=== PATIENT | female | born 1955 | race African-American/Black ===

== ENCOUNTER 2016-05-17 10:55 | Emergency (ER) | payer MEDICARE, MEDICAID ==
[2016-05-17] MEDS ORDERED: METOPROLOL TARTRATE 50 MG TABLET PO ONE (11:43)
[2016-05-17] MEDS ORDERED: OXYCODONE HCL IR 5 MG TABLET PO ONE (11:43)
--- NOTE | 2016-05-17 11:43 | ER Document Report ---
ED Blood Pressure Problem - General Chief Complaint: High Blood Pressure Stated Complaint: BLOOD PRESSURE PROBLEMS Notes: This is a 60-year-old female history of hypertension, congestive heart failure, history of coronary artery bypass graft, history of CVA who presents from home with concerns of elevated blood pressure. She states she had a dull nagging gradual onset headache this morning. Her blood pressure was 210/127. She states this is very unusual for her as her blood pressure is usually pre-well- controlled on her medications. She did take her normal pain medications morning. She states her foot has been bothering her and she was having some pain prior to checking her blood pressure. She did take her pain medicine and states that the foot is feeling improved although she still has a slight dull pain in the foot. She has been wearing a postop shoe and having wound care clinic visits due to wounds of the left foot as well as a healing burn on the right foot. No recent fever. No swelling. She denies any current headache, visual changes a difficulty with speech or swallowing. No new numbness, weakness or tingling. No chest pain, palpitations or shortness of breath. TRAVEL OUTSIDE OF THE [place] IN LAST 30 DAYS: No - Related Data Allergies/Adverse Reactions: pregabalin [From Lyrica] Allergy (Verified 12/18/15 15:13) Past Medical History - General Information source: Patient - Social History Smoking Status: Unknown if Ever Smoked Frequency of alcohol use: None Drug Abuse: None Lives with: Family, Other - Lives at home with her son Family History: CAD, Hyperlipidemia, Hypertension - Past Medical History Cardiac Medical History: Reports: Hx Congestive Heart Failure, Hx Coronary Artery Disease, Hx Heart Attack, Hx Hypercholesterolemia, Hx Hypertension, Hx Peripheral Vascular Disease Denies: Hx Atrial Fibrillation, Hx Pulmonary Embolism, Hx Heart Murmur Pulmonary Medical History: Reports: Hx Bronchitis Denies: Hx Asthma, Hx COPD, Hx Pneumonia, Hx Respiratory Failure, Hx Sleep Apnea, Hx Tuberculosis Neurological Medical History: Reports: Hx Cerebrovascular Accident - 2007. Denies: Hx Seizures Endocrine Medical History: Reports: Hx Diabetes Mellitus Type 1, Hx Diabetes Mellitus Type 2. Denies: Hx Graves' Disease, Hx Hyperthyroidism, Hx Hypothyroidism Renal/ Medical History: Denies: Hx End Stage Renal Disease, Hx Kidney Stones, Hx Ovarian Cysts, Hx Peritoneal Dialysis, Hx Pelvic Inflammatory Disease Malignancy Medical History: Denies: Hx Breast Cancer, Hx Cervical Cancer, Hx Leukemia, Hx Lung Cancer, Hx Ovarian Cancer GI Medical History: Reports: Hx Diverticulitis - diverticulosis. Denies: Hx Crohn's Disease, Hx Gastroesophageal Reflux Disease, Hx Hiatal Hernia, Hx Irritable Bowel, Hx Liver Failure, Hx Ulcer Musculoskeltal Medical History: Denies Hx Arthritis, Denies Hx Fibromyalgia, Denies Hx Multiple Sclerosis, Denies Hx Muscular Dystrophy Skin Medical History: Denies Hx MRSA Psychiatric Medical History: Denies: Hx Bipolar Disorder, Hx Dementia, Hx Depression, Hx Post Traumatic Stress Disorder, Hx Schizophrenia Traumatic Medical History: Denies: Hx Fractures Infectious Medical History: Denies: Hx HIV Past Surgical History: Reports: Hx Cardiac Surgery - bypass, Hx Coronary Artery Bypass Graft - July 31 2011, Hx Tonsillectomy, Hx Vascular Surgery. Denies: Hx Abdominal Surgery, Hx Appendectomy, Hx Bowel Surgery, Hx Cardiac Catheterization, Hx Section, Hx Cholecystectomy, Hx Colostomy, Hx Gastric Bypass Surgery, Hx Herniorrhaphy, Hx Hysterectomy, Hx Mastectomy, Hx Neurologic Surgery, Hx Nose Surgery, Hx Open Heart Surgery, Hx Oral Surgery, Hx Pacemaker, Hx Thyroid Surgery, Hx Tubal Ligation - Immunizations Immunizations up to date: No Hx Diphtheria, Pertussis, Tetanus Vaccination: Yes Hx Pneumococcal Vaccination: 02/04/11 Review of Systems - Review of Systems Constitutional: denies: Fever, Malaise Cardiovascular: denies: Chest pain, Palpitations, Syncope Respiratory: denies: Short of breath Gastrointestinal: denies: Vomiting Genitourinary: denies: Burning Musculoskeletal: See HPI Skin: denies: Rash Neurological/Psychological: denies: Numbness, Tingling Physical Exam - Vital signs Vitals: Temp Pulse Resp BP Pulse Ox 97.9 F 94 21 H 176/87 H 96 05/17/16 11:00 05/17/16 11:00 05/17/16 11:00 05/17/16 11:00 05/17/16 11:00 - General General appearance: Appears well, Alert In distress: None - Well-appearing, normally conversant, no acute distress - HEENT Head: Normocephalic Pupils: PERRL Nasal: Normal Mouth/Lips: Normal Mucous membranes: Normal Pharynx: Normal Neck: Normal - Respiratory Respiratory status: No respiratory distress Breath sounds: Normal - Cardiovascular Rhythm: Regular - Abdominal Inspection: Normal Tenderness: Nontender - Back Back: Normal - Extremities General upper extremity: Normal inspection Foot: Other - There is a small burn on the dorsum of the right foot which is dressed, no surrounding erythema, induration or tenderness; there is a wound on the right foot which is stressed, no surrounding warmth, erythema or tenderness ; lower extremity has 1+ nonpitting edema - Neurological Neuro grossly intact: Yes Orientation: AAOx4 - Psychological Associated symptoms: Normal affect - Skin Skin Temperature: Warm Skin Moisture: Dry Skin Color: Normal Course - Re-evaluation Re-evalutation: 05/17/16 14:15 152/91. Pt aymptomatic. Stable for discharge. - Vital Signs Vital signs: Temp Pulse Resp BP Pulse Ox 97.9 F 94 15 176/87 H 97 05/17/16 11:00 05/17/16 11:00 05/17/16 11:04 05/17/16 11:04 05/17/16 11:04 - Laboratory Result Diagrams: 05/17/16 11:15 Laboratory results interpreted by me: 05/17/16 12:05 Urine Protein 100 H Urine Blood SMALL H Discharge - Discharge Clinical Impression: Hypertension Qualifiers: Hypertension type: essential hypertension Qualified Code(s): I10 - Essential ( primary) hypertension Condition: Good Disposition: HOME, SELF-CARE Additional Instructions: follow up with your doctor for further reccomendations if your blood pressure is persistently elevated. Return to ER if you have high blood pressure with symptoms such as headache, chest pain, visual disturbance or any new concerns. Referrals: STEPHAN TAFOYA MD [Primary Care Provider] - Follow up as needed
[2016-05-17 12:04] LABS: ANION GAP 11 (5-19); BLOOD UREA NITROGEN 13 mg/dL (7-20); CALCIUM 9.5 mg/dL (8.4-10.2); CARBON DIOXIDE 28 mmol/L (22-30); CHLORIDE 106 mmol/L (98-107); CREATININE RESULT 0.65 mg/dL (0.52-1.25); GLUCOSE 110 mg/dL (75-110); POTASSIUM 3.7 mmol/L (3.6-5.0)
[2016-05-17 12:53] LABS: APPEARANCE,URINE CLEAR; BILIRUBIN,URINE NEGATIVE (NEGATIVE); GLUCOSE, URINE NEGATIVE (NEGATIVE); KETONES,URINE NEGATIVE (NEGATIVE); LEUKOCYTE ESTERASE,URINE NEGATIVE (NEGATIVE); NITRITE,URINE NEGATIVE (NEGATIVE); PROTEIN,URINE 100 mg/dL (NEGATIVE); URINE SPECIFIC GRAVITY 1.011; UROBILINOGEN,URINE NEGATIVE mg/dL (<2.0)
--- NOTE | 2016-05-17 13:39 | EKG REPORT ---
SEVERITY:- ABNORMAL ECG - SINUS RHYTHM PROBABLE LEFT ATRIAL ABNORMALITY LEFT VENTRICULAR HYPERTROPHY BORDERLINE PROLONGED QT INTERVAL : Confirmed by: Charlette Harding MD 17-May-2016 13:38:20
[2016-05-17 14:46] VITALS: BP 172/98
== END 2016-05-17 14:30 | disposition home or self-care (01) ==
LOC: ER 10:55
DX: I10 Essential (primary) hypertension (principal); R60.0 Localized edema; Z79.899 Other long term (current) drug therapy; Z95.1 Presence of aortocoronary bypass graft; Z86.73 Personal history of transient ischemic attack (TIA), and cerebral infarction without residual deficits; Z88.6 Allergy status to analgesic agent
CPT/HCPCS: 93005; 99284; 36415; 80048; 81001; 84484; 71020; 93010; A9270 ×2

== ENCOUNTER 2016-06-12 12:05 | Emergency (ER) | payer MEDICARE, MEDICAID ==
[2016-06-12] MEDS ORDERED: ONDANSETRON 4 MG TAB.RAPDIS PO ONE (12:16)
--- NOTE | 2016-06-12 12:17 | ER Document Report ---
ED Medical Screen (RME) - General Stated Complaint: NAUSEA,LEG PAIN,LIGHT HEADED Mode of Arrival: Wheelchair Information source: Patient Notes: Patient states that her feet got tangled up while she was at her doctor's office causing her to fall. Patient states that she fell landing on her face. No loss of consciousness. Patient does report nausea and vomiting 2. Patient states she was at her doctor's office for her routine checkup. hx: Hypertension, diabetes I have greeted and performed a rapid initial assessment of this patient. A comprehensive ED assessment and evaluation of the patient, analysis of test results and completion of the medical decision making process will be conducted by additional ED providers. TRAVEL OUTSIDE OF THE [place] IN LAST 30 DAYS: No - Related Data Allergies/Adverse Reactions: pregabalin [From Lyrica] Allergy (Verified 06/12/16 12:16) Past Medical History - Past Medical History Cardiac Medical History: Reports: Hx Congestive Heart Failure, Hx Coronary Artery Disease, Hx Heart Attack, Hx Hypercholesterolemia, Hx Hypertension, Hx Peripheral Vascular Disease Denies: Hx Atrial Fibrillation, Hx Pulmonary Embolism, Hx Heart Murmur Pulmonary Medical History: Reports: Hx Bronchitis Denies: Hx Asthma, Hx COPD, Hx Pneumonia, Hx Respiratory Failure, Hx Sleep Apnea, Hx Tuberculosis Neurological Medical History: Reports: Hx Cerebrovascular Accident - 2007. Denies: Hx Seizures Endocrine Medical History: Reports: Hx Diabetes Mellitus Type 1, Hx Diabetes Mellitus Type 2. Denies: Hx Graves' Disease, Hx Hyperthyroidism, Hx Hypothyroidism Renal/ Medical History: Denies: Hx End Stage Renal Disease, Hx Kidney Stones, Hx Ovarian Cysts, Hx Peritoneal Dialysis, Hx Pelvic Inflammatory Disease Malignancy Medical History: Denies: Hx Breast Cancer, Hx Cervical Cancer, Hx Leukemia, Hx Lung Cancer, Hx Ovarian Cancer GI Medical History: Reports: Hx Diverticulitis - diverticulosis. Denies: Hx Crohn's Disease, Hx Gastroesophageal Reflux Disease, Hx Hiatal Hernia, Hx Irritable Bowel, Hx Liver Failure, Hx Ulcer Musculoskeltal Medical History: Denies Hx Arthritis, Denies Hx Fibromyalgia, Denies Hx Multiple Sclerosis, Denies Hx Muscular Dystrophy Skin Medical History: Denies Hx MRSA Psychiatric Medical History: Denies: Hx Bipolar Disorder, Hx Dementia, Hx Depression, Hx Post Traumatic Stress Disorder, Hx Schizophrenia Traumatic Medical History: Denies: Hx Fractures Infectious Medical History: Denies: Hx HIV Past Surgical History: Reports: Hx Cardiac Surgery - bypass, Hx Coronary Artery Bypass Graft - July 31 2011, Hx Tonsillectomy, Hx Vascular Surgery. Denies: Hx Abdominal Surgery, Hx Appendectomy, Hx Bowel Surgery, Hx Cardiac Catheterization, Hx Section, Hx Cholecystectomy, Hx Colostomy, Hx Gastric Bypass Surgery, Hx Herniorrhaphy, Hx Hysterectomy, Hx Mastectomy, Hx Neurologic Surgery, Hx Nose Surgery, Hx Open Heart Surgery, Hx Oral Surgery, Hx Pacemaker, Hx Thyroid Surgery, Hx Tubal Ligation - Immunizations Immunizations up to date: No Hx Diphtheria, Pertussis, Tetanus Vaccination: Yes Physical Exam - Neurological Amber Coma Scale Eye Opening: Spontaneous Amber Coma Scale Verbal: Oriented [place] Coma Scale Motor: Obeys Commands [place] Coma Scale Total: 15
--- NOTE | 2016-06-12 15:00 | ER Document Report ---
HPI - HPI Patient complains to provider of: fall Pain Level: 4 Context: Patient is a 60 year old female referred over by Dr. Tafoya for CT head. Patient was in his office for routine follow up and suffered a mechanical fall. She has a boot on her left foot when she tripped and landed on her left side with trauma to the left side of her face. She admits to headache, vomiting x2. Denies AMS, confusion, LOC, vision changes PMH: HTN< HLD< DM, CAD with ID x2 requiring CABG x4, PVD PSH: CABG x4, vascular SH: former occ smoker, denies etoh or drug use PCP: Zuhair - REPRODUCTIVE Reproductive: DENIES: : - DERM Skin Color: Normal Past Medical History - General Information source: Patient - Social History Smoking Status: Current Some Day Smoker Chew tobacco use (# tins/day): No Frequency of alcohol use: None Drug Abuse: None Family History: CAD, Hyperlipidemia, Hypertension Patient has suicidal ideation: No Patient has homicidal ideation: No - Past Medical History Cardiac Medical History: Reports: Hx Congestive Heart Failure, Hx Coronary Artery Disease, Hx Heart Attack, Hx Hypercholesterolemia, Hx Hypertension, Hx Peripheral Vascular Disease Denies: Hx Atrial Fibrillation, Hx Pulmonary Embolism, Hx Heart Murmur Pulmonary Medical History: Reports: Hx Bronchitis Denies: Hx Asthma, Hx COPD, Hx Pneumonia, Hx Respiratory Failure, Hx Sleep Apnea, Hx Tuberculosis Neurological Medical History: Reports: Hx Cerebrovascular Accident - 2007. Denies: Hx Seizures Endocrine Medical History: Reports: Hx Diabetes Mellitus Type 1, Hx Diabetes Mellitus Type 2. Denies: Hx Graves' Disease, Hx Hyperthyroidism, Hx Hypothyroidism Renal/ Medical History: Denies: Hx End Stage Renal Disease, Hx Kidney Stones, Hx Ovarian Cysts, Hx Peritoneal Dialysis, Hx Pelvic Inflammatory Disease Malignancy Medical History: Denies: Hx Breast Cancer, Hx Cervical Cancer, Hx Leukemia, Hx Lung Cancer, Hx Ovarian Cancer GI Medical History: Reports: Hx Diverticulitis - diverticulosis. Denies: Hx Crohn's Disease, Hx Gastroesophageal Reflux Disease, Hx Hiatal Hernia, Hx Irritable Bowel, Hx Liver Failure, Hx Ulcer Musculoskeltal Medical History: Denies Hx Arthritis, Denies Hx Fibromyalgia, Denies Hx Multiple Sclerosis, Denies Hx Muscular Dystrophy Skin Medical History: Denies Hx MRSA Psychiatric Medical History: Denies: Hx Bipolar Disorder, Hx Dementia, Hx Depression, Hx Post Traumatic Stress Disorder, Hx Schizophrenia Traumatic Medical History: Denies: Hx Fractures Infectious Medical History: Denies: Hx HIV Past Surgical History: Reports: Hx Cardiac Surgery - bypass, Hx Coronary Artery Bypass Graft - July 31 2011, Hx Tonsillectomy, Hx Vascular Surgery. Denies: Hx Abdominal Surgery, Hx Appendectomy, Hx Bowel Surgery, Hx Cardiac Catheterization, Hx Section, Hx Cholecystectomy, Hx Colostomy, Hx Gastric Bypass Surgery, Hx Herniorrhaphy, Hx Hysterectomy, Hx Mastectomy, Hx Neurologic Surgery, Hx Nose Surgery, Hx Open Heart Surgery, Hx Oral Surgery, Hx Pacemaker, Hx Thyroid Surgery, Hx Tubal Ligation - Immunizations Immunizations up to date: No Hx Diphtheria, Pertussis, Tetanus Vaccination: Yes Hx Pneumococcal Vaccination: 02/04/11 Vertical Provider Document - CONSTITUTIONAL Agree With Documented VS: Yes Exam Limitations: No Limitations General Appearance: WD/WN, No Apparent Distress, Obese - INFECTION CONTROL TRAVEL OUTSIDE OF THE [place] IN LAST 30 DAYS: No - HEENT HEENT: Atraumatic, Normal ENT Exam, Normocephalic - NECK Neck: Normal Inspection, Other - full ROM , no pain to palpation - RESPIRATORY Respiratory: Breath Sounds Normal, No Respiratory Distress, Chest Non-Tender. negative: Rales, Rhonchi, Wheezing O2 Sat by Pulse Oximetry: 90 - CARDIOVASCULAR Cardiovascular: Regular Rate, Regular Rhythm, No Murmur Pulses: Normal: Radial - MUSCULOSKELETAL/EXTREMETIES Notes: boot left foot for chronic ulcer - NEURO Level of Consciousness: Awake - GCS x15, Alert, Appropriate Motor/Sensory: No Motor Deficit, No Sensory Deficit Course - Re-evaluation Re-evalutation: 06/12/16 15:13 Patient is a 60-year-old female who is hemodynamically stable, no acute distress and afebrile. CT the head did not reveal intracranial hemorrhage, fracture. Patient is alert and oriented 4 and not at all 3. Low index or suspicion for head bleed. Discharge patient home and can follow-up with Dr. Tafoya as scheduled - Vital Signs Vital signs: Temp Pulse Resp BP Pulse Ox 97.6 F 63 20 152/80 H 90 L 06/12/16 12:15 06/12/16 12:15 06/12/16 12:15 06/12/16 12:15 06/12/16 12:15 - Diagnostic Test Radiology reviewed: Reports reviewed Discharge - Discharge Clinical Impression: Headache Qualifiers: Headache type: unspecified Headache chronicity pattern: acute headache Intractability: not intractable Qualified Code(s): R51 - Headache Condition: Good Disposition: HOME, SELF-CARE Additional Instructions: Concussion You have suffered a concussion -- a temporary loss of certain brain functions due to a mild brain injury. The recovery is usually rapid and complete. The temporary problems occurring with a concussion can include loss of consciousness, dizziness, nausea, vomiting, and confusion. Repeat concussions can cause brain damage. In the future, avoid activities that will cause a blow to your head. Wear a helmet for sports such as snowboarding, biking, or skating. It's important that someone be with you for the first 24 hours. During this time, do not exercise or drive a vehicle. Do not take any pain medication stronger than acetaminophen unless prescribed by the physician. Any significant changes should be reported immediately to the physician. Signs of a problem may include: (1) Mental confusion (2) Incoordination or staggering (3) Repeated or forceful vomiting (4) Clear or bloody drainage from ear, mouth, or nose (5) Severe headache, not relieved by acetaminophen or prescribed pain medication (6) Failure to improve in 24 hours Acetaminophen Acetaminophen may be taken for pain relief or fever control. It's much safer than aspirin, offering a wider range of "safe" dosages. It is safe during . Some brand names are Tylenol, Panadol, Datril, Anacin 3, Tempra, and Liquiprin. Acetaminophen can be repeated every four hours. The following are maximum recommended dosages: WEIGHT Dose Drops Elixir Chewable( 80mg) (LBS.) drprs=droppers tsp=teaspoon 6 40 mg .4 ml (1/2) 6-11 80 mg .8 ml (full) 1/2 tsp 1 tab 12-16 120 mg 1 1/2 drprs 3/4 tsp 1 1/2 tabs 17-23 160 mg 2 drprs 1 tsp 2 tabs 24-30 240 mg 3 drprs 1 1/2 tsp 3 tabs 30-35 320 mg 2 tsp 4 tabs 36-41 360 mg 2 1/4 tsp 4 1 /2 tabs 42-47 400 mg 2 1/2 tsp 5 tabs 48-53 480 mg 3 tsp 6 tabs 54-59 520 mg 3 1/4 tsp 6 1 /2 tabs 60-64 560 mg 3 1/2 tsp 7 tabs 65-70 600 mg 3 3/4 tsp 7 1 /2 tabs 71-76 640 mg 4 tsp 8 tabs 77-82 720 mg 4 1/2 tsp 9 tabs 83-88 800 mg 5 tsp 10 tabs >89 pounds or adults 650 mg to 900 mg Acetaminophen can be repeated every four hours. Maximum daily dose not to exceed 4000 mg. These maximum recommended dosages are slightly higher than the dosages written on the product container, but these dosages are very safe and well below the toxic dosage for acetaminophen. Forms: Elevated Blood Pressure Referrals: STEPHAN TAFOYA MD [Primary Care Provider] - Follow up as needed
[2016-06-12 15:30] VITALS: BP 144/77
== END 2016-06-12 15:31 | disposition home or self-care (01) ==
LOC: ER 12:05
DX: R51 Headache (principal); R11.10 Vomiting, unspecified; W19.XXXA Unspecified fall, initial encounter; I10 Essential (primary) hypertension; E11.9 Type 2 diabetes mellitus without complications; I25.10 Atherosclerotic heart disease of native coronary artery without angina pectoris; I25.2 Old myocardial infarction; F17.210 Nicotine dependence, cigarettes, uncomplicated
CPT/HCPCS: 99284; 70450; A9270; S0119

== ENCOUNTER 2016-06-14 10:51 | Emergency (ER) | payer MEDICARE, MEDICAID ==
[2016-06-14 13:12] LABS: ABSOLUTE EOSINOPHILS # (AUTO) 0.1 10^3/uL (0.0-0.6); ABSOLUTE LYMPHOCYTES (AUTO) 1.9 10^3/uL (0.5-4.7); ABSOLUTE MONOCYTES (AUTO) 0.7 10^3/uL (0.1-1.4); ABSOLUTE NEUT (AUTO) 4.9 10^3/uL (1.7-8.2); BASOPHILS % (AUTO) 0.5 % (0-2); EOSINOPHILS % (AUTO) 1.4 % (0-6); HEMATOCRIT 32.1 % (36.0-47.0); HEMOGLOBIN 10.3 g/dL (12.0-15.5); HGB HCT DIFFERENCE -1.2; LYMPHOCYTES % (AUTO) 24.6 % (13-45); MEAN CORPUSCULAR VOLUME 87 fl (80-97); MONOCYTES % (AUTO) 9.3 % (3-13); RED BLOOD COUNT 3.67 10^6/uL (3.72-5.28); RED CELL DISTRIBUTION WIDTH 17.4 % (11.5-14.0); SEGMENTED NEUTROPHILS % (AUTO) 64.2 % (42-78); WHITE BLOOD COUNT 7.7 10^3/uL (4.0-10.5)
[2016-06-14 13:16] LABS: ALANINE AMINOTRANSFERASE 28 U/L (9-52); ALBUMIN 3.8 g/dL (3.5-5.0); ALKALINE PHOSPHATASE 214 U/L (38-126); ANION GAP 10 (5-19); ASPARTATE AMINO TRANSFERASE 26 U/L (14-36); BILIRUBIN,TOTAL 0.9 mg/dL (0.2-1.3); BLOOD UREA NITROGEN 23 mg/dL (7-20); CALCIUM 9.5 mg/dL (8.4-10.2); CARBON DIOXIDE 26 mmol/L (22-30); CHLORIDE 108 mmol/L (98-107); CREATININE RESULT 1.08 mg/dL (0.52-1.25); GLUCOSE 207 mg/dL (75-110); POTASSIUM 4.8 mmol/L (3.6-5.0); SODIUM 143.5 mmol/L (137-145); TOTAL PROTEIN 8.1 g/dL (6.3-8.2)
[2016-06-14 13:28] LABS: TROPONIN I < 0.012 ng/mL
--- NOTE | 2016-06-14 13:44 | EKG REPORT ---
SEVERITY:- BORDERLINE ECG - SINUS RHYTHM LEFT AXIS DEVIATION BORDERLINE R WAVE PROGRESSION, ANTERIOR LEADS : Confirmed by: Yobany Marino MD 14-Jun-2016 13:43:59
[2016-06-14] MEDS ORDERED: FUROSEMIDE 40 MG TABLET PO ONE (15:01)
--- NOTE | 2016-06-14 15:05 | ER Document Report ---
ED General - General Chief Complaint: Shortness Of Breath Stated Complaint: DIFFICULTY BREATHING TRAVEL OUTSIDE OF THE [place] IN LAST 30 DAYS: No - HPI Patient complains to provider of: shortness of breath Notes: Patient presents today from wound care clinic as a becoming short of breath while in the clinic. Patient had normal vital signs upon transport however was given 2 L of oxygen nasal cannula. Patient was given a breathing treatment prior to arrival. Upon evaluate the patient patient is in no obvious distress patient states has a history of CHF states that the doctor ever no longer clinic says her lungs were full of fluid. Patient states she has been compliant with her medications. Denies fevers chills nausea vomiting diarrhea. - Related Data Allergies/Adverse Reactions: pregabalin [From Lyrica] Allergy (Verified 06/12/16 12:16) Past Medical History - Social History Smoking Status: Unknown if Ever Smoked Family History: CAD, Hyperlipidemia, Hypertension - Past Medical History Cardiac Medical History: Reports: Hx Congestive Heart Failure, Hx Coronary Artery Disease, Hx Heart Attack, Hx Hypercholesterolemia, Hx Hypertension, Hx Peripheral Vascular Disease Denies: Hx Atrial Fibrillation, Hx Pulmonary Embolism, Hx Heart Murmur Pulmonary Medical History: Reports: Hx Bronchitis Denies: Hx Asthma, Hx COPD, Hx Pneumonia, Hx Respiratory Failure, Hx Sleep Apnea, Hx Tuberculosis Neurological Medical History: Reports: Hx Cerebrovascular Accident - 2007. Denies: Hx Seizures Endocrine Medical History: Reports: Hx Diabetes Mellitus Type 1, Hx Diabetes Mellitus Type 2. Denies: Hx Graves' Disease, Hx Hyperthyroidism, Hx Hypothyroidism Renal/ Medical History: Denies: Hx End Stage Renal Disease, Hx Kidney Stones, Hx Ovarian Cysts, Hx Peritoneal Dialysis, Hx Pelvic Inflammatory Disease Malignancy Medical History: Denies: Hx Breast Cancer, Hx Cervical Cancer, Hx Leukemia, Hx Lung Cancer, Hx Ovarian Cancer GI Medical History: Reports: Hx Diverticulitis - diverticulosis. Denies: Hx Crohn's Disease, Hx Gastroesophageal Reflux Disease, Hx Hiatal Hernia, Hx Irritable Bowel, Hx Liver Failure, Hx Ulcer Musculoskeltal Medical History: Denies Hx Arthritis, Denies Hx Fibromyalgia, Denies Hx Multiple Sclerosis, Denies Hx Muscular Dystrophy Skin Medical History: Denies Hx MRSA Psychiatric Medical History: Denies: Hx Bipolar Disorder, Hx Dementia, Hx Depression, Hx Post Traumatic Stress Disorder, Hx Schizophrenia Traumatic Medical History: Denies: Hx Fractures Infectious Medical History: Denies: Hx HIV Past Surgical History: Reports: Hx Cardiac Surgery - bypass, Hx Coronary Artery Bypass Graft - July 31 2011, Hx Tonsillectomy, Hx Vascular Surgery. Denies: Hx Abdominal Surgery, Hx Appendectomy, Hx Bowel Surgery, Hx Cardiac Catheterization, Hx Section, Hx Cholecystectomy, Hx Colostomy, Hx Gastric Bypass Surgery, Hx Herniorrhaphy, Hx Hysterectomy, Hx Mastectomy, Hx Neurologic Surgery, Hx Nose Surgery, Hx Open Heart Surgery, Hx Oral Surgery, Hx Pacemaker, Hx Thyroid Surgery, Hx Tubal Ligation - Immunizations Immunizations up to date: No Hx Diphtheria, Pertussis, Tetanus Vaccination: Yes Hx Pneumococcal Vaccination: 02/04/11 Review of Systems - Review of Systems Constitutional: No symptoms reported EENT: No symptoms reported Cardiovascular: No symptoms reported Respiratory: Short of breath Gastrointestinal: No symptoms reported Genitourinary: No symptoms reported Female Genitourinary: No symptoms reported Musculoskeletal: No symptoms reported Skin: No symptoms reported Hematologic/Lymphatic: No symptoms reported Neurological/Psychological: No symptoms reported -: Yes All other systems reviewed and negative Physical Exam - Vital signs Vitals: Temp Pulse Resp BP Pulse Ox 97.6 F 66 18 157/86 H 95 06/14/16 11:44 06/14/16 11:44 06/14/16 11:44 06/14/16 11:44 06/14/16 11:44 Interpretation: Normal - General General appearance: Appears well, Alert - HEENT Head: Normocephalic, Atraumatic Eyes: Normal Pupils: PERRL - Respiratory Respiratory status: No respiratory distress Chest status: Nontender Breath sounds: Normal Chest palpation: Normal - Cardiovascular Rhythm: Regular Heart sounds: Normal auscultation Murmur: No - Abdominal Inspection: Normal Distension: No distension Bowel sounds: Normal Tenderness: Nontender Organomegaly: No organomegaly - Back Back: Normal, Nontender - Extremities General upper extremity: Normal inspection, Nontender, Normal color, Normal ROM , Normal temperature General lower extremity: Nontender, Normal color, Normal ROM, Normal temperature , Normal weight bearing. No: Normal inspection - Wounds to bilateral feet dressed no blushing the dressings, Mark's sign - Neurological Neuro grossly intact: Yes Cognition: Normal Orientation: AAOx4 Amber Coma Scale Eye Opening: Spontaneous [place] Coma Scale Verbal: Oriented Amber Coma Scale Motor: Obeys Commands Amber Coma Scale Total: 15 Speech: Normal Motor strength normal: LUE, RUE, LLE, RLE Sensory: Normal - Psychological Associated symptoms: Normal affect, Normal mood - Skin Skin Temperature: Warm Skin Moisture: Dry Skin Color: Normal Course - Re-evaluation Re-evalutation: 06/14/16 19:01 Patient's BNP lab work chest x-ray shows signs of no acute failure. Discussed with PCP will given information dose of Lasix tonight he she is to follow-up in his office later on the week. Patient's vital signs remained stable will discharge home - Vital Signs Vital signs: Temp Pulse Resp BP Pulse Ox 97.8 F 62 15 143/72 H 95 06/14/16 15:18 06/14/16 15:18 06/14/16 15:18 06/14/16 15:18 06/14/16 15:18 - Laboratory Result Diagrams: 06/14/16 12:40 06/14/16 12:40 Laboratory results interpreted by me: 06/14/16 06/14/16 06/14/16 12:40 12:40 12:40 RBC 3.67 L Hgb 10.3 L Hct 32.1 L RDW 17.4 H Chloride 108 H BUN 23 H Est GFR (Non-Af Amer) 52 L Glucose 207 H Alkaline Phosphatase 214 H NT-Pro-B Natriuret Pep 1340 H Discharge - Discharge Clinical Impression: Dyspnea Qualifiers: Dyspnea type: unspecified Qualified Code(s): R06.00 - Dyspnea, unspecified Condition: Good Disposition: HOME, SELF-CARE Instructions: Dyspnea, Nonspecific ([facility]) Additional Instructions: Follow-up with your primary care physician in the next 3-5 days. Please continue your medications. Your chest x-ray laboratory today shows no signs of acute CHF. Referrals: STEPHAN TAFOYA MD [Primary Care Provider] - Follow up in 3-5 days
[2016-06-14 15:32] VITALS: BP 143/72
== END 2016-06-14 15:18 | disposition home or self-care (01) ==
LOC: ER 10:51
DX: R06.02 Shortness of breath (principal); I25.10 Atherosclerotic heart disease of native coronary artery without angina pectoris; I25.2 Old myocardial infarction; I10 Essential (primary) hypertension; E11.9 Type 2 diabetes mellitus without complications; Z95.1 Presence of aortocoronary bypass graft; Z86.73 Personal history of transient ischemic attack (TIA), and cerebral infarction without residual deficits; Z79.899 Other long term (current) drug therapy; Z88.6 Allergy status to analgesic agent
CPT/HCPCS: 93005; 99285; 36415; 83735; 85025; 80053; 84484; 83880; 71020; 93010; A9270

== ENCOUNTER → 2016-07-19 | Outpatient (CLI) | payer MEDICARE, MEDICAID | LOC: OD 11:54 | PROVIDERS: ATTEND Nurse Practitioner Family | DX: E11.621 Type 2 diabetes mellitus with foot ulcer (principal); L97.422 Non-pressure chronic ulcer of left heel and midfoot with fat layer exposed | CPT/HCPCS: 36415; 83036 ==

== ENCOUNTER 2016-07-23 05:52 | Inpatient (IN) | payer MEDICARE, MEDICAID ==
[2016-07-23] MEDS ORDERED: METHYLPREDNISOLONE INJ 125 MG/2 ML SDV IV ONE ×2 (05:57→12:30)
[2016-07-23] MEDS ORDERED: IPRATROPIUM/ALBUTEROL 0.5-2.5 MG/3 ML AMPUL NEB ONE (05:57)
[2016-07-23] MEDS ORDERED: MAGNESIUM SULFATE/D5W 100 ML IV ONE (06:13)
[2016-07-23] MEDS: ALBUTEROL SULFATE 0.083% NEB 2.5 MG/3 ML AMPUL NEB SCH ×2 (06:18→06:25)
[2016-07-23 06:36] LABS: ABSOLUTE BASOPHILS # (AUTO) 0.1 10^3/uL (0.0-0.2); ABSOLUTE LYMPHOCYTES (AUTO) 1.3 10^3/uL (0.5-4.7); ABSOLUTE MONOCYTES (AUTO) 1.4 10^3/uL (0.1-1.4); ABSOLUTE NEUT (AUTO) 12.9 10^3/uL (1.7-8.2); BASOPHILS % (AUTO) 0.4 % (0-2); EOSINOPHILS % (AUTO) 0.2 % (0-6); HEMATOCRIT 30.8 % (36.0-47.0); HEMOGLOBIN 10.1 g/dL (12.0-15.5); HGB HCT DIFFERENCE -0.5; LYMPHOCYTES % (AUTO) 8.1 % (13-45); MEAN CORPUSCULAR HEMOGLOBIN 27.5 pg (27.0-33.4); MEAN CORPUSCULAR HGB CONC 32.6 g/dL (32.0-36.0); MEAN CORPUSCULAR VOLUME 84 fl (80-97); RED BLOOD COUNT 3.66 10^6/uL (3.72-5.28); RED CELL DISTRIBUTION WIDTH 17.7 % (11.5-14.0); SEGMENTED NEUTROPHILS % (AUTO) 82.3 % (42-78); WHITE BLOOD COUNT 15.6 10^3/uL (4.0-10.5)
--- NOTE | 2016-07-23 06:42 | ER Document Report ---
ED General - General Chief Complaint: Shortness Of Breath Stated Complaint: SHORTNESS OF BREATH Mode of Arrival: Medic Information source: Patient, [facility] Records Notes: This is a 60-year-old -[place] female who presents via EMS with worsening shortness of breath for the past 2 or 3 days. She states that she has had increased cough and wheeze. She does not use home oxygen and does not have home nebulizers. She did just quit smoking 3 months ago. Per EMS her room air sats were 83 upon their arrival. She denies any fevers or chills or sputum production. She states she has had pneumonia before but that was many many years ago. TRAVEL OUTSIDE OF THE [place] IN LAST 30 DAYS: No - Related Data Allergies/Adverse Reactions: pregabalin [From Lyrica] Allergy (Verified 06/12/16 12:16) Home Medications: Current Home Medications Diltiazem HCl [Cartia Xt] 120 mg PO DAILY 07/23/16 [History] Past Medical History - General Information source: Patient, [facility] Records - Social History Smoking Status: Former Smoker - quit 3 months ago Family History: CAD, Hyperlipidemia, Hypertension - Past Medical History Cardiac Medical History: Reports: Hx Congestive Heart Failure, Hx Coronary Artery Disease, Hx Heart Attack, Hx Hypercholesterolemia, Hx Hypertension, Hx Peripheral Vascular Disease Denies: Hx Atrial Fibrillation, Hx Pulmonary Embolism, Hx Heart Murmur Pulmonary Medical History: Reports: Hx Bronchitis Denies: Hx Asthma, Hx COPD, Hx Pneumonia, Hx Respiratory Failure, Hx Sleep Apnea, Hx Tuberculosis Neurological Medical History: Reports: Hx Cerebrovascular Accident - 2007. Denies: Hx Seizures Endocrine Medical History: Reports: Hx Diabetes Mellitus Type 1, Hx Diabetes Mellitus Type 2. Denies: Hx Graves' Disease, Hx Hyperthyroidism, Hx Hypothyroidism Renal/ Medical History: Denies: Hx End Stage Renal Disease, Hx Kidney Stones, Hx Ovarian Cysts, Hx Peritoneal Dialysis, Hx Pelvic Inflammatory Disease Malignancy Medical History: Denies: Hx Breast Cancer, Hx Cervical Cancer, Hx Leukemia, Hx Lung Cancer, Hx Ovarian Cancer GI Medical History: Reports: Hx Diverticulitis - diverticulosis. Denies: Hx Crohn's Disease, Hx Gastroesophageal Reflux Disease, Hx Hiatal Hernia, Hx Irritable Bowel, Hx Liver Failure, Hx Ulcer Musculoskeltal Medical History: Denies Hx Arthritis, Denies Hx Fibromyalgia, Denies Hx Multiple Sclerosis, Denies Hx Muscular Dystrophy Skin Medical History: Denies Hx MRSA Psychiatric Medical History: Denies: Hx Bipolar Disorder, Hx Dementia, Hx Depression, Hx Post Traumatic Stress Disorder, Hx Schizophrenia Traumatic Medical History: Denies: Hx Fractures Infectious Medical History: Denies: Hx HIV Past Surgical History: Reports: Hx Cardiac Surgery - bypass, Hx Coronary Artery Bypass Graft - July 31 2011, Hx Tonsillectomy, Hx Vascular Surgery. Denies: Hx Abdominal Surgery, Hx Appendectomy, Hx Bowel Surgery, Hx Cardiac Catheterization, Hx Section, Hx Cholecystectomy, Hx Colostomy, Hx Gastric Bypass Surgery, Hx Herniorrhaphy, Hx Hysterectomy, Hx Mastectomy, Hx Neurologic Surgery, Hx Nose Surgery, Hx Open Heart Surgery, Hx Oral Surgery, Hx Pacemaker, Hx Thyroid Surgery, Hx Tubal Ligation - Immunizations Immunizations up to date: No Hx Diphtheria, Pertussis, Tetanus Vaccination: Yes Hx Pneumococcal Vaccination: 02/04/11 Review of Systems - Review of Systems Notes: REVIEW OF SYSTEMS: CONSTITUTIONAL : Denies fever, chills, or sweats. EENT: Denies eye, ear, throat, or mouth pain or symptoms. Denies nasal or sinus congestion. CARDIOVASCULAR: Patient has had occasional chest pain most recently yesterday which was pressure. She denies chest pain today and denies chest pain at this time. RESPIRATORY: As per history of present illness GASTROINTESTINAL: Denies abdominal pain. Denies nausea, vomiting, or diarrhea. GENITOURINARY: Denies difficulty urinating, painful urination, burning, frequency, or blood in urine. MUSCULOSKELETAL: Lower back pain SKIN: Denies rash or skin lesions. HEMATOLOGIC : Denies easy bruising or bleeding. LYMPHATIC: Denies swollen, enlarged glands. NEUROLOGICAL: Denies altered mental status or loss of consciousness. Denies headache. PSYCHIATRIC: Denies anxiety or stress or depression. ALL OTHER SYSTEMS REVIEWED AND NEGATIVE. Physical Exam - Vital signs Vitals: Pulse Ox 89 L 07/23/16 05:56 - Notes Notes: PHYSICAL EXAMINATION: GENERAL: Obese adult female, pleasant and conversant. Currently completing nebulizer treatment and in no acute distress. HEAD: Atraumatic, normocephalic. EYES: Pupils equal round and reactive to light, extraocular movements intact, sclera anicteric, conjunctiva are normal. ENT: nares patent, oropharynx clear without exudates. Moist mucous membranes. NECK: Normal range of motion, supple without lymphadenopathy. +JVD LUNGS: Diffuse bilateral expiratory wheezes. Diminished bibasilar breath sounds. No rhonchi appreciated. HEART: Tachycardic rate, Regular rhythm without murmurs ABDOMEN: Soft, obese, nontender, normoactive bowel sounds. No guarding, no rebound. No masses appreciated. EXTREMITIES: NEUROLOGICAL: Cranial nerves grossly intact. Normal speech. No gross focal motor or sensory deficits appreciated. PSYCH: Normal mood, normal affect. SKIN: Course - Re-evaluation Re-evalutation: 07/23/16 07:01 Patient reevaluated after third neb. She has improved air movement bilaterally with decreased wheezing. However she is still in mild to moderate respiratory distress and is complaining of increasing abdominal and back pain. She has pain medication ordered and will obtain a CT angiogram to rule out PE versus dissection. 07/23/16 07:20 At this point still awaiting portable chest x-ray. Apparently the machine had a malfunction in the room. 07/23/16 09:37 CT angiogram reveals no evidence of aortic dissection, aneurysm, or PE. There is evidence of bilateral airspace disease. We'll treat for pneumonia and CHF exacerbation. Discussed with who is covering for and will admit to the IMCU - Vital Signs Vital signs: Temp Pulse Resp BP Pulse Ox 98.2 F 103 H 18 153/77 H 94 07/23/16 13:01 07/23/16 14:24 07/23/16 14:24 07/23/16 13:01 07/23/16 14:24 - Laboratory Result Diagrams: 07/23/16 06:04 07/23/16 07:11 Laboratory results interpreted by me: 07/23/16 07/23/16 07/23/16 06:04 06:16 07:11 WBC 15.6 H RBC 3.66 L Hgb 10.1 L Hct 30.8 L RDW 17.7 H Seg Neutrophils % 82.3 H Lymphocytes % 8.1 L Absolute Neutrophils 12.9 H Glucose 343 H Total Bilirubin 1.6 H Alkaline Phosphatase 272 H NT-Pro-B Natriuret Pep Albumin 3.4 L Urine Protein 100 H Urine Glucose (UA) >=500 H Urine Ketones 20 H Urine Blood SMALL H Urine Urobilinogen 2.0 H 07/23/16 07:11 WBC RBC Hgb Hct RDW Seg Neutrophils % Lymphocytes % Absolute Neutrophils Glucose Total Bilirubin Alkaline Phosphatase NT-Pro-B Natriuret Pep 5000 H Albumin Urine Protein Urine Glucose (UA) Urine Ketones Urine Blood Urine Urobilinogen - EKG Interpretation by Me Additional EKG results interpreted by me: 07/23/16 06:41 EKG at 629 demonstrates sinus tachycardia. She does have some flattened T waves in V5 and V6. There is no ST elevation or depression. Otherwise no significant change from prior. Critical Care Note - Critical Care Note Total time excluding time spent on procedures (mins): 40 - minutes of critical care time spent in direct contact evaluating and reevaluating the patient, treating symptoms, reviewing labs and studies and speaking with family and consultants excluding any procedures Discharge - Discharge Clinical Impression: Congestive heart failure Qualifiers: Congestive heart failure type: unspecified congestive heart failure type Congestive heart failure chronicity: acute on chronic Qualified Code(s): I50.9 - Heart failure, unspecified Pneumonia Qualifiers: Pneumonia type: due to unspecified organism Laterality: bilateral Lung location : lower lobe of lung Qualified Code(s): J18.9 - Pneumonia, unspecified organism Hyperglycemia due to type 2 diabetes mellitus Qualifiers: Diabetes mellitus snf insulin use: unspecified snf insulin use status Qualified Code(s): E11.65 - Type 2 diabetes mellitus with hyperglycemia Condition: Stable Disposition: ADMITTED INPATIENT Admitting Provider: [facility] Admitted: [facility]
[2016-07-23] MEDS ORDERED: ONDANSETRON HCL INJ/PF 4 MG/2 ML SDV IV ONE (06:45)
[2016-07-23] MEDS ORDERED: MORPHINE SULFATE 10 MG/ML INJ IV ONE ×2 (06:45→06:54)
[2016-07-23] MEDS ORDERED: LEVALBUTEROL HCL NEB 1.25 MG/3 ML AMPUL NEB ONE (07:00)
[2016-07-23 07:10] LABS: APPEARANCE,URINE SLIGHTLY-CLOUDY; BILIRUBIN,URINE NEGATIVE (NEGATIVE); GLUCOSE, URINE >=500 mg/dL (NEGATIVE); KETONES,URINE 20 mg/dL (NEGATIVE); LEUKOCYTE ESTERASE,URINE NEGATIVE (NEGATIVE); NITRITE,URINE NEGATIVE (NEGATIVE); PROTEIN,URINE 100 mg/dL (NEGATIVE); URINE SPECIFIC GRAVITY 1.009
[2016-07-23 07:52] LABS: ALANINE AMINOTRANSFERASE 22 U/L (9-52); ALBUMIN 3.4 g/dL (3.5-5.0); ALKALINE PHOSPHATASE 272 U/L (38-126); ANION GAP 14 (5-19); ASPARTATE AMINO TRANSFERASE 17 U/L (14-36); BILIRUBIN,TOTAL 1.6 mg/dL (0.2-1.3); BLOOD UREA NITROGEN 7 mg/dL (7-20); CARBON DIOXIDE 26 mmol/L (22-30); CHLORIDE 99 mmol/L (98-107); CREATINE KINASE 46 U/L (30-135); CREATININE RESULT 0.64 mg/dL (0.52-1.25); GLUCOSE 343 mg/dL (75-110); MAGNESIUM 1.9 mg/dL (1.6-2.3); POTASSIUM 4.2 mmol/L (3.6-5.0); SODIUM 139.4 mmol/L (137-145); TOTAL PROTEIN 7.8 g/dL (6.3-8.2)
[2016-07-23] MEDS ORDERED: CEFTRIAXONE 1 GM/D5W RTU 50 ML IV ONE (08:07)
[2016-07-23] MEDS ORDERED: AZITHROMYCIN INJ 500 MG VIAL IV ONE (08:07)
[2016-07-23 08:09] LABS: CREATINE KINASE MB 0.39 ng/mL (<4.55); TROPONIN I 0.021 ng/mL
[2016-07-23] MEDS ORDERED: INSULIN REG, HUMAN 100 UNIT/ML 3 ML VIAL (PYX) SUBCUT ONE (08:12)
[2016-07-23] MEDS ORDERED: FUROSEMIDE INJ/PF 20 MG/2 ML SDV IV ONE (09:35)
[2016-07-23] MEDS ORDERED: INSULIN REG, HUMAN 100 UNIT/ML 3 ML VIAL (PYX) IV ONE (11:02)
--- NOTE | 2016-07-23 12:10 | EKG REPORT ---
SEVERITY:- ABNORMAL ECG - SINUS TACHYCARDIA PROBABLE LEFT ATRIAL ABNORMALITY LVH WITH SECONDARY REPOLARIZATION ABNORMALITY : Confirmed by: Charlette Harding MD 23-Jul-2016 12:09:45
[2016-07-23] MEDS ORDERED: ENOXAPARIN SODIUM INJ 40 MG/0.4 ML DISP.SYRIN SUBCUT ONE (12:30)
[2016-07-23 12:45] LABS: PARTIAL THROMBOPLASTIN TIME 31.5 SEC (23.5-35.8)
[2016-07-23 12:48] LABS: MAGNESIUM 1.8 mg/dL (1.6-2.3); PHOSPHORUS 3.8 mg/dL (2.5-4.5)
[2016-07-23 12:52] LABS: AMYLASE < 30 U/L (30-110); LIPASE < 10.0 U/L (23-300)
[2016-07-23 13:01] LABS: CREATINE KINASE MB 0.57 ng/mL (<4.55); TROPONIN I 0.026 ng/mL
[2016-07-23 13:19] LABS: THYROID STIMULATING HORMONE 0.41 uIU/mL (0.47-4.68)
[2016-07-23] MEDS: IPRATROPIUM/ALBUTEROL 0.5-2.5 MG/3 ML AMPUL NEB SCH ×4 (14:24→23:39)
[2016-07-23 14:37] LABS: URINE BARBITURATES SCREEN NEGATIVE; URINE METHADONE SCREEN NEGATIVE; URINE OPIATES LOW NEGATIVE; URINE PHENCYCLIDINE SCREEN NEGATIVE
[2016-07-23] MEDS ORDERED: (PENDING PHARMACY ID) (Oxycodone Hcl/Acetaminophen [Percocet 7.5-325 Mg Tablet] 1 EACH) PO PRN (14:46)
[2016-07-23] MEDS ORDERED: FUROSEMIDE 40 MG TABLET PO ONE (15:00)
[2016-07-23] MEDS: LEVOFLOXACIN 750 MG/D5W RTU 750 MG/150 ML RTUPB IV SCH (15:10)
[2016-07-23] MEDS ORDERED: FUROSEMIDE 80 MG TABLET PO ONE (15:30)
[2016-07-23] MEDS ORDERED: DILTIAZEM HCL 120 MG CAP.SR.24H PO ONE (15:30)
[2016-07-23] MEDS: OXYCODONE HCL IR 5 MG TABLET PO PRN ×2 (15:43→22:59)
[2016-07-23] MEDS: OXYCODONE-ACETAMINOPHEN 5-325 MG TABLET PO PRN ×2 (15:43→22:58)
[2016-07-23] MEDS ORDERED: INSULIN LISPRO 10 UNIT SUBCUT SCH (16:00)
--- NOTE | 2016-07-23 16:44 | PDOC H&P ---
History of Present Illness Admission Date/PCP: 07/23/16 11:36 STEPHAN TAFOYA History of Present Illness: JAVIER BURGER is a 60 year old female, patient of Dr. Tafoya she came emergency room because of shortness of breath, chest pain abdominal pain in the emergency room she was evaluated CTA chest was done and showed tiny bilateral pleural effusions with associated air space consolidation in the lung bases which could represent atelectasis or infiltrate that was also associated leukocytosis. No pulmonary emboli was found. She also has CT of the abdomen done because she complained of abdominal pain in the emergency room, it s sheowed ectasia of the abdominal aorta with extensive vascular calcifications.. , She was a smoker until couple of months ago she also have ulcer in the right leg that is managed in wound clinic, the ulcer is wrapped in bandage. Past Medical History Cardiac Medical History: Reports: Congestive Heart Failure, Coronary Artery Disease, Myocardial Infarction, Hyperlipidema, Hypertension, Peripheral Vascular Disease Pulmonary Medical History: Reports: Bronchitis Endocrine Medical History: Reports: Diabetes Mellitus Type 2 GI Medical History: Reports: Diverticulitis - diverticulosis Past Surgical History Past Surgical History: Reports: Coronary Artery Bypass Graft - July 31 2011, Tonsillectomy, Vascular Surgery Social History Smoking Status: Former Smoker - quit 3 months ago Frequency of Alcohol Use: None Hx Recreational Drug Use: No Drugs: None Hx Prescription Drug Abuse: No Family History Family History: CAD, Hyperlipidemia, Hypertension Parental Family History Reviewed: Yes Children Family History Reviewed: Yes Sibling(s) Family History Reviewed.: Yes Medication/Allergy Home Medications: Cilostazol 50 mg PO BID 03/06/14 Ezetimibe [Zetia 10 mg Tablet] 10 mg PO QHS 03/06/14 Furosemide [Lasix] 80 mg PO QAM 03/06/14 Metformin HCl [Glucophage] 850 mg PO BID 03/06/14 Metoprolol Tartrate [Lopressor 50 mg Tablet] 75 mg PO BID 03/06/14 Pravastatin Sodium [Pravachol] 20 mg PO QHS 03/06/14 Linagliptin [Tradjenta] 5 mg PO DAILY 01/21/15 Amlodipine Besylate 10 mg PO DAILY #30 12/15/15 Aspirin [Aspirin 81 mg Chewable Tablet] 81 mg PO DAILY #30 12/15/15 Oxycodone HCl/Acetaminophen [Percocet 7.5-325 mg Tablet] 1 each PO Q4H PRN 12/17 Insulin Glargine,Hum.rec.anlog [Lantus Solostar] 40 units SUBCUT BIDBS 12/23/15 Insulin Lispro [Humalog Kwikpen U-100] 10 units SUBCUT AC 12/23/15 Lisinopril [Prinivil 30 mg Tablet] 30 mg PO BID 02/08/16 Bumetanide [Bumex 1 mg Tablet] 1 mg PO DAILY #30 tablet 04/03/16 Collagenase Clostridium Hist. [Santyl Ointment 30 gm] 1 applic TP QHS #1 tube Gabapentin [Neurontin 300 mg Capsule] 600 mg PO Q12 #60 capsule 04/03/16 Diltiazem HCl [Cartia Xt] 120 mg PO DAILY 07/23/16 Allergies/Adverse Reactions: pregabalin [From Lyrica] Allergy (Verified 06/12/16 12:16) Review of Systems Constitutional: ABSENT: chills, fever(s), headache(s), weight gain, weight loss Eyes: ABSENT: visual disturbances Ears: ABSENT: hearing changes Cardiovascular: PRESENT: dyspnea on exertion Respiratory: PRESENT: cough, dyspnea Gastrointestinal: ABSENT: abdominal pain, constipation, diarrhea, hematemesis, hematochezia, nausea, vomiting Genitourinary: ABSENT: dysuria, hematuria Musculoskeletal: ABSENT: joint swelling Integumentary: ABSENT: rash, wounds Neurological: ABSENT: abnormal gait, abnormal speech, confusion, dizziness, focal weakness, syncope Psychiatric: ABSENT: anxiety, depression, homidical ideation, suicidal ideation Endocrine: ABSENT: cold intolerance, heat intolerance, menstrual abnormalities, polydipsia, polyuria Hematologic/Lymphatic: ABSENT: easy bleeding, easy bruising, lymphadenopathy Physical Exam Vital Signs: Temp Pulse Resp BP Pulse Ox 98.2 F 103 H 18 153/77 H 94 07/23/16 13:01 07/23/16 14:24 07/23/16 14:24 07/23/16 13:01 07/23/16 14:24 Intake & Output 07/22/16 07/23/16 07/24/16 06:59 06:59 06:59 Output Total 400 Balance -400 Weight 127.6 kg General appearance: PRESENT: no acute distress, well-developed, well-nourished Head exam: PRESENT: atraumatic, normocephalic Eye exam: PRESENT: conjunctiva pink, EOMI, PERRLA. ABSENT: scleral icterus Ear exam: PRESENT: normal external ear exam Mouth exam: PRESENT: moist, tongue midline Neck exam: PRESENT: full ROM Respiratory exam: PRESENT: rhonchi Cardiovascular exam: PRESENT: RRR, +S1, +S2 Vascular exam: PRESENT: normal capillary refill GI/Abdominal exam: PRESENT: normal bowel sounds, soft Rectal exam: PRESENT: deferred Extremities exam: PRESENT: pedal edema, other - There is lower extremity edema Neurological exam: PRESENT: alert, awake, oriented to person, oriented to place , oriented to time, oriented to situation, CN II-XII grossly intact Psychiatric exam: PRESENT: appropriate affect, normal mood Skin exam: PRESENT: dry, intact, warm Results Laboratory Results: 07/23/16 07/23/16 07/23/16 12:10 12:10 12:10 Phosphorus 3.8 Magnesium 1.8 Ammonia < 8.7 L Amylase < 30 L Lipase < 10.0 L TSH 0.41 L Free T4 1.97 07/23/16 07/23/16 12:10 12:10 Creatine Kinase 42 CK-MB (CK-2) 0.57 Troponin I 0.026 Impressions: Chest X-Ray 07/23/16 05:55 IMPRESSION: Cardiomegaly and vascular congestion slightly increased from prior study. Chest/Abdomen CTA 07/23/16 06:55 IMPRESSION: NO ABDOMINAL AORTIC ANEURYSM, DISSECTION OR SIGNIFICANT STENOSIS. Ectasia of the abdominal aorta and iliac vessels with extensive vascular calcifications. Other findings as noted above Pelvis CTA 07/23/16 06:59 IMPRESSION: NO ACUTE OR SIGNIFICANT FINDINGS. Assessment & Plan - Diagnosis (1) Pneumonia Qualifiers: Pneumonia type: due to unspecified organism Laterality: bilateral Lung location: lower lobe of lung Qualified Code(s): J18.9 - Pneumonia, unspecified organism Is this a current diagnosis for this admission?: YesPlan: She is admitted for management of community-acquired pneumonia, she is sarted on IV antibiotic, when she arrived in the emergency room she was treated initially with IV Solu-Medrol because there was diffuse wheezing but when I saw on the floor there is no diffuse wheeze on auscultation of her chest. (2) CAD (coronary artery disease) Qualifiers: Coronary Disease-Associated Artery/Lesion type: [place] artery [place] vs. transplanted heart: [place] heart Associated angina: without angina Qualified Code(s): I25.10 - Atherosclerotic heart disease of [place] coronary artery without angina pectoris Is this a current diagnosis for this admission?: Yes (3) Hx of stroke without residual deficits Is this a current diagnosis for this admission?: Yes (5) S/P CABG (coronary artery bypass graft) Is this a current diagnosis for this admission?: Yes (6) Congestive heart failure (CHF) Qualifiers: Congestive heart failure type: unspecified congestive heart failure type Congestive heart failure chronicity: acute on chronic Qualified Code(s): I50.9 - Heart failure, unspecified Is this a current diagnosis for this admission?: Yes (7) 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 Qualifiers: 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
[2016-07-23] MEDS: METOPROLOL TARTRATE 50 MG TABLET PO SCH (17:36)
[2016-07-23] MEDS: LISINOPRIL 10 MG TABLET PO SCH (17:37)
[2016-07-23] MEDS: CILOSTAZOL 100 MG TABLET PO SCH (17:38)
[2016-07-23] MEDS: METFORMIN HCL 850 MG TABLET PO SCH (17:39)
[2016-07-23] MEDS ORDERED: SITAGLIPTIN PHOSPHATE 50 MG TABLET PO ONE (18:00)
[2016-07-23] MEDS ORDERED: INSULIN LISPRO 100 UNIT/ML 3 ML VIAL SUBCUT ONE ×2 (18:00→22:30)
[2016-07-23] MEDS ORDERED: (PENDING PHARMACY ID) (Lisinopril [Prinivil 30 Mg Tablet] 30 MG) PO SCH (18:00)
[2016-07-23] MEDS ORDERED: BUMETANIDE 1 MG TABLET PO ONE (18:00)
[2016-07-23] MEDS ORDERED: INSULIN GLARGINE,HUM.REC.ANLOG 300 UNIT/3 ML INSULN.PEN SUBCUT ONE (18:00)
[2016-07-23] MEDS ORDERED: ASPIRIN 81 MG TABLET, CHEWABLE PO ONE (18:00)
[2016-07-23] MEDS ORDERED: AMLODIPINE BESYLATE 10 MG TABLET PO ONE (18:00)
[2016-07-23 18:57] LABS: CREATINE KINASE MB 0.53 ng/mL (<4.55); TROPONIN I 0.019 ng/mL
--- NOTE | 2016-07-23 20:38 | EKG REPORT ---
SEVERITY:- ABNORMAL ECG - SINUS TACHYCARDIA PROBABLE LEFT ATRIAL ABNORMALITY LEFT AXIS DEVIATION NONSPECIFIC T ABNORMALITIES, LATERAL LEADS : Confirmed by: Charlette Harding MD 23-Jul-2016 20:38:01
[2016-07-23] MEDS: COLLAGENASE CLOSTRIDIUM HIST. OINT 30 GM TP SCH (21:45)
[2016-07-23] MEDS: EZETIMIBE 10 MG TABLET PO SCH (21:45)
[2016-07-23] MEDS: GABAPENTIN 300 MG CAPSULE PO SCH (21:46)
[2016-07-23] MEDS: ATORVASTATIN CALCIUM 10 MG TABLET PO SCH (21:49)
[2016-07-23] MEDS ORDERED: METHYLPREDNISOLONE INJ 125 MG/2 ML SDV IV SCH (22:00)
[2016-07-24 00:16] LABS: CREATINE KINASE MB 0.42 ng/mL (<4.55); TROPONIN I 0.017 ng/mL
[2016-07-24] MEDS: IPRATROPIUM/ALBUTEROL 0.5-2.5 MG/3 ML AMPUL NEB SCH ×8 (02:27→23:33)
[2016-07-24 06:09] LABS: ALANINE AMINOTRANSFERASE 15 U/L (9-52); ALBUMIN 3.1 g/dL (3.5-5.0); ALKALINE PHOSPHATASE 211 U/L (38-126); ANION GAP 10 (5-19); ASPARTATE AMINO TRANSFERASE 12 U/L (14-36); BILIRUBIN,TOTAL 0.9 mg/dL (0.2-1.3); BLOOD UREA NITROGEN 17 mg/dL (7-20); CALCIUM 9.8 mg/dL (8.4-10.2); CARBON DIOXIDE 31 mmol/L (22-30); CHLORIDE 97 mmol/L (98-107); CHOLESTEROL 187.32 mg/dL (0-200); CREATININE RESULT 0.89 mg/dL (0.52-1.25); Direct HDL 35 mg/dL (>40); POTASSIUM 4.7 mmol/L (3.6-5.0); SODIUM 137.9 mmol/L (137-145); TOTAL PROTEIN 7.3 g/dL (6.3-8.2); TRIGLYCERIDES 91 mg/dL (<150)
[2016-07-24 06:13] LABS: HEMATOCRIT 27.8 % (36.0-47.0); HEMOGLOBIN 8.7 g/dL (12.0-15.5); HGB HCT DIFFERENCE -1.7; MEAN CORPUSCULAR HEMOGLOBIN 26.6 pg (27.0-33.4); MEAN CORPUSCULAR HGB CONC 31.5 g/dL (32.0-36.0); MEAN CORPUSCULAR VOLUME 85 fl (80-97); RED BLOOD COUNT 3.28 10^6/uL (3.72-5.28); RED CELL DISTRIBUTION WIDTH 16.1 % (11.5-14.0); WHITE BLOOD COUNT 16.7 10^3/uL (4.0-10.5)
[2016-07-24 06:20] LABS: DIRECT LDL 110 mg/dL (<100)
[2016-07-24 06:37] LABS: GLUCOSE 436 mg/dL (75-110)
[2016-07-24 06:57] LABS: BAND NEUTROPHILS % (MANUAL) 2 % (3-5); BASOPHILS % (MANUAL) 0 % (0-2); EOSINOPHILS % (MANUAL) 0 % (0-6); LYMPHOCYTES % (MANUAL) 6 % (13-45); TOTAL CELLS COUNTED 100
[2016-07-24 07:01] LABS: POLYCHROMASIA SLIGHT; TARGET CELLS SLIGHT
[2016-07-24] MEDS ORDERED: FUROSEMIDE 40 MG TABLET PO SCH (08:00)
[2016-07-24] MEDS: ENOXAPARIN SODIUM INJ 40 MG/0.4 ML DISP.SYRIN SUBCUT SCH (08:28)
[2016-07-24] MEDS: INSULIN GLARGINE,HUM.REC.ANLOG 300 UNIT/3 ML INSULN.PEN SUBCUT SCH ×2 (08:29→17:43)
[2016-07-24] MEDS: INSULIN LISPRO 100 UNIT/ML 3 ML VIAL SUBCUT SCH ×3 (08:29→17:39)
[2016-07-24] MEDS ORDERED: (PENDING PHARMACY ID) (Linagliptin [Tradjenta] 5 MG) PO SCH (10:00)
[2016-07-24] MEDS ORDERED: AMLODIPINE BESYLATE 10 MG TABLET PO SCH (10:00)
[2016-07-24] MEDS ORDERED: DILTIAZEM HCL 120 MG CAP.SR.24H PO SCH (10:00)
[2016-07-24] MEDS: BUMETANIDE 1 MG TABLET PO SCH (10:00)
[2016-07-24] MEDS: LISINOPRIL 10 MG TABLET PO SCH ×2 (10:01→17:41)
[2016-07-24] MEDS: CILOSTAZOL 100 MG TABLET PO SCH ×2 (10:01→17:41)
[2016-07-24] MEDS: GABAPENTIN 300 MG CAPSULE PO SCH ×2 (10:01→21:23)
[2016-07-24] MEDS: ASPIRIN 81 MG TABLET, CHEWABLE PO SCH (10:02)
[2016-07-24] MEDS: METFORMIN HCL 850 MG TABLET PO SCH ×2 (10:02→17:42)
[2016-07-24] MEDS: DILTIAZEM HCL 120 MG CAP.SR.24H PO SCH ×2 (10:02→21:23)
[2016-07-24] MEDS: FUROSEMIDE 80 MG TABLET PO SCH (10:02)
[2016-07-24] MEDS: METOPROLOL TARTRATE 50 MG TABLET PO SCH ×2 (10:02→17:42)
[2016-07-24] MEDS: OXYCODONE-ACETAMINOPHEN 5-325 MG TABLET PO PRN (10:06)
[2016-07-24] MEDS: OXYCODONE HCL IR 5 MG TABLET PO PRN (10:08)
[2016-07-24] MEDS: SITAGLIPTIN PHOSPHATE 50 MG TABLET PO SCH (10:08)
[2016-07-24] MEDS: LEVOFLOXACIN 750 MG/D5W RTU 750 MG/150 ML RTUPB IV SCH (11:47)
[2016-07-24] MEDS ORDERED: GLUCAGON,HUMAN RECOMB 1 MG INJ IM PRN (14:50)
[2016-07-24] MEDS ORDERED: DEXTROSE 40% GEL 15 GM TUBE X 2 PO PRN (14:50)
[2016-07-24] MEDS ORDERED: DEXTROSE 50%-WATER SYRINGE 12.5 GM/25 ML DOSE IV PRN (14:50)
[2016-07-24] MEDS ORDERED: DEXTROSE 50%-WATER SYRINGE 25 GM/50 ML DOSE IV PRN (14:50)
[2016-07-24] MEDS ORDERED: DEXTROSE 40% GEL 15 GM TUBE PO PRN (14:50)
[2016-07-24] MEDS: INSULIN LISPRO 100 UNIT/ML 3 ML VIAL SUBCUT PRN (14:57)
--- NOTE | 2016-07-24 16:31 | XCELERA REPORT ---
[address] [address] Transthoracic Echocardiogram Report Name: JAVIER BURGER Age: 60 yrs Gender: Female : 1955 Patient Status: Inpatient Patient Location: [id number]\S\331\S\A Study Date: 07/24/2016 10:43 AM Height: 64 in Weight: 237 lb BSA: 2.1 m2 Procedure: A complete two-dimensional transthoracic echocardiogram was performed (2D, M-mode, spectral and color flow Doppler). The study was technically adequate with some images being suboptimal in quality. Reason For Study: elevated BNP Ordering Physician: ANA MARIA MENJIVAR Performed By: Matilda Cordero Interpretation Summary The Ejection Fraction estimate is 50-55% Left ventricular systolic function is borderline reduced. There is mild concentric left ventricular hypertrophy. The left ventricle is grossly normal size. Doppler measurements suggest pseudonormalized left ventricular relaxation, which is associated with grade II/IV or mild to moderate diastolic dysfunction Wall motion cannot be accurately commented on, but no definite regional wall motion abnormalities noted. The right ventricle is mildly dilated. There is normal right ventricular wall thickness. The right ventricular systolic function is normal. The left atrium is moderately dilated. The right atrium is mildly dilated. There is a mild to moderate amount of mitral regurgitation There is no mitral valve stenosis. No aortic regurgitation is present. There is mild aortic stenosis There is a moderate amount of tricuspid regurgitation There is mild pulmonary hypertension by echo Right ventricular systolic pressure is estimated to be elevated at 40- 50mmHg. Minimal pericardial effusion. MMode/2D Measurements \T\ Calculations RVDd: 2.9 cm LVIDd: 4.8 cm FS: 24.7 % Ao root diam: 3.2 cm IVSd: 0.93 cm LVIDs: 3.6 cm EDV(Teich): 109.1 ml LVPWd: 0.99 cmESV(Teich): 55.7 ml Ao root area: 8.1 cm2 EF(Teich): 48.9 % LA dimension: 4.6 cm LVOT diam: 2.3 cm LVOT area: 4.1 cm2 Doppler Measurements \T\ Calculations MV E max mia: MV P1/2t max mia: Ao V2 max: LV V1 max P.0 cm/sec 157.4 cm/sec 211.4 cm/sec 4.2 mmHg MV A max mia: MV P1/2t: 54.9 msec Ao max PG: LV V1 max: 121.2 cm/sec MVA(P1/2t): 4.0 cm2 17.9 mmHg 102.0 cm/sec MV E/A: 1.3 MV dec slope: RAE(V,D): 2.0 cm2 839.3 cm/sec2 PA V2 max: TR max mia: 82.4 cm/sec 289.9 cm/sec PA max PG: TR max P.6 mmHg 2.7 mmHg Left Ventricle The left ventricle is grossly normal size. There is mild concentric left ventricular hypertrophy. Left ventricular systolic function is borderline reduced. The Ejection Fraction estimate is 50-55%. Doppler measurements suggest pseudonormalized left ventricular relaxation, which is associated with grade II/IV or mild to moderate diastolic dysfunction. Wall motion cannot be accurately commented on, but no definite regional wall motion abnormalities noted. Right Ventricle The right ventricle is mildly dilated. There is normal right ventricular wall thickness. The right ventricular systolic function is normal. Atria The right atrium is mildly dilated. The left atrium is moderately dilated. Interarterial septum not well visualized and not well dopplered. Cannot comment on ASD/PFO presence. Mitral Valve There is moderate mitral annular calcification. There is no mitral valve stenosis. There is a mild to moderate amount of mitral regurgitation. Aortic Valve The aortic valve is moderately calcified. There is mild aortic stenosis. No aortic regurgitation is present. Tricuspid Valve The tricuspid valve is not well visualized secondary to technical limitations. There is no tricuspid stenosis. There is a moderate amount of tricuspid regurgitation. There is mild pulmonary hypertension by echo. Right ventricular systolic pressure is estimated to be elevated at 40- 50mmHg. Pulmonic Valve The pulmonic valve is not well visualized. Great Vessels The aortic root is not well visualized. The inferior vena cava appeared normal and decreased > 50% with respiration (RAP 5-10 mmHg). Effusions Minimal pericardial effusion. : ANA MARIA MENJIVAR > Irma Hitchcock
[2016-07-24] MEDS: EZETIMIBE 10 MG TABLET PO SCH (21:22)
[2016-07-24] MEDS: ATORVASTATIN CALCIUM 10 MG TABLET PO SCH (21:22)
[2016-07-24] MEDS: COLLAGENASE CLOSTRIDIUM HIST. OINT 30 GM TP SCH (21:28)
--- NOTE | 2016-07-24 23:52 | PDOC PROGRESS REPORT ---
Subjective Progress Note for:: 07/24/16 Subjective:: Patient denied any chest pain or difficulty with breathing. No nausea or vomiting. Patent reported lower abdominal region pain. No definite fever or chills. Her accuchek have remain elevated so far today. Patient did admit to noncompliance with premeal and bedtime humalog sliding scale insulin usage at home. Physical Exam Vital Signs: Temp Pulse Resp BP Pulse Ox 98.1 F 70 16 105/55 L 97 07/24/16 23:09 07/24/16 23:09 07/24/16 23:09 07/24/16 23:09 07/24/16 23:09 Intake & Output 07/23/16 07/24/16 07/25/16 06:59 06:59 06:59 Intake Total 1120 492 Output Total 3100 250 Balance -1980 242 Weight 127.3 kg General appearance: PRESENT: no acute distress, cooperative, morbidly obese Head exam: PRESENT: atraumatic, normocephalic Eye exam: PRESENT: conjunctiva pink, EOMI, PERRLA. ABSENT: scleral icterus Mouth exam: PRESENT: moist Teeth exam: PRESENT: poor dentation Throat exam: ABSENT: post pharyngeal erythema, tonsillar erythema, tonsillar exudate, tonsillogmegaly, other Respiratory exam: PRESENT: clear to auscultation jerrica, decreased breath sounds - at lung bases Cardiovascular exam: PRESENT: RRR. ABSENT: diastolic murmur, rubs, systolic murmur GI/Abdominal exam: PRESENT: tenderness - lower quadrant and suprapubic region to deep palpation. ABSENT: ascites, diminished bowel sounds, distended, firm, guarding, hernia, hyperactive bowel sounds, hypoactive bowel sounds, mass, Zimmer's sign, normal bowel sounds, organolmegaly, rebound, rigid, soft, other Extremities exam: PRESENT: pedal edema - bilateral Musculoskeletal exam: PRESENT: deformity - related to joint involvmeent with arthritis Neurological exam: PRESENT: alert, awake, oriented to person, oriented to place , oriented to time, oriented to situation, CN II-XII grossly intact. ABSENT: motor sensory deficit Psychiatric exam: PRESENT: appropriate affect, normal mood. ABSENT: homicidal ideation, suicidal ideation Skin exam: PRESENT: dry, warm, other - chronic right heel diabetic pressure ulcer Results Laboratory Results: 07/24/16 05:31 07/24/16 05:31 07/24/16 07/24/16 05:31 05:31 WBC 16.7 H RBC 3.28 L Hgb 8.7 L Hct 27.8 L MCV 85 MCH 26.6 L MCHC 31.5 L RDW 16.1 H Plt Count 317 Seg Neutrophils % Not Reportable Lymphocytes % Not Reportable Monocytes % Not Reportable Eosinophils % Not Reportable Basophils % Not Reportable Absolute Neutrophils Not Reportable Absolute Lymphocytes Not Reportable Absolute Monocytes Not Reportable Absolute Eosinophils Not Reportable Absolute Basophils Not Reportable Sodium 137.9 Potassium 4.7 Chloride 97 L Carbon Dioxide 31 H Anion Gap 10 BUN 17 Creatinine 0.89 Est GFR ( Amer) > 60 Est GFR (Non-Af Amer) > 60 Glucose 436 H* Calcium 9.8 Total Bilirubin 0.9 AST 12 L ALT 15 Alkaline Phosphatase 211 H Total Protein 7.3 Albumin 3.1 L Triglycerides 91 Cholesterol 187.32 LDL Cholesterol Direct 110 H VLDL Cholesterol 18.0 HDL Cholesterol 35 L 07/23/16 07/23/16 07/23/16 12:10 12:10 18:06 Creatine Kinase 42 42 CK-MB (CK-2) 0.57 Troponin I 0.026 07/23/16 07/23/16 07/23/16 18:06 23:42 23:42 Creatine Kinase 35 CK-MB (CK-2) 0.53 0.42 Troponin I 0.019 0.017 Impressions: Chest X-Ray 07/23/16 05:55 IMPRESSION: Cardiomegaly and vascular congestion slightly increased from prior study. Chest/Abdomen CTA 07/23/16 06:55 IMPRESSION: NO ABDOMINAL AORTIC ANEURYSM, DISSECTION OR SIGNIFICANT STENOSIS. Ectasia of the abdominal aorta and iliac vessels with extensive vascular calcifications. Other findings as noted above Pelvis CTA 07/23/16 06:59 IMPRESSION: NO ACUTE OR SIGNIFICANT FINDINGS. 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 (2) Pneumonia Qualifiers: Pneumonia type: due to unspecified organism Laterality: bilateral Lung location: lower lobe of lung Qualified Code(s): J18.9 - Pneumonia, unspecified organism Is this a current diagnosis for this admission?: YesPlan: See attending physician orders. (3) Chronic pain syndrome Is this a current diagnosis for this admission?: YesPlan: See attending physician orders. (4) Chronic use of opiate for therapeutic purpose Is this a current diagnosis for this admission?: YesPlan: See attending physician orders. (5) HLD (hyperlipidemia) Qualifiers: Hyperlipidemia type: pure hypercholesterolemia Qualified Code(s): E78.00 - Pure hypercholesterolemia, unspecified; E78.0 - Pure hypercholesterolemia Is this a current diagnosis for this admission?: YesPlan: See attending physician orders. (6) HTN (hypertension) Qualifiers: Hypertension type: essential hypertension Qualified Code(s): I10 - Essential (primary) hypertension Is this a current diagnosis for this admission?: YesPlan: See attending physician orders. (7) Hx of stroke without residual deficits Is this a current diagnosis for this admission?: YesPlan: See attending physician orders. (8) PAD (peripheral artery disease) Is this a current diagnosis for this admission?: YesPlan: See attending physician orders. (9) S/P CABG (coronary artery bypass graft) Is this a current diagnosis for this admission?: YesPlan: See attending physician orders. (10) Acute on chronic systolic CHF (congestive heart failure) Is this a current diagnosis for this admission?: YesPlan: See attending physician orders. 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 - Time Time Spent with patient: 25-34 minutes Medications reviewed and adjusted accordingly: Yes Anticipated discharge: Home with Homehealth Within: Other - Inpatient Certification Medical Necessity: Need Close Monitoring Due to Risk of Patient Decompensation, Need For Continuous Telemetry Monitoring, Need for IV Antibiotics, Risk of Complication if Not Cared For in Hospital Post Hospital Care: D/C Abalone Fisherman Documentation - Plan Summary Plan Summary: See attending physician orders.
[2016-07-25] MEDS: IPRATROPIUM/ALBUTEROL 0.5-2.5 MG/3 ML AMPUL NEB SCH ×6 (02:16→17:33)
[2016-07-25] MEDS: OXYCODONE-ACETAMINOPHEN 5-325 MG TABLET PO PRN ×3 (03:53→23:48)
[2016-07-25] MEDS: OXYCODONE HCL IR 5 MG TABLET PO PRN ×3 (03:56→23:48)
[2016-07-25 05:47] LABS: ABSOLUTE LYMPHOCYTES (AUTO) 1.3 10^3/uL (0.5-4.7); ABSOLUTE MONOCYTES (AUTO) 1.5 10^3/uL (0.1-1.4); ABSOLUTE NEUT (AUTO) 16.9 10^3/uL (1.7-8.2); BASOPHILS % (AUTO) 0.1 % (0-2); HEMATOCRIT 27.7 % (36.0-47.0); HEMOGLOBIN 8.9 g/dL (12.0-15.5); LYMPHOCYTES % (AUTO) 6.8 % (13-45); MEAN CORPUSCULAR HEMOGLOBIN 27.1 pg (27.0-33.4); MEAN CORPUSCULAR HGB CONC 32.3 g/dL (32.0-36.0); MEAN CORPUSCULAR VOLUME 84 fl (80-97); MONOCYTES % (AUTO) 7.3 % (3-13); RED CELL DISTRIBUTION WIDTH 16.3 % (11.5-14.0); SEGMENTED NEUTROPHILS % (AUTO) 85.8 % (42-78); WHITE BLOOD COUNT 19.7 10^3/uL (4.0-10.5)
[2016-07-25 06:11] LABS: ALANINE AMINOTRANSFERASE 24 U/L (9-52); ALBUMIN 2.9 g/dL (3.5-5.0); ALKALINE PHOSPHATASE 184 U/L (38-126); ANION GAP 10 (5-19); ASPARTATE AMINO TRANSFERASE 24 U/L (14-36); BILIRUBIN,DIRECT 0.4 mg/dL (0.0-0.4); BILIRUBIN,TOTAL 0.6 mg/dL (0.2-1.3); CALCIUM 9.8 mg/dL (8.4-10.2); CARBON DIOXIDE 31 mmol/L (22-30); CHLORIDE 100 mmol/L (98-107); CREATININE RESULT 1.67 mg/dL (0.52-1.25); GLUCOSE 138 mg/dL (75-110); SODIUM 140.7 mmol/L (137-145); TOTAL PROTEIN 6.9 g/dL (6.3-8.2)
[2016-07-25 06:32] LABS: BLOOD UREA NITROGEN 39 mg/dL (7-20)
[2016-07-25] MEDS: INSULIN GLARGINE,HUM.REC.ANLOG 300 UNIT/3 ML INSULN.PEN SUBCUT SCH ×2 (08:48→17:32)
[2016-07-25] MEDS: INSULIN LISPRO 100 UNIT/ML 3 ML VIAL SUBCUT SCH ×3 (08:53→17:29)
[2016-07-25] MEDS: ENOXAPARIN SODIUM INJ 40 MG/0.4 ML DISP.SYRIN SUBCUT SCH (08:54)
[2016-07-25] MEDS: FUROSEMIDE 80 MG TABLET PO SCH (09:01)
[2016-07-25] MEDS: BUMETANIDE 1 MG TABLET PO SCH (09:01)
[2016-07-25] MEDS: ASPIRIN 81 MG TABLET, CHEWABLE PO SCH (09:01)
[2016-07-25] MEDS: GABAPENTIN 300 MG CAPSULE PO SCH ×2 (09:02→22:36)
[2016-07-25] MEDS: CILOSTAZOL 100 MG TABLET PO SCH ×2 (09:02→17:31)
[2016-07-25] MEDS: METFORMIN HCL 850 MG TABLET PO SCH ×2 (09:02→17:33)
[2016-07-25] MEDS: METOPROLOL TARTRATE 50 MG TABLET PO SCH ×2 (09:03→17:31)
[2016-07-25] MEDS: DILTIAZEM HCL 120 MG CAP.SR.24H PO SCH ×2 (09:04→22:40)
[2016-07-25] MEDS: LISINOPRIL 10 MG TABLET PO SCH ×2 (09:04→17:30)
[2016-07-25] MEDS: SITAGLIPTIN PHOSPHATE 50 MG TABLET PO SCH (09:04)
[2016-07-25] MEDS ORDERED: LEVOFLOXACIN 750 MG TABLET PO SCH (10:00)
[2016-07-25] MEDS ORDERED: IPRATROPIUM/ALBUTEROL 0.5-2.5 MG/3 ML AMPUL NEB PRN (20:24)
--- NOTE | 2016-07-25 20:28 | PDOC PROGRESS REPORT ---
Subjective Progress Note for:: 07/25/16 Subjective:: Patient reported feeling of lightheadedness but denied vertigo. No chest pain or difficulty with breathing. No nausea or vomiting. P.O intake improving and accuchek has improved on adjustment of her insulin management. No fever or chills but reported remain cold. There is improvement in her urine output so far today. Physical Exam Vital Signs: Temp Pulse Resp BP Pulse Ox 97.4 F 64 18 106/53 L 95 07/25/16 15:56 07/25/16 15:56 07/25/16 15:56 07/25/16 15:56 07/25/16 17:33 Intake & Output 07/24/16 07/25/16 07/26/16 06:59 06:59 06:59 Intake Total 1120 712 587 Output Total 3100 450 400 Balance -1980 262 187 Weight 127.3 kg 128.1 kg 128.1 kg Physical Exam: General appearance: PRESENT: no acute distress, cooperative, morbidly obese Head exam: PRESENT: atraumatic, normocephalic Eye exam: PRESENT: conjunctiva pink, EOMI, PERRLA. ABSENT: scleral icterus Respiratory exam: PRESENT: clear to auscultation jerrica, decreased breath sounds - at lung bases Cardiovascular exam: PRESENT: RRR. ABSENT: diastolic murmur, rubs, systolic murmur GI/Abdominal exam: PRESENT: tenderness - minimal, lower quadrant region to deep palpation. ABSENT: ascites, diminished bowel sounds, distended, firm, guarding , hernia, hyperactive bowel sounds, hypoactive bowel sounds, mass, Zimmre's sign , normal bowel sounds, organomegaly, rebound, rigid, soft, other Extremities exam: PRESENT: pedal edema - bilateral Musculoskeletal exam: PRESENT: deformity - related to joint involvement with arthritis Neurological exam: PRESENT: alert, awake, oriented to person, oriented to place , oriented to time, oriented to situation, CN II-XII grossly intact. ABSENT: motor sensory deficit Psychiatric exam: PRESENT: appropriate affect, normal mood. ABSENT: homicidal ideation, suicidal ideation Skin exam: PRESENT: dry, warm, other - chronic right heel diabetic pressure ulcer Results Laboratory Results: 07/25/16 05:26 07/25/16 05:26 07/25/16 07/25/16 07/25/16 02:40 05:26 05:26 WBC 19.7 H RBC 3.30 L Hgb 8.9 L Hct 27.7 L MCV 84 MCH 27.1 MCHC 32.3 RDW 16.3 H Plt Count 328 Seg Neutrophils % 85.8 H Lymphocytes % 6.8 L Monocytes % 7.3 Eosinophils % 0.0 Basophils % 0.1 Absolute Neutrophils 16.9 H Absolute Lymphocytes 1.3 Absolute Monocytes 1.5 H Absolute Eosinophils 0.0 Absolute Basophils 0.0 Sodium 140.7 Potassium 5.0 Chloride 100 Carbon Dioxide 31 H Anion Gap 10 BUN 39 H D Creatinine 1.67 H Est GFR ( Amer) 38 L Est GFR (Non-Af Amer) 31 L Glucose 138 H Calcium 9.8 Total Bilirubin 0.6 AST 24 ALT 24 Alkaline Phosphatase 184 H Total Protein 6.9 Albumin 2.9 L Stool Occult Blood NEGATIVE 07/23/16 07/23/16 07/23/16 12:10 12:10 18:06 Creatine Kinase 42 42 CK-MB (CK-2) 0.57 Troponin I 0.026 07/23/16 07/23/16 07/23/16 18:06 23:42 23:42 Creatine Kinase 35 CK-MB (CK-2) 0.53 0.42 Troponin I 0.019 0.017 Impressions: Chest X-Ray 07/23/16 05:55 IMPRESSION: Cardiomegaly and vascular congestion slightly increased from prior study. Chest/Abdomen CTA 07/23/16 06:55 IMPRESSION: NO ABDOMINAL AORTIC ANEURYSM, DISSECTION OR SIGNIFICANT STENOSIS. Ectasia of the abdominal aorta and iliac vessels with extensive vascular calcifications. Other findings as noted above Pelvis CTA 07/23/16 06:59 IMPRESSION: NO ACUTE OR SIGNIFICANT FINDINGS. Assessment & Plan - Diagnosis (1) Hyperglycemia due to type 2 diabetes mellitus Qualifiers: Diabetes mellitus local intermodal truck driver insulin use: with jail use Qualified Code(s): E11.65 - Type 2 diabetes mellitus with hyperglycemia Is this a current diagnosis for this admission?: YesPlan: We will hold her Metformin usage due to recent contrast study. Maintain on sliding scale Humalog insulin coverage. See attending physician orders. (2) Pneumonia Qualifiers: Pneumonia type: due to unspecified organism Laterality: bilateral Lung location: lower lobe of lung Qualified Code(s): J18.9 - Pneumonia, unspecified organism Is this a current diagnosis for this admission?: YesPlan: I will decrease her Levofloxacin to 500mg daily. I will start her on IV Rocephin 1gm daily. Patient was encouraged to use bedside flutter device to aide expectoration. See attending physician orders. (3) Chronic pain syndrome Is this a current diagnosis for this admission?: YesPlan: See attending physician orders. (4) Chronic use of opiate for therapeutic purpose Is this a current diagnosis for this admission?: Yes (5) HLD (hyperlipidemia) Qualifiers: Hyperlipidemia type: pure hypercholesterolemia Qualified Code(s): E78.00 - Pure hypercholesterolemia, unspecified; E78.0 - Pure hypercholesterolemia Is this a current diagnosis for this admission?: Yes (6) HTN (hypertension) Qualifiers: Hypertension type: essential hypertension Qualified Code(s): I10 - Essential (primary) hypertension Is this a current diagnosis for this admission?: YesPlan: Decrease Lisinopril to 30 mg p.o daily. See attending physician orders. (7) Hx of stroke without residual deficits Is this a current diagnosis for this admission?: Yes (8) PAD (peripheral artery disease) Is this a current diagnosis for this admission?: Yes (9) S/P CABG (coronary artery bypass graft) Is this a current diagnosis for this admission?: Yes (10) Acute on chronic systolic CHF (congestive heart failure) Is this a current diagnosis for this admission?: YesPlan: See attending physician orders. (11) 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 Qualifiers: Diabetes mellitus local intermodal truck driver insulin use: unspecified local intermodal truck driver insulin use status Qualified Code(s): E11.621 - Type 2 diabetes mellitus with foot ulcer; L97.509 - Non-pressure chronic ulcer of other part of unspecified foot with unspecified severity Is this a current diagnosis for this admission?: YesPlan: See attending physician orders. - Time Time Spent with patient: 25-34 minutes Medications reviewed and adjusted accordingly: Yes Anticipated discharge: Home with Homehealth Within: Other - Inpatient Certification Medical Necessity: Need Close Monitoring Due to Risk of Patient Decompensation, Need For Continuous Telemetry Monitoring, Need for Nebulizer Therapy and Monitoring of Response, Need for Pain Control, Need for IV Antibiotics, Risk of Complication if Not Cared For in Hospital Post Hospital Care: D/C Rim Fire Charger Operator Documentation - Plan Summary Plan Summary: See attending physician orders.
[2016-07-25] MEDS: CEFTRIAXONE 1 GM/D5W RTU 1 GM/50 ML RTUPB IV SCH (22:24)
[2016-07-25] MEDS: EZETIMIBE 10 MG TABLET PO SCH (22:33)
[2016-07-25] MEDS: ATORVASTATIN CALCIUM 10 MG TABLET PO SCH (22:36)
[2016-07-25] MEDS: COLLAGENASE CLOSTRIDIUM HIST. OINT 30 GM TP SCH (22:59)
[2016-07-26 06:54] LABS: ABSOLUTE EOSINOPHILS # (AUTO) 0.1 10^3/uL (0.0-0.6); ABSOLUTE LYMPHOCYTES (AUTO) 2.9 10^3/uL (0.5-4.7); ABSOLUTE MONOCYTES (AUTO) 1.6 10^3/uL (0.1-1.4); ABSOLUTE NEUT (AUTO) 9.2 10^3/uL (1.7-8.2); BASOPHILS % (AUTO) 0.3 % (0-2); EOSINOPHILS % (AUTO) 0.7 % (0-6); HEMATOCRIT 29.1 % (36.0-47.0); HEMOGLOBIN 9.2 g/dL (12.0-15.5); HGB HCT DIFFERENCE -1.5; LYMPHOCYTES % (AUTO) 20.9 % (13-45); MEAN CORPUSCULAR HEMOGLOBIN 26.7 pg (27.0-33.4); MEAN CORPUSCULAR HGB CONC 31.7 g/dL (32.0-36.0); MEAN CORPUSCULAR VOLUME 84 fl (80-97); MONOCYTES % (AUTO) 11.8 % (3-13); RED BLOOD COUNT 3.44 10^6/uL (3.72-5.28); RED CELL DISTRIBUTION WIDTH 16.8 % (11.5-14.0); SEGMENTED NEUTROPHILS % (AUTO) 66.3 % (42-78); WHITE BLOOD COUNT 13.9 10^3/uL (4.0-10.5)
[2016-07-26 07:08] LABS: ALANINE AMINOTRANSFERASE 21 U/L (9-52); ALBUMIN 2.6 g/dL (3.5-5.0); ALKALINE PHOSPHATASE 160 U/L (38-126); ANION GAP 12 (5-19); ASPARTATE AMINO TRANSFERASE 27 U/L (14-36); BILIRUBIN,DIRECT 0.4 mg/dL (0.0-0.4); BILIRUBIN,TOTAL 0.5 mg/dL (0.2-1.3); BLOOD UREA NITROGEN 51 mg/dL (7-20); CALCIUM 9.2 mg/dL (8.4-10.2); CARBON DIOXIDE 30 mmol/L (22-30); CHLORIDE 101 mmol/L (98-107); CREATININE RESULT 1.58 mg/dL (0.52-1.25); GLUCOSE 63 mg/dL (75-110); POTASSIUM 4.4 mmol/L (3.6-5.0); SODIUM 142.6 mmol/L (137-145); TOTAL PROTEIN 6.3 g/dL (6.3-8.2)
[2016-07-26] MEDS: INSULIN LISPRO 100 UNIT/ML 3 ML VIAL SUBCUT SCH ×3 (08:21→17:13)
[2016-07-26] MEDS: INSULIN GLARGINE,HUM.REC.ANLOG 300 UNIT/3 ML INSULN.PEN SUBCUT SCH ×2 (08:21→17:14)
[2016-07-26] MEDS: ASPIRIN 81 MG TABLET, CHEWABLE PO SCH (09:22)
[2016-07-26] MEDS: ENOXAPARIN SODIUM INJ 40 MG/0.4 ML DISP.SYRIN SUBCUT SCH (09:22)
[2016-07-26] MEDS: GABAPENTIN 300 MG CAPSULE PO SCH ×2 (09:23→21:29)
[2016-07-26] MEDS: BUMETANIDE 1 MG TABLET PO SCH (09:23)
[2016-07-26] MEDS: OXYCODONE HCL IR 5 MG TABLET PO PRN ×2 (09:24→23:45)
[2016-07-26] MEDS: OXYCODONE-ACETAMINOPHEN 5-325 MG TABLET PO PRN ×2 (09:24→20:23)
[2016-07-26] MEDS: LEVOFLOXACIN 500 MG TABLET PO SCH (09:25)
[2016-07-26] MEDS: CILOSTAZOL 100 MG TABLET PO SCH ×2 (09:26→17:18)
[2016-07-26] MEDS: METOPROLOL TARTRATE 50 MG TABLET PO SCH ×2 (09:28→17:17)
[2016-07-26] MEDS: DILTIAZEM HCL 120 MG CAP.SR.24H PO SCH ×2 (09:29→21:30)
[2016-07-26] MEDS: SITAGLIPTIN PHOSPHATE 50 MG TABLET PO SCH (09:29)
[2016-07-26] MEDS: LISINOPRIL 10 MG TABLET PO SCH (09:29)
[2016-07-26] MEDS: FUROSEMIDE 80 MG TABLET PO SCH (12:09)
--- NOTE | 2016-07-26 19:05 | PDOC PROGRESS REPORT ---
Subjective Progress Note for:: 07/26/16 Subjective:: Patient reported continue episodes of lightheadedness despite decrease in her anti HTN medication. She denied chest pain or difficulty with breathing. No nausea or vomiting. P.O intake improving. Her glycemic control is improving. No fever or chills but reported remain cold. Physical Exam Vital Signs: Temp Pulse Resp BP Pulse Ox 97.7 F 68 20 98/58 L 97 07/26/16 07:07 07/26/16 07:07 07/26/16 07:07 07/26/16 07:07 07/26/16 07:07 Intake & Output 07/25/16 07/26/16 07/27/16 06:59 06:59 06:59 Intake Total 712 1201 Output Total 450 850 Balance 262 351 Weight 128.1 kg 128.6 kg Physical Exam: General appearance: PRESENT: no acute distress, cooperative, morbidly obese Head exam: PRESENT: atraumatic, normocephalic Eye exam: PRESENT: conjunctiva pink, EOMI, PERRLA. ABSENT: scleral icterus Respiratory exam: PRESENT: clear to auscultation jerrica, decreased breath sounds - at lung bases Cardiovascular exam: PRESENT: RRR. ABSENT: diastolic murmur, rubs, systolic murmur GI/Abdominal exam: PRESENT: tenderness - minimal, lower quadrant region to deep palpation. ABSENT: ascites, diminished bowel sounds, distended, firm, guarding , hernia, hyperactive bowel sounds, hypoactive bowel sounds, mass, Zimmer's sign , normal bowel sounds, organomegaly, rebound, rigid, soft, other Extremities exam: PRESENT: pedal edema - bilateral Musculoskeletal exam: PRESENT: deformity - related to joint involvement with arthritis Neurological exam: PRESENT: alert, awake, oriented to person, oriented to place , oriented to time, oriented to situation, CN II-XII grossly intact. ABSENT: motor sensory deficit Psychiatric exam: PRESENT: appropriate affect, normal mood. ABSENT: homicidal ideation, suicidal ideation Skin exam: PRESENT: dry, warm, other - chronic right heel diabetic pressure ulcer Results Laboratory Results: 07/26/16 05:56 07/26/16 05:56 07/26/16 07/26/16 07/26/16 00:30 05:56 05:56 WBC 13.9 H RBC 3.44 L Hgb 9.2 L Hct 29.1 L MCV 84 MCH 26.7 L MCHC 31.7 L RDW 16.8 H Plt Count 364 Seg Neutrophils % 66.3 Lymphocytes % 20.9 Monocytes % 11.8 Eosinophils % 0.7 Basophils % 0.3 Absolute Neutrophils 9.2 H Absolute Lymphocytes 2.9 Absolute Monocytes 1.6 H Absolute Eosinophils 0.1 Absolute Basophils 0.0 Sodium 142.6 Potassium 4.4 Chloride 101 Carbon Dioxide 30 Anion Gap 12 BUN 51 H Creatinine 1.58 H Est GFR ( Amer) 40 L Est GFR (Non-Af Amer) 33 L Glucose 63 L Calcium 9.2 Total Bilirubin 0.5 AST 27 ALT 21 Alkaline Phosphatase 160 H Total Protein 6.3 Albumin 2.6 L Stool Occult Blood NEGATIVE 07/23/16 07/23/16 07/23/16 12:10 12:10 18:06 Creatine Kinase 42 42 CK-MB (CK-2) 0.57 Troponin I 0.026 07/23/16 07/23/16 07/23/16 18:06 23:42 23:42 Creatine Kinase 35 CK-MB (CK-2) 0.53 0.42 Troponin I 0.019 0.017 Impressions: Chest X-Ray 07/23/16 05:55 IMPRESSION: Cardiomegaly and vascular congestion slightly increased from prior study. Chest/Abdomen CTA 07/23/16 06:55 IMPRESSION: NO ABDOMINAL AORTIC ANEURYSM, DISSECTION OR SIGNIFICANT STENOSIS. Ectasia of the abdominal aorta and iliac vessels with extensive vascular calcifications. Other findings as noted above Pelvis CTA 07/23/16 06:59 IMPRESSION: NO ACUTE OR SIGNIFICANT FINDINGS. Assessment & Plan - Diagnosis (1) Hyperglycemia due to type 2 diabetes mellitus Qualifiers: Diabetes mellitus prison insulin use: with prison use Qualified Code(s): E11.65 - Type 2 diabetes mellitus with hyperglycemia Is this a current diagnosis for this admission?: YesPlan: Continue current medication management. See attending physician orders. (2) Pneumonia Qualifiers: Pneumonia type: due to unspecified organism Laterality: bilateral Lung location: lower lobe of lung Qualified Code(s): J18.9 - Pneumonia, unspecified organism Is this a current diagnosis for this admission?: YesPlan: Continue IV Rocephin and Levofloxacin coverage. Monitor CBC with diff for leukocytes response. Follow up on blood culture findings. See attending physician orders. (3) Chronic pain syndrome Is this a current diagnosis for this admission?: YesPlan: See attending physician orders. (4) Chronic use of opiate for therapeutic purpose Is this a current diagnosis for this admission?: YesPlan: See attending physician orders. (5) HLD (hyperlipidemia) Qualifiers: Hyperlipidemia type: pure hypercholesterolemia Qualified Code(s): E78.00 - Pure hypercholesterolemia, unspecified; E78.0 - Pure hypercholesterolemia Is this a current diagnosis for this admission?: YesPlan: See attending physician orders. (6) HTN (hypertension) Qualifiers: Hypertension type: essential hypertension Qualified Code(s): I10 - Essential (primary) hypertension Is this a current diagnosis for this admission?: YesPlan: Maintain on current medication management. Monitor fluid balance for negative status. See attending physician orders. (7) Hx of stroke without residual deficits Is this a current diagnosis for this admission?: YesPlan: See attending physician orders. (8) PAD (peripheral artery disease) Is this a current diagnosis for this admission?: YesPlan: See attending physician orders. (9) S/P CABG (coronary artery bypass graft) Is this a current diagnosis for this admission?: YesPlan: See attending physician orders. (10) Acute on chronic systolic CHF (congestive heart failure) Is this a current diagnosis for this admission?: YesPlan: See attending physician orders. (11) 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 Qualifiers: Diabetes mellitus prison insulin use: unspecified prison insulin use status Qualified Code(s): E11.621 - Type 2 diabetes mellitus with foot ulcer; L97.509 - Non-pressure chronic ulcer of other part of unspecified foot with unspecified severity Is this a current diagnosis for this admission?: YesPlan: Follow up on wound culture findings. Continue daily wound dressing with Santyl ointment. Maintain on current antibiotic coverage. See attending physician orders. - Time Time Spent with patient: 25-34 minutes Medications reviewed and adjusted accordingly: Yes Anticipated discharge: Home with Homehealth Within: Other - Inpatient Certification Based on my medical assessment, after consideration of the patient's comorbidities, presenting symptoms, or acuity I expect that the services needed warrant INPATIENT care.: Yes I certify that my determination is in accordance with my understanding of Medicare's requirements for reasonable and necessary INPATIENT services [42 CFR 412.3e].: Yes Medical Necessity: Need Close Monitoring Due to Risk of Patient Decompensation, Need For IV Fluids, Need For Continuous Telemetry Monitoring, Need for Nebulizer Therapy and Monitoring of Response, Need for IV Antibiotics, Risk of Complication if Not Cared For in Hospital Post Hospital Care: D/C Terrazzo Finisher Documentation - Plan Summary Plan Summary: Jose De Jesus attending physician orders.
[2016-07-26] MEDS: EZETIMIBE 10 MG TABLET PO SCH (21:29)
[2016-07-26] MEDS: CEFTRIAXONE 1 GM/D5W RTU 1 GM/50 ML RTUPB IV SCH (21:30)
[2016-07-26] MEDS: ATORVASTATIN CALCIUM 10 MG TABLET PO SCH (21:33)
[2016-07-26] MEDS: COLLAGENASE CLOSTRIDIUM HIST. OINT 30 GM TP SCH (21:34)
[2016-07-27] MEDS: OXYCODONE-ACETAMINOPHEN 5-325 MG TABLET PO PRN ×3 (03:25→19:26)
[2016-07-27] MEDS: OXYCODONE HCL IR 5 MG TABLET PO PRN ×3 (03:26→19:27)
[2016-07-27] MEDS: SITAGLIPTIN PHOSPHATE 50 MG TABLET PO SCH (10:26)
[2016-07-27] MEDS: INSULIN GLARGINE,HUM.REC.ANLOG 300 UNIT/3 ML INSULN.PEN SUBCUT SCH ×2 (10:36→16:42)
[2016-07-27] MEDS: GABAPENTIN 300 MG CAPSULE PO SCH ×2 (10:37→21:40)
[2016-07-27] MEDS: METOPROLOL TARTRATE 50 MG TABLET PO SCH ×2 (10:38→16:42)
[2016-07-27] MEDS: ASPIRIN 81 MG TABLET, CHEWABLE PO SCH (10:39)
[2016-07-27] MEDS: CILOSTAZOL 100 MG TABLET PO SCH ×2 (10:39→16:41)
[2016-07-27] MEDS: DILTIAZEM HCL 120 MG CAP.SR.24H PO SCH ×2 (10:40→21:40)
[2016-07-27] MEDS: LEVOFLOXACIN 500 MG TABLET PO SCH (10:41)
[2016-07-27] MEDS: FUROSEMIDE 80 MG TABLET PO SCH (10:41)
[2016-07-27] MEDS: BUMETANIDE 1 MG TABLET PO SCH (10:41)
[2016-07-27] MEDS: ENOXAPARIN SODIUM INJ 40 MG/0.4 ML DISP.SYRIN SUBCUT SCH (10:43)
[2016-07-27] MEDS: LISINOPRIL 10 MG TABLET PO SCH (10:48)
[2016-07-27] MEDS: INSULIN LISPRO 100 UNIT/ML 3 ML VIAL SUBCUT SCH ×3 (10:48→16:46)
--- NOTE | 2016-07-27 19:32 | PDOC PROGRESS REPORT ---
Subjective Subjective:: Patient continue to experience morning hypoglycemia. She admitted to less oral intake while in the hospital. There is minimal abdominal pain limited to upper region of her abdomen. No nausea or vomiting. No fever or chills but reported remain cold. She denied any chest pain or difficulty with breathing. Physical Exam Vital Signs: Temp Pulse Resp BP Pulse Ox 98.2 F 69 16 101/51 L 98 07/27/16 15:19 07/27/16 15:19 07/27/16 15:19 07/27/16 15:19 07/27/16 15:19 Intake & Output 07/26/16 07/27/16 07/28/16 06:59 06:59 06:59 Intake Total 1201 1693 716 Output Total 850 3050 1700 Balance 222 -4723 -350 Weight 128.6 kg 127.3 kg Physical Exam: General appearance: PRESENT: no acute distress, cooperative, morbidly obese Head exam: PRESENT: atraumatic, normocephalic Eye exam: PRESENT: conjunctiva pink, EOMI, PERRLA. ABSENT: scleral icterus Respiratory exam: PRESENT: clear to auscultation jerrica, decreased breath sounds - at lung bases Cardiovascular exam: PRESENT: RRR. ABSENT: diastolic murmur, rubs, systolic murmur GI/Abdominal exam: ABSENT: ascites, diminished bowel sounds, distended, firm, guarding, hernia, hyperactive bowel sounds, hypoactive bowel sounds, tenderness , mass, Zimmer's sign, normal bowel sounds, organomegaly, rebound, rigid, soft, other Extremities exam: PRESENT: pedal edema - bilateral Musculoskeletal exam: PRESENT: deformity - related to joint involvement with arthritis Neurological exam: PRESENT: alert, awake, oriented to person, oriented to place , oriented to time, oriented to situation, CN II-XII grossly intact. ABSENT: motor sensory deficit Psychiatric exam: PRESENT: appropriate affect, normal mood. ABSENT: homicidal ideation, suicidal ideation Skin exam: PRESENT: dry, warm, other - infected chronic left heel diabetic pressure ulcer Results Laboratory Results: 07/26/16 05:56 07/26/16 05:56 07/23/16 07/23/16 07/23/16 12:10 12:10 18:06 Creatine Kinase 42 42 CK-MB (CK-2) 0.57 Troponin I 0.026 07/23/16 07/23/16 07/23/16 18:06 23:42 23:42 Creatine Kinase 35 CK-MB (CK-2) 0.53 0.42 Troponin I 0.019 0.017 Impressions: Chest X-Ray 07/23/16 05:55 IMPRESSION: Cardiomegaly and vascular congestion slightly increased from prior study. Chest/Abdomen CTA 07/23/16 06:55 IMPRESSION: NO ABDOMINAL AORTIC ANEURYSM, DISSECTION OR SIGNIFICANT STENOSIS. Ectasia of the abdominal aorta and iliac vessels with extensive vascular calcifications. Other findings as noted above Pelvis CTA 07/23/16 06:59 IMPRESSION: NO ACUTE OR SIGNIFICANT FINDINGS. 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 Continue all other current medication management. See attending physician orders. (2) Pneumonia Qualifiers: Pneumonia type: due to unspecified organism Laterality: bilateral Lung location: lower lobe of lung Qualified Code(s): J18.9 - Pneumonia, unspecified organism Is this a current diagnosis for this admission?: YesPlan: Continue IV Rocephin and Levofloxacin coverage. Blood culture did grew gram positive cocci in both sets of blood specimen. See attending physician orders. (3) Chronic pain syndrome Is this a current diagnosis for this admission?: YesPlan: See attending physician orders. (4) Chronic use of opiate for therapeutic purpose Is this a current diagnosis for this admission?: YesPlan: See attending physician orders. (5) HLD (hyperlipidemia) Qualifiers: Hyperlipidemia type: pure hypercholesterolemia Qualified Code(s): E78.00 - Pure hypercholesterolemia, unspecified; E78.0 - Pure hypercholesterolemia Is this a current diagnosis for this admission?: YesPlan: See attending physician orders. (6) HTN (hypertension) Qualifiers: Hypertension type: essential hypertension Qualified Code(s): I10 - Essential (primary) hypertension Is this a current diagnosis for this admission?: YesPlan: Maintain on current medication management. See attending physician orders. (7) Hx of stroke without residual deficits Is this a current diagnosis for this admission?: YesPlan: See attending physician orders. (8) PAD (peripheral artery disease) Is this a current diagnosis for this admission?: YesPlan: See attending physician orders. (9) S/P CABG (coronary artery bypass graft) Is this a current diagnosis for this admission?: YesPlan: See attending physician orders. (10) Acute on chronic systolic CHF (congestive heart failure) Is this a current diagnosis for this admission?: YesPlan: She maintain negative fluid balance. See attending physician orders. (11) 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 Qualifiers: Diabetes mellitus assisted insulin use: unspecified experimental machining lab manager insulin use status Qualified Code(s): E11.621 - Type 2 diabetes mellitus with foot ulcer; L97.509 - Non-pressure chronic ulcer of other part of unspecified foot with unspecified severity Is this a current diagnosis for this admission?: YesPlan: Her wound culture grew Proteus Mirabilis, Gram positive cocci in chain and gram negative rods along with normal skin aly. Continue daily wound dressing with Santyl ointment and current antibiotic coverage. I will request surgicalist consultation for wound debridement. See attending physician orders. - Time Time Spent with patient: 25-34 minutes Medications reviewed and adjusted accordingly: Yes Anticipated discharge: Home with Homehealth Within: Other - Inpatient Certification Based on my medical assessment, after consideration of the patient's comorbidities, presenting symptoms, or acuity I expect that the services needed warrant INPATIENT care.: Yes I certify that my determination is in accordance with my understanding of Medicare's requirements for reasonable and necessary INPATIENT services [42 CFR 412.3e].: Yes Medical Necessity: Need For Continuous Telemetry Monitoring, Need for Nebulizer Therapy and Monitoring of Response, Need for Pain Control, Need for IV Antibiotics, Need for Surgery, Risk of Complication if Not Cared For in Hospital Post Hospital Care: D/C Elevator Starter Documentation - Plan Summary Plan Summary: See attending physician orders.
[2016-07-27] MEDS: EZETIMIBE 10 MG TABLET PO SCH (21:39)
[2016-07-27] MEDS: ATORVASTATIN CALCIUM 10 MG TABLET PO SCH (21:40)
[2016-07-27] MEDS: CEFTRIAXONE 1 GM/D5W RTU 1 GM/50 ML RTUPB IV SCH (21:41)
[2016-07-27] MEDS: COLLAGENASE CLOSTRIDIUM HIST. OINT 30 GM TP SCH (21:50)
[2016-07-27] MEDS: INSULIN LISPRO 100 UNIT/ML 3 ML VIAL SUBCUT PRN (21:50)
[2016-07-28] MEDS: OXYCODONE-ACETAMINOPHEN 5-325 MG TABLET PO PRN ×3 (02:04→22:20)
[2016-07-28] MEDS: OXYCODONE HCL IR 5 MG TABLET PO PRN ×3 (02:05→22:21)
[2016-07-28] MEDS ORDERED: DOPAMINE HCL/DEXTROSE 5%-WATER 800 MG/250 ML RTUINJ IV ONE (05:16)
[2016-07-28 05:18] LABS: ALANINE AMINOTRANSFERASE 26 U/L (9-52); ALBUMIN 2.7 g/dL (3.5-5.0); ALKALINE PHOSPHATASE 164 U/L (38-126); ANION GAP 12 (5-19); ASPARTATE AMINO TRANSFERASE 25 U/L (14-36); BILIRUBIN,DIRECT 0.4 mg/dL (0.0-0.4); BILIRUBIN,TOTAL 0.8 mg/dL (0.2-1.3); BLOOD UREA NITROGEN 40 mg/dL (7-20); CARBON DIOXIDE 31 mmol/L (22-30); CHLORIDE 98 mmol/L (98-107); CREATININE RESULT 1.39 mg/dL (0.52-1.25); GLUCOSE 186 mg/dL (75-110); POTASSIUM 5.1 mmol/L (3.6-5.0); SODIUM 140.5 mmol/L (137-145); TOTAL PROTEIN 6.2 g/dL (6.3-8.2)
[2016-07-28 05:24] LABS: HEMATOCRIT 29.1 % (36.0-47.0); HGB HCT DIFFERENCE -2.1; MEAN CORPUSCULAR HEMOGLOBIN 26.3 pg (27.0-33.4); MEAN CORPUSCULAR VOLUME 85 fl (80-97); RED BLOOD COUNT 3.43 10^6/uL (3.72-5.28); RED CELL DISTRIBUTION WIDTH 16.8 % (11.5-14.0); WHITE BLOOD COUNT 18.7 10^3/uL (4.0-10.5)
[2016-07-28] MEDS ORDERED: NITROGLYCERIN 2% OINTMENT 1 GM PACKET ONE (05:47)
[2016-07-28] MEDS ORDERED: ONDANSETRON HCL INJ/PF 4 MG/2 ML SDV ONE (05:47)
[2016-07-28 06:17] LABS: BASOPHILS % (MANUAL) 0 % (0-2); EOSINOPHILS % (MANUAL) 3 % (0-6); LYMPHOCYTES % (MANUAL) 24 % (13-45); TOTAL CELLS COUNTED 100
[2016-07-28] MEDS ORDERED: ONDANSETRON HCL INJ/PF 4 MG/2 ML SDV IV PRN (06:19)
[2016-07-28 06:20] LABS: ANISOCYTOSIS 1+; HYPOCHROMASIA SLIGHT; POLYCHROMASIA SLIGHT; TARGET CELLS SLIGHT; TOXIC GRANULATION SLIGHT; TOXIC VACUOLATION PRESENT
[2016-07-28] MEDS ORDERED: DOPAMINE HCL 800 MG/D5W 250 ML IV PRN (06:20)
[2016-07-28 06:21] LABS: CREATINE KINASE MB 0.57 ng/mL (<4.55)
[2016-07-28 06:29] LABS: TROPONIN I < 0.012 ng/mL
[2016-07-28] MEDS ORDERED: ONDANSETRON HCL INJ/PF 4 MG/2 ML SDV IV ONE (06:30)
[2016-07-28] MEDS ORDERED: NITROGLYCERIN 2% OINTMENT 1 GM PACKET TP ONE (06:30)
--- NOTE | 2016-07-28 07:15 | EKG REPORT ---
SEVERITY:- ABNORMAL ECG - SINUS OR ECTOPIC ATRIAL RHYTHM SUPRAVENTRICULAR BIGEMINY NONSPECIFIC ST-T CHANGES- INFERIOR LATERAL LEADS : Confirmed by: Yobany Marino MD 28-Jul-2016 07:14:55
--- NOTE | 2016-07-28 08:48 | PDOC PROGRESS REPORT ---
Subjective Progress Note for:: 07/28/16 Subjective:: Patient was transferred to ICU since last clinical evaluation due to reported episode of bradycardia on custom ski maker, difficulty with arousal and associated low blood pressure. She has been on IV fluid support and dopamine infusion with some improvement in her clinical status. There was episode of nausea with vomiting since arrival in ICU with complaint of pressure like pain in her chest. Patient has been started on Nitroglycerin paste. Awaiting cardiac consultation with Dr. Cooney. Blood and wound culture did grew bacteria with worsening leukocytosis despite IV Levofloxacin and Rocephin coverage. There is slight worsening of her renal indices. Physical Exam Vital Signs: Temp Pulse Resp BP Pulse Ox 98.1 F 66 12 117/64 95 07/28/16 08:00 07/28/16 08:00 07/28/16 08:00 07/28/16 08:00 07/28/16 08:00 Intake & Output 07/27/16 07/28/16 07/29/16 06:59 06:59 06:59 Intake Total 1693 1016 Output Total 3050 3650 185 Balance -6817 -7634 -185 Weight 127.3 kg Physical Exam: General appearance: PRESENT: no acute distress, cooperative, morbidly obese Head exam: PRESENT: atraumatic, normocephalic Eye exam: PRESENT: conjunctiva pink, EOMI, PERRLA. ABSENT: scleral icterus Respiratory exam: PRESENT: clear to auscultation jerrica, decreased breath sounds - at lung bases Cardiovascular exam: PRESENT: RRR. ABSENT: diastolic murmur, rubs, systolic murmur GI/Abdominal exam: ABSENT: ascites, diminished bowel sounds, distended, firm, guarding, hernia, hyperactive bowel sounds, hypoactive bowel sounds, tenderness , mass, Zimmer's sign, normal bowel sounds, organomegaly, rebound, rigid, soft, other Extremities exam: PRESENT: pedal edema - bilateral, comparatively better. Musculoskeletal exam: PRESENT: deformity - related to joint involvement with arthritis Neurological exam: PRESENT: alert, awake, oriented to person, oriented to place , oriented to time, oriented to situation, CN II-XII grossly intact. ABSENT: motor sensory deficit Psychiatric exam: PRESENT: appropriate affect, normal mood. ABSENT: homicidal ideation, suicidal ideation Skin exam: Temporary pacemaker pad on chest wall possible need of use. PRESENT: dry, warm, other - infected chronic left heel diabetic pressure ulcer Results Laboratory Results: 07/28/16 04:45 07/28/16 04:45 07/28/16 07/28/16 04:45 04:45 WBC 18.7 H RBC 3.43 L Hgb 9.0 L Hct 29.1 L MCV 85 MCH 26.3 L MCHC 31.0 L RDW 16.8 H Plt Count 360 Seg Neutrophils % Not Reportable Lymphocytes % Not Reportable Monocytes % Not Reportable Eosinophils % Not Reportable Basophils % Not Reportable Absolute Neutrophils Not Reportable Absolute Lymphocytes Not Reportable Absolute Monocytes Not Reportable Absolute Eosinophils Not Reportable Absolute Basophils Not Reportable Sodium 140.5 Potassium 5.1 H Chloride 98 Carbon Dioxide 31 H Anion Gap 12 BUN 40 H Creatinine 1.39 H Est GFR ( Amer) 47 L Est GFR (Non-Af Amer) 39 L Glucose 186 H Calcium 9.0 Total Bilirubin 0.8 AST 25 ALT 26 Alkaline Phosphatase 164 H Total Protein 6.2 L Albumin 2.7 L 07/23/16 07/23/16 07/23/16 12:10 12:10 18:06 Creatine Kinase 42 42 CK-MB (CK-2) 0.57 Troponin I 0.026 07/23/16 07/23/16 07/23/16 18:06 23:42 23:42 Creatine Kinase 35 CK-MB (CK-2) 0.53 0.42 Troponin I 0.019 0.017 07/28/16 07/28/16 04:39 04:39 Creatine Kinase 105 CK-MB (CK-2) 0.57 Troponin I < 0.012 Impressions: Chest X-Ray 07/23/16 05:55 IMPRESSION: Cardiomegaly and vascular congestion slightly increased from prior study. Chest/Abdomen CTA 07/23/16 06:55 IMPRESSION: NO ABDOMINAL AORTIC ANEURYSM, DISSECTION OR SIGNIFICANT STENOSIS. Ectasia of the abdominal aorta and iliac vessels with extensive vascular calcifications. Other findings as noted above Pelvis CTA 07/23/16 06:59 IMPRESSION: NO ACUTE OR SIGNIFICANT FINDINGS. Assessment & Plan - Diagnosis (1) Hyperglycemia due to type 2 diabetes mellitus Qualifiers: Diabetes mellitus correction insulin use: with correction use Qualified Code(s): E11.65 - Type 2 diabetes mellitus with hyperglycemia Is this a current diagnosis for this admission?: YesPlan: See attending physician orders. (2) Pneumonia Qualifiers: Pneumonia type: due to unspecified organism Laterality: bilateral Lung location: lower lobe of lung Qualified Code(s): J18.9 - Pneumonia, unspecified organism Is this a current diagnosis for this admission?: YesPlan: See attending physician orders. (3) Chronic pain syndrome Is this a current diagnosis for this admission?: YesPlan: See attending physician orders. (4) Chronic use of opiate for therapeutic purpose Is this a current diagnosis for this admission?: YesPlan: See attending physician orders. (5) HLD (hyperlipidemia) Qualifiers: Hyperlipidemia type: pure hypercholesterolemia Qualified Code(s): E78.00 - Pure hypercholesterolemia, unspecified; E78.0 - Pure hypercholesterolemia Is this a current diagnosis for this admission?: YesPlan: See attending physician orders. (6) HTN (hypertension) Qualifiers: Hypertension type: essential hypertension Qualified Code(s): I10 - Essential (primary) hypertension Is this a current diagnosis for this admission?: YesPlan: See attending physician orders. (7) Hx of stroke without residual deficits Is this a current diagnosis for this admission?: YesPlan: See attending physician orders. (8) PAD (peripheral artery disease) Is this a current diagnosis for this admission?: YesPlan: See attending physician orders. (9) S/P CABG (coronary artery bypass graft) Is this a current diagnosis for this admission?: YesPlan: See attending physician orders. (10) Acute on chronic systolic CHF (congestive heart failure) Is this a current diagnosis for this admission?: YesPlan: See attending physician orders. (11) 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 Qualifiers: Diabetes mellitus correction insulin use: unspecified correction insulin use status Qualified Code(s): E11.621 - Type 2 diabetes mellitus with foot ulcer; L97.509 - Non-pressure chronic ulcer of other part of unspecified foot with unspecified severity Is this a current diagnosis for this admission?: YesPlan: Follow up on surgicalist consultation request. Add IV Vancomycin coverage pending organism identification and sensitivity findings on her blood and wound culture. See attending physician orders. (12) Supraventricular arrhythmia Is this a current diagnosis for this admission?: NoPlan: Necessitating transfer to ICU with temporary pacemaker on standby. Patient will remain on IV Dopamine therapy. Follow up on cardiology consultation with Dr. Cooney. Her cardiac enzyme presently in normal range. Maintain on low dose Nitropaste therapy, D/C Metoprolol and Diltiazem usage. - Time Time Spent with patient: 35 or more minutes Critical Time spent with patient: 15-24 minutes Medications reviewed and adjusted accordingly: Yes Anticipated discharge: Home with Homehealth Within: Other - Inpatient Certification Medical Necessity: Need Close Monitoring Due to Risk of Patient Decompensation, Need For IV Fluids, Need For Continuous Telemetry Monitoring, Need for IV Antibiotics, Need for Surgery, Risk of Complication if Not Cared For in Hospital Post Hospital Care: D/C Senior Care Provider Documentation - Plan Summary Plan Summary: See attending physician orders.
[2016-07-28] MEDS ORDERED: VANCOMYCIN HCL 0 MG in DEXTROSE 5%-WATER 250 ML IV NR (09:00)
[2016-07-28] MEDS: LEVOFLOXACIN 500 MG TABLET PO SCH (10:40)
[2016-07-28] MEDS: ASPIRIN 81 MG TABLET, CHEWABLE PO SCH (10:41)
[2016-07-28] MEDS: GABAPENTIN 300 MG CAPSULE PO SCH ×2 (10:41→22:20)
[2016-07-28] MEDS: FUROSEMIDE 80 MG TABLET PO SCH (10:42)
[2016-07-28] MEDS: VANCOMYCIN HCL 1,000 MG in DEXTROSE 5%-WATER 250 ML IV SCH ×2 (10:42→22:19)
[2016-07-28] MEDS: BUMETANIDE 1 MG TABLET PO SCH (10:43)
[2016-07-28] MEDS: ENOXAPARIN SODIUM INJ 40 MG/0.4 ML DISP.SYRIN SUBCUT SCH (10:44)
[2016-07-28] MEDS: INSULIN GLARGINE,HUM.REC.ANLOG 300 UNIT/3 ML INSULN.PEN SUBCUT SCH ×2 (10:45→17:38)
[2016-07-28] MEDS: LISINOPRIL 10 MG TABLET PO SCH (10:47)
[2016-07-28] MEDS: CILOSTAZOL 100 MG TABLET PO SCH ×2 (10:47→17:41)
[2016-07-28] MEDS: SITAGLIPTIN PHOSPHATE 50 MG TABLET PO SCH (10:47)
[2016-07-28] MEDS: INSULIN LISPRO 100 UNIT/ML 3 ML VIAL SUBCUT SCH ×2 (10:47→17:39)
[2016-07-28 11:13] LABS: CREATINE KINASE MB 1.16 ng/mL (<4.55); TROPONIN I 0.013 ng/mL
--- NOTE | 2016-07-28 12:24 | PDOC CONSULTATION ---
Consultation Consult Date: 07/28/16 Attending physician:: STEPHAN TAFOYA Consult reason:: Bradycardia, hypotension, chest pain History of Present Illness Admission Date/PCP: 07/23/16 11:36 STEPHAN TAFOYA Patient complains of: Currently patient is lethargic from medication and therefore not able to verbalize much complaints. History of Present Illness: JAVIER BURGER is a 60 year old female, patient of Dr. Tafoya admitted through emergency room because of shortness of breath, chest pain abdominal pain. She was evaluated CTA chest was done and showed tiny bilateral pleural effusions with associated air space consolidation in the lung bases which could represent atelectasis or infiltrate that was also associated leukocytosis. No pulmonary emboli was found. She also has CT of the abdomen done because she complained of abdominal pain in the emergency room, it s sheowed ectasia of the abdominal aorta with extensive vascular calcifications.. , She was a smoker until couple of months ago she also have ulcer in the right leg that is managed in wound clinic, the ulcer is wrapped in bandage. While being monitored on the floor, she was noted to be bradycardic, hypotensive. Patient was shifted to the unit where she complained of chest pain and had some nausea and vomiting. This history was reviewed, supplemented from nurses and confirmed. Patient currently lethargic having received some medication for nausea and vomiting. Past Medical History Cardiac Medical History: Reports: Congestive Heart Failure, Coronary Artery Disease, Myocardial Infarction, Hyperlipidema, Hypertension, Peripheral Vascular Disease Denies: Atrial Fibrillation, Pulmonary Embolism, Heart Murmur Pulmonary Medical History: Reports: Bronchitis Denies: Asthma, Chronic Obstructive Pulmonary Disease (COPD), Pneumonia, Respiratory Failure, Sleep Apnea, Tuberculosis Neurological Medical History: Denies: Seizures Endocrine Medical History: Reports: Diabetes Mellitus Type 1, Diabetes Mellitus Type 2 Denies: Hyperthyroidism, Hypothyroidism Renal/ Medical History: Denies: End Stage Renal Disease Malignancy Medical History: Denies: Breast Cancer, Cervical Cancer, Leukemia, Lung Cancer, Ovarian Cancer GI Medical History: Reports: Diverticulitis - diverticulosis Denies: Crohn's Disease, Gastroesophageal Reflux Disease, Hiatal Hernia Musculoskeltal Medical History: Denies: Arthritis, Fibromyalgia Psychiatric Medical History: Denies: Bipolar Disorder, Dementia, Depression, Post Traumatic Stress Disorder Hematology: Denies: Anemia, Hemophilia, Sickle Cell Disease Infectious Medical History: Denies: HIV Past Surgical History Past Surgical History: Reports: Coronary Artery Bypass Graft - July 31 2011, Tonsillectomy, Vascular Surgery Denies: Amputation, Appendectomy, Cardiac Catheterization, Section, Cholecystectomy, Colostomy, Gastric Bypass Surgery, Herniorrhaphy, Hysterectomy , Mastectomy, Pacemaker, Tubal Ligation Social History Information Source: Relative Smoking Status: Former Smoker - quit 3 months ago Frequency of Alcohol Use: None Hx Recreational Drug Use: No Drugs: None Hx Prescription Drug Abuse: No - Advance Directive Resuscitation Status: Full Code Surrogate healthcare decision maker:: Patient's daughter is the surrogate decision maker Family History Family History: CAD, Hyperlipidemia, Hypertension Parental Family History Reviewed: Yes Children Family History Reviewed: Yes Sibling(s) Family History Reviewed.: Yes Medication/Allergy Home Medications: Cilostazol 50 mg PO BID 03/06/14 Ezetimibe [Zetia 10 mg Tablet] 10 mg PO QHS 03/06/14 Furosemide [Lasix] 80 mg PO QAM 03/06/14 Metformin HCl [Glucophage] 850 mg PO BID 03/06/14 Metoprolol Tartrate [Lopressor 50 mg Tablet] 75 mg PO BID 03/06/14 Pravastatin Sodium [Pravachol] 20 mg PO QHS 03/06/14 Linagliptin [Tradjenta] 5 mg PO DAILY 01/21/15 Amlodipine Besylate 10 mg PO DAILY #30 12/15/15 Aspirin [Aspirin 81 mg Chewable Tablet] 81 mg PO DAILY #30 12/15/15 Oxycodone HCl/Acetaminophen [Percocet 7.5-325 mg Tablet] 1 each PO Q4H PRN 12/17 Insulin Glargine,Hum.rec.anlog [Lantus Solostar] 40 units SUBCUT BIDBS 12/23/15 Insulin Lispro [Humalog Kwikpen U-100] 10 units SUBCUT AC 12/23/15 Lisinopril [Prinivil 30 mg Tablet] 30 mg PO BID 02/08/16 Bumetanide [Bumex 1 mg Tablet] 1 mg PO DAILY #30 tablet 04/03/16 Collagenase Clostridium Hist. [Santyl Ointment 30 gm] 1 applic TP QHS #1 tube Gabapentin [Neurontin 300 mg Capsule] 600 mg PO Q12 #60 capsule 04/03/16 Diltiazem HCl [Cartia Xt] 120 mg PO DAILY 07/23/16 Allergies/Adverse Reactions: pregabalin [From Lyrica] Allergy (Verified 06/12/16 12:16) Review of Systems ROS unobtainable: Due to mental status Review of Systems: Currently patient is unable to participate because of being very lethargic from medication. Physical Exam Vital Signs: Temp Pulse Resp BP Pulse Ox 98.1 F 65 12 117/65 99 07/28/16 10:00 07/28/16 10:00 07/28/16 10:00 07/28/16 10:00 07/28/16 10:00 Intake & Output 07/27/16 07/28/16 07/29/16 06:59 06:59 06:59 Intake Total 1693 1016 100 Output Total 3050 3830 385 Balance -0747 -6544 -391 Weight 127.3 kg Exam: GENERAL: well-nourished and in no acute distress. Patient is lethargic but not goes back to sleep immediately. She can be awakened to answer a few questions. HEAD: Atraumatic, normocephalic. EYES: Pupils equal round and reactive to light, extraocular movements intact, sclera anicteric, conjunctiva are normal. ENT: TMs normal, nares patent, oropharynx clear without exudates. Moist mucous membranes. No oral ulcerations or bleeding gums noted NECK: supple without lymphadenopathy or JVD. Trachea is central. No cervical or axillary lymphadenopathy noted. Carotids are 2+ LUNGS: Breath sounds bibasilar fine crackles at bases. No significant dullness noted. CHEST: Palpation of chest wall shows no significant chest wall tenderness. HEART: [place] [facility] [employer] TECH, No PSH, 2/6 KASSY aortic area, 1/6 zacarias systolic murmur mitral area, rubs or gallops. ABDOMEN: Soft, no significant tenderness appreciated, normoactive bowel sounds. No guarding, no rebound. No rigidity noted . No masses appreciated. EXTREMITIES: Pedal pulses are 1-2+, no calf tenderness noted, Trace + pedal edema noted. No clubbing or cyanosis. Left foot in wraps because of a ulcer. NEUROLOGICAL: Patient is lethargic and is not able to participate in neurological exam because of patient's current mental status PSYCH: Patient cannot participate in a neurologic and psych exam because of the patient's current mental status SKIN: No significant ecchymosis, rash, or signs of pruritus noted. MUSCULOSKELETAL EXAM: No significant joint swelling noted. Results Laboratory Results: 07/28/16 04:45 07/28/16 04:45 07/28/16 07/28/16 04:45 04:45 WBC 18.7 H RBC 3.43 L Hgb 9.0 L Hct 29.1 L MCV 85 MCH 26.3 L MCHC 31.0 L RDW 16.8 H Plt Count 360 Seg Neutrophils % Not Reportable Lymphocytes % Not Reportable Monocytes % Not Reportable Eosinophils % Not Reportable Basophils % Not Reportable Absolute Neutrophils Not Reportable Absolute Lymphocytes Not Reportable Absolute Monocytes Not Reportable Absolute Eosinophils Not Reportable Absolute Basophils Not Reportable Sodium 140.5 Potassium 5.1 H Chloride 98 Carbon Dioxide 31 H Anion Gap 12 BUN 40 H Creatinine 1.39 H Est GFR ( Amer) 47 L Est GFR (Non-Af Amer) 39 L Glucose 186 H Calcium 9.0 Total Bilirubin 0.8 AST 25 ALT 26 Alkaline Phosphatase 164 H Total Protein 6.2 L Albumin 2.7 L 07/23/16 07/23/16 07/23/16 12:10 12:10 18:06 Creatine Kinase 42 42 CK-MB (CK-2) 0.57 Troponin I 0.026 07/23/16 07/23/16 07/23/16 18:06 23:42 23:42 Creatine Kinase 35 CK-MB (CK-2) 0.53 0.42 Troponin I 0.019 0.017 07/28/16 07/28/16 07/28/16 04:39 04:39 10:25 Creatine Kinase 105 203 H CK-MB (CK-2) 0.57 Troponin I < 0.012 07/28/16 10:25 Creatine Kinase CK-MB (CK-2) 1.16 Troponin I 0.013 EKG Comments: Atrial ectopic rhythm, APCs, no acute ST segment changes Impressions: Chest X-Ray 07/23/16 05:55 IMPRESSION: Cardiomegaly and vascular congestion slightly increased from prior study. Chest/Abdomen CTA 07/23/16 06:55 IMPRESSION: NO ABDOMINAL AORTIC ANEURYSM, DISSECTION OR SIGNIFICANT STENOSIS. Ectasia of the abdominal aorta and iliac vessels with extensive vascular calcifications. Other findings as noted above Pelvis CTA 07/23/16 06:59 IMPRESSION: NO ACUTE OR SIGNIFICANT FINDINGS. Assessment & Plan - Diagnosis (1) Hypotension Qualifiers: Hypotension type: unspecified hypotension type Qualified Code(s): I95.9 - Hypotension, unspecified Is this a current diagnosis for this admission?: YesPlan: Currently hypotensive on dopamine drip. May consider short fluid boluses. Blood pressure been stable on dopamine drip. (2) Bradycardia Is this a current diagnosis for this admission?: YesPlan: Exact etiology not clear but could well be vagal stimulation from nausea and vomiting but could well be related to medication. At this point agree with dopamine drip and observe patient. (3) HTN (hypertension) Qualifiers: Hypertension type: essential hypertension Qualified Code(s): I10 - Essential (primary) hypertension Is this a current diagnosis for this admission?: YesPlan: Currently patient hypotensive. Blood pressure meds on hold. (4) Chest pain Qualifiers: Chest pain type: unspecified Qualified Code(s): R07.9 - Chest pain, unspecified Is this a current diagnosis for this admission?: YesPlan: Cycle cardiac enzymes and serial EKG. (5) Congestive heart failure (CHF) Qualifiers: Congestive heart failure type: unspecified congestive heart failure type Congestive heart failure chronicity: acute on chronic Qualified Code(s ): I50.9 - Heart failure, unspecified Is this a current diagnosis for this admission?: YesPlan: Currently seems compensated based on clinical evaluation. 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 Qualified Code(s): E11.621 - Type 2 diabetes mellitus with foot ulcer; L97.509 - Non-pressure chronic ulcer of other part of unspecified foot with unspecified severity Is this a current diagnosis for this admission?: YesPlan: Patient being managed by valving machine operator and in the wound care clinic (7) HLD (hyperlipidemia) Qualifiers: Hyperlipidemia type: pure hypercholesterolemia Qualified Code(s): E78.00 - Pure hypercholesterolemia, unspecified; E78.0 - Pure hypercholesterolemia Is this a current diagnosis for this admission?: Yes (8) CAD (coronary artery disease) Qualifiers: Coronary Disease-Associated Artery/Lesion type: unspecified vessel or lesion type [place] vs. transplanted heart: [place] heart Associated angina: without angina Qualified Code(s): I25.10 - Atherosclerotic heart disease of [place] coronary artery without angina pectoris Is this a current diagnosis for this admission?: YesPlan: Patient had some chest pain. Exact etiology not clear. So far cardiac enzymes are negative. Patient has history of CABG, four-vessel within the last several years. - Notes Notes: CODE STATUS was discussed, patient remains full code. Surrogate decision-maker unchanged. Multiple medical problems were addressed. - Time Time Spent: 30 to 50 Minutes Medications reviewed and adjusted accordingly: Yes
[2016-07-28] MEDS: CEFTRIAXONE 1 GM/D5W RTU 1 GM/50 ML RTUPB IV SCH (17:40)
[2016-07-28] MEDS: NITROGLYCERIN 2% OINTMENT 1 GM PACKET TP SCH (17:41)
[2016-07-28 18:08] LABS: CREATINE KINASE MB 0.65 ng/mL (<4.55)
[2016-07-28] MEDS ORDERED: LIDOCAINE 1% INJ-PF (10 MG/ML) 30 ML SDV ONE (18:19)
[2016-07-28 18:20] LABS: TROPONIN I < 0.012 ng/mL
--- NOTE | 2016-07-28 19:33 | OPERATIVE REPORT E ---
Operative Report NAME: JAVIER BURGER : 1955 AGE: 60Y DATE OF SURGERY: 07/28/2016 ROOM: 606 PREOPERATIVE DIAGNOSIS: Necrotic left heel decubitus ulcer. POSTOPERATIVE DIAGNOSIS: Necrotic left heel decubitus ulcer. OPERATION: Debridement of left heel decubitus ulcer. SURGEON: BRAIN ANDRE M.D. ANESTHESIA: Local 1% Xylocaine. COMPLICATIONS: None. CONDITION: Stable. FINDINGS: The patient had a 7 x 7 cm decubitus ulcer on the left heel involving the medial and posterior aspect of the left heel with liquefaction necrosis. The patient is in need of debridement. PROCEDURE: After consent was obtained, the patient's left heel was prepped and draped in the usual sterile manner. Using sharp excisional debridement using a scalpel, the skin underlying subcutaneous tissue and fascia were debrided as there was evidence of liquefaction necrosis. We debrided the heel to the central portion, which was approximately 2 cm deep, which involved the periosteum of the calcaneus. We debrided all necrotic tissue and all liquefaction necrosis until there was bleeding noted. There was deep extension of this infection into the subcutaneous tissue and this was also debrided. The bleeding was controlled using pressure and after adequate debridement, the patient had additional necrosis and after all necrotic tissue was removed, the wound was packed with Xeroform gauze with Bacitracin ointment on it, and multiple 4 x 4s for pressure dressing. The 4 x 4s were applied along with the Xeroform gauze, and Kerlix was wrapped to maintain a pressure dressing. DICTATING PHYSICIAN: BRAIN ANDRE M.D. [id number] PHY#: [id number] ID: [id number] JOB#: [id number] ACCT: [id number] cc:BRAIN ANDRE M.D. >
--- NOTE | 2016-07-28 20:08 | CONSULTATION REPORT E ---
Consultation Report NAME: JAVIER BURGER : 1955 AGE: 60Y DATE: 606 A TO: BRAIN ANDRE M.D. FROM: STEPHAN TAFOYA M.D. Requesting Physician REASON FOR CONSULTATION: Left heel decubitus ulcer. This 60-year-old female is a patient of Dr. Tafoya. She presented to the emergency room with shortness of breath, chest pain, and abdominal pain. The patient underwent a CTA of the chest that showed tiny bilateral pleural effusions, which represented tiny pleural effusions with associated airspace consolidation in lung bases, which was either atelectasis or an infiltrate. The patient also complained of abdominal pain in the ER, and she was found to have ectasia of the abdominal aorta. When the patient was fully examined, she was noted to have a decubitus ulcer of the left heel with overlying eschar which needed debridement. For this reason, surgical consultation was requested. PAST MEDICAL HISTORY: History of congestive heart failure, coronary artery disease, [place], hyperlipidemia, hypertension, peripheral vascular disease. The patient also has a history of bronchitis, diabetes mellitus, diverticulitis, and diverticulosis. PAST SURGICAL HISTORY: Coronary artery bypass grafting on July 31, 2011. Tonsillectomy. MEDICATIONS: 1. Cilostazol. 2. Zetia. 3. Lasix. 4. Glucophage. 5. Lopressor. 6. Pravachol. 7. Tradjenta. 8. Amlodipine. 9. Besylate. 10. Aspirin. 11. Percocet. 12. Lantus SoloStar. 13. Humalog. 14. Prinivil. 15. Bumex. 16. Santyl ointment. 17. Neurontin. 18. Cartia. ALLERGIES: LYRICA REVIEW OF SYSTEMS: As per her primary care physician. PHYSICAL EXAMINATION: Pertinent findings to this exam are limited to the left heel, where the patient has a 7 x 7 cm pressure ulcer on the medial aspect of the left heel extending to the posterior aspect. There is foul-smelling discharge noted and liquefaction necrosis is observed. IMPRESSION: Decubitus ulcer of left heel. PLAN: The patient is to undergo debridement at the bedside. DICTATING PHYSICIAN: BRAIN ANDRE M.D. [id number] PHY#: [id number] ID: [id number] JOB#: [id number] ACCT: [id number] cc:BRAIN ANDRE M.D. >
[2016-07-28] MEDS: ATORVASTATIN CALCIUM 10 MG TABLET PO SCH (22:19)
[2016-07-28] MEDS: EZETIMIBE 10 MG TABLET PO SCH (22:19)
[2016-07-28] MEDS: COLLAGENASE CLOSTRIDIUM HIST. OINT 30 GM TP SCH (22:21)
[2016-07-29] MEDS: NITROGLYCERIN 2% OINTMENT 1 GM PACKET TP SCH ×4 (00:58→17:29)
[2016-07-29 01:41] LABS: CREATINE KINASE MB 0.49 ng/mL (<4.55)
[2016-07-29 01:43] LABS: TROPONIN I < 0.012 ng/mL
[2016-07-29] MEDS: INSULIN GLARGINE,HUM.REC.ANLOG 300 UNIT/3 ML INSULN.PEN SUBCUT SCH ×2 (08:37→17:28)
[2016-07-29] MEDS: ENOXAPARIN SODIUM INJ 40 MG/0.4 ML DISP.SYRIN SUBCUT SCH (08:38)
[2016-07-29] MEDS: INSULIN LISPRO 100 UNIT/ML 3 ML VIAL SUBCUT SCH ×3 (08:39→17:28)
--- NOTE | 2016-07-29 09:11 | PDOC PROGRESS REPORT ---
Subjective Progress Note for:: 07/29/16 Subjective:: This is 60-year-old female with multiple medical problems initially admitted for the sepsis to the wound and the pneumonia and currently on IV vancomycin and Levaquin admitted in the ICU because of the hypotension and bradycardia and her Dr. Nolan the patient on her dopamine drips and patient's currently off the dopamine drips and doing very well. Patient's denied any chest pain denied any shortness of the breath denied any abdominal pain. Patient also seen by the surgery for the wound is all stable Physical Exam Vital Signs: Temp Pulse Resp BP Pulse Ox 98.1 F 84 11 L 130/67 H 96 07/29/16 08:00 07/29/16 08:00 07/29/16 08:00 07/29/16 08:00 07/29/16 08:00 Intake & Output 07/28/16 07/29/16 07/30/16 06:59 06:59 06:59 Intake Total 1016 1284 Output Total 3650 1980 400 Balance -2634 -696 -400 Weight 107.8 kg General appearance: PRESENT: no acute distress Head exam: PRESENT: normocephalic Eye exam: PRESENT: PERRLA Mouth exam: PRESENT: neck supple Respiratory exam: PRESENT: clear to auscultation jerrica Cardiovascular exam: PRESENT: +S1, +S2 GI/Abdominal exam: PRESENT: normal bowel sounds, soft. ABSENT: tenderness Neurological exam: PRESENT: alert, awake, oriented to person, oriented to place , oriented to time Psychiatric exam: PRESENT: normal mood Skin exam: PRESENT: normal color Results Laboratory Results: 07/28/16 04:45 07/28/16 04:45 07/23/16 12:50 Foot - Left Heel Gram Stain - Final 07/23/16 12:50 Foot - Left Heel Wound Culture - Final Proteus Mirabilis Enterococcus Faecalis(Group D) Skin Gabriella No Anaerobic Organisms 07/23/16 07/23/16 07/23/16 12:10 12:10 18:06 Creatine Kinase 42 42 CK-MB (CK-2) 0.57 Troponin I 0.026 07/23/16 07/23/16 07/23/16 18:06 23:42 23:42 Creatine Kinase 35 CK-MB (CK-2) 0.53 0.42 Troponin I 0.019 0.017 03/07/28/16 07/28/16 04:39 04:39 10:25 Creatine Kinase 105 203 H CK-MB (CK-2) 0.57 Troponin I < 0.012 07/28/16 07/28/16 07/28/16 10:25 17:20 17:20 Creatine Kinase 157 H CK-MB (CK-2) 1.16 0.65 Troponin I 0.013 < 0.012 07/29/16 07/29/16 00:35 00:35 Creatine Kinase 166 H CK-MB (CK-2) 0.49 Troponin I < 0.012 Impressions: Chest X-Ray 07/23/16 05:55 IMPRESSION: Cardiomegaly and vascular congestion slightly increased from prior study. Chest/Abdomen CTA 07/23/16 06:55 IMPRESSION: NO ABDOMINAL AORTIC ANEURYSM, DISSECTION OR SIGNIFICANT STENOSIS. Ectasia of the abdominal aorta and iliac vessels with extensive vascular calcifications. Other findings as noted above Pelvis CTA 07/23/16 06:59 IMPRESSION: NO ACUTE OR SIGNIFICANT FINDINGS. Assessment & Plan - Diagnosis (1) Bradycardia Is this a current diagnosis for this admission?: YesPlan: Currently all resolving and stable follow with the cardiology (2) CHF (congestive heart failure) Qualifiers: Congestive heart failure type: unspecified congestive heart failure type Congestive heart failure chronicity: acute on chronic Qualified Code(s): I50.9 - Heart failure, unspecified Is this a current diagnosis for this admission?: YesPlan: Continues the current medications (3) Hypotension Qualifiers: Hypotension type: unspecified hypotension type Qualified Code(s): I95.9 - Hypotension, unspecified Is this a current diagnosis for this admission?: YesPlan: All resolving and stable (4) Pneumonia Qualifiers: Pneumonia type: due to unspecified organism Laterality: bilateral Lung location: lower lobe of lung Qualified Code(s): J18.9 - Pneumonia, unspecified organism Is this a current diagnosis for this admission?: YesPlan: Continues IV antibiotic we will repeat the chest x-ray (5) CAD (coronary artery disease) Qualifiers: Coronary Disease-Associated Artery/Lesion type: [place] vs. transplanted heart: [place] heart Associated angina: without angina Qualified Code(s): I25.10 - Atherosclerotic heart disease of [place] coronary artery without angina pectoris Is this a current diagnosis for this admission?: YesPlan: Follow-up the cardiology no acute coronary syndromes (6) Chronic pain syndrome Is this a current diagnosis for this admission?: YesPlan: Masood a current pain medications per Dr. 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 status Qualified Code(s): E11.621 - Type 2 diabetes mellitus with foot ulcer; L97.509 - Non-pressure chronic ulcer of other part of unspecified foot with unspecified severity Is this a current diagnosis for this admission?: YesPlan: Occlusive current medications and follow with the surgery - Time Time Spent with patient: 15-24 minutes Critical Time spent with patient: 15-24 minutes Medications reviewed and adjusted accordingly: Yes Anticipated discharge: Other - Inpatient Certification Medical Necessity: Need Close Monitoring Due to Risk of Patient Decompensation, Need for IV Antibiotics 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
[2016-07-29 09:50] LABS: ANION GAP 10 (5-19); BLOOD UREA NITROGEN 32 mg/dL (7-20); CALCIUM 8.9 mg/dL (8.4-10.2); CARBON DIOXIDE 30 mmol/L (22-30); CHLORIDE 101 mmol/L (98-107); CREATININE RESULT 0.86 mg/dL (0.52-1.25); GLUCOSE 143 mg/dL (75-110); POTASSIUM 4.8 mmol/L (3.6-5.0); SODIUM 140.7 mmol/L (137-145)
[2016-07-29] MEDS: GABAPENTIN 300 MG CAPSULE PO SCH ×2 (10:09→22:41)
[2016-07-29] MEDS: FUROSEMIDE 80 MG TABLET PO SCH (10:09)
[2016-07-29] MEDS: VANCOMYCIN HCL 1,000 MG in DEXTROSE 5%-WATER 250 ML IV SCH ×2 (10:09→23:04)
[2016-07-29] MEDS: BUMETANIDE 1 MG TABLET PO SCH (10:10)
[2016-07-29] MEDS: ASPIRIN 81 MG TABLET, CHEWABLE PO SCH (10:10)
[2016-07-29] MEDS: LEVOFLOXACIN 500 MG TABLET PO SCH (10:10)
[2016-07-29] MEDS: SITAGLIPTIN PHOSPHATE 50 MG TABLET PO SCH (10:11)
[2016-07-29] MEDS: LISINOPRIL 10 MG TABLET PO SCH (10:12)
[2016-07-29] MEDS: CILOSTAZOL 100 MG TABLET PO SCH ×2 (10:12→17:30)
--- NOTE | 2016-07-29 12:39 | PDOC PROGRESS REPORT ---
Subjective Progress Note for:: 07/29/16 Subjective:: Patient seems to be doing better with gradual improvement. Pt is denying any chest arm or neck discomfort. Patient denying any PND, orthopnea. Patient denied any sustained palpitations, dizziness, syncope, near syncope. Patient denying any fever chills. Patient denying any other significant discomfort. Patient is maintaining sinus rhythm. Heart rate is improved. Elevation to has been off dopamine and blood pressure and heart rate has been stable. Review of systems: Rest review of systems negative. Medications: Medications have been reviewed. Physical Exam Vital Signs: Temp Pulse Resp BP Pulse Ox 98.7 F 93 12 131/89 H 96 07/29/16 12:00 07/29/16 12:00 07/29/16 12:00 07/29/16 12:00 07/29/16 12:00 Intake & Output 07/28/16 07/29/16 07/30/16 06:59 06:59 06:59 Intake Total 1016 1284 651 Output Total 3650 1980 400 Balance -2634 -696 251 Weight 107.8 kg Exam: GENERAL: well-nourished and in no acute distress. Patient is alert and responds appropriately to questions. Oriented 2 HEAD: Atraumatic, normocephalic. EYES: Pupils equal round and reactive to light, extraocular movements intact, sclera anicteric, conjunctiva are normal. ENT: TMs normal, nares patent, oropharynx clear without exudates. Moist mucous membranes. No oral ulcerations or bleeding gums noted NECK: supple without lymphadenopathy. Trachea is central. No cervical or axillary lymphadenopathy noted. Carotids are 2+, JVD WNL LUNGS: Respiration seems nonlabored, no significant accessory muscle action noted. Breath sounds clear to auscultation bilaterally and equal noted. No wheezes rales or rhonchi noted. No significant dullness noted on percussion. CHEST: Palpation of the chest wall shows no significant chest wall tenderness. No other significant abnormalities noted. 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 ABDOMEN: Soft, no significant tenderness appreciated, normoactive bowel sounds. No guarding, no rebound. No rigidity noted . No masses appreciated. EXTREMITIES: Pedal pulses are 1-2+, no calf tenderness noted. No clubbing or cyanosis.trace to 1+ pedal edema noted NEUROLOGICAL: Focused neurological exam showed no significant neurologic deficit. Normal speech, no focal weakness appreciated. PSYCH: Normal mood, normal affect. Judgment and insight within normal limits. SKIN: No significant ecchymosis, no rash, ulcerations, in the heel noted left foot, this is in wraps. MUSCULOSKELETAL EXAM: No significant joint swelling noted. Results Laboratory Results: 07/28/16 04:45 07/29/16 09:16 07/29/16 09:16 Sodium 140.7 Potassium 4.8 Chloride 101 Carbon Dioxide 30 Anion Gap 10 BUN 32 H Creatinine 0.86 Est GFR ( Amer) > 60 Est GFR (Non-Af Amer) > 60 Glucose 143 H Calcium 8.9 07/23/16 12:50 Foot - Left Heel Gram Stain - Final 07/23/16 12:50 Foot - Left Heel Wound Culture - Final Proteus Mirabilis Enterococcus Faecalis(Group D) Skin Gabriella No Anaerobic Organisms 07/23/16 07/23/16 07/23/16 12:10 12:10 18:06 Creatine Kinase 42 42 CK-MB (CK-2) 0.57 Troponin I 0.026 07/23/16 07/23/16 07/23/16 18:06 23:42 23:42 Creatine Kinase 35 CK-MB (CK-2) 0.53 0.42 Troponin I 0.019 0.017 07/28/16 07/28/16 07/28/16 04:39 04:39 10:25 Creatine Kinase 105 203 H CK-MB (CK-2) 0.57 Troponin I < 0.012 07/28/16 07/28/16 07/28/16 10:25 17:20 17:20 Creatine Kinase 157 H CK-MB (CK-2) 1.16 0.65 Troponin I 0.013 < 0.012 07/29/16 07/29/16 00:35 00:35 Creatine Kinase 166 H CK-MB (CK-2) 0.49 Troponin I < 0.012 Impressions: Chest/Abdomen CTA 07/23/16 06:55 IMPRESSION: NO ABDOMINAL AORTIC ANEURYSM, DISSECTION OR SIGNIFICANT STENOSIS. Ectasia of the abdominal aorta and iliac vessels with extensive vascular calcifications. Other findings as noted above Pelvis CTA 07/23/16 06:59 IMPRESSION: NO ACUTE OR SIGNIFICANT FINDINGS. Chest X-Ray 07/29/16 00:00 IMPRESSION: Resolution of the congestive failure pattern. No acute pulmonary disease. Assessment & Plan - Diagnosis (1) Hypotension Qualifiers: Hypotension type: unspecified hypotension type Qualified Code(s): I95.9 - Hypotension, unspecified Is this a current diagnosis for this admission?: Yes (2) Bradycardia Is this a current diagnosis for this admission?: Yes (3) HTN (hypertension) Qualifiers: Hypertension type: essential hypertension Qualified Code(s): I10 - Essential (primary) hypertension Is this a current diagnosis for this admission?: Yes (4) Chest pain Qualifiers: Chest pain type: unspecified Qualified Code(s): R07.9 - Chest pain, unspecified Is this a current diagnosis for this admission?: Yes (5) Congestive heart failure (CHF) Qualifiers: Congestive heart failure type: unspecified congestive heart failure type Congestive heart failure chronicity: acute on chronic Qualified Code(s ): I50.9 - Heart failure, unspecified Is this a current diagnosis for this admission?: Yes 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 Qualifiers: 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 transplanted heart: [place] heart Associated angina: without angina Qualified Code(s): I25.10 - Atherosclerotic heart disease of [place] coronary artery without angina pectoris Is this a current diagnosis for this admission?: Yes - Notes Notes: Hypotension: Resolved. Exact etiology not clear but could have been relative hypovolemia with vagal stimulation. Bradycardia: Resolved. Most likely related to vagal stimulation but patient was also on ASA and AV ubaldo modifying agent. Continue to observe closely. This may need to be reinstituted. Hypertension: Blood pressure stable. Antihypertensive may need to be reinstituted gradually. CHF: Seems compensated clinically. Chest x-ray negative for CHF findings. Diabetes with foot ulcer: Continue with wound care and vascular surgery evaluations. Coronary artery disease: Currently stable. Patient is denying any chest pain. Cardiac enzymes has been negative. Hyperlipidemia: LDL goal is less than 70. Recommend statin therapy at least intermediate or high dose, of high potency status. Periodic lipid panel and liver panel is indicated. Patient to report any significant muscle discomfort or other side effects. Patient being transferred back to floor.
[2016-07-29] MEDS: CEFTRIAXONE 1 GM/D5W RTU 1 GM/50 ML RTUPB IV SCH (17:28)
[2016-07-29] MEDS: OXYCODONE HCL IR 5 MG TABLET PO PRN ×2 (18:24→22:41)
[2016-07-29] MEDS: OXYCODONE-ACETAMINOPHEN 5-325 MG TABLET PO PRN ×2 (18:24→22:40)
[2016-07-29] MEDS ORDERED: VANCOMYCIN HCL INJ 1000 MG VIAL ONE (22:32)
[2016-07-29] MEDS: EZETIMIBE 10 MG TABLET PO SCH (22:39)
[2016-07-29] MEDS: ATORVASTATIN CALCIUM 10 MG TABLET PO SCH (22:40)
[2016-07-29] MEDS: COLLAGENASE CLOSTRIDIUM HIST. OINT 30 GM TP SCH (22:41)
[2016-07-29] MEDS: INSULIN LISPRO 100 UNIT/ML 3 ML VIAL SUBCUT PRN (22:41)
[2016-07-30] MEDS: NITROGLYCERIN 2% OINTMENT 1 GM PACKET TP SCH ×4 (00:58→18:39)
[2016-07-30] MEDS: OXYCODONE-ACETAMINOPHEN 5-325 MG TABLET PO PRN ×3 (05:26→22:53)
[2016-07-30] MEDS: OXYCODONE HCL IR 5 MG TABLET PO PRN ×3 (05:27→22:52)
[2016-07-30 07:06] LABS: HEMATOCRIT 26.5 % (36.0-47.0); HEMOGLOBIN 8.4 g/dL (12.0-15.5); HGB HCT DIFFERENCE -1.3; MEAN CORPUSCULAR HEMOGLOBIN 26.5 pg (27.0-33.4); MEAN CORPUSCULAR HGB CONC 31.7 g/dL (32.0-36.0); MEAN CORPUSCULAR VOLUME 84 fl (80-97); RED BLOOD COUNT 3.16 10^6/uL (3.72-5.28); WHITE BLOOD COUNT 17.6 10^3/uL (4.0-10.5)
[2016-07-30 07:20] LABS: ANION GAP 9 (5-19); BLOOD UREA NITROGEN 25 mg/dL (7-20); CALCIUM 9.5 mg/dL (8.4-10.2); CARBON DIOXIDE 33 mmol/L (22-30); CHLORIDE 100 mmol/L (98-107); CREATININE RESULT 0.89 mg/dL (0.52-1.25); GLUCOSE 70 mg/dL (75-110); POTASSIUM 4.2 mmol/L (3.6-5.0); SODIUM 141.7 mmol/L (137-145)
[2016-07-30 07:32] LABS: BASOPHILS % (MANUAL) 0 % (0-2); EOSINOPHILS % (MANUAL) 4 % (0-6); LYMPHOCYTES % (MANUAL) 14 % (13-45); TOTAL CELLS COUNTED 100
[2016-07-30 07:33] LABS: ANISOCYTOSIS 1+; HYPOCHROMASIA SLIGHT; POIKILOCYTOSIS SLIGHT; POLYCHROMASIA SLIGHT; TARGET CELLS SLIGHT
--- NOTE | 2016-07-30 10:14 | PDOC PROGRESS REPORT ---
Subjective Progress Note for:: 07/30/16 Subjective:: Patient is doing fair shows transfer from ICU to the [facility]. Patient's off the dopamine. Patient's denied any chest pain denied any shortness of the breath. No other events happen overnight Physical Exam Vital Signs: Temp Pulse Resp BP Pulse Ox 97.7 F 89 18 134/72 H 93 07/30/16 07:11 07/30/16 07:11 07/30/16 07:11 07/30/16 07:11 07/30/16 07:11 Intake & Output 07/29/16 07/30/16 07/31/16 06:59 06:59 06:59 Intake Total 1284 1219 Output Total 1979 3199 Balance - Weight 107.8 kg 112 kg General appearance: PRESENT: no acute distress, well-developed, well-nourished Head exam: PRESENT: atraumatic, normocephalic Eye exam: PRESENT: conjunctiva pink, EOMI, PERRLA. ABSENT: scleral icterus Ear exam: PRESENT: normal external ear exam Mouth exam: PRESENT: moist, tongue midline Neck exam: PRESENT: full ROM. ABSENT: carotid bruit, JVD, lymphadenopathy, thyromegaly Cardiovascular exam: PRESENT: RRR. ABSENT: diastolic murmur, rubs, systolic murmur Pulses: PRESENT: normal dorsalis pedis pul, +2 pedal pulses bilateral Vascular exam: PRESENT: normal capillary refill GI/Abdominal exam: PRESENT: normal bowel sounds, soft. ABSENT: distended, guarding, mass, organolmegaly, rebound, tenderness Rectal exam: PRESENT: deferred Extremities exam: PRESENT: other Additional comments: Left leg the dressing is intact Neurological exam: PRESENT: alert, awake, oriented to person, oriented to place , oriented to time, oriented to situation, CN II-XII grossly intact. ABSENT: motor sensory deficit Psychiatric exam: PRESENT: appropriate affect, normal mood. ABSENT: homicidal ideation, suicidal ideation Skin exam: PRESENT: dry, intact, warm. ABSENT: cyanosis, rash Results Laboratory Results: 07/30/16 06:52 07/30/16 06:52 07/30/16 07/30/16 06:52 06:52 WBC 17.6 H RBC 3.16 L Hgb 8.4 L Hct 26.5 L MCV 84 MCH 26.5 L MCHC 31.7 L RDW 17.0 H Plt Count 369 Seg Neutrophils % Not Reportable Lymphocytes % Not Reportable Monocytes % Not Reportable Eosinophils % Not Reportable Basophils % Not Reportable Absolute Neutrophils Not Reportable Absolute Lymphocytes Not Reportable Absolute Monocytes Not Reportable Absolute Eosinophils Not Reportable Absolute Basophils Not Reportable Sodium 141.7 Potassium 4.2 Chloride 100 Carbon Dioxide 33 H Anion Gap 9 BUN 25 H Creatinine 0.89 Est GFR ( Amer) > 60 Est GFR (Non-Af Amer) > 60 Glucose 70 L Calcium 9.5 07/23/16 07/23/16 07/23/16 12:10 12:10 18:06 Creatine Kinase 42 42 CK-MB (CK-2) 0.57 Troponin I 0.026 07/23/16 07/23/16 07/23/16 18:06 23:42 23:42 Creatine Kinase 35 CK-MB (CK-2) 0.53 0.42 Troponin I 0.019 0.017 07/28/16 07/28/16 07/28/16 04:39 04:39 10:25 Creatine Kinase 105 203 H CK-MB (CK-2) 0.57 Troponin I < 0.012 07/28/16 07/28/16 07/28/16 10:25 17:20 17:20 Creatine Kinase 157 H CK-MB (CK-2) 1.16 0.65 Troponin I 0.013 < 0.012 07/29/16 07/29/16 00:35 00:35 Creatine Kinase 166 H CK-MB (CK-2) 0.49 Troponin I < 0.012 Impressions: Chest/Abdomen CTA 07/23/16 06:55 IMPRESSION: NO ABDOMINAL AORTIC ANEURYSM, DISSECTION OR SIGNIFICANT STENOSIS. Ectasia of the abdominal aorta and iliac vessels with extensive vascular calcifications. Other findings as noted above Pelvis CTA 07/23/16 06:59 IMPRESSION: NO ACUTE OR SIGNIFICANT FINDINGS. Chest X-Ray 07/29/16 00:00 IMPRESSION: Resolution of the congestive failure pattern. No acute pulmonary disease. Assessment & Plan - Diagnosis (1) Bradycardia Is this a current diagnosis for this admission?: YesPlan: Currently all resolving and stable follow with the cardiology (2) CHF (congestive heart failure) Qualifiers: Congestive heart failure type: unspecified congestive heart failure type Congestive heart failure chronicity: acute on chronic Qualified Code(s): I50.9 - Heart failure, unspecified Is this a current diagnosis for this admission?: YesPlan: Continues the current medications (3) Hypotension Qualifiers: Hypotension type: unspecified hypotension type Qualified Code(s): I95.9 - Hypotension, unspecified Is this a current diagnosis for this admission?: YesPlan: All resolving and stable (4) Pneumonia Qualifiers: Pneumonia type: due to unspecified organism Laterality: bilateral Lung location: lower lobe of lung Qualified Code(s): J18.9 - Pneumonia, unspecified organism Is this a current diagnosis for this admission?: YesPlan: Continues IV antibiotic we will repeat the chest x-ray (5) CAD (coronary artery disease) Qualifiers: Coronary Disease-Associated Artery/Lesion type: unspecified vessel or lesion type [place] vs. transplanted heart: [place] heart Associated angina: without angina Qualified Code(s): I25.10 - Atherosclerotic heart disease of [place] coronary artery without angina pectoris Is this a current diagnosis for this admission?: YesPlan: Follow-up the cardiology no acute coronary syndromes (6) Chronic pain syndrome Is this a current diagnosis for this admission?: YesPlan: Masood a current pain medications per Dr. 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 Qualifiers: Diabetes mellitus [facility] insulin use: unspecified [facility] insulin use status Qualified Code(s): E11.621 - Type 2 diabetes mellitus with foot ulcer; L97.509 - Non-pressure chronic ulcer of other part of unspecified foot with unspecified severity Is this a current diagnosis for this admission?: YesPlan: Occlusive current medications and follow with the surgery - Time Time Spent with patient: 15-24 minutes Medications reviewed and adjusted accordingly: Yes Anticipated discharge: Other Within: Other - Inpatient Certification Medical Necessity: Need Close Monitoring Due to Risk of Patient Decompensation, Need for IV Antibiotics 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
[2016-07-30] MEDS: INSULIN LISPRO 100 UNIT/ML 3 ML VIAL SUBCUT SCH ×3 (10:31→17:26)
[2016-07-30] MEDS: INSULIN GLARGINE,HUM.REC.ANLOG 300 UNIT/3 ML INSULN.PEN SUBCUT SCH ×2 (10:37→17:05)
[2016-07-30] MEDS: LEVOFLOXACIN 500 MG TABLET PO SCH (10:38)
[2016-07-30] MEDS: ENOXAPARIN SODIUM INJ 40 MG/0.4 ML DISP.SYRIN SUBCUT SCH (10:38)
[2016-07-30] MEDS: VANCOMYCIN HCL 1,000 MG in DEXTROSE 5%-WATER 250 ML IV SCH ×2 (10:38→22:54)
[2016-07-30] MEDS: FUROSEMIDE 80 MG TABLET PO SCH (10:39)
[2016-07-30] MEDS: GABAPENTIN 300 MG CAPSULE PO SCH ×2 (10:40→22:52)
[2016-07-30] MEDS: ASPIRIN 81 MG TABLET, CHEWABLE PO SCH (10:40)
[2016-07-30] MEDS: CILOSTAZOL 100 MG TABLET PO SCH ×2 (10:40→18:39)
[2016-07-30] MEDS: SITAGLIPTIN PHOSPHATE 50 MG TABLET PO SCH (10:41)
[2016-07-30] MEDS: LISINOPRIL 10 MG TABLET PO SCH (10:42)
[2016-07-30] MEDS: BUMETANIDE 1 MG TABLET PO SCH (10:50)
--- NOTE | 2016-07-30 16:35 | PDOC PROGRESS REPORT ---
Subjective Progress Note for:: 07/30/16 Subjective:: Patient seems to be doing better with gradual improvement. Pt is denying any chest arm or neck discomfort. Patient denying any PND, orthopnea. Patient denied any sustained palpitations, dizziness, syncope, near syncope. Patient denying any fever chills. Patient denying any other significant discomfort. Patient is maintaining sinus rhythm. Heart rate is improved. Patient was moved to the floor yesterday. She has remained stable. Her mental status is significantly improved. Mental status changes were related to medications for nausea.. Review of systems: Rest review of systems negative. Medications: Medications have been reviewed. Physical Exam Vital Signs: Temp Pulse Resp BP Pulse Ox 98.0 F 95 20 149/74 H 97 07/30/16 11:16 07/30/16 11:16 07/30/16 11:16 07/30/16 11:16 07/30/16 11:16 Intake & Output 07/29/16 07/30/16 07/31/16 06:59 06:59 06:59 Intake Total 1284 1219 120 Output Total 1980 3200 300 Balance -696 -1980 -180 Weight 107.8 kg 112 kg Exam: GENERAL: well-nourished and in no acute distress. Alert and oriented x3 HEAD: Atraumatic, normocephalic. EYES: Pupils equal round and reactive to light, extraocular movements intact, sclera anicteric, conjunctiva are normal. ENT: TMs normal, nares patent, oropharynx clear without exudates. Moist mucous membranes. No oral ulcerations or bleeding gums noted NECK: supple without lymphadenopathy. Trachea is central. No cervical or axillary lymphadenopathy noted. Carotids are 2+, JVD WNL LUNGS: Respiration seems nonlabored, no significant accessory muscle action noted. Breath sounds clear to auscultation bilaterally and equal noted. No wheezes rales or rhonchi noted. No significant dullness noted on percussion. CHEST: Palpation of the chest wall shows no significant chest wall tenderness. No other significant abnormalities noted. 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 ABDOMEN: Soft, no significant tenderness appreciated, normoactive bowel sounds. No guarding, no rebound. No rigidity noted . No masses appreciated. EXTREMITIES: Pedal pulses are 1-2+, no calf tenderness noted. No clubbing or cyanosis.trace to 1+ pedal edema noted NEUROLOGICAL: Focused neurological exam showed no significant neurologic deficit. Normal speech, no focal weakness appreciated. PSYCH: Normal mood, normal affect. Judgment and insight within normal limits. SKIN: No significant ecchymosis, no rash or signs of pruritus. Ulceration noted at the heel of left foot which is in wraps. MUSCULOSKELETAL EXAM: No significant joint swelling noted. Results Laboratory Results: 07/30/16 06:52 07/30/16 06:52 07/30/16 07/30/16 06:52 06:52 WBC 17.6 H RBC 3.16 L Hgb 8.4 L Hct 26.5 L MCV 84 MCH 26.5 L MCHC 31.7 L RDW 17.0 H Plt Count 369 Seg Neutrophils % Not Reportable Lymphocytes % Not Reportable Monocytes % Not Reportable Eosinophils % Not Reportable Basophils % Not Reportable Absolute Neutrophils Not Reportable Absolute Lymphocytes Not Reportable Absolute Monocytes Not Reportable Absolute Eosinophils Not Reportable Absolute Basophils Not Reportable Sodium 141.7 Potassium 4.2 Chloride 100 Carbon Dioxide 33 H Anion Gap 9 BUN 25 H Creatinine 0.89 Est GFR ( Amer) > 60 Est GFR (Non-Af Amer) > 60 Glucose 70 L Calcium 9.5 07/23/16 07/23/16 07/23/16 12:10 12:10 18:06 Creatine Kinase 42 42 CK-MB (CK-2) 0.57 Troponin I 0.026 07/23/16 07/23/16 07/23/16 18:06 23:42 23:42 Creatine Kinase 35 CK-MB (CK-2) 0.53 0.42 Troponin I 0.019 0.017 07/28/16 07/28/16 07/28/16 04:39 04:39 10:25 Creatine Kinase 105 203 H CK-MB (CK-2) 0.57 Troponin I < 0.012 07/28/16 07/28/16 07/28/16 10:25 17:20 17:20 Creatine Kinase 157 H CK-MB (CK-2) 1.16 0.65 Troponin I 0.013 < 0.012 07/29/16 07/29/16 00:35 00:35 Creatine Kinase 166 H CK-MB (CK-2) 0.49 Troponin I < 0.012 Impressions: Chest/Abdomen CTA 07/23/16 06:55 IMPRESSION: NO ABDOMINAL AORTIC ANEURYSM, DISSECTION OR SIGNIFICANT STENOSIS. Ectasia of the abdominal aorta and iliac vessels with extensive vascular calcifications. Other findings as noted above Pelvis CTA 07/23/16 06:59 IMPRESSION: NO ACUTE OR SIGNIFICANT FINDINGS. Chest X-Ray 07/29/16 00:00 IMPRESSION: Resolution of the congestive failure pattern. No acute pulmonary disease. Assessment & Plan - Diagnosis (1) Hypotension Qualifiers: Hypotension type: unspecified hypotension type Qualified Code(s): I95.9 - Hypotension, unspecified Is this a current diagnosis for this admission?: Yes (2) Bradycardia Is this a current diagnosis for this admission?: Yes (3) HTN (hypertension) Qualifiers: Hypertension type: essential hypertension Qualified Code(s): I10 - Essential (primary) hypertension Is this a current diagnosis for this admission?: Yes (4) Chest pain Qualifiers: Chest pain type: unspecified Qualified Code(s): R07.9 - Chest pain, unspecified Is this a current diagnosis for this admission?: Yes (5) Congestive heart failure (CHF) Qualifiers: Congestive heart failure type: unspecified congestive heart failure type Congestive heart failure chronicity: acute on chronic Qualified Code(s ): I50.9 - Heart failure, unspecified Is this a current diagnosis for this admission?: Yes 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 insulin 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 status Qualified Code(s): E11.621 - Type 2 diabetes mellitus with foot ulcer; L97.509 - Non-pressure chronic ulcer of other part of unspecified foot with unspecified severity Is this a current diagnosis for this admission?: Yes (7) HLD (hyperlipidemia) Qualifiers: Hyperlipidemia type: pure hypercholesterolemia Qualified Code(s): E78.00 - Pure hypercholesterolemia, unspecified; E78.0 - Pure hypercholesterolemia Is this a current diagnosis for this admission?: Yes (8) CAD (coronary artery disease) Qualifiers: Coronary Disease-Associated Artery/Lesion type: unspecified vessel or lesion type [place] vs. transplanted heart: [place] heart Associated angina: without angina Qualified Code(s): I25.10 - Atherosclerotic heart disease of [place] coronary artery without angina pectoris Is this a current diagnosis for this admission?: Yes - Notes Notes: Hypotension: Resolved. Exact etiology not clear but could have been relative hypovolemia with vagal stimulation. Bradycardia: Resolved. Most likely related to vagal stimulation but patient was also on ASA and AV ubaldo modifying agent. Continue to observe closely. This may need to be reinstituted. Heart rate has improved considerably. Hypertension: Blood pressure stable. Antihypertensive may need to be reinstituted gradually. Started patient on losartan 25 mg by mouth daily. CHF: Seems compensated clinically. Chest x-ray negative for CHF findings. Diabetes with foot ulcer: Continue with wound care and vascular surgery evaluations. Coronary artery disease: Currently stable. Patient is denying any chest pain. Cardiac enzymes has been negative. Patient describes quadruple bypass about 3 years ago at [facility]. Hyperlipidemia: LDL goal is less than 70. Recommend statin therapy at least intermediate or high dose, of high potency status. Periodic lipid panel and liver panel is indicated. Patient to report any significant muscle discomfort or other side effects. - Time Time with patient: Greater than 35 minutes - CODE STATUS was discussed, patient remains full code. Surrogate decision-maker unchanged. Multiple medical problems were addressed.More than 50% of the time spent coordinating care, discussing management plans with involved caregivers. Management plans discussed with involved personnels. Medical decision making was of moderate complexity.
[2016-07-30] MEDS: CEFTRIAXONE 1 GM/D5W RTU 1 GM/50 ML RTUPB IV SCH (17:22)
[2016-07-30] MEDS: ATORVASTATIN CALCIUM 10 MG TABLET PO SCH (22:52)
[2016-07-30] MEDS: EZETIMIBE 10 MG TABLET PO SCH (22:52)
[2016-07-30] MEDS: COLLAGENASE CLOSTRIDIUM HIST. OINT 30 GM TP SCH (22:53)
[2016-07-30] MEDS: INSULIN LISPRO 100 UNIT/ML 3 ML VIAL SUBCUT PRN (22:58)
[2016-07-31] MEDS: NITROGLYCERIN 2% OINTMENT 1 GM PACKET TP SCH ×4 (00:46→17:38)
[2016-07-31] MEDS: OXYCODONE-ACETAMINOPHEN 5-325 MG TABLET PO PRN ×3 (05:27→23:51)
[2016-07-31] MEDS: OXYCODONE HCL IR 5 MG TABLET PO PRN ×3 (05:28→23:52)
[2016-07-31 07:22] LABS: ABSOLUTE BASOPHILS # (AUTO) 0.1 10^3/uL (0.0-0.2); ABSOLUTE EOSINOPHILS # (AUTO) 0.2 10^3/uL (0.0-0.6); ABSOLUTE LYMPHOCYTES (AUTO) 2.7 10^3/uL (0.5-4.7); ABSOLUTE MONOCYTES (AUTO) 2.7 10^3/uL (0.1-1.4); ABSOLUTE NEUT (AUTO) 9.4 10^3/uL (1.7-8.2); BASOPHILS % (AUTO) 0.5 % (0-2); EOSINOPHILS % (AUTO) 1.6 % (0-6); HEMATOCRIT 24.9 % (36.0-47.0); HGB HCT DIFFERENCE -0.9; LYMPHOCYTES % (AUTO) 17.9 % (13-45); MEAN CORPUSCULAR HEMOGLOBIN 26.8 pg (27.0-33.4); MEAN CORPUSCULAR HGB CONC 32.1 g/dL (32.0-36.0); MEAN CORPUSCULAR VOLUME 84 fl (80-97); MONOCYTES % (AUTO) 17.7 % (3-13); RED BLOOD COUNT 2.98 10^6/uL (3.72-5.28); RED CELL DISTRIBUTION WIDTH 17.3 % (11.5-14.0); SEGMENTED NEUTROPHILS % (AUTO) 62.3 % (42-78); WHITE BLOOD COUNT 15.1 10^3/uL (4.0-10.5)
[2016-07-31 07:42] LABS: ANION GAP 12 (5-19); BLOOD UREA NITROGEN 26 mg/dL (7-20); CARBON DIOXIDE 30 mmol/L (22-30); CHLORIDE 98 mmol/L (98-107); CREATININE RESULT 0.91 mg/dL (0.52-1.25); GLUCOSE 173 mg/dL (75-110); POTASSIUM 4.3 mmol/L (3.6-5.0); SODIUM 139.6 mmol/L (137-145)
[2016-07-31] MEDS: ENOXAPARIN SODIUM INJ 40 MG/0.4 ML DISP.SYRIN SUBCUT SCH ×2 (08:21→11:50)
[2016-07-31] MEDS ORDERED: LOSARTAN POTASSIUM 25 MG TABLET PO SCH (10:00)
[2016-07-31] MEDS: INSULIN LISPRO 100 UNIT/ML 3 ML VIAL SUBCUT SCH ×3 (11:01→17:40)
[2016-07-31] MEDS: INSULIN GLARGINE,HUM.REC.ANLOG 300 UNIT/3 ML INSULN.PEN SUBCUT SCH ×2 (11:46→20:11)
[2016-07-31] MEDS: CILOSTAZOL 100 MG TABLET PO SCH ×2 (11:47→17:39)
[2016-07-31] MEDS: LISINOPRIL 10 MG TABLET PO SCH (11:48)
[2016-07-31] MEDS: ASPIRIN 81 MG TABLET, CHEWABLE PO SCH (11:48)
[2016-07-31] MEDS: GABAPENTIN 300 MG CAPSULE PO SCH ×2 (11:51→22:59)
[2016-07-31] MEDS: SITAGLIPTIN PHOSPHATE 50 MG TABLET PO SCH (11:51)
[2016-07-31] MEDS: BUMETANIDE 1 MG TABLET PO SCH (11:52)
[2016-07-31] MEDS: LEVOFLOXACIN 500 MG TABLET PO SCH (11:52)
[2016-07-31] MEDS: FUROSEMIDE 80 MG TABLET PO SCH (11:52)
[2016-07-31] MEDS: VANCOMYCIN HCL 1,000 MG in DEXTROSE 5%-WATER 250 ML IV SCH ×2 (11:54→23:00)
--- NOTE | 2016-07-31 16:01 | EKG REPORT ---
SEVERITY:- BORDERLINE ECG - SINUS RHYTHM LVH BY VOLTAGE : Confirmed by: Irma Hitchcock 31-Jul-2016 16:00:48
[2016-07-31] MEDS: CEFTRIAXONE 1 GM/D5W RTU 1 GM/50 ML RTUPB IV SCH (17:41)
--- NOTE | 2016-07-31 17:50 | PDOC PROGRESS REPORT ---
Subjective Progress Note for:: 07/31/16 Subjective:: Patient continue to complain about some pressure like feeling in her chest generally. She denied definite chest pain. Breathing is better. No fever or chills. Some degree of nausea do persist but tolerating oral feeding. Remain on IV Rocephin, Levofloxacin and Vancomycin coverage. Physical Exam Vital Signs: Temp Pulse Resp BP Pulse Ox 98.4 F 99 18 113/47 L 92 07/31/16 07:00 07/31/16 07:00 07/31/16 07:00 07/31/16 07:00 07/31/16 07:00 Intake & Output 07/30/16 07/31/16 08/01/16 06:59 06:59 06:59 Intake Total 1219 1059 Output Total 3200 4300 Balance -1980 -3240 Weight 112 kg 109.7 kg Physical Exam: General appearance: PRESENT: no acute distress, cooperative, morbidly obese Head exam: PRESENT: atraumatic, normocephalic Eye exam: PRESENT: conjunctiva pink, EOMI, PERRLA. ABSENT: scleral icterus Respiratory exam: PRESENT: clear to auscultation jerrica, decreased breath sounds - at lung bases Cardiovascular exam: PRESENT: RRR. ABSENT: diastolic murmur, rubs, systolic murmur GI/Abdominal exam: ABSENT: ascites, diminished bowel sounds, distended, firm, guarding, hernia, hyperactive bowel sounds, hypoactive bowel sounds, tenderness , mass, Zimmer's sign, normal bowel sounds, organomegaly, rebound, rigid, soft, other Extremities exam: PRESENT: pedal edema - bilateral, comparatively better. Musculoskeletal exam: PRESENT: deformity - related to joint involvement with arthritis Neurological exam: PRESENT: alert, awake, oriented to person, oriented to place , oriented to time, oriented to situation, CN II-XII grossly intact. ABSENT: motor sensory deficit Psychiatric exam: PRESENT: appropriate affect, normal mood. ABSENT: homicidal ideation, suicidal ideation Skin exam: PRESENT: dry, warm, other - infected chronic left heel diabetic pressure ulcer. s/p surgical debridement by surgicalist since last clinical evaluation. Results Laboratory Results: 07/31/16 06:48 07/31/16 06:48 07/31/16 07/31/16 06:48 06:48 WBC 15.1 H RBC 2.98 L Hgb 8.0 L Hct 24.9 L MCV 84 MCH 26.8 L MCHC 32.1 RDW 17.3 H Plt Count 347 Seg Neutrophils % 62.3 Lymphocytes % 17.9 Monocytes % 17.7 H Eosinophils % 1.6 Basophils % 0.5 Absolute Neutrophils 9.4 H Absolute Lymphocytes 2.7 Absolute Monocytes 2.7 H Absolute Eosinophils 0.2 Absolute Basophils 0.1 Sodium 139.6 Potassium 4.3 Chloride 98 Carbon Dioxide 30 Anion Gap 12 BUN 26 H Creatinine 0.91 Est GFR ( Amer) > 60 Est GFR (Non-Af Amer) > 60 Glucose 173 H Calcium 9.0 07/23/16 07/23/16 07/23/16 12:10 12:10 18:06 Creatine Kinase 42 42 CK-MB (CK-2) 0.57 Troponin I 0.026 07/23/16 07/23/16 07/23/16 18:06 23:42 23:42 Creatine Kinase 35 CK-MB (CK-2) 0.53 0.42 Troponin I 0.019 0.017 07/28/16 07/28/16 07/28/16 04:39 04:39 10:25 Creatine Kinase 105 203 H CK-MB (CK-2) 0.57 Troponin I < 0.012 07/28/16 07/28/16 07/28/16 10:25 17:20 17:20 Creatine Kinase 157 H CK-MB (CK-2) 1.16 0.65 Troponin I 0.013 < 0.012 07/29/16 07/29/16 00:35 00:35 Creatine Kinase 166 H CK-MB (CK-2) 0.49 Troponin I < 0.012 Impressions: Chest/Abdomen CTA 07/23/16 06:55 IMPRESSION: NO ABDOMINAL AORTIC ANEURYSM, DISSECTION OR SIGNIFICANT STENOSIS. Ectasia of the abdominal aorta and iliac vessels with extensive vascular calcifications. Other findings as noted above Pelvis CTA 07/23/16 06:59 IMPRESSION: NO ACUTE OR SIGNIFICANT FINDINGS. Chest X-Ray 07/29/16 00:00 IMPRESSION: Resolution of the congestive failure pattern. No acute pulmonary disease. Assessment & Plan - Diagnosis (1) Hyperglycemia due to type 2 diabetes mellitus Qualifiers: Diabetes mellitus long term care social worker insulin use: with long term care social worker use Qualified Code(s): E11.65 - Type 2 diabetes mellitus with hyperglycemia Is this a current diagnosis for this admission?: YesPlan: See attending physician orders. (2) Pneumonia Qualifiers: Pneumonia type: due to unspecified organism Laterality: bilateral Lung location: lower lobe of lung Qualified Code(s): J18.9 - Pneumonia, unspecified organism Is this a current diagnosis for this admission?: YesPlan: See attending physician orders. (3) Chronic pain syndrome Is this a current diagnosis for this admission?: Yes (4) Chronic use of opiate for therapeutic purpose Is this a current diagnosis for this admission?: Yes (5) HLD (hyperlipidemia) Qualifiers: Hyperlipidemia type: pure hypercholesterolemia Qualified Code(s): E78.00 - Pure hypercholesterolemia, unspecified; E78.0 - Pure hypercholesterolemia Is this a current diagnosis for this admission?: Yes (6) HTN (hypertension) Qualifiers: Hypertension type: essential hypertension Qualified Code(s): I10 - Essential (primary) hypertension Is this a current diagnosis for this admission?: YesPlan: See attending physician orders. (7) Hx of stroke without residual deficits Is this a current diagnosis for this admission?: Yes (8) PAD (peripheral artery disease) Is this a current diagnosis for this admission?: Yes (9) S/P CABG (coronary artery bypass graft) Is this a current diagnosis for this admission?: YesPlan: See attending physician orders. (10) Acute on chronic systolic CHF (congestive heart failure) Is this a current diagnosis for this admission?: YesPlan: See attending physician orders. (11) 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 Qualifiers: Diabetes mellitus long term care social worker insulin use: unspecified alf insulin use status Qualified Code(s): E11.621 - Type 2 diabetes mellitus with foot ulcer; L97.509 - Non-pressure chronic ulcer of other part of unspecified foot with unspecified severity Is this a current diagnosis for this admission?: YesPlan: See attending physician orders. (12) Supraventricular arrhythmia Is this a current diagnosis for this admission?: NoPlan: Improving. See attending physician orders. Tso input appreciated. - Time Time Spent with patient: 25-34 minutes Medications reviewed and adjusted accordingly: Yes Anticipated discharge: Home with Homehealth Within: Other - Inpatient Certification Medical Necessity: Need Close Monitoring Due to Risk of Patient Decompensation, Need For Continuous Telemetry Monitoring, Need for IV Antibiotics, Risk of Complication if Not Cared For in Hospital Post Hospital Care: D/C [employer] Documentation - Plan Summary Plan Summary: See attending physician orders.
--- NOTE | 2016-07-31 17:58 | CONSULTATION REPORT E ---
Consultation Report NAME: JAVIER BURGER : 1955 AGE: 60Y DATE: 335 A TO: JONO CAMP M.D. FROM: STEPHAN TAFOYA M.D. Requesting Physician Thank you for asking me to see this 60-year-old female -[place] with end-stage renal disease on hemodialysis. Currently intubated and sedated, in need of central venous access for administration of medications. PHYSICAL EXAMINATION: Chest is symmetric bilaterally. No evidence of injury. ASSESSMENT/PLAN: 1. Patient on current hemodialysis for end-stage renal disease via the right upper extremity. 2. Patient currently intubated and sedated. 3. Need intravenous access. PLAN: Intravenous access for administration of medication. Plan placement of intravenous line. DICTATING PHYSICIAN: JONO CAMP M.D. [id number] PHY#: [id number] ID: [id number] JOB#: [id number] ACCT: [id number] cc:JONO CAMP M.D. > MTDD
[2016-07-31] MEDS ORDERED: NITROGLYCERIN 10 MG (0.4 MG/HR) PATCH.TD24 TD ONE (19:00)
--- NOTE | 2016-07-31 19:33 | OPERATIVE REPORT E ---
Operative Report NAME: JAVIER BURGER : 1955 AGE: 60Y DATE OF SURGERY: 07/31/2016 ROOM: 335 PREOPERATIVE DIAGNOSIS: Need of intravenous access for the administration of medication and drugs. POSTOPERATIVE DIAGNOSIS: Need of intravenous access for the administration of medication and drugs. OPERATION: Left subclavian vein central venous line. SURGEON: JONO CAMP M.D. STATEMENT DISTRIBUTION CLERK: None. BLOOD LOSS: Minimal. COMPLICATIONS: None. ANESTHESIA: Local with 5 mL of 1% lidocaine without epinephrine. INDICATION AND FINDINGS: This is a 60-year-old female currently intubated and sedated on hemodialysis via right upper extremity line in need of central venous access for the administration of medication and drugs. DESCRIPTION OF PROCEDURE: The procedure was done at bedside. The patient was placed in supine Trendelenburg position. A towel was placed in between her shoulder blades. The left side of the neck and chest were prepped and draped in the usual fashion. The area just below the mid portion of the clavicle was then approached with a 16-gauge needle which was advanced. At the third attempt, a good return of venous blood was obtained. The guidewire was inserted over the needle into the subclavian vein and superior vena cava. The needle was removed. The guidewire insertion point was enlarged with a tissue dilator, which was removed as well. A triple-lumen catheter was inserted over the guidewire into the subclavian vein and superior vena cava. The guidewire was removed. Each port of the catheter was then aspirated and flushed with heparin solution without any difficulty. The catheter was secured in place with sutures, and sterile dressing was applied. The patient tolerated the procedure well. A chest x-ray was obtained that confirmed position of the line. DICTATING PHYSICIAN: JONO CAMP M.D. [id number] PHY#: [id number] ID: [id number] JOB#: [id number] ACCT: [id number] cc:JONO CAMP M.D. >
[2016-07-31] MEDS ORDERED: INSULIN GLARGINE,HUM.REC.ANLOG 1,000 UNIT/10 ML UNIT SUBCUT ONE (19:50)
--- NOTE | 2016-07-31 21:59 | OPERATIVE REPORT E ---
Operative Report NAME: JAVIER BURGER : 1955 AGE: 60Y DATE OF SURGERY: 07/31/2016 ROOM: 335 PREOPERATIVE DIAGNOSIS: Sepsis, need central venous triple-lumen catheter access for administration of medication and antibiotics. POSTOPERATIVE DIAGNOSIS: Sepsis, need central venous triple-lumen catheter access for administration of medication and antibiotics. PROCEDURE PERFORMED: Placement of a left subclavian triple-lumen central venous line. SURGEON: JONO CAMP M.D. BUNDLE SHAKER: None. ESIMATED BLOOD LOSS: Minimal. COMPLICATIONS: None. ANESTHESIA: Local with 5 mL of 1% lidocaine without epinephrine. INDICATION AND FINDINGS: This is a 60-year-old female with a history of sepsis, in need of placement of a central venous triple-lumen catheter for administration of medications and drugs. DESCRIPTION OF PROCEDURE: The procedure was done in the patient's room. The patient was placed in supine position and then Trendelenburg position. The left side of the chest and neck were prepped and draped in usual fashion. A 25-gauge needle was used to infiltrate the area with lidocaine located just below the midportion of the clavicle. A 16-gauge needle was then used to cannulate the left subclavian vein in the area just below the middle third of the left clavicle. This was done without difficulty. A guidewire was inserted through the needle into the subclavian vein and superior vena cava. The needle was removed. The incision point for the guidewire was dilated with a #11 blade and a tissue dilator which was then removed, and a triple-lumen catheter was inserted over the guidewire into the left subclavian vein, and superior vena cava, and up to 17 cm. The guidewire was then removed. Each port of the triple lumen catheter was then aspirated and flushed with heparin solution without difficulty. After this, the line was secured in place with 3-0 silk sutures. Sterile dressing was then applied. The patient tolerated the procedure well. A chest x-ray was then obtained to confirm position of the line. DICTATING PHYSICIAN: JONO CAMP M.D. [id number] PHY#: [id number] ID: [id number] JOB#: [id number] ACCT: [id number] cc:JONO CAMP M.D. > MTDD
[2016-07-31] MEDS: EZETIMIBE 10 MG TABLET PO SCH (22:59)
[2016-07-31] MEDS: ATORVASTATIN CALCIUM 10 MG TABLET PO SCH (23:00)
[2016-07-31] MEDS: COLLAGENASE CLOSTRIDIUM HIST. OINT 30 GM TP SCH (23:02)
[2016-08-01] MEDS: OXYCODONE-ACETAMINOPHEN 5-325 MG TABLET PO PRN ×4 (04:11→23:52)
[2016-08-01] MEDS: OXYCODONE HCL IR 5 MG TABLET PO PRN ×4 (04:11→23:55)
[2016-08-01 06:38] LABS: ABSOLUTE EOSINOPHILS # (AUTO) 0.2 10^3/uL (0.0-0.6); ABSOLUTE LYMPHOCYTES (AUTO) 2.4 10^3/uL (0.5-4.7); ABSOLUTE MONOCYTES (AUTO) 2.4 10^3/uL (0.1-1.4); BASOPHILS % (AUTO) 0.4 % (0-2); EOSINOPHILS % (AUTO) 1.9 % (0-6); HEMATOCRIT 24.9 % (36.0-47.0); HGB HCT DIFFERENCE -1.5; LYMPHOCYTES % (AUTO) 18.6 % (13-45); MEAN CORPUSCULAR HEMOGLOBIN 26.4 pg (27.0-33.4); MEAN CORPUSCULAR HGB CONC 31.5 g/dL (32.0-36.0); MEAN CORPUSCULAR VOLUME 84 fl (80-97); MONOCYTES % (AUTO) 18.3 % (3-13); RED BLOOD COUNT 2.96 10^6/uL (3.72-5.28); RED CELL DISTRIBUTION WIDTH 17.1 % (11.5-14.0); SEGMENTED NEUTROPHILS % (AUTO) 60.8 % (42-78); WHITE BLOOD COUNT 13.1 10^3/uL (4.0-10.5)
[2016-08-01 06:48] LABS: HEMOGLOBIN 7.8 g/dL (12.0-15.5)
[2016-08-01 06:56] LABS: ANION GAP 14 (5-19); BLOOD UREA NITROGEN 21 mg/dL (7-20); CALCIUM 8.7 mg/dL (8.4-10.2); CARBON DIOXIDE 31 mmol/L (22-30); CHLORIDE 96 mmol/L (98-107); CREATININE RESULT 0.91 mg/dL (0.52-1.25); GLUCOSE 225 mg/dL (75-110)
[2016-08-01] MEDS: INSULIN LISPRO 100 UNIT/ML 3 ML VIAL SUBCUT SCH ×3 (08:22→17:41)
[2016-08-01] MEDS ORDERED: NORMAL SALINE 250 ML IV PRN ×2 (08:27)
[2016-08-01] MEDS: NITROGLYCERIN 10 MG (0.4 MG/HR) PATCH.TD24 TD SCH (10:17)
[2016-08-01] MEDS: INSULIN GLARGINE,HUM.REC.ANLOG 300 UNIT/3 ML INSULN.PEN SUBCUT SCH ×2 (10:18→17:41)
[2016-08-01] MEDS: BUMETANIDE 1 MG TABLET PO SCH (10:20)
[2016-08-01] MEDS: ASPIRIN 81 MG TABLET, CHEWABLE PO SCH (10:22)
[2016-08-01] MEDS: LEVOFLOXACIN 500 MG TABLET PO SCH (10:22)
[2016-08-01] MEDS: GABAPENTIN 300 MG CAPSULE PO SCH ×2 (10:22→22:04)
[2016-08-01] MEDS: LISINOPRIL 10 MG TABLET PO SCH (10:23)
[2016-08-01] MEDS: CILOSTAZOL 100 MG TABLET PO SCH ×2 (10:24→17:40)
[2016-08-01] MEDS: FUROSEMIDE 80 MG TABLET PO SCH (10:24)
[2016-08-01] MEDS: SITAGLIPTIN PHOSPHATE 50 MG TABLET PO SCH (10:27)
[2016-08-01] MEDS: VANCOMYCIN HCL 1,000 MG in DEXTROSE 5%-WATER 250 ML IV SCH ×2 (10:28→22:04)
[2016-08-01] MEDS: CEFTRIAXONE 1 GM/D5W RTU 1 GM/50 ML RTUPB IV SCH (17:39)
--- NOTE | 2016-08-01 18:24 | PDOC PROGRESS REPORT ---
Subjective Progress Note for:: 08/01/16 Subjective:: Patient denied any chest pain or difficulty with breathing. No fever or chills. Remain on IV Rocephin, Levofloxacin and Vancomycin coverage. No nausea, vomiting , or abdominal pain. Her hemoglobin was reported less than 8gm/dl and she is agreeable to PRBC transfusion. Physical Exam Vital Signs: Temp Pulse Resp BP Pulse Ox 99.0 F 92 20 135/58 H 93 08/01/16 07:14 08/01/16 07:14 08/01/16 07:14 08/01/16 07:14 08/01/16 07:14 Intake & Output 07/31/16 08/01/16 08/02/16 06:59 06:59 06:59 Intake Total 1059 1099 Output Total 4300 1650 Balance -3241 -551 Weight 109.7 kg 108.5 kg Physical Exam: General appearance: PRESENT: no acute distress, cooperative, morbidly obese Head exam: PRESENT: atraumatic, normocephalic Eye exam: PRESENT: conjunctiva pink, EOMI, PERRLA. ABSENT: scleral icterus Respiratory exam: PRESENT: clear to auscultation jerrica, decreased breath sounds - at lung bases Cardiovascular exam: PRESENT: RRR. ABSENT: diastolic murmur, rubs, systolic murmur GI/Abdominal exam: ABSENT: ascites, diminished bowel sounds, distended, firm, guarding, hernia, hyperactive bowel sounds, hypoactive bowel sounds, tenderness , mass, Zimmer's sign, normal bowel sounds, organomegaly, rebound, rigid, soft, other Extremities exam: PRESENT: pedal edema - bilateral, comparatively better. Musculoskeletal exam: PRESENT: deformity - related to joint involvement with arthritis Neurological exam: PRESENT: alert, awake, oriented to person, oriented to place , oriented to time, oriented to situation, CN II-XII grossly intact. ABSENT: motor sensory deficit Psychiatric exam: PRESENT: appropriate affect, normal mood. ABSENT: homicidal ideation, suicidal ideation Skin exam: PRESENT: dry, warm, other - infected chronic left heel diabetic pressure ulcer. s/p surgical debridement. Results Laboratory Results: 08/01/16 05:30 08/01/16 05:30 08/01/16 08/01/16 05:30 05:30 WBC 13.1 H RBC 2.96 L Hgb 7.8 L Hct 24.9 L MCV 84 MCH 26.4 L MCHC 31.5 L RDW 17.1 H Plt Count 357 Seg Neutrophils % 60.8 Lymphocytes % 18.6 Monocytes % 18.3 H Eosinophils % 1.9 Basophils % 0.4 Absolute Neutrophils 8.0 Absolute Lymphocytes 2.4 Absolute Monocytes 2.4 H Absolute Eosinophils 0.2 Absolute Basophils 0.0 Sodium 141.0 Potassium 4.0 Chloride 96 L Carbon Dioxide 31 H Anion Gap 14 BUN 21 H Creatinine 0.91 Est GFR ( Amer) > 60 Est GFR (Non-Af Amer) > 60 Glucose 225 H Calcium 8.7 07/23/16 07/23/16 07/23/16 12:10 12:10 18:06 Creatine Kinase 42 42 CK-MB (CK-2) 0.57 Troponin I 0.026 07/23/16 07/23/16 07/23/16 18:06 23:42 23:42 Creatine Kinase 35 CK-MB (CK-2) 0.53 0.42 Troponin I 0.019 0.017 07/28/16 07/28/16 07/28/16 04:39 04:39 10:25 Creatine Kinase 105 203 H CK-MB (CK-2) 0.57 Troponin I < 0.012 07/28/16 07/28/16 07/28/16 10:25 17:20 17:20 Creatine Kinase 157 H CK-MB (CK-2) 1.16 0.65 Troponin I 0.013 < 0.012 07/29/16 07/29/16 00:35 00:35 Creatine Kinase 166 H CK-MB (CK-2) 0.49 Troponin I < 0.012 Impressions: Chest/Abdomen CTA 07/23/16 06:55 IMPRESSION: NO ABDOMINAL AORTIC ANEURYSM, DISSECTION OR SIGNIFICANT STENOSIS. Ectasia of the abdominal aorta and iliac vessels with extensive vascular calcifications. Other findings as noted above Pelvis CTA 07/23/16 06:59 IMPRESSION: NO ACUTE OR SIGNIFICANT FINDINGS. Chest X-Ray 07/31/16 00:00 IMPRESSION: CENTRAL LINE DESCRIBED IN SATISFACTORY POSITION. NO PNEUMOTHORAX. NO OTHER SIGNIFICANT FINDING. Assessment & Plan - Diagnosis (1) Hyperglycemia due to type 2 diabetes mellitus Qualifiers: Diabetes mellitus residential insulin use: with ferry terminal agent use Qualified Code(s): E11.65 - Type 2 diabetes mellitus with hyperglycemia Is this a current diagnosis for this admission?: YesPlan: See attending physician orders. (2) Pneumonia Qualifiers: Pneumonia type: due to unspecified organism Laterality: bilateral Lung location: lower lobe of lung Qualified Code(s): J18.9 - Pneumonia, unspecified organism Is this a current diagnosis for this admission?: YesPlan: See attending physician orders. Continue IV Vancomycin and Rocephin with Oral Levofloxacin coverage. (3) Chronic pain syndrome Is this a current diagnosis for this admission?: YesPlan: See attending physician orders. (4) Chronic use of opiate for therapeutic purpose Is this a current diagnosis for this admission?: YesPlan: See attending physician orders. (5) HLD (hyperlipidemia) Qualifiers: Hyperlipidemia type: pure hypercholesterolemia Qualified Code(s): E78.00 - Pure hypercholesterolemia, unspecified; E78.0 - Pure hypercholesterolemia Is this a current diagnosis for this admission?: YesPlan: See attending physician orders. (6) HTN (hypertension) Qualifiers: Hypertension type: essential hypertension Qualified Code(s): I10 - Essential (primary) hypertension Is this a current diagnosis for this admission?: YesPlan: See attending physician orders. (7) Hx of stroke without residual deficits Is this a current diagnosis for this admission?: YesPlan: See attending physician orders. (8) PAD (peripheral artery disease) Is this a current diagnosis for this admission?: YesPlan: See attending physician orders. (9) S/P CABG (coronary artery bypass graft) Is this a current diagnosis for this admission?: YesPlan: See attending physician orders. (10) Acute on chronic systolic CHF (congestive heart failure) Is this a current diagnosis for this admission?: YesPlan: See attending physician orders. (11) 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 Qualifiers: Diabetes mellitus ferry terminal agent insulin use: unspecified residential insulin use status Qualified Code(s): E11.621 - Type 2 diabetes mellitus with foot ulcer; L97.509 - Non-pressure chronic ulcer of other part of unspecified foot with unspecified severity Is this a current diagnosis for this admission?: YesPlan: See attending physician orders. (12) Supraventricular arrhythmia Is this a current diagnosis for this admission?: NoPlan: See attending physician orders. (13) Anemia of chronic disease Is this a current diagnosis for this admission?: YesPlan: Follow up on anemia workup findings. Patient demonstrated 2 negative stool guaiac test results so far. I did discuss need for PRBC transfusion with the patient and she is agreeable to the procedure. - Time Time Spent with patient: 25-34 minutes Medications reviewed and adjusted accordingly: Yes Anticipated discharge: Home with Homehealth Within: Other - Inpatient Certification Based on my medical assessment, after consideration of the patient's comorbidities, presenting symptoms, or acuity I expect that the services needed warrant INPATIENT care.: Yes I certify that my determination is in accordance with my understanding of Medicare's requirements for reasonable and necessary INPATIENT services [42 CFR 412.3e].: Yes Medical Necessity: Need Close Monitoring Due to Risk of Patient Decompensation, Need For Continuous Telemetry Monitoring, Need for IV Antibiotics, Risk of Complication if Not Cared For in Hospital Post Hospital Care: D/C [employer] Documentation - Plan Summary Plan Summary: See attending physician orders.
[2016-08-01] MEDS ORDERED: FUROSEMIDE INJ/PF 20 MG/2 ML SDV IV ONE (18:51)
[2016-08-01] MEDS: ATORVASTATIN CALCIUM 10 MG TABLET PO SCH (22:03)
[2016-08-01] MEDS: EZETIMIBE 10 MG TABLET PO SCH (22:03)
[2016-08-01] MEDS: COLLAGENASE CLOSTRIDIUM HIST. OINT 30 GM TP SCH (22:21)
[2016-08-02] MEDS: INSULIN LISPRO 100 UNIT/ML 3 ML VIAL SUBCUT PRN ×2 (01:00→12:39)
[2016-08-02] MEDS: INSULIN LISPRO 100 UNIT/ML 3 ML VIAL SUBCUT SCH ×3 (08:05→18:11)
[2016-08-02] MEDS: INSULIN GLARGINE,HUM.REC.ANLOG 300 UNIT/3 ML INSULN.PEN SUBCUT SCH ×2 (08:06→18:11)
[2016-08-02] MEDS: ENOXAPARIN SODIUM INJ 40 MG/0.4 ML DISP.SYRIN SUBCUT SCH (08:06)
[2016-08-02 08:51] LABS: HEMATOCRIT 30.7 % (36.0-47.0); HGB HCT DIFFERENCE -0.7; MEAN CORPUSCULAR HEMOGLOBIN 27.2 pg (27.0-33.4); MEAN CORPUSCULAR HGB CONC 32.4 g/dL (32.0-36.0); MEAN CORPUSCULAR VOLUME 84 fl (80-97); RED BLOOD COUNT 3.67 10^6/uL (3.72-5.28); RED CELL DISTRIBUTION WIDTH 16.3 % (11.5-14.0); WHITE BLOOD COUNT 16.4 10^3/uL (4.0-10.5)
[2016-08-02] MEDS: SITAGLIPTIN PHOSPHATE 50 MG TABLET PO SCH (10:37)
[2016-08-02] MEDS: BUMETANIDE 1 MG TABLET PO SCH (10:37)
[2016-08-02] MEDS: NITROGLYCERIN 10 MG (0.4 MG/HR) PATCH.TD24 TD SCH (10:37)
[2016-08-02] MEDS: LISINOPRIL 10 MG TABLET PO SCH (10:38)
[2016-08-02] MEDS: CILOSTAZOL 100 MG TABLET PO SCH ×2 (10:38→18:11)
[2016-08-02] MEDS: VANCOMYCIN HCL 1,000 MG in DEXTROSE 5%-WATER 250 ML IV SCH ×2 (10:38→22:57)
[2016-08-02] MEDS: ASPIRIN 81 MG TABLET, CHEWABLE PO SCH (10:38)
[2016-08-02] MEDS: GABAPENTIN 300 MG CAPSULE PO SCH ×2 (10:38→22:27)
[2016-08-02] MEDS: FUROSEMIDE 80 MG TABLET PO SCH (10:38)
[2016-08-02] MEDS: OXYCODONE-ACETAMINOPHEN 5-325 MG TABLET PO PRN ×3 (10:39→22:27)
[2016-08-02] MEDS: OXYCODONE HCL IR 5 MG TABLET PO PRN ×3 (10:39→22:28)
[2016-08-02] MEDS ORDERED: TRIMETHOBENZAMIDE HCL 300 MG CAPSULE PO PRN (17:54)
--- NOTE | 2016-08-02 18:02 | PDOC PROGRESS REPORT ---
Subjective Progress Note for:: 08/02/16 Subjective:: Patient reported chills and low grade fever. No chest pain or difficulty with breathing. She is off IV Rocephin. Remain on IV Vancomycin coverage. No nausea, vomiting, or abdominal pain. Lantigua catheter remain in situ. Physical Exam Vital Signs: Temp Pulse Resp BP Pulse Ox 99.2 F 96 18 157/77 H 91 L 08/02/16 11:31 08/02/16 14:00 08/02/16 11:31 08/02/16 11:31 08/02/16 11:31 Intake & Output 08/01/16 08/02/16 08/03/16 06:59 06:59 06:59 Intake Total 1099 1725 474 Output Total 1650 4400 400 Balance -551 -7236 74 Weight 108.5 kg 107.1 kg Physical Exam: General appearance: PRESENT: no acute distress, cooperative, morbidly obese Head exam: PRESENT: atraumatic, normocephalic Eye exam: PRESENT: conjunctiva pink, EOMI, PERRLA. ABSENT: scleral icterus Respiratory exam: PRESENT: clear to auscultation jerrica, decreased breath sounds - at lung bases Cardiovascular exam: PRESENT: RRR. ABSENT: diastolic murmur, rubs, systolic murmur GI/Abdominal exam: ABSENT: ascites, diminished bowel sounds, distended, firm, guarding, hernia, hyperactive bowel sounds, hypoactive bowel sounds, tenderness , mass, Zimmer's sign, normal bowel sounds, organomegaly, rebound, rigid, soft, other Extremities exam: PRESENT: pedal edema - bilateral, comparatively better. Musculoskeletal exam: PRESENT: deformity - related to joint involvement with arthritis Neurological exam: PRESENT: alert, awake, oriented to person, oriented to place , oriented to time, oriented to situation, CN II-XII grossly intact. ABSENT: motor sensory deficit Psychiatric exam: PRESENT: appropriate affect, normal mood. ABSENT: homicidal ideation, suicidal ideation Skin exam: PRESENT: dry, warm, other - infected chronic left heel diabetic pressure ulcer. s/p surgical debridement. Results Laboratory Results: 08/02/16 08:10 08/01/16 05:30 08/01/16 08/01/16 08/02/16 09:19 20:47 08:10 WBC 16.4 H RBC 3.67 L Hgb 10.0 L D Hct 30.7 L MCV 84 MCH 27.2 MCHC 32.4 RDW 16.3 H Plt Count 378 Stool Occult Blood NEGATIVE Blood Type AB POSITIVE Antibody Screen NEGATIVE 07/23/16 07/23/16 07/23/16 12:10 12:10 18:06 Creatine Kinase 42 42 CK-MB (CK-2) 0.57 Troponin I 0.026 07/23/16 07/23/16 07/23/16 18:06 23:42 23:42 Creatine Kinase 35 CK-MB (CK-2) 0.53 0.42 Troponin I 0.019 0.017 07/28/16 07/28/16 07/28/16 04:39 04:39 10:25 Creatine Kinase 105 203 H CK-MB (CK-2) 0.57 Troponin I < 0.012 07/28/16 07/28/16 07/28/16 10:25 17:20 17:20 Creatine Kinase 157 H CK-MB (CK-2) 1.16 0.65 Troponin I 0.013 < 0.012 07/29/16 07/29/16 00:35 00:35 Creatine Kinase 166 H CK-MB (CK-2) 0.49 Troponin I < 0.012 Impressions: Chest/Abdomen CTA 07/23/16 06:55 IMPRESSION: NO ABDOMINAL AORTIC ANEURYSM, DISSECTION OR SIGNIFICANT STENOSIS. Ectasia of the abdominal aorta and iliac vessels with extensive vascular calcifications. Other findings as noted above Pelvis CTA 07/23/16 06:59 IMPRESSION: NO ACUTE OR SIGNIFICANT FINDINGS. Chest X-Ray 07/31/16 00:00 IMPRESSION: CENTRAL LINE DESCRIBED IN SATISFACTORY POSITION. NO PNEUMOTHORAX. NO OTHER SIGNIFICANT FINDING. Assessment & Plan - Diagnosis (1) Hyperglycemia due to type 2 diabetes mellitus Qualifiers: Diabetes mellitus intermediate frame tender insulin use: with intermediate frame tender use Qualified Code(s): E11.65 - Type 2 diabetes mellitus with hyperglycemia Is this a current diagnosis for this admission?: YesPlan: Restart her Metformin 850 mg p.o bid. See attending physician orders. (2) Pneumonia Qualifiers: Pneumonia type: due to unspecified organism Laterality: bilateral Lung location: lower lobe of lung Qualified Code(s): J18.9 - Pneumonia, unspecified organism Is this a current diagnosis for this admission?: YesPlan: See attending physician orders. Continue IV Vancomycin and Oral Levofloxacin coverage. (3) Chronic pain syndrome Is this a current diagnosis for this admission?: YesPlan: See attending physician orders. (4) Chronic use of opiate for therapeutic purpose Is this a current diagnosis for this admission?: YesPlan: See attending physician orders. (5) HLD (hyperlipidemia) Qualifiers: Hyperlipidemia type: pure hypercholesterolemia Qualified Code(s): E78.00 - Pure hypercholesterolemia, unspecified; E78.0 - Pure hypercholesterolemia Is this a current diagnosis for this admission?: Yes (6) HTN (hypertension) Qualifiers: Hypertension type: essential hypertension Qualified Code(s): I10 - Essential (primary) hypertension Is this a current diagnosis for this admission?: YesPlan: See attending physician orders. (7) Hx of stroke without residual deficits Is this a current diagnosis for this admission?: Yes (8) PAD (peripheral artery disease) Is this a current diagnosis for this admission?: Yes (9) S/P CABG (coronary artery bypass graft) Is this a current diagnosis for this admission?: Yes (10) Acute on chronic systolic CHF (congestive heart failure) Is this a current diagnosis for this admission?: Yes (11) 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 Qualifiers: Diabetes mellitus retirement insulin use: unspecified intermediate frame tender insulin use status Qualified Code(s): E11.621 - Type 2 diabetes mellitus with foot ulcer; L97.509 - Non-pressure chronic ulcer of other part of unspecified foot with unspecified severity Is this a current diagnosis for this admission?: YesPlan: See attending physician orders. (12) Supraventricular arrhythmia Is this a current diagnosis for this admission?: No (13) Anemia of chronic disease Is this a current diagnosis for this admission?: YesPlan: See attending physician order. There is improvement in her hemoglobin post PRBC transfusion. - Time Time Spent with patient: 25-34 minutes Medications reviewed and adjusted accordingly: Yes Anticipated discharge: Home with Homehealth Within: Other - Inpatient Certification Medical Necessity: Need Close Monitoring Due to Risk of Patient Decompensation, Need For Continuous Telemetry Monitoring, Need for IV Antibiotics, Risk of Complication if Not Cared For in Hospital Post Hospital Care: D/C Industrial Engineering Manager Documentation - Plan Summary Plan Summary: See attending physician orders.
[2016-08-02] MEDS: LEVOFLOXACIN 500 MG TABLET PO SCH (18:10)
[2016-08-02] MEDS: EZETIMIBE 10 MG TABLET PO SCH (22:27)
[2016-08-02] MEDS: ATORVASTATIN CALCIUM 10 MG TABLET PO SCH (22:28)
[2016-08-02] MEDS: COLLAGENASE CLOSTRIDIUM HIST. OINT 30 GM TP SCH (22:56)
--- NOTE | 2016-08-03 08:41 | PDOC PROGRESS REPORT ---
Subjective Subjective:: Patient reported chills and low grade fever. Patient reported left lower ribs chest pain. No difficulty with breathing. Remain on oral Levofloxacin and IV Vancomycin coverage. No nausea, vomiting, or abdominal pain. Lantigua catheter remain in situ. Physical Exam Vital Signs: Temp Pulse Resp BP Pulse Ox 98.4 F 93 16 135/72 H 91 L 08/03/16 03:17 08/03/16 03:17 08/03/16 03:17 08/03/16 03:17 08/03/16 03:17 Intake & Output 08/02/16 08/03/16 08/04/16 06:59 06:59 06:59 Intake Total 1725 1656 Output Total 4400 1568 Balance -2675 88 Weight 107.1 kg 107.3 kg Physical Exam: General appearance: PRESENT: no acute distress, cooperative, morbidly obese Head exam: PRESENT: atraumatic, normocephalic Eye exam: PRESENT: conjunctiva pink, EOMI, PERRLA. ABSENT: scleral icterus Respiratory exam: PRESENT: clear to auscultation jerrica, decreased breath sounds - at lung bases Cardiovascular exam: PRESENT: RRR. ABSENT: diastolic murmur, rubs, systolic murmur GI/Abdominal exam: ABSENT: ascites, diminished bowel sounds, distended, firm, guarding, hernia, hyperactive bowel sounds, hypoactive bowel sounds, tenderness , mass, Zimmer's sign, normal bowel sounds, organomegaly, rebound, rigid, soft, other Extremities exam: PRESENT: pedal edema - bilateral, comparatively better. Musculoskeletal exam: PRESENT: deformity - related to joint involvement with arthritis Neurological exam: PRESENT: alert, awake, oriented to person, oriented to place , oriented to time, oriented to situation, CN II-XII grossly intact. ABSENT: motor sensory deficit Psychiatric exam: PRESENT: appropriate affect, normal mood. ABSENT: homicidal ideation, suicidal ideation Skin exam: PRESENT: dry, warm, other - infected chronic left heel diabetic pressure ulcer. s/p surgical debridement. Results Laboratory Results: 08/02/16 08:10 08/01/16 05:30 08/02/16 08:10 WBC 16.4 H RBC 3.67 L Hgb 10.0 L D Hct 30.7 L MCV 84 MCH 27.2 MCHC 32.4 RDW 16.3 H Plt Count 378 0307/23/16 07/23/16 12:10 12:10 18:06 Creatine Kinase 42 42 CK-MB (CK-2) 0.57 Troponin I 0.026 07/23/16 07/23/16 07/23/16 18:06 23:42 23:42 Creatine Kinase 35 CK-MB (CK-2) 0.53 0.42 Troponin I 0.019 0.017 07/28/16 07/28/16 07/28/16 04:39 04:39 10:25 Creatine Kinase 105 203 H CK-MB (CK-2) 0.57 Troponin I < 0.012 07/28/16 07/28/16 07/28/16 10:25 17:20 17:20 Creatine Kinase 157 H CK-MB (CK-2) 1.16 0.65 Troponin I 0.013 < 0.012 07/29/16 07/29/16 00:35 00:35 Creatine Kinase 166 H CK-MB (CK-2) 0.49 Troponin I < 0.012 Impressions: Chest/Abdomen CTA 07/23/16 06:55 IMPRESSION: NO ABDOMINAL AORTIC ANEURYSM, DISSECTION OR SIGNIFICANT STENOSIS. Ectasia of the abdominal aorta and iliac vessels with extensive vascular calcifications. Other findings as noted above Pelvis CTA 07/23/16 06:59 IMPRESSION: NO ACUTE OR SIGNIFICANT FINDINGS. Chest X-Ray 07/31/16 00:00 IMPRESSION: CENTRAL LINE DESCRIBED IN SATISFACTORY POSITION. NO PNEUMOTHORAX. NO OTHER SIGNIFICANT FINDING. Assessment & Plan - Diagnosis (1) Hyperglycemia due to type 2 diabetes mellitus Qualifiers: Diabetes mellitus snf insulin use: with snf use Qualified Code(s): E11.65 - Type 2 diabetes mellitus with hyperglycemia Is this a current diagnosis for this admission?: YesPlan: I will increase her Lantus Insulin to 45 uints subcut bidBS. She will continue on all other current medication management. See attending physician orders. (2) Pneumonia Qualifiers: Pneumonia type: due to unspecified organism Laterality: bilateral Lung location: lower lobe of lung Qualified Code(s): J18.9 - Pneumonia, unspecified organism Is this a current diagnosis for this admission?: YesPlan: See attending physician orders. Continue IV Vancomycin and Oral Levofloxacin coverage. (3) Chronic pain syndrome Is this a current diagnosis for this admission?: YesPlan: See attending physician orders. (4) Chronic use of opiate for therapeutic purpose Is this a current diagnosis for this admission?: YesPlan: See attending physician orders. (5) HLD (hyperlipidemia) Qualifiers: Hyperlipidemia type: pure hypercholesterolemia Qualified Code(s): E78.00 - Pure hypercholesterolemia, unspecified; E78.0 - Pure hypercholesterolemia Is this a current diagnosis for this admission?: Yes (6) HTN (hypertension) Qualifiers: Hypertension type: essential hypertension Qualified Code(s): I10 - Essential (primary) hypertension Is this a current diagnosis for this admission?: Yes (7) Hx of stroke without residual deficits Is this a current diagnosis for this admission?: Yes (8) PAD (peripheral artery disease) Is this a current diagnosis for this admission?: Yes (9) S/P CABG (coronary artery bypass graft) Is this a current diagnosis for this admission?: Yes (10) Acute on chronic systolic CHF (congestive heart failure) Is this a current diagnosis for this admission?: Yes (11) 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 Qualifiers: Diabetes mellitus bed bug exterminator insulin use: unspecified bed bug exterminator insulin use status Qualified Code(s): E11.621 - Type 2 diabetes mellitus with foot ulcer; L97.509 - Non-pressure chronic ulcer of other part of unspecified foot with unspecified severity Is this a current diagnosis for this admission?: YesPlan: See attending physician orders. (12) Supraventricular arrhythmia Is this a current diagnosis for this admission?: No (13) Anemia of chronic disease Is this a current diagnosis for this admission?: Yes (14) Rib pain on left side Plan: Obtain rib series X ray for further evaluation. Maintain on current pain management medication. - Time Time Spent with patient: 25-34 minutes Medications reviewed and adjusted accordingly: Yes Anticipated discharge: Home with Homehealth - Inpatient Certification Medical Necessity: Need Close Monitoring Due to Risk of Patient Decompensation, Need For Continuous Telemetry Monitoring, Need for Pain Control, Need for IV Antibiotics, Risk of Complication if Not Cared For in Hospital Post Hospital Care: D/C Screedman/Laborer Documentation - Plan Summary Plan Summary: See attending physician orders.
[2016-08-03] MEDS: INSULIN LISPRO 100 UNIT/ML 3 ML VIAL SUBCUT PRN ×2 (09:01→13:15)
[2016-08-03] MEDS: INSULIN LISPRO 100 UNIT/ML 3 ML VIAL SUBCUT SCH ×3 (09:01→17:48)
[2016-08-03 09:23] LABS: ABSOLUTE BASOPHILS # (AUTO) 0.1 10^3/uL (0.0-0.2); ABSOLUTE EOSINOPHILS # (AUTO) 0.2 10^3/uL (0.0-0.6); ABSOLUTE MONOCYTES (AUTO) 1.9 10^3/uL (0.1-1.4); ABSOLUTE NEUT (AUTO) 9.4 10^3/uL (1.7-8.2); BASOPHILS % (AUTO) 0.7 % (0-2); EOSINOPHILS % (AUTO) 1.8 % (0-6); HEMATOCRIT 29.4 % (36.0-47.0); HEMOGLOBIN 9.5 g/dL (12.0-15.5); HGB HCT DIFFERENCE -0.9; LYMPHOCYTES % (AUTO) 14.6 % (13-45); MEAN CORPUSCULAR HEMOGLOBIN 27.1 pg (27.0-33.4); MEAN CORPUSCULAR HGB CONC 32.2 g/dL (32.0-36.0); MEAN CORPUSCULAR VOLUME 84 fl (80-97); MONOCYTES % (AUTO) 13.9 % (3-13); RED CELL DISTRIBUTION WIDTH 16.7 % (11.5-14.0); WHITE BLOOD COUNT 13.6 10^3/uL (4.0-10.5)
[2016-08-03 09:47] LABS: ANION GAP 12 (5-19); BLOOD UREA NITROGEN 20 mg/dL (7-20); CALCIUM 9.2 mg/dL (8.4-10.2); CARBON DIOXIDE 30 mmol/L (22-30); CHLORIDE 99 mmol/L (98-107); CREATININE RESULT 0.93 mg/dL (0.52-1.25); GLUCOSE 189 mg/dL (75-110); POTASSIUM 4.2 mmol/L (3.6-5.0); SODIUM 140.7 mmol/L (137-145)
[2016-08-03] MEDS: ENOXAPARIN SODIUM INJ 40 MG/0.4 ML DISP.SYRIN SUBCUT SCH (09:54)
[2016-08-03] MEDS: SITAGLIPTIN PHOSPHATE 50 MG TABLET PO SCH (09:56)
[2016-08-03] MEDS: FUROSEMIDE 80 MG TABLET PO SCH (09:57)
[2016-08-03] MEDS: BUMETANIDE 1 MG TABLET PO SCH (09:57)
[2016-08-03] MEDS: ASPIRIN 81 MG TABLET, CHEWABLE PO SCH (09:57)
[2016-08-03] MEDS: GABAPENTIN 300 MG CAPSULE PO SCH ×2 (09:58→21:48)
[2016-08-03] MEDS: LISINOPRIL 10 MG TABLET PO SCH (09:58)
[2016-08-03] MEDS: CILOSTAZOL 100 MG TABLET PO SCH ×2 (09:59→17:48)
[2016-08-03] MEDS: NITROGLYCERIN 10 MG (0.4 MG/HR) PATCH.TD24 TD SCH (09:59)
[2016-08-03] MEDS: OXYCODONE-ACETAMINOPHEN 5-325 MG TABLET PO PRN ×3 (10:00→23:57)
[2016-08-03] MEDS: OXYCODONE HCL IR 5 MG TABLET PO PRN ×3 (10:02→23:56)
[2016-08-03] MEDS: VANCOMYCIN HCL 1,000 MG in DEXTROSE 5%-WATER 250 ML IV SCH ×2 (10:23→21:49)
[2016-08-03] MEDS: LEVOFLOXACIN 500 MG TABLET PO SCH (17:48)
[2016-08-03] MEDS: INSULIN GLARGINE,HUM.REC.ANLOG 300 UNIT/3 ML INSULN.PEN SUBCUT SCH (17:48)
[2016-08-03] MEDS: ATORVASTATIN CALCIUM 10 MG TABLET PO SCH (21:47)
[2016-08-03] MEDS: EZETIMIBE 10 MG TABLET PO SCH (21:48)
[2016-08-03] MEDS: COLLAGENASE CLOSTRIDIUM HIST. OINT 30 GM TP SCH (21:58)
[2016-08-04] MEDS: ENOXAPARIN SODIUM INJ 40 MG/0.4 ML DISP.SYRIN SUBCUT SCH (08:52)
[2016-08-04] MEDS: INSULIN GLARGINE,HUM.REC.ANLOG 300 UNIT/3 ML INSULN.PEN SUBCUT SCH ×2 (09:03→17:42)
[2016-08-04] MEDS: INSULIN LISPRO 100 UNIT/ML 3 ML VIAL SUBCUT SCH ×3 (09:03→17:42)
[2016-08-04] MEDS: OXYCODONE-ACETAMINOPHEN 5-325 MG TABLET PO PRN ×2 (09:13→16:16)
[2016-08-04] MEDS: OXYCODONE HCL IR 5 MG TABLET PO PRN ×2 (09:14→16:17)
[2016-08-04] MEDS: GABAPENTIN 300 MG CAPSULE PO SCH (10:32)
[2016-08-04] MEDS: LISINOPRIL 10 MG TABLET PO SCH (10:32)
[2016-08-04] MEDS: CILOSTAZOL 100 MG TABLET PO SCH ×2 (10:32→17:42)
[2016-08-04] MEDS: ASPIRIN 81 MG TABLET, CHEWABLE PO SCH (10:33)
[2016-08-04] MEDS: FUROSEMIDE 80 MG TABLET PO SCH (10:33)
[2016-08-04] MEDS: SITAGLIPTIN PHOSPHATE 50 MG TABLET PO SCH (10:33)
[2016-08-04] MEDS: BUMETANIDE 1 MG TABLET PO SCH (10:34)
[2016-08-04] MEDS: NITROGLYCERIN 10 MG (0.4 MG/HR) PATCH.TD24 TD SCH (10:35)
[2016-08-04 11:20] LABS: CREATININE RESULT 0.83 mg/dL (0.52-1.25)
[2016-08-04 11:35] LABS: ABSOLUTE BASOPHILS # (AUTO) 0.1 10^3/uL (0.0-0.2); ABSOLUTE EOSINOPHILS # (AUTO) 0.3 10^3/uL (0.0-0.6); ABSOLUTE LYMPHOCYTES (AUTO) 2.6 10^3/uL (0.5-4.7); ABSOLUTE MONOCYTES (AUTO) 1.8 10^3/uL (0.1-1.4); ABSOLUTE NEUT (AUTO) 8.4 10^3/uL (1.7-8.2); BASOPHILS % (AUTO) 0.5 % (0-2); EOSINOPHILS % (AUTO) 2.5 % (0-6); HEMATOCRIT 29.9 % (36.0-47.0); HEMOGLOBIN 9.7 g/dL (12.0-15.5); HGB HCT DIFFERENCE -0.8; LYMPHOCYTES % (AUTO) 19.6 % (13-45); MEAN CORPUSCULAR HEMOGLOBIN 27.2 pg (27.0-33.4); MEAN CORPUSCULAR HGB CONC 32.3 g/dL (32.0-36.0); MEAN CORPUSCULAR VOLUME 84 fl (80-97); MONOCYTES % (AUTO) 13.4 % (3-13); RED BLOOD COUNT 3.56 10^6/uL (3.72-5.28); RED CELL DISTRIBUTION WIDTH 16.7 % (11.5-14.0); WHITE BLOOD COUNT 13.2 10^3/uL (4.0-10.5)
--- NOTE | 2016-08-04 16:59 | PDOC DISCHARGE SUMMARY ---
General - Admit/Disc Date/PCP Admission Date/Primary Care Provider: 07/23/16 11:36 STEPHAN MICHELET Discharge Date: 08/04/16 - Discharge Diagnosis (1) Hyperglycemia due to type 2 diabetes mellitus Is this a current diagnosis for this admission?: Yes (2) Pneumonia Is this a current diagnosis for this admission?: Yes (3) Chronic pain syndrome Is this a current diagnosis for this admission?: Yes (4) Chronic use of opiate for therapeutic purpose Is this a current diagnosis for this admission?: Yes (5) HLD (hyperlipidemia) Is this a current diagnosis for this admission?: Yes (6) HTN (hypertension) Is this a current diagnosis for this admission?: Yes (7) Hx of stroke without residual deficits Is this a current diagnosis for this admission?: Yes (8) PAD (peripheral artery disease) Is this a current diagnosis for this admission?: Yes (9) S/P CABG (coronary artery bypass graft) Is this a current diagnosis for this admission?: Yes (10) Acute on chronic systolic CHF (congestive heart failure) Is this a current diagnosis for this admission?: Yes (11) 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 Is this a current diagnosis for this admission?: Yes (12) Supraventricular arrhythmia Is this a current diagnosis for this admission?: No (13) Anemia of chronic disease Is this a current diagnosis for this admission?: Yes - Additional Information Resuscitation Status: Full Code Discharge Diet: Cardiac, Diabetic Discharge Activity: Activity As Tolerated, Balance Activity w/Rest, Weigh Daily Home Medications: Cilostazol 50 mg PO BID 03/06/14 Ezetimibe [Zetia 10 mg Tablet] 10 mg PO QHS 03/06/14 Furosemide [Lasix] 80 mg PO QAM 03/06/14 Metformin HCl [Glucophage] 850 mg PO BID 03/06/14 Pravastatin Sodium [Pravachol] 20 mg PO QHS 03/06/14 Linagliptin [Tradjenta] 5 mg PO DAILY 01/21/15 Amlodipine Besylate 10 mg PO DAILY #30 12/15/15 Aspirin [Aspirin 81 mg Chewable Tablet] 81 mg PO DAILY #30 12/15/15 Oxycodone HCl/Acetaminophen [Percocet 7.5-325 mg Tablet] 1 each PO Q4H PRN 12/17 Insulin Lispro [Humalog Kwikpen U-100] 10 units SUBCUT AC 12/23/15 Lisinopril [Prinivil 30 mg Tablet] 30 mg PO BID 02/08/16 Bumetanide [Bumex 1 mg Tablet] 1 mg PO DAILY #30 tablet 04/03/16 Collagenase Clostridium Hist. [Santyl Ointment 30 gm] 1 applic TP QHS #1 tube Gabapentin [Neurontin 300 mg Capsule] 600 mg PO Q12 #60 capsule 04/03/16 Ampicillin Trihydrate 500 mg PO TID #30 capsule 08/04/16 Insulin Glargine,Hum.rec.anlog [Lantus Solostar] 45 units SUBCUT BIDBS #0 08/04 Insulin Lispro [Humalog Insulin (Lispro) 100 unit/mL] 0 - 12 unit SUBCUT ACHSP PRN #0 unit 08/04/16 Nitroglycerin [Nitro-Dur 10 mg (0.4MG/Hr) Transdermal Patch] 1 each TD DAILY # 30 patch.[email or web address] 08/04/16 History of Present Illness History of Present Illness: JAVIER BURGER is a 60 year old female, patient of Dr. Moffett she came emergency room because of shortness of breath, chest pain and abdominal pain in the emergency room she was evaluated CTA chest was done and showed tiny bilateral pleural effusions with associated air space consolidation in the lung bases which could represent atelectasis or infiltrate that was also associated leukocytosis. No pulmonary emboli was found. She also has CT of the abdomen done because she complained of abdominal pain in the emergency room , it s showed ectasia of the abdominal aorta with extensive vascular calcifications.., She was a smoker until couple of months ago she also have ulcer in the right leg that is managed in wound clinic, the ulcer is wrapped in bandage. Hospital Course Hospital Course: She was treated for possible pneumonia and infected left foot diabetic ulcer. Her hospitalization for remarkable for episode of bradycardia necessitating transfer to ICU and cardiology consultation with Dr. Hitchcock. She was taken of Metoprolol and Cardizem usage. Her associated leukocytosis did revealed downward trend with addition of IV Vancomycin to her antibiotic regimen. Her wound culture grew Proteus Mirabilis and Enterococcus Faecalis with sensitivity to Levofloxacin and Vancomycin respectively. Her blood culture grew Staphylococcus Schleiferi sensitive to Levofloxacin. She remain afebrile over the last 48 hours with downward trend of her leukocytosis. She is agreeable with discharge home today with home health agency services including visiting nurse and personal aide. She will follow up at [facility] as earlier schedule weekly on Wednesdays. She will be discharge on Ampicillin 500mg p.o tid x 10 days regarding her wound culture finding, persistent drainage and leukocytosis. She will follow up with me in the office as instructed upon discharge. Physical Exam Vital Signs: Temp Pulse Resp BP Pulse Ox 98.5 F 95 16 116/67 94 08/04/16 11:27 08/04/16 14:00 08/04/16 11:27 08/04/16 11:27 08/04/16 11:27 Intake & Output 08/03/16 08/04/16 08/05/16 06:59 06:59 06:59 Intake Total 1656 1102 100 Output Total 1568 350 Balance 88 1102 -250 Weight 107.3 kg 106.5 kg Physical Exam: General appearance: PRESENT: no acute distress, cooperative, morbidly obese Head exam: PRESENT: atraumatic, normocephalic Eye exam: PRESENT: conjunctiva pink, EOMI, PERRLA. ABSENT: scleral icterus Respiratory exam: PRESENT: clear to auscultation jerrica, decreased breath sounds - at lung bases Cardiovascular exam: PRESENT: RRR. ABSENT: diastolic murmur, rubs, systolic murmur GI/Abdominal exam: ABSENT: ascites, diminished bowel sounds, distended, firm, guarding, hernia, hyperactive bowel sounds, hypoactive bowel sounds, tenderness , mass, Zimmer's sign, normal bowel sounds, organomegaly, rebound, rigid, soft, other Extremities exam: PRESENT: pedal edema - bilateral, comparatively better. Musculoskeletal exam: PRESENT: deformity - related to joint involvement with arthritis Neurological exam: PRESENT: alert, awake, oriented to person, oriented to place , oriented to time, oriented to situation, CN II-XII grossly intact. ABSENT: motor sensory deficit Psychiatric exam: PRESENT: appropriate affect, normal mood. ABSENT: homicidal ideation, suicidal ideation Skin exam: PRESENT: dry, warm, other - infected chronic left heel diabetic pressure ulcer. s/p surgical debridement. Results Laboratory Results: 08/04/16 11:10 08/04/16 10:35 08/04/16 08/04/16 10:35 11:10 WBC 13.2 H RBC 3.56 L Hgb 9.7 L Hct 29.9 L MCV 84 MCH 27.2 MCHC 32.3 RDW 16.7 H Plt Count 431 Seg Neutrophils % 64.0 Lymphocytes % 19.6 Monocytes % 13.4 H Eosinophils % 2.5 Basophils % 0.5 Absolute Neutrophils 8.4 H Absolute Lymphocytes 2.6 Absolute Monocytes 1.8 H Absolute Eosinophils 0.3 Absolute Basophils 0.1 Creatinine 0.83 Est GFR ( Amer) > 60 Est GFR (Non-Af Amer) > 60 07/23/16 07/23/16 07/23/16 12:10 12:10 18:06 Creatine Kinase 42 42 CK-MB (CK-2) 0.57 Troponin I 0.026 07/23/16 07/23/16 07/23/16 18:06 23:42 23:42 Creatine Kinase 35 CK-MB (CK-2) 0.53 0.42 Troponin I 0.019 0.017 07/28/16 07/28/16 07/28/16 04:39 04:39 10:25 Creatine Kinase 105 203 H CK-MB (CK-2) 0.57 Troponin I < 0.012 07/28/16 07/28/16 07/28/16 10:25 17:20 17:20 Creatine Kinase 157 H CK-MB (CK-2) 1.16 0.65 Troponin I 0.013 < 0.012 07/29/16 07/29/16 00:35 00:35 Creatine Kinase 166 H CK-MB (CK-2) 0.49 Troponin I < 0.012 Impressions: Chest/Abdomen CTA 07/23/16 06:55 IMPRESSION: NO ABDOMINAL AORTIC ANEURYSM, DISSECTION OR SIGNIFICANT STENOSIS. Ectasia of the abdominal aorta and iliac vessels with extensive vascular calcifications. Other findings as noted above Pelvis CTA 07/23/16 06:59 IMPRESSION: NO ACUTE OR SIGNIFICANT FINDINGS. Chest X-Ray 07/31/16 00:00 IMPRESSION: CENTRAL LINE DESCRIBED IN SATISFACTORY POSITION. NO PNEUMOTHORAX. NO OTHER SIGNIFICANT FINDING. Qualifiers PATEINT BEING DISCHARGED WITH ANY OF THE FOLLOWING DIAGNOSIS?: No Plan Discharge Plan: See attending physician orders. Follow up in office as instructed at discharge. Time Spent: Less than 30 Minutes
[2016-08-04] MEDS: LEVOFLOXACIN 500 MG TABLET PO SCH (17:42)
[2016-08-04 18:12] VITALS: BP 133/65
== END 2016-08-04 18:40 | disposition home health service (06) | DRG 987 ==
LOC: ER 05:52 → UNDOADMIN 09:54 → EH 09:54 → 3S 12:22 → ICU 07-28 05:03 → 3S 07-29 13:05
PROVIDERS: ADMIT Internal Medicine Geriatric Medicine; ATTEND Internal Medicine Geriatric Medicine
PROC: 0QBM0ZZ Excision of Left Tarsal, Open Approach (ICD-10-PCS; principal; 2016-07-28)
PROC: 30233N1 Transfusion of Nonautologous Red Blood Cells into Peripheral Vein, Percutaneous Approach (ICD-10-PCS; 2016-08-01)
DX: J18.9 Pneumonia, unspecified organism (principal); I50.23 Acute on chronic systolic (congestive) heart failure; Z68.41 Body mass index [BMI] 40.0-44.9, adult; E11.65 Type 2 diabetes mellitus with hyperglycemia; E11.621 Type 2 diabetes mellitus with foot ulcer; I11.0 Hypertensive heart disease with heart failure; I25.10 Atherosclerotic heart disease of native coronary artery without angina pectoris; E78.5 Hyperlipidemia, unspecified; I73.9 Peripheral vascular disease, unspecified; I77.811 Abdominal aortic ectasia; L97.519 Non-pressure chronic ulcer of other part of right foot with unspecified severity; I95.9 Hypotension, unspecified; R00.1 Bradycardia, unspecified; L89.629 Pressure ulcer of left heel, unspecified stage; K57.90 Diverticulosis of intestine, part unspecified, without perforation or abscess without bleeding; B96.4 Proteus (mirabilis) (morganii) as the cause of diseases classified elsewhere; B95.2 Enterococcus as the cause of diseases classified elsewhere; E66.01 Morbid (severe) obesity due to excess calories; I25.2 Old myocardial infarction; Z79.891 Long term (current) use of opiate analgesic; Z87.891 Personal history of nicotine dependence; Z95.1 Presence of aortocoronary bypass graft; Z79.82 Long term (current) use of aspirin; Z79.4 Long term (current) use of insulin; Z79.899 Other long term (current) drug therapy; Z86.73 Personal history of transient ischemic attack (TIA), and cerebral infarction without residual deficits
CPT/HCPCS: 36415; 36430; 71010; 71275; 72191; 74175; 80048; 80053; 80061; 80076; 80202; 80307; 81001; 82140; 82150; 82272; 82550; 82553; 82565; 82962; 83036; 83605; 83690; 83735; 83880; 84100; 84439; 84443; 84484; 85025; 85027; 85610; 85730; 86850; 86900; 86901; 86920; 87040; 87070; 87075; 87077; 87086; 87186; 87205; 92950; 93005; 93010; 93306; 94640; 94668; 96365; 96375; 99291; C1751; J0456; J0696; J1265; J1650; J1815; J1940; J1956; J2270; J2405; J2930; J3370; J3490; J7060; J7620; P9016

== ENCOUNTER 2016-08-11 10:05 | Emergency (ER) | payer MEDICARE ==
[2016-08-11] MEDS ORDERED: ASPIRIN 81 MG TABLET, CHEWABLE PO ONE (10:26)
[2016-08-11] MEDS ORDERED: IPRATROPIUM/ALBUTEROL 0.5-2.5 MG/3 ML AMPUL NEB ONE (10:27)
[2016-08-11] MEDS ORDERED: NORMAL SALINE 500 ML IV ONE (10:28)
[2016-08-11 11:05] LABS: ABSOLUTE EOSINOPHILS # (AUTO) 0.2 10^3/uL (0.0-0.6); ABSOLUTE LYMPHOCYTES (AUTO) 1.7 10^3/uL (0.5-4.7); ABSOLUTE MONOCYTES (AUTO) 0.9 10^3/uL (0.1-1.4); ABSOLUTE NEUT (AUTO) 7.7 10^3/uL (1.7-8.2); BASOPHILS % (AUTO) 0.4 % (0-2); EOSINOPHILS % (AUTO) 2.1 % (0-6); HEMATOCRIT 31.8 % (36.0-47.0); HEMOGLOBIN 10.3 g/dL (12.0-15.5); HGB HCT DIFFERENCE -0.9; LYMPHOCYTES % (AUTO) 16.1 % (13-45); MEAN CORPUSCULAR HEMOGLOBIN 27.3 pg (27.0-33.4); MEAN CORPUSCULAR HGB CONC 32.3 g/dL (32.0-36.0); MEAN CORPUSCULAR VOLUME 84 fl (80-97); MONOCYTES % (AUTO) 8.6 % (3-13); RED BLOOD COUNT 3.77 10^6/uL (3.72-5.28); SEGMENTED NEUTROPHILS % (AUTO) 72.8 % (42-78); WHITE BLOOD COUNT 10.6 10^3/uL (4.0-10.5)
[2016-08-11 11:09] LABS: PROTHROMBIN TIME 14.6 SEC (11.4-15.4)
[2016-08-11 11:27] LABS: APPEARANCE,URINE CLEAR; BILIRUBIN,URINE NEGATIVE (NEGATIVE); GLUCOSE, URINE NEGATIVE (NEGATIVE); KETONES,URINE NEGATIVE (NEGATIVE); LEUKOCYTE ESTERASE,URINE NEGATIVE (NEGATIVE); NITRITE,URINE NEGATIVE (NEGATIVE); PROTEIN,URINE 100 mg/dL (NEGATIVE); URINE SPECIFIC GRAVITY 1.009; UROBILINOGEN,URINE NEGATIVE mg/dL (<2.0)
[2016-08-11] MEDS ORDERED: LIDOCAINE 5% (700 MG) TRANSDERMAL ADH..PATCH TP ONE (12:28)
[2016-08-11 13:09] LABS: ALANINE AMINOTRANSFERASE 30 U/L (9-52); ALBUMIN 3.3 g/dL (3.5-5.0); ALKALINE PHOSPHATASE 208 U/L (38-126); ANION GAP 13 (5-19); ASPARTATE AMINO TRANSFERASE 25 U/L (14-36); BILIRUBIN,DIRECT 0.4 mg/dL (0.0-0.4); BILIRUBIN,TOTAL 0.9 mg/dL (0.2-1.3); BLOOD UREA NITROGEN 14 mg/dL (7-20); CALCIUM 9.6 mg/dL (8.4-10.2); CARBON DIOXIDE 26 mmol/L (22-30); CHLORIDE 106 mmol/L (98-107); CREATINE KINASE 42 U/L (30-135); CREATININE RESULT 0.62 mg/dL (0.52-1.25); GLUCOSE 117 mg/dL (75-110); POTASSIUM 4.3 mmol/L (3.6-5.0); TOTAL PROTEIN 7.4 g/dL (6.3-8.2)
[2016-08-11 13:24] LABS: CREATINE KINASE MB 0.73 ng/mL (<4.55); TROPONIN I 0.016 ng/mL
--- NOTE | 2016-08-11 14:09 | ER Document Report ---
ED General - General Chief Complaint: Chest Wall Pain Stated Complaint: CHEST WALL PAIN TRAVEL OUTSIDE OF THE [place] IN LAST 30 DAYS: No - HPI Patient complains to provider of: left chest wall pain Notes: Patient coming in for evaluation left chest wall pain. Patient states recently Ms. the hospital stated for 11 days for pneumonia. Patient has been compliant with her antibiotics chest wall pain for last 2 days that increases with deep breaths and movement. Patient denies any other symptoms denies fevers chills nausea vomiting - Related Data Allergies/Adverse Reactions: pregabalin [From Lyrica] Allergy (Verified 08/11/16 10:39) Past Medical History - Social History Smoking Status: Former Smoker Chew tobacco use (# tins/day): No Frequency of alcohol use: None Drug Abuse: None Family History: CAD, Hyperlipidemia, Hypertension - Past Medical History Cardiac Medical History: Reports: Hx Congestive Heart Failure, Hx Coronary Artery Disease, Hx Heart Attack, Hx Hypercholesterolemia, Hx Hypertension, Hx Peripheral Vascular Disease Denies: Hx Atrial Fibrillation, Hx Pulmonary Embolism, Hx Heart Murmur Pulmonary Medical History: Reports: Hx Bronchitis Denies: Hx Asthma, Hx COPD, Hx Pneumonia, Hx Respiratory Failure, Hx Sleep Apnea, Hx Tuberculosis Neurological Medical History: Reports: Hx Cerebrovascular Accident - 2007. Denies: Hx Seizures Endocrine Medical History: Reports: Hx Diabetes Mellitus Type 1, Hx Diabetes Mellitus Type 2. Denies: Hx Graves' Disease, Hx Hyperthyroidism, Hx Hypothyroidism Renal/ Medical History: Denies: Hx End Stage Renal Disease, Hx Kidney Stones, Hx Ovarian Cysts, Hx Peritoneal Dialysis, Hx Pelvic Inflammatory Disease Malignancy Medical History: Denies: Hx Breast Cancer, Hx Cervical Cancer, Hx Leukemia, Hx Lung Cancer, Hx Ovarian Cancer GI Medical History: Reports: Hx Diverticulitis - diverticulosis. Denies: Hx Crohn's Disease, Hx Gastroesophageal Reflux Disease, Hx Hiatal Hernia, Hx Irritable Bowel, Hx Liver Failure, Hx Ulcer Musculoskeltal Medical History: Denies Hx Arthritis, Denies Hx Fibromyalgia, Denies Hx Multiple Sclerosis, Denies Hx Muscular Dystrophy Skin Medical History: Denies Hx MRSA Psychiatric Medical History: Denies: Hx Bipolar Disorder, Hx Dementia, Hx Depression, Hx Post Traumatic Stress Disorder, Hx Schizophrenia Traumatic Medical History: Denies: Hx Fractures Infectious Medical History: Denies: Hx HIV Past Surgical History: Reports: Hx Cardiac Surgery - Quadruple Bypass, Hx Coronary Artery Bypass Graft - July 31 2011, Hx Tonsillectomy, Hx Vascular Surgery. Denies: Hx Abdominal Surgery, Hx Appendectomy, Hx Bowel Surgery, Hx Cardiac Catheterization, Hx Section, Hx Cholecystectomy, Hx Colostomy, Hx Gastric Bypass Surgery, Hx Herniorrhaphy, Hx Hysterectomy, Hx Mastectomy, Hx Neurologic Surgery, Hx Nose Surgery, Hx Open Heart Surgery, Hx Oral Surgery, Hx Pacemaker, Hx Thyroid Surgery, Hx Tubal Ligation - Immunizations Immunizations up to date: No Hx Diphtheria, Pertussis, Tetanus Vaccination: Yes Hx Pneumococcal Vaccination: 02/04/11 Review of Systems - Review of Systems Constitutional: No symptoms reported EENT: No symptoms reported Cardiovascular: Chest pain - Chest wall pain Respiratory: No symptoms reported Gastrointestinal: No symptoms reported Genitourinary: No symptoms reported Female Genitourinary: No symptoms reported Musculoskeletal: No symptoms reported Skin: No symptoms reported Hematologic/Lymphatic: No symptoms reported Neurological/Psychological: No symptoms reported -: Yes All other systems reviewed and negative Physical Exam - Vital signs Vitals: Pulse Ox 98 08/11/16 10:20 Interpretation: Normal - General General appearance: Appears well, Alert - HEENT Head: Normocephalic, Atraumatic Eyes: Normal Pupils: PERRL - Respiratory Respiratory status: No respiratory distress Chest status: Tender - There is tenderness to palpation of the chest wall reproduces patient's symptoms Breath sounds: Normal Chest palpation: Normal - Cardiovascular Rhythm: Regular Heart sounds: Normal auscultation Murmur: No - Abdominal Inspection: Normal Distension: No distension Bowel sounds: Normal Tenderness: Nontender Organomegaly: No organomegaly - Back Back: Normal, Nontender - Extremities General upper extremity: Normal inspection, Nontender, Normal color, Normal ROM , Normal temperature General lower extremity: Normal inspection, Nontender, Normal color, Normal ROM , Normal temperature, Normal weight bearing. No: Mark's sign - Neurological Neuro grossly intact: Yes Cognition: Normal Orientation: AAOx4 [place] Coma Scale Eye Opening: Spontaneous Amber Coma Scale Verbal: Oriented [place] Coma Scale Motor: Obeys Commands Amber Coma Scale Total: 15 Speech: Normal Motor strength normal: LUE, RUE, LLE, RLE Sensory: Normal - Psychological Associated symptoms: Normal affect, Normal mood - Skin Skin Temperature: Warm Skin Moisture: Dry Skin Color: Normal Course - Re-evaluation Re-evalutation: 08/11/16 15:18 Patient underwent an EKG troponin and CTA that was negative for any acute pathology. Patient resting more likely this is reducing chest wall pain or costochondritis. Patient was encouraged to drink plenty of water to stay hydrated patient will be discharged home follow-up primary care physician. - Vital Signs Vital signs: Temp Pulse Resp BP Pulse Ox 98.4 F 17 154/83 H 96 08/11/16 14:19 08/11/16 14:17 08/11/16 14:01 08/11/16 14:17 - Laboratory Result Diagrams: 08/11/16 10:43 08/11/16 12:30 Laboratory results interpreted by me: 08/11/16 08/11/16 08/11/16 10:43 10:56 12:30 WBC 10.6 H Hgb 10.3 L Hct 31.8 L RDW 17.0 H Plt Count 500 H Glucose 117 H Alkaline Phosphatase 208 H Albumin 3.3 L Urine Protein 100 H Discharge - Discharge Clinical Impression: Chest wall pain Condition: Good Disposition: HOME, SELF-CARE Instructions: Anti-Inflammatory Medication ([facility]), Chest Wall Pain ([facility]) Additional Instructions: Please continue your prescribed medications. Your labwork CT scan today shows no critical etiology. Follow-up with your PCP in the next 2-3 days. Referrals: ANA MARIA MENJIVAR MD [Primary Care Provider] - Follow up in 1 week
[2016-08-11 14:27] VITALS: BP 154/83
--- NOTE | 2016-08-11 22:26 | EKG REPORT ---
SEVERITY:- ABNORMAL ECG - SINUS TACHYCARDIA LEFT AXIS DEVIATION LVH WITH SECONDARY REPOLARIZATION ABNORMALITY : Confirmed by: Charlette Harding MD 11-Aug-2016 22:25:37
== END 2016-08-11 14:35 | disposition home or self-care (01) ==
LOC: ER 10:05
DX: R07.89 Other chest pain (principal); I50.9 Heart failure, unspecified; I11.0 Hypertensive heart disease with heart failure; I25.10 Atherosclerotic heart disease of native coronary artery without angina pectoris; E78.00 Pure hypercholesterolemia, unspecified; Z86.73 Personal history of transient ischemic attack (TIA), and cerebral infarction without residual deficits; E11.9 Type 2 diabetes mellitus without complications; Z95.1 Presence of aortocoronary bypass graft
CPT/HCPCS: 93005; 94640; 99285; 96360; 36415; 82553; 82550; 85025; 85610; 80053; 81001; 84484; 71275; 93010; J7040; A9270; J7620

== ENCOUNTER → 2016-08-22 | Outpatient (CLI) | payer MEDICARE, MEDICAID | LOC: RAD 10:19 | PROVIDERS: ATTEND Preventive Medicine Undersea and Hyperbaric Medicine | DX: L97.423 Non-pressure chronic ulcer of left heel and midfoot with necrosis of muscle (principal); M86.8X7 Other osteomyelitis, ankle and foot ==

== ENCOUNTER → 2016-10-17 | Outpatient (CLI) | payer MEDICARE, MEDICAID ==
[2016-10-17 12:06] LABS: ABSOLUTE BASOPHILS # (AUTO) 0.1 10^3/uL (0.0-0.2); ABSOLUTE EOSINOPHILS # (AUTO) 0.2 10^3/uL (0.0-0.6); ABSOLUTE LYMPHOCYTES (AUTO) 2.9 10^3/uL (0.5-4.7); ABSOLUTE MONOCYTES (AUTO) 0.8 10^3/uL (0.1-1.4); ABSOLUTE NEUT (AUTO) 6.6 10^3/uL (1.7-8.2); BASOPHILS % (AUTO) 0.7 % (0-2); EOSINOPHILS % (AUTO) 1.8 % (0-6); HEMATOCRIT 37.1 % (36.0-47.0); HEMOGLOBIN 11.8 g/dL (12.0-15.5); HGB HCT DIFFERENCE -1.7; LYMPHOCYTES % (AUTO) 27.8 % (13-45); MEAN CORPUSCULAR HEMOGLOBIN 27.2 pg (27.0-33.4); MEAN CORPUSCULAR HGB CONC 31.8 g/dL (32.0-36.0); MEAN CORPUSCULAR VOLUME 86 fl (80-97); MONOCYTES % (AUTO) 7.6 % (3-13); RED BLOOD COUNT 4.33 10^6/uL (3.72-5.28); RED CELL DISTRIBUTION WIDTH 17.6 % (11.5-14.0); SEGMENTED NEUTROPHILS % (AUTO) 62.1 % (42-78); WHITE BLOOD COUNT 10.5 10^3/uL (4.0-10.5)
[2016-10-17 12:31] LABS: ALANINE AMINOTRANSFERASE 19 U/L (9-52); ALBUMIN 3.8 g/dL (3.5-5.0); ALKALINE PHOSPHATASE 162 U/L (38-126); ANION GAP 11 (5-19); ASPARTATE AMINO TRANSFERASE 17 U/L (14-36); BILIRUBIN,DIRECT 0.3 mg/dL (0.0-0.4); BILIRUBIN,TOTAL 0.6 mg/dL (0.2-1.3); BLOOD UREA NITROGEN 27 mg/dL (7-20); C-REACTIVE PROTEIN 47.3 mg/L (<10.0); CARBON DIOXIDE 28 mmol/L (22-30); CHLORIDE 104 mmol/L (98-107); CREATININE RESULT 0.88 mg/dL (0.52-1.25); GLUCOSE 153 mg/dL (75-110); POTASSIUM 4.7 mmol/L (3.6-5.0); SODIUM 142.5 mmol/L (137-145)
[2016-10-17 12:45] LABS: ERYTHROCYTE SEDIMENTATION RATE 97 mm/hr (0-30)
[2016-10-17 13:55] LABS: CHOLESTEROL 217.38 mg/dL (0-200); Direct HDL 58 mg/dL (>40); TRIGLYCERIDES 75 mg/dL (<150)
[2016-10-17 14:06] LABS: DIRECT LDL 128 mg/dL (<100)
== END ==
LOC: LAB 11:36
PROVIDERS: ATTEND Internal Medicine Geriatric Medicine
DX: E11.621 Type 2 diabetes mellitus with foot ulcer (principal); L97.509 Non-pressure chronic ulcer of other part of unspecified foot with unspecified severity; E11.65 Type 2 diabetes mellitus with hyperglycemia
CPT/HCPCS: 36415; 80053; 80061; 83036; 85025; 85652; 86140

== ENCOUNTER 2016-11-07 10:35 | Emergency (ER) | payer MEDICARE, MEDICAID ==
[2016-11-07] MEDS ORDERED: ASPIRIN 81 MG TABLET, CHEWABLE PO ONE (11:33)
--- NOTE | 2016-11-07 11:43 | ER Document Report ---
ED Cardiac - General Chief Complaint: Chest Pain Stated Complaint: FOOT PAIN Time Seen by Provider: 11/07/16 10:49 Mode of Arrival: Ambulatory Information source: Patient TRAVEL OUTSIDE OF THE [place] IN LAST 30 DAYS: No - HPI Patient complains to provider of: Chest pain Was the onset of pain: Sudden Is the pain a: New problem Chest pain location: Substernal Quality of pain: Achy Severity now: Moderate Severity at worst: Moderate Pain level currently: 3 Chest pain precipitating factors: At Rest Cardiac risk factors: Diabetes, Hx GA Exacerbated by: Denies Relieved by: Nothing Similar symptoms previously: Yes Recently seen / treated by doctor: No Notes: Patient is a 61-year-old female who presents to the emergency room complaining of chest pain that started approximately 3 hours prior to arrival while patient was at rest, she denies any shortness of breath, she does report a small amount of sweatiness when it started, pain is dull and aching in nature, she does report a wet but nonproductive cough, denies a fever, reports a history of similar symptoms in the past, she does have a history of diabetes, as well as myocardial infarction 2, and 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 - Related Data Allergies/Adverse Reactions: pregabalin [From Lyrica] Allergy (Verified 08/11/16 10:39) Past Medical History - General Information source: Patient - Social History Smoking Status: Never Smoker Family History: CAD, Hyperlipidemia, Hypertension - Past Medical History Cardiac Medical History: Reports: Hx Congestive Heart Failure, Hx Coronary Artery Disease, Hx Heart Attack, Hx Hypercholesterolemia, Hx Hypertension, Hx Peripheral Vascular Disease Denies: Hx Atrial Fibrillation, Hx Pulmonary Embolism, Hx Heart Murmur Pulmonary Medical History: Reports: Hx Bronchitis Denies: Hx Asthma, Hx COPD, Hx Pneumonia, Hx Respiratory Failure, Hx Sleep Apnea, Hx Tuberculosis Neurological Medical History: Reports: Hx Cerebrovascular Accident - 2007. Denies: Hx Seizures Endocrine Medical History: Reports: Hx Diabetes Mellitus Type 1, Hx Diabetes Mellitus Type 2. Denies: Hx Graves' Disease, Hx Hyperthyroidism, Hx Hypothyroidism Renal/ Medical History: Denies: Hx End Stage Renal Disease, Hx Kidney Stones, Hx Ovarian Cysts, Hx Peritoneal Dialysis, Hx Pelvic Inflammatory Disease Malignancy Medical History: Denies: Hx Breast Cancer, Hx Cervical Cancer, Hx Leukemia, Hx Lung Cancer, Hx Ovarian Cancer GI Medical History: Reports: Hx Diverticulitis - diverticulosis. Denies: Hx Crohn's Disease, Hx Gastroesophageal Reflux Disease, Hx Hiatal Hernia, Hx Irritable Bowel, Hx Liver Failure, Hx Ulcer Musculoskeltal Medical History: Denies Hx Arthritis, Denies Hx Fibromyalgia, Denies Hx Multiple Sclerosis, Denies Hx Muscular Dystrophy Skin Medical History: Denies Hx MRSA Psychiatric Medical History: Denies: Hx Bipolar Disorder, Hx Dementia, Hx Depression, Hx Post Traumatic Stress Disorder, Hx Schizophrenia Traumatic Medical History: Denies: Hx Fractures Infectious Medical History: Denies: Hx HIV Past Surgical History: Reports: Hx Cardiac Surgery - Quadruple Bypass, Hx Coronary Artery Bypass Graft - July 31 2011, Hx Tonsillectomy, Hx Vascular Surgery. Denies: Hx Abdominal Surgery, Hx Appendectomy, Hx Bowel Surgery, Hx Cardiac Catheterization, Hx Section, Hx Cholecystectomy, Hx Colostomy, Hx Gastric Bypass Surgery, Hx Herniorrhaphy, Hx Hysterectomy, Hx Mastectomy, Hx Neurologic Surgery, Hx Nose Surgery, Hx Open Heart Surgery, Hx Oral Surgery, Hx Pacemaker, Hx Thyroid Surgery, Hx Tubal Ligation - Immunizations Immunizations up to date: No Hx Diphtheria, Pertussis, Tetanus Vaccination: Yes Hx Pneumococcal Vaccination: 02/04/11 Review of Systems - Review of Systems Constitutional: No symptoms reported EENT: No symptoms reported Cardiovascular: See HPI Respiratory: No symptoms reported Gastrointestinal: No symptoms reported Genitourinary: No symptoms reported Female Genitourinary: No symptoms reported Musculoskeletal: No symptoms reported Skin: See HPI Hematologic/Lymphatic: No symptoms reported Neurological/Psychological: No symptoms reported -: Yes All other systems reviewed and negative Physical Exam - Vital signs Vitals: Pulse Ox 94 11/07/16 11:02 Interpretation: Normal - General General appearance: Appears well, Alert - HEENT Head: Normocephalic, Atraumatic Eyes: Normal Pupils: PERRL - Respiratory Respiratory status: No respiratory distress Chest status: Nontender Breath sounds: Normal Chest palpation: Normal - Cardiovascular Rhythm: Regular Heart sounds: Normal auscultation Murmur: No - Abdominal Inspection: Normal Distension: No distension Bowel sounds: Normal Tenderness: Nontender Organomegaly: No organomegaly - Back Back: Normal, Nontender - Extremities General upper extremity: Normal inspection, Nontender, Normal color, Normal ROM , Normal temperature General lower extremity: Normal inspection, Nontender, Normal color, Normal ROM , Normal temperature, Normal weight bearing. No: Mark's sign - Neurological Neuro grossly intact: Yes Cognition: Normal Orientation: AAOx4 [place] Coma Scale Eye Opening: Spontaneous Amber Coma Scale Verbal: Oriented [place] Coma Scale Motor: Obeys Commands [place] Coma Scale Total: 15 Speech: Normal Motor strength normal: LUE, RUE, LLE, RLE Sensory: Normal - Psychological Associated symptoms: Normal affect, Normal mood - Skin Skin Temperature: Warm Skin Moisture: Dry Skin Color: Normal Course - Re-evaluation Re-evalutation: 11/07/16 16:37 Sitting comfortably, reports feeling much better, chest pain is resolved, lab and imaging findings were discussed with patient at bedside which are unremarkable including 2 sets of cardiac enzymes which are negative, symptoms are not consistent with coronary syndrome, patient will be discharged with instructions for follow-up and advised to return if any additional concerns, patient acknowledges understanding and agreement with this plan - Vital Signs Vital signs: Temp Pulse Resp BP Pulse Ox 97.8 F 63 12 151/58 H 94 11/07/16 11:13 11/07/16 11:13 11/07/16 16:01 11/07/16 16:01 11/07/16 16:01 - Laboratory Result Diagrams: 11/07/16 11:00 11/07/16 11:00 Laboratory results interpreted by me: 11/07/16 11/07/16 11/07/16 11:00 11:00 12:45 Hgb 10.9 L Hct 35.1 L MCHC 31.1 L RDW 18.3 H Potassium 5.4 H BUN 29 H Creatinine 1.38 H Est GFR ( Amer) 47 L Est GFR (Non-Af Amer) 39 L Glucose 71 L Alkaline Phosphatase 133 H Total Protein 8.6 H Urine Protein 100 H - Diagnostic Test Radiology reviewed: Image reviewed, Reports reviewed - EKG Interpretation by Me EKG shows normal: Sinus rhythm Rate: Normal Rhythm: NSR Discharge - Discharge Clinical Impression: Chest pain Qualifiers: Chest pain type: unspecified Qualified Code(s): R07.9 - Chest pain, unspecified Condition: Stable Disposition: HOME, SELF-CARE Instructions: Chest Pain of Unclear Cause ([facility]) Additional Instructions: Follow up with your primary care provider in one to 2 days. Return to the emergency room immediately if symptoms worsen or any additional concerns.
[2016-11-07 11:50] LABS: ALANINE AMINOTRANSFERASE 21 U/L (9-52); ALBUMIN 3.9 g/dL (3.5-5.0); ALKALINE PHOSPHATASE 133 U/L (38-126); ANION GAP 10 (5-19); ASPARTATE AMINO TRANSFERASE 17 U/L (14-36); BILIRUBIN,DIRECT 0.4 mg/dL (0.0-0.4); BILIRUBIN,TOTAL 0.5 mg/dL (0.2-1.3); BLOOD UREA NITROGEN 29 mg/dL (7-20); CALCIUM 9.5 mg/dL (8.4-10.2); CARBON DIOXIDE 26 mmol/L (22-30); CHLORIDE 107 mmol/L (98-107); CREATINE KINASE 48 U/L (30-135); CREATININE RESULT 1.38 mg/dL (0.52-1.25); GLUCOSE 71 mg/dL (75-110); LIPASE 38.5 U/L (23-300); POTASSIUM 5.4 mmol/L (3.6-5.0); SODIUM 143.4 mmol/L (137-145); TOTAL PROTEIN 8.6 g/dL (6.3-8.2)
[2016-11-07 11:59] LABS: ABSOLUTE EOSINOPHILS # (AUTO) 0.2 10^3/uL (0.0-0.6); ABSOLUTE LYMPHOCYTES (AUTO) 2.2 10^3/uL (0.5-4.7); ABSOLUTE MONOCYTES (AUTO) 1.1 10^3/uL (0.1-1.4); ABSOLUTE NEUT (AUTO) 5.5 10^3/uL (1.7-8.2); BASOPHILS % (AUTO) 0.4 % (0-2); EOSINOPHILS % (AUTO) 2.1 % (0-6); HEMATOCRIT 35.1 % (36.0-47.0); HEMOGLOBIN 10.9 g/dL (12.0-15.5); HGB HCT DIFFERENCE -2.4; LYMPHOCYTES % (AUTO) 24.3 % (13-45); MEAN CORPUSCULAR HEMOGLOBIN 27.5 pg (27.0-33.4); MEAN CORPUSCULAR HGB CONC 31.1 g/dL (32.0-36.0); MEAN CORPUSCULAR VOLUME 89 fl (80-97); MONOCYTES % (AUTO) 12.3 % (3-13); RED BLOOD COUNT 3.97 10^6/uL (3.72-5.28); RED CELL DISTRIBUTION WIDTH 18.3 % (11.5-14.0); SEGMENTED NEUTROPHILS % (AUTO) 60.9 % (42-78)
[2016-11-07 12:02] LABS: CREATINE KINASE MB 0.95 ng/mL (<4.55)
[2016-11-07 12:03] LABS: TROPONIN I < 0.012 ng/mL
--- NOTE | 2016-11-07 12:04 | RADIOLOGY REPORT (SQ) ---
EXAM DESCRIPTION: CHEST PA/LAT COMPLETED DATE/TIME: 11/07/2016 11:57 am REASON FOR STUDY: cp COMPARISON: 07/23/2016. NUMBER OF VIEWS: Two view. TECHNIQUE: Frontal and lateral radiographic views of the chest acquired. LIMITATIONS: None. FINDINGS: LUNGS AND PLEURA: No opacities, masses or pneumothorax. No pleural effusion. MEDIASTINUM AND HILAR STRUCTURES: Stable postoperative contours. HEART AND VASCULAR STRUCTURES: Heart enlarged without failure. Aorta normal for age. BONES: No acute findings. HARDWARE: None in the chest. OTHER: No other significant finding. IMPRESSION: CARDIAC ENLARGEMENT WITHOUT FAILURE. TECHNICAL DOCUMENTATION: JOB ID: [id number] 1998 [employer]- All Rights Reserved
[2016-11-07 13:14] LABS: APPEARANCE,URINE SLIGHTLY-CLOUDY; BILIRUBIN,URINE NEGATIVE (NEGATIVE); GLUCOSE, URINE NEGATIVE (NEGATIVE); KETONES,URINE NEGATIVE (NEGATIVE); LEUKOCYTE ESTERASE,URINE NEGATIVE (NEGATIVE); NITRITE,URINE NEGATIVE (NEGATIVE); PROTEIN,URINE 100 mg/dL (NEGATIVE); URINE SPECIFIC GRAVITY 1.011; UROBILINOGEN,URINE NEGATIVE mg/dL (<2.0)
[2016-11-07] MEDS ORDERED: ASPIRIN 81 MG TABLET, CHEWABLE ONE (15:09)
[2016-11-07 16:30] VITALS: BP 151/58
[2016-11-07] MEDS ORDERED: OXYCODONE-ACETAMINOPHEN 5-325 MG TABLET PO ONE (16:37)
--- NOTE | 2016-11-07 20:26 | EKG REPORT ---
SEVERITY:- ABNORMAL ECG - SINUS RHYTHM LEFT AXIS DEVIATION LEFT VENTRICULAR HYPERTROPHY : Confirmed by: Yobany Marino MD 07-Nov-2016 20:26:26
== END 2016-11-07 17:13 | disposition home or self-care (01) ==
LOC: ER 10:35
DX: R07.89 Other chest pain (principal); R61 Generalized hyperhidrosis; R05 Cough; I25.2 Old myocardial infarction; I25.10 Atherosclerotic heart disease of native coronary artery without angina pectoris; I10 Essential (primary) hypertension; E11.51 Type 2 diabetes mellitus with diabetic peripheral angiopathy without gangrene; Z88.6 Allergy status to analgesic agent; Z82.49 Family history of ischemic heart disease and other diseases of the circulatory system; Z86.73 Personal history of transient ischemic attack (TIA), and cerebral infarction without residual deficits; Z95.1 Presence of aortocoronary bypass graft
CPT/HCPCS: 93005; 99285; 36415; 82553; 82550; 83690; 85025; 80053; 81001; 84484; 83880; 71020; 93010; A9270 ×2

== ENCOUNTER → 2016-11-27 | Outpatient (CLI) | payer MEDICARE, MEDICAID ==
--- NOTE | 2016-11-27 17:53 | WOMENS IMAGING REPORT ---
EXAM DESCRIPTION: BILAT SCREENING MAMMO W/CAD COMPLETED DATE/TIME: 11/27/2016 9:52 am REASON FOR STUDY: ROUTINE SCREENING; Z12.31 Z12.31 ENCNTR SCREEN MAMMOGRAM FOR MALIGNANT NEOPLASM O F DAV COMPARISON: 09/27/2015 and 07/09/2014. TECHNIQUE: Standard craniocaudal and mediolateral oblique views of each breast recorded using digita l acquisition. LIMITATIONS: None. FINDINGS: No masses, calcifications or architectural distortion. No areas of suspicion. Read with the assistance of CAD. .[facility] - R2 Cenova Version 1.3 .[facility] - R2 Cenova Version 1.3 .[facility] - R2 Cenova Version 2.4 .[facility] [place] - R2 Cenova Version 2.4 .[facility] - R2 Water Manager Version 9.2 IMPRESSION: NORMAL MAMMOGRAM. BIRADS 1. BREAST DENSITY: c. The breasts are heterogeneously dense, which may obscure small masses. BIRAD: 1 NEGATIVE RECOMMENDATION: ROUTINE SCREENING COMMENT: The patient has been notified of the results by letter per MQSA requirements. Additional no tification policies are in place for contacting patient with suspicious or incomplete findings. Quality ID #[id number]: The [employer] recommends an annual screening mammogram for women aged 40 years or over. This facility utilizes a reminder system to ensure that all patients receive reminder letters, and/or direct phone calls for appointments. This includes reminders for routine scr eening mammograms, diagnostic mammograms, or other Breast Imaging Interventions when appropriate. Th is patient will be placed in the appropriate reminder system. The [employer] (ACR) has developed recommendations for screening MRI of the breast s in certain patient populations, to be used in conjunction with mammography. Breast MRI surveillanc e may be appropriate for women with more than 20% lifetime risk of developing breast cancer as deter mined by genetic testing, significant family history of the disease, or history of mantle radiation f or Hodgkins Disease. ACR Practice Guidelines 2008. TECHNICAL DOCUMENTATION: FINDING NUMBER: (1) ASSESSMENT: (1) JOB ID: [id number] [employer]- All Rights Reserved
== END ==
LOC: WI 09:26
PROVIDERS: ATTEND Internal Medicine Geriatric Medicine
DX: Z12.31 Encounter for screening mammogram for malignant neoplasm of breast (principal)
CPT/HCPCS: 77067; G0202

== ENCOUNTER → 2017-01-11 | Outpatient (CLI) | payer MEDICARE, MEDICAID ==
--- NOTE | 2017-01-11 10:56 | RADIOLOGY REPORT (SQ) ---
EXAM DESCRIPTION: FOOT LEFT COMPLETE COMPLETED DATE/TIME: 01/11/2017 9:54 am REASON FOR STUDY: NON-PRS CHRONIC ULCER OF LEFT HEEL AND MIDFOOT W NECROS BONE L97.424 NON-PRS CNS ANGLE ULCER OF LEFT HEEL AND MIDFOOT W NEC COMPARISON: Left foot films 02/23/2016, 07/19/2016 NUMBER OF VIEWS: Three views. TECHNIQUE: AP, lateral and oblique radiographic images acquired of the left foot. LIMITATIONS: None. FINDINGS: MINERALIZATION: There is demineralization of the plantar surface of the calcaneus, deep to a large soft tissue ulcer. Demineralization of the plantar calcaneal spur at the plantar fascia att achment has occurred. Bones are diffusely otherwise osteopenic. BONES: Demineralization of the plantar surface of the calcaneus worrisome for osteomyelitis JOINTS: No effusions. SOFT TISSUES: Two views forefoot soft tissue swelling. Large dorsal and plantar calcaneal soft tissu e ulcer OTHER: No other significant finding. IMPRESSION: Large dorsal and plantar calcaneal soft tissue ulcer with adjacent bony demineralization the calcaneus, worrisome for osteomyelitis TECHNICAL DOCUMENTATION: JOB ID: [id number]- All Rights Reserved
== END ==
LOC: RAD 09:16
PROVIDERS: ATTEND Nurse Practitioner Family
DX: L97.424 Non-pressure chronic ulcer of left heel and midfoot with necrosis of bone (principal)

== ENCOUNTER 2017-03-06 15:25 | Emergency (ER) | payer MEDICARE, MEDICAID ==
--- NOTE | 2017-03-06 16:07 | ER Document Report ---
ED Blood Sugar Problem - General Chief Complaint: High Blood Sugar Stated Complaint: POSSIBLE BLOOD SUGAR ISSUES Time Seen by Provider: 03/06/17 15:53 Notes: Patient is here because her blood sugar was high at home this morning. She is an insulin-dependent diabetic on Lantus 45 mg twice a day plus a sliding scale of Humalog. She says that she had 2 cups of coffee this morning fixed by her son. She thinks he put too much sugar in the coffee at about 9:30 AM, home health nurse was visiting in took her blood sugar and it read high so they recommended she come here. At that time, the patient was having some headache and feeling woozy, but she has not had any nausea or vomiting, fever, fall, loss of consciousness, etc. She says that she feels much better at this time and no longer has any symptoms, in particular no longer has a headache. Patient has also had bypass surgery as well as a stroke. She has her left foot and a bandage due to poor circulation. She was seen in [place] yesterday by the vascular surgeon and they are hoping to do surgery to get better circulation into her left foot so she does not lose her left foot. She has an appointment to see that vascular surgeon again next week. She also has an appointment to be seen with pain management tomorrow. TRAVEL OUTSIDE OF THE [place] IN LAST 30 DAYS: No - Related Data Allergies/Adverse Reactions: pregabalin [From Lyrica] Allergy (Verified 08/11/16 10:39) Past Medical History - Social History Smoking Status: Unknown if Ever Smoked Cigarette use (# per day): No Family History: Reviewed & Not Pertinent, CAD, Hyperlipidemia, Hypertension Patient has suicidal ideation: No Patient has homicidal ideation: No - Past Medical History Cardiac Medical History: Reports: Hx Congestive Heart Failure, Hx Coronary Artery Disease, Hx Heart Attack, Hx Hypercholesterolemia, Hx Hypertension, Hx Peripheral Vascular Disease Pulmonary Medical History: Reports: Hx Bronchitis Neurological Medical History: Reports: Hx Cerebrovascular Accident - 2007 Endocrine Medical History: Reports: Hx Diabetes Mellitus Type 1, Hx Diabetes Mellitus Type 2 GI Medical History: Reports: Hx Diverticulitis - diverticulosis Past Surgical History: Reports: Hx Cardiac Surgery - Quadruple Bypass, Hx Coronary Artery Bypass Graft - July 31 2011, Hx Tonsillectomy, Hx Vascular Surgery - Immunizations Immunizations up to date: No Hx Diphtheria, Pertussis, Tetanus Vaccination: Yes Hx Pneumococcal Vaccination: 02/04/11 Review of Systems - Review of Systems Notes: REVIEW OF SYSTEMS: CONSTITUTIONAL : Denies fever. EENT: Denies eye, ear, nose or mouth or throat pain or other symptoms. CARDIOVASCULAR: Denies chest pain. RESPIRATORY: Has a cough, but no significant chest congestion, or shortness of breath. GASTROINTESTINAL: Denies abdominal pain or nausea, vomiting, or diarrhea. GENITOURINARY: Denies difficulty or painful urinating, urinary frequency, blood in urine. MUSCULOSKELETAL: Denies back or neck pain. Denies joint pain or swelling. Patient has her left leg bandaged. SKIN: Denies rash or skin lesions. NEUROLOGICAL: Denies LOC or altered mental status. Had a headache but it is gone now. Denies sensory loss or motor deficits. ALL OTHER SYSTEMS REVIEWED AND NEGATIVE. Physical Exam - Notes Notes: PHYSICAL EXAMINATION: GENERAL: Well-appearing, in no acute distress. HEAD: Atraumatic, normocephalic. EYES: Pupils equal round and reactive to light, extraocular movements intact. ENT: oropharynx clear without exudates. Moist mucous membranes. NECK: Normal range of motion, supple. LUNGS: Breath sounds clear and equal bilaterally. HEART: Regular rate and rhythm without murmurs. ABDOMEN: Soft, nontender. No guarding or rebound. BACK: No tenderness throughout entire back. EXTREMITIES: Normal range of motion without pain. Left leg is in a heavy bandage including the entire foot and toes. NEUROLOGICAL: Normal speech. Normal sensory, motor, and reflex exams. Awake, alert, and oriented x3. Cranial nerves normal. PSYCH: Normal mood, normal affect. SKIN: Warm, dry, no rashes. Course - Re-evaluation Re-evalutation: 03/07/17 00:13 Labs reviewed. White count slightly elevated, but not clinically significant, I do not think. Her blood sugar was 207. - Laboratory Result Diagrams: 03/06/17 17:04 03/06/17 18:33 Laboratory results interpreted by me: 03/06/17 03/06/17 03/06/17 17:04 18:10 18:33 WBC 12.1 H RDW 14.3 H Absolute Neutrophils 8.3 H BUN 23 H Est GFR (Non-Af Amer) 51 L Glucose 207 H Direct Bilirubin 0.5 H Alkaline Phosphatase 166 H Total Protein 8.4 H Urine Protein >=500 H Urine Glucose (UA) 50 H Urine Blood SMALL H Urine Urobilinogen 2.0 H Discharge - Discharge Clinical Impression: Hyperglycemia Condition: Stable Disposition: HOME-SNF (ED ONLY) Additional Instructions: HYPERGLYCEMIA (HIGH BLOOD SUGAR): You have an abnormally high blood sugar. Not all high blood sugar requires long-term treatment. High blood sugar can be due to medications, , or the stress of illness. (These cases are "borderline diabetes.") If the doctor feels your high blood sugar might resolve with time, you may not require treatment now. It's very important that you follow through, to see if the blood sugar returns to normal levels. Uncontrolled high blood sugar leads to early heart disease, strokes, nerve damage, eye damage, and kidney damage. Call the physician if there is faintness, excess sleepiness, or very rapid breathing. Your blood sugar is about 207. DIABETES: You have an abnormally high blood sugar, suspicious for diabetes. Not all high blood sugar requires long-term treatment. High blood sugar can be due to medications, , or the stress of illness. (These cases are "borderline diabetes.") If the doctor feels your high blood sugar might get better with time, you may not require treatment now. It's very important that you follow through. Uncontrolled high blood sugar leads to early heart disease, strokes, nerve damage, eye damage, and kidney damage. All diabetics should follow a diet designed to control the blood sugar. Overweight diabetics should exercise regularly and lose weight. If this is not sufficient to control the blood sugar, pills or insulin shots are necessary. Younger people who develop diabetes almost always require insulin daily. Home testing of blood sugars or urine sugar is required. Diabetic teaching is available to help you figure insulin doses and monitor the blood sugar. Call the physician if there is faintness, excess sleepiness, or very rapid breathing. If hypoglycemia (LOW blood sugar) develops, symptoms are shakiness, weakness, sweating, and confusion. In this case, you should eat or drink something with sugar at once. INSULIN: Insulin is a natural hormone that lowers blood sugar. Normal blood sugar prevents complications of diabetes. For most diabetics, insulin is the best way to treat the illness. Be sure you know how to measure the insulin correctly. Insulin is measured in "units." There are three types of insulin: N (NPH or long acting), R (regular or short acting), and L (Lente or very long acting). Be sure you are using the right amount of each type. Insulin must be injected into the fat. You can use the abdomen, upper arms , and thighs. Select a different injection site every time. Wipe the site with alcohol before injecting. When first starting insulin, some adjusting of the insulin dose is necessary. Keep a record of each insulin dose and time of injection, and of the blood sugar and the time you test it. Sometimes insulin can make the blood sugar too low. If you become dizzy, sweaty, shaky, or confused, you may be having a hypoglycemic episode. Immediately use juice or some other sweet food. Call the doctor if the symptoms don't go away. ORAL HYPOGLYCEMIC MEDICATION: Oral hypoglycemics are medicines that lower blood sugar in diabetics. They are not effective for younger diabetics who require insulin. Some brands are tolbutamide, Orinase, glipizide, Glucotrol, glyburide, DiaBeta, Glynase, and Micronase. Some medications can increase or decrease the effect of Diabinese. Examples are Clofibrate (Atromid-S), phenylbutazone (Butazolidin), aspirin, sulfonamides, Coumadin, allopurinol (Zyloprim), probenecid (Benemid), acetazolamide (Diamox), beta blockers, steroids, estrogens, Indocin, INH, Levothyroxine, nicotinic acid, Diflucan, Dilantin, and thiazide diuretics. Be sure your doctor knows all the medicines you take, and talk to your doctor before making any changes in your medicines. If you develop symptoms of shakiness, sweats, and lightheadedness, your blood sugar may have gone too low. Eat or drink a small amount of sweet food. If symptoms don't go away, call your doctor. FOLLOW-UP CARE: If you have been referred to a physician for follow-up care, call the physician s office for an appointment as you were instructed or within the next two days. If you experience worsening or a significant change in your symptoms, notify the physician immediately or return to the Emergency Department at any time for re-evaluation. Your blood sugar is 207. Continue to take your insulin just as you have been doing previously. Follow-up with Dr. Tafoya if needed. Referrals: STEPHAN TAFOYA MD [Primary Care Provider] - Follow up as needed
[2017-03-06 17:48] LABS: ABSOLUTE BASOPHILS # (AUTO) 0.1 10^3/uL (0.0-0.2); ABSOLUTE EOSINOPHILS # (AUTO) 0.2 10^3/uL (0.0-0.6); ABSOLUTE LYMPHOCYTES (AUTO) 2.2 10^3/uL (0.5-4.7); ABSOLUTE MONOCYTES (AUTO) 1.3 10^3/uL (0.1-1.4); ABSOLUTE NEUT (AUTO) 8.3 10^3/uL (1.7-8.2); BASOPHILS % (AUTO) 0.8 % (0-2); EOSINOPHILS % (AUTO) 1.7 % (0-6); HEMATOCRIT 40.6 % (36.0-47.0); HEMOGLOBIN 13.5 g/dL (12.0-15.5); HGB HCT DIFFERENCE -0.1; LYMPHOCYTES % (AUTO) 18.1 % (13-45); MEAN CORPUSCULAR HEMOGLOBIN 29.6 pg (27.0-33.4); MEAN CORPUSCULAR HGB CONC 33.2 g/dL (32.0-36.0); MEAN CORPUSCULAR VOLUME 89 fl (80-97); MONOCYTES % (AUTO) 10.6 % (3-13); RED BLOOD COUNT 4.55 10^6/uL (3.72-5.28); RED CELL DISTRIBUTION WIDTH 14.3 % (11.5-14.0); SEGMENTED NEUTROPHILS % (AUTO) 68.8 % (42-78); WHITE BLOOD COUNT 12.1 10^3/uL (4.0-10.5)
[2017-03-06 18:26] LABS: APPEARANCE,URINE CLOUDY; BILIRUBIN,URINE NEGATIVE (NEGATIVE); GLUCOSE, URINE 50 mg/dL (NEGATIVE); KETONES,URINE NEGATIVE (NEGATIVE); LEUKOCYTE ESTERASE,URINE NEGATIVE (NEGATIVE); NITRITE,URINE NEGATIVE (NEGATIVE); PROTEIN,URINE >=500 mg/dL (NEGATIVE); URINE SPECIFIC GRAVITY 1.019
[2017-03-06 18:53] LABS: ALBUMIN 3.8 g/dL (3.5-5.0); ANION GAP 13 (5-19); BILIRUBIN,DIRECT 0.5 mg/dL (0.0-0.4); BILIRUBIN,TOTAL 0.7 mg/dL (0.2-1.3); CARBON DIOXIDE 29 mmol/L (22-30); CHLORIDE 99 mmol/L (98-107); CREATININE RESULT 1.08 mg/dL (0.52-1.25); GLUCOSE 207 mg/dL (75-110); TOTAL PROTEIN 8.4 g/dL (6.3-8.2)
[2017-03-06 19:15] LABS: POTASSIUM 4.1 mmol/L (3.6-5.0)
[2017-03-06 19:16] LABS: ALANINE AMINOTRANSFERASE 14 U/L (9-52); ALKALINE PHOSPHATASE 166 U/L (38-126); ASPARTATE AMINO TRANSFERASE 16 U/L (14-36); BLOOD UREA NITROGEN 23 mg/dL (7-20)
== END 2017-03-06 19:43 ==
LOC: ER 15:25
DX: E11.65 Type 2 diabetes mellitus with hyperglycemia (principal); Z79.4 Long term (current) use of insulin; Z86.73 Personal history of transient ischemic attack (TIA), and cerebral infarction without residual deficits
CPT/HCPCS: 36415; 80053; 81001; 82962; 85025; 99285

== ENCOUNTER 2017-04-18 05:11 | Inpatient (IN) | payer MEDICARE, MEDICAID ==
--- NOTE | 2017-04-18 05:24 | ER Document Report ---
ED General - General Chief Complaint: Shortness Of Breath Stated Complaint: DIFFICULTY BREATHING Time Seen by Provider: 04/18/17 05:21 TRAVEL OUTSIDE OF THE [place] IN LAST 30 DAYS: No - Related Data Allergies/Adverse Reactions: pregabalin [From Lyrica] Allergy (Verified 08/11/16 10:39) Past Medical History - Social History Family History: Reviewed & Not Pertinent, CAD, Hyperlipidemia, Hypertension - Past Medical History Cardiac Medical History: Reports: Hx Congestive Heart Failure, Hx Coronary Artery Disease, Hx Heart Attack, Hx Hypercholesterolemia, Hx Hypertension, Hx Peripheral Vascular Disease Denies: Hx Atrial Fibrillation, Hx Pulmonary Embolism, Hx Heart Murmur Pulmonary Medical History: Reports: Hx Bronchitis Denies: Hx Asthma, Hx COPD, Hx Pneumonia, Hx Respiratory Failure, Hx Sleep Apnea, Hx Tuberculosis Neurological Medical History: Reports: Hx Cerebrovascular Accident - 2007. Denies: Hx Seizures Endocrine Medical History: Reports: Hx Diabetes Mellitus Type 1, Hx Diabetes Mellitus Type 2. Denies: Hx Graves' Disease, Hx Hyperthyroidism, Hx Hypothyroidism Renal/ Medical History: Denies: Hx End Stage Renal Disease, Hx Kidney Stones, Hx Ovarian Cysts, Hx Peritoneal Dialysis, Hx Pelvic Inflammatory Disease Malignancy Medical History: Denies: Hx Breast Cancer, Hx Cervical Cancer, Hx Leukemia, Hx Lung Cancer, Hx Ovarian Cancer GI Medical History: Reports: Hx Diverticulitis - diverticulosis. Denies: Hx Crohn's Disease, Hx Gastroesophageal Reflux Disease, Hx Hiatal Hernia, Hx Irritable Bowel, Hx Liver Failure, Hx Pancreatitis, Hx Ulcer Musculoskeltal Medical History: Denies Hx Arthritis, Denies Hx Fibromyalgia, Denies Hx Multiple Sclerosis, Denies Hx Muscular Dystrophy Skin Medical History: Denies Hx MRSA Psychiatric Medical History: Denies: Hx Bipolar Disorder, Hx Dementia, Hx Depression, Hx Post Traumatic Stress Disorder, Hx Schizophrenia Traumatic Medical History: Denies: Hx Fractures Infectious Medical History: Denies: Hx HIV Past Surgical History: Reports: Hx Cardiac Surgery - Quadruple Bypass, Hx Coronary Artery Bypass Graft - July 31 2011, Hx Tonsillectomy, Hx Vascular Surgery. Denies: Hx Abdominal Surgery, Hx Appendectomy, Hx Bowel Surgery, Hx Cardiac Catheterization, Hx Section, Hx Cholecystectomy, Hx Colostomy, Hx Gastric Bypass Surgery, Hx Herniorrhaphy, Hx Hysterectomy, Hx Mastectomy, Hx Neurologic Surgery, Hx Nose Surgery, Hx Open Heart Surgery, Hx Oral Surgery, Hx Pacemaker, Hx Thyroid Surgery, Hx Tubal Ligation - Immunizations Immunizations up to date: No Hx Diphtheria, Pertussis, Tetanus Vaccination: Yes Hx Pneumococcal Vaccination: 02/04/11 Course - EKG Interpretation by Me Additional EKG results interpreted by me: 04/18/17 05:23 04/18/17 05:25
--- NOTE | 2017-04-18 05:27 | ER Document Report ---
Doctor's Note Notes: 04/18/17 05:25 I performed a quick triage evaluation the patient. Patient is a pleasant 61- year-old female with a history of congestive heart failure who presents with difficulty breathing. She denies any chest pain. She said that she has had similar symptoms in the past with congestive heart failure. She is a former smoker. She says she quit smoking 8 months ago. She was recently released from rehab. She is at rehab after having a wound infection treated on her left lower leg. She still has a wound VAC in place on that leg. She says most her treatment was done at [facility]. On exam patient does have some tachypnea with some increased work of breathing. She does have rales with some scattered wheezing. Lung rangel sound consistent with that of pulmonary edema. She is 95% on 2 L nasal cannula. She initially did have a breathing treatment performed by the paramedics. I will place patient on BiPAP. I will order blood work. Patient will be placed on monitor technician and monitor for improvement. X-ray has also been ordered. EKG G shows sinus tachycardia without evidence of acute CO. 04/18/17 05:27
[2017-04-18 05:44] LABS: ABSOLUTE EOSINOPHILS # (AUTO) 0.3 10^3/uL (0.0-0.6); ABSOLUTE LYMPHOCYTES (AUTO) 4.1 10^3/uL (0.5-4.7); ABSOLUTE MONOCYTES (AUTO) 0.9 10^3/uL (0.1-1.4); ABSOLUTE NEUT (AUTO) 6.1 10^3/uL (1.7-8.2); BASOPHILS % (AUTO) 0.4 % (0-2); EOSINOPHILS % (AUTO) 2.6 % (0-6); HEMOGLOBIN 10.5 g/dL (12.0-15.5); HGB HCT DIFFERENCE -1.5; LYMPHOCYTES % (AUTO) 35.6 % (13-45); MEAN CORPUSCULAR HEMOGLOBIN 29.4 pg (27.0-33.4); MEAN CORPUSCULAR HGB CONC 31.9 g/dL (32.0-36.0); MEAN CORPUSCULAR VOLUME 92 fl (80-97); MONOCYTES % (AUTO) 8.1 % (3-13); RED BLOOD COUNT 3.58 10^6/uL (3.72-5.28); RED CELL DISTRIBUTION WIDTH 15.9 % (11.5-14.0); SEGMENTED NEUTROPHILS % (AUTO) 53.3 % (42-78); WHITE BLOOD COUNT 11.5 10^3/uL (4.0-10.5)
[2017-04-18] MEDS: NITROGLYCERIN/D5W 50 MG/250 ML RTUINJ IV PRN ×2 (05:44→13:34)
[2017-04-18 05:45] LABS: VENOUS BLOOD BASE EXCESS 1.4 mmol/L; VENOUS BLOOD HCO3 28.7 mmol/L (20-32); VENOUS BLOOD PCO2 58.3 mmHg (35-63); VENOUS BLOOD PH 7.31 (7.30-7.42)
[2017-04-18 06:03] LABS: ALANINE AMINOTRANSFERASE 25 U/L (9-52); ALBUMIN 3.7 g/dL (3.5-5.0); ALKALINE PHOSPHATASE 142 U/L (38-126); ANION GAP 11 (5-19); ASPARTATE AMINO TRANSFERASE 14 U/L (14-36); BILIRUBIN,DIRECT 0.2 mg/dL (0.0-0.4); BILIRUBIN,TOTAL 0.7 mg/dL (0.2-1.3); BLOOD UREA NITROGEN 12 mg/dL (7-20); CALCIUM 9.4 mg/dL (8.4-10.2); CARBON DIOXIDE 27 mmol/L (22-30); CHLORIDE 106 mmol/L (98-107); CREATINE KINASE 34 U/L (30-135); CREATININE RESULT 0.73 mg/dL (0.52-1.25); GLUCOSE 282 mg/dL (75-110); POTASSIUM 3.5 mmol/L (3.6-5.0); SODIUM 143.8 mmol/L (137-145); TOTAL PROTEIN 7.7 g/dL (6.3-8.2)
[2017-04-18] MEDS ORDERED: FUROSEMIDE INJ/PF 40 MG/4 ML SDV IV ONE (06:13)
[2017-04-18 06:15] LABS: CREATINE KINASE MB 0.66 ng/mL (<4.55); TROPONIN I 0.019 ng/mL
--- NOTE | 2017-04-18 06:17 | RADIOLOGY REPORT (SQ) ---
EXAM DESCRIPTION: CHEST SINGLE VIEW CLINICAL HISTORY: dyspnea COMPARISON: 11/07/2016 FINDINGS: Single frontal view of the chest. Cardiomegaly. Pulmonary vascular congestion with possible interstitial edema. Prior median sternotomy. Tortuosity of thoracic aorta. No pneumothorax or definite pleural effusion. Leads overlie the chest. No acute osseous abnormalities. Upper abdominal soft tissues are unremarkable. IMPRESSION: 1. Cardiomegaly with pulmonary vascular congestion and likely interstitial pulmonary edema.
--- NOTE | 2017-04-18 06:44 | ER Document Report ---
ED Respiratory Problem - General Mode of Arrival: Ambulatory Information source: Patient TRAVEL OUTSIDE OF THE [place] IN LAST 30 DAYS: No <LUCRECIA SINCLAIR - Last Filed: 04/18/17 08:17> <CHRIS NGUYEN - Last Filed: 04/18/17 14:33> - General Chief Complaint: Shortness Of Breath Stated Complaint: DIFFICULTY BREATHING Time Seen by Provider: 04/18/17 05:21 Notes: Patient is a 61 year old female that presents to the emergency department today with complaints of shortness of breath for the last two or three days. Patient states that she has not had any chest pain with her shortness of breath. Patient states she feels much better now after being placed on bi-pap. Patient denies any medicine changes or diet changes recently. (LUCRECIA SINCLAIR) - Related Data Allergies/Adverse Reactions: pregabalin [From Lyrica] Allergy (Verified 08/11/16 10:39) Home Medications: Current Home Medications Atorvastatin Calcium [Lipitor 40 mg Tablet] 40 mg PO QHS 04/18/17 [History] Clopidogrel Bisulfate [Plavix 75 mg Tablet] 75 mg PO DAILY 04/18/17 [History] Collagenase Clostridium Hist. [Santyl Ointment 30 gm] 1 applic TP [id number] [History] Gabapentin [Neurontin 300 mg Capsule] 300 mg PO Q6 04/18/17 [History] Hydromorphone HCl [Dilaudid 2 mg Tablet] 2 mg PO Q4HP PRN 04/18/17 [History] Insulin Glargine,Hum.rec.anlog [Lantus Solostar] 30 unit SQ QHS 04/18/17 [ History] Insulin Lispro [Humalog Insulin 100 Unit/1 ml 3 ml Vial] 5 unit SUBCUT MEALS [History] Lisinopril [Prinivil 40 mg Tablet] 40 mg PO DAILY 04/18/17 [History] Metformin HCl [Glucophage] 850 mg PO BIDBS 04/18/17 [History] Nitroglycerin [Nitro-Dur 10 mg (0.4MG/Hr) Transdermal Patch] 1 patch TD QAM [History] Past Medical History - General Information source: Patient - Social History Smoking Status: Former Smoker Cigarette use (# per day): No Chew tobacco use (# tins/day): No Drug Abuse: None Lives with: Family Family History: Reviewed & Not Pertinent, CAD, Hyperlipidemia, Hypertension Patient has suicidal ideation: No Patient has homicidal ideation: No - Past Medical History Cardiac Medical History: Reports: Hx Congestive Heart Failure, Hx Coronary Artery Disease, Hx Heart Attack, Hx Hypercholesterolemia, Hx Hypertension, Hx Peripheral Vascular Disease Pulmonary Medical History: Reports: Hx Bronchitis Neurological Medical History: Reports: Hx Cerebrovascular Accident - 2007 Endocrine Medical History: Reports: Hx Diabetes Mellitus Type 2 GI Medical History: Reports: Hx Diverticulitis - diverticulosis Past Surgical History: Reports: Hx Cardiac Surgery - Quadruple Bypass, Hx Coronary Artery Bypass Graft - July 31 2011, Hx Tonsillectomy, Hx Vascular Surgery - Immunizations Immunizations up to date: No Hx Diphtheria, Pertussis, Tetanus Vaccination: Yes Hx Pneumococcal Vaccination: 02/04/11 <LUCRECIA SINCLAIR - Last Filed: 04/18/17 08:17> Review of Systems - Review of Systems Constitutional: No symptoms reported EENT: No symptoms reported Cardiovascular: denies: Chest pain Respiratory: See HPI, Short of breath Gastrointestinal: No symptoms reported Genitourinary: No symptoms reported Female Genitourinary: No symptoms reported Musculoskeletal: No symptoms reported Skin: No symptoms reported Hematologic/Lymphatic: No symptoms reported Neurological/Psychological: No symptoms reported -: Yes All other systems reviewed and negative <LUCRECIA SINCLAIR - Last Filed: 04/18/17 08:17> Physical Exam - Vital signs Interpretation: Hypertensive, Tachypneic - General General appearance: Alert In distress: Moderate - Respiratory Respiratory status: Respiratory distress Breath sounds: Decreased air movement, Rhonchi - Cardiovascular Rhythm: Regular - Abdominal Inspection: Normal Tenderness: Nontender - Extremities General upper extremity: Normal inspection, Normal ROM General lower extremity: Edema - Neurological Neuro grossly intact: Yes Cognition: Normal Orientation: AAOx4 [place] Coma Scale Eye Opening: Spontaneous [place] Coma Scale Verbal: Oriented [place] Coma Scale Motor: Obeys Commands [place] Coma Scale Total: 15 <CHRIS NGUYEN - Last Filed: 04/18/17 14:33> - Vital signs Vitals: Pulse Ox 100 04/18/17 05:20 Course - Laboratory Result Diagrams: 04/18/17 05:25 04/18/17 05:25 <LUCRECIA SINCLAIR - Last Filed: 04/18/17 08:17> - Laboratory Result Diagrams: 04/18/17 05:25 04/18/17 05:25 - Diagnostic Test Radiology reviewed: Image reviewed, Reports reviewed <CHRIS NGUYEN - Last Filed: 04/18/17 14:33> - Re-evaluation Re-evalutation: 04/18/17 08:17 Dr. Burnett agrees to admit patient to [facility] (LUCRECIA SINCLAIR) 04/18/17 06:20 Patient is a 61-year-old female who presents with respiratory distress and fluid overload. Patient was initially hypertensive and a nitroglycerin drip was initiated as well as Lasix. The patient was placed on BiPAP. Patient responded well to nitroglycerin and BiPAP. Chest x-ray is consistent with fluid overload. Patient's blood pressure and respiratory status is improving. Patient has not had chest pain. No elevation of troponin. Patient was discussed with her primary doctor, Dr. Moffett, who agrees with admission to the [facility]. Patient is agreeable to this plan. No evidence for pneumonia. Stable at time of admission. 04/18/17 07:45 Chest x-ray is consistent with fluid overload. Patient's blood pressure and respiratory status is improving. Patient has not had chest pain. No elevation of troponin. Patient was discussed with her primary doctor, Dr. Moffett, who agrees with admission to the [facility]. Patient is agreeable to this plan. No evidence for pneumonia. Stable at time of admission. (CHRIS NGUYEN) - Vital Signs Vital signs: Temp Pulse Resp BP Pulse Ox 98.2 F 17 162/88 H 92 04/18/17 11:01 04/18/17 14:01 04/18/17 14:01 04/18/17 14:01 - Laboratory Laboratory results interpreted by me: 04/18/17 04/18/17 04/18/17 05:25 05:25 05:25 WBC 11.5 H RBC 3.58 L Hgb 10.5 L Hct 33.0 L MCHC 31.9 L RDW 15.9 H Potassium 3.5 L Glucose 282 H Alkaline Phosphatase 142 H NT-Pro-B Natriuret Pep 2870 H - EKG Interpretation by Me Additional EKG results interpreted by me: no acute changes (CHRIS NGUYEN) Critical Care Note - Critical Care Note Total time excluding time spent on procedures (mins): 60 - Evaluation and management of respiratory distress, acute heart failure exacerbation, multiple re-evaluations, coordination of admission, counseling patient <CHRIS NGUYEN - Last Filed: 04/18/17 14:33> Discharge <LUCRECIA SINCLAIR - Last Filed: 04/18/17 08:17> - Discharge Admitting Provider: [facility] Unit Admitted: [facility] <CHRIS NGUYEN - Last Filed: 04/18/17 14:33> - Discharge Clinical Impression: Acute on chronic systolic CHF (congestive heart failure), Respiratory distress Condition: Stable Disposition: ADMITTED INPATIENT Scribe Attestation: 04/18/17 14:33 I personally performed the services described in the documentation, reviewed and edited the documentation which was dictated to the scribe in my presence, and it accurately records my words and actions. (CHRIS NGUYEN) Scribe Documentation - Scribe Written by Trent:: Trent Barajas, 04/18/2017 0739 acting as scribe for :: Jame <LUCRECIA SINCLAIR - Last Filed: 04/18/17 08:17>
[2017-04-18] MEDS ORDERED: INSULIN REG, HUMAN 100 UNIT/ML 3 ML VIAL (PYX) IV ONE (12:19)
[2017-04-18] MEDS: HYDROMORPHONE HCL 2 MG TABLET PO PRN ×2 (12:45→16:37)
[2017-04-18] MEDS: GABAPENTIN 300 MG CAPSULE PO SCH ×2 (12:47→19:50)
[2017-04-18] MEDS ORDERED: CLOPIDOGREL BISULFATE 75 MG TABLET PO ONE (13:00)
[2017-04-18] MEDS ORDERED: LISINOPRIL 10 MG TABLET PO ONE (13:00)
--- NOTE | 2017-04-18 13:30 | PDOC H&P ---
History of Present Illness Admission Date/PCP: 04/18/17 08:34 STEPHAN MICHELET Patient complains of: Difficulty with breathing History of Present Illness: JAVIER BURGER is a 61 year old female known to my practice who presented to the ED with complaint of difficulty with breathing that has been ongoing for about 2 -3 days. Patient was recently discharged from rehabilitation center following her admission to [facility] for left leg infected ulcer. Patient reported that she has been without her medication for about 3 days. She denied any associated chest pain. No associated irregular heart beat, excessive salt or water intake. She did admit to coughing with minimal sputum production. No fever or chills. She quit cigarette smoking about 8-10 months ago. She claimed compliance with dietary restrictions regarding her diabetes mellitus management. Her initial evaluation in the ED was remarkable for tachycardia, tachypenia, and vascular congestion on physical examination. 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 Past Medical History Cardiac Medical History: Reports: Congestive Heart Failure, Coronary Artery Disease, Myocardial Infarction, Hyperlipidema, Hypertension, Peripheral Vascular Disease Denies: Atrial Fibrillation, Pulmonary Embolism, Heart Murmur Pulmonary Medical History: Reports: Bronchitis Denies: Asthma, Chronic Obstructive Pulmonary Disease (COPD), Pneumonia, Respiratory Failure, Sleep Apnea, Tuberculosis Neurological Medical History: Denies: Seizures Endocrine Medical History: Reports: Diabetes Mellitus Type 1, Diabetes Mellitus Type 2 Denies: Hyperthyroidism, Hypothyroidism Renal/ Medical History: Denies: End Stage Renal Disease Malignancy Medical History: Denies: Breast Cancer, Cervical Cancer, Leukemia, Lung Cancer, Ovarian Cancer GI Medical History: Reports: Diverticulitis - diverticulosis Denies: Crohn's Disease, Gastroesophageal Reflux Disease, Hiatal Hernia Musculoskeltal Medical History: Denies: Arthritis, Fibromyalgia Psychiatric Medical History: Denies: Bipolar Disorder, Dementia, Depression, Post Traumatic Stress Disorder Hematology: Denies: Anemia, Hemophilia, Sickle Cell Disease Infectious Medical History: Denies: HIV Past Surgical History Past Surgical History: Reports: Coronary Artery Bypass Graft - July 31 2011, Tonsillectomy, Vascular Surgery Denies: Amputation, Appendectomy, Cardiac Catheterization, Section, Cholecystectomy, Colostomy, Gastric Bypass Surgery, Herniorrhaphy, Hysterectomy , Mastectomy, Pacemaker, Tubal Ligation Social History Lives with: Family Smoking Status: Former Smoker Frequency of Alcohol Use: None Hx Recreational Drug Use: No Drugs: None Hx Prescription Drug Abuse: No Family History Family History: Reviewed & Not Pertinent, CAD, Hyperlipidemia, Hypertension Parental Family History Reviewed: Yes Children Family History Reviewed: Yes Sibling(s) Family History Reviewed.: Yes Medication/Allergy Home Medications: Atorvastatin Calcium [Lipitor 40 mg Tablet] 40 mg PO QHS 04/18/17 Clopidogrel Bisulfate [Plavix 75 mg Tablet] 75 mg PO DAILY 04/18/17 Collagenase Clostridium Hist. [Santyl Ointment 30 gm] 1 applic TP [id number]@2200 Gabapentin [Neurontin 300 mg Capsule] 300 mg PO Q6 04/18/17 Hydromorphone HCl [Dilaudid 2 mg Tablet] 2 mg PO Q4HP PRN 04/18/17 Insulin Glargine,Hum.rec.anlog [Lantus Solostar] 30 unit SQ QHS 04/18/17 Insulin Lispro [Humalog Insulin 100 Unit/1 ml 3 ml Vial] 5 unit SUBCUT MEALS Lisinopril [Prinivil 40 mg Tablet] 40 mg PO DAILY 04/18/17 Metformin HCl [Glucophage] 850 mg PO BIDBS 04/18/17 Nitroglycerin [Nitro-Dur 10 mg (0.4MG/Hr) Transdermal Patch] 1 patch TD QAM Allergies/Adverse Reactions: pregabalin [From Lyrica] Allergy (Verified 08/11/16 10:39) Review of Systems Constitutional: PRESENT: weakness - generalized Nose, Mouth, and Throat: PRESENT: headache(s) - on NTG infusion Cardiovascular: PRESENT: dyspnea on exertion Respiratory: PRESENT: cough, dyspnea, sputum - minimally Gastrointestinal: ABSENT: abdominal pain, constipation, diarrhea, hematemesis, hematochezia, nausea, vomiting Genitourinary: ABSENT: dysuria, hematuria Musculoskeletal: ABSENT: joint swelling Integumentary: PRESENT: wounds - with wound vac device in use Neurological: PRESENT: weakness - generalized Psychiatric: ABSENT: anxiety, depression, homidical ideation, suicidal ideation Endocrine: ABSENT: cold intolerance, heat intolerance, polydipsia, polyuria Hematologic/Lymphatic: ABSENT: easy bleeding, easy bruising, lymphadenopathy Physical Exam Vital Signs: Temp Pulse Resp BP Pulse Ox 98.2 F 15 192/98 H 100 04/18/17 11:01 04/18/17 12:46 04/18/17 12:46 04/18/17 12:46 Intake & Output 04/17/17 04/18/17 04/19/17 06:59 06:59 06:59 Weight 106.594 kg General appearance: PRESENT: mild distress - remain on BiPAP support, obese Head exam: PRESENT: atraumatic, normocephalic Eye exam: PRESENT: conjunctiva pink, EOMI, PERRLA. ABSENT: scleral icterus Ear exam: PRESENT: normal external ear exam Mouth exam: PRESENT: moist, tongue midline Teeth exam: PRESENT: poor dentation Throat exam: ABSENT: post pharyngeal erythema, tonsillar erythema, tonsillar exudate, tonsillogmegaly, other Neck exam: PRESENT: full ROM. ABSENT: carotid bruit, JVD, lymphadenopathy, thyromegaly Respiratory exam: PRESENT: decreased breath sounds, rales, rhonchi, tachypnea, wheezes Cardiovascular exam: PRESENT: RRR, +S1, +S2, systolic murmur, tachycardia. ABSENT: gallop, rubs Pulses: PRESENT: +1 pedal pulses bilateral Vascular exam: PRESENT: normal capillary refill. ABSENT: pallor GI/Abdominal exam: PRESENT: normal bowel sounds, soft. ABSENT: distended, guarding, mass, organolmegaly, rebound, tenderness Rectal exam: PRESENT: deferred Extremities exam: PRESENT: other - wound vac application to left leg wound and functioning Musculoskeletal exam: PRESENT: deformity - related to joint involvement with arthritis Neurological exam: PRESENT: alert, awake, oriented to person, oriented to place , oriented to time, oriented to situation, CN II-XII grossly intact. ABSENT: motor sensory deficit Psychiatric exam: PRESENT: appropriate affect, normal mood. ABSENT: homicidal ideation, suicidal ideation Skin exam: PRESENT: dry, warm, other - wound with wound vac application on left leg Results Laboratory Results: I reviewed her lab results on [employer] and form a significant part of my medical decision making Impressions: Chest X-Ray 04/18/17 05:21 IMPRESSION: 1. Cardiomegaly with pulmonary vascular congestion and likely interstitial pulmonary edema. Assessment & Plan - Diagnosis (1) Acute on chronic systolic CHF (congestive heart failure) Is this a current diagnosis for this admission?: Yes Plan: See admitting attending physician orders. (2) URTI (acute upper respiratory infection) Is this a current diagnosis for this admission?: Yes Plan: See admitting attending physician orders. (3) Respiratory distress Is this a current diagnosis for this admission?: Yes Plan: See admitting attending physician orders. 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 (5) CAD (coronary artery disease) Qualifiers: Coronary Disease-Associated Artery/Lesion type: unspecified vessel or lesion type [place] vs. transplanted heart: [place] heart Associated angina: without angina Qualified Code(s): I25.10 - Atherosclerotic heart disease of [place] coronary artery without angina pectoris Is this a current diagnosis for this admission?: Yes Plan: See admitting attending physician orders. (6) S/P CABG (coronary artery bypass graft) Is this a current diagnosis for this admission?: Yes Plan: See admitting attending physician orders. (7) HLD (hyperlipidemia) Qualifiers: Hyperlipidemia type: pure hypercholesterolemia Qualified Code(s): E78.00 - Pure hypercholesterolemia, unspecified Is this a current diagnosis for this admission?: Yes Plan: See admitting attending physician orders. (8) HTN (hypertension) Qualifiers: Hypertension type: essential hypertension Qualified Code(s): I10 - Essential (primary) hypertension Is this a current diagnosis for this admission?: Yes Plan: See admitting attending physician orders. (9) Hx of stroke without residual deficits Is this a current diagnosis for this admission?: Yes Plan: See admitting attending physician orders. (10) PAD (peripheral artery disease) Is this a current diagnosis for this admission?: Yes Plan: See admitting attending physician orders. - Time Time Spent: 50 to 70 Minutes Medications reviewed and adjusted accordingly: Yes Anticipated discharge: Home with Homehealth Within: Other - Inpatient Certification Based on my medical assessment, after consideration of the patient's comorbidities, presenting symptoms, or acuity I expect that the services needed warrant INPATIENT care.: Yes I certify that my determination is in accordance with my understanding of Medicare's requirements for reasonable and necessary INPATIENT services [42 CFR 412.3e].: Yes Medical Necessity: Need Close Monitoring Due to Risk of Patient Decompensation, Need For IV Fluids, Need For Continuous Telemetry Monitoring, Need for Nebulizer Therapy and Monitoring of Response, Need for IV Antibiotics, Risk of Complication if Not Cared For in Hospital - Plan Summary Plan Summary: See admitting attending physician orders.
[2017-04-18] MEDS: INSULIN LISPRO 100 UNIT/ML 3 ML VIAL SUBCUT SCH ×2 (13:33→16:36)
[2017-04-18] MEDS ORDERED: CARVEDILOL 6.25 MG TABLET PO ONE (14:00)
[2017-04-18] MEDS: METFORMIN HCL 850 MG TABLET PO SCH (19:57)
[2017-04-18] MEDS ORDERED: DEXTROSE 50%-WATER SYRINGE 12.5 GM/25 ML DOSE IV PRN (20:27)
[2017-04-18] MEDS ORDERED: DEXTROSE 50%-WATER SYRINGE 25 GM/50 ML DOSE IV PRN (20:27)
[2017-04-18] MEDS ORDERED: GLUCAGON,HUMAN RECOMB 1 MG INJ IM PRN (20:27)
[2017-04-18] MEDS ORDERED: DEXTROSE 40% GEL 15 GM TUBE X 2 PO PRN (20:27)
[2017-04-18] MEDS ORDERED: DEXTROSE 40% GEL 15 GM TUBE PO PRN (20:27)
[2017-04-18] MEDS: INSULIN GLARGINE,HUM.REC.ANLOG 300 UNIT/3 ML INSULN.PEN SUBCUT SCH (21:30)
[2017-04-18] MEDS: INSULIN LISPRO 100 UNIT/ML 3 ML VIAL SUBCUT PRN (21:32)
[2017-04-18] MEDS: ATORVASTATIN CALCIUM 40 MG TABLET PO SCH (21:33)
[2017-04-18] MEDS: CARVEDILOL 6.25 MG TABLET PO SCH (21:33)
[2017-04-18] MEDS: COLLAGENASE CLOSTRIDIUM HIST. OINT 30 GM TP SCH (21:34)
[2017-04-19] MEDS: GABAPENTIN 300 MG CAPSULE PO SCH ×4 (00:29→17:44)
--- NOTE | 2017-04-19 07:31 | EKG REPORT ---
SEVERITY:- ABNORMAL ECG - SINUS TACHYCARDIA PROBABLE LEFT ATRIAL ABNORMALITY LVH WITH SECONDARY REPOLARIZATION ABNORMALITY : Confirmed by: Irma Hitchcock 19-Apr-2017 07:30:37
[2017-04-19] MEDS: INSULIN LISPRO 100 UNIT/ML 3 ML VIAL SUBCUT PRN ×2 (08:01→17:44)
[2017-04-19] MEDS: METFORMIN HCL 850 MG TABLET PO SCH ×2 (08:01→17:44)
[2017-04-19] MEDS: INSULIN LISPRO 100 UNIT/ML 3 ML VIAL SUBCUT SCH ×3 (08:01→17:44)
[2017-04-19] MEDS: CARVEDILOL 6.25 MG TABLET PO SCH ×2 (10:29→21:40)
[2017-04-19] MEDS: FUROSEMIDE INJ/PF 40 MG/4 ML SDV IV SCH (10:29)
[2017-04-19] MEDS: ASPIRIN 81 MG TABLET, ENT COATED PO SCH (10:29)
[2017-04-19] MEDS: CLOPIDOGREL BISULFATE 75 MG TABLET PO SCH (10:30)
[2017-04-19] MEDS: LISINOPRIL 10 MG TABLET PO SCH (10:30)
[2017-04-19] MEDS: HYDROMORPHONE HCL 2 MG TABLET PO PRN (16:16)
[2017-04-19] MEDS ORDERED: NITROGLYCERIN 10 MG (0.4 MG/HR) PATCH.TD24 TD ONE (19:09)
--- NOTE | 2017-04-19 19:19 | PDOC PROGRESS REPORT ---
Subjective Progress Note for:: 04/19/17 Subjective:: Patient reported improvement in her breathing. No chest pain. Off Nitroglycerin infusion. Her blood pressure remain fairly stable subsequently. No fever or chills. No abdominal pain, nausea, or vomiting. Wound vac on left leg remain functional. Reason For Visit: ACUTE ON CHRONIC SYSTOLIC CONGESTIVE HEART FAILURE Physical Exam Vital Signs: Temp Pulse Resp BP Pulse Ox 97.9 F 79 20 100/62 99 04/19/17 17:07 04/19/17 17:07 04/19/17 17:07 04/19/17 17:47 04/19/17 18:41 Intake & Output 04/18/17 04/19/17 04/20/17 06:59 06:59 06:59 Intake Total 340 1322 Balance 340 1322 Weight 103.2 kg 106.9 kg General appearance: PRESENT: no acute distress, morbidly obese Head exam: PRESENT: atraumatic, normocephalic Eye exam: PRESENT: conjunctiva pink, EOMI, PERRLA. ABSENT: scleral icterus Mouth exam: PRESENT: moist Teeth exam: PRESENT: poor dentation Respiratory exam: PRESENT: clear to auscultation jerrica, decreased breath sounds - at lung bases Cardiovascular exam: PRESENT: RRR. ABSENT: diastolic murmur, rubs, systolic murmur Vascular exam: PRESENT: normal capillary refill. ABSENT: pallor GI/Abdominal exam: PRESENT: normal bowel sounds, soft. ABSENT: distended, guarding, mass, organolmegaly, rebound, tenderness Extremities exam: PRESENT: tenderness - to palpation of muscles. ABSENT: pedal edema Musculoskeletal exam: PRESENT: deformity - related to multiple joints involvement with arthritis Neurological exam: PRESENT: alert, awake, oriented to person, oriented to place , oriented to time, oriented to situation, CN II-XII grossly intact. ABSENT: motor sensory deficit Psychiatric exam: PRESENT: appropriate affect, normal mood. ABSENT: homicidal ideation, suicidal ideation Skin exam: PRESENT: dry, warm, other - wound on ;ateral aspect of left leg with wound vac application insitu. Results Laboratory Results: Reviewed on [employer]. Impressions: Chest X-Ray 04/18/17 05:21 IMPRESSION: 1. Cardiomegaly with pulmonary vascular congestion and likely interstitial pulmonary edema. Assessment & Plan - Diagnosis (1) Acute on chronic systolic CHF (congestive heart failure) Is this a current diagnosis for this admission?: Yes (2) URTI (acute upper respiratory infection) Is this a current diagnosis for this admission?: Yes (3) Respiratory distress Is this a current diagnosis for this admission?: Yes (4) Type 2 diabetes mellitus Qualifiers: Diabetes mellitus complication status: with unspecified complications Diabetes mellitus correction insulin use: with correction use Qualified Code(s) : E11.8 - Type 2 diabetes mellitus with unspecified complications; Z79.4 - alf (current) use of insulin; 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 transplanted heart: [place] heart Associated angina: without angina Qualified Code(s): I25.10 - Atherosclerotic heart disease of [place] coronary artery without angina pectoris Is this a current diagnosis for this admission?: Yes (6) S/P CABG (coronary artery bypass graft) Is this a current diagnosis for this admission?: Yes (7) HLD (hyperlipidemia) Qualifiers: Hyperlipidemia type: pure hypercholesterolemia Qualified Code(s): E78.00 - Pure hypercholesterolemia, unspecified Is this a current diagnosis for this admission?: Yes (8) HTN (hypertension) Qualifiers: Hypertension type: essential hypertension Qualified Code(s): I10 - Essential (primary) hypertension Is this a current diagnosis for this admission?: Yes (9) Hx of stroke without residual deficits Is this a current diagnosis for this admission?: Yes (10) PAD (peripheral artery disease) Is this a current diagnosis for this admission?: Yes (11) Chronic combined systolic and diastolic CHF (congestive heart failure) Is this a current diagnosis for this admission?: Yes Plan: See attending physician orders. - Time Time Spent with patient: 35 or more minutes Medications reviewed and adjusted accordingly: Yes Anticipated discharge: Home with Homehealth Within: Other - Inpatient Certification Based on my medical assessment, after consideration of the patient's comorbidities, presenting symptoms, or acuity I expect that the services needed warrant INPATIENT care.: Yes I certify that my determination is in accordance with my understanding of Medicare's requirements for reasonable and necessary INPATIENT services [42 CFR 412.3e].: Yes Medical Necessity: Need Close Monitoring Due to Risk of Patient Decompensation, Need For Continuous Telemetry Monitoring, Risk of Complication if Not Cared For in Hospital Post Hospital Care: D/C Project Hire Documentation - Plan Summary Plan Summary: Continue current anti CHF management. Obtain echocardiogarm in AM. Obtain CBC + Diff, CMP in AM.
[2017-04-19] MEDS ORDERED: CARVEDILOL 6.25 MG TABLET PO SCH (19:22)
[2017-04-19 20:53] LABS: APPEARANCE,URINE SLIGHTLY-CLOUDY; BILIRUBIN,URINE NEGATIVE (NEGATIVE); GLUCOSE, URINE NEGATIVE (NEGATIVE); KETONES,URINE NEGATIVE (NEGATIVE); LEUKOCYTE ESTERASE,URINE NEGATIVE (NEGATIVE); NITRITE,URINE NEGATIVE (NEGATIVE); PROTEIN,URINE 100 mg/dL (NEGATIVE); URINE SPECIFIC GRAVITY 1.014; UROBILINOGEN,URINE NEGATIVE mg/dL (<2.0)
[2017-04-19] MEDS: ATORVASTATIN CALCIUM 40 MG TABLET PO SCH (21:38)
[2017-04-19] MEDS: INSULIN GLARGINE,HUM.REC.ANLOG 300 UNIT/3 ML INSULN.PEN SUBCUT SCH (21:42)
[2017-04-20] MEDS: GABAPENTIN 300 MG CAPSULE PO SCH ×5 (00:09→23:34)
[2017-04-20 05:58] LABS: ABSOLUTE BASOPHILS # (AUTO) 0.1 10^3/uL (0.0-0.2); ABSOLUTE EOSINOPHILS # (AUTO) 0.3 10^3/uL (0.0-0.6); ABSOLUTE LYMPHOCYTES (AUTO) 3.3 10^3/uL (0.5-4.7); ABSOLUTE MONOCYTES (AUTO) 0.8 10^3/uL (0.1-1.4); ABSOLUTE NEUT (AUTO) 5.2 10^3/uL (1.7-8.2); BASOPHILS % (AUTO) 0.9 % (0-2); EOSINOPHILS % (AUTO) 3.4 % (0-6); HEMATOCRIT 29.2 % (36.0-47.0); HEMOGLOBIN 9.5 g/dL (12.0-15.5); HGB HCT DIFFERENCE -0.7; LYMPHOCYTES % (AUTO) 34.4 % (13-45); MEAN CORPUSCULAR HEMOGLOBIN 29.6 pg (27.0-33.4); MEAN CORPUSCULAR HGB CONC 32.5 g/dL (32.0-36.0); MEAN CORPUSCULAR VOLUME 91 fl (80-97); MONOCYTES % (AUTO) 8.1 % (3-13); RED BLOOD COUNT 3.21 10^6/uL (3.72-5.28); RED CELL DISTRIBUTION WIDTH 15.8 % (11.5-14.0); SEGMENTED NEUTROPHILS % (AUTO) 53.2 % (42-78); WHITE BLOOD COUNT 9.7 10^3/uL (4.0-10.5)
[2017-04-20 06:17] LABS: ALANINE AMINOTRANSFERASE 31 U/L (9-52); ALBUMIN 3.1 g/dL (3.5-5.0); ALKALINE PHOSPHATASE 104 U/L (38-126); ANION GAP 9 (5-19); ASPARTATE AMINO TRANSFERASE 29 U/L (14-36); BILIRUBIN,DIRECT 0.3 mg/dL (0.0-0.4); BILIRUBIN,TOTAL 0.4 mg/dL (0.2-1.3); BLOOD UREA NITROGEN 30 mg/dL (7-20); CARBON DIOXIDE 28 mmol/L (22-30); CHLORIDE 105 mmol/L (98-107); CREATININE RESULT 0.94 mg/dL (0.52-1.25); GLUCOSE 169 mg/dL (75-110); POTASSIUM 4.1 mmol/L (3.6-5.0); SODIUM 141.8 mmol/L (137-145); TOTAL PROTEIN 6.7 g/dL (6.3-8.2)
[2017-04-20] MEDS: METFORMIN HCL 850 MG TABLET PO SCH ×2 (08:00→17:43)
[2017-04-20] MEDS: INSULIN LISPRO 100 UNIT/ML 3 ML VIAL SUBCUT SCH ×3 (08:00→17:42)
[2017-04-20] MEDS: NITROGLYCERIN 10 MG (0.4 MG/HR) PATCH.TD24 TD SCH (08:00)
[2017-04-20] MEDS: FUROSEMIDE INJ/PF 40 MG/4 ML SDV IV SCH (09:37)
[2017-04-20] MEDS: CARVEDILOL 6.25 MG TABLET PO SCH ×2 (09:37→21:31)
[2017-04-20] MEDS: ASPIRIN 81 MG TABLET, ENT COATED PO SCH (09:37)
[2017-04-20] MEDS: LISINOPRIL 10 MG TABLET PO SCH (09:38)
[2017-04-20] MEDS: CLOPIDOGREL BISULFATE 75 MG TABLET PO SCH (09:38)
[2017-04-20] MEDS: INSULIN LISPRO 100 UNIT/ML 3 ML VIAL SUBCUT PRN ×2 (13:16→21:31)
--- NOTE | 2017-04-20 13:28 | XCELERA REPORT ---
[address] [address] Transthoracic Echocardiogram Report Name: JAVIER BURGER Age: 61 yrs Gender: Female : 1955 Patient Status: Inpatient Patient Location: [address] [place] [address] Study Date: 04/20/2017 09:49 AM Height: 64 in Weight: 235 lb BSA: 2.1 m2 Procedure: A two-dimensional transthoracic echocardiogram with color flow and Doppler was performed. Study Quality: Fair. Reason For Study: Acute on chronic CHF History: Acute on chronic CHF. Ordering Physician: STEPHAN TAFOYA Performed By: Matilda Cordero Interpretation Summary The left ventricle is normal in size. There is normal left ventricular wall thickness. LV EF is 35% Doppler measurements suggest normal left ventricular diastolic function The right atrium is normal. There is no thrombus. The right ventricle is grossly normal size. The left atrial size is normal. There is no mitral valve stenosis. There is a mild amount of mitral regurgitation There is mild aortic stenosis There is a peak gradient of 16 mm of Hg. There is no LVOT obstruction. No aortic regurgitation is present. There is a mild amount of tricuspid regurgitation There is mild pulmonary hypertension by echo rvsp IS 39 MM OF hG , WITH ra MEAN OF 10. There is no pericardial effusion. MMode/2D Measurements & Calculations RVDd: 2.9 cm LVIDd: 4.7 cmFS: 17.2 % Ao root diam: 3.0 cm IVSd: 1.1 cm LVIDs: 3.9 cmEDV(Teich): 104.5 ml LVPWd: 1.1 cmESV(Teich): 66.9 ml Ao root area: 7.1 cm2 EF(Teich): 36.0 % LA dimension: 3.3 cm LVOT diam: 2.1 cm LVOT area: 3.4 cm2 Doppler Measurements & Calculations MV E max mia: MV P1/2t max mia: Ao V2 max: LV V1 max P.5 cm/sec 116.8 cm/sec 201.7 cm/sec 2.2 mmHg MV A max mia: MV P1/2t: 68.7 msec Ao max PG: LV V1 mean P.6 cm/sec MVA(P1/2t): 3.2 cm2 16.3 mmHg 1.2 mmHg MV E/A: 1.1 MV dec slope: Ao V2 mean: LV V1 max: 497.8 cm/sec2 135.9 cm/sec 74.9 cm/sec Ao mean PG: LV V1 mean: 8.5 mmHg 49.8 cm/sec Ao V2 VTI: LV V1 VTI: 40.7 cm 17.7 cm RAE(I,D): 1.5 cm2 RAE(V,D): 1.3 cm2 SV(LVOT): 60.9 ml PA V2 max: TR max mia: 61.4 cm/sec 268.2 cm/sec PA max P.5 mmHg TR max P.8 mmHg Left Ventricle The left ventricle is normal in size. There is normal left ventricular wall thickness. LV EF is 35%. Left ventricular systolic function is moderate to severely reduced. Doppler measurements suggest normal left ventricular diastolic function. There is moderate to severe global hypokinesis of the left ventricle. There is no thrombus. Right Ventricle The right ventricle is grossly normal size. Atria The right atrium is normal. The left atrial size is normal. Mitral Valve There is no evidence of mitral valve prolapse. There is no vegetation seen on the mitral valve. There is no mitral valve stenosis. There is a mild amount of mitral regurgitation. Aortic Valve There is no aortic valvular vegetation. There is mild aortic stenosis. There is a peak gradient of 16 mm of Hg. There is no LVOT obstruction. No aortic regurgitation is present. Tricuspid Valve There is no tricuspid stenosis. There is a mild amount of tricuspid regurgitation. There is mild pulmonary hypertension by echo. rvsp IS 39 MM OF hG , WITH ra MEAN OF 10. Pulmonic Valve There is no pulmonic valvular stenosis. There is no pulmonic valvular regurgitation. Great Vessels The aortic root is not well visualized but is probably normal size. Effusions There is no pericardial effusion. : STEPHAN TAFOYA > Charlette Harding
--- NOTE | 2017-04-20 16:13 | PDOC PROGRESS REPORT ---
Subjective Progress Note for:: 04/20/17 Subjective:: Patient denied chest pain or difficulty with breathing. No fever or chills. No abdominal pain, nausea, or vomiting. Wound vac on left leg remain functional. Patient was seen by surgicalist for overview of her left leg wound. Reason For Visit: ACUTE ON CHRONIC SYSTOLIC CONGESTIVE HEART FAILURE Physical Exam Vital Signs: Temp Pulse Resp BP Pulse Ox 98.5 F 78 18 155/68 H 99 04/20/17 13:24 04/20/17 13:24 04/20/17 13:24 04/20/17 13:24 04/20/17 13:24 Intake & Output 04/19/17 04/20/17 04/21/17 06:59 06:59 06:59 Intake Total 340 1542 237 Output Total 250 Balance 340 1292 237 Weight 103.2 kg 106.7 kg Physical Exam: General appearance: PRESENT: no acute distress, morbidly obese Head exam: PRESENT: atraumatic, normocephalic Eye exam: PRESENT: conjunctiva pink, EOMI, PERRLA. ABSENT: scleral icterus Mouth exam: PRESENT: moist Teeth exam: PRESENT: poor dentation Respiratory exam: PRESENT: clear to auscultation jerrica, decreased breath sounds - at lung bases Cardiovascular exam: PRESENT: RRR. ABSENT: diastolic murmur, rubs, systolic murmur Vascular exam: PRESENT: normal capillary refill. ABSENT: pallor GI/Abdominal exam: PRESENT: normal bowel sounds, soft. ABSENT: distended, guarding, mass, organomegaly, rebound, tenderness Extremities exam: PRESENT: tenderness - to palpation of muscles. ABSENT: pedal edema Musculoskeletal exam: PRESENT: deformity - related to multiple joints involvement with arthritis Neurological exam: PRESENT: alert, awake, oriented to person, oriented to place , oriented to time, oriented to situation, CN II-XII grossly intact. ABSENT: motor sensory deficit Psychiatric exam: PRESENT: appropriate affect, normal mood. ABSENT: homicidal ideation, suicidal ideation Skin exam: PRESENT: dry, warm, other - wound on lateral aspect of left leg with wound vac application in-situ. Results Laboratory Results: 04/20/17 05:12 04/20/17 05:12 04/19/17 04/20/17 04/20/17 20:15 05:12 05:12 WBC 9.7 RBC 3.21 L Hgb 9.5 L Hct 29.2 L MCV 91 MCH 29.6 MCHC 32.5 RDW 15.8 H Plt Count 213 Seg Neutrophils % 53.2 Lymphocytes % 34.4 Monocytes % 8.1 Eosinophils % 3.4 Basophils % 0.9 Absolute Neutrophils 5.2 Absolute Lymphocytes 3.3 Absolute Monocytes 0.8 Absolute Eosinophils 0.3 Absolute Basophils 0.1 Sodium 141.8 Potassium 4.1 Chloride 105 Carbon Dioxide 28 Anion Gap 9 BUN 30 H Creatinine 0.94 Est GFR ( Amer) > 60 Est GFR (Non-Af Amer) > 60 Glucose 169 H Calcium 9.0 Total Bilirubin 0.4 AST 29 ALT 31 Alkaline Phosphatase 104 Total Protein 6.7 Albumin 3.1 L Urine Color YELLOW Urine Appearance SLIGHTLY-CLOUDY Urine pH 5.0 Ur Specific [place] 1.014 Urine Protein 100 H Urine Glucose (UA) NEGATIVE Urine Ketones NEGATIVE Urine Blood SMALL H Urine Nitrite NEGATIVE Ur Leukocyte Esterase NEGATIVE Urine WBC (Auto) 3 Urine RBC (Auto) 6 Impressions: Chest X-Ray 04/18/17 05:21 IMPRESSION: 1. Cardiomegaly with pulmonary vascular congestion and likely interstitial pulmonary edema. Assessment & Plan - Diagnosis (1) Acute on chronic systolic CHF (congestive heart failure) Is this a current diagnosis for this admission?: Yes (2) Respiratory distress Is this a current diagnosis for this admission?: Yes (3) Type 2 diabetes mellitus Qualifiers: Diabetes mellitus complication status: with unspecified complications Diabetes mellitus detention insulin use: with detention use Qualified Code(s) : E11.8 - Type 2 diabetes mellitus with unspecified complications; Z79.4 - manager terminal (current) use of insulin; Z79.4 - residential (current) use of insulin; Z79.4 - manager terminal (current) use of insulin; Z79.4 - manager terminal (current) use of insulin Is this a current diagnosis for this admission?: Yes (4) CAD (coronary artery disease) Qualifiers: Coronary Disease-Associated Artery/Lesion type: unspecified vessel or lesion type [place] vs. transplanted heart: [place] heart Associated angina: without angina Qualified Code(s): I25.10 - Atherosclerotic heart disease of [place] coronary artery without angina pectoris Is this a current diagnosis for this admission?: Yes (5) S/P CABG (coronary artery bypass graft) Is this a current diagnosis for this admission?: Yes (6) HLD (hyperlipidemia) Qualifiers: Hyperlipidemia type: pure hypercholesterolemia Qualified Code(s): E78.00 - Pure hypercholesterolemia, unspecified Is this a current diagnosis for this admission?: Yes (7) HTN (hypertension) Qualifiers: Hypertension type: essential hypertension Qualified Code(s): I10 - Essential (primary) hypertension Is this a current diagnosis for this admission?: Yes (8) Hx of stroke without residual deficits Is this a current diagnosis for this admission?: Yes (9) PAD (peripheral artery disease) Is this a current diagnosis for this admission?: Yes (10) Chronic combined systolic and diastolic CHF (congestive heart failure) Is this a current diagnosis for this admission?: Yes - Time Time Spent with patient: 25-34 minutes Medications reviewed and adjusted accordingly: Yes Anticipated discharge: Home with Homehealth Within: Other - Inpatient Certification Based on my medical assessment, after consideration of the patient's comorbidities, presenting symptoms, or acuity I expect that the services needed warrant INPATIENT care.: Yes I certify that my determination is in accordance with my understanding of Medicare's requirements for reasonable and necessary INPATIENT services [42 CFR 412.3e].: Yes Medical Necessity: Need Close Monitoring Due to Risk of Patient Decompensation, Need For Continuous Telemetry Monitoring, Need for Pain Control, Risk of Complication if Not Cared For in Hospital 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 There is decline in her LVEF since her last assessment about 07/2016. I will request cardiology consultation for declining LVEF and possible need for further intervention.
--- NOTE | 2017-04-20 17:31 | PDOC CONSULTATION ---
Consultation Consult Date: 04/20/17 Consult reason:: wounds to left leg and left heel undergoing VAC therapy History of Present Illness Admission Date/PCP: 04/18/17 08:34 STEPHAN TAFOYA Patient complains of: pains left leg History of Present Illness: Pt claims she had a vascular procedure done at [facility] for ulcer of left heel in March. She is getting wound Vac to incisional wounds left medial knee and left heel. Past Medical History Cardiac Medical History: Reports: Congestive Heart Failure, Coronary Artery Disease, Myocardial Infarction, Hyperlipidema, Hypertension, Peripheral Vascular Disease Denies: Atrial Fibrillation, Pulmonary Embolism, Heart Murmur Pulmonary Medical History: Reports: Bronchitis Denies: Asthma, Chronic Obstructive Pulmonary Disease (COPD), Pneumonia, Respiratory Failure, Sleep Apnea, Tuberculosis Neurological Medical History: Denies: Seizures Endocrine Medical History: Reports: Diabetes Mellitus Type 1, Diabetes Mellitus Type 2 Denies: Hyperthyroidism, Hypothyroidism Renal/ Medical History: Denies: End Stage Renal Disease Malignancy Medical History: Denies: Breast Cancer, Cervical Cancer, Leukemia, Lung Cancer, Ovarian Cancer GI Medical History: Reports: Diverticulitis - diverticulosis Denies: Crohn's Disease, Gastroesophageal Reflux Disease, Hiatal Hernia Musculoskeltal Medical History: Denies: Arthritis, Fibromyalgia Psychiatric Medical History: Denies: Bipolar Disorder, Dementia, Depression, Post Traumatic Stress Disorder Hematology: Denies: Anemia, Hemophilia, Sickle Cell Disease Infectious Medical History: Denies: HIV Past Surgical History Past Surgical History: Reports: Coronary Artery Bypass Graft - July 31 2011, Tonsillectomy, Vascular Surgery Denies: Amputation, Appendectomy, Cardiac Catheterization, Section, Cholecystectomy, Colostomy, Gastric Bypass Surgery, Herniorrhaphy, Hysterectomy , Mastectomy, Pacemaker, Tubal Ligation Social History Lives with: Family Smoking Status: Former Smoker Number of Years Smokin Last Time Smoked: October 2016 Frequency of Alcohol Use: None Hx Recreational Drug Use: No Drugs: None Hx Prescription Drug Abuse: No - Advance Directive Resuscitation Status: Full Code Family History Family History: Reviewed & Not Pertinent, CAD, Hyperlipidemia, Hypertension Parental Family History Reviewed: Yes Children Family History Reviewed: No Sibling(s) Family History Reviewed.: No Medication/Allergy Home Medications: Aspirin [Aspirin EC] 81 mg PO DAILY 04/18/17 Atorvastatin Calcium [Lipitor 40 mg Tablet] 40 mg PO QHS 04/18/17 Clopidogrel Bisulfate [Plavix 75 mg Tablet] 75 mg PO DAILY 04/18/17 Collagenase Clostridium Hist. [Santyl Ointment 30 gm] 1 applic TP MOWEFR@2200 Gabapentin [Neurontin 300 mg Capsule] 300 mg PO Q6 04/18/17 Insulin Glargine,Hum.rec.anlog [Lantus Solostar] 30 unit SQ QHS 04/18/17 Insulin Lispro [Humalog Insulin 100 Unit/1 ml 3 ml Vial] 5 unit SUBCUT MEALS Lisinopril [Prinivil 40 mg Tablet] 40 mg PO DAILY 04/18/17 Metformin HCl [Glucophage] 850 mg PO BIDBS 04/18/17 Nitroglycerin [Nitro-Dur 10 mg (0.4MG/Hr) Transdermal Patch] 1 patch TD QAM Oxycodone HCl 15 mg PO Q6HP PRN 04/23/17 Carvedilol [Coreg 25 mg Tablet] 1 tab PO Q12 #60 tab 04/27/17 Furosemide [Lasix 40 mg Tablet] 40 mg PO QAM #30 tablet 05/01/17 Allergies/Adverse Reactions: pregabalin [From Lyrica] Allergy (Verified 08/11/16 10:39) Review of Systems Constitutional: PRESENT: weakness Eyes: PRESENT: other - no visual/hearing problems Cardiovascular: PRESENT: orthropnea Respiratory: PRESENT: dyspnea Gastrointestinal: PRESENT: other - no abdominal pains Genitourinary: PRESENT: other - no dysuria Musculoskeletal: PRESENT: muscle weakness Integumentary: PRESENT: other - 5x5 cm full thickness ulcer to left heel 15 cm linear wound left knee Physical Exam Vital Signs: Temp Pulse Resp BP Pulse Ox 98.5 F 71 20 144/69 H 98 04/20/17 15:41 04/20/17 15:41 04/20/17 15:41 04/20/17 15:41 04/20/17 15:41 Intake & Output 04/19/17 04/20/17 04/21/17 06:59 06:59 06:59 Intake Total 340 1542 237 Output Total 250 Balance 340 1292 237 Weight 103.2 kg 106.7 kg General appearance: PRESENT: no acute distress Head exam: PRESENT: atraumatic Eye exam: PRESENT: conjunctiva pink Ear exam: PRESENT: normal external ear exam Mouth exam: PRESENT: moist, tongue midline Neck exam: PRESENT: full ROM Respiratory exam: PRESENT: decreased breath sounds Cardiovascular exam: PRESENT: RRR Pulses: PRESENT: normal radial pulses Vascular exam: PRESENT: normal capillary refill GI/Abdominal exam: PRESENT: soft Rectal exam: PRESENT: deferred Extremities exam: PRESENT: tenderness - left knee wnd left heel wounds Musculoskeletal exam: PRESENT: full ROM Neurological exam: PRESENT: alert, oriented to person, oriented to place, oriented to time, oriented to situation Psychiatric exam: PRESENT: appropriate affect Skin exam: PRESENT: normal color, warm Results Laboratory Results: 04/20/17 05:12 04/20/17 05:12 04/19/17 04/20/17 04/20/17 20:15 05:12 05:12 WBC 9.7 RBC 3.21 L Hgb 9.5 L Hct 29.2 L MCV 91 MCH 29.6 MCHC 32.5 RDW 15.8 H Plt Count 213 Seg Neutrophils % 53.2 Lymphocytes % 34.4 Monocytes % 8.1 Eosinophils % 3.4 Basophils % 0.9 Absolute Neutrophils 5.2 Absolute Lymphocytes 3.3 Absolute Monocytes 0.8 Absolute Eosinophils 0.3 Absolute Basophils 0.1 Sodium 141.8 Potassium 4.1 Chloride 105 Carbon Dioxide 28 Anion Gap 9 BUN 30 H Creatinine 0.94 Est GFR ( Amer) > 60 Est GFR (Non-Af Amer) > 60 Glucose 169 H Calcium 9.0 Total Bilirubin 0.4 AST 29 ALT 31 Alkaline Phosphatase 104 Total Protein 6.7 Albumin 3.1 L Urine Color YELLOW Urine Appearance SLIGHTLY-CLOUDY Urine pH 5.0 Ur Specific [place] 1.014 Urine Protein 100 H Urine Glucose (UA) NEGATIVE Urine Ketones NEGATIVE Urine Blood SMALL H Urine Nitrite NEGATIVE Ur Leukocyte Esterase NEGATIVE Urine WBC (Auto) 3 Urine RBC (Auto) 6 Impressions: Chest X-Ray 04/18/17 05:21 IMPRESSION: 1. Cardiomegaly with pulmonary vascular congestion and likely interstitial pulmonary edema. Assessment & Plan - Diagnosis (1) Open wound of left knee without complication Qualifiers: Encounter type: subsequent encounter Qualified Code(s): S81.002D - Unspecified open wound, left knee, subsequent encounter (2) Ulcer of left heel Qualifiers: Non-pressure ulcer stage: unspecified non-pressure ulcer stage Qualified Code(s): L97.429 - Non-pressure chronic ulcer of left heel and midfoot with unspecified severity - Time Time Spent: 30 to 50 Minutes - Plan Summary Plan Summary: Continue wound vac to left knee and left heel Follow up as needed.
[2017-04-20] MEDS: HYDROMORPHONE HCL 2 MG TABLET PO PRN ×2 (18:40→23:34)
[2017-04-20] MEDS: ATORVASTATIN CALCIUM 40 MG TABLET PO SCH (21:31)
[2017-04-20] MEDS: INSULIN GLARGINE,HUM.REC.ANLOG 300 UNIT/3 ML INSULN.PEN SUBCUT SCH (21:31)
[2017-04-20] MEDS: COLLAGENASE CLOSTRIDIUM HIST. OINT 30 GM TP SCH (21:38)
[2017-04-21] MEDS: HYDROMORPHONE HCL 2 MG TABLET PO PRN ×2 (05:02→21:41)
[2017-04-21] MEDS: GABAPENTIN 300 MG CAPSULE PO SCH ×4 (05:02→23:29)
--- NOTE | 2017-04-21 09:20 | PDOC PROGRESS REPORT ---
Subjective Progress Note for:: 04/21/17 Subjective:: pt is currently doing fair Denied any chest pain denied any shortness of the breath Echocardiogram showed reduce LVEF and Dr. Mofeftt consult Dr. Mayer Also for chronic wound and the wound VAC seen by the general surgery Reason For Visit: ACUTE ON CHRONIC SYSTOLIC CONGESTIVE HEART FAILURE Physical Exam Vital Signs: Temp Pulse Resp BP Pulse Ox 97.4 F 72 18 145/72 H 100 04/21/17 07:17 04/21/17 07:17 04/21/17 07:17 04/21/17 07:17 04/21/17 07:17 Intake & Output 04/20/17 04/21/17 04/22/17 06:59 06:59 06:59 Intake Total 1542 1091 Output Total 250 Balance 1292 1091 Weight 106.7 kg 106 kg General appearance: PRESENT: no acute distress Eye exam: PRESENT: PERRLA Mouth exam: PRESENT: neck supple Neck exam: ABSENT: carotid bruit, full ROM, JVD, lymphadenopathy, meningismus, tenderness, thyromegaly, tracheal deviation, tracheostomy, other Respiratory exam: PRESENT: clear to auscultation jerrica Cardiovascular exam: PRESENT: +S1, +S2 GI/Abdominal exam: PRESENT: normal bowel sounds, soft. ABSENT: tenderness Extremities exam: PRESENT: pedal edema Additional comments: In the left lower extremity the wound VAC is present Neurological exam: PRESENT: alert, awake, oriented to person Psychiatric exam: PRESENT: anxious Skin exam: PRESENT: dry Results Laboratory Results: 04/20/17 05:12 04/20/17 05:12 Impressions: Chest X-Ray 04/18/17 05:21 IMPRESSION: 1. Cardiomegaly with pulmonary vascular congestion and likely interstitial pulmonary edema. Assessment & Plan - Diagnosis (1) Acute on chronic systolic CHF (congestive heart failure) Is this a current diagnosis for this admission?: Yes Plan: Continues IV Lasix (2) Open wound of left knee without complication Qualifiers: Encounter type: subsequent encounter Qualified Code(s): S81.002D - Unspecified open wound, left knee, subsequent encounter Is this a current diagnosis for this admission?: Yes Plan: Continues to follow with the general surgery (3) Acute renal failure Qualifiers: Acute renal failure type: unspecified Qualified Code(s): N17.9 - Acute kidney failure, unspecified Is this a current diagnosis for this admission?: Yes Plan: Check a Chem-7 (4) Anemia of chronic disease Is this a current diagnosis for this admission?: Yes Plan: Really all stable (5) 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 Qualifiers: Diabetes mellitus terminal carman insulin use: unspecified terminal carman insulin use status Qualified Code(s): E11.621 - Type 2 diabetes mellitus with foot ulcer Is this a current diagnosis for this admission?: Yes (6) CAD (coronary artery disease) Qualifiers: Coronary Disease-Associated Artery/Lesion type: unspecified vessel or lesion type [place] vs. transplanted heart: [place] heart Associated angina: without angina Qualified Code(s): I25.10 - Atherosclerotic heart disease of [place] coronary artery without angina pectoris Is this a current diagnosis for this admission?: Yes (7) HTN (hypertension) Qualifiers: Hypertension type: essential hypertension Qualified Code(s): I10 - Essential (primary) hypertension Is this a current diagnosis for this admission?: Yes (8) PAD (peripheral artery disease) Is this a current diagnosis for this admission?: Yes - Time Time Spent with patient: 15-24 minutes Medications reviewed and adjusted accordingly: Yes Anticipated discharge: Other Within: Other - Inpatient Certification Medical Necessity: Need Close Monitoring Due to Risk of Patient Decompensation, Need for IV Antibiotics Post Hospital Care: 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
[2017-04-21] MEDS: FUROSEMIDE INJ/PF 40 MG/4 ML SDV IV SCH (09:25)
[2017-04-21] MEDS: METFORMIN HCL 850 MG TABLET PO SCH ×2 (09:26→17:35)
[2017-04-21] MEDS: NITROGLYCERIN 10 MG (0.4 MG/HR) PATCH.TD24 TD SCH (09:26)
[2017-04-21] MEDS: INSULIN LISPRO 100 UNIT/ML 3 ML VIAL SUBCUT SCH ×3 (09:26→17:35)
[2017-04-21] MEDS: ASPIRIN 81 MG TABLET, ENT COATED PO SCH (09:28)
[2017-04-21] MEDS: CLOPIDOGREL BISULFATE 75 MG TABLET PO SCH (09:29)
[2017-04-21] MEDS: LISINOPRIL 10 MG TABLET PO SCH (09:29)
[2017-04-21] MEDS: CARVEDILOL 6.25 MG TABLET PO SCH ×2 (09:29→21:40)
[2017-04-21] MEDS: INSULIN GLARGINE,HUM.REC.ANLOG 300 UNIT/3 ML INSULN.PEN SUBCUT SCH (21:40)
[2017-04-21] MEDS: INSULIN LISPRO 100 UNIT/ML 3 ML VIAL SUBCUT PRN (21:40)
[2017-04-21] MEDS: ATORVASTATIN CALCIUM 40 MG TABLET PO SCH (21:40)
[2017-04-22] MEDS ORDERED: CARVEDILOL 6.25 MG TABLET PO ONE (00:15)
--- NOTE | 2017-04-22 02:38 | CONSULTATION REPORT E ---
Consultation Report NAME: JAVIER BURGER : 1955 AGE: 61Y DATE: 04/21/2017 ROOM: 330 A TO: RICHIE LARIOS M.D. FROM: STEPHAN TAFOYA M.D. Requesting Physician REASON FOR CONSULTATION: Patient with congestive heart failure symptoms and cardiomyopathy. HISTORY OF PRESENT ILLNESS: The patient is a 61-year-old female well known to me with a history of coronary artery disease, history of peripheral artery disease, hypertension, and diabetes mellitus, who since 3-4 days prior to admission has been having dyspnea on exertion. Denies shortness of breath. Surprisingly, she denies any leg edema or orthopnea but does have PND. She says there is no increased intake in salt or water. She denies any chest pain or discomfort. There are no palpitations. She has recently had a left lower extremity revascularization done to help heal her ulcer in the left heel, which was infected and was treated with antibiotics. At present the patient is on a wound VAC. The patient has a past history of CVA with no recurrence. PAST MEDICAL HISTORY: Positive for: 1. Hypertension. 2. History of diabetes mellitus type 2. 3. She has a history of coronary artery disease. History of status post coronary artery bypass graft surgery in 2011. No anginal symptoms. 4. Past history of heart failure in the past, most likely secondary to volume overload due to renal failure in admission of 10/19/2015, but the renal function has reverted to normal. She also has probably a diastolic heart failure component. The patient in 2016 had an echocardiogram which showed an ejection fraction of 50-59%. At present left ventricular ejection fraction is 35%. 5. She has a history of peripheral arterial disease. She recently underwent a revascularization procedure on the left lower extremity artery to help heal a left heel ulcer. 6. She has a history of chronic diverticulosis. 7. She has a history of osteoarthritis. 8. History of diabetic neuropathy. 9. She has a history of CVA in the past, from which she has fully recovered with no recurrence. PAST SURGICAL HISTORY: Positive for: 1. Tonsillectomy. 2. Coronary artery bypass graft surgery. 3. Revascularization surgery of the lower extremity, the details of which are not available. FAMILY HISTORY: Positive for hypertension. Negative for coronary artery disease. SOCIAL HISTORY: The patient stopped smoking about 8-10 months ago. ADVANCED DIRECTIVE: THE PATIENT IS A FULL CODE. Her son is her surrogate healthcare decision maker. ALLERGIES: SHE IS ALLERGIC TO LYRICA. MEDICATIONS: Include: 1. Aspirin 81 mg p.o. daily. 2. Atorvastatin 40 mg p.o. daily. 3. Coreg 12.5 mg p.o. q. 12 hours. 4. Plavix 75 mg p.o. daily. 5. Collagenous clostridium, 1 application topically Sunday, Sunday, Sunday. 6. Hypoglycemic precautions with glucose 40% gel, 15 grams and 30 grams p.o. p.r.n. and dextrose 50%, 12.5 grams and 25 grams IV p.r.n. hypoglycemia. 7. Glucagon 1 mg intramuscularly p.r.n. hypoglycemia. 8. Lasix 40 mg p.o. daily intravenous. 9. Gabapentin (Neurontin) 300 mg p.o. q. 6 hours. 10. Lantus insulin 30 units subcutaneously at bedtime. 11. She is on Accu-Chek's a.c. t.i.d. and at bedtime with sliding-scale insulin coverage. 12. Lisinopril 40 mg p.o. daily. 13. Metformin hydrochloride 850 mg p.o. b.i.d. *------* 14. Nitroglycerin and Nitro-Dur, 1 each transdermally q.a.m. REVIEW OF SYSTEMS: CONSTITUTIONAL: Denies any fevers, chills, or rigors. Complains of generalized fatigue and weakness. HEAD: Denies headaches or head injury. No history of migraines. EYES: No history of amblyopia or diplopia. No history of amaurosis fugax. EARS: No history of hearing loss. No tinnitus. No history of recurrent ear infections. NOSE: No history of nosebleeds. No history of nasal polyps. No history of hayfever. MOUTH: No history of altered taste sensation. No ulcers in the mouth. No bleeding from gums. THROAT: No history of odynophagia or dysphagia. No history of recurrent sore throats. SKIN: There are no skin rashes or petechiae. There are no skin lesions. She has a skin incision which is clean and is dressed on the median side of the left lower extremity from the thigh to the ankle, and there is wound VAC present. There is no pruritus. No yellowish discoloration of the skin. There is no skin cancer. There is no psoriasis. NECK: No painful or painless swelling in the neck. No lymphadenopathy. No goiter. LUNGS: No history of asthma or COPD. No history of wheezing. No symptoms of sleep apnea, and no history of sleep apnea. No history of pulmonary embolism. No history of pleuritic chest pain. The patient has been having some cough which is productive of scanty white sputum. There is no pleuritic chest pain. CARDIAC: History of hypertension present. Now the patient's LV ejection fraction is worsened to 35%. She has a past history of coronary artery disease. History of coronary artery bypass graft surgery. No recent anginal symptoms. No history of arrhythmias. The patient has dyspnea on exertion with shortness of breath with PND but no orthopnea. There is no history of syncope. There is no pedal edema. The patient denies any palpitations. ENDOCRINE: History of diabetes mellitus type 2, insulin dependent. No history of thyroid disease. No history of polydipsia or polyuria. No history of heart or cold intolerance. RENAL: Past history of renal failure, but her renal function has fully recovered. No symptoms of UTI. No history of hematuria, pyuria, or dysuria. MUSCULOSKELETAL: History of osteoarthritis present. GASTROINTESTINAL: History of GERD present. History of chronic diverticulosis present. No history of GI bleed. No history of fatty food intolerance. No history of altered bowel movements. No history of jaundice. No history of cirrhosis. No history of GI bleed. ENDOCRINE: No history of diabetes mellitus. No history of thyroid disease. No history of polydipsia or polyuria. No history of heat or cold intolerance. CENTRAL NERVOUS SYSTEM: Past history of CVA, from which she has fully recovered. There is no history of headaches, migraines, or seizures. PSYCHIATRIC: No history of anxiety or depression. No history of suicidal ideation. No history of homicidal ideation. VASCULAR: History of left lower extremity claudication present, but the patient does not walk much. She has an infected ulcer of the left heel, for which the infection has been cured, and the patient has had revascularization. HEMATOLOGIC: No history of bleeding diathesis. No history of clotting disorders. PHYSICAL EXAMINATION: GENERAL: On examination, the patient is morbidly obese, at present in no acute distress. VITAL SIGNS: She is afebrile with temperature 97.4 degrees Fahrenheit. Pulse is 72 beats per minute. Blood pressure 145/72. Respirations are 18 per minute. O2 sat is 100% on room air. HEAD: Atraumatic, normocephalic. EYES: Pupils are equal, round, and regular, reactive to light and accommodation. Extraocular movements are normal. There is no conjunctival pallor. There is no scleral icterus. EARS: Tympanic membranes are intact. External auditory canals are clear. NOSE: There is no deviated nasal septum. There is no inflammation of the nasal mucous membrane. MOUTH: Mucous membranes of the mouth are moist. Tongue is moist. There are no ulcers. There is no bleeding from the gums. THROAT: There is no redness of the oropharynx. There are no exudates. SKIN: There are no skin rashes. There are no petechiae or ecchymoses. There are no skin lesions. There is an incision of vascular surgery from the thigh to the level of the ankle on the left side which has been dressed, and there is a wound VAC present. She has an ulcer in the left heel. NECK: Supple. There is no JVD. Carotids are equal. There is no bruit. There is no goiter. Trachea is central. LUNGS: There are a few bibasilar rales of CHF present. There is no rhonchi or wheezing. HEART: S1 and S2 are heard normally. There is no S3 gallop. There is no S4 gallop. There is a systolic murmur in the left sternal border and the apex. There is no rub. ABDOMEN: Soft, obese, nontender. There is no hepatosplenomegaly. Bowel sounds are well heard. There are no tender areas or masses. EXTREMITIES: Femorals are very much diminished. There are no femoral bruits. Leg pulses are diminished. There is no pedal edema. There is no DVT or cellulitis. Incision covered with tape on the left lower extremity from the thigh to the ankle, as mentioned earlier due to recent vascular surgery. There is no cyanosis or clubbing. Capillary refill appears to be normal at present. CENTRAL NERVOUS SYSTEM: The patient is conscious, awake, alert, oriented x3, with no focal deficits. PSYCHIATRIC: The patient's judgement and insight are intact. Her affect is normal. DIAGNOSTIC STUDIES: The patient's intake and output is not accurate. The patient's chest x-ray shows cardiomegaly and congestive heart failure. The patient's EKG shows sinus rhythm, probable left atrial abnormality, LVH with secondary repolarization changes. The patient's echocardiogram done on 04/20/2017 shows left ventricle is normal in size. There is moderate to severe global hypokinesis with an ejection fraction of 35%, which is moderately to severely reduced. Doppler measurements suggest normal left ventricular diastolic function. There is a mild amount of mitral regurgitation. There is mild aortic stenosis, peak gradient of 16 mmHg. There is no aortic regurgitation. There is a mild amount of tricuspid regurgitation. Right ventricular systolic pressure is 39 mmHg with an RA mean of 10. There is no pericardial effusion. The patient's sodium is 143.8, potassium is 3.5 on admission, chloride 106, CO2 is 27. The patient's BUN is 12, creatinine 0.73, GFR is greater than 60. Glucose is 282. Liver function tests are normal, except for a slightly increased alk phos of 142. The patient's total protein is 7.7, albumin is 3.7. The patient's blood sugar is 141. Yesterday the patient's sodium was 141.8, potassium was normal at 4.1, chloride was 105, CO2 was 28. The patient's BUN was 30, creatinine 0.94, GFR was greater than 60, glucose was 169, calcium was 9.0, total bilirubin was 0.4, and liver function tests were normal. The patient's albumin was 3.1, total protein 6.7. The patient's NT-ProBNP is 2817. A troponin-I on the was 0.019 with a negative CPK-MB. The patient's hemoglobin is 9.5, hematocrit is 29.2, and the platelet count is 213,000. IMPRESSION: 1. Congestive heart failure, most likely acute on chronic systolic left ventricular heart failure. Would recommend seeing if we can increase the patient's Coreg to 25 mg p.o. q. 12 hours, and also increase the patient's lisinopril. Continue the patient on Lasix, but would increase the patient's Lasix to 40 mg IV q. 12 hours. 2. Cardiomyopathy with moderately to severely reduced LV ejection fraction. 3. Coronary artery disease. History of coronary artery bypass graft surgery in 2011. No history of [place]. No anginal symptoms. Will get records. 4. Peripheral artery disease. 5. Left heel ulcer, being treated with antibiotics. 6. Hypertension. 7. Diabetes mellitus. 8. Status post left lower extremity revascularization surgery recently. 9. Hyperlipidemia. 10. History of diverticulosis. 11. Osteoarthritis. 12. Moderate obesity. RECOMMENDATION: As mentioned earlier, would increase the patient's Lasix to 40 mg IV q. 12 hours, increase the patient's Coreg and the patient's BARRIE inhibitor. Later, once the acute heart failure is stabilized, would recommend the patient had an IV Lexiscan Cardiolite stress test. The echo findings were discussed with the patient. Note that the patient was seen at 8:00 a.m., and a total of 45 minutes were spent on this patient, with more than 50% of the time spent on direct patient care. Her medications have been reviewed and adjusted. Discussed with other caregiving providers and formulated a management plan for this patient. Note, medical decision making is of high complexity. Will follow with you. DICTATING PHYSICIAN: RICHIE LARIOS M.D. [id number] PHY#: [id number] ID: [id number] JOB#: [id number] ACCT: [id number] cc:RICHIE LARIOS M.D. >
[2017-04-22] MEDS: GABAPENTIN 300 MG CAPSULE PO SCH ×4 (06:15→23:04)
[2017-04-22 06:32] LABS: ABSOLUTE EOSINOPHILS # (AUTO) 0.4 10^3/uL (0.0-0.6); ABSOLUTE LYMPHOCYTES (AUTO) 3.2 10^3/uL (0.5-4.7); ABSOLUTE MONOCYTES (AUTO) 0.7 10^3/uL (0.1-1.4); ABSOLUTE NEUT (AUTO) 4.6 10^3/uL (1.7-8.2); BASOPHILS % (AUTO) 0.3 % (0-2); EOSINOPHILS % (AUTO) 4.1 % (0-6); HEMATOCRIT 28.6 % (36.0-47.0); HEMOGLOBIN 9.4 g/dL (12.0-15.5); HGB HCT DIFFERENCE -0.4; LYMPHOCYTES % (AUTO) 35.6 % (13-45); MEAN CORPUSCULAR HGB CONC 32.8 g/dL (32.0-36.0); MEAN CORPUSCULAR VOLUME 92 fl (80-97); MONOCYTES % (AUTO) 8.1 % (3-13); RED BLOOD COUNT 3.12 10^6/uL (3.72-5.28); RED CELL DISTRIBUTION WIDTH 16.3 % (11.5-14.0); SEGMENTED NEUTROPHILS % (AUTO) 51.9 % (42-78); WHITE BLOOD COUNT 8.9 10^3/uL (4.0-10.5)
[2017-04-22 06:57] LABS: ANION GAP 8 (5-19); BLOOD UREA NITROGEN 22 mg/dL (7-20); CALCIUM 8.8 mg/dL (8.4-10.2); CARBON DIOXIDE 31 mmol/L (22-30); CHLORIDE 104 mmol/L (98-107); GLUCOSE 127 mg/dL (75-110); SODIUM 143.3 mmol/L (137-145)
[2017-04-22] MEDS: METFORMIN HCL 850 MG TABLET PO SCH ×2 (08:42→18:06)
[2017-04-22] MEDS: INSULIN LISPRO 100 UNIT/ML 3 ML VIAL SUBCUT SCH ×3 (08:42→18:07)
[2017-04-22] MEDS: NITROGLYCERIN 10 MG (0.4 MG/HR) PATCH.TD24 TD SCH (08:42)
[2017-04-22] MEDS ORDERED: LISINOPRIL 10 MG TABLET PO SCH (10:00)
[2017-04-22] MEDS ORDERED: CARVEDILOL 6.25 MG TABLET PO SCH (10:00)
--- NOTE | 2017-04-22 10:46 | PDOC PROGRESS REPORT ---
Subjective Progress Note for:: 04/22/17 Subjective:: She is currently doing fair Since seen by the cardiology and increase the IV Lasix pt denied any chest pain denied any shortness of the breath Reason For Visit: ACUTE ON CHRONIC SYSTOLIC CONGESTIVE HEART FAILURE Physical Exam Vital Signs: Temp Pulse Resp BP Pulse Ox 97.9 F 69 16 130/58 H 94 04/22/17 07:53 04/22/17 07:53 04/22/17 07:53 04/22/17 07:53 04/22/17 07:53 Intake & Output 04/21/17 04/22/17 04/23/17 06:59 06:59 06:59 Intake Total 1091 1312 Output Total 200 Balance 1091 1112 Weight 106 kg General appearance: PRESENT: no acute distress Eye exam: PRESENT: PERRLA Mouth exam: PRESENT: neck supple Neck exam: ABSENT: carotid bruit, full ROM, JVD, lymphadenopathy, meningismus, tenderness, thyromegaly, tracheal deviation, tracheostomy, other Respiratory exam: PRESENT: clear to auscultation jerrica Cardiovascular exam: PRESENT: +S1, +S2 GI/Abdominal exam: PRESENT: normal bowel sounds, soft Additional comments: On the left lower extremity the wound VAC is present but the wound smell more I believe the surgery need to reevaluate Neurological exam: PRESENT: alert, awake, oriented to person, oriented to place Skin exam: PRESENT: dry Results Laboratory Results: 04/22/17 05:47 04/22/17 05:47 04/22/17 04/22/17 05:47 05:47 WBC 8.9 RBC 3.12 L Hgb 9.4 L Hct 28.6 L MCV 92 MCH 30.0 MCHC 32.8 RDW 16.3 H Plt Count 215 Seg Neutrophils % 51.9 Lymphocytes % 35.6 Monocytes % 8.1 Eosinophils % 4.1 Basophils % 0.3 Absolute Neutrophils 4.6 Absolute Lymphocytes 3.2 Absolute Monocytes 0.7 Absolute Eosinophils 0.4 Absolute Basophils 0.0 Sodium 143.3 Potassium 4.0 Chloride 104 Carbon Dioxide 31 H Anion Gap 8 BUN 22 H Creatinine 0.80 Est GFR ( Amer) > 60 Est GFR (Non-Af Amer) > 60 Glucose 127 H Calcium 8.8 Impressions: Chest X-Ray 04/18/17 05:21 IMPRESSION: 1. Cardiomegaly with pulmonary vascular congestion and likely interstitial pulmonary edema. Assessment & Plan - Diagnosis (1) Acute on chronic systolic CHF (congestive heart failure) Is this a current diagnosis for this admission?: Yes Plan: Continue IV Lasix (2) Open wound of left knee without complication Qualifiers: Encounter type: subsequent encounter Qualified Code(s): S81.002D - Unspecified open wound, left knee, subsequent encounter Is this a current diagnosis for this admission?: Yes Plan: The nursing stumps to consult with the surgery about the wound (3) Acute renal failure Qualifiers: Acute renal failure type: unspecified Qualified Code(s): N17.9 - Acute kidney failure, unspecified Is this a current diagnosis for this admission?: Yes Plan: Check a Chem-7 (4) Anemia of chronic disease Is this a current diagnosis for this admission?: Yes Plan: Really all stable (5) 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 Qualifiers: 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 transplanted heart: [place] heart Associated angina: without angina Qualified Code(s): I25.10 - Atherosclerotic heart disease of [place] coronary artery without angina pectoris Is this a current diagnosis for this admission?: Yes (7) HTN (hypertension) Qualifiers: Hypertension type: essential hypertension Qualified Code(s): I10 - Essential (primary) hypertension Is this a current diagnosis for this admission?: Yes (8) PAD (peripheral artery disease) Is this a current diagnosis for this admission?: Yes - Time Time Spent with patient: 15-24 minutes Medications reviewed and adjusted accordingly: Yes Anticipated discharge: Other Within: Other - Inpatient Certification Medical Necessity: Need Close Monitoring Due to Risk of Patient Decompensation Post Hospital Care: D/C Heel Splitter Documentation - Plan Summary Plan Summary: Continues to current medication
[2017-04-22] MEDS: ASPIRIN 81 MG TABLET, ENT COATED PO SCH (11:44)
[2017-04-22] MEDS: FUROSEMIDE INJ/PF 40 MG/4 ML SDV IV SCH ×2 (11:45→22:46)
[2017-04-22] MEDS: CLOPIDOGREL BISULFATE 75 MG TABLET PO SCH (11:45)
--- NOTE | 2017-04-22 16:03 | PROGRESS NOTE E ---
Progress Note NAME: JAVIER BURGER : 1955 AGE: 61Y DATE: 04/22/2017 ROOM: 330 SUBJECTIVE: The patient denies any chest pain or discomfort. There is no PND, orthopnea. Her shortness of breath has much improved. She has no arrhythmia seen on the monitor. The wound VAC is draining from the left leg heel ulcer. There are no TIA or CVA symptoms. There is no pedal edema. There is no dizziness, syncope, or near syncope. The patient denies any palpitation. OBJECTIVE: GENERAL: On examination the patient is morbidly obese, in no acute distress. VITAL SIGNS: She is afebrile with a temperature of 97.9 degrees Fahrenheit, pulse is 69 beats per minute, blood pressure is 130/58, respirations are 16 per minute, O2 saturations are 94% on room air. HEENT: Head is atraumatic, normocephalic. Eyes: Pupils are equal, round and regular, reactive to light and accommodation. Extraocular movements are normal. There is no conjunctival pallor. There is no scleral icterus. ENT is negative. NECK: Supple. There is no JVD. There is no lymphadenopathy. There is no goiter. Carotids are equal. There is no bruit. Trachea is central. LUNGS: Clear to auscultation and percussion without any rhonchi, rales, or wheezing. HEART: S1 and S2 is heard normally. There is no S3 gallop. There is no S4 gallop. There is a systolic murmur in the left sternal border and the apex. There is no rub. ABDOMEN: Soft, obese, nontender. There is no hepatosplenomegaly. Bowel sounds are well heard. There are no tender areas or masses. EXTREMITIES: Femorals are very much diminished. There are no femoral bruits. Leg pulses are diminished. There is no pedal edema. There is no DVT or cellulitis. Incision covered with tape on the left lower extremity from the thigh to the ankle, as mentioned earlier due to recent vascular surgery. There is no cyanosis or clubbing. Capillary refill appears to be normal at present. There is a dressing in the left heel for the ulcer. CENTRAL NERVOUS SYSTEM: The patient is conscious, awake, alert and oriented x3 with no focal deficits. PSYCHIATRIC: The patient's judgment and insight are intact. Her affect is normal. INTAKE/OUTPUT: Note that the patient's intake and output is not accurate. LABORATORY DATA: The patient's sodium is 143.3, potassium 4.0, chloride 104, CO2 is 31. The patient's BUN is 22, creatinine 0.8, GFR is greater than 60, glucose is 127, calcium is 8.8. The patient's white count is 8900, hemoglobin is 9.4, hematocrit is 28.6, and a platelet count is 215,000. IMPRESSION: 1. CONGESTIVE HEART FAILURE, MOST LIKELY ACUTE ON CHRONIC SYSTOLIC LEFT VENTRICULAR HEART FAILURE. At present seems to be compensated. Note Coreg has been increased to 25 mg p.o. q.12 hours. I did increase the patient's lisinopril to 40 mg p.o. q.12 hours. Continue Lasix intravenously at 40 mg IV q.12 hours. 2. CARDIOMYOPATHY WITH MODERATELY TO SEVERELY REDUCED LV EJECTION FRACTION. 3. CORONARY ARTERY DISEASE, HISTORY OF CORONARY ARTERY BYPASS GRAFT IN 2011. NO HISTORY OF [place], NO ANGINAL SYMPTOMS. 4. PERIPHERAL ARTERIAL DISEASE. 5. LEFT HEEL ULCER BEING TREATED WITH ANTIBIOTICS AND WE WILL SEE IMPROVEMENT IN THE ULCER AFTER REVASCULARIZATION OF THE LEFT LOWER EXTREMITY. 6. HYPERTENSION. Blood pressure well-controlled. 7. DIABETES MELLITUS. 8. STATUS POST LEFT LOWER EXTREMITY REVASCULARIZATION SURGERY RECENTLY. 9. HYPERLIPIDEMIA. 10. HISTORY OF DIVERTICULOSIS. 11. OSTEOARTHRITIS. 12. MODERATE OBESITY. RECOMMENDATION: Continue the patient on Coreg 25 mg p.o. q.12 hours. Continue antibiotic, Cipro, and continue Plavix. Continue Lasix 40 mg IV q.12 hours. Hypoglycemic precautions for diabetes. Continue metformin. Continue transdermal nitro patch 1 to chest wall q.a.m. Also would stop the patient's lisinopril for now and after 48 hours we will start the patient on Entresto, this has been discussed with the patient. TIME SPENT: Note 30 minutes spent on this patient with more than 50% of the time spent on direct patient care. Her medications have been reviewed and medications adjusted. Her lisinopril has been stopped and the patient after 48 hours will be started on Entresto. This has been discussed with the patient, discussed with the other caregiving providers on the case. We will follow with you. Medical decision making is of high complexity. DICTATING PHYSICIAN: RICHIE LARIOS M.D. [id number] PHY#: [id number] ID: [id number] JOB#: [id number] ACCT: [id number] cc: >
[2017-04-22] MEDS: INSULIN GLARGINE,HUM.REC.ANLOG 300 UNIT/3 ML INSULN.PEN SUBCUT SCH (22:46)
[2017-04-22] MEDS: CARVEDILOL 12.5 MG TABLET PO SCH (22:46)
[2017-04-22] MEDS: ATORVASTATIN CALCIUM 40 MG TABLET PO SCH (22:46)
[2017-04-22] MEDS: CIPROFLOXACIN HCL 500 MG TABLET PO SCH (22:46)
[2017-04-22] MEDS: INSULIN LISPRO 100 UNIT/ML 3 ML VIAL SUBCUT PRN (23:02)
[2017-04-23] MEDS: GABAPENTIN 300 MG CAPSULE PO SCH ×4 (06:05→23:09)
[2017-04-23 08:20] LABS: ABSOLUTE EOSINOPHILS # (AUTO) 0.4 10^3/uL (0.0-0.6); ABSOLUTE LYMPHOCYTES (AUTO) 3.2 10^3/uL (0.5-4.7); ABSOLUTE MONOCYTES (AUTO) 0.8 10^3/uL (0.1-1.4); ABSOLUTE NEUT (AUTO) 4.8 10^3/uL (1.7-8.2); BASOPHILS % (AUTO) 0.4 % (0-2); EOSINOPHILS % (AUTO) 3.8 % (0-6); HEMATOCRIT 29.3 % (36.0-47.0); HEMOGLOBIN 9.6 g/dL (12.0-15.5); HGB HCT DIFFERENCE -0.5; LYMPHOCYTES % (AUTO) 34.6 % (13-45); MEAN CORPUSCULAR HEMOGLOBIN 29.8 pg (27.0-33.4); MEAN CORPUSCULAR HGB CONC 32.7 g/dL (32.0-36.0); MEAN CORPUSCULAR VOLUME 91 fl (80-97); MONOCYTES % (AUTO) 9.2 % (3-13); RED BLOOD COUNT 3.22 10^6/uL (3.72-5.28); WHITE BLOOD COUNT 9.2 10^3/uL (4.0-10.5)
[2017-04-23] MEDS: INSULIN LISPRO 100 UNIT/ML 3 ML VIAL SUBCUT SCH ×3 (08:40→18:06)
[2017-04-23] MEDS: NITROGLYCERIN 10 MG (0.4 MG/HR) PATCH.TD24 TD SCH (08:40)
[2017-04-23] MEDS: METFORMIN HCL 850 MG TABLET PO SCH ×2 (08:40→18:06)
[2017-04-23 08:46] LABS: ANION GAP 10 (5-19); BLOOD UREA NITROGEN 22 mg/dL (7-20); CARBON DIOXIDE 30 mmol/L (22-30); CHLORIDE 105 mmol/L (98-107); CREATININE RESULT 0.93 mg/dL (0.52-1.25); GLUCOSE 103 mg/dL (75-110); POTASSIUM 4.1 mmol/L (3.6-5.0); SODIUM 145.3 mmol/L (137-145)
--- NOTE | 2017-04-23 09:18 | PROGRESS NOTE E ---
Progress Note NAME: JAVIER BURGER : 1955 AGE: 61Y DATE: 04/23/2017 ROOM: 330 SUBJECTIVE: Patient on a chronic wound VAC for nonhealing wounds along the left knee and the left foot. Nurse explains there is a foul-smelling odor. The wound VAC was disconnected and then I removed the dressing. The wounds appeared to be healing fairly well. The upper wound, the incision is with fairly good granulation tissue. The heel itself is dry with no drainage, but there seems to be some foul-smelling odor around it. Because of this, I told the nurse to clean the skin edges with ChloraPrep prior to placement of wound VAC. DICTATING PHYSICIAN: DANNI PINK M.D. [id number] CARLI#: [id number] ID: [id number] JOB#: [id number] ACCT: [id number] cc: >
[2017-04-23] MEDS: HYDROMORPHONE HCL 2 MG TABLET PO PRN (09:55)
[2017-04-23] MEDS: CARVEDILOL 12.5 MG TABLET PO SCH ×2 (12:24→22:33)
[2017-04-23] MEDS: ASPIRIN 81 MG TABLET, ENT COATED PO SCH (12:24)
[2017-04-23] MEDS: CLOPIDOGREL BISULFATE 75 MG TABLET PO SCH (12:25)
[2017-04-23] MEDS: CIPROFLOXACIN HCL 500 MG TABLET PO SCH ×2 (12:25→22:33)
[2017-04-23] MEDS: FUROSEMIDE INJ/PF 40 MG/4 ML SDV IV SCH ×2 (12:25→22:33)
--- NOTE | 2017-04-23 18:56 | PDOC PROGRESS REPORT ---
Subjective Progress Note for:: 04/23/17 Subjective:: Patient is not too happy about dietary restriction on 2% milk. She reported feeling of pressure like someone sitting on my chest all day. She denied difficulty with breathing. No fever or chills. No abdominal pain, nausea, or vomiting. Wound vac on left leg remain functional. There is reported associated malodor around her left leg wound although granulating satisfactorily as per surgicalist evaluation. Reason For Visit: ACUTE ON CHRONIC SYSTOLIC CONGESTIVE HEART FAILURE Physical Exam Vital Signs: Temp Pulse Resp BP Pulse Ox 98.6 F 70 20 137/95 H 96 04/23/17 15:26 04/23/17 15:26 04/23/17 15:26 04/23/17 15:26 04/23/17 15:26 Intake & Output 04/22/17 04/23/17 04/24/17 06:59 06:59 06:59 Intake Total 1312 1073 711 Output Total 200 0 Balance 1112 1073 711 Physical Exam: General appearance: PRESENT: no acute distress, morbidly obese Head exam: PRESENT: atraumatic, normocephalic Eye exam: PRESENT: conjunctiva pink, EOMI, PERRLA. ABSENT: scleral icterus Mouth exam: PRESENT: moist Teeth exam: PRESENT: poor dentation Respiratory exam: PRESENT: clear to auscultation jerrica, decreased breath sounds - at lung bases Cardiovascular exam: PRESENT: RRR. ABSENT: diastolic murmur, rubs, systolic murmur Vascular exam: PRESENT: normal capillary refill. ABSENT: pallor GI/Abdominal exam: PRESENT: normal bowel sounds, soft. ABSENT: distended, guarding, mass, organomegaly, rebound, tenderness Extremities exam: PRESENT: tenderness - to palpation of muscles. ABSENT: pedal edema Musculoskeletal exam: PRESENT: deformity - related to multiple joints involvement with arthritis Neurological exam: PRESENT: alert, awake, oriented to person, oriented to place , oriented to time, oriented to situation, CN II-XII grossly intact. ABSENT: motor sensory deficit Psychiatric exam: PRESENT: appropriate affect, normal mood. ABSENT: homicidal ideation, suicidal ideation Skin exam: PRESENT: dry, warm, other - wound on lateral aspect of left leg with wound vac application in-situ. Results Laboratory Results: 04/23/17 07:37 04/23/17 07:37 04/23/17 04/23/17 07:37 07:37 WBC 9.2 RBC 3.22 L Hgb 9.6 L Hct 29.3 L MCV 91 MCH 29.8 MCHC 32.7 RDW 16.0 H Plt Count 248 Seg Neutrophils % 52.0 Lymphocytes % 34.6 Monocytes % 9.2 Eosinophils % 3.8 Basophils % 0.4 Absolute Neutrophils 4.8 Absolute Lymphocytes 3.2 Absolute Monocytes 0.8 Absolute Eosinophils 0.4 Absolute Basophils 0.0 Sodium 145.3 H Potassium 4.1 Chloride 105 Carbon Dioxide 30 Anion Gap 10 BUN 22 H Creatinine 0.93 Est GFR ( Amer) > 60 Est GFR (Non-Af Amer) > 60 Glucose 103 Calcium 9.0 Impressions: Chest X-Ray 04/18/17 05:21 IMPRESSION: 1. Cardiomegaly with pulmonary vascular congestion and likely interstitial pulmonary edema. 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 transplanted heart: [place] heart Associated angina: without angina Qualified Code(s): I25.10 - Atherosclerotic heart disease of [place] coronary artery without angina pectoris Is this a current diagnosis for this admission?: Yes (5) S/P CABG (coronary artery bypass graft) Is this a current diagnosis for this admission?: Yes (6) HLD (hyperlipidemia) Qualifiers: Hyperlipidemia type: pure hypercholesterolemia Qualified Code(s): E78.00 - Pure hypercholesterolemia, unspecified Is this a current diagnosis for this admission?: Yes (7) HTN (hypertension) Qualifiers: Hypertension type: essential hypertension Qualified Code(s): I10 - Essential (primary) hypertension Is this a current diagnosis for this admission?: Yes (8) Hx of stroke without residual deficits Is this a current diagnosis for this admission?: Yes (9) PAD (peripheral artery disease) Is this a current diagnosis for this admission?: Yes (10) Chronic combined systolic and diastolic CHF (congestive heart failure) Is this a current diagnosis for this admission?: Yes - Time Time Spent with patient: 25-34 minutes Medications reviewed and adjusted accordingly: Yes Anticipated discharge: Home with Homehealth Within: Other - Inpatient Certification Based on my medical assessment, after consideration of the patient's comorbidities, presenting symptoms, or acuity I expect that the services needed warrant INPATIENT care.: Yes I certify that my determination is in accordance with my understanding of Medicare's requirements for reasonable and necessary INPATIENT services [42 CFR 412.3e].: Yes Medical Necessity: Need Close Monitoring Due to Risk of Patient Decompensation, Need For IV Fluids, Need For Continuous Telemetry Monitoring, Need for IV Antibiotics, Risk of Complication if Not Cared For in Hospital Post Hospital Care: D/C Picker Tender Documentation - Plan Summary Plan Summary: See attending physician orders.
--- NOTE | 2017-04-23 20:13 | PROGRESS NOTE E ---
Progress Note NAME: JAVIER BURGER : 1955 AGE: 61Y DATE: 04/23/2017 ROOM: 330 SUBJECTIVE: The patient denies any shortness of breath, PND, orthopnea or leg edema. Wound is healing well, as per the surgeon, with granulation. The patient states that earlier, she had some chest pressure, like someone was sitting on her chest, but it was better when she sat up and it did not increase when she did some activity in the bed. There is no arrhythmia seen on the monitor. There are no TIA or CVA symptoms. She has been started on Entresto. OBJECTIVE: VITAL SIGNS: The patient is morbidly obese, in no acute distress. She is afebrile, with a temperature of 98.1 degrees Fahrenheit. Pulse is 72 beats per minute. Blood pressure 145/81, respirations 16 per minute. O2 sats are 97% on room air. HEAD: Atraumatic, normocephalic. EYES: Pupils equal, round, regular, reactive to light and accommodation. Extraocular movements are normal. There is no conjunctival pallor. There is no scleral icterus. ENT: Negative. NECK: Supple. There is no JVD. There is no lymphadenopathy. There is no goiter. Carotids are equal. There is no bruit. Trachea is central. LUNGS: Clear to auscultation and percussion without any rhonchi, rales or wheezing. HEART: S1, S2 are heard normally. There is no S3 gallop. There is no S4 gallop. There is a systolic murmur at the left sternal border at the apex. There is no rub. ABDOMEN: Soft, obese, nontender. There is no hepatosplenomegaly. Bowel sounds are well-heard. There are no tender areas or masses. EXTREMITIES: Femoral are very much diminished. There are no femoral bruits. Leg pulses diminished. There is no pedal edema. There is no DVT or cellulitis. There is an incision covered with tape on the left lower extremity, from thigh to the ankle, as mentioned earlier, due to recent vascular surgery. There is no cyanosis or clubbing. Capillary refill appears to be normal. There is a dressing on the left heel for the ulcer. CENTRAL NERVOUS SYSTEM: The patient is conscious, awake, alert, oriented x3, with no focal deficits. PSYCHIATRIC: The patient's judgment and insight are intact. Her affect is normal. The patient's sodium is 145.3, potassium 4.1, chloride 105, CO2 is 30. BUN is 22, creatinine is 0.93. GFR is greater than 60. Glucose is 103. Calcium is 9.0. The patient's white count is 9200, hemoglobin is 9.6, hematocrit is 29.3, and the patient's platelet count is 228,000. IMPRESSION: 1. Congestive heart failure, most likely acute on chronic systolic left ventricular heart failure, at present compensated. Note that the patient's Coreg has been increased to 25 mg p.o. q.12 hours, and also the patient's lisinopril has been discontinued, and the patient has been started on Entresto, which he is tolerating. 2. Cardiomyopathy with moderately to severely reduced LV ejection fraction. 3. Coronary artery disease, with history of coronary artery bypass graft surgery. No history of ME. The patient had some chest pressure, which sounds atypical, but patient will need a stress test. 4. Peripheral arterial disease. 5. Left heel ulcer, being treated with antibiotics. See improvement in the ulcer after revascularization of the left lower extremity. 6. Hypertension. Blood pressure well-controlled. 7. Diabetes mellitus. 8. Status post left lower extremity revascularization surgery, as per the surgeon. The left heel ulcer is healing with granulation. 9. Hyperlipidemia. 10. History of diverticulosis. 11. Osteoarthritis. 12. Moderate obesity. 13. Chest pressure in a patient with history of coronary artery bypass graft surgery for CAD; hence, later will probably get an IV Lexiscan Cardiolite stress test on the patient. PLAN: 1. Continue the patient on Coreg. 2. Continue the patient on Entresto. 3. Continue the patient's gabapentin, Lantus insulin, metformin and transderm nitro patch. Will later try to increase the patient's Entresto, after a week or so. 4. Continue the patient on atorvastatin. 5. Will recheck the patient's EKG and cardiac enzymes in the a.m. 6. The patient will be later on scheduled to have an IV Lexiscan Cardiolite stress test. Discussed this with the patient. Note, 30 minutes spent on this patient, with more than 50% of the time spent on direct patient care. Medications have been reviewed and adjusted. Also, EKG and Troponin I ordered for the morning. Medical decision-making is of high complexity. Recommend continuing the patient on current antibiotics. DICTATING PHYSICIAN: RICHIE LARIOS M.D. [id number] PHY#: [id number] ID: [id number] JOB#: [id number] ACCT: [id number] cc:RICHIE LARIOS M.D. >
[2017-04-23] MEDS: INSULIN GLARGINE,HUM.REC.ANLOG 300 UNIT/3 ML INSULN.PEN SUBCUT SCH (22:33)
[2017-04-23] MEDS: ATORVASTATIN CALCIUM 40 MG TABLET PO SCH (22:33)
[2017-04-23] MEDS: COLLAGENASE CLOSTRIDIUM HIST. OINT 30 GM TP SCH (22:40)
[2017-04-24] MEDS ORDERED: SACUBITRIL/VALSARTAN 24 MG/26 MG TABLET PO ONE
[2017-04-24] MEDS: OXYCODONE HCL IR 5 MG TABLET PO PRN ×4 (00:20→20:14)
[2017-04-24] MEDS: GABAPENTIN 300 MG CAPSULE PO SCH ×3 (05:07→18:00)
[2017-04-24 05:48] LABS: ANION GAP 9 (5-19); BLOOD UREA NITROGEN 24 mg/dL (7-20); CARBON DIOXIDE 31 mmol/L (22-30); CHLORIDE 103 mmol/L (98-107); CREATININE RESULT 1.07 mg/dL (0.52-1.25); GLUCOSE 147 mg/dL (75-110); SODIUM 142.9 mmol/L (137-145)
--- NOTE | 2017-04-24 08:04 | EKG REPORT ---
SEVERITY:- ABNORMAL ECG - SINUS RHYTHM LVH WITH SECONDARY REPOLARIZATION ABNORMALITY : Confirmed by: Yobany Marino MD 24-Apr-2017 08:03:51
--- NOTE | 2017-04-24 08:04 | EKG REPORT ---
SEVERITY:- ABNORMAL ECG - SINUS RHYTHM LEFT VENTRICULAR HYPERTROPHY : Confirmed by: Yobany Marino MD 24-Apr-2017 08:03:34
[2017-04-24] MEDS: METFORMIN HCL 850 MG TABLET PO SCH ×2 (08:59→18:02)
[2017-04-24] MEDS: NITROGLYCERIN 10 MG (0.4 MG/HR) PATCH.TD24 TD SCH (08:59)
[2017-04-24] MEDS: SACUBITRIL/VALSARTAN 24 MG/26 MG TABLET PO SCH ×2 (09:02→21:24)
[2017-04-24] MEDS: CARVEDILOL 12.5 MG TABLET PO SCH ×2 (09:03→21:23)
[2017-04-24] MEDS: CIPROFLOXACIN HCL 500 MG TABLET PO SCH ×2 (09:04→21:25)
[2017-04-24] MEDS: ASPIRIN 81 MG TABLET, ENT COATED PO SCH (09:04)
[2017-04-24] MEDS: CLOPIDOGREL BISULFATE 75 MG TABLET PO SCH (09:05)
[2017-04-24] MEDS: FUROSEMIDE INJ/PF 40 MG/4 ML SDV IV SCH ×2 (09:05→21:24)
[2017-04-24] MEDS: INSULIN LISPRO 100 UNIT/ML 3 ML VIAL SUBCUT SCH ×3 (09:06→18:00)
--- NOTE | 2017-04-24 20:21 | PDOC PROGRESS REPORT ---
Subjective Progress Note for:: 04/24/17 Subjective:: Patient denied chest pain or difficulty with breathing. No abdominal pain, nausea, or vomiting. Wound vac on left leg remain functional. Her left AC arm IV access catheter removal revealed pussy discharge as per nursing report since my last clinical evaluation. She denied any fever or chills. Reason For Visit: ACUTE ON CHRONIC SYSTOLIC CONGESTIVE HEART FAILURE Physical Exam Vital Signs: Temp Pulse Resp BP Pulse Ox 98.1 F 67 16 126/61 H 99 04/24/17 15:38 04/24/17 15:38 04/24/17 15:38 04/24/17 15:38 04/24/17 15:38 Intake & Output 04/23/17 04/24/17 04/25/17 06:59 06:59 06:59 Intake Total 1073 1315 620 Output Total 0 250 Balance 1073 1065 620 Weight 108.3 kg Physical Exam: General appearance: PRESENT: no acute distress, morbidly obese Head exam: PRESENT: atraumatic, normocephalic Eye exam: PRESENT: conjunctiva pink, EOMI, PERRLA. ABSENT: scleral icterus Mouth exam: PRESENT: moist Teeth exam: PRESENT: poor dentition Respiratory exam: PRESENT: clear to auscultation jerrica, decreased breath sounds - at lung bases Cardiovascular exam: PRESENT: RRR. ABSENT: diastolic murmur, rubs, systolic murmur Vascular exam: PRESENT: normal capillary refill. ABSENT: pallor GI/Abdominal exam: PRESENT: normal bowel sounds, soft. ABSENT: distended, guarding, mass, organomegaly, rebound, tenderness Extremities exam: PRESENT: tenderness - to palpation of muscles. ABSENT: pedal edema Musculoskeletal exam: PRESENT: deformity - related to multiple joints involvement with arthritis Neurological exam: PRESENT: alert, awake, oriented to person, oriented to place , oriented to time, oriented to situation, CN II-XII grossly intact. ABSENT: motor sensory deficit Psychiatric exam: PRESENT: appropriate affect, normal mood. ABSENT: homicidal ideation, suicidal ideation Skin exam: PRESENT: dry, warm, left AC site of discontinued IV access with minimal erythema and tenderness to palpation, other - wound on lateral aspect of left leg with wound vac application in-situ. Results Laboratory Results: 04/23/17 07:37 04/24/17 05:06 04/24/17 05:06 Sodium 142.9 Potassium 4.0 Chloride 103 Carbon Dioxide 31 H Anion Gap 9 BUN 24 H Creatinine 1.07 Est GFR ( Amer) > 60 Est GFR (Non-Af Amer) 52 L Glucose 147 H Calcium 9.0 04/24/17 05:06 Troponin I 0.018 Impressions: Chest X-Ray 04/18/17 05:21 IMPRESSION: 1. Cardiomegaly with pulmonary vascular congestion and likely interstitial pulmonary edema. 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 transplanted heart: [place] heart Associated angina: without angina Qualified Code(s): I25.10 - Atherosclerotic heart disease of [place] coronary artery without angina pectoris Is this a current diagnosis for this admission?: Yes (5) S/P CABG (coronary artery bypass graft) Is this a current diagnosis for this admission?: Yes (6) HLD (hyperlipidemia) Qualifiers: Hyperlipidemia type: pure hypercholesterolemia Qualified Code(s): E78.00 - Pure hypercholesterolemia, unspecified Is this a current diagnosis for this admission?: Yes (7) HTN (hypertension) Qualifiers: Hypertension type: essential hypertension Qualified Code(s): I10 - Essential (primary) hypertension Is this a current diagnosis for this admission?: Yes (8) Hx of stroke without residual deficits Is this a current diagnosis for this admission?: Yes (9) PAD (peripheral artery disease) Is this a current diagnosis for this admission?: Yes (10) Chronic combined systolic and diastolic CHF (congestive heart failure) Is this a current diagnosis for this admission?: Yes (11) Cellulitis of antecubital fossa Is this a current diagnosis for this admission?: Yes Plan: Start on Bactroban ointment topical to affected area. The IV access was inserted by the ambulance crew that brought patient to the ED. - Time Time Spent with patient: 25-34 minutes Medications reviewed and adjusted accordingly: Yes Anticipated discharge: Home with Homehealth Within: Other - Inpatient Certification Based on my medical assessment, after consideration of the patient's comorbidities, presenting symptoms, or acuity I expect that the services needed warrant INPATIENT care.: Yes I certify that my determination is in accordance with my understanding of Medicare's requirements for reasonable and necessary INPATIENT services [42 CFR 412.3e].: Yes Medical Necessity: Need Close Monitoring Due to Risk of Patient Decompensation, Need For Continuous Telemetry Monitoring, Risk of Complication if Not Cared For in Hospital Post Hospital Care: D/C Electrical Superintendent Documentation - Plan Summary Plan Summary: See attending physician orders.
[2017-04-24] MEDS: INSULIN GLARGINE,HUM.REC.ANLOG 300 UNIT/3 ML INSULN.PEN SUBCUT SCH (21:23)
[2017-04-24] MEDS: INSULIN LISPRO 100 UNIT/ML 3 ML VIAL SUBCUT PRN (21:23)
[2017-04-24] MEDS: MUPIROCIN 2% OINTMENT 22 GM TP SCH (21:24)
[2017-04-24] MEDS: ATORVASTATIN CALCIUM 40 MG TABLET PO SCH (21:25)
--- NOTE | 2017-04-24 22:08 | PROGRESS NOTE E ---
Progress Note NAME: JAVIER BURGER : 1955 AGE: 61Y DATE: 04/24/2017 ROOM: 334 SUBJECTIVE: The patient states that she has no further chest pressure. There is no PND, orthopnea. Her shortness of breath has much improved. There is no arrhythmia seen on the monitor. There is no dizziness or syncope. She has no leg edema. The left heel ulcer is healing well. OBJECTIVE: GENERAL: On examination the patient is morbidly obese, in no acute distress. VITAL SIGNS: She is afebrile with a temperature of 98 degrees Fahrenheit, pulse is 70 beats per minute, blood pressure is 125/63, respirations are 16 per minute, O2 saturations are 96% on room air. HEENT: Head is atraumatic, normocephalic. Eyes: Pupils are equal, round and regular, reactive to light and accommodation. Extraocular movements are normal. There is no conjunctival pallor. There is no scleral icterus. ENT is negative. NECK: Supple. There is no JVD. There is no lymphadenopathy. There is no goiter. Carotids are equal. There is no bruit. Trachea is central. LUNGS: Clear to auscultation and percussion without any rhonchi, rales, or wheezing. HEART: S1 and S2 is heard normally. There is no S3 gallop. There is no S4 gallop. There is a systolic murmur in the left sternal border and the apex. There is no rub. ABDOMEN: Soft, obese, nontender. There is no hepatosplenomegaly. Bowel sounds are well heard. There are no tender areas or masses. EXTREMITIES: Femorals are very much diminished. There are no femoral bruits. Leg pulses are diminished. There is no pedal edema. There is no DVT or cellulitis. There is an incision covered with tape on the left lower extremity from thigh to ankle as mentioned earlier due to recent vascular surgery. There is no cyanosis or clubbing. Capillary refill appears to be normal. There is a dressing on the ulcer in the left heel. As per the surgicalist's note it is healing with granulation tissue. CENTRAL NERVOUS SYSTEM: The patient is conscious, awake, alert and oriented x3 with no focal deficits. PSYCHIATRIC: The patient's judgment and insight are intact. Her affect is normal. INTAKE/OUTPUT: The patient's intake and output is not accurate. DIAGNOSTIC STUDIES: The patient's EKG shows sinus rhythm, LVH by voltage. The patient's sodium is 142.9, potassium 4.0, chloride 103, CO2 is 31. The patient's BUN is 24, creatinine is 1.07, GFR is greater than 60, glucose is 144. Her calcium is 9.0. Her troponin I is negative at 0.018. IMPRESSION: 1. CONGESTIVE HEART FAILURE AT PRESENT COMPENSATED. THIS IS ACUTE ON CHRONIC SYSTOLIC HEART FAILURE, AT PRESENT CHRONIC SYSTOLIC HEART FAILURE. NO ACUTE DECOMPENSATION. Note that the patient has been started on Entresto, we will wait for 2 weeks prior to increasing the dose. Note continue the Coreg at 25 mg p.o. q.12 hours. 2. CARDIOMYOPATHY, MODERATE TO SEVERELY REDUCED LV EJECTION FRACTION. 3. CORONARY ARTERY DISEASE WITH HISTORY OF CORONARY ARTERY BYPASS GRAFT SURGERY. NO HISTORY OF [place]. The patient yesterday had some chest pressure but there is no evidence of EKG changes of ischemia and her troponin I is negative. The patient later will be recommended to have a stress. If the stress test is negative then we will repeat an echo in 3 months and if the EF is 35% or below then the patient will be referred for an AICD. If the patient has a abnormal stress test and the patient does have revascularizable lesion then we will repeat echo in a month after the revascularization to see if the patient fits the criteria for AICD. This has been discussed with the patient. 4. PERIPHERAL ARTERIAL DISEASE. 5. LEFT HEEL ULCER BEING TREATED WITH ANTIBIOTICS. There is some improvement with revascularization of the left lower extremity. 6. HYPERTENSION. Blood pressure well-controlled. 7. DIABETES MELLITUS. 8. STATUS POST LEFT LOWER EXTREMITY REVASCULARIZATION SURGERY. PER SURGEON THE LEFT HEEL ULCER IS HEALING WITH GRANULATION. 9. HYPERLIPIDEMIA. 10. HISTORY OF DIVERTICULOSIS. 11. OSTEOARTHRITIS. 12. MORBID OBESITY. 13. CHEST PRESSURE, SEEMS TO BE NONCARDIAC. We recommend that the patient has a stress test later on. RECOMMENDATIONS: Continue Coreg. Continue Entresto. Continue the patient's gabapentin, insulin, metformin, and transdermal nitro patch. We will increase the patient's Entresto in about 2 weeks to go to the targeted maintenance dose. Continue the patient on atorvastatin. TIME SPENT: Note 30 minutes spent on this patient with more than 50% of the time spent on direct patient care. Her medications have been reviewed and plan of care and management plans have been made after discussion with the attending physician and other care giving providers on the case. Note medical decision making is of high complexity still. DICTATING PHYSICIAN: RICHIE LARIOS M.D. [id number] PHY#: [id number] ID: [id number] JOB#: [id number] ACCT: [id number] cc: >
[2017-04-25] MEDS: OXYCODONE HCL IR 5 MG TABLET PO PRN ×3 (00:34→22:16)
[2017-04-25] MEDS: GABAPENTIN 300 MG CAPSULE PO SCH ×4 (00:34→17:09)
[2017-04-25] MEDS: MUPIROCIN 2% OINTMENT 22 GM TP SCH ×3 (05:45→22:11)
[2017-04-25 05:55] LABS: ABSOLUTE BASOPHILS # (AUTO) 0.1 10^3/uL (0.0-0.2); ABSOLUTE EOSINOPHILS # (AUTO) 0.3 10^3/uL (0.0-0.6); ABSOLUTE LYMPHOCYTES (AUTO) 3.3 10^3/uL (0.5-4.7); ABSOLUTE MONOCYTES (AUTO) 0.9 10^3/uL (0.1-1.4); ABSOLUTE NEUT (AUTO) 3.9 10^3/uL (1.7-8.2); BASOPHILS % (AUTO) 0.7 % (0-2); HEMATOCRIT 31.4 % (36.0-47.0); HEMOGLOBIN 10.2 g/dL (12.0-15.5); HGB HCT DIFFERENCE -0.8; LYMPHOCYTES % (AUTO) 38.9 % (13-45); MEAN CORPUSCULAR HEMOGLOBIN 29.3 pg (27.0-33.4); MEAN CORPUSCULAR HGB CONC 32.4 g/dL (32.0-36.0); MEAN CORPUSCULAR VOLUME 90 fl (80-97); MONOCYTES % (AUTO) 10.7 % (3-13); RED BLOOD COUNT 3.47 10^6/uL (3.72-5.28); RED CELL DISTRIBUTION WIDTH 16.1 % (11.5-14.0); SEGMENTED NEUTROPHILS % (AUTO) 45.7 % (42-78); WHITE BLOOD COUNT 8.5 10^3/uL (4.0-10.5)
[2017-04-25 06:11] LABS: ALANINE AMINOTRANSFERASE 19 U/L (9-52); ALBUMIN 3.3 g/dL (3.5-5.0); ALKALINE PHOSPHATASE 112 U/L (38-126); ANION GAP 12 (5-19); ASPARTATE AMINO TRANSFERASE 14 U/L (14-36); BILIRUBIN,DIRECT 0.3 mg/dL (0.0-0.4); BILIRUBIN,TOTAL 0.4 mg/dL (0.2-1.3); BLOOD UREA NITROGEN 28 mg/dL (7-20); CALCIUM 9.6 mg/dL (8.4-10.2); CARBON DIOXIDE 29 mmol/L (22-30); CHLORIDE 101 mmol/L (98-107); CREATININE RESULT 1.37 mg/dL (0.52-1.25); GLUCOSE 134 mg/dL (75-110); POTASSIUM 4.2 mmol/L (3.6-5.0); SODIUM 142.4 mmol/L (137-145); TOTAL PROTEIN 6.9 g/dL (6.3-8.2)
--- NOTE | 2017-04-25 08:12 | PDOC PROGRESS REPORT ---
Subjective Progress Note for:: 04/25/17 Subjective:: Patient reported some degree of dizziness this morning. She denied chest pain or difficulty with breathing. No abdominal pain, nausea, or vomiting. No fever or chills. Reason For Visit: ACUTE ON CHRONIC SYSTOLIC CONGESTIVE HEART FAILURE Physical Exam Vital Signs: Temp Pulse Resp BP Pulse Ox 98.3 F 67 16 132/64 H 98 04/25/17 05:43 04/25/17 05:43 04/25/17 05:43 04/25/17 05:43 04/25/17 05:43 Intake & Output 04/24/17 04/25/17 04/26/17 06:59 06:59 06:59 Intake Total 1315 1330 Output Total 250 700 Balance 1065 630 Weight 108.3 kg Physical Exam: General appearance: PRESENT: no acute distress, morbidly obese Head exam: PRESENT: atraumatic, normocephalic Eye exam: PRESENT: conjunctiva pink, EOMI, PERRLA. ABSENT: scleral icterus Mouth exam: PRESENT: moist Teeth exam: PRESENT: poor dentition Respiratory exam: PRESENT: clear to auscultation jerrica, decreased breath sounds - at lung bases Cardiovascular exam: PRESENT: RRR. ABSENT: diastolic murmur, rubs, systolic murmur Vascular exam: PRESENT: normal capillary refill. ABSENT: pallor GI/Abdominal exam: PRESENT: normal bowel sounds, soft. ABSENT: distended, guarding, mass, organomegaly, rebound, tenderness Extremities exam: PRESENT: tenderness - to palpation of muscles. ABSENT: pedal edema Musculoskeletal exam: PRESENT: deformity - related to multiple joints involvement with arthritis Neurological exam: PRESENT: alert, awake, oriented to person, oriented to place , oriented to time, oriented to situation, CN II-XII grossly intact. ABSENT: motor sensory deficit Psychiatric exam: PRESENT: appropriate affect, normal mood. ABSENT: homicidal ideation, suicidal ideation Skin exam: PRESENT: dry, warm, left AC site of discontinued IV access erythema less without spreading beyond marked edges, other - wound on lateral aspect of left leg with wound vac application in-situ. Results Laboratory Results: 04/25/17 05:21 04/25/17 05:21 04/25/17 04/25/17 05:21 05:21 WBC 8.5 RBC 3.47 L Hgb 10.2 L Hct 31.4 L MCV 90 MCH 29.3 MCHC 32.4 RDW 16.1 H Plt Count 270 Seg Neutrophils % 45.7 Lymphocytes % 38.9 Monocytes % 10.7 Eosinophils % 4.0 Basophils % 0.7 Absolute Neutrophils 3.9 Absolute Lymphocytes 3.3 Absolute Monocytes 0.9 Absolute Eosinophils 0.3 Absolute Basophils 0.1 Sodium 142.4 Potassium 4.2 Chloride 101 Carbon Dioxide 29 Anion Gap 12 BUN 28 H Creatinine 1.37 H Est GFR ( Amer) 47 L Est GFR (Non-Af Amer) 39 L Glucose 134 H Calcium 9.6 Total Bilirubin 0.4 AST 14 ALT 19 Alkaline Phosphatase 112 Total Protein 6.9 Albumin 3.3 L 04/24/17 04/25/17 05:06 05:21 Troponin I 0.018 NT-Pro-B Natriuret Pep 1320 H Impressions: Chest X-Ray 04/18/17 05:21 IMPRESSION: 1. Cardiomegaly with pulmonary vascular congestion and likely interstitial pulmonary edema. Assessment & Plan - Diagnosis (1) Acute on chronic systolic CHF (congestive heart failure) Is this a current diagnosis for this admission?: Yes (2) Respiratory distress Is this a current diagnosis for this admission?: Yes (3) Type 2 diabetes mellitus Qualifiers: Diabetes mellitus complication status: with unspecified complications Diabetes mellitus custodial insulin use: with terminal superintendent use Qualified Code(s) : E11.8 - Type 2 diabetes mellitus with unspecified complications; Z79.4 - superintendent marine oil terminal (current) use of insulin; Z79.4 - senior care (current) use of insulin; Z79.4 - superintendent marine oil terminal (current) use of insulin; Z79.4 - superintendent marine oil terminal (current) use of insulin Is this a current diagnosis for this admission?: Yes (4) CAD (coronary artery disease) Qualifiers: Coronary Disease-Associated Artery/Lesion type: unspecified vessel or lesion type [place] vs. transplanted heart: [place] heart Associated angina: without angina Qualified Code(s): I25.10 - Atherosclerotic heart disease of [place] coronary artery without angina pectoris Is this a current diagnosis for this admission?: Yes (5) S/P CABG (coronary artery bypass graft) Is this a current diagnosis for this admission?: Yes (6) HLD (hyperlipidemia) Qualifiers: Hyperlipidemia type: pure hypercholesterolemia Qualified Code(s): E78.00 - Pure hypercholesterolemia, unspecified Is this a current diagnosis for this admission?: Yes (7) HTN (hypertension) Qualifiers: Hypertension type: essential hypertension Qualified Code(s): I10 - Essential (primary) hypertension Is this a current diagnosis for this admission?: Yes (8) Hx of stroke without residual deficits Is this a current diagnosis for this admission?: Yes (9) PAD (peripheral artery disease) Is this a current diagnosis for this admission?: Yes (10) Chronic combined systolic and diastolic CHF (congestive heart failure) Is this a current diagnosis for this admission?: Yes (11) Cellulitis of antecubital fossa Is this a current diagnosis for this admission?: Yes - Time Time Spent with patient: 25-34 minutes Medications reviewed and adjusted accordingly: Yes Anticipated discharge: Home with Homehealth - Inpatient Certification Based on my medical assessment, after consideration of the patient's comorbidities, presenting symptoms, or acuity I expect that the services needed warrant INPATIENT care.: Yes I certify that my determination is in accordance with my understanding of Medicare's requirements for reasonable and necessary INPATIENT services [42 CFR 412.3e].: Yes Medical Necessity: Need Close Monitoring Due to Risk of Patient Decompensation, Need For Continuous Telemetry Monitoring, Risk of Complication if Not Cared For in Hospital Post Hospital Care: D/C Statistics Professor Documentation - Plan Summary Plan Summary: D/C IV Lasix in view of increase serum creatinine level. Maintain on oral Lasix at 40 mg po daily. Monitor on fluid restriction and dietary salt intake. Dr Barajas will cover my service till 05/05/17.
[2017-04-25] MEDS: NITROGLYCERIN 10 MG (0.4 MG/HR) PATCH.TD24 TD SCH (09:17)
[2017-04-25] MEDS: INSULIN LISPRO 100 UNIT/ML 3 ML VIAL SUBCUT SCH ×3 (09:18→17:09)
[2017-04-25] MEDS: CIPROFLOXACIN HCL 500 MG TABLET PO SCH ×2 (09:19→22:04)
[2017-04-25] MEDS: ASPIRIN 81 MG TABLET, ENT COATED PO SCH (09:19)
[2017-04-25] MEDS: SACUBITRIL/VALSARTAN 24 MG/26 MG TABLET PO SCH ×2 (09:19→22:02)
[2017-04-25] MEDS: FUROSEMIDE 40 MG TABLET PO SCH (09:19)
[2017-04-25] MEDS: METFORMIN HCL 850 MG TABLET PO SCH ×2 (09:19→17:09)
[2017-04-25] MEDS: CLOPIDOGREL BISULFATE 75 MG TABLET PO SCH (09:19)
[2017-04-25] MEDS: CARVEDILOL 12.5 MG TABLET PO SCH ×2 (09:20→22:02)
--- NOTE | 2017-04-25 21:53 | PROGRESS NOTE E ---
Progress Note NAME: JAVIER BURGER : 1955 AGE: 61Y DATE: 04/25/2017 ROOM: 334 SUBJECTIVE: Note that the patient appears to be comfortable. She denies any PND, orthopnea, chest pain or discomfort. There is no chest pressure. There is no shortness of breath. There is no edema. She states that the leg ulcer is healing. There are no arrhythmias on the monitor. There are no TIA or CVA symptoms. The patient denies any dizziness or near syncope or syncope. The patient remains in sinus rhythm. OBJECTIVE: GENERAL: On examination, the patient is morbidly obese, in no acute distress. VITAL SIGNS: She is afebrile with a temperature of 97.4 degrees Fahrenheit. Pulse is 69 beats per minute. Blood pressure 157/74. Respirations are 13 per minute. O2 sats are 96% on room air. HEAD: Atraumatic, normocephalic. EYES: Pupils are equal, round, regular, reactive to light and accommodation. Extraocular movements are normal. There is no conjunctival pallor. There is no scleral icterus. ENT: Negative. NECK: Supple. There is no JVD. Carotids are equal. There is no bruit. There is no goiter. There is no lymphadenopathy. Tracheal is central. LUNGS: Clear to auscultation and percussion. There is no chest-wall tenderness. HEART: S1 and S2 are heard. There is no S3 gallop. There is no S4 gallop. There is a systolic murmur at the left sternal border and the apex. There is no rub. ABDOMEN: Soft, nontender. There is no hepatosplenomegaly. Bowel sounds are well heard. There are no tender areas or masses. EXTREMITIES: On examination, there are no femoral bruits. Leg pulses are diminished. There is tape on the site of the incision from the vascular surgery on the left lower extremity, as mentioned earlier. There is dressing on the heel ulcer on the left dorsum of the foot. CENTRAL NERVOUS SYSTEM: The patient is conscious, awake, alert, oriented x3, with no focal deficits. PSYCHIATRIC: The patient's judgement and insight are intact. Her affect is normal. LABORATORY DATA: The patient's white count is 8500, hemoglobin is 10.2, hematocrit is 31.4, platelet count is 270,000. The patient's sodium is 142.4, potassium 4.2, chloride 101, CO2 is 29. The patient's BUN is 28, creatinine is 1.37, GFR is reduced to 47, which is chronic kidney disease stage 3. The patient's glucose is 134. The patient's calcium is 9.6. The patient's liver function tests are normal. The patient's NT-ProBNP is 1320. IMPRESSION: 1. CONGESTIVE HEART FAILURE, ACUTE ON CHRONIC, AT PRESENT COMPENSATED. 2. CARDIOMYOPATHY WITH MODERATELY TO SEVERELY REDUCED LV EJECTION FRACTION. 3. PERIPHERAL ARTERIAL DISEASE. 4. CORONARY ARTERY DISEASE. HISTORY OF CORONARY ARTERY BYPASS GRAFT SURGERY WITH NO ANGINAL SYMPTOMS. 5. LEFT HEEL ULCER WHICH IS HEALING BETTER AFTER REVASCULARIZATION. Continue antibiotics. 6. HYPERTENSION. Continue the patient's beta genaro and the patient's Entresto. 7. DIABETES MELLITUS. Continue antidiabetic medication. Blood sugar reasonable. 8. STATUS POST LEFT LOWER EXTREMITY ARTERIAL REVASCULARIZATION, STABLE. 9. HYPERLIPIDEMIA. 10. HISTORY OF DIVERTICULOSIS WITH NO ACUTE DECOMPENSATION OF THIS DISEASE. 11. OSTEOARTHRITIS. 12. MORBID OBESITY. 13. CHEST PRESSURE, NONCARDIAC. Later would recommend that the patient have a Cardiolite stress test. Note, 30 minutes spent on this patient with more than 50% of the time spent on direct patient care. I have reviewed the patient's medications. After 2 weeks we will try to increase the patient's Entresto, watching the patient's renal function. Note, medical decision making is still highly complex. Will follow with you. Discussed with the attending physician on the case. Also note that even if the patient does require an AICD, this is not the time in view of the patient's left heel ulcer. This has been discussed with the patient. DICTATING PHYSICIAN: RICHIE LARIOS M.D. [id number] CARLI#: [id number] ID: [id number] JOB#: [id number] ACCT: [id number] cc: >
[2017-04-25] MEDS: INSULIN GLARGINE,HUM.REC.ANLOG 300 UNIT/3 ML INSULN.PEN SUBCUT SCH (22:00)
[2017-04-25] MEDS: ATORVASTATIN CALCIUM 40 MG TABLET PO SCH (22:03)
[2017-04-26] MEDS: GABAPENTIN 300 MG CAPSULE PO SCH ×5 (01:20→23:22)
[2017-04-26] MEDS: COLLAGENASE CLOSTRIDIUM HIST. OINT 30 GM TP SCH (01:22)
[2017-04-26] MEDS: MUPIROCIN 2% OINTMENT 22 GM TP SCH ×3 (05:57→21:33)
[2017-04-26] MEDS: METFORMIN HCL 850 MG TABLET PO SCH ×2 (08:39→18:09)
[2017-04-26] MEDS: NITROGLYCERIN 10 MG (0.4 MG/HR) PATCH.TD24 TD SCH (08:39)
[2017-04-26] MEDS: INSULIN LISPRO 100 UNIT/ML 3 ML VIAL SUBCUT SCH ×3 (08:40→18:09)
[2017-04-26] MEDS: ASPIRIN 81 MG TABLET, ENT COATED PO SCH (11:36)
[2017-04-26] MEDS: SACUBITRIL/VALSARTAN 24 MG/26 MG TABLET PO SCH ×2 (11:40→21:33)
[2017-04-26] MEDS: CARVEDILOL 12.5 MG TABLET PO SCH ×2 (11:40→21:33)
[2017-04-26] MEDS: FUROSEMIDE 40 MG TABLET PO SCH (11:40)
[2017-04-26] MEDS: CLOPIDOGREL BISULFATE 75 MG TABLET PO SCH (11:41)
[2017-04-26] MEDS: CIPROFLOXACIN HCL 500 MG TABLET PO SCH ×2 (11:42→21:33)
[2017-04-26] MEDS: OXYCODONE HCL IR 5 MG TABLET PO PRN (20:38)
[2017-04-26] MEDS: INSULIN GLARGINE,HUM.REC.ANLOG 300 UNIT/3 ML INSULN.PEN SUBCUT SCH (21:33)
[2017-04-26] MEDS: ATORVASTATIN CALCIUM 40 MG TABLET PO SCH (21:33)
[2017-04-26] MEDS: INSULIN LISPRO 100 UNIT/ML 3 ML VIAL SUBCUT PRN (21:35)
--- NOTE | 2017-04-26 22:03 | PROGRESS NOTE E ---
Progress Note NAME: JAVIER BURGER : 1955 AGE: 61Y DATE: 04/26/2017 ROOM: 334 SUBJECTIVE: Note, the patient appears to be comfortable. She denies any chest pain or discomfort. There is no shortness of breath. There is no PND or orthopnea. There are no arrhythmias on the monitor. There are no TIA or CVA symptoms. the patient states that her left heel ulcer is healing. OBJECTIVE: GENERAL: The patient is morbidly obese, in no acute distress. VITAL SIGNS: She is afebrile with a temperature of 98.9 degrees Fahrenheit orally. Pulse is 72 beats per minute. Blood pressure 113/58. Respirations 17 per minute. O2 sats are 97% on room air. HEAD: Atraumatic, normocephalic. EYES: Pupils are equal, round, regular, reactive to light and accommodation. Extraocular movements are normal. There is no conjunctival pallor. There is no scleral icterus. ENT: Negative. NECK: Supple. There is no JVD. Carotids are equal. There is no bruit. There is no goiter. There is no lymphadenopathy. Trachea is central. LUNGS: Clear to auscultation and percussion. There is no chest-wall tenderness. HEART: S1 and S2 are heard. There is no S3 gallop. There is no S4 gallop. There is a systolic murmur in the left sternal border and apex. ABDOMEN: Soft, nontender. There is no hepatosplenomegaly. Bowel sounds are well heard. There are no tender areas or masses. EXTREMITIES: There are no femoral bruits. Leg pulses are diminished. There is tape on the site of the incision from vascular surgery in the left lower extremity, as mentioned earlier. There is a dressing on the left heel ulcer. CENTRAL NERVOUS SYSTEM: The patient is conscious, awake, alert, oriented x3, with no focal deficit. PSYCHIATRIC: The patient's judgement and insight are intact. Her affect is normal. INTAKE/OUTPUT: The patient's intake and output are not accurate. LABORATORY DATA: The patient's blood sugars are 78 and 166. ASSESSMENT: 1. CONGESTIVE HEART FAILURE, ACUTE ON CHRONIC SYSTOLIC HEART FAILURE, AT PRESENT COMPENSATED. 2. CARDIOMYOPATHY WITH MODERATELY TO SEVERELY REDUCED LV EJECTION FRACTION, STABLE. 3. Note that the patient is on a beta genaro, and also the patient is on Entresto. I will wait for 2 weeks prior to increasing the dose. 4. LEFT HEEL ULCER WHICH IS HEALING NOW AFTER REVASCULARIZATION. 5. HYPERTENSION. CONTINUE THE PATIENT'S BETA GENARO AND THE PATIENT'S ENTRESTO. 6. DIABETES MELLITUS. CONTINUE ANTIDIABETIC MEDICATION. 7. STATUS POST LEFT LOWER EXTREMITY ARTERIAL REVASCULARIZATION, STABLE. 8. HYPERLIPIDEMIA. 9. HISTORY OF DIVERTICULOSIS WITH NO ACUTE DECOMPENSATION OF THIS DISEASE. 10. OSTEOARTHRITIS. 11. MORBID OBESITY. 12. CHEST PRESSURE, NONCARDIAC. NO RECURRENCE. 13. CHRONIC RENAL INSUFFICIENCY, CHRONIC KIDNEY DISEASE STAGE 3. RECOMMENDATIONS: Continue the patient on Plavix, antibiotics, Coreg, and Entresto. Continue the patient on metformin. Continue Accu-Chek's with insulin coverage. Note, 30 minutes were spent on this patient. The patient's medications have been reviewed. Fifty percent of the time was spent on direct care of the patient. I discussed the management plan with the attending physician on the case. Note, since the patient has an infected ulcer, will get the patient's stress test when the ulcer heals and there is no infection. This will be arranged by my office, since she is a patient of mine in the office. Will repeat the patient's echocardiogram in 3 months from the time of the recent echocardiogram, and if it is still 35% or below, and if there are no revascularization options, then would recommend the patient be referred for AICD placement, since she would meet 2 criteria, since she has a history of coronary artery disease and coronary artery bypass graft surgery and a history of PR in the past. At present the patient has no anginal symptoms. Note, 30 minutes spent on this patient, more than 50% of the time spent in direct patient care. Will sign off the case. Please call me if my services are needed. DICTATING PHYSICIAN: RICHIE LARIOS M.D. [id number] PHY#: [id number] ID: [id number] JOB#: [id number] ACCT: [id number] cc: >
--- NOTE | 2017-04-26 22:06 | PDOC PROGRESS REPORT ---
Subjective Progress Note for:: 04/26/17 Subjective:: She was seen by the bedside, she has no new chest symptoms, she has a wound VAC on the left leg Reason For Visit: ACUTE ON CHRONIC SYSTOLIC CONGESTIVE HEART FAILURE Physical Exam Vital Signs: Temp Pulse Resp BP Pulse Ox 98.3 F 79 12 129/61 H 97 04/26/17 19:32 04/26/17 19:37 04/26/17 19:32 04/26/17 19:32 04/26/17 19:32 Intake & Output 04/25/17 04/26/17 04/27/17 06:59 06:59 06:59 Intake Total 1330 1324 585 Output Total 700 0 Balance 630 1324 585 General appearance: PRESENT: no acute distress Eye exam: PRESENT: PERRLA Respiratory exam: PRESENT: clear to auscultation jerrica Cardiovascular exam: PRESENT: +S1, +S2 GI/Abdominal exam: PRESENT: soft Neurological exam: PRESENT: alert, CN II-XII grossly intact Results Laboratory Results: 04/25/17 05:21 04/25/17 05:21 04/23/17 15:30 Leg - Tissue Gram Stain - Final 04/24/17 04/25/17 05:06 05:21 Troponin I 0.018 NT-Pro-B Natriuret Pep 1320 H Impressions: Chest X-Ray 04/18/17 05:21 IMPRESSION: 1. Cardiomegaly with pulmonary vascular congestion and likely interstitial pulmonary edema. Assessment & Plan - Diagnosis (1) Acute on chronic systolic CHF (congestive heart failure) Is this a current diagnosis for this admission?: Yes (2) Open wound of left knee without complication Qualifiers: Encounter type: subsequent encounter Qualified Code(s): S81.002D - Unspecified open wound, left knee, subsequent encounter Is this a current diagnosis for this admission?: Yes (3) Type 2 diabetes mellitus Qualifiers: Diabetes mellitus complication status: with unspecified complications Diabetes mellitus exterminator helper insulin use: with exterminator helper use Qualified Code(s) : E11.8 - Type 2 diabetes mellitus with unspecified complications; Z79.4 - exterminator helper termite (current) use of insulin; Z79.4 - exterminator helper termite (current) use of insulin; Z79.4 - exterminator helper termite (current) use of insulin; Z79.4 - snf (current) use of insulin Is this a current diagnosis for this admission?: Yes (4) Ulcer of left heel Qualifiers: Non-pressure ulcer stage: unspecified non-pressure ulcer stage Qualified Code(s): L97.429 - Non-pressure chronic ulcer of left heel and midfoot with unspecified severity Is this a current diagnosis for this admission?: Yes - Plan Summary Plan Summary: She will continue present treatment
[2017-04-27] MEDS: OXYCODONE HCL IR 5 MG TABLET PO PRN (05:03)
[2017-04-27] MEDS: GABAPENTIN 300 MG CAPSULE PO SCH (05:03)
[2017-04-27] MEDS: MUPIROCIN 2% OINTMENT 22 GM TP SCH (05:04)
[2017-04-27 08:02] VITALS: BP 118/65
[2017-04-27] MEDS: INSULIN LISPRO 100 UNIT/ML 3 ML VIAL SUBCUT SCH (08:15)
[2017-04-27] MEDS: METFORMIN HCL 850 MG TABLET PO SCH (08:16)
[2017-04-27] MEDS: NITROGLYCERIN 10 MG (0.4 MG/HR) PATCH.TD24 TD SCH (08:19)
[2017-04-27] MEDS: SACUBITRIL/VALSARTAN 24 MG/26 MG TABLET PO SCH (09:32)
[2017-04-27] MEDS: FUROSEMIDE 40 MG TABLET PO SCH (09:32)
[2017-04-27] MEDS: ASPIRIN 81 MG TABLET, ENT COATED PO SCH (09:32)
[2017-04-27] MEDS: CARVEDILOL 12.5 MG TABLET PO SCH (09:32)
[2017-04-27] MEDS: CIPROFLOXACIN HCL 500 MG TABLET PO SCH (09:33)
[2017-04-27] MEDS: CLOPIDOGREL BISULFATE 75 MG TABLET PO SCH (09:33)
[2017-04-27 09:59] LABS: ABSOLUTE EOSINOPHILS # (AUTO) 0.2 10^3/uL (0.0-0.6); ABSOLUTE LYMPHOCYTES (AUTO) 2.8 10^3/uL (0.5-4.7); ABSOLUTE MONOCYTES (AUTO) 0.6 10^3/uL (0.1-1.4); ABSOLUTE NEUT (AUTO) 3.6 10^3/uL (1.7-8.2); BASOPHILS % (AUTO) 0.6 % (0-2); EOSINOPHILS % (AUTO) 2.9 % (0-6); HEMATOCRIT 33.8 % (36.0-47.0); HEMOGLOBIN 10.8 g/dL (12.0-15.5); HGB HCT DIFFERENCE -1.4; LYMPHOCYTES % (AUTO) 38.1 % (13-45); MEAN CORPUSCULAR HEMOGLOBIN 29.1 pg (27.0-33.4); MEAN CORPUSCULAR VOLUME 91 fl (80-97); MONOCYTES % (AUTO) 8.7 % (3-13); RED BLOOD COUNT 3.72 10^6/uL (3.72-5.28); RED CELL DISTRIBUTION WIDTH 15.6 % (11.5-14.0); SEGMENTED NEUTROPHILS % (AUTO) 49.7 % (42-78); WHITE BLOOD COUNT 7.3 10^3/uL (4.0-10.5)
[2017-04-27 10:32] LABS: ALANINE AMINOTRANSFERASE 19 U/L (9-52); ALBUMIN 3.8 g/dL (3.5-5.0); ALKALINE PHOSPHATASE 117 U/L (38-126); ANION GAP 12 (5-19); ASPARTATE AMINO TRANSFERASE 15 U/L (14-36); BILIRUBIN,DIRECT 0.2 mg/dL (0.0-0.4); BILIRUBIN,TOTAL 0.4 mg/dL (0.2-1.3); BLOOD UREA NITROGEN 37 mg/dL (7-20); CALCIUM 10.1 mg/dL (8.4-10.2); CARBON DIOXIDE 31 mmol/L (22-30); CHLORIDE 101 mmol/L (98-107); GLUCOSE 212 mg/dL (75-110); POTASSIUM 4.5 mmol/L (3.6-5.0); TOTAL PROTEIN 7.3 g/dL (6.3-8.2)
--- NOTE | 2017-04-27 17:29 | PDOC DISCHARGE SUMMARY ---
General - Admit/Disc Date/PCP Admission Date/Primary Care Provider: 04/18/17 08:34 STEPHAN TAFOYA Discharge Date: 04/27/17 - Discharge Diagnosis (1) Acute on chronic systolic CHF (congestive heart failure) Is this a current diagnosis for this admission?: Yes (2) Open wound of left knee without complication Is this a current diagnosis for this admission?: Yes (3) Type 2 diabetes mellitus Is this a current diagnosis for this admission?: Yes (4) Ulcer of left heel Is this a current diagnosis for this admission?: Yes - Additional Information Resuscitation Status: Full Code Discharge Diet: Cardiac, Diabetic Discharge Activity: Activity As Tolerated, Balance Activity w/Rest, Weigh Daily Prescriptions: Carvedilol [Coreg 25 mg Tablet] 1 tab PO Q12 #60 tab Home Medications: Aspirin [Aspirin EC] 81 mg PO DAILY 04/18/17 Atorvastatin Calcium [Lipitor 40 mg Tablet] 40 mg PO QHS 04/18/17 Clopidogrel Bisulfate [Plavix 75 mg Tablet] 75 mg PO DAILY 04/18/17 Collagenase Clostridium Hist. [Santyl Ointment 30 gm] 1 applic TP MOWEFR@2200 Gabapentin [Neurontin 300 mg Capsule] 300 mg PO Q6 04/18/17 Insulin Glargine,Hum.rec.anlog [Lantus Solostar] 30 unit SQ QHS 04/18/17 Insulin Lispro [Humalog Insulin 100 Unit/1 ml 3 ml Vial] 5 unit SUBCUT MEALS Lisinopril [Prinivil 40 mg Tablet] 40 mg PO DAILY 04/18/17 Metformin HCl [Glucophage] 850 mg PO BIDBS 04/18/17 Nitroglycerin [Nitro-Dur 10 mg (0.4MG/Hr) Transdermal Patch] 1 patch TD QAM Oxycodone HCl 15 mg PO Q6HP PRN 04/23/17 Carvedilol [Coreg 25 mg Tablet] 1 tab PO Q12 #60 tab 04/27/17 History of Present Illness History of Present Illness: JAVIER BURGER is a 61 year old female, she presented on November 16, 2016 to the emergency room with acute on chronic systolic heart failure, infected left leg ulcer, peripheral vascular disease, she was admitted by Dr. Tafoya for the evaluation of shortness of breath Hospital Course Hospital Course: She was admitted for the management of acute systolic heart failure she was seen by cardiology Dr. Harding she also had left leg ulcer that was infected she had a wound VAC in place for management of the infected leg ulcer. 2D echo was done, it showed left ventricle ejection fraction of 35% she was treated with diuretic, antibiotic for the ulcer, she was optimized for the CHF, medication was adjusted. Physical Exam Vital Signs: Temp Pulse Resp BP Pulse Ox 98.1 F 72 18 118/65 95 04/27/17 08:32 04/27/17 08:32 04/27/17 08:32 04/27/17 08:32 04/27/17 08:32 Intake & Output 04/26/17 04/27/17 04/28/17 06:59 06:59 06:59 Intake Total 1324 1010 Output Total 0 0 Balance 1324 1010 General appearance: PRESENT: no acute distress, well-developed, well-nourished Head exam: PRESENT: atraumatic, normocephalic Eye exam: PRESENT: conjunctiva pink, EOMI, PERRLA Ear exam: PRESENT: normal external ear exam Mouth exam: PRESENT: moist, tongue midline Neck exam: PRESENT: full ROM Respiratory exam: PRESENT: clear to auscultation jerrica Cardiovascular exam: PRESENT: RRR, +S1, +S2 Vascular exam: PRESENT: normal capillary refill GI/Abdominal exam: PRESENT: diminished bowel sounds, normal bowel sounds, soft Rectal exam: PRESENT: deferred Neurological exam: PRESENT: alert Psychiatric exam: PRESENT: appropriate affect, normal mood Skin exam: PRESENT: dry, intact, warm Results Laboratory Results: 04/27/17 09:30 04/27/17 09:30 04/27/17 04/27/17 09:30 09:30 WBC 7.3 RBC 3.72 Hgb 10.8 L Hct 33.8 L MCV 91 MCH 29.1 MCHC 32.0 RDW 15.6 H Plt Count 298 Seg Neutrophils % 49.7 Lymphocytes % 38.1 Monocytes % 8.7 Eosinophils % 2.9 Basophils % 0.6 Absolute Neutrophils 3.6 Absolute Lymphocytes 2.8 Absolute Monocytes 0.6 Absolute Eosinophils 0.2 Absolute Basophils 0.0 Sodium 144.0 Potassium 4.5 Chloride 101 Carbon Dioxide 31 H Anion Gap 12 BUN 37 H Creatinine 1.40 H Est GFR ( Amer) 46 L Est GFR (Non-Af Amer) 38 L Glucose 212 H Calcium 10.1 Total Bilirubin 0.4 AST 15 ALT 19 Alkaline Phosphatase 117 Total Protein 7.3 Albumin 3.8 04/23/17 15:30 Leg - Tissue Gram Stain - Final 04/23/17 15:30 Leg - Tissue Wound Culture - Final Pseudomonas Aeruginosa Staphylococcus Haemolyticus Proteus Mirabilis Corynebacterium Species Enterococcus Faecalis(Group D) No Anaerobic Organisms 04/23/17 22:30 Arm - Iv Site Gram Stain - Final 04/23/17 22:30 Arm - Iv Site Wound Culture - Final Skin Gabriella 04/24/17 04/25/17 05:06 05:21 Troponin I 0.018 NT-Pro-B Natriuret Pep 1320 H Impressions: Chest X-Ray 04/18/17 05:21 IMPRESSION: 1. Cardiomegaly with pulmonary vascular congestion and likely interstitial pulmonary edema.
== END 2017-04-27 11:19 | disposition home or self-care (01) | DRG 292 ==
LOC: ER 05:11 → EH 08:34 → 3S 17:10
PROVIDERS: ADMIT Internal Medicine Geriatric Medicine; ATTEND Internal Medicine Geriatric Medicine
DX: I50.23 Acute on chronic systolic (congestive) heart failure (principal); L97.429 Non-pressure chronic ulcer of left heel and midfoot with unspecified severity; I42.9 Cardiomyopathy, unspecified; Z68.41 Body mass index [BMI] 40.0-44.9, adult; L03.114 Cellulitis of left upper limb; S81.002D Unspecified open wound, left knee, subsequent encounter; I11.0 Hypertensive heart disease with heart failure; E11.40 Type 2 diabetes mellitus with diabetic neuropathy, unspecified; E78.5 Hyperlipidemia, unspecified; I73.9 Peripheral vascular disease, unspecified; I25.10 Atherosclerotic heart disease of native coronary artery without angina pectoris; M19.90 Unspecified osteoarthritis, unspecified site; E66.9 Obesity, unspecified; Z79.02 Long term (current) use of antithrombotics/antiplatelets; Z79.84 Long term (current) use of oral hypoglycemic drugs; Z79.4 Long term (current) use of insulin; Z79.82 Long term (current) use of aspirin; Z79.899 Other long term (current) drug therapy; I25.2 Old myocardial infarction; Z95.1 Presence of aortocoronary bypass graft; Z86.73 Personal history of transient ischemic attack (TIA), and cerebral infarction without residual deficits; Z88.8 Allergy status to other drugs, medicaments and biological substances; Z87.891 Personal history of nicotine dependence
CPT/HCPCS: 36415; 71010; 80048; 80053; 81001; 82550; 82553; 82803; 82962; 83880; 84484; 85025; 87040; 87070; 87075; 87077; 87186; 87205; 93005; 93010; 93306; 94660; 96374; 99285; J1815; J1940; J3490

== ENCOUNTER 2017-05-01 09:00 | Emergency (ER) | payer MEDICARE, MEDICAID ==
--- NOTE | 2017-05-01 10:03 | ER Document Report ---
ED Medical Screen (RME) - General Chief Complaint: Shortness Of Breath Stated Complaint: DIFFICULTY BREATHING Time Seen by Provider: 05/01/17 10:01 Mode of Arrival: Wheelchair Information source: Patient Notes: 61-year-old female history CHF presents with complaints of CHF exacerbation. Patient notes she has been short of breath unable to lay flat feels fluid is building up. She notes she was at [facility] and then was recently here just discharge on Sunday, patient states that she was not discharged home with any Lasix I have greeted and performed a rapid initial assessment of this patient. A comprehensive ED assessment and evaluation of the patient, analysis of test results and completion of the medical decision making process will be conducted by additional ED providers. PHYSICAL EXAMINATION: GENERAL: Well-appearing, well-nourished and in no acute distress. HEAD: Atraumatic, normocephalic. EYES: Pupils equal round extraocular movements intact, conjunctiva are normal. ENT: Nares patent NECK: Normal range of motion LUNGS: crackles at the base but no resp distress Musculoskeletal: edemeteous NEUROLOGICAL: Normal speech, normal gait. PSYCH: Normal mood, normal affect. SKIN: Warm, Dry, normal turgor, no rashes or lesions noted. TRAVEL OUTSIDE OF THE [place] IN LAST 30 DAYS: No - Related Data Allergies/Adverse Reactions: pregabalin [From Lyrica] Allergy (Verified 08/11/16 10:39) Past Medical History - Past Medical History Cardiac Medical History: Reports: Hx Congestive Heart Failure, Hx Coronary Artery Disease, Hx Heart Attack, Hx Hypercholesterolemia, Hx Hypertension, Hx Peripheral Vascular Disease Denies: Hx Atrial Fibrillation, Hx Pulmonary Embolism, Hx Heart Murmur Pulmonary Medical History: Reports: Hx Bronchitis Denies: Hx Asthma, Hx COPD, Hx Pneumonia, Hx Respiratory Failure, Hx Sleep Apnea, Hx Tuberculosis Neurological Medical History: Reports: Hx Cerebrovascular Accident - 2007. Denies: Hx Seizures Endocrine Medical History: Reports: Hx Diabetes Mellitus Type 1, Hx Diabetes Mellitus Type 2. Denies: Hx Graves' Disease, Hx Hyperthyroidism, Hx Hypothyroidism Renal/ Medical History: Denies: Hx End Stage Renal Disease, Hx Kidney Stones, Hx Ovarian Cysts, Hx Peritoneal Dialysis, Hx Pelvic Inflammatory Disease Malignancy Medical History: Denies: Hx Breast Cancer, Hx Cervical Cancer, Hx Leukemia, Hx Lung Cancer, Hx Ovarian Cancer GI Medical History: Reports: Hx Diverticulitis - diverticulosis. Denies: Hx Crohn's Disease, Hx Gastroesophageal Reflux Disease, Hx Hiatal Hernia, Hx Irritable Bowel, Hx Liver Failure, Hx Pancreatitis, Hx Ulcer Musculoskeltal Medical History: Denies Hx Arthritis, Denies Hx Fibromyalgia, Denies Hx Multiple Sclerosis, Denies Hx Muscular Dystrophy Skin Medical History: Denies Hx MRSA Psychiatric Medical History: Denies: Hx Bipolar Disorder, Hx Dementia, Hx Depression, Hx Post Traumatic Stress Disorder, Hx Schizophrenia Traumatic Medical History: Denies: Hx Fractures Infectious Medical History: Denies: Hx HIV Past Surgical History: Reports: Hx Cardiac Surgery - Quadruple Bypass, Hx Coronary Artery Bypass Graft - July 31 2011, Hx Tonsillectomy, Hx Vascular Surgery. Denies: Hx Abdominal Surgery, Hx Appendectomy, Hx Bowel Surgery, Hx Cardiac Catheterization, Hx Section, Hx Cholecystectomy, Hx Colostomy, Hx Gastric Bypass Surgery, Hx Herniorrhaphy, Hx Hysterectomy, Hx Mastectomy, Hx Neurologic Surgery, Hx Nose Surgery, Hx Open Heart Surgery, Hx Oral Surgery, Hx Pacemaker, Hx Thyroid Surgery, Hx Tubal Ligation - Immunizations Immunizations up to date: No Hx Diphtheria, Pertussis, Tetanus Vaccination: Yes History of Influenza Vaccine for 02/2017 - 07/2017 Season: Yes Physical Exam - Vital signs Vitals: Temp Pulse Resp BP Pulse Ox 99.0 F 85 16 175/97 H 96 05/01/17 09:22 05/01/17 09:22 05/01/17 09:22 05/01/17 09:22 05/01/17 09:22 Course - Vital Signs Vital signs: Temp Pulse Resp BP Pulse Ox 99.0 F 85 16 175/97 H 96 05/01/17 09:22 05/01/17 09:22 05/01/17 09:22 05/01/17 09:22 05/01/17 09:22
--- NOTE | 2017-05-01 10:54 | EKG REPORT ---
SEVERITY:- ABNORMAL ECG - SINUS RHYTHM PROBABLE LEFT ATRIAL ABNORMALITY LVH WITH SECONDARY REPOLARIZATION ABNORMALITY : Confirmed by: Charlette Harding MD 01-May-2017 10:54:17
--- NOTE | 2017-05-01 11:06 | RADIOLOGY REPORT (SQ) ---
EXAM DESCRIPTION: CHEST SINGLE VIEW COMPLETED DATE/TIME: 05/01/2017 10:56 am REASON FOR STUDY: chf exacerbation COMPARISON: 04/18/2017 EXAM PARAMETERS: NUMBER OF VIEWS: One view. TECHNIQUE: Single frontal radiographic view of the chest acquired. RADIATION DOSE: NA LIMITATIONS: None. FINDINGS: LUNGS AND PLEURA: No opacities, masses or pneumothorax. No pleural effusion. MEDIASTINUM AND HILAR STRUCTURES: No masses. Contour normal. HEART AND VASCULAR STRUCTURES: Cardiac silhouette is enlarged. Vasculature is within normal limits. Previous noted congestive failure has resolved. BONES: No acute findings. HARDWARE: Status post midline sternotomy. OTHER: No other significant finding. IMPRESSION: Cardiomegaly without evidence of acute cardiopulmonary disease. TECHNICAL DOCUMENTATION: JOB ID: [id number] [employer]- All Rights Reserved
[2017-05-01 11:46] LABS: ABSOLUTE BASOPHILS # (AUTO) 0.1 10^3/uL (0.0-0.2); ABSOLUTE EOSINOPHILS # (AUTO) 0.1 10^3/uL (0.0-0.6); ABSOLUTE LYMPHOCYTES (AUTO) 2.6 10^3/uL (0.5-4.7); ABSOLUTE MONOCYTES (AUTO) 0.8 10^3/uL (0.1-1.4); ABSOLUTE NEUT (AUTO) 7.3 10^3/uL (1.7-8.2); BASOPHILS % (AUTO) 0.5 % (0-2); EOSINOPHILS % (AUTO) 1.3 % (0-6); HEMATOCRIT 35.5 % (36.0-47.0); HEMOGLOBIN 11.2 g/dL (12.0-15.5); HGB HCT DIFFERENCE -1.9; LYMPHOCYTES % (AUTO) 23.5 % (13-45); MEAN CORPUSCULAR HEMOGLOBIN 28.6 pg (27.0-33.4); MEAN CORPUSCULAR HGB CONC 31.6 g/dL (32.0-36.0); MEAN CORPUSCULAR VOLUME 91 fl (80-97); MONOCYTES % (AUTO) 7.5 % (3-13); RED BLOOD COUNT 3.93 10^6/uL (3.72-5.28); SEGMENTED NEUTROPHILS % (AUTO) 67.2 % (42-78); WHITE BLOOD COUNT 10.9 10^3/uL (4.0-10.5)
--- NOTE | 2017-05-01 11:58 | ER Document Report ---
ED General - General Chief Complaint: Shortness Of Breath Stated Complaint: DIFFICULTY BREATHING Time Seen by Provider: 05/01/17 10:01 Mode of Arrival: Medic Information source: Patient Notes: 61-year-old diabetic, CHF, stroke, htn, hyperlipedemia, renal insufficiency, peripheral vascular disease, [place], CAD with bypass patient complaining of: 1. not urinating as much urine as she should, 2. alternating right or left chest pressure that waxes and wanes but never goes away since early Sunday morning ( worse when supine), and 3. not being able to take deep breaths. Recently discharged from [facility] on 04-27 for CHF exacerbation. She was supposed to take 40 mg of furosemide daily per Dr. Giraldo for several months and she was not given a prescription for that when she was discharged. She had vascular surgery in her left lower leg to try to save her left foot early March and [facility]. TRAVEL OUTSIDE OF THE [place] IN LAST 30 DAYS: No - Related Data Allergies/Adverse Reactions: pregabalin [From Lyrica] Allergy (Verified 08/11/16 10:39) Past Medical History - General Information source: Patient - Social History Smoking Status: Former Smoker Chew tobacco use (# tins/day): No Frequency of alcohol use: None Drug Abuse: None Lives with: Family Family History: Reviewed & Not Pertinent, CAD, Hyperlipidemia, Hypertension Patient has suicidal ideation: No Patient has homicidal ideation: No - Past Medical History Cardiac Medical History: Reports: Hx Congestive Heart Failure, Hx Coronary Artery Disease, Hx Heart Attack, Hx Hypercholesterolemia, Hx Hypertension, Hx Peripheral Vascular Disease Pulmonary Medical History: Reports: Hx Bronchitis Neurological Medical History: Reports: Hx Cerebrovascular Accident - 2007 Endocrine Medical History: Reports: Hx Diabetes Mellitus Type 1, Hx Diabetes Mellitus Type 2 GI Medical History: Reports: Hx Diverticulitis - diverticulosis Past Surgical History: Reports: Hx Cardiac Surgery - Quadruple Bypass, Hx Coronary Artery Bypass Graft - July 31 2011, Hx Tonsillectomy, Hx Vascular Surgery - Immunizations Immunizations up to date: No Hx Diphtheria, Pertussis, Tetanus Vaccination: Yes Hx Pneumococcal Vaccination: 02/04/11 Review of Systems - Review of Systems Constitutional: No symptoms reported EENT: No symptoms reported Cardiovascular: No symptoms reported Respiratory: See HPI Gastrointestinal: No symptoms reported Genitourinary: See HPI Female Genitourinary: No symptoms reported Musculoskeletal: No symptoms reported Skin: No symptoms reported Hematologic/Lymphatic: No symptoms reported Neurological/Psychological: No symptoms reported Physical Exam - Vital signs Vitals: Temp Pulse Resp BP Pulse Ox 99.0 F 85 16 175/97 H 96 05/01/17 09:22 05/01/17 09:22 05/01/17 09:22 05/01/17 09:22 05/01/17 09:22 Interpretation: Normal - General General appearance: Appears well, Alert In distress: None - HEENT Head: Normocephalic, Atraumatic Eyes: Normal Conjunctiva: Normal Pupils: PERRL Tympanic membrane: Normal Mouth/Lips: Normal Pharynx: Normal Neck: Supple. No: Lymphadenopathy - Respiratory Respiratory status: No respiratory distress Chest status: Nontender Breath sounds: Normal Chest palpation: Normal - Cardiovascular Rhythm: Regular Heart sounds: Normal auscultation Murmur: No - Abdominal Inspection: Normal Distension: No distension Bowel sounds: Normal Tenderness: Nontender. No: Tender Organomegaly: No organomegaly - Back Back: Normal, Nontender. No: CVA tenderness - Extremities General upper extremity: Normal inspection, Nontender, Normal color, Normal ROM , Normal temperature General lower extremity: Normal inspection - right, Nontender, Normal color, Normal ROM, Normal temperature, Normal weight bearing. No: Edema, Mark's sign Notes: left lower leg with post op bandage that she will not allow me to remove - Neurological Neuro grossly intact: Yes Cognition: Normal Orientation: AAOx4 [place] Coma Scale Eye Opening: Spontaneous Amber Coma Scale Verbal: Oriented [place] Coma Scale Motor: Obeys Commands Amber Coma Scale Total: 15 Speech: Normal Motor strength normal: LUE, RUE, LLE, RLE Sensory: Normal - Psychological Associated symptoms: Normal affect, Normal mood - Skin Skin Temperature: Warm Skin Moisture: Dry Skin Color: Normal Skin irregularity: negative: Rash Course - Re-evaluation Re-evalutation: 05/01/17 12:03 Nurses are unable to obtain IV access for the CTA I did discuss this with Dr. Lilliam medrano who ordered the test and we will get a d-dimer first. EKG NSR. 05/01/17 15:40 VQ scan was negative. Chem labs have been redrawn . Chest x-ray with cardiomegaly with no CHF. 05/01/17 17:[address] arce since the vq scan is negative restart her on the lasix 40mg, BNP is 5710 which is higher than when she was discharged on the . torponin negative, no pneumonia, no chf on chest xray. - Vital Signs Vital signs: Temp Pulse Resp BP Pulse Ox 99.0 F 85 20 123/100 H 94 05/01/17 09:22 05/01/17 09:22 05/01/17 17:01 05/01/17 17:00 05/01/17 17:01 - Laboratory Result Diagrams: 05/01/17 11:25 05/01/17 15:21 Laboratory results interpreted by me: 05/01/17 05/01/17 05/01/17 11:25 11:25 15:21 WBC 10.9 H Hgb 11.2 L Hct 35.5 L MCHC 31.6 L RDW 15.0 H D-Dimer 2.99 H Glucose 250 H Alkaline Phosphatase 134 H NT-Pro-B Natriuret Pep Albumin 3.4 L Urine Protein Urine Glucose (UA) 05/01/17 05/01/17 15:21 15:35 WBC Hgb Hct MCHC RDW D-Dimer Glucose Alkaline Phosphatase NT-Pro-B Natriuret Pep 5710 H Albumin Urine Protein >=500 H Urine Glucose (UA) >=500 H - EKG Interpretation by Me EKG shows normal: Sinus rhythm Rate: Normal Rhythm: NSR Discharge - Discharge Clinical Impression: Decreased urine output Chest pain Qualifiers: Chest pain type: unspecified Qualified Code(s): R07.9 - Chest pain, unspecified CHF (congestive heart failure) Qualifiers: Congestive heart failure type: unspecified congestive heart failure type Congestive heart failure chronicity: chronic Qualified Code(s): I50.9 - Heart failure, unspecified Condition: Good Disposition: HOME, SELF-CARE Instructions: Congestive Heart Failure ([facility]), Chest Pain of Unclear Cause ([facility]) Additional Instructions: see dr anderson this week for follow up to er if worsening symptoms lasix 40mg daily, 1 given tonight, then each morning Prescriptions: Furosemide [Lasix 40 mg Tablet] 40 mg PO QAM #30 tablet
--- NOTE | 2017-05-01 14:55 | RADIOLOGY REPORT (SQ) ---
EXAM DESCRIPTION: NM LUNG VENT/PERF SCAN COMPLETED DATE/TIME: 05/01/2017 2:43 pm REASON FOR STUDY: chest pain elevated d dimer COMPARISON: Chest x-ray dated 05/01/2017. RADIONUCLIDE AND DOSE: 5.46 millicuries TC-99m MAA Intravenous 31.9 millicuries TC-99m DTPA Inhaled aerosol TECHNIQUE: Two views of the lungs acquired post ventilation of DTPA aerosol. Eight views of the pete gs acquired following injection of MAA. LIMITATIONS: None. FINDINGS: VENTILATION: Symmetric and homogeneous distribution of DTPA aerosol during ventilatory pha se. No significant areas of photopenia. PERFUSION: Perfusion images with normal homogenous activity and no wedge-shaped or segmental defects. No ventilation-perfusion mismatches. OTHER: No other significant finding. IMPRESSION: NORMAL VENTILATION-PERFUSION LUNG SCAN. NEGATIVE FOR PULMONARY EMBOLI. TECHNICAL DOCUMENTATION: JOB ID: [id number] [employer]- All Rights Reserved
[2017-05-01] MEDS ORDERED: ACETAMINOPHEN 325 MG TABLET PO ONE (15:33)
[2017-05-01 15:52] LABS: ALANINE AMINOTRANSFERASE 24 U/L (9-52); ALBUMIN 3.4 g/dL (3.5-5.0); ALKALINE PHOSPHATASE 134 U/L (38-126); ANION GAP 8 (5-19); ASPARTATE AMINO TRANSFERASE 14 U/L (14-36); BILIRUBIN,DIRECT 0.2 mg/dL (0.0-0.4); BILIRUBIN,TOTAL 0.7 mg/dL (0.2-1.3); BLOOD UREA NITROGEN 11 mg/dL (7-20); CALCIUM 9.9 mg/dL (8.4-10.2); CARBON DIOXIDE 29 mmol/L (22-30); CHLORIDE 106 mmol/L (98-107); CREATINE KINASE 46 U/L (30-135); CREATININE RESULT 0.63 mg/dL (0.52-1.25); GLUCOSE 250 mg/dL (75-110); SODIUM 142.6 mmol/L (137-145); TOTAL PROTEIN 6.9 g/dL (6.3-8.2)
[2017-05-01 16:08] LABS: APPEARANCE,URINE CLEAR; BILIRUBIN,URINE NEGATIVE (NEGATIVE); GLUCOSE, URINE >=500 mg/dL (NEGATIVE); KETONES,URINE NEGATIVE (NEGATIVE); LEUKOCYTE ESTERASE,URINE NEGATIVE (NEGATIVE); NITRITE,URINE NEGATIVE (NEGATIVE); PROTEIN,URINE >=500 mg/dL (NEGATIVE); URINE SPECIFIC GRAVITY 1.012; UROBILINOGEN,URINE NEGATIVE mg/dL (<2.0)
[2017-05-01 16:08] LABS: CREATINE KINASE MB 0.72 ng/mL (<4.55); TROPONIN I 0.019 ng/mL
[2017-05-01] MEDS ORDERED: FUROSEMIDE 40 MG TABLET PO ONE (17:02)
[2017-05-01 17:08] VITALS: BP 123/100
== END 2017-05-01 17:37 | disposition home or self-care (01) ==
LOC: ER 09:00
DX: I11.0 Hypertensive heart disease with heart failure (principal); I50.9 Heart failure, unspecified; R39.89 Other symptoms and signs involving the genitourinary system; R07.89 Other chest pain; I25.2 Old myocardial infarction; I25.10 Atherosclerotic heart disease of native coronary artery without angina pectoris; E11.51 Type 2 diabetes mellitus with diabetic peripheral angiopathy without gangrene; Z95.1 Presence of aortocoronary bypass graft; Z88.6 Allergy status to analgesic agent; Z98.890 Other specified postprocedural states
CPT/HCPCS: 93005; 99285; 36415; 87040; 82553; 82550; 85025; 80053; 81001; 84484; 85379; 83880; 71010; 78582; 93010; A9540; A9567; A9270; Q9969

== ENCOUNTER 2017-05-18 17:23 | Emergency (ER) | payer MEDICARE, MEDICAID ==
--- NOTE | 2017-05-18 17:54 | ER Document Report ---
ED Medical Screen (RME) - General Chief Complaint: High Blood Pressure Stated Complaint: BLOOD PRESSURE ISSUES Time Seen by Provider: 05/18/17 17:49 Notes: 61-year-old female here with complaints of swelling in her left leg that has been ongoing ever since they took off the wound VAC from her left heel diabetic wound. She denies any drainage. She denies any prior history of DVT. She is a poor historian and difficult to get an accurate history/review of systems. EXAM Bilateral lower extremity swelling TRAVEL OUTSIDE OF THE [place] IN LAST 30 DAYS: No - Related Data Allergies/Adverse Reactions: pregabalin [From Lyrica] Allergy (Verified 05/18/17 17:24) Past Medical History - Social History Chew tobacco use (# tins/day): No Frequency of alcohol use: None Drug Abuse: None - Past Medical History Cardiac Medical History: Reports: Hx Congestive Heart Failure, Hx Coronary Artery Disease, Hx Heart Attack, Hx Hypercholesterolemia, Hx Hypertension, Hx Peripheral Vascular Disease Denies: Hx Atrial Fibrillation, Hx Pulmonary Embolism, Hx Heart Murmur Pulmonary Medical History: Reports: Hx Bronchitis Denies: Hx Asthma, Hx COPD, Hx Pneumonia, Hx Respiratory Failure, Hx Sleep Apnea, Hx Tuberculosis Neurological Medical History: Reports: Hx Cerebrovascular Accident - 2007. Denies: Hx Seizures Endocrine Medical History: Reports: Hx Diabetes Mellitus Type 1, Hx Diabetes Mellitus Type 2. Denies: Hx Graves' Disease, Hx Hyperthyroidism, Hx Hypothyroidism Renal/ Medical History: Denies: Hx End Stage Renal Disease, Hx Kidney Stones, Hx Ovarian Cysts, Hx Peritoneal Dialysis, Hx Pelvic Inflammatory Disease Malignancy Medical History: Denies: Hx Breast Cancer, Hx Cervical Cancer, Hx Leukemia, Hx Lung Cancer, Hx Ovarian Cancer GI Medical History: Reports: Hx Diverticulitis - diverticulosis. Denies: Hx Crohn's Disease, Hx Gastroesophageal Reflux Disease, Hx Hiatal Hernia, Hx Irritable Bowel, Hx Liver Failure, Hx Pancreatitis, Hx Ulcer Musculoskeltal Medical History: Denies Hx Arthritis, Denies Hx Fibromyalgia, Denies Hx Multiple Sclerosis, Denies Hx Muscular Dystrophy Skin Medical History: Denies Hx MRSA Psychiatric Medical History: Denies: Hx Bipolar Disorder, Hx Dementia, Hx Depression, Hx Post Traumatic Stress Disorder, Hx Schizophrenia Traumatic Medical History: Denies: Hx Fractures Infectious Medical History: Denies: Hx HIV Past Surgical History: Reports: Hx Cardiac Surgery - Quadruple Bypass, Hx Coronary Artery Bypass Graft - July 31 2011, Hx Tonsillectomy, Hx Vascular Surgery. Denies: Hx Abdominal Surgery, Hx Appendectomy, Hx Bowel Surgery, Hx Cardiac Catheterization, Hx Section, Hx Cholecystectomy, Hx Colostomy, Hx Gastric Bypass Surgery, Hx Herniorrhaphy, Hx Hysterectomy, Hx Mastectomy, Hx Neurologic Surgery, Hx Nose Surgery, Hx Open Heart Surgery, Hx Oral Surgery, Hx Pacemaker, Hx Thyroid Surgery, Hx Tubal Ligation - Immunizations Immunizations up to date: No Hx Diphtheria, Pertussis, Tetanus Vaccination: Yes History of Influenza Vaccine for 02/2017 - 07/2017 Season: Yes Physical Exam - Vital signs Vitals: Temp Pulse Resp BP Pulse Ox 98.4 F 81 12 177/80 H 93 05/18/17 17:29 05/18/17 17:29 05/18/17 17:29 05/18/17 17:29 05/18/17 17:29 Course - Vital Signs Vital signs: Temp Pulse Resp BP Pulse Ox 98.4 F 81 12 177/80 H 93 05/18/17 17:29 05/18/17 17:29 05/18/17 17:29 05/18/17 17:29 05/18/17 17:29
[2017-05-18 18:41] LABS: ANION GAP 12 (5-19); BLOOD UREA NITROGEN 11 mg/dL (7-20); CALCIUM 10.3 mg/dL (8.4-10.2); CARBON DIOXIDE 30 mmol/L (22-30); CHLORIDE 101 mmol/L (98-107); GLUCOSE 159 mg/dL (75-110); POTASSIUM 3.6 mmol/L (3.6-5.0); SODIUM 142.6 mmol/L (137-145)
[2017-05-18 19:50] LABS: ABSOLUTE EOSINOPHILS # (AUTO) 0.2 10^3/uL (0.0-0.6); ABSOLUTE LYMPHOCYTES (AUTO) 3.1 10^3/uL (0.5-4.7); ABSOLUTE MONOCYTES (AUTO) 0.7 10^3/uL (0.1-1.4); ABSOLUTE NEUT (AUTO) 4.9 10^3/uL (1.7-8.2); BASOPHILS % (AUTO) 0.5 % (0-2); EOSINOPHILS % (AUTO) 2.3 % (0-6); HEMATOCRIT 33.6 % (36.0-47.0); LYMPHOCYTES % (AUTO) 35.2 % (13-45); MEAN CORPUSCULAR HEMOGLOBIN 28.3 pg (27.0-33.4); MEAN CORPUSCULAR HGB CONC 32.6 g/dL (32.0-36.0); MONOCYTES % (AUTO) 7.4 % (3-13); PLATELET COUNT 345 10^3/uL (150-450); RED BLOOD COUNT 3.86 10^6/uL (3.72-5.28); RED CELL DISTRIBUTION WIDTH 15.3 % (11.5-14.0); SEGMENTED NEUTROPHILS % (AUTO) 54.6 % (42-78); TOTAL CELLS COUNTED % (AUTO) 100 %; WHITE BLOOD COUNT 8.9 10^3/uL (4.0-10.5)
[2017-05-18 19:51] LABS: MEAN CORPUSCULAR VOLUME 87 fl (80-97)
--- NOTE | 2017-05-18 22:21 | ER Document Report ---
ED General - General Chief Complaint: High Blood Pressure Stated Complaint: BLOOD PRESSURE ISSUES Time Seen by Provider: 05/18/17 17:49 Mode of Arrival: Ambulatory Information source: Patient Notes: 61-year-old female history of diabetic heel ulcer which has been treated by wound care for the past year and half presents with concerns of pain and foul smell from the wound. Patient notes the pain felt small been ongoing for the past 5-6 days. She denies any fevers or chills denies any nausea vomiting or diarrhea wound was recently evaluated and wrapped TRAVEL OUTSIDE OF THE [place] IN LAST 30 DAYS: No - HPI Onset: Other Onset/Duration: Persistent Quality of pain: Achy Severity: Mild Pain Level: 1 Associated symptoms: Other Exacerbated by: Denies Relieved by: Denies Similar symptoms previously: Yes Recently seen / treated by doctor: Yes - Related Data Allergies/Adverse Reactions: pregabalin [From Lyrica] Allergy (Verified 05/18/17 17:24) Past Medical History - Social History Smoking Status: Former Smoker Cigarette use (# per day): No Chew tobacco use (# tins/day): No Smoking Education Provided: No Frequency of alcohol use: None Drug Abuse: None Family History: Reviewed & Not Pertinent, CAD, Hyperlipidemia, Hypertension Patient has suicidal ideation: No Patient has homicidal ideation: No - Past Medical History Cardiac Medical History: Reports: Hx Congestive Heart Failure, Hx Coronary Artery Disease, Hx Heart Attack, Hx Hypercholesterolemia, Hx Hypertension, Hx Peripheral Vascular Disease Denies: Hx Atrial Fibrillation, Hx Pulmonary Embolism, Hx Heart Murmur Pulmonary Medical History: Reports: Hx Bronchitis Denies: Hx Asthma, Hx COPD, Hx Pneumonia, Hx Respiratory Failure, Hx Sleep Apnea, Hx Tuberculosis Neurological Medical History: Reports: Hx Cerebrovascular Accident - 2007. Denies: Hx Seizures Endocrine Medical History: Reports: Hx Diabetes Mellitus Type 1, Hx Diabetes Mellitus Type 2. Denies: Hx Graves' Disease, Hx Hyperthyroidism, Hx Hypothyroidism Renal/ Medical History: Denies: Hx End Stage Renal Disease, Hx Kidney Stones, Hx Ovarian Cysts, Hx Peritoneal Dialysis, Hx Pelvic Inflammatory Disease Malignancy Medical History: Denies: Hx Breast Cancer, Hx Cervical Cancer, Hx Leukemia, Hx Lung Cancer, Hx Ovarian Cancer GI Medical History: Reports: Hx Diverticulitis - diverticulosis. Denies: Hx Crohn's Disease, Hx Gastroesophageal Reflux Disease, Hx Hiatal Hernia, Hx Irritable Bowel, Hx Liver Failure, Hx Pancreatitis, Hx Ulcer Musculoskeltal Medical History: Denies Hx Arthritis, Denies Hx Fibromyalgia, Denies Hx Multiple Sclerosis, Denies Hx Muscular Dystrophy Skin Medical History: Denies Hx MRSA Psychiatric Medical History: Denies: Hx Bipolar Disorder, Hx Dementia, Hx Depression, Hx Post Traumatic Stress Disorder, Hx Schizophrenia Traumatic Medical History: Denies: Hx Fractures Infectious Medical History: Denies: Hx HIV Past Surgical History: Reports: Hx Cardiac Surgery - Quadruple Bypass, Hx Coronary Artery Bypass Graft - July 31 2011, Hx Tonsillectomy, Hx Vascular Surgery. Denies: Hx Abdominal Surgery, Hx Appendectomy, Hx Bowel Surgery, Hx Cardiac Catheterization, Hx Section, Hx Cholecystectomy, Hx Colostomy, Hx Gastric Bypass Surgery, Hx Herniorrhaphy, Hx Hysterectomy, Hx Mastectomy, Hx Neurologic Surgery, Hx Nose Surgery, Hx Open Heart Surgery, Hx Oral Surgery, Hx Pacemaker, Hx Thyroid Surgery, Hx Tubal Ligation - Immunizations Immunizations up to date: No Hx Diphtheria, Pertussis, Tetanus Vaccination: Yes Hx Pneumococcal Vaccination: 02/04/11 Review of Systems - Review of Systems Notes: REVIEW OF SYSTEMS: CONSTITUTIONAL : Denies fever, chills, or sweats. Denies recent illness. EENT: Denies eye, ear, throat, or mouth pain or symptoms. Denies nasal or sinus congestion or discharge. Denies throat, tongue, or mouth swelling or difficulty swallowing. CARDIOVASCULAR: Denies chest pain. Denies palpitations or racing or irregular heart beat. Denies ankle edema. RESPIRATORY: Denies cough, cold, or chest congestion. Denies shortness of breath, difficulty breathing, or wheezing. GASTROINTESTINAL: Denies abdominal pain or distention. Denies nausea, vomiting , or diarrhea. Denies blood in vomitus, stools, or per rectum. Denies black, tarry stools. Denies constipation. GENITOURINARY: Denies difficulty urinating, painful urination, burning, frequency, blood in urine, or discharge. FEMALE GENITOURINARY: Denies vaginal bleeding, heavy or abnormal periods, irregular periods. Denies vaginal discharge or odor. MUSCULOSKELETAL: Denies back or neck pain or stiffness. Denies joint pain or swelling. SKIN: Admits to heel ulceration HEMATOLOGIC : Denies easy bruising or bleeding. LYMPHATIC: Denies swollen, enlarged glands. NEUROLOGICAL: Denies confusion or altered mental status. Denies passing out or loss of consciousness. Denies dizziness or lightheadedness. Denies headache. Denies weakness or paralysis or loss of use of either side. Denies problems with gait or speech. Denies sensory loss, numbness, or tingling. Denies seizures. PSYCHIATRIC: Denies anxiety or stress. Denies depression, suicidal ideation, or homicidal ideation. ALL OTHER SYSTEMS REVIEWED AND NEGATIVE. PHYSICAL EXAMINATION: GENERAL: Well-appearing, well-nourished and in no acute distress. HEAD: Atraumatic, normocephalic. EYES: Pupils equal round and reactive to light, extraocular movements intact, conjunctiva are normal. ENT: Nares patent, oropharynx clear without exudates. Moist mucous membranes. NECK: Normal range of motion, supple without lymphadenopathy LUNGS: Breath sounds clear to auscultation bilaterally and equal. No wheezes rales or rhonchi. HEART: Regular rate and rhythm without murmurs ABDOMEN: Soft, nontender, nondistended abdomen. No guarding, no rebound. No masses appreciated. Female : deferred Musculoskeletal: Normal range of motion, no pitting or edema. No cyanosis. NEUROLOGICAL: Cranial nerves grossly intact. Normal speech, normal gait. Normal sensory, motor exams PSYCH: Normal mood, normal affect. SKIN: Ulceration noted of the left heel with no bony involvement there is a foul smell to it Dictation was performed using [employer] voice recognition software Physical Exam - Vital signs Vitals: Temp Pulse Resp BP Pulse Ox 98.4 F 81 12 177/80 H 93 05/18/17 17:29 05/18/17 17:29 05/18/17 17:29 05/18/17 17:29 05/18/17 17:29 Course - Re-evaluation Re-evalutation: X-ray noted no acute abnormality, DVT ultrasound was negative, lab work otherwise is quite benign, I did contact the surgeon to evaluate the wound 05/18/17 22:[address] Patel, he does not beleive it is infected, will treat with pain control 05/19/17 01:20 Given that it does not appear to be infected I will have the patient follow-up with wound care with close follow-up. Very strict return precautions have been provided if symptoms worsen if there is any bony involvement fevers or any other concerns After performing a Medical Screening Examination, I estimate there is LOW risk for OPEN FRACTURE, COMPARTMENT SYNDROME, TENDON RUPTURE, ACUTE NEUROVASCULAR INJURY, or RETAINED FOREIGN BODY, thus I consider the discharge disposition reasonable. Also, there is no evidence or peritonitis, sepsis, or toxicity. I have reevaluated this patient multiple times and no significant life threatening changes are noted. The patient and I have discussed the diagnosis and risks, and we agree with discharging home with close follow-up with the understanding that symptoms and presentations can change. We also discussed returning to the Emergency Department immediately if new or worsening symptoms occur. We have discussed the symptoms which are most concerning (e.g., changing or worsening pain, fever, numbness, weakness, cool or painful digits) that necessitate immediate return. - Vital Signs Vital signs: Temp Pulse Resp BP Pulse Ox 98.4 F 81 12 177/80 H 93 05/18/17 17:29 05/18/17 17:29 05/18/17 17:29 05/18/17 17:29 05/18/17 17:29 - Laboratory Result Diagrams: 05/18/17 19:10 05/18/17 18:05 Laboratory results interpreted by me: 05/18/17 05/18/17 18:05 19:10 Hgb 11.0 L Hct 33.6 L RDW 15.3 H Glucose 159 H Calcium 10.3 H - Diagnostic Test Radiology reviewed: Image reviewed, Reports reviewed Discharge - Discharge Clinical Impression: Ulcer of left heel Qualifiers: Non-pressure ulcer stage: with fat layer exposed Qualified Code(s): L97.422 - Non-pressure chronic ulcer of left heel and midfoot with fat layer exposed Type 2 diabetes mellitus Qualifiers: Diabetes mellitus complication status: with skin complications Diabetes mellitus complication detail: with foot ulcer Diabetes mellitus custodial insulin use: with protective service specialist use Qualified Code(s): E11.621 - Type 2 diabetes mellitus with foot ulcer; L97.509 - Non-pressure chronic ulcer of other part of unspecified foot with unspecified severity; L97.509 - Non-pressure chronic ulcer of other part of unspecified foot with unspecified severity; L97.509 - Non -pressure chronic ulcer of other part of unspecified foot with unspecified severity; L97.509 - Non-pressure chronic ulcer of other part of unspecified foot with unspecified severity; Z79.4 - wicker molded candles (current) use of insulin; Z79.4 - half-way (current) use of insulin; Z79.4 - wicker molded candles (current) use of insulin; Z79.4 - wicker molded candles (current) use of insulin Condition: Stable Disposition: HOME, SELF-CARE Instructions: Diabetes ([facility]) Prescriptions: Oxycodone HCl/Acetaminophen [Percocet 5-325 mg Tablet] 1 - 2 tab PO Q4H PRN #15 tablet PRN Reason: Referrals: STEPHAN TAFOYA MD [Primary Care Provider] - Follow up as needed
[2017-05-18] MEDS ORDERED: OXYCODONE-ACETAMINOPHEN 5-325 MG TABLET PO ONE (22:38)
--- NOTE | 2017-05-18 22:57 | RADIOLOGY REPORT (SQ) ---
EXAM DESCRIPTION: OS CALCIS/HEEL LEFT COMPLETED DATE/TIME: 05/18/2017 10:49 pm REASON FOR STUDY: diabetic wound COMPARISON: None. NUMBER OF VIEWS: Two views. TECHNIQUE: Plantar and lateral images acquired of the left calcaneous. LIMITATIONS: None. FINDINGS: MINERALIZATION: Osteopenia. BONES: No acute fracture or dislocation. No worrisome bone lesions. JOINTS: No effusions. SOFT TISSUES: Large soft tissue defect along the plantar surface of the calcaneus. No foreign body. OTHER: No other significant finding. IMPRESSION: No plain radiographic evidence for osteomyelitis. Large soft tissue ulcer. TECHNICAL DOCUMENTATION: JOB ID: [id number] [employer]- All Rights Reserved
--- NOTE | 2017-05-18 23:08 | PDOC CONSULTATION ---
Consultation Consult Date: 05/18/17 Consult reason:: to r/o infection History of Present Illness Admission Date/PCP: STEPHAN TAFOYA History of Present Illness: JAVIER BURGER is a 61 year old female who had a left fem below knee bypass at [facility] in 2016 for a large left heel ulcer. Develooed an incisional wound left below knee treated with VAc. I did see her in the hospital for this in . The wound Vac was removed because the wound is getting a lot smaller. Patient was being seen at the wound care center for her left heel ulcer but patient apparently has been non-compliant. Patient brought to ER because of left leg swelling. I am being consulted to r/o infection. Past Medical History Cardiac Medical History: Reports: Congestive Heart Failure, Coronary Artery Disease, Myocardial Infarction, Hyperlipidema, Hypertension, Peripheral Vascular Disease Denies: Atrial Fibrillation, Pulmonary Embolism, Heart Murmur Pulmonary Medical History: Reports: Bronchitis Denies: Asthma, Chronic Obstructive Pulmonary Disease (COPD), Pneumonia, Respiratory Failure, Sleep Apnea, Tuberculosis Neurological Medical History: Denies: Seizures Endocrine Medical History: Reports: Diabetes Mellitus Type 1, Diabetes Mellitus Type 2 Denies: Hyperthyroidism, Hypothyroidism Renal/ Medical History: Denies: End Stage Renal Disease Malignancy Medical History: Denies: Breast Cancer, Cervical Cancer, Leukemia, Lung Cancer, Ovarian Cancer GI Medical History: Reports: Diverticulitis - diverticulosis Denies: Crohn's Disease, Gastroesophageal Reflux Disease, Hiatal Hernia Musculoskeltal Medical History: Denies: Arthritis, Fibromyalgia Psychiatric Medical History: Denies: Bipolar Disorder, Dementia, Depression, Post Traumatic Stress Disorder Hematology: Denies: Anemia, Hemophilia, Sickle Cell Disease Infectious Medical History: Denies: HIV Past Surgical History Past Surgical History: Reports: Coronary Artery Bypass Graft - July 31 2011, Tonsillectomy, Vascular Surgery Denies: Amputation, Appendectomy, Cardiac Catheterization, Section, Cholecystectomy, Colostomy, Gastric Bypass Surgery, Herniorrhaphy, Hysterectomy , Mastectomy, Pacemaker, Tubal Ligation Social History Smoking Status: Former Smoker Frequency of Alcohol Use: None Hx Recreational Drug Use: No Drugs: None Hx Prescription Drug Abuse: No Family History Family History: Reviewed & Not Pertinent, CAD, Hyperlipidemia, Hypertension Parental Family History Reviewed: Yes Children Family History Reviewed: No Sibling(s) Family History Reviewed.: No Medication/Allergy Home Medications: Aspirin [Aspirin EC] 81 mg PO DAILY 04/18/17 Atorvastatin Calcium [Lipitor 40 mg Tablet] 40 mg PO QHS 04/18/17 Clopidogrel Bisulfate [Plavix 75 mg Tablet] 75 mg PO DAILY 04/18/17 Collagenase Clostridium Hist. [Santyl Ointment 30 gm] 1 applic TP MOWEFR@2200 Gabapentin [Neurontin 300 mg Capsule] 300 mg PO Q6 04/18/17 Insulin Glargine,Hum.rec.anlog [Lantus Solostar] 30 unit SQ QHS 04/18/17 Insulin Lispro [Humalog Insulin 100 Unit/1 ml 3 ml Vial] 5 unit SUBCUT MEALS Lisinopril [Prinivil 40 mg Tablet] 40 mg PO DAILY 04/18/17 Metformin HCl [Glucophage] 850 mg PO BIDBS 04/18/17 Nitroglycerin [Nitro-Dur 10 mg (0.4MG/Hr) Transdermal Patch] 1 patch TD QAM Oxycodone HCl 15 mg PO Q6HP PRN 04/23/17 Carvedilol [Coreg 25 mg Tablet] 1 tab PO Q12 #60 tab 04/27/17 Furosemide [Lasix 40 mg Tablet] 40 mg PO QAM #30 tablet 05/01/17 Oxycodone HCl/Acetaminophen [Percocet 5-325 mg Tablet] 1 - 2 tab PO Q4H PRN #15 tablet 05/18/17 Allergies/Adverse Reactions: pregabalin [From Lyrica] Allergy (Verified 05/18/17 17:24) Review of Systems Review of Systems: c/o pains left leg . All her wounds are clean. The left lower leg incision which is just a 5mm wide shallow wound x 8 cm long. Left leg/foot warm.Her WBC is normal and afebrile. No calf tenderness. Has 1+ edema of both legs Physical Exam Vital Signs: Temp Pulse Resp BP Pulse Ox 98.4 F 81 12 177/80 H 93 05/18/17 17:29 05/18/17 17:29 05/18/17 17:29 05/18/17 17:29 05/18/17 17:29 Intake & Output 05/17/17 05/18/17 05/19/17 06:59 06:59 06:59 Weight 102.4 kg Exam: Left below knee incision wound is 5mm wide x 10 cm long very superficial. Left foot is warm.Has a relatively dry left heel ulcer about 5-6 cm. +1 edema of both feet/lower legs. Results Laboratory Results: 05/18/17 19:10 05/18/17 18:05 05/18/17 05/18/17 05/18/17 18:05 18:05 18:05 WBC Cancelled RBC Cancelled Hgb Cancelled Hct Cancelled MCV Cancelled MCH Cancelled MCHC Cancelled RDW Cancelled Plt Count Cancelled Seg Neutrophils % Cancelled Lymphocytes % Cancelled Monocytes % Cancelled Eosinophils % Cancelled Basophils % Cancelled Absolute Neutrophils Cancelled Absolute Lymphocytes Cancelled Absolute Monocytes Cancelled Absolute Eosinophils Cancelled Absolute Basophils Cancelled Sodium 142.6 Potassium 3.6 Chloride 101 Carbon Dioxide 30 Anion Gap 12 BUN 11 Creatinine 0.71 Est GFR ( Amer) > 60 Est GFR (Non-Af Amer) > 60 Glucose 159 H Lactic Acid 1.1 Calcium 10.3 H 05/18/17 19:10 WBC 8.9 RBC 3.86 Hgb 11.0 L Hct 33.6 L MCV 87 D MCH 28.3 MCHC 32.6 RDW 15.3 H Plt Count 345 Seg Neutrophils % 54.6 Lymphocytes % 35.2 Monocytes % 7.4 Eosinophils % 2.3 Basophils % 0.5 Absolute Neutrophils 4.9 Absolute Lymphocytes 3.1 Absolute Monocytes 0.7 Absolute Eosinophils 0.2 Absolute Basophils 0.0 Sodium Potassium Chloride Carbon Dioxide Anion Gap BUN Creatinine Est GFR ( Amer) Est GFR (Non-Af Amer) Glucose Lactic Acid Calcium Assessment & Plan - Time Time Spent: 30 to 50 Minutes - Plan Summary Plan Summary: No obvious infection. Graft appears patent with a warm left foot. OK to send home. Patient told the importance of keeping left leg elevated just above the heart. Follow up at [facility] vascular group( Dr Soto) If deveops fever/ ischemic foot/leg severe pains can come back to the ED. Try follow up again at the wound care center for left heal ulcer.
[2017-05-19 01:44] VITALS: BP 167/83
--- NOTE | 2017-05-19 08:04 | XCELERA REPORT ---
[address] [address] Lower Extremity Venous Evaluation Name: JAVIER BURGER Age: 61 yrs Gender: Female : 1955 Patient Status: Preadmit Patient Location: ER Study Date: 05/18/2017 08:38 PM Procedure: Color flow and duplex imaging of the veins of the left lower extremity as well as the right Common Femoral vein. Reason For Study: LLE swelling; eval DVT Ordering Physician: AGNES ABDI Performed By: Alyssa Crowe Right Sided Venous Evaluation The right common femoral vein is fully compressible. Spontaneous and phasic flow is present in the right common femoral vein. Left Sided Venous Evaluation Normal vessel filling wall to wall, compression and augmentation as well as Colour flow down to the infrageniculate veins. GSV not well visualized due to dressings, PNV,PTV not well visualized due to swelling. Interpretation Summary No duplex evidence of DVT or obstruction in the left lower extremity nor in the right Common Femoral vein. Some small veins not evaluated due to technical factors. : AGNES ABDI [place]
== END 2017-05-18 23:15 | disposition home or self-care (01) ==
LOC: ER 17:23
DX: E11.621 Type 2 diabetes mellitus with foot ulcer (principal); L97.422 Non-pressure chronic ulcer of left heel and midfoot with fat layer exposed; R03.0 Elevated blood-pressure reading, without diagnosis of hypertension
CPT/HCPCS: 99284; 36415; 87040; 83605; 85025; 80048; 93971 ×2; 73650; A9270

== ENCOUNTER 2017-06-04 14:28 | Inpatient (IN) | payer MEDICARE, MEDICAID ==
--- NOTE | 2017-06-04 14:52 | ER Document Report ---
ED General - General Stated Complaint: ALTERED MENTAL STATUS Mode of Arrival: Ambulatory Information source: Patient Notes: Patient is a 61-year-old female with a history of diabetes presents to the emergency department for difficulty walking secondary to an chronic ulcer on her left foot. Patient states that she has been going to a wound clinic for almost 2 years to manage her ucler as well as having home health care. Patient also complains of a cough. TRAVEL OUTSIDE OF THE [place] IN LAST 30 DAYS: No - Related Data Allergies/Adverse Reactions: pregabalin [From Lyrica] Allergy (Verified 05/18/17 17:24) Past Medical History - General Information source: Patient - Social History Smoking Status: Unknown if Ever Smoked Family History: Reviewed & Not Pertinent, CAD, Hyperlipidemia, Hypertension - Past Medical History Cardiac Medical History: Reports: Hx Congestive Heart Failure, Hx Coronary Artery Disease, Hx Heart Attack, Hx Hypercholesterolemia, Hx Hypertension, Hx Peripheral Vascular Disease Pulmonary Medical History: Reports: Hx Bronchitis Neurological Medical History: Reports: Hx Cerebrovascular Accident - 2007 Endocrine Medical History: Reports: Hx Diabetes Mellitus Type 1, Hx Diabetes Mellitus Type 2 GI Medical History: Reports: Hx Diverticulitis - diverticulosis Past Surgical History: Reports: Hx Cardiac Surgery - Quadruple Bypass, Hx Coronary Artery Bypass Graft - July 31 2011, Hx Tonsillectomy, Hx Vascular Surgery - Immunizations Immunizations up to date: No Hx Diphtheria, Pertussis, Tetanus Vaccination: Yes Hx Pneumococcal Vaccination: 02/04/11 Review of Systems - Review of Systems Constitutional: No symptoms reported EENT: No symptoms reported Cardiovascular: No symptoms reported Respiratory: See HPI, Cough Gastrointestinal: No symptoms reported Genitourinary: No symptoms reported Female Genitourinary: No symptoms reported Musculoskeletal: See HPI Skin: No symptoms reported Hematologic/Lymphatic: No symptoms reported Neurological/Psychological: No symptoms reported -: Yes All other systems reviewed and negative Physical Exam - Vital signs Vitals: Temp Pulse Resp BP Pulse Ox 98.7 F 97 16 171/68 H 95 06/04/17 14:35 06/04/17 14:35 06/04/17 14:35 06/04/17 14:35 06/04/17 14:35 - Notes Notes: GENERAL: Alert, interacts well. No acute distress. HEAD: Normocephalic, atraumatic. EYES: Pupils equal, round, and reactive to light. Extraocular movements intact. ENT: Oral mucosa moist, tongue midline. [ NECK: Full range of motion. Supple. Trachea midline. LUNGS: Good air movement, coarse breath sound. No wheezes, rales, or rhonchi. No respiratory distress. HEART: Regular rate and rhythm. No murmurs, gallops, or rubs. ABDOMEN: Soft, non-tender. Non-distended. Bowel sounds present in all 4 quadrants. EXTREMITIES: Moves all 4 extremities spontaneously. 8x8 cm diabetic ulcer on the heel of left foot which is tender to palpation, foul smelling, necrosis on border. Warm to touch. NEUROLOGICAL: Alert and oriented x3. Normal speech. PSYCH: Normal affect, normal mood. SKIN: Warm, dry, normal turgor. No rashes or lesions noted. Course - Vital Signs Vital signs: Temp Pulse Resp BP Pulse Ox 98.7 F 97 10 L 148/68 H 94 06/04/17 14:35 06/04/17 14:35 06/04/17 18:01 06/04/17 18:01 06/04/17 18:01 - Laboratory Result Diagrams: 06/04/17 15:25 06/04/17 15:25 Laboratory results interpreted by me: 06/04/17 06/04/17 15:25 15:25 Hgb 10.5 L Hct 32.7 L RDW 15.5 H ESR 90 H Carbon Dioxide 31 H Glucose 512 H* Alkaline Phosphatase 130 H C-Reactive Protein 75.1 H - Consults Dr. Moffett Time consulted: 15:07 - Accepts patient for admission. Discharge - Discharge Clinical Impression: PVD (peripheral vascular disease) Diabetic ulcer of heel Qualifiers: Diabetes mellitus type: type 2 Laterality: left Non-pressure ulcer stage: with necrosis of muscle Qualified Code(s): E11.621 - Type 2 diabetes mellitus with foot ulcer Condition: Stable Disposition: ADMITTED INPATIENT Admitting Provider: [facility] Unit Admitted: Medical Floor Scribe Documentation - Scribe Written by Trent:: Trent Fraser, 06/04/2017 15:06 acting as scribe for :: Zac
--- NOTE | 2017-06-04 15:31 | RADIOLOGY REPORT (SQ) ---
EXAM DESCRIPTION: FOOT LEFT COMPLETE COMPLETED DATE/TIME: 06/04/2017 3:21 pm REASON FOR STUDY: infection COMPARISON: 01/11/2017 NUMBER OF VIEWS: Three views. TECHNIQUE: AP, lateral and oblique radiographic images acquired of the left foot. LIMITATIONS: None. FINDINGS: MINERALIZATION: Severe osteopenia. BONES: No acute fracture. No obvious cortical disruption. JOINTS: No effusions. SOFT TISSUES: Extensive soft tissue defect along the plantar surface of the calcaneus. . OTHER: No other significant finding. IMPRESSION: Severe osteopenia without obvious osteomyelitis. Extensive soft tissue defect worse than previous. TECHNICAL DOCUMENTATION: JOB ID: [id number] [employer]- All Rights Reserved
[2017-06-04 15:38] LABS: ABSOLUTE EOSINOPHILS # (AUTO) 0.1 10^3/uL (0.0-0.6); ABSOLUTE LYMPHOCYTES (AUTO) 1.5 10^3/uL (0.5-4.7); ABSOLUTE MONOCYTES (AUTO) 0.7 10^3/uL (0.1-1.4); ABSOLUTE NEUT (AUTO) 4.6 10^3/uL (1.7-8.2); BASOPHILS % (AUTO) 0.7 % (0-2); EOSINOPHILS % (AUTO) 1.8 % (0-6); HEMATOCRIT 32.7 % (36.0-47.0); HEMOGLOBIN 10.5 g/dL (12.0-15.5); MEAN CORPUSCULAR VOLUME 87 fl (80-97); MONOCYTES % (AUTO) 10.7 % (3-13); PLATELET COUNT 281 10^3/uL (150-450); RED BLOOD COUNT 3.74 10^6/uL (3.72-5.28); RED CELL DISTRIBUTION WIDTH 15.5 % (11.5-14.0); SEGMENTED NEUTROPHILS % (AUTO) 65.8 % (42-78); TOTAL CELLS COUNTED % (AUTO) 100 %
[2017-06-04 16:15] LABS: ALANINE AMINOTRANSFERASE 14 U/L (9-52); ALBUMIN 3.6 g/dL (3.5-5.0); ALKALINE PHOSPHATASE 130 U/L (38-126); ANION GAP 6 (5-19); ASPARTATE AMINO TRANSFERASE 19 U/L (14-36); BILIRUBIN,DIRECT 0.3 mg/dL (0.0-0.4); BILIRUBIN,TOTAL 0.6 mg/dL (0.2-1.3); BLOOD UREA NITROGEN 18 mg/dL (7-20); C-REACTIVE PROTEIN 75.1 mg/L (<10.0); CALCIUM 9.7 mg/dL (8.4-10.2); CARBON DIOXIDE 31 mmol/L (22-30); CHLORIDE 101 mmol/L (98-107); POTASSIUM 3.6 mmol/L (3.6-5.0); TOTAL PROTEIN 7.7 g/dL (6.3-8.2)
[2017-06-04 16:22] LABS: ERYTHROCYTE SEDIMENTATION RATE 90 mm/hr (0-30)
[2017-06-04 16:41] LABS: GLUCOSE 512 mg/dL (75-110)
[2017-06-04] MEDS ORDERED: VANCOMYCIN HCL INJ 1000 MG VIAL IV ONE (17:05)
[2017-06-04] MEDS ORDERED: MORPHINE SULFATE 10 MG/ML INJ IV ONE (17:51)
[2017-06-04] MEDS ORDERED: GLUCAGON,HUMAN RECOMB 1 MG INJ IM PRN (18:13)
[2017-06-04] MEDS ORDERED: DEXTROSE 50%-WATER 25 GM/50 ML DISP.SYRIN IV PRN ×2 (18:13)
[2017-06-04] MEDS ORDERED: DEXTROSE 40% GEL 15 GM TUBE PO PRN ×2 (18:13)
[2017-06-04] MEDS ORDERED: OXYCODONE-ACETAMINOPHEN 5-325 MG TABLET PO PRN (18:14)
[2017-06-04] MEDS ORDERED: VANCOMYCIN HCL 0 MG in DEXTROSE 5%-WATER 250 ML IV NR (18:15)
[2017-06-04] MEDS ORDERED: INSULIN LISPRO 100 UNIT/ML 3 ML VIAL ONE (19:27)
[2017-06-04] MEDS ORDERED: LISINOPRIL 10 MG TABLET PO ONE (20:30)
[2017-06-04] MEDS: HEPARIN SOD (PORCINE) 5,000 UNIT/ML 1 ML SYRINGE SUBCUT SCH (21:45)
[2017-06-04] MEDS: PIPERACILLIN SODIUM/TAZOBACTAM 3.375 GM in NORMAL SALINE 100 ML IV SCH (21:50)
[2017-06-04] MEDS: VANCOMYCIN HCL 1,000 MG in DEXTROSE 5%-WATER 250 ML IV SCH (21:51)
[2017-06-04] MEDS ORDERED: (PENDING PHARMACY ID) (Carvedilol [Coreg 25 Mg Tablet] 1 TAB) PO SCH (22:00)
[2017-06-04] MEDS ORDERED: INSULIN GLARGINE,HUM.REC.ANLOG 300 UNIT/3 ML INSULN.PEN SUBCUT SCH (22:00)
[2017-06-04] MEDS ORDERED: INSULIN GLARGINE,HUM.REC.ANLOG 1,000 UNIT/10 ML UNIT SUBCUT ONE (23:15)
[2017-06-04] MEDS: CARVEDILOL 12.5 MG TABLET PO SCH (23:18)
[2017-06-04] MEDS: ATORVASTATIN CALCIUM 40 MG TABLET PO SCH (23:18)
[2017-06-04] MEDS: GABAPENTIN 300 MG CAPSULE PO SCH (23:24)
[2017-06-04] MEDS: COLLAGENASE CLOSTRIDIUM HIST. OINT 30 GM TP SCH (23:35)
[2017-06-05] MEDS: OXYCODONE HCL IR 5 MG TABLET PO PRN ×2 (01:17→10:56)
[2017-06-05] MEDS: PIPERACILLIN SODIUM/TAZOBACTAM 3.375 GM in NORMAL SALINE 100 ML IV SCH ×4 (03:57→21:37)
[2017-06-05] MEDS: GABAPENTIN 300 MG CAPSULE PO SCH ×3 (05:20→17:23)
[2017-06-05] MEDS: HEPARIN SOD (PORCINE) 5,000 UNIT/ML 1 ML SYRINGE SUBCUT SCH ×3 (05:21→23:07)
[2017-06-05] MEDS: LANSOPRAZOLE 30 MG TAB.RAP.DR PO SCH (05:21)
[2017-06-05 06:32] LABS: ALANINE AMINOTRANSFERASE 19 U/L (9-52); ALBUMIN 2.9 g/dL (3.5-5.0); ALKALINE PHOSPHATASE 106 U/L (38-126); ANION GAP 6 (5-19); ASPARTATE AMINO TRANSFERASE 12 U/L (14-36); BILIRUBIN,DIRECT 0.2 mg/dL (0.0-0.4); BILIRUBIN,TOTAL 0.7 mg/dL (0.2-1.3); BLOOD UREA NITROGEN 17 mg/dL (7-20); CALCIUM 9.6 mg/dL (8.4-10.2); CARBON DIOXIDE 29 mmol/L (22-30); CHLORIDE 105 mmol/L (98-107); CHOLESTEROL 194.23 mg/dL (0-200); GLUCOSE 249 mg/dL (75-110); POTASSIUM 4.2 mmol/L (3.6-5.0); SODIUM 140.4 mmol/L (137-145); TOTAL PROTEIN 6.3 g/dL (6.3-8.2); TRIGLYCERIDES 93 mg/dL (<150)
[2017-06-05 06:45] LABS: DIRECT LDL 130 mg/dL (<100)
[2017-06-05 06:46] LABS: FREE T4 (FREE THYROXINE) 1.79 ng/dL (0.78-2.19)
[2017-06-05 07:00] LABS: THYROID STIMULATING HORMONE 2.47 uIU/mL (0.47-4.68)
[2017-06-05 07:45] LABS: ABSOLUTE BASOPHILS # (AUTO) 0.1 10^3/uL (0.0-0.2); ABSOLUTE EOSINOPHILS # (AUTO) 0.2 10^3/uL (0.0-0.6); ABSOLUTE LYMPHOCYTES (AUTO) 2.4 10^3/uL (0.5-4.7); ABSOLUTE NEUT (AUTO) 3.6 10^3/uL (1.7-8.2); BASOPHILS % (AUTO) 1.1 % (0-2); EOSINOPHILS % (AUTO) 2.7 % (0-6); HEMATOCRIT 28.8 % (36.0-47.0); HEMOGLOBIN 9.3 g/dL (12.0-15.5); LYMPHOCYTES % (AUTO) 33.1 % (13-45); MEAN CORPUSCULAR HGB CONC 32.3 g/dL (32.0-36.0); MEAN CORPUSCULAR VOLUME 87 fl (80-97); MONOCYTES % (AUTO) 13.2 % (3-13); PLATELET COUNT 277 10^3/uL (150-450); RED BLOOD COUNT 3.32 10^6/uL (3.72-5.28); RED CELL DISTRIBUTION WIDTH 15.4 % (11.5-14.0); SEGMENTED NEUTROPHILS % (AUTO) 49.9 % (42-78); TOTAL CELLS COUNTED % (AUTO) 100 %; WHITE BLOOD COUNT 7.3 10^3/uL (4.0-10.5)
[2017-06-05] MEDS: INSULIN LISPRO 100 UNIT/ML 3 ML VIAL SUBCUT SCH ×3 (08:07→17:22)
[2017-06-05] MEDS: INSULIN LISPRO 100 UNIT/ML 3 ML VIAL SUBCUT PRN ×2 (08:08→23:11)
[2017-06-05] MEDS ORDERED: LISINOPRIL 10 MG TABLET PO SCH ×2 (10:00→18:22)
[2017-06-05] MEDS: INSULIN GLARGINE,HUM.REC.ANLOG 300 UNIT/3 ML INSULN.PEN SUBCUT SCH ×2 (10:17→23:06)
[2017-06-05] MEDS: NITROGLYCERIN 10 MG (0.4 MG/HR) PATCH.TD24 TD SCH (10:18)
[2017-06-05] MEDS: ASPIRIN 81 MG TABLET, ENT COATED PO SCH (10:18)
[2017-06-05] MEDS: VANCOMYCIN HCL 1,000 MG in DEXTROSE 5%-WATER 250 ML IV SCH ×2 (10:19→23:23)
[2017-06-05] MEDS: CARVEDILOL 12.5 MG TABLET PO SCH ×2 (11:12→23:06)
[2017-06-05] MEDS: ONDANSETRON HCL INJ/PF 4 MG/2 ML SDV IV PRN (17:22)
--- NOTE | 2017-06-05 18:18 | PDOC H&P ---
History of Present Illness Admission Date/PCP: 06/04/17 17:25 [facility] Patient complains of: Diffiulty with walking, left foot ulcer History of Present Illness: JAVIER BURGER is a 61 year old female patient known to my practice who presented to the ED with complain of difficulty with walking due to left foot ulcer and pain. She has history of diabetic foot ulcer and has been under comprehensive wound care management at our local wound care center as well as wound vac therapy at home without successful closure of her wound. There was concern for osteomyelitis involvement during her last hospitalization. She reported compliance with her medication and dietary restriction regarding her diabetes mellitus management. She denied any associated fever but reported episodes of chills. She reported unproductive cough. No chest pain or difficulty with breathing. No nausea, vomiting, abdominal pain, constipation or diarrhea. She denied any urinary symptoms to suggest ongoing infection. She denied headache or dizziness. Her morbidities include chronic systolic congestive Heart Failure, HTN, CAD s/p Old DC, CABG with quadruple bypass, HLD, Peripheral Vascular Disease, Osteoarthritis, and obesity. Past Medical History Cardiac Medical History: Reports: Congestive Heart Failure, Coronary Artery Disease, Myocardial Infarction, Hyperlipidema, Hypertension, Peripheral Vascular Disease Denies: Atrial Fibrillation, Pulmonary Embolism, Heart Murmur Pulmonary Medical History: Reports: Bronchitis Denies: Asthma, Chronic Obstructive Pulmonary Disease (COPD), Pneumonia, Respiratory Failure, Sleep Apnea, Tuberculosis Neurological Medical History: Denies: Seizures Endocrine Medical History: Reports: Diabetes Mellitus Type 1, Diabetes Mellitus Type 2 Denies: Hyperthyroidism, Hypothyroidism Renal/ Medical History: Denies: End Stage Renal Disease Malignancy Medical History: Denies: Breast Cancer, Cervical Cancer, Leukemia, Lung Cancer, Ovarian Cancer GI Medical History: Reports: Diverticulitis - diverticulosis Denies: Crohn's Disease, Gastroesophageal Reflux Disease, Hiatal Hernia Musculoskeltal Medical History: Denies: Arthritis, Fibromyalgia Psychiatric Medical History: Denies: Bipolar Disorder, Dementia, Depression, Post Traumatic Stress Disorder Hematology: Denies: Anemia, Hemophilia, Sickle Cell Disease Infectious Medical History: Denies: HIV Past Surgical History Past Surgical History: Reports: Coronary Artery Bypass Graft - July 31 2011, Tonsillectomy, Vascular Surgery Denies: Amputation, Appendectomy, Cardiac Catheterization, Section, Cholecystectomy, Colostomy, Gastric Bypass Surgery, Herniorrhaphy, Hysterectomy , Mastectomy, Pacemaker, Tubal Ligation Social History Smoking Status: Unknown if Ever Smoked Frequency of Alcohol Use: None Hx Recreational Drug Use: No Drugs: None Hx Prescription Drug Abuse: No Family History Family History: Reviewed & Not Pertinent, CAD, Hyperlipidemia, Hypertension Parental Family History Reviewed: Yes Children Family History Reviewed: Yes Sibling(s) Family History Reviewed.: Yes Medication/Allergy Home Medications: Amlodipine Besylate [Norvasc 10 mg Tablet] 10 mg PO DAILY 06/04/17 Atorvastatin Calcium [Lipitor 40 mg Tablet] 40 mg PO QHS 06/04/17 Clopidogrel Bisulfate [Plavix 75 mg Tablet] 75 mg PO DAILY 06/04/17 Furosemide [Lasix 40 mg Tablet] 40 mg PO DAILY 06/04/17 Gabapentin [Neurontin 300 mg Capsule] 300 mg PO Q6 06/04/17 Insulin Glargine,Hum.rec.anlog [Lantus Solostar] 10 units SQ QAM 06/04/17 Insulin Glargine,Hum.rec.anlog [Lantus Solostar] 45 units SQ QHS 06/04/17 Insulin Lispro [Humalog Kwikpen U-100] 0 unit SQ .SLIDING SCALE 06/04/17 Lisinopril [Prinivil 30 mg Tablet] 30 mg PO Q12 06/04/17 Metformin HCl [Glucophage] 850 mg PO BID 06/04/17 Oxycodone HCl 15 mg PO Q6HP PRN 06/04/17 Allergies/Adverse Reactions: pregabalin [From Lyrica] Allergy (Verified 05/18/17 17:24) Review of Systems All systems: reviewed and no additional remarkable complaints except as stated Physical Exam Vital Signs: Temp Pulse Resp BP Pulse Ox 97.5 F 69 16 101/57 L 99 06/05/17 17:22 06/05/17 17:22 06/05/17 17:22 06/05/17 17:22 06/05/17 17:22 Intake & Output 06/04/17 06/05/17 06/06/17 06:59 06:59 06:59 Intake Total 250 Output Total 300 Balance -300 250 Weight 103.419 kg General appearance: PRESENT: no acute distress, obese Head exam: PRESENT: atraumatic, normocephalic Eye exam: PRESENT: conjunctiva pink, EOMI, PERRLA. ABSENT: scleral icterus Ear exam: PRESENT: normal external ear exam Teeth exam: PRESENT: poor dentation Neck exam: PRESENT: full ROM. ABSENT: carotid bruit, JVD, lymphadenopathy, thyromegaly Respiratory exam: PRESENT: clear to auscultation jerrica, decreased breath sounds - at lung bases Cardiovascular exam: PRESENT: RRR. ABSENT: diastolic murmur, rubs, systolic murmur Pulses: PRESENT: +1 pedal pulses bilateral Vascular exam: PRESENT: normal capillary refill, pallor GI/Abdominal exam: PRESENT: normal bowel sounds, soft. ABSENT: distended, guarding, mass, organolmegaly, rebound, tenderness Rectal exam: PRESENT: deferred Extremities exam: PRESENT: pedal edema - 1+, tenderness - generalized to palpation Musculoskeletal exam: PRESENT: deformity - left foot due to hindfoot pressure ulcer with significant soft tissue involvement, drainage and malodor., tenderness Neurological exam: PRESENT: alert, awake, oriented to person, oriented to place , oriented to time, oriented to situation, CN II-XII grossly intact. ABSENT: motor sensory deficit Psychiatric exam: PRESENT: appropriate affect, normal mood. ABSENT: homicidal ideation, suicidal ideation Skin exam: PRESENT: dry, warm, other - exensive stage 4 infected left foot pressure ulcer Results Laboratory Results: 06/05/17 07:29 06/05/17 05:55 06/05/17 06/05/17 06/05/17 05:55 05:55 05:55 WBC Cancelled RBC Cancelled Hgb Cancelled Hct Cancelled MCV Cancelled MCH Cancelled MCHC Cancelled RDW Cancelled Plt Count Cancelled Seg Neutrophils % Cancelled Lymphocytes % Cancelled Monocytes % Cancelled Eosinophils % Cancelled Basophils % Cancelled Absolute Neutrophils Cancelled Absolute Lymphocytes Cancelled Absolute Monocytes Cancelled Absolute Eosinophils Cancelled Absolute Basophils Cancelled Sodium 140.4 Potassium 4.2 Chloride 105 Carbon Dioxide 29 Anion Gap 6 BUN 17 Creatinine 1.28 H Est GFR ( Amer) 51 L Est GFR (Non-Af Amer) 42 L Glucose 249 H Calcium 9.6 Total Bilirubin 0.7 AST 12 L ALT 19 Alkaline Phosphatase 106 Total Protein 6.3 Albumin 2.9 L Triglycerides 93 Cholesterol 194.23 LDL Cholesterol Direct 130 H VLDL Cholesterol 19.0 HDL Cholesterol 48 TSH 2.47 Free T4 1.79 06/05/17 07:29 WBC 7.3 RBC 3.32 L Hgb 9.3 L Hct 28.8 L MCV 87 MCH 28.0 MCHC 32.3 RDW 15.4 H Plt Count 277 Seg Neutrophils % 49.9 Lymphocytes % 33.1 Monocytes % 13.2 H Eosinophils % 2.7 Basophils % 1.1 Absolute Neutrophils 3.6 Absolute Lymphocytes 2.4 Absolute Monocytes 1.0 Absolute Eosinophils 0.2 Absolute Basophils 0.1 Sodium Potassium Chloride Carbon Dioxide Anion Gap BUN Creatinine Est GFR ( Amer) Est GFR (Non-Af Amer) Glucose Calcium Total Bilirubin AST ALT Alkaline Phosphatase Total Protein Albumin Triglycerides Cholesterol LDL Cholesterol Direct VLDL Cholesterol HDL Cholesterol TSH Free T4 Impressions: Foot X-Ray 06/04/17 14:52 IMPRESSION: Severe osteopenia without obvious osteomyelitis. Extensive soft tissue defect worse than previous. Assessment & Plan - Diagnosis (1) 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 2 diabetes mellitus Qualifiers: Diabetic foot ulcer location: heel Is this a current diagnosis for this admission?: Yes Plan: See admitting attending orders. (2) Diabetes mellitus type 2 in obese Is this a current diagnosis for this admission?: Yes Plan: See admitting attending orders. (3) PVD (peripheral vascular disease) Is this a current diagnosis for this admission?: Yes Plan: See admitting attending orders. (4) Chronic combined systolic and diastolic CHF (congestive heart failure) Is this a current diagnosis for this admission?: Yes Plan: See admitting attending orders. (5) HTN (hypertension) Qualifiers: Hypertension type: essential hypertension Qualified Code(s): I10 - Essential (primary) hypertension Is this a current diagnosis for this admission?: Yes Plan: See admitting attending orders. (6) S/P CABG (coronary artery bypass graft) Is this a current diagnosis for this admission?: Yes Plan: See admitting attending orders. (7) Hx of stroke without residual deficits Is this a current diagnosis for this admission?: Yes Plan: See admitting attending orders. - Time Time Spent: 50 to 70 Minutes Medications reviewed and adjusted accordingly: Yes Anticipated discharge: SNF Within: Other - Inpatient Certification Based on my medical assessment, after consideration of the patient's comorbidities, presenting symptoms, or acuity I expect that the services needed warrant INPATIENT care.: Yes I certify that my determination is in accordance with my understanding of Medicare's requirements for reasonable and necessary INPATIENT services [42 CFR 412.3e].: Yes Medical Necessity: Need Close Monitoring Due to Risk of Patient Decompensation, Need For IV Fluids, Need For Continuous Telemetry Monitoring, Need for Nebulizer Therapy and Monitoring of Response, Need for IV Antibiotics, Risk of Complication if Not Cared For in Hospital Post Hospital Care: D/C or Transfer Summary - Plan Summary Plan Summary: See admitting attending orders.
[2017-06-05] MEDS ORDERED: NALOXONE HCL INJ/PF 0.4 MG/1 ML SDV ONE ×2 (18:45→18:48)
--- NOTE | 2017-06-05 19:00 | Progress Note ---
Provider Note Provider Note: 06/05 7 pm Rapid Response Unresponsive Respiratory Arrest Bagged for 10 mn pulse palpable BP110/60 glucose 180 Heart RR responded to Narcan IV 0.4 mg IVP case discussed with Dr Moffett decrease oxycodone
[2017-06-05] MEDS: ATORVASTATIN CALCIUM 40 MG TABLET PO SCH (23:06)
[2017-06-06] MEDS: GABAPENTIN 300 MG CAPSULE PO SCH ×5 (00:05→22:57)
[2017-06-06] MEDS: PIPERACILLIN SODIUM/TAZOBACTAM 3.375 GM in NORMAL SALINE 100 ML IV SCH ×4 (04:04→22:57)
[2017-06-06] MEDS ORDERED: NORMAL SALINE 1000 ML 500 ML IV ONE (04:26)
[2017-06-06] MEDS ORDERED: NALOXONE HCL INJ/PF 0.4 MG/1 ML SDV IV ONE ×3 (04:45→08:30)
[2017-06-06 05:20] LABS: HEMATOCRIT 27.5 % (36.0-47.0); HEMOGLOBIN 8.9 g/dL (12.0-15.5); MEAN CORPUSCULAR HEMOGLOBIN 28.1 pg (27.0-33.4); MEAN CORPUSCULAR HGB CONC 32.4 g/dL (32.0-36.0); MEAN CORPUSCULAR VOLUME 87 fl (80-97); PLATELET COUNT 230 10^3/uL (150-450); RED BLOOD COUNT 3.16 10^6/uL (3.72-5.28); RED CELL DISTRIBUTION WIDTH 15.4 % (11.5-14.0); WHITE BLOOD COUNT 8.9 10^3/uL (4.0-10.5)
[2017-06-06 05:26] LABS: ANION GAP 8 (5-19); BLOOD UREA NITROGEN 25 mg/dL (7-20); CARBON DIOXIDE 28 mmol/L (22-30); CHLORIDE 105 mmol/L (98-107); GLUCOSE 169 mg/dL (75-110); POTASSIUM 4.5 mmol/L (3.6-5.0)
[2017-06-06] MEDS: NORMAL SALINE 1000 ML 1,000 ML IV PRN (05:50)
[2017-06-06 05:59] LABS: ABSOLUTE LYMPHOCYTES# (MANUAL) 2.7 10^3/uL (0.5-4.7); ABSOLUTE MONOCYTES # (MANUAL) 0.9 10^3/uL (0.1-1.4); ABSOLUTE NEUTROPHILS# (MANUAL) 4.9 10^3/uL (1.7-8.2); BAND NEUTROPHILS % (MANUAL) 1 % (3-5); BASOPHILS % (MANUAL) 1 % (0-2); EOSINOPHILS % (MANUAL) 4 % (0-6); LYMPHOCYTES % (MANUAL) 30 % (13-45); MONOCYTES % (MANUAL) 10 % (3-13); SEGMENTED NEUTROPHILS % (MAN) 54 % (42-78); TOTAL CELLS COUNTED 100
[2017-06-06] MEDS ORDERED: NORMAL SALINE 250 ML IV ONE (06:00)
[2017-06-06 06:01] LABS: TOXIC GRANULATION 1+
[2017-06-06 06:02] LABS: ANISOCYTOSIS SLIGHT; BURR CELLS SLIGHT; OVALOCYTES SLIGHT; PLATELET COMMENT ADEQUATE; PLATELET GIANT PRESENT; PLATELET LARGE PRESENT; POIKILOCYTOSIS SLIGHT; SCHISTOCYTES SLIGHT; TEAR DROP CELLS SLIGHT
[2017-06-06] MEDS: HEPARIN SOD (PORCINE) 5,000 UNIT/ML 1 ML SYRINGE SUBCUT SCH ×3 (06:25→23:03)
[2017-06-06] MEDS: LANSOPRAZOLE 30 MG TAB.RAP.DR PO SCH (06:31)
[2017-06-06] MEDS ORDERED: NORMAL SALINE 500 ML IV ONE (08:00)
--- NOTE | 2017-06-06 08:37 | PDOC PROGRESS REPORT ---
Subjective Progress Note for:: 06/06/17 Subjective:: Patient had episodes of opioid induced respiratory impairment since last clinical evaluation.. She did respond to Narcan administration and adjustment in her pain management medication dosage. There was repeat low blood pressure and less responsiveness necessitating repeat Narcan administration this morning. No reported chest pain, palpitation. nausea or vomiting. No fever or chills. Remain on IV Vancomycin and Zosyn coverage. Reason For Visit: LEFT HEEL WOUND INFECTION, HYPERGLYCEMIA, Physical Exam Vital Signs: Temp Pulse Resp BP Pulse Ox 98.9 F 62 18 85/55 L 94 06/06/17 04:00 06/06/17 04:00 06/06/17 04:00 06/06/17 04:35 06/06/17 04:00 Intake & Output 06/05/17 06/06/17 06/07/17 06:59 06:59 06:59 Intake Total 250 Output Total 300 100 Balance -300 150 Weight 103.419 kg 103.5 kg General appearance: PRESENT: no acute distress, well-developed, well-nourished Head exam: PRESENT: atraumatic, normocephalic Eye exam: PRESENT: conjunctiva pink, EOMI, PERRLA Teeth exam: PRESENT: poor dentation Respiratory exam: PRESENT: clear to auscultation jerrica, decreased breath sounds Cardiovascular exam: PRESENT: RRR. ABSENT: diastolic murmur, rubs, systolic murmur GI/Abdominal exam: PRESENT: normal bowel sounds, soft. ABSENT: distended, guarding, mass, organolmegaly, rebound, tenderness Extremities exam: PRESENT: pedal edema - minimal Musculoskeletal exam: PRESENT: tenderness - generalized to palpation of her legs Neurological exam: PRESENT: altered - arousable to painful sternal rub but appropriate in responses Psychiatric exam: PRESENT: appropriate affect, normal mood. ABSENT: homicidal ideation, suicidal ideation Skin exam: PRESENT: dry, warm, other - left foot stage 4 diabetic foot ulcer with extensive soft tisue involvement and infection Results Laboratory Results: 06/06/17 04:52 06/06/17 04:52 06/06/17 06/06/17 04:52 04:52 WBC 8.9 RBC 3.16 L Hgb 8.9 L Hct 27.5 L MCV 87 MCH 28.1 MCHC 32.4 RDW 15.4 H Plt Count 230 Seg Neutrophils % Not Reportable Lymphocytes % Not Reportable Monocytes % Not Reportable Eosinophils % Not Reportable Basophils % Not Reportable Absolute Neutrophils Not Reportable Absolute Lymphocytes Not Reportable Absolute Monocytes Not Reportable Absolute Eosinophils Not Reportable Absolute Basophils Not Reportable Sodium 141.0 Potassium 4.5 Chloride 105 Carbon Dioxide 28 Anion Gap 8 BUN 25 H Creatinine 2.34 H Est GFR ( Amer) 25 L Est GFR (Non-Af Amer) 21 L Glucose 169 H Calcium 9.0 Impressions: Foot X-Ray 06/04/17 14:52 IMPRESSION: Severe osteopenia without obvious osteomyelitis. Extensive soft tissue defect worse than previous. Assessment & Plan - Diagnosis (1) 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 2 diabetes mellitus Qualifiers: Diabetic foot ulcer location: heel Is this a current diagnosis for this admission?: Yes (2) Diabetes mellitus type 2 in obese Is this a current diagnosis for this admission?: Yes (3) PVD (peripheral vascular disease) Is this a current diagnosis for this admission?: Yes (4) Chronic combined systolic and diastolic CHF (congestive heart failure) Is this a current diagnosis for this admission?: Yes (5) HTN (hypertension) Qualifiers: Hypertension type: essential hypertension Qualified Code(s): I10 - Essential (primary) hypertension Is this a current diagnosis for this admission?: Yes (6) S/P CABG (coronary artery bypass graft) Is this a current diagnosis for this admission?: Yes (7) Hx of stroke without residual deficits Is this a current diagnosis for this admission?: Yes - Time Time Spent with patient: 35 or more minutes Medications reviewed and adjusted accordingly: Yes Anticipated discharge: SNF Within: Other - Inpatient Certification Based on my medical assessment, after consideration of the patient's comorbidities, presenting symptoms, or acuity I expect that the services needed warrant INPATIENT care.: Yes I certify that my determination is in accordance with my understanding of Medicare's requirements for reasonable and necessary INPATIENT services [42 CFR 412.3e].: Yes Medical Necessity: Need Close Monitoring Due to Risk of Patient Decompensation, Need For IV Fluids, Need For Continuous Telemetry Monitoring, Need for IV Antibiotics, Risk of Complication if Not Cared For in Hospital Post Hospital Care: D/C or Transfer Summary - Plan Summary Plan Summary: Decrease Oxy IR to 5 mg po q6hrs prn for pain management. Continue IV antibiotic therapy. Maintain on IV fluid support. Continue other current medication management. Follow up on culture reports and surgical consult for possible intervention.
[2017-06-06] MEDS: ASPIRIN 81 MG TABLET, ENT COATED PO SCH (09:28)
[2017-06-06] MEDS: INSULIN LISPRO 100 UNIT/ML 3 ML VIAL SUBCUT SCH ×3 (10:28→17:25)
[2017-06-06] MEDS: CARVEDILOL 12.5 MG TABLET PO SCH ×2 (10:35→23:03)
[2017-06-06] MEDS: NITROGLYCERIN 10 MG (0.4 MG/HR) PATCH.TD24 TD SCH (10:35)
[2017-06-06 10:50] LABS: VANCOMYCIN,TROUGH 22.1 ug/mL (5.0-20.0)
[2017-06-06] MEDS: VANCOMYCIN HCL 1,000 MG in DEXTROSE 5%-WATER 250 ML IV SCH (11:25)
[2017-06-06] MEDS: ACETAMINOPHEN 325 MG TABLET PO PRN (11:26)
[2017-06-06] MEDS: INSULIN GLARGINE,HUM.REC.ANLOG 300 UNIT/3 ML INSULN.PEN SUBCUT SCH ×2 (11:28→23:00)
[2017-06-06] MEDS: ONDANSETRON HCL INJ/PF 4 MG/2 ML SDV IV PRN (11:40)
--- NOTE | 2017-06-06 14:13 | PDOC CONSULTATION ---
Consultation Consult Date: 06/06/17 Attending physician:: STEPHAN TAFOYA Consult reason:: Left foot ulceration History of Present Illness Admission Date/PCP: 06/04/17 17:25 STEPHAN TAFOYA History of Present Illness: This is a 61-year-old diabetic female who was admitted by Dr. Tafoya for evaluation of a left foot ulceration. She reports that she has had a foot ulceration for several months. She has seen a vascular surgeon in the [facility]. She has been seeing the wound care center here in [place] and they have been using a wound VAC over the past several weeks. She has had a foot x-ray which does not show any clear evidence of osteomyelitis. She has not had an MRI or bone scan. She has no prior history of peripheral vascular surgery. She does have a history of tobacco abuse having quit approximately 6-8 weeks ago. Up until the time she was smoking about a half a pack a day. She was admitted secondary to pain and difficulty walking [place] to the ulcer. Past Medical History Cardiac Medical History: Reports: Congestive Heart Failure, Coronary Artery Disease, Myocardial Infarction, Hyperlipidema, Hypertension, Peripheral Vascular Disease Denies: Atrial Fibrillation, Pulmonary Embolism, Heart Murmur Pulmonary Medical History: Reports: Bronchitis Denies: Asthma, Chronic Obstructive Pulmonary Disease (COPD), Pneumonia, Respiratory Failure, Sleep Apnea, Tuberculosis Neurological Medical History: Denies: Seizures Endocrine Medical History: Reports: Diabetes Mellitus Type 1, Diabetes Mellitus Type 2 Denies: Hyperthyroidism, Hypothyroidism Renal/ Medical History: Denies: End Stage Renal Disease Malignancy Medical History: Denies: Breast Cancer, Cervical Cancer, Leukemia, Lung Cancer, Ovarian Cancer GI Medical History: Reports: Diverticulitis - diverticulosis Denies: Crohn's Disease, Gastroesophageal Reflux Disease, Hiatal Hernia Musculoskeltal Medical History: Denies: Arthritis, Fibromyalgia Psychiatric Medical History: Denies: Bipolar Disorder, Dementia, Depression, Post Traumatic Stress Disorder Hematology: Denies: Anemia, Hemophilia, Sickle Cell Disease Infectious Medical History: Denies: HIV Past Surgical History Past Surgical History: Reports: Coronary Artery Bypass Graft - July 31 2011, Tonsillectomy, Vascular Surgery Denies: Amputation, Appendectomy, Cardiac Catheterization, Section, Cholecystectomy, Colostomy, Gastric Bypass Surgery, Herniorrhaphy, Hysterectomy , Mastectomy, Pacemaker, Tubal Ligation Social History Smoking Status: Former Smoker Frequency of Alcohol Use: None Hx Recreational Drug Use: No Drugs: None Hx Prescription Drug Abuse: No Family History Family History: Reviewed & Not Pertinent, CAD, Hyperlipidemia, Hypertension Parental Family History Reviewed: No Children Family History Reviewed: No Sibling(s) Family History Reviewed.: No Medication/Allergy Home Medications: Amlodipine Besylate [Norvasc 10 mg Tablet] 10 mg PO DAILY 06/04/17 Atorvastatin Calcium [Lipitor 40 mg Tablet] 40 mg PO QHS 06/04/17 Clopidogrel Bisulfate [Plavix 75 mg Tablet] 75 mg PO DAILY 06/04/17 Furosemide [Lasix 40 mg Tablet] 40 mg PO DAILY 06/04/17 Gabapentin [Neurontin 300 mg Capsule] 300 mg PO Q6 06/04/17 Insulin Glargine,Hum.rec.anlog [Lantus Solostar] 10 units SQ QAM 06/04/17 Insulin Glargine,Hum.rec.anlog [Lantus Solostar] 45 units SQ QHS 06/04/17 Insulin Lispro [Humalog Kwikpen U-100] 0 unit SQ .SLIDING SCALE 06/04/17 Lisinopril [Prinivil 30 mg Tablet] 30 mg PO Q12 06/04/17 Metformin HCl [Glucophage] 850 mg PO BID 06/04/17 Oxycodone HCl 15 mg PO Q6HP PRN 06/04/17 Allergies/Adverse Reactions: pregabalin [From Lyrica] Allergy (Verified 05/18/17 17:24) Physical Exam Vital Signs: Temp Pulse Resp BP Pulse Ox 98.6 F 63 18 97/62 L 98 06/06/17 12:00 06/06/17 12:00 06/06/17 12:00 06/06/17 12:00 06/06/17 12:00 Intake & Output 06/05/17 06/06/17 06/07/17 06:59 06:59 06:59 Intake Total 250 Output Total 300 100 Balance -300 150 Weight 103.419 kg 103.5 kg General appearance: PRESENT: no acute distress Eye exam: PRESENT: EOMI, PERRLA Teeth exam: PRESENT: poor dentation Respiratory exam: PRESENT: clear to auscultation jerrica Cardiovascular exam: PRESENT: RRR Pulses: PRESENT: other - I could not appreciate a pulse in either the posterior tibial or dorsalis pedis position. I could not palpate a femoral pulse on the left. Results Laboratory Results: 06/06/17 04:52 06/06/17 10:16 06/06/17 06/06/17 06/06/17 04:52 04:52 10:16 WBC 8.9 RBC 3.16 L Hgb 8.9 L Hct 27.5 L MCV 87 MCH 28.1 MCHC 32.4 RDW 15.4 H Plt Count 230 Seg Neutrophils % Not Reportable Lymphocytes % Not Reportable Monocytes % Not Reportable Eosinophils % Not Reportable Basophils % Not Reportable Absolute Neutrophils Not Reportable Absolute Lymphocytes Not Reportable Absolute Monocytes Not Reportable Absolute Eosinophils Not Reportable Absolute Basophils Not Reportable Sodium 141.0 Potassium 4.5 Chloride 105 Carbon Dioxide 28 Anion Gap 8 BUN 25 H Creatinine 2.34 H 2.49 H Est GFR ( Amer) 25 L 24 L Est GFR (Non-Af Amer) 21 L 20 L Glucose 169 H Calcium 9.0 Impressions: Foot X-Ray 06/04/17 14:52 IMPRESSION: Severe osteopenia without obvious osteomyelitis. Extensive soft tissue defect worse than previous. Assessment & Plan - Diagnosis (1) PVD (peripheral vascular disease) Is this a current diagnosis for this admission?: Yes (2) 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 2 diabetes mellitus Qualifiers: Diabetic foot ulcer location: heel Is this a current diagnosis for this admission?: Yes - Plan Summary Plan Summary: He has a 5 cm ulceration heel of the left foot. There is some granulation tissue covering the calcaneus bone. Though no bone is exposed, there is minimal granulation tissue covering the bone. The x-ray of the foot did not reveal osteomyelitis but I suspect she does have some degree of infection present. She does not need operative debridement at this point. I am concerned about her arterial inflow as I cannot appreciate a dorsalis pedis or posterior tibial pulse. I spoke with Dr. Tafoya about this and I recommended that the patient see her vascular surgeon for further workup of peripheral vascular disease. I suspect that the wound will not heal until she has better inflow. I would recommend continued dressing changes. We will see as needed. Please reconsult if needed.
[2017-06-06] MEDS ORDERED: IPRATROPIUM/ALBUTEROL 0.5-2.5 MG/3 ML AMPUL NEB PRN (21:19)
[2017-06-06] MEDS: ATORVASTATIN CALCIUM 40 MG TABLET PO SCH (22:58)
[2017-06-06] MEDS: COLLAGENASE CLOSTRIDIUM HIST. OINT 30 GM TP SCH (23:03)
[2017-06-07] MEDS: NORMAL SALINE 1000 ML 1,000 ML IV PRN (02:21)
[2017-06-07] MEDS: PIPERACILLIN SODIUM/TAZOBACTAM 3.375 GM in NORMAL SALINE 100 ML IV SCH ×4 (02:21→21:38)
[2017-06-07 04:07] LABS: ABSOLUTE EOSINOPHILS # (AUTO) 0.2 10^3/uL (0.0-0.6); ABSOLUTE LYMPHOCYTES (AUTO) 2.6 10^3/uL (0.5-4.7); ABSOLUTE NEUT (AUTO) 3.8 10^3/uL (1.7-8.2); BASOPHILS % (AUTO) 0.4 % (0-2); EOSINOPHILS % (AUTO) 2.4 % (0-6); HEMATOCRIT 29.5 % (36.0-47.0); HEMOGLOBIN 9.4 g/dL (12.0-15.5); LYMPHOCYTES % (AUTO) 34.3 % (13-45); MEAN CORPUSCULAR HEMOGLOBIN 27.8 pg (27.0-33.4); MEAN CORPUSCULAR HGB CONC 31.9 g/dL (32.0-36.0); MEAN CORPUSCULAR VOLUME 87 fl (80-97); MONOCYTES % (AUTO) 12.7 % (3-13); PLATELET COUNT 237 10^3/uL (150-450); RED BLOOD COUNT 3.37 10^6/uL (3.72-5.28); RED CELL DISTRIBUTION WIDTH 15.6 % (11.5-14.0); SEGMENTED NEUTROPHILS % (AUTO) 50.2 % (42-78); TOTAL CELLS COUNTED % (AUTO) 100 %; WHITE BLOOD COUNT 7.5 10^3/uL (4.0-10.5)
[2017-06-07 04:22] LABS: ALANINE AMINOTRANSFERASE 20 U/L (9-52); ALBUMIN 3.2 g/dL (3.5-5.0); ALKALINE PHOSPHATASE 104 U/L (38-126); ANION GAP 7 (5-19); ASPARTATE AMINO TRANSFERASE 53 U/L (14-36); BILIRUBIN,DIRECT 0.2 mg/dL (0.0-0.4); BILIRUBIN,TOTAL 0.4 mg/dL (0.2-1.3); BLOOD UREA NITROGEN 27 mg/dL (7-20); CALCIUM 8.6 mg/dL (8.4-10.2); CARBON DIOXIDE 29 mmol/L (22-30); CHLORIDE 107 mmol/L (98-107); GLUCOSE 217 mg/dL (75-110); POTASSIUM 4.3 mmol/L (3.6-5.0); SODIUM 142.9 mmol/L (137-145)
[2017-06-07] MEDS: GABAPENTIN 300 MG CAPSULE PO SCH ×3 (05:00→19:28)
[2017-06-07] MEDS: LANSOPRAZOLE 30 MG TAB.RAP.DR PO SCH (05:00)
[2017-06-07] MEDS: HEPARIN SOD (PORCINE) 5,000 UNIT/ML 1 ML SYRINGE SUBCUT SCH ×3 (05:00→21:39)
[2017-06-07] MEDS: INSULIN LISPRO 100 UNIT/ML 3 ML VIAL SUBCUT SCH ×3 (08:06→17:14)
[2017-06-07] MEDS: INSULIN LISPRO 100 UNIT/ML 3 ML VIAL SUBCUT PRN (08:07)
[2017-06-07] MEDS ORDERED: LISINOPRIL 10 MG TABLET PO SCH (10:00)
[2017-06-07] MEDS: NITROGLYCERIN 10 MG (0.4 MG/HR) PATCH.TD24 TD SCH (10:05)
[2017-06-07] MEDS: ASPIRIN 81 MG TABLET, ENT COATED PO SCH (10:07)
[2017-06-07] MEDS: CARVEDILOL 12.5 MG TABLET PO SCH ×2 (10:07→21:39)
[2017-06-07] MEDS: INSULIN GLARGINE,HUM.REC.ANLOG 300 UNIT/3 ML INSULN.PEN SUBCUT SCH ×2 (10:08→22:29)
[2017-06-07] MEDS: OXYCODONE HCL IR 5 MG TABLET PO PRN (15:18)
--- NOTE | 2017-06-07 18:46 | PDOC PROGRESS REPORT ---
Subjective Progress Note for:: 06/07/17 Subjective:: Patient was transferred to ICU due to reported persistent hypotension and decrease urine output. No reported chest pain, palpitation, or difficulty with breathing. No abdominal pain, nausea or vomiting. No fever or chills. Continue IV Vancomycin and Zosyn coverage. Reason For Visit: LEFT HEEL WOUND INFECTION, HYPERGLYCEMIA, Physical Exam Vital Signs: Temp Pulse Resp BP Pulse Ox 98.2 F 69 15 128/73 H 98 06/07/17 06:08 06/06/17 23:13 06/07/17 04:07 06/07/17 06:08 06/07/17 06:08 Intake & Output 06/06/17 06/07/17 06/08/17 06:59 06:59 06:59 Intake Total 250 2851 Output Total 100 500 Balance 150 2351 Weight 103.5 kg 107.7 kg General appearance: PRESENT: no acute distress, morbidly obese Head exam: PRESENT: atraumatic, normocephalic Eye exam: PRESENT: conjunctiva pink, EOMI, PERRLA. ABSENT: scleral icterus Mouth exam: PRESENT: moist Respiratory exam: PRESENT: clear to auscultation jerrica, decreased breath sounds - lower lung zones Cardiovascular exam: PRESENT: RRR. ABSENT: diastolic murmur, rubs, systolic murmur Pulses: PRESENT: +1 pedal pulses bilateral Vascular exam: PRESENT: normal capillary refill. ABSENT: pallor GI/Abdominal exam: PRESENT: normal bowel sounds, soft. ABSENT: distended, guarding, mass, organolmegaly, rebound, tenderness Extremities exam: PRESENT: pedal edema - minimal Musculoskeletal exam: PRESENT: deformity - OA features and left hindfoot ulcer Neurological exam: PRESENT: alert, awake, oriented to person, oriented to place , oriented to time, oriented to situation, CN II-XII grossly intact. ABSENT: motor sensory deficit Psychiatric exam: PRESENT: appropriate affect, normal mood. ABSENT: homicidal ideation, suicidal ideation Skin exam: PRESENT: dry, warm, other - infected left foot diabetic ulcer. ABSENT: cyanosis, rash Results Laboratory Results: 06/07/17 03:58 06/07/17 03:58 06/06/17 06/07/17 06/07/17 10:16 03:58 03:58 WBC 7.5 RBC 3.37 L Hgb 9.4 L Hct 29.5 L MCV 87 MCH 27.8 MCHC 31.9 L RDW 15.6 H Plt Count 237 Seg Neutrophils % 50.2 Lymphocytes % 34.3 Monocytes % 12.7 Eosinophils % 2.4 Basophils % 0.4 Absolute Neutrophils 3.8 Absolute Lymphocytes 2.6 Absolute Monocytes 1.0 Absolute Eosinophils 0.2 Absolute Basophils 0.0 Sodium 142.9 Potassium 4.3 Chloride 107 Carbon Dioxide 29 Anion Gap 7 BUN 27 H Creatinine 2.49 H 2.46 H Est GFR ( Amer) 24 L 24 L Est GFR (Non-Af Amer) 20 L 20 L Glucose 217 H Calcium 8.6 Total Bilirubin 0.4 AST 53 H ALT 20 Alkaline Phosphatase 104 Total Protein 7.0 Albumin 3.2 L Impressions: Foot X-Ray 06/04/17 14:52 IMPRESSION: Severe osteopenia without obvious osteomyelitis. Extensive soft tissue defect worse than previous. Assessment & Plan - Diagnosis (1) 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 2 diabetes mellitus Qualifiers: Diabetic foot ulcer location: heel Is this a current diagnosis for this admission?: Yes (2) Diabetes mellitus type 2 in obese Is this a current diagnosis for this admission?: Yes (3) PVD (peripheral vascular disease) Is this a current diagnosis for this admission?: Yes (4) Chronic combined systolic and diastolic CHF (congestive heart failure) Is this a current diagnosis for this admission?: Yes (5) HTN (hypertension) Qualifiers: Hypertension type: essential hypertension Qualified Code(s): I10 - Essential (primary) hypertension Is this a current diagnosis for this admission?: Yes (6) S/P CABG (coronary artery bypass graft) Is this a current diagnosis for this admission?: Yes (7) Hx of stroke without residual deficits Is this a current diagnosis for this admission?: Yes - Time Time Spent with patient: 25-34 minutes Medications reviewed and adjusted accordingly: Yes Anticipated discharge: Home with Homehealth Within: Other - Inpatient Certification Based on my medical assessment, after consideration of the patient's comorbidities, presenting symptoms, or acuity I expect that the services needed warrant INPATIENT care.: Yes I certify that my determination is in accordance with my understanding of Medicare's requirements for reasonable and necessary INPATIENT services [42 CFR 412.3e].: Yes Medical Necessity: Need Close Monitoring Due to Risk of Patient Decompensation, Need For IV Fluids, Need For Continuous Telemetry Monitoring, Need for Nebulizer Therapy and Monitoring of Response, Need for IV Antibiotics, Risk of Complication if Not Cared For in Hospital Post Hospital Care: D/C Classification Counselor Documentation - Plan Summary Plan Summary: Continue antibiotic therapy. Obtain arterial duplex study of lower extremities for further evaluation of her vascular status. Down grade to IMCU status.
[2017-06-07] MEDS: ACETAMINOPHEN 325 MG TABLET PO PRN (20:53)
[2017-06-07] MEDS: ATORVASTATIN CALCIUM 40 MG TABLET PO SCH (21:39)
[2017-06-08] MEDS: OXYCODONE HCL IR 5 MG TABLET PO PRN ×2 (01:06→11:14)
[2017-06-08] MEDS: GABAPENTIN 300 MG CAPSULE PO SCH ×5 (01:06→23:17)
[2017-06-08] MEDS: PIPERACILLIN SODIUM/TAZOBACTAM 3.375 GM in NORMAL SALINE 100 ML IV SCH ×4 (05:13→23:18)
[2017-06-08] MEDS: LANSOPRAZOLE 30 MG TAB.RAP.DR PO SCH (05:14)
[2017-06-08] MEDS: HEPARIN SOD (PORCINE) 5,000 UNIT/ML 1 ML SYRINGE SUBCUT SCH ×3 (05:16→21:40)
[2017-06-08] MEDS: ACETAMINOPHEN 325 MG TABLET PO PRN (08:01)
[2017-06-08] MEDS: INSULIN LISPRO 100 UNIT/ML 3 ML VIAL SUBCUT SCH ×3 (08:01→17:19)
[2017-06-08] MEDS: CARVEDILOL 12.5 MG TABLET PO SCH ×2 (10:38→21:41)
[2017-06-08] MEDS: NITROGLYCERIN 10 MG (0.4 MG/HR) PATCH.TD24 TD SCH (10:38)
[2017-06-08] MEDS: INSULIN GLARGINE,HUM.REC.ANLOG 300 UNIT/3 ML INSULN.PEN SUBCUT SCH ×2 (11:13→22:01)
[2017-06-08] MEDS: ASPIRIN 81 MG TABLET, ENT COATED PO SCH (11:14)
--- NOTE | 2017-06-08 12:42 | RADIOLOGY REPORT (SQ) ---
EXAM DESCRIPTION: VENOUS UNILATERAL LOWER COMPLETED DATE/TIME: 06/08/2017 12:32 pm REASON FOR STUDY: non healing ulcer on left heel COMPARISON: None. TECHNIQUE: Dynamic and static carvalho scale and color images acquired of the left leg venous system. Se lected spectral images acquired with additional compression and augmentation maneuvers. The contralat eral common femoral vein and saphenofemoral junction were also imaged. Images stored on PACS. LIMITATIONS: None. FINDINGS: LEFT COMMON FEMORAL: Normal phasicity, compression and augmentation. No visualized echogenic material on g ray scale. No defects on color images. FEMORAL: Normal compression and augmentation. No visualized echogenic material on carvalho scale. No defe cts on color images. POPLITEAL: Normal compression, augmentation. No visualized echogenic material on carvalho scale. No defec ts on color images. CALF VESSELS: Normal compression, augmentation. No visualized echogenic material on carvalho scale. No de fects on color images. GSV: The proximal greater saphenous vein in the left thigh is not identified. Patient gives a histo ry of harvest of the vein. Normal compression and augmentation in the greater saphenous vein in the calf. Normal color flow in the greater saphenous vein in the calf SSV: Normal compression, augmentation. No visualized echogenic material on carvalho scale. No defects on color images. ANY DEEP VENOUS INSUFFICIENCY: Not evaluated. ANY EVIDENCE OF POPLITEAL CYST: No. OTHER: No other significant finding. RIGHT COMMON FEMORAL VEIN AND SAPHENOFEMORAL JUNCTION: Normal phasicity, compression and augmentation. No visualized echogenic material on carvalho scale. No de fects on color images. IMPRESSION: NO EVIDENCE OF DVT OR SVT IN THE LEFT LEG. TECHNICAL DOCUMENTATION: JOB ID: [id number] [email or web address]- All Rights Reserved
--- NOTE | 2017-06-08 17:15 | PDOC PROGRESS REPORT ---
Subjective Progress Note for:: 06/08/17 Subjective:: Patient denied any chest pain or difficulty with breathing. Not very pleased with reduction in her Oxy IR dosing despite adequate explanation about relationship with respiratory difficulty and need for Narcan administration during this hospitalization. No nausea, vomiting or bdominal pain. Patient had arterial duplex study completed but awaiting official report. Venous Doppler was negative for DVT. Reason For Visit: LEFT HEEL WOUND INFECTION, HYPERGLYCEMIA, Physical Exam Vital Signs: Temp Pulse Resp BP Pulse Ox 99.4 F 64 18 114/57 L 100 06/08/17 12:02 06/08/17 14:00 06/08/17 12:02 06/08/17 12:02 06/08/17 12:02 Intake & Output 06/07/17 06/08/17 06/09/17 06:59 06:59 06:59 Intake Total 2851 2527 650 Output Total 500 1950 200 Balance 2351 577 450 Weight 107.7 kg 112.2 kg Physical Exam: General appearance: PRESENT: no acute distress, morbidly obese Head exam: PRESENT: atraumatic, normocephalic Eye exam: PRESENT: conjunctiva pink, EOMI, PERRLA. ABSENT: scleral icterus Mouth exam: PRESENT: moist Respiratory exam: PRESENT: clear to auscultation jerrica, decreased breath sounds - lower lung zones Cardiovascular exam: PRESENT: RRR. ABSENT: diastolic murmur, rubs, systolic murmur Pulses: PRESENT: +1 pedal pulses bilateral Vascular exam: PRESENT: normal capillary refill. ABSENT: pallor GI/Abdominal exam: PRESENT: normal bowel sounds, soft. ABSENT: distended, guarding, mass, organomegaly, rebound, tenderness Extremities exam: PRESENT: pedal edema - minimal Musculoskeletal exam: PRESENT: deformity - OA features and left hindfoot ulcer Neurological exam: PRESENT: alert, awake, oriented to person, oriented to place , oriented to time, oriented to situation, CN II-XII grossly intact. ABSENT: motor sensory deficit Psychiatric exam: PRESENT: appropriate affect, normal mood. ABSENT: homicidal ideation, suicidal ideation Skin exam: PRESENT: dry, warm, other - infected left foot diabetic ulcer with wound vac device in use. ABSENT: cyanosis, rash Results Laboratory Results: 06/07/17 03:58 06/07/17 03:58 Impressions: Foot X-Ray 06/04/17 14:52 IMPRESSION: Severe osteopenia without obvious osteomyelitis. Extensive soft tissue defect worse than previous. Venous Doppler Study 06/08/17 00:00 IMPRESSION: NO EVIDENCE OF DVT OR SVT IN THE LEFT LEG. Assessment & Plan - Diagnosis (1) 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 2 diabetes mellitus Qualifiers: Diabetic foot ulcer location: heel Is this a current diagnosis for this admission?: Yes (2) Diabetes mellitus type 2 in obese Is this a current diagnosis for this admission?: Yes (3) PVD (peripheral vascular disease) Is this a current diagnosis for this admission?: Yes (4) Chronic combined systolic and diastolic CHF (congestive heart failure) Is this a current diagnosis for this admission?: Yes (5) HTN (hypertension) Qualifiers: Hypertension type: essential hypertension Qualified Code(s): I10 - Essential (primary) hypertension Is this a current diagnosis for this admission?: Yes (6) S/P CABG (coronary artery bypass graft) Is this a current diagnosis for this admission?: Yes (7) Hx of stroke without residual deficits Is this a current diagnosis for this admission?: Yes - Time Time Spent with patient: 25-34 minutes Medications reviewed and adjusted accordingly: Yes Anticipated discharge: Home with Homehealth Within: Other - Inpatient Certification Based on my medical assessment, after consideration of the patient's comorbidities, presenting symptoms, or acuity I expect that the services needed warrant INPATIENT care.: Yes I certify that my determination is in accordance with my understanding of Medicare's requirements for reasonable and necessary INPATIENT services [42 CFR 412.3e].: Yes Medical Necessity: Need Close Monitoring Due to Risk of Patient Decompensation, Need For IV Fluids, Need For Continuous Telemetry Monitoring, Need for Nebulizer Therapy and Monitoring of Response, Need for IV Antibiotics, Risk of Complication if Not Cared For in Hospital Post Hospital Care: D/C Hydraulic Bull Riveter Operator Documentation - Plan Summary Plan Summary: Continue current antibiotic therapy. Follow up on pending blood culture findings. Follow up on arterial duplex study findings. Maintain on all other current medication management.
[2017-06-08] MEDS: NORMAL SALINE 1000 ML 1,000 ML IV PRN (17:19)
[2017-06-08] MEDS: ATORVASTATIN CALCIUM 40 MG TABLET PO SCH (21:40)
[2017-06-08] MEDS: COLLAGENASE CLOSTRIDIUM HIST. OINT 30 GM TP SCH (22:02)
[2017-06-09] MEDS: OXYCODONE HCL IR 5 MG TABLET PO PRN ×2 (02:55→22:31)
[2017-06-09] MEDS: LANSOPRAZOLE 30 MG TAB.RAP.DR PO SCH (06:16)
[2017-06-09] MEDS: PIPERACILLIN SODIUM/TAZOBACTAM 3.375 GM in NORMAL SALINE 100 ML IV SCH ×4 (06:17→23:34)
[2017-06-09] MEDS: GABAPENTIN 300 MG CAPSULE PO SCH ×4 (06:17→23:34)
[2017-06-09] MEDS: HEPARIN SOD (PORCINE) 5,000 UNIT/ML 1 ML SYRINGE SUBCUT SCH ×3 (06:17→22:23)
[2017-06-09] MEDS: INSULIN GLARGINE,HUM.REC.ANLOG 300 UNIT/3 ML INSULN.PEN SUBCUT SCH ×2 (09:15→22:23)
[2017-06-09] MEDS: INSULIN LISPRO 100 UNIT/ML 3 ML VIAL SUBCUT SCH ×3 (09:15→17:13)
[2017-06-09] MEDS: CARVEDILOL 12.5 MG TABLET PO SCH ×2 (09:15→22:24)
[2017-06-09] MEDS: ASPIRIN 81 MG TABLET, ENT COATED PO SCH (09:16)
[2017-06-09] MEDS: NITROGLYCERIN 10 MG (0.4 MG/HR) PATCH.TD24 TD SCH (09:16)
--- NOTE | 2017-06-09 10:22 | PDOC PROGRESS REPORT ---
Subjective Progress Note for:: 06/09/17 Subjective:: Patient is currently doing fair Patient's denied any chest pain Patient's denied any shortness of the breath Patient have a chronic wound on the left foot Reason For Visit: LEFT HEEL WOUND INFECTION, HYPERGLYCEMIA, Physical Exam Vital Signs: Temp Pulse Resp BP Pulse Ox 97.8 F 63 12 120/66 100 06/09/17 07:22 06/09/17 07:22 06/09/17 07:22 06/09/17 07:22 06/09/17 07:22 Intake & Output 06/08/17 06/09/17 06/10/17 06:59 06:59 06:59 Intake Total 2527 3624 Output Total 1950 950 Balance 577 2674 Weight 112.2 kg 117.7 kg General appearance: PRESENT: no acute distress, well-developed, well-nourished Head exam: PRESENT: atraumatic, normocephalic Eye exam: PRESENT: conjunctiva pink, EOMI, PERRLA. ABSENT: scleral icterus Ear exam: PRESENT: normal external ear exam Mouth exam: PRESENT: moist, tongue midline Neck exam: PRESENT: full ROM. ABSENT: carotid bruit, JVD, lymphadenopathy, thyromegaly Respiratory exam: PRESENT: clear to auscultation jerrica Cardiovascular exam: PRESENT: RRR. ABSENT: diastolic murmur, rubs, systolic murmur Pulses: PRESENT: normal dorsalis pedis pul, +2 pedal pulses bilateral Vascular exam: PRESENT: normal capillary refill GI/Abdominal exam: PRESENT: normal bowel sounds, soft. ABSENT: distended, guarding, mass, organolmegaly, rebound, tenderness Rectal exam: PRESENT: deferred Extremities exam: PRESENT: pedal edema Additional comments: Left foot the dressing is intact Neurological exam: PRESENT: alert, awake, oriented to person, oriented to place , oriented to time, oriented to situation, CN II-XII grossly intact. ABSENT: motor sensory deficit Psychiatric exam: PRESENT: appropriate affect, normal mood. ABSENT: homicidal ideation, suicidal ideation Skin exam: PRESENT: dry, intact, warm. ABSENT: cyanosis, rash Results Laboratory Results: 06/07/17 03:58 06/07/17 03:58 Impressions: Foot X-Ray 06/04/17 14:52 IMPRESSION: Severe osteopenia without obvious osteomyelitis. Extensive soft tissue defect worse than previous. Venous Doppler Study 06/08/17 00:00 IMPRESSION: NO EVIDENCE OF DVT OR SVT IN THE LEFT LEG. Assessment & Plan - Diagnosis (1) 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 2 diabetes mellitus Qualifiers: Diabetic foot ulcer location: heel Is this a current diagnosis for this admission?: Yes Plan: Continues to IV antibiotic as the general surgery for further evaluations (2) PVD (peripheral vascular disease) Is this a current diagnosis for this admission?: Yes Plan: Wait for the ultrasound report (3) Acute on chronic systolic CHF (congestive heart failure) Is this a current diagnosis for this admission?: Yes Plan: Continue the current medication the current medication (4) Anemia of chronic disease Is this a current diagnosis for this admission?: Yes (5) Chronic use of opiate for therapeutic purpose Is this a current diagnosis for this admission?: Yes (6) HLD (hyperlipidemia) Qualifiers: Hyperlipidemia type: pure hypercholesterolemia Qualified Code(s): E78.00 - Pure hypercholesterolemia, unspecified Is this a current diagnosis for this admission?: Yes (7) HTN (hypertension) Qualifiers: Hypertension type: essential hypertension Qualified Code(s): I10 - Essential (primary) hypertension Is this a current diagnosis for this admission?: Yes - Time Time Spent with patient: 15-24 minutes Medications reviewed and adjusted accordingly: Yes Anticipated discharge: Other Within: Other - Inpatient Certification Medical Necessity: Need for IV Antibiotics Post Hospital Care: D/C Cardiac Cath Lab Manager Documentation - Plan Summary Plan Summary: Continue IV antibiotic Patient still having some loose stool will check stool for the C. difficile
[2017-06-09] MEDS ORDERED: NYSTATIN CREAM 15 GM TP SCH (18:00)
[2017-06-09] MEDS: ATORVASTATIN CALCIUM 40 MG TABLET PO SCH (22:24)
[2017-06-10 04:59] LABS: ABSOLUTE EOSINOPHILS # (AUTO) 0.3 10^3/uL (0.0-0.6); ABSOLUTE LYMPHOCYTES (AUTO) 2.2 10^3/uL (0.5-4.7); ABSOLUTE MONOCYTES (AUTO) 0.9 10^3/uL (0.1-1.4); BASOPHILS % (AUTO) 0.2 % (0-2); EOSINOPHILS % (AUTO) 4.1 % (0-6); HEMATOCRIT 25.3 % (36.0-47.0); HEMOGLOBIN 8.1 g/dL (12.0-15.5); LYMPHOCYTES % (AUTO) 29.2 % (13-45); MEAN CORPUSCULAR VOLUME 88 fl (80-97); MONOCYTES % (AUTO) 12.4 % (3-13); PLATELET COUNT 228 10^3/uL (150-450); RED BLOOD COUNT 2.88 10^6/uL (3.72-5.28); RED CELL DISTRIBUTION WIDTH 16.1 % (11.5-14.0); SEGMENTED NEUTROPHILS % (AUTO) 54.1 % (42-78); TOTAL CELLS COUNTED % (AUTO) 100 %; WHITE BLOOD COUNT 7.4 10^3/uL (4.0-10.5)
[2017-06-10] MEDS: HEPARIN SOD (PORCINE) 5,000 UNIT/ML 1 ML SYRINGE SUBCUT SCH ×3 (05:22→21:47)
[2017-06-10] MEDS: PIPERACILLIN SODIUM/TAZOBACTAM 3.375 GM in NORMAL SALINE 100 ML IV SCH ×4 (05:23→23:06)
[2017-06-10] MEDS: LANSOPRAZOLE 30 MG TAB.RAP.DR PO SCH (05:23)
[2017-06-10] MEDS: GABAPENTIN 300 MG CAPSULE PO SCH ×4 (05:23→23:06)
[2017-06-10 05:25] LABS: ANION GAP 7 (5-19); BLOOD UREA NITROGEN 21 mg/dL (7-20); CALCIUM 8.6 mg/dL (8.4-10.2); CARBON DIOXIDE 24 mmol/L (22-30); CHLORIDE 112 mmol/L (98-107); GLUCOSE 90 mg/dL (75-110); POTASSIUM 4.3 mmol/L (3.6-5.0)
[2017-06-10] MEDS: CARVEDILOL 12.5 MG TABLET PO SCH ×2 (10:56→21:47)
[2017-06-10] MEDS: NITROGLYCERIN 10 MG (0.4 MG/HR) PATCH.TD24 TD SCH (10:56)
[2017-06-10] MEDS: ASPIRIN 81 MG TABLET, ENT COATED PO SCH (11:04)
[2017-06-10] MEDS: INSULIN GLARGINE,HUM.REC.ANLOG 300 UNIT/3 ML INSULN.PEN SUBCUT SCH ×2 (11:04→21:47)
[2017-06-10] MEDS: INSULIN LISPRO 100 UNIT/ML 3 ML VIAL SUBCUT SCH ×3 (11:05→18:09)
--- NOTE | 2017-06-10 11:35 | PDOC PROGRESS REPORT ---
Subjective Progress Note for:: 06/10/17 Subjective:: Patient is currently doing fair Patient's denied any chest pain Patient's denied any shortness of the breath Patient have a chronic wound on the left foot Reason For Visit: LEFT HEEL WOUND INFECTION, HYPERGLYCEMIA, Physical Exam Vital Signs: Temp Pulse Resp BP Pulse Ox 99.3 F 58 L 13 100/49 L 97 06/10/17 07:58 06/10/17 07:58 06/10/17 07:58 06/10/17 07:58 06/10/17 07:58 Intake & Output 06/09/17 06/10/17 06/11/17 06:59 06:59 06:59 Intake Total 3624 3190 Output Total 950 310 Balance 2674 2880 Weight 117.7 kg 118.7 kg General appearance: PRESENT: no acute distress, well-developed, well-nourished Head exam: PRESENT: atraumatic, normocephalic Eye exam: PRESENT: conjunctiva pink, EOMI, PERRLA. ABSENT: scleral icterus Ear exam: PRESENT: normal external ear exam Mouth exam: PRESENT: moist, tongue midline Neck exam: PRESENT: full ROM. ABSENT: carotid bruit, JVD, lymphadenopathy, thyromegaly Respiratory exam: PRESENT: clear to auscultation jerrica Cardiovascular exam: PRESENT: RRR. ABSENT: diastolic murmur, rubs, systolic murmur Pulses: PRESENT: normal dorsalis pedis pul, +2 pedal pulses bilateral Vascular exam: PRESENT: normal capillary refill GI/Abdominal exam: PRESENT: normal bowel sounds, soft. ABSENT: distended, guarding, mass, organolmegaly, rebound, tenderness Rectal exam: PRESENT: deferred Extremities exam: PRESENT: pedal edema Additional comments: Left lower extremity wound VAC is present Neurological exam: PRESENT: alert, awake, oriented to person, oriented to place. ABSENT: motor sensory deficit Psychiatric exam: PRESENT: appropriate affect, normal mood. ABSENT: homicidal ideation, suicidal ideation Skin exam: PRESENT: dry, intact, warm. ABSENT: cyanosis, rash Results Laboratory Results: 06/10/17 04:36 06/10/17 04:36 06/10/17 06/10/17 04:36 04:36 WBC 7.4 RBC 2.88 L Hgb 8.1 L Hct 25.3 L MCV 88 MCH 28.0 MCHC 32.0 RDW 16.1 H Plt Count 228 Seg Neutrophils % 54.1 Lymphocytes % 29.2 Monocytes % 12.4 Eosinophils % 4.1 Basophils % 0.2 Absolute Neutrophils 4.0 Absolute Lymphocytes 2.2 Absolute Monocytes 0.9 Absolute Eosinophils 0.3 Absolute Basophils 0.0 Sodium 143.0 Potassium 4.3 Chloride 112 H Carbon Dioxide 24 Anion Gap 7 BUN 21 H Creatinine 1.52 H Est GFR ( Amer) 42 L Est GFR (Non-Af Amer) 35 L Glucose 90 Calcium 8.6 06/04/17 18:50 Blood Blood Culture - Final NO GROWTH IN 5 DAYS Impressions: Foot X-Ray 06/04/17 14:52 IMPRESSION: Severe osteopenia without obvious osteomyelitis. Extensive soft tissue defect worse than previous. Venous Doppler Study 06/08/17 00:00 IMPRESSION: NO EVIDENCE OF DVT OR SVT IN THE LEFT LEG. Assessment & Plan - Diagnosis (1) 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 2 diabetes mellitus Qualifiers: Diabetic foot ulcer location: heel Is this a current diagnosis for this admission?: Yes Plan: Continues to IV antibiotic as the general surgery for further evaluations (2) PVD (peripheral vascular disease) Is this a current diagnosis for this admission?: Yes Plan: Wait for the ultrasound report (3) Acute on chronic systolic CHF (congestive heart failure) Is this a current diagnosis for this admission?: Yes Plan: Continue the current medication the current medication (4) Anemia of chronic disease Is this a current diagnosis for this admission?: Yes Plan: Is to monitor (5) Chronic use of opiate for therapeutic purpose Is this a current diagnosis for this admission?: Yes (6) HLD (hyperlipidemia) Qualifiers: Hyperlipidemia type: pure hypercholesterolemia Qualified Code(s): E78.00 - Pure hypercholesterolemia, unspecified Is this a current diagnosis for this admission?: Yes (7) HTN (hypertension) Qualifiers: Hypertension type: essential hypertension Qualified Code(s): I10 - Essential (primary) hypertension Is this a current diagnosis for this admission?: Yes - Time Time Spent with patient: 15-24 minutes Medications reviewed and adjusted accordingly: Yes Anticipated discharge: Other Within: Other - Inpatient Certification Medical Necessity: Need Close Monitoring Due to Risk of Patient Decompensation, Need for IV Antibiotics Post Hospital Care: D/C Testing Shaking Shipping Documentation - Plan Summary Plan Summary: Continues to IV antibiotic repeat the CBC and Chem-7 in the morning may be required a blood transfusion if hemoglobin drops below 8 point
[2017-06-10] MEDS: NORMAL SALINE 1000 ML 1,000 ML IV PRN (14:18)
[2017-06-10] MEDS: INSULIN LISPRO 100 UNIT/ML 3 ML VIAL SUBCUT PRN (18:38)
[2017-06-10] MEDS: ATORVASTATIN CALCIUM 40 MG TABLET PO SCH (21:48)
[2017-06-10] MEDS: OXYCODONE HCL IR 5 MG TABLET PO PRN (22:09)
[2017-06-11] MEDS: LANSOPRAZOLE 30 MG TAB.RAP.DR PO SCH (06:06)
[2017-06-11] MEDS: GABAPENTIN 300 MG CAPSULE PO SCH ×3 (06:06→18:23)
[2017-06-11] MEDS: HEPARIN SOD (PORCINE) 5,000 UNIT/ML 1 ML SYRINGE SUBCUT SCH ×3 (06:06→21:02)
[2017-06-11] MEDS: PIPERACILLIN SODIUM/TAZOBACTAM 3.375 GM in NORMAL SALINE 100 ML IV SCH ×3 (06:07→19:36)
[2017-06-11 07:34] LABS: ABSOLUTE EOSINOPHILS # (AUTO) 0.3 10^3/uL (0.0-0.6); ABSOLUTE LYMPHOCYTES (AUTO) 2.1 10^3/uL (0.5-4.7); ABSOLUTE MONOCYTES (AUTO) 0.9 10^3/uL (0.1-1.4); ABSOLUTE NEUT (AUTO) 4.3 10^3/uL (1.7-8.2); BASOPHILS % (AUTO) 0.2 % (0-2); HEMATOCRIT 27.3 % (36.0-47.0); HEMOGLOBIN 8.7 g/dL (12.0-15.5); LYMPHOCYTES % (AUTO) 27.2 % (13-45); MEAN CORPUSCULAR HGB CONC 31.8 g/dL (32.0-36.0); MEAN CORPUSCULAR VOLUME 88 fl (80-97); MONOCYTES % (AUTO) 11.5 % (3-13); PLATELET COUNT 253 10^3/uL (150-450); RED CELL DISTRIBUTION WIDTH 16.2 % (11.5-14.0); SEGMENTED NEUTROPHILS % (AUTO) 57.1 % (42-78); TOTAL CELLS COUNTED % (AUTO) 100 %; WHITE BLOOD COUNT 7.6 10^3/uL (4.0-10.5)
[2017-06-11 07:55] LABS: ANION GAP 8 (5-19); BLOOD UREA NITROGEN 22 mg/dL (7-20); CALCIUM 9.1 mg/dL (8.4-10.2); CARBON DIOXIDE 24 mmol/L (22-30); CHLORIDE 111 mmol/L (98-107); GLUCOSE 74 mg/dL (75-110); POTASSIUM 4.2 mmol/L (3.6-5.0); SODIUM 142.8 mmol/L (137-145)
[2017-06-11] MEDS: ASPIRIN 81 MG TABLET, ENT COATED PO SCH (09:27)
[2017-06-11] MEDS: CARVEDILOL 12.5 MG TABLET PO SCH ×2 (09:27→21:02)
[2017-06-11] MEDS: NYSTATIN CREAM 15 GM TP SCH ×2 (09:28→19:37)
[2017-06-11] MEDS: FLUCONAZOLE 100 MG TABLET PO SCH (09:28)
[2017-06-11] MEDS: INSULIN LISPRO 100 UNIT/ML 3 ML VIAL SUBCUT SCH ×3 (09:30→18:25)
[2017-06-11] MEDS: INSULIN GLARGINE,HUM.REC.ANLOG 300 UNIT/3 ML INSULN.PEN SUBCUT SCH ×2 (09:38→22:05)
[2017-06-11] MEDS: NITROGLYCERIN 10 MG (0.4 MG/HR) PATCH.TD24 TD SCH (09:40)
[2017-06-11] MEDS: NORMAL SALINE 1000 ML 1,000 ML IV PRN (13:31)
--- NOTE | 2017-06-11 18:03 | PDOC PROGRESS REPORT ---
Subjective Progress Note for:: 06/11/17 Subjective:: Patient denied any chest pain or difficulty with breathing. No nausea, vomiting or abdominal pain. No fever or chills. Remain on IV Zosyn coverage and oral Diflucan. I discussed her arterial duplex study findings with Dr Flavio Del Angel. Reason For Visit: LEFT HEEL WOUND INFECTION, HYPERGLYCEMIA, Physical Exam Vital Signs: Temp Pulse Resp BP Pulse Ox 97.9 F 65 16 132/61 H 100 06/11/17 07:39 06/11/17 07:39 06/11/17 07:39 06/11/17 07:39 06/11/17 07:39 Intake & Output 06/10/17 06/11/17 06/12/17 06:59 06:59 06:59 Intake Total 3190 2946 Output Total 310 300 Balance 2880 2646 Weight 118.7 kg 116.3 kg Physical Exam: General appearance: PRESENT: no acute distress, morbidly obese Head exam: PRESENT: atraumatic, normocephalic Eye exam: PRESENT: conjunctiva pink, EOMI, PERRLA. ABSENT: scleral icterus Mouth exam: PRESENT: moist Respiratory exam: PRESENT: clear to auscultation jerrica, decreased breath sounds - lower lung zones Cardiovascular exam: PRESENT: RRR. ABSENT: diastolic murmur, rubs, systolic murmur Pulses: PRESENT: +1 pedal pulses bilateral Vascular exam: PRESENT: normal capillary refill. ABSENT: pallor GI/Abdominal exam: PRESENT: normal bowel sounds, soft. ABSENT: distended, guarding, mass, organomegaly, rebound, tenderness Extremities exam: PRESENT: pedal edema - minimal Musculoskeletal exam: PRESENT: deformity - OA features and left hindfoot ulcer Neurological exam: PRESENT: alert, awake, oriented to person, oriented to place , oriented to time, oriented to situation, CN II-XII grossly intact. ABSENT: motor sensory deficit Psychiatric exam: PRESENT: appropriate affect, normal mood. ABSENT: homicidal ideation, suicidal ideation Skin exam: PRESENT: dry, warm, other - infected left foot diabetic ulcer with wound vac device in use. ABSENT: cyanosis, rash Results Laboratory Results: 06/11/17 07:26 06/11/17 07:26 06/11/17 06/11/17 07:26 07:26 WBC 7.6 RBC 3.10 L Hgb 8.7 L Hct 27.3 L MCV 88 MCH 28.0 MCHC 31.8 L RDW 16.2 H Plt Count 253 Seg Neutrophils % 57.1 Lymphocytes % 27.2 Monocytes % 11.5 Eosinophils % 4.0 Basophils % 0.2 Absolute Neutrophils 4.3 Absolute Lymphocytes 2.1 Absolute Monocytes 0.9 Absolute Eosinophils 0.3 Absolute Basophils 0.0 Sodium 142.8 Potassium 4.2 Chloride 111 H Carbon Dioxide 24 Anion Gap 8 BUN 22 H Creatinine 1.58 H Est GFR ( Amer) 40 L Est GFR (Non-Af Amer) 33 L Glucose 74 L Calcium 9.1 Impressions: Foot X-Ray 06/04/17 14:52 IMPRESSION: Severe osteopenia without obvious osteomyelitis. Extensive soft tissue defect worse than previous. Venous Doppler Study 06/08/17 00:00 IMPRESSION: NO EVIDENCE OF DVT OR SVT IN THE LEFT LEG. Assessment & Plan - Diagnosis (1) 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 2 diabetes mellitus Qualifiers: Diabetic foot ulcer location: heel Is this a current diagnosis for this admission?: Yes (2) Diabetes mellitus type 2 in obese Is this a current diagnosis for this admission?: Yes (3) PVD (peripheral vascular disease) Is this a current diagnosis for this admission?: Yes (4) Chronic combined systolic and diastolic CHF (congestive heart failure) Is this a current diagnosis for this admission?: Yes (5) HTN (hypertension) Qualifiers: Hypertension type: essential hypertension Qualified Code(s): I10 - Essential (primary) hypertension Is this a current diagnosis for this admission?: Yes (6) S/P CABG (coronary artery bypass graft) Is this a current diagnosis for this admission?: Yes (7) Hx of stroke without residual deficits Is this a current diagnosis for this admission?: Yes - Time Time Spent with patient: 25-34 minutes Medications reviewed and adjusted accordingly: Yes Anticipated discharge: Home with Homehealth Within: Other - Inpatient Certification Based on my medical assessment, after consideration of the patient's comorbidities, presenting symptoms, or acuity I expect that the services needed warrant INPATIENT care.: Yes I certify that my determination is in accordance with my understanding of Medicare's requirements for reasonable and necessary INPATIENT services [42 CFR 412.3e].: Yes Medical Necessity: Need Close Monitoring Due to Risk of Patient Decompensation, Need For IV Fluids, Need For Continuous Telemetry Monitoring, Need for IV Antibiotics, Risk of Complication if Not Cared For in Hospital Post Hospital Care: D/C Control Systems Designer Documentation - Plan Summary Plan Summary: See attending physician orders.
[2017-06-11] MEDS: OXYCODONE HCL IR 5 MG TABLET PO PRN (21:02)
[2017-06-11] MEDS: ATORVASTATIN CALCIUM 40 MG TABLET PO SCH (21:02)
[2017-06-11] MEDS: COLLAGENASE CLOSTRIDIUM HIST. OINT 30 GM TP SCH (21:05)
[2017-06-12] MEDS: GABAPENTIN 300 MG CAPSULE PO SCH ×4 (00:14→18:31)
[2017-06-12] MEDS: PIPERACILLIN SODIUM/TAZOBACTAM 3.375 GM in NORMAL SALINE 100 ML IV SCH ×4 (00:14→18:31)
[2017-06-12] MEDS: OXYCODONE HCL IR 5 MG TABLET PO PRN ×2 (03:03→12:26)
[2017-06-12] MEDS: HEPARIN SOD (PORCINE) 5,000 UNIT/ML 1 ML SYRINGE SUBCUT SCH ×2 (05:22→13:28)
[2017-06-12] MEDS: LANSOPRAZOLE 30 MG TAB.RAP.DR PO SCH (05:22)
[2017-06-12 05:42] LABS: ANION GAP 7 (5-19); BLOOD UREA NITROGEN 19 mg/dL (7-20); CALCIUM 8.9 mg/dL (8.4-10.2); CARBON DIOXIDE 23 mmol/L (22-30); CHLORIDE 113 mmol/L (98-107); GLUCOSE 77 mg/dL (75-110); POTASSIUM 4.3 mmol/L (3.6-5.0); SODIUM 142.5 mmol/L (137-145)
--- NOTE | 2017-06-12 08:03 | PDOC PROGRESS REPORT ---
Subjective Progress Note for:: 06/12/17 Subjective:: No fever or chills. No chest pain. No abdominal pain, nausea, or vomiting. Arterial duplex study suggested multilevel severe disease process. Patient had prior vascular intervention in same leg. Reason For Visit: LEFT HEEL WOUND INFECTION, HYPERGLYCEMIA, Physical Exam Vital Signs: Temp Pulse Resp BP Pulse Ox 98.4 F 61 16 140/61 H 99 06/11/17 23:03 06/12/17 02:00 06/11/17 23:03 06/11/17 23:03 06/11/17 23:03 Intake & Output 06/11/17 06/12/17 06/13/17 06:59 06:59 06:59 Intake Total 2946 2714 Output Total 300 1500 Balance 2646 1214 Weight 116.3 kg 120.4 kg Physical Exam: General appearance: PRESENT: no acute distress, morbidly obese Head exam: PRESENT: atraumatic, normocephalic Eye exam: PRESENT: conjunctiva pink, EOMI, PERRLA. ABSENT: scleral icterus Mouth exam: PRESENT: moist Respiratory exam: PRESENT: clear to auscultation jerrica, decreased breath sounds - lower lung zones Cardiovascular exam: PRESENT: RRR. ABSENT: diastolic murmur, rubs, systolic murmur Pulses: PRESENT: +1 pedal pulses bilateral Vascular exam: PRESENT: normal capillary refill. ABSENT: pallor GI/Abdominal exam: PRESENT: normal bowel sounds, soft. ABSENT: distended, guarding, mass, organomegaly, rebound, tenderness Extremities exam: PRESENT: pedal edema - minimal Musculoskeletal exam: PRESENT: deformity - OA features and left hindfoot ulcer Neurological exam: PRESENT: alert, awake, oriented to person, oriented to place , oriented to time, oriented to situation, CN II-XII grossly intact. ABSENT: motor sensory deficit Psychiatric exam: PRESENT: appropriate affect, normal mood. ABSENT: homicidal ideation, suicidal ideation Skin exam: PRESENT: dry, warm, other - infected left foot diabetic ulcer with wound vac device in use. ABSENT: cyanosis, rash Results Laboratory Results: 06/11/17 07:26 06/12/17 05:02 06/11/17 06/12/17 07:26 05:02 Sodium 142.8 142.5 Potassium 4.2 4.3 Chloride 111 H 113 H Carbon Dioxide 24 23 Anion Gap 8 7 BUN 22 H 19 Creatinine 1.58 H 1.40 H Est GFR ( Amer) 40 L 46 L Est GFR (Non-Af Amer) 33 L 38 L Glucose 74 L 77 Calcium 9.1 8.9 Impressions: Foot X-Ray 06/04/17 14:52 IMPRESSION: Severe osteopenia without obvious osteomyelitis. Extensive soft tissue defect worse than previous. Venous Doppler Study 06/08/17 00:00 IMPRESSION: NO EVIDENCE OF DVT OR SVT IN THE LEFT LEG. Assessment & Plan - Diagnosis (1) 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 2 diabetes mellitus Qualifiers: Diabetic foot ulcer location: heel Is this a current diagnosis for this admission?: Yes (2) Diabetes mellitus type 2 in obese Is this a current diagnosis for this admission?: Yes (3) PVD (peripheral vascular disease) Is this a current diagnosis for this admission?: Yes (4) Chronic combined systolic and diastolic CHF (congestive heart failure) Is this a current diagnosis for this admission?: Yes (5) HTN (hypertension) Qualifiers: Hypertension type: essential hypertension Qualified Code(s): I10 - Essential (primary) hypertension Is this a current diagnosis for this admission?: Yes (6) S/P CABG (coronary artery bypass graft) Is this a current diagnosis for this admission?: Yes (7) Hx of stroke without residual deficits Is this a current diagnosis for this admission?: Yes - Time Time Spent with patient: 25-34 minutes Medications reviewed and adjusted accordingly: Yes Anticipated discharge: Home with Homehealth Within: Other - Inpatient Certification Based on my medical assessment, after consideration of the patient's comorbidities, presenting symptoms, or acuity I expect that the services needed warrant INPATIENT care.: Yes I certify that my determination is in accordance with my understanding of Medicare's requirements for reasonable and necessary INPATIENT services [42 CFR 412.3e].: Yes Medical Necessity: Need Close Monitoring Due to Risk of Patient Decompensation, Need For IV Fluids, Need For Continuous Telemetry Monitoring, Need for IV Antibiotics, Risk of Complication if Not Cared For in Hospital Post Hospital Care: D/C Hunter Skin Diver Documentation - Plan Summary Plan Summary: See attending physician orders.
--- NOTE | 2017-06-12 09:08 | XCELERA REPORT ---
[address] [address] Lower Extremity Arterial Evaluation Name: JAVIER BURGER Age: 61 yrs Gender: Female : 1955 Patient Status: Inpatient Patient Location: [address] [place], [place] [id number] Study Date: 06/08/2017 10:28 AM Procedure: A color flow and duplex scan of the lower extremity arteries was performed on the left with velocity and waveform anaylsis. Reason For Study: nonhealing ulcer on left heel Ordering Physician: STEPHAN TAFOYA Performed By: Christina Knight Measurements and Calculations Right Left FINISHER FINE DIAMOND DIES PSV 129.5 cm/sec Prox PFA PSV -377.1 cm/sec Prox SFA PSV -52.1 cm/sec Prox Pop A PSV 55.9 cm/sec Dist ASHLEY PSV 25.9 cm/sec Dist PARISH VISITOR PSV 50.6 cm/sec Nicholas Pedis PSV 36.0 -15.8 cm/sec Right Side Arterial Evaluation Biphasic waveform at the Dorsalis Pedis in very limited evaluation. Left Side Arterial Evaluation Normal velocity and biphasic waveforms noted in the Common Femoral artery. Biphasic stenotic waveform in the Deep Femoral artery. Occlusion in the Femoral artery, with monophasic reconstitution, moderately preserved amplitude to the infrageniculate vessels. 20-49 % stenosis at Aorta Iliac inflow, occluded Femoral artery. With sequential disease. Ankle Brachial index was not done due to bandaging. Interpretation Summary Very severe, multilevel disease in the left lower extremity. : STEPHAN TAFOYA > Flavio Del Angel
[2017-06-12] MEDS: INSULIN GLARGINE,HUM.REC.ANLOG 300 UNIT/3 ML INSULN.PEN SUBCUT SCH (11:45)
[2017-06-12] MEDS: ASPIRIN 81 MG TABLET, ENT COATED PO SCH (11:46)
[2017-06-12] MEDS: CARVEDILOL 12.5 MG TABLET PO SCH (11:46)
[2017-06-12] MEDS: FLUCONAZOLE 100 MG TABLET PO SCH (11:46)
[2017-06-12] MEDS: NORMAL SALINE 1000 ML 1,000 ML IV PRN (11:47)
[2017-06-12] MEDS: NITROGLYCERIN 10 MG (0.4 MG/HR) PATCH.TD24 TD SCH (11:48)
[2017-06-12] MEDS: NYSTATIN CREAM 15 GM TP SCH ×2 (11:49→18:32)
[2017-06-12] MEDS: INSULIN LISPRO 100 UNIT/ML 3 ML VIAL SUBCUT SCH ×3 (11:49→18:41)
[2017-06-13] MEDS: CARVEDILOL 12.5 MG TABLET PO SCH ×3 (00:13→22:53)
[2017-06-13] MEDS: INSULIN GLARGINE,HUM.REC.ANLOG 300 UNIT/3 ML INSULN.PEN SUBCUT SCH ×3 (00:14→23:01)
[2017-06-13] MEDS: ATORVASTATIN CALCIUM 40 MG TABLET PO SCH ×2 (00:14→22:54)
[2017-06-13] MEDS: GABAPENTIN 300 MG CAPSULE PO SCH ×5 (00:14→23:13)
[2017-06-13] MEDS: HEPARIN SOD (PORCINE) 5,000 UNIT/ML 1 ML SYRINGE SUBCUT SCH ×4 (00:14→22:54)
[2017-06-13] MEDS: OXYCODONE HCL IR 5 MG TABLET PO PRN ×2 (00:15→20:40)
[2017-06-13] MEDS: PIPERACILLIN SODIUM/TAZOBACTAM 3.375 GM in NORMAL SALINE 100 ML IV SCH ×5 (00:18→23:14)
[2017-06-13] MEDS: LANSOPRAZOLE 30 MG TAB.RAP.DR PO SCH (05:20)
[2017-06-13] MEDS: INSULIN LISPRO 100 UNIT/ML 3 ML VIAL SUBCUT SCH ×3 (08:20→17:11)
[2017-06-13] MEDS: NITROGLYCERIN 10 MG (0.4 MG/HR) PATCH.TD24 TD SCH (10:28)
[2017-06-13] MEDS: ASPIRIN 81 MG TABLET, ENT COATED PO SCH (10:31)
[2017-06-13] MEDS: FLUCONAZOLE 100 MG TABLET PO SCH (10:31)
[2017-06-13] MEDS: NORMAL SALINE 1000 ML 1,000 ML IV PRN (10:50)
[2017-06-13] MEDS: NYSTATIN CREAM 15 GM TP SCH ×2 (10:53→17:10)
[2017-06-13] MEDS: INSULIN LISPRO 100 UNIT/ML 3 ML VIAL SUBCUT PRN (17:10)
--- NOTE | 2017-06-13 18:38 | PDOC PROGRESS REPORT ---
Subjective Progress Note for:: 06/13/17 Subjective:: No chest pain or difficulty with breathing. No abdominal pain, nausea, or vomiting. No fever or chills. Remain on IV antibiotic therapy. Reason For Visit: LEFT HEEL WOUND INFECTION, HYPERGLYCEMIA, Physical Exam Vital Signs: Temp Pulse Resp BP Pulse Ox 99.5 F 66 12 173/78 H 98 06/13/17 15:35 06/13/17 15:35 06/13/17 15:35 06/13/17 15:35 06/13/17 15:35 Intake & Output 06/12/17 06/13/17 06/14/17 06:59 06:59 06:59 Intake Total 2714 3100 1035 Output Total 1500 600 700 Balance 1214 2500 335 Weight 120.4 kg 124.5 kg Physical Exam: General appearance: PRESENT: no acute distress, morbidly obese Head exam: PRESENT: atraumatic, normocephalic Eye exam: PRESENT: conjunctiva pink, EOMI, PERRLA. ABSENT: scleral icterus Mouth exam: PRESENT: moist Respiratory exam: PRESENT: clear to auscultation jerrica, decreased breath sounds - lower lung zones Cardiovascular exam: PRESENT: RRR. ABSENT: diastolic murmur, rubs, systolic murmur GI/Abdominal exam: PRESENT: normal bowel sounds, soft. ABSENT: distended, guarding, mass, organomegaly, rebound, tenderness Extremities exam: PRESENT: pedal edema - minimal Musculoskeletal exam: PRESENT: deformity - OA features and left hindfoot ulcer Neurological exam: PRESENT: alert, awake, oriented to person, oriented to place , oriented to time, oriented to situation, CN II-XII grossly intact. ABSENT: motor sensory deficit Psychiatric exam: PRESENT: appropriate affect, normal mood. ABSENT: homicidal ideation, suicidal ideation Skin exam: PRESENT: dry, warm, other - infected left foot diabetic ulcer with wound vac device in use. ABSENT: cyanosis, rash Results Laboratory Results: 06/11/17 07:26 06/12/17 05:02 Impressions: Foot X-Ray 06/04/17 14:52 IMPRESSION: Severe osteopenia without obvious osteomyelitis. Extensive soft tissue defect worse than previous. Venous Doppler Study 06/08/17 00:00 IMPRESSION: NO EVIDENCE OF DVT OR SVT IN THE LEFT LEG. Assessment & Plan - Diagnosis (1) 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 2 diabetes mellitus Qualifiers: Diabetic foot ulcer location: heel Is this a current diagnosis for this admission?: Yes (2) Diabetes mellitus type 2 in obese Is this a current diagnosis for this admission?: Yes (3) PVD (peripheral vascular disease) Is this a current diagnosis for this admission?: Yes (4) Chronic combined systolic and diastolic CHF (congestive heart failure) Is this a current diagnosis for this admission?: Yes (5) HTN (hypertension) Qualifiers: Hypertension type: essential hypertension Qualified Code(s): I10 - Essential (primary) hypertension Is this a current diagnosis for this admission?: Yes (6) S/P CABG (coronary artery bypass graft) Is this a current diagnosis for this admission?: Yes (7) Hx of stroke without residual deficits Is this a current diagnosis for this admission?: Yes - Time Time Spent with patient: 25-34 minutes Medications reviewed and adjusted accordingly: Yes Anticipated discharge: Home with Homehealth Within: within 48 hours - Inpatient Certification Based on my medical assessment, after consideration of the patient's comorbidities, presenting symptoms, or acuity I expect that the services needed warrant INPATIENT care.: Yes I certify that my determination is in accordance with my understanding of Medicare's requirements for reasonable and necessary INPATIENT services [42 CFR 412.3e].: Yes Medical Necessity: Need Close Monitoring Due to Risk of Patient Decompensation, Need For Continuous Telemetry Monitoring, Need for IV Antibiotics, Risk of Complication if Not Cared For in Hospital Post Hospital Care: D/C Fire Safety Manager Documentation - Plan Summary Plan Summary: Continue current antibiotic therapy. We will arrange on outpatient for vascular consultation in view of her prior intervention by Dr. payne
[2017-06-13] MEDS: COLLAGENASE CLOSTRIDIUM HIST. OINT 30 GM TP SCH (22:46)
[2017-06-13] MEDS: INSULIN GLARGINE,HUM.REC.ANLOG 1,000 UNIT/10 ML UNIT SUBCUT ONE (22:50)
[2017-06-14] MEDS: INSULIN GLARGINE,HUM.REC.ANLOG 300 UNIT/3 ML INSULN.PEN SUBCUT SCH ×3 (00:06→22:22)
[2017-06-14 05:00] LABS: ABSOLUTE EOSINOPHILS # (AUTO) 0.3 10^3/uL (0.0-0.6); ABSOLUTE LYMPHOCYTES (AUTO) 2.4 10^3/uL (0.5-4.7); ABSOLUTE NEUT (AUTO) 5.7 10^3/uL (1.7-8.2); BASOPHILS % (AUTO) 0.5 % (0-2); EOSINOPHILS % (AUTO) 2.9 % (0-6); HEMATOCRIT 25.2 % (36.0-47.0); HEMOGLOBIN 8.1 g/dL (12.0-15.5); LYMPHOCYTES % (AUTO) 25.4 % (13-45); MEAN CORPUSCULAR HEMOGLOBIN 28.2 pg (27.0-33.4); MEAN CORPUSCULAR HGB CONC 32.1 g/dL (32.0-36.0); MEAN CORPUSCULAR VOLUME 88 fl (80-97); MONOCYTES % (AUTO) 10.4 % (3-13); PLATELET COUNT 254 10^3/uL (150-450); RED BLOOD COUNT 2.86 10^6/uL (3.72-5.28); RED CELL DISTRIBUTION WIDTH 16.4 % (11.5-14.0); SEGMENTED NEUTROPHILS % (AUTO) 60.8 % (42-78); TOTAL CELLS COUNTED % (AUTO) 100 %; WHITE BLOOD COUNT 9.4 10^3/uL (4.0-10.5)
[2017-06-14 05:22] LABS: ALANINE AMINOTRANSFERASE 26 U/L (9-52); ALBUMIN 2.9 g/dL (3.5-5.0); ALKALINE PHOSPHATASE 221 U/L (38-126); ANION GAP 10 (5-19); ASPARTATE AMINO TRANSFERASE 33 U/L (14-36); BILIRUBIN,DIRECT 0.2 mg/dL (0.0-0.4); BILIRUBIN,TOTAL 0.5 mg/dL (0.2-1.3); BLOOD UREA NITROGEN 14 mg/dL (7-20); CALCIUM 9.2 mg/dL (8.4-10.2); CARBON DIOXIDE 22 mmol/L (22-30); CHLORIDE 114 mmol/L (98-107); GLUCOSE 125 mg/dL (75-110); POTASSIUM 4.7 mmol/L (3.6-5.0); SODIUM 146.3 mmol/L (137-145); TOTAL PROTEIN 6.2 g/dL (6.3-8.2)
[2017-06-14] MEDS: LANSOPRAZOLE 30 MG TAB.RAP.DR PO SCH (06:13)
[2017-06-14] MEDS: GABAPENTIN 300 MG CAPSULE PO SCH ×4 (06:13→23:26)
[2017-06-14] MEDS: HEPARIN SOD (PORCINE) 5,000 UNIT/ML 1 ML SYRINGE SUBCUT SCH ×3 (06:13→22:13)
[2017-06-14] MEDS: PIPERACILLIN SODIUM/TAZOBACTAM 3.375 GM in NORMAL SALINE 100 ML IV SCH ×4 (06:14→23:27)
[2017-06-14] MEDS: NITROGLYCERIN 10 MG (0.4 MG/HR) PATCH.TD24 TD SCH (09:23)
[2017-06-14] MEDS: ASPIRIN 81 MG TABLET, ENT COATED PO SCH (09:23)
[2017-06-14] MEDS: FLUCONAZOLE 100 MG TABLET PO SCH (09:23)
[2017-06-14] MEDS: OXYCODONE HCL IR 5 MG TABLET PO PRN ×2 (09:23→19:39)
[2017-06-14] MEDS: CARVEDILOL 12.5 MG TABLET PO SCH ×2 (09:23→22:12)
[2017-06-14] MEDS: INSULIN LISPRO 100 UNIT/ML 3 ML VIAL SUBCUT SCH ×3 (09:23→18:05)
[2017-06-14] MEDS: NORMAL SALINE 1000 ML 1,000 ML IV PRN (09:24)
[2017-06-14] MEDS: NYSTATIN CREAM 15 GM TP SCH ×2 (09:25→18:06)
[2017-06-14 16:24] LABS: ABSOLUTE EOSINOPHILS # (AUTO) 0.3 10^3/uL (0.0-0.6); ABSOLUTE LYMPHOCYTES (AUTO) 2.6 10^3/uL (0.5-4.7); ABSOLUTE MONOCYTES (AUTO) 0.8 10^3/uL (0.1-1.4); ABSOLUTE NEUT (AUTO) 5.6 10^3/uL (1.7-8.2); BASOPHILS % (AUTO) 0.5 % (0-2); EOSINOPHILS % (AUTO) 2.8 % (0-6); HEMATOCRIT 25.9 % (36.0-47.0); HEMOGLOBIN 8.3 g/dL (12.0-15.5); MEAN CORPUSCULAR HEMOGLOBIN 28.3 pg (27.0-33.4); MEAN CORPUSCULAR VOLUME 88 fl (80-97); MONOCYTES % (AUTO) 8.9 % (3-13); PLATELET COUNT 270 10^3/uL (150-450); RED BLOOD COUNT 2.93 10^6/uL (3.72-5.28); RED CELL DISTRIBUTION WIDTH 16.8 % (11.5-14.0); SEGMENTED NEUTROPHILS % (AUTO) 59.8 % (42-78); TOTAL CELLS COUNTED % (AUTO) 100 %; WHITE BLOOD COUNT 9.4 10^3/uL (4.0-10.5)
--- NOTE | 2017-06-14 19:08 | PDOC PROGRESS REPORT ---
Subjective Progress Note for:: 06/14/17 Subjective:: No chest pain or difficulty with breathing. No fever or chills. No abdominal pain, nausea, or vomiting. Remain on IV antibiotic therapy. Reason For Visit: LEFT HEEL WOUND INFECTION, HYPERGLYCEMIA, Physical Exam Vital Signs: Temp Pulse Resp BP Pulse Ox 98.2 F 67 16 145/75 H 98 06/14/17 11:23 06/14/17 14:00 06/14/17 11:23 06/14/17 11:23 06/14/17 11:23 Intake & Output 06/13/17 06/14/17 06/15/17 06:59 06:59 06:59 Intake Total 3100 3365 1709 Output Total 600 1800 500 Balance 2500 1565 1209 Weight 124.5 kg 125.6 kg Physical Exam: General appearance: PRESENT: no acute distress, morbidly obese Head exam: PRESENT: atraumatic, normocephalic Eye exam: PRESENT: conjunctiva pink, EOMI, PERRLA. ABSENT: scleral icterus Mouth exam: PRESENT: moist Respiratory exam: PRESENT: clear to auscultation jerrica, decreased breath sounds - lower lung zones Cardiovascular exam: PRESENT: RRR. ABSENT: diastolic murmur, rubs, systolic murmur GI/Abdominal exam: PRESENT: normal bowel sounds, soft. ABSENT: distended, guarding, mass, organomegaly, rebound, tenderness Extremities exam: PRESENT: pedal edema - minimal Musculoskeletal exam: PRESENT: deformity - OA features and left hindfoot ulcer Neurological exam: PRESENT: alert, awake, oriented to person, oriented to place , oriented to time, oriented to situation, CN II-XII grossly intact. ABSENT: motor sensory deficit Psychiatric exam: PRESENT: appropriate affect, normal mood. ABSENT: homicidal ideation, suicidal ideation Skin exam: PRESENT: dry, warm, other - infected left foot diabetic ulcer with wound vac device in use. ABSENT: cyanosis, rash Results Laboratory Results: 06/14/17 16:15 06/14/17 04:51 06/14/17 06/14/17 06/14/17 04:51 04:51 16:15 WBC 9.4 9.4 RBC 2.86 L 2.93 L Hgb 8.1 L 8.3 L Hct 25.2 L 25.9 L MCV 88 88 MCH 28.2 28.3 MCHC 32.1 32.0 RDW 16.4 H 16.8 H Plt Count 254 270 Seg Neutrophils % 60.8 59.8 Lymphocytes % 25.4 28.0 Monocytes % 10.4 8.9 Eosinophils % 2.9 2.8 Basophils % 0.5 0.5 Absolute Neutrophils 5.7 5.6 Absolute Lymphocytes 2.4 2.6 Absolute Monocytes 1.0 0.8 Absolute Eosinophils 0.3 0.3 Absolute Basophils 0.0 0.0 Sodium 146.3 H Potassium 4.7 Chloride 114 H Carbon Dioxide 22 Anion Gap 10 BUN 14 Creatinine 1.10 Est GFR ( Amer) > 60 Est GFR (Non-Af Amer) 50 L Glucose 125 H Calcium 9.2 Total Bilirubin 0.5 AST 33 ALT 26 Alkaline Phosphatase 221 H Total Protein 6.2 L Albumin 2.9 L Impressions: Foot X-Ray 06/04/17 14:52 IMPRESSION: Severe osteopenia without obvious osteomyelitis. Extensive soft tissue defect worse than previous. Venous Doppler Study 06/08/17 00:00 IMPRESSION: NO EVIDENCE OF DVT OR SVT IN THE LEFT LEG. Assessment & Plan - Diagnosis (1) 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 2 diabetes mellitus Qualifiers: Diabetic foot ulcer location: heel Is this a current diagnosis for this admission?: Yes (2) Diabetes mellitus type 2 in obese Is this a current diagnosis for this admission?: Yes (3) PVD (peripheral vascular disease) Is this a current diagnosis for this admission?: Yes (4) Chronic combined systolic and diastolic CHF (congestive heart failure) Is this a current diagnosis for this admission?: Yes (5) HTN (hypertension) Qualifiers: Hypertension type: essential hypertension Qualified Code(s): I10 - Essential (primary) hypertension Is this a current diagnosis for this admission?: Yes (6) S/P CABG (coronary artery bypass graft) Is this a current diagnosis for this admission?: Yes (7) Hx of stroke without residual deficits Is this a current diagnosis for this admission?: Yes - Time Time Spent with patient: 25-34 minutes Medications reviewed and adjusted accordingly: Yes Anticipated discharge: Home with Homehealth Within: within 24 hours - Inpatient Certification Based on my medical assessment, after consideration of the patient's comorbidities, presenting symptoms, or acuity I expect that the services needed warrant INPATIENT care.: Yes I certify that my determination is in accordance with my understanding of Medicare's requirements for reasonable and necessary INPATIENT services [42 CFR 412.3e].: Yes Medical Necessity: Need Close Monitoring Due to Risk of Patient Decompensation, Need For IV Fluids, Need For Continuous Telemetry Monitoring, Need for IV Antibiotics, Risk of Complication if Not Cared For in Hospital Post Hospital Care: D/C [employer] Workflow Consultant Documentation - Plan Summary Plan Summary: See attending physician orders. Day # 10 on IV antibiotic coverage. D/C antibiotic upon completion of last dose. D/C IV fluid. Start on preadmission Lasix therapy at 40 mg po daily if SBP > 110mmHg.
[2017-06-14] MEDS: ATORVASTATIN CALCIUM 40 MG TABLET PO SCH (22:12)
[2017-06-15] MEDS: LANSOPRAZOLE 30 MG TAB.RAP.DR PO SCH (06:12)
[2017-06-15] MEDS: GABAPENTIN 300 MG CAPSULE PO SCH ×2 (06:12→13:28)
[2017-06-15] MEDS: HEPARIN SOD (PORCINE) 5,000 UNIT/ML 1 ML SYRINGE SUBCUT SCH ×2 (06:13→13:29)
[2017-06-15] MEDS: INSULIN LISPRO 100 UNIT/ML 3 ML VIAL SUBCUT SCH ×2 (09:52→13:33)
[2017-06-15] MEDS: OXYCODONE HCL IR 5 MG TABLET PO PRN (09:54)
[2017-06-15] MEDS: ASPIRIN 81 MG TABLET, ENT COATED PO SCH (09:57)
[2017-06-15] MEDS: CARVEDILOL 12.5 MG TABLET PO SCH (09:57)
[2017-06-15] MEDS: FLUCONAZOLE 100 MG TABLET PO SCH (09:58)
[2017-06-15] MEDS: NITROGLYCERIN 10 MG (0.4 MG/HR) PATCH.TD24 TD SCH (09:58)
[2017-06-15] MEDS ORDERED: FUROSEMIDE 40 MG TABLET PO SCH (10:00)
[2017-06-15] MEDS: INSULIN GLARGINE,HUM.REC.ANLOG 300 UNIT/3 ML INSULN.PEN SUBCUT SCH (10:00)
[2017-06-15] MEDS: NYSTATIN CREAM 15 GM TP SCH (10:02)
--- NOTE | 2017-06-15 15:22 | PDOC DISCHARGE SUMMARY ---
General - Admit/Disc Date/PCP Admission Date/Primary Care Provider: 06/04/17 17:25 STEPHAN MICHELET Discharge Date: 06/15/17 - Discharge Diagnosis (1) 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 2 diabetes mellitus Is this a current diagnosis for this admission?: Yes (2) Diabetes mellitus type 2 in obese Is this a current diagnosis for this admission?: Yes (3) PVD (peripheral vascular disease) Is this a current diagnosis for this admission?: Yes (4) Chronic combined systolic and diastolic CHF (congestive heart failure) Is this a current diagnosis for this admission?: Yes (5) HTN (hypertension) Is this a current diagnosis for this admission?: Yes (6) S/P CABG (coronary artery bypass graft) Is this a current diagnosis for this admission?: Yes (7) Hx of stroke without residual deficits Is this a current diagnosis for this admission?: Yes - Additional Information Resuscitation Status: Full Code Discharge Diet: Cardiac, Diabetic Discharge Activity: Activity As Tolerated, Supervised Activity Prescriptions: Oxycodone HCl [Oxy-Ir 5 mg Tablet] 5 mg PO Q6HP PRN #60 tablet PRN Reason: Home Medications: Amlodipine Besylate [Norvasc 10 mg Tablet] 10 mg PO DAILY 06/04/17 Atorvastatin Calcium [Lipitor 40 mg Tablet] 40 mg PO QHS 06/04/17 Clopidogrel Bisulfate [Plavix 75 mg Tablet] 75 mg PO DAILY 06/04/17 Furosemide [Lasix 40 mg Tablet] 40 mg PO DAILY 06/04/17 Gabapentin [Neurontin 300 mg Capsule] 300 mg PO Q6 06/04/17 Insulin Glargine,Hum.rec.anlog [Lantus Solostar] 10 units SQ QAM 06/04/17 Insulin Glargine,Hum.rec.anlog [Lantus Solostar] 45 units SQ QHS 06/04/17 Insulin Lispro [Humalog Kwikpen U-100] 0 unit SQ .SLIDING SCALE 06/04/17 Lisinopril [Prinivil 30 mg Tablet] 30 mg PO Q12 06/04/17 Metformin HCl [Glucophage] 850 mg PO BID 06/04/17 Aspirin [Ecotrin 81 mg EC Tablet] 81 mg PO DAILY tabec 06/15/17 Collagenase Clostridium Hist. [Santyl Ointment 30 gm] 1 applic TP MOWEFR@2200 tube 06/15/17 Oxycodone HCl [Oxy-Ir 5 mg Tablet] 5 mg PO Q6HP PRN #60 tablet 06/15/17 History of Present Illness History of Present Illness: JAVIER BURGER is a 61 year old female patient known to my practice who presented to the ED with complain of difficulty with walking due to left foot ulcer and pain. She has history of diabetic foot ulcer and has been under comprehensive wound care management at our local wound care center as well as wound vac therapy at home without successful closure of her wound. There was concern for osteomyelitis involvement during her last hospitalization. She reported compliance with her medication and dietary restriction regarding her diabetes mellitus management. She denied any associated fever but reported episodes of chills. She reported unproductive cough. No chest pain or difficulty with breathing. No nausea, vomiting, abdominal pain, constipation or diarrhea. She denied any urinary symptoms to suggest ongoing infection. She denied headache or dizziness. Her morbidities include chronic systolic congestive Heart Failure, HTN, CAD s/p [place], CABG with quadruple bypass, HLD, Peripheral Vascular Disease, Osteoarthritis, and obesity. Hospital Course Hospital Course: Patient was admitted for left foot infected diabetic ulcer with associated pain and difficulty with walking. She did respond to antibiotic therapy. She was seen in consultation by the surgical team for wound management. Her vascular system evaluation with arterial and venous duplex study did confirm multi-level severe vascular disease involving left leg. She had vascular intervention in the past in the same leg. arrangement will be made on outpatient bases for vascular surgeon follow up appointment. Her wound culture grew E. Coli, Proteus Mirabili and Serratia Marcescen, all sensitive to IV Zosyn. She had 10 days of IV antibiotic treatment. she was seen by the physical therapy group with expressed need for 2 person maximum assistance to transfer ambulate. She vehemently refused recommendation for SNF short term rehabilitation. She want to be discharge home with TOXICOLOGY TEACHER services. Of note, her hemoglobin is clearly on downward tread but still above 8.0 gm/dL. Physical Exam Vital Signs: Temp Pulse Resp BP Pulse Ox 98.2 F 59 L 18 170/85 H 95 06/15/17 11:44 06/15/17 11:44 06/15/17 11:44 06/15/17 11:44 06/15/17 11:44 Intake & Output 06/14/17 06/15/17 06/16/17 06:59 06:59 06:59 Intake Total 3365 1809 Output Total 1800 1100 Balance 1565 709 Weight 125.6 kg 125.8 kg Physical Exam: General appearance: PRESENT: no acute distress, morbidly obese Head exam: PRESENT: atraumatic, normocephalic Eye exam: PRESENT: conjunctiva pink, EOMI, PERRLA. ABSENT: scleral icterus Mouth exam: PRESENT: moist Respiratory exam: PRESENT: clear to auscultation jerrica, decreased breath sounds - lower lung zones Cardiovascular exam: PRESENT: RRR. ABSENT: diastolic murmur, rubs, systolic murmur GI/Abdominal exam: PRESENT: normal bowel sounds, soft. ABSENT: distended, guarding, mass, organomegaly, rebound, tenderness Extremities exam: PRESENT: pedal edema - minimal Musculoskeletal exam: PRESENT: deformity - OA features and left hindfoot ulcer Neurological exam: PRESENT: alert, awake, oriented to person, oriented to place , oriented to time, oriented to situation, CN II-XII grossly intact. ABSENT: motor sensory deficit Psychiatric exam: PRESENT: appropriate affect, normal mood. ABSENT: homicidal ideation, suicidal ideation Skin exam: PRESENT: dry, warm, other - infected left foot diabetic ulcer with wound vac device in use. ABSENT: cyanosis, rash Results Laboratory Results: 06/14/17 16:15 06/14/17 04:51 06/14/17 16:15 WBC 9.4 RBC 2.93 L Hgb 8.3 L Hct 25.9 L MCV 88 MCH 28.3 MCHC 32.0 RDW 16.8 H Plt Count 270 Seg Neutrophils % 59.8 Lymphocytes % 28.0 Monocytes % 8.9 Eosinophils % 2.8 Basophils % 0.5 Absolute Neutrophils 5.6 Absolute Lymphocytes 2.6 Absolute Monocytes 0.8 Absolute Eosinophils 0.3 Absolute Basophils 0.0 Impressions: Foot X-Ray 06/04/17 14:52 IMPRESSION: Severe osteopenia without obvious osteomyelitis. Extensive soft tissue defect worse than previous. Venous Doppler Study 06/08/17 00:00 IMPRESSION: NO EVIDENCE OF DVT OR SVT IN THE LEFT LEG. Qualifiers PATEINT BEING DISCHARGED WITH ANY OF THE FOLLOWING DIAGNOSIS?: No Plan Discharge Plan: D/C home today with TOXICOLOGY TEACHER services. Follow up in the office as instructed upon discharge.
[2017-06-15 16:26] VITALS: BP 96/56
== END 2017-06-15 16:55 | disposition home health service (06) | DRG 637 ==
LOC: ER 14:28 → EH 17:25 → 4N 06-05 16:45 → ICU 06-06 20:29 → 3W 06-07 17:54
PROVIDERS: ADMIT Internal Medicine Geriatric Medicine; ATTEND Internal Medicine Geriatric Medicine
PROC: 5A19054 Respiratory Ventilation, Single, Nonmechanical (ICD-10-PCS; principal; 2017-06-06)
DX: E11.621 Type 2 diabetes mellitus with foot ulcer (principal); R09.2 Respiratory arrest; L97.425 Non-pressure chronic ulcer of left heel and midfoot with muscle involvement without evidence of necrosis; I50.22 Chronic systolic (congestive) heart failure; Z68.42 Body mass index [BMI] 45.0-49.9, adult; T40.605A Adverse effect of unspecified narcotics, initial encounter; Y92.230 Patient room in hospital as the place of occurrence of the external cause; E11.51 Type 2 diabetes mellitus with diabetic peripheral angiopathy without gangrene; B96.20 Unspecified Escherichia coli [E. coli] as the cause of diseases classified elsewhere; B96.4 Proteus (mirabilis) (morganii) as the cause of diseases classified elsewhere; B96.89 Other specified bacterial agents as the cause of diseases classified elsewhere; I25.10 Atherosclerotic heart disease of native coronary artery without angina pectoris; I11.0 Hypertensive heart disease with heart failure; E66.9 Obesity, unspecified; M19.90 Unspecified osteoarthritis, unspecified site; E78.5 Hyperlipidemia, unspecified; D64.9 Anemia, unspecified; Z79.4 Long term (current) use of insulin; Z88.8 Allergy status to other drugs, medicaments and biological substances; I25.2 Old myocardial infarction; Z95.1 Presence of aortocoronary bypass graft; Z86.73 Personal history of transient ischemic attack (TIA), and cerebral infarction without residual deficits; Z79.891 Long term (current) use of opiate analgesic; Z87.891 Personal history of nicotine dependence
CPT/HCPCS: 36415; 80048; 80053; 80061; 80202; 82565; 82962; 83036; 84439; 84443; 85025; 85652; 86140; 87040; 87070; 87077; 87186; 87205; 87493; 93926; 93971; 99285; G8978-GP; G8979-GP; J1644; J1815; J2270; J2310; J2405; J2543; J3370; J3490; J7030; J7040; J7050; J7060

== ENCOUNTER 2017-06-19 01:05 | Inpatient (IN) | payer MEDICARE, MEDICAID ==
--- NOTE | 2017-06-19 02:00 | ER Document Report ---
ED General - General Chief Complaint: Leg Pain Stated Complaint: LEG PAIN Time Seen by Provider: 06/19/17 01:49 Notes: Patient is a 61-year-old female that comes emergency department for chief complaint of fall and weakness. She states that she accidentally slipped off her couch at home, she comes by EMS, she states that she could not get up and she was on the floor for about 3+ hours until she was found. She denies fever or chills, she states that she has felt weak over the past several days, she states she simply cannot walk. She also states that she is "congested" and has some shortness of breath. She denies chest pain, headache, dizziness, focal numbness or weakness. She lives at home with her son, has home health care, states she was supposed to be getting physical therapy this week but "they never came". Past medical history of CHF, CAD, peripheral vascular disease, diabetes. TRAVEL OUTSIDE OF THE [place] IN LAST 30 DAYS: No - Related Data Allergies/Adverse Reactions: pregabalin [From Lyrica] Allergy (Verified 05/18/17 17:24) Past Medical History - General Information source: Patient - Social History Smoking Status: Never Smoker Frequency of alcohol use: None Drug Abuse: None Lives with: Family Family History: Reviewed & Not Pertinent, CAD, Hyperlipidemia, Hypertension - Past Medical History Cardiac Medical History: Reports: Hx Congestive Heart Failure, Hx Coronary Artery Disease, Hx Heart Attack, Hx Hypercholesterolemia, Hx Hypertension, Hx Peripheral Vascular Disease Denies: Hx Atrial Fibrillation, Hx Pulmonary Embolism, Hx Heart Murmur Pulmonary Medical History: Reports: Hx Bronchitis Denies: Hx Asthma, Hx COPD, Hx Pneumonia, Hx Respiratory Failure, Hx Sleep Apnea, Hx Tuberculosis Neurological Medical History: Reports: Hx Cerebrovascular Accident - 2007. Denies: Hx Seizures Endocrine Medical History: Reports: Hx Diabetes Mellitus Type 2. Denies: Hx Graves' Disease, Hx Hyperthyroidism, Hx Hypothyroidism Renal/ Medical History: Denies: Hx End Stage Renal Disease, Hx Kidney Stones, Hx Ovarian Cysts, Hx Peritoneal Dialysis, Hx Pelvic Inflammatory Disease Malignancy Medical History: Denies: Hx Breast Cancer, Hx Cervical Cancer, Hx Leukemia, Hx Lung Cancer, Hx Ovarian Cancer GI Medical History: Reports: Hx Diverticulitis - diverticulosis. Denies: Hx Crohn's Disease, Hx Gastroesophageal Reflux Disease, Hx Hiatal Hernia, Hx Irritable Bowel, Hx Liver Failure, Hx Pancreatitis, Hx Ulcer Musculoskeltal Medical History: Denies Hx Arthritis, Denies Hx Fibromyalgia, Denies Hx Multiple Sclerosis, Denies Hx Muscular Dystrophy Skin Medical History: Denies Hx MRSA Psychiatric Medical History: Denies: Hx Bipolar Disorder, Hx Dementia, Hx Depression, Hx Post Traumatic Stress Disorder, Hx Schizophrenia Traumatic Medical History: Denies: Hx Fractures Infectious Medical History: Denies: Hx HIV Past Surgical History: Reports: Hx Cardiac Surgery - Quadruple Bypass, Hx Coronary Artery Bypass Graft - July 31 2011, Hx Tonsillectomy, Hx Vascular Surgery. Denies: Hx Abdominal Surgery, Hx Appendectomy, Hx Bowel Surgery, Hx Cardiac Catheterization, Hx Section, Hx Cholecystectomy, Hx Colostomy, Hx Gastric Bypass Surgery, Hx Herniorrhaphy, Hx Hysterectomy, Hx Mastectomy, Hx Neurologic Surgery, Hx Nose Surgery, Hx Open Heart Surgery, Hx Oral Surgery, Hx Pacemaker, Hx Thyroid Surgery, Hx Tubal Ligation - Immunizations Immunizations up to date: No Hx Diphtheria, Pertussis, Tetanus Vaccination: Yes Hx Pneumococcal Vaccination: 02/04/11 Review of Systems - Review of Systems Constitutional: See HPI EENT: No symptoms reported Cardiovascular: See HPI Respiratory: See HPI Gastrointestinal: No symptoms reported Genitourinary: No symptoms reported Female Genitourinary: No symptoms reported Musculoskeletal: No symptoms reported Skin: No symptoms reported Hematologic/Lymphatic: No symptoms reported Neurological/Psychological: No symptoms reported Physical Exam - Vital signs Vitals: Resp 12 06/19/17 01:52 Interpretation: Normal - General General appearance: Alert In distress: None - HEENT Head: Normocephalic, Atraumatic Eyes: Normal Pupils: PERRL - Respiratory Respiratory status: No respiratory distress. No: Labored, Tachypnea Chest status: Nontender Breath sounds: Other - Upper respiratory congestion, soft rales in the lower lungs, good air movement otherwise Chest palpation: Normal - Cardiovascular Rhythm: Regular. No: Tachycardia Heart sounds: Normal auscultation, S1 appreciated, S2 appreciated Murmur: No Normal capillary refill: Yes - Abdominal Inspection: Normal Distension: No distension Bowel sounds: Normal Tenderness: Nontender. No: Tender, Guarding - Back Back: Normal, Nontender - Extremities General upper extremity: Normal inspection, Nontender, Normal strength, Normal temperature General lower extremity: Normal inspection, Nontender, Normal temperature. No: Edema - Neurological Neuro grossly intact: Yes Cognition: Normal Orientation: AAOx4 [place] Coma Scale Eye Opening: Spontaneous [place] Coma Scale Verbal: Oriented [place] Coma Scale Motor: Obeys Commands [place] Coma Scale Total: 15 Speech: Normal Motor strength normal: LUE, RUE, LLE, RLE Sensory: Normal - Psychological Associated symptoms: Normal affect, Normal mood - Skin Skin Temperature: Warm Skin Moisture: Dry Skin Color: Normal Course - Re-evaluation Re-evalutation: Patient is alert and conversational, complaining of weakness, states she has intermittent shortness of breath. She has congested sounding upper airway and some soft rales on exam. No overt lower extremity edema. No fever, tachycardia , or hypotension. Leukocytosis of 12 with no bandemia. Anemia stable. Chemistry essentially at baseline. BNP is elevated. Chest x-ray showing pulmonary vascular congestion. Urinalysis suggestive of infection, was cultured. Difficult to obtain IV access. I was able to obtain this using ultrasound- guided IV placement. Giving Lasix and Rocephin. Concern because of patient's weakness, inability to walk, worsening condition at home. Patient states she regrets declining m[facility] placement and states she feels like she needs it. Because of CHF exacerbation, urinary tract infection, and weakness will discussed for admission to the hospital. Discussed with Dr. Moffett, internal medicine, patient will be admitted to the hospital. Patient states agreement with this plan. - Vital Signs Vital signs: Temp Pulse Resp BP Pulse Ox 11 L 138/49 H 99 06/19/17 04:26 06/19/17 04:26 06/19/17 04:26 - Laboratory Result Diagrams: 06/19/17 02:32 06/19/17 02:32 Laboratory results interpreted by me: 06/19/17 06/19/17 06/19/17 02:32 02:32 02:32 WBC 12.2 H RBC 3.08 L Hgb 8.5 L Hct 27.1 L MCHC 31.3 L RDW 17.2 H Absolute Neutrophils 8.5 H Chloride 109 H Est GFR ( Amer) 55 L Est GFR (Non-Af Amer) 46 L Glucose 156 H Alkaline Phosphatase 246 H NT-Pro-B Natriuret Pep 3810 H Albumin 3.4 L Urine Protein Urine Blood Ur Leukocyte Esterase 06/19/17 03:25 WBC RBC Hgb Hct MCHC RDW Absolute Neutrophils Chloride Est GFR ( Amer) Est GFR (Non-Af Amer) Glucose Alkaline Phosphatase NT-Pro-B Natriuret Pep Albumin Urine Protein 100 H Urine Blood SMALL H Ur Leukocyte Esterase SMALL H Discharge - Discharge Clinical Impression: Weakness, Shortness of breath, Pulmonary vascular congestion Acute exacerbation of CHF (congestive heart failure) Qualifiers: Heart failure type: unspecified Qualified Code(s): I50.9 - Heart failure, unspecified Urinary tract infection Qualifiers: Urinary tract infection type: site unspecified Hematuria presence: without hematuria Qualified Code(s): N39.0 - Urinary tract infection, site not specified Condition: Stable Disposition: ADMITTED INPATIENT Admitting Provider: [facility] Admitted: Telemetry
[2017-06-19 02:42] LABS: ABSOLUTE BASOPHILS # (AUTO) 0.1 10^3/uL (0.0-0.2); ABSOLUTE EOSINOPHILS # (AUTO) 0.2 10^3/uL (0.0-0.6); ABSOLUTE LYMPHOCYTES (AUTO) 1.9 10^3/uL (0.5-4.7); ABSOLUTE MONOCYTES (AUTO) 1.4 10^3/uL (0.1-1.4); ABSOLUTE NEUT (AUTO) 8.5 10^3/uL (1.7-8.2); BASOPHILS % (AUTO) 0.6 % (0-2); HEMATOCRIT 27.1 % (36.0-47.0); HEMOGLOBIN 8.5 g/dL (12.0-15.5); LYMPHOCYTES % (AUTO) 15.7 % (13-45); MEAN CORPUSCULAR HEMOGLOBIN 27.5 pg (27.0-33.4); MEAN CORPUSCULAR HGB CONC 31.3 g/dL (32.0-36.0); MEAN CORPUSCULAR VOLUME 88 fl (80-97); MONOCYTES % (AUTO) 11.6 % (3-13); PLATELET COUNT 314 10^3/uL (150-450); RED BLOOD COUNT 3.08 10^6/uL (3.72-5.28); RED CELL DISTRIBUTION WIDTH 17.2 % (11.5-14.0); SEGMENTED NEUTROPHILS % (AUTO) 70.1 % (42-78); TOTAL CELLS COUNTED % (AUTO) 100 %; WHITE BLOOD COUNT 12.2 10^3/uL (4.0-10.5)
[2017-06-19 02:55] LABS: ALANINE AMINOTRANSFERASE 26 U/L (9-52); ALBUMIN 3.4 g/dL (3.5-5.0); ALKALINE PHOSPHATASE 246 U/L (38-126); ANION GAP 10 (5-19); ASPARTATE AMINO TRANSFERASE 22 U/L (14-36); BILIRUBIN,DIRECT 0.3 mg/dL (0.0-0.4); BILIRUBIN,TOTAL 0.9 mg/dL (0.2-1.3); BLOOD UREA NITROGEN 18 mg/dL (7-20); CALCIUM 9.5 mg/dL (8.4-10.2); CARBON DIOXIDE 24 mmol/L (22-30); CHLORIDE 109 mmol/L (98-107); CREATINE KINASE 99 U/L (30-135); GLUCOSE 156 mg/dL (75-110); POTASSIUM 4.8 mmol/L (3.6-5.0); SODIUM 142.7 mmol/L (137-145); TOTAL PROTEIN 7.1 g/dL (6.3-8.2)
[2017-06-19 03:07] LABS: CREATINE KINASE MB 0.57 ng/mL (<4.55); TROPONIN I 0.015 ng/mL
--- NOTE | 2017-06-19 03:28 | RADIOLOGY REPORT (SQ) ---
EXAM DESCRIPTION: CHEST SINGLE VIEW CLINICAL HISTORY: 61 years, Female, cough, shortness of breath COMPARISON: 05/01/2017. NUMBER OF VIEWS: 1 LIMITATIONS: None. FINDINGS: Moderate lung volume, pulmonary vascular congestion, moderate cardiac enlargement, median sternotomy, and no significant interval change. IMPRESSION: Stable cardiac enlargement and pulmonary vascular congestion.
[2017-06-19] MEDS ORDERED: FUROSEMIDE INJ/PF 40 MG/4 ML SDV IV ONE (04:18)
[2017-06-19 04:52] LABS: APPEARANCE,URINE SLIGHTLY-CLOUDY; BILIRUBIN,URINE NEGATIVE (NEGATIVE); COLOR,URINE YELLOW; GLUCOSE, URINE NEGATIVE (NEGATIVE); KETONES,URINE NEGATIVE (NEGATIVE); LEUKOCYTE ESTERASE,URINE SMALL (NEGATIVE); NITRITE,URINE NEGATIVE (NEGATIVE); PROTEIN,URINE 100 mg/dL (NEGATIVE); URINE SPECIFIC GRAVITY 1.014; UROBILINOGEN,URINE NEGATIVE mg/dL (<2.0)
[2017-06-19] MEDS ORDERED: CEFTRIAXONE 1 GM/D5W RTU 1 GM/50 ML RTUPB IV ONE (05:11)
[2017-06-19] MEDS ORDERED: DEXTROSE 50%-WATER 25 GM/50 ML DISP.SYRIN IV PRN ×2 (08:30)
[2017-06-19] MEDS ORDERED: INSULIN LISPRO 100 UNIT/ML 3 ML VIAL SUBCUT PRN (08:30)
[2017-06-19] MEDS ORDERED: GLUCAGON,HUMAN RECOMB 1 MG INJ IM PRN (08:30)
[2017-06-19] MEDS ORDERED: DEXTROSE 40% GEL 15 GM TUBE PO PRN ×2 (08:30)
[2017-06-19] MEDS ORDERED: LANSOPRAZOLE 30 MG TAB.RAP.DR PO ONE (09:30)
[2017-06-19] MEDS: FUROSEMIDE INJ/PF 40 MG/4 ML SDV IV SCH ×2 (11:05→21:08)
[2017-06-19] MEDS: CEFTRIAXONE SODIUM 1,000 MG in DEXTROSE 5%-WATER 100 ML IV SCH (11:07)
[2017-06-19] MEDS: ENOXAPARIN SODIUM INJ 40 MG/0.4 ML DISP.SYRIN SUBCUT SCH (11:07)
[2017-06-19 13:17] LABS: INTERNATIONAL RATION (INR) 1.19; PROTHROMBIN TIME 15.9 SEC (11.4-15.4)
[2017-06-19 13:18] LABS: PARTIAL THROMBOPLASTIN TIME 36.5 SEC (23.5-35.8)
--- NOTE | 2017-06-19 19:14 | PDOC H&P ---
History of Present Illness Admission Date/PCP: 06/19/17 05:52 [facility] Patient complains of: Weakness, Shortness of breath History of Present Illness: JAVIER BURGER is a 61 year old female known to my practice who was recently discharged from this facility after admission for left foot infected diabetic ulcer. She reported continue weakness and incidental fall at home with difficulty getting up from the floor. She reported been on the floor for more than 3 hours before she was eventually found and brought to the ED by EMS personnel. She claimed that she accidentally slide off her couch. She denied loss of consciousness or sustaining any injury. Patient was discharge home with home health agency services including physical therapy but she claimed that no one showed up. She reported worsening shortness of breath and chest congestion. She denied any associated fever but did experience chills. No nausea, vomiting, or abdominal pain. She claimed generalized weakness, episode of bleeding from her left foot diabetic ulcer and have no had wound vac application since she was discharged. She expressed willingness to go to SNF for short term rehabilitation. This option was recommended to her during her last hospitalization but she reclined and choice to go home with home health agency services. Her morbidities include Diabetes Mellitus Type 2, chronic systolic CHF , Hypertension, Coronary Artery Disease s/p CABG, Old Heart Attack, Hypercholesterolemia, Peripheral Vascular Disease, and history of stroke without significant motor deficit. Past Medical History Cardiac Medical History: Reports: Congestive Heart Failure, Coronary Artery Disease, Myocardial Infarction, Hyperlipidema, Hypertension, Peripheral Vascular Disease Denies: Atrial Fibrillation, Pulmonary Embolism, Heart Murmur Pulmonary Medical History: Reports: Bronchitis Denies: Asthma, Chronic Obstructive Pulmonary Disease (COPD), Pneumonia, Respiratory Failure, Sleep Apnea, Tuberculosis Neurological Medical History: Denies: Seizures Endocrine Medical History: Reports: Diabetes Mellitus Type 2 Denies: Hyperthyroidism, Hypothyroidism Renal/ Medical History: Denies: End Stage Renal Disease Malignancy Medical History: Denies: Breast Cancer, Cervical Cancer, Leukemia, Lung Cancer, Ovarian Cancer GI Medical History: Reports: Diverticulitis - diverticulosis Denies: Crohn's Disease, Gastroesophageal Reflux Disease, Hiatal Hernia Musculoskeltal Medical History: Denies: Arthritis, Fibromyalgia Psychiatric Medical History: Denies: Bipolar Disorder, Dementia, Depression, Post Traumatic Stress Disorder Hematology: Denies: Anemia, Hemophilia, Sickle Cell Disease Infectious Medical History: Denies: HIV Past Surgical History Past Surgical History: Reports: Coronary Artery Bypass Graft - July 31 2011, Tonsillectomy, Vascular Surgery Denies: Amputation, Appendectomy, Cardiac Catheterization, Section, Cholecystectomy, Colostomy, Gastric Bypass Surgery, Herniorrhaphy, Hysterectomy , Mastectomy, Pacemaker, Tubal Ligation Social History Lives with: Family Smoking Status: Never Smoker Frequency of Alcohol Use: None Hx Recreational Drug Use: No Drugs: None Hx Prescription Drug Abuse: No Family History Family History: Reviewed & Not Pertinent, CAD, Hyperlipidemia, Hypertension Parental Family History Reviewed: Yes Children Family History Reviewed: Yes Sibling(s) Family History Reviewed.: Yes Medication/Allergy Home Medications: Amlodipine Besylate [Norvasc 10 mg Tablet] 10 mg PO DAILY 06/19/17 Atorvastatin Calcium [Lipitor 40 mg Tablet] 40 mg PO QHS 06/19/17 Clopidogrel Bisulfate [Plavix 75 mg Tablet] 75 mg PO DAILY 06/19/17 Furosemide [Lasix 40 mg Tablet] 40 mg PO DAILY 06/19/17 Gabapentin [Neurontin 300 mg Capsule] 300 mg PO Q6 06/19/17 Insulin Glargine,Hum.rec.anlog [Lantus Solostar] 45 units SQ Q12 06/19/17 Insulin Lispro [Humalog Kwikpen U-100] 0 unit SQ .SLIDING SCALE 06/19/17 Lisinopril [Prinivil 30 mg Tablet] 30 mg PO Q12 06/19/17 Oxycodone HCl 15 mg PO Q6HP PRN 06/19/17 Allergies/Adverse Reactions: pregabalin [From Lyrica] Allergy (Verified 05/18/17 17:24) Review of Systems Constitutional: PRESENT: weakness Eyes: PRESENT: visual disturbances Ears: ABSENT: hearing changes Nose, Mouth, and Throat: ABSENT: as per HPI, headache(s), mouth pain, sore throat, vertigo, other Cardiovascular: PRESENT: dyspnea on exertion, edema - chronic. ABSENT: as per HPI, chest pain, orthropnea, palpitations, other Respiratory: PRESENT: dyspnea. ABSENT: as per HPI, cough, hemoptysis, sputum, other Gastrointestinal: ABSENT: abdominal pain, constipation, diarrhea, hematemesis, hematochezia, nausea, vomiting Genitourinary: ABSENT: dysuria, hematuria Musculoskeletal: PRESENT: muscle weakness - generalized Integumentary: PRESENT: wounds - left foot diabetic ulcer Neurological: PRESENT: weakness - generalized. ABSENT: as per HPI, abnormal gait, abnormal movements, abnormal speech, confusion, convulsions, dizziness, focal weakness, frequent falls, lack of coordination, memory loss, numbness, paresthesias, restless legs, syncope, tingling, tremor(s), vertigo, other Psychiatric: ABSENT: anxiety, depression, homidical ideation, suicidal ideation Endocrine: PRESENT: cold intolerance. ABSENT: polydipsia, polyphagia, polyuria Hematologic/Lymphatic: ABSENT: easy bleeding, easy bruising, lymphadenopathy Allergic/Immunologic: ABSENT: seasonal rhinorrhea Physical Exam Vital Signs: Temp Pulse Resp BP Pulse Ox 11 L 125/54 L 97 06/19/17 11:00 06/19/17 09:34 06/19/17 11:00 Intake & Output 06/18/17 06/19/17 06/20/17 06:59 06:59 06:59 Output Total 1700 Balance -1700 Weight 126 kg General appearance: PRESENT: mild distress - on supplemental oxygen via nasal cannula, morbidly obese Head exam: PRESENT: atraumatic, normocephalic Eye exam: PRESENT: conjunctiva pink, EOMI, PERRLA. ABSENT: scleral icterus Mouth exam: PRESENT: moist Neck exam: PRESENT: full ROM. ABSENT: carotid bruit, JVD, lymphadenopathy, thyromegaly Respiratory exam: PRESENT: clear to auscultation jerrica, decreased breath sounds Cardiovascular exam: PRESENT: RRR. ABSENT: diastolic murmur, rubs, systolic murmur Pulses: PRESENT: +1 pedal pulses bilateral Vascular exam: PRESENT: normal capillary refill. ABSENT: pallor GI/Abdominal exam: PRESENT: normal bowel sounds, soft. ABSENT: distended, guarding, mass, organolmegaly, rebound, tenderness Rectal exam: PRESENT: deferred Gentrourinary exam: PRESENT: indwelling catheter Extremities exam: PRESENT: pedal edema - chronic lower extremities Musculoskeletal exam: PRESENT: deformity - left hindfoot with diabetic ulcer Neurological exam: PRESENT: alert, awake, oriented to person, oriented to place , oriented to time, oriented to situation, CN II-XII grossly intact. ABSENT: motor sensory deficit Psychiatric exam: PRESENT: appropriate affect, normal mood. ABSENT: homicidal ideation, suicidal ideation Skin exam: PRESENT: dry, warm, other - diabetic ulcer involving left foot Results Laboratory Results: I reviewed her lab results on [employer] and form a significant input in my medical decision making. Impressions: Chest X-Ray 06/19/17 01:58 IMPRESSION: Stable cardiac enlargement and pulmonary vascular congestion. Assessment & Plan - Diagnosis (1) Fall in home Qualifiers: Encounter type: initial encounter Qualified Code(s): W19.XXXA - Unspecified fall, initial encounter; Y92.009 - Unspecified place in unspecified non-institutional (private) residence as the place of occurrence of the external cause; Y92.009 - Unspecified place in unspecified non-institutional ( private) residence as the place of occurrence of the external cause Is this a current diagnosis for this admission?: Yes Plan: See admitting attending physician orders. (2) Acute on chronic systolic CHF (congestive heart failure) Is this a current diagnosis for this admission?: Yes Plan: See admitting attending physician orders. (3) UTI (urinary tract infection) Qualifiers: Urinary tract infection type: site unspecified Hematuria presence: without hematuria Qualified Code(s): N39.0 - Urinary tract infection, site not specified Plan: See admitting attending physician orders. (4) Diabetes mellitus type 2 in obese Is this a current diagnosis for this admission?: Yes Plan: See admitting attending physician orders. (5) 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 2 diabetes mellitus Qualifiers: Diabetic foot ulcer location: heel Is this a current diagnosis for this admission?: Yes Plan: See admitting attending physician orders. (6) HTN (hypertension) Qualifiers: Hypertension type: essential hypertension Qualified Code(s): I10 - Essential (primary) hypertension Is this a current diagnosis for this admission?: Yes Plan: See admitting attending physician orders. (7) CAD (coronary artery disease) Qualifiers: Coronary Disease-Associated Artery/Lesion type: unspecified vessel or lesion type [place] vs. transplanted heart: [place] heart Associated angina: without angina Qualified Code(s): I25.10 - Atherosclerotic heart disease of [place] coronary artery without angina pectoris Is this a current diagnosis for this admission?: Yes Plan: See admitting attending physician orders. (8) HLD (hyperlipidemia) Qualifiers: Hyperlipidemia type: pure hypercholesterolemia Qualified Code(s): E78.00 - Pure hypercholesterolemia, unspecified Plan: See admitting attending physician orders. (9) PVD (peripheral vascular disease) Is this a current diagnosis for this admission?: Yes Plan: See admitting attending physician orders. (10) S/P CABG (coronary artery bypass graft) Is this a current diagnosis for this admission?: Yes Plan: See admitting attending physician orders. (11) Hx of stroke without residual deficits Is this a current diagnosis for this admission?: Yes Plan: See admitting attending physician orders. (12) Chronic use of opiate for therapeutic purpose Is this a current diagnosis for this admission?: Yes Plan: See admitting attending physician orders. - Time Time Spent: 50 to 70 Minutes Medications reviewed and adjusted accordingly: Yes Anticipated discharge: SNF Within: Other - Inpatient Certification Based on my medical assessment, after consideration of the patient's comorbidities, presenting symptoms, or acuity I expect that the services needed warrant INPATIENT care.: Yes I certify that my determination is in accordance with my understanding of Medicare's requirements for reasonable and necessary INPATIENT services [42 CFR 412.3e].: Yes Medical Necessity: Need Close Monitoring Due to Risk of Patient Decompensation, Need For Continuous Telemetry Monitoring, Need for IV Antibiotics, Risk of Complication if Not Cared For in Hospital Post Hospital Care: D/C or Transfer Summary - Plan Summary Plan Summary: See admitting attending physician orders.
[2017-06-19] MEDS: ATORVASTATIN CALCIUM 40 MG TABLET PO SCH (21:08)
[2017-06-19] MEDS ORDERED: (PENDING PHARMACY ID) (Lisinopril [Prinivil 30 Mg Tablet] 30 MG) PO SCH (22:00)
[2017-06-19] MEDS: INSULIN GLARGINE,HUM.REC.ANLOG 300 UNIT/3 ML INSULN.PEN SUBCUT SCH (22:26)
[2017-06-19] MEDS ORDERED: OXYCODONE HCL IR 5 MG TABLET PO PRN (23:19)
[2017-06-20] MEDS: GABAPENTIN 300 MG CAPSULE PO SCH ×5 (00:09→23:35)
[2017-06-20 04:41] LABS: ABSOLUTE EOSINOPHILS # (AUTO) 0.3 10^3/uL (0.0-0.6); ABSOLUTE MONOCYTES (AUTO) 1.1 10^3/uL (0.1-1.4); BASOPHILS % (AUTO) 0.7 % (0-2); EOSINOPHILS % (AUTO) 3.4 % (0-6); HEMATOCRIT 23.2 % (36.0-47.0); LYMPHOCYTES % (AUTO) 27.4 % (13-45); MEAN CORPUSCULAR HEMOGLOBIN 28.2 pg (27.0-33.4); MEAN CORPUSCULAR HGB CONC 32.6 g/dL (32.0-36.0); MEAN CORPUSCULAR VOLUME 86 fl (80-97); MONOCYTES % (AUTO) 14.7 % (3-13); PLATELET COUNT 244 10^3/uL (150-450); RED BLOOD COUNT 2.69 10^6/uL (3.72-5.28); RED CELL DISTRIBUTION WIDTH 16.9 % (11.5-14.0); SEGMENTED NEUTROPHILS % (AUTO) 53.8 % (42-78); TOTAL CELLS COUNTED % (AUTO) 100 %; WHITE BLOOD COUNT 7.4 10^3/uL (4.0-10.5)
[2017-06-20 04:43] LABS: HEMOGLOBIN 7.6 g/dL (12.0-15.5)
[2017-06-20 04:59] LABS: ALANINE AMINOTRANSFERASE 20 U/L (9-52); ALBUMIN 2.6 g/dL (3.5-5.0); ALKALINE PHOSPHATASE 189 U/L (38-126); ANION GAP 7 (5-19); ASPARTATE AMINO TRANSFERASE 17 U/L (14-36); BILIRUBIN,DIRECT 0.3 mg/dL (0.0-0.4); BILIRUBIN,TOTAL 0.6 mg/dL (0.2-1.3); BLOOD UREA NITROGEN 15 mg/dL (7-20); CALCIUM 9.2 mg/dL (8.4-10.2); CARBON DIOXIDE 25 mmol/L (22-30); CHLORIDE 109 mmol/L (98-107); GLUCOSE 92 mg/dL (75-110); SODIUM 141.1 mmol/L (137-145); TOTAL PROTEIN 6.2 g/dL (6.3-8.2)
[2017-06-20] MEDS: LANSOPRAZOLE 30 MG TAB.RAP.DR PO SCH (05:31)
--- NOTE | 2017-06-20 08:11 | PDOC PROGRESS REPORT ---
Subjective Progress Note for:: 06/20/17 Subjective:: Patient reported some improvement in her breathing. No chest pain. No nausea or vomiting. Reported pain in left foot from diabetic foot ulcer. No fever or chills. Reason For Visit: ACUTE ON CHRONIC SYSTOLIC CHF,UTI Physical Exam Vital Signs: Temp Pulse Resp BP Pulse Ox 99.1 F 68 16 139/64 H 93 06/20/17 03:24 06/20/17 07:00 06/20/17 03:24 06/20/17 03:24 06/20/17 03:24 Intake & Output 06/19/17 06/20/17 06/21/17 06:59 06:59 06:59 Intake Total 313 Output Total 4000 Balance -3687 Weight 120.1 kg General appearance: PRESENT: no acute distress, well-developed, well-nourished Head exam: PRESENT: atraumatic, normocephalic Eye exam: PRESENT: conjunctiva pink, EOMI, PERRLA. ABSENT: scleral icterus Mouth exam: PRESENT: moist Teeth exam: PRESENT: poor dentation Respiratory exam: PRESENT: clear to auscultation jerrica, decreased breath sounds Cardiovascular exam: PRESENT: RRR. ABSENT: diastolic murmur, rubs, systolic murmur GI/Abdominal exam: PRESENT: normal bowel sounds, soft. ABSENT: distended, guarding, mass, organolmegaly, rebound, tenderness Musculoskeletal exam: PRESENT: deformity - left foot from heel region diabetic ulcer Neurological exam: PRESENT: alert, awake, oriented to person, oriented to place , oriented to time, oriented to situation, CN II-XII grossly intact. ABSENT: motor sensory deficit Psychiatric exam: PRESENT: appropriate affect, normal mood. ABSENT: homicidal ideation, suicidal ideation Skin exam: PRESENT: dry, warm, other - diabetic foot ulcer left foot Results Laboratory Results: 06/20/17 04:30 06/20/17 04:30 06/20/17 06/20/17 04:30 04:30 WBC 7.4 RBC 2.69 L Hgb 7.6 L Hct 23.2 L MCV 86 MCH 28.2 MCHC 32.6 RDW 16.9 H Plt Count 244 Seg Neutrophils % 53.8 Lymphocytes % 27.4 Monocytes % 14.7 H Eosinophils % 3.4 Basophils % 0.7 Absolute Neutrophils 4.0 Absolute Lymphocytes 2.0 Absolute Monocytes 1.1 Absolute Eosinophils 0.3 Absolute Basophils 0.0 Sodium 141.1 Potassium 4.0 Chloride 109 H Carbon Dioxide 25 Anion Gap 7 BUN 15 Creatinine 0.99 Est GFR ( Amer) > 60 Est GFR (Non-Af Amer) 57 L Glucose 92 Calcium 9.2 Magnesium 1.6 Total Bilirubin 0.6 AST 17 ALT 20 Alkaline Phosphatase 189 H Total Protein 6.2 L Albumin 2.6 L Impressions: Chest X-Ray 06/19/17 01:58 IMPRESSION: Stable cardiac enlargement and pulmonary vascular congestion. Assessment & Plan - Diagnosis (1) Fall in home Qualifiers: Encounter type: initial encounter Qualified Code(s): W19.XXXA - Unspecified fall, initial encounter; Y92.009 - Unspecified place in unspecified non-institutional (private) residence as the place of occurrence of the external cause; Y92.009 - Unspecified place in unspecified non-institutional ( private) residence as the place of occurrence of the external cause Is this a current diagnosis for this admission?: Yes (2) Acute on chronic systolic CHF (congestive heart failure) Is this a current diagnosis for this admission?: Yes (3) UTI (urinary tract infection) Qualifiers: Urinary tract infection type: site unspecified Hematuria presence: without hematuria Qualified Code(s): N39.0 - Urinary tract infection, site not specified (4) Diabetes mellitus type 2 in obese Is this a current diagnosis for this admission?: Yes (5) 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 2 diabetes mellitus Qualifiers: Diabetic foot ulcer location: heel Is this a current diagnosis for this admission?: Yes (6) HTN (hypertension) Qualifiers: Hypertension type: essential hypertension Qualified Code(s): I10 - Essential (primary) hypertension Is this a current diagnosis for this admission?: Yes (7) CAD (coronary artery disease) Qualifiers: Coronary Disease-Associated Artery/Lesion type: unspecified vessel or lesion type [place] vs. transplanted heart: [place] heart Associated angina: without angina Qualified Code(s): I25.10 - Atherosclerotic heart disease of [place] coronary artery without angina pectoris Is this a current diagnosis for this admission?: Yes (8) HLD (hyperlipidemia) Qualifiers: Hyperlipidemia type: pure hypercholesterolemia Qualified Code(s): E78.00 - Pure hypercholesterolemia, unspecified (9) PVD (peripheral vascular disease) Is this a current diagnosis for this admission?: Yes (10) S/P CABG (coronary artery bypass graft) Is this a current diagnosis for this admission?: Yes (11) Hx of stroke without residual deficits Is this a current diagnosis for this admission?: Yes (12) Chronic use of opiate for therapeutic purpose Is this a current diagnosis for this admission?: Yes (13) Anemia of chronic disease Is this a current diagnosis for this admission?: Yes Plan: Transfuse 2 units PRBC and monitor post transfusion CBC. - Time Time Spent with patient: 25-34 minutes Medications reviewed and adjusted accordingly: Yes Anticipated discharge: SNF Within: Other - Inpatient Certification Based on my medical assessment, after consideration of the patient's comorbidities, presenting symptoms, or acuity I expect that the services needed warrant INPATIENT care.: Yes I certify that my determination is in accordance with my understanding of Medicare's requirements for reasonable and necessary INPATIENT services [42 CFR 412.3e].: Yes Medical Necessity: Need Close Monitoring Due to Risk of Patient Decompensation, Need For Continuous Telemetry Monitoring, Need for IV Antibiotics, Risk of Complication if Not Cared For in Hospital Post Hospital Care: D/C or Transfer Summary - Plan Summary Plan Summary: Continue IV Rocephin coverage pending culture findings. Transfuse 2 units PRBC. IV Lasix 40 mg daily. Maintain on all other current medication management. Request PT evaluation. Re instate wound vac to left foot diabetic ulcer with Santyl dressing topically to necrotic wound region.
[2017-06-20] MEDS ORDERED: CEFTRIAXONE 1 GM/D5W RTU 1 GM/50 ML RTUPB IV SCH (09:00)
[2017-06-20] MEDS: CLOPIDOGREL BISULFATE 75 MG TABLET PO SCH (09:06)
[2017-06-20] MEDS: CEFTRIAXONE SODIUM 1,000 MG in DEXTROSE 5%-WATER 100 ML IV SCH (09:06)
[2017-06-20] MEDS: FUROSEMIDE INJ/PF 40 MG/4 ML SDV IV SCH (09:06)
[2017-06-20] MEDS: ENOXAPARIN SODIUM INJ 40 MG/0.4 ML DISP.SYRIN SUBCUT SCH (09:06)
[2017-06-20] MEDS: INSULIN GLARGINE,HUM.REC.ANLOG 300 UNIT/3 ML INSULN.PEN SUBCUT SCH ×2 (09:47→21:37)
[2017-06-20] MEDS ORDERED: AMLODIPINE BESYLATE 10 MG TABLET PO SCH (10:00)
[2017-06-20] MEDS: OXYCODONE HCL IR 5 MG TABLET PO PRN ×2 (10:18→19:44)
[2017-06-20] MEDS: COLLAGENASE CLOSTRIDIUM HIST. OINT 30 GM TOP PRN (14:00)
[2017-06-20] MEDS: ATORVASTATIN CALCIUM 40 MG TABLET PO SCH (21:34)
[2017-06-20] MEDS: SACUBITRIL/VALSARTAN 49 MG/51 MG TABLET PO SCH (21:35)
[2017-06-20 22:47] LABS: HEMATOCRIT 31.6 % (36.0-47.0); MEAN CORPUSCULAR HEMOGLOBIN 28.4 pg (27.0-33.4); MEAN CORPUSCULAR HGB CONC 32.8 g/dL (32.0-36.0); MEAN CORPUSCULAR VOLUME 87 fl (80-97); RED BLOOD COUNT 3.65 10^6/uL (3.72-5.28); RED CELL DISTRIBUTION WIDTH 16.5 % (11.5-14.0); WHITE BLOOD COUNT 10.1 10^3/uL (4.0-10.5)
[2017-06-20 22:54] LABS: HEMOGLOBIN 10.4 g/dL (12.0-15.5)
[2017-06-20 23:08] LABS: PLATELET COUNT 283 10^3/uL (150-450)
[2017-06-21] MEDS: LANSOPRAZOLE 30 MG TAB.RAP.DR PO SCH (05:24)
[2017-06-21] MEDS: GABAPENTIN 300 MG CAPSULE PO SCH ×3 (05:25→17:57)
--- NOTE | 2017-06-21 08:19 | RADIOLOGY REPORT (SQ) ---
EXAM DESCRIPTION: U/S ABDOMEN COMPLETE W/DOPPLER COMPLETED DATE/TIME: 06/20/2017 9:48 pm REASON FOR STUDY: Abdominal pain COMPARISON: None. TECHNIQUE: Dynamic and static grayscale images acquired of the abdomen and recorded on PACS. Additio nal selected color Doppler and spectral images recorded. LIMITATIONS: Poor sonic specimen. FINDINGS: PANCREAS: No masses. Visualized pancreatic duct normal caliber. LIVER: No masses. Echotexture normal. LIVER VASCULATURE: Normal directional flow of the main portal vein and hepatic veins. GALLBLADDER: Gallstone(s). No pericholecystic fluid. No wall thickening. ULTRASOUND-DETECTED HOOD'S SIGN: Negative. INTRAHEPATIC DUCTS AND COMMON DUCT: CBD and intrahepatic ducts normal caliber. No filling defects. INFERIOR VENA CAVA: Normal flow. AORTA: No aneurysm. RIGHT KIDNEY: Normal size. Normal echogenicity. No solid or suspicious masses. No hydronephros is. No calcifications. LEFT KIDNEY: Normal size. Normal echogenicity. No solid or suspicious masses. No hydronephrosi s. No calcifications. SPLEEN: Normal size. No solid masses. PERITONEAL AND PLEURAL SPACES: Possible small perihepatic fluid collection. OTHER: No other significant finding. IMPRESSION: Gallstones. Possible minimal free fluid. TECHNICAL DOCUMENTATION: JOB ID: [id number] [employer]- All Rights Reserved
--- NOTE | 2017-06-21 10:20 | Physician Advisory Note ---
Physician Advisor ProgressNote .: [facility] I have reviewed the medical record for this patient. Physician Advisor Statement: Please consider documenting, if you agree: 1. ? "Chronic hypoxemic respiratory failure, needing 2L O2 at baseline, due to " 2. "Ac on Chr systolic CHF, evidenced by SOB, BROWN, cardiomegaly, & " (H&P states edema is chronic) 3. "stage 2 sacral decub, present on admission" 4. "fall, suspect due to " Thanks! CK
[2017-06-21] MEDS: CEFTRIAXONE SODIUM 1,000 MG in DEXTROSE 5%-WATER 100 ML IV SCH (10:26)
[2017-06-21] MEDS: CLOPIDOGREL BISULFATE 75 MG TABLET PO SCH (10:26)
[2017-06-21] MEDS: FUROSEMIDE INJ/PF 40 MG/4 ML SDV IV SCH (10:27)
[2017-06-21] MEDS: ENOXAPARIN SODIUM INJ 40 MG/0.4 ML DISP.SYRIN SUBCUT SCH (10:27)
[2017-06-21] MEDS: SACUBITRIL/VALSARTAN 49 MG/51 MG TABLET PO SCH ×2 (10:27→21:39)
[2017-06-21] MEDS: INSULIN GLARGINE,HUM.REC.ANLOG 300 UNIT/3 ML INSULN.PEN SUBCUT SCH ×2 (10:35→21:38)
[2017-06-21] MEDS: OXYCODONE HCL IR 5 MG TABLET PO PRN ×2 (11:59→18:34)
--- NOTE | 2017-06-21 18:07 | PDOC PROGRESS REPORT ---
Subjective Progress Note for:: 06/21/17 Subjective:: Patient denied chest pain. Breathing improving. Improve abdominal pain. No nausea or vomiting. No fever or chills. Reason For Visit: ACUTE ON CHRONIC SYSTOLIC CHF,UTI Physical Exam Vital Signs: Temp Pulse Resp BP Pulse Ox 98.9 F 73 18 158/68 H 93 06/21/17 08:54 06/21/17 08:54 06/21/17 08:54 06/21/17 08:54 06/21/17 08:54 Intake & Output 06/20/17 06/21/17 06/22/17 06:59 06:59 06:59 Intake Total 313 1851 Output Total 4000 2300 Balance -3687 -449 Weight 120.1 kg Physical Exam: General appearance: PRESENT: no acute distress, well-developed, well-nourished Head exam: PRESENT: atraumatic, normocephalic Eye exam: PRESENT: conjunctiva pink, EOMI, PERRLA. ABSENT: scleral icterus Mouth exam: PRESENT: moist Teeth exam: PRESENT: poor dentition Respiratory exam: PRESENT: clear to auscultation jerrica, decreased breath sounds Cardiovascular exam: PRESENT: RRR. ABSENT: diastolic murmur, rubs, systolic murmur GI/Abdominal exam: PRESENT: equivocal RUQ tenderness, normal bowel sounds, soft. ABSENT: distended, guarding, mass, organomegaly, rebound, Musculoskeletal exam: PRESENT: deformity - left foot from heel region diabetic ulcer Neurological exam: PRESENT: alert, awake, oriented to person, oriented to place , oriented to time, oriented to situation, CN II-XII grossly intact. ABSENT: motor sensory deficit Psychiatric exam: PRESENT: appropriate affect, normal mood. ABSENT: homicidal ideation, suicidal ideation Skin exam: PRESENT: dry, warm, other - diabetic foot ulcer left foot, wound vac in situ. Stage 2 sacral decubitus. Results Laboratory Results: 06/20/17 22:00 06/20/17 04:30 06/20/17 06/20/17 06:21 22:00 WBC 10.1 RBC 3.65 L Hgb 10.4 L D Hct 31.6 L MCV 87 MCH 28.4 MCHC 32.8 RDW 16.5 H Plt Count 283 Blood Type A2subB POSITIVE Antibody Screen NEGATIVE Urine culture Yeast NOT TERRIE > 100,000 col / ml Impressions: Chest X-Ray 06/19/17 01:58 IMPRESSION: Stable cardiac enlargement and pulmonary vascular congestion. Abdomen Ultrasound 06/20/17 00:00 IMPRESSION: Gallstones. Possible minimal free fluid. Assessment & Plan - Diagnosis (1) Fall in home Qualifiers: Encounter type: initial encounter Qualified Code(s): W19.XXXA - Unspecified fall, initial encounter; Y92.009 - Unspecified place in unspecified non-institutional (private) residence as the place of occurrence of the external cause; Y92.009 - Unspecified place in unspecified non-institutional ( private) residence as the place of occurrence of the external cause Is this a current diagnosis for this admission?: Yes Plan: Slide off couch as described mechanism of fall at home. (2) Acute on chronic systolic CHF (congestive heart failure) Is this a current diagnosis for this admission?: Yes (3) UTI (urinary tract infection) Qualifiers: Urinary tract infection type: site unspecified Hematuria presence: without hematuria Qualified Code(s): N39.0 - Urinary tract infection, site not specified (4) Diabetes mellitus type 2 in obese Is this a current diagnosis for this admission?: Yes (5) 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 2 diabetes mellitus Qualifiers: Diabetic foot ulcer location: heel Is this a current diagnosis for this admission?: Yes (6) HTN (hypertension) Qualifiers: Hypertension type: essential hypertension Qualified Code(s): I10 - Essential (primary) hypertension Is this a current diagnosis for this admission?: Yes (7) CAD (coronary artery disease) Qualifiers: Coronary Disease-Associated Artery/Lesion type: unspecified vessel or lesion type [place] vs. transplanted heart: [place] heart Associated angina: without angina Qualified Code(s): I25.10 - Atherosclerotic heart disease of [place] coronary artery without angina pectoris Is this a current diagnosis for this admission?: Yes (8) HLD (hyperlipidemia) Qualifiers: Hyperlipidemia type: pure hypercholesterolemia Qualified Code(s): E78.00 - Pure hypercholesterolemia, unspecified (9) PVD (peripheral vascular disease) Is this a current diagnosis for this admission?: Yes (10) S/P CABG (coronary artery bypass graft) Is this a current diagnosis for this admission?: Yes (11) Hx of stroke without residual deficits Is this a current diagnosis for this admission?: Yes (12) Chronic use of opiate for therapeutic purpose Is this a current diagnosis for this admission?: Yes (13) Anemia of chronic disease Is this a current diagnosis for this admission?: Yes (14) Cholelithiasis without obstruction Qualifiers: Cholelithiasis location: gallbladder Cholecystitis acuity: unspecified acuity Is this a current diagnosis for this admission?: Yes Plan: Continue current management with watchful monitoring. (15) Pressure ulcer of sacral region, stage 2 Is this a current diagnosis for this admission?: Yes Plan: Present since admission as documented in nursing skin assessment report. - Time Time Spent with patient: 25-34 minutes Medications reviewed and adjusted accordingly: Yes Anticipated discharge: SNF Within: Other - Inpatient Certification Based on my medical assessment, after consideration of the patient's comorbidities, presenting symptoms, or acuity I expect that the services needed warrant INPATIENT care.: Yes I certify that my determination is in accordance with my understanding of Medicare's requirements for reasonable and necessary INPATIENT services [42 CFR 412.3e].: Yes Medical Necessity: Need Close Monitoring Due to Risk of Patient Decompensation, Need For Continuous Telemetry Monitoring, Need for Nebulizer Therapy and Monitoring of Response, Need for IV Antibiotics, Risk of Complication if Not Cared For in Hospital Post Hospital Care: D/C or Transfer Summary - Plan Summary Plan Summary: Decrease Lantus insulin to 20 units SC q12 hours. Continue all other current medical management. Obtain CBC with diff, BMP, BNP in AM
[2017-06-21] MEDS ORDERED: FLUCONAZOLE 100 MG TABLET PO ONE (18:30)
[2017-06-21] MEDS: ATORVASTATIN CALCIUM 40 MG TABLET PO SCH (21:39)
[2017-06-22] MEDS: GABAPENTIN 300 MG CAPSULE PO SCH ×5 (00:13→23:39)
[2017-06-22] MEDS: OXYCODONE HCL IR 5 MG TABLET PO PRN ×5 (00:13→21:42)
[2017-06-22] MEDS: LANSOPRAZOLE 30 MG TAB.RAP.DR PO SCH (06:18)
[2017-06-22] MEDS: CLOPIDOGREL BISULFATE 75 MG TABLET PO SCH (10:41)
[2017-06-22] MEDS: FLUCONAZOLE 100 MG TABLET PO SCH (10:42)
[2017-06-22] MEDS: ENOXAPARIN SODIUM INJ 40 MG/0.4 ML DISP.SYRIN SUBCUT SCH (10:44)
[2017-06-22] MEDS: SACUBITRIL/VALSARTAN 49 MG/51 MG TABLET PO SCH ×2 (10:49→21:43)
[2017-06-22] MEDS: CEFTRIAXONE SODIUM 1,000 MG in DEXTROSE 5%-WATER 100 ML IV SCH (11:01)
[2017-06-22] MEDS: FUROSEMIDE INJ/PF 40 MG/4 ML SDV IV SCH (11:07)
[2017-06-22] MEDS: INSULIN GLARGINE,HUM.REC.ANLOG 300 UNIT/3 ML INSULN.PEN SUBCUT SCH ×2 (11:09→21:49)
[2017-06-22] MEDS: ATORVASTATIN CALCIUM 40 MG TABLET PO SCH (21:42)
[2017-06-23 05:24] LABS: ABSOLUTE EOSINOPHILS # (AUTO) 0.4 10^3/uL (0.0-0.6); ABSOLUTE LYMPHOCYTES (AUTO) 2.7 10^3/uL (0.5-4.7); ABSOLUTE NEUT (AUTO) 5.9 10^3/uL (1.7-8.2); BASOPHILS % (AUTO) 0.5 % (0-2); EOSINOPHILS % (AUTO) 4.3 % (0-6); HEMATOCRIT 32.9 % (36.0-47.0); HEMOGLOBIN 10.7 g/dL (12.0-15.5); LYMPHOCYTES % (AUTO) 26.6 % (13-45); MEAN CORPUSCULAR HEMOGLOBIN 28.3 pg (27.0-33.4); MEAN CORPUSCULAR HGB CONC 32.5 g/dL (32.0-36.0); MEAN CORPUSCULAR VOLUME 87 fl (80-97); MONOCYTES % (AUTO) 10.1 % (3-13); PLATELET COUNT 284 10^3/uL (150-450); RED BLOOD COUNT 3.77 10^6/uL (3.72-5.28); RED CELL DISTRIBUTION WIDTH 16.8 % (11.5-14.0); SEGMENTED NEUTROPHILS % (AUTO) 58.5 % (42-78); TOTAL CELLS COUNTED % (AUTO) 100 %; WHITE BLOOD COUNT 10.1 10^3/uL (4.0-10.5)
[2017-06-23] MEDS: GABAPENTIN 300 MG CAPSULE PO SCH ×3 (05:36→17:28)
[2017-06-23] MEDS: LANSOPRAZOLE 30 MG TAB.RAP.DR PO SCH (05:36)
[2017-06-23] MEDS: OXYCODONE HCL IR 5 MG TABLET PO PRN ×5 (05:36→22:23)
[2017-06-23 05:44] LABS: ANION GAP 7 (5-19); BLOOD UREA NITROGEN 8 mg/dL (7-20); CARBON DIOXIDE 34 mmol/L (22-30); CHLORIDE 104 mmol/L (98-107); GLUCOSE 111 mg/dL (75-110); POTASSIUM 4.5 mmol/L (3.6-5.0)
[2017-06-23] MEDS: INSULIN GLARGINE,HUM.REC.ANLOG 300 UNIT/3 ML INSULN.PEN SUBCUT SCH ×2 (09:48→22:10)
[2017-06-23] MEDS: CLOPIDOGREL BISULFATE 75 MG TABLET PO SCH (09:59)
[2017-06-23] MEDS: FLUCONAZOLE 100 MG TABLET PO SCH (09:59)
[2017-06-23] MEDS: CEFTRIAXONE SODIUM 1,000 MG in DEXTROSE 5%-WATER 100 ML IV SCH (09:59)
[2017-06-23] MEDS: ENOXAPARIN SODIUM INJ 40 MG/0.4 ML DISP.SYRIN SUBCUT SCH (09:59)
[2017-06-23] MEDS: FUROSEMIDE INJ/PF 40 MG/4 ML SDV IV SCH (09:59)
[2017-06-23] MEDS: SACUBITRIL/VALSARTAN 49 MG/51 MG TABLET PO SCH ×2 (10:39→22:23)
[2017-06-23] MEDS: COLLAGENASE CLOSTRIDIUM HIST. OINT 30 GM TOP PRN (10:39)
--- NOTE | 2017-06-23 16:10 | PDOC PROGRESS REPORT ---
Subjective Progress Note for:: 06/22/17 Subjective:: Patient denied chest pain. Improved breathing. No significant abdominal pain, nausea or vomiting. Tolerating oral feeding. No fever or chills. Reason For Visit: ACUTE ON CHRONIC SYSTOLIC CHF,UTI Physical Exam Vital Signs: Temp Pulse Resp BP Pulse Ox 99.1 F 77 16 152/70 H 93 06/22/17 08:07 06/22/17 08:07 06/22/17 08:07 06/22/17 08:07 06/22/17 08:07 Intake & Output 06/21/17 06/22/17 06/23/17 06:59 06:59 06:59 Intake Total 1851 1454 Output Total 2300 4900 Balance -449 -3446 Weight 118.6 kg Physical Exam: General appearance: PRESENT: no acute distress, well-developed, well-nourished Head exam: PRESENT: atraumatic, normocephalic Eye exam: PRESENT: conjunctiva pink, EOMI, PERRLA. ABSENT: scleral icterus Mouth exam: PRESENT: moist Teeth exam: PRESENT: poor dentition Respiratory exam: PRESENT: clear to auscultation jerrica, decreased breath sounds Cardiovascular exam: PRESENT: RRR. ABSENT: diastolic murmur, rubs, systolic murmur GI/Abdominal exam: PRESENT: normal bowel sounds, soft. ABSENT: distended, guarding, mass, organomegaly, rebound, Musculoskeletal exam: PRESENT: deformity - left foot from heel region diabetic ulcer, improved edema. Neurological exam: PRESENT: alert, awake, oriented to person, oriented to place , oriented to time, oriented to situation, CN II-XII grossly intact. ABSENT: motor sensory deficit Psychiatric exam: PRESENT: appropriate affect, normal mood. ABSENT: homicidal ideation, suicidal ideation Skin exam: PRESENT: dry, warm, other - diabetic foot ulcer left foot, wound vac in situ. Stage 2 sacral decubitus. Results Laboratory Results: 06/20/17 22:00 06/20/17 04:30 Impressions: Chest X-Ray 06/19/17 01:58 IMPRESSION: Stable cardiac enlargement and pulmonary vascular congestion. Abdomen Ultrasound 06/20/17 00:00 IMPRESSION: Gallstones. Possible minimal free fluid. Assessment & Plan - Diagnosis (1) Fall in home Qualifiers: Encounter type: initial encounter Qualified Code(s): W19.XXXA - Unspecified fall, initial encounter; Y92.009 - Unspecified place in unspecified non-institutional (private) residence as the place of occurrence of the external cause; Y92.009 - Unspecified place in unspecified non-institutional ( private) residence as the place of occurrence of the external cause Is this a current diagnosis for this admission?: Yes (2) Acute on chronic systolic CHF (congestive heart failure) Is this a current diagnosis for this admission?: Yes (3) UTI (urinary tract infection) Qualifiers: Urinary tract infection type: site unspecified Hematuria presence: without hematuria Qualified Code(s): N39.0 - Urinary tract infection, site not specified (4) Diabetes mellitus type 2 in obese Is this a current diagnosis for this admission?: Yes (5) 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 2 diabetes mellitus Qualifiers: Diabetic foot ulcer location: heel Is this a current diagnosis for this admission?: Yes (6) HTN (hypertension) Qualifiers: Hypertension type: essential hypertension Qualified Code(s): I10 - Essential (primary) hypertension Is this a current diagnosis for this admission?: Yes (7) CAD (coronary artery disease) Qualifiers: Coronary Disease-Associated Artery/Lesion type: unspecified vessel or lesion type [place] vs. transplanted heart: [place] heart Associated angina: without angina Qualified Code(s): I25.10 - Atherosclerotic heart disease of [place] coronary artery without angina pectoris Is this a current diagnosis for this admission?: Yes (8) HLD (hyperlipidemia) Qualifiers: Hyperlipidemia type: pure hypercholesterolemia Qualified Code(s): E78.00 - Pure hypercholesterolemia, unspecified (9) PVD (peripheral vascular disease) Is this a current diagnosis for this admission?: Yes (10) S/P CABG (coronary artery bypass graft) Is this a current diagnosis for this admission?: Yes (11) Hx of stroke without residual deficits Is this a current diagnosis for this admission?: Yes (12) Chronic use of opiate for therapeutic purpose Is this a current diagnosis for this admission?: Yes (13) Anemia of chronic disease Is this a current diagnosis for this admission?: Yes (14) Cholelithiasis without obstruction Qualifiers: Cholelithiasis location: gallbladder Cholecystitis acuity: unspecified acuity Is this a current diagnosis for this admission?: Yes (15) Pressure ulcer of sacral region, stage 2 Is this a current diagnosis for this admission?: Yes - Time Time Spent with patient: 25-34 minutes Medications reviewed and adjusted accordingly: Yes Within: Other - Inpatient Certification Based on my medical assessment, after consideration of the patient's comorbidities, presenting symptoms, or acuity I expect that the services needed warrant INPATIENT care.: Yes I certify that my determination is in accordance with my understanding of Medicare's requirements for reasonable and necessary INPATIENT services [42 CFR 412.3e].: Yes Medical Necessity: Need Close Monitoring Due to Risk of Patient Decompensation, Need For Continuous Telemetry Monitoring, Risk of Complication if Not Cared For in Hospital Post Hospital Care: D/C [employer] 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 Obtain BMP and CBC in AM. Encouraged participation in physical therapy session. Patient declined SNF placement because she has to give up her monthly check while on admission at SNF. Her medicare covered days are limited to 4 days for the year.
--- NOTE | 2017-06-23 16:21 | PDOC PROGRESS REPORT ---
Subjective Progress Note for:: 06/23/17 Subjective:: No chest pain or difficulty with breathing. Patient had episode of elevated blood pressure. No abdominal pain, nausea or vomiting. Reason For Visit: ACUTE ON CHRONIC SYSTOLIC CHF,UTI Physical Exam Vital Signs: Temp Pulse Resp BP Pulse Ox 98.7 F 84 16 158/78 H 92 06/23/17 12:36 06/23/17 14:00 06/23/17 12:36 06/23/17 13:56 06/23/17 12:36 Intake & Output 06/22/17 06/23/17 06/24/17 06:59 06:59 06:59 Intake Total 1454 908 700 Output Total 4900 4100 1700 Balance -2219 -0391 -9736 Weight 118.6 kg 115.1 kg 115.1 kg Physical Exam: General appearance: PRESENT: no acute distress, well-developed, well-nourished Head exam: PRESENT: atraumatic, normocephalic Eye exam: PRESENT: conjunctiva pink, EOMI, PERRLA. ABSENT: scleral icterus Mouth exam: PRESENT: moist Teeth exam: PRESENT: poor dentition Respiratory exam: PRESENT: clear to auscultation jerrica, decreased breath sounds Cardiovascular exam: PRESENT: RRR. ABSENT: diastolic murmur, rubs, systolic murmur GI/Abdominal exam: PRESENT: normal bowel sounds, soft. ABSENT: distended, guarding, mass, organomegaly, rebound, Musculoskeletal exam: PRESENT: deformity - left foot from heel region diabetic ulcer, improved edema. Neurological exam: PRESENT: alert, awake, oriented to person, oriented to place , oriented to time, oriented to situation, CN II-XII grossly intact. ABSENT: motor sensory deficit Psychiatric exam: PRESENT: appropriate affect, normal mood. ABSENT: homicidal ideation, suicidal ideation Skin exam: PRESENT: dry, warm, other - diabetic foot ulcer left foot, wound vac in situ. Stage 2 sacral pressure ulcer. Results Laboratory Results: 06/23/17 04:54 06/23/17 04:54 06/23/17 06/23/17 04:54 04:54 WBC 10.1 RBC 3.77 Hgb 10.7 L Hct 32.9 L MCV 87 MCH 28.3 MCHC 32.5 RDW 16.8 H Plt Count 284 Seg Neutrophils % 58.5 Lymphocytes % 26.6 Monocytes % 10.1 Eosinophils % 4.3 Basophils % 0.5 Absolute Neutrophils 5.9 Absolute Lymphocytes 2.7 Absolute Monocytes 1.0 Absolute Eosinophils 0.4 Absolute Basophils 0.0 Sodium 145.0 Potassium 4.5 Chloride 104 Carbon Dioxide 34 H Anion Gap 7 BUN 8 Creatinine 0.90 Est GFR ( Amer) > 60 Est GFR (Non-Af Amer) > 60 Glucose 111 H Calcium 9.0 Impressions: Chest X-Ray 06/19/17 01:58 IMPRESSION: Stable cardiac enlargement and pulmonary vascular congestion. Abdomen Ultrasound 06/20/17 00:00 IMPRESSION: Gallstones. Possible minimal free fluid. Assessment & Plan - Diagnosis (1) Fall in home Qualifiers: Encounter type: initial encounter Qualified Code(s): W19.XXXA - Unspecified fall, initial encounter; Y92.009 - Unspecified place in unspecified non-institutional (private) residence as the place of occurrence of the external cause; Y92.009 - Unspecified place in unspecified non-institutional ( private) residence as the place of occurrence of the external cause Is this a current diagnosis for this admission?: Yes (2) Acute on chronic systolic CHF (congestive heart failure) Is this a current diagnosis for this admission?: Yes (3) UTI (urinary tract infection) Qualifiers: Urinary tract infection type: site unspecified Hematuria presence: without hematuria Qualified Code(s): N39.0 - Urinary tract infection, site not specified (4) Diabetes mellitus type 2 in obese Is this a current diagnosis for this admission?: Yes (5) 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 2 diabetes mellitus Qualifiers: Diabetic foot ulcer location: heel Is this a current diagnosis for this admission?: Yes (6) HTN (hypertension) Qualifiers: Hypertension type: essential hypertension Qualified Code(s): I10 - Essential (primary) hypertension Is this a current diagnosis for this admission?: Yes (7) CAD (coronary artery disease) Qualifiers: Coronary Disease-Associated Artery/Lesion type: unspecified vessel or lesion type [place] vs. transplanted heart: [place] heart Associated angina: without angina Qualified Code(s): I25.10 - Atherosclerotic heart disease of [place] coronary artery without angina pectoris Is this a current diagnosis for this admission?: Yes (8) HLD (hyperlipidemia) Qualifiers: Hyperlipidemia type: pure hypercholesterolemia Qualified Code(s): E78.00 - Pure hypercholesterolemia, unspecified (9) PVD (peripheral vascular disease) Is this a current diagnosis for this admission?: Yes (10) S/P CABG (coronary artery bypass graft) Is this a current diagnosis for this admission?: Yes (11) Hx of stroke without residual deficits Is this a current diagnosis for this admission?: Yes (12) Chronic use of opiate for therapeutic purpose Is this a current diagnosis for this admission?: Yes (13) Anemia of chronic disease Is this a current diagnosis for this admission?: Yes (14) Cholelithiasis without obstruction Qualifiers: Cholelithiasis location: gallbladder Cholecystitis acuity: unspecified acuity Is this a current diagnosis for this admission?: Yes (15) Pressure ulcer of sacral region, stage 2 Is this a current diagnosis for this admission?: Yes - Time Time Spent with patient: 25-34 minutes Medications reviewed and adjusted accordingly: Yes Anticipated discharge: Home with Homehealth - Inpatient Certification Based on my medical assessment, after consideration of the patient's comorbidities, presenting symptoms, or acuity I expect that the services needed warrant INPATIENT care.: Yes I certify that my determination is in accordance with my understanding of Medicare's requirements for reasonable and necessary INPATIENT services [42 CFR 412.3e].: Yes Medical Necessity: Need Close Monitoring Due to Risk of Patient Decompensation, Need For Continuous Telemetry Monitoring, Need for Pain Control, Need for IV Antibiotics, Risk of Complication if Not Cared For in Hospital Post Hospital Care: D/C Night Nurse Documentation - Plan Summary Plan Summary: D/C IV Lasix due to worsening CO2 retention. She is currently in fluid deficit about 11 liters. Maintain on all other current medication management.
[2017-06-23] MEDS: ATORVASTATIN CALCIUM 40 MG TABLET PO SCH (22:24)
[2017-06-24] MEDS: GABAPENTIN 300 MG CAPSULE PO SCH ×4 (00:15→17:25)
[2017-06-24] MEDS: OXYCODONE HCL IR 5 MG TABLET PO PRN ×3 (02:12→11:05)
[2017-06-24] MEDS: LANSOPRAZOLE 30 MG TAB.RAP.DR PO SCH (06:09)
[2017-06-24] MEDS: CEFTRIAXONE SODIUM 1,000 MG in NORMAL SALINE 100 ML IV SCH (09:07)
[2017-06-24] MEDS: ENOXAPARIN SODIUM INJ 40 MG/0.4 ML DISP.SYRIN SUBCUT SCH (09:08)
[2017-06-24] MEDS: FLUCONAZOLE 100 MG TABLET PO SCH (09:10)
[2017-06-24] MEDS: CLOPIDOGREL BISULFATE 75 MG TABLET PO SCH (09:10)
[2017-06-24] MEDS: SACUBITRIL/VALSARTAN 49 MG/51 MG TABLET PO SCH ×2 (09:10→22:24)
[2017-06-24] MEDS: INSULIN GLARGINE,HUM.REC.ANLOG 300 UNIT/3 ML INSULN.PEN SUBCUT SCH ×2 (09:14→22:24)
--- NOTE | 2017-06-24 12:33 | PDOC PROGRESS REPORT ---
Subjective Progress Note for:: 06/24/17 Subjective:: Patient reported breathing better. No chest pain. Transfer with assistance to bedside recliner chair. No abdominal pain, nausea, or vomiting. No reported fever or chills. Reason For Visit: ACUTE ON CHRONIC SYSTOLIC CHF,UTI Physical Exam Vital Signs: Temp Pulse Resp BP Pulse Ox 98.6 F 78 17 163/72 H 100 06/24/17 07:59 06/24/17 07:59 06/24/17 07:59 06/24/17 07:59 06/24/17 07:59 Intake & Output 06/23/17 06/24/17 06/25/17 06:59 06:59 06:59 Intake Total 908 1347 Output Total 4100 3000 Balance -3192 -1653 Weight 115.1 kg 115.1 kg Physical Exam: General appearance: PRESENT: no acute distress, well-developed, well-nourished Head exam: PRESENT: atraumatic, normocephalic Eye exam: PRESENT: conjunctiva pink, EOMI, PERRLA. ABSENT: scleral icterus Mouth exam: PRESENT: moist Teeth exam: PRESENT: poor dentition Respiratory exam: PRESENT: clear to auscultation jerrica, decreased breath sounds Cardiovascular exam: PRESENT: RRR. ABSENT: diastolic murmur, rubs, systolic murmur GI/Abdominal exam: PRESENT: normal bowel sounds, soft. ABSENT: distended, guarding, mass, organomegaly, rebound, Musculoskeletal exam: PRESENT: deformity - left foot from heel region diabetic ulcer, improved edema. Neurological exam: PRESENT: alert, awake, oriented to person, oriented to place , oriented to time, oriented to situation, CN II-XII grossly intact. ABSENT: motor sensory deficit Psychiatric exam: PRESENT: appropriate affect, normal mood. ABSENT: homicidal ideation, suicidal ideation Skin exam: PRESENT: dry, warm, other - diabetic foot ulcer left foot, wound vac in situ. Stage 2 sacral pressure ulcer. Results Laboratory Results: 06/23/17 04:54 06/23/17 04:54 Impressions: Chest X-Ray 06/19/17 01:58 IMPRESSION: Stable cardiac enlargement and pulmonary vascular congestion. Abdomen Ultrasound 06/20/17 00:00 IMPRESSION: Gallstones. Possible minimal free fluid. Assessment & Plan - Diagnosis (1) Fall in home Qualifiers: Encounter type: initial encounter Qualified Code(s): W19.XXXA - Unspecified fall, initial encounter; Y92.009 - Unspecified place in unspecified non-institutional (private) residence as the place of occurrence of the external cause; Y92.009 - Unspecified place in unspecified non-institutional ( private) residence as the place of occurrence of the external cause Is this a current diagnosis for this admission?: Yes (2) Acute on chronic systolic CHF (congestive heart failure) Is this a current diagnosis for this admission?: Yes (3) UTI (urinary tract infection) Qualifiers: Urinary tract infection type: site unspecified Hematuria presence: without hematuria Qualified Code(s): N39.0 - Urinary tract infection, site not specified (4) Diabetes mellitus type 2 in obese Is this a current diagnosis for this admission?: Yes (5) 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 transplanted heart: [place] heart Associated angina: without angina Qualified Code(s): I25.10 - Atherosclerotic heart disease of [place] coronary artery without angina pectoris Is this a current diagnosis for this admission?: Yes (8) HLD (hyperlipidemia) Qualifiers: Hyperlipidemia type: pure hypercholesterolemia Qualified Code(s): E78.00 - Pure hypercholesterolemia, unspecified (9) PVD (peripheral vascular disease) Is this a current diagnosis for this admission?: Yes (10) S/P CABG (coronary artery bypass graft) Is this a current diagnosis for this admission?: Yes (11) Hx of stroke without residual deficits Is this a current diagnosis for this admission?: Yes (12) Chronic use of opiate for therapeutic purpose Is this a current diagnosis for this admission?: Yes (13) Anemia of chronic disease Is this a current diagnosis for this admission?: Yes (14) Cholelithiasis without obstruction Qualifiers: Cholelithiasis location: gallbladder Cholecystitis acuity: unspecified acuity Is this a current diagnosis for this admission?: Yes (15) Pressure ulcer of sacral region, stage 2 Is this a current diagnosis for this admission?: Yes - Time Time Spent with patient: 25-34 minutes Medications reviewed and adjusted accordingly: Yes Anticipated discharge: Home with Homehealth Within: within 48 hours - Inpatient Certification Based on my medical assessment, after consideration of the patient's comorbidities, presenting symptoms, or acuity I expect that the services needed warrant INPATIENT care.: Yes I certify that my determination is in accordance with my understanding of Medicare's requirements for reasonable and necessary INPATIENT services [42 CFR 412.3e].: Yes Medical Necessity: Need Close Monitoring Due to Risk of Patient Decompensation, Need For Continuous Telemetry Monitoring, Risk of Complication if Not Cared For in Hospital Post Hospital Care: D/C Residential Leasing Agent 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 Obtain CBC with diff and BMP in AM.
[2017-06-24] MEDS: ATORVASTATIN CALCIUM 40 MG TABLET PO SCH (22:25)
[2017-06-25] MEDS: GABAPENTIN 300 MG CAPSULE PO SCH ×5 (00:23→23:21)
[2017-06-25] MEDS: OXYCODONE HCL IR 5 MG TABLET PO PRN ×3 (00:23→23:25)
[2017-06-25 05:18] LABS: ABSOLUTE BASOPHILS # (AUTO) 0.1 10^3/uL (0.0-0.2); ABSOLUTE EOSINOPHILS # (AUTO) 0.3 10^3/uL (0.0-0.6); ABSOLUTE LYMPHOCYTES (AUTO) 2.5 10^3/uL (0.5-4.7); ABSOLUTE MONOCYTES (AUTO) 0.7 10^3/uL (0.1-1.4); ABSOLUTE NEUT (AUTO) 4.3 10^3/uL (1.7-8.2); BASOPHILS % (AUTO) 0.7 % (0-2); EOSINOPHILS % (AUTO) 4.4 % (0-6); HEMATOCRIT 32.8 % (36.0-47.0); HEMOGLOBIN 10.5 g/dL (12.0-15.5); LYMPHOCYTES % (AUTO) 31.2 % (13-45); MEAN CORPUSCULAR HEMOGLOBIN 28.1 pg (27.0-33.4); MEAN CORPUSCULAR HGB CONC 32.1 g/dL (32.0-36.0); MEAN CORPUSCULAR VOLUME 88 fl (80-97); MONOCYTES % (AUTO) 9.1 % (3-13); PLATELET COUNT 284 10^3/uL (150-450); RED BLOOD COUNT 3.74 10^6/uL (3.72-5.28); RED CELL DISTRIBUTION WIDTH 17.4 % (11.5-14.0); SEGMENTED NEUTROPHILS % (AUTO) 54.6 % (42-78); TOTAL CELLS COUNTED % (AUTO) 100 %; WHITE BLOOD COUNT 7.9 10^3/uL (4.0-10.5)
[2017-06-25 05:40] LABS: ANION GAP 7 (5-19); BLOOD UREA NITROGEN 5 mg/dL (7-20); CALCIUM 8.9 mg/dL (8.4-10.2); CARBON DIOXIDE 30 mmol/L (22-30); CHLORIDE 105 mmol/L (98-107); GLUCOSE 103 mg/dL (75-110); SODIUM 142.1 mmol/L (137-145)
[2017-06-25] MEDS: LANSOPRAZOLE 30 MG TAB.RAP.DR PO SCH (06:45)
[2017-06-25] MEDS: ENOXAPARIN SODIUM INJ 40 MG/0.4 ML DISP.SYRIN SUBCUT SCH (09:38)
[2017-06-25] MEDS: INSULIN GLARGINE,HUM.REC.ANLOG 300 UNIT/3 ML INSULN.PEN SUBCUT SCH ×2 (09:39→23:02)
[2017-06-25] MEDS: FLUCONAZOLE 100 MG TABLET PO SCH (09:39)
[2017-06-25] MEDS: CLOPIDOGREL BISULFATE 75 MG TABLET PO SCH (09:39)
[2017-06-25] MEDS: SACUBITRIL/VALSARTAN 49 MG/51 MG TABLET PO SCH ×2 (09:39→23:02)
[2017-06-25] MEDS: CEFTRIAXONE SODIUM 1,000 MG in NORMAL SALINE 100 ML IV SCH (09:39)
--- NOTE | 2017-06-25 17:29 | PDOC PROGRESS REPORT ---
Subjective Progress Note for:: 06/25/17 Subjective:: Out of bed in recliner chair. Denied any difficulty with breathing or chest pain. Continue to experience occasional abdominal pain, but no nausea or vomiting. No reported fever or chills. Reason For Visit: ACUTE ON CHRONIC SYSTOLIC CHF,UTI Physical Exam Vital Signs: Temp Pulse Resp BP Pulse Ox 98.4 F 76 16 166/71 H 98 06/25/17 14:59 06/25/17 14:59 06/25/17 14:59 06/25/17 14:59 06/25/17 14:59 Intake & Output 06/24/17 06/25/17 06/26/17 06:59 06:59 06:59 Intake Total 1347 1295 Output Total 3000 1350 Balance -1653 -55 Weight 115.1 kg Physical Exam: General appearance: PRESENT: no acute distress, well-developed, well-nourished Head exam: PRESENT: atraumatic, normocephalic Eye exam: PRESENT: conjunctiva pink, EOMI, PERRLA. ABSENT: scleral icterus Mouth exam: PRESENT: moist Teeth exam: PRESENT: poor dentition Respiratory exam: PRESENT: clear to auscultation jerrica, decreased breath sounds Cardiovascular exam: PRESENT: RRR. ABSENT: diastolic murmur, rubs, systolic murmur GI/Abdominal exam: PRESENT: RUQ and Mid gastric regions expressed tenderness to palpation, normal bowel sounds, soft. ABSENT: distended, guarding, mass, organomegaly, rebound, Musculoskeletal exam: PRESENT: deformity - left foot from heel region diabetic ulcer, recurrent bilateral pitting pedal edema. Neurological exam: PRESENT: alert, awake, oriented to person, oriented to place , oriented to time, oriented to situation, CN II-XII grossly intact. ABSENT: motor sensory deficit Psychiatric exam: PRESENT: appropriate affect, normal mood. ABSENT: homicidal ideation, suicidal ideation Skin exam: PRESENT: dry, warm, other - diabetic foot ulcer left foot, wound vac in situ. Stage 2 sacral pressure ulcer. Results Laboratory Results: 06/25/17 04:47 06/25/17 04:47 06/25/17 06/25/17 04:47 04:47 WBC 7.9 RBC 3.74 Hgb 10.5 L Hct 32.8 L MCV 88 MCH 28.1 MCHC 32.1 RDW 17.4 H Plt Count 284 Seg Neutrophils % 54.6 Lymphocytes % 31.2 Monocytes % 9.1 Eosinophils % 4.4 Basophils % 0.7 Absolute Neutrophils 4.3 Absolute Lymphocytes 2.5 Absolute Monocytes 0.7 Absolute Eosinophils 0.3 Absolute Basophils 0.1 Sodium 142.1 Potassium 4.0 Chloride 105 Carbon Dioxide 30 Anion Gap 7 BUN 5 L Creatinine 0.64 Est GFR ( Amer) > 60 Est GFR (Non-Af Amer) > 60 Glucose 103 Calcium 8.9 06/19/17 22:30 Blood Blood Culture - Final NO GROWTH IN 5 DAYS 06/19/17 22:00 Blood Blood Culture - Final NO GROWTH IN 5 DAYS Impressions: Chest X-Ray 06/19/17 01:58 IMPRESSION: Stable cardiac enlargement and pulmonary vascular congestion. Abdomen Ultrasound 06/20/17 00:00 IMPRESSION: Gallstones. Possible minimal free fluid. Assessment & Plan - Diagnosis (1) Fall in home Qualifiers: Encounter type: initial encounter Qualified Code(s): W19.XXXA - Unspecified fall, initial encounter; Y92.009 - Unspecified place in unspecified non-institutional (private) residence as the place of occurrence of the external cause; Y92.009 - Unspecified place in unspecified non-institutional ( private) residence as the place of occurrence of the external cause Is this a current diagnosis for this admission?: Yes (2) Acute on chronic systolic CHF (congestive heart failure) Is this a current diagnosis for this admission?: Yes Plan: Emphasized compliance with fluid restrictions. Restart on Lasix 40 mg po daily. (3) UTI (urinary tract infection) Qualifiers: Urinary tract infection type: site unspecified Hematuria presence: without hematuria Qualified Code(s): N39.0 - Urinary tract infection, site not specified (4) Diabetes mellitus type 2 in obese Is this a current diagnosis for this admission?: Yes (5) 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 2 diabetes mellitus Qualifiers: Diabetic foot ulcer location: heel Is this a current diagnosis for this admission?: Yes (6) HTN (hypertension) Qualifiers: Hypertension type: essential hypertension Qualified Code(s): I10 - Essential (primary) hypertension Is this a current diagnosis for this admission?: Yes (7) CAD (coronary artery disease) Qualifiers: Coronary Disease-Associated Artery/Lesion type: unspecified vessel or lesion type [place] vs. transplanted heart: [place] heart Associated angina: without angina Qualified Code(s): I25.10 - Atherosclerotic heart disease of [place] coronary artery without angina pectoris Is this a current diagnosis for this admission?: Yes (8) HLD (hyperlipidemia) Qualifiers: Hyperlipidemia type: pure hypercholesterolemia Qualified Code(s): E78.00 - Pure hypercholesterolemia, unspecified (9) PVD (peripheral vascular disease) Is this a current diagnosis for this admission?: Yes (10) S/P CABG (coronary artery bypass graft) Is this a current diagnosis for this admission?: Yes (11) Hx of stroke without residual deficits Is this a current diagnosis for this admission?: Yes (12) Chronic use of opiate for therapeutic purpose Is this a current diagnosis for this admission?: Yes (13) Anemia of chronic disease Is this a current diagnosis for this admission?: Yes (14) Cholelithiasis without obstruction Qualifiers: Cholelithiasis location: gallbladder Cholecystitis acuity: unspecified acuity Is this a current diagnosis for this admission?: Yes Plan: Possible cause of her intermittent abdominal pain. I will request surgical consultation to evaluate for any further intervention. (15) Pressure ulcer of sacral region, stage 2 Is this a current diagnosis for this admission?: Yes - Time Time Spent with patient: 25-34 minutes Medications reviewed and adjusted accordingly: Yes Anticipated discharge: Home with Homehealth Within: Other - Inpatient Certification Based on my medical assessment, after consideration of the patient's comorbidities, presenting symptoms, or acuity I expect that the services needed warrant INPATIENT care.: Yes I certify that my determination is in accordance with my understanding of Medicare's requirements for reasonable and necessary INPATIENT services [42 CFR 412.3e].: Yes Medical Necessity: Need Close Monitoring Due to Risk of Patient Decompensation, Need For Continuous Telemetry Monitoring, Need for IV Antibiotics, Risk of Complication if Not Cared For in Hospital Post Hospital Care: D/C [employer] Documentation - Plan Summary Plan Summary: Continue all current medication management.
--- NOTE | 2017-06-25 22:25 | PDOC CONSULTATION ---
Consultation Consult Date: 06/25/17 Consult reason:: Abdominal pain History of Present Illness Admission Date/PCP: 06/19/17 05:52 STEPHAN TAFOYA History of Present Illness: JAVIER BURGER is a 61 year old female known to my practice who was recently discharged from this facility after admission for left foot infected diabetic ulcer. She reported continue weakness and incidental fall at home with difficulty getting up from the floor. She reported been on the floor for more than 3 hours before she was eventually found and brought to the ED by EMS personnel. She claimed that she accidentally slide off her couch. She denied loss of consciousness or sustaining any injury. Patient was discharge home with home health agency services including physical therapy but she claimed that no one showed up. She reported worsening shortness of breath and chest congestion. She denied any associated fever but did experience chills. No nausea, vomiting, or abdominal pain. She claimed generalized weakness, episode of bleeding from her left foot diabetic ulcer and have no had wound vac application since she was discharged. She expressed willingness to go to SNF for short term rehabilitation. This option was recommended to her during her last hospitalization but she reclined and choice to go home with home health agency services. Her morbidities include Diabetes Mellitus Type 2, chronic systolic CHF , Hypertension, Coronary Artery Disease s/p CABG, Old Heart Attack, Hypercholesterolemia, Peripheral Vascular Disease, and history of stroke without significant motor deficit. Specific last 3-4 days she has had increased abdominal pain epigastric right and left sides wrapping around her abdomen; she has had some nausea but no vomiting. She is aware she had gallstones. She had a gallbladder ultrasound 4 days ago which confirmed gallstones. Bowel movement today, normal. She has had a colonoscopy in the last few months by Dr. Bee, uncertain of the findings. Had some constipation but not chronic. Pain is worse today. Surgery was consulted and a CT scan was advised Past Medical History Cardiac Medical History: Reports: Congestive Heart Failure, Coronary Artery Disease, Myocardial Infarction, Hyperlipidema, Hypertension, Peripheral Vascular Disease Denies: Atrial Fibrillation, Pulmonary Embolism, Heart Murmur Pulmonary Medical History: Reports: Bronchitis Denies: Asthma, Chronic Obstructive Pulmonary Disease (COPD), Pneumonia, Respiratory Failure, Sleep Apnea, Tuberculosis Neurological Medical History: Denies: Seizures Endocrine Medical History: Reports: Diabetes Mellitus Type 1, Diabetes Mellitus Type 2 Denies: Hyperthyroidism, Hypothyroidism Renal/ Medical History: Denies: End Stage Renal Disease Malignancy Medical History: Denies: Breast Cancer, Cervical Cancer, Leukemia, Lung Cancer, Ovarian Cancer GI Medical History: Reports: Diverticulitis - diverticulosis Denies: Crohn's Disease, Gastroesophageal Reflux Disease, Hiatal Hernia Musculoskeltal Medical History: Denies: Arthritis, Fibromyalgia Psychiatric Medical History: Denies: Bipolar Disorder, Dementia, Depression, Post Traumatic Stress Disorder Hematology: Denies: Anemia, Hemophilia, Sickle Cell Disease Infectious Medical History: Denies: HIV Past Surgical History Past Surgical History: Reports: Coronary Artery Bypass Graft - July 31 2011, Tonsillectomy, Vascular Surgery Denies: Amputation, Appendectomy, Cardiac Catheterization, Section, Cholecystectomy, Colostomy, Gastric Bypass Surgery, Herniorrhaphy, Hysterectomy , Mastectomy, Pacemaker, Tubal Ligation Social History Lives with: Family Smoking Status: Former Smoker Number of Years Smokin Last Time Smoked: 02/2017 Frequency of Alcohol Use: None Hx Recreational Drug Use: No Drugs: None Hx Prescription Drug Abuse: No - Advance Directive Resuscitation Status: Full Code Family History Family History: Reviewed & Not Pertinent, CAD, Hyperlipidemia, Hypertension Parental Family History Reviewed: Yes Children Family History Reviewed: Yes Sibling(s) Family History Reviewed.: Yes Medication/Allergy Home Medications: Amlodipine Besylate [Norvasc 10 mg Tablet] 10 mg PO DAILY 06/19/17 Atorvastatin Calcium [Lipitor 40 mg Tablet] 40 mg PO QHS 06/19/17 Clopidogrel Bisulfate [Plavix 75 mg Tablet] 75 mg PO DAILY 06/19/17 Furosemide [Lasix 40 mg Tablet] 40 mg PO DAILY 06/19/17 Gabapentin [Neurontin 300 mg Capsule] 300 mg PO Q6 06/19/17 Insulin Glargine,Hum.rec.anlog [Lantus Solostar] 45 units SQ Q12 06/19/17 Insulin Lispro [Humalog Kwikpen U-100] 0 unit SQ .SLIDING SCALE 06/19/17 Lisinopril [Prinivil 30 mg Tablet] 30 mg PO Q12 06/19/17 Oxycodone HCl 15 mg PO Q6HP PRN 06/19/17 Allergies/Adverse Reactions: pregabalin [From Lyrica] Allergy (Verified 05/18/17 17:24) Review of Systems Ears: ABSENT: hearing changes Cardiovascular: ABSENT: chest pain, dyspnea on exertion, edema, orthropnea, palpitations Gastrointestinal: ABSENT: abdominal pain, constipation, diarrhea, hematemesis, hematochezia, nausea, vomiting Genitourinary: ABSENT: dysuria, hematuria Musculoskeletal: PRESENT: other - Wound VAC left heel for chronic wound Physical Exam Vital Signs: Temp Pulse Resp BP Pulse Ox 98.4 F 76 16 166/71 H 98 06/25/17 14:59 06/25/17 14:59 06/25/17 14:59 06/25/17 14:59 06/25/17 14:59 Intake & Output 06/24/17 06/25/17 06/26/17 06:59 06:59 06:59 Intake Total 1347 1295 1100 Output Total 3000 1350 1100 Balance -1653 -55 0 Weight 115.1 kg General appearance: PRESENT: no acute distress Mouth exam: PRESENT: moist Neck exam: PRESENT: full ROM Respiratory exam: PRESENT: clear to auscultation jerrica Cardiovascular exam: PRESENT: RRR GI/Abdominal exam: PRESENT: guarding - Guarding in the epigastric areas. Nonlocalized. No distention no umbilical hernia no groin hernias Rectal exam: PRESENT: deferred Musculoskeletal exam: PRESENT: other - Moderate edema; wound VAC left heel Results Laboratory Results: 06/25/17 04:47 06/25/17 04:47 06/25/17 06/25/17 04:47 04:47 WBC 7.9 RBC 3.74 Hgb 10.5 L Hct 32.8 L MCV 88 MCH 28.1 MCHC 32.1 RDW 17.4 H Plt Count 284 Seg Neutrophils % 54.6 Lymphocytes % 31.2 Monocytes % 9.1 Eosinophils % 4.4 Basophils % 0.7 Absolute Neutrophils 4.3 Absolute Lymphocytes 2.5 Absolute Monocytes 0.7 Absolute Eosinophils 0.3 Absolute Basophils 0.1 Sodium 142.1 Potassium 4.0 Chloride 105 Carbon Dioxide 30 Anion Gap 7 BUN 5 L Creatinine 0.64 Est GFR ( Amer) > 60 Est GFR (Non-Af Amer) > 60 Glucose 103 Calcium 8.9 06/19/17 22:30 Blood Blood Culture - Final NO GROWTH IN 5 DAYS 06/19/17 22:00 Blood Blood Culture - Final NO GROWTH IN 5 DAYS Impressions: Chest X-Ray 06/19/17 01:58 IMPRESSION: Stable cardiac enlargement and pulmonary vascular congestion. Abdomen Ultrasound 06/20/17 00:00 IMPRESSION: Gallstones. Possible minimal free fluid. Assessment & Plan - Diagnosis (1) Abdominal pain Qualifiers: Abdominal location: generalized Qualified Code(s): R10.84 - Generalized abdominal pain Is this a current diagnosis for this admission?: Yes Plan: Abdominal pain subacute, worsening, nonlocalized, unremarkable laboratory profile. Reportedly unremarkable colonoscopy recently. Known gallstones. Etiology of patient's symptoms unclear; no evidence of intra-abdominal sepsis Recommendation: 1. CT scan with IV and oral contrast this evening. 2. Keep n.p.o. 2. Further recommendations to follow pending results of CT scan - Time Time Spent: 50 to 70 Minutes Smoking Cessation Education: over 10 minutes Anticipated discharge: Home - Inpatient Certification Based on my medical assessment, after consideration of the patient's comorbidities, presenting symptoms, or acuity I expect that the services needed warrant INPATIENT care.: Yes I certify that my determination is in accordance with my understanding of Medicare's requirements for reasonable and necessary INPATIENT services [42 CFR 412.3e].: Yes
[2017-06-25] MEDS: ATORVASTATIN CALCIUM 40 MG TABLET PO SCH (23:02)
[2017-06-26] MEDS: GABAPENTIN 300 MG CAPSULE PO SCH ×3 (05:27→18:04)
[2017-06-26] MEDS: LANSOPRAZOLE 30 MG TAB.RAP.DR PO SCH (05:27)
[2017-06-26] MEDS: ENOXAPARIN SODIUM INJ 40 MG/0.4 ML DISP.SYRIN SUBCUT SCH (12:50)
[2017-06-26] MEDS: CLOPIDOGREL BISULFATE 75 MG TABLET PO SCH (12:50)
[2017-06-26] MEDS: SACUBITRIL/VALSARTAN 49 MG/51 MG TABLET PO SCH ×2 (12:51→22:19)
[2017-06-26] MEDS: FUROSEMIDE 40 MG TABLET PO SCH (12:51)
[2017-06-26] MEDS: FLUCONAZOLE 100 MG TABLET PO SCH (12:51)
[2017-06-26] MEDS: INSULIN GLARGINE,HUM.REC.ANLOG 300 UNIT/3 ML INSULN.PEN SUBCUT SCH ×2 (12:52→22:18)
--- NOTE | 2017-06-26 13:55 | RADIOLOGY REPORT (SQ) ---
EXAM DESCRIPTION: CT ABD/PELVIS ORAL ONLY COMPLETED DATE/TIME: 06/26/2017 11:25 am REASON FOR STUDY: Abdominal pain uncertain etiology COMPARISON: None. TECHNIQUE: CT scan of the abdomen and pelvis performed essentially without intravenous contrast. Du ring power injection, the IV came out of the patient's arm. No focal contrast extravasation in the s oft tissues. Patient did drink oral contrast Images reviewed with lung, soft tissue, and bone windows. Reconstructed coronal and sagittal MPR imag es reviewed. All images stored on PACS. All CT scanners at this facility use dose modulation, iterative reconstruction, and/or weight based d osing when appropriate to reduce radiation dose to as low as reasonably achievable (ALARA). [facility]: Dose Right [facility]: CareDose [facility]: Dose Right [facility]: Teradose 4D [facility]: reKode Education RADIATION DOSE: CT Rad equipment meets quality standard of care and radiation dose reduction techniq ues were employed. CTDIvol: 21.0 mGy. DLP: 1057 mGy-cm.mGy. LIMITATIONS: Insufficient IV contrast bolus. FINDINGS: LOWER CHEST: Trace left pleural fluid. Lung bases are clear. Moderate cardiomegaly NON-CONTRASTED LIVER, SPLEEN, ADRENALS: Evaluation limited by lack of IV contrast. No identified sign ificant masses. PANCREAS: No masses. No peripancreatic inflammatory changes. GALLBLADDER: Faintly radiodense gallstones. No gallbladder wall thickening or pericholecystic fluid. RIGHT KIDNEY AND URETER: No suspicious masses. Assessment limited by lack of IV contrast. No signif icant calcifications. No hydronephrosis or hydroureter. LEFT KIDNEY AND URETER: No suspicious masses. Assessment limited by lack of IV contrast. No signifi cant calcifications. No hydronephrosis or hydroureter. AORTA AND RETROPERITONEUM: No aneurysm. No retroperitoneal masses or adenopathy. BOWEL AND PERITONEAL CAVITY: Patient drank oral contrast. No CT evidence of bowel obstruction. Mode rate stool in the descending colon and sigmoid colon. APPENDIX: Normal. PELVIS, BLADDER, AND ABDOMINAL WALL:No abnormal masses. No free fluid. Bladder decompressed by a Fole y catheter. Normal size female pelvic organs with copper IUD. BONES: Diffuse degenerative changes lumbar spine OTHER: No other significant finding. IMPRESSION: NO SIGNIFICANT OR ACUTE PROCESS IN THE ABDOMEN OR PELVIS. COMMENT: Quality ID # [id number]: Final reports with documentation of one or more dose reduction techniques (e.g., Automated exposure control, adjustment of the mA and/or kV according to patient size, use of iterative reconstruction technique) TECHNICAL DOCUMENTATION: JOB ID: [id number] [employer]- All Rights Reserved
[2017-06-26] MEDS: CEFTRIAXONE SODIUM 1,000 MG in NORMAL SALINE 100 ML IV SCH (15:30)
--- NOTE | 2017-06-26 15:34 | PDOC PROGRESS REPORT ---
Subjective Progress Note for:: 06/26/17 Subjective:: patient comfortable but still c/o of mild diffuse abdominal pain, she reports, flatus, stools and denies nausea or vomiting Reason For Visit: ACUTE ON CHRONIC SYSTOLIC CHF,UTI Physical Exam Vital Signs: Temp Pulse Resp BP Pulse Ox 98.5 F 87 16 188/84 H 100 06/26/17 12:30 06/26/17 12:30 06/26/17 12:30 06/26/17 12:30 06/26/17 12:30 Intake & Output 06/25/17 06/26/17 06/27/17 06:59 06:59 06:59 Intake Total 1295 1600 400 Output Total 1350 2100 1200 Balance -55 -500 -800 Weight 111.5 kg General appearance: PRESENT: no acute distress GI/Abdominal exam: PRESENT: soft - obese, tender on light palpation of all quafrants Results Laboratory Results: 06/25/17 04:47 06/25/17 04:47 Impressions: Chest X-Ray 06/19/17 01:58 IMPRESSION: Stable cardiac enlargement and pulmonary vascular congestion. Abdomen Ultrasound 06/20/17 00:00 IMPRESSION: Gallstones. Possible minimal free fluid. Abdomen/Pelvis CT 06/25/17 00:00 IMPRESSION: NO SIGNIFICANT OR ACUTE PROCESS IN THE ABDOMEN OR PELVIS. Assessment & Plan - Plan Summary Plan Summary: A/ Abdominal pain unknown cause Patient does not have any characteristic GI symptoms of intraabdominal process at this time CT scan A/P with oral contrast is unremarkable P/ No surgical intervention planned as no there no significant findings on CT scan A/P done today I will sign off, please, call me with questions
--- NOTE | 2017-06-26 18:10 | PDOC PROGRESS REPORT ---
Subjective Progress Note for:: 06/26/17 Subjective:: Patient denied any chest pain or difficulty with breathing. No nausea or vomiting. Her reported abdominal remain intermittent. surgical team input and CT scan findings discussed with patient during my bedside visit. Reason For Visit: ACUTE ON CHRONIC SYSTOLIC CHF,UTI Physical Exam Vital Signs: Temp Pulse Resp BP Pulse Ox 98.6 F 85 18 157/81 H 98 06/26/17 15:13 06/26/17 15:13 06/26/17 15:13 06/26/17 15:13 06/26/17 15:13 Intake & Output 06/25/17 06/26/17 06/27/17 06:59 06:59 06:59 Intake Total 1295 1600 400 Output Total 1350 2100 1200 Balance -55 -500 -800 Weight 111.5 kg Physical Exam: General appearance: PRESENT: no acute distress, well-developed, well-nourished Head exam: PRESENT: atraumatic, normocephalic Eye exam: PRESENT: conjunctiva pink, EOMI, PERRLA. ABSENT: scleral icterus Mouth exam: PRESENT: moist Teeth exam: PRESENT: poor dentition Respiratory exam: PRESENT: clear to auscultation jerrica, decreased breath sounds Cardiovascular exam: PRESENT: RRR. ABSENT: diastolic murmur, rubs, systolic murmur GI/Abdominal exam: PRESENT: normal bowel sounds, soft. ABSENT: distended, tenderness, guarding, mass, organomegaly, rebound, Musculoskeletal exam: PRESENT: deformity - left foot from heel region diabetic ulcer, recurrent bilateral pitting pedal edema. Neurological exam: PRESENT: alert, awake, oriented to person, oriented to place , oriented to time, oriented to situation, CN II-XII grossly intact. ABSENT: motor sensory deficit Psychiatric exam: PRESENT: appropriate affect, normal mood. ABSENT: homicidal ideation, suicidal ideation Skin exam: PRESENT: dry, warm, other - diabetic foot ulcer left foot, wound vac in situ. Stage 2 sacral pressure ulcer. Results Laboratory Results: 06/25/17 04:47 06/25/17 04:47 Impressions: Chest X-Ray 06/19/17 01:58 IMPRESSION: Stable cardiac enlargement and pulmonary vascular congestion. Abdomen Ultrasound 06/20/17 00:00 IMPRESSION: Gallstones. Possible minimal free fluid. Abdomen/Pelvis CT 06/25/17 00:00 IMPRESSION: NO SIGNIFICANT OR ACUTE PROCESS IN THE ABDOMEN OR PELVIS. Assessment & Plan - Diagnosis (1) Fall in home Qualifiers: Encounter type: initial encounter Qualified Code(s): W19.XXXA - Unspecified fall, initial encounter; Y92.009 - Unspecified place in unspecified non-institutional (private) residence as the place of occurrence of the external cause; Y92.009 - Unspecified place in unspecified non-institutional ( private) residence as the place of occurrence of the external cause Is this a current diagnosis for this admission?: Yes (2) Acute on chronic systolic CHF (congestive heart failure) Is this a current diagnosis for this admission?: Yes (3) UTI (urinary tract infection) Qualifiers: Urinary tract infection type: site unspecified Hematuria presence: without hematuria Qualified Code(s): N39.0 - Urinary tract infection, site not specified (4) Diabetes mellitus type 2 in obese Is this a current diagnosis for this admission?: Yes (5) 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 2 diabetes mellitus Qualifiers: Diabetic foot ulcer location: heel Is this a current diagnosis for this admission?: Yes (6) HTN (hypertension) Qualifiers: Hypertension type: essential hypertension Qualified Code(s): I10 - Essential (primary) hypertension Is this a current diagnosis for this admission?: Yes (7) CAD (coronary artery disease) Qualifiers: Coronary Disease-Associated Artery/Lesion type: unspecified vessel or lesion type [place] vs. transplanted heart: [place] heart Associated angina: without angina Qualified Code(s): I25.10 - Atherosclerotic heart disease of [place] coronary artery without angina pectoris Is this a current diagnosis for this admission?: Yes (8) HLD (hyperlipidemia) Qualifiers: Hyperlipidemia type: pure hypercholesterolemia Qualified Code(s): E78.00 - Pure hypercholesterolemia, unspecified (9) PVD (peripheral vascular disease) Is this a current diagnosis for this admission?: Yes (10) S/P CABG (coronary artery bypass graft) Is this a current diagnosis for this admission?: Yes (11) Hx of stroke without residual deficits Is this a current diagnosis for this admission?: Yes (12) Chronic use of opiate for therapeutic purpose Is this a current diagnosis for this admission?: Yes (13) Anemia of chronic disease Is this a current diagnosis for this admission?: Yes (14) Cholelithiasis without obstruction Qualifiers: Cholelithiasis location: gallbladder Cholecystitis acuity: unspecified acuity Is this a current diagnosis for this admission?: Yes (15) Pressure ulcer of sacral region, stage 2 Is this a current diagnosis for this admission?: Yes - Time Time Spent with patient: 25-34 minutes Medications reviewed and adjusted accordingly: Yes Anticipated discharge: Home with Homehealth Within: within 24 hours - Inpatient Certification Based on my medical assessment, after consideration of the patient's comorbidities, presenting symptoms, or acuity I expect that the services needed warrant INPATIENT care.: Yes I certify that my determination is in accordance with my understanding of Medicare's requirements for reasonable and necessary INPATIENT services [42 CFR 412.3e].: Yes Medical Necessity: Need Close Monitoring Due to Risk of Patient Decompensation, Need For Continuous Telemetry Monitoring, Need for IV Antibiotics, Risk of Complication if Not Cared For in Hospital Post Hospital Care: D/C [employer] Documentation - Plan Summary Plan Summary: D/C IV Rocephin and oral Diflucan therapy. Continue other current medication management. agreeable to discharge home tomorrow with [facility] services.
[2017-06-26] MEDS: OXYCODONE HCL IR 5 MG TABLET PO PRN (18:31)
[2017-06-26] MEDS: ATORVASTATIN CALCIUM 40 MG TABLET PO SCH (22:19)
[2017-06-27] MEDS: GABAPENTIN 300 MG CAPSULE PO SCH ×3 (00:31→12:39)
[2017-06-27] MEDS: LANSOPRAZOLE 30 MG TAB.RAP.DR PO SCH (05:18)
[2017-06-27] MEDS: SACUBITRIL/VALSARTAN 49 MG/51 MG TABLET PO SCH (09:16)
[2017-06-27] MEDS: ENOXAPARIN SODIUM INJ 40 MG/0.4 ML DISP.SYRIN SUBCUT SCH (09:16)
[2017-06-27] MEDS: CLOPIDOGREL BISULFATE 75 MG TABLET PO SCH (09:16)
[2017-06-27] MEDS: FUROSEMIDE 40 MG TABLET PO SCH (09:16)
[2017-06-27] MEDS: INSULIN GLARGINE,HUM.REC.ANLOG 300 UNIT/3 ML INSULN.PEN SUBCUT SCH (09:16)
--- NOTE | 2017-06-27 13:42 | PDOC DISCHARGE SUMMARY ---
General - Admit/Disc Date/PCP Admission Date/Primary Care Provider: 06/19/17 05:52 STEPHAN TAFOYA Discharge Date: 06/27/17 - Discharge Diagnosis (1) Fall in home Is this a current diagnosis for this admission?: Yes (2) Acute on chronic systolic CHF (congestive heart failure) Is this a current diagnosis for this admission?: Yes (4) Diabetes mellitus type 2 in obese Is this a current diagnosis for this admission?: Yes (5) 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 2 diabetes mellitus Is this a current diagnosis for this admission?: Yes (6) HTN (hypertension) Is this a current diagnosis for this admission?: Yes (7) CAD (coronary artery disease) Is this a current diagnosis for this admission?: Yes (9) PVD (peripheral vascular disease) Is this a current diagnosis for this admission?: Yes (10) S/P CABG (coronary artery bypass graft) Is this a current diagnosis for this admission?: Yes (11) Hx of stroke without residual deficits Is this a current diagnosis for this admission?: Yes (12) Chronic use of opiate for therapeutic purpose Is this a current diagnosis for this admission?: Yes (13) Anemia of chronic disease Is this a current diagnosis for this admission?: Yes (14) Cholelithiasis without obstruction Is this a current diagnosis for this admission?: Yes (15) Pressure ulcer of sacral region, stage 2 Is this a current diagnosis for this admission?: Yes - Additional Information Resuscitation Status: Full Code Prescriptions: Collagenase Clostridium Hist. [Santyl Ointment 30 gm] 1 applic TOP ASDIR PRN #2 tube PRN Reason: Insulin Glargine,Hum.rec.anlog [Lantus Insulin 100 Unit/mL] 40 unit SUBCUT Q12 # 10 insuln.pen Insulin Lispro [Humalog Kwikpen U-100] 0 unit SQ .SLIDING SCALE #5 insuln.pen Oxycodone HCl 5 mg PO Q4HP PRN #20 tablet PRN Reason: Sacubitril/Valsartan [Entresto 49 mg/51 mg Tablet] 1 tab PO Q12 #60 tablet Home Medications: Atorvastatin Calcium [Lipitor 40 mg Tablet] 40 mg PO QHS 06/19/17 Clopidogrel Bisulfate [Plavix 75 mg Tablet] 75 mg PO DAILY 06/19/17 Furosemide [Lasix 40 mg Tablet] 40 mg PO DAILY 06/19/17 Gabapentin [Neurontin 300 mg Capsule] 300 mg PO Q6 06/19/17 Insulin Glargine,Hum.rec.anlog [Lantus Solostar] 45 units SQ Q12 06/19/17 Collagenase Clostridium Hist. [Santyl Ointment 30 gm] 1 applic TOP ASDIR PRN #2 tube 06/27/17 Insulin Glargine,Hum.rec.anlog [Lantus Insulin 100 Unit/mL] 40 unit SUBCUT Q12 # 10 insuln.pen 06/27/17 Insulin Lispro [Humalog Kwikpen U-100] 0 unit SQ .SLIDING SCALE #5 insuln.pen Oxycodone HCl 5 mg PO Q4HP PRN #20 tablet 06/27/17 Sacubitril/Valsartan [Entresto 49 mg/51 mg Tablet] 1 tab PO Q12 #60 tablet 06/27 History of Present Illness History of Present Illness: JAVIER BURGER is a 61 year old female known to my practice who was recently discharged from this facility after admission for left foot infected diabetic ulcer. She reported continue weakness and incidental fall at home with difficulty getting up from the floor. She reported been on the floor for more than 3 hours before she was eventually found and brought to the ED by EMS personnel. She claimed that she accidentally slide off her couch. She denied loss of consciousness or sustaining any injury. Patient was discharge home with home health agency services including physical therapy but she claimed that no one showed up. She reported worsening shortness of breath and chest congestion. She denied any associated fever but did experience chills. No nausea, vomiting, or abdominal pain. She claimed generalized weakness, episode of bleeding from her left foot diabetic ulcer and have no had wound vac application since she was discharged. She expressed willingness to go to SNF for short term rehabilitation. This option was recommended to her during her last hospitalization but she reclined and choice to go home with home health agency services. Her morbidities include Diabetes Mellitus Type 2, chronic systolic CHF , Hypertension, Coronary Artery Disease s/p CABG, Old Heart Attack, Hypercholesterolemia, Peripheral Vascular Disease, and history of stroke without significant motor deficit. Hospital Course Hospital Course: She was admitted for fall, congestion and acute exacerbated chronic systolic CHF. She responded to diuretic with fluid restriction as well as change in her medication to Entresto. She was managed with IV antibiotic for concern of infected diabetic foot ulcer as well as upper respiratory tract infection. Her blood culture was not growth after 5 days. her urine culture did grew Nellie specie and [place] was admitted to her treatment regimen. Due to her reported persistent abdominal pain, she had abdominal ultrasound completed during this hospitalization that revealed non-obstructive cholelithiasis. Due to her persistent abdominal pain, she was seen in consultation by the surgicalist team. Her further evaluation with abdominal CT scan with contrast was negative for any significant intra abdominal or pelvic pathology. At this time there is no need for any surgical intervention. She was transfused 2 units PRBC during this hospitalization due to significant anemia related to chronic disease. She has been able to participate in in hospital physical rehabilitation session. She will be discharged home with [facility] services with wound vac therapy for her left foot diabetic ulcer. She will need vascular surgery follow up as well as follow up at [facility]. Physical Exam Vital Signs: Temp Pulse Resp BP Pulse Ox 98.6 F 79 16 163/76 H 98 06/27/17 12:42 06/27/17 12:42 06/27/17 12:42 06/27/17 12:42 06/27/17 12:42 Intake & Output 06/26/17 06/27/17 06/28/17 06:59 06:59 06:59 Intake Total 1600 1080 600 Output Total 2100 2825 900 Balance -500 -1745 -300 Weight 109.2 kg Physical Exam: General appearance: PRESENT: no acute distress, well-developed, well-nourished Head exam: PRESENT: atraumatic, normocephalic Eye exam: PRESENT: conjunctiva pink, EOMI, PERRLA. ABSENT: scleral icterus Mouth exam: PRESENT: moist Teeth exam: PRESENT: poor dentition Respiratory exam: PRESENT: clear to auscultation jerrica, decreased breath sounds Cardiovascular exam: PRESENT: RRR. ABSENT: diastolic murmur, rubs, systolic murmur GI/Abdominal exam: PRESENT: normal bowel sounds, soft. ABSENT: distended, tenderness, guarding, mass, organomegaly, rebound, Musculoskeletal exam: PRESENT: deformity - left foot from heel region diabetic ulcer, recurrent bilateral pitting pedal edema. Neurological exam: PRESENT: alert, awake, oriented to person, oriented to place , oriented to time, oriented to situation, CN II-XII grossly intact. ABSENT: motor sensory deficit Psychiatric exam: PRESENT: appropriate affect, normal mood. ABSENT: homicidal ideation, suicidal ideation Skin exam: PRESENT: dry, warm, other - diabetic foot ulcer left foot, wound vac in situ. Stage 2 sacral pressure ulcer. Results Laboratory Results: 06/25/17 04:47 06/25/17 04:47 Impressions: Chest X-Ray 06/19/17 01:58 IMPRESSION: Stable cardiac enlargement and pulmonary vascular congestion. Abdomen Ultrasound 06/20/17 00:00 IMPRESSION: Gallstones. Possible minimal free fluid. Abdomen/Pelvis CT 06/25/17 00:00 IMPRESSION: NO SIGNIFICANT OR ACUTE PROCESS IN THE ABDOMEN OR PELVIS. Qualifiers - * PATEINT BEING DISCHARGED WITH ANY OF THE FOLLOWING DIAGNOSIS?: Heart Failure HF Pt being discharged on ACEI for LVEF less than 40%?: No Reason(s) for not prescribing ACEI:: Contraindicated HF Pt being discharged on ARBS for LVEF less than 40%?: Yes HF Pt with Afib discharged with Warfarin?: No Reason(s) for not prescribing Warfarin:: Not indicated - not in AFib HF Pt discharged on evidence-based Beta Bee:: Yes Plan Discharge Plan: D/C home with [facility] services for VN, PCS, PT/OT and wound care. Follow up in the office as instructed upon discharge. Time Spent: Less than 30 Minutes
[2017-06-27 14:37] VITALS: BP 169/65
== END 2017-06-27 16:18 | disposition home health service (06) | DRG 292 ==
LOC: ER 01:05 → EH 05:52 → UNDOADMIN 05:52 → 3W 20:45
PROVIDERS: ADMIT Internal Medicine Geriatric Medicine; ATTEND Internal Medicine Geriatric Medicine
PROC: 30233N1 Transfusion of Nonautologous Red Blood Cells into Peripheral Vein, Percutaneous Approach (ICD-10-PCS; principal; 2017-06-20)
DX: I11.0 Hypertensive heart disease with heart failure (principal); N39.0 Urinary tract infection, site not specified; L97.429 Non-pressure chronic ulcer of left heel and midfoot with unspecified severity; Z68.41 Body mass index [BMI] 40.0-44.9, adult; I50.23 Acute on chronic systolic (congestive) heart failure; E66.9 Obesity, unspecified; J06.9 Acute upper respiratory infection, unspecified; E11.621 Type 2 diabetes mellitus with foot ulcer; K80.20 Calculus of gallbladder without cholecystitis without obstruction; E11.51 Type 2 diabetes mellitus with diabetic peripheral angiopathy without gangrene; D63.8 Anemia in other chronic diseases classified elsewhere; E78.5 Hyperlipidemia, unspecified; I25.10 Atherosclerotic heart disease of native coronary artery without angina pectoris; Z95.1 Presence of aortocoronary bypass graft; L89.152 Pressure ulcer of sacral region, stage 2; Z86.73 Personal history of transient ischemic attack (TIA), and cerebral infarction without residual deficits; Z79.891 Long term (current) use of opiate analgesic; Z91.81 History of falling; I25.2 Old myocardial infarction; Z87.891 Personal history of nicotine dependence; Z82.49 Family history of ischemic heart disease and other diseases of the circulatory system; Z79.4 Long term (current) use of insulin
CPT/HCPCS: 36415; 36430; 51702; 71045; 74176; 76700; 80048; 80053; 81001; 82550; 82553; 82962; 83735; 83880; 84484; 85025; 85027; 85610; 85730; 86850; 86900; 86901; 86902; 86920; 87040; 87086; 93976; 96374; 99285; G8978-GP; G8979-GP; J0696; J1650; J1815; J1940; J3490; P9016

== ENCOUNTER 2017-06-29 04:17 | Emergency (ER) | payer MEDICARE, MEDICAID ==
--- NOTE | 2017-06-29 04:57 | ER Document Report ---
ED General - General Mode of Arrival: Ambulatory Information source: Patient TRAVEL OUTSIDE OF THE [place] IN LAST 30 DAYS: No <LUCRECIA SINCLAIR - Last Filed: 06/29/17 05:35> <MANNY MEDINA - Last Filed: 06/29/17 09:59> - General Stated Complaint: CHEST PAIN Time Seen by Provider: 06/29/17 04:35 Notes: Patient is a 61-year-old female who presents today with complaints of chest pain beginning at 1300 today. Patient describes her chest pain as a throbbing sensation. Patient mentions that she was in the hospital recently and was discharged yesterday. Patient states she was given blood secondary to anemia. Patient complains of leg swelling which she states is chronic. Patient denies any shortness of breath, any usage of blood thinners, or recently dark stools. Patient is uncooperative and a poor historian. (LUCRECIA SINCLAIR) - Related Data Allergies/Adverse Reactions: pregabalin [From Lyrica] Allergy (Verified 05/18/17 17:24) Past Medical History - General Information source: Patient - Social History Smoking Status: Never Smoker Cigarette use (# per day): No Frequency of alcohol use: None Drug Abuse: None Family History: Reviewed & Not Pertinent, CAD, Hyperlipidemia, Hypertension - Past Medical History Cardiac Medical History: Reports: Hx Congestive Heart Failure, Hx Coronary Artery Disease, Hx Heart Attack, Hx Hypercholesterolemia, Hx Hypertension, Hx Peripheral Vascular Disease Pulmonary Medical History: Reports: Hx Bronchitis Neurological Medical History: Reports: Hx Cerebrovascular Accident - 2007 Endocrine Medical History: Reports: Hx Diabetes Mellitus Type 1, Hx Diabetes Mellitus Type 2 GI Medical History: Reports: Hx Diverticulitis - diverticulosis Skin Medical History: Denies Hx MRSA Past Surgical History: Reports: Hx Cardiac Surgery - Quadruple Bypass, Hx Coronary Artery Bypass Graft - July 31 2011, Hx Tonsillectomy, Hx Vascular Surgery - Immunizations Immunizations up to date: No Hx Diphtheria, Pertussis, Tetanus Vaccination: Yes Hx Pneumococcal Vaccination: 02/04/11 <LUCRECIA SINCLAIR - Last Filed: 06/29/17 05:35> Review of Systems - Review of Systems Constitutional: No symptoms reported EENT: No symptoms reported Cardiovascular: See HPI, Chest pain - right Respiratory: denies: Short of breath Gastrointestinal: denies: Blood streaked bowels, Black stools Genitourinary: No symptoms reported Female Genitourinary: No symptoms reported Musculoskeletal: See HPI, Leg swelling - chronic Skin: No symptoms reported Hematologic/Lymphatic: No symptoms reported Neurological/Psychological: No symptoms reported -: Yes All other systems reviewed and negative <LUCRECIA SINCLAIR - Last Filed: 06/29/17 05:35> Physical Exam <YAHIRLUCRECIA - Last Filed: 06/29/17 05:35> <MANNY MEDINA - Last Filed: 06/29/17 09:59> - Vital signs Vitals: Resp 06/29/17 04:23 - Notes Notes: Physical Exam: General: Alert, uncooperative. HEENT: Normocephalic. Atraumatic. PERRL. Extraocular movements intact. Oropharynx clear. Poor dentition. Neck: Supple. Non-tender. Respiratory: Reproducible chest wall tenderness with palpation. No respiratory distress. Clear and equal breath sounds bilaterally. Cardiovascular: Regular rate and rhythm. Abdominal: Normal Inspection. Non-tender. No distension. Normal Bowel Sounds. Back: Non-tender. No deformity or step off. Extremities: Moves all four extremities. Upper extremities: Normal inspection. Normal ROM. Lower extremities: Normal inspection. No edema. Normal ROM. Neurological: Normal cognition. AAOx4. Normal speech. Psychological: Normal affect. Normal Mood. Skin: Warm. Dry. Normal color. (LUCRECIA SINCLAIR) Course - Laboratory Result Diagrams: 06/29/17 05:20 06/29/17 05:20 <LUCRECIA SINCLAIR - Last Filed: 06/29/17 05:35> - Laboratory Result Diagrams: 06/29/17 05:20 06/29/17 05:20 <MANNY MEDINA - Last Filed: 06/29/17 09:59> - Re-evaluation Re-evalutation: 06/29/17 09:57 Patient reevaluated after cardiac labs 2 return unremarkable. Patient does have history of congestive heart failure. Was recently hospitalized and discharged. Complains of chronic right upper quadrant pain with gallstones. Was evaluated by surgery as well while she was an inpatient. No pain at this time. Negative troponin 2. Consult with patient's doctor, Dr. Tafoya who recommends discharge and he will follow as an outpatient. I feel comfortable with this plan at this time. Patient is already on Lasix and her BNP is actually improved than prior. Patient is comfortable going home. Will DC at this time. (MANNY MEDINA) - Vital Signs Vital signs: Temp Pulse Resp BP Pulse Ox 9 L 164/78 H 97 06/29/17 08:01 06/29/17 08:01 06/29/17 08:01 - Laboratory Laboratory results interpreted by me: 06/29/17 06/29/17 06/29/17 05:20 05:20 05:20 Hgb 11.9 L RDW 17.1 H BUN 5 L Glucose 184 H Direct Bilirubin 0.5 H Alkaline Phosphatase 200 H NT-Pro-B Natriuret Pep 2570 H Urine Protein Urine Ketones Urine Blood 06/29/17 05:20 Hgb RDW BUN Glucose Direct Bilirubin Alkaline Phosphatase NT-Pro-B Natriuret Pep Urine Protein >=500 H Urine Ketones TRACE H Urine Blood SMALL H Discharge <LUCRECIA SINCLAIR - Last Filed: 06/29/17 05:35> <MANNY MEDINA - Last Filed: 06/29/17 09:59> - Discharge Clinical Impression: Congestive heart failure Qualifiers: Heart failure type: unspecified Heart failure chronicity: acute on chronic Qualified Code(s): I50.9 - Heart failure, unspecified Disposition: SNF-Other Instructions: Chest Pain of Unclear Cause ([facility]) Additional Instructions: Congestive Heart Failure You have been diagnosed as having congestive heart failure (CHF). CHF occurs when the heart is unable to pump blood efficiently, leading to fluid buildup in the veins and lungs. Typical symptoms are swelling of the legs, shortness of breath on minor exertion, and fatigue. CHF is treated with salt restriction, medicine to eliminate excess water and salt from the body, and medication to help the heart contract more efficiently. Eliminate added salt and salty foods in your diet. Decrease your activity until excess fluid has been eliminated. It will also be helpful to raise the head of your bed so you can sleep more easily. Keep a daily record of your weight. This will help your physician monitor your progress. Once extra water has been eliminated, light aerobic exercise daily -- such as walking -- will be helpful (unless your physician has told you to restrict activity for other reasons). Be sure to follow up with the physician as instructed. Contact the doctor at once if you worsen in any way. Chest pain Were evaluated for chest pain. If your symptoms get worse please return to the emergency department or notify someone for repeat evaluation. Referrals: STEPHAN TAFOYA MD [Primary Care Provider] - Follow up in 3-5 days Scribe Documentation - Scribe Written by Scribe:: Trent Barajas, 06/29/2017 [id number] acting as scribe for :: Woelodia <LUCRECIA SINCLAIR - Last Filed: 06/29/17 05:35>
[2017-06-29 05:37] LABS: ABSOLUTE EOSINOPHILS # (AUTO) 0.3 10^3/uL (0.0-0.6); ABSOLUTE LYMPHOCYTES (AUTO) 1.6 10^3/uL (0.5-4.7); ABSOLUTE MONOCYTES (AUTO) 0.6 10^3/uL (0.1-1.4); ABSOLUTE NEUT (AUTO) 5.3 10^3/uL (1.7-8.2); BASOPHILS % (AUTO) 0.4 % (0-2); EOSINOPHILS % (AUTO) 3.4 % (0-6); HEMATOCRIT 36.7 % (36.0-47.0); HEMOGLOBIN 11.9 g/dL (12.0-15.5); LYMPHOCYTES % (AUTO) 20.7 % (13-45); MEAN CORPUSCULAR HEMOGLOBIN 28.3 pg (27.0-33.4); MEAN CORPUSCULAR HGB CONC 32.3 g/dL (32.0-36.0); MEAN CORPUSCULAR VOLUME 88 fl (80-97); MONOCYTES % (AUTO) 7.9 % (3-13); PLATELET COUNT 318 10^3/uL (150-450); RED BLOOD COUNT 4.19 10^6/uL (3.72-5.28); RED CELL DISTRIBUTION WIDTH 17.1 % (11.5-14.0); SEGMENTED NEUTROPHILS % (AUTO) 67.6 % (42-78); TOTAL CELLS COUNTED % (AUTO) 100 %; WHITE BLOOD COUNT 7.8 10^3/uL (4.0-10.5)
[2017-06-29 05:47] LABS: APPEARANCE,URINE SLIGHTLY-CLOUDY; BILIRUBIN,URINE NEGATIVE (NEGATIVE); COLOR,URINE YELLOW; GLUCOSE, URINE NEGATIVE (NEGATIVE); KETONES,URINE TRACE mg/dL (NEGATIVE); LEUKOCYTE ESTERASE,URINE NEGATIVE (NEGATIVE); NITRITE,URINE NEGATIVE (NEGATIVE); PROTEIN,URINE >=500 mg/dL (NEGATIVE); UROBILINOGEN,URINE NEGATIVE mg/dL (<2.0)
[2017-06-29 05:51] LABS: ALANINE AMINOTRANSFERASE 16 U/L (9-52); ALBUMIN 3.6 g/dL (3.5-5.0); ALKALINE PHOSPHATASE 200 U/L (38-126); ANION GAP 11 (5-19); ASPARTATE AMINO TRANSFERASE 23 U/L (14-36); BILIRUBIN,DIRECT 0.5 mg/dL (0.0-0.4); BILIRUBIN,TOTAL 0.9 mg/dL (0.2-1.3); BLOOD UREA NITROGEN 5 mg/dL (7-20); CALCIUM 9.3 mg/dL (8.4-10.2); CARBON DIOXIDE 26 mmol/L (22-30); CHLORIDE 105 mmol/L (98-107); CREATINE KINASE 58 U/L (30-135); GLUCOSE 184 mg/dL (75-110); POTASSIUM 4.3 mmol/L (3.6-5.0); SODIUM 142.1 mmol/L (137-145)
[2017-06-29 06:02] LABS: CREATINE KINASE MB 0.79 ng/mL (<4.55); TROPONIN I 0.015 ng/mL
--- NOTE | 2017-06-29 06:07 | RADIOLOGY REPORT (SQ) ---
EXAM DESCRIPTION: CHEST SINGLE VIEW CLINICAL HISTORY: chest pain COMPARISON: 06/19/2017 FINDINGS: Single frontal view of the chest. Prior median sternotomy. Cardiomegaly. Atherosclerotic calcification tortuosity of thoracic aorta. Pulmonary vascular congestion. No consolidation, pneumothorax, or pleural effusion. No acute osseous abnormality. Upper abdominal soft tissues are unremarkable. IMPRESSION: 1. Cardiomegaly with pulmonary vascular congestion
--- NOTE | 2017-06-29 08:02 | EKG REPORT ---
SEVERITY:- ABNORMAL ECG - SINUS RHYTHM PROBABLE LEFT ATRIAL ABNORMALITY LEFT VENTRICULAR HYPERTROPHY BORDERLINE PROLONGED QT INTERVAL : Confirmed by: Yobany Marino MD 29-Jun-2017 08:00:53
[2017-06-29 10:56] VITALS: BP 177/98
== END 2017-06-29 11:10 | disposition home or self-care (01) ==
LOC: ER 04:17
DX: I50.9 Heart failure, unspecified (principal); R07.9 Chest pain, unspecified; M79.89 Other specified soft tissue disorders
CPT/HCPCS: 36415; 71045; 80053; 81001; 82550; 82553; 83880; 84484; 85025; 93005; 93010; 99285

== ENCOUNTER 2017-08-09 06:20 | Inpatient (IN) | payer MEDICARE, MEDICAID ==
[2017-08-09] MEDS ORDERED: NITROGLYCERIN 2% OINTMENT 1 GM PACKET TP SCH (06:45)
[2017-08-09 06:52] LABS: ABSOLUTE MONOCYTES (AUTO) 0.9 10^3/uL (0.1-1.4); ABSOLUTE NEUT (AUTO) 6.9 10^3/uL (1.7-8.2); BASOPHILS % (AUTO) 0.3 % (0-2); EOSINOPHILS % (AUTO) 0.3 % (0-6); HEMATOCRIT 32.3 % (36.0-47.0); HEMOGLOBIN 10.3 g/dL (12.0-15.5); LYMPHOCYTES % (AUTO) 11.7 % (13-45); MEAN CORPUSCULAR HEMOGLOBIN 27.6 pg (27.0-33.4); MEAN CORPUSCULAR VOLUME 87 fl (80-97); MONOCYTES % (AUTO) 10.1 % (3-13); PLATELET COUNT 296 10^3/uL (150-450); RED BLOOD COUNT 3.74 10^6/uL (3.72-5.28); RED CELL DISTRIBUTION WIDTH 17.5 % (11.5-14.0); SEGMENTED NEUTROPHILS % (AUTO) 77.6 % (42-78); TOTAL CELLS COUNTED % (AUTO) 100 %; WHITE BLOOD COUNT 8.8 10^3/uL (4.0-10.5)
--- NOTE | 2017-08-09 06:52 | ER Document Report ---
ED Respiratory Problem - General Chief Complaint: Chest Pain Stated Complaint: SHORTNESS OF BREATH Time Seen by Provider: 08/09/17 06:24 Information source: Patient Notes: 61-year-old female history CHF presents to the ER with 3 day history of worsening difficulty breathing and chest discomfort. She describes the chest discomfort as heaviness extends on both sides of the chest sometimes more so the right than the left. Patient stated her legs have been swelling. She has shortness of breath on exertion. Patient at times is inconsistent with her history on reexamination. She denies any fever or chills. Denies nausea vomiting diarrhea complains of lower leg swelling. Eyes any falls or trauma. Gets to a nonproductive cough. Denies gland swelling night sweats or hemoptysis. TRAVEL OUTSIDE OF THE [place] IN LAST 30 DAYS: No - Related Data Allergies/Adverse Reactions: pregabalin [From Lyrica] Allergy (Verified 05/18/17 17:24) Past Medical History - Social History Smoking Status: Former Smoker Family History: Reviewed & Not Pertinent, CAD, Hyperlipidemia, Hypertension - Past Medical History Cardiac Medical History: Reports: Hx Congestive Heart Failure, Hx Coronary Artery Disease, Hx Heart Attack, Hx Hypercholesterolemia, Hx Hypertension, Hx Peripheral Vascular Disease Denies: Hx Atrial Fibrillation Pulmonary Medical History: Reports: Hx Bronchitis Denies: Hx Asthma, Hx COPD, Hx Pneumonia, Hx Tuberculosis Neurological Medical History: Reports: Hx Cerebrovascular Accident - 2007. Denies: Hx Seizures Endocrine Medical History: Reports: Hx Diabetes Mellitus Type 1, Hx Diabetes Mellitus Type 2 Renal/ Medical History: Denies: Hx End Stage Renal Disease, Hx Peritoneal Dialysis GI Medical History: Reports: Hx Diverticulitis - diverticulosis. Denies: Hx Gastroesophageal Reflux Disease, Hx Hiatal Hernia Musculoskeltal Medical History: Denies Hx Arthritis Skin Medical History: Denies Hx MRSA Psychiatric Medical History: Denies: Hx Bipolar Disorder, Hx Depression Past Surgical History: Reports: Hx Cardiac Surgery - Quadruple Bypass, Hx Coronary Artery Bypass Graft - July 31 2011, Hx Tonsillectomy, Hx Vascular Surgery. Denies: Hx Appendectomy, Hx Cardiac Catheterization, Hx Section, Hx Cholecystectomy, Hx Hysterectomy, Hx Mastectomy, Hx Tubal Ligation - Immunizations Immunizations up to date: No Hx Diphtheria, Pertussis, Tetanus Vaccination: Yes Hx Pneumococcal Vaccination: 02/04/11 Review of Systems - Review of Systems Constitutional: Weight gain. denies: Chills, Fever EENT: No symptoms reported Cardiovascular: Chest pain, Dyspnea, Edema. denies: Palpitations, Heart racing Respiratory: Cough, Short of breath. denies: Hurts to breathe Gastrointestinal: No symptoms reported. denies: Nausea, Vomiting Genitourinary: No symptoms reported Female Genitourinary: No symptoms reported Musculoskeletal: No symptoms reported Skin: No symptoms reported Hematologic/Lymphatic: No symptoms reported Neurological/Psychological: No symptoms reported -: Yes All other systems reviewed and negative Physical Exam - Notes Notes: GENERAL_APPEARANCE: well_nourished, alert, cooperative VITALS: reviewed, see vital signs table. HEAD: no_swelling\tenderness on the head. EYES: conjunctiva_clear. NOSE: no_nasal_discharge. MOUTH: (-)decreased moisture. THROAT: no_throat_inflammation, no_airway_obstruction. no_lymphadenopathy NECK: supple, no_neck_tenderness, (-)thyromegaly. BACK: no_back_tenderness. CHEST_WALL: no_chest_tenderness. LUNGS: no_wheezing, bibasilar_rales, no_rhonchi, (-)accessory muscle use, good air exchange bilateral. HEART: normal_rate, normal_rhythm, normal_S1, normal_S2, (-)S3, (-)S4, no_ murmur, no_rub. ABDOMEN: soft, no_abd_tenderness, (-)guarding, (-)rebound, no_organomegaly, no _abd_masses. EXTREMITIES: good pulses in all_extremities, no_swelling\tenderness in the extremities, 3+ symmetric pedal_edema. SKIN: warm, dry, good_color, no_rash. MENTAL_STATUS: speech_clear, oriented_X_3, normal_affect, responds_ appropriately to questions. Course - Re-evaluation Re-evalutation: 08/09/17 06:50 Elderly female with a long history of congestive heart failure presents with shortness of breath and chest discomfort. She appears to be frequent visitor for similar complaints. Will do a thorough workup. The patient does have bibasilar rales. She states she has been compliant with her Lasix. Patient has no oxygen requirements at this time. 08/09/17 07:59 Laboratory 08/09/17 08/09/17 08/09/17 06:42 06:42 06:42 WBC 8.8 RBC 3.74 Hgb 10.3 L Hct 32.3 L MCV 87 MCH 27.6 MCHC 32.0 RDW 17.5 H Plt Count 296 Seg Neutrophils % 77.6 Lymphocytes % 11.7 L Monocytes % 10.1 Eosinophils % 0.3 Basophils % 0.3 Absolute Neutrophils 6.9 Absolute Lymphocytes 1.0 Absolute Monocytes 0.9 Absolute Eosinophils 0.0 Absolute Basophils 0.0 APTT Sodium 142.1 Potassium 3.7 Chloride 105 Carbon Dioxide 30 Anion Gap 7 BUN 9 Creatinine 0.67 Est GFR ( Amer) > 60 Est GFR (Non-Af Amer) > 60 Glucose 183 H Calcium 9.5 Magnesium 2.0 Total Bilirubin 1.6 H Direct Bilirubin 0.5 H Neonat Total Bilirubin Not Reportable Neonat Direct Bilirubin Not Reportable Neonat Indirect Bili Not Reportable AST 23 ALT 23 Alkaline Phosphatase 153 H Creatine Kinase 66 CK-MB (CK-2) 0.58 Troponin I 0.025 NT-Pro-B Natriuret Pep 6320 H Total Protein 8.0 Albumin 3.7 08/09/17 06:42 WBC RBC Hgb Hct MCV MCH MCHC RDW Plt Count Seg Neutrophils % Lymphocytes % Monocytes % Eosinophils % Basophils % Absolute Neutrophils Absolute Lymphocytes Absolute Monocytes Absolute Eosinophils Absolute Basophils APTT 31.7 Sodium Potassium Chloride Carbon Dioxide Anion Gap BUN Creatinine Est GFR ( Amer) Est GFR (Non-Af Amer) Glucose Calcium Magnesium Total Bilirubin Direct Bilirubin Neonat Total Bilirubin Neonat Direct Bilirubin Neonat Indirect Bili AST ALT Alkaline Phosphatase Creatine Kinase CK-MB (CK-2) Troponin I NT-Pro-B Natriuret Pep Total Protein Albumin Chest X-Ray 08/09/17 06:34 IMPRESSION: 1. Cardiomegaly with likely interstitial edema. Underlying pneumonic process not excluded. Continued follow-up recommended. 08/09/17 08:00 The patient was hypertensive. Was given her morning blood pressure medicine. He has not had any morning medication. Clinically she has crackles. Chest x- ray shows cardiomegaly with edema. BNP is elevated greater than 6000. The patient has an inch of Nitropaste. Was given 80 mg of Lasix. We will consult the hospitalist for admission for continued diuresis. 08/09/17 08:[address] Tafoya -- [place] [facility] [place] Result Diagrams: 08/09/17 06:42 08/09/17 06:42 Laboratory results interpreted by me: 08/09/17 08/09/17 08/09/17 06:42 06:42 06:42 Hgb 10.3 L Hct 32.3 L RDW 17.5 H Lymphocytes % 11.7 L Glucose 183 H Total Bilirubin 1.6 H Direct Bilirubin 0.5 H Alkaline Phosphatase 153 H NT-Pro-B Natriuret Pep 6320 H - EKG Interpretation by Me EKG shows normal: Sinus rhythm Rate: Normal Additional EKG results interpreted by me: 08/09/17 07:09 [facility] Discharge - Discharge Clinical Impression: Acute on chronic systolic CHF (congestive heart failure) Condition: Fair Disposition: ADMITTED INPATIENT Admitting Provider: [facility] Admitted: [facility] Referrals: STEPHAN TAFOYA MD [Primary Care Provider] - Follow up as needed
[2017-08-09 07:09] LABS: ALANINE AMINOTRANSFERASE 23 U/L (9-52); ALBUMIN 3.7 g/dL (3.5-5.0); ALKALINE PHOSPHATASE 153 U/L (38-126); ANION GAP 7 (5-19); ASPARTATE AMINO TRANSFERASE 23 U/L (14-36); BILIRUBIN,DIRECT 0.5 mg/dL (0.0-0.4); BILIRUBIN,TOTAL 1.6 mg/dL (0.2-1.3); BLOOD UREA NITROGEN 9 mg/dL (7-20); CALCIUM 9.5 mg/dL (8.4-10.2); CARBON DIOXIDE 30 mmol/L (22-30); CHLORIDE 105 mmol/L (98-107); CREATINE KINASE 66 U/L (30-135); GLUCOSE 183 mg/dL (75-110); POTASSIUM 3.7 mmol/L (3.6-5.0); SODIUM 142.1 mmol/L (137-145)
--- NOTE | 2017-08-09 07:10 | RADIOLOGY REPORT (SQ) ---
EXAM DESCRIPTION: CHEST SINGLE VIEW CLINICAL HISTORY: CP COMPARISON: 06/29/2017 FINDINGS: Single frontal view of the chest. Median sternotomy. Cardiomegaly. Atherosclerotic calcification tortuosity of thoracic aorta. Pulmonary vascular congestion and bilateral interstitial opacities. No large effusion or pneumothorax. Leads overlie the chest. No acute osseous abnormalities. Upper abdominal soft tissues are unremarkable. IMPRESSION: 1. Cardiomegaly with likely interstitial edema. Underlying pneumonic process not excluded. Continued follow-up recommended.
[2017-08-09 07:21] LABS: CREATINE KINASE MB 0.58 ng/mL (<4.55); TROPONIN I 0.025 ng/mL
[2017-08-09] MEDS ORDERED: FUROSEMIDE INJ/PF 100 MG/10 ML SDV IV ONE (07:51)
[2017-08-09] MEDS ORDERED: SACUBITRIL/VALSARTAN 49 MG/51 MG TABLET PO STA (07:56)
[2017-08-09] MEDS ORDERED: GLUCAGON,HUMAN RECOMB 1 MG INJ IM PRN ×2 (08:39→08:42)
[2017-08-09] MEDS ORDERED: DEXTROSE 50%-WATER 25 GM/50 ML DISP.SYRIN IV PRN ×4 (08:39→08:42)
[2017-08-09] MEDS ORDERED: DEXTROSE 40% GEL 15 GM TUBE PO PRN ×4 (08:39→08:42)
--- NOTE | 2017-08-09 09:09 | EKG REPORT ---
SEVERITY:- ABNORMAL ECG - SINUS RHYTHM LEFT ATRIAL ABNORMALITY [facility] WITH SECONDARY REPOLARIZATION ABNORMALITY BORDERLINE PROLONGED QT INTERVAL : Confirmed by: Irma Hitchcock 09-Aug-2017 09:08:24
[2017-08-09] MEDS ORDERED: LANSOPRAZOLE 30 MG TAB.RAP.DR PO ONE (09:30)
[2017-08-09] MEDS: FUROSEMIDE INJ/PF 40 MG/4 ML SDV IV SCH ×2 (09:45→21:52)
[2017-08-09] MEDS: ENOXAPARIN SODIUM INJ 40 MG/0.4 ML DISP.SYRIN SUBCUT SCH (09:46)
[2017-08-09 10:30] LABS: HEMATOCRIT 31.7 % (36.0-47.0); HEMOGLOBIN 10.2 g/dL (12.0-15.5); MEAN CORPUSCULAR HEMOGLOBIN 27.6 pg (27.0-33.4); MEAN CORPUSCULAR HGB CONC 32.2 g/dL (32.0-36.0); MEAN CORPUSCULAR VOLUME 86 fl (80-97); PLATELET COUNT 304 10^3/uL (150-450); RED BLOOD COUNT 3.69 10^6/uL (3.72-5.28); RED CELL DISTRIBUTION WIDTH 17.5 % (11.5-14.0); WHITE BLOOD COUNT 9.3 10^3/uL (4.0-10.5)
[2017-08-09 10:38] LABS: INTERNATIONAL RATION (INR) 1.14; PROTHROMBIN TIME 15.4 SEC (11.4-15.4)
[2017-08-09 10:39] LABS: PARTIAL THROMBOPLASTIN TIME 32.8 SEC (23.5-35.8)
[2017-08-09] MEDS: NITROGLYCERIN 2% OINTMENT 1 GM PACKET TP SCH ×2 (14:49→21:55)
[2017-08-09] MEDS: OXYCODONE-ACETAMINOPHEN 5-325 MG TABLET PO PRN ×2 (14:51→21:48)
[2017-08-09] MEDS ORDERED: (PENDING PHARMACY ID) (Lisinopril [Prinivil 30 Mg Tablet] 30 MG) PO SCH (18:00)
[2017-08-09] MEDS: INSULIN LISPRO 100 UNIT/ML 3 ML VIAL SUBCUT PRN (18:09)
[2017-08-09] MEDS: SACUBITRIL/VALSARTAN 97 MG/103 MG TABLET PO SCH (18:17)
--- NOTE | 2017-08-09 20:24 | PDOC H&P ---
History of Present Illness Admission Date/PCP: 08/09/17 09:28 [facility] Patient complains of: Shortness of breath, chest pain History of Present Illness: JAVIER BURGER is a 61 year old female known to my practice presented to the ED with listed complaints. Poor historian but reported onset of symptoms about 3-4 days prior to presentation. She was unclear regarding chest pain or associated palpitation. She reported both at rest and exertional difficulty with breathing and described chest pain more as discomfort moving across her chest. She reported associated cough which is mostly nonproductive. Patient reported lower abdominal pain but denied nausea or vomiting. No constipation or diarrhea. Specifically requested for IV pain medication during my evaluation. She denied dysuria or flank pain. No hematuria. Her initial evaluation in the ED was remarkable for tachypnea, diffuse rales on examination, elevated blood pressure , elevated NT-Pro BNP level at over 6000, chest X ray suggestive of vascular congestion and cardiomegaly. In view of her presentation and clinical findings suggestive of acute decompensation of chronic CHF she was advised admission for further evaluation and management. Morbidities include chronic combined Congestive Heart Failure, Coronary Artery Disease, Hypertension, Hyperlipidemia , CAD, Old Myocardial infarction, Peripheral Vascular Disease, Diabetes Mellitus Type 2, Diabetic foot ulcer with chronic ulcer on left foot heel region , and chronic pain syndrome with episodes of overdose related respiratory impairment. Past Medical History Cardiac Medical History: Reports: Congestive Heart Failure, Coronary Artery Disease, Myocardial Infarction, Hyperlipidema, Hypertension, Peripheral Vascular Disease Denies: Atrial Fibrillation Pulmonary Medical History: Reports: Bronchitis Denies: Asthma, Chronic Obstructive Pulmonary Disease (COPD), Pneumonia, Tuberculosis Neurological Medical History: Denies: Seizures Endocrine Medical History: Reports: Diabetes Mellitus Type 1, Diabetes Mellitus Type 2 Renal/ Medical History: Denies: End Stage Renal Disease GI Medical History: Reports: Diverticulitis - diverticulosis Denies: Gastroesophageal Reflux Disease, Hiatal Hernia Musculoskeltal Medical History: Denies: Arthritis Psychiatric Medical History: Denies: Bipolar Disorder, Depression Hematology: Denies: Anemia, Hemophilia, Sickle Cell Disease Past Surgical History Past Surgical History: Reports: Coronary Artery Bypass Graft - July 31 2011, Tonsillectomy, Vascular Surgery Denies: Amputation, Appendectomy, Cardiac Catheterization, Section, Cholecystectomy, Hysterectomy, Mastectomy, Tubal Ligation Social History Smoking Status: Former Smoker Frequency of Alcohol Use: None Hx Recreational Drug Use: No Drugs: None Hx Prescription Drug Abuse: No - Advance Directive Resuscitation Status: Full Code Family History Family History: Reviewed & Not Pertinent, CAD, Hyperlipidemia, Hypertension Parental Family History Reviewed: Yes Children Family History Reviewed: Yes Sibling(s) Family History Reviewed.: Yes Medication/Allergy Home Medications: Clopidogrel Bisulfate [Plavix 75 mg Tablet] 75 mg PO DAILY 06/19/17 Furosemide [Lasix 40 mg Tablet] 40 mg PO DAILY 06/19/17 Insulin Lispro [Humalog Kwikpen U-100] 0 unit SQ .SLIDING SCALE #5 insuln.pen Amlodipine Besylate [Norvasc 10 mg Tablet] 10 mg PO DAILY 08/09/17 Aspirin [Aspirin EC] 81 mg PO DAILY 08/09/17 Insulin Detemir [Levemir Flextouch] 50 unit SQ BID 08/09/17 Oxycodone HCl 5 mg PO Q6HP PRN 08/09/17 Pravastatin Sodium [Pravachol] 20 mg PO QHS 08/09/17 Sacubitril/Valsartan [Entresto 97 mg-103 mg Tablet] 1 tab PO BID 08/09/17 Allergies/Adverse Reactions: pregabalin [From Lyrica] Allergy (Verified 05/18/17 17:24) Review of Systems Constitutional: ABSENT: chills, fever(s), headache(s), weight gain, weight loss Eyes: PRESENT: visual disturbances Ears: ABSENT: hearing changes Nose, Mouth, and Throat: ABSENT: as per HPI, headache(s), mouth pain, sore throat, vertigo, other Cardiovascular: PRESENT: chest pain - more of discomfort, edema - bilateral lower extremities Respiratory: PRESENT: cough - unproductive Gastrointestinal: PRESENT: abdominal pain - very nonspecific. ABSENT: as per HPI, bloating, coffee ground emesis, constipation, diarrhea, dysphagia, heartburn, hematemesis, hematochezia, melena, nausea, vomiting, other Genitourinary: PRESENT: other - functioanl incontinence. ABSENT: dysuria, hematuria Musculoskeletal: PRESENT: joint swelling - related to her leg swelling Integumentary: PRESENT: wounds - chronic kleft fot diabetic ulcer. ABSENT: as per HPI, diaphoresis, erythema, lesions, pruritus, rash, other Neurological: ABSENT: abnormal gait, abnormal speech, confusion, dizziness, focal weakness, syncope Psychiatric: ABSENT: anxiety, depression, homidical ideation, suicidal ideation Endocrine: ABSENT: cold intolerance, heat intolerance, polydipsia, polyuria Hematologic/Lymphatic: ABSENT: easy bleeding, easy bruising, lymphadenopathy Physical Exam Vital Signs: Temp Pulse Resp BP Pulse Ox 99.3 F 93 20 174/88 H 92 08/09/17 15:43 08/09/17 15:43 08/09/17 15:43 08/09/17 15:43 08/09/17 15:43 Intake & Output 08/08/17 08/09/17 08/10/17 06:59 06:59 06:59 Intake Total 330 Output Total 1300 Balance -970 General appearance: PRESENT: mild distress - related to reported shortness of breath, obese Head exam: PRESENT: atraumatic, normocephalic Eye exam: PRESENT: conjunctiva pink, EOMI, PERRLA. ABSENT: scleral icterus Mouth exam: PRESENT: moist Teeth exam: PRESENT: poor dentation Neck exam: PRESENT: full ROM. ABSENT: carotid bruit, JVD, lymphadenopathy, thyromegaly Respiratory exam: PRESENT: decreased breath sounds, rales - lower lung rangel Cardiovascular exam: PRESENT: RRR. ABSENT: diastolic murmur, rubs, systolic murmur Pulses: PRESENT: normal carotid pulses, +1 pedal pulses bilateral Vascular exam: PRESENT: normal capillary refill. ABSENT: pallor GI/Abdominal exam: PRESENT: normal bowel sounds, soft. ABSENT: distended, guarding, mass, organolmegaly, rebound, tenderness Rectal exam: PRESENT: deferred Gentrourinary exam: PRESENT: indwelling catheter Extremities exam: PRESENT: pedal edema - 3+ bilateral Musculoskeletal exam: PRESENT: deformity Neurological exam: PRESENT: alert, awake, oriented to person, oriented to place , oriented to time, oriented to situation, CN II-XII grossly intact. ABSENT: motor sensory deficit Psychiatric exam: PRESENT: appropriate affect, normal mood. ABSENT: homicidal ideation, suicidal ideation Skin exam: PRESENT: dry, intact, warm, other - non healing left hindfoot diabetic ulcer. ABSENT: cyanosis, rash Results Laboratory Results: 08/09/17 10:15 08/09/17 10:15 08/09/17 08/09/17 10:15 10:15 WBC 9.3 RBC 3.69 L Hgb 10.2 L Hct 31.7 L MCV 86 MCH 27.6 MCHC 32.2 RDW 17.5 H Plt Count 304 Creatinine 0.65 Est GFR ( Amer) > 60 Est GFR (Non-Af Amer) > 60 Impressions: Chest X-Ray 08/09/17 06:34 IMPRESSION: 1. Cardiomegaly with likely interstitial edema. Underlying pneumonic process not excluded. Continued follow-up recommended. Assessment & Plan - Diagnosis (1) Acute on chronic systolic CHF (congestive heart failure) Is this a current diagnosis for this admission?: Yes Plan: See attending physician admitting orders. (2) Chronic combined systolic and diastolic CHF (congestive heart failure) Is this a current diagnosis for this admission?: Yes Plan: See attending physician admitting orders. (3) Diabetes mellitus type 2 in obese Is this a current diagnosis for this admission?: Yes Plan: See attending physician admitting orders. 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 2 diabetes mellitus Qualifiers: Diabetic foot ulcer location: heel Non-pressure ulcer stage: with muscle involvement without evidence of necrosis Qualified Code(s): E11.621 - Type 2 diabetes mellitus with foot ulcer; L97.425 - Non-pressure chronic ulcer of left heel and midfoot with muscle involvement without evidence of necrosis; L97.425 - Non-pressure chronic ulcer of left heel and midfoot with muscle involvement without evidence of necrosis; L97.425 - Non-pressure chronic ulcer of left heel and midfoot with muscle involvement without evidence of necrosis; L97.425 - Non- pressure chronic ulcer of left heel and midfoot with muscle involvement without evidence of necrosis Is this a current diagnosis for this admission?: Yes Plan: See attending physician admitting orders. (5) CAD (coronary artery disease) Qualifiers: Coronary Disease-Associated Artery/Lesion type: unspecified vessel or lesion type [place] vs. transplanted heart: [place] heart Associated angina: without angina Qualified Code(s): I25.10 - Atherosclerotic heart disease of [place] coronary artery without angina pectoris Plan: See attending physician admitting orders. (6) HLD (hyperlipidemia) Qualifiers: Hyperlipidemia type: pure hypercholesterolemia Qualified Code(s): E78.00 - Pure hypercholesterolemia, unspecified Is this a current diagnosis for this admission?: Yes Plan: See attending physician admitting orders. (7) HTN (hypertension) Qualifiers: Hypertension type: essential hypertension Qualified Code(s): I10 - Essential (primary) hypertension Is this a current diagnosis for this admission?: Yes Plan: See attending physician admitting orders. (8) Hx of stroke without residual deficits Is this a current diagnosis for this admission?: Yes Plan: See attending physician admitting orders. (9) S/P CABG (coronary artery bypass graft) Is this a current diagnosis for this admission?: Yes Plan: See attending physician admitting orders. - Time Time Spent: 50 to 70 Minutes Medications reviewed and adjusted accordingly: Yes Anticipated discharge: Home with Homehealth Within: Other - Inpatient Certification Based on my medical assessment, after consideration of the patient's comorbidities, presenting symptoms, or acuity I expect that the services needed warrant INPATIENT care.: Yes I certify that my determination is in accordance with my understanding of Medicare's requirements for reasonable and necessary INPATIENT services [42 CFR 412.3e].: Yes Medical Necessity: Need Close Monitoring Due to Risk of Patient Decompensation, Need For Continuous Telemetry Monitoring, Need for Pain Control, Risk of Complication if Not Cared For in Hospital Post Hospital Care: D/C Export Administrator Documentation - Plan Summary Plan Summary: See attending physician admitting orders.
[2017-08-09] MEDS: OXYCODONE HCL IR 5 MG TABLET PO PRN (21:51)
[2017-08-10] MEDS: NITROGLYCERIN 2% OINTMENT 1 GM PACKET TP SCH ×3 (00:17→13:05)
[2017-08-10] MEDS ORDERED: ONDANSETRON HCL INJ/PF 4 MG/2 ML SDV IV PRN (01:02)
[2017-08-10] MEDS ORDERED: ONDANSETRON HCL INJ/PF 4 MG/2 ML SDV IV ONE (01:15)
[2017-08-10] MEDS: OXYCODONE-ACETAMINOPHEN 5-325 MG TABLET PO PRN ×5 (02:36→22:10)
[2017-08-10] MEDS: LANSOPRAZOLE 30 MG TAB.RAP.DR PO SCH (06:17)
[2017-08-10 06:18] LABS: ABSOLUTE LYMPHOCYTES (AUTO) 1.4 10^3/uL (0.5-4.7); ABSOLUTE MONOCYTES (AUTO) 0.7 10^3/uL (0.1-1.4); ABSOLUTE NEUT (AUTO) 6.2 10^3/uL (1.7-8.2); BASOPHILS % (AUTO) 0.6 % (0-2); EOSINOPHILS % (AUTO) 0.3 % (0-6); HEMATOCRIT 30.7 % (36.0-47.0); LYMPHOCYTES % (AUTO) 16.6 % (13-45); MEAN CORPUSCULAR HEMOGLOBIN 27.7 pg (27.0-33.4); MEAN CORPUSCULAR HGB CONC 32.7 g/dL (32.0-36.0); MEAN CORPUSCULAR VOLUME 85 fl (80-97); MONOCYTES % (AUTO) 8.5 % (3-13); PLATELET COUNT 272 10^3/uL (150-450); RED BLOOD COUNT 3.63 10^6/uL (3.72-5.28); RED CELL DISTRIBUTION WIDTH 17.7 % (11.5-14.0); TOTAL CELLS COUNTED % (AUTO) 100 %; WHITE BLOOD COUNT 8.3 10^3/uL (4.0-10.5)
[2017-08-10 06:41] LABS: ALANINE AMINOTRANSFERASE 20 U/L (9-52); ALBUMIN 3.4 g/dL (3.5-5.0); ALKALINE PHOSPHATASE 157 U/L (38-126); ANION GAP 10 (5-19); ASPARTATE AMINO TRANSFERASE 14 U/L (14-36); BILIRUBIN,DIRECT 0.7 mg/dL (0.0-0.4); BILIRUBIN,TOTAL 1.8 mg/dL (0.2-1.3); BLOOD UREA NITROGEN 10 mg/dL (7-20); CALCIUM 9.5 mg/dL (8.4-10.2); CARBON DIOXIDE 27 mmol/L (22-30); CHLORIDE 104 mmol/L (98-107); GLUCOSE 163 mg/dL (75-110); POTASSIUM 3.9 mmol/L (3.6-5.0); SODIUM 141.3 mmol/L (137-145); TOTAL PROTEIN 7.4 g/dL (6.3-8.2)
[2017-08-10] MEDS ORDERED: COLLAGENASE CLOSTRIDIUM HIST. OINT 30 GM TP SCH (10:00)
[2017-08-10] MEDS ORDERED: FUROSEMIDE 40 MG TABLET PO SCH (10:00)
[2017-08-10] MEDS: GENTAMICIN SULFATE 0.1% CREAM 15 GM TP SCH (10:28)
[2017-08-10] MEDS: SACUBITRIL/VALSARTAN 97 MG/103 MG TABLET PO SCH ×2 (10:29→17:21)
[2017-08-10] MEDS: AMLODIPINE BESYLATE 10 MG TABLET PO SCH (10:29)
[2017-08-10] MEDS: CLOPIDOGREL BISULFATE 75 MG TABLET PO SCH (10:29)
[2017-08-10] MEDS: FUROSEMIDE INJ/PF 40 MG/4 ML SDV IV SCH ×2 (10:30→22:10)
[2017-08-10] MEDS: ASPIRIN 81 MG TABLET, ENT COATED PO SCH (10:30)
[2017-08-10] MEDS: ENOXAPARIN SODIUM INJ 40 MG/0.4 ML DISP.SYRIN SUBCUT SCH (10:31)
--- NOTE | 2017-08-10 15:33 | PDOC PROGRESS REPORT ---
Subjective Progress Note for:: 08/10/17 Subjective:: No chest pain. Breathing is better. Blood pressure remain elevated. No abdominal pain, nausea or vomiting. No fever or chills. Reason For Visit: ACUTE ON CHRONIC CHF Physical Exam Vital Signs: Temp Pulse Resp BP Pulse Ox 98.2 F 84 18 182/87 H 94 08/10/17 12:00 08/10/17 12:00 08/10/17 12:00 08/10/17 12:00 08/10/17 12:00 Intake & Output 08/09/17 08/10/17 08/11/17 06:59 06:59 06:59 Intake Total 795 Output Total 2300 Balance -1505 General appearance: PRESENT: no acute distress, obese Head exam: PRESENT: atraumatic, normocephalic Eye exam: PRESENT: conjunctiva pink, EOMI, PERRLA. ABSENT: scleral icterus Mouth exam: PRESENT: moist Teeth exam: PRESENT: poor dentation Respiratory exam: PRESENT: clear to auscultation jerrica, decreased breath sounds - lung bases Cardiovascular exam: PRESENT: RRR. ABSENT: diastolic murmur, rubs, systolic murmur Vascular exam: PRESENT: normal capillary refill. ABSENT: pallor GI/Abdominal exam: PRESENT: normal bowel sounds, soft. ABSENT: distended, guarding, mass, organolmegaly, rebound, tenderness Extremities exam: PRESENT: pedal edema - comparatively improving Musculoskeletal exam: PRESENT: deformity - related to multiple joints arthritis Neurological exam: PRESENT: alert, awake, oriented to person, oriented to place , oriented to time, oriented to situation, CN II-XII grossly intact. ABSENT: motor sensory deficit Psychiatric exam: PRESENT: appropriate affect, normal mood. ABSENT: homicidal ideation, suicidal ideation Skin exam: PRESENT: dry, warm, other - left footheel region chronic non healing diabetic ulcer. Results Laboratory Results: 08/10/17 05:34 08/10/17 05:34 08/10/17 08/10/17 05:34 05:34 WBC 8.3 RBC 3.63 L Hgb 10.0 L Hct 30.7 L MCV 85 MCH 27.7 MCHC 32.7 RDW 17.7 H Plt Count 272 Seg Neutrophils % 74.0 Lymphocytes % 16.6 Monocytes % 8.5 Eosinophils % 0.3 Basophils % 0.6 Absolute Neutrophils 6.2 Absolute Lymphocytes 1.4 Absolute Monocytes 0.7 Absolute Eosinophils 0.0 Absolute Basophils 0.0 Sodium 141.3 Potassium 3.9 Chloride 104 Carbon Dioxide 27 Anion Gap 10 BUN 10 Creatinine 0.61 Est GFR ( Amer) > 60 Est GFR (Non-Af Amer) > 60 Glucose 163 H Calcium 9.5 Total Bilirubin 1.8 H AST 14 ALT 20 Alkaline Phosphatase 157 H Total Protein 7.4 Albumin 3.4 L Impressions: Chest X-Ray 08/09/17 06:34 IMPRESSION: 1. Cardiomegaly with likely interstitial edema. Underlying pneumonic process not excluded. Continued follow-up recommended. Assessment & Plan - Diagnosis (1) Acute on chronic systolic CHF (congestive heart failure) Is this a current diagnosis for this admission?: Yes Plan: Start on Hydralazine 25 mg po tid and Isorsorbide dinitrate 20 mg po tid. (2) Chronic combined systolic and diastolic CHF (congestive heart failure) Is this a current diagnosis for this admission?: Yes (3) Diabetes mellitus type 2 in obese Is this a current diagnosis for this admission?: Yes 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 2 diabetes mellitus Qualifiers: Diabetic foot ulcer location: heel Non-pressure ulcer stage: with muscle involvement without evidence of necrosis Qualified Code(s): E11.621 - Type 2 diabetes mellitus with foot ulcer; L97.425 - Non-pressure chronic ulcer of left heel and midfoot with muscle involvement without evidence of necrosis; L97.425 - Non-pressure chronic ulcer of left heel and midfoot with muscle involvement without evidence of necrosis; L97.425 - Non-pressure chronic ulcer of left heel and midfoot with muscle involvement without evidence of necrosis; L97.425 - Non- pressure chronic ulcer of left heel and midfoot with muscle involvement without evidence of necrosis Is this a current diagnosis for this admission?: Yes (5) CAD (coronary artery disease) Qualifiers: Coronary Disease-Associated Artery/Lesion type: unspecified vessel or lesion type [place] vs. transplanted heart: [place] heart Associated angina: without angina Qualified Code(s): I25.10 - Atherosclerotic heart disease of [place] coronary artery without angina pectoris Is this a current diagnosis for this admission?: Yes (6) HLD (hyperlipidemia) Qualifiers: Hyperlipidemia type: pure hypercholesterolemia Qualified Code(s): E78.00 - Pure hypercholesterolemia, unspecified Is this a current diagnosis for this admission?: Yes (7) HTN (hypertension) Qualifiers: Hypertension type: essential hypertension Qualified Code(s): I10 - Essential (primary) hypertension Is this a current diagnosis for this admission?: Yes (8) Hx of stroke without residual deficits Is this a current diagnosis for this admission?: Yes (9) S/P CABG (coronary artery bypass graft) Is this a current diagnosis for this admission?: Yes - Time Time Spent with patient: 25-34 minutes Medications reviewed and adjusted accordingly: Yes Anticipated discharge: Home with Homehealth Within: Other - Inpatient Certification Based on my medical assessment, after consideration of the patient's comorbidities, presenting symptoms, or acuity I expect that the services needed warrant INPATIENT care.: Yes I certify that my determination is in accordance with my understanding of Medicare's requirements for reasonable and necessary INPATIENT services [42 CFR 412.3e].: Yes Medical Necessity: Need Close Monitoring Due to Risk of Patient Decompensation, Need For Continuous Telemetry Monitoring, Risk of Complication if Not Cared For in Hospital Post Hospital Care: D/C Physical Therapy Attendant Documentation - Plan Summary Plan Summary: See attending physician orders. Start on Hydralazine 25 mg po tid and Isorsorbide dinitrate 20 mg po tid.
[2017-08-10] MEDS ORDERED: HYDRALAZINE HCL 25 MG TABLET PO ONE (16:15)
[2017-08-10] MEDS ORDERED: ISOSORBIDE DINITRATE 20 MG TABLET PO ONE (17:00)
[2017-08-10] MEDS: HYDRALAZINE HCL 25 MG TABLET PO SCH (22:10)
[2017-08-10] MEDS: ATORVASTATIN CALCIUM 10 MG TABLET PO SCH (22:10)
[2017-08-11] MEDS: OXYCODONE-ACETAMINOPHEN 5-325 MG TABLET PO PRN ×3 (05:53→16:55)
[2017-08-11] MEDS: HYDRALAZINE HCL 25 MG TABLET PO SCH ×3 (05:54→22:34)
[2017-08-11] MEDS: LANSOPRAZOLE 30 MG TAB.RAP.DR PO SCH (05:54)
[2017-08-11] MEDS: ISOSORBIDE DINITRATE 20 MG TABLET PO SCH ×3 (05:54→22:34)
[2017-08-11] MEDS: AMLODIPINE BESYLATE 10 MG TABLET PO SCH (09:36)
[2017-08-11] MEDS: ENOXAPARIN SODIUM INJ 40 MG/0.4 ML DISP.SYRIN SUBCUT SCH (09:36)
[2017-08-11] MEDS: ASPIRIN 81 MG TABLET, ENT COATED PO SCH (09:36)
[2017-08-11] MEDS: CLOPIDOGREL BISULFATE 75 MG TABLET PO SCH (09:36)
[2017-08-11] MEDS: SACUBITRIL/VALSARTAN 97 MG/103 MG TABLET PO SCH ×2 (09:37→17:35)
[2017-08-11] MEDS: GENTAMICIN SULFATE 0.1% CREAM 15 GM TP SCH (09:37)
[2017-08-11] MEDS: FUROSEMIDE INJ/PF 40 MG/4 ML SDV IV SCH ×2 (09:37→22:33)
[2017-08-11] MEDS: INSULIN LISPRO 100 UNIT/ML 3 ML VIAL SUBCUT PRN (12:12)
--- NOTE | 2017-08-11 12:57 | PDOC PROGRESS REPORT ---
Subjective Progress Note for:: 08/11/17 Subjective:: No chest pain or difficulty with breathing. No abdominal pain, nausea or vomiting. No fever or chills. Leg swelling improving but continue to report associated pain and increase or change of her pain medication. Reason For Visit: ACUTE ON CHRONIC CHF Physical Exam Vital Signs: Temp Pulse Resp BP Pulse Ox 99.2 F 71 18 123/63 95 08/11/17 12:16 08/11/17 12:16 08/11/17 12:16 08/11/17 12:16 08/11/17 12:16 Intake & Output 08/10/17 08/11/17 08/12/17 06:59 06:59 06:59 Intake Total 795 380 Output Total 2300 725 Balance -1505 -345 Weight 106.4 kg 106.4 kg Physical Exam: General appearance: PRESENT: no acute distress, obese Head exam: PRESENT: atraumatic, normocephalic Eye exam: PRESENT: conjunctiva pink, EOMI, PERRLA. ABSENT: scleral icterus Mouth exam: PRESENT: moist Teeth exam: PRESENT: poor dentition Respiratory exam: PRESENT: clear to auscultation jerrica, decreased breath sounds - lung bases Cardiovascular exam: PRESENT: RRR. ABSENT: diastolic murmur, rubs, systolic murmur GI/Abdominal exam: PRESENT: normal bowel sounds, soft. 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 ABSENT: motor sensory deficit Psychiatric exam: PRESENT: appropriate affect, normal mood. ABSENT: homicidal ideation, suicidal ideation Skin exam: PRESENT: dry, warm, other - left footheel region chronic non healing diabetic ulcer. Results Laboratory Results: 08/10/17 05:34 08/10/17 05:34 Impressions: Chest X-Ray 08/09/17 06:34 IMPRESSION: 1. Cardiomegaly with likely interstitial edema. Underlying pneumonic process not excluded. Continued follow-up recommended. Assessment & Plan - Diagnosis (1) Acute on chronic systolic CHF (congestive heart failure) Is this a current diagnosis for this admission?: Yes (2) Chronic combined systolic and diastolic CHF (congestive heart failure) Is this a current diagnosis for this admission?: Yes (3) Diabetes mellitus type 2 in obese Is this a current diagnosis for this admission?: Yes 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 2 diabetes mellitus Qualifiers: Diabetic foot ulcer location: heel Non-pressure ulcer stage: with muscle involvement without evidence of necrosis Qualified Code(s): E11.621 - Type 2 diabetes mellitus with foot ulcer; L97.425 - Non-pressure chronic ulcer of left heel and midfoot with muscle involvement without evidence of necrosis; L97.425 - Non-pressure chronic ulcer of left heel and midfoot with muscle involvement without evidence of necrosis; L97.425 - Non-pressure chronic ulcer of left heel and midfoot with muscle involvement without evidence of necrosis; L97.425 - Non- pressure chronic ulcer of left heel and midfoot with muscle involvement without evidence of necrosis Is this a current diagnosis for this admission?: Yes (5) CAD (coronary artery disease) Qualifiers: Coronary Disease-Associated Artery/Lesion type: unspecified vessel or lesion type [place] vs. transplanted heart: [place] heart Associated angina: without angina Qualified Code(s): I25.10 - Atherosclerotic heart disease of [place] coronary artery without angina pectoris Is this a current diagnosis for this admission?: Yes (6) HLD (hyperlipidemia) Qualifiers: Hyperlipidemia type: pure hypercholesterolemia Qualified Code(s): E78.00 - Pure hypercholesterolemia, unspecified Is this a current diagnosis for this admission?: Yes (7) HTN (hypertension) Qualifiers: Hypertension type: essential hypertension Qualified Code(s): I10 - Essential (primary) hypertension Is this a current diagnosis for this admission?: Yes (8) Hx of stroke without residual deficits Is this a current diagnosis for this admission?: Yes (9) S/P CABG (coronary artery bypass graft) Is this a current diagnosis for this admission?: Yes - Time Time Spent with patient: 25-34 minutes Medications reviewed and adjusted accordingly: Yes Anticipated discharge: Home with Homehealth Within: Other - Inpatient Certification Based on my medical assessment, after consideration of the patient's comorbidities, presenting symptoms, or acuity I expect that the services needed warrant INPATIENT care.: Yes I certify that my determination is in accordance with my understanding of Medicare's requirements for reasonable and necessary INPATIENT services [42 CFR 412.3e].: Yes Medical Necessity: Need Close Monitoring Due to Risk of Patient Decompensation, Need For Continuous Telemetry Monitoring, Risk of Complication if Not Cared For in Hospital Post Hospital Care: D/C Acid Wash Operator 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 See attending physician orders. Obtain CBC with diff and CMP in AM
[2017-08-11] MEDS ORDERED: NITROGLYCERIN 5 MG (0.2 MG/HR) PATCH.TD24 TD ONE (16:30)
[2017-08-11 16:51] LABS: TROPONIN I < 0.012 ng/mL
--- NOTE | 2017-08-11 19:01 | EKG REPORT ---
SEVERITY:- ABNORMAL ECG - SINUS RHYTHM PROBABLE LEFT ATRIAL ABNORMALITY LVH WITH SECONDARY REPOLARIZATION ABNORMALITY : Confirmed by: Irma Hitchcock 11-Aug-2017 19:00:39
[2017-08-11] MEDS: CALCIUM CARBONATE 500 MG TAB.CHEW PO PRN (20:02)
[2017-08-11] MEDS: OXYCODONE HCL IR 5 MG TABLET PO PRN (22:33)
[2017-08-11] MEDS: ATORVASTATIN CALCIUM 10 MG TABLET PO SCH (22:34)
[2017-08-12] MEDS: OXYCODONE-ACETAMINOPHEN 5-325 MG TABLET PO PRN ×4 (02:21→17:52)
[2017-08-12] MEDS: OXYCODONE HCL IR 5 MG TABLET PO PRN ×2 (05:43→22:38)
[2017-08-12] MEDS: ISOSORBIDE DINITRATE 20 MG TABLET PO SCH ×3 (05:44→22:38)
[2017-08-12] MEDS: HYDRALAZINE HCL 25 MG TABLET PO SCH ×3 (05:44→22:38)
[2017-08-12] MEDS: LANSOPRAZOLE 30 MG TAB.RAP.DR PO SCH (05:44)
[2017-08-12 06:41] LABS: ABSOLUTE BASOPHILS # (AUTO) 0.1 10^3/uL (0.0-0.2); ABSOLUTE EOSINOPHILS # (AUTO) 0.2 10^3/uL (0.0-0.6); ABSOLUTE LYMPHOCYTES (AUTO) 2.3 10^3/uL (0.5-4.7); ABSOLUTE MONOCYTES (AUTO) 0.7 10^3/uL (0.1-1.4); ABSOLUTE NEUT (AUTO) 4.1 10^3/uL (1.7-8.2); BASOPHILS % (AUTO) 1.1 % (0-2); EOSINOPHILS % (AUTO) 3.3 % (0-6); HEMATOCRIT 29.1 % (36.0-47.0); HEMOGLOBIN 9.4 g/dL (12.0-15.5); LYMPHOCYTES % (AUTO) 30.3 % (13-45); MEAN CORPUSCULAR HEMOGLOBIN 27.7 pg (27.0-33.4); MEAN CORPUSCULAR HGB CONC 32.2 g/dL (32.0-36.0); MEAN CORPUSCULAR VOLUME 86 fl (80-97); MONOCYTES % (AUTO) 9.8 % (3-13); PLATELET COUNT 272 10^3/uL (150-450); RED BLOOD COUNT 3.38 10^6/uL (3.72-5.28); RED CELL DISTRIBUTION WIDTH 17.5 % (11.5-14.0); SEGMENTED NEUTROPHILS % (AUTO) 55.5 % (42-78); TOTAL CELLS COUNTED % (AUTO) 100 %; WHITE BLOOD COUNT 7.5 10^3/uL (4.0-10.5)
[2017-08-12 06:54] LABS: ALANINE AMINOTRANSFERASE 19 U/L (9-52); ALBUMIN 2.8 g/dL (3.5-5.0); ALKALINE PHOSPHATASE 118 U/L (38-126); ASPARTATE AMINO TRANSFERASE 10 U/L (14-36); BILIRUBIN,DIRECT 0.5 mg/dL (0.0-0.4); BILIRUBIN,TOTAL 0.7 mg/dL (0.2-1.3); BLOOD UREA NITROGEN 15 mg/dL (7-20); CALCIUM 8.8 mg/dL (8.4-10.2); GLUCOSE 133 mg/dL (75-110); TOTAL PROTEIN 6.5 g/dL (6.3-8.2)
[2017-08-12 07:22] LABS: ANION GAP 7 (5-19); CARBON DIOXIDE 31 mmol/L (22-30); CHLORIDE 107 mmol/L (98-107); POTASSIUM 3.8 mmol/L (3.6-5.0); SODIUM 145.3 mmol/L (137-145)
[2017-08-12] MEDS: CLOPIDOGREL BISULFATE 75 MG TABLET PO SCH (10:09)
[2017-08-12] MEDS: ENOXAPARIN SODIUM INJ 40 MG/0.4 ML DISP.SYRIN SUBCUT SCH (10:09)
[2017-08-12] MEDS: SACUBITRIL/VALSARTAN 97 MG/103 MG TABLET PO SCH ×2 (10:09→17:49)
[2017-08-12] MEDS: ASPIRIN 81 MG TABLET, ENT COATED PO SCH (10:09)
[2017-08-12] MEDS: FUROSEMIDE INJ/PF 40 MG/4 ML SDV IV SCH ×2 (10:09→22:38)
[2017-08-12] MEDS: AMLODIPINE BESYLATE 10 MG TABLET PO SCH (10:09)
[2017-08-12] MEDS: GENTAMICIN SULFATE 0.1% CREAM 15 GM TP SCH (10:10)
--- NOTE | 2017-08-12 10:20 | PDOC PROGRESS REPORT ---
Subjective Progress Note for:: 08/12/17 Subjective:: Patient reported abdominal pain with attempted bowel movement. No chest pain or difficulty with breathing. No nausea or vomiting. No fever or chills. Reason For Visit: ACUTE ON CHRONIC CHF Physical Exam Vital Signs: Temp Pulse Resp BP Pulse Ox 97.9 F 76 18 139/66 H 91 L 08/12/17 07:31 08/12/17 07:31 08/12/17 07:31 08/12/17 07:31 08/12/17 07:31 Intake & Output 08/11/17 08/12/17 08/13/17 06:59 06:59 06:59 Intake Total 380 1296 Output Total 725 1300 Balance -345 -4 Weight 106.4 kg 104.8 kg Physical Exam: General appearance: PRESENT: no acute distress, obese Head exam: PRESENT: atraumatic, normocephalic Eye exam: PRESENT: conjunctiva pink, EOMI, PERRLA. ABSENT: scleral icterus Mouth exam: PRESENT: moist Teeth exam: PRESENT: poor dentition Respiratory exam: PRESENT: clear to auscultation jerrica, decreased breath sounds - lung bases Cardiovascular exam: PRESENT: RRR. ABSENT: diastolic murmur, rubs, systolic murmur GI/Abdominal exam: PRESENT: normal bowel sounds, soft. 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 ABSENT: motor sensory deficit Psychiatric exam: PRESENT: appropriate affect, normal mood. ABSENT: homicidal ideation, suicidal ideation Skin exam: PRESENT: dry, warm, other - left foot heel region chronic non healing diabetic ulcer. Results Laboratory Results: 08/12/17 06:29 08/12/17 06:29 08/12/17 08/12/17 06:29 06:29 WBC 7.5 RBC 3.38 L Hgb 9.4 L Hct 29.1 L MCV 86 MCH 27.7 MCHC 32.2 RDW 17.5 H Plt Count 272 Seg Neutrophils % 55.5 Lymphocytes % 30.3 Monocytes % 9.8 Eosinophils % 3.3 Basophils % 1.1 Absolute Neutrophils 4.1 Absolute Lymphocytes 2.3 Absolute Monocytes 0.7 Absolute Eosinophils 0.2 Absolute Basophils 0.1 Sodium 145.3 H Potassium 3.8 Chloride 107 Carbon Dioxide 31 H Anion Gap 7 BUN 15 Creatinine 0.83 Est GFR ( Amer) > 60 Est GFR (Non-Af Amer) > 60 Glucose 133 H Calcium 8.8 Total Bilirubin 0.7 AST 10 L ALT 19 Alkaline Phosphatase 118 Total Protein 6.5 Albumin 2.8 L 08/11/17 08/11/17 16:10 16:10 Creatine Kinase 29 L CK-MB (CK-2) 0.30 Troponin I < 0.012 Impressions: Chest X-Ray 08/09/17 06:34 IMPRESSION: 1. Cardiomegaly with likely interstitial edema. Underlying pneumonic process not excluded. Continued follow-up recommended. Assessment & Plan - Diagnosis (1) Acute on chronic systolic CHF (congestive heart failure) Is this a current diagnosis for this admission?: Yes (2) Chronic combined systolic and diastolic CHF (congestive heart failure) Is this a current diagnosis for this admission?: Yes (3) Diabetes mellitus type 2 in obese Is this a current diagnosis for this admission?: Yes 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 2 diabetes mellitus Qualifiers: Diabetic foot ulcer location: heel Non-pressure ulcer stage: with muscle involvement without evidence of necrosis Qualified Code(s): E11.621 - Type 2 diabetes mellitus with foot ulcer; L97.425 - Non-pressure chronic ulcer of left heel and midfoot with muscle involvement without evidence of necrosis; L97.425 - Non-pressure chronic ulcer of left heel and midfoot with muscle involvement without evidence of necrosis; L97.425 - Non-pressure chronic ulcer of left heel and midfoot with muscle involvement without evidence of necrosis; L97.425 - Non- pressure chronic ulcer of left heel and midfoot with muscle involvement without evidence of necrosis Is this a current diagnosis for this admission?: Yes (5) CAD (coronary artery disease) Qualifiers: Coronary Disease-Associated Artery/Lesion type: unspecified vessel or lesion type [place] vs. transplanted heart: [place] heart Associated angina: without angina Qualified Code(s): I25.10 - Atherosclerotic heart disease of [place] coronary artery without angina pectoris Is this a current diagnosis for this admission?: Yes (6) HLD (hyperlipidemia) Qualifiers: Hyperlipidemia type: pure hypercholesterolemia Qualified Code(s): E78.00 - Pure hypercholesterolemia, unspecified Is this a current diagnosis for this admission?: Yes (7) HTN (hypertension) Qualifiers: Hypertension type: essential hypertension Qualified Code(s): I10 - Essential (primary) hypertension Is this a current diagnosis for this admission?: Yes (8) Hx of stroke without residual deficits Is this a current diagnosis for this admission?: Yes (9) S/P CABG (coronary artery bypass graft) Is this a current diagnosis for this admission?: Yes - Time Time Spent with patient: 25-34 minutes Medications reviewed and adjusted accordingly: Yes Anticipated discharge: Home Within: Other - Inpatient Certification Based on my medical assessment, after consideration of the patient's comorbidities, presenting symptoms, or acuity I expect that the services needed warrant INPATIENT care.: Yes I certify that my determination is in accordance with my understanding of Medicare's requirements for reasonable and necessary INPATIENT services [42 CFR 412.3e].: Yes Medical Necessity: Need Close Monitoring Due to Risk of Patient Decompensation, Need For IV Fluids, Need For Continuous Telemetry Monitoring, Risk of Complication if Not Cared For in Hospital Post Hospital Care: D/C Income Tax Advisor Documentation - Plan Summary Plan Summary: Continue on current medication management. Obtain KUB X ray for evaluation of possible constipation.
--- NOTE | 2017-08-12 12:01 | RADIOLOGY REPORT (SQ) ---
EXAM DESCRIPTION: KUB/ABDOMEN (SINGLE VIEW) COMPLETED DATE/TIME: 08/12/2017 11:47 am REASON FOR STUDY: abdominal pain with bowel movement COMPARISON: 01/21/2015 NUMBER OF VIEWS: One view. TECHNIQUE: Supine radiographic image of the abdomen acquired. LIMITATIONS: None. FINDINGS: BOWEL GAS PATTERN: Normal bowel gas pattern. No dilated loops. CALCIFICATIONS: No suspicious calcifications. SOFT TISSUES: No gross mass or suggestion of organomegaly. HARDWARE: None. BONES: No bone lesions or fracture. OTHER: No other significant finding. IMPRESSION: NO RADIOGRAPHIC EVIDENCE FOR ACUTE ABDOMINAL DISEASE. Reading location - IP/workstation name: [email or web address]
[2017-08-12] MEDS: DOCUSATE SODIUM 100 MG CAPSULE PO SCH (22:37)
[2017-08-12] MEDS: ATORVASTATIN CALCIUM 10 MG TABLET PO SCH (22:38)
[2017-08-13] MEDS: OXYCODONE-ACETAMINOPHEN 5-325 MG TABLET PO PRN ×5 (02:14→19:42)
[2017-08-13] MEDS: HYDRALAZINE HCL 25 MG TABLET PO SCH ×3 (06:43→21:53)
[2017-08-13] MEDS: ISOSORBIDE DINITRATE 20 MG TABLET PO SCH ×3 (06:43→21:52)
[2017-08-13] MEDS: LANSOPRAZOLE 30 MG TAB.RAP.DR PO SCH (06:43)
[2017-08-13] MEDS: OXYCODONE HCL IR 5 MG TABLET PO PRN ×3 (08:04→21:54)
[2017-08-13] MEDS: ASPIRIN 81 MG TABLET, ENT COATED PO SCH (11:19)
[2017-08-13] MEDS: CLOPIDOGREL BISULFATE 75 MG TABLET PO SCH (11:19)
[2017-08-13] MEDS: AMLODIPINE BESYLATE 10 MG TABLET PO SCH (11:20)
[2017-08-13] MEDS: FUROSEMIDE INJ/PF 40 MG/4 ML SDV IV SCH ×2 (11:20→21:54)
[2017-08-13] MEDS: ENOXAPARIN SODIUM INJ 40 MG/0.4 ML DISP.SYRIN SUBCUT SCH (11:21)
[2017-08-13] MEDS: SACUBITRIL/VALSARTAN 97 MG/103 MG TABLET PO SCH ×2 (11:23→19:40)
[2017-08-13] MEDS: GENTAMICIN SULFATE 0.1% CREAM 15 GM TP SCH (11:29)
[2017-08-13] MEDS ORDERED: BISACODYL 10 MG SUPP.RECT PR ONE (14:00)
--- NOTE | 2017-08-13 14:16 | PDOC PROGRESS REPORT ---
Subjective Progress Note for:: 08/13/17 Subjective:: Patient reported constipation. No nausea or vomiting. Abdominal pain remain intermittent. No chest pain or difficulty with breathing. No fever or chills. Reason For Visit: ACUTE ON CHRONIC CHF Physical Exam Vital Signs: Temp Pulse Resp BP Pulse Ox 98.4 F 83 16 152/74 H 94 08/13/17 12:42 08/13/17 12:42 08/13/17 12:42 08/13/17 12:42 08/13/17 12:42 Intake & Output 08/12/17 08/13/17 08/14/17 06:59 06:59 06:59 Intake Total 1296 1414 Output Total 1300 3300 Balance -4 -1886 Weight 104.8 kg Physical Exam: General appearance: PRESENT: no acute distress, obese Head exam: PRESENT: atraumatic, normocephalic Eye exam: PRESENT: conjunctiva pink, EOMI, PERRLA. ABSENT: scleral icterus Mouth exam: PRESENT: moist Teeth exam: PRESENT: poor dentition Respiratory exam: PRESENT: clear to auscultation jerrica, decreased breath sounds - lung bases Cardiovascular exam: PRESENT: RRR. ABSENT: diastolic murmur, rubs, systolic murmur GI/Abdominal exam: PRESENT: normal bowel sounds, soft. 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 ABSENT: motor sensory deficit Psychiatric exam: PRESENT: appropriate affect, normal mood. ABSENT: homicidal ideation, suicidal ideation Skin exam: PRESENT: dry, warm, other - left foot heel region chronic non healing diabetic ulcer. Results Laboratory Results: 08/12/17 06:29 08/12/17 06:29 08/11/17 08/11/17 16:10 16:10 Creatine Kinase 29 L CK-MB (CK-2) 0.30 Troponin I < 0.012 Impressions: Chest X-Ray 08/09/17 06:34 IMPRESSION: 1. Cardiomegaly with likely interstitial edema. Underlying pneumonic process not excluded. Continued follow-up recommended. KUB X-Ray 08/12/17 00:00 IMPRESSION: NO RADIOGRAPHIC EVIDENCE FOR ACUTE ABDOMINAL DISEASE. Assessment & Plan - Diagnosis (1) Acute on chronic systolic CHF (congestive heart failure) Is this a current diagnosis for this admission?: Yes (2) Chronic combined systolic and diastolic CHF (congestive heart failure) Is this a current diagnosis for this admission?: Yes (3) Diabetes mellitus type 2 in obese Is this a current diagnosis for this admission?: Yes 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 2 diabetes mellitus Qualifiers: Diabetic foot ulcer location: heel Non-pressure ulcer stage: with muscle involvement without evidence of necrosis Qualified Code(s): E11.621 - Type 2 diabetes mellitus with foot ulcer; L97.425 - Non-pressure chronic ulcer of left heel and midfoot with muscle involvement without evidence of necrosis; L97.425 - Non-pressure chronic ulcer of left heel and midfoot with muscle involvement without evidence of necrosis; L97.425 - Non-pressure chronic ulcer of left heel and midfoot with muscle involvement without evidence of necrosis; L97.425 - Non- pressure chronic ulcer of left heel and midfoot with muscle involvement without evidence of necrosis Is this a current diagnosis for this admission?: Yes (5) CAD (coronary artery disease) Qualifiers: Coronary Disease-Associated Artery/Lesion type: unspecified vessel or lesion type [place] vs. transplanted heart: [place] heart Associated angina: without angina Qualified Code(s): I25.10 - Atherosclerotic heart disease of [place] coronary artery without angina pectoris Is this a current diagnosis for this admission?: Yes (6) HLD (hyperlipidemia) Qualifiers: Hyperlipidemia type: pure hypercholesterolemia Qualified Code(s): E78.00 - Pure hypercholesterolemia, unspecified Is this a current diagnosis for this admission?: Yes (7) HTN (hypertension) Qualifiers: Hypertension type: essential hypertension Qualified Code(s): I10 - Essential (primary) hypertension Is this a current diagnosis for this admission?: Yes (8) Hx of stroke without residual deficits Is this a current diagnosis for this admission?: Yes (9) S/P CABG (coronary artery bypass graft) Is this a current diagnosis for this admission?: Yes - Time Time Spent with patient: 25-34 minutes Medications reviewed and adjusted accordingly: Yes Anticipated discharge: Home with Homehealth Within: Other - Inpatient Certification Based on my medical assessment, after consideration of the patient's comorbidities, presenting symptoms, or acuity I expect that the services needed warrant INPATIENT care.: Yes I certify that my determination is in accordance with my understanding of Medicare's requirements for reasonable and necessary INPATIENT services [42 CFR 412.3e].: Yes Medical Necessity: Need Close Monitoring Due to Risk of Patient Decompensation, Need For Continuous Telemetry Monitoring, Risk of Complication if Not Cared For in Hospital Post Hospital Care: D/C Jboss Developer 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 Administer Dulcolax 10 mg MT x 1 dose. Continue Colace 200mg p.o qhs.
[2017-08-13] MEDS: DOCUSATE SODIUM 100 MG CAPSULE PO SCH (21:53)
[2017-08-13] MEDS: ATORVASTATIN CALCIUM 10 MG TABLET PO SCH (21:53)
[2017-08-14] MEDS: OXYCODONE-ACETAMINOPHEN 5-325 MG TABLET PO PRN ×6 (01:05→22:32)
[2017-08-14] MEDS: LANSOPRAZOLE 30 MG TAB.RAP.DR PO SCH (04:59)
[2017-08-14] MEDS: HYDRALAZINE HCL 25 MG TABLET PO SCH ×3 (05:00→22:30)
[2017-08-14] MEDS: ISOSORBIDE DINITRATE 20 MG TABLET PO SCH ×3 (05:00→22:30)
[2017-08-14] MEDS: OXYCODONE HCL IR 5 MG TABLET PO PRN ×3 (05:01→19:57)
[2017-08-14 06:49] LABS: ABSOLUTE BASOPHILS # (AUTO) 0.1 10^3/uL (0.0-0.2); ABSOLUTE EOSINOPHILS # (AUTO) 0.2 10^3/uL (0.0-0.6); ABSOLUTE MONOCYTES (AUTO) 0.7 10^3/uL (0.1-1.4); ABSOLUTE NEUT (AUTO) 7.6 10^3/uL (1.7-8.2); BASOPHILS % (AUTO) 0.7 % (0-2); EOSINOPHILS % (AUTO) 1.6 % (0-6); HEMATOCRIT 29.8 % (36.0-47.0); HEMOGLOBIN 9.7 g/dL (12.0-15.5); LYMPHOCYTES % (AUTO) 18.6 % (13-45); MEAN CORPUSCULAR HEMOGLOBIN 27.9 pg (27.0-33.4); MEAN CORPUSCULAR HGB CONC 32.6 g/dL (32.0-36.0); MEAN CORPUSCULAR VOLUME 86 fl (80-97); MONOCYTES % (AUTO) 6.3 % (3-13); PLATELET COUNT 316 10^3/uL (150-450); RED BLOOD COUNT 3.48 10^6/uL (3.72-5.28); RED CELL DISTRIBUTION WIDTH 17.7 % (11.5-14.0); SEGMENTED NEUTROPHILS % (AUTO) 72.8 % (42-78); TOTAL CELLS COUNTED % (AUTO) 100 %; WHITE BLOOD COUNT 10.5 10^3/uL (4.0-10.5)
[2017-08-14 07:16] LABS: ALANINE AMINOTRANSFERASE 16 U/L (9-52); ALBUMIN 2.9 g/dL (3.5-5.0); ALKALINE PHOSPHATASE 128 U/L (38-126); ANION GAP 8 (5-19); ASPARTATE AMINO TRANSFERASE 10 U/L (14-36); BILIRUBIN,DIRECT 0.3 mg/dL (0.0-0.4); BILIRUBIN,TOTAL 0.9 mg/dL (0.2-1.3); BLOOD UREA NITROGEN 11 mg/dL (7-20); CALCIUM 9.1 mg/dL (8.4-10.2); CARBON DIOXIDE 29 mmol/L (22-30); CHLORIDE 103 mmol/L (98-107); GLUCOSE 141 mg/dL (75-110); SODIUM 139.6 mmol/L (137-145); TOTAL PROTEIN 6.3 g/dL (6.3-8.2)
[2017-08-14] MEDS: AMLODIPINE BESYLATE 10 MG TABLET PO SCH (09:08)
[2017-08-14] MEDS: FUROSEMIDE INJ/PF 40 MG/4 ML SDV IV SCH ×2 (09:09→22:29)
[2017-08-14] MEDS: ASPIRIN 81 MG TABLET, ENT COATED PO SCH (09:09)
[2017-08-14] MEDS: CLOPIDOGREL BISULFATE 75 MG TABLET PO SCH (09:09)
[2017-08-14] MEDS: ENOXAPARIN SODIUM INJ 40 MG/0.4 ML DISP.SYRIN SUBCUT SCH (09:10)
[2017-08-14] MEDS: SACUBITRIL/VALSARTAN 97 MG/103 MG TABLET PO SCH ×2 (09:11→18:35)
[2017-08-14] MEDS: GENTAMICIN SULFATE 0.1% CREAM 15 GM TP SCH (13:46)
--- NOTE | 2017-08-14 19:21 | PDOC PROGRESS REPORT ---
Subjective Progress Note for:: 08/14/17 Subjective:: Patient reported continued constipation despite Dulcolax suppository administration. No nausea or vomiting. Abdominal pain remain intermittent. No chest pain or difficulty with breathing. No fever or chills. Reason For Visit: ACUTE ON CHRONIC CHF Physical Exam Vital Signs: Temp Pulse Resp BP Pulse Ox 97.8 F 80 20 145/69 H 95 08/14/17 07:43 08/14/17 14:00 08/14/17 07:43 08/14/17 07:43 08/14/17 07:43 Intake & Output 08/13/17 08/14/17 08/15/17 06:59 06:59 06:59 Intake Total 1414 484 474 Output Total 3300 4150 600 Balance -1886 -8506 -126 Weight 102.8 kg Physical Exam: General appearance: PRESENT: no acute distress, obese Head exam: PRESENT: atraumatic, normocephalic Eye exam: PRESENT: conjunctiva pink, EOMI, PERRLA. ABSENT: scleral icterus Mouth exam: PRESENT: moist Teeth exam: PRESENT: poor dentition Respiratory exam: PRESENT: clear to auscultation jerrica, decreased breath sounds - lung bases Cardiovascular exam: PRESENT: RRR. ABSENT: diastolic murmur, rubs, systolic murmur GI/Abdominal exam: PRESENT: normal bowel sounds, soft. 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 ABSENT: motor sensory deficit Psychiatric exam: PRESENT: appropriate affect, normal mood. ABSENT: homicidal ideation, suicidal ideation Skin exam: PRESENT: dry, warm, other - left foot heel region chronic non healing diabetic ulcer. Results Laboratory Results: 08/14/17 06:20 08/14/17 06:20 08/14/17 08/14/17 06:20 06:20 WBC 10.5 RBC 3.48 L Hgb 9.7 L Hct 29.8 L MCV 86 MCH 27.9 MCHC 32.6 RDW 17.7 H Plt Count 316 Seg Neutrophils % 72.8 Lymphocytes % 18.6 Monocytes % 6.3 Eosinophils % 1.6 Basophils % 0.7 Absolute Neutrophils 7.6 Absolute Lymphocytes 2.0 Absolute Monocytes 0.7 Absolute Eosinophils 0.2 Absolute Basophils 0.1 Sodium 139.6 Potassium 4.0 Chloride 103 Carbon Dioxide 29 Anion Gap 8 BUN 11 Creatinine 0.61 Est GFR ( Amer) > 60 Est GFR (Non-Af Amer) > 60 Glucose 141 H Calcium 9.1 Total Bilirubin 0.9 AST 10 L ALT 16 Alkaline Phosphatase 128 H Total Protein 6.3 Albumin 2.9 L 08/11/17 08/11/17 08/14/17 16:10 16:10 06:20 Creatine Kinase 29 L CK-MB (CK-2) 0.30 Troponin I < 0.012 NT-Pro-B Natriuret Pep 3190 H Impressions: Chest X-Ray 08/09/17 06:34 IMPRESSION: 1. Cardiomegaly with likely interstitial edema. Underlying pneumonic process not excluded. Continued follow-up recommended. KUB X-Ray 08/12/17 00:00 IMPRESSION: NO RADIOGRAPHIC EVIDENCE FOR ACUTE ABDOMINAL DISEASE. Assessment & Plan - Diagnosis (1) Acute on chronic systolic CHF (congestive heart failure) Is this a current diagnosis for this admission?: Yes (2) Chronic combined systolic and diastolic CHF (congestive heart failure) Is this a current diagnosis for this admission?: Yes (3) Diabetes mellitus type 2 in obese Is this a current diagnosis for this admission?: Yes 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 2 diabetes mellitus Qualifiers: Diabetic foot ulcer location: heel Non-pressure ulcer stage: with muscle involvement without evidence of necrosis Qualified Code(s): E11.621 - Type 2 diabetes mellitus with foot ulcer; L97.425 - Non-pressure chronic ulcer of left heel and midfoot with muscle involvement without evidence of necrosis; L97.425 - Non-pressure chronic ulcer of left heel and midfoot with muscle involvement without evidence of necrosis; L97.425 - Non-pressure chronic ulcer of left heel and midfoot with muscle involvement without evidence of necrosis; L97.425 - Non- pressure chronic ulcer of left heel and midfoot with muscle involvement without evidence of necrosis Is this a current diagnosis for this admission?: Yes (5) CAD (coronary artery disease) Qualifiers: Coronary Disease-Associated Artery/Lesion type: unspecified vessel or lesion type [place] vs. transplanted heart: [place] heart Associated angina: without angina Qualified Code(s): I25.10 - Atherosclerotic heart disease of [place] coronary artery without angina pectoris Is this a current diagnosis for this admission?: Yes (6) HLD (hyperlipidemia) Qualifiers: Hyperlipidemia type: pure hypercholesterolemia Qualified Code(s): E78.00 - Pure hypercholesterolemia, unspecified Is this a current diagnosis for this admission?: Yes (7) HTN (hypertension) Qualifiers: Hypertension type: essential hypertension Qualified Code(s): I10 - Essential (primary) hypertension Is this a current diagnosis for this admission?: Yes (8) Hx of stroke without residual deficits Is this a current diagnosis for this admission?: Yes (9) S/P CABG (coronary artery bypass graft) Is this a current diagnosis for this admission?: Yes - Time Time Spent with patient: 25-34 minutes Medications reviewed and adjusted accordingly: Yes Anticipated discharge: Home with Homehealth Within: Other - Inpatient Certification Based on my medical assessment, after consideration of the patient's comorbidities, presenting symptoms, or acuity I expect that the services needed warrant INPATIENT care.: Yes I certify that my determination is in accordance with my understanding of Medicare's requirements for reasonable and necessary INPATIENT services [42 CFR 412.3e].: Yes Medical Necessity: Need Close Monitoring Due to Risk of Patient Decompensation, Need For Continuous Telemetry Monitoring, Risk of Complication if Not Cared For in Hospital Post Hospital Care: D/C Balance Engineer Documentation - Plan Summary Plan Summary: D/C IV Lasix. Start on oral Lasix 40 mg po daily. Administer Soap sob enema and Lactulose 30 mL x 1 dose. Continue all other current medication management.
[2017-08-14] MEDS ORDERED: LACTULOSE SYRUP 20 GM/30 ML UDCUP PO ONE (19:22)
[2017-08-14] MEDS: ATORVASTATIN CALCIUM 10 MG TABLET PO SCH (22:30)
[2017-08-14] MEDS: DOCUSATE SODIUM 100 MG CAPSULE PO SCH (22:30)
[2017-08-15] MEDS: HYDRALAZINE HCL 25 MG TABLET PO SCH ×3 (05:22→22:06)
[2017-08-15] MEDS: LANSOPRAZOLE 30 MG TAB.RAP.DR PO SCH (05:23)
[2017-08-15] MEDS: OXYCODONE HCL IR 5 MG TABLET PO PRN ×2 (05:29→19:44)
[2017-08-15] MEDS: OXYCODONE-ACETAMINOPHEN 5-325 MG TABLET PO PRN ×2 (05:30→19:43)
[2017-08-15] MEDS: ISOSORBIDE DINITRATE 20 MG TABLET PO SCH ×3 (05:31→22:07)
[2017-08-15] MEDS: ENOXAPARIN SODIUM INJ 40 MG/0.4 ML DISP.SYRIN SUBCUT SCH (10:04)
[2017-08-15] MEDS: ASPIRIN 81 MG TABLET, ENT COATED PO SCH (10:05)
[2017-08-15] MEDS: CLOPIDOGREL BISULFATE 75 MG TABLET PO SCH (10:05)
[2017-08-15] MEDS: FUROSEMIDE 40 MG TABLET PO SCH (10:05)
[2017-08-15] MEDS: AMLODIPINE BESYLATE 10 MG TABLET PO SCH (10:05)
[2017-08-15] MEDS: SACUBITRIL/VALSARTAN 97 MG/103 MG TABLET PO SCH ×2 (10:06→17:48)
[2017-08-15] MEDS: GENTAMICIN SULFATE 0.1% CREAM 15 GM TP SCH (10:17)
--- NOTE | 2017-08-15 19:29 | PDOC PROGRESS REPORT ---
Subjective Progress Note for:: 08/15/17 Subjective:: Patient reported continued constipation. No nausea or vomiting. Abdominal pain remain intermittent. No chest pain or difficulty with breathing. No fever or chills. Reason For Visit: ACUTE ON CHRONIC CHF Physical Exam Vital Signs: Temp Pulse Resp BP Pulse Ox 99.1 F 80 16 139/60 H 95 08/15/17 16:07 08/15/17 16:07 08/15/17 11:42 08/15/17 16:07 08/15/17 16:07 Intake & Output 08/14/17 08/15/17 08/16/17 06:59 06:59 06:59 Intake Total 484 724 914 Output Total 4150 1100 700 Balance -3666 -376 214 Weight 102.8 kg 94.7 kg Physical Exam: General appearance: PRESENT: no acute distress, obese Head exam: PRESENT: atraumatic, normocephalic Eye exam: PRESENT: conjunctiva pink, EOMI, PERRLA. ABSENT: scleral icterus Mouth exam: PRESENT: moist Teeth exam: PRESENT: poor dentition Respiratory exam: PRESENT: clear to auscultation jerrica, decreased breath sounds - lung bases Cardiovascular exam: PRESENT: RRR. ABSENT: diastolic murmur, rubs, systolic murmur GI/Abdominal exam: PRESENT: normal bowel sounds, soft. 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 ABSENT: motor sensory deficit Psychiatric exam: PRESENT: appropriate affect, normal mood. ABSENT: homicidal ideation, suicidal ideation Skin exam: PRESENT: dry, warm, other - left foot heel region chronic non healing diabetic ulcer. Results Laboratory Results: 08/14/17 06:20 08/14/17 06:20 08/11/17 08/11/17 08/14/17 16:10 16:10 06:20 Creatine Kinase 29 L CK-MB (CK-2) 0.30 Troponin I < 0.012 NT-Pro-B Natriuret Pep 3190 H Impressions: Chest X-Ray 08/09/17 06:34 IMPRESSION: 1. Cardiomegaly with likely interstitial edema. Underlying pneumonic process not excluded. Continued follow-up recommended. KUB X-Ray 08/12/17 00:00 IMPRESSION: NO RADIOGRAPHIC EVIDENCE FOR ACUTE ABDOMINAL DISEASE. Assessment & Plan - Diagnosis (1) Acute on chronic systolic CHF (congestive heart failure) Is this a current diagnosis for this admission?: Yes (2) Chronic combined systolic and diastolic CHF (congestive heart failure) Is this a current diagnosis for this admission?: Yes (3) Diabetes mellitus type 2 in obese Is this a current diagnosis for this admission?: Yes 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 2 diabetes mellitus Qualifiers: Diabetic foot ulcer location: heel Non-pressure ulcer stage: with muscle involvement without evidence of necrosis Qualified Code(s): E11.621 - Type 2 diabetes mellitus with foot ulcer; L97.425 - Non-pressure chronic ulcer of left heel and midfoot with muscle involvement without evidence of necrosis; L97.425 - Non-pressure chronic ulcer of left heel and midfoot with muscle involvement without evidence of necrosis; L97.425 - Non-pressure chronic ulcer of left heel and midfoot with muscle involvement without evidence of necrosis; L97.425 - Non- pressure chronic ulcer of left heel and midfoot with muscle involvement without evidence of necrosis Is this a current diagnosis for this admission?: Yes (5) CAD (coronary artery disease) Qualifiers: Coronary Disease-Associated Artery/Lesion type: unspecified vessel or lesion type [place] vs. transplanted heart: [place] heart Associated angina: without angina Qualified Code(s): I25.10 - Atherosclerotic heart disease of [place] coronary artery without angina pectoris Is this a current diagnosis for this admission?: Yes (6) HLD (hyperlipidemia) Qualifiers: Hyperlipidemia type: pure hypercholesterolemia Qualified Code(s): E78.00 - Pure hypercholesterolemia, unspecified Is this a current diagnosis for this admission?: Yes (7) HTN (hypertension) Qualifiers: Hypertension type: essential hypertension Qualified Code(s): I10 - Essential (primary) hypertension Is this a current diagnosis for this admission?: Yes (8) Hx of stroke without residual deficits Is this a current diagnosis for this admission?: Yes (9) S/P CABG (coronary artery bypass graft) Is this a current diagnosis for this admission?: Yes - Time Time Spent with patient: 25-34 minutes Medications reviewed and adjusted accordingly: Yes Anticipated discharge: Home with Homehealth Within: Other - Inpatient Certification Based on my medical assessment, after consideration of the patient's comorbidities, presenting symptoms, or acuity I expect that the services needed warrant INPATIENT care.: Yes I certify that my determination is in accordance with my understanding of Medicare's requirements for reasonable and necessary INPATIENT services [42 CFR 412.3e].: Yes Medical Necessity: Need Close Monitoring Due to Risk of Patient Decompensation, Need For Continuous Telemetry Monitoring, Risk of Complication if Not Cared For in Hospital Post Hospital Care: D/C Supervisor Liquefaction 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 Repeat Lactulose 20gm po x 1 dose. Enema Milk of Molasses.
[2017-08-15] MEDS ORDERED: LACTULOSE SYRUP 20 GM/30 ML UDCUP PO ONE (20:00)
[2017-08-15] MEDS: ATORVASTATIN CALCIUM 10 MG TABLET PO SCH (22:07)
[2017-08-15] MEDS: DOCUSATE SODIUM 100 MG CAPSULE PO SCH (22:07)
[2017-08-16] MEDS: OXYCODONE-ACETAMINOPHEN 5-325 MG TABLET PO PRN ×3 (00:54→23:35)
[2017-08-16] MEDS: OXYCODONE HCL IR 5 MG TABLET PO PRN ×3 (00:54→23:36)
[2017-08-16] MEDS: HYDRALAZINE HCL 25 MG TABLET PO SCH ×3 (06:23→23:33)
[2017-08-16] MEDS: ISOSORBIDE DINITRATE 20 MG TABLET PO SCH ×3 (06:25→23:35)
[2017-08-16] MEDS: LANSOPRAZOLE 30 MG TAB.RAP.DR PO SCH (06:25)
[2017-08-16] MEDS: ENOXAPARIN SODIUM INJ 40 MG/0.4 ML DISP.SYRIN SUBCUT SCH (10:10)
[2017-08-16] MEDS: SACUBITRIL/VALSARTAN 97 MG/103 MG TABLET PO SCH ×2 (10:11→17:35)
[2017-08-16] MEDS: FUROSEMIDE 40 MG TABLET PO SCH (10:11)
[2017-08-16] MEDS: CLOPIDOGREL BISULFATE 75 MG TABLET PO SCH (10:11)
[2017-08-16] MEDS: GENTAMICIN SULFATE 0.1% CREAM 15 GM TP SCH (10:12)
[2017-08-16] MEDS: AMLODIPINE BESYLATE 10 MG TABLET PO SCH (10:12)
[2017-08-16] MEDS: ASPIRIN 81 MG TABLET, ENT COATED PO SCH (10:12)
--- NOTE | 2017-08-16 18:24 | PDOC PROGRESS REPORT ---
Subjective Progress Note for:: 08/16/17 Subjective:: Patient denied any significant chest pain or difficulty with breathing. No nausea or vomiting, or abdominal pain. She reported improvement in her constipation issue. No fever or chills. Reason For Visit: ACUTE ON CHRONIC CHF Physical Exam Vital Signs: Temp Pulse Resp BP Pulse Ox 98.3 F 77 16 136/62 H 95 08/16/17 11:57 08/16/17 14:00 08/16/17 11:57 08/16/17 11:57 08/16/17 11:57 Intake & Output 08/15/17 08/16/17 08/17/17 06:59 06:59 06:59 Intake Total 724 1164 Output Total 1100 1100 Balance -376 64 Weight 94.7 kg 97.6 kg Physical Exam: General appearance: PRESENT: no acute distress, obese Head exam: PRESENT: atraumatic, normocephalic Eye exam: PRESENT: conjunctiva pink, EOMI, PERRLA. ABSENT: scleral icterus Mouth exam: PRESENT: moist Respiratory exam: PRESENT: clear to auscultation jerrica, decreased breath sounds - lung bases Cardiovascular exam: PRESENT: RRR. ABSENT: diastolic murmur, rubs, systolic murmur GI/Abdominal exam: PRESENT: normal bowel sounds, soft. 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 ABSENT: motor sensory deficit Psychiatric exam: PRESENT: appropriate affect, normal mood. ABSENT: homicidal ideation, suicidal ideation Skin exam: PRESENT: dry, warm, other - left foot heel region chronic non healing diabetic ulcer. Results Laboratory Results: 08/14/17 06:20 08/14/17 06:20 08/11/17 08/11/17 08/14/17 16:10 16:10 06:20 Creatine Kinase 29 L CK-MB (CK-2) 0.30 Troponin I < 0.012 NT-Pro-B Natriuret Pep 3190 H Impressions: Chest X-Ray 08/09/17 06:34 IMPRESSION: 1. Cardiomegaly with likely interstitial edema. Underlying pneumonic process not excluded. Continued follow-up recommended. KUB X-Ray 08/12/17 00:00 IMPRESSION: NO RADIOGRAPHIC EVIDENCE FOR ACUTE ABDOMINAL DISEASE. Assessment & Plan - Diagnosis (1) Acute on chronic systolic CHF (congestive heart failure) Is this a current diagnosis for this admission?: Yes (2) Chronic combined systolic and diastolic CHF (congestive heart failure) Is this a current diagnosis for this admission?: Yes (3) Diabetes mellitus type 2 in obese Is this a current diagnosis for this admission?: Yes 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 2 diabetes mellitus Qualifiers: Diabetic foot ulcer location: heel Non-pressure ulcer stage: with muscle involvement without evidence of necrosis Qualified Code(s): E11.621 - Type 2 diabetes mellitus with foot ulcer; L97.425 - Non-pressure chronic ulcer of left heel and midfoot with muscle involvement without evidence of necrosis; L97.425 - Non-pressure chronic ulcer of left heel and midfoot with muscle involvement without evidence of necrosis; L97.425 - Non-pressure chronic ulcer of left heel and midfoot with muscle involvement without evidence of necrosis; L97.425 - Non- pressure chronic ulcer of left heel and midfoot with muscle involvement without evidence of necrosis Is this a current diagnosis for this admission?: Yes (5) CAD (coronary artery disease) Qualifiers: Coronary Disease-Associated Artery/Lesion type: unspecified vessel or lesion type [place] vs. transplanted heart: [place] heart Associated angina: without angina Qualified Code(s): I25.10 - Atherosclerotic heart disease of [place] coronary artery without angina pectoris Is this a current diagnosis for this admission?: Yes (6) HLD (hyperlipidemia) Qualifiers: Hyperlipidemia type: pure hypercholesterolemia Qualified Code(s): E78.00 - Pure hypercholesterolemia, unspecified Is this a current diagnosis for this admission?: Yes (7) HTN (hypertension) Qualifiers: Hypertension type: essential hypertension Qualified Code(s): I10 - Essential (primary) hypertension Is this a current diagnosis for this admission?: Yes (8) Hx of stroke without residual deficits Is this a current diagnosis for this admission?: Yes (9) S/P CABG (coronary artery bypass graft) Is this a current diagnosis for this admission?: Yes - Time Time Spent with patient: 25-34 minutes Medications reviewed and adjusted accordingly: Yes Anticipated discharge: Home with Homehealth Within: within 24 hours - Inpatient Certification Based on my medical assessment, after consideration of the patient's comorbidities, presenting symptoms, or acuity I expect that the services needed warrant INPATIENT care.: Yes I certify that my determination is in accordance with my understanding of Medicare's requirements for reasonable and necessary INPATIENT services [42 CFR 412.3e].: Yes Medical Necessity: Need Close Monitoring Due to Risk of Patient Decompensation, Need For Continuous Telemetry Monitoring, Risk of Complication if Not Cared For in Hospital Post Hospital Care: D/C Finish Carpenter 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 I had extensive discussion with patient today regarding her discharge home tomorrow and she is in agreement.
[2017-08-16] MEDS: DOCUSATE SODIUM 100 MG CAPSULE PO SCH (23:30)
[2017-08-16] MEDS: ATORVASTATIN CALCIUM 10 MG TABLET PO SCH (23:31)
[2017-08-17] MEDS: HYDRALAZINE HCL 25 MG TABLET PO SCH ×2 (06:09→16:32)
[2017-08-17] MEDS: LANSOPRAZOLE 30 MG TAB.RAP.DR PO SCH (06:11)
[2017-08-17] MEDS: ISOSORBIDE DINITRATE 20 MG TABLET PO SCH ×2 (06:11→16:32)
[2017-08-17] MEDS: OXYCODONE-ACETAMINOPHEN 5-325 MG TABLET PO PRN (06:12)
[2017-08-17] MEDS: OXYCODONE HCL IR 5 MG TABLET PO PRN (06:13)
[2017-08-17] MEDS: FUROSEMIDE 40 MG TABLET PO SCH (11:20)
[2017-08-17] MEDS: CLOPIDOGREL BISULFATE 75 MG TABLET PO SCH (11:21)
[2017-08-17] MEDS: ASPIRIN 81 MG TABLET, ENT COATED PO SCH (11:21)
[2017-08-17] MEDS: AMLODIPINE BESYLATE 10 MG TABLET PO SCH (11:21)
[2017-08-17] MEDS: ENOXAPARIN SODIUM INJ 40 MG/0.4 ML DISP.SYRIN SUBCUT SCH (11:22)
[2017-08-17] MEDS: SACUBITRIL/VALSARTAN 97 MG/103 MG TABLET PO SCH (11:23)
[2017-08-17] MEDS: INSULIN LISPRO 100 UNIT/ML 3 ML VIAL SUBCUT PRN (11:26)
[2017-08-17] MEDS: GENTAMICIN SULFATE 0.1% CREAM 15 GM TP SCH (11:29)
--- NOTE | 2017-08-17 15:32 | PDOC DISCHARGE SUMMARY ---
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 2 diabetes mellitus Is this a current diagnosis for this admission?: Yes (5) CAD (coronary artery disease) Is this a current diagnosis for this admission?: Yes (6) HLD (hyperlipidemia) Is this a current diagnosis for this admission?: Yes (7) HTN (hypertension) Is this a current diagnosis for this admission?: Yes (8) Hx of stroke without residual deficits Is this a current diagnosis for this admission?: Yes (9) S/P CABG (coronary artery bypass graft) Is this a current diagnosis for this admission?: Yes - Additional Information Resuscitation Status: Full Code Discharge Diet: Cardiac, Diabetic Discharge Activity: Activity As Tolerated, Balance Activity w/Rest, Weigh Daily Prescriptions: Calcium Carbonate [Tums Chewable 500 mg Tab.chew] 500 mg PO MEALSHS #120 tab.chew Isosorb Dinit/Hydralazine HCl [Bidil 20-37.5 mg Tablet] 1 tab PO Q8 #90 tablet Home Medications: Clopidogrel Bisulfate [Plavix 75 mg Tablet] 75 mg PO DAILY 06/19/17 Furosemide [Lasix 40 mg Tablet] 40 mg PO DAILY 06/19/17 Insulin Lispro [Humalog Kwikpen U-100] 0 unit SQ .SLIDING SCALE #5 insuln.pen Amlodipine Besylate [Norvasc 10 mg Tablet] 10 mg PO DAILY 08/09/17 Aspirin [Aspirin EC] 81 mg PO DAILY 08/09/17 Insulin Detemir [Levemir Flextouch] 50 unit SQ BID 08/09/17 Oxycodone HCl 5 mg PO Q6HP PRN 08/09/17 Pravastatin Sodium [Pravachol] 20 mg PO QHS 08/09/17 Sacubitril/Valsartan [Entresto 97 mg-103 mg Tablet] 1 tab PO BID 08/09/17 Calcium Carbonate [Tums Chewable 500 mg Tab.chew] 500 mg PO MEALSHS #120 tab.chew 08/17/17 Isosorb Dinit/Hydralazine HCl [Bidil 20-37.5 mg Tablet] 1 tab PO Q8 #90 tablet 08/17/17 History of Present Illness Patient complains of: Difficulty with breathing History of Present Illness: JAVIER BURGER is a 61 year old female known to my practice presented to the ED with listed complaints. Poor historian but reported onset of symptoms about 3-4 days prior to presentation. She was unclear regarding chest pain or associated palpitation. She reported both at rest and exertional difficulty with breathing and described chest pain more as discomfort moving across her chest. She reported associated cough which is mostly nonproductive. Patient reported lower abdominal pain but denied nausea or vomiting. No constipation or diarrhea. Specifically requested for IV pain medication during my evaluation. She denied dysuria or flank pain. No hematuria. Her initial evaluation in the ED was remarkable for tachypnea, diffuse rales on examination, elevated blood pressure , elevated NT-Pro BNP level at over 6000, chest X ray suggestive of vascular congestion and cardiomegaly. In view of her presentation and clinical findings suggestive of acute decompensation of chronic CHF she was advised admission for further evaluation and management. Morbidities include chronic combined Congestive Heart Failure, Coronary Artery Disease, Hypertension, Hyperlipidemia , CAD, Old Myocardial infarction, Peripheral Vascular Disease, Diabetes Mellitus Type 2, Diabetic foot ulcer with chronic ulcer on left foot heel region , and chronic pain syndrome with episodes of overdose related respiratory impairment. Hospital Course Hospital Course: She was admitted for decompensated CHF with IV Lasix therapy. Her symptoms did improved. Her elevated blood pressure responded to Entresto administration. Due to persistence of elevated blood pressure she had addition of Hydralazine to her medication regimen and eventual addition of Isosorbide Dinitrate. Her blood pressure and symptoms have improved and she is agreeable to discharge home today. She will follow up in the office as instructed upon discharge. Physical Exam Vital Signs: Temp Pulse Resp BP Pulse Ox 98.9 F 82 20 147/77 H 96 08/17/17 03:51 08/17/17 07:00 08/17/17 03:51 08/17/17 03:51 08/17/17 03:51 Intake & Output 04/04/2308/17/17 08/18/17 06:59 06:59 06:59 Intake Total 1164 1289 400 Output Total 1100 700 600 Balance 64 589 -200 Weight 97.6 kg 97 kg Physical Exam: General appearance: PRESENT: no acute distress, obese Head exam: PRESENT: atraumatic, normocephalic Eye exam: PRESENT: conjunctiva pink, EOMI, PERRLA. ABSENT: scleral icterus Mouth exam: PRESENT: moist Respiratory exam: PRESENT: clear to auscultation jerrica, decreased breath sounds - lung bases Cardiovascular exam: PRESENT: RRR. ABSENT: diastolic murmur, rubs, systolic murmur GI/Abdominal exam: PRESENT: normal bowel sounds, soft. 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 ABSENT: motor sensory deficit Psychiatric exam: PRESENT: appropriate affect, normal mood. ABSENT: homicidal ideation, suicidal ideation Skin exam: PRESENT: dry, warm, other - left foot heel region chronic non healing diabetic ulcer. Results Laboratory Results: 08/14/17 06:20 08/14/17 06:20 08/11/17 08/11/17 08/14/17 16:10 16:10 06:20 Creatine Kinase 29 L CK-MB (CK-2) 0.30 Troponin I < 0.012 NT-Pro-B Natriuret Pep 3190 H Impressions: Chest X-Ray 08/09/17 06:34 IMPRESSION: 1. Cardiomegaly with likely interstitial edema. Underlying pneumonic process not excluded. Continued follow-up recommended. KUB X-Ray 08/12/17 00:00 IMPRESSION: NO RADIOGRAPHIC EVIDENCE FOR ACUTE ABDOMINAL DISEASE. Qualifiers - * PATEINT BEING DISCHARGED WITH ANY OF THE FOLLOWING DIAGNOSIS?: Heart Failure HF Pt being discharged on ACEI for LVEF less than 40%?: No Reason(s) for not prescribing ACEI:: Medical Contraindication HF Pt being discharged on ARBS for LVEF less than 40%?: Yes HF Pt with Afib discharged with Warfarin?: No Reason(s) for not prescribing Warfarin:: Not indicated HF Pt discharged on evidence-based Beta Bee:: No Reason(s) for not prescribing evidence-based Beta Bee:: Not indicated Plan Discharge Plan: D/C home today. Follow up in the office on 08/22/2017 at 10:00am.
[2017-08-17 15:56] VITALS: BP 123/63
[2017-08-17] MEDS: CALCIUM CARBONATE 500 MG TAB.CHEW PO PRN (16:31)
== END 2017-08-17 17:43 | disposition home or self-care (01) | DRG 292 ==
LOC: ER 06:20 → EH 09:28 → 3S 11:49
PROVIDERS: ADMIT Internal Medicine Geriatric Medicine; ATTEND Internal Medicine Geriatric Medicine
DX: I11.0 Hypertensive heart disease with heart failure (principal); L97.425 Non-pressure chronic ulcer of left heel and midfoot with muscle involvement without evidence of necrosis; I50.23 Acute on chronic systolic (congestive) heart failure; I25.10 Atherosclerotic heart disease of native coronary artery without angina pectoris; I73.9 Peripheral vascular disease, unspecified; E11.621 Type 2 diabetes mellitus with foot ulcer; M19.90 Unspecified osteoarthritis, unspecified site; G89.4 Chronic pain syndrome; I51.7 Cardiomegaly; E11.9 Type 2 diabetes mellitus without complications; E66.9 Obesity, unspecified; E78.00 Pure hypercholesterolemia, unspecified; K59.00 Constipation, unspecified; Z87.891 Personal history of nicotine dependence; Z95.1 Presence of aortocoronary bypass graft; Z82.49 Family history of ischemic heart disease and other diseases of the circulatory system; Z88.8 Allergy status to other drugs, medicaments and biological substances; Z86.73 Personal history of transient ischemic attack (TIA), and cerebral infarction without residual deficits; I25.2 Old myocardial infarction; Z79.4 Long term (current) use of insulin; Z79.82 Long term (current) use of aspirin; Z79.899 Other long term (current) drug therapy; Z68.36 Body mass index [BMI] 36.0-36.9, adult
CPT/HCPCS: 36415; 71045; 74018; 80053; 82550; 82553; 82565; 82962; 83735; 83880; 84484; 85025; 85027; 85610; 85730; 93005; 93010; 96374; 99285; J1650; J1815; J1940; J2405; J3490

== ENCOUNTER → 2017-09-05 | Outpatient (CLI) | payer MEDICARE, MEDICAID ==
[2017-09-05 10:03] LABS: ABSOLUTE EOSINOPHILS # (AUTO) 0.1 10^3/uL (0.0-0.6); ABSOLUTE LYMPHOCYTES (AUTO) 1.9 10^3/uL (0.5-4.7); ABSOLUTE MONOCYTES (AUTO) 0.8 10^3/uL (0.1-1.4); ABSOLUTE NEUT (AUTO) 5.4 10^3/uL (1.7-8.2); BASOPHILS % (AUTO) 0.4 % (0-2); EOSINOPHILS % (AUTO) 1.5 % (0-6); HEMATOCRIT 32.8 % (36.0-47.0); HEMOGLOBIN 10.5 g/dL (12.0-15.5); LYMPHOCYTES % (AUTO) 22.6 % (13-45); MEAN CORPUSCULAR HEMOGLOBIN 27.6 pg (27.0-33.4); MEAN CORPUSCULAR VOLUME 86 fl (80-97); MONOCYTES % (AUTO) 9.9 % (3-13); PLATELET COUNT 280 10^3/uL (150-450); RED BLOOD COUNT 3.81 10^6/uL (3.72-5.28); RED CELL DISTRIBUTION WIDTH 17.9 % (11.5-14.0); SEGMENTED NEUTROPHILS % (AUTO) 65.6 % (42-78); TOTAL CELLS COUNTED % (AUTO) 100 %; WHITE BLOOD COUNT 8.2 10^3/uL (4.0-10.5)
[2017-09-05 10:30] LABS: ALANINE AMINOTRANSFERASE 28 U/L (9-52); ALBUMIN 3.7 g/dL (3.5-5.0); ALKALINE PHOSPHATASE 244 U/L (38-126); ANION GAP 14 (5-19); ASPARTATE AMINO TRANSFERASE 23 U/L (14-36); BILIRUBIN,DIRECT 0.5 mg/dL (0.0-0.4); BLOOD UREA NITROGEN 12 mg/dL (7-20); C-REACTIVE PROTEIN 41.3 mg/L (<10.0); CALCIUM 9.7 mg/dL (8.4-10.2); CARBON DIOXIDE 30 mmol/L (22-30); CHLORIDE 104 mmol/L (98-107); GLUCOSE 93 mg/dL (75-110); POTASSIUM 4.4 mmol/L (3.6-5.0); SODIUM 147.8 mmol/L (137-145); TOTAL PROTEIN 8.1 g/dL (6.3-8.2)
[2017-09-05 10:40] LABS: ERYTHROCYTE SEDIMENTATION RATE 60 mm/hr (0-30)
--- NOTE | 2017-09-05 12:10 | RADIOLOGY REPORT (SQ) ---
EXAM DESCRIPTION: FOOT LEFT COMPLETE COMPLETED DATE/TIME: 09/05/2017 9:39 am REASON FOR STUDY: NON-PRS CHRONIC ULCER OTH PRT LEFT FOOT W FAT LAYER EXPOSED (L97.522) COMPARISON: 06/04/2017. NUMBER OF VIEWS: Three views left foot. LIMITATIONS: No technical limitations. FINDINGS: Generalized osteopenia. No displaced fracture, subluxation or dislocation. No joint effu noe. Pronounced dorsal forefoot subcutaneous swelling. No radiopaque foreign body. Marked general ized loss of tissue of the heel pad, thinning an apparent large ulcer here. No aggressive bone resor ption, although suspect some mild periostitis. Chronic calcaneal bone spur and Achilles spurring. OTHER: No other significant finding. IMPRESSION: Large plantar calcaneal ulceration with minimal underlying reactive bone changes but no aggressive erosion. TECHNICAL DOCUMENTATION: JOB ID: [id number] Reading location - IP/workstation name: [email or web address]
== END ==
LOC: RAD 09:04
PROVIDERS: ATTEND Preventive Medicine Undersea and Hyperbaric Medicine
DX: E11.621 Type 2 diabetes mellitus with foot ulcer (principal); L97.522 Non-pressure chronic ulcer of other part of left foot with fat layer exposed
CPT/HCPCS: 36415; 80053; 83036; 85025; 85652; 86140

== ENCOUNTER 2017-09-19 10:51 | Emergency (ER) | payer MEDICARE, MEDICAID ==
--- NOTE | 2017-09-19 11:50 | ER Document Report ---
ED Medical Screen (RME) - General Chief Complaint: Leg Swelling Stated Complaint: DIFFICULTY BREATHING Time Seen by Provider: 09/19/17 11:46 Mode of Arrival: Ambulatory Information source: Patient, [facility] Records Notes: I have greeted and performed a rapid an initial assessment of the patient. A comprehensive evaluation and assessment will be performed by another ED provider. Medical decision making, lab review if performed will bereviewed by the ED provider taking over that patient. HPI ;62-year-old female with history of congestive heart failure, previous ND, hypertension, hyperlipidemia presents with complaint of bilateral leg swelling, shortness of breath and chest pain that started 3 days prior to arrival. Patient reports that she has been taking her medication as prescribed. She has been taking Lasix as prescribed. Patient did have a recent hospitalization in August 2017 for congestive heart failure. PHYSICAL EXAMINATION: GENERAL: Well-appearing, well-nourished and in no acute distress. HEAD: Atraumatic, normocephalic. EYES: Pupils equal round extraocular movements intact, conjunctiva are normal. ENT: Nares patent NECK: Normal range of motion LUNGS: No respiratory distress Musculoskeletal: 2+ pitting edema bilaterally NEUROLOGICAL: Normal speech, normal gait. PSYCH: Normal mood, normal affect. SKIN: Warm, Dry, normal turgor, no rashes or lesions noted. TRAVEL OUTSIDE OF THE [place] IN LAST 30 DAYS: No - HPI Onset: Other Onset/Duration: Gradual Quality of pain: Throbbing Severity: Moderate Associated Symptoms: Chest pain, Shortness of breath Exacerbated by: Supine, Movement Relieved by: Denies Similar symptoms previously: Yes Recently seen / treated by doctor: Yes - Related Data Allergies/Adverse Reactions: pregabalin [From Lyrica] Allergy (Verified 09/19/17 10:53) Past Medical History - Social History Chew tobacco use (# tins/day): No Frequency of alcohol use: None Drug Abuse: None - Past Medical History Cardiac Medical History: Reports: Hx Congestive Heart Failure, Hx Coronary Artery Disease, Hx Heart Attack, Hx Hypercholesterolemia, Hx Hypertension, Hx Peripheral Vascular Disease Denies: Hx Atrial Fibrillation Pulmonary Medical History: Reports: Hx Bronchitis Denies: Hx Asthma, Hx COPD, Hx Pneumonia, Hx Tuberculosis Neurological Medical History: Reports: Hx Cerebrovascular Accident - 2007. Denies: Hx Seizures Endocrine Medical History: Reports: Hx Diabetes Mellitus Type 1, Hx Diabetes Mellitus Type 2 Renal/ Medical History: Denies: Hx End Stage Renal Disease, Hx Peritoneal Dialysis GI Medical History: Reports: Hx Diverticulitis - diverticulosis. Denies: Hx Gastroesophageal Reflux Disease, Hx Hiatal Hernia Musculoskeltal Medical History: Denies Hx Arthritis Skin Medical History: Denies Hx MRSA Psychiatric Medical History: Denies: Hx Bipolar Disorder, Hx Depression Past Surgical History: Reports: Hx Cardiac Surgery - Quadruple Bypass, Hx Coronary Artery Bypass Graft - July 31 2011, Hx Tonsillectomy, Hx Vascular Surgery. Denies: Hx Appendectomy, Hx Cardiac Catheterization, Hx Section, Hx Cholecystectomy, Hx Hysterectomy, Hx Mastectomy, Hx Tubal Ligation - Immunizations Immunizations up to date: No Hx Diphtheria, Pertussis, Tetanus Vaccination: Yes History of Influenza Vaccine for 02/2017 - 07/2017 Season: Yes Influenza Administration Date for 02/2017 - 07/2017 Season: 01/05/17 Physical Exam - Vital signs Vitals: Temp Pulse Resp BP Pulse Ox 98.6 F 81 16 178/78 H 94 09/19/17 11:09 09/19/17 11:09 09/19/17 11:09 09/19/17 11:09 09/19/17 11:09 Course - Vital Signs Vital signs: Temp Pulse Resp BP Pulse Ox 98.6 F 81 16 178/78 H 94 09/19/17 11:09 09/19/17 11:09 09/19/17 11:09 09/19/17 11:09 09/19/17 11:09
--- NOTE | 2017-09-19 13:01 | RADIOLOGY REPORT (SQ) ---
EXAM DESCRIPTION: CHEST 2 VIEWS COMPLETED DATE/TIME: 09/19/2017 12:26 pm REASON FOR STUDY: sob COMPARISON: 11/07/2016 EXAM PARAMETERS: NUMBER OF VIEWS: two views TECHNIQUE: Digital Frontal and Lateral radiographic views of the chest acquired. RADIATION DOSE: NA LIMITATIONS: Patient body habitus. FINDINGS: LUNGS AND PLEURA: No consolidation or large pleural effusion MEDIASTINUM AND HILAR STRUCTURES: Stable postoperative change. HEART AND VASCULAR STRUCTURES: Cardiomegaly. Some vascular congestion. BONES: Stable HARDWARE: Operative change mediastinum OTHER: No other significant finding. IMPRESSION: Cardiomegaly. Some vascular congestion. TECHNICAL DOCUMENTATION: JOB ID: [id number] [email or web address]- All Rights Reserved Reading location - IP/workstation name: [email or web address]
[2017-09-19 13:17] LABS: ABSOLUTE MONOCYTES (AUTO) 0.6 10^3/uL (0.1-1.4); ABSOLUTE NEUT (AUTO) 7.7 10^3/uL (1.7-8.2); BASOPHILS % (AUTO) 0.5 % (0-2); EOSINOPHILS % (AUTO) 0.5 % (0-6); HEMATOCRIT 32.2 % (36.0-47.0); HEMOGLOBIN 10.1 g/dL (12.0-15.5); LYMPHOCYTES % (AUTO) 10.8 % (13-45); MEAN CORPUSCULAR HEMOGLOBIN 27.4 pg (27.0-33.4); MEAN CORPUSCULAR HGB CONC 31.5 g/dL (32.0-36.0); MEAN CORPUSCULAR VOLUME 87 fl (80-97); MONOCYTES % (AUTO) 5.9 % (3-13); PLATELET COUNT 264 10^3/uL (150-450); RED BLOOD COUNT 3.71 10^6/uL (3.72-5.28); SEGMENTED NEUTROPHILS % (AUTO) 82.3 % (42-78); TOTAL CELLS COUNTED % (AUTO) 100 %; WHITE BLOOD COUNT 9.4 10^3/uL (4.0-10.5)
[2017-09-19 13:33] LABS: ALANINE AMINOTRANSFERASE 28 U/L (9-52); ALBUMIN 3.4 g/dL (3.5-5.0); ALKALINE PHOSPHATASE 335 U/L (38-126); ANION GAP 16 (5-19); ASPARTATE AMINO TRANSFERASE 17 U/L (14-36); BILIRUBIN,DIRECT 0.9 mg/dL (0.0-0.4); BILIRUBIN,TOTAL 1.3 mg/dL (0.2-1.3); BLOOD UREA NITROGEN 27 mg/dL (7-20); CALCIUM 9.5 mg/dL (8.4-10.2); CARBON DIOXIDE 23 mmol/L (22-30); CHLORIDE 106 mmol/L (98-107); CREATINE KINASE 49 U/L (30-135); GLUCOSE 389 mg/dL (75-110); POTASSIUM 4.8 mmol/L (3.6-5.0); SODIUM 144.8 mmol/L (137-145); TOTAL PROTEIN 7.9 g/dL (6.3-8.2)
[2017-09-19 13:39] LABS: CREATINE KINASE MB 0.67 ng/mL (<4.55)
[2017-09-19] MEDS ORDERED: FUROSEMIDE INJ/PF 40 MG/4 ML SDV IV ONE ×2 (14:17→18:00)
--- NOTE | 2017-09-19 15:27 | ER Document Report ---
ED Extremity Problem, Lower - General Chief Complaint: Leg Swelling Stated Complaint: DIFFICULTY BREATHING Time Seen by Provider: 09/19/17 11:46 Mode of Arrival: Ambulatory Information source: Patient Notes: Patient is a 62 year old female with CHF who presents to the ER today for 3 days of worsening bilateral lower extremity swelling as well as some shortness of breath on exertion. Patient was admitted for CHF exacerbation last month here. Patient does take 40 mg of Lasix twice a day and states that she has been compliant with that. She denies any chest pain, fever, chills or productive cough. She is not on oxygen at home. TRAVEL OUTSIDE OF THE [place] IN LAST 30 DAYS: No - Related Data Allergies/Adverse Reactions: pregabalin [From Lyrica] Allergy (Verified 09/19/17 10:53) Past Medical History - General Information source: Patient, [facility] Records - Social History Smoking Status: Former Smoker Chew tobacco use (# tins/day): No Frequency of alcohol use: None Drug Abuse: None Family History: Reviewed & Not Pertinent, CAD, Hyperlipidemia, Hypertension Patient has suicidal ideation: No Patient has homicidal ideation: No - Past Medical History Cardiac Medical History: Reports: Hx Congestive Heart Failure, Hx Coronary Artery Disease, Hx Heart Attack, Hx Hypercholesterolemia, Hx Hypertension, Hx Peripheral Vascular Disease Denies: Hx Atrial Fibrillation Pulmonary Medical History: Reports: Hx Bronchitis Denies: Hx Asthma, Hx COPD, Hx Pneumonia, Hx Tuberculosis Neurological Medical History: Reports: Hx Cerebrovascular Accident - 2007. Denies: Hx Seizures Endocrine Medical History: Reports: Hx Diabetes Mellitus Type 1, Hx Diabetes Mellitus Type 2 Renal/ Medical History: Denies: Hx End Stage Renal Disease, Hx Peritoneal Dialysis GI Medical History: Reports: Hx Diverticulitis - diverticulosis. Denies: Hx Gastroesophageal Reflux Disease, Hx Hiatal Hernia Musculoskeltal Medical History: Denies Hx Arthritis Skin Medical History: Denies Hx MRSA Psychiatric Medical History: Denies: Hx Bipolar Disorder, Hx Depression Past Surgical History: Reports: Hx Cardiac Surgery - Quadruple Bypass, Hx Coronary Artery Bypass Graft - July 31 2011, Hx Tonsillectomy, Hx Vascular Surgery. Denies: Hx Appendectomy, Hx Cardiac Catheterization, Hx Section, Hx Cholecystectomy, Hx Hysterectomy, Hx Mastectomy, Hx Tubal Ligation - Immunizations Immunizations up to date: No Hx Diphtheria, Pertussis, Tetanus Vaccination: Yes Hx Pneumococcal Vaccination: 02/04/11 Review of Systems - Review of Systems Constitutional: No symptoms reported EENT: No symptoms reported Cardiovascular: See HPI Respiratory: See HPI Gastrointestinal: No symptoms reported Genitourinary: No symptoms reported Female Genitourinary: No symptoms reported Musculoskeletal: No symptoms reported Skin: See HPI Hematologic/Lymphatic: No symptoms reported Neurological/Psychological: No symptoms reported Physical Exam - Vital signs Vitals: Temp Pulse Resp BP Pulse Ox 98.6 F 81 16 178/78 H 94 09/19/17 11:09 09/19/17 11:09 09/19/17 11:09 09/19/17 11:09 09/19/17 11:09 - Notes Notes: PHYSICAL EXAMINATION: GENERAL: Well-appearing and in no acute distress. HEAD: Atraumatic, normocephalic. EYES: Pupils equal round and reactive to light, extraocular movements intact, sclera anicteric, conjunctiva are normal. ENT: ear canals without erythema or foreign body, TMs pearly maloney with good bony landmarks, nares patent, oropharynx clear without exudates. Moist mucous membranes. poor dentition NECK: Normal range of motion, supple without lymphadenopathy LUNGS: CTAB and equal. No wheezes rales or rhonchi. HEART: Regular rate and rhythm without murmurs ABDOMEN: Soft, no tenderness. No guarding, no rebound BACK: no vertebral tenderness, normal ROM GI/: no CVA tenderness EXTREMITIES: Normal range of motion, 3+ pitting edema, decubitus ulcer noted to the left foot, no cyanosis. NEUROLOGICAL: Cranial nerves grossly intact. Normal sensory/motor exams. PSYCH: Normal mood, normal affect. SKIN: Warm, Dry, normal turgor, no rashes or lesions noted Course - Re-evaluation Re-evalutation: 09/19/17 15:39 Patient has a normal white blood cell count, chest x-ray reveals some mild vascular congestion and some cardiomegaly, no pneumonia, vitals are completely within normal limits here, patient is not hypoxic or tachypneic or tachycardic, requiring no oxygen at this time. Patient looks to be in no distress sitting very comfortably in the bed. BNP is elevated at over 4000, but when she was admitted here last month it was over 6000. Did speak with patient's primary care provider, Dr. Tafoya who states that she does not need to be admitted at this time but that he would like to see her in his office tomorrow and he wants me to give her 80 of IV Lasix here in the emergency department and tell her to go home and take her 40 mg of Lasix twice daily as instructed until following up with him. Patient is not happy about this news, she would like to be admitted, but understands. - Vital Signs Vital signs: Temp Pulse Resp BP Pulse Ox 98.6 F 81 16 178/78 H 94 09/19/17 11:09 09/19/17 11:09 09/19/17 11:09 09/19/17 11:09 09/19/17 11:09 - Laboratory Result Diagrams: 09/19/17 12:45 09/19/17 12:45 Laboratory results interpreted by me: 09/19/17 09/19/17 09/19/17 12:45 12:45 12:45 RBC 3.71 L Hgb 10.1 L Hct 32.2 L MCHC 31.5 L RDW 17.0 H Seg Neutrophils % 82.3 H Lymphocytes % 10.8 L BUN 27 H Glucose 389 H Direct Bilirubin 0.9 H Alkaline Phosphatase 335 H NT-Pro-B Natriuret Pep 4790 H Albumin 3.4 L Discharge - Discharge Clinical Impression: Peripheral edema Congestive heart failure (CHF) Qualifiers: Heart failure type: unspecified Heart failure chronicity: chronic Qualified Code(s): I50.9 - Heart failure, unspecified Condition: Stable Disposition: HOME, SELF-CARE Additional Instructions: Please take your Lasix as prescribed, 40 mg twice a day and call Dr. Tafoya's office for an appointment tomorrow. Return immediately for any new or worsening symptoms. Follow up with primary care provider, call tomorrow to make followup appointment. Referrals: STEPHAN TAFOYA MD [Primary Care Provider] - Follow up as needed
[2017-09-19 19:02] VITALS: BP 171/73
--- NOTE | 2017-09-19 22:47 | EKG REPORT ---
SEVERITY:- ABNORMAL ECG - SINUS RHYTHM VENTRICULAR BIGEMINY PROBABLE LEFT ATRIAL ABNORMALITY BORDERLINE LEFT AXIS DEVIATION NONSPECIFIC T ABNORMALITIES, LATERAL LEADS : Confirmed by: Irma Hitchcock 19-Sep-2017 19:46:38
== END 2017-09-19 19:35 | disposition home or self-care (01) ==
LOC: ER 10:51
DX: I50.9 Heart failure, unspecified (principal); R60.0 Localized edema; R06.02 Shortness of breath; I51.7 Cardiomegaly; R09.89 Other specified symptoms and signs involving the circulatory and respiratory systems; Z79.899 Other long term (current) drug therapy; Z87.891 Personal history of nicotine dependence; I25.10 Atherosclerotic heart disease of native coronary artery without angina pectoris; I25.2 Old myocardial infarction; I10 Essential (primary) hypertension; E11.9 Type 2 diabetes mellitus without complications; Z95.1 Presence of aortocoronary bypass graft
CPT/HCPCS: 93005; 99285; 96374; 36415; 82553; 82550; 85025; 80053; 84484; 83880; 71046; 93010; J1940

== ENCOUNTER 2017-09-28 08:14 | Emergency (ER) | payer MEDICARE, MEDICAID ==
--- NOTE | 2017-09-28 08:44 | ER Document Report ---
ED General - General Chief Complaint: Shortness Of Breath Stated Complaint: SHORTNESS OF BREATH Time Seen by Provider: 09/28/17 08:33 TRAVEL OUTSIDE OF THE [place] IN LAST 30 DAYS: No - HPI Notes: Patient is a 62-year-old female with a history of diabetes, hypertension, previous [place] with quadruple bypass, CHF who presents to the ED complaining of increased swelling and shortness of breath over the last 2 days. Patient states that she was here about a week and a half ago for similar symptoms and was given IV Lasix and sent home. Patient states she is otherwise eating and drinking without difficulties. She is continuing to urinate normally and have normal bowel movements. She is currently on Lasix 40 mg twice daily. She has no other concerns or complaints at this time. Denies any headache, fever, URI, sore throat, chest pain, palpitations, syncope, cough, wheeze, abdominal pain, nausea/vomiting/diarrhea, urinary retention, dysuria, hematuria, or rash. - Related Data Allergies/Adverse Reactions: pregabalin [From Lyrica] Allergy (Verified 09/19/17 10:53) Past Medical History - Social History Smoking Status: Never Smoker Family History: Reviewed & Not Pertinent, CAD, Hyperlipidemia, Hypertension - Past Medical History Cardiac Medical History: Reports: Hx Congestive Heart Failure, Hx Coronary Artery Disease, Hx Heart Attack, Hx Hypercholesterolemia, Hx Hypertension, Hx Peripheral Vascular Disease Denies: Hx Atrial Fibrillation Pulmonary Medical History: Reports: Hx Bronchitis Denies: Hx Asthma, Hx COPD, Hx Pneumonia, Hx Tuberculosis Neurological Medical History: Reports: Hx Cerebrovascular Accident - 2007. Denies: Hx Seizures Endocrine Medical History: Reports: Hx Diabetes Mellitus Type 1, Hx Diabetes Mellitus Type 2 Renal/ Medical History: Denies: Hx End Stage Renal Disease, Hx Peritoneal Dialysis GI Medical History: Reports: Hx Diverticulitis - diverticulosis. Denies: Hx Gastroesophageal Reflux Disease, Hx Hiatal Hernia Musculoskeltal Medical History: Denies Hx Arthritis Skin Medical History: Denies Hx MRSA Psychiatric Medical History: Denies: Hx Bipolar Disorder, Hx Depression Past Surgical History: Reports: Hx Cardiac Surgery - Quadruple Bypass, Hx Coronary Artery Bypass Graft - July 31 2011, Hx Tonsillectomy, Hx Vascular Surgery. Denies: Hx Appendectomy, Hx Cardiac Catheterization, Hx Section, Hx Cholecystectomy, Hx Hysterectomy, Hx Mastectomy, Hx Tubal Ligation - Immunizations Immunizations up to date: No Hx Diphtheria, Pertussis, Tetanus Vaccination: Yes Hx Pneumococcal Vaccination: 02/04/11 Review of Systems - Review of Systems -: Yes All other systems reviewed and negative Physical Exam - Vital signs Vitals: Temp Pulse Resp BP Pulse Ox 98.0 F 83 20 153/93 H 97 09/28/17 08:19 09/28/17 08:19 09/28/17 08:19 09/28/17 08:19 09/28/17 08:19 - Notes Notes: PHYSICAL EXAMINATION: GENERAL: Well-appearing, well-nourished and in no acute distress. A&Ox4. Answers questions appropriately. Vitals: HR 81, O2 98% on RA, RR 15, BP 137/89. EYES: Pupils equal round and reactive to light, extraocular movements intact, sclera anicteric, conjunctiva are normal. ENT: Nares patent and without discharge. oropharynx clear without exudates. No tonsilar hypertrophy or erythema. Moist mucous membranes. NECK: Normal range of motion, supple without lymphadenopathy LUNGS: Breath sounds clear to auscultation bilaterally and equal. No wheezes rales or rhonchi. HEART: Regular rate and rhythm without murmurs, rubs, gallops. ABDOMEN: Soft, nontender, nondistended abdomen. No guarding, no rebound. No masses appreciated. Normal bowel sounds present. No CVA tenderness bilaterally. Musculoskeletal: FROM to passive/active. Strength 5+/5. Extremities: 3+ pitting edema b/l from feet to prox tibia b/l. Peripheral pulses 1+ b/l LE. Capillary refill less than 3 seconds. Decubitus ulcer Left heal. NEUROLOGICAL: Cranial nerves grossly intact. Normal sensory, motor exams PSYCH: Normal mood, normal affect. SKIN: Warm, Dry, normal turgor, no rashes or lesions noted. Course - Re-evaluation Re-evalutation: 09/28/17 10:[address] jayna martines and discharge to home with f/u in his office next week. Patient is an afebrile, well-hydrated, 62-year-old female who presents to the ED with elevated BNP and pulmonary vascular congestion on x-ray. Vitals are acceptable. PE is otherwise unremarkable. Patient has no significant tachycardia, tachypnea, or hypoxia. She is nontoxic-appearing. She is tolerating p.o. without any difficulties. CBC, CMP, cardiac enzymes/EKG were generally unremarkable for any acute pathology. See chest x-ray result. I did review with Dr. anderson about admission, but he advised IV lasix and discharge to home with f/u. Low suspicion for any ACS, PE, pneumothorax, pericarditis, dissection, respiratory compromise, severe dehydration, sepsis, meningitis, or other systemic emergent condition at this time. Patient is aware that her condition can change from initial presentation and she needs to monitor symptoms closely and seek medical attention for any acute changes. Recommend conservative measures for symptoms. Recheck with your PCM in 2-3 days. Return to the ED with any worsening/concerning symptoms otherwise as reviewed in discharge. Patient is in agreement. - Vital Signs Vital signs: Temp Pulse Resp BP Pulse Ox 98.0 F 83 20 153/93 H 97 09/28/17 08:19 09/28/17 08:19 09/28/17 08:19 09/28/17 08:19 09/28/17 08:19 - Laboratory Result Diagrams: 09/28/17 09:44 09/28/17 09:44 Laboratory results interpreted by me: 09/28/17 09/28/17 09/28/17 09:44 09:44 09:44 RBC 3.61 L Hgb 10.0 L Hct 31.7 L MCHC 31.5 L RDW 17.2 H Sodium 146.4 H Chloride 110 H BUN 31 H Est GFR (Non-Af Amer) 54 L Glucose 250 H Direct Bilirubin 0.6 H Alkaline Phosphatase 328 H NT-Pro-B Natriuret Pep 3460 H Discharge - Discharge Clinical Impression: Shortness of breath, Peripheral edema Acute exacerbation of CHF (congestive heart failure) Qualifiers: Heart failure type: unspecified Qualified Code(s): I50.9 - Heart failure, unspecified Condition: Stable Disposition: HOME, SELF-CARE Additional Instructions: Maintain adequate fluid and food intake Take home medications as directed especially your Lasix Low sodium/fat diet Exercise regularly Weight control Monitor blood pressure daily and keep a log Monitor symptoms for any acute changes Recheck with your PCM in 2-3 days Consider a follow-up with cardiology Return to the ED with any worsening symptoms and/or development of fever, headache, chest pain, palpitations, syncope, shortness of breath, trouble breathing, abdominal pain, n/v/d, blood in stool/urine, loss of control of bowel /bladder, urinary retention, muscle weakness/paralysis, numbness/tingling, or other worsening symptoms that are concerning to you. Forms: Elevated Blood Pressure Referrals: STEPHAN ANDERSON MD [Primary Care Provider] - 10/01/17
[2017-09-28 10:12] LABS: ABSOLUTE EOSINOPHILS # (AUTO) 0.1 10^3/uL (0.0-0.6); ABSOLUTE MONOCYTES (AUTO) 0.5 10^3/uL (0.1-1.4); BASOPHILS % (AUTO) 0.4 % (0-2); EOSINOPHILS % (AUTO) 1.6 % (0-6); HEMATOCRIT 31.7 % (36.0-47.0); LYMPHOCYTES % (AUTO) 15.2 % (13-45); MEAN CORPUSCULAR HEMOGLOBIN 27.7 pg (27.0-33.4); MEAN CORPUSCULAR HGB CONC 31.5 g/dL (32.0-36.0); MEAN CORPUSCULAR VOLUME 88 fl (80-97); PLATELET COUNT 243 10^3/uL (150-450); RED BLOOD COUNT 3.61 10^6/uL (3.72-5.28); RED CELL DISTRIBUTION WIDTH 17.2 % (11.5-14.0); SEGMENTED NEUTROPHILS % (AUTO) 74.8 % (42-78); TOTAL CELLS COUNTED % (AUTO) 100 %; WHITE BLOOD COUNT 6.7 10^3/uL (4.0-10.5)
--- NOTE | 2017-09-28 10:33 | RADIOLOGY REPORT (SQ) ---
EXAM DESCRIPTION: CHEST SINGLE VIEW COMPLETED DATE/TIME: 09/28/2017 10:24 am REASON FOR STUDY: sob COMPARISON: 09/19/2017 EXAM PARAMETERS: NUMBER OF VIEWS: One view. TECHNIQUE: Single frontal radiographic view of the chest acquired. RADIATION DOSE: NA LIMITATIONS: None. FINDINGS: LUNGS AND PLEURA: No opacities, masses or pneumothorax. No pleural effusion. MEDIASTINUM AND HILAR STRUCTURES: No masses. Contour normal. HEART AND VASCULAR STRUCTURES: Cardiac silhouette is enlarged. There is mild pulmonary vascular prom inence. BONES: No acute findings. HARDWARE: Sternotomy wires. OTHER: No other significant finding. IMPRESSION: Cardiomegaly with pulmonary vascular prominence but no vitaliy CHF. TECHNICAL DOCUMENTATION: JOB ID: [id number] [employer]- All Rights Reserved Reading location - IP/workstation name: [email or web address]
[2017-09-28 10:34] LABS: ALANINE AMINOTRANSFERASE 18 U/L (9-52); ALBUMIN 3.5 g/dL (3.5-5.0); ALKALINE PHOSPHATASE 328 U/L (38-126); ANION GAP 12 (5-19); ASPARTATE AMINO TRANSFERASE 25 U/L (14-36); BILIRUBIN,DIRECT 0.6 mg/dL (0.0-0.4); BILIRUBIN,TOTAL 1.1 mg/dL (0.2-1.3); BLOOD UREA NITROGEN 31 mg/dL (7-20); CALCIUM 9.4 mg/dL (8.4-10.2); CARBON DIOXIDE 24 mmol/L (22-30); CHLORIDE 110 mmol/L (98-107); GLUCOSE 250 mg/dL (75-110); POTASSIUM 4.3 mmol/L (3.6-5.0); SODIUM 146.4 mmol/L (137-145); TOTAL PROTEIN 7.8 g/dL (6.3-8.2)
[2017-09-28 10:45] LABS: NT PRO BNP 3460 pg/mL (5-900)
[2017-09-28 10:46] LABS: TROPONIN I < 0.012 ng/mL
[2017-09-28] MEDS ORDERED: FUROSEMIDE INJ/PF 40 MG/4 ML SDV IV ONE (10:52)
[2017-09-28 11:30] VITALS: BP 122/78
--- NOTE | 2017-09-28 13:10 | EKG REPORT ---
SEVERITY:- ABNORMAL ECG - SINUS RHYTHM MULTIFORM VENTRICULAR PREMATURE COMPLEXES BORDERLINE LEFT AXIS DEVIATION NONSPECIFIC T ABNORMALITIES, LATERAL LEADS : Confirmed by: Yobany Marino MD 28-Sep-2017 13:09:46
== END 2017-09-28 13:49 | disposition home or self-care (01) ==
LOC: ER 08:14
DX: R06.02 Shortness of breath (principal); R60.9 Edema, unspecified; I50.9 Heart failure, unspecified; E11.9 Type 2 diabetes mellitus without complications; E78.00 Pure hypercholesterolemia, unspecified; I10 Essential (primary) hypertension; I25.2 Old myocardial infarction; Z95.1 Presence of aortocoronary bypass graft
CPT/HCPCS: 93005; 99285; 51702; 96374; 36415; 85025; 80053; 84484; 83880; 71045; 93010; J1940

== ENCOUNTER 2017-10-06 16:46 | Inpatient (IN) | payer MEDICARE, MEDICAID ==
--- NOTE | 2017-10-06 17:22 | ER Document Report ---
ED General - General Chief Complaint: Shortness Of Breath Stated Complaint: DIFFICULTY BREATHING Time Seen by Provider: 10/06/17 17:06 Mode of Arrival: Medic Information source: Patient, Office, [facility] Records Notes: 62-year-old female with congestive heart failure, coronary artery disease, peripheral vascular disease, hyperlipidemia, hypertension, diabetes presents via EMS from home with complaint of shortness of breath. Patient states shortness of breath started 1 week prior to arrival. Patient reports difficulty with laying flat, difficulty with minimal exertion. Patient reports a 15 pound weight gain last week. She denies fever, chills, chest pain. She does admit to epigastric abdominal pain. TRAVEL OUTSIDE OF THE [place] IN LAST 30 DAYS: No - HPI Onset: Last week Onset/Duration: Gradual, Worse Quality of pain: No pain Severity: None Associated symptoms: Shortness of breath. denies: Chest pain, Nonproductive cough, Productive cough Exacerbated by: Movement, Walking Relieved by: Sitting Similar symptoms previously: Yes Recently seen / treated by doctor: Yes - Dr. Moffett yesterday - Related Data Allergies/Adverse Reactions: pregabalin [From Lyrica] Allergy (Verified 10/06/17 17:00) Past Medical History - General Information source: Patient, [facility] Records - Social History Smoking Status: Never Smoker Frequency of alcohol use: None Drug Abuse: None Lives with: Family Family History: Reviewed & Not Pertinent, CAD, Hyperlipidemia, Hypertension - Past Medical History Cardiac Medical History: Reports: Hx Congestive Heart Failure, Hx Coronary Artery Disease, Hx Heart Attack, Hx Hypercholesterolemia, Hx Hypertension, Hx Peripheral Vascular Disease Denies: Hx Atrial Fibrillation Pulmonary Medical History: Reports: Hx Bronchitis Denies: Hx Asthma, Hx COPD, Hx Pneumonia, Hx Tuberculosis Neurological Medical History: Reports: Hx Cerebrovascular Accident - 2007. Denies: Hx Seizures Endocrine Medical History: Reports: Hx Diabetes Mellitus Type 1, Hx Diabetes Mellitus Type 2 Renal/ Medical History: Denies: Hx End Stage Renal Disease, Hx Peritoneal Dialysis GI Medical History: Reports: Hx Diverticulitis - diverticulosis. Denies: Hx Gastroesophageal Reflux Disease, Hx Hiatal Hernia Musculoskeltal Medical History: Denies Hx Arthritis Skin Medical History: Denies Hx MRSA Psychiatric Medical History: Denies: Hx Bipolar Disorder, Hx Depression Past Surgical History: Reports: Hx Cardiac Surgery - Quadruple Bypass, Hx Coronary Artery Bypass Graft - July 31 2011, Hx Tonsillectomy, Hx Vascular Surgery. Denies: Hx Appendectomy, Hx Cardiac Catheterization, Hx Section, Hx Cholecystectomy, Hx Hysterectomy, Hx Mastectomy, Hx Tubal Ligation - Immunizations Immunizations up to date: No Hx Diphtheria, Pertussis, Tetanus Vaccination: Yes Hx Pneumococcal Vaccination: 02/04/11 Review of Systems - Review of Systems Notes: REVIEW OF SYSTEMS: CONSTITUTIONAL : Denies fever, chills, or sweats. Denies recent illness. Denies weight loss, recent hospitalizations. EENT: Denies visula changes, eye pain. Denies nasal or sinus congestion or discharge. Denies sore throat, oral lesions, difficulty swallowing. CARDIOVASCULAR: Denies chest pain. Denies palpitations or racing or irregular heart beat. Denies lower extremity edema. RESPIRATORY: Denies cough, cold, or chest congestion. GASTROINTESTINAL: Denies nausea, vomiting, or diarrhea. Denies blood in vomitus, stools, or per rectum. Denies black, tarry stools. Denies constipation. GENITOURINARY: Denies difficulty urinating, painful urination, burning, frequency, blood in urine, or vaginal discharge. MUSCULOSKELETAL: Denies back or neck pain or stiffness. Denies joint pain or swelling. SKIN: Denies rash, lesions or sores. HEMATOLOGIC : Denies easy bruising or bleeding. LYMPHATIC: Denies swollen, enlarged glands. NEUROLOGICAL: Denies confusion or altered mental status. Denies passing out or loss of consciousness. Denies dizziness or lightheadedness. Denies headache. Denies weakness or paralysis or loss of use of either side. Denies problems with gait or speech. Denies sensory loss, numbness, or tingling. Denies seizures. PSYCHIATRIC: Denies anxiety or stress. Denies depression, suicidal ideation, or homicidal ideation. Physical Exam - Vital signs Vitals: Resp BP Pulse Ox 26 H 184/92 H 94 10/06/17 16:52 10/06/17 16:52 10/06/17 16:52 - Notes Notes: PHYSICAL EXAMINATION: GENERAL: Obese, well-appearing, well-nourished and in no acute distress. HEAD: Atraumatic, normocephalic. EYES: Pupils equal round and reactive to light, extraocular movements intact, conjunctiva are normal. ENT: Nares patent, oropharynx clear without exudates. Moist mucous membranes. NECK: Normal range of motion, supple without lymphadenopathy LUNGS: Diminished breath sounds in the right and left lower lung field. No wheezes rales or rhonchi. No accessory muscle use. HEART: Regular rate and rhythm without murmurs ABDOMEN: Soft, nontender, nondistended abdomen. No guarding, no rebound. No masses appreciated. Female : deferred Musculoskeletal: Normal range of motion, 2+ pitting edema. No cyanosis. NEUROLOGICAL: Cranial nerves grossly intact. Normal speech, normal gait. Normal sensory, motor exams PSYCH: Normal mood, normal affect. SKIN: Warm, Dry, normal turgor, no rashes or lesions noted. Course - Re-evaluation Re-evalutation: Laboratory 10/06/17 10/06/17 10/06/17 16:57 16:57 16:57 WBC 7.0 RBC 3.91 Hgb 11.2 L Hct 34.5 L MCV 88 MCH 28.7 MCHC 32.5 RDW 17.9 H Plt Count 253 Seg Neutrophils % 70.7 Lymphocytes % 17.8 Monocytes % 10.2 Eosinophils % 0.5 Basophils % 0.8 Absolute Neutrophils 4.9 Absolute Lymphocytes 1.2 Absolute Monocytes 0.7 Absolute Eosinophils 0.0 Absolute Basophils 0.1 Sodium 143.7 Potassium 3.9 Chloride 104 Carbon Dioxide 29 Anion Gap 11 BUN 7 Creatinine 0.60 Est GFR ( Amer) > 60 Est GFR (Non-Af Amer) > 60 Glucose 275 H Calcium 9.6 Total Bilirubin 2.4 H Direct Bilirubin 1.3 H Neonat Total Bilirubin Not Reportable Neonat Direct Bilirubin Not Reportable Neonat Indirect Bili Not Reportable AST 37 H ALT 10 Alkaline Phosphatase 308 H Creatine Kinase 45 CK-MB (CK-2) 0.41 Troponin I < 0.012 NT-Pro-B Natriuret Pep 9830 H Total Protein 8.9 H Albumin 3.9 Lipase 10/06/17 16:57 WBC RBC Hgb Hct MCV MCH MCHC RDW Plt Count Seg Neutrophils % Lymphocytes % Monocytes % Eosinophils % Basophils % Absolute Neutrophils Absolute Lymphocytes Absolute Monocytes Absolute Eosinophils Absolute Basophils Sodium Potassium Chloride Carbon Dioxide Anion Gap BUN Creatinine Est GFR ( Amer) Est GFR (Non-Af Amer) Glucose Calcium Total Bilirubin Direct Bilirubin Neonat Total Bilirubin Neonat Direct Bilirubin Neonat Indirect Bili AST ALT Alkaline Phosphatase Creatine Kinase CK-MB (CK-2) Troponin I NT-Pro-B Natriuret Pep Total Protein Albumin Lipase 15.6 L Chest X-Ray 10/06/17 17:14 IMPRESSION: CARDIAC ENLARGEMENT. VASCULAR CONGESTION. Abdomen Ultrasound 10/06/17 18:23 IMPRESSION: 1. Hepatomegaly. Trace ascites. 2. Cholelithiasis. No evidence of acute cholecystitis. 10/06/17 19:47 62-year-old female with congestive heart failure, coronary artery disease, peripheral vascular disease, hyperlipidemia, hypertension, diabetes presents via EMS from home with complaint of shortness of breath. Patient states shortness of breath started 1 week prior to arrival. Patient reports difficulty with laying flat, difficulty with minimal exertion. Patient reports a 15 pound weight gain last week. She did see her primary care physician Dr. Moffett yesterday who added a new medication. Upon arrival patient was placed on cardiac monitor technician and EKG was obtained which showed the patient to be in normal sinus rhythm at a rate of 86. Patient is markedly hypertensive with blood pressures of 196/111. Patient is afebrile, not tachypneic and 95% on room air. Bedside ultrasound was performed to assess pericardial effusion which was absent. Patient does have poor global function. Bedside ultrasound of the lungs showed multiple B-lines indicative of interstitial edema. Chest x- ray does show cardiomegaly and vascular congestion. Ultrasound of the right upper quadrant was obtained due to the patient's report of abdominal pain this was significant for cholelithiasis but not cholecystitis. Patient was placed on CPAP and nitro paste was placed. She does report some improvement of shortness of breath but blood pressure remains elevated. Nitro drip will be initiated. She is admitted to the hospitalist for CHF exacerbation, hypertensive urgency. 10/06/17 21:08 - Vital Signs Vital signs: Temp Pulse Resp BP Pulse Ox 98.7 F 20 184/92 H 100 10/06/17 17:00 10/06/17 18:25 10/06/17 16:52 10/06/17 18:25 - Laboratory Result Diagrams: 10/06/17 16:57 10/06/17 16:57 Laboratory results interpreted by me: 10/06/17 10/06/17 10/06/17 16:57 16:57 16:57 Hgb 11.2 L Hct 34.5 L RDW 17.9 H ABG pO2 ABG HCO3 ABG Total CO2 ABG O2 Saturation Glucose 275 H Total Bilirubin 2.4 H Direct Bilirubin 1.3 H AST 37 H Alkaline Phosphatase 308 H NT-Pro-B Natriuret Pep 9830 H Total Protein 8.9 H Lipase 10/06/17 10/06/17 16:57 19:36 Hgb Hct RDW ABG pO2 53.5 L ABG HCO3 28.2 H ABG Total CO2 29.5 H ABG O2 Saturation 89.2 L Glucose Total Bilirubin Direct Bilirubin AST Alkaline Phosphatase NT-Pro-B Natriuret Pep Total Protein Lipase 15.6 L - Diagnostic Test Radiology reviewed: Image reviewed, Reports reviewed - EKG Interpretation by [place] EKG shows normal: Sinus rhythm Rate: Normal Rhythm: NSR Procedures - Ultrasound/Bedside Ultrasound/Bedside Time completed: 18:24 - Cardiac ultrasound was performed to evaluate for pericardial effusion. No pericardial effusion was seen. Patient does have poor contractility. Lungs do have multiple B-lines which could be indicative of interstitial fluid. Ultrasound: Gallbladder stones Critical Care Note - Critical Care Note Total time excluding time spent on procedures (mins): 35 - minutes of critical care time spent in direct contact evaluating and reevaluating the patient, treating symptoms, reviewing labs and studies and speaking with family and consultants excluding any procedures Discharge - Discharge Clinical Impression: Respiratory distress, Hypertensive urgency, Peripheral edema, Acute on chronic systolic CHF (congestive heart failure) CHF (congestive heart failure) Qualifiers: Heart failure type: unspecified Heart failure chronicity: acute on chronic Qualified Code(s): I50.9 - Heart failure, unspecified Condition: Good Disposition: ADMITTED INPATIENT Admitting Provider: Hospitalist Unit Admitted: [facility]
[2017-10-06] MEDS ORDERED: FUROSEMIDE INJ/PF 40 MG/4 ML SDV IV ONE (17:23)
[2017-10-06] MEDS ORDERED: NITROGLYCERIN 2% OINTMENT 1 GM PACKET TP ONE (17:23)
[2017-10-06 17:52] LABS: ABSOLUTE BASOPHILS # (AUTO) 0.1 10^3/uL (0.0-0.2); ABSOLUTE LYMPHOCYTES (AUTO) 1.2 10^3/uL (0.5-4.7); ABSOLUTE MONOCYTES (AUTO) 0.7 10^3/uL (0.1-1.4); ABSOLUTE NEUT (AUTO) 4.9 10^3/uL (1.7-8.2); BASOPHILS % (AUTO) 0.8 % (0-2); EOSINOPHILS % (AUTO) 0.5 % (0-6); HEMATOCRIT 34.5 % (36.0-47.0); HEMOGLOBIN 11.2 g/dL (12.0-15.5); LYMPHOCYTES % (AUTO) 17.8 % (13-45); MEAN CORPUSCULAR HEMOGLOBIN 28.7 pg (27.0-33.4); MEAN CORPUSCULAR HGB CONC 32.5 g/dL (32.0-36.0); MEAN CORPUSCULAR VOLUME 88 fl (80-97); MONOCYTES % (AUTO) 10.2 % (3-13); PLATELET COUNT 253 10^3/uL (150-450); RED BLOOD COUNT 3.91 10^6/uL (3.72-5.28); RED CELL DISTRIBUTION WIDTH 17.9 % (11.5-14.0); SEGMENTED NEUTROPHILS % (AUTO) 70.7 % (42-78); TOTAL CELLS COUNTED % (AUTO) 100 %
[2017-10-06 18:02] LABS: ALANINE AMINOTRANSFERASE 10 U/L (9-52); ALBUMIN 3.9 g/dL (3.5-5.0); ALKALINE PHOSPHATASE 308 U/L (38-126); ANION GAP 11 (5-19); ASPARTATE AMINO TRANSFERASE 37 U/L (14-36); BILIRUBIN,DIRECT 1.3 mg/dL (0.0-0.4); BILIRUBIN,TOTAL 2.4 mg/dL (0.2-1.3); BLOOD UREA NITROGEN 7 mg/dL (7-20); CALCIUM 9.6 mg/dL (8.4-10.2); CARBON DIOXIDE 29 mmol/L (22-30); CHLORIDE 104 mmol/L (98-107); CREATINE KINASE 45 U/L (30-135); GLUCOSE 275 mg/dL (75-110); POTASSIUM 3.9 mmol/L (3.6-5.0); SODIUM 143.7 mmol/L (137-145); TOTAL PROTEIN 8.9 g/dL (6.3-8.2)
[2017-10-06 18:12] LABS: CREATINE KINASE MB 0.41 ng/mL (<4.55); NT PRO BNP 9830 pg/mL (5-900)
[2017-10-06 18:15] LABS: TROPONIN I < 0.012 ng/mL
[2017-10-06] MEDS ORDERED: MORPHINE SULFATE 10 MG/ML INJ IV ONE (18:22)
[2017-10-06] MEDS ORDERED: ONDANSETRON HCL INJ/PF 4 MG/2 ML SDV IV ONE (18:22)
--- NOTE | 2017-10-06 18:26 | RADIOLOGY REPORT (SQ) ---
EXAM DESCRIPTION: CHEST SINGLE VIEW COMPLETED DATE/TIME: 10/06/2017 6:10 pm REASON FOR STUDY: sob COMPARISON: 09/28/2017 NUMBER OF VIEWS: One view. TECHNIQUE: Single frontal radiographic view of the chest acquired. LIMITATIONS: None. FINDINGS: LUNGS AND PLEURA: No opacities, masses or pneumothorax. No pleural effusion. MEDIASTINUM AND HILAR STRUCTURES: No masses or contour abnormality. HEART AND VASCULATURE: Cardiac enlargement. Vascular congestion. BONES: No acute findings. HARDWARE: CABG. OTHER: No other significant finding. IMPRESSION: CARDIAC ENLARGEMENT. VASCULAR CONGESTION. TECHNICAL DOCUMENTATION: JOB ID: [id number] [employer]- All Rights Reserved Reading location - IP/workstation name: [email or web address]
[2017-10-06 18:39] LABS: LIPASE 15.6 U/L (23-300)
--- NOTE | 2017-10-06 19:07 | RADIOLOGY REPORT (SQ) ---
EXAM DESCRIPTION: U/S ABDOMEN LIMITED W/O DOP COMPLETED DATE/TIME: 10/06/2017 6:54 pm REASON FOR STUDY: ruq tenderness COMPARISON: None. TECHNIQUE: Dynamic and static grayscale images acquired of the right upper quadrant and recorded on PACS. Additional selected color Doppler and spectral images recorded. LIMITATIONS: Study limited due to acoustical interference from body habitus and from air in the anjali l. FINDINGS: PANCREAS: Obscured. LIVER: Hepatomegaly. Echotexture is coarse with increased echogenicity consistent with fatty infiltr ation. No masses. LIVER VASCULATURE: Normal directional flow of the main portal vein and hepatic veins. GALLBLADDER: Gallstone(s). No pericholecystic fluid. No wall thickening. ULTRASOUND-DETECTED HOOD'S SIGN: Negative. INTRAHEPATIC DUCTS AND COMMON DUCT: CBD and intrahepatic ducts normal caliber. No filling defects. INFERIOR VENA CAVA: Not visualized. AORTA: Mostly obscured. RIGHT KIDNEY: Normal size. Normal echogenicity. No solid or suspicious masses. No hydronephros is. No calcifications. PERITONEAL CAVITY AND RIGHT PLEURAL SPACE: Trace ascites. OTHER: No other significant finding. IMPRESSION: 1. Hepatomegaly. Trace ascites. 2. Cholelithiasis. No evidence of acute cholecystitis. TECHNICAL DOCUMENTATION: JOB ID: [id number] [employer]- All Rights Reserved Reading location - IP/workstation name: [email or web address]
[2017-10-06] MEDS ORDERED: NITROGLYCERIN/D5W 50 MG/250 ML RTUINJ IV PRN (19:45)
[2017-10-06 19:53] LABS: ARTERIAL BLOOD BASE EXCESS 3.9 mmol/L; ARTERIAL BLOOD H2CO3 1.25 mmol/L (1.05-1.35); ARTERIAL BLOOD HCO3 28.2 mmol/L (20-26); ARTERIAL BLOOD O2 SATURATION 89.2 % (94-98); ARTERIAL BLOOD PCO2 41.4 mmHg (35-45); ARTERIAL BLOOD PH 7.45 (7.35-7.45); ARTERIAL BLOOD PO2 53.5 mmHg (80-100); ARTERIAL BLOOD TOTAL CO2 29.5 mmol/L (21-25)
[2017-10-06 20:01] LABS: ARTERIAL BLOOD FIO2 30%
[2017-10-06] MEDS ORDERED: PROMETHAZINE HCL 25 MG TABLET PO PRN (21:14)
--- NOTE | 2017-10-06 21:14 | PDOC H&P ---
History of Present Illness Admission Date/PCP: 10/06/17 20:49 STEPHAN MICHELET History of Present Illness: JAVIER BURGER is a 62 year old black female patient with past medical history of CHF, CAD, history of [place], PAD, HTN, HLD and diabetes mellitus, who presents with several weeks history of progressive shortness of breath and difficulty of ambulation at her baseline patient ambulates with the help of walker.. Initially her shortness of breath was precipitated with exertion now she has shortness of breath at rest also. Patient claims that she has been taking her heart medications regularly and appropriately. She denies taking over-the- counter NSAID. She denies eating salty diet. Her initial workup shows BNP of 10,000 and chest x-ray shows pulmonary vascular congestion. At ER her blood pressure found 196/116 and she has been started on nitroglycerin drip. Patient denies chills, fever, cough, chest pain, palpitation, diaphoresis, nausea, vomiting, diarrhea, dysuria or urgency. No headache dizziness or blurring of vision. She has bilateral leg swelling, orthopnea, PND. Past Medical History Cardiac Medical History: Reports: Congestive Heart Failure, Coronary Artery Disease, Myocardial Infarction, Hyperlipidema, Hypertension, Peripheral Vascular Disease Denies: Atrial Fibrillation Pulmonary Medical History: Reports: Bronchitis Denies: Asthma, Chronic Obstructive Pulmonary Disease (COPD), Pneumonia, Tuberculosis Neurological Medical History: Denies: Seizures Endocrine Medical History: Reports: Diabetes Mellitus Type 1, Diabetes Mellitus Type 2 Renal/ Medical History: Denies: End Stage Renal Disease GI Medical History: Reports: Diverticulitis - diverticulosis Denies: Gastroesophageal Reflux Disease, Hiatal Hernia Musculoskeltal Medical History: Denies: Arthritis Psychiatric Medical History: Denies: Bipolar Disorder, Depression Hematology: Denies: Anemia, Hemophilia, Sickle Cell Disease Past Surgical History Past Surgical History: Reports: Coronary Artery Bypass Graft - July 31 2011, Tonsillectomy, Vascular Surgery Denies: Amputation, Appendectomy, Cardiac Catheterization, Section, Cholecystectomy, Hysterectomy, Mastectomy, Tubal Ligation Social History Lives with: Family Smoking Status: Never Smoker Frequency of Alcohol Use: None Hx Recreational Drug Use: No Drugs: None Hx Prescription Drug Abuse: No - Advance Directive Resuscitation Status: Full Code Family History Family History: Reviewed & Not Pertinent, CAD, Hyperlipidemia, Hypertension Parental Family History Reviewed: Yes Children Family History Reviewed: Yes Sibling(s) Family History Reviewed.: Yes Medication/Allergy Home Medications: Clopidogrel Bisulfate [Plavix 75 mg Tablet] 75 mg PO DAILY 06/19/17 Furosemide [Lasix 40 mg Tablet] 40 mg PO BID 06/19/17 Amlodipine Besylate [Norvasc 10 mg Tablet] 10 mg PO DAILY 08/09/17 Oxycodone HCl 5 mg PO Q6HP PRN 08/09/17 Pravastatin Sodium [Pravachol] 20 mg PO QHS 08/09/17 Sacubitril/Valsartan [Entresto 97 mg-103 mg Tablet] 1 tab PO BID 08/09/17 Carvedilol [Carvedilol] 6.25 mg PO BID 10/06/17 Gabapentin [Gabapentin] 300 mg PO QID 10/06/17 Hydralazine HCl 50 mg PO TID 10/06/17 Isosorbide Mononitrate [Ismo 20 mg Tablet] 20 mg PO Q8H 10/06/17 Allergies/Adverse Reactions: pregabalin [From Lyrica] Allergy (Verified 10/06/17 17:00) Review of Systems Constitutional: PRESENT: as per HPI Eyes: PRESENT: as per HPI Ears: PRESENT: as per HPI Cardiovascular: PRESENT: as per HPI, dyspnea on exertion, edema Neurological: PRESENT: as per HPI Psychiatric: PRESENT: as per HPI Physical Exam Vital Signs: Temp Pulse Resp BP Pulse Ox 98.7 F 20 184/92 H 100 10/06/17 17:00 10/06/17 18:25 10/06/17 16:52 10/06/17 18:25 General appearance: PRESENT: other - Moderate respiratory distress Head exam: PRESENT: atraumatic, normocephalic Eye exam: PRESENT: conjunctiva pink, EOMI, PERRLA. ABSENT: scleral icterus Neck exam: PRESENT: JVD Respiratory exam: PRESENT: decreased breath sounds Cardiovascular exam: PRESENT: RRR. ABSENT: diastolic murmur, rubs, systolic murmur GI/Abdominal exam: PRESENT: normal bowel sounds, soft. ABSENT: distended, guarding, mass, organolmegaly, rebound, tenderness Extremities exam: PRESENT: +2 edema Neurological exam: PRESENT: alert, awake, oriented to time, oriented to situation Psychiatric exam: PRESENT: normal mood Results Impressions: Chest X-Ray 10/06/17 17:14 IMPRESSION: CARDIAC ENLARGEMENT. VASCULAR CONGESTION. Abdomen Ultrasound 10/06/17 18:23 IMPRESSION: 1. Hepatomegaly. Trace ascites. 2. Cholelithiasis. No evidence of acute cholecystitis. Assessment & Plan - Diagnosis (1) Acute on chronic systolic congestive heart failure, NYHA class 3 Is this a current diagnosis for this admission?: Yes Plan: Patient has been started on Lasix 80 mg IV every 12 hours. Has been on BiPAP Lisinopril 20 mg p.o. daily, Coreg 25 mg twice a day, digoxin 0.125 mg p.o. 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 (2) Hypertensive emergency Is this a current diagnosis for this admission?: Yes Plan: Patient has been started on nitroglycerin drip. (3) Diabetes mellitus type 2 in obese Is this a current diagnosis for this admission?: Yes Plan: Patient has been on sliding scale (4) Hyperlipidemia Qualifiers: Hyperlipidemia type: unspecified Qualified Code(s): E78.5 - Hyperlipidemia , unspecified Is this a current diagnosis for this admission?: Yes Plan: Continue statin (5) Coronary artery disease Qualifiers: Coronary Disease-Associated Artery/Lesion type: [place] artery Is this a current diagnosis for this admission?: Yes Plan: No angina. Continue her home medications. - Time Time Spent: 30 to 50 Minutes - Inpatient Certification Medical Necessity: Need Close Monitoring Due to Risk of Patient Decompensation, Need For Continuous Telemetry Monitoring
[2017-10-06] MEDS ORDERED: DIGOXIN 0.125 MG TABLET PO ONE (21:30)
[2017-10-06] MEDS ORDERED: LISINOPRIL 10 MG TABLET PO ONE (21:30)
[2017-10-06] MEDS ORDERED: CARVEDILOL 12.5 MG TABLET PO SCH (22:00)
[2017-10-06] MEDS: HEPARIN SOD (PORCINE) 5,000 UNIT/ML 1 ML SYRINGE SUBCUT SCH (22:11)
[2017-10-06] MEDS: FUROSEMIDE INJ/PF 100 MG/10 ML SDV IV SCH (22:31)
[2017-10-07] MEDS: HEPARIN SOD (PORCINE) 5,000 UNIT/ML 1 ML SYRINGE SUBCUT SCH ×3 (06:23→22:13)
[2017-10-07] MEDS: LANSOPRAZOLE 30 MG TAB.RAP.DR PO SCH ×2 (06:24→06:28)
--- NOTE | 2017-10-07 08:23 | EKG REPORT ---
SEVERITY:- ABNORMAL ECG - SINUS RHYTHM PROBABLE LVH WITH SECONDARY REPOL ABNRM : Confirmed by: Irma Hitchcock 07-Oct-2017 08:22:08
[2017-10-07] MEDS ORDERED: DEXTROSE 40% GEL 15 GM TUBE X 2 PO PRN (08:37)
[2017-10-07] MEDS ORDERED: DEXTROSE 50%-WATER SYRINGE 25 GM/50 ML DOSE IV PRN (08:37)
[2017-10-07] MEDS ORDERED: DEXTROSE 50%-WATER SYRINGE 12.5 GM/25 ML DOSE IV PRN (08:37)
[2017-10-07] MEDS ORDERED: GLUCAGON,HUMAN RECOMB 1 MG INJ IM PRN (08:37)
[2017-10-07] MEDS ORDERED: DEXTROSE 40% GEL 15 GM TUBE PO PRN (08:37)
[2017-10-07 09:52] LABS: ANION GAP 8 (5-19); BLOOD UREA NITROGEN 8 mg/dL (7-20); CARBON DIOXIDE 30 mmol/L (22-30); CHLORIDE 102 mmol/L (98-107); GLUCOSE 225 mg/dL (75-110); POTASSIUM 3.8 mmol/L (3.6-5.0)
[2017-10-07] MEDS ORDERED: LISINOPRIL 10 MG TABLET PO SCH (10:00)
--- NOTE | 2017-10-07 11:05 | PDOC PROGRESS REPORT ---
Subjective Progress Note for:: 10/07/17 Subjective:: This is a 62-year-old female patient of Dr. Moffett admitted by the hospitalist service last night because of the hypertension emergency and acute congestive heart failure pt was started on nitro drip and start the patient on IV Lasix Since when I saw it this morning and transferred to Dr. Moffett service Patient's denied any chest pain denied any shortness of breath And is more sleepy and according to the nursing staff patient did not sleep last night Patient otherwise denied any headache denied any weakness Patient is currently on a nitro drip 15 Did not get her regular medications for blood pressures Reason For Visit: HEART FAILURE Physical Exam Vital Signs: Temp Pulse Resp BP Pulse Ox 98.5 F 68 16 146/59 H 98 10/07/17 08:32 10/07/17 08:32 10/07/17 08:32 10/07/17 08:32 10/07/17 08:32 Intake & Output 10/06/17 10/07/17 10/08/17 06:59 06:59 06:59 Output Total 4400 Balance -4400 General appearance: PRESENT: no acute distress, well-developed, well-nourished Head exam: PRESENT: atraumatic, normocephalic Eye exam: PRESENT: conjunctiva pink, EOMI, PERRLA. ABSENT: scleral icterus Ear exam: PRESENT: normal external ear exam Mouth exam: PRESENT: moist, tongue midline Neck exam: PRESENT: full ROM. ABSENT: carotid bruit, JVD, lymphadenopathy, thyromegaly Respiratory exam: PRESENT: decreased breath sounds Cardiovascular exam: PRESENT: RRR. ABSENT: diastolic murmur, rubs, systolic murmur Pulses: PRESENT: normal dorsalis pedis pul, +2 pedal pulses bilateral Vascular exam: PRESENT: normal capillary refill GI/Abdominal exam: PRESENT: normal bowel sounds, soft. ABSENT: distended, guarding, mass, organolmegaly, rebound, tenderness Rectal exam: PRESENT: deferred Extremities exam: PRESENT: pedal edema Neurological exam: PRESENT: alert, awake, oriented to person, oriented to place , oriented to time, oriented to situation, CN II-XII grossly intact. ABSENT: motor sensory deficit Psychiatric exam: PRESENT: appropriate affect, normal mood. ABSENT: homicidal ideation, suicidal ideation Skin exam: PRESENT: dry, intact, warm. ABSENT: cyanosis, rash Results Laboratory Results: 10/07/17 08:40 10/07/17 08:40 Sodium 140.0 Potassium 3.8 Chloride 102 Carbon Dioxide 30 Anion Gap 8 BUN 8 Creatinine 0.61 Est GFR ( Amer) > 60 Est GFR (Non-Af Amer) > 60 Glucose 225 H Calcium 9.0 Impressions: Chest X-Ray 10/06/17 17:14 IMPRESSION: CARDIAC ENLARGEMENT. VASCULAR CONGESTION. Abdomen Ultrasound 10/06/17 18:23 IMPRESSION: 1. Hepatomegaly. Trace ascites. 2. Cholelithiasis. No evidence of acute cholecystitis. Assessment & Plan - Diagnosis (1) Acute on chronic systolic CHF (congestive heart failure) Is this a current diagnosis for this admission?: Yes (2) Coronary artery disease Qualifiers: Coronary Disease-Associated Artery/Lesion type: [place] artery Is this a current diagnosis for this admission?: Yes (3) Diabetes mellitus type 2 in obese Is this a current diagnosis for this admission?: Yes (4) Hyperlipidemia Qualifiers: Hyperlipidemia type: unspecified Qualified Code(s): E78.5 - Hyperlipidemia , unspecified Is this a current diagnosis for this admission?: Yes (5) Hypertensive urgency Is this a current diagnosis for this admission?: Yes (6) Abdominal pain Qualifiers: Abdominal location: generalized Qualified Code(s): R10.84 - Generalized abdominal pain Is this a current diagnosis for this admission?: Yes Plan: Ultrasound all stable (7) Anemia of chronic disease Is this a current diagnosis for this admission?: Yes (8) PVD (peripheral vascular disease) Is this a current diagnosis for this admission?: Yes (9) Renal insufficiency Is this a current diagnosis for this admission?: Yes - Time Time Spent with patient: 15-24 minutes Medications reviewed and adjusted accordingly: Yes Anticipated discharge: Other Within: Other - Inpatient Certification Medical Necessity: Need Close Monitoring Due to Risk of Patient Decompensation Post Hospital Care: D/C Manager Domestic Documentation - Plan Summary Plan Summary: Continues IV Lasix Try to wean her from the nitro drip and restart the patient's p.o. blood pressure medications Consult the cardiology with this ongoing significant congestive heart failure with EF is only 35% Ultrasound of the abdomen suggests a gallstone but no other acute finding Continues to monitor the patient The CT of the head with some hypertension urgency in patients currently more sleepy He also get the ABG
[2017-10-07] MEDS ORDERED: AMLODIPINE BESYLATE 10 MG TABLET PO ONE (11:30)
[2017-10-07] MEDS ORDERED: CARVEDILOL 12.5 MG TABLET PO ONE (11:30)
[2017-10-07] MEDS ORDERED: CLOPIDOGREL BISULFATE 75 MG TABLET PO ONE (11:30)
[2017-10-07] MEDS: GABAPENTIN 300 MG CAPSULE PO SCH ×3 (12:29→23:42)
[2017-10-07] MEDS: DIGOXIN 0.125 MG TABLET PO SCH (12:30)
[2017-10-07] MEDS: OXYCODONE HCL IR 5 MG TABLET PO PRN ×2 (12:30→22:17)
[2017-10-07] MEDS: INSULIN LISPRO 100 UNIT/ML 3 ML VIAL SUBCUT PRN ×3 (12:35→22:13)
[2017-10-07] MEDS ORDERED: IPRATROPIUM/ALBUTEROL 0.5-2.5 MG/3 ML AMPUL NEB ONE (14:19)
[2017-10-07] MEDS: FUROSEMIDE INJ/PF 100 MG/10 ML SDV IV SCH ×2 (14:20→22:13)
[2017-10-07] MEDS: HYDRALAZINE HCL 50 MG TABLET PO SCH ×2 (14:20→22:15)
[2017-10-07] MEDS: ISOSORBIDE MONONITRATE 20 MG TABLET PO SCH ×2 (14:21→22:15)
--- NOTE | 2017-10-07 15:00 | RADIOLOGY REPORT (SQ) ---
EXAM DESCRIPTION: CT HEAD WITHOUT COMPLETED DATE/TIME: 10/07/2017 2:52 pm REASON FOR STUDY: htn urgency/ams COMPARISON: None. TECHNIQUE: Axial images acquired through the brain without intravenous contrast. Images reviewed wi th bone, brain and subdural windows. Additional sagittal and coronal reconstructions were generated. Images stored on PACS. All CT scanners at this facility use dose modulation, iterative reconstruction, and/or weight based d osing when appropriate to reduce radiation dose to as low as reasonably achievable (ALARA). [facility]: Dose Right [facility]: CareDose [facility]: Dose Right [facility]: Teradose 4D [facility]: Smart MergeLocal RADIATION DOSE: CT Rad equipment meets quality standard of care and radiation dose reduction techniq ues were employed. CTDIvol: 53.2 mGy. DLP: 964 mGy-cm. mGy. LIMITATIONS: None. FINDINGS: VENTRICLES: Prominent. CEREBRUM: No masses. No hemorrhage. No midline shift. Areas of low density in the white matter mos t likely due to chronic micro-vascular ischemic change. No evidence for acute infarction. CEREBELLUM: No masses. No hemorrhage. No alteration of density. No evidence for acute infarction. EXTRAAXIAL SPACES: Mild age-related involutional change. No fluid collections. No masses. ORBITS AND GLOBE: No intra- or extraconal masses. Normal contour of globe without masses. CALVARIUM: No fracture. PARANASAL SINUSES: Chronic ethmoid sinus disease. SOFT TISSUES: No mass or hematoma. OTHER: No other significant finding. IMPRESSION: MILD CHRONIC CHANGES OF ATROPHY AND MICROVASCULAR ISCHEMIA. NO ACUTE PROCESS. EVIDENCE OF ACUTE STROKE: NO. TECHNICAL DOCUMENTATION: JOB ID: [id number] Quality ID # [id number]: Final reports with documentation of one or more dose reduction techniques (e.g., Au tomated exposure control, adjustment of the mA and/or kV according to patient size, use of iterative reconstruction technique) 2010 [employer] [place]- All Rights Reserved Reading location - IP/workstation name: [email or web address]
[2017-10-07] MEDS: CARVEDILOL 12.5 MG TABLET PO SCH (22:15)
[2017-10-08] MEDS: OXYCODONE HCL IR 5 MG TABLET PO PRN ×2 (04:29→22:26)
[2017-10-08] MEDS: HEPARIN SOD (PORCINE) 5,000 UNIT/ML 1 ML SYRINGE SUBCUT SCH ×3 (06:01→22:24)
[2017-10-08] MEDS: GABAPENTIN 300 MG CAPSULE PO SCH ×4 (06:01→23:16)
[2017-10-08] MEDS: ISOSORBIDE MONONITRATE 20 MG TABLET PO SCH ×3 (06:01→21:56)
[2017-10-08] MEDS: HYDRALAZINE HCL 50 MG TABLET PO SCH ×2 (06:02→14:39)
[2017-10-08 07:22] LABS: ABSOLUTE BASOPHILS # (AUTO) 0.1 10^3/uL (0.0-0.2); ABSOLUTE EOSINOPHILS # (AUTO) 0.2 10^3/uL (0.0-0.6); ABSOLUTE LYMPHOCYTES (AUTO) 1.9 10^3/uL (0.5-4.7); ABSOLUTE MONOCYTES (AUTO) 0.7 10^3/uL (0.1-1.4); ABSOLUTE NEUT (AUTO) 4.5 10^3/uL (1.7-8.2); BASOPHILS % (AUTO) 0.8 % (0-2); EOSINOPHILS % (AUTO) 2.2 % (0-6); HEMATOCRIT 26.7 % (36.0-47.0); MEAN CORPUSCULAR HEMOGLOBIN 28.7 pg (27.0-33.4); MEAN CORPUSCULAR HGB CONC 32.8 g/dL (32.0-36.0); MEAN CORPUSCULAR VOLUME 87 fl (80-97); MONOCYTES % (AUTO) 9.5 % (3-13); PLATELET COUNT 177 10^3/uL (150-450); RED BLOOD COUNT 3.06 10^6/uL (3.72-5.28); SEGMENTED NEUTROPHILS % (AUTO) 61.5 % (42-78); TOTAL CELLS COUNTED % (AUTO) 100 %; WHITE BLOOD COUNT 7.3 10^3/uL (4.0-10.5)
[2017-10-08 07:26] LABS: HEMOGLOBIN 8.8 g/dL (12.0-15.5)
[2017-10-08] MEDS: INSULIN LISPRO 100 UNIT/ML 3 ML VIAL SUBCUT PRN ×4 (07:55→22:27)
--- NOTE | 2017-10-08 08:45 | PDOC PROGRESS REPORT ---
Subjective Progress Note for:: 10/08/17 Subjective:: Patient denied chest pain but continue to experience orthopnea. Leg swelling improving. No abdominal pain, nausea or vomiting. Reason For Visit: HEART FAILURE Physical Exam Vital Signs: Temp Pulse Resp BP Pulse Ox 98.3 F 65 16 123/53 L 97 10/08/17 07:57 10/08/17 07:57 10/08/17 07:57 10/08/17 07:57 10/08/17 07:57 Intake & Output 10/07/17 10/08/17 10/09/17 06:59 06:59 06:59 Intake Total 1675 Output Total 4400 1700 Balance -4400 -25 Weight 109.8 kg General appearance: PRESENT: mild distress - remain on supplemental oxygen via nasal cannula., morbidly obese Mouth exam: PRESENT: moist Respiratory exam: PRESENT: decreased breath sounds - at lung bases Cardiovascular exam: PRESENT: RRR. ABSENT: diastolic murmur, rubs, systolic murmur Vascular exam: PRESENT: normal capillary refill. ABSENT: pallor GI/Abdominal exam: PRESENT: normal bowel sounds, soft. ABSENT: distended, guarding, mass, organolmegaly, rebound, tenderness Extremities exam: PRESENT: pedal edema Musculoskeletal exam: PRESENT: deformity - related to chroni diabetic foot ulcers Neurological exam: PRESENT: alert, awake, oriented to person, oriented to place , oriented to time, oriented to situation, CN II-XII grossly intact. ABSENT: motor sensory deficit Psychiatric exam: PRESENT: appropriate affect, normal mood. ABSENT: homicidal ideation, suicidal ideation Skin exam: PRESENT: dry, warm Results Laboratory Results: 10/08/17 07:01 10/07/17 08:40 10/07/17 10/08/17 08:40 07:01 WBC 7.3 RBC 3.06 L Hgb 8.8 L D Hct 26.7 L MCV 87 MCH 28.7 MCHC 32.8 RDW 17.0 H Plt Count 177 Seg Neutrophils % 61.5 Lymphocytes % 26.0 Monocytes % 9.5 Eosinophils % 2.2 Basophils % 0.8 Absolute Neutrophils 4.5 Absolute Lymphocytes 1.9 Absolute Monocytes 0.7 Absolute Eosinophils 0.2 Absolute Basophils 0.1 Sodium 140.0 Potassium 3.8 Chloride 102 Carbon Dioxide 30 Anion Gap 8 BUN 8 Creatinine 0.61 Est GFR ( Amer) > 60 Est GFR (Non-Af Amer) > 60 Glucose 225 H Calcium 9.0 Impressions: Chest X-Ray 10/06/17 17:14 IMPRESSION: CARDIAC ENLARGEMENT. VASCULAR CONGESTION. Abdomen Ultrasound 10/06/17 18:23 IMPRESSION: 1. Hepatomegaly. Trace ascites. 2. Cholelithiasis. No evidence of acute cholecystitis. Head CT 10/07/17 00:00 IMPRESSION: MILD CHRONIC CHANGES OF ATROPHY AND MICROVASCULAR ISCHEMIA. NO ACUTE PROCESS. EVIDENCE OF ACUTE STROKE: NO. Assessment & Plan - Diagnosis (1) Hypertensive emergency Is this a current diagnosis for this admission?: Yes Plan: See attending physician orders. (2) Acute on chronic systolic congestive heart failure, NYHA class 3 Is this a current diagnosis for this admission?: Yes Plan: See attending physician orders. (3) Chronic combined systolic and diastolic CHF (congestive heart failure) Is this a current diagnosis for this admission?: Yes Plan: See attending physician orders. (4) Coronary artery disease Qualifiers: Coronary Disease-Associated Artery/Lesion type: [place] artery [place] vs. transplanted heart: [place] heart Associated angina: without angina Qualified Code(s): I25.10 - Atherosclerotic heart disease of [place] coronary artery without angina pectoris Is this a current diagnosis for this admission?: Yes Plan: See attending physician orders. (5) S/P CABG (coronary artery bypass graft) Is this a current diagnosis for this admission?: Yes Plan: See attending physician orders. (6) Diabetes mellitus type 2 in obese Is this a current diagnosis for this admission?: Yes Plan: See attending physician orders. (7) 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 2 diabetes mellitus Qualifiers: Diabetic foot ulcer location: heel Non-pressure ulcer stage: with muscle involvement without evidence of necrosis Qualified Code(s): E11.621 - Type 2 diabetes mellitus with foot ulcer; L97.425 - Non-pressure chronic ulcer of left heel and midfoot with muscle involvement without evidence of necrosis; L97.425 - Non-pressure chronic ulcer of left heel and midfoot with muscle involvement without evidence of necrosis; L97.425 - Non-pressure chronic ulcer of left heel and midfoot with muscle involvement without evidence of necrosis; L97.425 - Non- pressure chronic ulcer of left heel and midfoot with muscle involvement without evidence of necrosis Is this a current diagnosis for this admission?: Yes Plan: See attending physician orders. (8) Hyperlipidemia Qualifiers: Hyperlipidemia type: unspecified Qualified Code(s): E78.5 - Hyperlipidemia , unspecified Is this a current diagnosis for this admission?: Yes Plan: See attending physician orders. - Time Time Spent with patient: 25-34 minutes Medications reviewed and adjusted accordingly: Yes Anticipated discharge: Home with Homehealth Within: Other - Inpatient Certification Based on my medical assessment, after consideration of the patient's comorbidities, presenting symptoms, or acuity I expect that the services needed warrant INPATIENT care.: Yes I certify that my determination is in accordance with my understanding of Medicare's requirements for reasonable and necessary INPATIENT services [42 CFR 412.3e].: Yes Medical Necessity: Need Close Monitoring Due to Risk of Patient Decompensation, Need For Continuous Telemetry Monitoring, Risk of Complication if Not Cared For in Hospital Post Hospital Care: D/C Lace Winder Documentation - Plan Summary Plan Summary: See attending physician orders.
[2017-10-08] MEDS: CLOPIDOGREL BISULFATE 75 MG TABLET PO SCH (09:27)
[2017-10-08] MEDS: AMLODIPINE BESYLATE 10 MG TABLET PO SCH (09:27)
[2017-10-08] MEDS: DIGOXIN 0.125 MG TABLET PO SCH (09:27)
[2017-10-08] MEDS: CARVEDILOL 12.5 MG TABLET PO SCH ×2 (09:27→22:22)
[2017-10-08] MEDS: SACUBITRIL/VALSARTAN 97 MG/103 MG TABLET PO SCH ×2 (09:28→21:56)
[2017-10-08] MEDS: FUROSEMIDE INJ/PF 100 MG/10 ML SDV IV SCH ×2 (09:28→22:24)
[2017-10-08] MEDS ORDERED: HYDRALAZINE HCL 50 MG TABLET PO SCH (12:00)
[2017-10-08 17:09] LABS: ARTERIAL BLOOD BASE EXCESS 7.8 mmol/L; ARTERIAL BLOOD H2CO3 1.58 mmol/L (1.05-1.35); ARTERIAL BLOOD HCO3 33.6 mmol/L (20-26); ARTERIAL BLOOD O2 SATURATION 96.4 % (94-98); ARTERIAL BLOOD PCO2 52.4 mmHg (35-45); ARTERIAL BLOOD PH 7.43 (7.35-7.45); ARTERIAL BLOOD PO2 84.3 mmHg (80-100); ARTERIAL BLOOD TOTAL CO2 35.2 mmol/L (21-25)
[2017-10-08 17:11] LABS: ARTERIAL BLOOD FIO2 30%
--- NOTE | 2017-10-08 17:19 | PROGRESS NOTE E ---
Progress Note NAME: JAVIER BURGER : 1955 AGE: 62Y DATE: 10/08/2017 ROOM: 334 SUBJECTIVE: The patient states she feels better. Her blood pressure is well controlled. She still has some orthopnea but no PND. Leg edema is much improved. There is no chest pain or discomfort. There is no arrhythmia seen on the monitor. Discussed *------*. There seems to be noncompliance with medication and diet at home by the patient. There are no TIA or CVA symptoms. OBJECTIVE: GENERAL: On examination the patient is moderately obese, well-groomed, in no acute distress. VITAL SIGNS: She is afebrile with a temperature of 97.8 degrees Fahrenheit, pulse is 67 beats per minute, blood pressure is 106/46, respirations are 16 per minute, O2 saturations are 92% on 2 L nasal cannula. HEENT: Head is atraumatic, normocephalic. Eyes: Pupils are equal, round and regular, reactive to light and accommodation. There seems to be some conjunctival pallor. There is no scleral icterus. ENT is negative. NECK: Supple. There is no JVD. Carotids are equal. There is no bruit. There is no lymphadenopathy. There is no goiter. Trachea is central. LUNGS: Show diminished air entry in the bases, is much less than yesterday. There is no rhonchi or wheezing. HEART: S1, S2 is heard. There is no S3 gallop. There is no S4 gallop. There is a systolic murmur in the left sternal border and the apex. There is no rub. ABDOMEN: Obese, nontender. There is no hepatosplenomegaly. Bowel sounds are well heard. EXTREMITIES: Femorals are diminished. There are no femoral bruits. Leg pulses are diminished. There is a dressing of the left heel ulcer. There is trace pedal edema bilaterally. There is no DVT or cellulitis. There is no calf tenderness. CENTRAL NERVOUS SYSTEM: The patient is conscious, awake, alert and oriented x3 with no focal deficits. PSYCHIATRIC: The patient's judgment and insight are intact. Her affect is normal. DIAGNOSTICS: The patient's 24-hour intake is 1,600 mL, output is 1,750 mL. The patient's white count is 1,300; hemoglobin *------*.8; hematocrit 26.7; platelet count 177,000. The patient's blood sugar is 184 and 192. ASSESSMENT: 1. ACUTE ON CHRONIC SYSTOLIC HEART FAILURE, SEEMS TO BE IMPROVING. Continue the patient's current Entresto, hydralazine, isosorbide mononitrate in the form of Ismo. Continue Lasix. 2. INITIALLY HYPERTENSION. Hypertensive urgency on admission. At present blood pressure well controlled. Initially as written for increase in hydralazine to 50 q.6 hours but since the patient's blood pressure 106 will revert it back to 50 mg p.o. q.8 hours. 3. CORONARY ARTERY DISEASE. History of coronary artery bypass graft surgery, old myocardial infarction, no anginal symptoms. 4. DIABETES MELLITUS. 5. NONCOMPLIANCE. 6. PERIPHERAL ARTERIAL DISEASE. 7. NONHEALING ULCER OF THE LEFT HEEL. RECOMMENDATIONS: As mentioned earlier, patient has been consulted to be more attentive to her dietary and medical regimen. Await getting echo on this patient. Note, 30 minutes spent on this patient with more than 50% of the time spent on direct patient care. Continues to be of high complexity in view of the patient's multiple risk factors including cardiomyopathy. DICTATING PHYSICIAN: RICHIE LARIOS M.D. [id number] CARLI#: [id number] ID: [id number] JOB#: [id number] ACCT: [id number] cc: >
[2017-10-09] MEDS: HYDRALAZINE HCL 50 MG TABLET PO SCH ×4 (01:07→22:31)
[2017-10-09] MEDS: HEPARIN SOD (PORCINE) 5,000 UNIT/ML 1 ML SYRINGE SUBCUT SCH ×3 (06:08→22:33)
[2017-10-09] MEDS: GABAPENTIN 300 MG CAPSULE PO SCH ×3 (06:09→17:47)
[2017-10-09] MEDS: LANSOPRAZOLE 30 MG TAB.RAP.DR PO SCH (06:09)
[2017-10-09] MEDS: ISOSORBIDE MONONITRATE 20 MG TABLET PO SCH ×3 (06:09→22:31)
[2017-10-09 07:18] LABS: ALANINE AMINOTRANSFERASE 15 U/L (9-52); ALBUMIN 2.9 g/dL (3.5-5.0); ALKALINE PHOSPHATASE 209 U/L (38-126); ANION GAP 7 (5-19); ASPARTATE AMINO TRANSFERASE 22 U/L (14-36); BILIRUBIN,DIRECT 0.7 mg/dL (0.0-0.4); BILIRUBIN,TOTAL 0.9 mg/dL (0.2-1.3); BLOOD UREA NITROGEN 23 mg/dL (7-20); CALCIUM 8.7 mg/dL (8.4-10.2); CARBON DIOXIDE 32 mmol/L (22-30); CHLORIDE 102 mmol/L (98-107); GLUCOSE 200 mg/dL (75-110); SODIUM 140.8 mmol/L (137-145); TOTAL PROTEIN 6.9 g/dL (6.3-8.2)
[2017-10-09 08:30] LABS: ABSOLUTE EOSINOPHILS # (AUTO) 0.1 10^3/uL (0.0-0.6); ABSOLUTE LYMPHOCYTES (AUTO) 1.4 10^3/uL (0.5-4.7); ABSOLUTE MONOCYTES (AUTO) 0.7 10^3/uL (0.1-1.4); ABSOLUTE NEUT (AUTO) 3.6 10^3/uL (1.7-8.2); BASOPHILS % (AUTO) 0.8 % (0-2); EOSINOPHILS % (AUTO) 2.4 % (0-6); HEMATOCRIT 26.9 % (36.0-47.0); HEMOGLOBIN 8.7 g/dL (12.0-15.5); LYMPHOCYTES % (AUTO) 23.3 % (13-45); MEAN CORPUSCULAR HEMOGLOBIN 28.5 pg (27.0-33.4); MEAN CORPUSCULAR HGB CONC 32.3 g/dL (32.0-36.0); MEAN CORPUSCULAR VOLUME 88 fl (80-97); MONOCYTES % (AUTO) 11.7 % (3-13); PLATELET COUNT 182 10^3/uL (150-450); RED BLOOD COUNT 3.05 10^6/uL (3.72-5.28); SEGMENTED NEUTROPHILS % (AUTO) 61.8 % (42-78); TOTAL CELLS COUNTED % (AUTO) 100 %; WHITE BLOOD COUNT 5.8 10^3/uL (4.0-10.5)
[2017-10-09] MEDS: INSULIN LISPRO 100 UNIT/ML 3 ML VIAL SUBCUT PRN ×4 (08:30→22:39)
[2017-10-09] MEDS: SACUBITRIL/VALSARTAN 97 MG/103 MG TABLET PO SCH ×2 (11:05→22:31)
[2017-10-09] MEDS: CARVEDILOL 12.5 MG TABLET PO SCH ×2 (11:05→22:33)
[2017-10-09] MEDS: OXYCODONE HCL IR 5 MG TABLET PO PRN ×2 (11:05→22:33)
[2017-10-09] MEDS: DIGOXIN 0.125 MG TABLET PO SCH (11:06)
[2017-10-09] MEDS: CLOPIDOGREL BISULFATE 75 MG TABLET PO SCH (11:06)
[2017-10-09] MEDS: FUROSEMIDE INJ/PF 100 MG/10 ML SDV IV SCH (11:07)
[2017-10-09] MEDS: AMLODIPINE BESYLATE 10 MG TABLET PO SCH (11:07)
--- NOTE | 2017-10-09 20:52 | PDOC PROGRESS REPORT ---
Subjective Progress Note for:: 10/09/17 Subjective:: Patient denied any chest pain. remain on BiPAP support while sleeping due to hypercapnia. Remain on supplemental oxygen via nasal cannula. No palpitation, abdominal pain, nausea, or vomiting. Awaiting echocardiogram official report. Reason For Visit: HEART FAILURE Physical Exam Vital Signs: Temp Pulse Resp BP Pulse Ox 99.2 F 68 18 81/64 L 98 10/09/17 15:57 10/09/17 15:57 10/09/17 15:57 10/09/17 15:57 10/09/17 15:57 Intake & Output 10/08/17 10/09/17 10/10/17 06:59 06:59 06:59 Intake Total 1675 714 829 Output Total 1700 1375 850 Balance -25 -661 -21 Weight 109.8 kg 113.5 kg Physical Exam: General appearance: PRESENT: mild distress - remain on supplemental oxygen via nasal cannula., morbidly obese Mouth exam: PRESENT: moist Respiratory exam: PRESENT: decreased breath sounds - at lung bases Cardiovascular exam: PRESENT: RRR. ABSENT: diastolic murmur, rubs, systolic murmur Vascular exam: PRESENT: normal capillary refill. ABSENT: pallor GI/Abdominal exam: PRESENT: normal bowel sounds, soft. ABSENT: distended, guarding, mass, organomegaly, rebound, tenderness Extremities exam: PRESENT: improving pedal edema Musculoskeletal exam: PRESENT: deformity - related to granulating chronic diabetic foot ulcers Neurological exam: PRESENT: alert, awake, oriented to person, oriented to place , oriented to time, oriented to situation, CN II-XII grossly intact. ABSENT: motor sensory deficit Psychiatric exam: PRESENT: appropriate affect, normal mood. ABSENT: homicidal ideation, suicidal ideation Skin exam: PRESENT: dry, warm Results Laboratory Results: 10/09/17 08:07 10/09/17 06:33 10/09/17 10/09/17 10/09/17 06:33 06:33 08:07 WBC Cancelled 5.8 RBC Cancelled 3.05 L Hgb Cancelled 8.7 L Hct Cancelled 26.9 L MCV Cancelled 88 MCH Cancelled 28.5 MCHC Cancelled 32.3 RDW Cancelled 17.0 H Plt Count Cancelled 182 Seg Neutrophils % Cancelled 61.8 Lymphocytes % Cancelled 23.3 Monocytes % Cancelled 11.7 Eosinophils % Cancelled 2.4 Basophils % Cancelled 0.8 Absolute Neutrophils Cancelled 3.6 Absolute Lymphocytes Cancelled 1.4 Absolute Monocytes Cancelled 0.7 Absolute Eosinophils Cancelled 0.1 Absolute Basophils Cancelled 0.0 Sodium 140.8 Potassium 4.0 Chloride 102 Carbon Dioxide 32 H Anion Gap 7 BUN 23 H Creatinine 1.18 Est GFR ( Amer) 56 L Est GFR (Non-Af Amer) 46 L Glucose 200 H Calcium 8.7 Total Bilirubin 0.9 AST 22 ALT 15 Alkaline Phosphatase 209 H Total Protein 6.9 Albumin 2.9 L Impressions: Chest X-Ray 10/06/17 17:14 IMPRESSION: CARDIAC ENLARGEMENT. VASCULAR CONGESTION. Abdomen Ultrasound 10/06/17 18:23 IMPRESSION: 1. Hepatomegaly. Trace ascites. 2. Cholelithiasis. No evidence of acute cholecystitis. Head CT 10/07/17 00:00 IMPRESSION: MILD CHRONIC CHANGES OF ATROPHY AND MICROVASCULAR ISCHEMIA. NO ACUTE PROCESS. EVIDENCE OF ACUTE STROKE: NO. Assessment & Plan - Diagnosis (1) Hypertensive emergency Is this a current diagnosis for this admission?: Yes (2) Acute on chronic systolic congestive heart failure, NYHA class 3 Is this a current diagnosis for this admission?: Yes (3) Chronic combined systolic and diastolic CHF (congestive heart failure) Is this a current diagnosis for this admission?: Yes (4) Coronary artery disease Qualifiers: Coronary Disease-Associated Artery/Lesion type: [place] artery [place] vs. transplanted heart: [place] heart Associated angina: without angina Qualified Code(s): I25.10 - Atherosclerotic heart disease of [place] coronary artery without angina pectoris Is this a current diagnosis for this admission?: Yes (5) S/P CABG (coronary artery bypass graft) Is this a current diagnosis for this admission?: Yes (6) Diabetes mellitus type 2 in obese Is this a current diagnosis for this admission?: Yes (7) 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 2 diabetes mellitus Qualifiers: Diabetic foot ulcer location: heel Non-pressure ulcer stage: with muscle involvement without evidence of necrosis Qualified Code(s): E11.621 - Type 2 diabetes mellitus with foot ulcer; L97.425 - Non-pressure chronic ulcer of left heel and midfoot with muscle involvement without evidence of necrosis; L97.425 - Non-pressure chronic ulcer of left heel and midfoot with muscle involvement without evidence of necrosis; L97.425 - Non-pressure chronic ulcer of left heel and midfoot with muscle involvement without evidence of necrosis; L97.425 - Non- pressure chronic ulcer of left heel and midfoot with muscle involvement without evidence of necrosis Is this a current diagnosis for this admission?: Yes (8) Hyperlipidemia Qualifiers: Hyperlipidemia type: unspecified Qualified Code(s): E78.5 - Hyperlipidemia , unspecified Is this a current diagnosis for this admission?: Yes - Time Time Spent with patient: 25-34 minutes Medications reviewed and adjusted accordingly: Yes Anticipated discharge: Home with Homehealth Within: Other - Inpatient Certification Based on my medical assessment, after consideration of the patient's comorbidities, presenting symptoms, or acuity I expect that the services needed warrant INPATIENT care.: Yes I certify that my determination is in accordance with my understanding of Medicare's requirements for reasonable and necessary INPATIENT services [42 CFR 412.3e].: Yes Medical Necessity: Need Close Monitoring Due to Risk of Patient Decompensation, Need For Continuous Telemetry Monitoring, Risk of Complication if Not Cared For in Hospital Post Hospital Care: D/C Media Sales Consultant Documentation - Plan Summary Plan Summary: Decrease IV Lasix to 80 mg daily from 10/10/17. Continue all other current medication management. communications planner will look into enrollment in community care CHF program upon discharge. Physical therapy evaluation to mobilize patient. Follow up on official echo report.
[2017-10-10] MEDS: GABAPENTIN 300 MG CAPSULE PO SCH ×5 (00:45→23:05)
[2017-10-10] MEDS: OXYCODONE HCL IR 5 MG TABLET PO PRN ×2 (05:28→19:50)
[2017-10-10] MEDS: HYDRALAZINE HCL 50 MG TABLET PO SCH ×3 (05:28→22:14)
[2017-10-10] MEDS: LANSOPRAZOLE 30 MG TAB.RAP.DR PO SCH (05:28)
[2017-10-10] MEDS: ISOSORBIDE MONONITRATE 20 MG TABLET PO SCH ×3 (05:29→22:13)
[2017-10-10] MEDS: HEPARIN SOD (PORCINE) 5,000 UNIT/ML 1 ML SYRINGE SUBCUT SCH ×3 (05:32→22:14)
[2017-10-10] MEDS: INSULIN LISPRO 100 UNIT/ML 3 ML VIAL SUBCUT PRN ×4 (07:57→22:14)
--- NOTE | 2017-10-10 08:17 | PDOC PROGRESS REPORT ---
Subjective Progress Note for:: 10/10/17 Subjective:: Patient denied any chest pain or difficulty with breathing. Remain on BiPAP support due to hypercapnia. No abdominal pain, nausea, or vomiting. Reason For Visit: HEART FAILURE Physical Exam Vital Signs: Temp Pulse Resp BP Pulse Ox 98.7 F 74 18 128/56 H 97 10/10/17 04:22 10/10/17 07:00 10/10/17 04:22 10/10/17 04:22 10/10/17 04:22 Intake & Output 10/09/17 10/10/17 10/11/17 06:59 06:59 06:59 Intake Total 714 829 Output Total 1375 1350 Balance -661 -521 Weight 113.5 kg 113.5 kg Physical Exam: General appearance: PRESENT: remain on supplemental oxygen via nasal cannula., morbidly obese Mouth exam: PRESENT: moist Respiratory exam: PRESENT: decreased breath sounds - at lung bases Cardiovascular exam: PRESENT: RRR. ABSENT: diastolic murmur, rubs, systolic murmur Vascular exam: ABSENT: pallor GI/Abdominal exam: PRESENT: normal bowel sounds, soft. ABSENT: distended, guarding, mass, organomegaly, rebound, tenderness Extremities exam: PRESENT: improving pedal edema Musculoskeletal exam: PRESENT: deformity - related to granulating chronic diabetic foot ulcers Neurological exam: PRESENT: alert, awake, oriented to person, oriented to place , oriented to time, oriented to situation, CN II-XII grossly intact. ABSENT: motor sensory deficit Psychiatric exam: PRESENT: appropriate affect, normal mood. ABSENT: homicidal ideation, suicidal ideation Skin exam: PRESENT: dry, warm Results Laboratory Results: 10/09/17 08:07 10/09/17 06:33 10/09/17 08:07 WBC 5.8 RBC 3.05 L Hgb 8.7 L Hct 26.9 L MCV 88 MCH 28.5 MCHC 32.3 RDW 17.0 H Plt Count 182 Seg Neutrophils % 61.8 Lymphocytes % 23.3 Monocytes % 11.7 Eosinophils % 2.4 Basophils % 0.8 Absolute Neutrophils 3.6 Absolute Lymphocytes 1.4 Absolute Monocytes 0.7 Absolute Eosinophils 0.1 Absolute Basophils 0.0 Impressions: Chest X-Ray 10/06/17 17:14 IMPRESSION: CARDIAC ENLARGEMENT. VASCULAR CONGESTION. Abdomen Ultrasound 06/02/18 18:23 IMPRESSION: 1. Hepatomegaly. Trace ascites. 2. Cholelithiasis. No evidence of acute cholecystitis. Head CT 10/07/17 00:00 IMPRESSION: MILD CHRONIC CHANGES OF ATROPHY AND MICROVASCULAR ISCHEMIA. NO ACUTE PROCESS. EVIDENCE OF ACUTE STROKE: NO. Assessment & Plan - Diagnosis (1) Hypertensive emergency Is this a current diagnosis for this admission?: Yes (2) Acute on chronic systolic congestive heart failure, NYHA class 3 Is this a current diagnosis for this admission?: Yes (3) Chronic combined systolic and diastolic CHF (congestive heart failure) Is this a current diagnosis for this admission?: Yes (4) Coronary artery disease Qualifiers: Coronary Disease-Associated Artery/Lesion type: [place] artery [place] vs. transplanted heart: [place] heart Associated angina: without angina Qualified Code(s): I25.10 - Atherosclerotic heart disease of [place] coronary artery without angina pectoris Is this a current diagnosis for this admission?: Yes (5) S/P CABG (coronary artery bypass graft) Is this a current diagnosis for this admission?: Yes (6) Diabetes mellitus type 2 in obese Is this a current diagnosis for this admission?: Yes (7) 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 2 diabetes mellitus Qualifiers: Diabetic foot ulcer location: heel Non-pressure ulcer stage: with muscle involvement without evidence of necrosis Qualified Code(s): E11.621 - Type 2 diabetes mellitus with foot ulcer; L97.425 - Non-pressure chronic ulcer of left heel and midfoot with muscle involvement without evidence of necrosis; L97.425 - Non-pressure chronic ulcer of left heel and midfoot with muscle involvement without evidence of necrosis; L97.425 - Non-pressure chronic ulcer of left heel and midfoot with muscle involvement without evidence of necrosis; L97.425 - Non- pressure chronic ulcer of left heel and midfoot with muscle involvement without evidence of necrosis Is this a current diagnosis for this admission?: Yes (8) Hyperlipidemia Qualifiers: Hyperlipidemia type: unspecified Qualified Code(s): E78.5 - Hyperlipidemia , unspecified Is this a current diagnosis for this admission?: Yes - Time Time Spent with patient: 25-34 minutes Medications reviewed and adjusted accordingly: Yes Anticipated discharge: Home with Homehealth Within: Other - Inpatient Certification Based on my medical assessment, after consideration of the patient's comorbidities, presenting symptoms, or acuity I expect that the services needed warrant INPATIENT care.: Yes I certify that my determination is in accordance with my understanding of Medicare's requirements for reasonable and necessary INPATIENT services [42 CFR 412.3e].: Yes Medical Necessity: Need Close Monitoring Due to Risk of Patient Decompensation, Need For Continuous Telemetry Monitoring, Risk of Complication if Not Cared For in Hospital Post Hospital Care: D/C Rolling Mill Operator 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 Follow up on physical theapy intervention. Obtain BMP, CBC with diff, TSH, and NT-Pro BNP in am.
--- NOTE | 2017-10-10 09:45 | XCELERA REPORT ---
[address] [address] Transthoracic Echocardiogram Report Name: JAVIER BURGER Age: 62 yrs Gender: Female : 1955 Patient Status: Inpatient Patient Location: [address] [place] [address] Study Date: 10/09/2017 09:37 AM Procedure: A complete two-dimensional transthoracic echocardiogram was performed (2D, M-mode, spectral and color flow Doppler). The study was technically adequate with some images being suboptimal in quality. Reason For Study: CM / CHF Ordering Physician: RICHIE LARIOS Performed By: Shila Boone Interpretation Summary The left ventricular ejection fraction is normal. There is mild concentric left ventricular hypertrophy. The left ventricle is grossly normal size. Doppler measurements suggest pseudonormalized left ventricular relaxation, which is associated with grade II/IV or mild to moderate diastolic dysfunction Wall motion cannot be accurately commented on, but no definite regional wall motion abnormalities noted. The right ventricular systolic function is normal. The right ventricle is mildly dilated. The right atrium is normal in size The left atrial size is normal. There is no mitral valve stenosis. There is a trace to mild amount of mitral regurgitation There is no aortic valve stenosis No aortic regurgitation is present. There is a mild amount of tricuspid regurgitation Right ventricular systolic pressure is estimated to be elevated at 40- 50mmHg. There is mild to moderate pulmonary hypertension by echo The aortic root is not well visualized but is probably normal size. The inferior vena cava was not well visualized There is no pericardial effusion. MMode/2D Measurements & Calculations RVDd: 3.8 cm LVIDd: 4.8 cm FS: 32.4 % Ao root diam: IVSd: 0.98 cm LVIDs: 3.2 cm EDV(Teich): 2.7 cm LVPWd: 1.1 cm 107.3 ml Ao root area: ESV(Teich): 5.8 cm2 42.3 ml EF(Teich): 60.6 % LVOT diam: EDV(MOD-sp4): SV(MOD-sp4): 2.1 cm 65.5 ml 31.9 ml LVOT area: ESV(MOD-sp4): 3.3 cm2 33.6 ml EF(MOD-sp4): 48.8 % Doppler Measurements & Calculations MV E max mia: MV dec slope: Ao V2 max: LV V1 max P.9 cm/sec 550.5 cm/sec2 271.1 cm/sec 4.9 mmHg MV A max mia: MV dec time: Ao max PG: LV V1 max: 106.2 cm/sec 0.25 sec 29.5 mmHg 110.2 cm/sec MV E/A: 1.3 Ao V2 mean: 191.0 cm/sec Ao mean P.9 mmHg Ao V2 VTI: 52.1 cm RAE(V,D): 1.4 cm2 PA V2 max: PI end-d mia: TR max mia: 98.9 cm/sec 97.9 cm/sec 285.9 cm/sec PA max P.9 mmHg TR max P.8 mmHg Left Ventricle The left ventricle is grossly normal size. There is mild concentric left ventricular hypertrophy. The left ventricular ejection fraction is normal. Doppler measurements suggest pseudonormalized left ventricular relaxation, which is associated with grade II/IV or mild to moderate diastolic dysfunction. Wall motion cannot be accurately commented on, but no definite regional wall motion abnormalities noted. Right Ventricle The right ventricle is mildly dilated. There is normal right ventricular wall thickness. The right ventricular systolic function is normal. Atria The right atrium is normal in size. The left atrial size is normal. Interarterial septum not well visualized and not well dopplered. Cannot comment on ASD/PFO presence. Mitral Valve The mitral valve is grossly normal. There is no mitral valve stenosis. There is a trace to mild amount of mitral regurgitation. Aortic Valve The aortic valve opens well. The aortic valve is not well visualized secondary to technical limitations. There is no aortic valve stenosis. No aortic regurgitation is present. Tricuspid Valve The tricuspid valve is not well visualized, but is grossly normal. There is no tricuspid stenosis. There is a mild amount of tricuspid regurgitation. There is mild to moderate pulmonary hypertension by echo. Right ventricular systolic pressure is estimated to be elevated at 40-50mmHg. Pulmonic Valve The pulmonic valve is not well visualized. Great Vessels The aortic root is not well visualized but is probably normal size. The inferior vena cava was not well visualized. Effusions There is no pericardial effusion. : RICHIE LARIOS > Irma Hitchcock
[2017-10-10] MEDS ORDERED: FUROSEMIDE INJ/PF 100 MG/10 ML SDV IV SCH (10:00)
[2017-10-10] MEDS: AMLODIPINE BESYLATE 10 MG TABLET PO SCH (12:15)
[2017-10-10] MEDS: CLOPIDOGREL BISULFATE 75 MG TABLET PO SCH (12:16)
[2017-10-10] MEDS: CARVEDILOL 12.5 MG TABLET PO SCH ×2 (12:16→22:13)
[2017-10-10] MEDS: DIGOXIN 0.125 MG TABLET PO SCH (12:17)
[2017-10-10] MEDS: SACUBITRIL/VALSARTAN 97 MG/103 MG TABLET PO SCH ×2 (12:17→22:12)
[2017-10-11] MEDS: HEPARIN SOD (PORCINE) 5,000 UNIT/ML 1 ML SYRINGE SUBCUT SCH ×3 (05:18→21:26)
[2017-10-11] MEDS: LANSOPRAZOLE 30 MG TAB.RAP.DR PO SCH (05:18)
[2017-10-11] MEDS: HYDRALAZINE HCL 50 MG TABLET PO SCH ×3 (05:18→21:26)
[2017-10-11] MEDS: GABAPENTIN 300 MG CAPSULE PO SCH ×4 (05:18→23:24)
[2017-10-11] MEDS: ISOSORBIDE MONONITRATE 20 MG TABLET PO SCH ×3 (05:20→21:23)
[2017-10-11] MEDS: OXYCODONE HCL IR 5 MG TABLET PO PRN ×3 (05:26→20:21)
[2017-10-11 06:33] LABS: ANION GAP 9 (5-19); BLOOD UREA NITROGEN 33 mg/dL (7-20); CARBON DIOXIDE 30 mmol/L (22-30); CHLORIDE 103 mmol/L (98-107); GLUCOSE 185 mg/dL (75-110); POTASSIUM 4.2 mmol/L (3.6-5.0); SODIUM 141.7 mmol/L (137-145)
[2017-10-11 06:50] LABS: ABSOLUTE EOSINOPHILS # (AUTO) 0.2 10^3/uL (0.0-0.6); ABSOLUTE LYMPHOCYTES (AUTO) 1.6 10^3/uL (0.5-4.7); ABSOLUTE MONOCYTES (AUTO) 0.7 10^3/uL (0.1-1.4); ABSOLUTE NEUT (AUTO) 3.1 10^3/uL (1.7-8.2); BASOPHILS % (AUTO) 0.5 % (0-2); HEMATOCRIT 28.1 % (36.0-47.0); HEMOGLOBIN 9.1 g/dL (12.0-15.5); LYMPHOCYTES % (AUTO) 28.9 % (13-45); MEAN CORPUSCULAR HEMOGLOBIN 28.2 pg (27.0-33.4); MEAN CORPUSCULAR HGB CONC 32.5 g/dL (32.0-36.0); MEAN CORPUSCULAR VOLUME 87 fl (80-97); MONOCYTES % (AUTO) 12.5 % (3-13); PLATELET COUNT 194 10^3/uL (150-450); RED BLOOD COUNT 3.23 10^6/uL (3.72-5.28); RED CELL DISTRIBUTION WIDTH 16.5 % (11.5-14.0); SEGMENTED NEUTROPHILS % (AUTO) 55.1 % (42-78); TOTAL CELLS COUNTED % (AUTO) 100 %; WHITE BLOOD COUNT 5.7 10^3/uL (4.0-10.5)
--- NOTE | 2017-10-11 08:19 | PDOC PROGRESS REPORT ---
Subjective Progress Note for:: 10/11/17 Subjective:: Patient denied any chest pain or difficulty with breathing. Tolerating oral feeding. No abdominal pain, nausea, or vomiting. Reason For Visit: HEART FAILURE Physical Exam Vital Signs: Temp Pulse Resp BP Pulse Ox 98.9 F 69 18 123/54 L 99 10/11/17 07:47 10/11/17 07:47 10/11/17 07:47 10/11/17 07:47 10/11/17 07:47 Intake & Output 10/10/17 10/11/17 10/12/17 06:59 06:59 06:59 Intake Total 829 690 Output Total 1350 1425 Balance -521 -735 Weight 113.5 kg 111 kg Physical Exam: General appearance: PRESENT: remain on supplemental oxygen via nasal cannula., morbidly obese Mouth exam: PRESENT: moist Respiratory exam: PRESENT: decreased breath sounds - at lung bases Cardiovascular exam: PRESENT: RRR. ABSENT: diastolic murmur, rubs, systolic murmur Vascular exam: ABSENT: pallor GI/Abdominal exam: PRESENT: normal bowel sounds, soft. ABSENT: distended, guarding, mass, organomegaly, rebound, tenderness Extremities exam: PRESENT: improving pedal edema Musculoskeletal exam: PRESENT: deformity - related to granulating chronic diabetic foot ulcers Neurological exam: PRESENT: alert, awake, oriented to person, oriented to place , oriented to time, oriented to situation, CN II-XII grossly intact. ABSENT: motor sensory deficit Psychiatric exam: PRESENT: appropriate affect, normal mood. ABSENT: homicidal ideation, suicidal ideation Skin exam: PRESENT: dry, warm Results Laboratory Results: 10/11/17 05:55 10/11/17 05:55 10/11/17 10/11/17 10/11/17 05:55 05:55 05:55 WBC 5.7 RBC 3.23 L Hgb 9.1 L Hct 28.1 L MCV 87 MCH 28.2 MCHC 32.5 RDW 16.5 H Plt Count 194 Seg Neutrophils % 55.1 Lymphocytes % 28.9 Monocytes % 12.5 Eosinophils % 3.0 Basophils % 0.5 Absolute Neutrophils 3.1 Absolute Lymphocytes 1.6 Absolute Monocytes 0.7 Absolute Eosinophils 0.2 Absolute Basophils 0.0 Sodium 141.7 Potassium 4.2 Chloride 103 Carbon Dioxide 30 Anion Gap 9 BUN 33 H Creatinine 0.95 Est GFR ( Amer) > 60 Est GFR (Non-Af Amer) 59 L Glucose 185 H Calcium 9.0 TSH 2.60 10/11/17 05:55 NT-Pro-B Natriuret Pep 3780 H Impressions: Chest X-Ray 10/06/17 17:14 IMPRESSION: CARDIAC ENLARGEMENT. VASCULAR CONGESTION. Abdomen Ultrasound 10/06/17 18:23 IMPRESSION: 1. Hepatomegaly. Trace ascites. 2. Cholelithiasis. No evidence of acute cholecystitis. Head CT 10/07/17 00:00 IMPRESSION: MILD CHRONIC CHANGES OF ATROPHY AND MICROVASCULAR ISCHEMIA. NO ACUTE PROCESS. EVIDENCE OF ACUTE STROKE: NO. Assessment & Plan - Diagnosis (1) Hypertensive emergency Is this a current diagnosis for this admission?: Yes (2) Acute on chronic systolic congestive heart failure, NYHA class 3 Is this a current diagnosis for this admission?: Yes (3) Chronic combined systolic and diastolic CHF (congestive heart failure) Is this a current diagnosis for this admission?: Yes (4) Coronary artery disease Qualifiers: Coronary Disease-Associated Artery/Lesion type: [place] artery [place] vs. transplanted heart: [place] heart Associated angina: without angina Qualified Code(s): I25.10 - Atherosclerotic heart disease of [place] coronary artery without angina pectoris Is this a current diagnosis for this admission?: Yes (5) S/P CABG (coronary artery bypass graft) Is this a current diagnosis for this admission?: Yes (6) Diabetes mellitus type 2 in obese Is this a current diagnosis for this admission?: Yes (7) 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 2 diabetes mellitus Qualifiers: Diabetic foot ulcer location: heel Non-pressure ulcer stage: with muscle involvement without evidence of necrosis Qualified Code(s): E11.621 - Type 2 diabetes mellitus with foot ulcer; L97.425 - Non-pressure chronic ulcer of left heel and midfoot with muscle involvement without evidence of necrosis; L97.425 - Non-pressure chronic ulcer of left heel and midfoot with muscle involvement without evidence of necrosis; L97.425 - Non-pressure chronic ulcer of left heel and midfoot with muscle involvement without evidence of necrosis; L97.425 - Non- pressure chronic ulcer of left heel and midfoot with muscle involvement without evidence of necrosis Is this a current diagnosis for this admission?: Yes (8) Hyperlipidemia Qualifiers: Hyperlipidemia type: unspecified Qualified Code(s): E78.5 - Hyperlipidemia , unspecified Is this a current diagnosis for this admission?: Yes - Time Time Spent with patient: 25-34 minutes Medications reviewed and adjusted accordingly: Yes Anticipated discharge: Home with Homehealth Within: Other - Inpatient Certification Based on my medical assessment, after consideration of the patient's comorbidities, presenting symptoms, or acuity I expect that the services needed warrant INPATIENT care.: Yes I certify that my determination is in accordance with my understanding of Medicare's requirements for reasonable and necessary INPATIENT services [42 CFR 412.3e].: Yes Medical Necessity: Need Close Monitoring Due to Risk of Patient Decompensation, Need For Continuous Telemetry Monitoring, Risk of Complication if Not Cared For in Hospital Post Hospital Care: D/C Critical Care Technician Documentation - Plan Summary Plan Summary: D/C IV Lasix. Restart on Lasix 40 mg po bid. Maintain on all other current medication management. Possible discharge home tomorrow with [facility] CHF program.
[2017-10-11] MEDS: CARVEDILOL 12.5 MG TABLET PO SCH ×2 (09:45→21:25)
[2017-10-11] MEDS: CLOPIDOGREL BISULFATE 75 MG TABLET PO SCH (09:45)
[2017-10-11] MEDS: SACUBITRIL/VALSARTAN 97 MG/103 MG TABLET PO SCH ×2 (09:45→21:23)
[2017-10-11] MEDS: AMLODIPINE BESYLATE 10 MG TABLET PO SCH (09:46)
[2017-10-11] MEDS: FUROSEMIDE 40 MG TABLET PO SCH ×2 (09:46→17:40)
[2017-10-11] MEDS: DIGOXIN 0.125 MG TABLET PO SCH (09:46)
[2017-10-11] MEDS: INSULIN LISPRO 100 UNIT/ML 3 ML VIAL SUBCUT PRN ×3 (09:46→21:32)
[2017-10-12] MEDS: ISOSORBIDE MONONITRATE 20 MG TABLET PO SCH (05:16)
[2017-10-12] MEDS: GABAPENTIN 300 MG CAPSULE PO SCH ×2 (05:16→12:12)
[2017-10-12] MEDS: HYDRALAZINE HCL 50 MG TABLET PO SCH ×2 (05:16→15:52)
[2017-10-12] MEDS: LANSOPRAZOLE 30 MG TAB.RAP.DR PO SCH (05:17)
[2017-10-12] MEDS: HEPARIN SOD (PORCINE) 5,000 UNIT/ML 1 ML SYRINGE SUBCUT SCH ×2 (05:17→15:52)
[2017-10-12] MEDS: OXYCODONE HCL IR 5 MG TABLET PO PRN (07:59)
[2017-10-12] MEDS: INSULIN LISPRO 100 UNIT/ML 3 ML VIAL SUBCUT PRN ×2 (07:59→12:15)
[2017-10-12] MEDS: AMLODIPINE BESYLATE 10 MG TABLET PO SCH (12:10)
[2017-10-12] MEDS: SACUBITRIL/VALSARTAN 97 MG/103 MG TABLET PO SCH (12:11)
[2017-10-12] MEDS: CARVEDILOL 12.5 MG TABLET PO SCH (12:11)
[2017-10-12] MEDS: CLOPIDOGREL BISULFATE 75 MG TABLET PO SCH (12:11)
[2017-10-12] MEDS: DIGOXIN 0.125 MG TABLET PO SCH (12:11)
[2017-10-12] MEDS: FUROSEMIDE 40 MG TABLET PO SCH (12:12)
[2017-10-12 12:52] VITALS: BP 140/55
--- NOTE | 2017-10-12 15:55 | PDOC DISCHARGE SUMMARY ---
General - Admit/Disc Date/PCP Admission Date/Primary Care Provider: 10/06/17 20:49 STEPHAN MICHELET Discharge Date: 10/12/17 - Discharge Diagnosis (1) Hypertensive emergency Is this a current diagnosis for this admission?: Yes (2) Acute on chronic systolic congestive heart failure, NYHA class 3 Is this a current diagnosis for this admission?: Yes (3) Chronic combined systolic and diastolic CHF (congestive heart failure) Is this a current diagnosis for this admission?: Yes (4) Coronary artery disease Is this a current diagnosis for this admission?: Yes (5) S/P CABG (coronary artery bypass graft) Is this a current diagnosis for this admission?: Yes (6) Diabetes mellitus type 2 in obese Is this a current diagnosis for this admission?: Yes (7) 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 2 diabetes mellitus Is this a current diagnosis for this admission?: Yes (8) Hyperlipidemia Is this a current diagnosis for this admission?: Yes - Additional Information Resuscitation Status: Full Code Discharge Diet: Cardiac, Diabetic Discharge Activity: Activity As Tolerated, Balance Activity w/Rest, Slowly Increase Activity, Weigh Daily Prescriptions: Digoxin [Lanoxin 0.125 mg Tablet] 0.125 mg PO DAILY #30 tablet Home Medications: Clopidogrel Bisulfate [Plavix 75 mg Tablet] 75 mg PO DAILY 06/19/17 Furosemide [Lasix 40 mg Tablet] 40 mg PO BID 06/19/17 Amlodipine Besylate [Norvasc 10 mg Tablet] 10 mg PO DAILY 08/09/17 Oxycodone HCl 5 mg PO Q6HP PRN 08/09/17 Pravastatin Sodium [Pravachol] 20 mg PO QHS 08/09/17 Sacubitril/Valsartan [Entresto 97 mg-103 mg Tablet] 1 tab PO BID 08/09/17 Carvedilol 6.25 mg PO BID 10/06/17 Gabapentin 300 mg PO QID 10/06/17 Hydralazine HCl 50 mg PO TID 10/06/17 Isosorbide Mononitrate [Ismo 20 mg Tablet] 20 mg PO Q8H 10/06/17 Digoxin [Lanoxin 0.125 mg Tablet] 0.125 mg PO DAILY #30 tablet 10/12/17 History of Present Illness History of Present Illness: JAVIER BURGER is a 62 year old black female patient with past medical history of CHF, CAD, history of [place], PAD, HTN, HLD and diabetes mellitus, who presents with several weeks history of progressive shortness of breath and difficulty of ambulation at her baseline patient ambulates with the help of walker.. Initially her shortness of breath was precipitated with exertion now she has shortness of breath at rest also. Patient claims that she has been taking her heart medications regularly and appropriately. She denies taking over-the- counter NSAID. She denies eating salty diet. Her initial workup shows BNP of 10,000 and chest x-ray shows pulmonary vascular congestion. At ER her blood pressure found 196/116 and she has been started on nitroglycerin drip. Patient denies chills, fever, cough, chest pain, palpitation, diaphoresis, nausea, vomiting, diarrhea, dysuria or urgency. No headache dizziness or blurring of vision. She has bilateral leg swelling, orthopnea, PND. Hospital Course Hospital Course: Patient responded to IV Lasix therapy and adjustment of her medication for acute systolic CHF. She was seen in consultation by Dr. Mayer, computer technician, who agreed with medication management. Her symptoms did improve. She denied any chest pain or difficulty with breathing. Her leg edema significantly improved since admission. Her P.O intake is satisfactory without nausea or vomiting. She is agreeable to discharge home today with enrollment in CHF monitoring program with [facility]. She will follow up in the office as instructed upon discharge. Physical Exam Vital Signs: Temp Pulse Resp BP Pulse Ox 98.6 F 65 16 140/55 H 100 10/12/17 12:13 10/12/17 14:00 10/12/17 12:13 10/12/17 12:13 10/12/17 12:13 Intake & Output 10/11/17 10/12/17 10/13/17 06:59 06:59 06:59 Intake Total 690 1089 Output Total 1425 1292 Balance -735 -203 Weight 111 kg 115.1 kg Physical Exam: General appearance: PRESENT: remain on supplemental oxygen via nasal cannula., morbidly obese Mouth exam: PRESENT: moist Respiratory exam: PRESENT: decreased breath sounds - at lung bases Cardiovascular exam: PRESENT: RRR. ABSENT: diastolic murmur, rubs, systolic murmur Vascular exam: ABSENT: pallor GI/Abdominal exam: PRESENT: normal bowel sounds, soft. ABSENT: distended, guarding, mass, organomegaly, rebound, tenderness Extremities exam: PRESENT: improving pedal edema Musculoskeletal exam: PRESENT: deformity - related to granulating chronic diabetic foot ulcers Neurological exam: PRESENT: alert, awake, oriented to person, oriented to place , oriented to time, oriented to situation, CN II-XII grossly intact. ABSENT: motor sensory deficit Psychiatric exam: PRESENT: appropriate affect, normal mood. ABSENT: homicidal ideation, suicidal ideation Skin exam: PRESENT: dry, warm Results Laboratory Results: 10/11/17 05:55 10/11/17 05:55 10/11/17 05:55 NT-Pro-B Natriuret Pep 3780 H Impressions: Chest X-Ray 10/06/17 17:14 IMPRESSION: CARDIAC ENLARGEMENT. VASCULAR CONGESTION. Abdomen Ultrasound 10/06/17 18:23 IMPRESSION: 1. Hepatomegaly. Trace ascites. 2. Cholelithiasis. No evidence of acute cholecystitis. Head CT 10/07/17 00:00 IMPRESSION: MILD CHRONIC CHANGES OF ATROPHY AND MICROVASCULAR ISCHEMIA. NO ACUTE PROCESS. EVIDENCE OF ACUTE STROKE: NO. Qualifiers - * PATIENT BEING DISCHARGED WITH ANY OF THE FOLLOWING DIAGNOSIS: Heart Failure AK Pt discharged ACEI/ARBS?: No HF Pt being discharged on ACEI for LVEF less than 40%?: No Reason(s) for not prescribing ACEI:: Medical Contraindication HF Pt being discharged on ARBS for LVEF less than 40%?: Yes HF Pt with Afib discharged with Warfarin?: No Reason(s) for not prescribing Warfarin:: Not indicated HF Pt discharged on evidence-based Beta Bee:: Yes Plan Discharge Plan: Discharge home today with [facility] for CHF program. Follow up in office as instructed upon discharge. Time Spent: Greater than 30 Minutes - I had extensive discussion with patient regarding dietary restiction compliance for CHF and Diabetes Mellitus management. I discussed the benefoits of her enrollment in CHF program.
== END 2017-10-12 17:32 | disposition home health service (06) | DRG 304 ==
LOC: ER 16:46 → EH 20:49 → 3S 10-07 06:45
PROVIDERS: ADMIT Internal Medicine Geriatric Medicine; ATTEND Internal Medicine Geriatric Medicine
PROC: 5A09557 Assistance with Respiratory Ventilation, Greater than 96 Consecutive Hours, Continuous Positive Airway Pressure (ICD-10-PCS; principal; 2017-10-06)
DX: I16.1 Hypertensive emergency (principal); I50.43 Acute on chronic combined systolic (congestive) and diastolic (congestive) heart failure; I50.22 Chronic systolic (congestive) heart failure; L97.425 Non-pressure chronic ulcer of left heel and midfoot with muscle involvement without evidence of necrosis; Z68.41 Body mass index [BMI] 40.0-44.9, adult; I11.0 Hypertensive heart disease with heart failure; I25.10 Atherosclerotic heart disease of native coronary artery without angina pectoris; E11.51 Type 2 diabetes mellitus with diabetic peripheral angiopathy without gangrene; E11.621 Type 2 diabetes mellitus with foot ulcer; E78.00 Pure hypercholesterolemia, unspecified; D63.8 Anemia in other chronic diseases classified elsewhere; E66.9 Obesity, unspecified; K80.20 Calculus of gallbladder without cholecystitis without obstruction; I25.2 Old myocardial infarction; Z95.1 Presence of aortocoronary bypass graft; Z88.6 Allergy status to analgesic agent; Z91.14 Patient's other noncompliance with medication regimen; Z86.73 Personal history of transient ischemic attack (TIA), and cerebral infarction without residual deficits; Z82.49 Family history of ischemic heart disease and other diseases of the circulatory system
CPT/HCPCS: 36415; 51702; 70450; 71045; 76705; 80048; 80053; 82550; 82553; 82803; 82962; 83036; 83690; 83880; 84443; 84484; 85025; 93005; 93010; 93306; 94660; 96365; 96375; 99291; G8978-GP; G8979-GP; J1644; J1815; J1940; J2270; J2405; J3490

== ENCOUNTER 2017-10-15 19:18 | Observation (INO) | payer MEDICARE, MEDICAID ==
[2017-10-15] MEDS ORDERED: ASPIRIN 81 MG TABLET, CHEWABLE PO ONE (20:31)
[2017-10-15] MEDS ORDERED: FUROSEMIDE INJ/PF 40 MG/4 ML SDV IV ONE (20:35)
--- NOTE | 2017-10-15 20:38 | ER Document Report ---
ED General - General Chief Complaint: Shortness Of Breath Stated Complaint: DIFFICULTY BREATHING Time Seen by Provider: 10/15/17 20:23 Mode of Arrival: Medic Information source: Patient Notes: 62-year-old female with history of congestive heart failure, coronary artery disease, [place], hypertension, hyperlipidemia, diabetes presents emergency department with complaints of shortness of breath. Patient states that she just got out of the hospital 3 days ago after being admitted for congestive heart failure exacerbation. Patient states that she was supposed to be prescribed new medications on discharge. She did not have any prescriptions in her paperwork. Patient states that she did not take any medications for the last 3 days. She contacted her primary care physician's office, . The medications were called into a pharmacy but the patient states that she has been unable to get them. Patient states that she is having worsening shortness of breath. She thinks that her congestive heart failure is flaring up again. She denies any chest pain. TRAVEL OUTSIDE OF THE [place] IN LAST 30 DAYS: No - HPI Patient complains to provider of: Shortness of breath Onset: This morning Onset/Duration: Gradual Severity: None Pain Level: Denies Associated symptoms: None Exacerbated by: Denies Relieved by: Denies Similar symptoms previously: Yes Recently seen / treated by doctor: Yes - Related Data Allergies/Adverse Reactions: pregabalin [From Lyrica] Allergy (Verified 10/15/17 19:21) Past Medical History - Social History Smoking Status: Never Smoker Family History: Reviewed & Not Pertinent, CAD, Hyperlipidemia, Hypertension - Past Medical History Cardiac Medical History: Reports: Hx Congestive Heart Failure, Hx Coronary Artery Disease, Hx Heart Attack, Hx Hypercholesterolemia, Hx Hypertension, Hx Peripheral Vascular Disease Denies: Hx Atrial Fibrillation Pulmonary Medical History: Reports: Hx Bronchitis Denies: Hx Asthma, Hx COPD, Hx Pneumonia, Hx Tuberculosis Neurological Medical History: Reports: Hx Cerebrovascular Accident - 2007. Denies: Hx Seizures Endocrine Medical History: Reports: Hx Diabetes Mellitus Type 1, Hx Diabetes Mellitus Type 2 Renal/ Medical History: Denies: Hx End Stage Renal Disease, Hx Peritoneal Dialysis GI Medical History: Reports: Hx Diverticulitis - diverticulosis. Denies: Hx Gastroesophageal Reflux Disease, Hx Hiatal Hernia Musculoskeltal Medical History: Denies Hx Arthritis Skin Medical History: Denies Hx MRSA Psychiatric Medical History: Denies: Hx Bipolar Disorder, Hx Depression Past Surgical History: Reports: Hx Cardiac Surgery - Quadruple Bypass, Hx Coronary Artery Bypass Graft - July 31 2011, Hx Tonsillectomy, Hx Vascular Surgery. Denies: Hx Appendectomy, Hx Cardiac Catheterization, Hx Section, Hx Cholecystectomy, Hx Hysterectomy, Hx Mastectomy, Hx Tubal Ligation - Immunizations Immunizations up to date: No Hx Diphtheria, Pertussis, Tetanus Vaccination: Yes Hx Pneumococcal Vaccination: 02/04/11 Review of Systems - Review of Systems Constitutional: No symptoms reported EENT: No symptoms reported Cardiovascular: No symptoms reported Respiratory: Short of breath Gastrointestinal: No symptoms reported Genitourinary: No symptoms reported Female Genitourinary: No symptoms reported Musculoskeletal: No symptoms reported Skin: No symptoms reported Hematologic/Lymphatic: No symptoms reported Neurological/Psychological: No symptoms reported -: Yes All other systems reviewed and negative Physical Exam - Vital signs Vitals: Temp Pulse Resp BP Pulse Ox 99.4 F 84 18 172/83 H 96 10/15/17 19:39 10/15/17 19:39 10/15/17 19:39 10/15/17 19:39 10/15/17 19:39 Interpretation: Hypertensive - Notes Notes: PHYSICAL EXAMINATION: GENERAL: Well-appearing, well-nourished and in no acute distress. HEAD: Atraumatic, normocephalic. EYES: Pupils equal round and reactive to light, extraocular movements intact, conjunctiva are normal. ENT: Nares patent, oropharynx clear without exudates. Moist mucous membranes. NECK: Normal range of motion, supple without lymphadenopathy LUNGS: Breath sounds clear to auscultation bilaterally and equal. No wheezes rales or rhonchi. HEART: Regular rate and rhythm without murmurs ABDOMEN: Soft, nontender, nondistended abdomen. No guarding, no rebound. No masses appreciated. Female : deferred Musculoskeletal: Normal range of motion, no pitting or edema. No cyanosis. NEUROLOGICAL: Cranial nerves grossly intact. Normal speech, normal gait. Normal sensory, motor exams PSYCH: Normal mood, normal affect. SKIN: Warm, Dry, normal turgor, no rashes or lesions noted. Course - Re-evaluation Re-evalutation: 10/15/17 22:58 Patient states that she's not feeling any better after lasix. Still complains of shortness of breath. CXR does not show an acute process. BNP is elevated from 3 days ago. I contacted the patient's PCP, Dr. Tafoya. He accepts admission. Patient stable. - Vital Signs Vital signs: Temp Pulse Resp BP Pulse Ox 99.4 F 84 5 L 166/82 H 92 10/15/17 19:39 10/15/17 19:39 10/15/17 22:01 10/15/17 22:01 10/15/17 22:01 - Laboratory Result Diagrams: 10/15/17 21:27 10/15/17 21:27 Laboratory results interpreted by me: 10/15/17 10/15/17 10/15/17 21:27 21:27 21:27 RBC 3.46 L Hgb 10.0 L Hct 30.7 L RDW 17.0 H Monocytes % 13.9 H Glucose 196 H Direct Bilirubin 0.8 H Alkaline Phosphatase 252 H NT-Pro-B Natriuret Pep 4730 H Total Protein 8.6 H - Diagnostic Test Radiology reviewed: Image reviewed, Reports reviewed - EKG Interpretation by Me Rate: Normal Rhythm: NSR Additional EKG results interpreted by me: 10/15/17 22:59 EKG: Ventricular rate 81, [place] interval 160, castration 94, QTc 455, sinus rhythm. Premature ventricular complexes. No acute process. Discharge - Discharge Clinical Impression: Acute on chronic systolic CHF (congestive heart failure) Condition: Stable Disposition: ADMITTED OBSERVATION Admitting Provider: [facility] Admitted: Telemetry Referrals: STEPHAN TAFOYA MD [Primary Care Provider] - Follow up as needed
--- NOTE | 2017-10-15 21:13 | RADIOLOGY REPORT (SQ) ---
EXAM DESCRIPTION: CHEST SINGLE VIEW COMPLETED DATE/TIME: 10/15/2017 8:43 pm REASON FOR STUDY: shortness of breath COMPARISON: 10/06/2017 EXAM PARAMETERS: NUMBER OF VIEWS: One view. TECHNIQUE: Single frontal radiographic view of the chest acquired. RADIATION DOSE: NA LIMITATIONS: None. FINDINGS: LUNGS AND PLEURA: No acute opacities, masses or pneumothorax. No pleural effusion. MEDIASTINUM AND HILAR STRUCTURES: Stable. HEART AND VASCULAR STRUCTURES: Stable. BONES: No acute findings. HARDWARE: Stable. OTHER: No other significant finding. IMPRESSION: NO ACUTE RADIOGRAPHIC FINDING IN THE CHEST. TECHNICAL DOCUMENTATION: JOB ID: [id number] [place]-72 2010 [employer]- All Rights Reserved Reading location - IP/workstation name: [email or web address]
[2017-10-15 21:53] LABS: ABSOLUTE EOSINOPHILS # (AUTO) 0.1 10^3/uL (0.0-0.6); ABSOLUTE LYMPHOCYTES (AUTO) 1.4 10^3/uL (0.5-4.7); ABSOLUTE MONOCYTES (AUTO) 0.8 10^3/uL (0.1-1.4); ABSOLUTE NEUT (AUTO) 3.4 10^3/uL (1.7-8.2); BASOPHILS % (AUTO) 0.5 % (0-2); EOSINOPHILS % (AUTO) 1.8 % (0-6); HEMATOCRIT 30.7 % (36.0-47.0); LYMPHOCYTES % (AUTO) 23.9 % (13-45); MEAN CORPUSCULAR HEMOGLOBIN 28.9 pg (27.0-33.4); MEAN CORPUSCULAR HGB CONC 32.6 g/dL (32.0-36.0); MEAN CORPUSCULAR VOLUME 89 fl (80-97); MONOCYTES % (AUTO) 13.9 % (3-13); PLATELET COUNT 264 10^3/uL (150-450); RED BLOOD COUNT 3.46 10^6/uL (3.72-5.28); SEGMENTED NEUTROPHILS % (AUTO) 59.9 % (42-78); TOTAL CELLS COUNTED % (AUTO) 100 %; WHITE BLOOD COUNT 5.6 10^3/uL (4.0-10.5)
[2017-10-15 22:04] LABS: NT PRO BNP 4730 pg/mL (5-900)
[2017-10-15 22:07] LABS: ALANINE AMINOTRANSFERASE 14 U/L (9-52); ALBUMIN 3.8 g/dL (3.5-5.0); ALKALINE PHOSPHATASE 252 U/L (38-126); ANION GAP 11 (5-19); ASPARTATE AMINO TRANSFERASE 30 U/L (14-36); BILIRUBIN,DIRECT 0.8 mg/dL (0.0-0.4); BILIRUBIN,TOTAL 1.2 mg/dL (0.2-1.3); BLOOD UREA NITROGEN 20 mg/dL (7-20); CALCIUM 9.8 mg/dL (8.4-10.2); CARBON DIOXIDE 30 mmol/L (22-30); CHLORIDE 102 mmol/L (98-107); GLUCOSE 196 mg/dL (75-110); SODIUM 142.7 mmol/L (137-145); TOTAL PROTEIN 8.6 g/dL (6.3-8.2)
[2017-10-15 22:08] LABS: TROPONIN I < 0.012 ng/mL
[2017-10-16] MEDS ORDERED: DEXTROSE 50%-WATER 25 GM/50 ML DISP.SYRIN IV PRN ×2 (01:27)
[2017-10-16] MEDS ORDERED: GLUCAGON,HUMAN RECOMB 1 MG INJ IM PRN (01:27)
[2017-10-16] MEDS ORDERED: DEXTROSE 40% GEL 15 GM TUBE PO PRN ×2 (01:27)
--- NOTE | 2017-10-16 07:39 | EKG REPORT ---
SEVERITY:- ABNORMAL ECG - SINUS RHYTHM MULTIFORM VENTRICULAR PREMATURE COMPLEXES PROBABLE LEFT ATRIAL ABNORMALITY LVH WITH SECONDARY REPOLARIZATION ABNORMALITY : Confirmed by: Yobany Marino MD 16-Oct-2017 07:39:27
[2017-10-16] MEDS: INSULIN LISPRO 100 UNIT/ML 3 ML VIAL SUBCUT PRN ×2 (08:00→17:06)
--- NOTE | 2017-10-16 08:43 | PDOC H&P ---
History of Present Illness Admission Date/PCP: 10/15/17 23:08 [facility] Patient complains of: Wosening difficuty with breathing History of Present Illness: JAVIER BURGER is a 62 year old female who was recently discharged from this facility following admission for acute decompensated combine CHF. Patient reported that she could not find her prescription upon arriving at her home. She has been off medication for 3 days before coming to the ED with worsening shortness of breath. She denied any chest pain or palpitation. She described orthopnea. She denied any coughing, fever or chills. She reported elevated blood glucose at home. No headache, dizziness, nausea, or vomiting. No dysuria, flank pain or hematuria. Her evaluation in the ED was remarkable for vascular congestion and worsening NT-Pro BNP level. She was managed with IV Lasix with some improvement in her breathing. Her morbidities include Combined Congestive Heart Failure, Hypertension, Coronary Artery Disease, CAD with old NH, Hypercholesterolemia, Peripheral Vascular Disease, and Diabetes Mellitus Type 2 with left foot chronic diabetic ulcer. Past Medical History Cardiac Medical History: Reports: Congestive Heart Failure, Coronary Artery Disease, Myocardial Infarction, Hyperlipidema, Hypertension, Peripheral Vascular Disease Denies: Atrial Fibrillation Pulmonary Medical History: Reports: Bronchitis Denies: Asthma, Chronic Obstructive Pulmonary Disease (COPD), Pneumonia, Tuberculosis Neurological Medical History: Denies: Seizures Endocrine Medical History: Reports: Diabetes Mellitus Type 1, Diabetes Mellitus Type 2 Renal/ Medical History: Denies: End Stage Renal Disease GI Medical History: Reports: Diverticulitis - diverticulosis Denies: Gastroesophageal Reflux Disease, Hiatal Hernia Musculoskeltal Medical History: Denies: Arthritis Psychiatric Medical History: Denies: Bipolar Disorder, Depression Hematology: Denies: Anemia, Hemophilia, Sickle Cell Disease Past Surgical History Past Surgical History: Reports: Coronary Artery Bypass Graft - July 31 2011, Tonsillectomy, Vascular Surgery Denies: Amputation, Appendectomy, Cardiac Catheterization, Section, Cholecystectomy, Hysterectomy, Mastectomy, Tubal Ligation Social History Smoking Status: Never Smoker Frequency of Alcohol Use: None Hx Recreational Drug Use: No Drugs: None Hx Prescription Drug Abuse: No Family History Family History: Reviewed & Not Pertinent, CAD, Hyperlipidemia, Hypertension Parental Family History Reviewed: Yes Children Family History Reviewed: Yes Sibling(s) Family History Reviewed.: Yes Medication/Allergy Home Medications: Oxycodone HCl 5 mg PO Q6HP PRN 08/09/17 Amlodipine Besylate [Norvasc 10 mg Tablet] 10 mg PO DAILY #30 tablet 10/12/17 Carvedilol 6.25 mg PO BID #60 tablet 10/12/17 Clopidogrel Bisulfate [Plavix 75 mg Tablet] 75 mg PO DAILY #30 tablet 10/12/17 Digoxin [Lanoxin 0.125 mg Tablet] 0.125 mg PO DAILY #30 tablet 10/12/17 Furosemide [Lasix 40 mg Tablet] 40 mg PO BID #60 tablet 10/12/17 Gabapentin 300 mg PO QID #120 capsule 10/12/17 Hydralazine HCl 50 mg PO TID #90 tablet 10/12/17 Isosorbide Mononitrate [Ismo 20 mg Tablet] 20 mg PO Q8H #90 tablet 10/12/17 Pravastatin Sodium [Pravachol] 20 mg PO QHS #30 tablet 10/12/17 Sacubitril/Valsartan [Entresto 97 mg-103 mg Tablet] 1 tab PO BID #60 tablet 12/22 Allergies/Adverse Reactions: pregabalin [From Lyrica] Allergy (Verified 10/15/17 19:21) Review of Systems Constitutional: ABSENT: chills, fever(s), headache(s), weight gain, weight loss Eyes: ABSENT: visual disturbances Ears: ABSENT: hearing changes Cardiovascular: PRESENT: dyspnea on exertion. ABSENT: as per HPI, chest pain, edema, orthropnea, palpitations, other Respiratory: PRESENT: dyspnea. ABSENT: as per HPI, cough, hemoptysis, sputum, other Gastrointestinal: ABSENT: abdominal pain, constipation, diarrhea, hematemesis, hematochezia, nausea, vomiting Genitourinary: ABSENT: dysuria, hematuria Musculoskeletal: PRESENT: deformity - chronic left foot heel ulcer Integumentary: PRESENT: wounds - chronic left foot heel ulcer Neurological: ABSENT: abnormal gait, abnormal speech, confusion, dizziness, focal weakness, syncope Psychiatric: ABSENT: anxiety, depression, homidical ideation, suicidal ideation Endocrine: ABSENT: cold intolerance, heat intolerance, polydipsia, polyuria Hematologic/Lymphatic: ABSENT: easy bleeding, easy bruising, lymphadenopathy Allergic/Immunologic: ABSENT: seasonal rhinorrhea Physical Exam Vital Signs: Temp Pulse Resp BP Pulse Ox 98.4 F 84 20 166/83 H 97 10/16/17 05:05 10/15/17 19:39 10/16/17 08:01 10/16/17 08:00 10/16/17 08:01 Intake & Output 10/15/17 10/16/17 10/17/17 06:59 06:59 06:59 Output Total 800 Balance -800 General appearance: PRESENT: no acute distress, well-developed, well-nourished Head exam: PRESENT: atraumatic, normocephalic Eye exam: PRESENT: conjunctiva pink, EOMI, PERRLA. ABSENT: scleral icterus Ear exam: PRESENT: normal external ear exam Mouth exam: PRESENT: moist, tongue midline Teeth exam: PRESENT: poor dentation Neck exam: PRESENT: JVD Respiratory exam: PRESENT: clear to auscultation jerrica, decreased breath sounds - lung bases Cardiovascular exam: PRESENT: RRR. ABSENT: diastolic murmur, rubs, systolic murmur Pulses: PRESENT: +1 pedal pulses bilateral Vascular exam: PRESENT: normal capillary refill. ABSENT: pallor GI/Abdominal exam: PRESENT: normal bowel sounds, soft. ABSENT: distended, guarding, mass, organolmegaly, rebound, tenderness Rectal exam: PRESENT: deferred Extremities exam: ABSENT: pedal edema Musculoskeletal exam: PRESENT: deformity - left foot heel ulcer Neurological exam: PRESENT: alert, awake, oriented to person, oriented to place , oriented to time, oriented to situation, CN II-XII grossly intact. ABSENT: motor sensory deficit Psychiatric exam: PRESENT: appropriate affect, normal mood. ABSENT: homicidal ideation, suicidal ideation Skin exam: PRESENT: dry, warm Results Laboratory Results: I reviewed her lab results on [facility] and make significant contribution to my medical decision making. Impressions: Chest X-Ray 10/15/17 20:31 IMPRESSION: NO ACUTE RADIOGRAPHIC FINDING IN THE CHEST. Assessment & Plan - Diagnosis (1) Chronic combined systolic and diastolic CHF (congestive heart failure) Is this a current diagnosis for this admission?: Yes Plan: See admitting attending physician orders. (2) Hypertension Qualifiers: Hypertension type: essential hypertension Qualified Code(s): I10 - Essential (primary) hypertension Is this a current diagnosis for this admission?: Yes Plan: See admitting attending physician orders. (3) Diabetes mellitus type 2 in obese Is this a current diagnosis for this admission?: Yes Plan: See admitting attending physician orders. 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 2 diabetes mellitus Qualifiers: Diabetic foot ulcer location: heel Non-pressure ulcer stage: with muscle involvement without evidence of necrosis Qualified Code(s): E11.621 - Type 2 diabetes mellitus with foot ulcer; L97.425 - Non-pressure chronic ulcer of left heel and midfoot with muscle involvement without evidence of necrosis; L97.425 - Non-pressure chronic ulcer of left heel and midfoot with muscle involvement without evidence of necrosis; L97.425 - Non-pressure chronic ulcer of left heel and midfoot with muscle involvement without evidence of necrosis; L97.425 - Non- pressure chronic ulcer of left heel and midfoot with muscle involvement without evidence of necrosis Is this a current diagnosis for this admission?: Yes Plan: See admitting attending physician orders. (5) Hyperlipidemia Qualifiers: Hyperlipidemia type: unspecified Qualified Code(s): E78.5 - Hyperlipidemia , unspecified Is this a current diagnosis for this admission?: Yes Plan: See admitting attending physician orders. (6) CAD (coronary artery disease) Qualifiers: Coronary Disease-Associated Artery/Lesion type: unspecified vessel or lesion type [place] vs. transplanted heart: [place] heart Associated angina: without angina Qualified Code(s): I25.10 - Atherosclerotic heart disease of [place] coronary artery without angina pectoris Is this a current diagnosis for this admission?: Yes Plan: See admitting attending physician orders. (7) S/P CABG (coronary artery bypass graft) Is this a current diagnosis for this admission?: Yes Plan: See admitting attending physician orders. (8) Chronic pain syndrome Is this a current diagnosis for this admission?: Yes Plan: See admitting attending physician orders. (9) Chronic use of opiate for therapeutic purpose Is this a current diagnosis for this admission?: Yes Plan: See admitting attending physician orders. - Time Time Spent: 50 to 70 Minutes Medications reviewed and adjusted accordingly: Yes Anticipated discharge: Home with Homehealth Within: within 48 hours - Plan Summary Plan Summary: See admitting attending physician orders.
[2017-10-16] MEDS ORDERED: INSULIN LISPRO 100 UNIT/ML 3 ML VIAL SUBCUT SCH (16:15)
[2017-10-16] MEDS: OXYCODONE HCL IR 5 MG TABLET PO PRN (17:06)
[2017-10-16] MEDS: GABAPENTIN 300 MG CAPSULE PO SCH ×2 (17:06→22:55)
[2017-10-16] MEDS ORDERED: LANSOPRAZOLE 30 MG TAB.RAP.DR PO ONE (18:30)
[2017-10-16] MEDS: SACUBITRIL/VALSARTAN 97 MG/103 MG TABLET PO SCH (22:55)
[2017-10-16] MEDS: ATORVASTATIN CALCIUM 10 MG TABLET PO SCH (22:55)
[2017-10-16] MEDS: HYDRALAZINE HCL 50 MG TABLET PO SCH (22:55)
[2017-10-16] MEDS: INSULIN DETEMIR 100 UNIT/ML 3 ML PEN SUBCUT SCH (22:56)
[2017-10-16] MEDS: ISOSORBIDE MONONITRATE 20 MG TABLET PO SCH (22:56)
[2017-10-16] MEDS: CARVEDILOL 6.25 MG TABLET PO SCH (22:56)
[2017-10-17] MEDS: HYDRALAZINE HCL 50 MG TABLET PO SCH ×3 (06:09→22:53)
[2017-10-17] MEDS: LANSOPRAZOLE 30 MG TAB.RAP.DR PO SCH (06:09)
[2017-10-17] MEDS: ISOSORBIDE MONONITRATE 20 MG TABLET PO SCH ×3 (06:09→22:53)
[2017-10-17] MEDS: GABAPENTIN 300 MG CAPSULE PO SCH ×4 (06:09→22:56)
--- NOTE | 2017-10-17 07:49 | PDOC PROGRESS REPORT ---
Subjective Progress Note for:: 10/17/17 Subjective:: Patient continue to complain about abdominal pain with minimal relief with Prevacid administration. Low accu-chek this am but she did agreed with poor po intake at dinner. No chest pain or difficulty with her breathing. No reported fever or chills. Reason For Visit: CHRONIC COMBINED CHF, NONCOMPLIANCE WITH Physical Exam Vital Signs: Temp Pulse Resp BP Pulse Ox 97.6 F 61 19 137/66 H 95 10/17/17 03:32 10/17/17 07:00 10/17/17 00:02 10/17/17 03:32 10/17/17 03:32 Intake & Output 10/16/17 10/17/17 10/18/17 06:59 06:59 06:59 Intake Total 100 Output Total 1400 Balance -1300 Weight 104.1 kg General appearance: PRESENT: no acute distress, obese Head exam: PRESENT: atraumatic, normocephalic Mouth exam: PRESENT: moist Teeth exam: PRESENT: poor dentation Respiratory exam: PRESENT: clear to auscultation jerrica, decreased breath sounds - at lung bases Cardiovascular exam: PRESENT: RRR. ABSENT: diastolic murmur, rubs, systolic murmur Vascular exam: ABSENT: pallor GI/Abdominal exam: PRESENT: normal bowel sounds, soft. ABSENT: distended, guarding, mass, organolmegaly, rebound, tenderness Extremities exam: ABSENT: pedal edema Musculoskeletal exam: PRESENT: deformity - related to heel ulcer and multiple joints involvement with arthritis Neurological exam: PRESENT: alert, awake, oriented to person, oriented to place , oriented to time, oriented to situation, CN II-XII grossly intact. ABSENT: motor sensory deficit Psychiatric exam: PRESENT: appropriate affect, normal mood. ABSENT: homicidal ideation, suicidal ideation Skin exam: PRESENT: dry, warm Results Impressions: Chest X-Ray 10/15/17 20:31 IMPRESSION: NO ACUTE RADIOGRAPHIC FINDING IN THE CHEST. Assessment & Plan - Diagnosis (1) Chronic combined systolic and diastolic CHF (congestive heart failure) Is this a current diagnosis for this admission?: Yes (2) Hypertension Qualifiers: Hypertension type: essential hypertension Qualified Code(s): I10 - Essential (primary) hypertension Is this a current diagnosis for this admission?: Yes (3) Diabetes mellitus type 2 in obese Is this a current diagnosis for this admission?: Yes 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 2 diabetes mellitus Qualifiers: Diabetic foot ulcer location: heel Non-pressure ulcer stage: with muscle involvement without evidence of necrosis Qualified Code(s): E11.621 - Type 2 diabetes mellitus with foot ulcer; L97.425 - Non-pressure chronic ulcer of left heel and midfoot with muscle involvement without evidence of necrosis; L97.425 - Non-pressure chronic ulcer of left heel and midfoot with muscle involvement without evidence of necrosis; L97.425 - Non-pressure chronic ulcer of left heel and midfoot with muscle involvement without evidence of necrosis; L97.425 - Non- pressure chronic ulcer of left heel and midfoot with muscle involvement without evidence of necrosis Is this a current diagnosis for this admission?: Yes (5) Hyperlipidemia Qualifiers: Hyperlipidemia type: unspecified Qualified Code(s): E78.5 - Hyperlipidemia , unspecified Is this a current diagnosis for this admission?: Yes (6) CAD (coronary artery disease) Qualifiers: Coronary Disease-Associated Artery/Lesion type: unspecified vessel or lesion type [place] vs. transplanted heart: [place] heart Associated angina: without angina Qualified Code(s): I25.10 - Atherosclerotic heart disease of [place] coronary artery without angina pectoris Is this a current diagnosis for this admission?: Yes (7) S/P CABG (coronary artery bypass graft) Is this a current diagnosis for this admission?: Yes (8) Chronic pain syndrome Is this a current diagnosis for this admission?: Yes (9) Chronic use of opiate for therapeutic purpose Is this a current diagnosis for this admission?: Yes - Time Time Spent with patient: 25-34 minutes Medications reviewed and adjusted accordingly: Yes Anticipated discharge: Home with Homehealth Within: within 24 hours - Plan Summary Plan Summary: Maintain on current medication management. Add Mylanta 30 ml po qid prn for abdominal pain. Follow up with community pharmacy for medication delivery confirmation. Possible discharge home later today or tomorrow am.
[2017-10-17] MEDS ORDERED: MAG HYDROX/AL HYDROX/SIMETH SUSP 30 ML UDCUP PO PRN (07:54)
[2017-10-17] MEDS ORDERED: FUROSEMIDE 40 MG TABLET PO SCH (08:00)
[2017-10-17] MEDS: INSULIN DETEMIR 100 UNIT/ML 3 ML PEN SUBCUT SCH ×2 (09:58→22:53)
[2017-10-17] MEDS: ASPIRIN 81 MG TABLET, ENT COATED PO SCH (09:58)
[2017-10-17] MEDS: AMLODIPINE BESYLATE 10 MG TABLET PO SCH (09:58)
[2017-10-17] MEDS: CARVEDILOL 6.25 MG TABLET PO SCH ×2 (09:58→22:53)
[2017-10-17] MEDS: CLOPIDOGREL BISULFATE 75 MG TABLET PO SCH (09:58)
[2017-10-17] MEDS: SACUBITRIL/VALSARTAN 97 MG/103 MG TABLET PO SCH ×2 (09:58→22:53)
[2017-10-17] MEDS: DIGOXIN 0.125 MG TABLET PO SCH (09:58)
[2017-10-17] MEDS: OXYCODONE HCL IR 5 MG TABLET PO PRN (10:04)
[2017-10-17] MEDS: ATORVASTATIN CALCIUM 10 MG TABLET PO SCH (22:53)
[2017-10-18] MEDS: LANSOPRAZOLE 30 MG TAB.RAP.DR PO SCH (05:10)
[2017-10-18] MEDS: ISOSORBIDE MONONITRATE 20 MG TABLET PO SCH (05:10)
[2017-10-18] MEDS: HYDRALAZINE HCL 50 MG TABLET PO SCH (05:11)
[2017-10-18] MEDS: GABAPENTIN 300 MG CAPSULE PO SCH ×2 (05:11→12:45)
--- NOTE | 2017-10-18 08:40 | PDOC DISCHARGE SUMMARY ---
General - Admit/Disc Date/PCP Admission Date/Primary Care Provider: 10/15/17 23:08 STEPHAN TAFOYA Discharge Date: 10/18/17 - Discharge Diagnosis (1) Chronic combined systolic and diastolic CHF (congestive heart failure) Is this a current diagnosis for this admission?: Yes (2) Hypertension Is this a current diagnosis for this admission?: Yes (3) Diabetes mellitus type 2 in obese Is this a current diagnosis for this admission?: Yes 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 2 diabetes mellitus Is this a current diagnosis for this admission?: Yes (5) Hyperlipidemia Is this a current diagnosis for this admission?: Yes (6) CAD (coronary artery disease) Is this a current diagnosis for this admission?: Yes (7) S/P CABG (coronary artery bypass graft) Is this a current diagnosis for this admission?: Yes (8) Chronic pain syndrome Is this a current diagnosis for this admission?: Yes (9) Chronic use of opiate for therapeutic purpose Is this a current diagnosis for this admission?: Yes - Additional Information Discharge Diet: Cardiac, Diabetic Discharge Activity: Activity As Tolerated, Balance Activity w/Rest, Weigh Daily Prescriptions: Amlodipine Besylate [Norvasc 10 mg Tablet] 10 mg PO DAILY #30 tablet Aspirin [Aspirin EC] 81 mg PO DAILY #30 tablet. Carvedilol [Coreg 6.25 mg Tablet] 6.25 mg PO Q12 #60 tablet Clopidogrel Bisulfate [Plavix 75 mg Tablet] 75 mg PO DAILY #30 tablet Digoxin [Lanoxin] 125 mcg PO DAILY #30 tablet Furosemide [Lasix 40 mg Tablet] 40 mg PO BID #60 tablet Gabapentin [Neurontin 300 mg Capsule] 300 mg PO Q6 #90 capsule Hydralazine HCl [Apresoline 50 mg Tablet] 50 mg PO Q8 #90 tablet Insulin Detemir [Levemir Flextouch] 50 unit SQ Q12 #5 insuln.pen Insulin Lispro [Humalog Kwikpen U-100] 1 unit SQ ACHS PRN #5 insuln.pen PRN Reason: Isosorbide Mononitrate [Ismo 20 mg Tablet] 20 mg PO Q8 #90 tablet Pravastatin Sodium [Pravachol] 20 mg PO QHS #30 tablet Sacubitril/Valsartan [Entresto 97 mg/103 mg Tablet] 1 tab PO Q12 #60 tablet Home Medications: Insulin Lispro [Humalog Insulin (Lispro) 100 unit/mL] 0 unit SUBCUT .SLD SCALE 10/16/17 Oxycodone HCl [Oxycodone HCl 10 MG Tablet] 10 mg PO Q6HP PRN 10/16/17 Amlodipine Besylate [Norvasc 10 mg Tablet] 10 mg PO DAILY #30 tablet 10/18/17 Aspirin [Aspirin EC] 81 mg PO DAILY #30 tablet. 10/18/17 Carvedilol [Coreg 6.25 mg Tablet] 6.25 mg PO Q12 #60 tablet 10/18/17 Clopidogrel Bisulfate [Plavix 75 mg Tablet] 75 mg PO DAILY #30 tablet 10/18/17 Digoxin [Lanoxin] 125 mcg PO DAILY #30 tablet 10/18/17 Furosemide [Lasix 40 mg Tablet] 40 mg PO BID #60 tablet 10/18/17 Gabapentin [Neurontin 300 mg Capsule] 300 mg PO Q6 #90 capsule 10/18/17 Hydralazine HCl [Apresoline 50 mg Tablet] 50 mg PO Q8 #90 tablet 10/18/17 Insulin Detemir [Levemir Flextouch] 50 unit SQ Q12 #5 insuln.pen 10/18/17 Insulin Lispro [Humalog Kwikpen U-100] 1 unit SQ ACHS PRN #5 insuln.pen Isosorbide Mononitrate [Ismo 20 mg Tablet] 20 mg PO Q8 #90 tablet 10/18/17 Pravastatin Sodium [Pravachol] 20 mg PO QHS #30 tablet 10/18/17 Sacubitril/Valsartan [Entresto 97 mg/103 mg Tablet] 1 tab PO Q12 #60 tablet History of Present Illness Patient complains of: Worsening difficulty with breathing History of Present Illness: JAVIER BURGER is a 62 year old female who was recently discharged from this facility following admission for acute decompensated combine CHF. Patient reported that she could not find her prescription upon arriving at her home. She has been off medication for 3 days before coming to the ED with worsening shortness of breath. She denied any chest pain or palpitation. She described orthopnea. She denied any coughing, fever or chills. She reported elevated blood glucose at home. No headache, dizziness, nausea, or vomiting. No dysuria, flank pain or hematuria. Her evaluation in the ED was remarkable for vascular congestion and worsening NT-Pro BNP level. She was managed with IV Lasix with some improvement in her breathing. Her morbidities include Combined Congestive Heart Failure, Hypertension, Coronary Artery Disease, CAD with old VT, Hypercholesterolemia, Peripheral Vascular Disease, and Diabetes Mellitus Type 2 with left foot chronic diabetic ulcer. Hospital Course Hospital Course: Patient was maintained on her preadmission medication with resolution of her symptoms. She did admitted to medication and dietary noncompliance at home since her last hospital discharge that precipitated her decompensation and presentation to the ED. We contacted the local pharmacy and patient assured that her sister will cotton picker her medications. I completed a new set of prescriptions for her in case this arrangement did not happen since her claim was that she was not given prescriptions during her last discharge. Physical Exam Vital Signs: Temp Pulse Resp BP Pulse Ox 98.3 F 63 17 116/52 L 95 10/18/17 07:37 10/18/17 07:37 10/18/17 07:37 10/18/17 07:37 10/18/17 07:37 Intake & Output 10/17/17 10/18/17 10/19/17 06:59 06:59 06:59 Intake Total 100 1352 Output Total 1400 300 Balance -1300 1052 Weight 104.1 kg 104.1 kg General appearance: PRESENT: no acute distress, obese Head exam: PRESENT: atraumatic, normocephalic Mouth exam: PRESENT: moist Teeth exam: PRESENT: poor dentation Respiratory exam: PRESENT: clear to auscultation jerrica, decreased breath sounds - at lung bases Cardiovascular exam: PRESENT: RRR. ABSENT: diastolic murmur, rubs, systolic murmur Pulses: PRESENT: +1 pedal pulses bilateral Vascular exam: ABSENT: pallor GI/Abdominal exam: PRESENT: normal bowel sounds, soft. ABSENT: distended, guarding, mass, organolmegaly, rebound, tenderness Extremities exam: ABSENT: pedal edema Neurological exam: PRESENT: alert, awake, oriented to person, oriented to place , oriented to time, oriented to situation, CN II-XII grossly intact. ABSENT: motor sensory deficit Psychiatric exam: PRESENT: appropriate affect, normal mood. ABSENT: homicidal ideation, suicidal ideation Skin exam: PRESENT: dry, warm, other - left herel region granulating diabetic foot ulcer Results Impressions: Chest X-Ray 10/15/17 20:31 IMPRESSION: NO ACUTE RADIOGRAPHIC FINDING IN THE CHEST. Qualifiers - * PATIENT BEING DISCHARGED WITH ANY OF THE FOLLOWING DIAGNOSIS: No Plan Discharge Plan: Discharge home today. Followup in the office as instructed upon discharge.
[2017-10-18] MEDS: INSULIN DETEMIR 100 UNIT/ML 3 ML PEN SUBCUT SCH (09:12)
[2017-10-18] MEDS: SACUBITRIL/VALSARTAN 97 MG/103 MG TABLET PO SCH (09:13)
[2017-10-18] MEDS: DIGOXIN 0.125 MG TABLET PO SCH (09:13)
[2017-10-18] MEDS: ASPIRIN 81 MG TABLET, ENT COATED PO SCH (09:14)
[2017-10-18] MEDS: CLOPIDOGREL BISULFATE 75 MG TABLET PO SCH (09:14)
[2017-10-18] MEDS: AMLODIPINE BESYLATE 10 MG TABLET PO SCH (09:15)
[2017-10-18] MEDS: CARVEDILOL 6.25 MG TABLET PO SCH (09:15)
[2017-10-18] MEDS ORDERED: FUROSEMIDE 40 MG TABLET PO SCH (10:00)
[2017-10-18 12:32] VITALS: BP 145/70
== END 2017-10-18 13:20 | disposition home health service (06) ==
LOC: ER 19:18 → EH 23:08 → 4S 10-16 11:00
PROVIDERS: ADMIT Internal Medicine Geriatric Medicine; ATTEND Internal Medicine Geriatric Medicine
DX: I11.0 Hypertensive heart disease with heart failure (principal); I50.42 Chronic combined systolic (congestive) and diastolic (congestive) heart failure; E11.621 Type 2 diabetes mellitus with foot ulcer; E11.51 Type 2 diabetes mellitus with diabetic peripheral angiopathy without gangrene; L97.425 Non-pressure chronic ulcer of left heel and midfoot with muscle involvement without evidence of necrosis; E66.9 Obesity, unspecified; Z68.39 Body mass index [BMI] 39.0-39.9, adult; E78.5 Hyperlipidemia, unspecified; I25.10 Atherosclerotic heart disease of native coronary artery without angina pectoris; G89.4 Chronic pain syndrome; I25.2 Old myocardial infarction; E11.65 Type 2 diabetes mellitus with hyperglycemia; M13.89 Other specified arthritis, multiple sites; Z95.1 Presence of aortocoronary bypass graft; Z79.891 Long term (current) use of opiate analgesic; Z82.49 Family history of ischemic heart disease and other diseases of the circulatory system
CPT/HCPCS: 93005; 99285; 51702; 96374; 36415; 82962 ×3; 85025; 80053; 84484; 83880; 71045; 93010; G0378 ×4; A9270 ×32; J1940; J3490 ×3; J1815

== ENCOUNTER 2017-11-10 08:46 | Inpatient (IN) | payer MEDICARE, MEDICAID ==
[2017-11-10 09:19] LABS: ABSOLUTE EOSINOPHILS # (AUTO) 0.1 10^3/uL (0.0-0.6); ABSOLUTE LYMPHOCYTES (AUTO) 1.2 10^3/uL (0.5-4.7); ABSOLUTE MONOCYTES (AUTO) 0.5 10^3/uL (0.1-1.4); ABSOLUTE NEUT (AUTO) 5.1 10^3/uL (1.7-8.2); BASOPHILS % (AUTO) 0.6 % (0-2); EOSINOPHILS % (AUTO) 0.9 % (0-6); HEMATOCRIT 32.2 % (36.0-47.0); HEMOGLOBIN 10.3 g/dL (12.0-15.5); MEAN CORPUSCULAR HEMOGLOBIN 27.8 pg (27.0-33.4); MEAN CORPUSCULAR VOLUME 87 fl (80-97); MONOCYTES % (AUTO) 7.6 % (3-13); PLATELET COUNT 312 10^3/uL (150-450); RED BLOOD COUNT 3.71 10^6/uL (3.72-5.28); RED CELL DISTRIBUTION WIDTH 16.6 % (11.5-14.0); SEGMENTED NEUTROPHILS % (AUTO) 73.9 % (42-78); TOTAL CELLS COUNTED % (AUTO) 100 %; WHITE BLOOD COUNT 6.9 10^3/uL (4.0-10.5)
--- NOTE | 2017-11-10 09:25 | RADIOLOGY REPORT (SQ) ---
EXAM DESCRIPTION: CHEST SINGLE VIEW COMPLETED DATE/TIME: 11/10/2017 9:15 am REASON FOR STUDY: cp COMPARISON: 10/15/2017, 10/06/2017, 09/28/2017 EXAM PARAMETERS: NUMBER OF VIEWS: One view. TECHNIQUE: Single frontal radiographic view of the chest acquired. RADIATION DOSE: NA LIMITATIONS: None. FINDINGS: LUNGS AND PLEURA: Minimal scarring left lateral lung base. Mild pulmonary vascular conges tion without alveolar or interstitial edema. No pleural effusion. No pneumothorax. MEDIASTINUM AND HILAR STRUCTURES: No masses. Contour normal. HEART AND VASCULAR STRUCTURES: Stable moderate cardiomegaly, old CABG with sternal closure devices BONES: No acute findings. HARDWARE: None in the chest. OTHER: No other significant finding. IMPRESSION: Pulmonary vascular prominence without alveolar or interstitial edema. Stable cardiomega ly, post CABG TECHNICAL DOCUMENTATION: JOB ID: [id number] [employer]- All Rights Reserved Reading location - IP/workstation name: [email or web address]
[2017-11-10] MEDS ORDERED: NITROGLYCERIN 0.4 MG/TAB 25 TAB/BOTTLE SL ONE (09:31)
[2017-11-10 09:40] LABS: ALANINE AMINOTRANSFERASE 13 U/L (9-52); ALKALINE PHOSPHATASE 348 U/L (38-126); ANION GAP 15 (5-19); ASPARTATE AMINO TRANSFERASE 31 U/L (14-36); BILIRUBIN,DIRECT 0.8 mg/dL (0.0-0.4); BILIRUBIN,TOTAL 1.2 mg/dL (0.2-1.3); BLOOD UREA NITROGEN 20 mg/dL (7-20); CALCIUM 9.7 mg/dL (8.4-10.2); CARBON DIOXIDE 23 mmol/L (22-30); CHLORIDE 111 mmol/L (98-107); CREATINE KINASE 35 U/L (30-135); GLUCOSE 225 mg/dL (75-110); POTASSIUM 4.4 mmol/L (3.6-5.0); SODIUM 148.6 mmol/L (137-145); TOTAL PROTEIN 9.3 g/dL (6.3-8.2)
[2017-11-10 09:53] LABS: TROPONIN I < 0.012 ng/mL
[2017-11-10 10:02] LABS: PHOSPHORUS 3.4 mg/dL (2.5-4.5)
--- NOTE | 2017-11-10 10:03 | ER Document Report ---
ED General - General Chief Complaint: Chest Pain Stated Complaint: CHEST PAIN Time Seen by Provider: 11/10/17 09:16 Mode of Arrival: Medic Information source: Patient TRAVEL OUTSIDE OF THE [place] IN LAST 30 DAYS: No - HPI Notes: 62-year-old female with a history of congestive heart failure, hypertension, CAD , hypercholesterolemia, PVD, type 2 diabetes, left foot chronic diabetic ulcer with history of old DC presents to the ED via EMS for complaints of shortness of breath and chest pressure for the last 3 days but has become progressively worse in the last 4 hours. Patient is a former smoker, quit about 8 months ago , smoked about a pack per week for over 40 years. Patient states that she feels a "elephant sitting on my chest" for the last 3 days but again is become worse in the last 4 hours. Patient was given baby aspirin 3-325 and 2 nitros while in transit by EMS to ER. Denies fevers, chills, nausea, vomiting, diarrhea, abdominal pain, hematuria,blurred vision, double vision, loss of vision, speech changes, LH, dizziness, syncope, headaches, wheezing, ST, URI, neck pain, weakness, bowel or bladder dysfunction, saddle anesthesia, numbness or tingling in bilateral upper or lower extremities equally, muscle paralysis, weakness in bilateral upper or lower extremities equally or rash. Denies IV drug use. - Related Data Allergies/Adverse Reactions: pregabalin [From Lyrica] Allergy (Verified 10/16/17 09:21) Swelling of hands and face Past Medical History - General Information source: Patient - Social History Smoking Status: Former Smoker Chew tobacco use (# tins/day): No Frequency of alcohol use: Rare Drug Abuse: None Family History: Reviewed & Not Pertinent, CAD, Hyperlipidemia, Hypertension Patient has suicidal ideation: No Patient has homicidal ideation: No - Past Medical History Cardiac Medical History: Reports: Hx Congestive Heart Failure, Hx Coronary Artery Disease, Hx Heart Attack, Hx Hypercholesterolemia, Hx Hypertension, Hx Peripheral Vascular Disease Denies: Hx Atrial Fibrillation Pulmonary Medical History: Reports: Hx Bronchitis Denies: Hx Asthma, Hx COPD, Hx Pneumonia, Hx Tuberculosis Neurological Medical History: Reports: Hx Cerebrovascular Accident - 2007 Denies: Hx Seizures Endocrine Medical History: Reports: Hx Diabetes Mellitus Type 1, Hx Diabetes Mellitus Type 2 Renal/ Medical History: Denies: Hx End Stage Renal Disease, Hx Peritoneal Dialysis GI Medical History: Reports: Hx Diverticulitis - diverticulosis. Denies: Hx Gastroesophageal Reflux Disease, Hx Hiatal Hernia Musculoskeltal Medical History: Denies Hx Arthritis Skin Medical History: Denies Hx MRSA Psychiatric Medical History: Denies: Hx Bipolar Disorder, Hx Depression Past Surgical History: Reports: Hx Cardiac Surgery - quad bypass, Hx Coronary Artery Bypass Graft - July 31 2011, Hx Tonsillectomy, Hx Vascular Surgery. Denies: Hx Appendectomy, Hx Cardiac Catheterization, Hx Section, Hx Cholecystectomy, Hx Hysterectomy, Hx Mastectomy, Hx Tubal Ligation - Immunizations Immunizations up to date: No Hx Diphtheria, Pertussis, Tetanus Vaccination: Yes Hx Pneumococcal Vaccination: 02/04/11 Review of Systems - Review of Systems Constitutional: See HPI EENT: No symptoms reported Cardiovascular: See HPI Respiratory: See HPI Gastrointestinal: No symptoms reported Genitourinary: No symptoms reported Female Genitourinary: No symptoms reported Musculoskeletal: No symptoms reported Skin: See HPI - left diabetic foot ulcer Hematologic/Lymphatic: No symptoms reported Neurological/Psychological: No symptoms reported Physical Exam - Vital signs Vitals: Resp BP Pulse Ox 13 161/88 H 97 11/10/17 08:53 11/10/17 08:53 11/10/17 08:53 - Notes Notes: PHYSICAL EXAMINATION: GENERAL: Chronically ill, well-nourished and in no acute distress. HEAD: Atraumatic, normocephalic. EYES: Pupils equal round and reactive to light, extraocular movements intact, conjunctiva are normal. ENT: Nares patent, oropharynx clear without exudates. Moist mucous membranes. NECK: Normal range of motion, supple without lymphadenopathy LUNGS: Diminished breath sounds in bilateral upper lobes breath sounds clear to auscultation bilaterally and equal. No wheezes rales or rhonchi. HEART: Regular rate and rhythm without murmurs ABDOMEN: Soft, nontender, nondistended abdomen. No guarding, no rebound. No masses appreciated. Female : deferred Musculoskeletal: Normal range of motion, no pitting or edema. No cyanosis. Pedal edema +3 and left, pedal edema +2 on right, distal pulses +2 bilaterally and equally. left calf tenderness with palpation to calf with swelling. positive sahara's sign on left. . anterior and posterior drawer test negative.Dtr + 2 in BLE. Full motor and sensory function. no ecchymosis or abrasions noted. distal pulses + 2 bilaterally and equally. Bilateral lower extremity without deformity or asymmetry. No evidence of compartment syndrome, lymphadenopathy, gangrene. No palpable cords or evidence of thrombophlebitis. NEUROLOGICAL: Cranial nerves grossly intact. Normal speech, normal gait. Normal sensory, motor exams PSYCH: Normal mood, normal affect. SKIN: Warm, Dry, normal turgor, no rashes or lesions noted besides a left foot diabetic ulcer to the heel Course - Re-evaluation Re-evalutation: 11/10/17 12:31 62-year-old female with a significant past medical history CHF type 2 diabetes, hypertension, cardiac bypass in 2011, former smoker presents to the ED with complaints of shortness of breath chest pain with squeezing and pressure 2 days have become progressively worse this morning and states "an elephant is sitting on my chest". Patient given nitroglycerin 1000, patient did have a reduction in her chest pressure, tightness and squeezing after taking nitroglycerin sublingual. chest x-ray shows pulmonary vascular congestion, BNP is 3, 860, patient has an EF of 35 on previous echocardiograms. 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 Mayer, last stress test on file was in 2011, by Dr. Vaz, hospitalist does not know of any recent stress test. First set of troponin was negative, CBC negative for leukocytosis or anemia, CMP shows direct bilirubin 0.8, which trending has been her baseline. Urinalysis shows positive nitrates, ketones with proteinuria and hematuria. bilateral venous ultrasound did show patient had a positive left popliteal DVT, will start on lovenox. Consulted Dr. Vaz at 1210, admission due to patient's chest pain resolution after taking nitro to the IMCU patient will be placed on medical hospitalist service. Patient agreeable with plan of care and agree with plan of care. - Vital Signs Vital signs: Temp Pulse Resp BP Pulse Ox 98.1 F 16 175/93 H 100 11/10/17 09:08 11/10/17 11:07 11/10/17 11:07 11/10/17 11:07 - Laboratory Result Diagrams: 11/10/17 09:08 11/10/17 09:08 Laboratory results interpreted by me: 11/10/17 11/10/17 11/10/17 09:08 09:08 10:28 RBC 3.71 L Hgb 10.3 L Hct 32.2 L RDW 16.6 H Sodium 148.6 H Chloride 111 H Glucose 225 H Direct Bilirubin 0.8 H Alkaline Phosphatase 348 H NT-Pro-B Natriuret Pep Total Protein 9.3 H Urine Protein 100 H Urine Ketones TRACE H Urine Blood SMALL H Urine Nitrite POSITIVE H Urine Urobilinogen 4.0 H 11/10/17 10:36 RBC Hgb Hct RDW Sodium Chloride Glucose Direct Bilirubin Alkaline Phosphatase NT-Pro-B Natriuret Pep 3860 H Total Protein Urine Protein Urine Ketones Urine Blood Urine Nitrite Urine Urobilinogen Discharge - Discharge Clinical Impression: Unstable angina, Congestive heart failure, Acute on chronic systolic CHF ( congestive heart failure), Pulmonary vascular congestion, Left leg DVT HTN (hypertension) Qualifiers: Hypertension type: essential hypertension 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 2 diabetes mellitus Qualifiers: Non-pressure ulcer stage: unspecified non-pressure ulcer stage Chest pain Qualifiers: Chest pain type: unspecified Qualified Code(s): R07.9 - Chest pain, unspecified Condition: Stable Disposition: ADMITTED INPATIENT Admitting Provider: Hospitalist - Dr. Melody Vaz Unit Admitted: [facility]
[2017-11-10 10:08] LABS: INTERNATIONAL RATION (INR) 1.14; PROTHROMBIN TIME 15.1 SEC (11.4-15.4)
[2017-11-10 10:09] LABS: PARTIAL THROMBOPLASTIN TIME 24.5 SEC (23.5-35.8)
--- NOTE | 2017-11-10 10:36 | EKG REPORT ---
SEVERITY:- ABNORMAL ECG - SINUS RHYTHM MULTIPLE VENTRICULAR PREMATURE COMPLEXES PROBABLE LEFT ATRIAL ABNORMALITY BORDERLINE LEFT AXIS DEVIATION NONSPECIFIC T ABNORMALITIES, LATERAL LEADS BORDERLINE PROLONGED QT INTERVAL : Confirmed by: Yobany Marino MD 10-Nov-2017 10:35:32
[2017-11-10 10:59] LABS: AMORPHOUS SEDIMENT,URINE TRACE /HPF; APPEARANCE,URINE SLIGHTLY-CLOUDY; BILIRUBIN,URINE NEGATIVE (NEGATIVE); COLOR,URINE YELLOW; GLUCOSE, URINE NEGATIVE (NEGATIVE); KETONES,URINE TRACE mg/dL (NEGATIVE); LEUKOCYTE ESTERASE,URINE NEGATIVE (NEGATIVE); NITRITE,URINE POSITIVE (NEGATIVE); PROTEIN,URINE 100 mg/dL (NEGATIVE); URINE SPECIFIC GRAVITY 1.011
[2017-11-10] MEDS ORDERED: IPRATROPIUM/ALBUTEROL 0.5-2.5 MG/3 ML AMPUL NEB PRN (12:35)
[2017-11-10] MEDS ORDERED: DEXTROSE 40% GEL 15 GM TUBE PO PRN ×2 (12:38)
[2017-11-10] MEDS ORDERED: DEXTROSE 50%-WATER 25 GM/50 ML DISP.SYRIN IV PRN ×2 (12:38)
[2017-11-10] MEDS ORDERED: GLUCAGON,HUMAN RECOMB 1 MG INJ IM PRN (12:38)
--- NOTE | 2017-11-10 12:40 | PDOC H&P ---
History of Present Illness Admission Date/PCP: STEPHAN TAFOYA Patient complains of: Chest pain and shortness of the breath History of Present Illness: JAVIER BURGER is a 62 year old female This is a 62-year-old female patient of Dr. Tafoya with the very noncompliance with the medications several hospital admissions due to the conditions with the history of the coronary artery disease status post bypass surgery in 2011 history of the congestive heart failure history of the hypertension's and history of the type 2 diabetes mellitus with morbid obesity and multiple comorbidity including history of former smoker quit 8 months back came to the emergency department with the last 3 days was complaint with chest pressure and shortness of the breath Patients claimed that she feels like something heaviness in the chest and patients received the 1 dose of nitro which pretty much relieved the pain after 5 minutes Emergency department initial workup is all stable Saw the patient's patient is alert awake and oriented denied any chest pain denied any shortness of the breath patient is currently on room air Patient also history of the gallstones and currently follow with the [facility] for that Discussed with her 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 and suggest order the VQ scan and the repeat the cardiac enzyme and admit if is all negative for further evaluations Past Medical History Cardiac Medical History: Reports: Congestive Heart Failure, Coronary Artery Disease, Myocardial Infarction, Hyperlipidema, Hypertension, Peripheral Vascular Disease Denies: Atrial Fibrillation Pulmonary Medical History: Reports: Bronchitis Denies: Asthma, Chronic Obstructive Pulmonary Disease (COPD), Pneumonia, Tuberculosis Neurological Medical History: Denies: Seizures Endocrine Medical History: Reports: Diabetes Mellitus Type 1, Diabetes Mellitus Type 2 Renal/ Medical History: Denies: End Stage Renal Disease GI Medical History: Reports: Diverticulitis - diverticulosis Denies: Gastroesophageal Reflux Disease, Hiatal Hernia Musculoskeltal Medical History: Denies: Arthritis Psychiatric Medical History: Denies: Bipolar Disorder, Depression Hematology: Denies: Anemia, Hemophilia, Sickle Cell Disease Past Surgical History Past Surgical History: Reports: Coronary Artery Bypass Graft - July 31 2011, Tonsillectomy, Vascular Surgery Denies: Amputation, Appendectomy, Cardiac Catheterization, Section, Cholecystectomy, Hysterectomy, Mastectomy, Tubal Ligation Social History Smoking Status: Former Smoker Frequency of Alcohol Use: None Hx Recreational Drug Use: No Drugs: None Hx Prescription Drug Abuse: No Family History Family History: Reviewed & Not Pertinent, CAD, Hyperlipidemia, Hypertension Parental Family History Reviewed: Yes Children Family History Reviewed: Yes Sibling(s) Family History Reviewed.: Yes Medication/Allergy Home Medications: Oxycodone HCl [Oxycodone HCl 10 MG Tablet] 10 mg PO Q6HP PRN 10/16/17 Amlodipine Besylate [Norvasc 10 mg Tablet] 10 mg PO DAILY #30 tablet 10/18/17 Aspirin [Aspirin EC] 81 mg PO DAILY #30 tablet. 10/18/17 Carvedilol [Coreg 6.25 mg Tablet] 6.25 mg PO Q12 #60 tablet 10/18/17 Clopidogrel Bisulfate [Plavix 75 mg Tablet] 75 mg PO DAILY #30 tablet 10/18/17 Digoxin [Lanoxin] 125 mcg PO DAILY #30 tablet 10/18/17 Furosemide [Lasix 40 mg Tablet] 40 mg PO BID #60 tablet 10/18/17 Gabapentin [Neurontin 300 mg Capsule] 300 mg PO Q6 #90 capsule 10/18/17 Hydralazine HCl [Apresoline 50 mg Tablet] 50 mg PO Q8 #90 tablet 10/18/17 Insulin Detemir [Levemir Flextouch] 50 unit SQ Q12 #5 insuln.pen 10/18/17 Insulin Lispro [Humalog Kwikpen U-100] 1 unit SQ ACHS PRN #5 insuln.pen Isosorbide Mononitrate [Ismo 20 mg Tablet] 20 mg PO Q8 #90 tablet 10/18/17 Pravastatin Sodium [Pravachol] 20 mg PO QHS #30 tablet 10/18/17 Sacubitril/Valsartan [Entresto 97 mg/103 mg Tablet] 1 tab PO Q12 #60 tablet Allergies/Adverse Reactions: pregabalin [From Lyrica] Allergy (Verified 10/16/17 09:21) Swelling of hands and face Review of Systems Constitutional: ABSENT: chills, fever(s), headache(s), weight gain, weight loss Eyes: ABSENT: visual disturbances Ears: ABSENT: hearing changes Cardiovascular: PRESENT: chest pain, dyspnea on exertion. ABSENT: edema, orthropnea, palpitations Respiratory: ABSENT: cough, hemoptysis Gastrointestinal: PRESENT: abdominal pain. ABSENT: constipation, diarrhea, hematemesis, hematochezia, nausea, vomiting Genitourinary: ABSENT: dysuria, hematuria Musculoskeletal: ABSENT: joint swelling Integumentary: ABSENT: rash, wounds Neurological: ABSENT: abnormal gait, abnormal speech, confusion, dizziness, focal weakness, syncope Psychiatric: ABSENT: anxiety, depression, homidical ideation, suicidal ideation Endocrine: ABSENT: cold intolerance, heat intolerance, menstrual abnormalities, polydipsia, polyuria Hematologic/Lymphatic: ABSENT: easy bleeding, easy bruising, lymphadenopathy Physical Exam Vital Signs: Temp Pulse Resp BP Pulse Ox 98.1 F 16 175/93 H 100 11/10/17 09:08 11/10/17 11:07 11/10/17 11:07 11/10/17 11:07 Intake & Output 11/09/17 11/10/17 11/11/17 06:59 06:59 06:59 Weight 107.3 kg General appearance: PRESENT: no acute distress, well-developed, well-nourished Head exam: PRESENT: atraumatic, normocephalic Eye exam: PRESENT: conjunctiva pink, EOMI, PERRLA. ABSENT: scleral icterus Ear exam: PRESENT: normal external ear exam Mouth exam: PRESENT: moist, tongue midline Neck exam: PRESENT: full ROM. ABSENT: carotid bruit, JVD, lymphadenopathy, thyromegaly Respiratory exam: PRESENT: clear to auscultation jerrica Cardiovascular exam: PRESENT: RRR. ABSENT: diastolic murmur, rubs, systolic murmur Pulses: PRESENT: normal dorsalis pedis pul, +2 pedal pulses bilateral Vascular exam: PRESENT: normal capillary refill GI/Abdominal exam: PRESENT: normal bowel sounds, soft. ABSENT: distended, guarding, mass, organolmegaly, rebound, tenderness Rectal exam: PRESENT: deferred Extremities exam: PRESENT: pedal edema Neurological exam: PRESENT: alert, awake, oriented to person, oriented to place , oriented to time, oriented to situation, CN II-XII grossly intact. ABSENT: motor sensory deficit Psychiatric exam: PRESENT: appropriate affect, normal mood. ABSENT: homicidal ideation, suicidal ideation Skin exam: PRESENT: dry, intact, warm. ABSENT: cyanosis, rash Results Laboratory Results: 11/10/17 09:08 11/10/17 09:08 11/10/17 11/10/17 11/10/17 09:08 09:08 09:08 WBC 6.9 RBC 3.71 L Hgb 10.3 L Hct 32.2 L MCV 87 MCH 27.8 MCHC 32.0 RDW 16.6 H Plt Count 312 Seg Neutrophils % 73.9 Lymphocytes % 17.0 Monocytes % 7.6 Eosinophils % 0.9 Basophils % 0.6 Absolute Neutrophils 5.1 Absolute Lymphocytes 1.2 Absolute Monocytes 0.5 Absolute Eosinophils 0.1 Absolute Basophils 0.0 Sodium 148.6 H Potassium 4.4 Chloride 111 H Carbon Dioxide 23 Anion Gap 15 BUN 20 Creatinine 0.68 Est GFR ( Amer) > 60 Est GFR (Non-Af Amer) > 60 Glucose 225 H Lactic Acid Calcium 9.7 Phosphorus 3.4 Magnesium 2.0 Total Bilirubin 1.2 AST 31 ALT 13 Alkaline Phosphatase 348 H Total Protein 9.3 H Albumin 4.0 Urine Color Urine Appearance Urine pH Ur Specific Toyah Urine Protein Urine Glucose (UA) Urine Ketones Urine Blood Urine Nitrite Ur Leukocyte Esterase Urine WBC (Auto) Urine RBC (Auto) 11/10/17 11/10/17 10:28 10:36 WBC RBC Hgb Hct MCV MCH MCHC RDW Plt Count Seg Neutrophils % Lymphocytes % Monocytes % Eosinophils % Basophils % Absolute Neutrophils Absolute Lymphocytes Absolute Monocytes Absolute Eosinophils Absolute Basophils Sodium Potassium Chloride Carbon Dioxide Anion Gap BUN Creatinine Est GFR ( Amer) Est GFR (Non-Af Amer) Glucose Lactic Acid 1.4 Calcium Phosphorus Magnesium Total Bilirubin AST ALT Alkaline Phosphatase Total Protein Albumin Urine Color YELLOW Urine Appearance SLIGHTLY-CLOUDY Urine pH 5.0 Ur Specific Toyah 1.011 Urine Protein 100 H Urine Glucose (UA) NEGATIVE Urine Ketones TRACE H Urine Blood SMALL H Urine Nitrite POSITIVE H Ur Leukocyte Esterase NEGATIVE Urine WBC (Auto) 5 Urine RBC (Auto) 3 11/10/17 11/10/17 11/10/17 09:08 09:08 10:36 Creatine Kinase 35 CK-MB (CK-2) 0.40 Troponin I < 0.012 NT-Pro-B Natriuret Pep 3860 H Impressions: Chest X-Ray 11/10/17 09:01 IMPRESSION: Pulmonary vascular prominence without alveolar or interstitial edema. Stable cardiomegaly, post CABG Assessment & Plan - Diagnosis (1) Chest pain Qualifiers: Chest pain type: unspecified Qualified Code(s): R07.9 - Chest pain, unspecified Is this a current diagnosis for this admission?: Yes Plan: Patient has since last 2 days chest pains will order the VQ scan and ultrasound Doppler to rule out any embolisms and DVT Will rule out the acute coronary syndromes Consult the cardiology (2) Acute on chronic systolic CHF (congestive heart failure) Is this a current diagnosis for this admission?: Yes Plan: The patient on IV Lasix with the chest x-ray suggests some pulmonary vascular congestion's patient's recent echocardiogram was done with normal EF the previous echocardiograms of 35 persons EF (3) 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 2 diabetes mellitus Qualifiers: Non-pressure ulcer stage: unspecified non-pressure ulcer stage Is this a current diagnosis for this admission?: Yes (4) Hypertension Qualifiers: Hypertension type: essential hypertension Is this a current diagnosis for this admission?: Yes Plan: continue to current blood pressure medications (5) Pulmonary vascular congestion Is this a current diagnosis for this admission?: Yes Plan: IV Lasix (6) Abdominal pain Qualifiers: Abdominal location: unspecified location Qualified Code(s): R10.9 - Unspecified abdominal pain Is this a current diagnosis for this admission?: Yes Plan: Ultrasound of the abdomen patient already have a history of the gallstones and appointment to see the [facility] next weeks (7) Anemia of chronic disease Is this a current diagnosis for this admission?: Yes Plan: Currently all stable (8) Coronary artery disease Qualifiers: Coronary Disease-Associated Artery/Lesion type: bypass graft Associated angina: with stable angina Is this a current diagnosis for this admission?: Yes Plan: the cardiology (9) Diabetes mellitus type 2 in obese Is this a current diagnosis for this admission?: Yes Plan: ss (10) PVD (peripheral vascular disease) Is this a current diagnosis for this admission?: Yes Plan: stable (11) Chronic pain syndrome Is this a current diagnosis for this admission?: Yes Plan: current medication (12) Noncompliance Is this a current diagnosis for this admission?: Yes - Time Time Spent: 30 to 50 Minutes Medications reviewed and adjusted accordingly: Yes Anticipated discharge: Home Within: Other - Inpatient Certification Medical Necessity: Need Close Monitoring Due to Risk of Patient Decompensation 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
[2017-11-10] MEDS ORDERED: APIXABAN 5 MG TABLET PO SCH (13:30)
--- NOTE | 2017-11-10 14:20 | RADIOLOGY REPORT (SQ) ---
EXAM DESCRIPTION: U/S ABDOMEN LTD W/DOPPLER COMPLETED DATE/TIME: 11/10/2017 1:37 pm REASON FOR STUDY: elevated bilirubin, history of cholelithiasis COMPARISON: 10/06/2017 TECHNIQUE: Dynamic and static grayscale images acquired of the abdomen and recorded on PACS. Danielo belle selected color Doppler and spectral images recorded. LIMITATIONS: Bowel gas. FINDINGS: PANCREAS: Poorly visualized. LIVER: No masses. Enlarged, 19.5 cm length. LIVER VASCULATURE: Normal directional flow of the main portal vein and hepatic veins. GALLBLADDER: Multiple gallstones. Mildly increased gallbladder wall thickness, 3.6 mm. No pericholec ystic fluid. ULTRASOUND-DETECTED HOOD'S SIGN: Negative. INTRAHEPATIC DUCTS AND COMMON DUCT: CBD and intrahepatic ducts normal caliber. No filling defects. INFERIOR VENA CAVA: Normal flow. AORTA: No aneurysm identified. RIGHT KIDNEY: Normal size. Normal echogenicity. No solid or suspicious masses. No hydronephrosis. No calcifications. PERITONEAL AND RIGHT PLEURAL SPACE: No ascites or effusions. OTHER: No other significant findings. IMPRESSION: Multiple gallstones. Mildly increased gallbladder wall thickness, 3.6 mm. No perichole cystic fluid. TECHNICAL DOCUMENTATION: JOB ID: [id number] [id number] 2010 [employer]- All Rights Reserved Reading location - IP/workstation name: [email or web address]
[2017-11-10] MEDS: HYDRALAZINE HCL 50 MG TABLET PO SCH ×2 (16:06→22:30)
[2017-11-10] MEDS: ISOSORBIDE MONONITRATE 20 MG TABLET PO SCH ×2 (16:07→22:30)
[2017-11-10] MEDS: FUROSEMIDE INJ/PF 40 MG/4 ML SDV IV SCH ×2 (16:07→22:30)
--- NOTE | 2017-11-10 16:28 | RADIOLOGY REPORT (SQ) ---
EXAM DESCRIPTION: NM LUNG VENT/PERF SCAN COMPLETED DATE/TIME: 11/10/2017 3:10 pm REASON FOR STUDY: new onset sob with cp. +perc rule COMPARISON: AP chest 11/10/2017 Ventilation-perfusion scan 07/02/2016 RADIONUCLIDE AND DOSE: 5.4 millicuries TC-99m MAA Intravenous 32.6 millicuries TC-99m DTPA Inhaled aerosol TECHNIQUE: Eight views of the lungs acquired post ventilation of DTPA aerosol. Eight matching views of the lungs acquired following injection of MAA. LIMITATIONS: None. FINDINGS: VENTILATION: Symmetric and homogeneous distribution of DTPA aerosol during ventilatory pha se. No significant areas of photopenia. PERFUSION: Perfusion images with normal homogenous activity and no wedge-shaped or segmental defects. No ventilation-perfusion mismatches. OTHER: No other significant finding. IMPRESSION: NORMAL VENTILATION-PERFUSION LUNG SCAN. NEGATIVE FOR PULMONARY EMBOLI. TECHNICAL DOCUMENTATION: JOB ID: [id number] [employer]- All Rights Reserved Reading location - IP/workstation name: [email or web address]
--- NOTE | 2017-11-10 16:35 | RADIOLOGY REPORT (SQ) ---
EXAM DESCRIPTION: VENOUS BILATERAL LOWER COMPLETED DATE/TIME: 11/10/2017 3:18 pm REASON FOR STUDY: L>R leg swelling with sob. +DM and DM ulcer on L COMPARISON: Venous Doppler 03/01/2016 TECHNIQUE: Dynamic and static carvalho scale and color images acquired of both lower extremity venous sy stems. Selected spectral images acquired with additional compression and augmentation maneuvers. Imag es stored on PACS. LIMITATIONS: Difficult exam due to body habitus and patient cooperation FINDINGS: RIGHT LEG COMMON FEMORAL: Normal phasicity, compression and augmentation. No visualized echogenic material on g ray scale. No defects on color images. SUPERFICIAL FEMORAL VEIN: Occluded by hypoechoic probably acute clot. POPLITEAL: Occluded by hypoechoic probably acute clot. CALF VESSELS: Flow identified in the posterior tibial veins. Peroneal veins not visualized. GSV AND SSV: Normal compression. No visualized echogenic material on carvalho scale. No defects on color images. ANY DEEP VENOUS INSUFFICIENCY: Not evaluated. ANY EVIDENCE OF POPLITEAL CYST: No. OTHER: Edema in the subcutaneous tissues of the calf LEFT LEG COMMON FEMORAL AND FEMORAL: Normal phasicity, compression and augmentation. No visualized echogenic m aterial on carvalho scale. No defects on color images. POPLITEAL: Occluded by hypoechoic acute clot. CALF VESSELS: Normal compression and augmentation. No visualized echogenic material on carvalho scale. No defects on color images. GSV : Normal compression. No visualized echogenic material on carvalho scale. No defects on color images. SSV: Occluded by hypoechoic acute clot ANY DEEP VENOUS INSUFFICIENCY: Not evaluated. ANY EVIDENCE POPLITEAL CYST: No. OTHER: Edema in the subcutaneous tissues of the calf IMPRESSION: Acute DVT in the right superficial femoral vein and bilateral popliteal veins. COMMENT: Pertinent findings on the imaging study reported as a CRITICAL RESULT to SWITCH COUPLER-Christopher ROLLE at16:30 on 11/10/2017. Category of Critical Result: Acute deep venous thrombosis TECHNICAL DOCUMENTATION: JOB ID: [id number] [employer]- All Rights Reserved Reading location - IP/workstation name: [email or web address]
[2017-11-10] MEDS: GABAPENTIN 300 MG CAPSULE PO SCH ×2 (17:12→23:07)
[2017-11-10] MEDS: DOCUSATE SODIUM 100 MG CAPSULE PO SCH (17:12)
[2017-11-10 18:59] LABS: CREATINE KINASE MB 0.45 ng/mL (<4.55)
[2017-11-10 19:04] LABS: TROPONIN I < 0.012 ng/mL
[2017-11-10 21:36] LABS: CREATINE KINASE MB 0.39 ng/mL (<4.55)
[2017-11-10 21:47] LABS: TROPONIN I < 0.012 ng/mL
[2017-11-10] MEDS: INSULIN LISPRO 100 UNIT/ML 3 ML VIAL SUBCUT PRN (22:29)
[2017-11-10] MEDS: INSULIN DETEMIR 100 UNIT/ML 3 ML PEN SUBCUT SCH (22:29)
[2017-11-10] MEDS: SACUBITRIL/VALSARTAN 97 MG/103 MG TABLET PO SCH (22:30)
[2017-11-10] MEDS: ATORVASTATIN CALCIUM 10 MG TABLET PO SCH (22:30)
[2017-11-10] MEDS: CARVEDILOL 6.25 MG TABLET PO SCH (22:30)
[2017-11-10] MEDS: ENOXAPARIN SODIUM INJ 120 MG/0.8 ML DISP.SYRIN SUBCUT SCH (22:30)
[2017-11-10] MEDS: ACETAMINOPHEN 325 MG TABLET PO PRN (23:34)
[2017-11-11 03:21] LABS: ABSOLUTE BASOPHILS # (AUTO) 0.1 10^3/uL (0.0-0.2); ABSOLUTE EOSINOPHILS # (AUTO) 0.1 10^3/uL (0.0-0.6); ABSOLUTE LYMPHOCYTES (AUTO) 1.4 10^3/uL (0.5-4.7); ABSOLUTE MONOCYTES (AUTO) 0.7 10^3/uL (0.1-1.4); ABSOLUTE NEUT (AUTO) 5.2 10^3/uL (1.7-8.2); BASOPHILS % (AUTO) 1.2 % (0-2); EOSINOPHILS % (AUTO) 1.6 % (0-6); HEMATOCRIT 27.4 % (36.0-47.0); HEMOGLOBIN 8.8 g/dL (12.0-15.5); LYMPHOCYTES % (AUTO) 18.4 % (13-45); MEAN CORPUSCULAR HEMOGLOBIN 27.6 pg (27.0-33.4); MEAN CORPUSCULAR HGB CONC 32.3 g/dL (32.0-36.0); MEAN CORPUSCULAR VOLUME 85 fl (80-97); MONOCYTES % (AUTO) 9.2 % (3-13); PLATELET COUNT 258 10^3/uL (150-450); RED CELL DISTRIBUTION WIDTH 16.2 % (11.5-14.0); SEGMENTED NEUTROPHILS % (AUTO) 69.6 % (42-78); TOTAL CELLS COUNTED % (AUTO) 100 %; WHITE BLOOD COUNT 7.5 10^3/uL (4.0-10.5)
[2017-11-11 03:34] LABS: ANION GAP 10 (5-19); BLOOD UREA NITROGEN 15 mg/dL (7-20); CALCIUM 9.3 mg/dL (8.4-10.2); CARBON DIOXIDE 28 mmol/L (22-30); CHLORIDE 109 mmol/L (98-107); GLUCOSE 157 mg/dL (75-110); POTASSIUM 4.2 mmol/L (3.6-5.0); SODIUM 147.2 mmol/L (137-145)
[2017-11-11 03:46] LABS: CREATINE KINASE MB 0.22 ng/mL (<4.55)
[2017-11-11 04:13] LABS: TROPONIN I < 0.012 ng/mL
[2017-11-11] MEDS: ISOSORBIDE MONONITRATE 20 MG TABLET PO SCH ×3 (05:34→22:21)
[2017-11-11] MEDS: FUROSEMIDE INJ/PF 40 MG/4 ML SDV IV SCH ×3 (05:34→22:21)
[2017-11-11] MEDS: GABAPENTIN 300 MG CAPSULE PO SCH ×4 (05:35→23:03)
[2017-11-11] MEDS: HYDRALAZINE HCL 50 MG TABLET PO SCH ×3 (05:35→22:21)
[2017-11-11] MEDS: ACETAMINOPHEN 325 MG TABLET PO PRN (05:35)
[2017-11-11] MEDS: ENOXAPARIN SODIUM INJ 120 MG/0.8 ML DISP.SYRIN SUBCUT SCH ×2 (09:55→22:21)
[2017-11-11] MEDS: SACUBITRIL/VALSARTAN 97 MG/103 MG TABLET PO SCH ×2 (09:55→22:21)
[2017-11-11] MEDS: INSULIN DETEMIR 100 UNIT/ML 3 ML PEN SUBCUT SCH ×2 (09:55→21:56)
[2017-11-11] MEDS: CLOPIDOGREL BISULFATE 75 MG TABLET PO SCH (09:56)
[2017-11-11] MEDS: DOCUSATE SODIUM 100 MG CAPSULE PO SCH ×2 (09:56→17:34)
[2017-11-11] MEDS: CARVEDILOL 6.25 MG TABLET PO SCH ×2 (09:56→22:21)
[2017-11-11] MEDS: ASPIRIN 81 MG TABLET, ENT COATED PO SCH (09:56)
[2017-11-11] MEDS: AMLODIPINE BESYLATE 10 MG TABLET PO SCH (09:56)
[2017-11-11] MEDS: CEFTRIAXONE SODIUM 1,000 MG in DEXTROSE 5%-WATER 50 ML IV SCH (09:57)
[2017-11-11] MEDS ORDERED: ENOXAPARIN SODIUM INJ 40 MG/0.4 ML DISP.SYRIN SUBCUT SCH (10:00)
[2017-11-11] MEDS ORDERED: CEFTRIAXONE 1 GM/D5W RTU 1 GM/50 ML RTUPB IV SCH (10:00)
[2017-11-11] MEDS: DIGOXIN 0.125 MG TABLET PO SCH (10:00)
--- NOTE | 2017-11-11 10:17 | PDOC PROGRESS REPORT ---
Subjective Progress Note for:: 11/11/17 Subjective:: Patient is currently doing fair Chest VQ scan was negative Patient ultrasound was positive for acute DVT Since currently denied any chest pain denied any shortness of the breath Patient seen by the cardiology Reason For Visit: CHEST PAIN,CHF Physical Exam Vital Signs: Temp Pulse Resp BP Pulse Ox 98.6 F 68 16 119/62 99 11/11/17 07:59 11/11/17 09:12 11/11/17 09:12 11/11/17 07:59 11/11/17 09:12 Intake & Output 11/10/17 11/11/17 11/12/17 06:59 06:59 06:59 Intake Total 1228 Output Total 2925 Balance -1697 Weight 105 kg General appearance: PRESENT: no acute distress, well-developed, well-nourished Head exam: PRESENT: atraumatic, normocephalic Eye exam: PRESENT: conjunctiva pink, EOMI, PERRLA. ABSENT: scleral icterus Ear exam: PRESENT: normal external ear exam Mouth exam: PRESENT: moist, tongue midline Neck exam: PRESENT: full ROM. ABSENT: carotid bruit, JVD, lymphadenopathy, thyromegaly Respiratory exam: PRESENT: clear to auscultation jerrica Cardiovascular exam: PRESENT: RRR. ABSENT: diastolic murmur, rubs, systolic murmur Pulses: PRESENT: normal dorsalis pedis pul, +2 pedal pulses bilateral Vascular exam: PRESENT: normal capillary refill GI/Abdominal exam: PRESENT: normal bowel sounds, soft. ABSENT: distended, guarding, mass, organolmegaly, rebound, tenderness Rectal exam: PRESENT: deferred Extremities exam: ABSENT: pedal edema Neurological exam: PRESENT: alert, awake, oriented to person, oriented to place , oriented to time, oriented to situation, CN II-XII grossly intact. ABSENT: motor sensory deficit Psychiatric exam: PRESENT: appropriate affect, normal mood. ABSENT: homicidal ideation, suicidal ideation Skin exam: PRESENT: dry, intact, warm. ABSENT: cyanosis, rash Results Laboratory Results: 11/11/17 02:59 11/11/17 02:59 11/11/17 11/11/17 02:59 02:59 WBC 7.5 RBC 3.20 L Hgb 8.8 L Hct 27.4 L MCV 85 MCH 27.6 MCHC 32.3 RDW 16.2 H Plt Count 258 Seg Neutrophils % 69.6 Lymphocytes % 18.4 Monocytes % 9.2 Eosinophils % 1.6 Basophils % 1.2 Absolute Neutrophils 5.2 Absolute Lymphocytes 1.4 Absolute Monocytes 0.7 Absolute Eosinophils 0.1 Absolute Basophils 0.1 Sodium 147.2 H Potassium 4.2 Chloride 109 H Carbon Dioxide 28 Anion Gap 10 BUN 15 Creatinine 0.58 Est GFR ( Amer) > 60 Est GFR (Non-Af Amer) > 60 Glucose 157 H Calcium 9.3 Magnesium 1.6 11/10/17 11/10/17 11/10/17 18:15 18:15 21:00 Creatine Kinase 33 31 CK-MB (CK-2) 0.45 Troponin I < 0.012 NT-Pro-B Natriuret Pep 11/10/17 11/11/17 11/11/17 21:00 02:59 02:59 Creatine Kinase 28 L CK-MB (CK-2) 0.39 0.22 Troponin I < 0.012 < 0.012 NT-Pro-B Natriuret Pep 11/11/17 02:59 Creatine Kinase CK-MB (CK-2) Troponin I NT-Pro-B Natriuret Pep 7200 H Impressions: Chest X-Ray 11/10/17 09:01 IMPRESSION: Pulmonary vascular prominence without alveolar or interstitial edema. Stable cardiomegaly, post CABG Venous Doppler Study 11/10/17 09:32 IMPRESSION: Acute DVT in the right superficial femoral vein and bilateral popliteal veins. Lung Scan-VQ NM 11/10/17 12:03 IMPRESSION: NORMAL VENTILATION-PERFUSION LUNG SCAN. NEGATIVE FOR PULMONARY EMBOLI. Abdomen Ultrasound 11/10/17 12:25 IMPRESSION: Multiple gallstones. Mildly increased gallbladder wall thickness, 3.6 mm. No pericholecystic fluid. Assessment & Plan - Diagnosis (1) Chest pain Qualifiers: Chest pain type: unspecified Qualified Code(s): R07.9 - Chest pain, unspecified Is this a current diagnosis for this admission?: Yes Plan: Patient is currently stable (2) Acute on chronic systolic CHF (congestive heart failure) Is this a current diagnosis for this admission?: Yes Plan: The patient on IV Lasix with the chest x-ray suggests some pulmonary vascular congestion's patient's recent echocardiogram was done with normal EF the previous echocardiograms of 35 persons EF (3) 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 2 diabetes mellitus Qualifiers: Non-pressure ulcer stage: unspecified non-pressure ulcer stage Is this a current diagnosis for this admission?: Yes (4) Hypertension Qualifiers: Hypertension type: essential hypertension Is this a current diagnosis for this admission?: Yes Plan: continue to current blood pressure medications (5) Pulmonary vascular congestion Is this a current diagnosis for this admission?: Yes Plan: IV Lasix (6) Abdominal pain Qualifiers: Abdominal location: unspecified location Qualified Code(s): R10.9 - Unspecified abdominal pain Is this a current diagnosis for this admission?: Yes Plan: Ultrasounds currently stable with the gallstone no acute cholecystitis (7) Anemia of chronic disease Is this a current diagnosis for this admission?: Yes Plan: With the guaiac stool (8) Coronary artery disease Qualifiers: Coronary Disease-Associated Artery/Lesion type: bypass graft Associated angina: with stable angina Is this a current diagnosis for this admission?: Yes Plan: the cardiology (9) Diabetes mellitus type 2 in obese Is this a current diagnosis for this admission?: Yes Plan: ss (10) PVD (peripheral vascular disease) Is this a current diagnosis for this admission?: Yes Plan: stable (11) Chronic pain syndrome Is this a current diagnosis for this admission?: Yes Plan: current medication (12) Noncompliance Is this a current diagnosis for this admission?: Yes (13) Left leg DVT Qualifiers: Affected thrombotic vein of extremity: femoral Is this a current diagnosis for this admission?: Yes Plan: Continues to Lovenox consider switch to the Eliquis and the discharge - Time Time Spent with patient: 15-24 minutes Medications reviewed and adjusted accordingly: Yes Anticipated discharge: Other Within: Other - Inpatient Certification Medical Necessity: Need Close Monitoring Due to Risk of Patient Decompensation 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
[2017-11-11] MEDS ORDERED: IPRATROPIUM/ALBUTEROL 0.5-2.5 MG/3 ML AMPUL NEB SCH (19:45)
[2017-11-11] MEDS: OXYCODONE HCL IR 5 MG TABLET PO PRN (19:54)
--- NOTE | 2017-11-11 21:06 | PROGRESS NOTE E ---
Progress Note NAME: JAVIER BURGER : 1955 AGE: 62Y DATE: 11/11/2017 ROOM: 324 SUBJECTIVE: The patient claims her shortness of breath is much improved but she still is short of breath. Her chest pressure is also improved and there is some reproduction of the chest pressure on pressing on her lower chest wall. She denies palpitations. There is no PND. She does have some orthopnea. There is trace to mild pedal edema. There are no TIA or CVA symptoms. There is no ventricular arrhythmia seen on the monitor. There is no cough, sputum production or wheezing. OBJECTIVE: GENERAL: On examination, the patient is moderately to severely obese. She is well groomed, in no acute distress. VITAL SIGNS: She is afebrile with a temperature of 98.6 degrees Fahrenheit, pulse is 64 beats per minute, blood pressure 119/62, respirations are 14 per minute, O2 saturations are 100% on 2 L nasal cannula. HEENT: Head is atraumatic, normocephalic. Eyes: Pupils are equal, round, regular, reactive to light and accommodation. Extraocular movements are normal. There is no conjunctival pallor. There is no scleral icterus. ENT is negative. NECK: Supple. There is no JVD. Carotids are equal. There is no bruit. There is no lymphadenopathy. There is no goiter. Trachea central. LUNGS: Show diminished air entry, prolonged expiration without any rho, rales or wheezing. On percussion, there seems to be some hyperresonance. HEART: S1 and S2 are heard. There is no S3 gallop. There is no S4 gallop. There is a systolic murmur in the left sternal border on the apex. There is no rub. ABDOMEN: Soft, nontender. There is no hepatosplenomegaly. Bowel sounds are well heard. There are no tender areas or masses. EXTREMITIES: Femorals are diminished. Leg pulses are difficult to palpate. There is a dressing on both ulcers of both feet which are nonhealing. There is trace pedal edema. There is no DVT or cellulitis. There is no calf tenderness. There is no cyanosis or clubbing. CENTRAL NERVOUS SYSTEM: The patient is conscious, awake, alert, oriented x3 with no focal deficit. PSYCHIATRIC: The patient's judgment and insight are intact. Her affect is normal. INTAKE AND OUTPUT: The patient's 24-hour intake is 1228 mL. Output is 2925 mL. LABORATORY DATA: The patient's sodium is 147.2, potassium 4.2, chloride 100, CO2 is 28; The patient's BUN is 15, creatinine 0.58, GFR is greater than 60; her glucose is 157; her calcium is 9.3; her magnesium is 1.6. Her troponin I is less than 0.012 which is within normal limits and her CPK-MB is negative. Her NT-proBNP is 7200. Her hemoglobin is 8.8; her hematocrit is 27.4; her white count is 7500; platelet count is 258,000. Her stool occult blood is negative. IMPRESSION: 1. CHEST PAIN SOUNDS NON-CARDIAC BUT THE PATIENT DOES HAVE A HISTORY OF CORONARY ARTERY DISEASE, OLD DE, AND HISTORY OF CORONARY ARTERY BYPASS GRAFT SURGERY. Hence, would recommend that the patient have IV Lexiscan Cardiolite stress test later. 2. MOST LIKELY ACUTE ON CHRONIC DIASTOLIC HEART FAILURE. NOTE: IN THE PAST, THE PATIENT'S LV EJECTION FRACTION WAS 35%. NOW THE PATIENT'S LV EJECTION FRACTION IS NORMAL. THE PATIENT DOES HAVE LV DIASTOLIC DYSFUNCTION. 3. HYPERTENSION. 4. CORONARY ARTERY DISEASE, HISTORY OF DE, AND HISTORY OF CORONARY ARTERY BYPASS GRAFT SURGERY, ATYPICAL CHEST PRESSURE. MENTIONED EARLIER, DE IS NEGATIVE SO FAR. Would recommend that the patient have an IV Lexiscan Cardiolite stress test later. 5. NONCOMPLIANCE. 6. PERIPHERAL ARTERY DISEASE. 7. NONHEALING ULCER OF THE LEFT HEEL. 8. ? COPD. Would recommend getting a bedside PFT since the patient used to be a smoker. 9. ALTHOUGH THE PATIENT DENIES ANY SYMPTOMS SUGGESTIVE OF SLEEP APNEA, THE PATIENT IS NOT A VERY GOOD OR RELIABLE HISTORIAN. Hence, we will check the patient's O2 sat at night and have it recorded to see if the patient has hypoxic episodes due to sleep apnea at night. Later, if this is positive, we will get outpatient sleep study done. Medications have been reviewed. New orders placed. RECOMMENDATIONS: Would recommend continuing present treatment. TIME SPENT: Forty minutes spent on this patient with more than 50% of the time spent on direct patient care. Note: Medical decision making is of high complexity since some of the etiology of some of the patient's symptomatology cannot be accurately determined. We will follow with you. Note: The patient, in the past, had renal insufficiency but now the patient's renal function is normal. Also she has pxpt-[id number] pulmonary hypertension by recent echo in 10/2017 with a normal ejection fraction and LV diastolic dysfunction. No major stenotic or regurgitant lesions. We will follow with you. Discussed with the attending physician covering the patient's primary care physician. DICTATING PHYSICIAN: RICHIE LARIOS M.D. [id number] Pierce#: [id number] ID: [id number] JOB#: [id number] ACCT: [id number] cc: >
[2017-11-11] MEDS: ATORVASTATIN CALCIUM 10 MG TABLET PO SCH (22:21)
[2017-11-12] MEDS: GABAPENTIN 300 MG CAPSULE PO SCH ×3 (05:17→17:32)
[2017-11-12] MEDS: FUROSEMIDE INJ/PF 40 MG/4 ML SDV IV SCH ×3 (05:17→21:57)
[2017-11-12] MEDS: HYDRALAZINE HCL 50 MG TABLET PO SCH ×3 (05:17→21:56)
[2017-11-12] MEDS: ISOSORBIDE MONONITRATE 20 MG TABLET PO SCH ×3 (05:17→21:56)
[2017-11-12 06:22] LABS: ABSOLUTE EOSINOPHILS # (AUTO) 0.2 10^3/uL (0.0-0.6); ABSOLUTE LYMPHOCYTES (AUTO) 2.1 10^3/uL (0.5-4.7); ABSOLUTE MONOCYTES (AUTO) 0.8 10^3/uL (0.1-1.4); ABSOLUTE NEUT (AUTO) 3.7 10^3/uL (1.7-8.2); BASOPHILS % (AUTO) 0.6 % (0-2); EOSINOPHILS % (AUTO) 3.2 % (0-6); HEMATOCRIT 28.2 % (36.0-47.0); HEMOGLOBIN 9.1 g/dL (12.0-15.5); MEAN CORPUSCULAR HEMOGLOBIN 27.7 pg (27.0-33.4); MEAN CORPUSCULAR HGB CONC 32.2 g/dL (32.0-36.0); MEAN CORPUSCULAR VOLUME 86 fl (80-97); MONOCYTES % (AUTO) 11.5 % (3-13); PLATELET COUNT 268 10^3/uL (150-450); RED BLOOD COUNT 3.28 10^6/uL (3.72-5.28); RED CELL DISTRIBUTION WIDTH 16.9 % (11.5-14.0); SEGMENTED NEUTROPHILS % (AUTO) 54.7 % (42-78); TOTAL CELLS COUNTED % (AUTO) 100 %; WHITE BLOOD COUNT 6.9 10^3/uL (4.0-10.5)
[2017-11-12 06:43] LABS: ANION GAP 12 (5-19); BLOOD UREA NITROGEN 17 mg/dL (7-20); CALCIUM 9.1 mg/dL (8.4-10.2); CARBON DIOXIDE 30 mmol/L (22-30); CHLORIDE 104 mmol/L (98-107); GLUCOSE 66 mg/dL (75-110); POTASSIUM 4.1 mmol/L (3.6-5.0)
[2017-11-12] MEDS: ENOXAPARIN SODIUM INJ 120 MG/0.8 ML DISP.SYRIN SUBCUT SCH ×2 (09:28→21:56)
[2017-11-12] MEDS: AMLODIPINE BESYLATE 10 MG TABLET PO SCH (09:28)
[2017-11-12] MEDS: CARVEDILOL 6.25 MG TABLET PO SCH ×2 (09:28→21:56)
[2017-11-12] MEDS: SACUBITRIL/VALSARTAN 97 MG/103 MG TABLET PO SCH ×2 (09:29→21:57)
[2017-11-12] MEDS: CEFTRIAXONE SODIUM 1,000 MG in DEXTROSE 5%-WATER 50 ML IV SCH (09:29)
[2017-11-12] MEDS: CLOPIDOGREL BISULFATE 75 MG TABLET PO SCH (09:29)
[2017-11-12] MEDS: ASPIRIN 81 MG TABLET, ENT COATED PO SCH (09:29)
[2017-11-12] MEDS: INSULIN DETEMIR 100 UNIT/ML 3 ML PEN SUBCUT SCH ×2 (09:30→23:17)
[2017-11-12] MEDS: DOCUSATE SODIUM 100 MG CAPSULE PO SCH ×2 (09:30→17:33)
[2017-11-12] MEDS: DIGOXIN 0.125 MG TABLET PO SCH (09:40)
[2017-11-12] MEDS: OXYCODONE HCL IR 5 MG TABLET PO PRN ×2 (14:05→21:56)
--- NOTE | 2017-11-12 17:59 | PDOC PROGRESS REPORT ---
Subjective Progress Note for:: 11/12/17 Subjective:: No chest pain or difficulty with breathing. No nausea, vomiting or abdominal pain. No fever or chills. Reason For Visit: CHEST PAIN, CHF Physical Exam Vital Signs: Temp Pulse Resp BP Pulse Ox 97.5 F 65 20 121/60 97 11/12/17 16:36 11/12/17 16:36 11/12/17 16:36 11/12/17 16:36 11/12/17 16:36 Pulse Oximeter Nocturnal Start: 11/11/17 19: 36 Freq: CONTINUOUS Status: Complete Document 11/12/17 00:20 LDA (Rec: 11/12/17 00:22 [email or web address] [email or web address]) Nocturnal Pulse Oximetry Equipment Usage Equipment in Use Oxygen Delivery Method (includes room Nasal Cannula air) O2 Sat by Pulse Oximetry (92-100) 100 Continuous SpO2 Machine # [id number] Intake & Output 11/11/17 11/12/17 11/13/17 06:59 06:59 06:59 Intake Total 1228 1519 1337 Output Total 1723 0155 1850 Balance -1697 -1806 -513 Weight 105 kg 108.1 kg General appearance: PRESENT: no acute distress, morbidly obese Head exam: PRESENT: atraumatic, normocephalic Eye exam: PRESENT: conjunctiva pink, EOMI, PERRLA. ABSENT: scleral icterus Mouth exam: PRESENT: moist Teeth exam: PRESENT: poor dentation Neck exam: PRESENT: full ROM. ABSENT: carotid bruit, JVD, lymphadenopathy, thyromegaly Respiratory exam: PRESENT: clear to auscultation jerrica, decreased breath sounds - at lung bases Cardiovascular exam: PRESENT: RRR. ABSENT: diastolic murmur, rubs, systolic murmur Vascular exam: PRESENT: normal capillary refill. ABSENT: pallor GI/Abdominal exam: PRESENT: normal bowel sounds, soft. ABSENT: distended, guarding, mass, organolmegaly, rebound, tenderness Gentrourinary exam: PRESENT: indwelling catheter Extremities exam: PRESENT: pedal edema - comparatively improved since admission Musculoskeletal exam: PRESENT: deformity - left foot hind region chronic wound Neurological exam: PRESENT: alert, awake, oriented to person, oriented to place , oriented to time, oriented to situation, CN II-XII grossly intact. ABSENT: motor sensory deficit Psychiatric exam: PRESENT: appropriate affect, normal mood. ABSENT: homicidal ideation, suicidal ideation Skin exam: PRESENT: dry, warm, other - chronic diabetic and vascular ulcer on left foot Results Laboratory Results: 11/12/17 05:44 11/12/17 05:44 11/12/17 11/12/17 05:44 05:44 WBC 6.9 RBC 3.28 L Hgb 9.1 L Hct 28.2 L MCV 86 MCH 27.7 MCHC 32.2 RDW 16.9 H Plt Count 268 Seg Neutrophils % 54.7 Lymphocytes % 30.0 Monocytes % 11.5 Eosinophils % 3.2 Basophils % 0.6 Absolute Neutrophils 3.7 Absolute Lymphocytes 2.1 Absolute Monocytes 0.8 Absolute Eosinophils 0.2 Absolute Basophils 0.0 Sodium 146.0 H Potassium 4.1 Chloride 104 Carbon Dioxide 30 Anion Gap 12 BUN 17 Creatinine 0.77 Est GFR ( Amer) > 60 Est GFR (Non-Af Amer) > 60 Glucose 66 L Calcium 9.1 Magnesium 1.5 L 11/10/17 11/10/17 11/10/17 18:15 18:15 21:00 Creatine Kinase 33 31 CK-MB (CK-2) 0.45 Troponin I < 0.012 NT-Pro-B Natriuret Pep 11/10/17 11/11/17 11/11/17 21:00 02:59 02:59 Creatine Kinase 28 L CK-MB (CK-2) 0.39 0.22 Troponin I < 0.012 < 0.012 NT-Pro-B Natriuret Pep 11/11/17 11/12/17 02:59 05:44 Creatine Kinase CK-MB (CK-2) Troponin I NT-Pro-B Natriuret Pep 7200 H 3460 H Impressions: Chest X-Ray 11/10/17 09:01 IMPRESSION: Pulmonary vascular prominence without alveolar or interstitial edema. Stable cardiomegaly, post CABG Venous Doppler Study 11/10/17 09:32 IMPRESSION: Acute DVT in the right superficial femoral vein and bilateral popliteal veins. Lung Scan-VQ NM 11/10/17 12:03 IMPRESSION: NORMAL VENTILATION-PERFUSION LUNG SCAN. NEGATIVE FOR PULMONARY EMBOLI. Abdomen Ultrasound 11/10/17 12:25 IMPRESSION: Multiple gallstones. Mildly increased gallbladder wall thickness, 3.6 mm. No pericholecystic fluid. Assessment & Plan - Diagnosis (1) Left leg DVT Qualifiers: Affected thrombotic vein of extremity: femoral Is this a current diagnosis for this admission?: Yes Plan: See attending physician orders. (2) Acute on chronic combined systolic and diastolic CHF, NYHA class 3 Is this a current diagnosis for this admission?: Yes Plan: See attending physician orders. (3) UTI (urinary tract infection) Qualifiers: Urinary tract infection type: site unspecified Hematuria presence: without hematuria Qualified Code(s): N39.0 - Urinary tract infection, site not specified Is this a current diagnosis for this admission?: Yes Plan: See attending physician orders. 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 2 diabetes mellitus Qualifiers: Diabetic foot ulcer location: heel Non-pressure ulcer stage: unspecified non-pressure ulcer stage Qualified Code(s): E11.621 - Type 2 diabetes mellitus with foot ulcer; L97.429 - Non-pressure chronic ulcer of left heel and midfoot with unspecified severity; L97.429 - Non-pressure chronic ulcer of left heel and midfoot with unspecified severity; L97.429 - Non-pressure chronic ulcer of left heel and midfoot with unspecified severity; L97.429 - Non- pressure chronic ulcer of left heel and midfoot with unspecified severity Is this a current diagnosis for this admission?: Yes Plan: See attending physician orders. (5) Diabetes mellitus type 2 in obese Is this a current diagnosis for this admission?: Yes Plan: See attending physician orders. (6) HTN (hypertension) Qualifiers: Is this a current diagnosis for this admission?: Yes Plan: See attending physician orders. (7) HLD (hyperlipidemia) Qualifiers: Hyperlipidemia type: pure hypercholesterolemia Qualified Code(s): E78.00 - Pure hypercholesterolemia, unspecified Is this a current diagnosis for this admission?: Yes Plan: See attending physician orders. (8) S/P CABG (coronary artery bypass graft) Is this a current diagnosis for this admission?: Yes Plan: See attending physician orders. (9) Chronic use of opiate for therapeutic purpose Is this a current diagnosis for this admission?: Yes Plan: See attending physician orders. - Time Time Spent with patient: 25-34 minutes Medications reviewed and adjusted accordingly: Yes Anticipated discharge: Home with Homehealth Within: Other - Inpatient Certification Based on my medical assessment, after consideration of the patient's comorbidities, presenting symptoms, or acuity I expect that the services needed warrant INPATIENT care.: Yes I certify that my determination is in accordance with my understanding of Medicare's requirements for reasonable and necessary INPATIENT services [42 CFR 412.3e].: Yes Medical Necessity: Need Close Monitoring Due to Risk of Patient Decompensation, Need For Continuous Telemetry Monitoring, Risk of Complication if Not Cared For in Hospital Post Hospital Care: D/C Process Equipment Operator Documentation - Plan Summary Plan Summary: See attending physician orders.
[2017-11-12] MEDS: ATORVASTATIN CALCIUM 10 MG TABLET PO SCH (21:56)
--- NOTE | 2017-11-13 00:20 | PROGRESS NOTE E ---
Progress Note NAME: JAVIER BURGER : 1955 AGE: 62Y DATE: 11/12/2017 ROOM: 324 SUBJECTIVE: The patient states shortness of breath has improved, but still has some shortness of breath and PND and orthopnea. The leg edema is much improved. There is no chest pain or discomfort. There are no palpitations or arrhythmias seen on the monitor. OBJECTIVE: GENERAL: The patient is morbidly obese, but well groomed, in no acute distress. VITAL SIGNS: She is afebrile with a temperature of 97.6 degrees Fahrenheit. Pulse is 71 beats per minute, blood pressure 130/62. Respirations 18 per minute. O2 sats 99% on 2 liters nasal cannula. HEENT: Head is atraumatic/normocephalic. Eyes: Pupils are equal, round, regular, reactive to light and accommodation. Extraocular movements are normal. There is no conjunctival pallor. There is no scleral icterus. ENT is negative. NECK: Supple. There is no JVD. Carotids are equal. There is no bruit. There is no lymphadenopathy. There is no goiter. Trachea is central. LUNGS: Diminished air entry. Prolonged expiration without any rhonchi, rales, or wheezing. On percussion, there seems to be some hyperresonance. HEART: S1, S2 heard. There is no S3 gallop. There is no S4 gallop. There is a systolic murmur at the left sternal border at the apex. There is no rub. ABDOMEN: Soft and nontender. There is no hepatosplenomegaly. Bowel sounds are well heard. There are no tender areas or masses. EXTREMITIES: Femorals are diminished. Leg pulses difficult to palpate. There is a dressing on both ulcers of both feet, which are nonhealing. There is trace pedal edema. There is no DVT or cellulitis. There is no calf tenderness. REINSURANCE CLERK: The patient is conscious, awake, alert, oriented x3. No focal deficit. PSYCHIATRIC: The patient's judgment and insight are intact. Affect is normal. The patient's nocturnal oxygen saturation shows one episode of a few seconds of O2 sat dropping to 80%. Otherwise, they have been about 90%. She is having PFTs today. White count 6900, hemoglobin 9.1, hematocrit 28.2, and platelet count is 268,000. The patient's sodium is 145, potassium 4.1, chloride 104, CO2 is 30. The patient's BUN is 17, creatinine 0.77. GFR is greater than 60. Glucose 66. Calcium 9.1, magnesium 1.5. NT-proBNP is 3460. ASSESSMENT: 1. NON-CARDIAC CHEST PAIN, resolved. No recurrence. The patient does have a history of coronary artery disease, old myocardial infarction, and history of coronary artery bypass grafting surgery. Later this admission, will get IV Lexiscan Cardiolite stress test. 2. ACUTE ON CHRONIC DIASTOLIC HEART FAILURE. At present, seems to be improving. Note that the patient's left ventricular ejection fraction is now normal by echocardiogram recently. 3. HYPERTENSION. 4. CORONARY ARTERY DISEASE. History of myocardial infarction and history of coronary artery bypass grafting surgery. Non-cardiac chest pain. Continue cardiac medication. Will schedule the patient for Cardiolite stress test later. 5. NONCOMPLIANCE. 6. PERIPHERAL ARTERIAL DISEASE. 7. NONHEALING ULCER OF BOTH HEELS. 8. QUESTION CHRONIC OBSTRUCTIVE PULMONARY DISEASE by exam. Awaiting results of the patient's pulmonary function tests. Note that the patient used to be a smoker in the past. No definite hypoxemia and hence low probability of the patient having sleep apnea. Note the patient's medications have been reviewed and discussed with the attending physician taking care of the patient. Note that 40 minutes were spent on this patient, with more than 50% of time spent in direct patient care. Medical decision making is of moderate to high complexity. Will follow with you. Await PFTs. Discussed results of nocturnal oximetry with the patient. PLAN: @ DICTATING PHYSICIAN: RICHIE LARIOS M.D. [id number] PHY#: [id number] ID: [id number] JOB#: [id number] ACCT: [id number] cc: >
[2017-11-13 04:56] LABS: ABSOLUTE BASOPHILS # (AUTO) 0.1 10^3/uL (0.0-0.2); ABSOLUTE EOSINOPHILS # (AUTO) 0.3 10^3/uL (0.0-0.6); ABSOLUTE MONOCYTES (AUTO) 0.7 10^3/uL (0.1-1.4); ABSOLUTE NEUT (AUTO) 3.3 10^3/uL (1.7-8.2); BASOPHILS % (AUTO) 1.1 % (0-2); EOSINOPHILS % (AUTO) 4.2 % (0-6); HEMATOCRIT 27.6 % (36.0-47.0); LYMPHOCYTES % (AUTO) 31.7 % (13-45); MEAN CORPUSCULAR HEMOGLOBIN 28.4 pg (27.0-33.4); MEAN CORPUSCULAR HGB CONC 32.8 g/dL (32.0-36.0); MEAN CORPUSCULAR VOLUME 86 fl (80-97); MONOCYTES % (AUTO) 11.5 % (3-13); PLATELET COUNT 256 10^3/uL (150-450); RED BLOOD COUNT 3.19 10^6/uL (3.72-5.28); RED CELL DISTRIBUTION WIDTH 16.6 % (11.5-14.0); SEGMENTED NEUTROPHILS % (AUTO) 51.5 % (42-78); TOTAL CELLS COUNTED % (AUTO) 100 %; WHITE BLOOD COUNT 6.5 10^3/uL (4.0-10.5)
[2017-11-13 05:10] LABS: ANION GAP 7 (5-19); BLOOD UREA NITROGEN 17 mg/dL (7-20); CALCIUM 8.5 mg/dL (8.4-10.2); CARBON DIOXIDE 33 mmol/L (22-30); CHLORIDE 104 mmol/L (98-107); GLUCOSE 142 mg/dL (75-110); POTASSIUM 4.2 mmol/L (3.6-5.0); SODIUM 144.4 mmol/L (137-145)
[2017-11-13] MEDS: FUROSEMIDE INJ/PF 40 MG/4 ML SDV IV SCH ×3 (05:44→22:12)
[2017-11-13] MEDS: GABAPENTIN 300 MG CAPSULE PO SCH ×5 (05:45→23:24)
[2017-11-13] MEDS: ISOSORBIDE MONONITRATE 20 MG TABLET PO SCH ×2 (05:45→13:36)
[2017-11-13] MEDS: HYDRALAZINE HCL 50 MG TABLET PO SCH ×3 (05:45→22:12)
[2017-11-13] MEDS: OXYCODONE HCL IR 5 MG TABLET PO PRN ×2 (08:23→22:19)
--- NOTE | 2017-11-13 08:37 | PDOC PROGRESS REPORT ---
Subjective Progress Note for:: 11/13/17 Subjective:: Complain about leg and feet pain. There is reported diarrhea but C.difficile toxin titer negative. Remain on IV Rocephin for ESBL E. coli infection. No chest pain or difficulty with breathing. No nausea, vomiting, or abdominal pain. Reason For Visit: CHEST PAIN,CHF Physical Exam Vital Signs: Temp Pulse Resp BP Pulse Ox 98.0 F 69 20 118/50 L 99 11/13/17 03:17 11/13/17 07:00 11/13/17 03:17 11/13/17 03:17 11/13/17 03:17 Pulse Oximeter Nocturnal Start: 11/11/17 19: 36 Freq: CONTINUOUS Status: Complete Document 11/12/17 00:20 LDA (Rec: 11/12/17 00:22 LDA [email or web address]) Nocturnal Pulse Oximetry Equipment Usage Equipment in Use Oxygen Delivery Method (includes room Nasal Cannula air) O2 Sat by Pulse Oximetry (92-100) 100 Continuous SpO2 Machine # [id number] Intake & Output 11/12/17 11/13/17 11/14/17 06:59 06:59 06:59 Intake Total 1519 1375 Output Total 3325 2650 Balance -1806 -1275 Weight 108.1 kg 106.3 kg Physical Exam: General appearance: PRESENT: no acute distress, morbidly obese Head exam: PRESENT: atraumatic, normocephalic Eye exam: PRESENT: conjunctiva pink, EOMI, PERRLA. ABSENT: scleral icterus Mouth exam: PRESENT: moist Neck exam: PRESENT: full ROM. ABSENT: carotid bruit, JVD, lymphadenopathy, thyromegaly Respiratory exam: PRESENT: clear to auscultation jerrica, decreased breath sounds - at lung bases Cardiovascular exam: PRESENT: RRR. ABSENT: diastolic murmur, rubs, systolic murmur Vascular exam: ABSENT: pallor GI/Abdominal exam: PRESENT: normal bowel sounds, soft. ABSENT: distended, guarding, mass, organomegaly, rebound, tenderness Gentrourinary exam: PRESENT: indwelling catheter Extremities exam: PRESENT: pedal edema - improving Musculoskeletal exam: PRESENT: deformity - left foot hind region chronic wound Neurological exam: PRESENT: alert, awake, oriented to person, oriented to place , oriented to time, oriented to situation, CN II-XII grossly intact. ABSENT: motor sensory deficit Psychiatric exam: PRESENT: appropriate affect, normal mood. ABSENT: homicidal ideation, suicidal ideation Skin exam: PRESENT: dry, warm, other - chronic diabetic and vascular ulcer on left foot Results Laboratory Results: 11/13/17 04:26 11/13/17 04:26 11/13/17 11/13/17 04:26 04:26 WBC 6.5 RBC 3.19 L Hgb 9.0 L Hct 27.6 L MCV 86 MCH 28.4 MCHC 32.8 RDW 16.6 H Plt Count 256 Seg Neutrophils % 51.5 Lymphocytes % 31.7 Monocytes % 11.5 Eosinophils % 4.2 Basophils % 1.1 Absolute Neutrophils 3.3 Absolute Lymphocytes 2.0 Absolute Monocytes 0.7 Absolute Eosinophils 0.3 Absolute Basophils 0.1 Sodium 144.4 Potassium 4.2 Chloride 104 Carbon Dioxide 33 H Anion Gap 7 BUN 17 Creatinine 0.83 Est GFR ( Amer) > 60 Est GFR (Non-Af Amer) > 60 Glucose 142 H Calcium 8.5 Magnesium 1.4 L 11/10/17 11/10/17 11/10/17 18:15 18:15 21:00 Creatine Kinase 33 31 CK-MB (CK-2) 0.45 Troponin I < 0.012 NT-Pro-B Natriuret Pep 11/10/17 11/11/17 11/11/17 21:00 02:59 02:59 Creatine Kinase 28 L CK-MB (CK-2) 0.39 0.22 Troponin I < 0.012 < 0.012 NT-Pro-B Natriuret Pep 11/11/17 11/12/17 11/13/17 02:59 05:44 04:26 Creatine Kinase CK-MB (CK-2) Troponin I NT-Pro-B Natriuret Pep 7200 H 3460 H 2030 H Urine Culture: E. Coli ESBL resistant to cephalosporins. Sensitive to Ertapenem. Impressions: Chest X-Ray 11/10/17 09:01 IMPRESSION: Pulmonary vascular prominence without alveolar or interstitial edema. Stable cardiomegaly, post CABG Venous Doppler Study 11/10/17 09:32 IMPRESSION: Acute DVT in the right superficial femoral vein and bilateral popliteal veins. Lung Scan-VQ NM 11/10/17 12:03 IMPRESSION: NORMAL VENTILATION-PERFUSION LUNG SCAN. NEGATIVE FOR PULMONARY EMBOLI. Abdomen Ultrasound 11/10/17 12:25 IMPRESSION: Multiple gallstones. Mildly increased gallbladder wall thickness, 3.6 mm. No pericholecystic fluid. Assessment & Plan - Diagnosis (1) Left leg DVT Qualifiers: Affected thrombotic vein of extremity: femoral Is this a current diagnosis for this admission?: Yes Plan: See attending physician orders. (2) Acute on chronic combined systolic and diastolic CHF, NYHA class 3 Is this a current diagnosis for this admission?: Yes Plan: See attending physician orders. (3) UTI (urinary tract infection) Qualifiers: Urinary tract infection type: site unspecified Hematuria presence: without hematuria Qualified Code(s): N39.0 - Urinary tract infection, site not specified Is this a current diagnosis for this admission?: Yes Plan: D/C IV Rocephin. Start on Ertapenem coverage. 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 2 diabetes mellitus Qualifiers: Diabetic foot ulcer location: heel Non-pressure ulcer stage: unspecified non-pressure ulcer stage Qualified Code(s): E11.621 - Type 2 diabetes mellitus with foot ulcer; L97.429 - Non-pressure chronic ulcer of left heel and midfoot with unspecified severity; L97.429 - Non-pressure chronic ulcer of left heel and midfoot with unspecified severity; L97.429 - Non-pressure chronic ulcer of left heel and midfoot with unspecified severity; L97.429 - Non- pressure chronic ulcer of left heel and midfoot with unspecified severity Is this a current diagnosis for this admission?: Yes Plan: See attending physician orders. (5) Diabetes mellitus type 2 in obese Is this a current diagnosis for this admission?: Yes Plan: See attending physician orders. (6) HTN (hypertension) Qualifiers: Is this a current diagnosis for this admission?: Yes Plan: See attending physician orders. (7) HLD (hyperlipidemia) Qualifiers: Hyperlipidemia type: pure hypercholesterolemia Qualified Code(s): E78.00 - Pure hypercholesterolemia, unspecified Is this a current diagnosis for this admission?: Yes Plan: See attending physician orders. (8) S/P CABG (coronary artery bypass graft) Is this a current diagnosis for this admission?: Yes Plan: See attending physician orders. (9) Chronic use of opiate for therapeutic purpose Is this a current diagnosis for this admission?: Yes Plan: See attending physician orders. - Time Time Spent with patient: 25-34 minutes Medications reviewed and adjusted accordingly: Yes Anticipated discharge: Home with Homehealth Within: Other - Inpatient Certification Based on my medical assessment, after consideration of the patient's comorbidities, presenting symptoms, or acuity I expect that the services needed warrant INPATIENT care.: Yes I certify that my determination is in accordance with my understanding of Medicare's requirements for reasonable and necessary INPATIENT services [42 CFR 412.3e].: Yes Medical Necessity: Need Close Monitoring Due to Risk of Patient Decompensation, Need For Continuous Telemetry Monitoring, Need for IV Antibiotics, Risk of Complication if Not Cared For in Hospital Post Hospital Care: D/C Coating Engineer Documentation - Plan Summary Plan Summary: See attending physician orders.
[2017-11-13] MEDS: SACUBITRIL/VALSARTAN 97 MG/103 MG TABLET PO SCH ×2 (10:35→22:12)
[2017-11-13] MEDS: ENOXAPARIN SODIUM INJ 120 MG/0.8 ML DISP.SYRIN SUBCUT SCH ×2 (10:35→22:12)
[2017-11-13] MEDS: AMLODIPINE BESYLATE 10 MG TABLET PO SCH (10:35)
[2017-11-13] MEDS: CLOPIDOGREL BISULFATE 75 MG TABLET PO SCH (10:35)
[2017-11-13] MEDS: DIGOXIN 0.125 MG TABLET PO SCH (10:36)
[2017-11-13] MEDS: ASPIRIN 81 MG TABLET, ENT COATED PO SCH (10:36)
[2017-11-13] MEDS: ERTAPENEM SODIUM 1 GM in NORMAL SALINE 50 ML IV SCH (10:36)
[2017-11-13] MEDS: CARVEDILOL 6.25 MG TABLET PO SCH ×2 (10:36→22:13)
[2017-11-13] MEDS: INSULIN DETEMIR 100 UNIT/ML 3 ML PEN SUBCUT SCH ×2 (10:37→22:14)
[2017-11-13] MEDS: DOCUSATE SODIUM 100 MG CAPSULE PO SCH ×2 (10:37→17:45)
--- NOTE | 2017-11-13 11:10 | Pulmonary Function Test ---
Pulmonary Function Test Date of Procedure:: 11/13/17 INDICATION:: Shortness of breath Referring Provider: Dr. Harding Toolroom Keeper: Birdie Riggins SUPERVISOR DIE CASTING, AUTO AIR CONDITIONING APPRENTICE - Report Spirometry: FVC 1.71 L 58% postbronchodilator 1.69 L 57% FEV1 1.30 L 54% postbronchodilator 1.35 L 56% FEV1/FVC % 76 postbronchodilator 80 predicted 82 FEF 25-75% 1.13 L 44% postbronchodilator 1.39 L 55% Lung Volume: Total lung capacity 2.87 L 59% Vital capacity 1.71 L 58% Inspiratory capacity 1.49 L FRC N21.38 liters 85% RV 1.14 L 82% RV/TLC % 40 predicted 38 Diffusion Capactity: Diffusion capacity 11.1 44% DLCO/VA 3.69 96% Impression: Moderate obstructive ventilatory defect with good response to bronchodilator therapy. Moderate restrictive ventilatory defect. (Restrictive defect may mask the degree of obstruction) no hyperinflation or air trapping. Severe decrease in diffusion capacity.
[2017-11-13] MEDS ORDERED: FLUTICASONE/SALMETEROL DISKUS 250-50 MCG/DOSE IH SCH (12:30)
[2017-11-13] MEDS: INSULIN LISPRO 100 UNIT/ML 3 ML VIAL SUBCUT PRN ×2 (13:01→17:43)
[2017-11-13] MEDS ORDERED: FLUTICASONE/UMECLIDIN/VILANTER 100-62.5-25 MCG/DOSE IH ONE (15:00)
[2017-11-13] MEDS ORDERED: BUDESONIDE/FORMOTEROL 160-4.5 MCG 60 PUFF/6 GM MDI IH SCH (22:00)
[2017-11-13] MEDS: ATORVASTATIN CALCIUM 10 MG TABLET PO SCH (22:13)
--- NOTE | 2017-11-13 23:25 | PROGRESS NOTE E ---
Progress Note NAME: JAVIER BURGER : 1955 AGE: 62Y DATE: 11/13/2017 ROOM: 324 SUBJECTIVE: Note that the patient states that her shortness of breath is much improved. She still has some orthopnea but no PND and there is no leg edema today. There are no anginal symptoms. There is no arrhythmia seen on the monitor. There are no TIA or CVA symptoms. There is no dizziness or syncope or near syncope. The patient is in sinus rhythm. Her *------*. OBJECTIVE: GENERAL: On examination the patient is morbidly obese, but well-groomed, in no acute distress. VITAL SIGNS: She is afebrile with a temperature of 97.9 degrees Fahrenheit axillary temperature, pulse is 71 beats per minute, blood pressure 124/55, respirations are 20 per minute, O2 saturations are 98% on 3 liters nasal cannula. HEENT: Head is atraumatic, normocephalic. Eyes: Pupils are equal, round and regular, reactive to light and accommodation. Extraocular movements are normal. There is no conjunctival pallor. There is no scleral icterus. ENT is negative. NECK: Supple. There is no JVD. There is no lymphadenopathy. There is no goiter. Carotids are equal. There is no bruit. Trachea is central. LUNGS: Show diminished air entry, prolonged expiration without any rhonchi, rales, or wheezing. On percussion there is hyperresonance throughout. There are no rales of CHF. HEART: S1, S2 is heard. There is no S3 gallop. There is no S4 gallop. There is a systolic murmur in the left sternal border and the apex. There is no rub. ABDOMEN: Soft, nontender. There is no hepatosplenomegaly. Bowel sounds are well heard. There are no tender areas or masses. EXTREMITIES: Femorals are diminished. Leg pulses are difficult to palpate. There is dressing on both ulcers of both feet which are nonhealing. There is trace pedal edema. There is no DVT or cellulitis. There is no calf tenderness. CENTRAL NERVOUS SYSTEM: The patient is conscious, awake, alert and oriented x3 with no focal deficits. PSYCHIATRIC: The patient's judgment and insight are intact. Her affect is normal. DIAGNOSTICS: Note that the patient's PFT shows moderate obstructive defect with good response to bronchodilator therapy, moderate restrictive ventilator defect, and severe decrease in diffusion capacity. The white count is 6500, hemoglobin is 9, hematocrit is 27.6, platelet count is 256,000. Sodium is 144.4, potassium 4.2, chloride is 104, CO2 is 33. The patient's BUN is 17, creatinine 0.83, GFR is greater than 60. Her glucose is 142. The patient's calcium is 8.5, magnesium is low at 1.4. Her NT-proBNP is 2030. IMPRESSION: 1. NONCARDIAC CHEST PAIN, RESOLVED, NO RECURRENCE. The patient does have a history of coronary artery disease, old myocardial infarction, and history of coronary artery bypass graft surgery. Later this admission we will get an IV Lexiscan Cardiolite stress test. 2. OCCASIONAL CHRONIC DIASTOLIC HEART FAILURE, AT PRESENT COMPENSATED. Note the patient's ejection fraction is now normal by echocardiogram done recently. 3. HYPERTENSION, WELL-CONTROLLED. 4. CORONARY ARTERY DISEASE, HISTORY OF MYOCARDIAL INFARCTION, AND HISTORY OF CORONARY ARTERY BYPASS GRAFT SURGERY. NO ANGINAL SYMPTOMS. 5. NONCOMPLIANCE. 6. 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 7. COPD BY EXAM AND ALSO OBSTRUCTION ON PFT. We will start the patient on Symbicort HFA inhalation q.12 hours and also on Advair Diskus. 8. DIABETES MELLITUS WITH PERIPHERAL ARTERIAL DISEASE. Continue her insulin. 9. HYPOMAGNESEMIA. We will replace the patient's magnesium. PLAN: We will discuss with Dr. Moffett in view of the patient's normal renal function and normal LV ejection fraction and COPD probably would change the patient's Coreg to Toprol XL. Also I do not see why the patient needs to be on Entresto which is a costly medication, we can just place the patient on an ARB. We will discuss with the attending physician, Dr. Moffett. Note medications have been reviewed. Medical decision making is of high complexity. Medications have been added, isosorbide dinitrate has been discontinued and I have placed the patient on Imdur at 60 mg p.o. daily. TIME SPENT: Forty minutes spent on this with more than 50% of the time spent on direct patient care. We will follow with you. DICTATING PHYSICIAN: RICHIE LARIOS M.D. [id number] [employer]ierce#: [id number] ID: [id number] JOB#: [id number] ACCT: [id number] cc: >
[2017-11-14] MEDS: HYDRALAZINE HCL 50 MG TABLET PO SCH ×3 (05:51→21:22)
[2017-11-14] MEDS: FUROSEMIDE INJ/PF 40 MG/4 ML SDV IV SCH (05:51)
[2017-11-14] MEDS: GABAPENTIN 300 MG CAPSULE PO SCH ×3 (05:57→21:23)
--- NOTE | 2017-11-14 08:25 | PDOC PROGRESS REPORT ---
Subjective Progress Note for:: 11/14/17 Subjective:: Complain about difficulty waking up in the morning due to night dose of Gabapentin. She admitted to smoking about 1 pack of cigarette per week in the past for several years. leg and feet pain. She denied any chest pain or difficulty with breathing. Remain on supplemental oxygen via nasal cannula at 2L /min. No nausea, vomiting, or abdominal pain. Reason For Visit: CHEST PAIN,CHF Physical Exam Vital Signs: Temp Pulse Resp BP Pulse Ox 98.4 F 64 16 121/56 L 99 11/14/17 03:51 11/14/17 03:51 11/14/17 03:51 11/14/17 03:51 11/14/17 03:51 Pulse Oximeter Nocturnal Start: 11/11/17 19: 36 Freq: CONTINUOUS Status: Complete Document 11/12/17 00:20 LDA (Rec: 11/12/17 00:22 LDA [email or web address]) Nocturnal Pulse Oximetry Equipment Usage Equipment in Use Oxygen Delivery Method (includes room Nasal Cannula air) O2 Sat by Pulse Oximetry (92-100) 100 Continuous SpO2 Machine # [id number] Intake & Output 11/13/17 11/14/17 11/15/17 06:59 06:59 06:59 Intake Total 1375 1764 Output Total 2650 1025 Balance -1275 739 Weight 106.3 kg 106.9 kg Physical Exam: General appearance: PRESENT: no acute distress, morbidly obese Head exam: PRESENT: atraumatic, normocephalic Eye exam: PRESENT: conjunctiva pink, EOMI, PERRLA. ABSENT: scleral icterus Mouth exam: PRESENT: moist Neck exam: PRESENT: full ROM. ABSENT: carotid bruit, JVD, lymphadenopathy, thyromegaly Respiratory exam: PRESENT: clear to auscultation jerrica, decreased breath sounds - at lung bases Cardiovascular exam: PRESENT: RRR. ABSENT: diastolic murmur, rubs, systolic murmur Vascular exam: ABSENT: pallor GI/Abdominal exam: PRESENT: normal bowel sounds, soft. ABSENT: distended, guarding, mass, organomegaly, rebound, tenderness Gentrourinary exam: PRESENT: indwelling catheter Extremities exam: PRESENT: pedal edema - improving Musculoskeletal exam: PRESENT: deformity - left foot hind region chronic wound Neurological exam: PRESENT: alert, awake, oriented to person, oriented to place , oriented to time, oriented to situation, CN II-XII grossly intact. ABSENT: motor sensory deficit Psychiatric exam: PRESENT: appropriate affect, normal mood. ABSENT: homicidal ideation, suicidal ideation Skin exam: PRESENT: dry, warm, other - chronic diabetic and vascular ulcer on left foot Results Laboratory Results: 11/13/17 04:26 11/13/17 04:26 11/10/17 11/10/17 11/10/17 18:15 18:15 21:00 Creatine Kinase 33 31 CK-MB (CK-2) 0.45 Troponin I < 0.012 NT-Pro-B Natriuret Pep 11/10/17 11/11/17 11/11/17 21:00 02:59 02:59 Creatine Kinase 28 L CK-MB (CK-2) 0.39 0.22 Troponin I < 0.012 < 0.012 NT-Pro-B Natriuret Pep 11/11/17 11/12/17 11/13/17 02:59 05:44 04:26 Creatine Kinase CK-MB (CK-2) Troponin I NT-Pro-B Natriuret Pep 7200 H 3460 H 2030 H Impressions: Chest X-Ray 11/10/17 09:01 IMPRESSION: Pulmonary vascular prominence without alveolar or interstitial edema. Stable cardiomegaly, post CABG Venous Doppler Study 11/10/17 09:32 IMPRESSION: Acute DVT in the right superficial femoral vein and bilateral popliteal veins. Lung Scan-VQ NM 11/10/17 12:03 IMPRESSION: NORMAL VENTILATION-PERFUSION LUNG SCAN. NEGATIVE FOR PULMONARY EMBOLI. Abdomen Ultrasound 11/10/17 12:25 IMPRESSION: Multiple gallstones. Mildly increased gallbladder wall thickness, 3.6 mm. No pericholecystic fluid. Assessment & Plan - Diagnosis (1) Left leg DVT Qualifiers: Affected thrombotic vein of extremity: femoral Is this a current diagnosis for this admission?: Yes Plan: D/C Plavix and Lovenox usage. Start on Eliquis 5 mg po bid.See attending physician orders. (2) Acute on chronic combined systolic and diastolic CHF, NYHA class 3 Is this a current diagnosis for this admission?: Yes Plan: Cardiology consult input appreciated. Patient LVEF was 35% on 04/20/2017. Her LVEF at about 50% on 10/09/17 is an improvement and probably due to her current management. We will reevaluated discontinuation of Entresto. Patient's NT-Pro BNP has improved since admission. D/C IV Lasix. Restart on Lasix 40 mg po bid. See attending physician orders. (3) UTI (urinary tract infection) Qualifiers: Urinary tract infection type: site unspecified Hematuria presence: without hematuria Qualified Code(s): N39.0 - Urinary tract infection, site not specified Is this a current diagnosis for this admission?: Yes Plan: Maintain on Ertapenem coverage. D/C indwelling Lantigua cath. Patient was instructed on use of bedside commode. 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 2 diabetes mellitus Qualifiers: Diabetic foot ulcer location: heel Non-pressure ulcer stage: unspecified non-pressure ulcer stage Qualified Code(s): E11.621 - Type 2 diabetes mellitus with foot ulcer; L97.429 - Non-pressure chronic ulcer of left heel and midfoot with unspecified severity; L97.429 - Non-pressure chronic ulcer of left heel and midfoot with unspecified severity; L97.429 - Non-pressure chronic ulcer of left heel and midfoot with unspecified severity; L97.429 - Non- pressure chronic ulcer of left heel and midfoot with unspecified severity Is this a current diagnosis for this admission?: Yes Plan: See attending physician orders. (5) Diabetes mellitus type 2 in obese Is this a current diagnosis for this admission?: Yes Plan: See attending physician orders. (6) HTN (hypertension) Qualifiers: Is this a current diagnosis for this admission?: Yes Plan: See attending physician orders. (7) HLD (hyperlipidemia) Qualifiers: Hyperlipidemia type: pure hypercholesterolemia Qualified Code(s): E78.00 - Pure hypercholesterolemia, unspecified Is this a current diagnosis for this admission?: Yes Plan: See attending physician orders. (8) S/P CABG (coronary artery bypass graft) Is this a current diagnosis for this admission?: Yes Plan: See attending physician orders. (9) Chronic use of opiate for therapeutic purpose Is this a current diagnosis for this admission?: Yes Plan: See attending physician orders. (10) COPD (chronic obstructive pulmonary disease) Qualifiers: COPD type: unspecified COPD Qualified Code(s): J44.9 - Chronic obstructive pulmonary disease, unspecified Is this a current diagnosis for this admission?: Yes Plan: Start on Anoro Ellipta 1 puff po daily and Proventil HFA 2 puffs po q4 hours prn for wheezing upon discaharge. Maintain on current DuoNeb therapy on PRN basis. - Time Time Spent with patient: 25-34 minutes Medications reviewed and adjusted accordingly: Yes Anticipated discharge: Home with Homehealth Within: Other - Inpatient Certification Based on my medical assessment, after consideration of the patient's comorbidities, presenting symptoms, or acuity I expect that the services needed warrant INPATIENT care.: Yes I certify that my determination is in accordance with my understanding of Medicare's requirements for reasonable and necessary INPATIENT services [42 CFR 412.3e].: Yes Medical Necessity: Need Close Monitoring Due to Risk of Patient Decompensation, Need For Continuous Telemetry Monitoring, Need for Nebulizer Therapy and Monitoring of Response, Need for IV Antibiotics, Risk of Complication if Not Cared For in Hospital Post Hospital Care: D/C Radiator Fitter Documentation - Plan Summary Plan Summary: See attending physician note.
[2017-11-14] MEDS: ISOSORBIDE MONONITRATE 60 MG TAB.ER.24H PO SCH (09:47)
[2017-11-14] MEDS: INSULIN DETEMIR 100 UNIT/ML 3 ML PEN SUBCUT SCH ×2 (09:47→22:12)
[2017-11-14] MEDS: FUROSEMIDE 40 MG TABLET PO SCH ×2 (09:48→18:16)
[2017-11-14] MEDS: DOCUSATE SODIUM 100 MG CAPSULE PO SCH ×2 (09:49→18:17)
[2017-11-14] MEDS: APIXABAN 5 MG TABLET PO SCH ×2 (09:49→18:16)
[2017-11-14] MEDS: FLUTICASONE/UMECLIDIN/VILANTER 100-62.5-25 MCG/DOSE IH SCH (09:49)
[2017-11-14] MEDS: AMLODIPINE BESYLATE 10 MG TABLET PO SCH (09:49)
[2017-11-14] MEDS: CARVEDILOL 6.25 MG TABLET PO SCH ×2 (09:49→21:22)
[2017-11-14] MEDS: ASPIRIN 81 MG TABLET, ENT COATED PO SCH (09:49)
[2017-11-14] MEDS: DIGOXIN 0.125 MG TABLET PO SCH (09:50)
[2017-11-14] MEDS: SACUBITRIL/VALSARTAN 97 MG/103 MG TABLET PO SCH ×2 (09:50→21:22)
[2017-11-14] MEDS: ERTAPENEM SODIUM 1 GM in NORMAL SALINE 50 ML IV SCH (09:51)
[2017-11-14] MEDS: ATORVASTATIN CALCIUM 10 MG TABLET PO SCH (21:22)
--- NOTE | 2017-11-15 00:21 | PROGRESS NOTE E ---
Progress Note NAME: JAVIER BURGER : 1955 AGE: 62Y DATE: 11/14/2017 ROOM: 324 SUBJECTIVE: The patient states the shortness of breath is slightly improved. She states she has had slight improvement with the bronchodilators. The patient does appear to be depressed. She has no anginal symptoms. There is no PND, orthopnea, or leg edema. There is no dizziness, syncope, or near syncope. The patient is in sinus rhythm. There are no arrhythmias seen on the monitor. OBJECTIVE: GENERAL: The patient is morbidly obese, but well groomed and in no acute distress. VITAL SIGNS: She is afebrile with a temperature of 98.1 degrees Fahrenheit, pulse 67 beats per minute, blood pressure 114/46, respirations 18 per minute, O2 sats are 99% on 3 liters nasal cannula. HEENT: Head is atraumatic/normocephalic. Eyes: Pupils are equal, round, regular, reactive to light and accommodation. Extraocular movements are normal. There is no conjunctival pallor. There is no scleral icterus. ENT is negative. NECK: Supple. There is no JVD. There is no lymphadenopathy. There is no goiter. Carotids are equal. There is no bruit. Trachea is central. LUNGS: Diminished air entry, prolonged expiration without any rhonchi, rales, or wheezing. On percussion, there is hyperresonance throughout. There are no rales of CHF. HEART: S1, S2 heard. There is no S3 gallop. There is no S4 gallop. There is a systolic murmur left sternal border of the apex. There is no rub. ABDOMEN: Soft, nontender. There is no hepatosplenomegaly. Bowel sounds are well heard. There are no tender areas or masses. EXTREMITIES: Femorals are diminished. Leg pulses difficult to palpate. There are no femoral bruits. There is dressing on ulcers of both feet, which are nonhealing. There is no pedal edema today. There is no DVT or cellulitis. There is no calf tenderness. There is no cyanosis or clubbing. SUPERVISOR ORDER TAKERS: The patient is conscious, awake, alert, oriented x3. PSYCHIATRIC: The patient does appear to be depressed, but she is not agitated. Judgment and insight seem to be intact. The patient's blood sugar is 139. ASSESSMENT: 1. NONCARDIAC CHEST PAIN, resolved. No recurrence or spread. 2. CHRONIC DIASTOLIC HEART FAILURE. At present, compensated. Note the patient's ejection fraction is now normal. 3. HYPERTENSION. Well controlled. 4. CORONARY ARTERY DISEASE. History of myocardial infarction and history of coronary artery bypass grafting surgery. No anginal symptoms. 5. NONCOMPLIANCE. 6. PERIPHERAL ARTERIAL DISEASE with nonhealing ulcer of both heels. 7. CHRONIC OBSTRUCTIVE PULMONARY DISEASE. 8. OBSTRUCTIVE SLEEP APNEA. Will continue the patient on Symbicort and also continue the patient on Advair Diskus. 9. DIABETES MELLITUS WITH PERIPHERAL ARTERIAL DISEASE. PLAN: Note medications have been reviewed. Will continue the current medications. There are no changes in medications. Discussed with attending physician taking care of the patient. Will see if we can change the patient's Coreg to Toprol after discussion with the attending. Note 40 minutes spent on this patient with more than 50% of the time spent in direct patient care. Medical decision making is of moderate complexity. Will see if the patient still remains, and will get an IV Lexiscan Cardiolite stress test on Sunday. Will follow with you. DICTATING PHYSICIAN: RICHIE LARIOS M.D. [id number] PHY#: [id number] ID: [id number] JOB#: [id number] ACCT: [id number] cc: >
[2017-11-15] MEDS: GABAPENTIN 300 MG CAPSULE PO SCH ×4 (05:08→22:29)
[2017-11-15] MEDS: HYDRALAZINE HCL 50 MG TABLET PO SCH ×3 (05:11→22:21)
--- NOTE | 2017-11-15 08:06 | PDOC PROGRESS REPORT ---
Subjective Progress Note for:: 11/15/17 Subjective:: She denied any chest pain or difficulty with breathing. Remain on supplemental oxygen via nasal cannula at 2L/min. No nausea, vomiting, or abdominal pain. Reported more pain today. Her Gabapentin was downscale yesterday. She reported difficulty with falling asleep at night and associated daytime sleepiness that she reported yesterday. Reason For Visit: CHEST PAIN,CHF Physical Exam Vital Signs: Temp Pulse Resp BP Pulse Ox 97.6 F 69 19 124/52 L 94 11/15/17 03:56 11/15/17 03:56 11/15/17 03:56 11/15/17 03:56 11/15/17 03:56 Pulse Oximeter Nocturnal Start: 11/11/17 19: 36 Freq: CONTINUOUS Status: Complete Document 11/12/17 00:20 LDA (Rec: 11/12/17 00:22 LDA [email or web address]) Nocturnal Pulse Oximetry Equipment Usage Equipment in Use Oxygen Delivery Method (includes room Nasal Cannula air) O2 Sat by Pulse Oximetry (92-100) 100 Continuous SpO2 Machine # [id number] Intake & Output 11/14/17 11/15/17 11/16/17 06:59 06:59 06:59 Intake Total 1764 1382 Output Total 1025 1100 Balance 739 282 Weight 106.9 kg 106.3 kg Physical Exam: General appearance: PRESENT: no acute distress, morbidly obese Head exam: PRESENT: atraumatic, normocephalic Eye exam: PRESENT: conjunctiva pink, EOMI, PERRLA. ABSENT: scleral icterus Mouth exam: PRESENT: moist Neck exam: PRESENT: full ROM. ABSENT: carotid bruit, JVD, lymphadenopathy, thyromegaly Respiratory exam: PRESENT: clear to auscultation jerrica, decreased breath sounds - at lung bases Cardiovascular exam: PRESENT: RRR. ABSENT: diastolic murmur, rubs, systolic murmur Vascular exam: ABSENT: pallor GI/Abdominal exam: PRESENT: normal bowel sounds, soft. ABSENT: distended, guarding, mass, organomegaly, rebound, tenderness Gentrourinary exam: PRESENT: indwelling catheter Extremities exam: PRESENT: pedal edema - improving Musculoskeletal exam: PRESENT: deformity - left foot hind region chronic wound Neurological exam: PRESENT: alert, awake, oriented to person, oriented to place , oriented to time, oriented to situation, CN II-XII grossly intact. ABSENT: motor sensory deficit Psychiatric exam: PRESENT: appropriate affect, normal mood. ABSENT: homicidal ideation, suicidal ideation Skin exam: PRESENT: dry, warm, other - chronic diabetic and vascular ulcer on left foot Results Laboratory Results: 11/13/17 04:26 11/13/17 04:26 11/11/17 14:50 Stool - Stool Clostridium difficile Toxin A&B (M) - Final 11/10/17 11/10/17 11/10/17 18:15 18:15 21:00 Creatine Kinase 33 31 CK-MB (CK-2) 0.45 Troponin I < 0.012 NT-Pro-B Natriuret Pep 11/10/17 11/11/17 11/11/17 21:00 02:59 02:59 Creatine Kinase 28 L CK-MB (CK-2) 0.39 0.22 Troponin I < 0.012 < 0.012 NT-Pro-B Natriuret Pep 11/11/17 11/12/17 11/13/17 02:59 05:44 04:26 Creatine Kinase CK-MB (CK-2) Troponin I NT-Pro-B Natriuret Pep 7200 H 3460 H 2030 H Impressions: Chest X-Ray 11/10/17 09:01 IMPRESSION: Pulmonary vascular prominence without alveolar or interstitial edema. Stable cardiomegaly, post CABG Venous Doppler Study 11/10/17 09:32 IMPRESSION: Acute DVT in the right superficial femoral vein and bilateral popliteal veins. Lung Scan-VQ NM 11/10/17 12:03 IMPRESSION: NORMAL VENTILATION-PERFUSION LUNG SCAN. NEGATIVE FOR PULMONARY EMBOLI. Abdomen Ultrasound 11/10/17 12:25 IMPRESSION: Multiple gallstones. Mildly increased gallbladder wall thickness, 3.6 mm. No pericholecystic fluid. Assessment & Plan - Diagnosis (1) Left leg DVT Qualifiers: Affected thrombotic vein of extremity: femoral Is this a current diagnosis for this admission?: Yes (2) Acute on chronic combined systolic and diastolic CHF, NYHA class 3 Is this a current diagnosis for this admission?: Yes (3) UTI (urinary tract infection) Qualifiers: Urinary tract infection type: site unspecified Hematuria presence: without hematuria Qualified Code(s): N39.0 - Urinary tract infection, site not specified Is this a current diagnosis for this admission?: Yes 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 2 diabetes mellitus Qualifiers: Diabetic foot ulcer location: heel Non-pressure ulcer stage: unspecified non-pressure ulcer stage Qualified Code(s): E11.621 - Type 2 diabetes mellitus with foot ulcer; L97.429 - Non-pressure chronic ulcer of left heel and midfoot with unspecified severity; L97.429 - Non-pressure chronic ulcer of left heel and midfoot with unspecified severity; L97.429 - Non-pressure chronic ulcer of left heel and midfoot with unspecified severity; L97.429 - Non- pressure chronic ulcer of left heel and midfoot with unspecified severity Is this a current diagnosis for this admission?: Yes (5) Diabetes mellitus type 2 in obese Is this a current diagnosis for this admission?: Yes (6) HTN (hypertension) Qualifiers: Is this a current diagnosis for this admission?: Yes (7) HLD (hyperlipidemia) Qualifiers: Hyperlipidemia type: pure hypercholesterolemia Qualified Code(s): E78.00 - Pure hypercholesterolemia, unspecified Is this a current diagnosis for this admission?: Yes (8) S/P CABG (coronary artery bypass graft) Is this a current diagnosis for this admission?: Yes (9) Chronic use of opiate for therapeutic purpose Is this a current diagnosis for this admission?: Yes (10) COPD (chronic obstructive pulmonary disease) Qualifiers: COPD type: unspecified COPD Qualified Code(s): J44.9 - Chronic obstructive pulmonary disease, unspecified Is this a current diagnosis for this admission?: Yes - Time Time Spent with patient: 25-34 minutes Medications reviewed and adjusted accordingly: Yes Anticipated discharge: Home with Homehealth Within: Other - Inpatient Certification Based on my medical assessment, after consideration of the patient's comorbidities, presenting symptoms, or acuity I expect that the services needed warrant INPATIENT care.: Yes I certify that my determination is in accordance with my understanding of Medicare's requirements for reasonable and necessary INPATIENT services [42 CFR 412.3e].: Yes Medical Necessity: Need Close Monitoring Due to Risk of Patient Decompensation, Need For Continuous Telemetry Monitoring, Need for IV Antibiotics, Risk of Complication if Not Cared For in Hospital Post Hospital Care: D/C Anesthesiologist And Critical Care Documentation - Plan Summary Plan Summary: I will reinstate her Gabapentin at 6hours interval. Maintain on Gentamicin ointment topical dressing to her left foot chronic wound for daily dressing. Follow up on proposed IV Lexiscan stress testing for tomorrow. Continue on all other current medication management.
[2017-11-15] MEDS: AMLODIPINE BESYLATE 10 MG TABLET PO SCH (09:54)
[2017-11-15] MEDS: CARVEDILOL 6.25 MG TABLET PO SCH ×2 (09:56→22:26)
[2017-11-15] MEDS: FUROSEMIDE 40 MG TABLET PO SCH ×2 (09:57→17:12)
[2017-11-15] MEDS: ASPIRIN 81 MG TABLET, ENT COATED PO SCH (09:58)
[2017-11-15] MEDS: APIXABAN 5 MG TABLET PO SCH ×2 (09:58→17:12)
[2017-11-15] MEDS: SACUBITRIL/VALSARTAN 97 MG/103 MG TABLET PO SCH ×2 (09:58→22:22)
[2017-11-15] MEDS: ISOSORBIDE MONONITRATE 60 MG TAB.ER.24H PO SCH (09:58)
[2017-11-15] MEDS: ERTAPENEM SODIUM 1 GM in NORMAL SALINE 50 ML IV SCH (09:59)
[2017-11-15] MEDS: FLUTICASONE/UMECLIDIN/VILANTER 100-62.5-25 MCG/DOSE IH SCH (10:00)
[2017-11-15] MEDS: DOCUSATE SODIUM 100 MG CAPSULE PO SCH ×2 (10:01→17:13)
[2017-11-15] MEDS: DIGOXIN 0.125 MG TABLET PO SCH (10:19)
[2017-11-15 11:54] LABS: ABSOLUTE EOSINOPHILS # (AUTO) 0.1 10^3/uL (0.0-0.6); ABSOLUTE LYMPHOCYTES (AUTO) 1.6 10^3/uL (0.5-4.7); ABSOLUTE MONOCYTES (AUTO) 0.6 10^3/uL (0.1-1.4); ABSOLUTE NEUT (AUTO) 3.9 10^3/uL (1.7-8.2); BASOPHILS % (AUTO) 0.5 % (0-2); EOSINOPHILS % (AUTO) 2.4 % (0-6); HEMATOCRIT 28.9 % (36.0-47.0); HEMOGLOBIN 9.3 g/dL (12.0-15.5); LYMPHOCYTES % (AUTO) 24.9 % (13-45); MEAN CORPUSCULAR HEMOGLOBIN 28.2 pg (27.0-33.4); MEAN CORPUSCULAR HGB CONC 32.2 g/dL (32.0-36.0); MEAN CORPUSCULAR VOLUME 88 fl (80-97); PLATELET COUNT 244 10^3/uL (150-450); SEGMENTED NEUTROPHILS % (AUTO) 62.2 % (42-78); TOTAL CELLS COUNTED % (AUTO) 100 %; WHITE BLOOD COUNT 6.2 10^3/uL (4.0-10.5)
[2017-11-15 12:22] LABS: ANION GAP 9 (5-19); BLOOD UREA NITROGEN 19 mg/dL (7-20); CARBON DIOXIDE 32 mmol/L (22-30); CHLORIDE 106 mmol/L (98-107); GLUCOSE 116 mg/dL (75-110)
[2017-11-15] MEDS: INSULIN DETEMIR 100 UNIT/ML 3 ML PEN SUBCUT SCH ×2 (13:32→22:26)
[2017-11-15] MEDS: GENTAMICIN SULFATE 0.1% OINTMENT 15 GM TP SCH (13:48)
--- NOTE | 2017-11-15 21:36 | Progress Note ---
Provider Note Provider Note: PROGRESS NOTE for 11/15/2017. The patient looks less depressed today. She states her shortness of breath is improved. She still has some degree of orthopnea, but no PND or leg edema. There is no chest pain or discomfort. There is no arrhythmias seen on the monitor. There is no TIA or CVA symptoms. There is no palpitations syncope or near syncope. Selected Entries 11/15/17 08:14 Temperature 98.1 F Temperature Oral Source Pulse Rate 74 Respiratory 11 L Rate Blood Pressure 137/62 H Blood Pressure 87 Mean O2 Sat by Pulse 96 Oximetry Oxygen Flow 2.00 Rate Oxygen Delivery Nasal Cannula Method 11/15/17 11/15/17 11:17 11:17 WBC 6.2 Hgb 9.3 L Hct 28.9 L Plt Count 244 Sodium 147.0 H Potassium 4.0 Chloride 106 Carbon Dioxide 32 H BUN 19 Creatinine 0.78 Est GFR ( Amer) > 60 Glucose 116 H Calcium 9.0 Magnesium 1.7 The patient is morbidly obese, but well-groomed and in no acute distress. HEENT: Head is atraumatic/normocephalic. EYES: Pupils are equal round regular reactive to light accommodation external ocular movements are normal. There is no conjunctival pallor there is no scleral icterus. ENT is negative. Neck is supple there is no JVD carotids are equal there is no bruit there is no lymphadenopathy there is no goiter trachea is central. Lungs: There is diminished air entry and prolonged expiration without any rhonchi rales or wheezing. On percussion there is hyperresonance throughout. There are no rales of CHF. HEART: S1-S2 is heard there is no S3 gallop there is no S4 gallop there is a systolic murmur in the left sternal border and apex there is no rub. ABDOMEN: Abdomen is soft nontender there is no paraspinal megaly bowel sounds well heard there are no tender areas of masses. EXTREMITIES femorals are diminished. Leg pulses are difficult to palpate. There are no femoral bruits. There is dressing on the ulcers of both nonhealing ulcers of the feet which are. There is no pedal edema. There is no DVT or cellulitis there is no calf tenderness. There is no cyanosis or clubbing. PROMOTIONS REPRESENTATIVE: The patient is awake alert oriented 3 with no focal deficits. PSYCHIATRIC: The patient's judgment and insight are intact her affect is normal. ASSESSMENT: 1. NONCARDIAC CHEST PAIN: Resolved. No recurrence of this. 2. CHRONIC DIASTOLIC HEART FAILURE: At present compensated. At present the patient's ejection fraction is normal. 3. HYPERTENSION: Well controlled. Continue her current medications. 4. CORONARY ARTERY DISEASE: Prior history of myocardial infarction and history of coronary artery bypass graft surgery. No anginal symptoms. But would recommend since the patient is not a good historian to get a IV Lexiscan Cardiolite stress test which is been ordered for tomorrow. 5. NONCOMPLIANCE.: The importance of compliance with diet and medications stressed with the patient. 6. CHRONIC OBSTRUCTIVE PULMONARY DISEASE: Continue current inhalers. 7. PERIPHERAL ARTERIAL DISEASE.: Patient with nonhealing ulcers of her both feet./Heels. 8. OBSTRUCTIVE SLEEP APNEA we will continue the patient on CPAP and continue the patient's Symbicort and Advair Diskus. 9. DIABETES MELLITUS with peripheral arterial disease. Stable PLAN: Her medications have been reviewed. We will continue current medications. We will schedule the patient for the IV Lexiscan Cardiolite stress test tomorrow. Discussed with attending physician on the case. Medical decision making is of moderate to high complexity. The procedure process of stress testing with the risks and benefits and complications have been discussed with the patient in detail. Note 40 minutes spent on this patient. More than 50% of time was spent in direct patient will follow with you. Thank you end of dictation.
[2017-11-15] MEDS: ATORVASTATIN CALCIUM 10 MG TABLET PO SCH (22:21)
[2017-11-16] MEDS: HYDRALAZINE HCL 50 MG TABLET PO SCH ×2 (06:10→14:50)
[2017-11-16] MEDS: GABAPENTIN 300 MG CAPSULE PO SCH ×3 (06:10→17:11)
[2017-11-16] MEDS: SACUBITRIL/VALSARTAN 97 MG/103 MG TABLET PO SCH (12:05)
[2017-11-16] MEDS: NITROFURANTOIN MONOHYD/M-CRYST 100 MG CAPSULE PO SCH ×2 (12:05→17:09)
[2017-11-16] MEDS: AMLODIPINE BESYLATE 10 MG TABLET PO SCH (12:05)
[2017-11-16] MEDS: DIGOXIN 0.125 MG TABLET PO SCH (12:08)
[2017-11-16] MEDS: ISOSORBIDE MONONITRATE 60 MG TAB.ER.24H PO SCH (12:09)
[2017-11-16] MEDS: CARVEDILOL 6.25 MG TABLET PO SCH (12:09)
[2017-11-16] MEDS: APIXABAN 5 MG TABLET PO SCH ×2 (12:09→17:10)
[2017-11-16] MEDS: FUROSEMIDE 40 MG TABLET PO SCH ×2 (12:10→17:09)
[2017-11-16] MEDS: ASPIRIN 81 MG TABLET, ENT COATED PO SCH (12:10)
[2017-11-16] MEDS: GENTAMICIN SULFATE 0.1% OINTMENT 15 GM TP SCH (12:11)
[2017-11-16] MEDS: FLUTICASONE/UMECLIDIN/VILANTER 100-62.5-25 MCG/DOSE IH SCH (12:11)
[2017-11-16] MEDS: DOCUSATE SODIUM 100 MG CAPSULE PO SCH ×2 (12:23→17:11)
[2017-11-16] MEDS: INSULIN DETEMIR 100 UNIT/ML 3 ML PEN SUBCUT SCH (12:23)
[2017-11-16] MEDS ORDERED: REGADENOSON INJ 0.4 MG/5 ML DISP.SYRIN IV ONE (12:29)
[2017-11-16 17:05] VITALS: BP 180/90
--- NOTE | 2017-11-16 17:24 | PDOC DISCHARGE SUMMARY ---
General - Admit/Disc Date/PCP Admission Date/Primary Care Provider: 11/10/17 12:28 STEPHAN MICHELET Discharge Date: 11/16/17 - Discharge Diagnosis (1) Acute on chronic combined systolic and diastolic CHF, NYHA class 3 Is this a current diagnosis for this admission?: Yes Summary: See attending physician orders. (2) Left leg DVT Is this a current diagnosis for this admission?: Yes Summary: See attending physician orders. (3) UTI due to extended-spectrum beta lactamase (ESBL) producing Escherichia coli Is this a current diagnosis for this admission?: Yes Summary: See attending physician orders. 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 2 diabetes mellitus Is this a current diagnosis for this admission?: Yes Summary: See attending physician orders. (5) Diabetes mellitus type 2 in obese Is this a current diagnosis for this admission?: Yes Summary: See attending physician orders. (6) HTN (hypertension) Is this a current diagnosis for this admission?: Yes Summary: See attending physician orders. (7) HLD (hyperlipidemia) Is this a current diagnosis for this admission?: Yes Summary: See attending physician orders. (8) S/P CABG (coronary artery bypass graft) Is this a current diagnosis for this admission?: Yes Summary: See attending physician orders. (9) Chronic use of opiate for therapeutic purpose Is this a current diagnosis for this admission?: Yes Summary: See attending physician orders. (10) COPD (chronic obstructive pulmonary disease) Is this a current diagnosis for this admission?: Yes Summary: See attending physician orders. - Additional Information Resuscitation Status: Full Code Discharge Diet: Cardiac, Diabetic Discharge Activity: Activity As Tolerated, Balance Activity w/Rest, Weigh Daily Prescriptions: Apixaban [Eliquis 5 mg Tablet] 5 mg PO BID #60 tablet Nitrofurantoin Macrocrystal [Macrodantin] 100 mg PO BID #10 capsule Home Medications: Amlodipine Besylate [Norvasc 10 mg Tablet] 10 mg PO DAILY #30 tablet 10/18/17 Aspirin [Aspirin EC] 81 mg PO DAILY #30 tablet. 10/18/17 Carvedilol [Coreg 6.25 mg Tablet] 6.25 mg PO Q12 #60 tablet 10/18/17 Digoxin [Lanoxin] 125 mcg PO DAILY #30 tablet 10/18/17 Furosemide [Lasix 40 mg Tablet] 40 mg PO BID #60 tablet 10/18/17 Gabapentin [Neurontin 300 mg Capsule] 300 mg PO Q6 #90 capsule 10/18/17 Hydralazine HCl [Apresoline 50 mg Tablet] 50 mg PO Q8 #90 tablet 10/18/17 Insulin Detemir [Levemir Flextouch] 50 unit SQ Q12 #5 insuln.pen 10/18/17 Insulin Lispro [Humalog Kwikpen U-100] 1 unit SQ ACHS PRN #5 insuln.pen Isosorbide Mononitrate [Ismo 20 mg Tablet] 20 mg PO Q8 #90 tablet 10/18/17 Pravastatin Sodium [Pravachol] 20 mg PO QHS #30 tablet 10/18/17 Sacubitril/Valsartan [Entresto 97 mg/103 mg Tablet] 1 tab PO Q12 #60 tablet Apixaban [Eliquis 5 mg Tablet] 5 mg PO BID #60 tablet 11/16/17 Nitrofurantoin Macrocrystal [Macrodantin] 100 mg PO BID #10 capsule 11/16/17 History of Present Illness History of Present Illness: JAVIER BURGER is a 62 year old female. This is a 62-year-old female patient of Dr. Moffett with the very noncompliance with the medications several hospital admissions due to the conditions with the history of the coronary artery disease status post bypass surgery in 2011 history of the congestive heart failure history of the hypertension's and history of the type 2 diabetes mellitus with morbid obesity and multiple comorbidity including history of former smoker quit 8 months back came to the emergency department with the last 3 days was complaint with chest pressure and shortness of the breath Patients claimed that she feels like something heaviness in the chest and patients received the 1 dose of nitro which pretty much relieved the pain after 5 minutes Emergency department initial workup is all stable Saw the patient's patient is alert awake and oriented denied any chest pain denied any shortness of the breath patient is currently on room air Patient also history of the gallstones and currently follow with the [facility] for that Discussed with her Dr. Harding patient's party plan dealer and suggest order the VQ scan and the repeat the cardiac enzyme and admit if is all negative for further evaluations Hospital Course Hospital Course: Patient was admitted for chest pain described as heaviness in her chest. Her serial cardiac enzymes were negative. she was seen in consultation by Dr. Mayer, party plan dealer. Her Lexiscan stress test was unrevealing for any acute pathology. she will be managed with medication optimization for cardiac and comorbid conditions. Due to her differential lower extremities swelling and complain of associated pain, she had lower extremities venous Doppler evaluation that revealed acute DVT in right superficial femoral and bilateral popliteal veins. She has been on Eliquis for DVT management. After discussion with Dr Mayer, she will be discharge home on Eliquis and Ecotrin with instruction to discontinue Plavix usage. she grew ESBL E. Coli from her urine culture. she remain aerie with discontinuation of Lantigua cath. She will be discharge home on Macrobid 100 mg po bid x 5 days. She had IV Invanz but refused re-establishment of IV access to continue therapy. She will follow up with Dr Mayer and myself as instructed upon discharge. She will resume [facility] service for wound care and follow up at [facility] as scheduled. Physical Exam Vital Signs: Temp Pulse Resp BP Pulse Ox 97.9 F 70 16 137/64 H 98 11/16/17 15:14 11/16/17 15:14 11/16/17 15:14 11/16/17 15:14 11/16/17 15:14 Pulse Oximeter Nocturnal Start: 11/11/17 19: 36 Freq: CONTINUOUS Status: Complete Document 11/12/17 00:20 LDA (Rec: 11/12/17 00:22 LDA [email or web address]) Nocturnal Pulse Oximetry Equipment Usage Equipment in Use Oxygen Delivery Method (includes room Nasal Cannula air) O2 Sat by Pulse Oximetry (92-100) 100 Continuous SpO2 Machine # [id number] Intake & Output 11/15/17 11/16/17 11/17/17 06:59 06:59 06:59 Intake Total 1382 1076 128 Output Total 1100 700 Balance 282 376 128 Weight 106.3 kg 106.5 kg Physical Exam: General appearance: PRESENT: no acute distress, morbidly obese Head exam: PRESENT: atraumatic, normocephalic Eye exam: PRESENT: conjunctiva pink, EOMI, PERRLA. ABSENT: scleral icterus Mouth exam: PRESENT: moist Neck exam: PRESENT: full ROM. ABSENT: carotid bruit, JVD, lymphadenopathy, thyromegaly Respiratory exam: PRESENT: clear to auscultation jerrica, decreased breath sounds - at lung bases Cardiovascular exam: PRESENT: RRR. ABSENT: diastolic murmur, rubs, systolic murmur Vascular exam: ABSENT: pallor GI/Abdominal exam: PRESENT: normal bowel sounds, soft. ABSENT: distended, guarding, mass, organomegaly, rebound, tenderness Gentrourinary exam: PRESENT: indwelling catheter Extremities exam: PRESENT: pedal edema - improving Musculoskeletal exam: PRESENT: deformity - left foot hind region chronic wound Neurological exam: PRESENT: alert, awake, oriented to person, oriented to place , oriented to time, oriented to situation, CN II-XII grossly intact. ABSENT: motor sensory deficit Psychiatric exam: PRESENT: appropriate affect, normal mood. ABSENT: homicidal ideation, suicidal ideation Skin exam: PRESENT: dry, warm, other - chronic diabetic and vascular ulcer on left foot Results Laboratory Results: 11/15/17 11:17 11/15/17 11:17 11/10/17 11/10/17 11/10/17 18:15 18:15 21:00 Creatine Kinase 33 31 CK-MB (CK-2) 0.45 Troponin I < 0.012 NT-Pro-B Natriuret Pep 11/10/17 11/11/17 11/11/17 21:00 02:59 02:59 Creatine Kinase 28 L CK-MB (CK-2) 0.39 0.22 Troponin I < 0.012 < 0.012 NT-Pro-B Natriuret Pep 11/11/17 11/12/17 11/13/17 02:59 05:44 04:26 Creatine Kinase CK-MB (CK-2) Troponin I NT-Pro-B Natriuret Pep 7200 H 3460 H 2030 H Impressions: Chest X-Ray 11/10/17 09:01 IMPRESSION: Pulmonary vascular prominence without alveolar or interstitial edema. Stable cardiomegaly, post CABG Venous Doppler Study 11/10/17 09:32 IMPRESSION: Acute DVT in the right superficial femoral vein and bilateral popliteal veins. Lung Scan-VQ NM 11/10/17 12:03 IMPRESSION: NORMAL VENTILATION-PERFUSION LUNG SCAN. NEGATIVE FOR PULMONARY EMBOLI. Abdomen Ultrasound 11/10/17 12:25 IMPRESSION: Multiple gallstones. Mildly increased gallbladder wall thickness, 3.6 mm. No pericholecystic fluid. Qualifiers - * PATIENT BEING DISCHARGED WITH ANY OF THE FOLLOWING DIAGNOSIS: Heart Failure, VTE (PE or DVT) VTE patient discharged on overlapping Therapy?: No Reason(s) for not prescribing Overlap Therapy:: Not indicated - Discharge on Eliquis therapy UT Pt being discharged on Aspirin therapy?: Yes UT Pt being discharged on Statins?: Yes UT Pt discharged ACEI/ARBS?: Yes HF Pt being discharged on ACEI for LVEF less than 40%?: No Reason(s) for not prescribing ACEI:: Medical Contraindication - ARB component of Entresto HF Pt being discharged on ARBS for LVEF less than 40%?: Yes HF Pt with Afib discharged with Warfarin?: No Reason(s) for not prescribing Warfarin:: Not indicated HF Pt discharged on evidence-based Beta Bee:: Yes Plan Discharge Plan: Discharge home today. Follow as instructed upon discharge with Dr. Mayer and myself.
--- NOTE | 2017-11-16 21:16 | PROGRESS NOTE E ---
Progress Note NAME: JAVIER BURGER : 1955 AGE: 62Y DATE: 11/16/2017 ROOM: 324 SUBJECTIVE: Note that the patient denies any chest pain or discomfort. There is no PND or orthopnea. There is no leg edema. There are no anginal symptoms. There are no palpitations. The patient remains in sinus rhythm. There is no dizziness, presyncope or syncope. There are no TIA or CVA symptoms. There is no bleeding on her current anticoagulation medication. Earlier this morning, the patient did undergo an IV Lexiscan Cardiolite stress test, which was uneventful. OBJECTIVE: GENERAL: On examination, the patient is morbidly obese, but well-groomed and in no acute distress. VITAL SIGNS: She is afebrile, with a temperature of 97.9 degrees Fahrenheit. Pulse is 70 beats per minute, blood pressure 137/64, respirations 16 per minute. O2 sats are 98% on 1.5 liters nasal cannula. HEENT: Head is atraumatic, normocephalic. Eyes: Pupils are equal, round, regular, reactive to light and accommodation. External ocular movements are normal. There is no conjunctival pallor. There is no scleral icterus. ENT is negative. NECK: Supple. There is no JVD. Carotids are equal. There is no bruit. There is no lymphadenopathy. There is no goiter. Trachea is central. LUNGS: There is diminished air entry with prolonged expiration, without any rhonchi, rales or wheezing. On palpation, there is hyperresonance throughout. There are no rales or CHF. HEART: S1, S2 are heard. S1 is of normal intensity. There is no S3 gallop. There is no S4 gallop. There is a systolic murmur at the left sternal border, at the apex. There is no rub. ABDOMEN: Soft, obese, nontender. There is no hepatosplenomegaly. Bowel sounds are well-heard. There are no tender areas or masses. There is no rebound, guarding or rigidity. EXTREMITIES: Femorals are diminished. Leg pulses are difficult to palpate. There are no femoral bruits. There are dressings on both nonhealing ulcers of the feet. There is no pedal edema. There is no DVT or cellulitis. There is no calf tenderness. There is no cyanosis or clubbing. WELFARE MANAGER: The patient is awake, alert, oriented x3, with no focal deficit. PSYCHIATRIC: The patient's judgment and insight are intact. Her affect is normal. DIAGNOSTICS: The patient's blood sugar is 72 and 99. Not that the patient's Lexiscan Cardiolite stress test showed no reversible ischemia. There is myocardial infarction as well as scar by scintigraphy involving the LV apex and apicolateral wall. This has been discussed with the patient. IMPRESSION: 1. NON-CARDIAC CHEST PAIN. No recurrence of this. 2. CHRONIC DIASTOLIC HEART FAILURE, AT PRESENT COMPENSATED. 3. HYPERTENSION, WELL-CONTROLLED. Continue current antihypertensive medication. 4. CORONARY ARTERY DISEASE. Prior history of myocardial infarction and history of coronary artery bypass graft surgery. No anginal symptoms. Stress test positive for OR, but negative for ischemia. 5. NONCOMPLIANCE. The importance of compliance with diet and medication has been stressed to the patient again. 6. CHRONIC OBSTRUCTIVE PULMONARY DISEASE. At present, stable. No acute exacerbation. Continue bronchodilator inhalers. 7. PERIPHERAL ARTERIAL DISEASE. Patient with nonhealing ulcers of both feet/heels. 8. OBSTRUCTIVE SLEEP APNEA. Continue CPAP and continue the patient's Symbicort and Advair Diskus. 9. DIABETES MELLITUS WITH PERIPHERAL ARTERIAL DISEASE, STABLE. RECOMMENDATIONS: A stress test has been discussed with the patient. The medication has been reviewed. In view of the patient being on Eliquis, will stop the patient's Plavix and continue aspirin. Continue her other current medications, including Coreg and Entresto. This has been discussed with the patient and also discussed the patient's medications recommended by me. Also discussed the results of the stress test with the attending physician, Dr. Moffett. Forty minutes spent on the patient, with more than 50% of the time spent on direct patient care. Medical decision making was of moderate complexity. At least 10 minutes were spent on explaining the stress test to the patient. The patient will be discharged. Will sign off. Will follow the patient at the office if she so desires to follow up with me as an outpatient. The patient does have my cell phone number. She will call me if there should be any problems. Thank you for allowing me to participate in the care of this patient. DICTATING PHYSICIAN: RICHIE LARIOS M.D. [id number] [id number] ID: [id number] JOB#: [id number] ACCT: [id number] cc: >
--- NOTE | 2017-11-16 21:55 | DRAGON STRESS TEST REPORT ---
Intravenous Lexiscan Cardiolite stress test using single photon emmision computerized tomography. Date of procedure: 11/16/2017. Ordering Provider: Dr. Charlette Harding. Patient's status: In Patient. ATTENDING PHYSICIAN: Dr. Moffett. Indication: Chest pain in a patient with history of coronary artery disease, history of of ND and coronary artery bypass graft surgery. Coronary risk factors: Age, diabetes mellitus, hypertension, and hyperlipidemia. Resting EKG: Sinus Rhythm. PVC. No acute changes. Stress EKG: No changes of ischemia. The patient no chest pain or discomfort, and there were no arrhythmias seen. Reason for termination: Protocol. Conclusions: Normal EKG and hemodynamic response to IV Lexiscan. Nuclear data: At rest the patient was 14.67 given millicuries of technetium 99m sestamibi injected intravenously. As per protocol rest non gated SPECT images were obtained. Subsequently the patient was given intravenous Lexiscan at a dose of 0.4 mg in 5 mL intravenously, followed by flush with normal saline. Subsequently the stress dose of 43.3 millicuries of technetium 99m sestamibi was injected intravenously. As per protocol stress gated images were obtained. Nuclear interpretation: Review of images showed that there is a small area of perfusion defect in both the rest and stress images involving the left left ventricular apex, and a small area of apical lateral wall, in both the rest and stress images. These areas of decreased motion contraction and thickening the gated study. The rest of the segments of the myocardium had normal perfusion at rest, and normal perfusion post stress with IV Lexiscan. The rest of the segments of the myocardium had normal motion, contraction, and thickening by gated study. T. I D. ratio was normal at 1.0 2. Computer read rest, and stress left ventricular ejection fraction were 46 %, and 46 %, respectively. Visually both the stress and rest ejection fractions were normal, and greater than 55%. Conclusion: 1. There is no scintigraphic evidence of Lexiscan induced myocardial ischemia. 2. There is scintigraphic evidence of myocardial infarction/scar involving a small area of the left ventricular apex, and apical lateral wall Recommendations: 1. Aggressive treatment of coronary artery disease 2.. Aggressive risk factor modification, and treating the underlying co- morbidities. 3. Correlate left ventricular ejection fraction obtained from the stress test with the left ventricular ejection fraction on the patient's echo. JUDY
== END 2017-11-16 17:38 | disposition home health service (06) | DRG 292 ==
LOC: ER 08:46 → EH 12:28 → OBSVTOIN 12:28 → 4N 13:11 → EH 13:29 → 3W 15:10
PROVIDERS: ADMIT Internal Medicine Geriatric Medicine; ATTEND Internal Medicine Geriatric Medicine
PROC: 3E0F73Z Introduction of Anti-inflammatory into Respiratory Tract, Via Natural or Artificial Opening (ICD-10-PCS; principal; 2017-11-10)
DX: I11.0 Hypertensive heart disease with heart failure (principal); N39.0 Urinary tract infection, site not specified; Z68.41 Body mass index [BMI] 40.0-44.9, adult; I82.433 Acute embolism and thrombosis of popliteal vein, bilateral; I82.411 Acute embolism and thrombosis of right femoral vein; L97.429 Non-pressure chronic ulcer of left heel and midfoot with unspecified severity; I50.43 Acute on chronic combined systolic (congestive) and diastolic (congestive) heart failure; B96.20 Unspecified Escherichia coli [E. coli] as the cause of diseases classified elsewhere; E11.621 Type 2 diabetes mellitus with foot ulcer; E78.00 Pure hypercholesterolemia, unspecified; F11.90 Opioid use, unspecified, uncomplicated; J44.9 Chronic obstructive pulmonary disease, unspecified; E66.01 Morbid (severe) obesity due to excess calories; K80.80 Other cholelithiasis without obstruction; E11.51 Type 2 diabetes mellitus with diabetic peripheral angiopathy without gangrene; D63.8 Anemia in other chronic diseases classified elsewhere; G89.4 Chronic pain syndrome; I25.118 Atherosclerotic heart disease of native coronary artery with other forms of angina pectoris; R19.7 Diarrhea, unspecified; E83.42 Hypomagnesemia; G47.33 Obstructive sleep apnea (adult) (pediatric); I25.2 Old myocardial infarction; Z95.1 Presence of aortocoronary bypass graft; Z79.4 Long term (current) use of insulin; Z79.899 Other long term (current) drug therapy; Z91.14 Patient's other noncompliance with medication regimen; Z87.891 Personal history of nicotine dependence; Z79.82 Long term (current) use of aspirin; Z88.6 Allergy status to analgesic agent; Z91.11 Patient's noncompliance with dietary regimen; Z82.49 Family history of ischemic heart disease and other diseases of the circulatory system; Z86.73 Personal history of transient ischemic attack (TIA), and cerebral infarction without residual deficits
CPT/HCPCS: 36415; 71045; 76705; 78452; 78582; 80048; 80053; 81001; 82272; 82550; 82553; 82962; 83605; 83735; 83880; 84100; 84484; 85025; 85610; 85730; 87086; 87088; 87186; 87324; 93005; 93010; 93017; 93970; 93976; 94060; 94727; 94729; 94762; 99285; A9500; A9540; A9567; G8978-GP; G8979-GP; J0696; J1335; J1650; J1815; J1940; J2785; J3490; J7620; J8499; Q9969

== ENCOUNTER 2017-12-03 08:46 | Emergency (ER) | payer MEDICARE, MEDICAID ==
[2017-12-03] MEDS ORDERED: ASPIRIN 81 MG TABLET, CHEWABLE PO ONE (08:52)
--- NOTE | 2017-12-03 08:53 | ER Document Report ---
ED Cardiac - General Stated Complaint: CHEST PAIN Time Seen by Provider: 12/03/17 08:51 Mode of Arrival: Medic Information source: Patient Notes: 62-year-old diabetic, left heel ulcer, CHF, hypertensive, anemia, hyperlipidemic , coronary artery disease with quadruple bypass, angina, is complaining of chest pain that feels like someone sitting on her chest and Sunday which is the first episode of chest pain that she has had since she was discharged from the hospital on November 16. She was here from 7 10/06/2012 for exacerbation of CHF. Nitroglycerin relieves a little bit but does not make it completely go away. PCP is Dr. Anderson and she was admitted TRAVEL OUTSIDE OF THE [place] IN LAST 30 DAYS: No - Related Data Allergies/Adverse Reactions: pregabalin [From Lyrica] Allergy (Verified 12/03/17 09:08) Swelling of hands and face Past Medical History - General Information source: Patient - Social History Smoking Status: Never Smoker Frequency of alcohol use: None Drug Abuse: None Lives with: Family - son Family History: Reviewed & Not Pertinent, CAD, Hyperlipidemia, Hypertension - Past Medical History Cardiac Medical History: Reports: Hx Congestive Heart Failure, Hx Coronary Artery Disease, Hx Heart Attack, Hx Hypercholesterolemia, Hx Hypertension, Hx Peripheral Vascular Disease Pulmonary Medical History: Reports: Hx Bronchitis Neurological Medical History: Reports: Hx Cerebrovascular Accident - 2007 Endocrine Medical History: Reports: Hx Diabetes Mellitus Type 2 GI Medical History: Reports: Hx Diverticulitis - diverticulosis Past Surgical History: Reports: Hx Coronary Artery Bypass Graft - July 31 2011, Hx Tonsillectomy, Hx Vascular Surgery - Immunizations Immunizations up to date: No Hx Diphtheria, Pertussis, Tetanus Vaccination: Yes Hx Pneumococcal Vaccination: 02/04/11 Review of Systems - Review of Systems Constitutional: No symptoms reported EENT: No symptoms reported Cardiovascular: Chest pain Respiratory: No symptoms reported Gastrointestinal: No symptoms reported Genitourinary: No symptoms reported Female Genitourinary: No symptoms reported Musculoskeletal: No symptoms reported Skin: No symptoms reported Hematologic/Lymphatic: No symptoms reported Neurological/Psychological: No symptoms reported Physical Exam - Vital signs Vitals: Resp BP 14 167/64 H 12/03/17 08:54 12/03/17 08:54 Interpretation: Normal - General General appearance: Appears well, Alert - HEENT Head: Normocephalic, Atraumatic Eyes: Normal Pupils: PERRL Pharynx: Normal Neck: Supple. No: Lymphadenopathy - Respiratory Respiratory status: No respiratory distress Chest status: Nontender Breath sounds: Normal Chest palpation: Normal - Cardiovascular Rhythm: Regular Heart sounds: Normal auscultation Murmur: No - Abdominal Inspection: Normal Distension: No distension Bowel sounds: Normal Tenderness: Nontender Organomegaly: No organomegaly - Back Back: Normal, Nontender - Extremities General upper extremity: Normal inspection, Nontender, Normal color, Normal ROM , Normal temperature General lower extremity: Normal inspection, Nontender, Normal color, Normal ROM , Normal temperature, Normal weight bearing. No: Mark's sign - Neurological Neuro grossly intact: Yes Cognition: Normal Orientation: AAOx4 Amber Coma Scale Eye Opening: Spontaneous Amber Coma Scale Verbal: Oriented Amber Coma Scale Motor: Obeys Commands [place] Coma Scale Total: 15 Speech: Normal Motor strength normal: LUE, RUE, LLE, RLE Sensory: Normal - Psychological Associated symptoms: Normal affect, Normal mood - Skin Skin Temperature: Warm Skin Moisture: Dry Skin Color: Normal Notes: Left heel chronic ulcer without pus there is granulation tissue, she has appt with wound care clinic on the 8th Course - Re-evaluation Re-evalutation: 12/03/17 10:[address] Michele Moreno who states that the patient does have ACS and angina. I will try more nitroglycerin he states of the second troponin and no acute changes on the EKG she can be sent home and he will see her in the office tomorrow. The second troponin is scheduled for 11:52 which is 3 hours after the first 1. I will also get another EKG at the same time. Patient is still having chest pain at this time. No acute change on the EKG, multifocal PVC 12/03/17 13:05 Nitroglycerin has been given right now by the nurse, second troponin needs to be redrawn due to hemolyzation 12/03/17 13:25 Chest pain from 5/ 5 to 3/5 with 3 ntg SL 12/03/17 14:32 Second troponin is negative as well, consult Dr. Luis and he is okay sending the patient home as instructed by dr. anderson especially since she had a negative for ishcemia on Lexiscan stress test on November 16 EF 46%, samll area of left ventricular apex and apical lateral wall scar. Instructed the pt and she understands that she needs to see dr. anderson . tomorrow. 2nd EKG NSR with multi focal PVC, no acute change. qt 412, qtc 445 12/03/17 14:45 Schedule an appointment with Dr. Michele Moreno for her at 9 AM tomorrow and she understands this. - Vital Signs Vital signs: Temp Pulse Resp BP Pulse Ox 97.7 F 11 L 153/74 H 99 12/03/17 09:01 12/03/17 13:05 12/03/17 13:05 12/03/17 13:05 - Laboratory Result Diagrams: 12/03/17 09:00 12/03/17 09:00 Laboratory results interpreted by me: 12/03/17 12/03/17 12/03/17 09:00 09:00 09:00 RBC 3.13 L Hgb 9.1 L Hct 27.8 L RDW 18.2 H Sodium 147.4 H Chloride 112 H BUN 53 H Est GFR ( Amer) 58 L Est GFR (Non-Af Amer) 48 L Glucose 172 H Direct Bilirubin 0.9 H AST 44 H Alkaline Phosphatase 599 H NT-Pro-B Natriuret Pep 4700 H Total Protein 8.9 H Urine Protein Urine Blood Urine Urobilinogen 12/03/17 09:38 RBC Hgb Hct RDW Sodium Chloride BUN Est GFR ( Amer) Est GFR (Non-Af Amer) Glucose Direct Bilirubin AST Alkaline Phosphatase NT-Pro-B Natriuret Pep Total Protein Urine Protein 30 H Urine Blood SMALL H Urine Urobilinogen 4.0 H Discharge - Discharge Clinical Impression: Chest pain, Left heel foot ulcer, Coronary artery disease, Hyperlipidemia, Diabetes, PVD (peripheral vascular disease), Renal insufficiency Hypertension Qualifiers: Hypertension type: essential hypertension Qualified Code(s): I10 - Essential ( primary) hypertension Diabetes Qualifiers: Diabetes mellitus type: type 2 Diabetes mellitus long term care pharmacist insulin use: with long term care pharmacist use Diabetes mellitus complication status: with unspecified complications Qualified Code(s): E11.8 - Type 2 diabetes mellitus with unspecified complications Congestive heart failure (CHF) Qualifiers: Heart failure type: unspecified Heart failure chronicity: chronic Qualified Code(s): I50.9 - Heart failure, unspecified Condition: Stable Disposition: HOME, SELF-CARE Instructions: Chest Pain of Unclear Cause ([facility]) Additional Instructions: see dr anderson tomorrow at 9:00 am (i made the appt for you) to er if worse take all your home medications as prescribed Referrals: STEPHAN ANDERSON MD [Primary Care Provider] - Follow up tomorrow
--- NOTE | 2017-12-03 09:25 | RADIOLOGY REPORT (SQ) ---
EXAM DESCRIPTION: CHEST SINGLE VIEW COMPLETED DATE/TIME: 12/03/2017 9:10 am REASON FOR STUDY: chest pain COMPARISON: 11/10/2017 NUMBER OF VIEWS: One view. TECHNIQUE: Single frontal radiographic image of the chest acquired. LIMITATIONS: None. FINDINGS: LUNGS AND PLEURA: Chronic interstitial changes. No acute findings. MEDIASTINUM AND HEART: Stable heart size and mediastinal structures. BONY STRUCTURES: No acute findings. HARDWARE: Sternotomy. OTHER: No other significant finding. IMPRESSION: No acute findings. TECHNICAL DOCUMENTATION: JOB ID: [id number] Reading location - IP/workstation name: [email or web address]
[2017-12-03 09:29] LABS: ABSOLUTE BASOPHILS # (AUTO) 0.1 10^3/uL (0.0-0.2); ABSOLUTE EOSINOPHILS # (AUTO) 0.2 10^3/uL (0.0-0.6); ABSOLUTE LYMPHOCYTES (AUTO) 1.4 10^3/uL (0.5-4.7); ABSOLUTE MONOCYTES (AUTO) 0.8 10^3/uL (0.1-1.4); ABSOLUTE NEUT (AUTO) 5.1 10^3/uL (1.7-8.2); BASOPHILS % (AUTO) 0.7 % (0-2); EOSINOPHILS % (AUTO) 2.3 % (0-6); HEMATOCRIT 27.8 % (36.0-47.0); HEMOGLOBIN 9.1 g/dL (12.0-15.5); MEAN CORPUSCULAR HEMOGLOBIN 29.1 pg (27.0-33.4); MEAN CORPUSCULAR HGB CONC 32.8 g/dL (32.0-36.0); MEAN CORPUSCULAR VOLUME 89 fl (80-97); MONOCYTES % (AUTO) 10.2 % (3-13); PLATELET COUNT 276 10^3/uL (150-450); RED BLOOD COUNT 3.13 10^6/uL (3.72-5.28); RED CELL DISTRIBUTION WIDTH 18.2 % (11.5-14.0); SEGMENTED NEUTROPHILS % (AUTO) 67.8 % (42-78); TOTAL CELLS COUNTED % (AUTO) 100 %; WHITE BLOOD COUNT 7.6 10^3/uL (4.0-10.5)
[2017-12-03 09:54] LABS: ALANINE AMINOTRANSFERASE 32 U/L (9-52); ALBUMIN 3.8 g/dL (3.5-5.0); ALKALINE PHOSPHATASE 599 U/L (38-126); ANION GAP 11 (5-19); ASPARTATE AMINO TRANSFERASE 44 U/L (14-36); BILIRUBIN,DIRECT 0.9 mg/dL (0.0-0.4); BILIRUBIN,TOTAL 1.1 mg/dL (0.2-1.3); BLOOD UREA NITROGEN 53 mg/dL (7-20); CALCIUM 9.4 mg/dL (8.4-10.2); CARBON DIOXIDE 24 mmol/L (22-30); CHLORIDE 112 mmol/L (98-107); CREATINE KINASE 45 U/L (30-135); GLUCOSE 172 mg/dL (75-110); SODIUM 147.4 mmol/L (137-145); TOTAL PROTEIN 8.9 g/dL (6.3-8.2)
[2017-12-03 10:02] LABS: CREATINE KINASE MB 0.85 ng/mL (<4.55)
[2017-12-03 10:04] LABS: TROPONIN I < 0.012 ng/mL
[2017-12-03] MEDS ORDERED: NITROGLYCERIN 0.4 MG/TAB 25 TAB/BOTTLE SL PRN (10:27)
[2017-12-03 10:37] LABS: APPEARANCE,URINE SLIGHTLY-CLOUDY; BILIRUBIN,URINE NEGATIVE (NEGATIVE); COLOR,URINE YELLOW; GLUCOSE, URINE NEGATIVE (NEGATIVE); KETONES,URINE NEGATIVE (NEGATIVE); LEUKOCYTE ESTERASE,URINE NEGATIVE (NEGATIVE); NITRITE,URINE NEGATIVE (NEGATIVE); PROTEIN,URINE 30 mg/dL (NEGATIVE); URINE SPECIFIC GRAVITY 1.012
[2017-12-03 14:56] VITALS: BP 162/80
--- NOTE | 2017-12-03 17:54 | EKG REPORT ---
SEVERITY:- ABNORMAL ECG - SINUS RHYTHM MULTIFORM VENTRICULAR PREMATURE COMPLEXES BORDERLINE LEFT AXIS DEVIATION BORDERLINE R WAVE PROGRESSION, ANTERIOR LEADS NONSPECIFIC T ABNORMALITIES, LATERAL LEADS : Confirmed by: Irma Hitchcock 03-Dec-2017 17:52:49
--- NOTE | 2017-12-03 17:54 | EKG REPORT ---
SEVERITY:- ABNORMAL ECG - SINUS RHYTHM MULTIFORM VENTRICULAR PREMATURE COMPLEXES BORDERLINE T WAVE ABNORMALITIES : Confirmed by: Irma Hitchcock 03-Dec-2017 17:52:33
== END 2017-12-03 15:22 | disposition home or self-care (01) ==
LOC: ER 08:46
DX: I25.119 Atherosclerotic heart disease of native coronary artery with unspecified angina pectoris (principal); I11.0 Hypertensive heart disease with heart failure; I50.9 Heart failure, unspecified; E11.51 Type 2 diabetes mellitus with diabetic peripheral angiopathy without gangrene; E11.621 Type 2 diabetes mellitus with foot ulcer; L97.429 Non-pressure chronic ulcer of left heel and midfoot with unspecified severity; E78.5 Hyperlipidemia, unspecified; N28.9 Disorder of kidney and ureter, unspecified; I49.3 Ventricular premature depolarization; I25.2 Old myocardial infarction; Z95.1 Presence of aortocoronary bypass graft; Z88.5 Allergy status to narcotic agent; Z82.49 Family history of ischemic heart disease and other diseases of the circulatory system
CPT/HCPCS: 36415; 71045; 80053; 81001; 82550; 82553; 83880; 84484; 85025; 93005; 93010; 99285

== ENCOUNTER 2017-12-09 17:15 | Inpatient (IN) | payer MEDICARE, MEDICAID ==
--- NOTE | 2017-12-09 17:37 | ER Document Report ---
ED Medical Screen (RME) - General Chief Complaint: Shortness Of Breath Stated Complaint: WEAKNESS TRAVEL OUTSIDE OF THE [place] IN LAST 30 DAYS: No - HPI Notes: 12/09/17 17:36 Patient is a 62-year-old female with a history of diabetes, hypertension, previous MS with quadruple bypass, CHF who presents to the ED complaining of increased swelling, chest tightness, and shortness of breath over the last 2 days. She also would like her chronic ulcer looked at that has been managed by wound clinic over the last year. Patient has been admitted for CHF in October and November. Pt states her symptoms are consistent with previous CHF exacerbations. Patient states she is otherwise eating and drinking without difficulties. She is continuing to urinate normally and have normal bowel movements. She is currently on Lasix 40 mg 3x daily. She has no other concerns or complaints at this time. Denies any headache, fever, URI, sore throat, palpitations, syncope , cough, wheeze, abdominal pain, nausea/vomiting/diarrhea, urinary retention, dysuria, hematuria, or rash. I have treated and performed a rapid initial assessment of this patient. A comprehensive ED assessment and evaluation of the patient, analysis of test results and completion of medical decision making process will be conducted by additional ED providers. PHYSICAL EXAMINATION: GENERAL: Well-appearing, well-nourished and in no acute distress. A&Ox4. Answers questions appropriately. obese LUNGS: Dec breath sounds b/l. HEART: Regular rate and rhythm without murmurs, rubs, gallops. Extremities: 2-3+ pitting edema b/l. NEUROLOGICAL: Normal speech, normal gait. PSYCH: Normal mood, normal affect. - Related Data Allergies/Adverse Reactions: pregabalin [From Lyrica] Allergy (Verified 12/03/17 09:08) Swelling of hands and face Past Medical History - Past Medical History Cardiac Medical History: Reports: Hx Congestive Heart Failure, Hx Coronary Artery Disease, Hx Heart Attack, Hx Hypercholesterolemia, Hx Hypertension, Hx Peripheral Vascular Disease Denies: Hx Atrial Fibrillation Pulmonary Medical History: Reports: Hx Bronchitis Denies: Hx Asthma, Hx COPD, Hx Pneumonia, Hx Tuberculosis Neurological Medical History: Reports: Hx Cerebrovascular Accident - 2007. Denies: Hx Seizures Endocrine Medical History: Reports: Hx Diabetes Mellitus Type 1, Hx Diabetes Mellitus Type 2 Renal/ Medical History: Denies: Hx End Stage Renal Disease, Hx Peritoneal Dialysis GI Medical History: Reports: Hx Diverticulitis - diverticulosis. Denies: Hx Gastroesophageal Reflux Disease, Hx Hiatal Hernia Musculoskeltal Medical History: Denies Hx Arthritis Skin Medical History: Denies Hx MRSA Psychiatric Medical History: Denies: Hx Bipolar Disorder, Hx Depression Past Surgical History: Reports: Hx Cardiac Surgery - quad bypass, Hx Coronary Artery Bypass Graft - July 31 2011, Hx Tonsillectomy, Hx Vascular Surgery. Denies: Hx Appendectomy, Hx Cardiac Catheterization, Hx Section, Hx Cholecystectomy, Hx Hysterectomy, Hx Mastectomy, Hx Tubal Ligation - Immunizations Immunizations up to date: No Hx Diphtheria, Pertussis, Tetanus Vaccination: Yes History of Influenza Vaccine for 02/2017 - 07/2017 Season: Yes Influenza Administration Date for 02/2017 - 07/2017 Season: 01/05/17 Doctor's Discharge - Discharge Referrals: STEPHAN TAFOYA MD [Primary Care Provider] - Follow up as needed
[2017-12-09 17:59] LABS: ABSOLUTE EOSINOPHILS # (AUTO) 0.1 10^3/uL (0.0-0.6); ABSOLUTE LYMPHOCYTES (AUTO) 1.2 10^3/uL (0.5-4.7); ABSOLUTE MONOCYTES (AUTO) 1.1 10^3/uL (0.1-1.4); ABSOLUTE NEUT (AUTO) 5.5 10^3/uL (1.7-8.2); BASOPHILS % (AUTO) 0.5 % (0-2); EOSINOPHILS % (AUTO) 0.9 % (0-6); HEMATOCRIT 28.3 % (36.0-47.0); HEMOGLOBIN 9.2 g/dL (12.0-15.5); LYMPHOCYTES % (AUTO) 15.3 % (13-45); MEAN CORPUSCULAR HEMOGLOBIN 28.7 pg (27.0-33.4); MEAN CORPUSCULAR HGB CONC 32.3 g/dL (32.0-36.0); MEAN CORPUSCULAR VOLUME 89 fl (80-97); MONOCYTES % (AUTO) 13.6 % (3-13); PLATELET COUNT 252 10^3/uL (150-450); RED BLOOD COUNT 3.19 10^6/uL (3.72-5.28); RED CELL DISTRIBUTION WIDTH 18.4 % (11.5-14.0); SEGMENTED NEUTROPHILS % (AUTO) 69.7 % (42-78); TOTAL CELLS COUNTED % (AUTO) 100 %; WHITE BLOOD COUNT 7.9 10^3/uL (4.0-10.5)
[2017-12-09 18:35] LABS: NT PRO BNP 6170 pg/mL (5-900)
[2017-12-09 18:38] LABS: AMORPHOUS SEDIMENT,URINE TRACE /HPF; APPEARANCE,URINE CLOUDY; BILIRUBIN,URINE NEGATIVE (NEGATIVE); COLOR,URINE AMBER; GLUCOSE, URINE NEGATIVE (NEGATIVE); KETONES,URINE NEGATIVE (NEGATIVE); LEUKOCYTE ESTERASE,URINE SMALL (NEGATIVE); NITRITE,URINE NEGATIVE (NEGATIVE); PROTEIN,URINE 30 mg/dL (NEGATIVE); URINE SPECIFIC GRAVITY 1.011
[2017-12-09 18:39] LABS: ALANINE AMINOTRANSFERASE 23 U/L (9-52); ALBUMIN 3.6 g/dL (3.5-5.0); ALKALINE PHOSPHATASE 454 U/L (38-126); ANION GAP 12 (5-19); ASPARTATE AMINO TRANSFERASE 33 U/L (14-36); BILIRUBIN,DIRECT 0.9 mg/dL (0.0-0.4); BILIRUBIN,TOTAL 1.2 mg/dL (0.2-1.3); BLOOD UREA NITROGEN 30 mg/dL (7-20); CALCIUM 9.1 mg/dL (8.4-10.2); CARBON DIOXIDE 24 mmol/L (22-30); CHLORIDE 108 mmol/L (98-107); CREATINE KINASE 36 U/L (30-135); GLUCOSE 173 mg/dL (75-110); POTASSIUM 4.9 mmol/L (3.6-5.0); SODIUM 143.5 mmol/L (137-145); TOTAL PROTEIN 8.5 g/dL (6.3-8.2)
[2017-12-09 18:40] LABS: TROPONIN I < 0.012 ng/mL
[2017-12-09] MEDS ORDERED: FUROSEMIDE INJ/PF 40 MG/4 ML SDV IV ONE (19:15)
[2017-12-09] MEDS ORDERED: CEFTRIAXONE 1 GM/D5W RTU 1 GM/50 ML RTUPB IV ONE (19:15)
--- NOTE | 2017-12-09 19:15 | ER Document Report ---
ED Respiratory Problem - General TRAVEL OUTSIDE OF THE [place] IN LAST 30 DAYS: No <LUCRECIA SINCLAIR - Last Filed: 12/09/17 20:46> <CHRIS NGUYEN - Last Filed: 12/09/17 21:03> - General Chief Complaint: Shortness Of Breath Stated Complaint: WEAKNESS Time Seen by Provider: 12/09/17 18:21 Notes: Patient is a 62-year-old female that presents to the emergency department today with complaints of "fluid build up". Patient has history of congestive heart failure. Patient's Lasix dosage was increased 3 days ago because she gained weight. Patient also has a chronic left foot wound that is bandaged. Patient has been admitted several times in the past for congestive heart failure. (LUCRECIA SINCLAIR) - Related Data Allergies/Adverse Reactions: pregabalin [From Lyrica] Allergy (Verified 12/03/17 09:08) Swelling of hands and face Past Medical History - Social History Smoking Status: Never Smoker Chew tobacco use (# tins/day): No Drug Abuse: None Family History: Reviewed & Not Pertinent, CAD, Hyperlipidemia, Hypertension Patient has suicidal ideation: No Patient has homicidal ideation: No - Past Medical History Cardiac Medical History: Reports: Hx Congestive Heart Failure, Hx Coronary Artery Disease, Hx Heart Attack, Hx Hypercholesterolemia, Hx Hypertension, Hx Peripheral Vascular Disease Denies: Hx Atrial Fibrillation Pulmonary Medical History: Reports: Hx Bronchitis Denies: Hx Asthma, Hx COPD, Hx Pneumonia, Hx Tuberculosis Neurological Medical History: Reports: Hx Cerebrovascular Accident - 2007. Denies: Hx Seizures Endocrine Medical History: Reports: Hx Diabetes Mellitus Type 1, Hx Diabetes Mellitus Type 2 Renal/ Medical History: Denies: Hx End Stage Renal Disease, Hx Peritoneal Dialysis GI Medical History: Reports: Hx Diverticulitis - diverticulosis. Denies: Hx Gastroesophageal Reflux Disease, Hx Hiatal Hernia Musculoskeletal Medical History: Denies Hx Arthritis Skin Medical History: Denies Hx MRSA Psychiatric Medical History: Denies: Hx Bipolar Disorder, Hx Depression Past Surgical History: Reports: Hx Cardiac Surgery - quad bypass, Hx Coronary Artery Bypass Graft - July 31 2011, Hx Tonsillectomy, Hx Vascular Surgery. Denies: Hx Appendectomy, Hx Cardiac Catheterization, Hx Section, Hx Cholecystectomy, Hx Hysterectomy, Hx Mastectomy, Hx Tubal Ligation - Immunizations Immunizations up to date: No Hx Diphtheria, Pertussis, Tetanus Vaccination: Yes Hx Pneumococcal Vaccination: 02/04/11 <LUCRECIA SINCLAIR - Last Filed: 12/09/17 20:46> Physical Exam - Vital signs Interpretation: Hypertensive, Tachypneic - General General appearance: Alert In distress: Mild - Respiratory Respiratory status: Respiratory distress - Only with movement Chest status: Nontender Breath sounds: Rales - at bases bilaterally - Cardiovascular Rhythm: Regular - Abdominal Inspection: Normal, Striae, Obese - Back Back: Normal - Extremities General upper extremity: Normal inspection, Normal ROM General lower extremity: Edema. No: Normal inspection Foot: Other - healing ulcer to L heal. No purulent d/c. Good granulation tissue. - Neurological Neuro grossly intact: Yes Orientation: AAOx4 Amber Coma Scale Eye Opening: Spontaneous Amber Coma Scale Verbal: Oriented Amber Coma Scale Motor: Obeys Commands [place] Coma Scale Total: 15 - Psychological Associated symptoms: Normal affect, Normal mood - Skin Skin Temperature: Warm Skin Moisture: Dry Skin Color: Normal <CHRIS NGUYEN - Last Filed: 12/09/17 21:03> - Vital signs Vitals: BP 170/68 H 12/09/17 17:22 Course - Laboratory Result Diagrams: 12/09/17 17:45 12/09/17 17:45 <LUCRECIA SINCLAIR - Last Filed: 12/09/17 20:46> - Laboratory Result Diagrams: 12/09/17 17:45 12/09/17 17:45 - Diagnostic Test Radiology reviewed: Image reviewed, Reports reviewed <CHRIS NGUYEN - Last Filed: 12/09/17 21:03> - Re-evaluation Re-evalutation: 12/09/17 19:17 Dr. Barajas accepts patient for admission 12/09/17 19:30 Patient agreeable to admission (LUCRECIA SINCLAIR) Patient is a 62-year-old female who comes in complaining of difficulty breathing especially when she is trying to move. Patient is dyspneic with movement. She has been started on an increased dose of Lasix since Sunday. Regardless, patient appears fluid overloaded. BNP is elevated. She is also complaining of weakness and on catheterized urine has a lot of bacteria. She will be treated with Rocephin for presumed UTI. She has been given IV Lasix and will be kept for observation. She is Dr. Moffett is patient and is accepted to Dr. Barajas. Patient is agreeable to this plan. Denies any chest pain. (CHRIS NGUYEN) - Vital Signs Vital signs: Temp Pulse Resp BP Pulse Ox 99.8 F 19 181/83 H 96 12/09/17 17:31 12/09/17 20:01 12/09/17 20:01 12/09/17 20:01 - Laboratory Laboratory results interpreted by me: 12/09/17 12/09/17 12/09/17 17:45 17:45 17:45 RBC 3.19 L Hgb 9.2 L Hct 28.3 L RDW 18.4 H Monocytes % 13.6 H PT Chloride 108 H BUN 30 H Est GFR (Non-Af Amer) 51 L Glucose 173 H Direct Bilirubin 0.9 H Alkaline Phosphatase 454 H NT-Pro-B Natriuret Pep 6170 H Total Protein 8.5 H Urine Protein Urine Blood Urine Urobilinogen Ur Leukocyte Esterase 12/09/17 12/09/17 17:45 18:04 RBC Hgb Hct RDW Monocytes % PT 16.1 H Chloride BUN Est GFR (Non-Af Amer) Glucose Direct Bilirubin Alkaline Phosphatase NT-Pro-B Natriuret Pep Total Protein Urine Protein 30 H Urine Blood LARGE H Urine Urobilinogen 4.0 H Ur Leukocyte Esterase SMALL H Critical Care Note - Critical Care Note Total time excluding time spent on procedures (mins): 35 - Evaluation and management of congestive heart failure with acute exacerbation, multiple re- evaluations, coordination of admission, counseling of patient <CHRIS NGUYEN - Last Filed: 12/09/17 21:03> Discharge <LUCRECIA SINCLAIR - Last Filed: 12/09/17 20:46> - Discharge Admitting Provider: [facility] Unit Admitted: [facility] <CHRIS NGUYEN - Last Filed: 12/09/17 21:03> - Discharge Clinical Impression: UTI (urinary tract infection) Qualifiers: Urinary tract infection type: site unspecified Hematuria presence: without hematuria Qualified Code(s): N39.0 - Urinary tract infection, site not specified Acute exacerbation of CHF (congestive heart failure) Qualifiers: Heart failure type: unspecified Qualified Code(s): I50.9 - Heart failure, unspecified Condition: Stable Disposition: ADMITTED INPATIENT Scribe Attestation: 12/09/17 21:03 I personally performed the services described in the documentation, reviewed and edited the documentation which was dictated to the scribe in my presence, and it accurately records my words and actions. (CHRIS NGUYEN
[2017-12-09] MEDS ORDERED: FENTANYL CITRATE INJ/PF 100 MCG/2 ML AMPUL IV ONE (19:17)
[2017-12-09] MEDS ORDERED: CEFTRIAXONE INJ 1000 MG VIAL ONE (19:22)
--- NOTE | 2017-12-09 19:23 | RADIOLOGY REPORT (SQ) ---
EXAM DESCRIPTION: CHEST SINGLE VIEW COMPLETED DATE/TIME: 12/09/2017 6:54 pm REASON FOR STUDY: shortness of breath COMPARISON: 12/03/2017 EXAM PARAMETERS: NUMBER OF VIEWS: One view. TECHNIQUE: Single frontal radiographic view of the chest acquired. RADIATION DOSE: NA LIMITATIONS: None. FINDINGS: LUNGS AND PLEURA: No acute opacities, masses or pneumothorax. No pleural effusion. MEDIASTINUM AND HILAR STRUCTURES: Stable. HEART AND VASCULAR STRUCTURES: Similar cardiomegaly and pulmonary vasculature. BONES: No acute findings. HARDWARE: Stable. OTHER: No other significant finding. IMPRESSION: NO ACUTE RADIOGRAPHIC FINDING IN THE CHEST. TECHNICAL DOCUMENTATION: JOB ID: [id number] [employer]- All Rights Reserved Reading location - IP/workstation name: [email or web address]
[2017-12-09 20:08] LABS: INTERNATIONAL RATION (INR) 1.22; PROTHROMBIN TIME 16.1 SEC (11.4-15.4)
[2017-12-09 21:39] LABS: FREE T4 (FREE THYROXINE) 2.26 ng/dL (0.78-2.19)
[2017-12-09 21:53] LABS: THYROID STIMULATING HORMONE 1.6 uIU/mL (0.47-4.68)
--- NOTE | 2017-12-09 23:44 | EKG REPORT ---
SEVERITY:- ABNORMAL ECG - SINUS RHYTHM PROBABLE LEFT ATRIAL ABNORMALITY BORDERLINE LEFT AXIS DEVIATION CONSIDER ANTERIOR INFARCT NONSPECIFIC T ABNORMALITIES, LATERAL LEADS : Confirmed by: Irma Hitchcock 09-Dec-2017 23:43:27
[2017-12-10] MEDS: ACETAMINOPHEN 325 MG TABLET PO PRN ×2 (06:12→13:52)
[2017-12-10 06:38] LABS: ABSOLUTE EOSINOPHILS # (AUTO) 0.1 10^3/uL (0.0-0.6); ABSOLUTE LYMPHOCYTES (AUTO) 1.3 10^3/uL (0.5-4.7); ABSOLUTE MONOCYTES (AUTO) 0.9 10^3/uL (0.1-1.4); ABSOLUTE NEUT (AUTO) 4.8 10^3/uL (1.7-8.2); BASOPHILS % (AUTO) 0.3 % (0-2); EOSINOPHILS % (AUTO) 0.8 % (0-6); HEMATOCRIT 27.7 % (36.0-47.0); HEMOGLOBIN 8.9 g/dL (12.0-15.5); LYMPHOCYTES % (AUTO) 18.3 % (13-45); MEAN CORPUSCULAR HEMOGLOBIN 28.4 pg (27.0-33.4); MEAN CORPUSCULAR HGB CONC 32.2 g/dL (32.0-36.0); MEAN CORPUSCULAR VOLUME 88 fl (80-97); MONOCYTES % (AUTO) 12.8 % (3-13); PLATELET COUNT 242 10^3/uL (150-450); RED BLOOD COUNT 3.13 10^6/uL (3.72-5.28); RED CELL DISTRIBUTION WIDTH 18.3 % (11.5-14.0); SEGMENTED NEUTROPHILS % (AUTO) 67.8 % (42-78); TOTAL CELLS COUNTED % (AUTO) 100 %; WHITE BLOOD COUNT 7.1 10^3/uL (4.0-10.5)
[2017-12-10] MEDS ORDERED: DEXTROSE 40% GEL 15 GM TUBE X 2 PO PRN (07:35)
[2017-12-10] MEDS ORDERED: GLUCAGON,HUMAN RECOMB 1 MG INJ IM PRN (07:35)
[2017-12-10] MEDS ORDERED: DEXTROSE 50%-WATER SYRINGE 12.5 GM/25 ML DOSE IV PRN (07:35)
[2017-12-10] MEDS ORDERED: DEXTROSE 50%-WATER SYRINGE 25 GM/50 ML DOSE IV PRN (07:35)
[2017-12-10] MEDS ORDERED: DEXTROSE 40% GEL 15 GM TUBE PO PRN (07:35)
[2017-12-10 07:40] LABS: ALANINE AMINOTRANSFERASE 23 U/L (9-52); ALBUMIN 3.3 g/dL (3.5-5.0); ALKALINE PHOSPHATASE 458 U/L (38-126); ASPARTATE AMINO TRANSFERASE 25 U/L (14-36); BILIRUBIN,DIRECT 1.1 mg/dL (0.0-0.4); BILIRUBIN,TOTAL 1.4 mg/dL (0.2-1.3); CHOLESTEROL 155.89 mg/dL (0-200); CREATINE KINASE 29 U/L (30-135); TOTAL PROTEIN 7.8 g/dL (6.3-8.2)
[2017-12-10 07:51] LABS: DIRECT LDL 94 mg/dL (<100)
[2017-12-10 08:12] LABS: TRIGLYCERIDES 98 mg/dL (<150); VLDL CHOLESTEROL 19.6 mg/dL (10-31)
[2017-12-10] MEDS ORDERED: FUROSEMIDE INJ/PF 40 MG/4 ML SDV IV SCH (10:00)
[2017-12-10] MEDS ORDERED: ENOXAPARIN SODIUM INJ 40 MG/0.4 ML DISP.SYRIN SUBCUT SCH (10:00)
[2017-12-10] MEDS ORDERED: CEFTRIAXONE 1 GM/D5W RTU 1 GM/50 ML RTUPB IV SCH (10:00)
[2017-12-10] MEDS: OXYCODONE-ACETAMINOPHEN 5-325 MG TABLET PO PRN ×3 (12:38→22:46)
[2017-12-10] MEDS: HYDRALAZINE HCL 50 MG TABLET PO SCH ×2 (13:03→22:47)
[2017-12-10] MEDS: ISOSORBIDE MONONITRATE 20 MG TABLET PO SCH ×2 (13:04→22:47)
[2017-12-10] MEDS: CEFTRIAXONE SODIUM 1,000 MG in NORMAL SALINE 50 ML IV SCH (17:52)
[2017-12-10] MEDS: INSULIN LISPRO 100 UNIT/ML 3 ML VIAL SUBCUT PRN (18:08)
[2017-12-10] MEDS ORDERED: NITROGLYCERIN 0.4 MG/TAB 25 TAB/BOTTLE SL PRN (19:24)
--- NOTE | 2017-12-10 19:24 | PDOC H&P ---
History of Present Illness Admission Date/PCP: 12/09/17 19:34 STEPHAN OSUNKOYA Patient complains of: Weakness, Shortness of breath History of Present Illness: JAVIER BURGER is a 62 year old female known to my practice and recurrent admission to this facility for chronic combined CHF. She presented with complain of generalized weakness and shortness of breath with minimal exertion. Patient's Lasix was recently increase to 40 mg p.o tid due to increase weight gain and edema to lower extremities. She denied any chest pain. She reported inability to get her recently prescribed Ranexa for chronic angina. She denied any palpitation. She claimed compliance with all other current medications including increase in her Lasix. Her dietary restriction and fluid intake compliance remain in question. Patient reported pain across her ;lower abdominal region over last 3-4 days. She denied fever but claimed intermittent chills. There is nausea but no vomiting. She denied any dysuria, hematuria or flank pain. Her evaluation in the ED revealed elevated NT-Pro BNP and abnormal urinalysis suggestive of UTI. Her morbidities include combined congestive heart failure, Coronary Artery Disease s/p quad bypass surgery, old [place], Hypertension, Hyperlipidemia, Peripheral Vascular Disease, Stroke without significant deficit , Diabetes Mellitus Type 2, Diverticulosis, and osteoarthritis with chronic pain syndrome. She was treated with IV Lasix and IV Rocephin. She was advised hospitalization for further evaluation and management. Past Medical History Cardiac Medical History: Reports: Congestive Heart Failure, Coronary Artery Disease, Myocardial Infarction, Hyperlipidema, Hypertension, Peripheral Vascular Disease Denies: Atrial Fibrillation Pulmonary Medical History: Reports: Bronchitis Denies: Asthma, Chronic Obstructive Pulmonary Disease (COPD), Pneumonia, Tuberculosis Neurological Medical History: Denies: Seizures Endocrine Medical History: Reports: Diabetes Mellitus Type 1, Diabetes Mellitus Type 2 Renal/ Medical History: Denies: End Stage Renal Disease GI Medical History: Reports: Diverticulitis - diverticulosis Denies: Gastroesophageal Reflux Disease, Hiatal Hernia Musculoskeltal Medical History: Denies: Arthritis Psychiatric Medical History: Denies: Bipolar Disorder, Depression Hematology: Denies: Anemia, Hemophilia, Sickle Cell Disease Past Surgical History Past Surgical History: Reports: Coronary Artery Bypass Graft - July 31 2011, Tonsillectomy, Vascular Surgery Denies: Amputation, Appendectomy, Cardiac Catheterization, Section, Cholecystectomy, Hysterectomy, Mastectomy, Tubal Ligation Social History Smoking Status: Never Smoker Frequency of Alcohol Use: None Hx Recreational Drug Use: No Drugs: None Hx Prescription Drug Abuse: No Family History Family History: Reviewed & Not Pertinent, CAD, Hyperlipidemia, Hypertension Parental Family History Reviewed: Yes Children Family History Reviewed: Yes Sibling(s) Family History Reviewed.: Yes Medication/Allergy Home Medications: Amlodipine Besylate [Norvasc 10 mg Tablet] 10 mg PO DAILY 12/10/17 Apixaban [Eliquis 2.5 mg Tablet] 2.5 mg PO BID 12/10/17 Aspirin [Aspirin EC] 81 mg PO DAILY 12/10/17 Carvedilol [Coreg 6.25 mg Tablet] 6.25 mg PO Q12 12/10/17 Digoxin [Lanoxin] 125 mcg PO DAILY 12/10/17 Furosemide [Lasix 40 mg Tablet] 40 mg PO TID@0800,1400,2200 12/10/17 Gabapentin [Neurontin 300 mg Capsule] 300 mg PO Q6 12/10/17 Gentamicin Sulfate [Garamycin 0.1% Cream 15 gm] 1 applic TP DAILY 12/10/17 Hydralazine HCl [Apresoline 50 mg Tablet] 50 mg PO Q8 12/10/17 Insulin Detemir [Levemir Flextouch] 50 unit SQ Q12 12/10/17 Insulin Lispro [Humalog Insulin 100 Unit/1 ml 3 ml Vial] 0 unit SUBCUT .SLIDING SCALE 12/10/17 Isosorbide Mononitrate [Ismo 20 Mg Tablet] 20 mg PO Q8 12/10/17 Nitroglycerin [Nitrostat 0.4 mg (1/150 Gr) Tabs 25/Bottle] 1 tab SL Q5MP PRN 10/22 Oxycodone HCl [Oxycodone HCl 10 MG Tablet] 10 mg PO Q6HP PRN 12/10/17 Pravastatin Sodium [Pravachol] 20 mg PO QHS 12/10/17 Sacubitril/Valsartan [Entresto 97 mg/103 mg Tablet] 1 tab PO Q12 12/10/17 Allergies/Adverse Reactions: pregabalin [From Lyrica] Allergy (Verified 12/10/17 10:24) Swelling of hands and face Review of Systems Constitutional: PRESENT: chills, fatigue, weakness, weight gain. ABSENT: as per HPI, anorexia, fever(s), headache(s), night sweats, weight loss, other Eyes: ABSENT: visual disturbances Ears: ABSENT: hearing changes Nose, Mouth, and Throat: ABSENT: as per HPI, headache(s), mouth pain, sore throat, vertigo, other Cardiovascular: PRESENT: dyspnea on exertion, edema. ABSENT: as per HPI, chest pain, orthropnea, palpitations, other Respiratory: ABSENT: cough, hemoptysis Gastrointestinal: PRESENT: abdominal pain, nausea. ABSENT: as per HPI, bloating , coffee ground emesis, constipation, diarrhea, dysphagia, heartburn, hematemesis, hematochezia, melena, vomiting, other Genitourinary: ABSENT: dysuria, hematuria Musculoskeletal: PRESENT: joint swelling - related to her leg swelling Neurological: PRESENT: weakness - generalized. ABSENT: as per HPI, abnormal gait, abnormal movements, abnormal speech, confusion, convulsions, dizziness, focal weakness, frequent falls, lack of coordination, memory loss, numbness, paresthesias, restless legs, syncope, tingling, tremor(s), vertigo, other Psychiatric: ABSENT: anxiety, depression, homidical ideation, suicidal ideation Endocrine: ABSENT: cold intolerance, heat intolerance, polydipsia, polyuria Hematologic/Lymphatic: ABSENT: easy bleeding, easy bruising, lymphadenopathy Allergic/Immunologic: ABSENT: seasonal rhinorrhea Physical Exam Vital Signs: Temp Pulse Resp BP Pulse Ox 98.4 F 73 16 173/70 H 96 12/10/17 08:46 12/10/17 08:46 12/10/17 08:46 12/10/17 08:46 12/10/17 08:46 Intake & Output 12/09/17 12/10/17 12/11/17 06:59 06:59 06:59 Intake Total 120 Output Total 2900 Balance -2780 Weight 114.3 kg General appearance: PRESENT: no acute distress, morbidly obese Head exam: PRESENT: atraumatic, normocephalic Eye exam: PRESENT: conjunctiva pink, EOMI, PERRLA. ABSENT: scleral icterus Ear exam: PRESENT: normal external ear exam Mouth exam: PRESENT: moist, tongue midline Teeth exam: PRESENT: poor dentation Neck exam: PRESENT: full ROM. ABSENT: carotid bruit, JVD, lymphadenopathy, thyromegaly Respiratory exam: PRESENT: clear to auscultation jerrica, decreased breath sounds Cardiovascular exam: PRESENT: RRR. ABSENT: diastolic murmur, rubs, systolic murmur Pulses: PRESENT: +1 pedal pulses bilateral Vascular exam: PRESENT: normal capillary refill. ABSENT: pallor GI/Abdominal exam: PRESENT: normal bowel sounds, soft, tenderness - RLQ, LLQ and suprapubic region. ABSENT: guarding, mass, rebound Rectal exam: PRESENT: deferred Gentrourinary exam: PRESENT: indwelling catheter Extremities exam: PRESENT: other - left heel chronic ulcer with clean dressing. ABSENT: pedal edema Musculoskeletal exam: PRESENT: deformity - from chronic left heel ulcer Neurological exam: PRESENT: alert, awake, oriented to person, oriented to place , oriented to time, oriented to situation, CN II-XII grossly intact. ABSENT: motor sensory deficit Psychiatric exam: PRESENT: appropriate affect, normal mood. ABSENT: homicidal ideation, suicidal ideation Skin exam: PRESENT: dry, warm Results Laboratory Results: 12/10/17 06:08 12/09/17 12/10/17 12/10/17 20:41 06:08 06:08 WBC 7.1 RBC 3.13 L Hgb 8.9 L Hct 27.7 L MCV 88 MCH 28.4 MCHC 32.2 RDW 18.3 H Plt Count 242 Seg Neutrophils % 67.8 Lymphocytes % 18.3 Monocytes % 12.8 Eosinophils % 0.8 Basophils % 0.3 Absolute Neutrophils 4.8 Absolute Lymphocytes 1.3 Absolute Monocytes 0.9 Absolute Eosinophils 0.1 Absolute Basophils 0.0 Total Bilirubin 1.4 H AST 25 ALT 23 Alkaline Phosphatase 458 H Total Protein 7.8 Albumin 3.3 L Triglycerides 98 Cholesterol 155.89 LDL Cholesterol Direct 94 VLDL Cholesterol 19.6 HDL Cholesterol 33 L TSH 1.60 Free T4 2.26 H 12/10/17 12/10/17 12/10/17 00:03 00:03 06:08 Creatine Kinase 30 26 L Troponin I < 0.012 12/10/17 12/10/17 06:08 06:08 Creatine Kinase 29 L Troponin I < 0.012 Impressions: Chest X-Ray 12/09/17 17:28 IMPRESSION: NO ACUTE RADIOGRAPHIC FINDING IN THE CHEST. Assessment & Plan - Diagnosis (1) Acute on chronic combined systolic and diastolic CHF, NYHA class 3 Is this a current diagnosis for this admission?: Yes Plan: See admitting attending physician orders. (2) UTI (urinary tract infection) Qualifiers: Urinary tract infection type: site unspecified Hematuria presence: without hematuria Qualified Code(s): N39.0 - Urinary tract infection, site not specified Is this a current diagnosis for this admission?: Yes Plan: See admitting attending physician orders. (3) Abdominal pain Qualifiers: Abdominal location: lower abdomen, unspecified Qualified Code(s): R10.30 - Lower abdominal pain, unspecified Is this a current diagnosis for this admission?: Yes Plan: See admitting attending physician orders. (4) Diabetes mellitus type 2 in obese Is this a current diagnosis for this admission?: Yes Plan: See admitting attending physician orders. (5) 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 2 diabetes mellitus Qualifiers: Diabetic foot ulcer location: heel Non-pressure ulcer stage: unspecified non-pressure ulcer stage Qualified Code(s): E11.621 - Type 2 diabetes mellitus with foot ulcer; L97.429 - Non-pressure chronic ulcer of left heel and midfoot with unspecified severity; L97.429 - Non-pressure chronic ulcer of left heel and midfoot with unspecified severity; L97.429 - Non-pressure chronic ulcer of left heel and midfoot with unspecified severity; L97.429 - Non- pressure chronic ulcer of left heel and midfoot with unspecified severity Is this a current diagnosis for this admission?: Yes Plan: See admitting attending physician orders. (6) Hypertension Qualifiers: Hypertension type: essential hypertension Qualified Code(s): I10 - Essential (primary) hypertension Is this a current diagnosis for this admission?: Yes Plan: See admitting attending physician orders. (7) Hyperlipidemia Qualifiers: Hyperlipidemia type: unspecified Qualified Code(s): E78.5 - Hyperlipidemia , unspecified Is this a current diagnosis for this admission?: Yes Plan: See admitting attending physician orders. (8) CAD (coronary artery disease) Qualifiers: Coronary Disease-Associated Artery/Lesion type: unspecified vessel or lesion type [place] vs. transplanted heart: [place] heart Associated angina: without angina Qualified Code(s): I25.10 - Atherosclerotic heart disease of [place] coronary artery without angina pectoris Is this a current diagnosis for this admission?: Yes Plan: See admitting attending physician orders. (9) S/P CABG (coronary artery bypass graft) Is this a current diagnosis for this admission?: Yes Plan: See admitting attending physician orders. (10) Chronic stable angina Is this a current diagnosis for this admission?: Yes Plan: See admitting attending physician orders. (11) Open wound of left knee without complication Qualifiers: Encounter type: subsequent encounter Is this a current diagnosis for this admission?: Yes Plan: See admitting attending physician orders. (12) Hx of stroke without residual deficits Is this a current diagnosis for this admission?: Yes Plan: See admitting attending physician orders. (13) Chronic pain syndrome Is this a current diagnosis for this admission?: Yes Plan: See admitting attending physician orders. (14) Chronic use of opiate for therapeutic purpose Is this a current diagnosis for this admission?: Yes Plan: See admitting attending physician orders. - Time Time Spent: 50 to 70 Minutes Medications reviewed and adjusted accordingly: Yes Anticipated discharge: Home with Homehealth Within: Other - Inpatient Certification Based on my medical assessment, after consideration of the patient's comorbidities, presenting symptoms, or acuity I expect that the services needed warrant INPATIENT care.: Yes I certify that my determination is in accordance with my understanding of Medicare's requirements for reasonable and necessary INPATIENT services [42 CFR 412.3e].: Yes Medical Necessity: Need Close Monitoring Due to Risk of Patient Decompensation, Need For IV Fluids, Need For Continuous Telemetry Monitoring, Need for Nebulizer Therapy and Monitoring of Response, Need for Pain Control, Need for IV Antibiotics, Risk of Complication if Not Cared For in Hospital Post Hospital Care: D/C Emergency Dispatcher Documentation - Plan Summary Plan Summary: See admitting attending physician orders.
[2017-12-10] MEDS: CARVEDILOL 6.25 MG TABLET PO SCH (22:46)
[2017-12-10] MEDS: ATORVASTATIN CALCIUM 10 MG TABLET PO SCH (22:46)
[2017-12-10] MEDS: SACUBITRIL/VALSARTAN 97 MG/103 MG TABLET PO SCH (22:47)
[2017-12-10] MEDS: FUROSEMIDE INJ/PF 40 MG/4 ML SDV IV SCH (22:47)
[2017-12-10] MEDS: INSULIN DETEMIR 100 UNIT/ML 3 ML PEN SUBCUT SCH (22:48)
[2017-12-11] MEDS: GABAPENTIN 300 MG CAPSULE PO SCH ×4 (00:30→18:12)
--- NOTE | 2017-12-11 02:01 | RADIOLOGY REPORT (SQ) ---
EXAM DESCRIPTION: CT ABDOMEN PELVIS WITH IV CONTRAST COMPLETED DATE/TME: 12/10/2017 00:00 CLINICAL HISTORY: 62 years Female, Lower quadrants abdominal pain Comparison: None. Technique: IV and oral contrast. Coronal and sagittal reformat. This exam was performed according to our departmental dose-optimization program, which includes automated exposure control, adjustment of the mA and/or kV according to patient size and/or use of iterative reconstruction technique. [facility]: Dose Right [facility]: CareDose [facility]: Dose Right [facility]: Teradose 4D [facility]: byyd LIMITATIONS: None Findings: Sternotomy, atherosclerosis, moderate anasarca pattern, moderate coronary arterial calcification, small left pleural effusion moderate retroperitoneal lymphadenopathy, small ascites, moderate diffuse bowel wall thickening of the sigmoid involves a 12 cm segment, mild nonspecific heterogeneity of the liver. Moderate pancreatic atrophy. Colonic diverticulosis. IUD. Small pericholecystic fluid. Spleen, adrenals, renal system, vasculature, and musculoskeleton appear otherwise unremarkable. IMPRESSION: Moderate sigmoid bowel wall thickening. Moderate retroperitoneal lymphadenopathy. Small ascites. Differential etiologies include infectious, inflammatory, and neoplastic processes.
[2017-12-11] MEDS: OXYCODONE-ACETAMINOPHEN 5-325 MG TABLET PO PRN ×3 (04:02→22:42)
[2017-12-11] MEDS: HYDRALAZINE HCL 50 MG TABLET PO SCH ×3 (06:19→22:43)
[2017-12-11] MEDS: ISOSORBIDE MONONITRATE 20 MG TABLET PO SCH ×3 (06:19→22:42)
[2017-12-11 06:40] LABS: ABSOLUTE BASOPHILS # (AUTO) 0.1 10^3/uL (0.0-0.2); ABSOLUTE EOSINOPHILS # (AUTO) 0.1 10^3/uL (0.0-0.6); ABSOLUTE LYMPHOCYTES (AUTO) 1.4 10^3/uL (0.5-4.7); ABSOLUTE NEUT (AUTO) 6.1 10^3/uL (1.7-8.2); BASOPHILS % (AUTO) 0.6 % (0-2); EOSINOPHILS % (AUTO) 1.5 % (0-6); HEMATOCRIT 26.5 % (36.0-47.0); HEMOGLOBIN 8.8 g/dL (12.0-15.5); LYMPHOCYTES % (AUTO) 16.4 % (13-45); MEAN CORPUSCULAR HEMOGLOBIN 29.1 pg (27.0-33.4); MEAN CORPUSCULAR HGB CONC 33.4 g/dL (32.0-36.0); MEAN CORPUSCULAR VOLUME 87 fl (80-97); MONOCYTES % (AUTO) 11.4 % (3-13); PLATELET COUNT 222 10^3/uL (150-450); RED BLOOD COUNT 3.04 10^6/uL (3.72-5.28); RED CELL DISTRIBUTION WIDTH 18.2 % (11.5-14.0); SEGMENTED NEUTROPHILS % (AUTO) 70.1 % (42-78); TOTAL CELLS COUNTED % (AUTO) 100 %; WHITE BLOOD COUNT 8.7 10^3/uL (4.0-10.5)
[2017-12-11 07:05] LABS: ANION GAP 11 (5-19); BLOOD UREA NITROGEN 21 mg/dL (7-20); CALCIUM 8.9 mg/dL (8.4-10.2); CARBON DIOXIDE 26 mmol/L (22-30); CHLORIDE 106 mmol/L (98-107); GLUCOSE 82 mg/dL (75-110); POTASSIUM 3.9 mmol/L (3.6-5.0); SODIUM 143.3 mmol/L (137-145)
[2017-12-11] MEDS: DIGOXIN 0.125 MG TABLET PO SCH (09:45)
[2017-12-11] MEDS: AMLODIPINE BESYLATE 10 MG TABLET PO SCH (09:45)
[2017-12-11] MEDS: APIXABAN 2.5 MG TABLET PO SCH ×2 (09:46→18:12)
[2017-12-11] MEDS: CARVEDILOL 6.25 MG TABLET PO SCH ×2 (09:46→22:43)
[2017-12-11] MEDS: ASPIRIN 81 MG TABLET, ENT COATED PO SCH (09:46)
[2017-12-11] MEDS: SACUBITRIL/VALSARTAN 97 MG/103 MG TABLET PO SCH ×2 (09:47→22:42)
[2017-12-11] MEDS: GENTAMICIN SULFATE 0.1% CREAM 15 GM TP SCH (09:49)
[2017-12-11] MEDS: INSULIN DETEMIR 100 UNIT/ML 3 ML PEN SUBCUT SCH ×2 (09:50→22:47)
[2017-12-11] MEDS: FUROSEMIDE INJ/PF 40 MG/4 ML SDV IV SCH ×2 (09:51→22:42)
[2017-12-11] MEDS ORDERED: GENTAMICIN SULFATE 0.1% CREAM 15 GM TP SCH (10:00)
[2017-12-11] MEDS: CEFTRIAXONE SODIUM 1,000 MG in NORMAL SALINE 50 ML IV SCH (18:12)
[2017-12-11] MEDS ORDERED: ONDANSETRON 4 MG TAB.RAPDIS PO PRN (18:17)
--- NOTE | 2017-12-11 18:17 | PDOC PROGRESS REPORT ---
Subjective Progress Note for:: 12/11/17 Subjective:: Patient reported some improvement in her abdominal pain. There is associated nausea but no vomiting. Decrease appetite and po intake with episode of hypoglycemia with need for oral resuscitation. No fever or chills. Remain on IV Rocephin therapy. Reason For Visit: HEART FAILURE,UTI Physical Exam Vital Signs: Temp Pulse Resp BP Pulse Ox 97.9 F 63 18 121/50 L 92 12/11/17 15:05 12/11/17 15:05 12/11/17 15:05 12/11/17 15:05 12/11/17 15:05 Intake & Output 12/10/17 12/11/17 12/12/17 06:59 06:59 06:59 Intake Total 702 493 7285 Output Total 2900 3000 1000 Balance -2780 -2150 213 Weight 114.3 kg 108.3 kg 108.3 kg General appearance: PRESENT: no acute distress, morbidly obese Head exam: PRESENT: atraumatic, normocephalic Eye exam: PRESENT: conjunctiva pink, EOMI, PERRLA. ABSENT: scleral icterus Ear exam: PRESENT: normal external ear exam Mouth exam: PRESENT: moist Teeth exam: PRESENT: poor dentation Respiratory exam: PRESENT: clear to auscultation jerrica, decreased breath sounds Cardiovascular exam: PRESENT: RRR. ABSENT: diastolic murmur, rubs, systolic murmur Vascular exam: PRESENT: normal capillary refill. ABSENT: pallor GI/Abdominal exam: PRESENT: normal bowel sounds, soft, tenderness - comparatively better lower quadrants tenderness. ABSENT: distended, guarding, mass, organolmegaly, rebound Rectal exam: PRESENT: deferred Extremities exam: ABSENT: pedal edema Musculoskeletal exam: PRESENT: deformity - left heel chronic ulcer Neurological exam: PRESENT: alert, awake, oriented to person, oriented to place , oriented to time, oriented to situation, CN II-XII grossly intact. ABSENT: motor sensory deficit Psychiatric exam: PRESENT: appropriate affect, normal mood. ABSENT: homicidal ideation, suicidal ideation Skin exam: PRESENT: dry, warm Results Laboratory Results: 12/11/17 06:09 12/11/17 06:09 12/11/17 12/11/17 06:09 06:09 WBC 8.7 RBC 3.04 L Hgb 8.8 L Hct 26.5 L MCV 87 MCH 29.1 MCHC 33.4 RDW 18.2 H Plt Count 222 Seg Neutrophils % 70.1 Lymphocytes % 16.4 Monocytes % 11.4 Eosinophils % 1.5 Basophils % 0.6 Absolute Neutrophils 6.1 Absolute Lymphocytes 1.4 Absolute Monocytes 1.0 Absolute Eosinophils 0.1 Absolute Basophils 0.1 Sodium 143.3 Potassium 3.9 Chloride 106 Carbon Dioxide 26 Anion Gap 11 BUN 21 H Creatinine 0.66 Est GFR ( Amer) > 60 Est GFR (Non-Af Amer) > 60 Glucose 82 Calcium 8.9 12/10/17 12/10/17 12/10/17 00:03 00:03 06:08 Creatine Kinase 30 26 L Troponin I < 0.012 12/10/17 12/10/17 12/10/17 06:08 06:08 11:46 Creatine Kinase 29 L Troponin I < 0.012 < 0.012 Impressions: Chest X-Ray 12/09/17 17:28 IMPRESSION: NO ACUTE RADIOGRAPHIC FINDING IN THE CHEST. Abdomen/Pelvis CT 12/10/17 00:00 IMPRESSION: Moderate sigmoid bowel wall thickening. Moderate retroperitoneal lymphadenopathy. Small ascites. Differential etiologies include infectious, inflammatory, and neoplastic processes. Assessment & Plan - Diagnosis (1) Acute on chronic combined systolic and diastolic CHF, NYHA class 3 Is this a current diagnosis for this admission?: Yes (2) UTI (urinary tract infection) Qualifiers: Urinary tract infection type: site unspecified Hematuria presence: without hematuria Qualified Code(s): N39.0 - Urinary tract infection, site not specified Is this a current diagnosis for this admission?: Yes (3) Abdominal pain Qualifiers: Abdominal location: lower abdomen, unspecified Qualified Code(s): R10.30 - Lower abdominal pain, unspecified Is this a current diagnosis for this admission?: Yes (4) Diabetes mellitus type 2 in obese Is this a current diagnosis for this admission?: Yes (5) 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 2 diabetes mellitus Qualifiers: Diabetic foot ulcer location: heel Non-pressure ulcer stage: unspecified non-pressure ulcer stage Qualified Code(s): E11.621 - Type 2 diabetes mellitus with foot ulcer; L97.429 - Non-pressure chronic ulcer of left heel and midfoot with unspecified severity; L97.429 - Non-pressure chronic ulcer of left heel and midfoot with unspecified severity; L97.429 - Non-pressure chronic ulcer of left heel and midfoot with unspecified severity; L97.429 - Non- pressure chronic ulcer of left heel and midfoot with unspecified severity Is this a current diagnosis for this admission?: Yes (6) Hypertension Qualifiers: Hypertension type: essential hypertension Qualified Code(s): I10 - Essential (primary) hypertension Is this a current diagnosis for this admission?: Yes (7) Hyperlipidemia Qualifiers: Hyperlipidemia type: unspecified Qualified Code(s): E78.5 - Hyperlipidemia , unspecified Is this a current diagnosis for this admission?: Yes (8) CAD (coronary artery disease) Qualifiers: Coronary Disease-Associated Artery/Lesion type: unspecified vessel or lesion type [place] vs. transplanted heart: [place] heart Associated angina: without angina Qualified Code(s): I25.10 - Atherosclerotic heart disease of [place] coronary artery without angina pectoris Is this a current diagnosis for this admission?: Yes (9) S/P CABG (coronary artery bypass graft) Is this a current diagnosis for this admission?: Yes (10) Chronic stable angina Is this a current diagnosis for this admission?: Yes (11) Open wound of left knee without complication Qualifiers: Encounter type: subsequent encounter Is this a current diagnosis for this admission?: Yes (12) Hx of stroke without residual deficits Is this a current diagnosis for this admission?: Yes (13) Chronic pain syndrome Is this a current diagnosis for this admission?: Yes (14) Chronic use of opiate for therapeutic purpose Is this a current diagnosis for this admission?: Yes - Time Time Spent with patient: 25-34 minutes Medications reviewed and adjusted accordingly: Yes Anticipated discharge: Home with Homehealth Within: Other - Inpatient Certification Based on my medical assessment, after consideration of the patient's comorbidities, presenting symptoms, or acuity I expect that the services needed warrant INPATIENT care.: Yes I certify that my determination is in accordance with my understanding of Medicare's requirements for reasonable and necessary INPATIENT services [42 CFR 412.3e].: Yes Medical Necessity: Need Close Monitoring Due to Risk of Patient Decompensation, Need For Continuous Telemetry Monitoring, Need for Nebulizer Therapy and Monitoring of Response, Need for IV Antibiotics, Risk of Complication if Not Cared For in Hospital Post Hospital Care: D/C Client Technical Specialist Documentation - Plan Summary Plan Summary: See attending physician orders.
[2017-12-11 19:30] LABS: ABSOLUTE EOSINOPHILS # (AUTO) 0.2 10^3/uL (0.0-0.6); ABSOLUTE LYMPHOCYTES (AUTO) 1.5 10^3/uL (0.5-4.7); ABSOLUTE MONOCYTES (AUTO) 0.8 10^3/uL (0.1-1.4); ABSOLUTE NEUT (AUTO) 5.6 10^3/uL (1.7-8.2); BASOPHILS % (AUTO) 0.6 % (0-2); EOSINOPHILS % (AUTO) 1.9 % (0-6); HEMATOCRIT 28.3 % (36.0-47.0); HEMOGLOBIN 9.3 g/dL (12.0-15.5); MEAN CORPUSCULAR HEMOGLOBIN 28.6 pg (27.0-33.4); MEAN CORPUSCULAR HGB CONC 32.7 g/dL (32.0-36.0); MEAN CORPUSCULAR VOLUME 88 fl (80-97); MONOCYTES % (AUTO) 9.9 % (3-13); PLATELET COUNT 241 10^3/uL (150-450); RED BLOOD COUNT 3.24 10^6/uL (3.72-5.28); RED CELL DISTRIBUTION WIDTH 18.3 % (11.5-14.0); SEGMENTED NEUTROPHILS % (AUTO) 68.6 % (42-78); TOTAL CELLS COUNTED % (AUTO) 100 %; WHITE BLOOD COUNT 8.1 10^3/uL (4.0-10.5)
[2017-12-11] MEDS: ATORVASTATIN CALCIUM 10 MG TABLET PO SCH (22:43)
[2017-12-12] MEDS: GABAPENTIN 300 MG CAPSULE PO SCH ×5 (00:46→23:13)
[2017-12-12] MEDS: HYDRALAZINE HCL 50 MG TABLET PO SCH ×3 (06:49→23:12)
[2017-12-12] MEDS: ISOSORBIDE MONONITRATE 20 MG TABLET PO SCH ×3 (06:49→23:18)
[2017-12-12] MEDS: OXYCODONE-ACETAMINOPHEN 5-325 MG TABLET PO PRN ×2 (06:49→23:12)
[2017-12-12 07:01] LABS: ANION GAP 10 (5-19); BLOOD UREA NITROGEN 23 mg/dL (7-20); CALCIUM 8.6 mg/dL (8.4-10.2); CARBON DIOXIDE 28 mmol/L (22-30); CHLORIDE 107 mmol/L (98-107); DIGOXIN 0.93 ng/mL (0.8-2.0); GLUCOSE 95 mg/dL (75-110); POTASSIUM 4.1 mmol/L (3.6-5.0); SODIUM 145.1 mmol/L (137-145)
[2017-12-12] MEDS: CARVEDILOL 6.25 MG TABLET PO SCH ×2 (10:49→23:12)
[2017-12-12] MEDS: ASPIRIN 81 MG TABLET, ENT COATED PO SCH (10:49)
[2017-12-12] MEDS: DIGOXIN 0.125 MG TABLET PO SCH (10:49)
[2017-12-12] MEDS: AMLODIPINE BESYLATE 10 MG TABLET PO SCH (10:49)
[2017-12-12] MEDS: APIXABAN 2.5 MG TABLET PO SCH ×2 (10:49→17:16)
[2017-12-12] MEDS: SACUBITRIL/VALSARTAN 97 MG/103 MG TABLET PO SCH ×2 (10:49→23:18)
[2017-12-12] MEDS: FUROSEMIDE INJ/PF 40 MG/4 ML SDV IV SCH ×2 (10:49→23:13)
[2017-12-12] MEDS: GENTAMICIN SULFATE 0.1% CREAM 15 GM TP SCH (10:50)
[2017-12-12] MEDS: INSULIN DETEMIR 100 UNIT/ML 3 ML PEN SUBCUT SCH ×2 (11:09→23:18)
[2017-12-12] MEDS: INSULIN LISPRO 100 UNIT/ML 3 ML VIAL SUBCUT PRN (17:16)
[2017-12-12] MEDS: CEFTRIAXONE SODIUM 1,000 MG in NORMAL SALINE 50 ML IV SCH (17:16)
--- NOTE | 2017-12-12 19:44 | PDOC PROGRESS REPORT ---
Subjective Progress Note for:: 12/12/17 Subjective:: Patient reported some elephant sitting on her chest feeling all day. No definite chest pain. Symptom worse with deep breathing. No nausea or vomiting. Abdominal pain is slightly better. No fever or chills. Reason For Visit: HEART FAILURE,UTI Physical Exam Vital Signs: Temp Pulse Resp BP Pulse Ox 98.2 F 62 16 126/56 H 96 12/12/17 07:37 12/12/17 07:37 12/12/17 07:37 12/12/17 07:37 12/12/17 07:37 Intake & Output 12/11/17 12/12/17 12/13/17 06:59 06:59 06:59 Intake Total 850 1263 Output Total 3000 1200 Balance -2150 63 Weight 108.3 kg 107.1 kg Physical Exam: General appearance: PRESENT: no acute distress, morbidly obese Head exam: PRESENT: atraumatic, normocephalic Eye exam: PRESENT: conjunctiva pink, EOMI, PERRLA. ABSENT: scleral icterus Ear exam: PRESENT: normal external ear exam Mouth exam: PRESENT: moist Teeth exam: PRESENT: poor dentation Respiratory exam: PRESENT: clear to auscultation jerrica, decreased breath sounds Cardiovascular exam: PRESENT: RRR. ABSENT: diastolic murmur, rubs, systolic murmur Vascular exam: PRESENT: normal capillary refill. ABSENT: pallor GI/Abdominal exam: PRESENT: normal bowel sounds, soft, tenderness - comparatively better lower quadrants tenderness. ABSENT: distended, guarding, mass, organomegaly, rebound Rectal exam: PRESENT: deferred Extremities exam: ABSENT: pedal edema Musculoskeletal exam: PRESENT: deformity - left heel chronic ulcer Neurological exam: PRESENT: alert, awake, oriented to person, oriented to place , oriented to time, oriented to situation, CN II-XII grossly intact. ABSENT: motor sensory deficit Psychiatric exam: PRESENT: appropriate affect, normal mood. ABSENT: homicidal ideation, suicidal ideation Skin exam: PRESENT: dry, warm Results Laboratory Results: 12/11/17 19:10 12/12/17 06:13 12/11/17 12/12/17 19:10 06:13 WBC 8.1 RBC 3.24 L Hgb 9.3 L Hct 28.3 L MCV 88 MCH 28.6 MCHC 32.7 RDW 18.3 H Plt Count 241 Seg Neutrophils % 68.6 Lymphocytes % 19.0 Monocytes % 9.9 Eosinophils % 1.9 Basophils % 0.6 Absolute Neutrophils 5.6 Absolute Lymphocytes 1.5 Absolute Monocytes 0.8 Absolute Eosinophils 0.2 Absolute Basophils 0.0 Sodium 145.1 H Potassium 4.1 Chloride 107 Carbon Dioxide 28 Anion Gap 10 BUN 23 H Creatinine 0.87 Est GFR ( Amer) > 60 Est GFR (Non-Af Amer) > 60 Glucose 95 Calcium 8.6 12/10/17 12/10/17 12/10/17 00:03 00:03 06:08 Creatine Kinase 30 26 L Troponin I < 0.012 12/10/17 12/10/17 12/10/17 06:08 06:08 11:46 Creatine Kinase 29 L Troponin I < 0.012 < 0.012 Impressions: Chest X-Ray 12/09/17 17:28 IMPRESSION: NO ACUTE RADIOGRAPHIC FINDING IN THE CHEST. Abdomen/Pelvis CT 12/10/17 00:00 IMPRESSION: Moderate sigmoid bowel wall thickening. Moderate retroperitoneal lymphadenopathy. Small ascites. Differential etiologies include infectious, inflammatory, and neoplastic processes. Assessment & Plan - Diagnosis (1) Acute on chronic combined systolic and diastolic CHF, NYHA class 3 Is this a current diagnosis for this admission?: Yes (2) UTI (urinary tract infection) Qualifiers: Urinary tract infection type: site unspecified Hematuria presence: without hematuria Qualified Code(s): N39.0 - Urinary tract infection, site not specified Is this a current diagnosis for this admission?: Yes (3) Abdominal pain Qualifiers: Abdominal location: lower abdomen, unspecified Qualified Code(s): R10.30 - Lower abdominal pain, unspecified Is this a current diagnosis for this admission?: Yes (4) Diabetes mellitus type 2 in obese Is this a current diagnosis for this admission?: Yes (5) 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 2 diabetes mellitus Qualifiers: Diabetic foot ulcer location: heel Non-pressure ulcer stage: unspecified non-pressure ulcer stage Qualified Code(s): E11.621 - Type 2 diabetes mellitus with foot ulcer; L97.429 - Non-pressure chronic ulcer of left heel and midfoot with unspecified severity; L97.429 - Non-pressure chronic ulcer of left heel and midfoot with unspecified severity; L97.429 - Non-pressure chronic ulcer of left heel and midfoot with unspecified severity; L97.429 - Non- pressure chronic ulcer of left heel and midfoot with unspecified severity Is this a current diagnosis for this admission?: Yes (6) Hypertension Qualifiers: Hypertension type: essential hypertension Qualified Code(s): I10 - Essential (primary) hypertension Is this a current diagnosis for this admission?: Yes (7) Hyperlipidemia Qualifiers: Hyperlipidemia type: unspecified Qualified Code(s): E78.5 - Hyperlipidemia , unspecified Is this a current diagnosis for this admission?: Yes (8) CAD (coronary artery disease) Qualifiers: Coronary Disease-Associated Artery/Lesion type: unspecified vessel or lesion type [place] vs. transplanted heart: [place] heart Associated angina: without angina Qualified Code(s): I25.10 - Atherosclerotic heart disease of [place] coronary artery without angina pectoris Is this a current diagnosis for this admission?: Yes (9) S/P CABG (coronary artery bypass graft) Is this a current diagnosis for this admission?: Yes (10) Chronic stable angina Is this a current diagnosis for this admission?: Yes (11) Open wound of left knee without complication Qualifiers: Encounter type: subsequent encounter Qualified Code(s): S81.002D - Unspecified open wound, left knee, subsequent encounter Is this a current diagnosis for this admission?: Yes (12) Hx of stroke without residual deficits Is this a current diagnosis for this admission?: Yes (13) Chronic pain syndrome Is this a current diagnosis for this admission?: Yes (14) Chronic use of opiate for therapeutic purpose Is this a current diagnosis for this admission?: Yes - Time Time Spent with patient: 25-34 minutes Medications reviewed and adjusted accordingly: Yes Anticipated discharge: Home with Homehealth Within: Other - Inpatient Certification Based on my medical assessment, after consideration of the patient's comorbidities, presenting symptoms, or acuity I expect that the services needed warrant INPATIENT care.: Yes I certify that my determination is in accordance with my understanding of Medicare's requirements for reasonable and necessary INPATIENT services [42 CFR 412.3e].: Yes Medical Necessity: Need Close Monitoring Due to Risk of Patient Decompensation, Need For Continuous Telemetry Monitoring, Need for IV Antibiotics, Risk of Complication if Not Cared For in Hospital Post Hospital Care: D/C Bundle Helper Documentation - Plan Summary Plan Summary: Continue all current medication management. Start on Ranexa 500 g po bid. I reviewed her recent colonoscopy completed on 01/01/2017 at [facility] by Dr Sosa that revealed multiple sigmoid colon diverticulosis , cecal polyp post polypectomy, and large internal hemorrhoid. 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
[2017-12-12] MEDS: RANOLAZINE 500 MG TAB.SR.12H PO SCH (23:12)
[2017-12-12] MEDS: ATORVASTATIN CALCIUM 10 MG TABLET PO SCH (23:13)
[2017-12-13] MEDS: HYDRALAZINE HCL 50 MG TABLET PO SCH ×3 (06:15→22:09)
[2017-12-13] MEDS: ISOSORBIDE MONONITRATE 20 MG TABLET PO SCH ×3 (06:15→22:16)
[2017-12-13] MEDS: GABAPENTIN 300 MG CAPSULE PO SCH ×3 (06:15→17:24)
[2017-12-13] MEDS: CARVEDILOL 6.25 MG TABLET PO SCH ×2 (09:09→22:09)
[2017-12-13] MEDS: ASPIRIN 81 MG TABLET, ENT COATED PO SCH (09:09)
[2017-12-13] MEDS: SACUBITRIL/VALSARTAN 97 MG/103 MG TABLET PO SCH ×2 (09:09→22:15)
[2017-12-13] MEDS: APIXABAN 2.5 MG TABLET PO SCH ×2 (09:09→17:25)
[2017-12-13] MEDS: AMLODIPINE BESYLATE 10 MG TABLET PO SCH (09:09)
[2017-12-13] MEDS: GENTAMICIN SULFATE 0.1% CREAM 15 GM TP SCH (09:10)
[2017-12-13] MEDS: RANOLAZINE 500 MG TAB.SR.12H PO SCH ×2 (09:10→22:10)
[2017-12-13] MEDS: FUROSEMIDE INJ/PF 40 MG/4 ML SDV IV SCH (09:10)
[2017-12-13] MEDS: DIGOXIN 0.125 MG TABLET PO SCH (09:11)
[2017-12-13] MEDS: INSULIN DETEMIR 100 UNIT/ML 3 ML PEN SUBCUT SCH ×2 (09:20→22:33)
--- NOTE | 2017-12-13 17:23 | PDOC PROGRESS REPORT ---
Subjective Progress Note for:: 12/13/17 Subjective:: Patient denied chest pain or difficulty with breathing. No diarrhea, nausea or vomiting. Continue to experience slight lower abdominal pain. No fever or chills. Reason For Visit: HEART FAILURE,UTI Physical Exam Vital Signs: Temp Pulse Resp BP Pulse Ox 97.5 F 58 L 13 106/50 L 96 12/13/17 15:48 12/13/17 15:48 12/13/17 15:48 12/13/17 15:48 12/13/17 15:48 Intake & Output 12/12/17 12/13/17 12/14/17 06:59 06:59 06:59 Intake Total 1263 812 355 Output Total 1200 300 0 Balance 63 512 355 Weight 107.1 kg 108.1 kg Physical Exam: General appearance: PRESENT: no acute distress, morbidly obese Head exam: PRESENT: atraumatic, normocephalic Eye exam: PRESENT: conjunctiva pink, EOMI, PERRLA. ABSENT: scleral icterus Ear exam: PRESENT: normal external ear exam Mouth exam: PRESENT: moist Teeth exam: PRESENT: poor dentation Respiratory exam: PRESENT: clear to auscultation jerrica, decreased breath sounds Cardiovascular exam: PRESENT: RRR. ABSENT: diastolic murmur, rubs, systolic murmur Vascular exam: ABSENT: pallor GI/Abdominal exam: PRESENT: normal bowel sounds, soft, tenderness - comparatively better lower quadrants tenderness. ABSENT: distended, guarding, mass, organomegaly, rebound Extremities exam: ABSENT: pedal edema Musculoskeletal exam: PRESENT: deformity - left heel chronic ulcer Neurological exam: PRESENT: alert, awake, oriented to person, oriented to place , oriented to time, oriented to situation, CN II-XII grossly intact. ABSENT: motor sensory deficit Psychiatric exam: PRESENT: appropriate affect, normal mood. ABSENT: homicidal ideation, suicidal ideation Skin exam: PRESENT: dry, warm Results Laboratory Results: 12/11/17 19:10 12/12/17 06:13 12/10/17 12/10/17 12/10/17 00:03 00:03 06:08 Creatine Kinase 30 26 L Troponin I < 0.012 12/10/17 12/10/17 12/10/17 06:08 06:08 11:46 Creatine Kinase 29 L Troponin I < 0.012 < 0.012 Impressions: Chest X-Ray 12/09/17 17:28 IMPRESSION: NO ACUTE RADIOGRAPHIC FINDING IN THE CHEST. Abdomen/Pelvis CT 12/10/17 00:00 IMPRESSION: Moderate sigmoid bowel wall thickening. Moderate retroperitoneal lymphadenopathy. Small ascites. Differential etiologies include infectious, inflammatory, and neoplastic processes. Assessment & Plan - Diagnosis (1) Acute on chronic combined systolic and diastolic CHF, NYHA class 3 Is this a current diagnosis for this admission?: Yes (2) UTI (urinary tract infection) Qualifiers: Urinary tract infection type: site unspecified Hematuria presence: without hematuria Qualified Code(s): N39.0 - Urinary tract infection, site not specified Is this a current diagnosis for this admission?: Yes (3) Abdominal pain Qualifiers: Abdominal location: lower abdomen, unspecified Qualified Code(s): R10.30 - Lower abdominal pain, unspecified Is this a current diagnosis for this admission?: Yes (4) Diabetes mellitus type 2 in obese Is this a current diagnosis for this admission?: Yes (5) 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 2 diabetes mellitus Qualifiers: Diabetic foot ulcer location: heel Non-pressure ulcer stage: unspecified non-pressure ulcer stage Qualified Code(s): E11.621 - Type 2 diabetes mellitus with foot ulcer; L97.429 - Non-pressure chronic ulcer of left heel and midfoot with unspecified severity; L97.429 - Non-pressure chronic ulcer of left heel and midfoot with unspecified severity; L97.429 - Non-pressure chronic ulcer of left heel and midfoot with unspecified severity; L97.429 - Non- pressure chronic ulcer of left heel and midfoot with unspecified severity Is this a current diagnosis for this admission?: Yes (6) Hypertension Qualifiers: Hypertension type: essential hypertension Qualified Code(s): I10 - Essential (primary) hypertension Is this a current diagnosis for this admission?: Yes (7) Hyperlipidemia Qualifiers: Hyperlipidemia type: unspecified Qualified Code(s): E78.5 - Hyperlipidemia , unspecified Is this a current diagnosis for this admission?: Yes (8) CAD (coronary artery disease) Qualifiers: Coronary Disease-Associated Artery/Lesion type: unspecified vessel or lesion type [place] vs. transplanted heart: [place] heart Associated angina: without angina Qualified Code(s): I25.10 - Atherosclerotic heart disease of [place] coronary artery without angina pectoris Is this a current diagnosis for this admission?: Yes (9) S/P CABG (coronary artery bypass graft) Is this a current diagnosis for this admission?: Yes (10) Chronic stable angina Is this a current diagnosis for this admission?: Yes (11) Open wound of left knee without complication Qualifiers: Encounter type: subsequent encounter Qualified Code(s): S81.002D - Unspecified open wound, left knee, subsequent encounter Is this a current diagnosis for this admission?: Yes (12) Hx of stroke without residual deficits Is this a current diagnosis for this admission?: Yes (13) Chronic pain syndrome Is this a current diagnosis for this admission?: Yes (14) Chronic use of opiate for therapeutic purpose Is this a current diagnosis for this admission?: Yes - Time Time Spent with patient: 25-34 minutes Medications reviewed and adjusted accordingly: Yes Anticipated discharge: Home with Homehealth Within: Other - Inpatient Certification Based on my medical assessment, after consideration of the patient's comorbidities, presenting symptoms, or acuity I expect that the services needed warrant INPATIENT care.: Yes I certify that my determination is in accordance with my understanding of Medicare's requirements for reasonable and necessary INPATIENT services [42 CFR 412.3e].: Yes Medical Necessity: Need Close Monitoring Due to Risk of Patient Decompensation, Need For Continuous Telemetry Monitoring, Need for IV Antibiotics, Risk of Complication if Not Cared For in Hospital Post Hospital Care: D/C Sock Lining Stitcher Documentation - Plan Summary Plan Summary: See attending physician orders. D/C IV Lasix. Resume Lasix 40 mg p.o bid. Maintain fluid restrictions. Follow up on GI consultation request.
[2017-12-13] MEDS: CEFTRIAXONE SODIUM 1,000 MG in NORMAL SALINE 50 ML IV SCH (17:24)
[2017-12-13] MEDS: FUROSEMIDE 40 MG TABLET PO SCH (18:35)
--- NOTE | 2017-12-13 21:08 | PDOC CONSULTATION ---
Consultation Consult Date: 12/13/17 History of Present Illness Admission Date/PCP: 12/09/17 19:34 STEPHAN TAFOYA History of Present Illness: JAVIER BURGER is a 62 year old femalePatient was admitted on 12/09/2017 with shortness of breath and abdominal pain. She has been having pain for about 1-2 days prior to being admitted. The pain is constant and associated with with no associated bowel changes, nausea, or vomiting. She had a CAT scan on 12/10/2017 that showed a 12 cm segment of bowel wall thickening in the sigmoid with small ascites and moderate retroperitoneal lymphadenopathy. She has a history of atherosclerosis with coronary artery disease, hypertension, diabetes, CVA, and peripheral vascular disease. She had a colonoscopy about a year ago that showed diverticulosis. Past Medical History Cardiac Medical History: Reports: Congestive Heart Failure, Coronary Artery Disease, Myocardial Infarction, Hyperlipidema, Hypertension, Peripheral Vascular Disease Denies: Atrial Fibrillation Pulmonary Medical History: Reports: Bronchitis Denies: Asthma, Chronic Obstructive Pulmonary Disease (COPD), Pneumonia, Tuberculosis Neurological Medical History: Denies: Seizures Endocrine Medical History: Reports: Diabetes Mellitus Type 1, Diabetes Mellitus Type 2 Renal/ Medical History: Denies: End Stage Renal Disease GI Medical History: Reports: Diverticulitis - diverticulosis Denies: Gastroesophageal Reflux Disease, Hiatal Hernia Musculoskeltal Medical History: Denies: Arthritis Psychiatric Medical History: Denies: Bipolar Disorder, Depression Hematology: Denies: Anemia, Hemophilia, Sickle Cell Disease Past Surgical History Past Surgical History: Reports: Coronary Artery Bypass Graft - July 31 2011, Tonsillectomy, Vascular Surgery Denies: Amputation, Appendectomy, Cardiac Catheterization, Section, Cholecystectomy, Hysterectomy, Mastectomy, Tubal Ligation Social History Smoking Status: Never Smoker Frequency of Alcohol Use: None Hx Recreational Drug Use: No Drugs: None Hx Prescription Drug Abuse: No Family History Family History: Reviewed & Not Pertinent, CAD, Hyperlipidemia, Hypertension Parental Family History Reviewed: No Children Family History Reviewed: NA Sibling(s) Family History Reviewed.: NA Medication/Allergy Home Medications: Amlodipine Besylate [Norvasc 10 mg Tablet] 10 mg PO DAILY 12/10/17 Apixaban [Eliquis 2.5 mg Tablet] 2.5 mg PO BID 12/10/17 Aspirin [Aspirin EC] 81 mg PO DAILY 12/10/17 Carvedilol [Coreg 6.25 mg Tablet] 6.25 mg PO Q12 12/10/17 Digoxin [Lanoxin] 125 mcg PO DAILY 12/10/17 Furosemide [Lasix 40 mg Tablet] 40 mg PO TID@0800,1400,2200 12/10/17 Gabapentin [Neurontin 300 mg Capsule] 300 mg PO Q6 12/10/17 Gentamicin Sulfate [Garamycin 0.1% Cream 15 gm] 1 applic TP DAILY 12/10/17 Hydralazine HCl [Apresoline 50 mg Tablet] 50 mg PO Q8 12/10/17 Insulin Detemir [Levemir Flextouch] 50 unit SQ Q12 12/10/17 Insulin Lispro [Humalog Insulin 100 Unit/1 ml 3 ml Vial] 0 unit SUBCUT .SLIDING SCALE 12/10/17 Isosorbide Mononitrate [Ismo 20 Mg Tablet] 20 mg PO Q8 12/10/17 Nitroglycerin [Nitrostat 0.4 mg (1/150 Gr) Tabs 25/Bottle] 1 tab SL Q5MP PRN 10/22 Oxycodone HCl [Oxycodone HCl 10 MG Tablet] 10 mg PO Q6HP PRN 12/10/17 Pravastatin Sodium [Pravachol] 20 mg PO QHS 12/10/17 Sacubitril/Valsartan [Entresto 97 mg/103 mg Tablet] 1 tab PO Q12 12/10/17 Allergies/Adverse Reactions: pregabalin [From Lyrica] Allergy (Verified 12/10/17 10:24) Swelling of hands and face Review of Systems All systems: reviewed and no additional remarkable complaints except as stated Physical Exam Vital Signs: Temp Pulse Resp BP Pulse Ox 98.3 F 58 L 16 120/55 L 96 12/13/17 19:45 12/13/17 19:45 12/13/17 19:45 12/13/17 19:45 12/13/17 19:45 Intake & Output 12/12/17 12/13/17 12/14/17 06:59 06:59 06:59 Intake Total 1263 812 790 Output Total 1200 300 450 Balance 63 512 340 Weight 107.1 kg 108.1 kg Exam: General: Patient is alert and looks well. HEENT: There is no pallor or jaundice. PERRLA. Oropharynx normal Respiratory: No chest deformity. No respiratory distress. Chest wall palpitation was unremarkable. Breath sounds were normal Cardiovascular: Heart sounds 1 and 2 normal with no murmurs. Abdominal: Not distended. Soft with tenderness in the left lower quadrant. Liver and spleen not palpable. No ascites demonstrated. Bowel sounds active. Rectal examination was deferred. Extremities: No edema Neurological: Alert and oriented x4. Grossly nonfocal. Normal speech Skin: No significant rash Psychological: Normal affect Results Laboratory Results: 12/11/17 19:10 12/12/17 06:13 12/10/17 12/10/17 12/10/17 00:03 00:03 06:08 Creatine Kinase 30 26 L Troponin I < 0.012 12/10/17 12/10/17 12/10/17 06:08 06:08 11:46 Creatine Kinase 29 L Troponin I < 0.012 < 0.012 Impressions: Chest X-Ray 12/09/17 17:28 IMPRESSION: NO ACUTE RADIOGRAPHIC FINDING IN THE CHEST. Abdomen/Pelvis CT 12/10/17 00:00 IMPRESSION: Moderate sigmoid bowel wall thickening. Moderate retroperitoneal lymphadenopathy. Small ascites. Differential etiologies include infectious, inflammatory, and neoplastic processes. Assessment & Plan - Diagnosis (1) Left lower quadrant pain Is this a current diagnosis for this admission?: Yes Plan: She has a 4-5 day history of left lower quadrant pain that is constant and associated with abnormal sigmoid colon. Differential diagnoses include ischemic colitis, diverticulitis, and less likely neoplasm. She is at a very high risk for ischemic colitis in view of her other medical history. She is currently on antibiotics and she will continue with this. We can consider p.o. Cipro and Flagyl upon discharge. I will also start her on mesalamine to use for the next month to help with the healing process. She will need a repeat colonoscopy as outpatient. (2) Abnormal CT scan, gastrointestinal tract Is this a current diagnosis for this admission?: Yes (3) Hypertension Qualifiers: Hypertension type: essential hypertension Qualified Code(s): I10 - Essential (primary) hypertension Is this a current diagnosis for this admission?: Yes (4) PVD (peripheral vascular disease) Is this a current diagnosis for this admission?: Yes (5) S/P CABG (coronary artery bypass graft) Is this a current diagnosis for this admission?: Yes
[2017-12-13] MEDS: ATORVASTATIN CALCIUM 10 MG TABLET PO SCH (22:09)
[2017-12-13] MEDS: HYDROMORPHONE HCL INJ/PF 2 MG/ML AMPULE IV PRN (22:11)
[2017-12-14] MEDS: GABAPENTIN 300 MG CAPSULE PO SCH ×3 (00:48→11:27)
[2017-12-14] MEDS: HYDROMORPHONE HCL INJ/PF 2 MG/ML AMPULE IV PRN (06:11)
[2017-12-14] MEDS: HYDRALAZINE HCL 50 MG TABLET PO SCH ×2 (06:12→14:19)
[2017-12-14] MEDS: ISOSORBIDE MONONITRATE 20 MG TABLET PO SCH ×2 (06:13→14:20)
[2017-12-14] MEDS ORDERED: NALOXONE HCL INJ/PF 0.4 MG/1 ML SDV ONE (07:57)
[2017-12-14] MEDS ORDERED: NALOXONE HCL INJ/PF 0.4 MG/1 ML SDV IV ONE (09:15)
--- NOTE | 2017-12-14 09:55 | EKG REPORT ---
SEVERITY:- ABNORMAL ECG - SINUS RHYTHM VENTRICULAR BIGEMINY BORDERLINE LEFT AXIS DEVIATION BORDERLINE R WAVE PROGRESSION, ANTERIOR LEADS NONSPECIFIC T ABNORMALITIES, LATERAL LEADS : Confirmed by: Charlette Harding MD 14-Dec-2017 09:55:04
[2017-12-14] MEDS ORDERED: CEFTRIAXONE 1 GM/D5W RTU 1 GM/50 ML RTUPB IV SCH (10:00)
[2017-12-14] MEDS: CARVEDILOL 6.25 MG TABLET PO SCH (10:33)
[2017-12-14] MEDS: AMLODIPINE BESYLATE 10 MG TABLET PO SCH (10:33)
[2017-12-14] MEDS: FUROSEMIDE 40 MG TABLET PO SCH (10:34)
[2017-12-14] MEDS: APIXABAN 2.5 MG TABLET PO SCH (10:34)
[2017-12-14] MEDS: SACUBITRIL/VALSARTAN 97 MG/103 MG TABLET PO SCH (10:34)
[2017-12-14] MEDS: ASPIRIN 81 MG TABLET, ENT COATED PO SCH (10:34)
[2017-12-14] MEDS: RANOLAZINE 500 MG TAB.SR.12H PO SCH (10:34)
[2017-12-14] MEDS: DIGOXIN 0.125 MG TABLET PO SCH (10:35)
[2017-12-14] MEDS: INSULIN DETEMIR 100 UNIT/ML 3 ML PEN SUBCUT SCH (10:54)
[2017-12-14] MEDS ORDERED: CEFTRIAXONE SODIUM 1,000 MG in NORMAL SALINE 50 ML IV SCH (11:00)
[2017-12-14] MEDS: INSULIN LISPRO 100 UNIT/ML 3 ML VIAL SUBCUT PRN (12:21)
[2017-12-14] MEDS: GENTAMICIN SULFATE 0.1% CREAM 15 GM TP SCH (14:19)
[2017-12-14 15:38] VITALS: BP 170/68
--- NOTE | 2017-12-19 11:34 | PDOC DISCHARGE SUMMARY ---
General - Admit/Disc Date/PCP Admission Date/Primary Care Provider: 12/09/17 19:34 STEPHANRACHELE TAFOYA Discharge Date: 12/14/17 - Discharge Diagnosis (1) Acute on chronic combined systolic and diastolic CHF, NYHA class 3 Is this a current diagnosis for this admission?: Yes (2) UTI (urinary tract infection) Is this a current diagnosis for this admission?: Yes (3) Abdominal pain Is this a current diagnosis for this admission?: Yes (4) Diabetes mellitus type 2 in obese Is this a current diagnosis for this admission?: Yes (5) 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 2 diabetes mellitus Is this a current diagnosis for this admission?: Yes (6) Hypertension Is this a current diagnosis for this admission?: Yes (7) Hyperlipidemia Is this a current diagnosis for this admission?: Yes (8) CAD (coronary artery disease) Is this a current diagnosis for this admission?: Yes (9) S/P CABG (coronary artery bypass graft) Is this a current diagnosis for this admission?: Yes (10) Chronic stable angina Is this a current diagnosis for this admission?: Yes (11) Open wound of left knee without complication Is this a current diagnosis for this admission?: Yes (12) Hx of stroke without residual deficits Is this a current diagnosis for this admission?: Yes (13) Chronic pain syndrome Is this a current diagnosis for this admission?: Yes (14) Chronic use of opiate for therapeutic purpose Is this a current diagnosis for this admission?: Yes (15) Morbid obesity with BMI of 40.0-44.9, adult Is this a current diagnosis for this admission?: Yes - Additional Information Discharge Diet: Cardiac, Diabetic Discharge Activity: Activity As Tolerated, Balance Activity w/Rest, Weigh Daily Prescriptions: Ciprofloxacin HCl [Cipro 500 mg Tablet] 500 mg PO BID #20 tablet Mesalamine 1.2 gm PO BID #60 tablet. Metronidazole [Flagyl 500 mg Tablet] 500 mg PO TID #30 tablet Ranolazine [Ranexa 500 mg Tab.sr] 500 mg PO Q12 #60 tab.sr.12h Home Medications: Amlodipine Besylate [Norvasc 10 mg Tablet] 10 mg PO DAILY 12/10/17 Apixaban [Eliquis 2.5 mg Tablet] 2.5 mg PO BID 12/10/17 Aspirin [Aspirin EC] 81 mg PO DAILY 12/10/17 Carvedilol [Coreg 6.25 mg Tablet] 6.25 mg PO Q12 12/10/17 Digoxin [Lanoxin] 125 mcg PO DAILY 12/10/17 Gabapentin [Neurontin 300 mg Capsule] 300 mg PO Q6 12/10/17 Gentamicin Sulfate [Garamycin 0.1% Cream 15 gm] 1 applic TP DAILY 12/10/17 Hydralazine HCl [Apresoline 50 mg Tablet] 50 mg PO Q8 12/10/17 Insulin Detemir [Levemir Flextouch] 50 unit SQ Q12 12/10/17 Insulin Lispro [Humalog Insulin (Lispro) 100 unit/mL] 0 unit SUBCUT .SLIDING SCALE 12/10/17 Isosorbide Mononitrate [Ismo 20 mg Tablet] 20 mg PO Q8 12/10/17 Nitroglycerin [Nitrostat 0.4 mg (1/150 Gr) Tabs 25/Bottle] 1 tab SL Q5MP PRN 10/22 Oxycodone HCl [Oxycodone HCl 10 MG Tablet] 10 mg PO Q6HP PRN 12/10/17 Pravastatin Sodium [Pravachol] 20 mg PO QHS 12/10/17 Sacubitril/Valsartan [Entresto 97 mg/103 mg Tablet] 1 tab PO Q12 12/10/17 Ciprofloxacin HCl [Cipro 500 mg Tablet] 500 mg PO BID #20 tablet 12/14/17 Furosemide [Lasix 40 mg Tablet] 40 mg PO BID tablet 12/14/17 Mesalamine 1.2 gm PO BID #60 tablet. 12/14/17 Metronidazole [Flagyl 500 mg Tablet] 500 mg PO TID #30 tablet 12/14/17 Ranolazine [Ranexa 500 mg Tab.sr] 500 mg PO Q12 #60 tab.sr.12h 12/14/17 History of Present Illness Patient complains of: Worsening weakness and shortness of breath History of Present Illness: JAVIER BURGER is a 62 year old female known to my practice and recurrent admission to this facility for chronic combined CHF. She presented with complain of generalized weakness and shortness of breath with minimal exertion. Patient's Lasix was recently increase to 40 mg p.o tid due to increase weight gain and edema to lower extremities. She denied any chest pain. She reported inability to get her recently prescribed Ranexa for chronic angina. She denied any palpitation. She claimed compliance with all other current medications including increase in her Lasix. Her dietary restriction and fluid intake compliance remain in question. Patient reported pain across her ;lower abdominal region over last 3-4 days. She denied fever but claimed intermittent chills. There is nausea but no vomiting. She denied any dysuria, hematuria or flank pain. Her evaluation in the ED revealed elevated NT-Pro BNP and abnormal urinalysis suggestive of UTI. Her morbidities include combined congestive heart failure, Coronary Artery Disease s/p quad bypass surgery, old NE, Hypertension, Hyperlipidemia, Peripheral Vascular Disease, Stroke without significant deficit , Diabetes Mellitus Type 2, Diverticulosis, and osteoarthritis with chronic pain syndrome. She was treated with IV Lasix and IV Rocephin. She was advised hospitalization for further evaluation and management. Hospital Course Hospital Course: She was managed with IV Lasix and fluid restriction. Her breathing did improved and leg swelling resolved. She was transition to oral Lasix and continue to have satisfactory urine output. Patient was started on Ranexa during this hospitalization due to persistent feeling of elephant sitting on her chest from chronic stable angina. Her symptoms have since improved. She was seen in consultation by Dr Sosa, road train driver, due to continue complain about abdominal pain and CT scan abdomen and pelvic revealing sigmoid colon 12 cm wall thickening and multiple retroperitonel adenopathy. It is recommended to continue oral antibiotic and Mesalamine therapy upon discharge. She will follow up on outpatient colonoscopy in the near future. Her left heel ulcer is fairly clean and granulating okay. She will continue home health agency nurse service and outpatient wound care center management upon discharge. SHe will follow up with Dr Sosa and myself as instructed upon discharge. Physical Exam Vital Signs: Temp Pulse Resp BP Pulse Ox 97.3 F 65 13 121/80 99 12/14/17 12:01 12/14/17 12:01 12/14/17 12:01 12/14/17 12:01 12/14/17 12:01 Intake & Output 12/13/17 12/14/17 12/15/17 06:59 06:59 06:59 Intake Total 812 1189 287 Output Total 300 450 Balance 512 739 287 Weight 108.1 kg 108.4 kg Physical Exam: General appearance: PRESENT: no acute distress, morbidly obese Head exam: PRESENT: atraumatic, normocephalic Eye exam: PRESENT: conjunctiva pink, EOMI, PERRLA. ABSENT: scleral icterus Ear exam: PRESENT: normal external ear exam Mouth exam: PRESENT: moist Teeth exam: PRESENT: poor dentation Respiratory exam: PRESENT: clear to auscultation jerrica, decreased breath sounds Cardiovascular exam: PRESENT: RRR. ABSENT: diastolic murmur, rubs, systolic murmur Vascular exam: ABSENT: pallor GI/Abdominal exam: PRESENT: normal bowel sounds, soft, tenderness - comparatively better lower quadrants tenderness. ABSENT: distended, guarding, mass, organomegaly, rebound Extremities exam: ABSENT: pedal edema Musculoskeletal exam: PRESENT: deformity - left heel chronic ulcer Neurological exam: PRESENT: alert, awake, oriented to person, oriented to place , oriented to time, oriented to situation, CN II-XII grossly intact. ABSENT: motor sensory deficit Psychiatric exam: PRESENT: appropriate affect, normal mood. ABSENT: homicidal ideation, suicidal ideation Skin exam: PRESENT: dry, warm. Results Laboratory Results: 12/11/17 19:10 12/12/17 06:13 12/10/17 12/10/17 12/10/17 00:03 00:03 06:08 Creatine Kinase 30 26 L Troponin I < 0.012 12/10/17 12/10/17 12/10/17 06:08 06:08 11:46 Creatine Kinase 29 L Troponin I < 0.012 < 0.012 Impressions: Chest X-Ray 12/09/17 17:28 IMPRESSION: NO ACUTE RADIOGRAPHIC FINDING IN THE CHEST. Abdomen/Pelvis CT 12/10/17 00:00 IMPRESSION: Moderate sigmoid bowel wall thickening. Moderate retroperitoneal lymphadenopathy. Small ascites. Differential etiologies include infectious, inflammatory, and neoplastic processes. Qualifiers - * PATIENT BEING DISCHARGED WITH ANY OF THE FOLLOWING DIAGNOSIS: Heart Failure HF Pt being discharged on ACEI for LVEF less than 40%?: No Reason(s) for not prescribing ACEI:: Medical Contraindication HF Pt being discharged on ARBS for LVEF less than 40%?: Yes HF Pt with Afib discharged with Warfarin?: No Reason(s) for not prescribing Warfarin:: Not indicated HF Pt discharged on evidence-based Beta Bee:: No Reason(s) for not prescribing evidence-based Beta Bee:: Medical Contraindication - on Eliqius therapy. Plan Discharge Plan: Discharge home today with resumption of [facility] [facility] service. Follow up with Dr Sosa and myself as instructed upon discharge.
== END 2017-12-14 16:50 | disposition home health service (06) | DRG 292 ==
LOC: ER 17:15 → EH 19:34 → 3S 21:36
PROVIDERS: ADMIT Internal Medicine Geriatric Medicine; ATTEND Internal Medicine Geriatric Medicine
DX: I11.0 Hypertensive heart disease with heart failure (principal); N39.0 Urinary tract infection, site not specified; Z68.41 Body mass index [BMI] 40.0-44.9, adult; L97.429 Non-pressure chronic ulcer of left heel and midfoot with unspecified severity; E66.01 Morbid (severe) obesity due to excess calories; I50.43 Acute on chronic combined systolic (congestive) and diastolic (congestive) heart failure; I25.10 Atherosclerotic heart disease of native coronary artery without angina pectoris; E78.5 Hyperlipidemia, unspecified; E11.51 Type 2 diabetes mellitus with diabetic peripheral angiopathy without gangrene; E11.621 Type 2 diabetes mellitus with foot ulcer; R59.9 Enlarged lymph nodes, unspecified; R10.32 Left lower quadrant pain; M19.90 Unspecified osteoarthritis, unspecified site; G89.4 Chronic pain syndrome; Z95.1 Presence of aortocoronary bypass graft; Z86.73 Personal history of transient ischemic attack (TIA), and cerebral infarction without residual deficits; I25.2 Old myocardial infarction; Z82.49 Family history of ischemic heart disease and other diseases of the circulatory system; Z79.82 Long term (current) use of aspirin; Z79.4 Long term (current) use of insulin; Z79.899 Other long term (current) drug therapy; Z88.8 Allergy status to other drugs, medicaments and biological substances; Z79.891 Long term (current) use of opiate analgesic
CPT/HCPCS: 36415; 71045; 74177; 80048; 80053; 80061; 80076; 80162; 81001; 82550; 82962; 83735; 83880; 84439; 84443; 84484; 85025; 85610; 87040; 87086; 87088; 87186; 93005; 93010; 96374; 96375; 99291; J0696; J1170; J1650; J1815; J1940; J2310; J3010; J3490; S0119

== ENCOUNTER 2017-12-25 17:10 | Inpatient (IN) | payer MEDICARE, MEDICAID ==
--- NOTE | 2017-12-25 18:59 | ER Document Report ---
ED GI/ - General Chief Complaint: Abdominal Pain Stated Complaint: ABDOMINAL PAIN Time Seen by Provider: 12/25/17 18:58 Mode of Arrival: Stretcher Information source: Patient TRAVEL OUTSIDE OF THE [place] IN LAST 30 DAYS: No - HPI Patient complains to provider of: Abdominal pain Onset: This morning Timing/Duration: Sudden Quality of pain: Achy, Cramping Severity at maximum: Severe Severity in ED: Severe Pain Level: 4 Location: Epigastric Vaginal bleeding (Compared to normal period): None OB ultrasound done: No vitamins taken: No Sexual history: Inactive Associated symptoms: None Exacerbated by: Denies Relieved by: Denies Similar symptoms previously: Yes Recently seen / treated by doctor: No - Related Data Allergies/Adverse Reactions: pregabalin [From Lyrica] Allergy (Verified 12/25/17 18:46) Swelling of hands and face Past Medical History - Social History Smoking Status: Unknown if Ever Smoked Family History: Reviewed & Not Pertinent, CAD, Hyperlipidemia, Hypertension - Past Medical History Cardiac Medical History: Reports: Hx Congestive Heart Failure, Hx Coronary Artery Disease, Hx Heart Attack, Hx Hypercholesterolemia, Hx Hypertension, Hx Peripheral Vascular Disease Denies: Hx Atrial Fibrillation Pulmonary Medical History: Reports: Hx Bronchitis Denies: Hx Asthma, Hx COPD, Hx Pneumonia, Hx Tuberculosis Neurological Medical History: Reports: Hx Cerebrovascular Accident - 2007. Denies: Hx Seizures Endocrine Medical History: Reports: Hx Diabetes Mellitus Type 1, Hx Diabetes Mellitus Type 2 Renal/ Medical History: Denies: Hx End Stage Renal Disease, Hx Peritoneal Dialysis GI Medical History: Reports: Hx Diverticulitis - diverticulosis. Denies: Hx Gastroesophageal Reflux Disease, Hx Hiatal Hernia Musculoskeletal Medical History: Denies Hx Arthritis Skin Medical History: Denies Hx MRSA Psychiatric Medical History: Denies: Hx Bipolar Disorder, Hx Depression Past Surgical History: Reports: Hx Cardiac Surgery - quad bypass, Hx Coronary Artery Bypass Graft - July 31 2011, Hx Tonsillectomy, Hx Vascular Surgery. Denies: Hx Appendectomy, Hx Cardiac Catheterization, Hx Section, Hx Cholecystectomy, Hx Hysterectomy, Hx Mastectomy, Hx Tubal Ligation - Immunizations Immunizations up to date: No Hx Diphtheria, Pertussis, Tetanus Vaccination: Yes Hx Pneumococcal Vaccination: 02/04/11 Review of Systems - Review of Systems Constitutional: denies: Chills, Fever EENT: No symptoms reported Cardiovascular: denies: Chest pain, Palpitations Respiratory: No symptoms reported Gastrointestinal: Abdominal pain Genitourinary: No symptoms reported Female Genitourinary: No symptoms reported Musculoskeletal: No symptoms reported Skin: No symptoms reported Hematologic/Lymphatic: No symptoms reported Neurological/Psychological: No symptoms reported -: Yes All other systems reviewed and negative Physical Exam - Vital signs Vitals: Temp Pulse Resp BP Pulse Ox 98.8 F 69 24 H 134/52 H 91 L 12/25/17 17:15 12/25/17 17:15 12/25/17 17:15 12/25/17 17:15 12/25/17 17:15 - General General appearance: Appears well, Alert In distress: Mild - HEENT Head: Normocephalic, Atraumatic Eyes: Normal Pupils: PERRL - Respiratory Respiratory status: No respiratory distress Chest status: Nontender Breath sounds: Normal Chest palpation: Normal - Cardiovascular Rhythm: Regular Heart sounds: Normal auscultation Murmur: No - Abdominal Inspection: Morbidly Obese Distension: No distension Bowel sounds: Normal Tenderness: Tender Organomegaly: No organomegaly - Back Back: Normal, Nontender - Extremities General upper extremity: Normal inspection, Nontender, Normal color, Normal ROM , Normal temperature General lower extremity: Normal inspection, Nontender, Edema, Normal color, Normal ROM, Normal temperature, Normal weight bearing. No: Mark's sign - Neurological Neuro grossly intact: Yes Cognition: Normal Orientation: AAOx4 Stollings Coma Scale Eye Opening: Spontaneous Amber Coma Scale Verbal: Oriented Amber Coma Scale Motor: Obeys Commands Amber Coma Scale Total: 15 Speech: Normal Motor strength normal: LUE, RUE, LLE, RLE Sensory: Normal - Psychological Associated symptoms: Normal affect, Normal mood - Skin Skin Temperature: Warm Skin Moisture: Dry Skin Color: Normal Course - Vital Signs Vital signs: Temp Pulse Resp BP Pulse Ox 98.8 F 69 13 157/58 H 98 12/25/17 17:15 12/25/17 17:15 12/26/17 03:01 12/26/17 02:01 12/26/17 03:01 - Laboratory Result Diagrams: 12/25/17 19:55 12/25/17 21:58 Laboratory results interpreted by me: 12/25/17 12/25/17 12/25/17 19:55 19:55 21:00 Hgb 10.9 L Hct 34.0 L RDW 18.9 H Seg Neutrophils % 87.3 H Lymphocytes % 7.1 L PT 17.0 H Chloride Carbon Dioxide Glucose Calcium Total Bilirubin Direct Bilirubin AST Alkaline Phosphatase Albumin Lipase Urine Protein 100 H Urine Urobilinogen 4.0 H 12/25/17 21:58 Hgb Hct RDW Seg Neutrophils % Lymphocytes % PT Chloride 114 H Carbon Dioxide 19 L Glucose 113 H Calcium 7.7 L Total Bilirubin 2.2 H Direct Bilirubin 1.3 H AST 13 L Alkaline Phosphatase 367 H Albumin 2.7 L Lipase < 10.0 L Urine Protein Urine Urobilinogen - Diagnostic Test Radiology reviewed: Image reviewed, Reports reviewed - EKG Interpretation by Ga EKG shows normal: Sinus rhythm Rate: Normal - 74 When compared to previous EKG there are: Changes noted Additional EKG results interpreted by me: 12/25/17 20:[address] and T wave changes. No STEMI. - Transfer of Care Notes: 12/26/17 03:10 Abdominal pain. CHF exacerbation. Discharge - Discharge Clinical Impression: Colitis presumed infectious Abdominal pain Qualifiers: Abdominal location: generalized Qualified Code(s): R10.84 - Generalized abdominal pain CHF exacerbation Qualifiers: Heart failure type: unspecified Qualified Code(s): I50.9 - Heart failure, unspecified Condition: Stable Disposition: ADMITTED INPATIENT Admitting Provider: Dr Dubon Unit Admitted: Telemetry
[2017-12-25] MEDS ORDERED: HYDROMORPHONE HCL INJ/PF 2 MG/ML AMPULE IV ONE (19:10)
[2017-12-25] MEDS ORDERED: ONDANSETRON HCL INJ/PF 4 MG/2 ML SDV IV ONE (19:10)
[2017-12-25 20:14] LABS: ABSOLUTE LYMPHOCYTES (AUTO) 0.7 10^3/uL (0.5-4.7); ABSOLUTE MONOCYTES (AUTO) 0.5 10^3/uL (0.1-1.4); BASOPHILS % (AUTO) 0.3 % (0-2); EOSINOPHILS % (AUTO) 0.3 % (0-6); HEMOGLOBIN 10.9 g/dL (12.0-15.5); LYMPHOCYTES % (AUTO) 7.1 % (13-45); MEAN CORPUSCULAR HEMOGLOBIN 28.8 pg (27.0-33.4); MEAN CORPUSCULAR HGB CONC 32.2 g/dL (32.0-36.0); MEAN CORPUSCULAR VOLUME 90 fl (80-97); PLATELET COUNT 321 10^3/uL (150-450); RED BLOOD COUNT 3.79 10^6/uL (3.72-5.28); RED CELL DISTRIBUTION WIDTH 18.9 % (11.5-14.0); SEGMENTED NEUTROPHILS % (AUTO) 87.3 % (42-78); TOTAL CELLS COUNTED % (AUTO) 100 %; WHITE BLOOD COUNT 9.2 10^3/uL (4.0-10.5)
[2017-12-25 20:18] LABS: INTERNATIONAL RATION (INR) 1.32; PARTIAL THROMBOPLASTIN TIME 29.5 SEC (23.5-35.8)
--- NOTE | 2017-12-25 20:25 | RADIOLOGY REPORT (SQ) ---
EXAM DESCRIPTION: CHEST SINGLE VIEW COMPLETED DATE/TIME: 12/25/2017 8:12 pm REASON FOR STUDY: EPIGASTRIC pain COMPARISON: 12/09/2017 EXAM PARAMETERS: NUMBER OF VIEWS: One view. TECHNIQUE: Single frontal radiographic view of the chest acquired. RADIATION DOSE: NA LIMITATIONS: None. FINDINGS: LUNGS AND PLEURA: Pulmonary vascular congestion. No vitaliy pulmonary edema. MEDIASTINUM AND HILAR STRUCTURES: No masses. Contour normal. HEART AND VASCULAR STRUCTURES: Cardiomegaly. BONES: No acute findings. HARDWARE: None in the chest. OTHER: No other significant finding. IMPRESSION: Cardiomegaly with pulmonary vascular congestion but no vitaliy CHF. TECHNICAL DOCUMENTATION: JOB ID: [id number] [employer] All Rights Reserved Reading location - IP/workstation name: [email or web address]
[2017-12-25 21:34] LABS: APPEARANCE,URINE SLIGHTLY-CLOUDY; BILIRUBIN,URINE NEGATIVE (NEGATIVE); COLOR,URINE YELLOW; GLUCOSE, URINE NEGATIVE (NEGATIVE); KETONES,URINE NEGATIVE (NEGATIVE); LEUKOCYTE ESTERASE,URINE NEGATIVE (NEGATIVE); NITRITE,URINE NEGATIVE (NEGATIVE); PROTEIN,URINE 100 mg/dL (NEGATIVE); URINE SPECIFIC GRAVITY 1.016
--- NOTE | 2017-12-25 22:16 | EKG REPORT ---
SEVERITY:- BORDERLINE ECG - SINUS RHYTHM PROBABLE LEFT ATRIAL ABNORMALITY BORDERLINE LEFT AXIS DEVIATION BORDERLINE R WAVE PROGRESSION, ANTERIOR LEADS : Confirmed by: Irma Hitchcock 25-Dec-2017 22:15:35
[2017-12-25] MEDS ORDERED: FUROSEMIDE INJ/PF 40 MG/4 ML SDV IV ONE (22:31)
[2017-12-25 22:33] LABS: ALANINE AMINOTRANSFERASE 25 U/L (9-52); ALBUMIN 2.7 g/dL (3.5-5.0); ALKALINE PHOSPHATASE 367 U/L (38-126); ANION GAP 11 (5-19); ASPARTATE AMINO TRANSFERASE 13 U/L (14-36); BILIRUBIN,DIRECT 1.3 mg/dL (0.0-0.4); BILIRUBIN,TOTAL 2.2 mg/dL (0.2-1.3); BLOOD UREA NITROGEN 17 mg/dL (7-20); CALCIUM 7.7 mg/dL (8.4-10.2); CARBON DIOXIDE 19 mmol/L (22-30); CHLORIDE 114 mmol/L (98-107); CREATINE KINASE 35 U/L (30-135); GLUCOSE 113 mg/dL (75-110); POTASSIUM 3.6 mmol/L (3.6-5.0); TOTAL PROTEIN 6.5 g/dL (6.3-8.2)
[2017-12-25 22:34] LABS: LIPASE < 10.0 U/L (23-300)
[2017-12-25 22:44] LABS: TROPONIN I < 0.012 ng/mL
--- NOTE | 2017-12-26 00:26 | RADIOLOGY REPORT (SQ) ---
EXAM DESCRIPTION: CT ABDOMEN PELVIS WITH IV CONTRAST COMPLETED DATE/TME: 12/25/2017 19:12 CLINICAL HISTORY: Right upper quadrant pain. COMPARISON: 12/10/2017 TECHNIQUE: CT of the abdomen and pelvis performed following IV administration of 98 mL of Omnipaque 350. DLP: 2008 9.84 mGycm FINDINGS: Lung Bases: Bibasilar airspace opacities and possible small left pleural effusion. Coronary artery atherosclerosis. Prior median sternotomy. Bones: Degenerative change of the spine. Degenerative change of the hips and sacroiliac joints. Abdomen: Liver: The liver has normal size and density. No intrahepatic mass or biliary dilatation. Gallbladder: No calcified gallstones. Spleen, Pancreas, and Adrenal Glands: The spleen, pancreas, and adrenal glands are unremarkable. Kidneys: The kidneys have normal size and contour without evidence of solid mass or hydronephrosis. Vasculature: Aortoiliac atherosclerosis. The portal vein is patent. The proximal visceral and renal arteries are patent. Stomach: The stomach and duodenum have normal course. Other: No free intraperitoneal air. Small amount of ascites. Diffuse body wall edema. Nonspecific retroperitoneal lymphadenopathy again identified. Small ventral hernia containing loops of nondilated small bowel appear Pelvis: Bladder: Urinary bladder is unremarkable. Bowel: Scattered diverticula of the colon. Wall thickening of the sigmoid colon again identified. There is also short segment wall thickening of loops of small bowel in the mid abdomen. Appendix: The appendix is not identified on this study. Pelvis: IUD again identified. IMPRESSION: 1. Small amount of ascites which is increased from the comparison study. 2. Redemonstrated mild wall thickening of the sigmoid colon as well as interval development of mild wall thickening of loops of small bowel in the mid abdomen. These findings could be seen with enterocolitis of infectious or inflammatory etiology. 3. Redemonstrated retroperitoneal lymphadenopathy is stable. 4. Bibasilar airspace opacities may relate to atelectasis however pneumonia or aspiration could provide a similar appearance. Small left pleural effusion. 5. Diverticulosis without evidence of acute diverticulitis. This exam was performed according to our departmental dose-optimization program, which includes automated exposure control, adjustment of the mA and/or kV according to patient size and/or use of iterative reconstruction technique.
[2017-12-26] MEDS ORDERED: METRONIDAZOLE 500 MG/NS RTU 500 MG/100 ML RTUPB IV ONE (01:45)
[2017-12-26] MEDS ORDERED: LEVOFLOXACIN 750 MG/D5W RTU 750 MG/150 ML RTUPB IV ONE (01:45)
[2017-12-26] MEDS ORDERED: DEXTROSE 50%-WATER 25 GM/50 ML DISP.SYRIN IV PRN (02:01)
[2017-12-26] MEDS ORDERED: DEXTROSE 40% GEL 15 GM TUBE PO PRN ×2 (02:01)
[2017-12-26] MEDS ORDERED: GLUCAGON,HUMAN RECOMB 1 MG INJ SUBCUT PRN (02:01)
[2017-12-26] MEDS ORDERED: METRONIDAZOLE 500 MG/NS RTU 500 MG/100 ML RTUPB IV SCH (06:00)
[2017-12-26] MEDS ORDERED: ENOXAPARIN SODIUM INJ 40 MG/0.4 ML DISP.SYRIN SUBCUT SCH (10:00)
[2017-12-26] MEDS ORDERED: FUROSEMIDE INJ/PF 20 MG/2 ML SDV IV SCH (10:00)
[2017-12-26] MEDS: PANTOPRAZOLE SODIUM 40 MG VIAL IV SCH (10:49)
[2017-12-26] MEDS: CIPROFLOXACIN 400 MG/D5W RTU 400 MG/200 ML RTUPB IV SCH ×2 (10:50→22:07)
[2017-12-26] MEDS: METRONIDAZOLE 500 MG/NS RTU 500 MG/100 ML RTUPB IV SCH ×2 (12:34→17:27)
[2017-12-26] MEDS: INSULIN LISPRO 100 UNIT/ML 3 ML VIAL SUBCUT SCH ×2 (16:10→22:04)
[2017-12-26] MEDS ORDERED: NITROGLYCERIN 0.4 MG/TAB 25 TAB/BOTTLE SL PRN (20:21)
--- NOTE | 2017-12-26 20:21 | PDOC H&P ---
History of Present Illness Admission Date/PCP: 12/26/17 01:50 [facility] Patient complains of: Abdominal pain History of Present Illness: JAVIER BURGER is a 62 year old female known to my practice who was transferred to my service th1s morning after mistakenly admitted to the hospitalist service. She presented to the ED with sudden onset abdominal pain that started on the day of her presentation. She described pain as achy, crampy and localized poorly to lower quadrants of her abdomen. She denied any nausea or vomiting. No constipation or diarrhea. She denied any fever or chills. No bloody or tarry stool. No flank pain, hematuria or dysuria. She was recently discharged from this hospital with consideration of possible ischemic colitis involving the sigmoid region of the colon of her CT scan of abdomen and pelvis during that admission. She was discharged home on Flagyl, Ciprofloxacin and Mesalamine. Patient compliance remain questionable and she was scheduled for outpatient follow up with inside wireman upon discharge which she has not fulfilled. 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 Past Medical History Cardiac Medical History: Reports: Congestive Heart Failure, Coronary Artery Disease, Myocardial Infarction, Hyperlipidema, Hypertension, Peripheral Vascular Disease Denies: Atrial Fibrillation Pulmonary Medical History: Reports: Bronchitis Denies: Asthma, Chronic Obstructive Pulmonary Disease (COPD), Pneumonia, Tuberculosis Neurological Medical History: Denies: Seizures Endocrine Medical History: Reports: Diabetes Mellitus Type 1, Diabetes Mellitus Type 2 Renal/ Medical History: Denies: End Stage Renal Disease GI Medical History: Reports: Diverticulitis - diverticulosis Denies: Gastroesophageal Reflux Disease, Hiatal Hernia Musculoskeltal Medical History: Denies: Arthritis Psychiatric Medical History: Denies: Bipolar Disorder, Depression Hematology: Denies: Anemia, Hemophilia, Sickle Cell Disease Past Surgical History Past Surgical History: Reports: Coronary Artery Bypass Graft - July 31 2011, Tonsillectomy, Vascular Surgery Denies: Amputation, Appendectomy, Cardiac Catheterization, Section, Cholecystectomy, Hysterectomy, Mastectomy, Tubal Ligation Social History Smoking Status: Former Smoker Number of Years Smokin Frequency of Alcohol Use: None Hx Recreational Drug Use: No Drugs: None Hx Prescription Drug Abuse: No - Advance Directive Resuscitation Status: Full Code Family History Family History: Reviewed & Not Pertinent, CAD, Hyperlipidemia, Hypertension Parental Family History Reviewed: Yes Children Family History Reviewed: Yes Sibling(s) Family History Reviewed.: Yes Medication/Allergy Home Medications: Aspirin [Aspirin EC] 81 mg PO DAILY 12/10/17 Carvedilol [Coreg 6.25 mg Tablet] 6.25 mg PO Q12 12/10/17 Digoxin [Lanoxin] 125 mcg PO DAILY 12/10/17 Gabapentin [Neurontin 300 mg Capsule] 300 mg PO Q6 12/10/17 Hydralazine HCl [Apresoline 50 mg Tablet] 50 mg PO Q8 12/10/17 Insulin Detemir [Levemir Flextouch] 50 unit SQ Q12 12/10/17 Insulin Lispro [Humalog Insulin (Lispro) 100 unit/mL] 0 unit SUBCUT .SLIDING SCALE 12/10/17 Isosorbide Mononitrate [Ismo 20 mg Tablet] 20 mg PO Q8 12/10/17 Nitroglycerin [Nitrostat 0.4 mg (1/150 Gr) Tabs 25/Bottle] 1 tab SL Q5MP PRN 10/22 Oxycodone HCl [Oxycodone HCl 10 MG Tablet] 10 mg PO Q6HP PRN 12/10/17 Pravastatin Sodium [Pravachol] 20 mg PO QHS 12/10/17 Sacubitril/Valsartan [Entresto 97 mg/103 mg Tablet] 1 tab PO Q12 12/10/17 Furosemide [Lasix 40 mg Tablet] 40 mg PO BID tablet 12/14/17 Amlodipine Besylate [Norvasc 10 mg Tablet] 10 mg PO DAILY 12/26/17 Apixaban [Eliquis 2.5 mg Tablet] 2.5 mg PO DAILY 12/26/17 Ranolazine [Ranexa] 500 mg PO BID 12/26/17 Allergies/Adverse Reactions: pregabalin [From Lyrica] Allergy (Verified 12/25/17 18:46) Swelling of hands and face Review of Systems Constitutional: ABSENT: chills, fever(s), headache(s), weight gain, weight loss Eyes: ABSENT: visual disturbances Ears: ABSENT: hearing changes Nose, Mouth, and Throat: ABSENT: as per HPI, headache(s), mouth pain, sore throat, vertigo, other Cardiovascular: ABSENT: chest pain, dyspnea on exertion, edema, orthropnea, palpitations Respiratory: ABSENT: cough, hemoptysis Gastrointestinal: PRESENT: abdominal pain. ABSENT: as per HPI, bloating, coffee ground emesis, constipation, diarrhea, dysphagia, heartburn, hematemesis , hematochezia, melena, nausea, vomiting, other Genitourinary: ABSENT: difficulty urinating, dysuria, hematuria Musculoskeletal: PRESENT: back pain - chronic pain syndrome Integumentary: PRESENT: wounds - chronic left heel ulcer Neurological: ABSENT: abnormal gait, abnormal speech, confusion, dizziness, focal weakness, syncope Psychiatric: ABSENT: anxiety, depression, homidical ideation, suicidal ideation Endocrine: ABSENT: cold intolerance, heat intolerance, polydipsia, polyuria Hematologic/Lymphatic: ABSENT: easy bleeding, easy bruising, lymphadenopathy Allergic/Immunologic: ABSENT: seasonal rhinorrhea Physical Exam Vital Signs: Temp Pulse Resp BP Pulse Ox 98.4 F 64 18 99/41 L 97 12/26/17 16:35 12/26/17 16:35 12/26/17 16:35 12/26/17 16:35 12/26/17 16:35 Intake & Output 12/25/17 12/26/17 12/27/17 06:59 06:59 06:59 Intake Total 200 1030 Balance 200 1030 Weight 104 kg General appearance: PRESENT: no acute distress, well-developed, well-nourished Head exam: PRESENT: atraumatic, normocephalic Eye exam: PRESENT: conjunctiva pink, EOMI, PERRLA. ABSENT: scleral icterus Ear exam: PRESENT: normal external ear exam Mouth exam: PRESENT: moist Teeth exam: PRESENT: poor dentation Throat exam: ABSENT: post pharyngeal erythema, tonsillar erythema, tonsillar exudate, tonsillogmegaly, other Neck exam: PRESENT: full ROM. ABSENT: carotid bruit, JVD, lymphadenopathy, thyromegaly Respiratory exam: PRESENT: clear to auscultation jerrica, decreased breath sounds - at lung bases Cardiovascular exam: PRESENT: RRR. ABSENT: diastolic murmur, rubs, systolic murmur Pulses: PRESENT: +1 pedal pulses bilateral Vascular exam: PRESENT: normal capillary refill. ABSENT: pallor GI/Abdominal exam: PRESENT: normal bowel sounds, soft, tenderness - lower qudrants. ABSENT: distended, guarding, mass, organolmegaly, rebound Rectal exam: PRESENT: deferred Extremities exam: PRESENT: other. ABSENT: pedal edema Musculoskeletal exam: PRESENT: deformity Neurological exam: PRESENT: alert, awake, oriented to person, oriented to place , oriented to time, oriented to situation, CN II-XII grossly intact. ABSENT: motor sensory deficit Psychiatric exam: PRESENT: appropriate affect, normal mood. ABSENT: homicidal ideation, suicidal ideation Skin exam: PRESENT: dry, warm, other - chronic wound on left heel region. ABSENT: cyanosis, rash Results Laboratory Results: I reviewed her lab results on [place] and form significant part of my medical decision marking. 12/26/17 12/26/17 12/26/17 03:46 10:29 15:38 Troponin I < 0.012 < 0.012 < 0.012 Impressions: Chest X-Ray 12/25/17 19:09 IMPRESSION: Cardiomegaly with pulmonary vascular congestion but no vitaliy CHF. Abdomen/Pelvis CT 12/25/17 19:12 IMPRESSION: 1. Small amount of ascites which is increased from the comparison study. 2. Redemonstrated mild wall thickening of the sigmoid colon as well as interval development of mild wall thickening of loops of small bowel in the mid abdomen. These findings could be seen with enterocolitis of infectious or inflammatory etiology. 3. Redemonstrated retroperitoneal lymphadenopathy is stable. 4. Bibasilar airspace opacities may relate to atelectasis however pneumonia or aspiration could provide a similar appearance. Small left pleural effusion. 5. Diverticulosis without evidence of acute diverticulitis. This exam was performed according to our departmental dose-optimization program, which includes automated exposure control, adjustment of the mA and/or kV according to patient size and/or use of iterative reconstruction technique. Assessment & Plan - Diagnosis (1) Colitis presumed infectious Is this a current diagnosis for this admission?: Yes Plan: See admitting attending physician orders. (2) Chronic combined systolic and diastolic CHF (congestive heart failure) Is this a current diagnosis for this admission?: Yes Plan: See admitting attending physician orders. (3) Hypertension Qualifiers: Hypertension type: essential hypertension Qualified Code(s): I10 - Essential (primary) hypertension Is this a current diagnosis for this admission?: Yes Plan: See admitting attending physician orders. (4) CAD (coronary artery disease) Qualifiers: Coronary Disease-Associated Artery/Lesion type: unspecified vessel or lesion type [place] vs. transplanted heart: [place] heart Associated angina: without angina Qualified Code(s): I25.10 - Atherosclerotic heart disease of [place] coronary artery without angina pectoris Is this a current diagnosis for this admission?: Yes Plan: See admitting attending physician orders. (5) Chronic stable angina Is this a current diagnosis for this admission?: Yes Plan: See admitting attending physician orders. (7) PVD (peripheral vascular disease) Is this a current diagnosis for this admission?: Yes Plan: See admitting attending physician orders. (8) Diabetes mellitus type 2 in obese Is this a current diagnosis for this admission?: Yes Plan: See admitting attending physician orders. (9) 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 2 diabetes mellitus Qualifiers: Diabetic foot ulcer location: heel Non-pressure ulcer stage: unspecified non-pressure ulcer stage Qualified Code(s): E11.621 - Type 2 diabetes mellitus with foot ulcer; L97.429 - Non-pressure chronic ulcer of left heel and midfoot with unspecified severity; L97.429 - Non-pressure chronic ulcer of left heel and midfoot with unspecified severity; L97.429 - Non-pressure chronic ulcer of left heel and midfoot with unspecified severity; L97.429 - Non- pressure chronic ulcer of left heel and midfoot with unspecified severity Is this a current diagnosis for this admission?: Yes Plan: See admitting attending physician orders. (10) Hyperlipidemia Qualifiers: Hyperlipidemia type: unspecified Qualified Code(s): E78.5 - Hyperlipidemia , unspecified Is this a current diagnosis for this admission?: Yes Plan: See admitting attending physician orders. (11) Left leg DVT Qualifiers: Affected thrombotic vein of extremity: femoral Is this a current diagnosis for this admission?: Yes Plan: See admitting attending physician orders. (12) Chronic use of opiate for therapeutic purpose Is this a current diagnosis for this admission?: Yes Plan: See admitting attending physician orders. (13) Hx of stroke without residual deficits Is this a current diagnosis for this admission?: Yes Plan: See admitting attending physician orders. - Time Time Spent: 50 to 70 Minutes Medications reviewed and adjusted accordingly: Yes Anticipated discharge: Home with Homehealth Within: Other - Inpatient Certification Based on my medical assessment, after consideration of the patient's comorbidities, presenting symptoms, or acuity I expect that the services needed warrant INPATIENT care.: Yes I certify that my determination is in accordance with my understanding of Medicare's requirements for reasonable and necessary INPATIENT services [42 CFR 412.3e].: Yes Medical Necessity: Need Close Monitoring Due to Risk of Patient Decompensation, Need For IV Fluids, Need For Continuous Telemetry Monitoring, Need for Pain Control, Need for IV Antibiotics, Risk of Complication if Not Cared For in Hospital Post Hospital Care: D/C Set Up Inspector Documentation - Plan Summary Plan Summary: See admitting attending physician orders.
[2017-12-26] MEDS: INSULIN DETEMIR 100 UNIT/ML 3 ML PEN SUBCUT SCH (22:03)
[2017-12-26] MEDS: ATORVASTATIN CALCIUM 10 MG TABLET PO SCH (22:04)
[2017-12-26] MEDS: ISOSORBIDE MONONITRATE 20 MG TABLET PO SCH (22:05)
[2017-12-26] MEDS: OXYCODONE-ACETAMINOPHEN 5-325 MG TABLET PO PRN (22:05)
[2017-12-26] MEDS: HYDRALAZINE HCL 50 MG TABLET PO SCH (22:06)
[2017-12-26] MEDS: SACUBITRIL/VALSARTAN 97 MG/103 MG TABLET PO SCH (22:06)
[2017-12-26] MEDS: CARVEDILOL 6.25 MG TABLET PO SCH (22:07)
[2017-12-27] MEDS: METRONIDAZOLE 500 MG/NS RTU 500 MG/100 ML RTUPB IV SCH ×4 (05:25→17:16)
[2017-12-27] MEDS: GABAPENTIN 300 MG CAPSULE PO SCH ×4 (05:25→17:17)
[2017-12-27] MEDS: OXYCODONE-ACETAMINOPHEN 5-325 MG TABLET PO PRN ×4 (06:08→22:02)
[2017-12-27] MEDS: HYDRALAZINE HCL 50 MG TABLET PO SCH ×3 (06:09→21:45)
[2017-12-27] MEDS: ISOSORBIDE MONONITRATE 20 MG TABLET PO SCH ×3 (06:11→21:46)
[2017-12-27] MEDS: INSULIN LISPRO 100 UNIT/ML 3 ML VIAL SUBCUT SCH ×4 (07:44→22:01)
[2017-12-27] MEDS: CIPROFLOXACIN 400 MG/D5W RTU 400 MG/200 ML RTUPB IV SCH ×2 (09:57→22:00)
[2017-12-27] MEDS: ASPIRIN 81 MG TABLET, ENT COATED PO SCH (10:01)
[2017-12-27] MEDS: CARVEDILOL 6.25 MG TABLET PO SCH ×2 (10:01→21:46)
[2017-12-27] MEDS: DIGOXIN 0.125 MG TABLET PO SCH (10:02)
[2017-12-27] MEDS: APIXABAN 2.5 MG TABLET PO SCH (10:02)
[2017-12-27] MEDS: SACUBITRIL/VALSARTAN 97 MG/103 MG TABLET PO SCH ×2 (10:02→21:46)
[2017-12-27] MEDS: INSULIN DETEMIR 100 UNIT/ML 3 ML PEN SUBCUT SCH ×2 (10:03→22:01)
[2017-12-27] MEDS: FUROSEMIDE 40 MG TABLET PO SCH ×2 (10:03→17:17)
[2017-12-27] MEDS: AMLODIPINE BESYLATE 10 MG TABLET PO SCH (10:04)
[2017-12-27] MEDS: PANTOPRAZOLE SODIUM 40 MG VIAL IV SCH (10:04)
[2017-12-27] MEDS: RANOLAZINE 500 MG TAB.SR.12H PO SCH ×2 (10:08→17:18)
--- NOTE | 2017-12-27 18:11 | PDOC PROGRESS REPORT ---
Subjective Progress Note for:: 12/27/17 Subjective:: Patient continue to express mid and lower quadrant abdominal pain. She reported associated nausea but no vomiting. No fever or chills. No chest pain or difficulty with breathing. Reason For Visit: HEART FAILURE Physical Exam Vital Signs: Temp Pulse Resp BP Pulse Ox 97.7 F 61 20 96/45 L 99 12/27/17 16:00 12/27/17 16:00 12/27/17 16:00 12/27/17 16:00 12/27/17 16:00 Intake & Output 12/26/17 12/27/17 12/28/17 06:59 06:59 06:59 Intake Total 200 1688 636 Balance 200 1688 636 Weight 104.3 kg General appearance: PRESENT: no acute distress, obese Head exam: PRESENT: atraumatic, normocephalic Ear exam: PRESENT: normal external ear exam Mouth exam: PRESENT: moist Teeth exam: PRESENT: poor dentation Respiratory exam: PRESENT: clear to auscultation jerrica, decreased breath sounds - at lung bases Cardiovascular exam: PRESENT: RRR. ABSENT: diastolic murmur, rubs, systolic murmur Vascular exam: ABSENT: pallor GI/Abdominal exam: PRESENT: normal bowel sounds, tenderness - lower quadrants and mid abdominal region. ABSENT: ascites, distended, organolmegaly Extremities exam: ABSENT: pedal edema Neurological exam: PRESENT: alert, awake, oriented to person, oriented to place , oriented to time, oriented to situation, CN II-XII grossly intact. ABSENT: motor sensory deficit Psychiatric exam: PRESENT: appropriate affect, normal mood. ABSENT: homicidal ideation, suicidal ideation Skin exam: PRESENT: dry, warm, other - left foot chronic diabetic ulcer Results Laboratory Results: 12/26/17 12/26/17 12/26/17 03:46 10:29 15:38 Troponin I < 0.012 < 0.012 < 0.012 NT-Pro-B Natriuret Pep 12/27/17 05:38 Troponin I NT-Pro-B Natriuret Pep 5740 H Impressions: Chest X-Ray 12/25/17 19:09 IMPRESSION: Cardiomegaly with pulmonary vascular congestion but no vitaliy CHF. Abdomen/Pelvis CT 12/25/17 19:12 IMPRESSION: 1. Small amount of ascites which is increased from the comparison study. 2. Redemonstrated mild wall thickening of the sigmoid colon as well as interval development of mild wall thickening of loops of small bowel in the mid abdomen. These findings could be seen with enterocolitis of infectious or inflammatory etiology. 3. Redemonstrated retroperitoneal lymphadenopathy is stable. 4. Bibasilar airspace opacities may relate to atelectasis however pneumonia or aspiration could provide a similar appearance. Small left pleural effusion. 5. Diverticulosis without evidence of acute diverticulitis. This exam was performed according to our departmental dose-optimization program, which includes automated exposure control, adjustment of the mA and/or kV according to patient size and/or use of iterative reconstruction technique. Assessment & Plan - Diagnosis (1) Colitis presumed infectious Is this a current diagnosis for this admission?: Yes (2) Chronic combined systolic and diastolic CHF (congestive heart failure) Is this a current diagnosis for this admission?: Yes (3) Hypertension Qualifiers: Hypertension type: essential hypertension Qualified Code(s): I10 - Essential (primary) hypertension Is this a current diagnosis for this admission?: Yes (4) CAD (coronary artery disease) Qualifiers: Coronary Disease-Associated Artery/Lesion type: unspecified vessel or lesion type [place] vs. transplanted heart: [place] heart Associated angina: without angina Qualified Code(s): I25.10 - Atherosclerotic heart disease of [place] coronary artery without angina pectoris Is this a current diagnosis for this admission?: Yes (5) Chronic stable angina Is this a current diagnosis for this admission?: Yes (7) PVD (peripheral vascular disease) Is this a current diagnosis for this admission?: Yes (8) Diabetes mellitus type 2 in obese Is this a current diagnosis for this admission?: Yes (9) 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 2 diabetes mellitus Qualifiers: Diabetic foot ulcer location: heel Non-pressure ulcer stage: unspecified non-pressure ulcer stage Qualified Code(s): E11.621 - Type 2 diabetes mellitus with foot ulcer; L97.429 - Non-pressure chronic ulcer of left heel and midfoot with unspecified severity; L97.429 - Non-pressure chronic ulcer of left heel and midfoot with unspecified severity; L97.429 - Non-pressure chronic ulcer of left heel and midfoot with unspecified severity; L97.429 - Non- pressure chronic ulcer of left heel and midfoot with unspecified severity Is this a current diagnosis for this admission?: Yes (10) Hyperlipidemia Qualifiers: Hyperlipidemia type: unspecified Qualified Code(s): E78.5 - Hyperlipidemia , unspecified Is this a current diagnosis for this admission?: Yes (11) Left leg DVT Qualifiers: Affected thrombotic vein of extremity: femoral Is this a current diagnosis for this admission?: Yes (12) Chronic use of opiate for therapeutic purpose Is this a current diagnosis for this admission?: Yes (13) Hx of stroke without residual deficits Is this a current diagnosis for this admission?: Yes - Time Time Spent with patient: 25-34 minutes Medications reviewed and adjusted accordingly: Yes Anticipated discharge: Home with Homehealth Within: Other - Inpatient Certification Based on my medical assessment, after consideration of the patient's comorbidities, presenting symptoms, or acuity I expect that the services needed warrant INPATIENT care.: Yes I certify that my determination is in accordance with my understanding of Medicare's requirements for reasonable and necessary INPATIENT services [42 CFR 412.3e].: Yes Medical Necessity: Need Close Monitoring Due to Risk of Patient Decompensation, Need For IV Fluids, Need For Continuous Telemetry Monitoring, Need for IV Antibiotics, Risk of Complication if Not Cared For in Hospital Post Hospital Care: D/C Master Rigger Documentation - Plan Summary Plan Summary: I will request surgical consultation in view of her small bowel wall segmental thickening as new finding for further evaluation and management. Change diet to full liquid pending surgical consult input. Continue all other current medication management. Follow up on culture findings.
[2017-12-27] MEDS: ATORVASTATIN CALCIUM 10 MG TABLET PO SCH (22:02)
[2017-12-28] MEDS: METRONIDAZOLE 500 MG/NS RTU 500 MG/100 ML RTUPB IV SCH ×5 (01:40→23:42)
[2017-12-28] MEDS: GABAPENTIN 300 MG CAPSULE PO SCH ×5 (01:40→23:45)
[2017-12-28] MEDS: HYDRALAZINE HCL 50 MG TABLET PO SCH ×3 (05:42→21:37)
[2017-12-28] MEDS: ISOSORBIDE MONONITRATE 20 MG TABLET PO SCH ×3 (05:44→21:38)
[2017-12-28] MEDS: DEXTROSE 50%-WATER 25 GM/50 ML DISP.SYRIN IV PRN ×2 (06:48→12:56)
[2017-12-28 07:07] LABS: ALANINE AMINOTRANSFERASE 16 U/L (9-52); ALKALINE PHOSPHATASE 291 U/L (38-126); ANION GAP 11 (5-19); ASPARTATE AMINO TRANSFERASE 20 U/L (14-36); BILIRUBIN,TOTAL 1.2 mg/dL (0.2-1.3); BLOOD UREA NITROGEN 35 mg/dL (7-20); CALCIUM 8.4 mg/dL (8.4-10.2); CARBON DIOXIDE 24 mmol/L (22-30); CHLORIDE 106 mmol/L (98-107); POTASSIUM 4.6 mmol/L (3.6-5.0); SODIUM 140.9 mmol/L (137-145); TOTAL PROTEIN 7.4 g/dL (6.3-8.2)
[2017-12-28 07:13] LABS: GLUCOSE 33 mg/dL (75-110)
[2017-12-28] MEDS: INSULIN LISPRO 100 UNIT/ML 3 ML VIAL SUBCUT SCH ×4 (07:34→21:38)
[2017-12-28 08:16] LABS: ABSOLUTE EOSINOPHILS # (AUTO) 0.1 10^3/uL (0.0-0.6); ABSOLUTE LYMPHOCYTES (AUTO) 1.1 10^3/uL (0.5-4.7); ABSOLUTE NEUT (AUTO) 12.5 10^3/uL (1.7-8.2); BASOPHILS % (AUTO) 0.2 % (0-2); EOSINOPHILS % (AUTO) 0.7 % (0-6); HEMATOCRIT 30.3 % (36.0-47.0); HEMOGLOBIN 9.8 g/dL (12.0-15.5); LYMPHOCYTES % (AUTO) 7.6 % (13-45); MEAN CORPUSCULAR HEMOGLOBIN 28.8 pg (27.0-33.4); MEAN CORPUSCULAR HGB CONC 32.4 g/dL (32.0-36.0); MEAN CORPUSCULAR VOLUME 89 fl (80-97); MONOCYTES % (AUTO) 6.6 % (3-13); PLATELET COUNT 244 10^3/uL (150-450); RED BLOOD COUNT 3.41 10^6/uL (3.72-5.28); RED CELL DISTRIBUTION WIDTH 18.2 % (11.5-14.0); SEGMENTED NEUTROPHILS % (AUTO) 84.9 % (42-78); TOTAL CELLS COUNTED % (AUTO) 100 %; WHITE BLOOD COUNT 14.7 10^3/uL (4.0-10.5)
[2017-12-28] MEDS ORDERED: LEVOFLOXACIN 500 MG/D5W RTU 500 MG/100 ML RTUPB IV SCH (10:00)
[2017-12-28] MEDS: PANTOPRAZOLE SODIUM 40 MG VIAL IV SCH (10:56)
[2017-12-28] MEDS: ASPIRIN 81 MG TABLET, ENT COATED PO SCH (10:56)
[2017-12-28] MEDS: APIXABAN 2.5 MG TABLET PO SCH (10:57)
[2017-12-28] MEDS: RANOLAZINE 500 MG TAB.SR.12H PO SCH ×2 (10:57→18:11)
[2017-12-28] MEDS: CARVEDILOL 6.25 MG TABLET PO SCH ×2 (12:12→21:38)
[2017-12-28] MEDS: SACUBITRIL/VALSARTAN 97 MG/103 MG TABLET PO SCH ×2 (12:13→21:38)
[2017-12-28] MEDS: DIGOXIN 0.125 MG TABLET PO SCH (12:13)
[2017-12-28] MEDS: FUROSEMIDE 40 MG TABLET PO SCH (12:14)
[2017-12-28] MEDS: INSULIN DETEMIR 100 UNIT/ML 3 ML PEN SUBCUT SCH ×2 (12:14→21:39)
[2017-12-28] MEDS: AMLODIPINE BESYLATE 10 MG TABLET PO SCH (12:15)
--- NOTE | 2017-12-28 14:35 | PDOC CONSULTATION ---
Consultation Consult Date: 12/28/17 Attending physician:: STEPHAN TAFOYA Consult reason:: Abdominal pain History of Present Illness Admission Date/PCP: 12/26/17 01:50 STEPHAN TAFOYA History of Present Illness: JAVIER BURGER is a 62 year old female Who was admitted to the hospital 2 days ago for failure to thrive, shortness of breath and abdominal pain. She underwent CT scan of the abdomen pelvis without IV and oral contrast which showed fluid in the peritoneal cavity mostly on the right side, ascites versus other; she was also found to have gallstones, periaortic adenopathy, dilated inferior vena cava patient had similar symptoms several weeks ago and had a CT scan which showed similar findings without the intraperitoneal fluid. The last several weeks the patient has had progressive abdominal pain. She had one episode of vomiting yogurt this morning otherwise has been able to keep food down. Last month she was diagnosed provisionally with acute diverticulitis possible ischemic colitis. No recent endoscopy; a last colonoscopy was by Dr. Sosa several years ago by her verbal report. She denies history of trauma. SHe does ambulate with assistance with a walker. Surgery was consulted for opinion regarding abdominal pain. Past Medical History Cardiac Medical History: Reports: Congestive Heart Failure, Coronary Artery Disease, Myocardial Infarction, Hyperlipidema, Hypertension, Peripheral Vascular Disease Denies: Atrial Fibrillation Pulmonary Medical History: Reports: Bronchitis Denies: Asthma, Chronic Obstructive Pulmonary Disease (COPD), Pneumonia, Tuberculosis Neurological Medical History: Denies: Seizures Endocrine Medical History: Reports: Diabetes Mellitus Type 1, Diabetes Mellitus Type 2 Renal/ Medical History: Denies: End Stage Renal Disease GI Medical History: Reports: Diverticulitis - diverticulosis Denies: Gastroesophageal Reflux Disease, Hiatal Hernia Musculoskeltal Medical History: Denies: Arthritis Psychiatric Medical History: Denies: Bipolar Disorder, Depression Hematology: Denies: Anemia, Hemophilia, Sickle Cell Disease Past Surgical History Past Surgical History: Reports: Coronary Artery Bypass Graft - July 31 2011, Tonsillectomy, Vascular Surgery Denies: Amputation, Appendectomy, Cardiac Catheterization, Section, Cholecystectomy, Hysterectomy, Mastectomy, Tubal Ligation Social History Smoking Status: Former Smoker Number of Years Smokin Frequency of Alcohol Use: None Hx Recreational Drug Use: No Drugs: None Hx Prescription Drug Abuse: No - Advance Directive Resuscitation Status: Full Code Family History Family History: Reviewed & Not Pertinent, CAD, Hyperlipidemia, Hypertension Parental Family History Reviewed: Yes Children Family History Reviewed: Yes Sibling(s) Family History Reviewed.: Yes Medication/Allergy Home Medications: Aspirin [Aspirin EC] 81 mg PO DAILY 12/10/17 Carvedilol [Coreg 6.25 mg Tablet] 6.25 mg PO Q12 12/10/17 Digoxin [Lanoxin] 125 mcg PO DAILY 12/10/17 Gabapentin [Neurontin 300 mg Capsule] 300 mg PO Q6 12/10/17 Hydralazine HCl [Apresoline 50 mg Tablet] 50 mg PO Q8 12/10/17 Insulin Detemir [Levemir Flextouch] 50 unit SQ Q12 12/10/17 Insulin Lispro [Humalog Insulin (Lispro) 100 unit/mL] 0 unit SUBCUT .SLIDING SCALE 12/10/17 Isosorbide Mononitrate [Ismo 20 mg Tablet] 20 mg PO Q8 12/10/17 Nitroglycerin [Nitrostat 0.4 mg (1/150 Gr) Tabs 25/Bottle] 1 tab SL Q5MP PRN 10/22 Oxycodone HCl [Oxycodone HCl 10 MG Tablet] 10 mg PO Q6HP PRN 12/10/17 Pravastatin Sodium [Pravachol] 20 mg PO QHS 12/10/17 Sacubitril/Valsartan [Entresto 97 mg/103 mg Tablet] 1 tab PO Q12 12/10/17 Furosemide [Lasix 40 mg Tablet] 40 mg PO BID tablet 12/14/17 Amlodipine Besylate [Norvasc 10 mg Tablet] 10 mg PO DAILY 12/26/17 Apixaban [Eliquis 2.5 mg Tablet] 2.5 mg PO DAILY 12/26/17 Ranolazine [Ranexa] 500 mg PO BID 12/26/17 Allergies/Adverse Reactions: pregabalin [From Lyrica] Allergy (Verified 12/25/17 18:46) Swelling of hands and face Review of Systems Constitutional: PRESENT: as per HPI Eyes: ABSENT: visual disturbances Ears: ABSENT: hearing changes Nose, Mouth, and Throat: PRESENT: other - Poor dentition Cardiovascular: PRESENT: chest pain, dyspnea on exertion, orthropnea Respiratory: PRESENT: dyspnea Gastrointestinal: PRESENT: as per HPI Musculoskeletal: PRESENT: back pain Integumentary: PRESENT: as per HPI Physical Exam Vital Signs: Temp Pulse Resp BP Pulse Ox 97.7 F 66 18 101/52 L 100 12/28/17 12:00 12/28/17 12:00 12/28/17 12:00 12/28/17 12:00 12/28/17 12:00 Intake & Output 12/27/17 12/28/17 12/29/17 06:59 06:59 06:59 Intake Total 1688 1254 Balance 1688 1254 Weight 104.3 kg 113.2 kg General appearance: PRESENT: mild distress Head exam: PRESENT: normocephalic Eye exam: PRESENT: EOMI Mouth exam: PRESENT: other - Very poor dentition. Teeth exam: PRESENT: poor dentation Neck exam: PRESENT: full ROM Respiratory exam: PRESENT: accessory muscle use, decreased breath sounds Cardiovascular exam: PRESENT: RRR Pulses: PRESENT: normal carotid pulses, normal radial pulses GI/Abdominal exam: PRESENT: other - Diffusely tender with mild guarding but no rigidity. Extremities exam: PRESENT: other - Lichenification of the lower extremities; also left heel treated with Allevyn dressing Neurological exam: PRESENT: alert, awake, oriented to person, oriented to place , oriented to time, oriented to situation Psychiatric exam: PRESENT: agitated Results Laboratory Results: 12/28/17 05:45 12/28/17 05:45 12/28/17 12/28/17 05:45 05:45 WBC 14.7 H RBC 3.41 L Hgb 9.8 L Hct 30.3 L MCV 89 MCH 28.8 MCHC 32.4 RDW 18.2 H Plt Count 244 Seg Neutrophils % 84.9 H Lymphocytes % 7.6 L Monocytes % 6.6 Eosinophils % 0.7 Basophils % 0.2 Absolute Neutrophils 12.5 H Absolute Lymphocytes 1.1 Absolute Monocytes 1.0 Absolute Eosinophils 0.1 Absolute Basophils 0.0 Sodium 140.9 Potassium 4.6 Chloride 106 Carbon Dioxide 24 Anion Gap 11 BUN 35 H Creatinine 2.77 H Est GFR ( Amer) 21 L Est GFR (Non-Af Amer) 17 L Glucose 33 L* Calcium 8.4 Total Bilirubin 1.2 AST 20 ALT 16 Alkaline Phosphatase 291 H Total Protein 7.4 Albumin 3.0 L 12/26/17 12/26/17 12/26/17 03:46 10:29 15:38 Troponin I < 0.012 < 0.012 < 0.012 NT-Pro-B Natriuret Pep 12/27/17 05:38 Troponin I NT-Pro-B Natriuret Pep 5740 H Impressions: Chest X-Ray 12/25/17 19:09 IMPRESSION: Cardiomegaly with pulmonary vascular congestion but no vitaliy CHF. Abdomen/Pelvis CT 12/25/17 19:12 IMPRESSION: 1. Small amount of ascites which is increased from the comparison study. 2. Redemonstrated mild wall thickening of the sigmoid colon as well as interval development of mild wall thickening of loops of small bowel in the mid abdomen. These findings could be seen with enterocolitis of infectious or inflammatory etiology. 3. Redemonstrated retroperitoneal lymphadenopathy is stable. 4. Bibasilar airspace opacities may relate to atelectasis however pneumonia or aspiration could provide a similar appearance. Small left pleural effusion. 5. Diverticulosis without evidence of acute diverticulitis. This exam was performed according to our departmental dose-optimization program, which includes automated exposure control, adjustment of the mA and/or kV according to patient size and/or use of iterative reconstruction technique. Assessment & Plan - Diagnosis (1) Abdominal pain Qualifiers: Abdominal location: generalized Qualified Code(s): R10.84 - Generalized abdominal pain Is this a current diagnosis for this admission?: Yes Plan: Impression: Abdominal pain, progressive, subacute, nonlocalized; mild leukocytosis, CT scan findings consistent with peritoneal fluid, minimal. I am uncertain as to what is going on acutely with this patient's abdomen. She has a constellation of low-grade findings including cholelithiasis, diverticulosis disease, total bilirubin 1.2, chronic renal insufficiency; in addition she has chronic, widespread anasarca, evidence of right heart dysfunction. Recommendations: 1. No immediate indication for surgical intervention right; attempted to contact primary care provider. 2. We will follow patient clinically. If she deteriorates, she may contrast of her GI tract to rule out occult perforation. The above case was discussed with the radiologist. (2) Acute exacerbation of CHF (congestive heart failure) Qualifiers: Heart failure type: unspecified Qualified Code(s): I50.9 - Heart failure, unspecified Is this a current diagnosis for this admission?: Yes (3) Cholelithiasis without obstruction Qualifiers: Cholelithiasis location: gallbladder Cholecystitis acuity: unspecified acuity Is this a current diagnosis for this admission?: Yes (4) Diabetes mellitus type 2 in obese Is this a current diagnosis for this admission?: Yes (5) Peripheral edema Is this a current diagnosis for this admission?: Yes (6) Respiratory distress Is this a current diagnosis for this admission?: Yes (7) HTN (hypertension) Qualifiers: Is this a current diagnosis for this admission?: Yes (8) S/P CABG (coronary artery bypass graft) Is this a current diagnosis for this admission?: Yes - Time Time Spent: 30 to 50 Minutes Smoking Cessation Education: over 10 minutes Medications reviewed and adjusted accordingly: Yes Anticipated discharge: Home - Inpatient Certification Based on my medical assessment, after consideration of the patient's comorbidities, presenting symptoms, or acuity I expect that the services needed warrant INPATIENT care.: Yes I certify that my determination is in accordance with my understanding of Medicare's requirements for reasonable and necessary INPATIENT services [42 CFR 412.3e].: Yes Medical Necessity: Need For IV Fluids, Need for Pain Control, Need for IV Antibiotics
[2017-12-28] MEDS ORDERED: DEXTROSE 5%-NORMAL SALINE 1,000 ML IV PRN (15:19)
--- NOTE | 2017-12-28 15:29 | PDOC PROGRESS REPORT ---
Subjective Progress Note for:: 12/28/17 Subjective:: Patient continue to express ongoing abdominal pain. No nausea or vomiting. No chest pain or difficulty with breathing. Surgical consult input noted. Reason For Visit: HEART FAILURE Physical Exam Vital Signs: Temp Pulse Resp BP Pulse Ox 97.7 F 94 18 101/52 L 100 12/28/17 12:00 12/28/17 14:00 12/28/17 12:00 12/28/17 12:00 12/28/17 12:00 Intake & Output 12/27/17 12/28/17 12/29/17 06:59 06:59 06:59 Intake Total 1688 1254 100 Balance 1688 1254 100 Weight 104.3 kg 113.2 kg Physical Exam: General appearance: PRESENT: no acute distress, obese Head exam: PRESENT: atraumatic, normocephalic Ear exam: PRESENT: normal external ear exam Mouth exam: PRESENT: moist Teeth exam: PRESENT: poor dentition Respiratory exam: PRESENT: clear to auscultation jerrica, decreased breath sounds - at lung bases Cardiovascular exam: PRESENT: RRR. ABSENT: diastolic murmur, rubs, systolic murmur Vascular exam: ABSENT: pallor GI/Abdominal exam: PRESENT: normal bowel sounds, tenderness - lower quadrants and mid abdominal region. ABSENT: ascites, distended, organomegaly Extremities exam: ABSENT: pedal edema Neurological exam: PRESENT: alert, awake, oriented to person, oriented to place , oriented to time, oriented to situation, CN II-XII grossly intact. ABSENT: motor sensory deficit Psychiatric exam: PRESENT: appropriate affect, normal mood. ABSENT: homicidal ideation, suicidal ideation Skin exam: PRESENT: dry, warm, other - left foot chronic diabetic ulcer Results Laboratory Results: 12/28/17 05:45 12/28/17 05:45 12/28/17 12/28/17 05:45 05:45 WBC 14.7 H RBC 3.41 L Hgb 9.8 L Hct 30.3 L MCV 89 MCH 28.8 MCHC 32.4 RDW 18.2 H Plt Count 244 Seg Neutrophils % 84.9 H Lymphocytes % 7.6 L Monocytes % 6.6 Eosinophils % 0.7 Basophils % 0.2 Absolute Neutrophils 12.5 H Absolute Lymphocytes 1.1 Absolute Monocytes 1.0 Absolute Eosinophils 0.1 Absolute Basophils 0.0 Sodium 140.9 Potassium 4.6 Chloride 106 Carbon Dioxide 24 Anion Gap 11 BUN 35 H Creatinine 2.77 H Est GFR ( Amer) 21 L Est GFR (Non-Af Amer) 17 L Glucose 33 L* Calcium 8.4 Total Bilirubin 1.2 AST 20 ALT 16 Alkaline Phosphatase 291 H Total Protein 7.4 Albumin 3.0 L 12/26/17 12/26/17 12/26/17 03:46 10:29 15:38 Troponin I < 0.012 < 0.012 < 0.012 NT-Pro-B Natriuret Pep 12/27/17 05:38 Troponin I NT-Pro-B Natriuret Pep 5740 H Impressions: Chest X-Ray 12/25/17 19:09 IMPRESSION: Cardiomegaly with pulmonary vascular congestion but no vitaliy CHF. Abdomen/Pelvis CT 12/25/17 19:12 IMPRESSION: 1. Small amount of ascites which is increased from the comparison study. 2. Redemonstrated mild wall thickening of the sigmoid colon as well as interval development of mild wall thickening of loops of small bowel in the mid abdomen. These findings could be seen with enterocolitis of infectious or inflammatory etiology. 3. Redemonstrated retroperitoneal lymphadenopathy is stable. 4. Bibasilar airspace opacities may relate to atelectasis however pneumonia or aspiration could provide a similar appearance. Small left pleural effusion. 5. Diverticulosis without evidence of acute diverticulitis. This exam was performed according to our departmental dose-optimization program, which includes automated exposure control, adjustment of the mA and/or kV according to patient size and/or use of iterative reconstruction technique. Assessment & Plan - Diagnosis (1) Colitis presumed infectious Is this a current diagnosis for this admission?: Yes (2) Chronic combined systolic and diastolic CHF (congestive heart failure) Is this a current diagnosis for this admission?: Yes (3) Hypertension Qualifiers: Hypertension type: essential hypertension Qualified Code(s): I10 - Essential (primary) hypertension Is this a current diagnosis for this admission?: Yes (4) CAD (coronary artery disease) Qualifiers: Coronary Disease-Associated Artery/Lesion type: unspecified vessel or lesion type [place] vs. transplanted heart: redding heart Associated angina: without angina Qualified Code(s): I25.10 - Atherosclerotic heart disease of redding coronary artery without angina pectoris Is this a current diagnosis for this admission?: Yes (5) Chronic stable angina Is this a current diagnosis for this admission?: Yes (6) S/P CABG (coronary artery bypass graft) Is this a current diagnosis for this admission?: Yes (7) PVD (peripheral vascular disease) Is this a current diagnosis for this admission?: Yes (8) Diabetes mellitus type 2 in obese Is this a current diagnosis for this admission?: Yes (9) 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 2 diabetes mellitus Qualifiers: Diabetic foot ulcer location: heel Non-pressure ulcer stage: unspecified non-pressure ulcer stage Qualified Code(s): E11.621 - Type 2 diabetes mellitus with foot ulcer; L97.429 - Non-pressure chronic ulcer of left heel and midfoot with unspecified severity; L97.429 - Non-pressure chronic ulcer of left heel and midfoot with unspecified severity; L97.429 - Non-pressure chronic ulcer of left heel and midfoot with unspecified severity; L97.429 - Non- pressure chronic ulcer of left heel and midfoot with unspecified severity Is this a current diagnosis for this admission?: Yes (10) Hyperlipidemia Qualifiers: Hyperlipidemia type: unspecified Qualified Code(s): E78.5 - Hyperlipidemia , unspecified Is this a current diagnosis for this admission?: Yes (11) Left leg DVT Qualifiers: Affected thrombotic vein of extremity: femoral Is this a current diagnosis for this admission?: Yes (12) Chronic use of opiate for therapeutic purpose Is this a current diagnosis for this admission?: Yes (13) Hx of stroke without residual deficits Is this a current diagnosis for this admission?: Yes - Time Time Spent with patient: 25-34 minutes Medications reviewed and adjusted accordingly: Yes Anticipated discharge: Home with Homehealth Within: Other - Inpatient Certification Based on my medical assessment, after consideration of the patient's comorbidities, presenting symptoms, or acuity I expect that the services needed warrant INPATIENT care.: Yes I certify that my determination is in accordance with my understanding of Medicare's requirements for reasonable and necessary INPATIENT services [42 CFR 412.3e].: Yes Medical Necessity: Need Close Monitoring Due to Risk of Patient Decompensation, Need For IV Fluids, Need For Continuous Telemetry Monitoring, Need for IV Antibiotics, Risk of Complication if Not Cared For in Hospital Post 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 Start on D5N/S at 50 mL/hour for gentle rehydration. Hold Lasix usage. Continue all other current medication management. Repeat CBC with diff and CMP in AM. Resume full liquid diet pending any surgical intervention.
[2017-12-28] MEDS ORDERED: LEVOFLOXACIN 500 MG/D5W RTU 500 MG/100 ML RTUPB IV ONE (16:15)
[2017-12-28 17:15] LABS: ABSOLUTE EOSINOPHILS # (AUTO) 0.1 10^3/uL (0.0-0.6); ABSOLUTE MONOCYTES (AUTO) 0.8 10^3/uL (0.1-1.4); ABSOLUTE NEUT (AUTO) 12.8 10^3/uL (1.7-8.2); BASOPHILS % (AUTO) 0.3 % (0-2); EOSINOPHILS % (AUTO) 0.9 % (0-6); HEMATOCRIT 30.1 % (36.0-47.0); HEMOGLOBIN 9.6 g/dL (12.0-15.5); MEAN CORPUSCULAR HEMOGLOBIN 28.4 pg (27.0-33.4); MEAN CORPUSCULAR HGB CONC 31.8 g/dL (32.0-36.0); MEAN CORPUSCULAR VOLUME 90 fl (80-97); MONOCYTES % (AUTO) 5.1 % (3-13); PLATELET COUNT 270 10^3/uL (150-450); RED BLOOD COUNT 3.36 10^6/uL (3.72-5.28); RED CELL DISTRIBUTION WIDTH 18.4 % (11.5-14.0); SEGMENTED NEUTROPHILS % (AUTO) 86.7 % (42-78); TOTAL CELLS COUNTED % (AUTO) 100 %; WHITE BLOOD COUNT 14.8 10^3/uL (4.0-10.5)
[2017-12-28 18:18] LABS: ALANINE AMINOTRANSFERASE 16 U/L (9-52); ALBUMIN 2.6 g/dL (3.5-5.0); ALKALINE PHOSPHATASE 278 U/L (38-126); ANION GAP 12 (5-19); ASPARTATE AMINO TRANSFERASE 13 U/L (14-36); BILIRUBIN,TOTAL 1.1 mg/dL (0.2-1.3); BLOOD UREA NITROGEN 35 mg/dL (7-20); CALCIUM 8.3 mg/dL (8.4-10.2); CARBON DIOXIDE 21 mmol/L (22-30); CHLORIDE 106 mmol/L (98-107); GLUCOSE 66 mg/dL (75-110); POTASSIUM 4.4 mmol/L (3.6-5.0); SODIUM 139.3 mmol/L (137-145); TOTAL PROTEIN 6.6 g/dL (6.3-8.2)
[2017-12-28] MEDS: OXYCODONE-ACETAMINOPHEN 5-325 MG TABLET PO PRN (20:52)
[2017-12-28] MEDS: ATORVASTATIN CALCIUM 10 MG TABLET PO SCH (21:37)
[2017-12-29] MEDS: OXYCODONE-ACETAMINOPHEN 5-325 MG TABLET PO PRN ×4 (01:35→23:04)
[2017-12-29] MEDS: HYDRALAZINE HCL 50 MG TABLET PO SCH ×3 (06:14→21:17)
[2017-12-29] MEDS: ISOSORBIDE MONONITRATE 20 MG TABLET PO SCH ×3 (06:14→21:18)
[2017-12-29] MEDS: GABAPENTIN 300 MG CAPSULE PO SCH ×4 (06:27→23:04)
[2017-12-29] MEDS: METRONIDAZOLE 500 MG/NS RTU 500 MG/100 ML RTUPB IV SCH ×4 (06:29→23:03)
[2017-12-29] MEDS: SACUBITRIL/VALSARTAN 97 MG/103 MG TABLET PO SCH (09:10)
[2017-12-29] MEDS: INSULIN DETEMIR 100 UNIT/ML 3 ML PEN SUBCUT SCH (09:10)
[2017-12-29] MEDS: INSULIN LISPRO 100 UNIT/ML 3 ML VIAL SUBCUT SCH ×4 (09:10→21:18)
[2017-12-29] MEDS: CARVEDILOL 6.25 MG TABLET PO SCH ×2 (09:11→21:18)
[2017-12-29] MEDS: AMLODIPINE BESYLATE 10 MG TABLET PO SCH (09:11)
[2017-12-29] MEDS: APIXABAN 2.5 MG TABLET PO SCH (09:16)
[2017-12-29] MEDS: DIGOXIN 0.125 MG TABLET PO SCH (09:16)
[2017-12-29] MEDS: ASPIRIN 81 MG TABLET, ENT COATED PO SCH (09:16)
[2017-12-29] MEDS: RANOLAZINE 500 MG TAB.SR.12H PO SCH ×2 (09:17→18:32)
--- NOTE | 2017-12-29 09:40 | PDOC PROGRESS REPORT ---
Subjective Progress Note for:: 12/29/17 Subjective:: Still complaining some abdominal pain Patient is able to eat the breakfast today without any problems Patient seen by the general surgery suggests the known Patient seen by the general surgery also surgical interventions Patient's denied any chest pain denied any shortness of the breath Patient's kidney functions patient creatinine was worsening yesterday No labs today Reason For Visit: HEART FAILURE Physical Exam Vital Signs: Temp Pulse Resp BP Pulse Ox 98.2 F 58 L 19 104/55 L 100 12/29/17 07:56 12/29/17 07:56 12/29/17 07:56 12/29/17 07:56 12/29/17 07:56 Intake & Output 12/28/17 12/29/17 12/30/17 06:59 06:59 06:59 Intake Total 1254 1466 100 Balance 1254 1466 100 Weight 113.2 kg 112.3 kg General appearance: PRESENT: no acute distress, well-developed, well-nourished Head exam: PRESENT: atraumatic, normocephalic Eye exam: PRESENT: conjunctiva pink, EOMI, PERRLA. ABSENT: scleral icterus Ear exam: PRESENT: normal external ear exam Mouth exam: PRESENT: moist, tongue midline Neck exam: PRESENT: full ROM. ABSENT: carotid bruit, JVD, lymphadenopathy, thyromegaly Respiratory exam: PRESENT: clear to auscultation jerrica Cardiovascular exam: PRESENT: RRR. ABSENT: diastolic murmur, rubs, systolic murmur Pulses: PRESENT: normal dorsalis pedis pul, +2 pedal pulses bilateral Vascular exam: PRESENT: normal capillary refill GI/Abdominal exam: PRESENT: normal bowel sounds, soft. ABSENT: distended, guarding, mass, organolmegaly, rebound, tenderness Rectal exam: PRESENT: deferred Extremities exam: PRESENT: pedal edema Neurological exam: PRESENT: alert, awake, oriented to person, oriented to place , oriented to time, oriented to situation, CN II-XII grossly intact. ABSENT: motor sensory deficit Psychiatric exam: PRESENT: appropriate affect, normal mood. ABSENT: homicidal ideation, suicidal ideation Skin exam: PRESENT: dry, intact, warm. ABSENT: cyanosis, rash Results Laboratory Results: 12/28/17 16:30 12/28/17 16:30 12/28/17 12/28/17 16:30 16:30 WBC 14.8 H RBC 3.36 L Hgb 9.6 L Hct 30.1 L MCV 90 MCH 28.4 MCHC 31.8 L RDW 18.4 H Plt Count 270 Seg Neutrophils % 86.7 H Lymphocytes % 7.0 L Monocytes % 5.1 Eosinophils % 0.9 Basophils % 0.3 Absolute Neutrophils 12.8 H Absolute Lymphocytes 1.0 Absolute Monocytes 0.8 Absolute Eosinophils 0.1 Absolute Basophils 0.0 Sodium 139.3 Potassium 4.4 Chloride 106 Carbon Dioxide 21 L Anion Gap 12 BUN 35 H Creatinine 2.92 H Est GFR ( Amer) 20 L Est GFR (Non-Af Amer) 16 L Glucose 66 L Calcium 8.3 L Total Bilirubin 1.1 AST 13 L ALT 16 Alkaline Phosphatase 278 H Total Protein 6.6 Albumin 2.6 L 12/26/17 12/26/17 12/26/17 03:46 10:29 15:38 Troponin I < 0.012 < 0.012 < 0.012 NT-Pro-B Natriuret Pep 12/27/17 05:38 Troponin I NT-Pro-B Natriuret Pep 5740 H Impressions: Chest X-Ray 12/25/17 19:09 IMPRESSION: Cardiomegaly with pulmonary vascular congestion but no vitaliy CHF. Abdomen/Pelvis CT 12/25/17 19:12 IMPRESSION: 1. Small amount of ascites which is increased from the comparison study. 2. Redemonstrated mild wall thickening of the sigmoid colon as well as interval development of mild wall thickening of loops of small bowel in the mid abdomen. These findings could be seen with enterocolitis of infectious or inflammatory etiology. 3. Redemonstrated retroperitoneal lymphadenopathy is stable. 4. Bibasilar airspace opacities may relate to atelectasis however pneumonia or aspiration could provide a similar appearance. Small left pleural effusion. 5. Diverticulosis without evidence of acute diverticulitis. This exam was performed according to our departmental dose-optimization program, which includes automated exposure control, adjustment of the mA and/or kV according to patient size and/or use of iterative reconstruction technique. Assessment & Plan - Diagnosis (1) Abdominal pain Qualifiers: Abdominal location: generalized Qualified Code(s): R10.84 - Generalized abdominal pain Is this a current diagnosis for this admission?: Yes Plan: Continues to current medications (2) Colitis presumed infectious Is this a current diagnosis for this admission?: Yes Plan: As the Levaquin and the Flagyl (3) Acute on chronic combined systolic and diastolic CHF, NYHA class 3 Is this a current diagnosis for this admission?: Yes Plan: [place] of this renal failure we will consult cardiology for further evaluations currently we hold enresto worsening the kidney functions (4) Acute renal failure Qualifiers: Acute renal failure type: unspecified Qualified Code(s): N17.9 - Acute kidney failure, unspecified Is this a current diagnosis for this admission?: Yes Plan: Will hold theenresto Continues a slow IV fluid (5) Anemia of chronic disease Is this a current diagnosis for this admission?: Yes (6) COPD (chronic obstructive pulmonary disease) Qualifiers: COPD type: unspecified COPD Qualified Code(s): J44.9 - Chronic obstructive pulmonary disease, unspecified Is this a current diagnosis for this admission?: Yes (7) Coronary artery disease Qualifiers: Coronary Disease-Associated Artery/Lesion type: bypass graft Associated angina: with stable angina Is this a current diagnosis for this admission?: Yes (8) Diabetes mellitus type 2 in obese Is this a current diagnosis for this admission?: Yes Plan: Currently patient was running hypoglycemic currently hold the long-acting insulins (9) Hypertension Qualifiers: Hypertension type: essential hypertension Qualified Code(s): I10 - Essential (primary) hypertension Is this a current diagnosis for this admission?: Yes Plan: Currently all stable - Time Time Spent with patient: 15-24 minutes Medications reviewed and adjusted accordingly: Yes Anticipated discharge: Other Within: Other - Inpatient Certification Medical Necessity: Need Close Monitoring Due to Risk of Patient Decompensation Post Hospital Care: D/C Plant Mechanic Documentation - Plan Summary Plan Summary: We consulted cardiology Hold enresto Check a kidney function dc the long-acting insulin Continues the sliding scale
[2017-12-29] MEDS ORDERED: LEVOFLOXACIN 250 MG/D5W RTU 250 MG/50 ML RTUPB IV SCH ×3 (10:00→22:00)
[2017-12-29] MEDS ORDERED: PANTOPRAZOLE SODIUM 40 MG VIAL IV SCH (10:00)
[2017-12-29 10:23] LABS: ANION GAP 16 (5-19); BLOOD UREA NITROGEN 42 mg/dL (7-20); CALCIUM 8.6 mg/dL (8.4-10.2); CARBON DIOXIDE 18 mmol/L (22-30); CHLORIDE 107 mmol/L (98-107); GLUCOSE 114 mg/dL (75-110); POTASSIUM 4.6 mmol/L (3.6-5.0); SODIUM 140.7 mmol/L (137-145)
[2017-12-29] MEDS ORDERED: LIDOCAINE 2% VISCOUS SOLN 20 ML UDCUP PO ONE (12:30)
[2017-12-29] MEDS ORDERED: MAG HYDROX/AL HYDROX/SIMETH SUSP 30 ML UDCUP PO ONE (12:30)
[2017-12-29] MEDS ORDERED: METOCLOPRAMIDE HCL ORAL SOLN 10 MG/10 ML UDCUP PO ONE (12:30)
[2017-12-29 13:10] LABS: CREATINE KINASE MB 0.22 ng/mL (<4.55)
[2017-12-29 13:12] LABS: TROPONIN I < 0.012 ng/mL
[2017-12-29] MEDS ORDERED: DEXTROSE 5%-NORMAL SALINE 1,000 ML IV PRN ×2 (14:25→14:30)
--- NOTE | 2017-12-29 14:46 | PDOC PROGRESS REPORT ---
Subjective Progress Note for:: 12/29/17 Subjective:: c/o RUQ pain and diffuse abdominal pain Reason For Visit: HEART FAILURE Physical Exam Vital Signs: Temp Pulse Resp BP Pulse Ox 98.2 F 57 L 18 107/50 L 98 12/29/17 12:00 12/29/17 12:00 12/29/17 12:00 12/29/17 12:00 12/29/17 12:00 Intake & Output 12/28/17 12/29/17 12/30/17 06:59 06:59 06:59 Intake Total 1254 1466 200 Balance 1254 1466 200 Weight 113.2 kg 112.3 kg General appearance: PRESENT: mild distress Mouth exam: PRESENT: dry mucosa Respiratory exam: PRESENT: clear to auscultation jerrica Cardiovascular exam: PRESENT: RRR GI/Abdominal exam: PRESENT: hypoactive bowel sounds, Zimmer's sign - positive, normal bowel sounds, rebound, tenderness - diffuse, very intense pain on palpation in the RUQ with grimacing and guarding Rectal exam: PRESENT: deferred Neurological exam: PRESENT: alert, awake Results Laboratory Results: 12/28/17 16:30 12/29/17 08:16 12/28/17 12/28/17 12/29/17 16:30 16:30 08:16 WBC 14.8 H RBC 3.36 L Hgb 9.6 L Hct 30.1 L MCV 90 MCH 28.4 MCHC 31.8 L RDW 18.4 H Plt Count 270 Seg Neutrophils % 86.7 H Lymphocytes % 7.0 L Monocytes % 5.1 Eosinophils % 0.9 Basophils % 0.3 Absolute Neutrophils 12.8 H Absolute Lymphocytes 1.0 Absolute Monocytes 0.8 Absolute Eosinophils 0.1 Absolute Basophils 0.0 Sodium 139.3 140.7 Potassium 4.4 4.6 Chloride 106 107 Carbon Dioxide 21 L 18 L Anion Gap 12 16 BUN 35 H 42 H Creatinine 2.92 H 3.15 H Est GFR ( Amer) 20 L 18 L Est GFR (Non-Af Amer) 16 L 15 L Glucose 66 L 114 H Calcium 8.3 L 8.6 Total Bilirubin 1.1 AST 13 L ALT 16 Alkaline Phosphatase 278 H Total Protein 6.6 Albumin 2.6 L 12/26/17 12/26/17 12/26/17 03:46 10:29 15:38 Creatine Kinase CK-MB (CK-2) Troponin I < 0.012 < 0.012 < 0.012 NT-Pro-B Natriuret Pep 12/27/17 12/29/17 12/29/17 05:38 12:22 12:22 Creatine Kinase < 20 L CK-MB (CK-2) 0.22 Troponin I < 0.012 NT-Pro-B Natriuret Pep 5740 H Impressions: Chest X-Ray 12/25/17 19:09 IMPRESSION: Cardiomegaly with pulmonary vascular congestion but no vitaliy CHF. Abdomen/Pelvis CT 12/25/17 19:12 IMPRESSION: 1. Small amount of ascites which is increased from the comparison study. 2. Redemonstrated mild wall thickening of the sigmoid colon as well as interval development of mild wall thickening of loops of small bowel in the mid abdomen. These findings could be seen with enterocolitis of infectious or inflammatory etiology. 3. Redemonstrated retroperitoneal lymphadenopathy is stable. 4. Bibasilar airspace opacities may relate to atelectasis however pneumonia or aspiration could provide a similar appearance. Small left pleural effusion. 5. Diverticulosis without evidence of acute diverticulitis. This exam was performed according to our departmental dose-optimization program, which includes automated exposure control, adjustment of the mA and/or kV according to patient size and/or use of iterative reconstruction technique. Assessment & Plan - Diagnosis (2) Abdominal pain Qualifiers: Abdominal location: right upper quadrant Qualified Code(s): R10.11 - Right upper quadrant pain Is this a current diagnosis for this admission?: Yes - Plan Summary Plan Summary: A/ patient c/o diffuse abdominal pain and intense RUQ abdominal pain severe RUQ pain on palpation > than other abdominal quadrants after palpation Still leukocytosis (14k) Elevated LFT's on admission (T. Bilirubin 2.2, now 1.2) CT scan A/P not diagnostic Slow elevation of BUN/Creat Suspect cholecystitis P/ NPO IVF NS bolus 1L now Increase current IVF rate 125 mL./hr US GB CMP stat Hold Eliquis Flagyl 500 mg IVPB q8
[2017-12-29] MEDS ORDERED: NORMAL SALINE 1000 ML 1,000 ML IV ONE (15:30)
[2017-12-29 15:31] LABS: ALANINE AMINOTRANSFERASE 20 U/L (9-52); ALBUMIN 2.6 g/dL (3.5-5.0); ALKALINE PHOSPHATASE 268 U/L (38-126); ANION GAP 13 (5-19); ASPARTATE AMINO TRANSFERASE 13 U/L (14-36); BILIRUBIN,DIRECT 0.9 mg/dL (0.0-0.4); BILIRUBIN,TOTAL 0.9 mg/dL (0.2-1.3); BLOOD UREA NITROGEN 43 mg/dL (7-20); CALCIUM 8.4 mg/dL (8.4-10.2); CARBON DIOXIDE 19 mmol/L (22-30); CHLORIDE 108 mmol/L (98-107); GLUCOSE 130 mg/dL (75-110); POTASSIUM 4.6 mmol/L (3.6-5.0); SODIUM 140.2 mmol/L (137-145); TOTAL PROTEIN 6.6 g/dL (6.3-8.2)
--- NOTE | 2017-12-29 15:41 | RADIOLOGY REPORT (SQ) ---
EXAM DESCRIPTION: U/S ABDOMEN LIMITED W/O DOP COMPLETED DATE/TIME: 12/29/2017 3:30 pm REASON FOR STUDY: severe RUQ pain, r/o cholecystitis COMPARISON: 11/10/2017 TECHNIQUE: Dynamic and static grayscale images acquired of the abdomen and recorded on PACS. Additio nal selected color Doppler and spectral images recorded. LIMITATIONS: Limited evaluation of the pancreas and aorta due to obscuration by intervening bowel ga s. FINDINGS: PANCREAS: The head is normal in appearance. The body and tail are not visualized. LIVER: No masses. Echotexture normal. LIVER VASCULATURE: Normal directional flow of the main portal vein and hepatic veins. GALLBLADDER: Re- demonstration of multiple gallstones. No mural thickening or pericholecystic fluid. ULTRASOUND-DETECTED HOOD'S SIGN: Positive. INTRAHEPATIC DUCTS AND COMMON DUCT: CBD and intrahepatic ducts normal caliber. No filling defects. INFERIOR VENA CAVA: Normal flow. AORTA: Proximal aorta is normal. The mid and distal are not visualized. RIGHT KIDNEY: Normal size. Normal echogenicity. No solid or suspicious masses. No hydronephrosis. No calcifications. PERITONEAL AND RIGHT PLEURAL SPACE: Perihepatic fluid is demonstrated. OTHER: No other significant findings. IMPRESSION: 1. Perihepatic fluid of unknown etiology. 2. Cholelithiasis without sonographic findings of cholecystitis. TECHNICAL DOCUMENTATION: JOB ID: [id number] [employer]- All Rights Reserved Reading location - IP/workstation name: [email or web address]
--- NOTE | 2017-12-29 15:42 | PDOC CONSULTATION ---
Consultation Consult Date: 12/29/17 Attending physician:: STEPHAN TAFOYA Consult reason:: CHF and chest pain History of Present Illness Admission Date/PCP: 12/26/17 01:50 STEPHAN TAFOYA Patient complains of: Chest pain History of Present Illness: JAVIER BURGER is a 62 year old female known to my practice who was transferred to my service th1s morning after mistakenly admitted to the hospitalist service. She presented to the ED with sudden onset abdominal pain that started on the day of her presentation. She described pain as achy, crampy and localized poorly to lower quadrants of her abdomen. She denied any nausea or vomiting. No constipation or diarrhea. She denied any fever or chills. No bloody or tarry stool. No flank pain, hematuria or dysuria. She was recently discharged from this hospital with consideration of possible ischemic colitis involving the sigmoid region of the colon of her CT scan of abdomen and pelvis during that admission. She was discharged home on Flagyl, Ciprofloxacin and Mesalamine. Patient compliance remain questionable and she was scheduled for outpatient follow up with chief solution architect upon discharge which she has not fulfilled. 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 This history obtained by the revenue cycle consultant was reviewed. Today I was asked to see this patient for management of CHF. However when I went to see the patient she complained of chest pressure. A stat EKG was obtained EKG changes. I ordered GI cocktail to be given and ordered for cardiac enzymes to be obtained along with a repeat EKG in 4 hours. Although patient had complained of chest pain she looked comfortable without any associated diaphoresis nausea or vomiting. Past Medical History Cardiac Medical History: Reports: Congestive Heart Failure, Coronary Artery Disease, Myocardial Infarction, Hyperlipidema, Hypertension, Peripheral Vascular Disease Denies: Atrial Fibrillation Pulmonary Medical History: Reports: Bronchitis Denies: Asthma, Chronic Obstructive Pulmonary Disease (COPD), Pneumonia, Tuberculosis Neurological Medical History: Denies: Seizures Endocrine Medical History: Reports: Diabetes Mellitus Type 1, Diabetes Mellitus Type 2 Renal/ Medical History: Denies: End Stage Renal Disease GI Medical History: Reports: Diverticulitis - diverticulosis Denies: Gastroesophageal Reflux Disease, Hiatal Hernia Musculoskeltal Medical History: Denies: Arthritis Psychiatric Medical History: Denies: Bipolar Disorder, Depression Hematology: Denies: Anemia, Hemophilia, Sickle Cell Disease Past Surgical History Past Surgical History: Reports: Coronary Artery Bypass Graft - July 31 2011, Tonsillectomy, Vascular Surgery Denies: Amputation, Appendectomy, Cardiac Catheterization, Section, Cholecystectomy, Hysterectomy, Mastectomy, Tubal Ligation Social History Information Source: Patient Smoking Status: Former Smoker Number of Years Smokin Frequency of Alcohol Use: None Hx Recreational Drug Use: No Drugs: None Hx Prescription Drug Abuse: No - Advance Directive Resuscitation Status: Full Code Family History Family History: CAD, Hyperlipidemia, Hypertension Parental Family History Reviewed: Yes Children Family History Reviewed: Yes Sibling(s) Family History Reviewed.: Yes Medication/Allergy Home Medications: Aspirin [Aspirin EC] 81 mg PO DAILY 12/10/17 Carvedilol [Coreg 6.25 mg Tablet] 6.25 mg PO Q12 12/10/17 Digoxin [Lanoxin] 125 mcg PO DAILY 12/10/17 Gabapentin [Neurontin 300 mg Capsule] 300 mg PO Q6 12/10/17 Hydralazine HCl [Apresoline 50 mg Tablet] 50 mg PO Q8 12/10/17 Insulin Detemir [Levemir Flextouch] 50 unit SQ Q12 12/10/17 Insulin Lispro [Humalog Insulin (Lispro) 100 unit/mL] 0 unit SUBCUT .SLIDING SCALE 12/10/17 Isosorbide Mononitrate [Ismo 20 mg Tablet] 20 mg PO Q8 12/10/17 Nitroglycerin [Nitrostat 0.4 mg (1/150 Gr) Tabs 25/Bottle] 1 tab SL Q5MP PRN 10/22 Oxycodone HCl [Oxycodone HCl 10 MG Tablet] 10 mg PO Q6HP PRN 12/10/17 Pravastatin Sodium [Pravachol] 20 mg PO QHS 12/10/17 Sacubitril/Valsartan [Entresto 97 mg/103 mg Tablet] 1 tab PO Q12 12/10/17 Furosemide [Lasix 40 mg Tablet] 40 mg PO BID tablet 12/14/17 Amlodipine Besylate [Norvasc 10 mg Tablet] 10 mg PO DAILY 12/26/17 Apixaban [Eliquis 2.5 mg Tablet] 2.5 mg PO DAILY 12/26/17 Ranolazine [Ranexa] 500 mg PO BID 12/26/17 Allergies/Adverse Reactions: pregabalin [From Lyrica] Allergy (Verified 12/25/17 18:46) Swelling of hands and face Review of Systems Review of Systems: Please see history of present illness and past medical history as wall. Constitutional: No fever or chills reported. Head : No recent chronic headaches, recent head injury. Eyes: No recent eye pain, diplopia, redness, discharge, acute visual changes. Ears: No recent chronic ear pain, acute hearing loss, ear discharge. Oral cavity: No recent ulcerations, bleeding, oral cavity discomfort. Neck: No recent acute neck pain reported. Hematologic: No recent easy bruising or bleeding. Lymphatic: No recent lymph node enlargement reported. Cardiovascular system review: See history of present illness. Respiratory system review: No hemoptysis or blood clots in the lungs reported. Mild Shortness of breath on exertion Gastrointestinal system review: Negative for any recent acute hematemesis, melena. Abdominal pain, constipation, some nausea reported. Genitourinary system review: No recent acute or chronic hematuria, flank pain, UTI etc. reported. Skin system review: Negative for any recent abnormal bruising, no rash, no pruritus reported. Neurologic: No prior history of strokes, mini strokes, seizure disorder. Psychologic: No history of major psychosis or major depression reported. Musculoskeletal: Minor aches and pains reported. No acute joint swelling reported. Endocrine: No recent polyuria, polydipsia, recent heat or cold intolerance. Physical Exam Vital Signs: Temp Pulse Resp BP Pulse Ox 98.2 F 57 L 18 107/50 L 98 12/29/17 12:00 12/29/17 12:00 12/29/17 12:00 12/29/17 12:00 12/29/17 12:00 Intake & Output 12/28/17 12/29/17 12/30/17 06:59 06:59 06:59 Intake Total 1254 1466 200 Balance 1254 1466 200 Weight 113.2 kg 112.3 kg Exam: GENERAL: well-nourished and in no acute distress. Alert and oriented x3 HEAD: Atraumatic, normocephalic. EYES: Pupils equal round and reactive to light, extraocular movements intact, sclera anicteric, conjunctiva are normal. ENT: TMs normal, nares patent, oropharynx clear without exudates. Moist mucous membranes. No oral ulcerations or bleeding gums noted NECK: supple without lymphadenopathy. Trachea is central. No cervical or axillary lymphadenopathy noted. Carotids are 2+, JVD WNL LUNGS: Respiration seems nonlabored, no significant accessory muscle action noted. Breath sounds clear to auscultation bilaterally and equal noted. No wheezes rales or rhonchi noted. No significant dullness noted on percussion. CHEST: Palpation of the chest wall shows mild diffuse chest wall tenderness. HEART: [place] [employer], No PSH, 1/6 KASSY aortic area, 1/6 zacarias systolic murmur mitral area, no rubs, no gallops. ABDOMEN: Soft, lower abdominal tenderness appreciated, normoactive bowel sounds. No guarding, no rebound. No rigidity noted . No masses appreciated. EXTREMITIES: Pedal pulses are 1-2+, no calf tenderness noted. No clubbing or cyanosis. 1+ pedal edema noted NEUROLOGICAL: Focused neurological exam showed no significant neurologic deficit. Normal speech, no focal weakness appreciated. PSYCH: Normal mood, normal affect. Judgment and insight within normal limits. SKIN: No significant ecchymosis, skin is noted to be warm. MUSCULOSKELETAL EXAM: No significant acute joint swelling noted. Results Laboratory Results: 12/28/17 16:30 12/28/17 12/28/17 12/29/17 16:30 16:30 08:16 WBC 14.8 H RBC 3.36 L Hgb 9.6 L Hct 30.1 L MCV 90 MCH 28.4 MCHC 31.8 L RDW 18.4 H Plt Count 270 Seg Neutrophils % 86.7 H Lymphocytes % 7.0 L Monocytes % 5.1 Eosinophils % 0.9 Basophils % 0.3 Absolute Neutrophils 12.8 H Absolute Lymphocytes 1.0 Absolute Monocytes 0.8 Absolute Eosinophils 0.1 Absolute Basophils 0.0 Sodium 139.3 140.7 Potassium 4.4 4.6 Chloride 106 107 Carbon Dioxide 21 L 18 L Anion Gap 12 16 BUN 35 H 42 H Creatinine 2.92 H 3.15 H Est GFR ( Amer) 20 L 18 L Est GFR (Non-Af Amer) 16 L 15 L Glucose 66 L 114 H Calcium 8.3 L 8.6 Total Bilirubin 1.1 AST 13 L ALT 16 Alkaline Phosphatase 278 H Total Protein 6.6 Albumin 2.6 L 12/26/17 12/26/17 12/26/17 03:46 10:29 15:38 Creatine Kinase CK-MB (CK-2) Troponin I < 0.012 < 0.012 < 0.012 NT-Pro-B Natriuret Pep 12/27/17 12/29/17 12/29/17 05:38 12:22 12:22 Creatine Kinase < 20 L CK-MB (CK-2) 0.22 Troponin I < 0.012 NT-Pro-B Natriuret Pep 5740 H EKG Comments: Sinus rhythm, no acute ST-T wave changes are noted. Impressions: Chest X-Ray 12/25/17 19:09 IMPRESSION: Cardiomegaly with pulmonary vascular congestion but no vitaliy CHF. Abdomen/Pelvis CT 12/25/17 19:12 IMPRESSION: 1. Small amount of ascites which is increased from the comparison study. 2. Redemonstrated mild wall thickening of the sigmoid colon as well as interval development of mild wall thickening of loops of small bowel in the mid abdomen. These findings could be seen with enterocolitis of infectious or inflammatory etiology. 3. Redemonstrated retroperitoneal lymphadenopathy is stable. 4. Bibasilar airspace opacities may relate to atelectasis however pneumonia or aspiration could provide a similar appearance. Small left pleural effusion. 5. Diverticulosis without evidence of acute diverticulitis. This exam was performed according to our departmental dose-optimization program, which includes automated exposure control, adjustment of the mA and/or kV according to patient size and/or use of iterative reconstruction technique. Assessment & Plan - Diagnosis (1) Chest pain Qualifiers: Chest pain type: unspecified Qualified Code(s): R07.9 - Chest pain, unspecified Is this a current diagnosis for this admission?: Yes (2) COPD (chronic obstructive pulmonary disease) Qualifiers: COPD type: unspecified COPD Qualified Code(s): J44.9 - Chronic obstructive pulmonary disease, unspecified Is this a current diagnosis for this admission?: Yes (3) Congestive heart failure (CHF) Is this a current diagnosis for this admission?: Yes (4) Diabetes mellitus type 2 in obese Is this a current diagnosis for this admission?: Yes (5) Hypertension Qualifiers: Hypertension type: essential hypertension Qualified Code(s): I10 - Essential (primary) hypertension Is this a current diagnosis for this admission?: Yes (6) Morbid obesity with BMI of 40.0-44.9, adult Is this a current diagnosis for this admission?: Yes (7) PVD (peripheral vascular disease) Is this a current diagnosis for this admission?: Yes (8) Shortness of breath Is this a current diagnosis for this admission?: Yes (9) CAD (coronary artery disease) Qualifiers: Coronary Disease-Associated Artery/Lesion type: unspecified vessel or lesion type [place] vs. transplanted heart: platinum heart Associated angina: without angina Qualified Code(s): I25.10 - Atherosclerotic heart disease of platinum coronary artery without angina pectoris Is this a current diagnosis for this admission?: Yes (10) HLD (hyperlipidemia) Qualifiers: Hyperlipidemia type: pure hypercholesterolemia Qualified Code(s): E78.00 - Pure hypercholesterolemia, unspecified Is this a current diagnosis for this admission?: Yes - Notes Notes: Chest pain: Multiple differential diagnosis possible here, in view of known CAD this could be unstable angina, acute coronary syndrome. Recommend troponin I and EKGs. Other possibility includes gastroesophageal reflux, pulmonary embolism etc. with patient being very obese. Recommend reinstitution of Eliquis therapy on treating patient with heparin drip unless these can be ruled out. COPD: Currently stable. CHF: Seems fairly compensated. BNP is elevated. I did review patient's previous echocardiogram and LVEF was noted to be relatively well-preserved at that point. Diabetes: We will leave management to the hospitalist. Would recommend good control but avoid any hyper or hypoglycemia. Hypertension: Blood pressure goal should be 135/85 or less in this patient with diabetes and CAD. Morbid obesity: Patient will benefit from gradual weight loss. Peripheral vascular disease: Currently stable. Observe for any peripheral tissue loss. Shortness of breath: Chronic and multifactorial. Continue to observe for any worsening. CAD: Chest pain today. Evaluated by EKG and troponin I. Will try optimize medical management in the meantime. Dyslipidemia: Recommend high potency statin therapy. Acute on chronic kidney disease: Patient noted to have significant elevation of creatinine. May consider nephrology consultation. - Time Time Spent: 30 to 50 Minutes - CODE STATUS was discussed, patient remains full code. Multiple medical problems were addressed. More than 50% of the time spent coordinating care, discussing management plans with involved caregivers. Management plans discussed with involved personnels. Medical decision making was of moderate to high complexity, patient's has multiple comorbidities. Medications reviewed and adjusted accordingly: Yes
[2017-12-29] MEDS: ONDANSETRON HCL INJ/PF 4 MG/2 ML SDV IV PRN (16:03)
--- NOTE | 2017-12-29 17:56 | RADIOLOGY REPORT (SQ) ---
EXAM DESCRIPTION: NM LUNG VENT/PERF SCAN COMPLETED DATE/TIME: 12/29/2017 5:46 pm REASON FOR STUDY: Chest Pain COMPARISON: None. RADIONUCLIDE AND DOSE: 4.97 millicuries TC-99m MAA Intravenous 32.6 millicuries TC-99m DTPA Inhaled aerosol TECHNIQUE: Eight views of the lungs acquired post ventilation of DTPA aerosol. Eight matching views of the lungs acquired following injection of MAA. LIMITATIONS: None. FINDINGS: VENTILATION: Symmetric and homogeneous distribution of DTPA aerosol during ventilatory pha se. No significant areas of photopenia. PERFUSION: Perfusion images with normal homogenous activity and no wedge-shaped or segmental defects. No ventilation-perfusion mismatches. OTHER: No other significant finding. IMPRESSION: NORMAL VENTILATION-PERFUSION LUNG SCAN. NEGATIVE FOR PULMONARY EMBOLI. TECHNICAL DOCUMENTATION: JOB ID: [id number] [employer]- All Rights Reserved Reading location - IP/workstation name: [email or web address]
[2017-12-29] MEDS ORDERED: ALBUMIN HUMAN IV ONE (18:10)
[2017-12-29] MEDS ORDERED: HEPARIN SODIUM,PORCINE/D5W 25,000 UNIT/250 ML RTUINJ IV ONE (18:12)
[2017-12-29 19:12] LABS: PROTHROMBIN TIME 17.9 SEC (11.4-15.4)
[2017-12-29 19:13] LABS: PARTIAL THROMBOPLASTIN TIME 37.6 SEC (23.5-35.8)
[2017-12-29 19:38] LABS: CREATINE KINASE MB 0.31 ng/mL (<4.55)
[2017-12-29 19:41] LABS: TROPONIN I < 0.012 ng/mL
--- NOTE | 2017-12-29 19:47 | RADIOLOGY REPORT (SQ) ---
EXAM DESCRIPTION: CHEST SINGLE VIEW COMPLETED DATE/TIME: 12/29/2017 6:23 pm REASON FOR STUDY: CHEST PAIN COMPARISON: 12/25/2017 EXAM PARAMETERS: NUMBER OF VIEWS: One view. TECHNIQUE: Single frontal radiographic view of the chest acquired. RADIATION DOSE: NA LIMITATIONS: None. FINDINGS: LUNGS AND PLEURA: Stable pulmonary exam with left mid lung atelectasis. No large pleural effusion or pneumothorax evident. MEDIASTINUM AND HILAR STRUCTURES: Stable. HEART AND VASCULAR STRUCTURES: Stable cardiomegaly. Slightly decreased central vascular congestion. BONES: No acute findings. HARDWARE: Midline surgical changes. OTHER: No other significant finding. IMPRESSION: Somewhat improved appearance of the chest demonstrating persistent cardiomegaly, but wit h slightly decreased central vascular congestion. TECHNICAL DOCUMENTATION: JOB ID: [id number] [employer]- All Rights Reserved Reading location - IP/workstation name: [email or web address]
--- NOTE | 2017-12-29 20:49 | EKG REPORT ---
SEVERITY:- ABNORMAL ECG - SINUS RHYTHM VENTRICULAR BIGEMINY NONSPECIFIC INTRAVENTRICULAR CONDUCTION DELAY BORDERLINE R WAVE PROGRESSION, ANTERIOR LEADS : Confirmed by: Irma Hitchcock 29-Dec-2017 20:47:45
--- NOTE | 2017-12-29 20:49 | EKG REPORT ---
SEVERITY:- ABNORMAL ECG - SINUS RHYTHM NONSPECIFIC INTRAVENTRICULAR CONDUCTION DELAY BORDERLINE R WAVE PROGRESSION, ANTERIOR LEADS : Confirmed by: Irma Hitchcock 29-Dec-2017 20:48:00
[2017-12-29] MEDS ORDERED: HEPARIN SODIUM,PORCINE/D5W 25,000 UNIT/250 ML RTUINJ IV PRN (21:00)
[2017-12-29] MEDS ORDERED: HEPARIN SOD (PORCINE) 1,000 UNIT/ML 10 ML VIAL IV PRN (21:00)
[2017-12-29] MEDS: ATORVASTATIN CALCIUM 10 MG TABLET PO SCH (21:19)
[2017-12-30 01:16] LABS: CREATINE KINASE MB 0.28 ng/mL (<4.55)
[2017-12-30 01:20] LABS: TROPONIN I < 0.012 ng/mL
[2017-12-30 02:07] VITALS: BP 111/60
[2017-12-30] MEDS: ONDANSETRON HCL INJ/PF 4 MG/2 ML SDV IV PRN (03:27)
[2017-12-30] MEDS ORDERED: ATROPINE SULFATE INJ 1 MG/10 ML DISP.SYRIN IV ONE ×3 (05:23→05:54)
[2017-12-30] MEDS ORDERED: FENTANYL CITRATE INJ/PF 100 MCG/2 ML AMPUL ONE (05:35)
[2017-12-30 05:43] LABS: ABSOLUTE EOSINOPHILS # (AUTO) 0.1 10^3/uL (0.0-0.6); ABSOLUTE LYMPHOCYTES (AUTO) 0.8 10^3/uL (0.5-4.7); ABSOLUTE MONOCYTES (AUTO) 0.7 10^3/uL (0.1-1.4); ABSOLUTE NEUT (AUTO) 4.7 10^3/uL (1.7-8.2); BASOPHILS % (AUTO) 0.3 % (0-2); EOSINOPHILS % (AUTO) 2.2 % (0-6); HEMATOCRIT 27.3 % (36.0-47.0); LYMPHOCYTES % (AUTO) 12.7 % (13-45); MEAN CORPUSCULAR HEMOGLOBIN 29.2 pg (27.0-33.4); MONOCYTES % (AUTO) 11.4 % (3-13); PLATELET COUNT 212 10^3/uL (150-450); RED BLOOD COUNT 2.74 10^6/uL (3.72-5.28); RED CELL DISTRIBUTION WIDTH 19.7 % (11.5-14.0); SEGMENTED NEUTROPHILS % (AUTO) 73.4 % (42-78); TOTAL CELLS COUNTED % (AUTO) 100 %; WHITE BLOOD COUNT 6.4 10^3/uL (4.0-10.5)
[2017-12-30] MEDS ORDERED: DOBUTAMINE HCL/D5W 500 MG/250 ML RTUINJ IV ONE (05:52)
[2017-12-30] MEDS ORDERED: EPINEPHRINE INJ 1 MG/10 ML DISP.SYRIN ONE (05:57)
[2017-12-30] MEDS ORDERED: EPINEPHRINE INJ/PF 1 MG/1 ML AMPULE ONE ×3 (05:57→07:34)
--- NOTE | 2017-12-30 05:59 | PDOC TRANSFER SUMMARY ---
General Admission Date/PCP: 12/26/17 01:50 STEPHAN TAFOYA Transfer Date: 12/30/17 Accepting Facility: REPLACED BY [facility] Resuscitation Status: Full Code - Transfer Diagnosis (1) Abdominal pain Is this a current diagnosis for this admission?: Yes Diagnosis Summary: Colitis versus cholelithiasis Currently follow with the surgery (2) Colitis presumed infectious Is this a current diagnosis for this admission?: Yes Diagnosis Summary: Continues to the IV antibiotic (3) Acute on chronic combined systolic and diastolic CHF, NYHA class 3 Is this a current diagnosis for this admission?: Yes (4) Acute renal failure Is this a current diagnosis for this admission?: Yes (5) Anemia of chronic disease Is this a current diagnosis for this admission?: Yes (6) COPD (chronic obstructive pulmonary disease) Is this a current diagnosis for this admission?: Yes (7) Coronary artery disease Is this a current diagnosis for this admission?: Yes (8) Diabetes mellitus type 2 in obese Is this a current diagnosis for this admission?: Yes (9) Hypertension Is this a current diagnosis for this admission?: Yes (10) Complete heart block Is this a current diagnosis for this admission?: Yes Diagnosis Summary: Patient was given the atropine 2 mg and also temporary pacing and transferred to the tertiary center - Transfer Medications Home Medications: Aspirin [Aspirin EC] 81 mg PO DAILY 12/10/17 Carvedilol [Coreg 6.25 mg Tablet] 6.25 mg PO Q12 12/10/17 Digoxin [Lanoxin] 125 mcg PO DAILY 12/10/17 Gabapentin [Neurontin 300 mg Capsule] 300 mg PO Q6 12/10/17 Hydralazine HCl [Apresoline 50 mg Tablet] 50 mg PO Q8 12/10/17 Insulin Detemir [Levemir Flextouch] 50 unit SQ Q12 12/10/17 Insulin Lispro [Humalog Insulin (Lispro) 100 unit/mL] 0 unit SUBCUT .SLIDING SCALE 12/10/17 Isosorbide Mononitrate [Ismo 20 mg Tablet] 20 mg PO Q8 12/10/17 Nitroglycerin [Nitrostat 0.4 mg (1/150 Gr) Tabs 25/Bottle] 1 tab SL Q5MP PRN 10/22 Oxycodone HCl [Oxycodone HCl 10 MG Tablet] 10 mg PO Q6HP PRN 12/10/17 Pravastatin Sodium [Pravachol] 20 mg PO QHS 12/10/17 Sacubitril/Valsartan [Entresto 97 mg/103 mg Tablet] 1 tab PO Q12 12/10/17 Amlodipine Besylate [Norvasc 10 mg Tablet] 10 mg PO DAILY 12/26/17 Apixaban [Eliquis 2.5 mg Tablet] 2.5 mg PO DAILY 12/26/17 Ranolazine [Ranexa] 500 mg PO BID 12/26/17 Transfer Medications: Current Medications Amlodipine Besylate (Norvasc 10 Mg Tablet) 10 mg PO DAILY [facility] Stop: 01/26/18 09:59 Last Admin: 12/29/17 09:11 Dose: Not Given Aspirin (Ecotrin 81 Mg Ec Tablet) 81 mg PO DAILY [facility] Stop: 01/26/18 09:59 Last Admin: 12/29/17 09:16 Dose: 81 mg Atorvastatin Calcium (Lipitor 10 Mg Tablet) 5 mg PO QHS [facility] Stop: 01/25/18 21:59 Last Admin: 12/29/17 21:19 Dose: Not Given Dextrose (Dextrose Inj 50% Syringe (25 Gm/50 Ml)) 12.5 gm IV PRN PRN; Protocol PRN Reason: FOR BG 50-69 IN ALERT PATIENT Stop: 01/25/18 02:00 Last Admin: 12/28/17 12:56 Dose: 12.5 gm Dextrose (Dextrose Inj 50% Syringe (25 Gm/50 Ml)) 25 gm IV PRN PRN; Protocol PRN Reason: See Label Comments Stop: 01/25/18 02:00 Gabapentin (Neurontin 300 Mg Capsule) 300 mg PO Q6 [facility] Stop: 01/26/18 00:00 Last Admin: 12/29/17 23:04 Dose: 300 mg Glucagon (Glucagen Inj 1 Mg Vial) 1 mg SUBCUT PRN PRN; Protocol PRN Reason: Evaluate for BG < 70 Stop: 01/25/18 02:00 Glucose (Glutose 40% Gel 15 Gm Tube) 15 gm PO PRN PRN; Protocol PRN Reason: For BG 50-69 in Alert Patient Stop: 01/25/18 02:00 Last Admin: 12/28/17 06:06 Dose: 15 gm Glucose (Glutose 40% Gel 15 Gm Tube) 30 gm PO PRN PRN; Protocol PRN Reason: FOR BG < 50 IN ALERT PATIENT Stop: 01/25/18 02:00 Heparin Sodium (Porcine) (Heparin Inj 1,000 Unit/Ml 10 Ml Vial) 0 - 12,000 unit IV .BOLUS PER PROTOCOL PRN; Protocol PRN Reason: RESPOND TO aPTT VALUES Stop: 01/28/18 20:59 Hydralazine HCl (Apresoline 50 Mg Tablet) 50 mg PO Q8 [facility] Stop: 01/25/18 21:59 Last Admin: 12/29/17 21:17 Dose: Not Given Metronidazole (Flagyl Rtu 500 Mg/Ns 100ml Premix) 500 mg in 100 mls @ 100 mls/ hr IV Q6 [facility] Stop: 01/02/18 11:59 Last Infusion: 12/30/17 00:13 Dose: Infused Dextrose/Sodium Chloride (D5ns 1000 Ml Iv Soln) 1,000 mls @ 125 mls/hr IV CONTINUOUS PRN PRN Reason: THIS MED IS NOT "PRN" Stop: 01/27/18 15:18 Last Infusion: 12/30/17 00:14 Dose: 125 mls/hr Levofloxacin/Dextrose (Levaquin Rtu 250 Mg/D5w 50 Ml Premix) 250 mg in 50 mls @ 50 mls/hr IV Q48H [facility] Stop: 01/05/18 21:59 Last Infusion: 12/29/17 22:15 Dose: Infused Heparin Sodium/Dextrose (Heparin Rtu 25,000 Unit/250 Ml D5w Premix) 25,000 unit in 250 mls @ 0 mls/hr IV CONTINUOUS PRN; Protocol; Titrate PRN Reason: THIS MED IS NOT "PRN" Stop: 01/28/18 20:59 Last Titration: 12/30/17 02:13 Dose: 14.55 mls/hr, 14.55 mls/hr Insulin Human Lispro (Humalog Insulin 100 Unit/1 Ml 3 Ml Vial) 0 unit SUBCUT ACHS [facility] PRN Reason: Protocol Stop: 01/25/18 15:59 Last Admin: 12/29/17 21:18 Dose: Not Given Isosorbide Mononitrate (Ismo 20 Mg Tablet) 20 mg PO Q8 [facility] Stop: 01/25/18 21:59 Last Admin: 12/29/17 21:18 Dose: Not Given Nitroglycerin (Nitrostat 0.4 Mg (1/150 Gr) Tabs 25/Bottle) 1 tab SL Q5MP PRN PRN Reason: FOR CHEST PAIN Stop: 01/25/18 20:20 Ondansetron HCl (Zofran Inj/Pf 4 Mg/2 Ml Sdv) 4 mg IV Q6HP PRN PRN Reason: NAUSEA Stop: 01/28/18 09:30 Last Admin: 12/30/17 03:27 Dose: 4 mg Oxycodone/Acetaminophen (Percocet 5-325 Mg Tablet) 1 tab PO Q4HP PRN PRN Reason: FOR PAIN Stop: 01/02/18 20:25 Last Admin: 12/29/17 23:04 Dose: 1 tab Pantoprazole Sodium (Protonix Iv Inj 40 Mg Vial) 40 mg IV DAILY [facility] Stop: 01/01/18 09:59 Last Admin: 12/29/17 11:11 Dose: 40 mg Ranolazine (Ranexa 500 Mg Tab.Sr) 500 mg PO BID [facility] Stop: 01/26/18 09:59 Last Admin: 12/29/17 18:32 Dose: 500 mg Sodium Chloride (Saline Flush 2.5 Ml Monoject Prefil Syrin) 2.5 ml IV Q8 [facility] Stop: 01/25/18 05:59 Last Admin: 12/29/17 21:18 Dose: Not Given - Allergies Allergies/Adverse Reactions: pregabalin [From Lyrica] Allergy (Verified 12/25/17 18:46) Swelling of hands and face Hospital Course Hospital Course: This is a 62-year-old female of Dr. Tafoya admitting in the hospitals for the abdominal pain with possible colitis versus cholelithiasis Patient also significant history of coronary artery disease with the history of the congestive heart failure with a history of the chronic A. fib and multiple other comorbidity was initially started on IV antibiotics seen by general surgery and suggest a continuous IV antibiotic no need for the surgical interventions Patient's earlier today was complaints of chest pain and cardiology was consulted have a similar EKG and cardiac enzyme was done was all negative Patient's early this morning noticed a heart rate running is between 20-30 range and patient was symptomatic but not feeling well patient was transported to the intensive care unit and given atropine 2 mg and patient also put in a temporary pacing As per cardiology is seen Dr. Hitchcock here suggested transfer the patient's to the tertiary center for permanent pacemaking and further evaluations Patients also have a significant history of the coronary disease congestive heart failure with EF low normal side Physical Exam Vital Signs: Temp Pulse Resp BP Pulse Ox 97.5 F 57 L 19 111/60 98 12/29/17 22:59 12/30/17 02:00 12/29/17 22:59 12/29/17 22:59 12/30/17 00:15 Intake & Output 12/28/17 12/29/17 12/30/17 06:59 06:59 06:59 Intake Total 1254 1466 2092 Output Total 100 Balance 1254 1466 1991 Weight 113.2 kg 112.3 kg General appearance: PRESENT: no acute distress Head exam: PRESENT: normocephalic Eye exam: PRESENT: PERRLA Respiratory exam: PRESENT: decreased breath sounds Cardiovascular exam: PRESENT: +S1, +S2 Neurological exam: PRESENT: alert, awake Skin exam: PRESENT: dry Results Laboratory Results: 12/29/17 12/29/17 08:16 12:22 Sodium 140.7 140.2 Potassium 4.6 4.6 Chloride 107 108 H Carbon Dioxide 18 L 19 L Anion Gap 16 13 BUN 42 H 43 H Creatinine 3.15 H 3.32 H Est GFR ( Amer) 18 L 17 L Est GFR (Non-Af Amer) 15 L 14 L Glucose 114 H 130 H Calcium 8.6 8.4 Total Bilirubin 0.9 AST 13 L ALT 20 Alkaline Phosphatase 268 H Total Protein 6.6 Albumin 2.6 L 12/26/17 12/26/17 12/26/17 03:46 10:29 15:38 Creatine Kinase CK-MB (CK-2) Troponin I < 0.012 < 0.012 < 0.012 NT-Pro-B Natriuret Pep 12/27/17 12/29/17 12/29/17 05:38 12:22 12:22 Creatine Kinase < 20 L CK-MB (CK-2) 0.22 Troponin I < 0.012 NT-Pro-B Natriuret Pep 5740 H 12/29/17 12/29/17 12/29/17 18:52 18:52 22:55 Creatine Kinase < 20 L < 20 L CK-MB (CK-2) 0.31 Troponin I < 0.012 NT-Pro-B Natriuret Pep 12/29/17 22:55 Creatine Kinase CK-MB (CK-2) 0.28 Troponin I < 0.012 NT-Pro-B Natriuret Pep Impressions: Abdomen/Pelvis CT 12/25/17 19:12 IMPRESSION: 1. Small amount of ascites which is increased from the comparison study. 2. Redemonstrated mild wall thickening of the sigmoid colon as well as interval development of mild wall thickening of loops of small bowel in the mid abdomen. These findings could be seen with enterocolitis of infectious or inflammatory etiology. 3. Redemonstrated retroperitoneal lymphadenopathy is stable. 4. Bibasilar airspace opacities may relate to atelectasis however pneumonia or aspiration could provide a similar appearance. Small left pleural effusion. 5. Diverticulosis without evidence of acute diverticulitis. This exam was performed according to our departmental dose-optimization program, which includes automated exposure control, adjustment of the mA and/or kV according to patient size and/or use of iterative reconstruction technique. Abdomen Ultrasound 12/29/17 00:00 IMPRESSION: 1. Perihepatic fluid of unknown etiology. 2. Cholelithiasis without sonographic findings of cholecystitis. Chest X-Ray 12/29/17 00:00 IMPRESSION: Somewhat improved appearance of the chest demonstrating persistent cardiomegaly, but with slightly decreased central vascular congestion. Lung Scan-VQ NM 12/29/17 00:00 IMPRESSION: NORMAL VENTILATION-PERFUSION LUNG SCAN. NEGATIVE FOR PULMONARY EMBOLI. Plan Time Spent: Greater than 30 Minutes - Patient was transported to the [facility]
[2017-12-30 06:33] LABS: MEAN CORPUSCULAR VOLUME 100 fl (80-97)
[2017-12-30 06:34] LABS: MEAN CORPUSCULAR HGB CONC 29.4 g/dL (32.0-36.0)
[2017-12-30] MEDS ORDERED: LIDOCAINE 1% INJ-PF (10 MG/ML) 30 ML SDV ONE (06:36)
[2017-12-30 07:42] LABS: ANION GAP 12 (5-19); BLOOD UREA NITROGEN 44 mg/dL (7-20); CALCIUM 8.3 mg/dL (8.4-10.2); CARBON DIOXIDE 21 mmol/L (22-30); CHLORIDE 108 mmol/L (98-107); DIGOXIN 1.43 ng/mL (0.8-2.0); GLUCOSE 190 mg/dL (75-110); POTASSIUM 4.8 mmol/L (3.6-5.0); SODIUM 141.3 mmol/L (137-145)
[2017-12-30 07:53] LABS: ARTERIAL BLOOD BASE EXCESS -6.1 mmol/L; ARTERIAL BLOOD H2CO3 1.78 mmol/L (1.05-1.35); ARTERIAL BLOOD HCO3 22.4 mmol/L (20-26); ARTERIAL BLOOD O2 SATURATION 95.5 % (94-98); ARTERIAL BLOOD PCO2 59.2 mmHg (35-45); ARTERIAL BLOOD PO2 95.9 mmHg (80-100); ARTERIAL BLOOD TOTAL CO2 24.2 mmol/L (21-25)
[2017-12-30 07:54] LABS: ARTERIAL BLOOD FIO2 ROOM AIR
--- NOTE | 2017-12-30 08:44 | PDOC PROGRESS REPORT ---
Subjective Progress Note for:: 12/30/17 Subjective:: Patient is noted to be not feeling well with some nausea. Patient was noted to have severe bradycardia with heart rate in the 20s. Blood pressure however was noted to be stable. Patient was subsequently moved to the intensive care unit. I got a call from Dr. Vaz about this patient at around 5:30 in the morning. I arrived to the intensive care unit. Patient was being paced externally. There was some inconsistent capture initially. Patient was also noted to be slightly hypotensive with blood pressure in the 80s. Patient was mentating but very lethargic. Labs were ordered but somehow results did not come through. It was felt that patient will need temporary pacemaker. However patient was on heparin drip. Patient was on heparin drip because of suspected acute coronary syndrome. It was felt that the only safe access to central venous system will be through the common femoral vein. Patient was also noted to be in mild respiratory distress and unable to lay flat. While these decisions will be made , patient given up to total of 2 mg of atropine which he just transiently improve the heart rate but it went down again. It was felt that patient will need epinephrine drip. However patient was very hypotensive therefore patient received 1 mg of IV epinephrine subsequently patient was noted to have some runs of wide-complex tachycardia. It was noted at the same time that patient was on dobutamine drip at 5 mics. Patient has a history of CHF. Patient was given 1 unsynchronized shock because of presumed ventricular tachycardia. Patient responded. Preparations were then made for placement of temporary pacemaker. However the unit did not have fluoroscopy capable beds. Also the Forging Roll Operator not available. It was felt that a fluoroscopy unit will be needed to put in a temporary pacemaker. In the meantime arrangements were being made for patient to be transferred to tertiary care for cardiac catheterization, possible need for permanent pacemaker. Dr. Vaz had talked with both [facility] and [facility] and patient was subsequently accepted at [facility]. Initially it was related that the transport will be available within 20 minutes and that patient will go via air ambulance however subsequently we were informed that there were no air ambulance service available because of inclement weather. At this point patient was noted to be capturing consistently and was noted to have stable blood pressure. However, it was felt that central venous access will be needed. In this regard, I placed under sterile precaution and condition, a triple-lumen central venous catheter in the right common femoral vein. I also placed a 8 English Cordis catheter in the same right common femoral vein in preparation for temporary pacemaker. However we just could not get hold of a fluid of bed for quite some time and also fluoroscopy unit was not available. Patient was however noted to be capturing consistently from external pacemaker and also had her own intrinsic heart rhythm. Blood pressure noted to be in the 120s-130s systolic on the monitor. At this time, transportation to [facility] by ground arrived. The crew felt comfortable, transporting her without temporary pacemaker and with external pacemaker consistently capturing to the [facility]. Patient had a ready bed. The last blood pressure before patient left, blood pressure in the 120s, heart rate in the 60s intrinsic. Labs were drawn from central line but at the time of transport there were still pending. Possibility of digoxin toxicity and hyperkalemia as well as significant acidosis causing the cardiac dysrhythmia problem could not be ruled out as lab work was not available at the time of transport. Subsequently it was noted that patient had combined metabolic and respiratory acidosis and orders were given by Dr. Vaz to start sodium bicarb drip via telephone order to unit nurses. I was at bedside for more than an hour coordinating care. Reason For Visit: HEART FAILURE Physical Exam Vital Signs: Temp Pulse Resp BP Pulse Ox 97.5 F 57 L 19 111/60 98 12/29/17 22:59 12/30/17 02:00 12/29/17 22:59 12/29/17 22:59 12/30/17 00:15 Intake & Output 12/29/17 12/30/17 12/31/17 06:59 06:59 06:59 Intake Total 1466 2092 Output Total 100 Balance 1466 1991 Weight 112.3 kg General appearance: PRESENT: cooperative Exam: GENERAL: well-nourished and in no acute distress. Orientation not checked but patient alert and following commands. HEAD: Atraumatic, normocephalic. EYES: Pupils equal round and reactive to light, extraocular movements intact, sclera anicteric, conjunctiva are normal. ENT: TMs normal, nares patent, oropharynx clear without exudates. Moist mucous membranes. No oral ulcerations or bleeding gums noted NECK: supple without lymphadenopathy. Trachea is central. No cervical or axillary lymphadenopathy noted. Carotids are 2+, JVD noted to be distended. LUNGS: Respiration seems nonlabored, no significant accessory muscle action noted. Bilateral fine crackles were noted. No wheezes rales or rhonchi noted. No significant dullness noted on percussion. CHEST: Palpation of the chest wall shows no significant chest wall tenderness. HEART: [place] [employer], No PSH, 2/6 KASSY aortic area, 1/6 zacarias systolic murmur mitral area, no rubs, no gallops. ABDOMEN: Soft, mild diffuse tenderness appreciated, normoactive bowel sounds. No guarding, no rebound. No rigidity noted . No masses appreciated. EXTREMITIES: Pedal pulses are 1-2+, no calf tenderness noted. No clubbing or cyanosis. negative pedal edema noted NEUROLOGICAL: Focused neurological exam showed no significant neurologic deficit. Normal speech, no focal weakness appreciated. PSYCH: Normal mood, normal affect. Not checked SKIN: No significant ecchymosis, skin is noted to be warm. MUSCULOSKELETAL EXAM: No significant acute joint swelling noted. Results Laboratory Results: 12/30/17 05:05 12/30/17 06:55 12/29/17 12/29/17 12/30/17 08:16 12:22 05:05 WBC RBC Hgb Hct MCV MCH MCHC RDW Plt Count Seg Neutrophils % Lymphocytes % Monocytes % Eosinophils % Basophils % Absolute Neutrophils Absolute Lymphocytes Absolute Monocytes Absolute Eosinophils Absolute Basophils Carbonic Acid HCO3/H2CO3 Ratio ABG pH ABG pCO2 ABG pO2 ABG HCO3 ABG O2 Saturation ABG Base Excess FiO2 Sodium 140.7 140.2 Cancelled Potassium 4.6 4.6 Cancelled Chloride 107 108 H Cancelled Carbon Dioxide 18 L 19 L Cancelled Anion Gap 16 13 Cancelled BUN 42 H 43 H Cancelled Creatinine 3.15 H 3.32 H Cancelled Est GFR ( Amer) 18 L 17 L Cancelled Est GFR (Non-Af Amer) 15 L 14 L Cancelled Glucose 114 H 130 H Cancelled Calcium 8.6 8.4 Cancelled Magnesium Cancelled Total Bilirubin 0.9 AST 13 L ALT 20 Alkaline Phosphatase 268 H Total Protein 6.6 Albumin 2.6 L 12/30/17 12/30/17 12/30/17 05:05 06:55 07:05 WBC 6.4 RBC 2.74 L Hgb 8.0 L Hct 27.3 L MCV 100 H D MCH 29.2 MCHC 29.4 L RDW 19.7 H Plt Count 212 Seg Neutrophils % 73.4 Lymphocytes % 12.7 L Monocytes % 11.4 Eosinophils % 2.2 Basophils % 0.3 Absolute Neutrophils 4.7 Absolute Lymphocytes 0.8 Absolute Monocytes 0.7 Absolute Eosinophils 0.1 Absolute Basophils 0.0 Carbonic Acid 1.78 H HCO3/H2CO3 Ratio 12:1 ABG pH 7.20 L* ABG pCO2 59.2 H ABG pO2 95.9 ABG HCO3 22.4 ABG O2 Saturation 95.5 ABG Base Excess -6.1 FiO2 ROOM AIR Sodium 141.3 Potassium 4.8 Chloride 108 H Carbon Dioxide 21 L Anion Gap 12 BUN 44 H Creatinine 3.58 H Est GFR ( Amer) 16 L Est GFR (Non-Af Amer) 13 L Glucose 190 H Calcium 8.3 L Magnesium 1.9 Total Bilirubin AST ALT Alkaline Phosphatase Total Protein Albumin 12/26/17 12/26/17 12/26/17 03:46 10:29 15:38 Creatine Kinase CK-MB (CK-2) Troponin I < 0.012 < 0.012 < 0.012 NT-Pro-B Natriuret Pep 12/27/17 12/29/17 12/29/17 05:38 12:22 12:22 Creatine Kinase < 20 L CK-MB (CK-2) 0.22 Troponin I < 0.012 NT-Pro-B Natriuret Pep 5740 H 12/29/17 12/29/17 12/29/17 18:52 18:52 22:55 Creatine Kinase < 20 L < 20 L CK-MB (CK-2) 0.31 Troponin I < 0.012 NT-Pro-B Natriuret Pep 12/29/17 12/30/17 12/30/17 22:55 06:55 06:55 Creatine Kinase < 20 L CK-MB (CK-2) 0.28 0.47 Troponin I < 0.012 Cancelled NT-Pro-B Natriuret Pep 12/30/17 06:55 Creatine Kinase CK-MB (CK-2) Troponin I < 0.012 NT-Pro-B Natriuret Pep EKG Comments: Complete heart block with narrow complex escape Impressions: Abdomen/Pelvis CT 12/25/17 19:12 IMPRESSION: 1. Small amount of ascites which is increased from the comparison study. 2. Redemonstrated mild wall thickening of the sigmoid colon as well as interval development of mild wall thickening of loops of small bowel in the mid abdomen. These findings could be seen with enterocolitis of infectious or inflammatory etiology. 3. Redemonstrated retroperitoneal lymphadenopathy is stable. 4. Bibasilar airspace opacities may relate to atelectasis however pneumonia or aspiration could provide a similar appearance. Small left pleural effusion. 5. Diverticulosis without evidence of acute diverticulitis. This exam was performed according to our departmental dose-optimization program, which includes automated exposure control, adjustment of the mA and/or kV according to patient size and/or use of iterative reconstruction technique. Abdomen Ultrasound 12/29/17 00:00 IMPRESSION: 1. Perihepatic fluid of unknown etiology. 2. Cholelithiasis without sonographic findings of cholecystitis. Chest X-Ray 12/29/17 00:00 IMPRESSION: Somewhat improved appearance of the chest demonstrating persistent cardiomegaly, but with slightly decreased central vascular congestion. Lung Scan-VQ NM 12/29/17 00:00 IMPRESSION: NORMAL VENTILATION-PERFUSION LUNG SCAN. NEGATIVE FOR PULMONARY EMBOLI. Assessment & Plan - Diagnosis (1) Chest pain Qualifiers: Chest pain type: unspecified Qualified Code(s): R07.9 - Chest pain, unspecified Is this a current diagnosis for this admission?: Yes (2) COPD (chronic obstructive pulmonary disease) Qualifiers: COPD type: unspecified COPD Qualified Code(s): J44.9 - Chronic obstructive pulmonary disease, unspecified Is this a current diagnosis for this admission?: Yes (3) Congestive heart failure (CHF) Is this a current diagnosis for this admission?: Yes (4) Diabetes mellitus type 2 in obese Is this a current diagnosis for this admission?: Yes (5) Hypertension Qualifiers: Hypertension type: essential hypertension Qualified Code(s): I10 - Essential (primary) hypertension Is this a current diagnosis for this admission?: Yes (6) Morbid obesity with BMI of 40.0-44.9, adult Is this a current diagnosis for this admission?: Yes (7) PVD (peripheral vascular disease) Is this a current diagnosis for this admission?: Yes (8) Shortness of breath Is this a current diagnosis for this admission?: Yes (9) CAD (coronary artery disease) Qualifiers: Coronary Disease-Associated Artery/Lesion type: unspecified vessel or lesion type [place] vs. transplanted heart: circle heart Associated angina: without angina Qualified Code(s): I25.10 - Atherosclerotic heart disease of circle coronary artery without angina pectoris Is this a current diagnosis for this admission?: Yes (10) HLD (hyperlipidemia) Qualifiers: Hyperlipidemia type: pure hypercholesterolemia Qualified Code(s): E78.00 - Pure hypercholesterolemia, unspecified Is this a current diagnosis for this admission?: Yes - Notes Notes: Please see plans under subjective. Patient had triple-lumen central venous catheter placed in the right common femoral vein. In addition patient had a 8 English Cordis sheath placed in the same vein. Patient being transported to [facility]. - Time Critical Time spent with patient: Greater than 35 minutes - When lab becomes available, these were reviewed. Medications reviewed and adjusted accordingly: Yes
--- NOTE | 2017-12-31 07:50 | EKG REPORT ---
SEVERITY:- ABNORMAL ECG - ATRIAL FIBRILLATION WITH HIGH GRADE AVB BORDERLINE R WAVE PROGRESSION, ANTERIOR LEADS NONSPECIFIC T ABNORMALITIES, ANT-LAT LEADS : Confirmed by: Yobany Marino MD 31-Dec-2017 07:49:26
--- NOTE | 2017-12-31 19:36 | Operative Report ---
Bedside Procedure - History of Present Illness Indication for Procedure: Complete heart block Surgeon: SHIVAM AMES - Central Line Right Femoral Consent obtained: Yes - Verbal Central line pre-insertion: Sterile PPE donned, Chloraprep applied, Sterile drapes applied Central line lumen type: Cordis/Introducer - Patient also had a triple-lumen placed initially for use for epinephrine drip and subsequently had a Cordis catheter placed for temporary pacemaker which ultimately did not need to be done. Ultrasound guided: No Line secured with sutures: Yes Central line post-insertion: Blood return from lumens Complications: No
== END 2017-12-30 07:45 | disposition short-term general hospital (02) | DRG 391 ==
LOC: ER 17:10 → EH 12-26 01:50 → 4S 12-26 16:21 → ICU 12-30 05:16
PROVIDERS: ADMIT Internal Medicine Geriatric Medicine; ATTEND Internal Medicine Geriatric Medicine
PROC: 06HY33Z Insertion of Infusion Device into Lower Vein, Percutaneous Approach (ICD-10-PCS; principal; 2017-12-30)
DX: K57.90 Diverticulosis of intestine, part unspecified, without perforation or abscess without bleeding (principal); I50.43 Acute on chronic combined systolic (congestive) and diastolic (congestive) heart failure; A09 Infectious gastroenteritis and colitis, unspecified; I44.2 Atrioventricular block, complete; L97.429 Non-pressure chronic ulcer of left heel and midfoot with unspecified severity; I82.412 Acute embolism and thrombosis of left femoral vein; N17.9 Acute kidney failure, unspecified; Z68.41 Body mass index [BMI] 40.0-44.9, adult; K80.20 Calculus of gallbladder without cholecystitis without obstruction; R10.84 Generalized abdominal pain; E11.621 Type 2 diabetes mellitus with foot ulcer; I11.0 Hypertensive heart disease with heart failure; I73.9 Peripheral vascular disease, unspecified; D64.9 Anemia, unspecified; I48.2 Chronic atrial fibrillation; I95.9 Hypotension, unspecified; E78.5 Hyperlipidemia, unspecified; I25.118 Atherosclerotic heart disease of native coronary artery with other forms of angina pectoris; K21.9 Gastro-esophageal reflux disease without esophagitis; G89.4 Chronic pain syndrome; R62.7 Adult failure to thrive; E66.01 Morbid (severe) obesity due to excess calories; I25.2 Old myocardial infarction; Z79.01 Long term (current) use of anticoagulants; Z79.82 Long term (current) use of aspirin; Z79.4 Long term (current) use of insulin; Z79.891 Long term (current) use of opiate analgesic; Z79.899 Other long term (current) drug therapy; Z86.73 Personal history of transient ischemic attack (TIA), and cerebral infarction without residual deficits
CPT/HCPCS: 36415; 51701; 71045; 74177; 76705; 78582; 80048; 80053; 80162; 81001; 82550; 82553; 82803; 82962; 83690; 83735; 83880; 84484; 85025; 85610; 85730; 87040; 87077; 87186; 93005; 93010; 96374; 96375; 99285; A9540; A9567; C1751; C1894; J0744; J1170; J1644; J1650; J1815; J1940; J1956; J2405; J3490; J7030; Q9969; S0164

== ENCOUNTER 2018-10-11 04:13 | Inpatient (IN) | payer MEDICARE, MEDICAID ==
--- NOTE | 2018-10-11 04:49 | RADIOLOGY REPORT (SQ) ---
EXAM DESCRIPTION: XR CHEST 1 VIEW COMPLETED DATE/TME: 10/11/2018 04:15 CLINICAL HISTORY: 63 years Female, difficulty breathing COMPARISON: 08/29/17 NUMBER OF VIEWS/TECHNIQUE: 1/AP FINDINGS: Mild/moderate mixed interstitial and airspace opacity. Adequate lung volume, moderately enlarged cardiac silhouette, and sternotomy. IMPRESSION: Mild-moderate mixed interstitial and airspace opacities. Differential diagnosis includes CHF/pulmonary edema, multifocal pneumonia, and chronic interstitial lung disease.
[2018-10-11] MEDS ORDERED: IPRATROPIUM/ALBUTEROL 0.5-2.5 MG/3 ML AMPUL NEB ONE ×2 (05:18→06:37)
--- NOTE | 2018-10-11 05:20 | ER Document Report ---
Addendum entered and electronically signed by RAMONE ALDRICH PA 10/11/18 05:23: Course - Re-evaluation Re-evalutation: 10/11/18 05:22 On oxygen patient is 97 to 98%. Doing very well. Canceling DuoNeb because of no confirmed history of COPD and undifferentiated cause of her respiratory status. Original Note: ED Medical Screen (RME) - General Chief Complaint: Respiratory Distress Stated Complaint: TROUBLE BREATHING Time Seen by Provider: 10/11/18 05:08 Primary Care Provider: STEPHAN TAFOYA MD [Primary Care Provider] - Follow up as needed Notes: 63-year-old female comes by EMS for chief complaint of difficulty breathing. States this is worsened over the past couple of days. She does have lower semi- swelling. She denies fever or cough. Past medical history includes CHF, CAD, former smoker, hypertension, diabetes. TRAVEL OUTSIDE OF THE [place] IN LAST 30 DAYS: No - Related Data Allergies/Adverse Reactions: pregabalin [From [employer]] Allergy (Verified 12/25/17 18:46) Swelling of hands and face Past Medical History - Past Medical History Cardiac Medical History: Reports: Hx Congestive Heart Failure, Hx Coronary Artery Disease, Hx Heart Attack, Hx Hypercholesterolemia, Hx Hypertension, Hx Peripheral Vascular Disease Denies: Hx Atrial Fibrillation Pulmonary Medical History: Reports: Hx Bronchitis Denies: Hx Asthma, Hx COPD, Hx Pneumonia, Hx Tuberculosis Neurological Medical History: Reports: Hx Cerebrovascular Accident - 2007. Denies: Hx Seizures Endocrine Medical History: Reports: Hx Diabetes Mellitus Type 1, Hx Diabetes Mellitus Type 2 Renal/ Medical History: Denies: Hx End Stage Renal Disease, Hx Peritoneal Dialysis GI Medical History: Reports: Hx Diverticulitis - diverticulosis. Denies: Hx Gastroesophageal Reflux Disease, Hx Hiatal Hernia Musculoskeltal Medical History: Denies Hx Arthritis, Denies Hx Systemic Lupus Erythematosus Skin Medical History: Denies Hx MRSA Psychiatric Medical History: Denies: Hx Bipolar Disorder, Hx Depression Past Surgical History: Reports: Hx Cardiac Surgery - quad bypass, Hx Coronary Artery Bypass Graft - July 31 2011, Hx Tonsillectomy, Hx Vascular Surgery. Denies: Hx Appendectomy, Hx Cardiac Catheterization, Hx Section, Hx Cholecystectomy, Hx Hysterectomy, Hx Mastectomy, Hx Tubal Ligation - Immunizations Immunizations up to date: No Hx Diphtheria, Pertussis, Tetanus Vaccination: Yes History of Influenza Vaccine for 02/2017 - 07/2017 Season: Yes Influenza Administration Date for 02/2017 - 07/2017 Season: 01/05/17 Physical Exam - Respiratory Respiratory status: No respiratory distress Breath sounds: Rhonchi, Wheezing. No: Rales, Stridor - Cardiovascular Rhythm: Extrasystoles. No: Tachycardia Heart sounds: Normal auscultation, S1 appreciated, S2 appreciated Course - Re-evaluation Re-evalutation: Patient with expiratory wheezes and rhonchi on exam, no noted rales, however she does have bilateral lower extremity swelling of uncertain duration. She is borderline hypoxic at 90-91% on room air but she is not in respiratory distress. Placed on oxygen, given DuoNeb, work-up pending. I have greeted and performed a rapid initial assessment of this patient. A comprehensive ED assessment and evaluation of the patient, analysis of test results and completion of the medical decision making process will be conducted by additional ED providers. Doctor's Discharge - Discharge Referrals: STEPHAN TAFOYA MD [Primary Care Provider] - Follow up as needed
[2018-10-11 06:07] LABS: VENOUS BLOOD BASE EXCESS -1.7 mmol/L; VENOUS BLOOD PCO2 38.9 mmHg (35-63); VENOUS BLOOD PH 7.39 (7.30-7.42)
[2018-10-11 06:08] LABS: ABSOLUTE EOSINOPHILS # (AUTO) 0.1 10^3/uL (0.0-0.6); ABSOLUTE MONOCYTES (AUTO) 0.6 10^3/uL (0.1-1.4); ABSOLUTE NEUT (AUTO) 6.8 10^3/uL (1.7-8.2); BASOPHILS % (AUTO) 0.4 % (0-2); EOSINOPHILS % (AUTO) 1.2 % (0-6); HEMATOCRIT 27.4 % (36.0-47.0); LYMPHOCYTES % (AUTO) 11.3 % (13-45); MEAN CORPUSCULAR HEMOGLOBIN 29.3 pg (27.0-33.4); MEAN CORPUSCULAR HGB CONC 32.7 g/dL (32.0-36.0); MEAN CORPUSCULAR VOLUME 90 fl (80-97); MONOCYTES % (AUTO) 6.9 % (3-13); PLATELET COUNT 276 10^3/uL (150-450); RED BLOOD COUNT 3.07 10^6/uL (3.72-5.28); RED CELL DISTRIBUTION WIDTH 17.6 % (11.5-14.0); SEGMENTED NEUTROPHILS % (AUTO) 80.2 % (42-78); TOTAL CELLS COUNTED % (AUTO) 100 %; WHITE BLOOD COUNT 8.5 10^3/uL (4.0-10.5)
[2018-10-11 06:18] LABS: APPEARANCE,URINE CLOUDY; BILIRUBIN,URINE NEGATIVE (NEGATIVE); COLOR,URINE YELLOW; GLUCOSE, URINE NEGATIVE (NEGATIVE); KETONES,URINE NEGATIVE (NEGATIVE); LEUKOCYTE ESTERASE,URINE LARGE (NEGATIVE); NITRITE,URINE NEGATIVE (NEGATIVE); PROTEIN,URINE 100 mg/dL (NEGATIVE); URINE SPECIFIC GRAVITY 1.012
[2018-10-11] MEDS ORDERED: LEVOFLOXACIN 750 MG/D5W RTU 750 MG/150 ML RTUPB IV ONE (06:36)
[2018-10-11] MEDS ORDERED: FUROSEMIDE INJ/PF 40 MG/4 ML SDV IV ONE (06:37)
--- NOTE | 2018-10-11 06:41 | ER Document Report ---
ED General - General Chief Complaint: Respiratory Distress Stated Complaint: TROUBLE BREATHING Time Seen by Provider: 10/11/18 05:08 Primary Care Provider: STEPHAN TAFOYA MD [Primary Care Provider] - Follow up as needed TRAVEL OUTSIDE OF THE [place] IN LAST 30 DAYS: No - HPI Notes: Patient is a 63-year-old female that presents to the emergency department for chief complaint of shortness of breath. Patient states she became more short of breath yesterday. She does have incre ased swelling in her legs and believes that her shortness of breath is related to fluid overload. She has a history of congestive heart failure and is on Lasix 60 mg daily. Patient reports orthopnea. She also states yesterday she began coughing. Her cough is nonproductive. She denies associated fevers or chills. Patient denies history of COPD or requiring breathing treatments at home. She does state that she feels wheezy. She denies any associated chest pain, lightheadedness, diaphoresis, nausea/vomiting, numbness/weakness, and abdominal pain. Past Medical History: Congestive heart failure, hypertension Past Surgical History: Reviewed in chart Social History: Denies tobacco and alcohol use Family History: Reviewed and noncontributory for presenting illness Allergies: Reviewed, see documented allergy list. REVIEW OF SYSTEMS: CONSTITUTIONAL : No fever No chills No diaphoresis No recent illness EENT: No vision changes congestion No sore throat CARDIOVASCULAR: No chest pain No palpitations RESPIRATORY: shortness of breath cough difficulty breathing GASTROINTESTINAL: No abdominal pain No nausea No vomiting No diarrhea GENITOURINARY: No dysuria No hematuria No difficulty urinating MUSCULOSKELETAL: No back pain No leg pain No arm pain SKIN: No rashes No lesions LYMPHATIC: No swollen, enlarged glands. NEUROLOGICAL: No lightheadedness No headache No weakness No paresthesias PSYCHIATRIC: No anxiety No depression PHYSICAL EXAMINATION: Vital signs reviewed, nursing noted reviewed. GENERAL: Well-appearing, obese and in no acute distress. HEAD: Atraumatic, normocephalic. EYES: Eyes appear normal, extraocular movements intact, sclera anicteric, conjunctiva are normal. ENT: nares patent, oropharynx clear without exudates. Moist mucous membranes. NECK: Normal range of motion, supple without lymphadenopathy LUNGS: Breath sounds diminished with expiratory wheezing bilaterally, symmetric. No accessory muscle use or retractions. Tachypneic HEART: Regular rate and rhythm without murmurs ABDOMEN: Soft, nontender, normoactive bowel sounds. No rebound, guarding, or rigidity. No masses appreciated. EXTREMITIES: Nontender, good range of motion +2 pitting edema bilateral lower extremities NEUROLOGICAL: No focal neurological deficits. Moves all extremities spontaneously Motor and sensory grossly intact on exam. PSYCH: Normal mood, normal affect. SKIN: Warm, Dry, normal turgor, left foot wound - Related Data Allergies/Adverse Reactions: pregabalin [From Lyrica] Allergy (Verified 12/25/17 18:46) Swelling of hands and face Past Medical History - Social History Smoking Status: Never Smoker Family History: CAD, Hyperlipidemia, Hypertension - Past Medical History Cardiac Medical History: Reports: Hx Congestive Heart Failure, Hx Coronary Artery Disease, Hx Heart Attack, Hx Hypercholesterolemia, Hx Hypertension, Hx Peripheral Vascular Disease Denies: Hx Atrial Fibrillation Pulmonary Medical History: Reports: Hx Bronchitis Denies: Hx Asthma, Hx COPD, Hx Pneumonia, Hx Tuberculosis Neurological Medical History: Reports: Hx Cerebrovascular Accident - 2007. Denies: Hx Seizures Endocrine Medical History: Reports: Hx Diabetes Mellitus Type 1, Hx Diabetes Mellitus Type 2 Renal/ Medical History: Denies: Hx End Stage Renal Disease, Hx Peritoneal Dialysis GI Medical History: Reports: Hx Diverticulitis - diverticulosis. Denies: Hx Gastroesophageal Reflux Disease, Hx Hiatal Hernia Musculoskeletal Medical History: Denies Hx Arthritis, Denies Hx Systemic Lupus Erythematosus Skin Medical History: Denies Hx MRSA Psychiatric Medical History: Denies: Hx Bipolar Disorder, Hx Depression Past Surgical History: Reports: Hx Cardiac Surgery - quad bypass, Hx Coronary Artery Bypass Graft - July 31 2011, Hx Tonsillectomy, Hx Vascular Surgery. Denies: Hx Appendectomy, Hx Cardiac Catheterization, Hx Section, Hx Cholecystectomy, Hx Hysterectomy, Hx Mastectomy, Hx Tubal Ligation - Immunizations Immunizations up to date: No Hx Diphtheria, Pertussis, Tetanus Vaccination: Yes Hx Pneumococcal Vaccination: 02/04/11 Physical Exam - Vital signs Vitals: Resp Pulse Ox 13 95 10/11/18 04:22 10/11/18 04:22 Course - Re-evaluation Re-evalutation: 10/11/18 06:40 Vitals reviewed. Nursing notes reviewed. Patient EKG today is improved compared to 12/30/2017. There is no STEMI. Patient does have wheezing on lung exam and was given DuoNeb for symptomatic treatment. Chest x-ray shows CHF versus pneumonia versus interstitial lung disease. Patient was given a dose of IV Lasix. She does have a significant amount of lower extremity edema and orthopnea consistent with acute congestive heart failure exacerbation. Patient was also given a dose of Levaquin for complaint of cough, congestion and x-ray findings consistent with possible underlying pneumonia. She is not tachycardic or febrile. She is not meeting sepsis criteria. 10/11/18 09:02 Patient reevaluated after DuoNeb and is still having some wheezing but lung sounds have seemed to open up. She is now 89% on room air at rest and will remain on 2 L nasal cannula which has kept her oxygen saturation in the mid to high 90s. Patient's urinalysis is positive for infection which will be treated with the Levaquin. She does have elevated BNP. I feel her shortness of breath is likely related to congestive heart failure and underlying pneumonia. Patient is requiring oxygen and will be admitted to the hospital for further management. Laboratory 10/11/18 10/11/18 10/11/18 05:51 05:51 05:51 WBC 8.5 RBC 3.07 L Hgb 9.0 L Hct 27.4 L MCV 90 MCH 29.3 MCHC 32.7 RDW 17.6 H Plt Count 276 Seg Neutrophils % 80.2 H Lymphocytes % 11.3 L Monocytes % 6.9 Eosinophils % 1.2 Basophils % 0.4 Absolute Neutrophils 6.8 Absolute Lymphocytes 1.0 Absolute Monocytes 0.6 Absolute Eosinophils 0.1 Absolute Basophils 0.0 VBG pH VBG pCO2 VBG HCO3 VBG Base Excess Sodium Cancelled Potassium Cancelled Chloride Cancelled Carbon Dioxide Cancelled Anion Gap Cancelled BUN Cancelled Creatinine Cancelled Est GFR ( Amer) Cancelled Est GFR (Non-Af Amer) Cancelled Glucose Cancelled Lactic Acid Calcium Cancelled Total Bilirubin Cancelled Direct Bilirubin Cancelled Neonat Total Bilirubin Cancelled Neonat Direct Bilirubin Cancelled Neonat Indirect Bili Cancelled AST Cancelled ALT Cancelled Alkaline Phosphatase Cancelled Troponin I Cancelled NT-Pro-B Natriuret Pep Cancelled Total Protein Cancelled Albumin Cancelled Urine Color Urine Appearance Urine pH Ur Specific [place] Urine Protein Urine Glucose (UA) Urine Ketones Urine Blood Urine Nitrite Urine Bilirubin Urine Urobilinogen Ur Leukocyte Esterase Urine WBC (Auto) Urine RBC (Auto) U Hyaline Cast (Auto) Urine Bacteria (Auto) Squamous Epi Cells Auto Urine Ascorbic Acid 10/11/18 10/11/18 10/11/18 05:51 05:51 07:43 WBC RBC Hgb Hct MCV MCH MCHC RDW Plt Count Seg Neutrophils % Lymphocytes % Monocytes % Eosinophils % Basophils % Absolute Neutrophils Absolute Lymphocytes Absolute Monocytes Absolute Eosinophils Absolute Basophils VBG pH 7.39 VBG pCO2 38.9 VBG HCO3 23.0 VBG Base Excess -1.7 Sodium 143.8 Potassium 4.1 Chloride 110 H Carbon Dioxide 24 Anion Gap 10 BUN 24 H Creatinine 0.86 Est GFR ( Amer) > 60 Est GFR (Non-Af Amer) > 60 Glucose 189 H Lactic Acid Calcium 9.5 Total Bilirubin 1.3 Direct Bilirubin 0.6 H Neonat Total Bilirubin Not Reportable Neonat Direct Bilirubin Not Reportable Neonat Indirect Bili Not Reportable AST 22 ALT 15 Alkaline Phosphatase 431 H Troponin I NT-Pro-B Natriuret Pep Total Protein 8.2 Albumin 3.6 Urine Color YELLOW Urine Appearance CLOUDY Urine pH 6.0 Ur Specific [place] 1.012 Urine Protein 100 H Urine Glucose (UA) NEGATIVE Urine Ketones NEGATIVE Urine Blood LARGE H Urine Nitrite NEGATIVE Urine Bilirubin NEGATIVE Urine Urobilinogen 4.0 H Ur Leukocyte Esterase LARGE H Urine WBC (Auto) >182 Urine RBC (Auto) 94 U Hyaline Cast (Auto) 1 Urine Bacteria (Auto) 1+ Squamous Epi Cells Auto 4 Urine Ascorbic Acid 20 H 10/11/18 10/11/18 07:43 07:43 WBC RBC Hgb Hct MCV MCH MCHC RDW Plt Count Seg Neutrophils % Lymphocytes % Monocytes % Eosinophils % Basophils % Absolute Neutrophils Absolute Lymphocytes Absolute Monocytes Absolute Eosinophils Absolute Basophils VBG pH VBG pCO2 VBG HCO3 VBG Base Excess Sodium Potassium Chloride Carbon Dioxide Anion Gap BUN Creatinine Est GFR ( Amer) Est GFR (Non-Af Amer) Glucose Lactic Acid 0.9 Calcium Total Bilirubin Direct Bilirubin Neonat Total Bilirubin Neonat Direct Bilirubin Neonat Indirect Bili AST ALT Alkaline Phosphatase Troponin I < 0.012 NT-Pro-B Natriuret Pep 2900 H Total Protein Albumin Urine Color Urine Appearance Urine pH Ur Specific [place] Urine Protein Urine Glucose (UA) Urine Ketones Urine Blood Urine Nitrite Urine Bilirubin Urine Urobilinogen Ur Leukocyte Esterase Urine WBC (Auto) Urine RBC (Auto) U Hyaline Cast (Auto) Urine Bacteria (Auto) Squamous Epi Cells Auto Urine Ascorbic Acid Chest X-Ray 10/11/18 04:15 IMPRESSION: Mild-moderate mixed interstitial and airspace opacities. Differential diagnosis includes CHF/pulmonary edema, multifocal pneumonia, and chronic interstitial lung disease. - Vital Signs Vital signs: Temp Pulse Resp BP Pulse Ox 17 169/77 H 96 10/11/18 08:01 10/11/18 08:01 10/11/18 08:35 - Laboratory Result Diagrams: 10/11/18 05:51 10/11/18 07:43 Laboratory results interpreted by me: 10/11/18 10/11/18 10/11/18 05:51 05:51 07:43 RBC 3.07 L Hgb 9.0 L Hct 27.4 L RDW 17.6 H Seg Neutrophils % 80.2 H Lymphocytes % 11.3 L Chloride 110 H BUN 24 H Glucose 189 H Direct Bilirubin 0.6 H Alkaline Phosphatase 431 H NT-Pro-B Natriuret Pep Urine Protein 100 H Urine Blood LARGE H Urine Urobilinogen 4.0 H Ur Leukocyte Esterase LARGE H Urine Ascorbic Acid 20 H 10/11/18 07:43 RBC Hgb Hct RDW Seg Neutrophils % Lymphocytes % Chloride BUN Glucose Direct Bilirubin Alkaline Phosphatase NT-Pro-B Natriuret Pep 2900 H Urine Protein Urine Blood Urine Urobilinogen Ur Leukocyte Esterase Urine Ascorbic Acid - EKG Interpretation by Me Additional EKG results interpreted by me: 10/11/18 07:59 Interpreted by myself [id number]: Normal sinus rhythm, rate 88, normal axis, LVH, no STEMI Discharge - Discharge Clinical Impression: Acute UTI, Hypoxic, Chronic anemia Pneumonia Qualifiers: Pneumonia type: due to unspecified organism Laterality: bilateral Lung location: unspecified part of lung Qualified Code(s): J18.9 - Pneumonia, unspecified organism CHF exacerbation Qualifiers: Heart failure type: unspecified Qualified Code(s): I50.9 - Heart failure, unspecified Condition: Stable Disposition: ADMITTED INPATIENT Admitting Provider: [facility] Admitted: [facility]
--- NOTE | 2018-10-11 07:12 | EKG REPORT ---
SEVERITY:- ABNORMAL ECG - SINUS RHYTHM PROBABLE LEFT ATRIAL ABNORMALITY LVH WITH SECONDARY REPOLARIZATION ABNORMALITY BORDERLINE PROLONGED QT INTERVAL : Confirmed by: Yobany Marino MD 11-Oct-2018 07:11:24
[2018-10-11 08:44] LABS: ALANINE AMINOTRANSFERASE 15 U/L (9-52); ALBUMIN 3.6 g/dL (3.5-5.0); ALKALINE PHOSPHATASE 431 U/L (38-126); ANION GAP 10 (5-19); ASPARTATE AMINO TRANSFERASE 22 U/L (14-36); BILIRUBIN,DIRECT 0.6 mg/dL (0.0-0.4); BILIRUBIN,TOTAL 1.3 mg/dL (0.2-1.3); BLOOD UREA NITROGEN 24 mg/dL (7-20); CALCIUM 9.5 mg/dL (8.4-10.2); CARBON DIOXIDE 24 mmol/L (22-30); CHLORIDE 110 mmol/L (98-107); GLUCOSE 189 mg/dL (75-110); POTASSIUM 4.1 mmol/L (3.6-5.0); SODIUM 143.8 mmol/L (137-145); TOTAL PROTEIN 8.2 g/dL (6.3-8.2)
[2018-10-11 08:50] LABS: NT PRO BNP 2900 pg/mL (5-900)
[2018-10-11 08:51] LABS: TROPONIN I < 0.012 ng/mL
--- NOTE | 2018-10-11 16:37 | PDOC H&P ---
History of Present Illness Admission Date/PCP: 10/11/18 09:23 [facility] Patient complains of: Difficulty with breathing History of Present Illness: JAVIER BURGER is a 63 year old female known to my practice who recently was discharged from [facility] in [place], [place] for acute rehabilitation center following protracted hospitalization at [facility]. he presented to the ED with two days complain of difficulty with breathing and laying down. She She denied any chest pain, palpitation, diaphoresis, nausea, or vomiting. She reported associated wheezing and nonproductive cough. She denied fever or chills. She reported compliance with her medication and dietary restrictions. She reported that her leg swelling has been about the same since her discharge from the acute rehabilitation facility. Her initial ED evaluation was remarkable for abnormal chest X ray suggestive for possible air space disease process versus CHF. Her urinalysis did suggest possible UTI. Her NT-Pro was elevated but comparatively better to her previous level at this facility. 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 She has chronic wound on her left foot. She was advised hospitalization for further evaluation and management. Past Medical History Cardiac Medical History: Reports: Congestive Heart Failure, Coronary Artery Disease, Myocardial Infarction, Hyperlipidema, Hypertension, Peripheral Vascular Disease Denies: Atrial Fibrillation Pulmonary Medical History: Reports: Bronchitis Denies: Asthma, Chronic Obstructive Pulmonary Disease (COPD), Pneumonia, Tuberculosis Neurological Medical History: Denies: Seizures Endocrine Medical History: Reports: Diabetes Mellitus Type 2 Renal/ Medical History: Denies: End Stage Renal Disease GI Medical History: Reports: Diverticulitis - diverticulosis Denies: Gastroesophageal Reflux Disease, Hiatal Hernia Musculoskeltal Medical History: Denies: Arthritis Psychiatric Medical History: Denies: Bipolar Disorder, Depression Hematology: Denies: Anemia, Hemophilia, Sickle Cell Disease Past Surgical History Past Surgical History: Reports: Coronary Artery Bypass Graft - July 31 2011, Tonsillectomy, Vascular Surgery Denies: Amputation, Appendectomy, Cardiac Catheterization, Section, Cholecystectomy, Hysterectomy, Mastectomy, Tubal Ligation Social History Smoking Status: Former Smoker Number of Years Smokin Frequency of Alcohol Use: None Hx Recreational Drug Use: No Drugs: None Hx Prescription Drug Abuse: No - Advance Directive Resuscitation Status: Full Code Family History Family History: CAD, Hyperlipidemia, Hypertension Parental Family History Reviewed: Yes Children Family History Reviewed: Yes Sibling(s) Family History Reviewed.: Yes Medication/Allergy Home Medications: Aspirin [Aspirin EC] 81 mg PO DAILY 12/10/17 Insulin Detemir [Levemir Flextouch] 50 unit SQ Q12 12/10/17 Nitroglycerin [Nitrostat 0.4 mg (1/150 Gr) Tabs 25/Bottle] 1 tab SL Q5MP PRN 12/10/17 Amlodipine Besylate [Norvasc 10 mg Tablet] 10 mg PO DAILY 12/26/17 Apixaban [Eliquis 2.5 mg Tablet] 2.5 mg PO BID 12/26/17 Ascorbic Acid [Vitamin C 500 mg Tablet] 500 mg PO DAILY 10/11/18 Atorvastatin Calcium [Lipitor 20 mg Tablet] 20 mg PO QHS 10/11/18 Clopidogrel Bisulfate [Plavix 75 mg Tablet] 75 mg PO DAILY 10/11/18 Docusate Sodium [Colace] 100 mg PO BIDP PRN 10/11/18 Famotidine [Pepcid] 20 mg PO BID 10/11/18 Furosemide [Lasix 20 mg Tablet] 60 mg PO QAM 10/11/18 Gabapentin [Neurontin 100 mg Capsule] 100 mg PO TID 10/11/18 Insulin Aspart [Novolog Flexpen] 0 unit SUBCUT .SLD SCALE 10/11/18 Oxycodone HCl/Acetaminophen [Percocet 7.5-325 mg Tablet] 1 each PO Q6HP PRN 10/11/18 Simethicone [Mylicon 80 mg Chewable Tablet] 80 mg PO Q6 10/11/18 Tramadol HCl [Ultram 50 mg Tablet] 50 mg PO Q8HP PRN 10/11/18 Valsartan [Diovan] 160 mg PO DAILY 10/11/18 Allergies/Adverse Reactions: pregabalin [From Lyrica] Allergy (Verified 12/25/17 18:46) Swelling of hands and face Review of Systems Constitutional: PRESENT: chills, weakness Eyes: ABSENT: visual disturbances Ears: ABSENT: hearing changes Nose, Mouth, and Throat: ABSENT: as per HPI, headache(s), mouth pain, sore throat, vertigo, other Cardiovascular: PRESENT: dyspnea on exertion, orthropnea. ABSENT: as per HPI, chest pain, edema, palpitations, other Respiratory: PRESENT: cough - unproductive. ABSENT: as per HPI, dyspnea, hemoptysis, sputum, other Gastrointestinal: PRESENT: nausea. ABSENT: vomiting Genitourinary: ABSENT: dysuria, hematuria Musculoskeletal: PRESENT: joint swelling Integumentary: PRESENT: wounds - on feet Neurological: ABSENT: abnormal gait, abnormal speech, confusion, dizziness, focal weakness, syncope Psychiatric: PRESENT: as per HPI. ABSENT: anxiety, depression, homidical ideation, suicidal ideation Endocrine: PRESENT: cold intolerance, polydipsia, polyphagia, polyuria Hematologic/Lymphatic: PRESENT: as per HPI Allergic/Immunologic: ABSENT: seasonal rhinorrhea Physical Exam Vital Signs: Temp Pulse Resp BP Pulse Ox 98.5 F 88 20 153/77 H 99 10/11/18 12:42 10/11/18 12:42 10/11/18 12:42 10/11/18 12:42 10/11/18 12:42 Intake & Output 10/10/18 10/11/18 10/12/18 06:59 06:59 06:59 Intake Total 150 Balance 150 Weight 95.3 kg General appearance: PRESENT: morbidly obese Head exam: PRESENT: atraumatic, normocephalic Eye exam: PRESENT: conjunctiva pink, EOMI, PERRLA. ABSENT: scleral icterus Ear exam: PRESENT: normal external ear exam Mouth exam: PRESENT: moist Teeth exam: PRESENT: poor dentation Throat exam: ABSENT: post pharyngeal erythema, tonsillar erythema, tonsillar exudate, tonsillogmegaly, other Neck exam: PRESENT: full ROM. ABSENT: carotid bruit, JVD, lymphadenopathy, thyromegaly Respiratory exam: PRESENT: decreased breath sounds - at lung bases Cardiovascular exam: PRESENT: RRR. ABSENT: diastolic murmur, rubs, systolic murmur Pulses: PRESENT: +1 pedal pulses bilateral Vascular exam: ABSENT: pallor GI/Abdominal exam: PRESENT: normal bowel sounds, soft. ABSENT: distended, guarding, mass, organolmegaly, rebound, tenderness Rectal exam: PRESENT: deferred Extremities exam: PRESENT: pedal edema - 2+ Neurological exam: PRESENT: alert, awake, oriented to person, oriented to place, oriented to time, oriented to situation, CN II-XII grossly intact. ABSENT: motor sensory deficit Psychiatric exam: PRESENT: appropriate affect, normal mood. ABSENT: homicidal ideation, suicidal ideation Skin exam: PRESENT: dry, warm, other - stage 4 ulcer involing left heel region Results Laboratory Results: 10/11/18 05:51 10/11/18 07:43 10/11/18 10/11/18 10/11/18 05:51 05:51 05:51 WBC 8.5 RBC 3.07 L Hgb 9.0 L Hct 27.4 L MCV 90 MCH 29.3 MCHC 32.7 RDW 17.6 H Plt Count 276 Seg Neutrophils % 80.2 H Lymphocytes % 11.3 L Monocytes % 6.9 Eosinophils % 1.2 Basophils % 0.4 Absolute Neutrophils 6.8 Absolute Lymphocytes 1.0 Absolute Monocytes 0.6 Absolute Eosinophils 0.1 Absolute Basophils 0.0 VBG pH 7.39 VBG pCO2 38.9 VBG HCO3 23.0 VBG Base Excess -1.7 Sodium Cancelled Potassium Cancelled Chloride Cancelled Carbon Dioxide Cancelled Anion Gap Cancelled BUN Cancelled Creatinine Cancelled Est GFR ( Amer) Cancelled Est GFR (Non-Af Amer) Cancelled Glucose Cancelled Lactic Acid Calcium Cancelled Total Bilirubin Cancelled AST Cancelled ALT Cancelled Alkaline Phosphatase Cancelled Total Protein Cancelled Albumin Cancelled Urine Color Urine Appearance Urine pH Ur Specific [place] Urine Protein Urine Glucose (UA) Urine Ketones Urine Blood Urine Nitrite Ur Leukocyte Esterase Urine WBC (Auto) Urine RBC (Auto) 10/11/18 10/11/18 10/11/18 05:51 07:43 07:43 WBC RBC Hgb Hct MCV MCH MCHC RDW Plt Count Seg Neutrophils % Lymphocytes % Monocytes % Eosinophils % Basophils % Absolute Neutrophils Absolute Lymphocytes Absolute Monocytes Absolute Eosinophils Absolute Basophils VBG pH VBG pCO2 VBG HCO3 VBG Base Excess Sodium 143.8 Potassium 4.1 Chloride 110 H Carbon Dioxide 24 Anion Gap 10 BUN 24 H Creatinine 0.86 Est GFR ( Amer) > 60 Est GFR (Non-Af Amer) > 60 Glucose 189 H Lactic Acid 0.9 Calcium 9.5 Total Bilirubin 1.3 AST 22 ALT 15 Alkaline Phosphatase 431 H Total Protein 8.2 Albumin 3.6 Urine Color YELLOW Urine Appearance CLOUDY Urine pH 6.0 Ur Specific [place] 1.012 Urine Protein 100 H Urine Glucose (UA) NEGATIVE Urine Ketones NEGATIVE Urine Blood LARGE H Urine Nitrite NEGATIVE Ur Leukocyte Esterase LARGE H Urine WBC (Auto) >182 Urine RBC (Auto) 94 10/11/18 10/11/18 05:51 07:43 Troponin I Cancelled < 0.012 NT-Pro-B Natriuret Pep Cancelled 2900 H Impressions: Chest X-Ray 10/11/18 04:15 IMPRESSION: Mild-moderate mixed interstitial and airspace opacities. Differential diagnosis includes CHF/pulmonary edema, multifocal pneumonia, and chronic interstitial lung disease. Assessment & Plan - Diagnosis (1) Acute exacerbation of CHF (congestive heart failure) Qualifiers: Heart failure type: diastolic Qualified Code(s): I50.33 - Acute on chronic diastolic (congestive) heart failure Is this a current diagnosis for this admission?: Yes Plan: See admitting attending physician orders for details of care plan. (2) Pneumonia Qualifiers: Pneumonia type: due to unspecified organism Laterality: bilateral Lung location: unspecified part of lung Qualified Code(s): J18.9 - Pneumonia, unspecified organism Is this a current diagnosis for this admission?: Yes (3) Hypoxemia requiring supplemental oxygen Is this a current diagnosis for this admission?: Yes Plan: See admitting attending physician orders for details of care plan. (4) Acute UTI Is this a current diagnosis for this admission?: Yes (5) COPD (chronic obstructive pulmonary disease) Qualifiers: COPD type: unspecified COPD Qualified Code(s): J44.9 - Chronic obstructive pulmonary disease, unspecified Is this a current diagnosis for this admission?: Yes Plan: See admitting attending physician orders for details of care plan. (6) Diabetes mellitus type 2 in obese Is this a current diagnosis for this admission?: Yes Plan: See admitting attending physician orders for details of care plan. (7) 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 2 diabetes mellitus Qualifiers: Diabetic foot ulcer location: heel Non-pressure ulcer stage: unspecified non-pressure ulcer stage Qualified Code(s): E11.621 - Type 2 diabetes mellitus with foot ulcer; L97.429 - Non-pressure chronic ulcer of left heel and midfoot with unspecified severity; L97.429 - Non-pressure chronic ulcer of left heel and midfoot with unspecified severity; L97.429 - Non-pressure chronic ulcer of left heel and midfoot with unspecified severity; L97.429 - Non-pressure chronic ulcer of left heel and midfoot with unspecified severity Is this a current diagnosis for this admission?: Yes Plan: See admitting attending physician orders for details of care plan. (8) Hypertension Qualifiers: Hypertension type: essential hypertension Qualified Code(s): I10 - Essential (primary) hypertension Is this a current diagnosis for this admission?: Yes Plan: See admitting attending physician orders for details of care plan. (9) CAD (coronary artery disease) Qualifiers: Coronary Disease-Associated Artery/Lesion type: unspecified vessel or lesion type [place] vs. transplanted heart: [place] heart Associated angina: without angina Qualified Code(s): I25.10 - Atherosclerotic heart disease of [place] coronary artery without angina pectoris Is this a current diagnosis for this admission?: Yes Plan: See admitting attending physician orders for details of care plan. (10) Coronary artery disease Qualifiers: Coronary Disease-Associated Artery/Lesion type: bypass graft Associated angina: with stable angina Is this a current diagnosis for this admission?: Yes Plan: See admitting attending physician orders for details of care plan. (11) Hyperlipidemia Qualifiers: Hyperlipidemia type: unspecified Qualified Code(s): E78.5 - Hyperlipidemia, unspecified Is this a current diagnosis for this admission?: Yes (12) Morbid obesity with BMI of 40.0-44.9, adult Is this a current diagnosis for this admission?: Yes - Time Time Spent: 50 to 70 Minutes Medications reviewed and adjusted accordingly: Yes Anticipated discharge: Home with Homehealth Within: Other - Inpatient Certification Based on my medical assessment, after consideration of the patient's comorbidities, presenting symptoms, or acuity I expect that the services needed warrant INPATIENT care.: Yes I certify that my determination is in accordance with my understanding of Medicare's requirements for reasonable and necessary INPATIENT services [42 CFR 412.3e].: Yes Medical Necessity: Significant Comorbidiites Make Outpatient Treatment Too Risky, Need Close Monitoring Due to Risk of Patient Decompensation, Need For Continuous Telemetry Monitoring, Need for Nebulizer Therapy and Monitoring of Response, Need for IV Antibiotics, Risk of Complication if Not Cared For in Hospital, Risk of Diagnosis Which Will Require Inpatient Eval/Care/Monitoring 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
[2018-10-11] MEDS ORDERED: (PENDING PHARMACY ID) (Oxycodone Hcl/Acetaminophen [Percocet 7.5-325 Mg Tablet] 1 EACH) PO PRN (16:41)
[2018-10-11] MEDS ORDERED: DOCUSATE SODIUM 100 MG CAPSULE PO PRN (16:41)
[2018-10-11] MEDS ORDERED: NITROGLYCERIN 0.4 MG/TAB 25 TAB/BOTTLE SL PRN (16:41)
[2018-10-11] MEDS ORDERED: GLUCAGON,HUMAN RECOMB 1 MG INJ IM PRN (16:50)
[2018-10-11] MEDS ORDERED: DEXTROSE 40% GEL 15 GM TUBE PO PRN ×2 (16:50)
[2018-10-11] MEDS ORDERED: DEXTROSE 50%-WATER 25 GM/50 ML DISP.SYRIN IV PRN ×2 (16:50)
[2018-10-11] MEDS ORDERED: GABAPENTIN 100 MG CAPSULE PO SCH (18:00)
[2018-10-11] MEDS: APIXABAN 2.5 MG TABLET PO SCH (18:04)
[2018-10-11] MEDS: FAMOTIDINE 20 MG TABLET PO SCH (18:04)
[2018-10-11] MEDS: SIMETHICONE 80 MG TAB.CHEW PO SCH (18:04)
[2018-10-11] MEDS: OXYCODONE-ACETAMINOPHEN 5-325 MG TABLET PO PRN (18:04)
[2018-10-11] MEDS: SILVER SULFADIAZINE 1% CREAM 400 GM TP SCH (18:44)
[2018-10-11] MEDS ORDERED: INSULIN DETEMIR 50 UNIT SQ SCH (22:00)
[2018-10-11] MEDS: ATORVASTATIN CALCIUM 20 MG TABLET PO SCH (22:03)
[2018-10-11] MEDS: INSULIN LISPRO 100 UNIT/ML 3 ML VIAL SUBCUT SCH (22:03)
[2018-10-11] MEDS: GABAPENTIN 100 MG CAPSULE PO SCH (22:04)
[2018-10-11] MEDS: OXYCODONE HCL IR 5 MG TABLET PO PRN (22:04)
[2018-10-11] MEDS: INSULIN GLARGINE,HUM.REC.ANLOG 1,000 UNIT/10 ML VIAL SUBCUT SCH (22:12)
[2018-10-11] MEDS ORDERED: INSULIN GLARGINE,HUM.REC.ANLOG 1,000 UNIT/10 ML VIAL (PYX) SUBCUT ONE (22:12)
[2018-10-12] MEDS: SIMETHICONE 80 MG TAB.CHEW PO SCH ×5 (01:00→17:20)
[2018-10-12] MEDS: OXYCODONE-ACETAMINOPHEN 5-325 MG TABLET PO PRN ×3 (02:49→19:47)
[2018-10-12] MEDS: OXYCODONE HCL IR 5 MG TABLET PO PRN ×3 (02:50→19:46)
[2018-10-12 04:46] LABS: ABSOLUTE EOSINOPHILS # (AUTO) 0.1 10^3/uL (0.0-0.6); ABSOLUTE LYMPHOCYTES (AUTO) 1.1 10^3/uL (0.5-4.7); ABSOLUTE MONOCYTES (AUTO) 0.8 10^3/uL (0.1-1.4); ABSOLUTE NEUT (AUTO) 5.4 10^3/uL (1.7-8.2); BASOPHILS % (AUTO) 0.5 % (0-2); EOSINOPHILS % (AUTO) 1.7 % (0-6); HEMOGLOBIN 8.5 g/dL (12.0-15.5); LYMPHOCYTES % (AUTO) 14.6 % (13-45); MEAN CORPUSCULAR HEMOGLOBIN 29.7 pg (27.0-33.4); MEAN CORPUSCULAR HGB CONC 32.7 g/dL (32.0-36.0); MEAN CORPUSCULAR VOLUME 91 fl (80-97); MONOCYTES % (AUTO) 10.2 % (3-13); PLATELET COUNT 232 10^3/uL (150-450); RED BLOOD COUNT 2.87 10^6/uL (3.72-5.28); RED CELL DISTRIBUTION WIDTH 17.5 % (11.5-14.0); TOTAL CELLS COUNTED % (AUTO) 100 %; WHITE BLOOD COUNT 7.4 10^3/uL (4.0-10.5)
[2018-10-12 05:12] LABS: ALANINE AMINOTRANSFERASE 14 U/L (9-52); ALBUMIN 3.3 g/dL (3.5-5.0); ALKALINE PHOSPHATASE 347 U/L (38-126); ANION GAP 8 (5-19); ASPARTATE AMINO TRANSFERASE 19 U/L (14-36); BILIRUBIN,DIRECT 0.6 mg/dL (0.0-0.4); BILIRUBIN,TOTAL 1.6 mg/dL (0.2-1.3); BLOOD UREA NITROGEN 18 mg/dL (7-20); CALCIUM 9.3 mg/dL (8.4-10.2); CARBON DIOXIDE 27 mmol/L (22-30); CHLORIDE 110 mmol/L (98-107); GLUCOSE 83 mg/dL (75-110); PHOSPHORUS 4.3 mg/dL (2.5-4.5); POTASSIUM 4.1 mmol/L (3.6-5.0); TOTAL PROTEIN 7.5 g/dL (6.3-8.2)
[2018-10-12] MEDS: GABAPENTIN 100 MG CAPSULE PO SCH ×3 (05:40→22:32)
[2018-10-12] MEDS: INSULIN LISPRO 100 UNIT/ML 3 ML VIAL SUBCUT SCH ×4 (09:58→23:41)
[2018-10-12] MEDS: LEVOFLOXACIN 500 MG/D5W RTU 500 MG/100 ML RTUPB IV SCH (09:58)
[2018-10-12] MEDS: FUROSEMIDE INJ/PF 40 MG/4 ML SDV IV SCH (09:59)
[2018-10-12] MEDS: INSULIN GLARGINE,HUM.REC.ANLOG 1,000 UNIT/10 ML VIAL SUBCUT SCH ×2 (09:59→23:41)
[2018-10-12] MEDS: ASCORBIC ACID 500 MG TABLET PO SCH (10:00)
[2018-10-12] MEDS: AMLODIPINE BESYLATE 10 MG TABLET PO SCH (10:00)
[2018-10-12] MEDS ORDERED: VALSARTAN 160 MG TABLET PO SCH (10:00)
[2018-10-12] MEDS: CLOPIDOGREL BISULFATE 75 MG TABLET PO SCH (10:00)
[2018-10-12] MEDS: ASPIRIN 81 MG TABLET, ENT COATED PO SCH (10:00)
[2018-10-12] MEDS: APIXABAN 2.5 MG TABLET PO SCH ×2 (10:01→17:20)
[2018-10-12] MEDS: VALSARTAN 160 MG TABLET PO SCH (10:01)
[2018-10-12] MEDS: FAMOTIDINE 20 MG TABLET PO SCH ×2 (10:01→17:20)
[2018-10-12] MEDS: SILVER SULFADIAZINE 1% CREAM 400 GM TP SCH (10:02)
[2018-10-12] MEDS ORDERED: DIPHENHYDRAMINE HCL 50 MG/ML VIAL ONE (11:51)
--- NOTE | 2018-10-12 16:43 | PDOC PROGRESS REPORT ---
Subjective Progress Note for:: 10/12/18 Subjective:: Patient reported dry nostrum with intermittent nasal bleed on supplemental oxygen via nasal cannula. Her breathing has improved since admission. No chest pain. No nausea, vomiting or abdominal pain. No fever or chills. [place] cath indwelling for strict fluid management. Reason For Visit: ACUTE ON CHRONIC DIASTOLIC CHF,BILATERAL PNEUMONIA Physical Exam Vital Signs: Temp Pulse Resp BP Pulse Ox 98.5 F 71 17 143/62 H 100 10/12/18 15:06 10/12/18 15:06 10/12/18 15:06 10/12/18 15:06 10/12/18 15:06 Intake & Output 10/11/18 10/12/18 10/13/18 06:59 06:59 06:59 Intake Total 924 25 Output Total 4075 1400 Balance -3151 -1375 Weight 93.4 kg General appearance: PRESENT: no acute distress Head exam: PRESENT: atraumatic, normocephalic Eye exam: PRESENT: conjunctiva pink. ABSENT: scleral icterus Ear exam: PRESENT: normal external ear exam Mouth exam: PRESENT: moist Teeth exam: PRESENT: poor dentation Respiratory exam: PRESENT: clear to auscultation [place], decreased breath sounds - at lung bases Cardiovascular exam: PRESENT: RRR. ABSENT: diastolic murmur, rubs, systolic murmur Vascular exam: ABSENT: pallor GI/Abdominal exam: PRESENT: normal bowel sounds, soft. ABSENT: distended, guarding, mass, organolmegaly, rebound, tenderness Extremities exam: PRESENT: pedal edema - improving Musculoskeletal exam: PRESENT: deformity - related to joint imvolvement with arthritis Neurological exam: PRESENT: alert, awake, oriented to person, oriented to place, oriented to time, oriented to situation, CN II-XII grossly intact. ABSENT: motor sensory deficit Psychiatric exam: PRESENT: appropriate affect, normal mood. ABSENT: homicidal ideation, suicidal ideation Skin exam: PRESENT: dry, warm, other - left heel ulcer dressing satisfactory. Results Laboratory Results: 10/12/18 04:08 10/12/18 04:08 10/12/18 10/12/18 04:08 04:08 WBC 7.4 RBC 2.87 L Hgb 8.5 L Hct 26.0 L MCV 91 MCH 29.7 MCHC 32.7 RDW 17.5 H Plt Count 232 Seg Neutrophils % 73.0 Lymphocytes % 14.6 Monocytes % 10.2 Eosinophils % 1.7 Basophils % 0.5 Absolute Neutrophils 5.4 Absolute Lymphocytes 1.1 Absolute Monocytes 0.8 Absolute Eosinophils 0.1 Absolute Basophils 0.0 Sodium 145.0 Potassium 4.1 Chloride 110 H Carbon Dioxide 27 Anion Gap 8 BUN 18 Creatinine 0.74 Est GFR ( Amer) > 60 Est GFR (Non-Af Amer) > 60 Glucose 83 Calcium 9.3 Phosphorus 4.3 Magnesium 2.1 Total Bilirubin 1.6 H AST 19 ALT 14 Alkaline Phosphatase 347 H Total Protein 7.5 Albumin 3.3 L 10/11/18 10/11/18 05:51 07:43 Troponin I Cancelled < 0.012 NT-Pro-B Natriuret Pep Cancelled 2900 H Impressions: Chest X-Ray 10/11/18 04:15 IMPRESSION: Mild-moderate mixed interstitial and airspace opacities. Differential diagnosis includes CHF/pulmonary edema, multifocal pneumonia, and chronic interstitial lung disease. Assessment & Plan - Diagnosis (1) Acute exacerbation of CHF (congestive heart failure) Qualifiers: Heart failure type: diastolic Qualified Code(s): I50.33 - Acute on chronic diastolic (congestive) heart failure Is this a current diagnosis for this admission?: Yes (2) Pneumonia Qualifiers: Pneumonia type: due to unspecified organism Laterality: bilateral Lung location: unspecified part of lung Qualified Code(s): J18.9 - Pneumonia, unspecified organism Is this a current diagnosis for this admission?: Yes (3) Hypoxemia requiring supplemental oxygen Is this a current diagnosis for this admission?: Yes (4) Acute UTI Is this a current diagnosis for this admission?: Yes (5) COPD (chronic obstructive pulmonary disease) Qualifiers: COPD type: unspecified COPD Qualified Code(s): J44.9 - Chronic obstructive pulmonary disease, unspecified Is this a current diagnosis for this admission?: Yes (6) Diabetes mellitus type 2 in obese Is this a current diagnosis for this admission?: Yes (7) 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 2 diabetes mellitus Qualifiers: Diabetic foot ulcer location: heel Non-pressure ulcer stage: unspecified non-pressure ulcer stage Qualified Code(s): E11.621 - Type 2 diabetes mellitus with foot ulcer; L97.429 - Non-pressure chronic ulcer of left heel and midfoot with unspecified severity; L97.429 - Non-pressure chronic ulcer of left heel and midfoot with unspecified severity; L97.429 - Non-pressure chronic ulcer of left heel and midfoot with unspecified severity; L97.429 - Non-pressure chronic ulcer of left heel and midfoot with unspecified severity Is this a current diagnosis for this admission?: Yes (8) Hypertension Qualifiers: Hypertension type: essential hypertension Qualified Code(s): I10 - Essential (primary) hypertension Is this a current diagnosis for this admission?: Yes (9) CAD (coronary artery disease) Qualifiers: Coronary Disease-Associated Artery/Lesion type: unspecified vessel or lesion type [place] vs. transplanted heart: [place] heart Associated angina: without angina Qualified Code(s): I25.10 - Atherosclerotic heart disease of [place] coronary artery without angina pectoris Is this a current diagnosis for this admission?: Yes (10) Coronary artery disease Qualifiers: Coronary Disease-Associated Artery/Lesion type: bypass graft Associated angina: with stable angina Is this a current diagnosis for this admission?: Yes (11) Hyperlipidemia Qualifiers: Hyperlipidemia type: unspecified Qualified Code(s): E78.5 - Hyperlipidemia, unspecified Is this a current diagnosis for this admission?: Yes (12) Morbid obesity with BMI of 40.0-44.9, adult Is this a current diagnosis for this admission?: Yes - Time Time Spent with patient: 25-34 minutes Medications reviewed and adjusted accordingly: Yes Anticipated discharge: Home with Homehealth, SNF Within: Other - Inpatient Certification Based on my medical assessment, after consideration of the patient's comorbidities, presenting symptoms, or acuity I expect that the services needed warrant INPATIENT care.: Yes I certify that my determination is in accordance with my understanding of Medicare's requirements for reasonable and necessary INPATIENT services [42 CFR 412.3e].: Yes Medical Necessity: Significant Comorbidiites Make Outpatient Treatment Too Risky, Need Close Monitoring Due to Risk of Patient Decompensation, Need For Continuous Telemetry Monitoring, Need for Pain Control, Risk of Diagnosis Which Will Require Inpatient Eval/Care/Monitoring 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 Obtain CBC with diff and CMP in am.
[2018-10-12] MEDS: SODIUM CHLORIDE NASAL SPRAY 44 ML NASL SCH ×2 (17:20→22:33)
[2018-10-12] MEDS ORDERED: SODIUM CHLORIDE NASAL SPRAY 44 ML ONE (17:30)
[2018-10-12] MEDS ORDERED: INSULIN GLARGINE,HUM.REC.ANLOG 1,000 UNIT/10 ML VIAL (PYX) SUBCUT ONE ×2 (22:30→23:45)
[2018-10-12] MEDS: ATORVASTATIN CALCIUM 20 MG TABLET PO SCH (22:32)
[2018-10-13] MEDS: SIMETHICONE 80 MG TAB.CHEW PO SCH ×4 (01:51→17:23)
[2018-10-13 04:28] LABS: ABSOLUTE EOSINOPHILS # (AUTO) 0.2 10^3/uL (0.0-0.6); ABSOLUTE LYMPHOCYTES (AUTO) 1.1 10^3/uL (0.5-4.7); ABSOLUTE MONOCYTES (AUTO) 0.7 10^3/uL (0.1-1.4); ABSOLUTE NEUT (AUTO) 4.8 10^3/uL (1.7-8.2); BASOPHILS % (AUTO) 0.4 % (0-2); EOSINOPHILS % (AUTO) 3.1 % (0-6); HEMATOCRIT 24.6 % (36.0-47.0); LYMPHOCYTES % (AUTO) 16.4 % (13-45); MEAN CORPUSCULAR HEMOGLOBIN 29.2 pg (27.0-33.4); MEAN CORPUSCULAR HGB CONC 32.4 g/dL (32.0-36.0); MEAN CORPUSCULAR VOLUME 90 fl (80-97); MONOCYTES % (AUTO) 10.6 % (3-13); PLATELET COUNT 230 10^3/uL (150-450); RED BLOOD COUNT 2.73 10^6/uL (3.72-5.28); RED CELL DISTRIBUTION WIDTH 17.8 % (11.5-14.0); SEGMENTED NEUTROPHILS % (AUTO) 69.5 % (42-78); TOTAL CELLS COUNTED % (AUTO) 100 %
[2018-10-13 04:46] LABS: ALANINE AMINOTRANSFERASE 27 U/L (9-52); ALBUMIN 2.9 g/dL (3.5-5.0); ALKALINE PHOSPHATASE 280 U/L (38-126); ANION GAP 6 (5-19); ASPARTATE AMINO TRANSFERASE 16 U/L (14-36); BILIRUBIN,DIRECT 0.5 mg/dL (0.0-0.4); BLOOD UREA NITROGEN 19 mg/dL (7-20); CALCIUM 8.7 mg/dL (8.4-10.2); CARBON DIOXIDE 29 mmol/L (22-30); CHLORIDE 109 mmol/L (98-107); GLUCOSE 90 mg/dL (75-110); SODIUM 144.4 mmol/L (137-145); TOTAL PROTEIN 6.8 g/dL (6.3-8.2)
[2018-10-13] MEDS: GABAPENTIN 100 MG CAPSULE PO SCH ×3 (06:01→21:34)
[2018-10-13] MEDS: SODIUM CHLORIDE NASAL SPRAY 44 ML NASL SCH ×4 (08:22→21:41)
[2018-10-13] MEDS: LEVOFLOXACIN 500 MG/D5W RTU 500 MG/100 ML RTUPB IV SCH (08:22)
[2018-10-13] MEDS: INSULIN LISPRO 100 UNIT/ML 3 ML VIAL SUBCUT SCH ×4 (08:23→21:37)
[2018-10-13] MEDS: FUROSEMIDE INJ/PF 40 MG/4 ML SDV IV SCH (09:19)
[2018-10-13] MEDS: VALSARTAN 160 MG TABLET PO SCH (09:19)
[2018-10-13] MEDS: ASCORBIC ACID 500 MG TABLET PO SCH (09:19)
[2018-10-13] MEDS: FAMOTIDINE 20 MG TABLET PO SCH ×2 (09:20→17:23)
[2018-10-13] MEDS: APIXABAN 2.5 MG TABLET PO SCH ×2 (09:20→17:23)
[2018-10-13] MEDS: AMLODIPINE BESYLATE 10 MG TABLET PO SCH (09:20)
[2018-10-13] MEDS: ASPIRIN 81 MG TABLET, ENT COATED PO SCH (09:20)
[2018-10-13] MEDS: CLOPIDOGREL BISULFATE 75 MG TABLET PO SCH (09:20)
[2018-10-13] MEDS: INSULIN GLARGINE,HUM.REC.ANLOG 1,000 UNIT/10 ML VIAL SUBCUT SCH ×2 (09:21→21:38)
[2018-10-13] MEDS: SILVER SULFADIAZINE 1% CREAM 400 GM TP SCH (09:22)
[2018-10-13] MEDS: OXYCODONE HCL IR 5 MG TABLET PO PRN ×2 (13:16→22:45)
[2018-10-13] MEDS: OXYCODONE-ACETAMINOPHEN 5-325 MG TABLET PO PRN ×2 (13:16→22:46)
--- NOTE | 2018-10-13 16:11 | PDOC PROGRESS REPORT ---
Subjective Progress Note for:: 10/13/18 Subjective:: No chest pain. Her breathing ids getting better but still short with exertion, just transferring to chair at bedside. No nausea, vomiting or abdominal pain. No fever or chills. Reason For Visit: ACUTE ON CHRONIC DIASTOLIC CHF,BILATERAL PNEUMONIA Physical Exam Vital Signs: Temp Pulse Resp BP Pulse Ox 98.8 F 78 16 120/54 L 100 10/13/18 12:00 10/13/18 14:00 10/13/18 12:00 10/13/18 12:00 10/13/18 12:00 Intake & Output 10/12/18 10/13/18 10/14/18 06:59 06:59 06:59 Intake Total 924 605 100 Output Total 4075 2800 Balance -3151 -2195 100 Weight 93.4 kg 93 kg Physical Exam: General appearance: PRESENT: no acute distress Head exam: PRESENT: atraumatic, normocephalic Eye exam: PRESENT: conjunctiva pink. ABSENT: pallor, scleral icterus Ear exam: PRESENT: normal external ear exam Mouth exam: PRESENT: moist Teeth exam: PRESENT: poor dentation Respiratory exam: PRESENT: clear to auscultation jerrica, decreased breath sounds - at lung bases Cardiovascular exam: PRESENT: RRR. ABSENT: diastolic murmur, rubs, systolic murmur GI/Abdominal exam: PRESENT: normal bowel sounds, soft. ABSENT: distended, guarding, mass, organomegaly, rebound, tenderness Extremities exam: PRESENT: pedal edema - improving Musculoskeletal exam: PRESENT: deformity - related to joint involvement with arthritis Neurological exam: PRESENT: alert, awake, oriented to person, oriented to place, oriented to time, oriented to situation, CN II-XII grossly intact. ABSENT: motor sensory deficit Psychiatric exam: PRESENT: appropriate affect, normal mood. ABSENT: homicidal ideation, suicidal ideation Skin exam: PRESENT: dry, warm, other - left heel ulcer dressing satisfactory. Results Laboratory Results: 10/13/18 04:18 10/13/18 04:18 10/13/18 10/13/18 04:18 04:18 WBC 7.0 RBC 2.73 L Hgb 8.0 L Hct 24.6 L MCV 90 MCH 29.2 MCHC 32.4 RDW 17.8 H Plt Count 230 Seg Neutrophils % 69.5 Lymphocytes % 16.4 Monocytes % 10.6 Eosinophils % 3.1 Basophils % 0.4 Absolute Neutrophils 4.8 Absolute Lymphocytes 1.1 Absolute Monocytes 0.7 Absolute Eosinophils 0.2 Absolute Basophils 0.0 Sodium 144.4 Potassium 4.0 Chloride 109 H Carbon Dioxide 29 Anion Gap 6 BUN 19 Creatinine 0.81 Est GFR ( Amer) > 60 Est GFR (Non-Af Amer) > 60 Glucose 90 Calcium 8.7 Magnesium 2.0 Total Bilirubin 1.0 AST 16 ALT 27 Alkaline Phosphatase 280 H Total Protein 6.8 Albumin 2.9 L 10/11/18 10/11/18 05:51 07:43 Troponin I Cancelled < 0.012 NT-Pro-B Natriuret Pep Cancelled 2900 H Impressions: Chest X-Ray 10/11/18 04:15 IMPRESSION: Mild-moderate mixed interstitial and airspace opacities. Differential diagnosis includes CHF/pulmonary edema, multifocal pneumonia, and chronic interstitial lung disease. Assessment & Plan - Diagnosis (1) Acute exacerbation of CHF (congestive heart failure) Qualifiers: Heart failure type: diastolic Qualified Code(s): I50.33 - Acute on chronic diastolic (congestive) heart failure Is this a current diagnosis for this admission?: Yes (2) Pneumonia Qualifiers: Pneumonia type: due to unspecified organism Laterality: bilateral Lung location: unspecified part of lung Qualified Code(s): J18.9 - Pneumonia, unspecified organism Is this a current diagnosis for this admission?: Yes (3) Hypoxemia requiring supplemental oxygen Is this a current diagnosis for this admission?: Yes (4) Acute UTI Is this a current diagnosis for this admission?: Yes (5) COPD (chronic obstructive pulmonary disease) Qualifiers: COPD type: unspecified COPD Qualified Code(s): J44.9 - Chronic obstructive pulmonary disease, unspecified Is this a current diagnosis for this admission?: Yes (6) Diabetes mellitus type 2 in obese Is this a current diagnosis for this admission?: Yes (7) 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 2 diabetes mellitus Qualifiers: Diabetic foot ulcer location: heel Non-pressure ulcer stage: unspecified non-pressure ulcer stage Qualified Code(s): E11.621 - Type 2 diabetes mellitus with foot ulcer; L97.429 - Non-pressure chronic ulcer of left heel and midfoot with unspecified severity; L97.429 - Non-pressure chronic ulcer of left heel and midfoot with unspecified severity; L97.429 - Non-pressure chronic ulcer of left heel and midfoot with unspecified severity; L97.429 - Non-pressure chronic ulcer of left heel and midfoot with unspecified severity Is this a current diagnosis for this admission?: Yes (8) Hypertension Qualifiers: Hypertension type: essential hypertension Qualified Code(s): I10 - Essential (primary) hypertension Is this a current diagnosis for this admission?: Yes (9) CAD (coronary artery disease) Qualifiers: Coronary Disease-Associated Artery/Lesion type: unspecified vessel or lesion type [place] vs. transplanted heart: [place] heart Associated angina: without angina Qualified Code(s): I25.10 - Atherosclerotic heart disease of [place] coronary artery without angina pectoris Is this a current diagnosis for this admission?: Yes (10) Coronary artery disease Qualifiers: Coronary Disease-Associated Artery/Lesion type: bypass graft Associated angina: with stable angina Is this a current diagnosis for this admission?: Yes (11) Hyperlipidemia Qualifiers: Hyperlipidemia type: unspecified Qualified Code(s): E78.5 - Hyperlipidemia, unspecified Is this a current diagnosis for this admission?: Yes (12) Morbid obesity with BMI of 40.0-44.9, adult Is this a current diagnosis for this admission?: Yes - Time Time Spent with patient: 25-34 minutes Medications reviewed and adjusted accordingly: Yes Anticipated discharge: Home with Homehealth Within: Other - Inpatient Certification Based on my medical assessment, after consideration of the patient's comorbidities, presenting symptoms, or acuity I expect that the services needed warrant INPATIENT care.: Yes I certify that my determination is in accordance with my understanding of Medicare's requirements for reasonable and necessary INPATIENT services [42 CFR 412.3e].: Yes Medical Necessity: Significant Comorbidiites Make Outpatient Treatment Too Risky, Need Close Monitoring Due to Risk of Patient Decompensation, Need For IV Fluids, Need For Continuous Telemetry Monitoring, Need for IV Antibiotics, Risk of Complication if Not Cared For in Hospital, Risk of Diagnosis Which Will Require Inpatient Eval/Care/Monitoring Post Hospital Care: D/C Child Care Coordinator Documentation - Plan Summary Plan Summary: Continue IV Lasix therapy and IV Levofloxacin coverage. Follow up on blood culture findings. Maintin on fluid restrictions. Obtain CBC with diff and BMP in am.
[2018-10-13] MEDS: ATORVASTATIN CALCIUM 20 MG TABLET PO SCH (21:34)
[2018-10-14] MEDS: SIMETHICONE 80 MG TAB.CHEW PO SCH ×4 (00:50→17:27)
[2018-10-14 05:14] LABS: ABSOLUTE EOSINOPHILS # (AUTO) 0.1 10^3/uL (0.0-0.6); ABSOLUTE LYMPHOCYTES (AUTO) 1.2 10^3/uL (0.5-4.7); ABSOLUTE MONOCYTES (AUTO) 0.8 10^3/uL (0.1-1.4); ABSOLUTE NEUT (AUTO) 5.4 10^3/uL (1.7-8.2); BASOPHILS % (AUTO) 0.4 % (0-2); EOSINOPHILS % (AUTO) 1.6 % (0-6); HEMATOCRIT 24.5 % (36.0-47.0); LYMPHOCYTES % (AUTO) 15.8 % (13-45); MEAN CORPUSCULAR HEMOGLOBIN 29.6 pg (27.0-33.4); MEAN CORPUSCULAR HGB CONC 32.4 g/dL (32.0-36.0); MEAN CORPUSCULAR VOLUME 91 fl (80-97); MONOCYTES % (AUTO) 10.9 % (3-13); PLATELET COUNT 232 10^3/uL (150-450); RED BLOOD COUNT 2.69 10^6/uL (3.72-5.28); RED CELL DISTRIBUTION WIDTH 17.3 % (11.5-14.0); SEGMENTED NEUTROPHILS % (AUTO) 71.3 % (42-78); TOTAL CELLS COUNTED % (AUTO) 100 %; WHITE BLOOD COUNT 7.6 10^3/uL (4.0-10.5)
[2018-10-14 05:42] LABS: ANION GAP 7 (5-19); BLOOD UREA NITROGEN 23 mg/dL (7-20); CALCIUM 8.6 mg/dL (8.4-10.2); CARBON DIOXIDE 30 mmol/L (22-30); CHLORIDE 106 mmol/L (98-107); GLUCOSE 78 mg/dL (75-110); POTASSIUM 4.8 mmol/L (3.6-5.0)
[2018-10-14] MEDS: GABAPENTIN 100 MG CAPSULE PO SCH ×3 (05:47→22:31)
[2018-10-14] MEDS: LEVOFLOXACIN 500 MG/D5W RTU 500 MG/100 ML RTUPB IV SCH (09:32)
[2018-10-14] MEDS: FUROSEMIDE INJ/PF 40 MG/4 ML SDV IV SCH (09:32)
[2018-10-14] MEDS: ASCORBIC ACID 500 MG TABLET PO SCH (09:33)
[2018-10-14] MEDS: ASPIRIN 81 MG TABLET, ENT COATED PO SCH (09:33)
[2018-10-14] MEDS: CLOPIDOGREL BISULFATE 75 MG TABLET PO SCH (09:33)
[2018-10-14] MEDS: INSULIN LISPRO 100 UNIT/ML 3 ML VIAL SUBCUT SCH ×4 (09:33→22:41)
[2018-10-14] MEDS: APIXABAN 2.5 MG TABLET PO SCH ×2 (09:33→17:27)
[2018-10-14] MEDS: VALSARTAN 160 MG TABLET PO SCH (09:34)
[2018-10-14] MEDS: AMLODIPINE BESYLATE 10 MG TABLET PO SCH (09:34)
[2018-10-14] MEDS: INSULIN GLARGINE,HUM.REC.ANLOG 1,000 UNIT/10 ML VIAL SUBCUT SCH ×2 (09:34→22:42)
[2018-10-14] MEDS: FAMOTIDINE 20 MG TABLET PO SCH ×2 (09:34→17:27)
[2018-10-14] MEDS: SILVER SULFADIAZINE 1% CREAM 400 GM TP SCH (09:35)
[2018-10-14] MEDS: SODIUM CHLORIDE NASAL SPRAY 44 ML NASL SCH ×4 (09:35→22:41)
[2018-10-14] MEDS ORDERED: FUROSEMIDE 40 MG TABLET PO SCH (10:30)
--- NOTE | 2018-10-14 11:25 | PDOC PROGRESS REPORT ---
Subjective Progress Note for:: 10/14/18 Subjective:: Patient denied any chest pain or difficulty with breathing. No nausea, vomiting or abdominal pain. No fever or chills. She remain on IV Levofloxacin and Lasix therapy. Reason For Visit: ACUTE ON CHRONIC DIASTOLIC CHF,BILATERAL PNEUMONIA Physical Exam Vital Signs: Temp Pulse Resp BP Pulse Ox 97.9 F 69 18 130/59 H 100 10/14/18 07:19 10/14/18 07:19 10/14/18 07:19 10/14/18 07:19 10/14/18 07:19 Intake & Output 10/13/18 10/14/18 10/15/18 06:59 06:59 06:59 Intake Total 605 1262 Output Total 2800 1450 Balance -2195 -188 Weight 93 kg 94.9 kg Physical Exam: General appearance: PRESENT: no acute distress Head exam: PRESENT: atraumatic, normocephalic Eye exam: PRESENT: conjunctiva pink. ABSENT: pallor, scleral icterus Ear exam: PRESENT: normal external ear exam Mouth exam: PRESENT: moist Teeth exam: PRESENT: poor dentition Respiratory exam: PRESENT: clear to auscultation jerrica, decreased breath sounds - at lung bases Cardiovascular exam: PRESENT: RRR. ABSENT: diastolic murmur, rubs, systolic murmur GI/Abdominal exam: PRESENT: normal bowel sounds, soft. ABSENT: distended, guarding, mass, organmegaly, rebound, tenderness Extremities exam: PRESENT: pedal edema - improving Musculoskeletal exam: PRESENT: deformity - related to joint involvement with arthritis Neurological exam: PRESENT: alert, awake, oriented to person, oriented to place, oriented to time, oriented to situation, CN II-XII grossly intact. ABSENT: motor sensory deficit Psychiatric exam: PRESENT: appropriate affect, normal mood. ABSENT: homicidal ideation, suicidal ideation Skin exam: PRESENT: dry, warm, other - left heel ulcer dressing satisfactory. Results Laboratory Results: 10/14/18 04:34 10/14/18 04:34 10/14/18 10/14/18 04:34 04:34 WBC 7.6 RBC 2.69 L Hgb 8.0 L Hct 24.5 L MCV 91 MCH 29.6 MCHC 32.4 RDW 17.3 H Plt Count 232 Seg Neutrophils % 71.3 Lymphocytes % 15.8 Monocytes % 10.9 Eosinophils % 1.6 Basophils % 0.4 Absolute Neutrophils 5.4 Absolute Lymphocytes 1.2 Absolute Monocytes 0.8 Absolute Eosinophils 0.1 Absolute Basophils 0.0 Sodium 143.0 Potassium 4.8 Chloride 106 Carbon Dioxide 30 Anion Gap 7 BUN 23 H Creatinine 1.07 Est GFR ( Amer) > 60 Est GFR (Non-Af Amer) 52 L Glucose 78 Calcium 8.6 10/11/18 10/11/18 05:51 07:43 Troponin I Cancelled < 0.012 NT-Pro-B Natriuret Pep Cancelled 2900 H Impressions: Chest X-Ray 10/11/18 04:15 IMPRESSION: Mild-moderate mixed interstitial and airspace opacities. Differential diagnosis includes CHF/pulmonary edema, multifocal pneumonia, and chronic interstitial lung disease. Assessment & Plan - Diagnosis (1) Acute exacerbation of CHF (congestive heart failure) Qualifiers: Heart failure type: diastolic Qualified Code(s): I50.33 - Acute on chronic diastolic (congestive) heart failure Is this a current diagnosis for this admission?: Yes (2) Pneumonia Qualifiers: Pneumonia type: due to unspecified organism Laterality: bilateral Lung location: unspecified part of lung Qualified Code(s): J18.9 - Pneumonia, unspecified organism Is this a current diagnosis for this admission?: Yes (3) Hypoxemia requiring supplemental oxygen Is this a current diagnosis for this admission?: Yes (4) Acute UTI Is this a current diagnosis for this admission?: Yes (5) COPD (chronic obstructive pulmonary disease) Qualifiers: COPD type: unspecified COPD Qualified Code(s): J44.9 - Chronic obstructive pulmonary disease, unspecified Is this a current diagnosis for this admission?: Yes (6) Diabetes mellitus type 2 in obese Is this a current diagnosis for this admission?: Yes (7) 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 2 diabetes mellitus Qualifiers: Diabetic foot ulcer location: heel Non-pressure ulcer stage: unspecified non-pressure ulcer stage Qualified Code(s): E11.621 - Type 2 diabetes mellitus with foot ulcer; L97.429 - Non-pressure chronic ulcer of left heel and midfoot with unspecified severity; L97.429 - Non-pressure chronic ulcer of left heel and midfoot with unspecified severity; L97.429 - Non-pressure chronic ulcer of left heel and midfoot with unspecified severity; L97.429 - Non-pressure chronic ulcer of left heel and midfoot with unspecified severity Is this a current diagnosis for this admission?: Yes (8) Hypertension Qualifiers: Hypertension type: essential hypertension Qualified Code(s): I10 - Essential (primary) hypertension Is this a current diagnosis for this admission?: Yes (9) CAD (coronary artery disease) Qualifiers: Coronary Disease-Associated Artery/Lesion type: unspecified vessel or lesion type [place] vs. transplanted heart: [place] heart Associated angina: without angina Qualified Code(s): I25.10 - Atherosclerotic heart disease of [place] coronary artery without angina pectoris Is this a current diagnosis for this admission?: Yes (10) Coronary artery disease Qualifiers: Coronary Disease-Associated Artery/Lesion type: bypass graft Associated angina: with stable angina Is this a current diagnosis for this admission?: Yes (11) Hyperlipidemia Qualifiers: Hyperlipidemia type: unspecified Qualified Code(s): E78.5 - Hyperlipidemia, unspecified Is this a current diagnosis for this admission?: Yes (12) Morbid obesity with BMI of 40.0-44.9, adult Is this a current diagnosis for this admission?: Yes - Time Time Spent with patient: 25-34 minutes Medications reviewed and adjusted accordingly: Yes Anticipated discharge: Home with Homehealth Within: Other - Inpatient Certification Based on my medical assessment, after consideration of the patient's comorbidities, presenting symptoms, or acuity I expect that the services needed warrant INPATIENT care.: Yes I certify that my determination is in accordance with my understanding of Medicare's requirements for reasonable and necessary INPATIENT services [42 CFR 412.3e].: Yes Medical Necessity: Significant Comorbidiites Make Outpatient Treatment Too Risky, Need Close Monitoring Due to Risk of Patient Decompensation, Need For Continuous Telemetry Monitoring, Need for IV Antibiotics, Risk of Complication if Not Cared For in Hospital, Risk of Diagnosis Which Will Require Inpatient Eval/Care/Monitoring Post Hospital Care: D/C Dredge Deckhand Documentation - Plan Summary Plan Summary: D/C IV Lasix. Restart on Lasix 60 mg p.o daily. Continue all other current medication management. Follow up on blood culture findings.
[2018-10-14] MEDS: OXYCODONE HCL IR 5 MG TABLET PO PRN (12:53)
[2018-10-14] MEDS: OXYCODONE-ACETAMINOPHEN 5-325 MG TABLET PO PRN ×2 (12:54→22:32)
[2018-10-14] MEDS ORDERED: INSULIN GLARGINE,HUM.REC.ANLOG 1,000 UNIT/10 ML VIAL (PYX) SUBCUT ONE (22:27)
[2018-10-14] MEDS: ATORVASTATIN CALCIUM 20 MG TABLET PO SCH (22:31)
[2018-10-15] MEDS: SIMETHICONE 80 MG TAB.CHEW PO SCH ×5 (01:54→23:22)
[2018-10-15] MEDS: OXYCODONE HCL IR 5 MG TABLET PO PRN (04:48)
[2018-10-15] MEDS: OXYCODONE-ACETAMINOPHEN 5-325 MG TABLET PO PRN ×2 (04:49→21:10)
[2018-10-15] MEDS: GABAPENTIN 100 MG CAPSULE PO SCH ×3 (05:40→21:10)
[2018-10-15] MEDS ORDERED: FUROSEMIDE 20 MG TABLET PO SCH (08:00)
[2018-10-15] MEDS: FUROSEMIDE 40 MG TABLET PO SCH (08:06)
[2018-10-15] MEDS: LEVOFLOXACIN 500 MG/D5W RTU 500 MG/100 ML RTUPB IV SCH (09:23)
[2018-10-15] MEDS: SODIUM CHLORIDE NASAL SPRAY 44 ML NASL SCH ×4 (09:24→21:11)
[2018-10-15] MEDS: ASPIRIN 81 MG TABLET, ENT COATED PO SCH (09:24)
[2018-10-15] MEDS: CLOPIDOGREL BISULFATE 75 MG TABLET PO SCH (09:24)
[2018-10-15] MEDS: INSULIN LISPRO 100 UNIT/ML 3 ML VIAL SUBCUT SCH ×4 (09:24→21:09)
[2018-10-15] MEDS: ASCORBIC ACID 500 MG TABLET PO SCH (09:25)
[2018-10-15] MEDS: FAMOTIDINE 20 MG TABLET PO SCH ×2 (09:25→17:46)
[2018-10-15] MEDS: INSULIN GLARGINE,HUM.REC.ANLOG 1,000 UNIT/10 ML VIAL SUBCUT SCH ×2 (09:25→21:10)
[2018-10-15] MEDS: AMLODIPINE BESYLATE 10 MG TABLET PO SCH (09:25)
[2018-10-15] MEDS: VALSARTAN 160 MG TABLET PO SCH (09:26)
[2018-10-15] MEDS: APIXABAN 2.5 MG TABLET PO SCH ×2 (09:26→17:46)
[2018-10-15] MEDS: SILVER SULFADIAZINE 1% CREAM 400 GM TP SCH (09:29)
--- NOTE | 2018-10-15 17:52 | PDOC PROGRESS REPORT ---
Subjective Progress Note for:: 10/15/18 Subjective:: No chest pain. Breathing is better. No nausea, vomiting or abdominal pain. No fever or chills. Reason For Visit: ACUTE ON CHRONIC DIASTOLIC CHF,BILATERAL PNEUMONIA Physical Exam Vital Signs: Temp Pulse Resp BP Pulse Ox 98.1 F 75 16 132/66 H 99 10/15/18 08:17 10/15/18 14:00 10/15/18 08:17 10/15/18 08:17 10/15/18 08:17 Intake & Output 10/14/18 10/15/18 10/16/18 06:59 06:59 06:59 Intake Total 1262 1060 100 Output Total 1450 2200 Balance -188 -1140 100 Weight 94.9 kg 94.5 kg Physical Exam: General appearance: PRESENT: no acute distress Head exam: PRESENT: atraumatic, normocephalic Eye exam: PRESENT: conjunctiva pink. ABSENT: pallor, scleral icterus Ear exam: PRESENT: normal external ear exam Mouth exam: PRESENT: moist Teeth exam: PRESENT: poor dentition Respiratory exam: PRESENT: clear to auscultation [place], decreased breath sounds - at lung bases Cardiovascular exam: PRESENT: RRR. ABSENT: diastolic murmur, rubs, systolic murmur GI/Abdominal exam: PRESENT: normal bowel sounds, soft. ABSENT: distended, guarding, mass, organmegaly, rebound, tenderness Extremities exam: PRESENT: pedal edema - improving Musculoskeletal exam: PRESENT: deformity - related to joint involvement with arthritis Neurological exam: PRESENT: alert, awake, oriented to person, oriented to place, oriented to time, oriented to situation, CN II-XII grossly intact. ABSENT: motor sensory deficit Psychiatric exam: PRESENT: appropriate affect, normal mood. ABSENT: homicidal ideation, suicidal ideation Skin exam: PRESENT: dry, warm, other - left heel ulcer dressing satisfactory. Results Laboratory Results: 10/14/18 04:34 10/14/18 04:34 10/11/18 10/11/18 05:51 07:43 Troponin I Cancelled < 0.012 NT-Pro-B Natriuret Pep Cancelled 2900 H Impressions: Chest X-Ray 10/11/18 04:15 IMPRESSION: Mild-moderate mixed interstitial and airspace opacities. Differential diagnosis includes CHF/pulmonary edema, multifocal pneumonia, and chronic interstitial lung disease. Assessment & Plan - Diagnosis (1) Acute exacerbation of CHF (congestive heart failure) Qualifiers: Heart failure type: diastolic Qualified Code(s): I50.33 - Acute on chronic diastolic (congestive) heart failure Is this a current diagnosis for this admission?: Yes (2) Pneumonia Qualifiers: Pneumonia type: due to unspecified organism Laterality: bilateral Lung location: unspecified part of lung Qualified Code(s): J18.9 - Pneumonia, unspecified organism Is this a current diagnosis for this admission?: Yes (3) Hypoxemia requiring supplemental oxygen Is this a current diagnosis for this admission?: Yes (4) Acute UTI Is this a current diagnosis for this admission?: Yes (5) COPD (chronic obstructive pulmonary disease) Qualifiers: COPD type: unspecified COPD Qualified Code(s): J44.9 - Chronic obstructive pulmonary disease, unspecified Is this a current diagnosis for this admission?: Yes (6) Diabetes mellitus type 2 in obese Is this a current diagnosis for this admission?: Yes (7) 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 2 diabetes mellitus Qualifiers: Diabetic foot ulcer location: heel Non-pressure ulcer stage: unspecified non-pressure ulcer stage Qualified Code(s): E11.621 - Type 2 diabetes mellitus with foot ulcer; L97.429 - Non-pressure chronic ulcer of left heel and midfoot with unspecified severity; L97.429 - Non-pressure chronic ulcer of left heel and midfoot with unspecified severity; L97.429 - Non-pressure chronic ulcer of left heel and midfoot with unspecified severity; L97.429 - Non-pressure chronic ulcer of left heel and midfoot with unspecified severity Is this a current diagnosis for this admission?: Yes (8) Hypertension Qualifiers: Hypertension type: essential hypertension Qualified Code(s): I10 - Essenti al (primary) hypertension Is this a current diagnosis for this admission?: Yes (9) CAD (coronary artery disease) Qualifiers: Coronary Disease-Associated Artery/Lesion type: unspecified vessel or lesion type [place] vs. transplanted heart: [place] heart Associated angina: without angina Qualified Code(s): I25.10 - Atherosclerotic heart disease of [place] coronary artery without angina pectoris Is this a current diagnosis for this admission?: Yes (10) Coronary artery disease Qualifiers: Coronary Disease-Associated Artery/Lesion type: bypass graft Associated angina: with stable angina Is this a current diagnosis for this admission?: Yes (11) Hyperlipidemia Qualifiers: Hyperlipidemia type: unspecified Qualified Code(s): E78.5 - Hyperlipidemia, unspecified Is this a current diagnosis for this admission?: Yes (12) Morbid obesity with BMI of 40.0-44.9, adult Is this a current diagnosis for this admission?: Yes - Time Time Spent with patient: 25-34 minutes Medications reviewed and adjusted accordingly: Yes Anticipated discharge: Home with Homehealth Within: Other - Inpatient Certification Based on my medical assessment, after consideration of the patient's comorbidities, presenting symptoms, or acuity I expect that the services needed warrant INPATIENT care.: Yes I certify that my determination is in accordance with my understanding of Medicare's requirements for reasonable and necessary INPATIENT services [42 CFR 412.3e].: Yes Medical Necessity: Significant Comorbidiites Make Outpatient Treatment Too Risky, Need Close Monitoring Due to Risk of Patient Decompensation, Need For Continuous Telemetry Monitoring, Need for IV Antibiotics, Risk of Complication if Not Cared For in Hospital, Risk of Diagnosis Which Will Require Inpatient Eval/Care/Monitoring Post Hospital Care: D/C Provider Contracting Consultant Documentation - Plan Summary Plan Summary: D/C [place] Cath. Encouraged bedside commode usage. D/C IV Levofloxacin. Start on Levofloxacin 500 mg po daily. PT evaluation and intervention. continue all other current medication management.
[2018-10-15] MEDS: ATORVASTATIN CALCIUM 20 MG TABLET PO SCH (21:10)
[2018-10-15] MEDS: CIPROFLOXACIN HCL 750 MG TABLET PO SCH (21:10)
[2018-10-16 04:11] LABS: ABSOLUTE EOSINOPHILS # (AUTO) 0.2 10^3/uL (0.0-0.6); ABSOLUTE LYMPHOCYTES (AUTO) 1.3 10^3/uL (0.5-4.7); ABSOLUTE MONOCYTES (AUTO) 0.9 10^3/uL (0.1-1.4); ABSOLUTE NEUT (AUTO) 4.8 10^3/uL (1.7-8.2); BASOPHILS % (AUTO) 0.5 % (0-2); EOSINOPHILS % (AUTO) 2.4 % (0-6); HEMATOCRIT 24.8 % (36.0-47.0); LYMPHOCYTES % (AUTO) 18.5 % (13-45); MEAN CORPUSCULAR HEMOGLOBIN 29.3 pg (27.0-33.4); MEAN CORPUSCULAR HGB CONC 32.4 g/dL (32.0-36.0); MEAN CORPUSCULAR VOLUME 91 fl (80-97); MONOCYTES % (AUTO) 12.3 % (3-13); PLATELET COUNT 244 10^3/uL (150-450); RED BLOOD COUNT 2.74 10^6/uL (3.72-5.28); RED CELL DISTRIBUTION WIDTH 16.9 % (11.5-14.0); SEGMENTED NEUTROPHILS % (AUTO) 66.3 % (42-78); TOTAL CELLS COUNTED % (AUTO) 100 %; WHITE BLOOD COUNT 7.3 10^3/uL (4.0-10.5)
[2018-10-16 04:38] LABS: ANION GAP 6 (5-19); BLOOD UREA NITROGEN 29 mg/dL (7-20); CARBON DIOXIDE 31 mmol/L (22-30); CHLORIDE 104 mmol/L (98-107); GLUCOSE 113 mg/dL (75-110); POTASSIUM 4.9 mmol/L (3.6-5.0); SODIUM 140.7 mmol/L (137-145)
[2018-10-16] MEDS: GABAPENTIN 100 MG CAPSULE PO SCH ×3 (05:02→21:54)
[2018-10-16] MEDS: SIMETHICONE 80 MG TAB.CHEW PO SCH ×4 (05:02→23:49)
--- NOTE | 2018-10-16 07:43 | PDOC PROGRESS REPORT ---
Subjective Progress Note for:: 10/16/18 Subjective:: No chest pain or difficulty with breathing. No nausea, vomiting or abdominal pain. No fever or chills. Reason For Visit: ACUTE ON CHRONIC DIASTOLIC CHF,BILATERAL PNEUMONIA Physical Exam Vital Signs: Temp Pulse Resp BP Pulse Ox 97.6 F 71 14 136/69 H 98 10/16/18 03:01 10/16/18 03:01 10/16/18 03:01 10/16/18 03:01 10/16/18 03:01 Intake & Output 10/15/18 10/16/18 10/17/18 06:59 06:59 06:59 Intake Total 1060 440 Output Total 2200 2750 Balance -1140 -2310 Weight 94.5 kg 91.8 kg Physical Exam: General appearance: PRESENT: no acute distress Head exam: PRESENT: atraumatic, normocephalic Eye exam: PRESENT: conjunctiva pink. ABSENT: pallor, scleral icterus Ear exam: PRESENT: normal external ear exam Mouth exam: PRESENT: moist Teeth exam: PRESENT: poor dentition Respiratory exam: PRESENT: clear to auscultation jerrica, decreased breath sounds - at lung bases Cardiovascular exam: PRESENT: RRR. ABSENT: diastolic murmur, rubs, systolic murmur GI/Abdominal exam: PRESENT: normal bowel sounds, soft. ABSENT: distended, guarding, mass, organomegaly, rebound, tenderness Extremities exam: PRESENT: pedal edema - improving Musculoskeletal exam: PRESENT: deformity - related to joint involvement with arthritis Neurological exam: PRESENT: alert, awake, oriented to person, oriented to place, oriented to time, oriented to situation, CN II-XII grossly intact. ABSENT: motor sensory deficit Psychiatric exam: PRESENT: appropriate affect, normal mood. ABSENT: homicidal ideation, suicidal ideation Skin exam: PRESENT: dry, warm, other - left heel ulcer dressing satisfactory. Results Laboratory Results: 10/16/18 03:44 10/16/18 03:44 10/16/18 10/16/18 03:44 03:44 WBC 7.3 RBC 2.74 L Hgb 8.0 L Hct 24.8 L MCV 91 MCH 29.3 MCHC 32.4 RDW 16.9 H Plt Count 244 Seg Neutrophils % 66.3 Lymphocytes % 18.5 Monocytes % 12.3 Eosinophils % 2.4 Basophils % 0.5 Absolute Neutrophils 4.8 Absolute Lymphocytes 1.3 Absolute Monocytes 0.9 Absolute Eosinophils 0.2 Absolute Basophils 0.0 Sodium 140.7 Potassium 4.9 Chloride 104 Carbon Dioxide 31 H Anion Gap 6 BUN 29 H Creatinine 0.99 Est GFR ( Amer) > 60 Est GFR (Non-Af Amer) 56 L Glucose 113 H Calcium 9.0 10/11/18 05:51 Blood Blood Culture - Final NO GROWTH IN 5 DAYS 10/11/18 10/11/18 05:51 07:43 Troponin I Cancelled < 0.012 NT-Pro-B Natriuret Pep Cancelled 2900 H Assessment & Plan - Diagnosis (1) Acute exacerbation of CHF (congestive heart failure) Qualifiers: Heart failure type: diastolic Qualified Code(s): I50.33 - Acute on chronic diastolic (congestive) heart failure Is this a current diagnosis for this admission?: Yes (2) Pneumonia Qualifiers: Pneumonia type: due to unspecified organism Laterality: bilateral Lung location: unspecified part of lung Qualified Code(s): J18.9 - Pneumonia, unspecified organism Is this a current diagnosis for this admission?: Yes (3) Hypoxemia requiring supplemental oxygen Is this a current diagnosis for this admission?: Yes (4) Acute UTI Is this a current diagnosis for this admission?: Yes (5) COPD (chronic obstructive pulmonary disease) Qualifiers: COPD type: unspecified COPD Qualified Code(s): J44.9 - Chronic obstructive pulmonary disease, unspecified Is this a current diagnosis for this admission?: Yes (6) Diabetes mellitus type 2 in obese Is this a current diagnosis for this admission?: Yes Plan: Decrease Lantus insulin to 30 units q12 hours due to reported episodes of hypoglycemia (7) 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 2 diabetes mellitus Qualifiers: Diabetic foot ulcer location: heel Non-pressure ulcer stage: unspecified non-pressure ulcer stage Qualified Code(s): E11.621 - Type 2 diabetes mellitus with foot ulcer; L97.429 - Non-pressure chronic ulcer of left heel and midfoot with unspecified severity; L97.429 - Non-pressure chronic ulcer of left heel and midfoot with unspecified severity; L97.429 - Non-pressure chronic ulcer of left heel and midfoot with unspecified severity; L97.429 - Non-pressure chronic ulcer of left heel and midfoot with unspecified severity Is this a current diagnosis for this admission?: Yes (8) Hypertension Qualifiers: Hypertension type: essential hypertension Qualified Code(s): I10 - Essential (primary) hypertension Is this a current diagnosis for this admission?: Yes (9) CAD (coronary artery disease) Qualifiers: Coronary Disease-Associated Artery/Lesion type: unspecified vessel or lesion type [place] vs. transplanted heart: [place] heart Associated angina: without angina Qualified Code(s): I25.10 - Atherosclerotic heart disease of [place] coronary artery without angina pectoris Is this a current diagnosis for this admission?: Yes (10) Coronary artery disease Qualifiers: Coronary Disease-Associated Artery/Lesion type: bypass graft Associated angina: with stable angina Is this a current diagnosis for this admission?: Yes (11) Hyperlipidemia Qualifiers: Hyperlipidemia type: unspecified Qualified Code(s): E78.5 - Hyperlipidemia, unspecified Is this a current diagnosis for this admission?: Yes (12) Obesity (BMI 30-39.9) Is this a current diagnosis for this admission?: Yes Plan: Encouraged dietary restriction and improve physical activities as her condition gets better. - Time Time Spent with patient: 25-34 minutes Medications reviewed and adjusted accordingly: Yes Anticipated discharge: Home with Homehealth Within: Other - Inpatient Certification Based on my medical assessment, after consideration of the patient's comorbidities, presenting symptoms, or acuity I expect that the services needed warrant INPATIENT care.: Yes I certify that my determination is in accordance with my understanding of Medicare's requirements for reasonable and necessary INPATIENT services [42 CFR 412.3e].: Yes Medical Necessity: Significant Comorbidiites Make Outpatient Treatment Too Risky, Need Close Monitoring Due to Risk of Patient Decompensation, Need For Continuous Telemetry Monitoring, Risk of Complication if Not Cared For in Hospital, Risk of Diagnosis Which Will Require Inpatient Eval/Care/Monitoring Post Hospital Care: D/C Division Human Resources Manager Documentation - Plan Summary Plan Summary: Obtain CBC with diff, BMP. Continue current medication management.
--- NOTE | 2018-10-16 08:36 | RADIOLOGY REPORT (SQ) ---
EXAM DESCRIPTION: CHEST SINGLE VIEW COMPLETED DATE/TIME: 10/15/2018 9:04 pm REASON FOR STUDY: Pneumonia COMPARISON: 10/11/2018. NUMBER OF VIEWS: One view. TECHNIQUE: Single frontal radiographic view of the chest acquired. LIMITATIONS: None. FINDINGS: LUNGS AND PLEURA: No opacities, masses or pneumothorax. No pleural effusion. MEDIASTINUM AND HILAR STRUCTURES: Stable. HEART AND VASCULATURE: Cardiac enlargement. Vascular congestion. BONES: No acute findings. HARDWARE: CABG. OTHER: No other significant finding. IMPRESSION: CARDIAC ENLARGEMENT. VASCULAR CONGESTION. TECHNICAL DOCUMENTATION: JOB ID: [id number] 1984 [employer]- All Rights Reserved Reading location - IP/workstation name: [email or web address]
[2018-10-16] MEDS: INSULIN LISPRO 100 UNIT/ML 3 ML VIAL SUBCUT SCH ×4 (08:39→21:53)
[2018-10-16] MEDS: OXYCODONE HCL IR 5 MG TABLET PO PRN ×2 (08:48→21:51)
[2018-10-16] MEDS: FERROUS SULFATE 325 MG TABLET PO SCH ×2 (08:49→15:03)
[2018-10-16] MEDS: FUROSEMIDE 40 MG TABLET PO SCH (08:49)
[2018-10-16] MEDS: OXYCODONE-ACETAMINOPHEN 5-325 MG TABLET PO PRN ×2 (08:49→21:53)
[2018-10-16 08:50] LABS: ABSOLUTE EOSINOPHILS # (AUTO) 0.2 10^3/uL (0.0-0.6); ABSOLUTE LYMPHOCYTES (AUTO) 1.1 10^3/uL (0.5-4.7); ABSOLUTE MONOCYTES (AUTO) 0.7 10^3/uL (0.1-1.4); BASOPHILS % (AUTO) 0.2 % (0-2); EOSINOPHILS % (AUTO) 2.1 % (0-6); HEMATOCRIT 25.9 % (36.0-47.0); HEMOGLOBIN 8.4 g/dL (12.0-15.5); LYMPHOCYTES % (AUTO) 13.4 % (13-45); MEAN CORPUSCULAR HEMOGLOBIN 29.2 pg (27.0-33.4); MEAN CORPUSCULAR HGB CONC 32.4 g/dL (32.0-36.0); MEAN CORPUSCULAR VOLUME 90 fl (80-97); MONOCYTES % (AUTO) 9.3 % (3-13); PLATELET COUNT 238 10^3/uL (150-450); RED BLOOD COUNT 2.87 10^6/uL (3.72-5.28); RED CELL DISTRIBUTION WIDTH 16.7 % (11.5-14.0); TOTAL CELLS COUNTED % (AUTO) 100 %
[2018-10-16 09:12] LABS: ANION GAP 7 (5-19); BLOOD UREA NITROGEN 26 mg/dL (7-20); CALCIUM 9.2 mg/dL (8.4-10.2); CARBON DIOXIDE 31 mmol/L (22-30); CHLORIDE 103 mmol/L (98-107); GLUCOSE 139 mg/dL (75-110); POTASSIUM 4.6 mmol/L (3.6-5.0); SODIUM 140.6 mmol/L (137-145)
[2018-10-16] MEDS: ASCORBIC ACID 500 MG TABLET PO SCH (09:24)
[2018-10-16] MEDS: FAMOTIDINE 20 MG TABLET PO SCH ×2 (09:24→17:28)
[2018-10-16] MEDS: APIXABAN 2.5 MG TABLET PO SCH ×2 (09:24→17:29)
[2018-10-16] MEDS: ASPIRIN 81 MG TABLET, ENT COATED PO SCH (09:24)
[2018-10-16] MEDS: SODIUM CHLORIDE NASAL SPRAY 44 ML NASL SCH ×4 (09:25→21:46)
[2018-10-16] MEDS: INSULIN GLARGINE,HUM.REC.ANLOG 1,000 UNIT/10 ML VIAL SUBCUT SCH ×2 (09:25→21:54)
[2018-10-16] MEDS: AMLODIPINE BESYLATE 10 MG TABLET PO SCH (09:26)
[2018-10-16] MEDS: CIPROFLOXACIN HCL 750 MG TABLET PO SCH ×2 (09:28→21:55)
[2018-10-16] MEDS: SACUBITRIL/VALSARTAN 24 MG/26 MG TABLET PO SCH ×2 (09:28→17:29)
[2018-10-16] MEDS: SILVER SULFADIAZINE 1% CREAM 400 GM TP SCH (09:29)
[2018-10-16] MEDS ORDERED: LEVOFLOXACIN 500 MG TABLET PO SCH (10:00)
[2018-10-16] MEDS: MULTIVITAMINS W-IRON TABLET, CHEWABLE PO SCH (12:20)
[2018-10-16 19:17] LABS: CREATINE KINASE MB 0.54 ng/mL (<4.55)
[2018-10-16 19:19] LABS: TROPONIN I < 0.012 ng/mL
[2018-10-16] MEDS: ATORVASTATIN CALCIUM 20 MG TABLET PO SCH (21:54)
[2018-10-16] MEDS: RANOLAZINE 500 MG TAB.SR.12H PO SCH (21:56)
[2018-10-17] MEDS: SIMETHICONE 80 MG TAB.CHEW PO SCH ×3 (05:05→18:10)
[2018-10-17] MEDS: GABAPENTIN 100 MG CAPSULE PO SCH ×3 (05:05→23:04)
[2018-10-17 06:06] LABS: CREATINE KINASE MB < 0.22 ng/mL (<4.55); TROPONIN I < 0.012 ng/mL
[2018-10-17] MEDS: INSULIN LISPRO 100 UNIT/ML 3 ML VIAL SUBCUT SCH ×4 (08:09→23:00)
--- NOTE | 2018-10-17 08:14 | EKG REPORT ---
SEVERITY:- ABNORMAL ECG - SINUS RHYTHM PROBABLE LEFT ATRIAL ABNORMALITY LEFT VENTRICULAR HYPERTROPHY NONSPECIFIC ST-T CHANGES LATERAL LEADS. : Confirmed by: Yobany Marino MD 17-Oct-2018 08:14:00
[2018-10-17] MEDS: OXYCODONE HCL IR 5 MG TABLET PO PRN ×2 (09:15→18:10)
[2018-10-17] MEDS: SACUBITRIL/VALSARTAN 24 MG/26 MG TABLET PO SCH ×2 (09:16→18:13)
[2018-10-17] MEDS: ASPIRIN 81 MG TABLET, ENT COATED PO SCH (09:16)
[2018-10-17] MEDS: ASCORBIC ACID 500 MG TABLET PO SCH (09:16)
[2018-10-17] MEDS: OXYCODONE-ACETAMINOPHEN 5-325 MG TABLET PO PRN ×2 (09:16→18:10)
[2018-10-17] MEDS: CIPROFLOXACIN HCL 750 MG TABLET PO SCH ×2 (09:16→23:04)
[2018-10-17] MEDS: RANOLAZINE 500 MG TAB.SR.12H PO SCH ×2 (09:16→23:04)
[2018-10-17] MEDS: FAMOTIDINE 20 MG TABLET PO SCH ×2 (09:16→18:11)
[2018-10-17] MEDS: FUROSEMIDE 40 MG TABLET PO SCH (09:16)
[2018-10-17] MEDS: APIXABAN 2.5 MG TABLET PO SCH ×2 (09:16→18:10)
[2018-10-17] MEDS: AMLODIPINE BESYLATE 10 MG TABLET PO SCH (09:16)
[2018-10-17] MEDS: FERROUS SULFATE 325 MG TABLET PO SCH ×2 (09:16→18:10)
[2018-10-17] MEDS: SODIUM CHLORIDE NASAL SPRAY 44 ML NASL SCH ×4 (09:17→23:05)
[2018-10-17] MEDS: SILVER SULFADIAZINE 1% CREAM 400 GM TP SCH (09:21)
[2018-10-17] MEDS: INSULIN GLARGINE,HUM.REC.ANLOG 1,000 UNIT/10 ML VIAL SUBCUT SCH ×2 (09:28→23:05)
[2018-10-17] MEDS: MULTIVITAMINS W-IRON TABLET, CHEWABLE PO SCH (12:55)
[2018-10-17 17:21] LABS: CREATINE KINASE MB 0.34 ng/mL (<4.55)
[2018-10-17 17:25] LABS: TROPONIN I < 0.012 ng/mL
--- NOTE | 2018-10-17 17:39 | PDOC PROGRESS REPORT ---
Subjective Progress Note for:: 10/17/18 Subjective:: Patient continue to reported some pressure in her chest more to right side. No nausea or vomiting. No abdominal pain. No fever or chills. Reason For Visit: ACUTE ON CHRONIC DIASTOLIC CHF,BILATERAL PNEUMONIA Physical Exam Vital Signs: Temp Pulse Resp BP Pulse Ox 98.3 F 76 16 122/53 L 93 10/17/18 12:09 10/17/18 12:09 10/17/18 12:09 10/17/18 12:09 10/17/18 12:09 Intake & Output 10/16/18 10/17/18 10/18/18 06:59 06:59 06:59 Intake Total 440 1114 576 Output Total 2750 347 Balance -2310 767 576 Weight 91.8 kg 92.3 kg Physical Exam: General appearance: PRESENT: no acute distress Head exam: PRESENT: atraumatic, normocephalic Eye exam: PRESENT: conjunctiva pink. ABSENT: pallor, scleral icterus Ear exam: PRESENT: normal external ear exam Mouth exam: PRESENT: moist Teeth exam: PRESENT: poor dentition Respiratory exam: PRESENT: clear to auscultation jerrica, decreased breath sounds - at lung bases Cardiovascular exam: PRESENT: RRR. ABSENT: diastolic murmur, rubs, systolic murmur GI/Abdominal exam: PRESENT: normal bowel sounds, soft. ABSENT: distended, guarding, mass, organomegaly, rebound, tenderness Extremities exam: PRESENT: resolved pedal edema. Musculoskeletal exam: PRESENT: deformity - related to joint involvement with arthritis Neurological exam: PRESENT: alert, awake, oriented to person, oriented to place, oriented to time, oriented to situation, CN II-XII grossly intact. ABSENT: motor sensory deficit Psychiatric exam: PRESENT: appropriate affect, normal mood. ABSENT: homicidal ideation, suicidal ideation Skin exam: PRESENT: dry, warm, other - left heel ulcer dressing satisfactory. Results Laboratory Results: 10/16/18 08:35 10/16/18 08:35 10/11/18 10/11/18 10/16/18 05:51 07:43 18:16 Creatine Kinase 46 CK-MB (CK-2) Troponin I Cancelled < 0.012 NT-Pro-B Natriuret Pep Cancelled 2900 H 10/16/18 10/17/18 10/17/18 18:16 04:27 04:27 Creatine Kinase 36 CK-MB (CK-2) 0.54 < 0.22 Troponin I < 0.012 < 0.012 NT-Pro-B Natriuret Pep 10/17/18 10/17/18 16:35 16:35 Creatine Kinase 33 CK-MB (CK-2) 0.34 Troponin I < 0.012 NT-Pro-B Natriuret Pep Impressions: Chest X-Ray 10/15/18 00:00 IMPRESSION: CARDIAC ENLARGEMENT. VASCULAR CONGESTION. Assessment & Plan - Diagnosis (1) Acute exacerbation of CHF (congestive heart failure) Qualifiers: Heart failure type: diastolic Qualified Code(s): I50.33 - Acute on chronic diastolic (congestive) heart failure Is this a current diagnosis for this admission?: Yes (2) Pneumonia Qualifiers: Pneumonia type: due to unspecified organism Laterality: bilateral Lung location: unspecified part of lung Qualified Code(s): J18.9 - Pneumonia, unspecified organism Is this a current diagnosis for this admission?: Yes (3) Hypoxemia requiring supplemental oxygen Is this a current diagnosis for this admission?: Yes (4) Acute UTI Is this a current diagnosis for this admission?: Yes (5) COPD (chronic obstructive pulmonary disease) Qualifiers: COPD type: unspecified COPD Qualified Code(s): J44.9 - Chronic obstructive pulmonary disease, unspecified Is this a current diagnosis for this admission?: Yes (6) Diabetes mellitus type 2 in obese Is this a current diagnosis for this admission?: Yes (7) 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 2 diabetes mellitus Qualifiers: Diabetic foot ulcer location: heel Non-pressure ulcer stage: unspecified non-pressure ulcer stage Qualified Code(s): E11.621 - Type 2 diabetes mellitus with foot ulcer; L97.429 - Non-pressure chronic ulcer of left heel and midfoot with unspecified severity; L97.429 - Non-pressure chronic ulcer of left heel and midfoot with unspecified severity; L97.429 - Non-pressure chronic ulcer of left heel and midfoot with unspecified severity; L97.429 - Non-pressure chronic ulcer of left heel and midfoot with unspecified severity Is this a current diagnosis for this admission?: Yes (8) Hypertension Qualifiers: Hypertension type: essential hypertension Qualified Code(s): I10 - Essential (primary) hypertension Is this a current diagnosis for this admission?: Yes (9) CAD (coronary artery disease) Qualifiers: Coronary Disease-Associated Artery/Lesion type: unspecified vessel or lesion type [place] vs. transplanted heart: [place] heart Associated angina: without angina Qualified Code(s): I25.10 - Atherosclerotic heart disease of [place] coronary artery without angina pectoris Is this a current diagnosis for this admission?: Yes (10) Coronary artery disease Qualifiers: Coronary Disease-Associated Artery/Lesion type: bypass graft Associated angina: with stable angina Is this a current diagnosis for this admission?: Yes (11) Hyperlipidemia Qualifiers: Hyperlipidemia type: unspecified Qualified Code(s): E78.5 - Hyperlipidemia, unspecified Is this a current diagnosis for this admission?: Yes (12) Obesity (BMI 30-39.9) Is this a current diagnosis for this admission?: Yes - Time Time Spent with patient: 25-34 minutes Medications reviewed and adjusted accordingly: Yes Anticipated discharge: Home with Homehealth Within: Other - Inpatient Certification Based on my medical assessment, after consideration of the patient's comorbidities, presenting symptoms, or acuity I expect that the services needed warrant INPATIENT care.: Yes I certify that my determination is in accordance with my understanding of Medicare's requirements for reasonable and necessary INPATIENT services [42 CFR 412.3e].: Yes Medical Necessity: Significant Comorbidiites Make Outpatient Treatment Too Risk y, Need Close Monitoring Due to Risk of Patient Decompensation, Need For Continuous Telemetry Monitoring, Risk of Complication if Not Cared For in Hospital, Risk of Diagnosis Which Will Require Inpatient Eval/Care/Monitoring Post Hospital Care: D/C Word Processor 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 Possible discharge in am.
--- NOTE | 2018-10-17 18:46 | EKG REPORT ---
SEVERITY:- ABNORMAL ECG - SINUS RHYTHM PROBABLE LEFT ATRIAL ABNORMALITY LEFT VENTRICULAR HYPERTROPHY : Confirmed by: Yobany Marino MD 17-Oct-2018 18:45:54
[2018-10-17] MEDS: ATORVASTATIN CALCIUM 20 MG TABLET PO SCH (23:04)
[2018-10-18] MEDS: SIMETHICONE 80 MG TAB.CHEW PO SCH ×4 (00:41→17:20)
[2018-10-18] MEDS: GABAPENTIN 100 MG CAPSULE PO SCH ×2 (06:18→13:16)
[2018-10-18] MEDS: OXYCODONE-ACETAMINOPHEN 5-325 MG TABLET PO PRN (06:23)
[2018-10-18] MEDS: OXYCODONE HCL IR 5 MG TABLET PO PRN (06:24)
[2018-10-18] MEDS: INSULIN LISPRO 100 UNIT/ML 3 ML VIAL SUBCUT SCH ×3 (08:12→16:05)
[2018-10-18] MEDS: FUROSEMIDE 40 MG TABLET PO SCH (08:16)
[2018-10-18] MEDS: FERROUS SULFATE 325 MG TABLET PO SCH ×2 (08:16→16:10)
[2018-10-18] MEDS: SODIUM CHLORIDE NASAL SPRAY 44 ML NASL SCH ×3 (08:16→16:10)
[2018-10-18] MEDS: RANOLAZINE 500 MG TAB.SR.12H PO SCH (09:11)
[2018-10-18] MEDS: APIXABAN 2.5 MG TABLET PO SCH ×2 (09:11→17:20)
[2018-10-18] MEDS: ASCORBIC ACID 500 MG TABLET PO SCH (09:11)
[2018-10-18] MEDS: ASPIRIN 81 MG TABLET, ENT COATED PO SCH (09:11)
[2018-10-18] MEDS: SACUBITRIL/VALSARTAN 24 MG/26 MG TABLET PO SCH ×2 (09:12→17:19)
[2018-10-18] MEDS: CIPROFLOXACIN HCL 750 MG TABLET PO SCH (09:12)
[2018-10-18] MEDS: AMLODIPINE BESYLATE 10 MG TABLET PO SCH (09:12)
[2018-10-18] MEDS: SILVER SULFADIAZINE 1% CREAM 400 GM TP SCH (09:13)
[2018-10-18] MEDS: INSULIN GLARGINE,HUM.REC.ANLOG 1,000 UNIT/10 ML VIAL SUBCUT SCH (09:17)
[2018-10-18] MEDS: FAMOTIDINE 20 MG TABLET PO SCH ×2 (09:17→17:20)
[2018-10-18] MEDS: MULTIVITAMINS W-IRON TABLET, CHEWABLE PO SCH (12:01)
--- NOTE | 2018-10-18 16:43 | PDOC DISCHARGE SUMMARY ---
General - Admit/Disc Date/PCP Admission Date/Primary Care Provider: 10/11/18 09:23 STEPHAN MICHELET Discharge Date: 10/18/18 - Discharge Diagnosis (1) Acute exacerbation of CHF (congestive heart failure) Is this a current diagnosis for this admission?: Yes (2) Pneumonia Is this a current diagnosis for this admission?: Yes (3) Hypoxemia requiring supplemental oxygen Is this a current diagnosis for this admission?: Yes (4) Acute UTI Is this a current diagnosis for this admission?: Yes (5) COPD (chronic obstructive pulmonary disease) Is this a current diagnosis for this admission?: Yes (6) Diabetes mellitus type 2 in obese Is this a current diagnosis for this admission?: Yes (7) 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 2 diabetes mellitus Is this a current diagnosis for this admission?: Yes (8) Hypertension Is this a current diagnosis for this admission?: Yes (9) CAD (coronary artery disease) Is this a current diagnosis for this admission?: Yes (10) Coronary artery disease Is this a current diagnosis for this admission?: Yes (11) Hyperlipidemia Is this a current diagnosis for this admission?: Yes (12) Obesity (BMI 30-39.9) Is this a current diagnosis for this admission?: Yes - Additional Information Resuscitation Status: Full Code Discharge Diet: Cardiac, Diabetic Discharge Activity: Activity As Tolerated, Balance Activity w/Rest, Weigh Daily Prescriptions: Amlodipine Besylate [Norvasc 10 mg Tablet] 10 mg PO DAILY #30 tablet Apixaban [Eliquis 2.5 mg Tablet] 2.5 mg PO BID #60 tablet Ascorbic Acid [Vitamin C 500 mg Tablet] 500 mg PO DAILY #30 tablet Aspirin [Ecotrin 81 mg EC Tablet] 81 mg PO DAILY #30 tabec Atorvastatin Calcium [Lipitor 20 mg Tablet] 20 mg PO QHS #30 tablet Ciprofloxacin HCl [Cipro 750 mg Tablet] 750 mg PO Q12 #56 tablet Docusate Sodium [Colace] 100 mg PO BIDP PRN #60 capsule PRN Reason: Famotidine [Pepcid] 20 mg PO BID #60 tablet Ferrous Sulfate [Feosol 325 mg Tablet] 325 mg PO BIDACBS #60 tablet Furosemide [Lasix 20 mg Tablet] 60 mg PO QAM #90 tablet Gabapentin [Neurontin 100 mg Capsule] 100 mg PO TID #90 capsule Lantus Solostar 30 units SUBCUT BID #5 Nitroglycerin [Nitrostat 0.4 mg (1/150 Gr) Tabs 25/Bottle] 1 tab SL Q5MP PRN #1 bottle PRN Reason: FOR CHEST PAIN Oxycodone HCl/Acetaminophen [Percocet 7.5-325 mg Tablet] 1 each PO Q6HP PRN #60 tablet PRN Reason: Ranolazine [Ranexa 500 mg Tab.sr] 500 mg PO Q12 #60 tab.sr.12h Sacubitril/Valsartan [Entresto 24 mg/26 mg Tablet] 1 tab PO BID #60 tablet Simethicone [Mylicon 80 mg Chewable Tablet] 80 mg PO Q6 #120 tab.chew Home Medications: Insulin Aspart [Novolog Flexpen] 0 unit SUBCUT .SLD SCALE 10/11/18 Amlodipine Besylate [Norvasc 10 mg Tablet] 10 mg PO DAILY #30 tablet 10/18/18 Apixaban [Eliquis 2.5 mg Tablet] 2.5 mg PO BID #60 tablet 10/18/18 Ascorbic Acid [Vitamin C 500 mg Tablet] 500 mg PO DAILY #30 tablet 10/18/18 Aspirin [Ecotrin 81 mg EC Tablet] 81 mg PO DAILY #30 tabec 10/18/18 Atorvastatin Calcium [Lipitor 20 mg Tablet] 20 mg PO QHS #30 tablet 10/18/18 Ciprofloxacin HCl [Cipro 750 mg Tablet] 750 mg PO Q12 #56 tablet 10/18/18 Docusate Sodium [Colace] 100 mg PO BIDP PRN #60 capsule 10/18/18 Famotidine [Pepcid] 20 mg PO BID #60 tablet 10/18/18 Ferrous Sulfate [Feosol 325 mg Tablet] 325 mg PO BIDACBS #60 tablet 10/18/18 Furosemide [Lasix 20 mg Tablet] 60 mg PO QAM #90 tablet 10/18/18 Gabapentin [Neurontin 100 mg Capsule] 100 mg PO TID #90 capsule 10/18/18 Lantus Solostar 30 units SUBCUT BID #5 10/18/18 Nitroglycerin [Nitrostat 0.4 mg (1/150 Gr) Tabs 25/Bottle] 1 tab SL Q5MP PRN #1 bottle 10/18/18 Oxycodone HCl/Acetaminophen [Percocet 7.5-325 mg Tablet] 1 each PO Q6HP PRN #60 tablet 10/18/18 Ranolazine [Ranexa 500 mg Tab.sr] 500 mg PO Q12 #60 tab.sr.12h 10/18/18 Sacubitril/Valsartan [Entresto 24 mg/26 mg Tablet] 1 tab PO BID #60 tablet 10/18/18 Simethicone [Mylicon 80 mg Chewable Tablet] 80 mg PO Q6 #120 tab.chew 10/18/18 History of Present Illness Patient complains of: Difficulty with breathing History of Present Illness: JAVIER BURGER is a 63 year old female known to my practice who recently was discharged from [facility] in [place], [place] for acute rehabilitation center following protracted hospitalization at [facility]. he presented to the ED with two days complain of difficulty with breathing and laying down. She denied any chest pain, palpitation, diaphoresis, nausea, or vomiting. She reported associated wheezing and nonproductive cough. She denied fever or chills. She reported compliance with her medication and dietary restrictions. She reported that her leg swelling has been about the same since her discharge from the acute rehabilitation facility. Her initial ED evaluation was remarkable for abnormal chest X ray suggestive for possible air space disease process versus CHF. Her urinalysis did suggest possible UTI. Her NT-Pro was elevated but comparatively better to her previous level at this facility. Her morbidities include Congestive Heart Failure, Coronary Artery Disease with old [place], Hypertension, Hyperlipidemia, Peripheral Vascular Disease, stroke without significant residual deficit, Diabetes mellitus type 2 with multiple complications, Diverticulosis, Gastroesophageal Reflux Disease, Osteoarthritis and chronic pain syndrome. She has chronic wound on her left foot. She was advised hospitalization for further evaluation and management. Hospital Course Hospital Course: Patient was managed with IV Lasix and fluid restriction. Her symptoms did improved. Her medication reconciliation was completed based on her discharged regimen from [place], [place] during the later part of this admission. She was treated for possible UTI although her urine culture was not completed. Her blood culture was no growth x 5 days. 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 She was schedule for total 35 days therapy following her discharge from [facility] and she will continue treatment for 28 days upon discharge from the hospital today. She was restarted on Ranexa ER 500 mg p.o bid due to recurrent complain about pressure like feeling in her chest during later part of this hospitalization although her electrocardiogram and cardiac enzymes were within normal range. Her Lantus Insulin was decreased to 30 units subcut qac breakfast and dinner due to episodes of fasting hypoglycemia during this hospitalization. She will be discharge home today with home health agency service for her right foot wound dressing and rehabilitation. she will follow up in the office as instructed upon discharge. Physical Exam Vital Signs: Temp Pulse Resp BP Pulse Ox 98.1 F 72 20 118/59 L 100 10/18/18 12:23 10/18/18 14:00 10/18/18 12:23 10/18/18 12:23 10/18/18 12:23 Intake & Output 10/17/18 10/18/18 10/19/18 06:59 06:59 06:59 Intake Total 1114 1176 444 Output Total 347 175 Balance 767 1001 444 Weight 92.3 kg 93.2 kg Physical Exam: General appearance: PRESENT: no acute distress Head exam: PRESENT: atraumatic, normocephalic Eye exam: PRESENT: conjunctiva pink. ABSENT: pallor, scleral icterus Ear exam: PRESENT: normal external ear exam Mouth exam: PRESENT: moist Teeth exam: PRESENT: poor dentition Respiratory exam: PRESENT: clear to auscultation jerrica, decreased breath sounds - at lung bases Cardiovascular exam: PRESENT: RRR. ABSENT: diastolic murmur, rubs, systolic murmur GI/Abdominal exam: PRESENT: normal bowel sounds, soft. ABSENT: distended, guarding, mass, organomegaly, rebound, tenderness Extremities exam: PRESENT: resolved pedal edema. Musculoskeletal exam: PRESENT: deformity - related to joint involvement with arthritis Neurological exam: PRESENT: alert, awake, oriented to person, oriented to place, oriented to time, oriented to situation, CN II-XII grossly intact. ABSENT: motor sensory deficit Psychiatric exam: PRESENT: appropriate affect, normal mood. ABSENT: homicidal ideation, suicidal ideation Skin exam: PRESENT: dry, warm, other - left heel ulcer dressing satisfactory. Results Laboratory Results: 10/16/18 08:35 10/16/18 08:35 10/11/18 10/11/18 10/16/18 05:51 07:43 18:16 Creatine Kinase 46 CK-MB (CK-2) Troponin I Cancelled < 0.012 NT-Pro-B Natriuret Pep Cancelled 2900 H 10/16/18 10/17/18 10/17/18 18:16 04:27 04:27 Creatine Kinase 36 CK-MB (CK-2) 0.54 < 0.22 Troponin I < 0.012 < 0.012 NT-Pro-B Natriuret Pep 10/17/18 10/17/18 16:35 16:35 Creatine Kinase 33 CK-MB (CK-2) 0.34 Troponin I < 0.012 NT-Pro-B Natriuret Pep Impressions: Chest X-Ray 10/15/18 00:00 IMPRESSION: CARDIAC ENLARGEMENT. VASCULAR CONGESTION. Qualifiers - * PATIENT BEING DISCHARGED WITH ANY OF THE FOLLOWING DIAGNOSIS: No Acute Heart Failure - Is this a Heart Failure Patient?: Yes Documentation of LVEF assessment?: Yes - 10/09/2017 reported normal LVEF with grade II/ mild to moderate diastolic dysfunction. LVEF < 40%?: No- if no continue to question #3 3. Anticoagulant therapy for permanect/persistent/paraoxysmal Afib or Aflutter: N/A Plan Discharge Plan: D/C home today with home health agency service from [facility], physical therapy and personal aide services. Time Spent: Greater than 30 Minutes
[2018-10-18 17:00] VITALS: BP 113/57
== END 2018-10-18 17:46 | disposition home health service (06) | DRG 291 ==
LOC: ER 04:13 → EH 09:23 → 3W 12:26
PROVIDERS: ADMIT Internal Medicine Geriatric Medicine; ATTEND Internal Medicine Geriatric Medicine
DX: I11.0 Hypertensive heart disease with heart failure (principal); J18.9 Pneumonia, unspecified organism; J44.0 Chronic obstructive pulmonary disease with (acute) lower respiratory infection; N39.0 Urinary tract infection, site not specified; L97.429 Non-pressure chronic ulcer of left heel and midfoot with unspecified severity; E11.621 Type 2 diabetes mellitus with foot ulcer; I50.33 Acute on chronic diastolic (congestive) heart failure; J44.9 Chronic obstructive pulmonary disease, unspecified; I25.10 Atherosclerotic heart disease of native coronary artery without angina pectoris; E78.5 Hyperlipidemia, unspecified; E66.01 Morbid (severe) obesity due to excess calories; E11.51 Type 2 diabetes mellitus with diabetic peripheral angiopathy without gangrene; G89.4 Chronic pain syndrome; M19.90 Unspecified osteoarthritis, unspecified site; Z86.73 Personal history of transient ischemic attack (TIA), and cerebral infarction without residual deficits; Z95.1 Presence of aortocoronary bypass graft; Z79.4 Long term (current) use of insulin; Z79.82 Long term (current) use of aspirin; Z79.899 Other long term (current) drug therapy
CPT/HCPCS: 36415; 51702; 71045; 80048; 80053; 81001; 82550; 82553; 82803; 82962; 83605; 83735; 83880; 84100; 84484; 85025; 87040; 93005; 93010; 94640; 96365; 96366; 96375; 99285; J1815; J1940; J1956; J3490; J7620

== ENCOUNTER 2018-10-24 15:17 | Emergency (ER) | payer MEDICARE, MEDICAID ==
--- NOTE | 2018-10-24 15:59 | ER Document Report ---
ED Medical Screen (RME) - General Chief Complaint: Abscess Stated Complaint: WOUND CHECK Time Seen by Provider: 10/24/18 15:55 Primary Care Provider: STEPHAN TAFOAY MD [Primary Care Provider] - Follow up as needed Mode of Arrival: Wheelchair Notes: Patient presents to the emergency department with reports of abscess to her left medial thigh. Reports she is been seen by 2 providers. Her first provider sent her to wound clinic. The wound clinic packed and took care of her foot abscess but reports they cannot go above the knee. Therefore they packed the abscess in her left thigh and sent her here. She reports the symptoms started Sunday with a itch then changed color, brownish on Sunday. She denies fever, vomiting, diarrhea. Patient is a diabetic. I have greeted and performed a rapid initial assessment of this patient. A comprehensive ED assessment and evaluation of the patient, analysis of test results and completion of the medical decision making process will be conducted by additional ED providers. Dictation of this chart was performed using voice recognition software; therefore, there may be some unintended grammatical errors. TRAVEL OUTSIDE OF THE [place] IN LAST 30 DAYS: No - Related Data Allergies/Adverse Reactions: pregabalin [From Lyrica] Allergy (Verified 10/24/18 15:21) Swelling of hands and face Past Medical History - Past Medical History Cardiac Medical History: Reports: Hx Congestive Heart Failure, Hx Coronary Artery Disease, Hx Heart Attack, Hx Hypercholesterolemia, Hx Hypertension, Hx Peripheral Vascular Disease Denies: Hx Atrial Fibrillation Pulmonary Medical History: Reports: Hx Bronchitis Denies: Hx Asthma, Hx COPD, Hx Pneumonia, Hx Tuberculosis Neurological Medical History: Reports: Hx Cerebrovascular Accident - 2007. Denies: Hx Seizures Endocrine Medical History: Reports: Hx Diabetes Mellitus Type 1, Hx Diabetes Mellitus Type 2 Renal/ Medical History: Denies: Hx End Stage Renal Disease, Hx Peritoneal Dialysis GI Medical History: Reports: Hx Diverticulitis - diverticulosis. Denies: Hx Gastroesophageal Reflux Disease, Hx Hiatal Hernia Musculoskeltal Medical History: Denies Hx Arthritis, Denies Hx Systemic Lupus Erythematosus Skin Medical History: Denies Hx MRSA Psychiatric Medical History: Denies: Hx Bipolar Disorder, Hx Depression Past Surgical History: Reports: Hx Cardiac Surgery - quad bypass, Hx Coronary Artery Bypass Graft - July 31 2011, Hx Tonsillectomy, Hx Vascular Surgery. Denies: Hx Appendectomy, Hx Cardiac Catheterization, Hx Section, Hx Cholecystectomy, Hx Hysterectomy, Hx Mastectomy, Hx Tubal Ligation - Immunizations Immunizations up to date: No Hx Diphtheria, Pertussis, Tetanus Vaccination: Yes History of Influenza Vaccine for 02/2017 - 07/2017 Season: Yes Influenza Administration Date for 02/2017 - 07/2017 Season: 01/05/17 Physical Exam - Vital signs Vitals: Temp Pulse Resp BP Pulse Ox 98.3 F 84 14 150/72 H 94 10/24/18 15:27 10/24/18 15:27 10/24/18 15:27 10/24/18 15:27 10/24/18 15:27 Course - Vital Signs Vital signs: Temp Pulse Resp BP Pulse Ox 98.3 F 84 14 150/72 H 94 10/24/18 15:27 10/24/18 15:27 10/24/18 15:27 10/24/18 15:27 10/24/18 15:27 Doctor's Discharge - Discharge Referrals: STEPHAN TAFOYA MD [Primary Care Provider] - Follow up as needed
--- NOTE | 2018-10-24 17:48 | ER Document Report ---
ED General - General Chief Complaint: Abscess Stated Complaint: WOUND CHECK Time Seen by Provider: 10/24/18 15:55 Primary Care Provider: STEPHAN TAFOYA MD [Primary Care Provider] - Follow up as needed Mode of Arrival: Wheelchair Information source: Patient TRAVEL OUTSIDE OF THE [place] IN LAST 30 DAYS: No - HPI Patient complains to provider of: Left thigh abscess Onset: Last week Onset/Duration: Persistent Severity: Mild Associated symptoms: denies: Chills, Fever Exacerbated by: Denies Relieved by: Denies Similar symptoms previously: No Recently seen / treated by doctor: No Notes: 63-year-old type II diabetic -[place] female with left medial distal thigh abscess. Initially saw her doctor for it. He prescribed some antibiotics. Told her to have her wound care doctor to look at it. She went to the wound care doctor and he was only able to address wounds on the feet and ankles. Told her to come here. Apparently the abscess opened up and started draining on its own. The doctor at the wound care clinic today did put some gauze and there. She does have an appointment set up with on who has the ability to deal with wounds higher up the legs. - Related Data Allergies/Adverse Reactions: pregabalin [From Lyrica] Allergy (Verified 10/24/18 15:21) Swelling of hands and face Past Medical History - General Information source: Patient - Social History Smoking Status: Unknown if Ever Smoked Frequency of alcohol use: None Family History: CAD, Hyperlipidemia, Hypertension Patient has suicidal ideation: No Patient has homicidal ideation: No - Past Medical History Cardiac Medical History: Reports: Hx Congestive Heart Failure, Hx Coronary Artery Disease, Hx Heart Attack, Hx Hypercholesterolemia, Hx Hypertension, Hx Peripheral Vascular Disease Denies: Hx Atrial Fibrillation Pulmonary Medical History: Reports: Hx Bronchitis Denies: Hx Asthma, Hx COPD, Hx Pneumonia, Hx Tuberculosis Neurological Medical History: Reports: Hx Cerebrovascular Accident - 2007 Denies: Hx Seizures Endocrine Medical History: Reports: Hx Diabetes Mellitus Type 1, Hx Diabetes Mellitus Type 2 Renal/ Medical History: Denies: Hx End Stage Renal Disease, Hx Peritoneal Dialysis GI Medical History: Reports: Hx Diverticulitis - diverticulosis. Denies: Hx Gastroesophageal Reflux Disease, Hx Hiatal Hernia Musculoskeletal Medical History: Denies Hx Arthritis, Denies Hx Systemic Lupus Erythematosus Skin Medical History: Denies Hx MRSA Psychiatric Medical History: Denies: Hx Bipolar Disorder, Hx Depression Past Surgical History: Reports: Hx Cardiac Surgery - quad bypass, Hx Coronary Artery Bypass Graft - July 31 2011, Hx Tonsillectomy, Hx Vascular Surgery. Denies: Hx Appendectomy, Hx Cardiac Catheterization, Hx Section, Hx Cholecystectomy, Hx Hysterectomy, Hx Mastectomy, Hx Tubal Ligation - Immunizations Immunizations up to date: No Hx Diphtheria, Pertussis, Tetanus Vaccination: Yes Hx Pneumococcal Vaccination: 02/04/11 Review of Systems - Review of Systems Notes: Constitutional: No fevers. No chills. EENT: No eye redness. No eye pain. No ear pain. No sore throat. Cardiovascular: No chest pain. No palpitations. Respiratory: No cough. No shortness of breath. No respiratory distress. Gastrointestinal: No abdominal pain. No nausea, vomiting, or diarrhea. Genitourinary: Atraumatic. No lesions. No pain. No discharge. Musculoskeletal: Atraumatic. No swelling. No deformities. Skin: Positive for left thigh abscess Lymphatic: No swollen lymph nodes. Neurologic: No headache. No syncope. Psychiatric: No suicidal or homicidal ideation. Physical Exam - Vital signs Vitals: Temp Pulse Resp BP Pulse Ox 98.3 F 84 14 150/72 H 94 10/24/18 15:27 10/24/18 15:27 10/24/18 15:27 10/24/18 15:27 10/24/18 15:27 - Notes Notes: General: Well-developed, well-nourished. In no acute distress. Non-toxic appearing. Cardiac: Well-perfused. Regular rate and rhythm. No murmurs, rubs, or gallops. Pulmonary: No respiratory distress. No cyanosis. Bilateral lung fiels are clear to auscultation. Abdominal: Non-distended. Non-rigid. Bowels sounds are present in all four quadrants. No guarding or rebound. HEENT: Head is atraumatic. Conjunctivae not reddened. No tearing. PERRL. EOMI. Orbits atraumatic. No periorbital swelling or erythema. Oropharynx is without erythema, swelling, or exudates. Neck: Supple. No adenopathy. No meningismus. Dermatologic: Warm with good turgor. No rash. Atraumatic. Chest: Atraumatic. No chest wall tenderness to palpation. Musculoskeletal: There is an abscess located on the left distal medial thigh which has an opening diameter of a dime. The tissue inside is pink and moist. There is no necrotic tissue. There is no crepitus. There is no purulent drainage. The fluid coming out of it is serosanguineous. There is no induration. There is no extensive cellulitis. No concern for gangrene. Genitourinary: Examination deferred Neurologic: No gross neurologic deficits. Psychiatric: Normal mood. Course - Re-evaluation Re-evalutation: 10/24/18 17:47 Wound culture taken. Abscess is packed with half-inch iodoform packing gauze and dressed. Patient will go by her pharmacy today and flower picker the prescriptions that her primary care doctor prescribed for her. She has follow- up on for this. She will return here if things get worse before then. - Vital Signs Vital signs: Temp Pulse Resp BP Pulse Ox 98.3 F 84 14 150/72 H 94 10/24/18 15:27 10/24/18 15:27 10/24/18 15:27 10/24/18 15:27 10/24/18 15:27 Discharge - Discharge Clinical Impression: Abscess of left thigh Condition: Good Disposition: HOME, SELF-CARE Instructions: Abscess ([facility]) Additional Instructions: Please flower picker the antibiotics that your doctor called in for you. Our wound culture will take a couple of days to finalize. We will touch base with you if needed. Please keep your appointment with the wound care clinic on . You may also come back to the emergency department in 2 days to have this wound rechecked. Referrals: STEPHAN TAFOYA MD [Primary Care Provider] - Follow up as needed
[2018-10-24 18:21] VITALS: BP 149/66
== END 2018-10-24 18:05 | disposition home or self-care (01) ==
LOC: ER 15:17
DX: L02.416 Cutaneous abscess of left lower limb (principal); E11.51 Type 2 diabetes mellitus with diabetic peripheral angiopathy without gangrene; I25.10 Atherosclerotic heart disease of native coronary artery without angina pectoris; I10 Essential (primary) hypertension; Z88.6 Allergy status to analgesic agent; Z95.1 Presence of aortocoronary bypass graft
CPT/HCPCS: 87070; 87077; 87186; 87205; 99283

== ENCOUNTER 2018-10-29 14:46 | Emergency (ER) | payer MEDICARE, MEDICAID ==
[2018-10-29] MEDS ORDERED: ASPIRIN 81 MG TABLET, CHEWABLE PO ONE (14:59)
--- NOTE | 2018-10-29 15:01 | ER Document Report ---
ED Medical Screen (RME) - General Chief Complaint: Chest Pain Stated Complaint: CHEST PAIN Time Seen by Provider: 10/29/18 14:58 Primary Care Provider: STEPHAN TAFOYA MD [Primary Care Provider] - Follow up as needed Mode of Arrival: Wheelchair Information source: Patient Notes: Patient presents complaining of chest pain off and on for the past 3 weeks. Patient also complains of nausea vomiting and feeling dizzy. Patient is currently being treated for an abscess to the left leg. Patient states her home health nurse was concerned she may have a clot in her left extremity because of the swelling. Patient does have a history of congestive heart failure. Patient reports not feeling well like something is wrong. hx: Dyslipidemia, hypertension, diabetes, congestive heart failure I have greeted and performed a rapid initial assessment of this patient. A comprehensive ED assessment and evaluation of the patient, analysis of test results and completion of the medical decision making process will be conducted by additional ED providers. TRAVEL OUTSIDE OF THE [place] IN LAST 30 DAYS: No - Related Data Allergies/Adverse Reactions: pregabalin [From Lyrica] Allergy (Verified 10/29/18 14:47) Swelling of hands and face Past Medical History - Past Medical History Cardiac Medical History: Reports: Hx Congestive Heart Failure, Hx Coronary Artery Disease, Hx Heart Attack, Hx Hypercholesterolemia, Hx Hypertension, Hx Peripheral Vascular Disease Denies: Hx Atrial Fibrillation Pulmonary Medical History: Reports: Hx Bronchitis Denies: Hx Asthma, Hx COPD, Hx Pneumonia, Hx Tuberculosis Neurological Medical History: Reports: Hx Cerebrovascular Accident - 2007. Denies: Hx Seizures Endocrine Medical History: Reports: Hx Diabetes Mellitus Type 1, Hx Diabetes Mellitus Type 2 Renal/ Medical History: Denies: Hx End Stage Renal Disease, Hx Peritoneal Dialysis GI Medical History: Reports: Hx Diverticulitis - diverticulosis. Denies: Hx Gastroesophageal Reflux Disease, Hx Hiatal Hernia Musculoskeltal Medical History: Denies Hx Arthritis, Denies Hx Systemic Lupus Er ythematosus Skin Medical History: Denies Hx MRSA Psychiatric Medical History: Denies: Hx Bipolar Disorder, Hx Depression Past Surgical History: Reports: Hx Cardiac Surgery - quad bypass, Hx Coronary Artery Bypass Graft - July 31 2011, Hx Tonsillectomy, Hx Vascular Surgery. Denies: Hx Appendectomy, Hx Cardiac Catheterization, Hx Section, Hx Cholecystectomy, Hx Hysterectomy, Hx Mastectomy, Hx Tubal Ligation - Immunizations Immunizations up to date: No Hx Diphtheria, Pertussis, Tetanus Vaccination: Yes History of Influenza Vaccine for 02/2017 - 07/2017 Season: Yes Influenza Administration Date for 02/2017 - 07/2017 Season: 01/05/17 Physical Exam - Vital signs Vitals: Temp Pulse Resp BP Pulse Ox 98.3 F 84 16 160/83 H 96 10/29/18 14:47 10/29/18 14:47 10/29/18 14:47 10/29/18 14:47 10/29/18 14:47 - General General appearance: Alert Notes: 4+ edema to bilateral lower extremities, respirations unlabored Course - Vital Signs Vital signs: Temp Pulse Resp BP Pulse Ox 98.3 F 84 16 160/83 H 96 10/29/18 14:47 10/29/18 14:47 10/29/18 14:47 10/29/18 14:47 10/29/18 14:47 Doctor's Discharge - Discharge Referrals: STEPHAN TAFOYA MD [Primary Care Provider] - Follow up as needed
[2018-10-29 15:39] LABS: ABSOLUTE BASOPHILS # (AUTO) 0.1 10^3/uL (0.0-0.2); ABSOLUTE EOSINOPHILS # (AUTO) 0.1 10^3/uL (0.0-0.6); ABSOLUTE LYMPHOCYTES (AUTO) 1.4 10^3/uL (0.5-4.7); ABSOLUTE MONOCYTES (AUTO) 0.7 10^3/uL (0.1-1.4); ABSOLUTE NEUT (AUTO) 4.8 10^3/uL (1.7-8.2); BASOPHILS % (AUTO) 0.9 % (0-2); EOSINOPHILS % (AUTO) 1.6 % (0-6); HEMATOCRIT 26.5 % (36.0-47.0); HEMOGLOBIN 8.7 g/dL (12.0-15.5); LYMPHOCYTES % (AUTO) 20.1 % (13-45); MEAN CORPUSCULAR HEMOGLOBIN 29.5 pg (27.0-33.4); MEAN CORPUSCULAR VOLUME 90 fl (80-97); MONOCYTES % (AUTO) 10.1 % (3-13); PLATELET COUNT 478 10^3/uL (150-450); RED BLOOD COUNT 2.96 10^6/uL (3.72-5.28); RED CELL DISTRIBUTION WIDTH 17.4 % (11.5-14.0); SEGMENTED NEUTROPHILS % (AUTO) 67.3 % (42-78); TOTAL CELLS COUNTED % (AUTO) 100 %; WHITE BLOOD COUNT 7.1 10^3/uL (4.0-10.5)
--- NOTE | 2018-10-29 16:04 | RADIOLOGY REPORT (SQ) ---
EXAM DESCRIPTION: CHEST 2 VIEWS COMPLETED DATE/TIME: 10/29/2018 3:54 pm REASON FOR STUDY: cp COMPARISON: Chest films 10/15/2018, 10/11/2018, 12/29/2017 EXAM PARAMETERS: NUMBER OF VIEWS: two views TECHNIQUE: Digital Frontal and Lateral radiographic views of the chest acquired. RADIATION DOSE: NA LIMITATIONS: none FINDINGS: LUNGS AND PLEURA: Diffuse pulmonary vascular congestion is present without alveolar or int erstitial edema. No pleural effusion. No pneumothorax. No dense consolidation worrisome for pneumo latoya MEDIASTINUM AND HILAR STRUCTURES: No masses or contour abnormalities. HEART AND VASCULAR STRUCTURES: Stable marked cardiomegaly and old sternotomy BONES: No acute findings. HARDWARE: None in the chest. OTHER: No other significant finding. IMPRESSION: Marked cardiomegaly, old sternotomy. Pulmonary vascular congestion without pulmonary edema or pneumonia TECHNICAL DOCUMENTATION: JOB ID: [id number] [employer]- All Rights Reserved Reading location - IP/workstation name: [email or web address]
--- NOTE | 2018-10-29 16:35 | ER Document Report ---
ED General - General Chief Complaint: Chest Pain Stated Complaint: CHEST PAIN Time Seen by Provider: 10/29/18 14:58 Primary Care Provider: STEPHAN TAFOYA MD [Primary Care Provider] - Follow up as needed Mode of Arrival: Wheelchair TRAVEL OUTSIDE OF THE [place] IN LAST 30 DAYS: No - HPI Notes: Patient is a 63-year-old female that presents to the emergency department for chief complaint of chest pain. Patient reports one episode yesterday and one episode this morning of pain in her chest. She describes it as a sharp sensation that shot from the left side over to the right side. It lasted for a few seconds and then completely resolved. She had no associated symptoms. She is not currently experiencing the chest pain. She was at rest when this pain occurred. She is not sure if she has had a stress test recently. Patient has home health nurse that comes over for wound care of her left lower extremity wound who called EMS wanting patient to be evaluated for a blood clot in her left leg because of increased swelling. Patient is currently on antibiotics for left leg wound. She also is on Eliquis for history of PEs in the past and states she has been compliant with her home medications. She denies fever, shortness of breath, diaphoresis, palpitations, nausea/vomiting and abdominal pain Past Medical History: CHF, hypertension, hyperlipidemia, diabetes Past Surgical History: CABG Social History: Denies tobacco and alcohol use Family History: Reviewed and noncontributory for presenting illness Allergies: Reviewed, see documented allergy list. REVIEW OF SYSTEMS: CONSTITUTIONAL : No fever No chills No diaphoresis No recent illness EENT: No vision changes No congestion No sore throat CARDIOVASCULAR: chest pain No palpitations RESPIRATORY: No shortness of breath No cough No difficulty breathing GASTROINTESTINAL: No abdominal pain No nausea No vomiting No diarrhea GENITOURINARY: No dysuria No hematuria No difficulty urinating MUSCULOSKELETAL: No back pain leg pain No arm pain SKIN: No rashes Left leg wound LYMPHATIC: No swollen, enlarged glands. NEUROLOGICAL: No lightheadedness No headache No weakness No paresthesias PSYCHIATRIC: No anxiety No depression PHYSICAL EXAMINATION: Vital signs reviewed, nursing noted reviewed. GENERAL: Well-appearing, obese, and in no acute distress. HEAD: Atraumatic, normocephalic. EYES: Eyes appear normal, extraocular movements intact, sclera anicteric, conjunctiva are normal. ENT: Diffuse dental decay, nares patent, oropharynx clear without exudates. Moist mucous membranes. NECK: Normal range of motion, supple without lymphadenopathy LUNGS: Breath sounds diminished to auscultation bilaterally and equal. No wheez es rales or rhonchi. HEART: Regular rate and rhythm without murmurs ABDOMEN: Soft, nontender, normoactive bowel sounds. No rebound, guarding, or rigidity. No masses appreciated. EXTREMITIES: Medial left leg wound with packing in place in good granulation tissue surrounding, No adjacent erythema, mildly tender to palpation. +2 pitting edema bilateral lower extremities with left greater than right. NEUROLOGICAL: No focal neurological deficits. Moves all extremities spontaneously Motor and sensory grossly intact on exam. PSYCH: Normal mood, normal affect. SKIN: Warm, Dry, normal turgor, no rashes or lesions noted on exposed skin - Related Data Allergies/Adverse Reactions: pregabalin [From Lyrica] Allergy (Verified 10/29/18 14:47) Swelling of hands and face Past Medical History - General Information source: Patient - Social History Smoking Status: Former Smoker Chew tobacco use (# tins/day): No Frequency of alcohol use: None Drug Abuse: None Family History: CAD, Hyperlipidemia, Hypertension Patient has suicidal ideation: No Patient has homicidal ideation: No - Past Medical History Cardiac Medical History: Reports: Hx Congestive Heart Failure, Hx Coronary Artery Disease, Hx Heart Attack, Hx Hypercholesterolemia, Hx Hypertension, Hx Peripheral Vascular Disease Denies: Hx Atrial Fibrillation Pulmonary Medical History: Reports: Hx Bronchitis Denies: Hx Asthma, Hx COPD, Hx Pneumonia, Hx Tuberculosis Neurological Medical History: Reports: Hx Cerebrovascular Accident - 2007. Denies: Hx Seizures Endocrine Medical History: Reports: Hx Diabetes Mellitus Type 1, Hx Diabetes Mellitus Type 2 Renal/ Medical History: Denies: Hx End Stage Renal Disease, Hx Peritoneal Dialysis GI Medical History: Reports: Hx Diverticulitis - diverticulosis. Denies: Hx Gastroesophageal Reflux Disease, Hx Hiatal Hernia Musculoskeletal Medical History: Denies Hx Arthritis, Denies Hx Systemic Lupus Erythematosus Skin Medical History: Denies Hx MRSA Psychiatric Medical History: Denies: Hx Bipolar Disorder, Hx Depression Past Surgical History: Reports: Hx Cardiac Surgery - quad bypass, Hx Coronary Artery Bypass Graft - July 31 2011, Hx Tonsillectomy, Hx Vascular Surgery. Denies: Hx Appendectomy, Hx Cardiac Catheterization, Hx Section, Hx Cholecystectomy, Hx Hysterectomy, Hx Mastectomy, Hx Tubal Ligation - Immunizations Immunizations up to date: No Hx Diphtheria, Pertussis, Tetanus Vaccination: Yes Hx Pneumococcal Vaccination: 02/04/11 Physical Exam - Vital signs Vitals: Temp Pulse Resp BP Pulse Ox 98.3 F 84 16 160/83 H 96 10/29/18 14:47 10/29/18 14:47 10/29/18 14:47 10/29/18 14:47 10/29/18 14:47 Course - Re-evaluation Re-evalutation: 10/29/18 19:28 Vitals reviewed. Nursing notes reviewed. Patient had 2 episodes of chest pain that she describes as lasting 1 to 2 seconds one yesterday and one today. She has been chest pain-free since early this morning. Her chest pain is atypical and her troponin today is negative. I do not clinically suspect ACS at this time. Ultrasound of the left lower extremity is negative for DVT. The edema is likely secondary to her infection. Patient's urinalysis does show UTI and she is currently on Cipro. Urine culture was not available on chart review and urine culture has been added today. The comparison urinalysis appeared worse than today's suggesting the Cipro is helping. She will continue taking the Cipro as directed. Patient has no pulmonary vascular congestion on chest x-ray and is oxygenating well. She is not in acute congestive heart failure exacerbation. At this time I do not see indication for admission in the hospital. Patient advised to follow closely with her primary care doctor. She will be discharged in stable condition. Laboratory 10/29/18 10/29/18 10/29/18 15:15 15:15 15:15 WBC 7.1 RBC 2.96 L Hgb 8.7 L Hct 26.5 L MCV 90 MCH 29.5 MCHC 33.0 RDW 17.4 H Plt Count 478 H Seg Neutrophils % 67.3 Lymphocytes % 20.1 Monocytes % 10.1 Eosinophils % 1.6 Basophils % 0.9 Absolute Neutrophils 4.8 Absolute Lymphocytes 1.4 Absolute Monocytes 0.7 Absolute Eosinophils 0.1 Absolute Basophils 0.1 Sodium Cancelled Potassium Cancelled Chloride Cancelled Carbon Dioxide Cancelled Anion Gap Cancelled BUN Cancelled Creatinine Cancelled Est GFR ( Amer) Cancelled Est GFR (Non-Af Amer) Cancelled Glucose Cancelled Calcium Cancelled Magnesium Cancelled Total Bilirubin Cancelled Direct Bilirubin Cancelled Neonat Total Bilirubin Cancelled Neonat Direct Bilirubin Cancelled Neonat Indirect Bili Cancelled AST Cancelled ALT Cancelled Alkaline Phosphatase Cancelled Troponin I Cancelled NT-Pro-B Natriuret Pep Cancelled Total Protein Cancelled Albumin Cancelled Urine Color Urine Appearance Urine pH Ur Specific [place] Urine Protein Urine Glucose (UA) Urine Ketones Urine Blood Urine Nitrite Urine Bilirubin Urine Urobilinogen Ur Leukocyte Esterase Urine WBC (Auto) Urine RBC (Auto) U Hyaline Cast (Auto) Urine Bacteria (Auto) Squamous Epi Cells Auto Calcium Oxalate Cr Auto Urine Mucus (Auto) Urine Ascorbic Acid 10/29/18 10/29/18 10/29/18 16:30 17:59 17:59 WBC RBC Hgb Hct MCV MCH MCHC RDW Plt Count Seg Neutrophils % Lymphocytes % Monocytes % Eosinophils % Basophils % Absolute Neutrophils Absolute Lymphocytes Absolute Monocytes Absolute Eosinophils Absolute Basophils Sodium 142.8 Potassium 4.1 Chloride 107 Carbon Dioxide 27 Anion Gap 9 BUN 29 H Creatinine 0.90 Est GFR ( Amer) > 60 Est GFR (Non-Af Amer) > 60 Glucose 143 H Calcium 9.8 Magnesium Total Bilirubin 0.9 Direct Bilirubin 0.8 H Neonat Total Bilirubin Not Reportable Neonat Direct Bilirubin Not Reportable Neonat Indirect Bili Not Reportable AST 44 H ALT 19 Alkaline Phosphatase 451 H Troponin I < 0.012 NT-Pro-B Natriuret Pep 2830 H Total Protein 9.2 H Albumin 3.8 Urine Color YELLOW Urine Appearance SLIGHTLY-CLOUDY Urine pH 6.0 Ur Specific [place] 1.006 Urine Protein 30 H Urine Glucose (UA) NEGATIVE Urine Ketones NEGATIVE Urine Blood SMALL H Urine Nitrite NEGATIVE Urine Bilirubin NEGATIVE Urine Urobilinogen NEGATIVE Ur Leukocyte Esterase MODERATE H Urine WBC (Auto) 88 Urine RBC (Auto) 4 U Hyaline Cast (Auto) 1 Urine Bacteria (Auto) 1+ Squamous Epi Cells Auto 1 Calcium Oxalate Cr Auto RARE Urine Mucus (Auto) RARE Urine Ascorbic Acid NEGATIVE Chest X-Ray 10/29/18 14:59 IMPRESSION: Marked cardiomegaly, old sternotomy. Pulmonary vascular congestion without pulmonary edema or pneumonia Venous Doppler Study 10/29/18 16:13 IMPRESSION: NO EVIDENCE DVT OR SVT IN THE LEFT LEG. 10/29/18 19:30 - Vital Signs Vital signs: Temp Pulse Resp BP Pulse Ox 98.3 F 84 16 155/84 H 97 10/29/18 14:47 10/29/18 14:47 10/29/18 18:01 10/29/18 18:01 10/29/18 18:01 - Laboratory Result Diagrams: 10/29/18 15:15 10/29/18 17:59 Laboratory results interpreted by me: 10/29/18 10/29/18 10/29/18 15:15 16:30 17:59 RBC 2.96 L Hgb 8.7 L Hct 26.5 L RDW 17.4 H Plt Count 478 H BUN 29 H Glucose 143 H Direct Bilirubin 0.8 H AST 44 H Alkaline Phosphatase 451 H NT-Pro-B Natriuret Pep Total Protein 9.2 H Urine Protein 30 H Urine Blood SMALL H Ur Leukocyte Esterase MODERATE H 10/29/18 17:59 RBC Hgb Hct RDW Plt Count BUN Glucose Direct Bilirubin AST Alkaline Phosphatase NT-Pro-B Natriuret Pep 2830 H Total Protein Urine Protein Urine Blood Ur Leukocyte Esterase - EKG Interpretation by Me Additional EKG results interpreted by me: 10/29/18 16:35 Interpreted by myself 1625: Normal sinus rhythm, rate 90, normal axis, LVH, borderline QT prolongation, QTC 495, no STEMI, no significant change from 10/17/2018 Discharge - Discharge Clinical Impression: UTI (urinary tract infection), bacterial, Leg edema, Chronic anemia Chest pain Qualifiers: Chest pain type: unspecified Qualified Code(s): R07.9 - Chest pain, unspecified Condition: Stable Disposition: HOME, SELF-CARE Instructions: Urinary Tract Infection ([facility]), Chest Pain of Unclear Cause ([facility]) Additional Instructions: Please return to the emergency department if you have any worsening, or concern of your symptoms. Please return to the emergency department if you develop chest pain, difficulty breathing, severe abdominal pain, or ongoing vomiting. Please follow-up with your primary care physician in 2-3 days and any other recommended physicians. If prescribed, take all medications as directed. If you have any questions or concerns do not hesitate to return the emergency department for evaluation. Continue taking your antibiotics as prescribed by your primary care doctor Referrals: STEPHAN TAFOYA MD [Primary Care Provider] - Follow up in 3-5 days
[2018-10-29 16:48] LABS: APPEARANCE,URINE SLIGHTLY-CLOUDY; BILIRUBIN,URINE NEGATIVE (NEGATIVE); CALCIUM OXALATE CRYSTALS,URINE RARE /HPF; COLOR,URINE YELLOW; GLUCOSE, URINE NEGATIVE (NEGATIVE); KETONES,URINE NEGATIVE (NEGATIVE); LEUKOCYTE ESTERASE,URINE MODERATE (NEGATIVE); NITRITE,URINE NEGATIVE (NEGATIVE); PROTEIN,URINE 30 mg/dL (NEGATIVE); URINE SPECIFIC GRAVITY 1.006; UROBILINOGEN,URINE NEGATIVE mg/dL (<2.0)
--- NOTE | 2018-10-29 17:19 | RADIOLOGY REPORT (SQ) ---
EXAM DESCRIPTION: VENOUS UNILATERAL LOWER COMPLETED DATE/TIME: 10/29/2018 5:03 pm REASON FOR STUDY: pain left leg / Hx clots COMPARISON: None. TECHNIQUE: Dynamic and static carvalho scale and color images acquired of the left leg venous system. Se lected spectral images acquired with additional compression and augmentation maneuvers. The contralat eral common femoral vein and saphenofemoral junction were also imaged. Images stored on PACS. LIMITATIONS: None. FINDINGS: COMMON FEMORAL: Normal phasicity, compression and augmentation. No visualized echogenic ma terial on carvalho scale. No defects on color images. FEMORAL: Normal compression and augmentation. No visualized echogenic material on carvalho scale. No defe cts on color images. POPLITEAL: Normal compression, augmentation. No visualized echogenic material on carvalho scale. No defec ts on color images. CALF VESSELS: Normal compression, augmentation. No visualized echogenic material on carvalho scale. No de fects on color images. GSV and SSV: Normal compression, augmentation. No visualized echogenic material on carvalho scale. No def ects on color images. ANY DEEP VENOUS INSUFFICIENCY: Not evaluated. ANY EVIDENCE OF POPLITEAL CYST: No. OTHER: No other significant finding. CONTRALATERAL COMMON FEMORAL VEIN AND SAPHENOFEMORAL JUNCTION: Normal phasicity, compression and augmentation. No visualized echogenic material on carvalho scale. No de fects on color images. IMPRESSION: NO EVIDENCE DVT OR SVT IN THE LEFT LEG. TECHNICAL DOCUMENTATION: JOB ID: [id number] [id number] 2010 [employer]- All Rights Reserved Reading location - IP/workstation name: [email or web address]
[2018-10-29] MEDS ORDERED: CEFTRIAXONE INJ 1000 MG VIAL IV ONE (18:35)
[2018-10-29 19:09] LABS: ALANINE AMINOTRANSFERASE 19 U/L (9-52); ALBUMIN 3.8 g/dL (3.5-5.0); ALKALINE PHOSPHATASE 451 U/L (38-126); ANION GAP 9 (5-19); ASPARTATE AMINO TRANSFERASE 44 U/L (14-36); BILIRUBIN,DIRECT 0.8 mg/dL (0.0-0.4); BILIRUBIN,TOTAL 0.9 mg/dL (0.2-1.3); BLOOD UREA NITROGEN 29 mg/dL (7-20); CALCIUM 9.8 mg/dL (8.4-10.2); CARBON DIOXIDE 27 mmol/L (22-30); CHLORIDE 107 mmol/L (98-107); GLUCOSE 143 mg/dL (75-110); SODIUM 142.8 mmol/L (137-145); TOTAL PROTEIN 9.2 g/dL (6.3-8.2)
[2018-10-29 19:17] LABS: POTASSIUM 4.1 mmol/L (3.6-5.0)
[2018-10-29 19:21] LABS: NT PRO BNP 2830 pg/mL (5-900)
[2018-10-29 19:23] LABS: TROPONIN I < 0.012 ng/mL
--- NOTE | 2018-10-29 20:30 | EKG REPORT ---
SEVERITY:- ABNORMAL ECG - SINUS RHYTHM PROBABLE LEFT ATRIAL ABNORMALITY LVH WITH SECONDARY REPOLARIZATION ABNORMALITY BORDERLINE PROLONGED QT INTERVAL : Confirmed by: Irma Hitchcock 29-Oct-2018 20:29:29
[2018-10-29 21:14] VITALS: BP 141/80
== END 2018-10-29 21:14 | disposition home or self-care (01) ==
LOC: ER 14:46
DX: R07.9 Chest pain, unspecified (principal); N39.0 Urinary tract infection, site not specified; B96.89 Other specified bacterial agents as the cause of diseases classified elsewhere; D64.9 Anemia, unspecified; E11.51 Type 2 diabetes mellitus with diabetic peripheral angiopathy without gangrene; R60.0 Localized edema; M79.606 Pain in leg, unspecified; E66.9 Obesity, unspecified; I25.10 Atherosclerotic heart disease of native coronary artery without angina pectoris; I11.9 Hypertensive heart disease without heart failure; Z86.711 Personal history of pulmonary embolism; Z79.02 Long term (current) use of antithrombotics/antiplatelets; Z88.6 Allergy status to analgesic agent; Z87.891 Personal history of nicotine dependence; Z95.1 Presence of aortocoronary bypass graft
CPT/HCPCS: 93005; 99285; 36415; 85025; 80053; 81001; 84484; 83880; 93971; 71046; 93010; A9270

== ENCOUNTER 2018-10-30 14:29 | Emergency (ER) | payer MEDICARE, MEDICAID ==
--- NOTE | 2018-10-30 15:03 | ER Document Report ---
ED Medical Screen (RME) - General Chief Complaint: Abdominal Pain Stated Complaint: LEFT LEG PAIN Time Seen by Provider: 10/30/18 15:00 Primary Care Provider: STEPHAN TAFOYA MD [Primary Care Provider] - Follow up as needed Mode of Arrival: Wheelchair Information source: Patient Notes: Patient presents for the complaint of bleeding to a wound to the left leg. Pat ient states she was having the home health nurse to change the dressing and the wound would not stop bleeding. EMS had to put a compression dressing in place. Patient states that since she has been here she has felt lightheaded and has had abdominal pain as well. Patient was evaluated here yesterday for chest pain. I have greeted and performed a rapid initial assessment of this patient. A com prehensive ED assessment and evaluation of the patient, analysis of test results and completion of the medical decision making process will be conducted by additional ED providers. TRAVEL OUTSIDE OF THE [place] IN LAST 30 DAYS: No - Related Data Allergies/Adverse Reactions: pregabalin [From Lyrica] Allergy (Verified 10/30/18 14:33) Swelling of hands and face Past Medical History - Social History Frequency of alcohol use: None Drug Abuse: None - Past Medical History Cardiac Medical History: Reports: Hx Congestive Heart Failure, Hx Coronary Artery Disease, Hx Heart Attack, Hx Hypercholesterolemia, Hx Hypertension, Hx Peripheral Vascular Disease Denies: Hx Atrial Fibrillation Pulmonary Medical History: Reports: Hx Bronchitis Denies: Hx Asthma, Hx COPD, Hx Pneumonia, Hx Tuberculosis Neurological Medical History: Reports: Hx Cerebrovascular Accident - 2007. Denies: Hx Seizures Endocrine Medical History: Reports: Hx Diabetes Mellitus Type 1, Hx Diabetes Mellitus Type 2 Renal/ Medical History: Denies: Hx End Stage Renal Disease, Hx Peritoneal Dialysis GI Medical History: Reports: Hx Diverticulitis - diverticulosis. Denies: Hx Gastroesophageal Reflux Disease, Hx Hiatal Hernia Musculoskeltal Medical History: Denies Hx Arthritis, Denies Hx Systemic Lupus Erythematosus Skin Medical History: Denies Hx MRSA Psychiatric Medical History: Denies: Hx Bipolar Disorder, Hx Depression Past Surgical History: Reports: Hx Cardiac Surgery - quad bypass, Hx Coronary Artery Bypass Graft - July 31 2011, Hx Tonsillectomy, Hx Vascular Surgery. Denies: Hx Appendectomy, Hx Cardiac Catheterization, Hx Section, Hx Cholecystectomy, Hx Hysterectomy, Hx Mastectomy, Hx Tubal Ligation - Immunizations Immunizations up to date: No Hx Diphtheria, Pertussis, Tetanus Vaccination: Yes History of Influenza Vaccine for 02/2017 - 07/2017 Season: Yes Influenza Administration Date for 02/2017 - 07/2017 Season: 01/05/17 Physical Exam - Vital signs Vitals: Temp Pulse Resp BP Pulse Ox 98.3 F 80 22 H 147/70 H 96 10/30/18 14:50 10/30/18 14:50 10/30/18 14:50 10/30/18 14:50 10/30/18 14:50 - General Notes: Compression dressing in place to left leg, no obvious bleeding, no seepage through the dressing at this time. Course - Vital Signs Vital signs: Temp Pulse Resp BP Pulse Ox 98.3 F 80 22 H 147/70 H 96 10/30/18 14:50 10/30/18 14:50 10/30/18 14:50 10/30/18 14:50 10/30/18 14:50 Doctor's Discharge - Discharge Referrals: STEPHAN TAFOYA MD [Primary Care Provider] - Follow up as needed
[2018-10-30 16:32] LABS: ABSOLUTE BASOPHILS # (AUTO) 0.1 10^3/uL (0.0-0.2); ABSOLUTE EOSINOPHILS # (AUTO) 0.1 10^3/uL (0.0-0.6); ABSOLUTE LYMPHOCYTES (AUTO) 1.3 10^3/uL (0.5-4.7); ABSOLUTE MONOCYTES (AUTO) 0.8 10^3/uL (0.1-1.4); ABSOLUTE NEUT (AUTO) 7.1 10^3/uL (1.7-8.2); BASOPHILS % (AUTO) 0.6 % (0-2); EOSINOPHILS % (AUTO) 1.2 % (0-6); HEMATOCRIT 27.6 % (36.0-47.0); HEMOGLOBIN 8.8 g/dL (12.0-15.5); LYMPHOCYTES % (AUTO) 14.4 % (13-45); MEAN CORPUSCULAR HEMOGLOBIN 28.8 pg (27.0-33.4); MEAN CORPUSCULAR HGB CONC 31.9 g/dL (32.0-36.0); MEAN CORPUSCULAR VOLUME 90 fl (80-97); MONOCYTES % (AUTO) 8.1 % (3-13); PLATELET COUNT 478 10^3/uL (150-450); RED BLOOD COUNT 3.05 10^6/uL (3.72-5.28); RED CELL DISTRIBUTION WIDTH 17.6 % (11.5-14.0); SEGMENTED NEUTROPHILS % (AUTO) 75.7 % (42-78); TOTAL CELLS COUNTED % (AUTO) 100 %; WHITE BLOOD COUNT 9.3 10^3/uL (4.0-10.5)
[2018-10-30 16:47] LABS: INTERNATIONAL RATION (INR) 1.39; PROTHROMBIN TIME 17.1 SEC (11.4-15.4)
[2018-10-30 16:48] LABS: PARTIAL THROMBOPLASTIN TIME 28.9 SEC (23.5-35.8)
[2018-10-30 16:51] LABS: ALANINE AMINOTRANSFERASE 9 U/L (9-52); ALBUMIN 4.1 g/dL (3.5-5.0); ALKALINE PHOSPHATASE 453 U/L (38-126); ANION GAP 10 (5-19); ASPARTATE AMINO TRANSFERASE 38 U/L (14-36); BILIRUBIN,DIRECT 0.8 mg/dL (0.0-0.4); BILIRUBIN,TOTAL 1.1 mg/dL (0.2-1.3); BLOOD UREA NITROGEN 25 mg/dL (7-20); CALCIUM 9.8 mg/dL (8.4-10.2); CARBON DIOXIDE 27 mmol/L (22-30); CHLORIDE 107 mmol/L (98-107); GLUCOSE 213 mg/dL (75-110); POTASSIUM 3.9 mmol/L (3.6-5.0); SODIUM 144.1 mmol/L (137-145); TOTAL PROTEIN 9.8 g/dL (6.3-8.2)
--- NOTE | 2018-10-30 19:47 | ER Document Report ---
ED General - General Chief Complaint: Abdominal Pain Stated Complaint: LEFT LEG PAIN Time Seen by Provider: 10/30/18 15:00 Primary Care Provider: Wound Care [Provider Group] - Follow up tomorrow STEPHAN TAFOYA MD [Primary Care Provider] - Follow up in 3-5 days Mode of Arrival: Wheelchair Notes: Patient is a 63-year-old female that presents to the emergency department for chief complaint of bleeding chronic wound. Patient states that she was having her packing changed at home today by her home health nurse, and she started bleeding from her wound on her left leg, they tried holding pressure were to continue to bleed, she is on Eliquis, so she decided come to the emergency department to have it evaluated. She has been doing with his abscess for over a week, and has been following up with wound care. She had some abdominal discomfort earlier today, but that has since resolved, she described it is epigastric in nature. She is otherwise feeling well at this time, denies any si gnificant pain in her leg, she was concerned about the bleeding. Past Medical History: History of DVT, CHF, diabetes mellitus, hypertension, hyperlipidemia Past Surgical History: Multiple vascular surgeries Social History: Former smoker, denies alcohol or drug use. Family History: Reviewed and noncontributory for presenting illness Allergies: Reviewed, see documented allergy list. REVIEW OF SYSTEMS: Other than noted above, the 12 point review of systems was reviewed with the patient and were negative, all pertinent findings are included in the HPI. PHYSICAL EXAMINATION: Vital signs reviewed, nursing noted reviewed. GENERAL: Elderly, chronically ill-appearing female, but in no acute distress HEAD: Atraumatic, normocephalic. EYES: Eyes appear normal, extraocular movements intact, sclera anicteric, conjunctiva are normal. ENT: nares patent, oropharynx clear without exudates. Moist mucous membranes. NECK: Normal range of motion, supple without lymphadenopathy LUNGS: Breath sounds clear to auscultation bilaterally and equal. No wheezes rales or rhonchi. HEART: Regular rate and rhythm without murmurs ABDOMEN: Soft, obese, nontender, normoactive bowel sounds. No rebound, guarding, or rigidity. No masses appreciated. EXTREMITIES: Bilateral lower extremity lymphedema, chronic, per patient and unchanged on the patient's left lower extremity, just distal to the knee, she has a chronic appearing wound, that does probe deep, there is currently iodoform gauze within the wound, with coagulate of blood, there is no active bleeding at this time. Distal pulses intact. Neurovascular intact distally in all extremities. NEUROLOGICAL: No focal neurological deficits. Moves all extremities spontaneously Motor and sensory grossly intact on exam. PSYCH: Normal mood, normal affect. SKIN: Warm, Dry, normal turgor, no rashes or lesions noted on exposed skin TRAVEL OUTSIDE OF THE [place] IN LAST 30 DAYS: No - Related Data Allergies/Adverse Reactions: pregabalin [From Lyrica] Allergy (Verified 10/30/18 14:33) Swelling of hands and face Past Medical History - General Information source: Patient - Social History Smoking Status: Former Smoker Frequency of alcohol use: None Drug Abuse: None Family History: CAD, Hyperlipidemia, Hypertension Patient has suicidal ideation: No Patient has homicidal ideation: No - Past Medical History Cardiac Medical History: Reports: Hx Congestive Heart Failure, Hx Coronary Artery Disease, Hx Heart Attack, Hx Hypercholesterolemia, Hx Hypertension, Hx Peripheral Vascular Disease Denies: Hx Atrial Fibrillation Pulmonary Medical History: Reports: Hx Bronchitis Denies: Hx Asthma, Hx COPD, Hx Pneumonia, Hx Tuberculosis Neurological Medical History: Reports: Hx Cerebrovascular Accident - 2007. Denies: Hx Seizures Endocrine Medical History: Reports: Hx Diabetes Mellitus Type 1, Hx Diabetes Mellitus Type 2 Renal/ Medical History: Denies: Hx End Stage Renal Disease, Hx Peritoneal Dialysis GI Medical History: Reports: Hx Diverticulitis - diverticulosis. Denies: Hx Gastroesophageal Reflux Disease, Hx Hiatal Hernia Musculoskeletal Medical History: Denies Hx Arthritis, Denies Hx Systemic Lupus Erythematosus Skin Medical History: Denies Hx MRSA Psychiatric Medical History: Denies: Hx Bipolar Disorder, Hx Depression Past Surgical History: Reports: Hx Cardiac Surgery - quad bypass, Hx Coronary Artery Bypass Graft - July 31 2011, Hx Tonsillectomy, Hx Vascular Surgery. Denies: Hx Appendectomy, Hx Cardiac Catheterization, Hx Section, Hx Cholecystectomy, Hx Hysterectomy, Hx Mastectomy, Hx Tubal Ligation - Immunizations Immunizations up to date: No Hx Diphtheria, Pertussis, Tetanus Vaccination: Yes Hx Pneumococcal Vaccination: 02/04/11 Physical Exam - Vital signs Vitals: Temp Pulse Resp BP Pulse Ox 98.3 F 80 22 H 147/70 H 96 10/30/18 14:50 10/30/18 14:50 10/30/18 14:50 10/30/18 14:50 10/30/18 14:50 Course - Re-evaluation Re-evalutation: Patient seen and examined vital signs reviewed. Laboratory data and/or imaging were ordered as appropriate for the patient's presenting symptoms and complaint, with consideration of any critical or life threatening conditions that may be associated with their obtained history and exam as noted above. Results were reviewed when available and demonstrated anemia which appears to be at this patient's baseline, blood work is otherwise at the patient's baseline and unchanged from prior labs. Patient's wound in her left leg, was no longer actively bleeding, I repacked her wound, with iodoform gauze, and the wound was redressed, she has a follow-up appointment with wound clinic tomorrow, which she states she will keep. She is currently on antibiotics, I recommend she continue her current antibiotics. The patient was re-evaluated and was stable, monitored and no further active bleeding. Evaluation was most consistent with chronic wound, with hemorrhage from the wound, now stopped, dressing change, abdominal pain, now resolved. Results were discussed with the patient at this point, after careful consideration I feel that that patient can be discharged from the emergency department, the patient was educated treatments and reasons to return to the emergency department based on their presumed diagnosis as noted above, they were advised to followup with a primary care physician in 2-3 days. Patient was agreeable to plan of care. *Note is created using voice recognition software and may contain spelling, syntax or grammatical errors. Laboratory 10/30/18 10/30/18 10/30/18 16:01 16:01 16:01 WBC 9.3 RBC 3.05 L Hgb 8.8 L Hct 27.6 L MCV 90 MCH 28.8 MCHC 31.9 L RDW 17.6 H Plt Count 478 H Seg Neutrophils % 75.7 Lymphocytes % 14.4 Monocytes % 8.1 Eosinophils % 1.2 Basophils % 0.6 Absolute Neutrophils 7.1 Absolute Lymphocytes 1.3 Absolute Monocytes 0.8 Absolute Eosinophils 0.1 Absolute Basophils 0.1 PT 17.1 H INR 1.39 APTT 28.9 Sodium 144.1 Potassium 3.9 Chloride 107 Carbon Dioxide 27 Anion Gap 10 BUN 25 H Creatinine 0.90 Est GFR ( Amer) > 60 Est GFR (Non-Af Amer) > 60 Glucose 213 H Calcium 9.8 Total Bilirubin 1.1 Direct Bilirubin 0.8 H Neonat Total Bilirubin Not Reportable Neonat Direct Bilirubin Not Reportable Neonat Indirect Bili Not Reportable AST 38 H ALT 9 Alkaline Phosphatase 453 H Total Protein 9.8 H Albumin 4.1 - Vital Signs Vital signs: Temp Pulse Resp BP Pulse Ox 98.4 F 91 22 H 156/81 H 92 10/30/18 20:45 10/30/18 20:45 10/30/18 14:50 10/30/18 20:45 10/30/18 20:45 - Laboratory Result Diagrams: 10/30/18 16:01 10/30/18 16:01 Laboratory results interpreted by me: 10/30/18 10/30/18 10/30/18 16:01 16:01 16:01 RBC 3.05 L Hgb 8.8 L Hct 27.6 L MCHC 31.9 L RDW 17.6 H Plt Count 478 H PT 17.1 H BUN 25 H Glucose 213 H Direct Bilirubin 0.8 H AST 38 H Alkaline Phosphatase 453 H Total Protein 9.8 H Procedures - Additional Procedures Dressing change Additional Procedures: Dressing Change - Iodoform gauze was exchanged in the patient's left chronic wound, and redressed with nonadhesive dressing, and ABD. Patient tolerated procedure well. Discharge - Discharge Clinical Impression: Bleeding from wound, Encounter for change of dressing Condition: Stable Disposition: HOME, SELF-CARE Instructions: Dressing Instructions for Open Wounds ([facility]) Additional Instructions: Please follow-up with the wound clinic tomorrow as scheduled, if you start to have more bleeding and become concerned, do not hesitate to return to the emergency department. Referrals: STEPHAN TAFOYA MD [Primary Care Provider] - Follow up in 3-5 days Wound Care [Provider Group] - Follow up tomorrow
[2018-10-30 21:04] VITALS: BP 156/81
== END 2018-10-30 21:04 | disposition home or self-care (01) ==
LOC: ER 14:29
DX: Z48.01 Encounter for change or removal of surgical wound dressing (principal); R58 Hemorrhage, not elsewhere classified; L02.416 Cutaneous abscess of left lower limb; R10.13 Epigastric pain; I89.0 Lymphedema, not elsewhere classified; E11.51 Type 2 diabetes mellitus with diabetic peripheral angiopathy without gangrene; I10 Essential (primary) hypertension; Z87.891 Personal history of nicotine dependence; Z79.02 Long term (current) use of antithrombotics/antiplatelets; Z86.718 Personal history of other venous thrombosis and embolism; Z88.6 Allergy status to analgesic agent; I25.10 Atherosclerotic heart disease of native coronary artery without angina pectoris; Z95.1 Presence of aortocoronary bypass graft
CPT/HCPCS: 36415; 80053; 85025; 85610; 85730; 99283

== ENCOUNTER 2018-11-03 20:55 | Inpatient (IN) | payer MEDICARE, MEDICAID ==
[2018-11-03 22:03] LABS: ANION GAP 9 (5-19); BLOOD UREA NITROGEN 27 mg/dL (7-20); CARBON DIOXIDE 25 mmol/L (22-30); CHLORIDE 108 mmol/L (98-107); GLUCOSE 126 mg/dL (75-110); POTASSIUM 3.9 mmol/L (3.6-5.0); SODIUM 141.6 mmol/L (137-145)
[2018-11-03 22:06] LABS: ABSOLUTE EOSINOPHILS # (AUTO) 0.1 10^3/uL (0.0-0.6); ABSOLUTE LYMPHOCYTES (AUTO) 1.2 10^3/uL (0.5-4.7); ABSOLUTE MONOCYTES (AUTO) 0.8 10^3/uL (0.1-1.4); ABSOLUTE NEUT (AUTO) 5.2 10^3/uL (1.7-8.2); BASOPHILS % (AUTO) 0.4 % (0-2); EOSINOPHILS % (AUTO) 0.9 % (0-6); HEMATOCRIT 23.1 % (36.0-47.0); LYMPHOCYTES % (AUTO) 16.8 % (13-45); MEAN CORPUSCULAR HEMOGLOBIN 29.1 pg (27.0-33.4); MEAN CORPUSCULAR HGB CONC 32.3 g/dL (32.0-36.0); MEAN CORPUSCULAR VOLUME 90 fl (80-97); MONOCYTES % (AUTO) 10.5 % (3-13); PLATELET COUNT 292 10^3/uL (150-450); RED BLOOD COUNT 2.56 10^6/uL (3.72-5.28); RED CELL DISTRIBUTION WIDTH 17.3 % (11.5-14.0); SEGMENTED NEUTROPHILS % (AUTO) 71.4 % (42-78); TOTAL CELLS COUNTED % (AUTO) 100 %; WHITE BLOOD COUNT 7.3 10^3/uL (4.0-10.5)
[2018-11-03 22:07] LABS: HEMOGLOBIN 7.5 g/dL (12.0-15.5)
[2018-11-03 22:16] LABS: NT PRO BNP 4100 pg/mL (5-900)
--- NOTE | 2018-11-03 22:26 | EKG REPORT ---
SEVERITY:- ABNORMAL ECG - SINUS RHYTHM MULTIPLE VENTRICULAR PREMATURE COMPLEXES PROBABLE LEFT ATRIAL ABNORMALITY LVH WITH SECONDARY REPOLARIZATION ABNORMALITY : Confirmed by: Irma Hitchcock 03-Nov-2018 22:25:54
[2018-11-03 22:29] LABS: TROPONIN I < 0.012 ng/mL
--- NOTE | 2018-11-03 22:33 | RADIOLOGY REPORT (SQ) ---
EXAM DESCRIPTION: XR CHEST 1 VIEW COMPLETED DATE/TME: 11/03/2018 21:41 CLINICAL HISTORY: 63 years, Female, sob COMPARISON: 10/29/2018 chest NUMBER OF VIEWS: 1 TECHNIQUE: Portable chest LIMITATIONS: None. FINDINGS: Stable cardiomegaly and postsurgical change. Osteopenia. Lungs are clear. No pneumothorax IMPRESSION: Cardiomegaly. Lungs are clear copyright 2010 [employer]- All Rights Reserved
--- NOTE | 2018-11-03 23:15 | ER Document Report ---
ED General - General Chief Complaint: Shortness Of Breath Stated Complaint: RESPIRATORY DISTRESS Time Seen by Provider: 11/03/18 21:40 Primary Care Provider: STEPHAN TAFOYA MD [Primary Care Provider] - Follow up as needed Notes: Patient is a 63-year-old female with past medical history of coronary artery disease, status post bypass surgery, history of CHF, presents with complaints of chest heaviness, pressure and shortness of breath. Patient states that shortly after waking up this morning have been ongoing since that time. Describes a constant heaviness and pressure to her chest. Nothing seems to improve or worsen her symptoms. States she is concerned that she may be developing pulmonary edema. Has been taking her furosemide as directed. Has not seen her primary care physician regarding today's concerns. Denies cough, fever or constitutional symptoms. Denies any unintentional weight gain. No syncope. No pleuritic pain. Does have a history of pulmonary embolus and is currently anticoagulated for this history. TRAVEL OUTSIDE OF THE [place] IN LAST 30 DAYS: No - Related Data Allergies/Adverse Reactions: pregabalin [From Lyrica] Allergy (Verified 10/30/18 14:33) Swelling of hands and face Past Medical History - General Information source: Patient - Social History Smoking Status: Former Smoker Frequency of alcohol use: None Drug Abuse: None Lives with: Alone Family History: CAD, Hyperlipidemia, Hypertension Patient has suicidal ideation: No Patient has homicidal ideation: No - Past Medical History Cardiac Medical History: Reports: Hx Congestive Heart Failure, Hx Coronary Artery Disease, Hx Heart Attack, Hx Hypercholesterolemia, Hx Hypertension, Hx Peripheral Vascular Disease Denies: Hx Atrial Fibrillation Pulmonary Medical History: Reports: Hx Bronchitis Denies: Hx Asthma, Hx COPD, Hx Pneumonia, Hx Tuberculosis Neurological Medical History: Reports: Hx Cerebrovascular Accident - 2007. Denies: Hx Seizures Endocrine Medical History: Reports: Hx Diabetes Mellitus Type 1, Hx Diabetes Mellitus Type 2 Renal/ Medical History: Denies: Hx End Stage Renal Disease, Hx Peritoneal Dialysis GI Medical History: Reports: Hx Diverticulitis - diverticulosis. Denies: Hx Gastroesophageal Reflux Disease, Hx Hiatal Hernia Musculoskeletal Medical History: Denies Hx Arthritis, Denies Hx Systemic Lupus Erythematosus Skin Medical History: Denies Hx MRSA Psychiatric Medical History: Denies: Hx Bipolar Disorder, Hx Depression Past Surgical History: Reports: Hx Cardiac Surgery - quad bypass, Hx Coronary Artery Bypass Graft - July 31 2011, Hx Tonsillectomy, Hx Vascular Surgery. Denies: Hx Appendectomy, Hx Cardiac Catheterization, Hx Section, Hx Cholecystectomy, Hx Hysterectomy, Hx Mastectomy, Hx Tubal Ligation - Immunizations Immunizations up to date: No Hx Diphtheria, Pertussis, Tetanus Vaccination: Yes Hx Pneumococcal Vaccination: 02/04/11 Review of Systems - Review of Systems Notes: Constitutional: Negative for fever. HENT: Negative for sore throat. Eyes: Negative for visual changes. Cardiovascular: Positive for chest pressure Respiratory: Positive for shortness of breath. Gastrointestinal: Negative for abdominal pain, vomiting or diarrhea. Genitourinary: Negative for dysuria. Musculoskeletal: Negative for back pain. Skin: Negative for rash. Neurological: Negative for headaches, weakness or numbness. 10 point ROS negative except as marked above and in HPI. Physical Exam - Vital signs Vitals: Temp Pulse Resp BP 98.8 F 84 18 154/77 H 11/03/18 20:55 11/03/18 20:55 11/03/18 20:55 11/03/18 20:55 Interpretation: Hypertensive Notes: PHYSICAL EXAMINATION: GENERAL: Appears stated age, in no acute distress HEAD: Atraumatic, normocephalic. EYES: Pupils equal round and reactive to light, extraocular movements intact, sclera anicteric, conjunctiva are normal. ENT: nares patent, oropharynx clear without exudates. Moist mucous membranes. NECK: Normal range of motion, supple without lymphadenopathy LUNGS: Breath sounds clear to auscultation bilaterally and equal. No wheezes rales or rhonchi. HEART: Regular rate and rhythm without murmurs ABDOMEN: Soft, nontender, normoactive bowel sounds. No guarding, no rebound. No masses appreciated. EXTREMITIES: 2+ pitting edema that is bilateral in the lower extremities. NEUROLOGICAL: No focal neurological deficits. Moves all extremities spontaneously and on command. PSYCH: Normal mood, normal affect. SKIN: Warm, Dry, normal turgor, no rashes or lesions noted. Course - Re-evaluation Re-evalutation: 11/03/18 23:50 Patient presents with complaints of chest heaviness and shortness of breath although was not found to have any evidence of pulmonary edema on initial exam to suggest that this is a CHF exacerbation. Her EKG does not show any ischemic changes, initial troponin is negative. No pleuritic component, tachycardia or hypoxemia to suggest recurrent PE and the patient is appropriately anticoagulated making this an unlikely diagnosis. Patient has a known history of coronary artery disease, certainly there is concern that this could be an atypical presentation of ACS given her ongoing chest heaviness and sensation of shortness of breath. She states that she has not had a stress test or cardiac catheterization in several years. Discussed with Dr. Barajas covering for Dr. patient for observation - Vital Signs Vital signs: Temp Pulse Resp BP Pulse Ox 98.8 F 84 15 154/76 H 98 11/03/18 20:55 11/03/18 20:55 11/03/18 21:31 11/03/18 21:31 11/03/18 21:31 - Laboratory Result Diagrams: 11/03/18 21:27 11/03/18 21:27 Laboratory results interpreted by me: 11/03/18 11/03/18 11/03/18 21:27 21:27 21:27 RBC 2.56 L Hgb 7.5 L Hct 23.1 L RDW 17.3 H Chloride 108 H BUN 27 H Est GFR ( Amer) 56 L Est GFR (Non-Af Amer) 46 L Glucose 126 H NT-Pro-B Natriuret Pep 4100 H - Diagnostic Test Radiology reviewed: Image reviewed, Reports reviewed Radiology results interpreted by me: 11/03/18 23:49 Chest x-ray: No overt pulmonary edema or infiltrates - EKG Interpretation by Me Additional EKG results interpreted by me: 11/03/18 23:49 Sinus rhythm, rate 86, no ST elevations or depressions. PVCs. QTC 468. Discharge - Discharge Clinical Impression: Chest discomfort, Chronic combined systolic and diastolic CHF (congestive heart failure), Shortness of breath CAD (coronary artery disease) Qualifiers: Coronary Disease-Associated Artery/Lesion type: unspecified vessel or lesion type [place] vs. transplanted heart: [place] heart Associated angina: angina presence unspecified Qualified Code(s): I25.10 - Atherosclerotic heart disease of [place] coronary artery without angina pectoris Condition: Fair Disposition: ADMITTED OBSERVATION Admitting Provider: Jenn Unit Admitted: Telemetry Referrals: STEPHAN TAFOYA MD [Primary Care Provider] - Follow up as needed
[2018-11-04] MEDS ORDERED: ASPIRIN 325 MG TABLET PO SCH (00:30)
[2018-11-04 00:44] LABS: PROTHROMBIN TIME 17.3 SEC (11.4-15.4)
[2018-11-04 00:46] LABS: ABSOLUTE RETICS # 0.089 10^6/uL (0.028-0.122); RETICULOCYTE COUNT (AUTO) 3.52 % (0.66-2.85)
[2018-11-04 01:10] LABS: LIPASE 16.7 U/L (23-300)
[2018-11-04 01:11] LABS: PHOSPHORUS 3.8 mg/dL (2.5-4.5)
[2018-11-04 02:23] LABS: NT PRO BNP 4750 pg/mL (5-900)
[2018-11-04 02:28] LABS: CREATINE KINASE MB < 0.22 ng/mL (<4.55); TROPONIN I < 0.012 ng/mL
[2018-11-04 02:49] LABS: IRON(TIBC) 61.6 ug/dL (37-170)
[2018-11-04 03:01] LABS: FREE T4 (FREE THYROXINE) 1.54 ng/dL (0.78-2.19)
[2018-11-04] MEDS ORDERED: ACETAMINOPHEN 325 MG TABLET PO PRN (03:07)
[2018-11-04 03:15] LABS: THYROID STIMULATING HORMONE 1.65 uIU/mL (0.47-4.68)
[2018-11-04] MEDS: ONDANSETRON HCL INJ/PF 4 MG/2 ML SDV IV PRN (03:18)
[2018-11-04 04:08] LABS: FOLATE > 20.00 ng/mL (>2.76)
[2018-11-04 07:26] LABS: TROPONIN I 0.026 ng/mL
[2018-11-04 07:30] LABS: CREATINE KINASE MB < 0.22 ng/mL (<4.55)
[2018-11-04] MEDS ORDERED: NORMAL SALINE 250 ML IV PRN ×2 (08:30)
[2018-11-04] MEDS ORDERED: GLUCAGON,HUMAN RECOMB 1 MG INJ IM PRN (08:32)
[2018-11-04] MEDS ORDERED: DEXTROSE 40% GEL 15 GM TUBE PO PRN ×2 (08:32)
[2018-11-04] MEDS ORDERED: DEXTROSE 50%-WATER 25 GM/50 ML DISP.SYRIN IV PRN ×2 (08:32)
[2018-11-04] MEDS: ENOXAPARIN SODIUM INJ 30 MG/0.3 ML DISP.SYRIN SUBCUT SCH (10:35)
[2018-11-04] MEDS: PANTOPRAZOLE SODIUM 40 MG TABLET.DR PO SCH (10:36)
[2018-11-04] MEDS: INSULIN LISPRO 100 UNIT/ML 3 ML VIAL SUBCUT SCH ×3 (15:43→21:30)
[2018-11-04] MEDS ORDERED: (PENDING PHARMACY ID) (Oxycodone Hcl/Acetaminophen [Percocet 7.5-325 Mg Tablet] 1 EACH) PO PRN (19:37)
[2018-11-04] MEDS: ATORVASTATIN CALCIUM 20 MG TABLET PO SCH (21:28)
[2018-11-04] MEDS: OXYCODONE-ACETAMINOPHEN 5-325 MG TABLET PO PRN (21:29)
[2018-11-04] MEDS: OXYCODONE HCL IR 5 MG TABLET PO PRN (21:29)
[2018-11-04 21:52] LABS: ABSOLUTE LYMPHOCYTES (AUTO) 1.1 10^3/uL (0.5-4.7); ABSOLUTE MONOCYTES (AUTO) 0.9 10^3/uL (0.1-1.4); ABSOLUTE NEUT (AUTO) 6.1 10^3/uL (1.7-8.2); BASOPHILS % (AUTO) 0.3 % (0-2); EOSINOPHILS % (AUTO) 0.6 % (0-6); HEMATOCRIT 29.4 % (36.0-47.0); LYMPHOCYTES % (AUTO) 13.7 % (13-45); MEAN CORPUSCULAR HEMOGLOBIN 29.3 pg (27.0-33.4); MEAN CORPUSCULAR HGB CONC 32.8 g/dL (32.0-36.0); MEAN CORPUSCULAR VOLUME 89 fl (80-97); MONOCYTES % (AUTO) 11.1 % (3-13); PLATELET COUNT 238 10^3/uL (150-450); SEGMENTED NEUTROPHILS % (AUTO) 74.3 % (42-78); TOTAL CELLS COUNTED % (AUTO) 100 %; WHITE BLOOD COUNT 8.2 10^3/uL (4.0-10.5)
[2018-11-04 21:54] LABS: HEMOGLOBIN 9.7 g/dL (12.0-15.5)
--- NOTE | 2018-11-04 22:01 | PDOC H&P ---
History of Present Illness Admission Date/PCP: 11/04/18 00:04 [facility] Patient complains of: Shortness of breath History of Present Illness: JAVIER BURGER is a 63 year old female known to my practice who presented to the ED with complain about feeling of heaviness and pressure in her chest since waking up on the day of her presentation. She reported associated shortness of breath. She raised concern about possible development of pulmonary edema. She de nied any recent unintentional weight gain or extremities swelling. She denied any radiation of pain into her left shoulder or upper extremity. No associated palpitation, diaphoresis, nausea, vomiting, or abdominal pain. No associated fever, chills, coughing, nasal or sinus congestion. She denied any flank pain, dysuria, hematuria, frequency, or difficulty with voiding. She reported compliance with her home medications. She reported multiple episodes of bleeding from her left thigh wound as well as right heel wounds after debridement and other treatment at [facility] during her recent visits. She denied headache, dizziness, or syncope. Her initial ED evaluation revealed significant drop in her hemoglobin. 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 Past Medical History Cardiac Medical History: Reports: Congestive Heart Failure, Coronary Artery Disease, Myocardial Infarction, Hyperlipidema, Hypertension, Peripheral Vascular Disease Denies: Atrial Fibrillation Pulmonary Medical History: Reports: Bronchitis Denies: Asthma, Chronic Obstructive Pulmonary Disease (COPD), Pneumonia, Tuberculosis Neurological Medical History: Denies: Seizures Endocrine Medical History: Reports: Diabetes Mellitus Type 1, Diabetes Mellitus Type 2 Renal/ Medical History: Denies: End Stage Renal Disease GI Medical History: Reports: Diverticulitis - diverticulosis Denies: Gastroesophageal Reflux Disease, Hiatal Hernia Musculoskeltal Medical History: Denies: Arthritis Psychiatric Medical History: Denies: Bipolar Disorder, Depression Hematology: Denies: Anemia, Hemophilia, Sickle Cell Disease Past Surgical History Past Surgical History: Reports: Coronary Artery Bypass Graft - July 31 2011, Tonsillectomy, Vascular Surgery Denies: Amputation, Appendectomy, Cardiac Catheterization, Section, Cholecystectomy, Hysterectomy, Mastectomy, Tubal Ligation Social History Lives with: Alone Smoking Status: Former Smoker Frequency of Alcohol Use: None Hx Recreational Drug Use: No Drugs: None Hx Prescription Drug Abuse: No - Advance Directive Resuscitation Status: Full Code Family History Family History: CAD, Hyperlipidemia, Hypertension Parental Family History Reviewed: Yes Children Family History Reviewed: Yes Sibling(s) Family History Reviewed.: Yes Medication/Allergy Home Medications: Insulin Aspart [Novolog Flexpen] 0 unit SUBCUT .SLD SCALE 10/11/18 Amlodipine Besylate [Norvasc 10 mg Tablet] 10 mg PO DAILY #30 tablet 10/18/18 Apixaban [Eliquis 2.5 mg Tablet] 2.5 mg PO BID #60 tablet 10/18/18 Ascorbic Acid [Vitamin C 500 mg Tablet] 500 mg PO DAILY #30 tablet 10/18/18 Atorvastatin Calcium [Lipitor 20 mg Tablet] 20 mg PO QHS #30 tablet 10/18/18 Famotidine [Pepcid] 20 mg PO BID #60 tablet 10/18/18 Furosemide [Lasix 20 mg Tablet] 60 mg PO QAM #90 tablet 10/18/18 Gabapentin [Neurontin 100 mg Capsule] 100 mg PO TID #90 capsule 10/18/18 Oxycodone HCl/Acetaminophen [Percocet 7.5-325 mg Tablet] 1 each PO Q6HP PRN #60 tablet 10/18/18 Clopidogrel Bisulfate [Plavix 75 mg Tablet] 75 mg PO DAILY 11/04/18 Insulin Detemir [Levemir] 50 unit SQ BID 11/04/18 Tramadol HCl [Ultram 50 mg Tablet] 50 mg PO TID 11/04/18 Valsartan [Diovan 160 mg Tablet] 160 mg PO DAILY 11/04/18 Allergies/Adverse Reactions: pregabalin [From Lyrica] Allergy (Verified 10/30/18 14:33) Swelling of hands and face Review of Systems Constitutional: ABSENT: chills, fever(s), headache(s), weight gain, weight loss Eyes: ABSENT: visual disturbances Ears: ABSENT: hearing changes Nose, Mouth, and Throat: ABSENT: as per HPI, headache(s), mouth pain, sore throat, vertigo, other Cardiovascular: PRESENT: other - heaviness and pressure feeling but no definite chest pain. ABSENT: chest pain, dyspnea on exertion, edema, orthropnea, palpitations Respiratory: PRESENT: dyspnea. ABSENT: as per HPI, cough, hemoptysis, sputum, other Gastrointestinal: ABSENT: abdominal pain, constipation, diarrhea, hematemesis, hematochezia, nausea, vomiting Musculoskeletal: ABSENT: joint swelling Integumentary: ABSENT: rash, wounds Neurological: ABSENT: abnormal gait, abnormal speech, confusion, dizziness, focal weakness, syncope Psychiatric: ABSENT: anxiety, depression, homidical ideation, suicidal ideation Endocrine: ABSENT: cold intolerance, heat intolerance, polydipsia, polyuria Hematologic/Lymphatic: ABSENT: easy bleeding, easy bruising, lymphadenopathy Allergic/Immunologic: ABSENT: seasonal rhinorrhea Physical Exam Vital Signs: Temp Pulse Resp BP Pulse Ox 98.7 F 78 14 158/84 H 100 11/04/18 18:54 11/04/18 18:54 11/04/18 18:54 11/04/18 18:54 11/04/18 18:54 Intake & Output 11/03/18 11/04/18 11/05/18 06:59 06:59 06:59 Intake Total 418 1434 Output Total 200 300 Balance 218 1134 Weight 97.7 kg General appearance: PRESENT: no acute distress, obese Head exam: PRESENT: atraumatic, normocephalic Eye exam: PRESENT: conjunctiva pink, EOMI, PERRLA. ABSENT: scleral icterus Ear exam: PRESENT: normal external ear exam Mouth exam: PRESENT: moist, tongue midline Teeth exam: PRESENT: poor dentation Neck exam: PRESENT: full ROM. ABSENT: carotid bruit, JVD, lymphadenopathy, thyromegaly Respiratory exam: PRESENT: clear to auscultation jerrica, decreased breath sounds Cardiovascular exam: PRESENT: RRR. ABSENT: diastolic murmur, rubs, systolic murmur Vascular exam: PRESENT: pallor GI/Abdominal exam: PRESENT: normal bowel sounds, soft. ABSENT: distended, guarding, mass, organolmegaly, rebound, tenderness Rectal exam: PRESENT: deferred Extremities exam: PRESENT: pedal edema - chronic bilaterally pedal edema Neurological exam: PRESENT: alert, awake, oriented to person, oriented to place, oriented to time, oriented to situation, CN II-XII grossly intact. ABSENT: motor sensory deficit Psychiatric exam: PRESENT: appropriate affect, normal mood. ABSENT: homicidal ideation, suicidal ideation Skin exam: PRESENT: dry, warm, other Results Laboratory Results: 11/03/18 21:27 11/03/18 21:27 11/03/18 11/03/18 11/03/18 21:27 21:27 21:27 WBC 7.3 RBC 2.56 L Hgb 7.5 L Hct 23.1 L MCV 90 MCH 29.1 MCHC 32.3 RDW 17.3 H Plt Count 292 Seg Neutrophils % 71.4 Lymphocytes % 16.8 Monocytes % 10.5 Eosinophils % 0.9 Basophils % 0.4 Absolute Neutrophils 5.2 Absolute Lymphocytes 1.2 Absolute Monocytes 0.8 Absolute Eosinophils 0.1 Absolute Basophils 0.0 Retic Count (auto) Absolute Retic Sodium 141.6 Potassium 3.9 Chloride 108 H Carbon Dioxide 25 Anion Gap 9 BUN 27 H Creatinine 1.18 Est GFR ( Amer) 56 L Est GFR (Non-Af Amer) 46 L Glucose 126 H Calcium 9.0 Phosphorus 3.8 Magnesium 2.0 Iron TIBC % Saturation Ferritin Ammonia Amylase 62 Lipase 16.7 L Vitamin B12 Folate TSH Free T4 Blood Type Antibody Screen 11/03/18 11/03/18 11/03/18 21:27 21:27 21:27 WBC RBC Hgb Hct MCV MCH MCHC RDW Plt Count Seg Neutrophils % Lymphocytes % Monocytes % Eosinophils % Basophils % Absolute Neutrophils Absolute Lymphocytes Absolute Monocytes Absolute Eosinophils Absolute Basophils Retic Count (auto) 3.52 H Absolute Retic 0.089 Sodium Potassium Chloride Carbon Dioxide Anion Gap BUN Creatinine Est GFR ( Amer) Est GFR (Non-Af Amer) Glucose Calcium Phosphorus Magnesium Iron 61.6 TIBC 255 % Saturation 24 Ferritin 122.00 Ammonia Amylase Lipase Vitamin B12 363.0 Folate > 20.00 TSH 1.65 Free T4 1.54 Blood Type Antibody Screen 11/04/18 11/04/18 01:06 09:31 WBC RBC Hgb Hct MCV MCH MCHC RDW Plt Count Seg Neutrophils % Lymphocytes % Monocytes % Eosinophils % Basophils % Absolute Neutrophils Absolute Lymphocytes Absolute Monocytes Absolute Eosinophils Absolute Basophils Retic Count (auto) Absolute Retic Sodium Potassium Chloride Carbon Dioxide Anion Gap BUN Creatinine Est GFR ( Amer) Est GFR (Non-Af Amer) Glucose Calcium Phosphorus Magnesium Iron TIBC % Saturation Ferritin Ammonia < 8.7 L Amylase Lipase Vitamin B12 Folate TSH Free T4 Blood Type A2subB POSITIVE Antibody Screen NEGATIVE 11/03/18 11/03/18 11/03/18 21:27 21:27 21:27 Creatine Kinase 42 Cancelled CK-MB (CK-2) Troponin I < 0.012 NT-Pro-B Natriuret Pep 4100 H 11/04/18 11/04/18 11/04/18 01:06 01:06 06:40 Creatine Kinase 25 L 28 L CK-MB (CK-2) < 0.22 Troponin I < 0.012 NT-Pro-B Natriuret Pep 4750 H 11/04/18 06:40 Creatine Kinase CK-MB (CK-2) < 0.22 Troponin I 0.026 NT-Pro-B Natriuret Pep Impressions: Chest X-Ray 11/03/18 21:41 IMPRESSION: Cardiomegaly. Lungs are clear copyright 2010 [employer]- All Rights Reserved Assessment & Plan - Diagnosis (1) Anemia requiring transfusions Is this a current diagnosis for this admission?: Yes Plan: See admitting attending physician orders for care plan details. (2) Anemia of chronic disease Is this a current diagnosis for this admission?: Yes Plan: See admitting attending physician orders for care plan details. (3) Chronic stable angina Is this a current diagnosis for this admission?: Yes Plan: See admitting attending physician orders for care plan details. (4) Chronic combined systolic and diastolic CHF (congestive heart failure) Is this a current diagnosis for this admission?: Yes Plan: See admitting attending physician orders for care plan details. (5) HTN (hypertension) Qualifiers: Hypertension type: essential hypertension Qualified Code(s): I10 - Es sential (primary) hypertension Is this a current diagnosis for this admission?: Yes Plan: See admitting attending physician orders for care plan details. (6) S/P CABG (coronary artery bypass graft) Is this a current diagnosis for this admission?: Yes Plan: See admitting attending physician orders for care plan details. (7) Diabetes mellitus type 2 in obese Is this a current diagnosis for this admission?: Yes Plan: See admitting attending physician orders for care plan details. (8) 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 2 diabetes mellitus Qualifiers: Diabetic foot ulcer location: heel Non-pressure ulcer stage: unspecified non-pressure ulcer stage Qualified Code(s): E11.621 - Type 2 diabetes mellitus with foot ulcer; L97.429 - Non-pressure chronic ulcer of left heel and midfoot with unspecified severity; L97.429 - Non-pressure chronic ulcer of left heel and midfoot with unspecified severity; L97.429 - Non-pressure chronic ulcer of left heel and midfoot with unspecified severity; L97.429 - Non-pressure chronic ulcer of left heel and midfoot with unspecified severity Is this a current diagnosis for this admission?: Yes Plan: See admitting attending physician orders for care plan details. (9) HLD (hyperlipidemia) Qualifiers: Hyperlipidemia type: pure hypercholesterolemia Qualified Code(s): E78.00 - Pure hypercholesterolemia, unspecified Is this a current diagnosis for this admission?: Yes Plan: See admitting attending physician orders for care plan details. (10) COPD (chronic obstructive pulmonary disease) Qualifiers: COPD type: unspecified COPD Qualified Code(s): J44.9 - Chronic obstructive pulmonary disease, unspecified Is this a current diagnosis for this admission?: Yes Plan: See admitting attending physician orders for care plan details. (11) Hx of stroke without residual deficits Is this a current diagnosis for this admission?: Yes Plan: See admitting attending physician orders for care plan details. (12) Chronic use of opiate for therapeutic purpose Is this a current diagnosis for this admission?: Yes Plan: See admitting attending physician orders for care plan details. (13) Obesity (BMI 30-39.9) Is this a current diagnosis for this admission?: Yes Plan: See admitting attending physician orders for care plan details. - Time Time Spent: 50 to 70 Minutes Medications reviewed and adjusted accordingly: Yes Anticipated discharge: Home with Homehealth Within: Other - Inpatient Certification Based on my medical assessment, after consideration of the patient's comorbidities, presenting symptoms, or acuity I expect that the services needed warrant INPATIENT care.: Yes I certify that my determination is in accordance with my understanding of Medicare's requirements for reasonable and necessary INPATIENT services [42 CFR 412.3e].: Yes Medical Necessity: Significant Comorbidiites Make Outpatient Treatment Too Risky, Need Close Monitoring Due to Risk of Patient Decompensation, Need For Continuous Telemetry Monitoring, Risk of Complication if Not Cared For in Hospital, Risk of Diagnosis Which Will Require Inpatient Eval/Care/Monitoring Post Hospital Care: D/C Business Services Analyst Documentation - Plan Summary Plan Summary: See admitting attending physician orders for care plan details.
[2018-11-04 22:25] LABS: CREATINE KINASE MB 0.27 ng/mL (<4.55); TROPONIN I < 0.012 ng/mL
[2018-11-05] MEDS: PANTOPRAZOLE SODIUM 40 MG TABLET.DR PO SCH (05:03)
[2018-11-05 06:24] LABS: ABSOLUTE EOSINOPHILS # (AUTO) 0.1 10^3/uL (0.0-0.6); ABSOLUTE LYMPHOCYTES (AUTO) 1.4 10^3/uL (0.5-4.7); ABSOLUTE MONOCYTES (AUTO) 0.9 10^3/uL (0.1-1.4); ABSOLUTE NEUT (AUTO) 4.3 10^3/uL (1.7-8.2); BASOPHILS % (AUTO) 0.5 % (0-2); EOSINOPHILS % (AUTO) 1.8 % (0-6); HEMOGLOBIN 9.4 g/dL (12.0-15.5); LYMPHOCYTES % (AUTO) 20.9 % (13-45); MEAN CORPUSCULAR HEMOGLOBIN 29.1 pg (27.0-33.4); MEAN CORPUSCULAR HGB CONC 32.5 g/dL (32.0-36.0); MEAN CORPUSCULAR VOLUME 90 fl (80-97); MONOCYTES % (AUTO) 13.3 % (3-13); PLATELET COUNT 218 10^3/uL (150-450); RED BLOOD COUNT 3.24 10^6/uL (3.72-5.28); RED CELL DISTRIBUTION WIDTH 16.6 % (11.5-14.0); SEGMENTED NEUTROPHILS % (AUTO) 63.5 % (42-78); TOTAL CELLS COUNTED % (AUTO) 100 %; WHITE BLOOD COUNT 6.8 10^3/uL (4.0-10.5)
[2018-11-05 06:45] LABS: ALANINE AMINOTRANSFERASE 16 U/L (9-52); ALBUMIN 3.3 g/dL (3.5-5.0); ALKALINE PHOSPHATASE 319 U/L (38-126); ANION GAP 6 (5-19); ASPARTATE AMINO TRANSFERASE 31 U/L (14-36); BILIRUBIN,DIRECT 0.9 mg/dL (0.0-0.4); BILIRUBIN,TOTAL 1.8 mg/dL (0.2-1.3); BLOOD UREA NITROGEN 18 mg/dL (7-20); CALCIUM 9.1 mg/dL (8.4-10.2); CARBON DIOXIDE 26 mmol/L (22-30); CHLORIDE 110 mmol/L (98-107); CHOLESTEROL 125.38 mg/dL (0-200); GLUCOSE 112 mg/dL (75-110); POTASSIUM 4.1 mmol/L (3.6-5.0); SODIUM 141.6 mmol/L (137-145); TRIGLYCERIDES 63 mg/dL (<150)
[2018-11-05 06:56] LABS: DIRECT LDL 65 mg/dL (<100)
[2018-11-05] MEDS: INSULIN LISPRO 100 UNIT/ML 3 ML VIAL SUBCUT SCH ×4 (08:15→21:43)
[2018-11-05] MEDS ORDERED: TRAMADOL HCL 50 MG TABLET PO SCH (10:00)
[2018-11-05] MEDS ORDERED: VALSARTAN 160 MG TABLET PO SCH (10:00)
[2018-11-05] MEDS ORDERED: INSULIN DETEMIR 50 UNIT SQ SCH (10:00)
[2018-11-05] MEDS: FAMOTIDINE 20 MG TABLET PO SCH ×2 (10:11→17:04)
[2018-11-05] MEDS: APIXABAN 2.5 MG TABLET PO SCH ×2 (10:11→17:04)
[2018-11-05] MEDS: FUROSEMIDE 20 MG TABLET PO SCH (10:11)
[2018-11-05] MEDS: GABAPENTIN 100 MG CAPSULE PO SCH ×3 (10:11→17:04)
[2018-11-05] MEDS: ASCORBIC ACID 500 MG TABLET PO SCH (10:11)
[2018-11-05] MEDS: ENOXAPARIN SODIUM INJ 30 MG/0.3 ML DISP.SYRIN SUBCUT SCH (10:12)
[2018-11-05] MEDS: AMLODIPINE BESYLATE 10 MG TABLET PO SCH (10:12)
[2018-11-05] MEDS: OXYCODONE-ACETAMINOPHEN 5-325 MG TABLET PO PRN (10:18)
[2018-11-05] MEDS: OXYCODONE HCL IR 5 MG TABLET PO PRN (10:19)
--- NOTE | 2018-11-05 11:21 | Physician Advisory Note ---
Physician Advisor ProgressNote .: Pursuant to the plan for [facility], I have reviewed the medical record for this patient. Physician Advisor Statement: H&P does beautiful job of listing chronic dx.s w/sufficient detail: ACD, chr stable angina, chr syst/diast CHF, DM foot ulcer, .... H&P explains need for 1st MN (in ED, 11/03 PM) for CP/SOB/anemia, transfusion. Approp'ly made Obs status for this to monitor response to transfusion. H&P does not explain reason pt not d/c'd home before 2nd MN in hospital (i.e. on 7 PM). On 7 PM, sx-atic anemia already transfused up to 9.7, + chronic stable angina, other chronic co-morbidities. -> What was the ongoing concern/issue that could not be managed outpt at that point, & what was being done about it? (If nothing being done but monitoring/po meds, but that was due to higher concerns that doing something more could cause more problems than not doing something, then state that - it shows level of acuity/complexity is > office level care.) - Was attg concerned about the temp up to 102.7 during the first night? What was being done about it & why? - Was attg concerned about the hypoxemia during the first night (down to 89% on RA & 93% on 2L, which = P/F ratio of 246) - was this different from baseline? What was the concern? What was being done about it? - Was attg concerned about the increase in BNP over the 1st night, leading to order for fluid restriction on 7/1 AM? .... Status: IF attending still has concerns about a Medicare pt like this that require 2nd MN in hospital, then documenting the concerns will explain continued hospitalization & support change to Inpatient status. If attending no longer has ongoing concerns/tx.s that require hospital level of care for 2nd MN, then pt should be d/c'd home prior to that 2nd MN - at least from the standpoint of CMS. Thanks in advance for making these points clear for your pts. CK Also: Hgb was 8.8 on 10/30. Did pt have Anemia of Acute Blood Loss due to bleeding from her wounds, or was the drop to 7.5 over 4 days still essentially her baseline, or ...?
[2018-11-05] MEDS: INSULIN GLARGINE,HUM.REC.ANLOG 1,000 UNIT/10 ML VIAL SUBCUT SCH ×2 (12:14→17:04)
--- NOTE | 2018-11-05 13:15 | PDOC PROGRESS REPORT ---
Subjective Progress Note for:: 11/05/18 Subjective:: Patient reported persistent pressure feeling and difficulty with breathing this morning. She is post transfusion with 2 units PRBC. No definite chest pain. No palpitation, diaphoresis, nausea, or vomiting. Tolerating oral feeding and medication administration. Noted discrepancies on her medication reconciliation since admission. Reason For Visit: CHEST PAIN Physical Exam Vital Signs: Temp Pulse Resp BP Pulse Ox 98.3 F 66 16 149/73 H 95 11/05/18 08:02 11/05/18 08:02 11/05/18 08:02 11/05/18 08:02 11/05/18 08:02 Intake & Output 11/04/18 11/05/18 11/06/18 06:59 06:59 06:59 Intake Total 418 1554 Output Total 200 400 Balance 218 1154 Weight 97.7 kg 96.3 kg General appearance: PRESENT: no acute distress Head exam: PRESENT: atraumatic, normocephalic Eye exam: PRESENT: conjunctiva pink, scleral icterus Ear exam: PRESENT: normal external ear exam Mouth exam: PRESENT: moist Teeth exam: PRESENT: poor dentation Respiratory exam: PRESENT: clear to auscultation jerrica, decreased breath sounds - at lung bases Cardiovascular exam: PRESENT: RRR. ABSENT: diastolic murmur, rubs, systolic murmur Vascular exam: ABSENT: pallor GI/Abdominal exam: PRESENT: normal bowel sounds, soft. ABSENT: distended, guarding, mass, organolmegaly, rebound, tenderness Extremities exam: PRESENT: pedal edema - 2+ bilaterally Neurological exam: PRESENT: alert, awake, oriented to person, oriented to place, oriented to time, oriented to situation, CN II-XII grossly intact. ABSENT: motor sensory deficit Psychiatric exam: PRESENT: appropriate affect, normal mood. ABSENT: homicidal ideation, suicidal ideation Skin exam: PRESENT: dry, warm Results Laboratory Results: 11/05/18 05:35 11/05/18 05:35 11/04/18 11/04/18 11/05/18 09:31 21:30 05:35 WBC 8.2 6.8 RBC 3.30 L 3.24 L Hgb 9.7 L D 9.4 L Hct 29.4 L 29.0 L MCV 89 90 MCH 29.3 29.1 MCHC 32.8 32.5 RDW 17.0 H 16.6 H Plt Count 238 218 Seg Neutrophils % 74.3 63.5 Lymphocytes % 13.7 20.9 Monocytes % 11.1 13.3 H Eosinophils % 0.6 1.8 Basophils % 0.3 0.5 Absolute Neutrophils 6.1 4.3 Absolute Lymphocytes 1.1 1.4 Absolute Monocytes 0.9 0.9 Absolute Eosinophils 0.0 0.1 Absolute Basophils 0.0 0.0 Sodium Potassium Chloride Carbon Dioxide Anion Gap BUN Creatinine Est GFR ( Amer) Est GFR (Non-Af Amer) Glucose Calcium Total Bilirubin AST ALT Alkaline Phosphatase Total Protein Albumin Triglycerides Cholesterol LDL Cholesterol Direct VLDL Cholesterol HDL Cholesterol Blood Type A2subB POSITIVE Antibody Screen NEGATIVE 11/05/18 05:35 WBC RBC Hgb Hct MCV MCH MCHC RDW Plt Count Seg Neutrophils % Lymphocytes % Monocytes % Eosinophils % Basophils % Absolute Neutrophils Absolute Lymphocytes Absolute Monocytes Absolute Eosinophils Absolute Basophils Sodium 141.6 Potassium 4.1 Chloride 110 H Carbon Dioxide 26 Anion Gap 6 BUN 18 Creatinine 0.77 Est GFR ( Amer) > 60 Est GFR (Non-Af Amer) > 60 Glucose 112 H Calcium 9.1 Total Bilirubin 1.8 H AST 31 ALT 16 Alkaline Phosphatase 319 H Total Protein 8.0 Albumin 3.3 L Triglycerides 63 Cholesterol 125.38 LDL Cholesterol Direct 65 VLDL Cholesterol 13.0 HDL Cholesterol 37 L Blood Type Antibody Screen 11/03/18 11/03/18 11/03/18 21:27 21:27 21:27 Creatine Kinase 42 Cancelled CK-MB (CK-2) Troponin I < 0.012 NT-Pro-B Natriuret Pep 4100 H 11/04/18 11/04/18 11/04/18 01:06 01:06 06:40 Creatine Kinase 25 L 28 L CK-MB (CK-2) < 0.22 Troponin I < 0.012 NT-Pro-B Natriuret Pep 4750 H 11/04/18 11/04/18 11/04/18 06:40 21:30 21:30 Creatine Kinase 29 L CK-MB (CK-2) < 0.22 0.27 Troponin I 0.026 < 0.012 NT-Pro-B Natriuret Pep Impressions: Chest X-Ray 11/03/18 21:41 IMPRESSION: Cardiomegaly. Lungs are clear copyright 2011 [employer]- All Rights Reserved Assessment & Plan - Diagnosis (1) Anemia requiring transfusions Is this a current diagnosis for this admission?: Yes (2) Acute on chronic combined systolic and diastolic CHF, NYHA class 3 Is this a current diagnosis for this admission?: Yes Plan: Emphasized dietary and fluid restrictions. Emphasized compliance with medications. Start on IV Lasix 60 mg daily. (3) Anemia of chronic disease Is this a current diagnosis for this admission?: Yes (4) Chronic stable angina Is this a current diagnosis for this admission?: Yes (5) Chronic combined systolic and diastolic CHF (congestive heart failure) Is this a current diagnosis for this admission?: Yes (6) HTN (hypertension) Qualifiers: Hypertension type: essential hypertension Is this a current diagnosis for this admission?: Yes (7) S/P CABG (coronary artery bypass graft) Is this a current diagnosis for this admission?: Yes (8) Diabetes mellitus type 2 in obese Is this a current diagnosis for this admission?: Yes (9) 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 2 diabetes mellitus Qualifiers: Diabetic foot ulcer location: heel Non-pressure ulcer stage: unspecified non-pressure ulcer stage Qualified Code(s): E11.621 - Type 2 diabetes mellitus with foot ulcer; L97.429 - Non-pressure chronic ulcer of left heel and midfoot with unspecified severity; L97.429 - Non-pressure chronic ulcer of left heel and midfoot with unspecified severity; L97.429 - Non-pressure chronic ulcer of left heel and midfoot with unspecified severity; L97.429 - Non-pressure chronic ulcer of left heel and midfoot with unspecified severity Is this a current diagnosis for this admission?: Yes (10) HLD (hyperlipidemia) Qualifiers: Hyperlipidemia type: pure hypercholesterolemia Qualified Code(s): E78.00 - Pure hypercholesterolemia, unspecified Is this a current diagnosis for this admission?: Yes (11) COPD (chronic obstructive pulmonary disease) Qualifiers: COPD type: unspecified COPD Qualified Code(s): J44.9 - Chronic obstructive pulmonary disease, unspecified Is this a current diagnosis for this admission?: Yes (12) Hx of stroke without residual deficits Is this a current diagnosis for this admission?: Yes (13) Chronic use of opiate for therapeutic purpose Is this a current diagnosis for this admission?: Yes (14) Obesity (BMI 30-39.9) Is this a current diagnosis for this admission?: Yes - Time Time Spent with patient: 25-34 minutes Medications reviewed and adjusted accordingly: Yes Anticipated discharge: Home with Homehealth Within: Other - Inpatient Certification Based on my medical assessment, after consideration of the patient's comorbidities, presenting symptoms, or acuity I expect that the services needed warrant INPATIENT care.: Yes I certify that my determination is in accordance with my understanding of Medicare's requirements for reasonable and necessary INPATIENT services [42 CFR 412.3e].: Yes Medical Necessity: Significant Comorbidiites Make Outpatient Treatment Too Risky, Need Close Monitoring Due to Risk of Patient Decompensation, Need For Continuous Telemetry Monitoring, Risk of Complication if Not Cared For in Hospital, Risk of Diagnosis Which Will Require Inpatient Eval/Care/Monitoring - Plan Summary Plan Summary: Medication reconciliation with corrected anti -failure medications. I discussed this issue with her assigned nursing staff and in house pharmacist today. Patient reported that her medication has been prepackaged by her community pharmacy based on previous prescriptions. Change patient status to full admission with worsening NT-Pro BNP level and symptoms that may be related to worsening cardiac function along with her bilateral lower extremities edema.
[2018-11-05] MEDS ORDERED: FUROSEMIDE INJ/PF 40 MG/4 ML SDV IV ONE (14:00)
[2018-11-05] MEDS: ATORVASTATIN CALCIUM 20 MG TABLET PO SCH (21:42)
[2018-11-06] MEDS: OXYCODONE-ACETAMINOPHEN 5-325 MG TABLET PO PRN ×2 (01:25→17:14)
[2018-11-06] MEDS: OXYCODONE HCL IR 5 MG TABLET PO PRN ×2 (01:25→17:15)
[2018-11-06 05:16] LABS: ABSOLUTE EOSINOPHILS # (AUTO) 0.2 10^3/uL (0.0-0.6); ABSOLUTE LYMPHOCYTES (AUTO) 1.4 10^3/uL (0.5-4.7); BASOPHILS % (AUTO) 0.3 % (0-2); EOSINOPHILS % (AUTO) 2.6 % (0-6); HEMATOCRIT 27.9 % (36.0-47.0); HEMOGLOBIN 8.9 g/dL (12.0-15.5); LYMPHOCYTES % (AUTO) 18.2 % (13-45); MEAN CORPUSCULAR HEMOGLOBIN 28.9 pg (27.0-33.4); MEAN CORPUSCULAR VOLUME 90 fl (80-97); MONOCYTES % (AUTO) 12.8 % (3-13); PLATELET COUNT 201 10^3/uL (150-450); RED BLOOD COUNT 3.08 10^6/uL (3.72-5.28); RED CELL DISTRIBUTION WIDTH 16.6 % (11.5-14.0); SEGMENTED NEUTROPHILS % (AUTO) 66.1 % (42-78); TOTAL CELLS COUNTED % (AUTO) 100 %; WHITE BLOOD COUNT 7.5 10^3/uL (4.0-10.5)
[2018-11-06 05:30] LABS: ALANINE AMINOTRANSFERASE 17 U/L (9-52); ALBUMIN 3.2 g/dL (3.5-5.0); ALKALINE PHOSPHATASE 301 U/L (38-126); ANION GAP 6 (5-19); ASPARTATE AMINO TRANSFERASE 28 U/L (14-36); BILIRUBIN,DIRECT 0.7 mg/dL (0.0-0.4); BILIRUBIN,TOTAL 1.2 mg/dL (0.2-1.3); BLOOD UREA NITROGEN 20 mg/dL (7-20); CARBON DIOXIDE 28 mmol/L (22-30); CHLORIDE 108 mmol/L (98-107); GLUCOSE 72 mg/dL (75-110); POTASSIUM 4.6 mmol/L (3.6-5.0); SODIUM 141.6 mmol/L (137-145); TOTAL PROTEIN 7.6 g/dL (6.3-8.2)
[2018-11-06] MEDS: PANTOPRAZOLE SODIUM 40 MG TABLET.DR PO SCH (05:59)
[2018-11-06] MEDS ORDERED: FUROSEMIDE INJ/PF 40 MG/4 ML SDV IV ONE (07:57)
[2018-11-06] MEDS ORDERED: NITROGLYCERIN 0.4 MG/TAB 25 TAB/BOTTLE SL PRN (07:58)
[2018-11-06] MEDS ORDERED: DOCUSATE SODIUM 100 MG CAPSULE PO PRN (07:58)
[2018-11-06] MEDS ORDERED: FUROSEMIDE INJ/PF 100 MG/10 ML SDV IV ONE (08:15)
[2018-11-06] MEDS: INSULIN LISPRO 100 UNIT/ML 3 ML VIAL SUBCUT SCH ×4 (09:19→22:00)
[2018-11-06] MEDS: AMLODIPINE BESYLATE 10 MG TABLET PO SCH (09:23)
[2018-11-06] MEDS: GABAPENTIN 100 MG CAPSULE PO SCH ×4 (09:23→21:09)
[2018-11-06] MEDS: RANOLAZINE 500 MG TAB.SR.12H PO SCH ×2 (09:23→21:09)
[2018-11-06] MEDS: SACUBITRIL/VALSARTAN 24 MG/26 MG TABLET PO SCH ×2 (09:24→21:08)
[2018-11-06] MEDS: ASCORBIC ACID 500 MG TABLET PO SCH (09:24)
[2018-11-06] MEDS: FAMOTIDINE 20 MG TABLET PO SCH ×2 (09:24→17:34)
[2018-11-06] MEDS: INSULIN GLARGINE,HUM.REC.ANLOG 1,000 UNIT/10 ML VIAL SUBCUT SCH ×2 (09:24→17:16)
[2018-11-06] MEDS: FERROUS SULFATE 325 MG TABLET PO SCH (09:24)
[2018-11-06] MEDS: APIXABAN 2.5 MG TABLET PO SCH ×2 (09:40→18:39)
[2018-11-06] MEDS: SIMETHICONE 80 MG TAB.CHEW PO SCH ×2 (12:08→17:35)
--- NOTE | 2018-11-06 17:56 | EKG REPORT ---
SEVERITY:- ABNORMAL ECG - SINUS RHYTHM PROBABLE LEFT VENTRICULAR HYPERTROPHY : Confirmed by: Irma Hitchcock 06-Nov-2018 17:55:47
--- NOTE | 2018-11-06 18:46 | PDOC PROGRESS REPORT ---
Subjective Progress Note for:: 11/06/18 Subjective:: Patient continue to experience persistent pressure feeling and difficulty with breathing. No definite chest pain. No palpitation, diaphoresis, nausea, or vomiting. Tolerating oral feeding and medication administration. Urine output remain satisfactory of IV Lasix therapy. Reason For Visit: ANEMIA WITH NEED FOR TRANSFUSION; ACUTE ON CHRONIC Physical Exam Vital Signs: Temp Pulse Resp BP Pulse Ox 98.3 F 79 16 154/76 H 96 11/06/18 12:03 11/06/18 14:00 11/06/18 12:03 11/06/18 12:03 11/06/18 12:03 Intake & Output 11/05/18 11/06/18 11/07/18 06:59 06:59 06:59 Intake Total 1554 740 Output Total 400 402 Balance 1154 338 Weight 96.3 kg 98.3 kg Physical Exam: General appearance: PRESENT: no acute distress Head exam: PRESENT: atraumatic, normocephalic Eye exam: PRESENT: conjunctiva pink ABSENT: pallor, scleral icterus Ear exam: PRESENT: normal external ear exam Mouth exam: PRESENT: moist Teeth exam: PRESENT: poor dentition Respiratory exam: PRESENT: clear to auscultation jerrica, decreased breath sounds - at lung bases Cardiovascular exam: PRESENT: RRR. ABSENT: diastolic murmur, rubs, systolic murmur GI/Abdominal exam: PRESENT: normal bowel sounds, soft. ABSENT: distended, guarding, mass, organomegaly, rebound, tenderness Extremities exam: PRESENT: pedal edema - 2+ bilaterally improving. Neurological exam: PRESENT: alert, awake, oriented to person, oriented to place, oriented to time, oriented to situation, CN II-XII grossly intact. ABSENT: motor sensory deficit Psychiatric exam: PRESENT: appropriate affect, normal mood. ABSENT: homicidal ideation, suicidal ideation Skin exam: PRESENT: dry, warm Results Laboratory Results: 11/06/18 04:33 11/06/18 04:33 11/06/18 11/06/18 04:33 04:33 WBC 7.5 RBC 3.08 L Hgb 8.9 L Hct 27.9 L MCV 90 MCH 28.9 MCHC 32.0 RDW 16.6 H Plt Count 201 Seg Neutrophils % 66.1 Lymphocytes % 18.2 Monocytes % 12.8 Eosinophils % 2.6 Basophils % 0.3 Absolute Neutrophils 5.0 Absolute Lymphocytes 1.4 Absolute Monocytes 1.0 Absolute Eosinophils 0.2 Absolute Basophils 0.0 Sodium 141.6 Potassium 4.6 Chloride 108 H Carbon Dioxide 28 Anion Gap 6 BUN 20 Creatinine 0.98 Est GFR ( Amer) > 60 Est GFR (Non-Af Amer) 57 L Glucose 72 L Calcium 9.0 Total Bilirubin 1.2 AST 28 ALT 17 Alkaline Phosphatase 301 H Total Protein 7.6 Albumin 3.2 L 11/03/18 11/03/18 11/03/18 21:27 21:27 21:27 Creatine Kinase 42 Cancelled CK-MB (CK-2) Troponin I < 0.012 NT-Pro-B Natriuret Pep 4100 H 11/04/18 11/04/18 11/04/18 01:06 01:06 06:40 Creatine Kinase 25 L 28 L CK-MB (CK-2) < 0.22 Troponin I < 0.012 NT-Pro-B Natriuret Pep 4750 H 11/04/18 11/04/18 11/04/18 06:40 21:30 21:30 Creatine Kinase 29 L CK-MB (CK-2) < 0.22 0.27 Troponin I 0.026 < 0.012 NT-Pro-B Natriuret Pep Impressions: Chest X-Ray 11/03/18 21:41 IMPRESSION: Cardiomegaly. Lungs are clear copyright 2011 [employer]- All Rights Reserved Assessment & Plan - Diagnosis (1) Anemia requiring transfusions Is this a current diagnosis for this admission?: Yes (2) Acute on chronic combined systolic and diastolic CHF, NYHA class 3 Is this a current diagnosis for this admission?: Yes (3) Anemia of chronic disease Is this a current diagnosis for this admission?: Yes (4) Chronic stable angina Is this a current diagnosis for this admission?: Yes (5) Chronic combined systolic and diastolic CHF (congestive heart failure) Is this a current diagnosis for this admission?: Yes (6) HTN (hypertension) Qualifiers: Hypertension type: essential hypertension Is this a current diagnosis for this admission?: Yes (7) S/P CABG (coronary artery bypass graft) Is this a current diagnosis for this admission?: Yes (8) Diabetes mellitus type 2 in obese Is this a current diagnosis for this admission?: Yes (9) 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 2 diabetes mellitus Qualifiers: Diabetic foot ulcer location: heel Non-pressure ulcer stage: unspecified non-pressure ulcer stage Qualified Code(s): E11.621 - Type 2 diabetes mellitus with foot ulcer; L97.429 - Non-pressure chronic ulcer of left heel and midfoot with unspecified severity; L97.429 - Non-pressure chronic ulcer of left heel and midfoot with unspecified severity; L97.429 - Non-pressure chronic ulcer of left heel and midfoot with unspecified severity; L97.429 - Non-pressure chronic ulcer of left heel and midfoot with unspecified severity Is this a current diagnosis for this admission?: Yes (10) HLD (hyperlipidemia) Qualifiers: Hyperlipidemia type: pure hypercholesterolemia Qualified Code(s): E78.00 - Pure hypercholesterolemia, unspecified Is this a current diagnosis for this admission?: Yes (11) COPD (chronic obstructive pulmonary disease) Qualifiers: COPD type: unspecified COPD Qualified Code(s): J44.9 - Chronic obstructive pulmonary disease, unspecified Is this a current diagnosis for this admission?: Yes (12) Hx of stroke without residual deficits Is this a current diagnosis for this admission?: Yes (13) Chronic use of opiate for therapeutic purpose Is this a current diagnosis for this admission?: Yes (14) Obesity (BMI 30-39.9) Is this a current diagnosis for this admission?: Yes - Time Time Spent with patient: 25-34 minutes Medications reviewed and adjusted accordingly: Yes Anticipated discharge: Home with Homehealth Within: Other - Inpatient Certification Based on my medical assessment, after consideration of the patient's comorbidities, presenting symptoms, or acuity I expect that the services needed warrant INPATIENT care.: Yes I certify that my determination is in accordance with my understanding of Medicare's requirements for reasonable and necessary INPATIENT services [42 CFR 412.3e].: Yes Medical Necessity: Significant Comorbidiites Make Outpatient Treatment Too Risky, Need Close Monitoring Due to Risk of Patient Decompensation, Need For Continuous Telemetry Monitoring, Risk of Complication if Not Cared For in Hospital, Risk of Diagnosis Which Will Require Inpatient Eval/Care/Monitoring Post Hospital Care: D/C Motion Designer Documentation - Plan Summary Plan Summary: Maintain on fluid restriction and IV Lasix therapy. Continue all other current medication management. Lantus insulin currently not administered due to poor intake associated hypoglycemia.
[2018-11-06] MEDS: ATORVASTATIN CALCIUM 20 MG TABLET PO SCH (21:09)
[2018-11-07] MEDS: SIMETHICONE 80 MG TAB.CHEW PO SCH ×4 (00:20→18:28)
[2018-11-07 05:26] LABS: ABSOLUTE EOSINOPHILS # (AUTO) 0.2 10^3/uL (0.0-0.6); ABSOLUTE LYMPHOCYTES (AUTO) 1.4 10^3/uL (0.5-4.7); ABSOLUTE MONOCYTES (AUTO) 0.8 10^3/uL (0.1-1.4); ABSOLUTE NEUT (AUTO) 6.3 10^3/uL (1.7-8.2); BASOPHILS % (AUTO) 0.4 % (0-2); EOSINOPHILS % (AUTO) 2.1 % (0-6); HEMATOCRIT 29.1 % (36.0-47.0); HEMOGLOBIN 9.5 g/dL (12.0-15.5); LYMPHOCYTES % (AUTO) 16.3 % (13-45); MEAN CORPUSCULAR HEMOGLOBIN 29.3 pg (27.0-33.4); MEAN CORPUSCULAR HGB CONC 32.7 g/dL (32.0-36.0); MEAN CORPUSCULAR VOLUME 90 fl (80-97); MONOCYTES % (AUTO) 9.3 % (3-13); PLATELET COUNT 223 10^3/uL (150-450); RED BLOOD COUNT 3.24 10^6/uL (3.72-5.28); SEGMENTED NEUTROPHILS % (AUTO) 71.9 % (42-78); TOTAL CELLS COUNTED % (AUTO) 100 %; WHITE BLOOD COUNT 8.7 10^3/uL (4.0-10.5)
[2018-11-07 05:49] LABS: ALANINE AMINOTRANSFERASE 16 U/L (9-52); ALBUMIN 2.9 g/dL (3.5-5.0); ALKALINE PHOSPHATASE 268 U/L (38-126); ANION GAP 8 (5-19); ASPARTATE AMINO TRANSFERASE 20 U/L (14-36); BILIRUBIN,DIRECT 0.6 mg/dL (0.0-0.4); BILIRUBIN,TOTAL 1.2 mg/dL (0.2-1.3); BLOOD UREA NITROGEN 21 mg/dL (7-20); CALCIUM 8.9 mg/dL (8.4-10.2); CARBON DIOXIDE 27 mmol/L (22-30); CHLORIDE 106 mmol/L (98-107); GLUCOSE 76 mg/dL (75-110); POTASSIUM 4.2 mmol/L (3.6-5.0); SODIUM 140.9 mmol/L (137-145); TOTAL PROTEIN 7.1 g/dL (6.3-8.2)
[2018-11-07] MEDS: GABAPENTIN 100 MG CAPSULE PO SCH ×3 (06:02→22:34)
[2018-11-07] MEDS: PANTOPRAZOLE SODIUM 40 MG TABLET.DR PO SCH (06:02)
[2018-11-07] MEDS: OXYCODONE HCL IR 5 MG TABLET PO PRN ×2 (06:08→18:32)
[2018-11-07] MEDS: OXYCODONE-ACETAMINOPHEN 5-325 MG TABLET PO PRN ×2 (06:09→18:32)
[2018-11-07] MEDS: INSULIN LISPRO 100 UNIT/ML 3 ML VIAL SUBCUT SCH ×4 (09:00→22:33)
[2018-11-07] MEDS: INSULIN GLARGINE,HUM.REC.ANLOG 1,000 UNIT/10 ML VIAL SUBCUT SCH ×2 (09:20→18:26)
[2018-11-07] MEDS: RANOLAZINE 500 MG TAB.SR.12H PO SCH ×2 (10:22→22:34)
[2018-11-07] MEDS: FERROUS SULFATE 325 MG TABLET PO SCH (10:22)
[2018-11-07] MEDS: FAMOTIDINE 20 MG TABLET PO SCH ×2 (10:22→18:28)
[2018-11-07] MEDS: APIXABAN 2.5 MG TABLET PO SCH ×2 (10:22→18:28)
[2018-11-07] MEDS: FUROSEMIDE 20 MG TABLET PO SCH (10:22)
[2018-11-07] MEDS: AMLODIPINE BESYLATE 10 MG TABLET PO SCH (10:22)
[2018-11-07] MEDS: ASCORBIC ACID 500 MG TABLET PO SCH (10:22)
[2018-11-07] MEDS: SACUBITRIL/VALSARTAN 24 MG/26 MG TABLET PO SCH (10:23)
--- NOTE | 2018-11-07 17:28 | PDOC PROGRESS REPORT ---
Subjective Progress Note for:: 11/07/18 Subjective:: Patient is participating more in self care. Continue to report pressure feeling and difficulty with breathing. No chest pain, palpitation, diaphoresis, nausea, or vomiting. Tolerating oral feeding and medication administration. Reason For Visit: ANEMIA WITH NEED FOR TRANSFUSION; ACUTE ON CHRONIC Physical Exam Vital Signs: Temp Pulse Resp BP Pulse Ox 98.2 F 78 16 141/65 H 96 11/07/18 11:23 11/07/18 14:00 11/07/18 11:23 11/07/18 11:23 11/07/18 11:23 Intake & Output 11/06/18 11/07/18 11/08/18 06:59 06:59 06:59 Intake Total 740 240 Output Total 402 850 Balance 338 -610 Weight 98.3 kg 95.7 kg Physical Exam: General appearance: PRESENT: no acute distress Head exam: PRESENT: atraumatic, normocephalic Eye exam: PRESENT: conjunctiva pink ABSENT: pallor, scleral icterus Ear exam: PRESENT: normal external ear exam Mouth exam: PRESENT: moist Teeth exam: PRESENT: poor dentition Respiratory exam: PRESENT: clear to auscultation jerrica, decreased breath sounds - at lung bases Cardiovascular exam: PRESENT: RRR. ABSENT: diastolic murmur, rubs, systolic murmur GI/Abdominal exam: PRESENT: normal bowel sounds, soft. ABSENT: distended, guarding, mass, organomegaly, rebound, tenderness Extremities exam: PRESENT: pedal edema - 2+ bilaterally improving. Neurological exam: PRESENT: alert, awake, oriented to person, oriented to place, oriented to time, oriented to situation, CN II-XII grossly intact. ABSENT: motor sensory deficit Psychiatric exam: PRESENT: appropriate affect, normal mood. ABSENT: homicidal ideation, suicidal ideation Skin exam: PRESENT: dry, warm Results Laboratory Results: 11/07/18 05:09 11/07/18 05:09 11/07/18 11/07/18 05:09 05:09 WBC 8.7 RBC 3.24 L Hgb 9.5 L Hct 29.1 L MCV 90 MCH 29.3 MCHC 32.7 RDW 17.0 H Plt Count 223 Seg Neutrophils % 71.9 Lymphocytes % 16.3 Monocytes % 9.3 Eosinophils % 2.1 Basophils % 0.4 Absolute Neutrophils 6.3 Absolute Lymphocytes 1.4 Absolute Monocytes 0.8 Absolute Eosinophils 0.2 Absolute Basophils 0.0 Sodium 140.9 Potassium 4.2 Chloride 106 Carbon Dioxide 27 Anion Gap 8 BUN 21 H Creatinine 0.98 Est GFR ( Amer) > 60 Est GFR (Non-Af Amer) 57 L Glucose 76 Calcium 8.9 Total Bilirubin 1.2 AST 20 ALT 16 Alkaline Phosphatase 268 H Total Protein 7.1 Albumin 2.9 L 11/03/18 11/03/18 11/03/18 21:27 21:27 21:27 Creatine Kinase 42 Cancelled CK-MB (CK-2) Troponin I < 0.012 NT-Pro-B Natriuret Pep 4100 H 11/04/18 11/04/18 11/04/18 01:06 01:06 06:40 Creatine Kinase 25 L 28 L CK-MB (CK-2) < 0.22 Troponin I < 0.012 NT-Pro-B Natriuret Pep 4750 H 11/04/18 11/04/18 11/04/18 06:40 21:30 21:30 Creatine Kinase 29 L CK-MB (CK-2) < 0.22 0.27 Troponin I 0.026 < 0.012 NT-Pro-B Natriuret Pep Impressions: Chest X-Ray 11/03/18 21:41 IMPRESSION: Cardiomegaly. Lungs are clear copyright 2010 [employer]- All Rights Reserved Assessment & Plan - Diagnosis (1) Anemia requiring transfusions Is this a current diagnosis for this admission?: Yes (2) Acute on chronic combined systolic and diastolic CHF, NYHA class 3 Is this a current diagnosis for this admission?: Yes Plan: Increase Entresto to 49mg/51mg p.o q 12 hours. (3) Anemia of chronic disease Is this a current diagnosis for this admission?: Yes (4) Chronic stable angina Is this a current diagnosis for this admission?: Yes (5) Chronic combined systolic and diastolic CHF (congestive heart failure) Is this a current diagnosis for this admission?: Yes (6) HTN (hypertension) Qualifiers: Hypertension type: essential hypertension Is this a current diagnosis for this admission?: Yes (7) S/P CABG (coronary artery bypass graft) Is this a current diagnosis for this admission?: Yes (8) Diabetes mellitus type 2 in obese Is this a current diagnosis for this admission?: Yes (9) 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 2 diabetes mellitus Qualifiers: Diabetic foot ulcer location: heel Non-pressure ulcer stage: unspecified non-pressure ulcer stage Qualified Code(s): E11.621 - Type 2 diabetes mellitus with foot ulcer; L97.429 - Non-pressure chronic ulcer of left heel and midfoot with unspecified severity; L97.429 - Non-pressure chronic ulcer of left heel and midfoot with unspecified severity; L97.429 - Non-pressure chronic ulcer of left heel and midfoot with unspecified severity; L97.429 - Non-pressure chronic ulcer of left heel and midfoot with unspecified severity Is this a current diagnosis for this admission?: Yes (10) HLD (hyperlipidemia) Qualifiers: Hyperlipidemia type: pure hypercholesterolemia Qualified Code(s): E78.00 - Pure hypercholesterolemia, unspecified Is this a current diagnosis for this admission?: Yes (11) COPD (chronic obstructive pulmonary disease) Qualifiers: COPD type: unspecified COPD Qualified Code(s): J44.9 - Chronic obstructive pulmonary disease, unspecified Is this a current diagnosis for this admission?: Yes (12) Hx of stroke without residual deficits Is this a current diagnosis for this admission?: Yes (13) Chronic use of opiate for therapeutic purpose Is this a current diagnosis for this admission?: Yes (14) Obesity (BMI 30-39.9) Is this a current diagnosis for this admission?: Yes - Time Time Spent with patient: 25-34 minutes Medications reviewed and adjusted accordingly: Yes Anticipated discharge: Home with Homehealth Within: Other - Inpatient Certification Based on my medical assessment, after consideration of the patient's comorbidities, presenting symptoms, or acuity I expect that the services needed warrant INPATIENT care.: Yes I certify that my determination is in accordance with my understanding of Medicare's requirements for reasonable and necessary INPATIENT services [42 CFR 412.3e].: Yes Medical Necessity: Significant Comorbidiites Make Outpatient Treatment Too Risky, Need Close Monitoring Due to Risk of Patient Decompensation, Need For Continuous Telemetry Monitoring, Risk of Complication if Not Cared For in Hospital, Risk of Diagnosis Which Will Require Inpatient Eval/Care/Monitoring Post Hospital Care: D/C Office Bookkeeper Documentation - Plan Summary Plan Summary: Maintain on current medication management.
[2018-11-07] MEDS: SACUBITRIL/VALSARTAN 49 MG/51 MG TABLET PO SCH (22:34)
[2018-11-07] MEDS: ATORVASTATIN CALCIUM 20 MG TABLET PO SCH (22:34)
[2018-11-08] MEDS: SIMETHICONE 80 MG TAB.CHEW PO SCH ×4 (00:48→17:48)
[2018-11-08] MEDS: OXYCODONE HCL IR 5 MG TABLET PO PRN ×3 (00:53→15:33)
[2018-11-08] MEDS: OXYCODONE-ACETAMINOPHEN 5-325 MG TABLET PO PRN ×2 (00:55→07:15)
[2018-11-08] MEDS: PANTOPRAZOLE SODIUM 40 MG TABLET.DR PO SCH (05:27)
[2018-11-08] MEDS: GABAPENTIN 100 MG CAPSULE PO SCH ×3 (05:27→22:01)
[2018-11-08] MEDS: ONDANSETRON HCL INJ/PF 4 MG/2 ML SDV IV PRN ×2 (05:33→15:32)
[2018-11-08] MEDS: SACUBITRIL/VALSARTAN 49 MG/51 MG TABLET PO SCH ×2 (10:30→22:02)
[2018-11-08] MEDS: RANOLAZINE 500 MG TAB.SR.12H PO SCH ×2 (10:52→22:01)
[2018-11-08] MEDS: FUROSEMIDE 20 MG TABLET PO SCH (10:52)
[2018-11-08] MEDS: FAMOTIDINE 20 MG TABLET PO SCH ×2 (10:52→17:49)
[2018-11-08] MEDS: AMLODIPINE BESYLATE 10 MG TABLET PO SCH (10:53)
[2018-11-08] MEDS: ASCORBIC ACID 500 MG TABLET PO SCH (10:53)
[2018-11-08] MEDS: FERROUS SULFATE 325 MG TABLET PO SCH (10:54)
[2018-11-08] MEDS: APIXABAN 2.5 MG TABLET PO SCH ×2 (10:54→17:48)
[2018-11-08] MEDS: INSULIN LISPRO 100 UNIT/ML 3 ML VIAL SUBCUT SCH ×4 (10:54→21:55)
[2018-11-08] MEDS: INSULIN GLARGINE,HUM.REC.ANLOG 1,000 UNIT/10 ML VIAL SUBCUT SCH ×2 (10:57→17:49)
--- NOTE | 2018-11-08 14:02 | PDOC PROGRESS REPORT ---
Subjective Progress Note for:: 11/08/18 Subjective:: Patient complaint about lower abdominal pain and constipation for several days. No nausea, or vomiting. Tolerating oral feeding. No chest pain, palpitation, diaphoresis. Reason For Visit: ANEMIA WITH NEED FOR TRANSFUSION; ACUTE ON CHRONIC Physical Exam Vital Signs: Temp Pulse Resp BP Pulse Ox 98.4 F 63 20 133/66 H 96 11/08/18 03:12 11/08/18 07:00 11/08/18 03:12 11/08/18 03:12 11/08/18 03:12 Intake & Output 11/07/18 11/08/18 11/09/18 06:59 06:59 06:59 Intake Total 240 1020 Output Total 850 1050 Balance -610 -30 Weight 95.7 kg 95 kg Physical Exam: General appearance: PRESENT: no acute distress Head exam: PRESENT: atraumatic, normocephalic Eye exam: PRESENT: conjunctiva pink ABSENT: pallor, scleral icterus Ear exam: PRESENT: normal external ear exam Mouth exam: PRESENT: moist Teeth exam: PRESENT: poor dentition Respiratory exam: PRESENT: clear to auscultation jerrica, decreased breath sounds - at lung bases Cardiovascular exam: PRESENT: RRR. ABSENT: diastolic murmur, rubs, systolic murmur GI/Abdominal exam: PRESENT: normal bowel sounds, soft. ABSENT: distended, guarding, mass, organomegaly, rebound, tenderness Extremities exam: PRESENT: pedal edema - 2+ bilaterally improving. Neurological exam: PRESENT: alert, awake, oriented to person, oriented to place, oriented to time, oriented to situation, CN II-XII grossly intact. ABSENT: motor sensory deficit Psychiatric exam: PRESENT: appropriate affect, normal mood. ABSENT: homicidal ideation, suicidal ideation Skin exam: PRESENT: dry, warm Results Laboratory Results: 11/07/18 05:09 11/07/18 05:09 11/03/18 11/03/18 11/03/18 21:27 21:27 21:27 Creatine Kinase 42 Cancelled CK-MB (CK-2) Troponin I < 0.012 NT-Pro-B Natriuret Pep 4100 H 11/04/18 11/04/18 11/04/18 01:06 01:06 06:40 Creatine Kinase 25 L 28 L CK-MB (CK-2) < 0.22 Troponin I < 0.012 NT-Pro-B Natriuret Pep 4750 H 11/04/18 11/04/18 11/04/18 06:40 21:30 21:30 Creatine Kinase 29 L CK-MB (CK-2) < 0.22 0.27 Troponin I 0.026 < 0.012 NT-Pro-B Natriuret Pep Impressions: Chest X-Ray 11/03/18 21:41 IMPRESSION: Cardiomegaly. Lungs are clear copyright 2011 [employer]- All Rights Reserved Assessment & Plan - Diagnosis (1) Anemia requiring transfusions Is this a current diagnosis for this admission?: Yes (2) Acute on chronic combined systolic and diastolic CHF, NYHA class 3 Is this a current diagnosis for this admission?: Yes (3) Anemia of chronic disease Is this a current diagnosis for this admission?: Yes (4) Chronic stable angina Is this a current diagnosis for this admission?: Yes (5) Chronic combined systolic and diastolic CHF (congestive heart failure) Is this a current diagnosis for this admission?: Yes (6) HTN (hypertension) Qualifiers: Hypertension type: essential hypertension Qualified Code(s): I10 - Essential (primary) hypertension Is this a current diagnosis for this admission?: Yes (7) S/P CABG (coronary artery bypass graft) Is this a current diagnosis for this admission?: Yes (8) Diabetes mellitus type 2 in obese Is this a current diagnosis for this admission?: Yes (9) 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 2 diabetes mellitus Qualifiers: Diabetic foot ulcer location: heel Non-pressure ulcer stage: unspecified non-pressure ulcer stage Qualified Code(s): E11.621 - Type 2 diabetes mellitus with foot ulcer; L97.429 - Non-pressure chronic ulcer of left heel and midfoot with unspecified severity Is this a current diagnosis for this admission?: Yes (10) HLD (hyperlipidemia) Qualifiers: Hyperlipidemia type: pure hypercholesterolemia Qualified Code(s): E78.00 - Pure hypercholesterolemia, unspecified Is this a current diagnosis for this admission?: Yes (11) COPD (chronic obstructive pulmonary disease) Qualifiers: COPD type: unspecified COPD Qualified Code(s): J44.9 - Chronic obstructive pulmonary disease, unspecified Is this a current diagnosis for this admission?: Yes (12) Hx of stroke without residual deficits Is this a current diagnosis for this admission?: Yes (13) Chronic use of opiate for therapeutic purpose Is this a current diagnosis for this admission?: Yes (14) Obesity (BMI 30-39.9) Is this a current diagnosis for this admission?: Yes - Time Time Spent with patient: 25-34 minutes Medications reviewed and adjusted accordingly: Yes Anticipated discharge: Home with Homehealth Within: Other - Inpatient Certification Based on my medical assessment, after consideration of the patient's comorbidities, presenting symptoms, or acuity I expect that the services needed warrant INPATIENT care.: Yes I certify that my determination is in accordance with my understanding of Medicare's requirements for reasonable and necessary INPATIENT services [42 CFR 412.3e].: Yes Medical Necessity: Significant Comorbidiites Make Outpatient Treatment Too Risky , Need Close Monitoring Due to Risk of Patient Decompensation, Risk of Complication if Not Cared For in Hospital, Risk of Diagnosis Which Will Require Inpatient Eval/Care/Monitoring Post Hospital Care: D/C Director Report 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 Start on Dulcolax suppository 10 mg x 1 dose. Obtain acute abdominal series.
[2018-11-08] MEDS ORDERED: BISACODYL 10 MG SUPP.RECT PR PRN (14:06)
--- NOTE | 2018-11-08 15:03 | RADIOLOGY REPORT (SQ) ---
EXAM DESCRIPTION: ACUTE ABDOMEN SERIES COMPLETED DATE/TIME: 11/08/2018 2:46 pm REASON FOR STUDY: abdominal pain, constipation. I50.31 ACUTE DIASTOLIC (CONGESTIVE) HEART FAILURE E 10.42 TYPE 1 DIABETES MELLITUS WITH DIABETIC POLYNEUROPATHY E10.44 TYPE 1 DIABETES MELLITUS WITH DI ABETIC AMYOTROPHY COMPARISON: 08/12/2017, 01/21/2015, 12/08/2014 abdominal films Chest films 11/03/2018, 10/11/2018 NUMBER OF VIEWS: Three views. TECHNIQUE: Frontal chest, supine abdomen and upright abdomen radiographic images acquired. LIMITATIONS: None. FINDINGS: CHEST: Minimal left basilar atelectasis. No acute infiltrates, no pleural effusion or pne umothorax. Stable cardiomegaly. Old sternotomy. FREE AIR: None. No abnormal gas collections. BOWEL GAS PATTERN: Nonobstructive pattern. No dilated loops or air fluid levels. Moderate stool thro ughout the colon. CALCIFICATIONS: No suspicious calcifications. HARDWARE: IUD in the uterus. SOFT TISSUES: No gross mass or suggestion of organomegaly. BONES: No acute fracture. No worrisome bone lesions. OTHER: No other significant finding. IMPRESSION: NO RADIOGRAPHIC EVIDENCE FOR ACUTE ABDOMINAL DISEASE. Constipation TECHNICAL DOCUMENTATION: JOB ID: [id number] [employer]- All Rights Reserved Reading location - IP/workstation name: [email or web address]
[2018-11-08] MEDS: ATORVASTATIN CALCIUM 20 MG TABLET PO SCH (22:01)
[2018-11-09] MEDS: SIMETHICONE 80 MG TAB.CHEW PO SCH ×5 (00:53→23:57)
[2018-11-09] MEDS: PANTOPRAZOLE SODIUM 40 MG TABLET.DR PO SCH (05:19)
[2018-11-09] MEDS: GABAPENTIN 100 MG CAPSULE PO SCH ×3 (05:19→22:08)
[2018-11-09] MEDS: INSULIN LISPRO 100 UNIT/ML 3 ML VIAL SUBCUT SCH ×4 (08:51→22:09)
[2018-11-09] MEDS: DOCUSATE SODIUM 100 MG CAPSULE PO SCH (09:29)
[2018-11-09] MEDS: SACUBITRIL/VALSARTAN 49 MG/51 MG TABLET PO SCH ×2 (09:29→22:09)
[2018-11-09] MEDS: RANOLAZINE 500 MG TAB.SR.12H PO SCH ×2 (09:29→22:09)
[2018-11-09] MEDS: AMLODIPINE BESYLATE 10 MG TABLET PO SCH (09:29)
[2018-11-09] MEDS: FAMOTIDINE 20 MG TABLET PO SCH ×2 (09:29→17:10)
[2018-11-09] MEDS: ASCORBIC ACID 500 MG TABLET PO SCH (09:29)
[2018-11-09] MEDS: FERROUS SULFATE 325 MG TABLET PO SCH (09:30)
[2018-11-09] MEDS: FUROSEMIDE 20 MG TABLET PO SCH (09:30)
[2018-11-09] MEDS: INSULIN GLARGINE,HUM.REC.ANLOG 1,000 UNIT/10 ML VIAL SUBCUT SCH ×2 (09:30→17:10)
[2018-11-09] MEDS: APIXABAN 2.5 MG TABLET PO SCH ×2 (09:36→17:10)
--- NOTE | 2018-11-09 12:40 | PDOC PROGRESS REPORT ---
Subjective Progress Note for:: 11/09/18 Subjective:: Patient reported sternal and left sided chest pain. No difficulty with breathing. No abdominal pain, nausea, or vomiting. Tolerating oral feeding. Reason For Visit: ANEMIA WITH NEED FOR TRANSFUSION; ACUTE ON CHRONIC Physical Exam Vital Signs: Temp Pulse Resp BP Pulse Ox 98.1 F 72 16 106/58 L 100 11/09/18 08:09 11/09/18 08:09 11/09/18 08:09 11/09/18 08:09 11/09/18 08:09 Intake & Output 11/08/18 11/09/18 11/10/18 06:59 06:59 06:59 Intake Total 1020 740 Output Total 1050 600 Balance -30 140 Weight 95 kg 93.3 kg Physical Exam: General appearance: PRESENT: no acute distress Head exam: PRESENT: atraumatic, normocephalic Eye exam: PRESENT: conjunctiva pink ABSENT: pallor, scleral icterus Ear exam: PRESENT: normal external ear exam Mouth exam: PRESENT: moist Teeth exam: PRESENT: poor dentition Respiratory exam: PRESENT: clear to auscultation jerrica, decreased breath sounds - at lung bases Cardiovascular exam: PRESENT: RRR. ABSENT: diastolic murmur, rubs, systolic murmur GI/Abdominal exam: PRESENT: normal bowel sounds, soft. ABSENT: distended, guarding, mass, organomegaly, rebound, tenderness Extremities exam: PRESENT: pedal edema - 2+ bilaterally improving. Neurological exam: PRESENT: alert, awake, oriented to person, oriented to place, oriented to time, oriented to situation, CN II-XII grossly intact. ABSENT: motor sensory deficit Psychiatric exam: PRESENT: appropriate affect, normal mood. ABSENT: homicidal ideation, suicidal ideation Skin exam: PRESENT: dry, warm Results Laboratory Results: 11/07/18 05:09 11/07/18 05:09 11/03/18 11/03/18 11/03/18 21:27 21:27 21:27 Creatine Kinase 42 Cancelled CK-MB (CK-2) Troponin I < 0.012 NT-Pro-B Natriuret Pep 4100 H 11/04/18 11/04/18 11/04/18 01:06 01:06 06:40 Creatine Kinase 25 L 28 L CK-MB (CK-2) < 0.22 Troponin I < 0.012 NT-Pro-B Natriuret Pep 4750 H 11/04/18 11/04/18 11/04/18 06:40 21:30 21:30 Creatine Kinase 29 L CK-MB (CK-2) < 0.22 0.27 Troponin I 0.026 < 0.012 NT-Pro-B Natriuret Pep Impressions: Chest X-Ray 11/03/18 21:41 IMPRESSION: Cardiomegaly. Lungs are clear copyright 2011 [employer]- All Rights Reserved Acute Abdomen Series 11/08/18 00:00 IMPRESSION: NO RADIOGRAPHIC EVIDENCE FOR ACUTE ABDOMINAL DISEASE. Constipation Assessment & Plan - Diagnosis (1) Anemia requiring transfusions Is this a current diagnosis for this admission?: Yes (2) Acute on chronic combined systolic and diastolic CHF, NYHA class 3 Is this a current diagnosis for this admission?: Yes (3) Anemia of chronic disease Is this a current diagnosis for this admission?: Yes (4) Chronic stable angina Is this a current diagnosis for this admission?: Yes (5) Chronic combined systolic and diastolic CHF (congestive heart failure) Is this a current diagnosis for this admission?: Yes (6) HTN (hypertension) Qualifiers: Hypertension type: essential hypertension Qualified Code(s): I10 - Essential (primary) hypertension Is this a current diagnosis for this admission?: Yes (7) S/P CABG (coronary artery bypass graft) Is this a current diagnosis for this admission?: Yes (8) Diabetes mellitus type 2 in obese Is this a current diagnosis for this admission?: Yes (9) 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 2 diabetes mellitus Qualifiers: Diabetic foot ulcer location: heel Non-pressure ulcer stage: unspecified non-pressure ulcer stage Qualified Code(s): E11.621 - Type 2 diabetes mellitus with foot ulcer; L97.429 - Non-pressure chronic ulcer of left heel and midfoot with unspecified severity Is this a current diagnosis for this admission?: Yes (10) HLD (hyperlipidemia) Qualifiers: Hyperlipidemia type: pure hypercholesterolemia Qualified Code(s): E78.00 - Pure hypercholesterolemia, unspecified Is this a current diagnosis for this admission?: Yes (11) COPD (chronic obstructive pulmonary disease) Qualifiers: COPD type: unspecified COPD Qualified Code(s): J44.9 - Chronic obstructive pulmonary disease, unspecified Is this a current diagnosis for this admission?: Yes (12) Hx of stroke without residual deficits Is this a current diagnosis for this admission?: Yes (13) Chronic use of opiate for therapeutic purpose Is this a current diagnosis for this admission?: Yes (14) Obesity (BMI 30-39.9) Is this a current diagnosis for this admission?: Yes (15) Constipation due to opioid therapy Is this a current diagnosis for this admission?: Yes Plan: See attending physician orders about care plan. - Time Time Spent with patient: 25-34 minutes Medications reviewed and adjusted accordingly: Yes Anticipated discharge: Home with Homehealth Within: Other - Inpatient Certification Based on my medical assessment, after consideration of the patient's comorbidities, presenting symptoms, or acuity I expect that the services needed warrant INPATIENT care.: Yes I certify that my determination is in accordance with my understanding of Medicare's requirements for reasonable and necessary INPATIENT services [42 CFR 412.3e].: Yes Medical Necessity: Significant Comorbidiites Make Outpatient Treatment Too Risky, Need Close Monitoring Due to Risk of Patient Decompensation, Need For Continuous Telemetry Monitoring, Risk of Complication if Not Cared For in Hospital, Risk of Diagnosis Which Will Require Inpatient Eval/Care/Monitoring Post Hospital Care: D/C Print Washer Documentation - Plan Summary Plan Summary: Start on Amitiza 24 mcg po q12. See attending physician orders about care plan.
[2018-11-09] MEDS: LUBIPROSTONE 24 MCG CAPSULE PO SCH ×2 (13:23→22:08)
[2018-11-09] MEDS: OXYCODONE-ACETAMINOPHEN 5-325 MG TABLET PO PRN (17:09)
[2018-11-09] MEDS: OXYCODONE HCL IR 5 MG TABLET PO PRN (17:10)
[2018-11-09] MEDS: ATORVASTATIN CALCIUM 20 MG TABLET PO SCH (22:08)
[2018-11-09] MEDS: ONDANSETRON HCL INJ/PF 4 MG/2 ML SDV IV PRN (23:57)
[2018-11-10] MEDS: SIMETHICONE 80 MG TAB.CHEW PO SCH ×3 (05:15→17:33)
[2018-11-10] MEDS: PANTOPRAZOLE SODIUM 40 MG TABLET.DR PO SCH (05:15)
[2018-11-10] MEDS: GABAPENTIN 100 MG CAPSULE PO SCH ×3 (05:15→21:49)
[2018-11-10] MEDS: INSULIN LISPRO 100 UNIT/ML 3 ML VIAL SUBCUT SCH ×4 (08:33→21:40)
[2018-11-10] MEDS: FUROSEMIDE 20 MG TABLET PO SCH (08:35)
[2018-11-10] MEDS: FAMOTIDINE 20 MG TABLET PO SCH ×2 (09:35→17:32)
[2018-11-10] MEDS: AMLODIPINE BESYLATE 10 MG TABLET PO SCH (09:35)
[2018-11-10] MEDS: OXYCODONE-ACETAMINOPHEN 5-325 MG TABLET PO PRN ×2 (09:35→21:57)
[2018-11-10] MEDS: SACUBITRIL/VALSARTAN 49 MG/51 MG TABLET PO SCH ×2 (09:35→21:49)
[2018-11-10] MEDS: RANOLAZINE 500 MG TAB.SR.12H PO SCH ×2 (09:35→21:49)
[2018-11-10] MEDS: FERROUS SULFATE 325 MG TABLET PO SCH (09:35)
[2018-11-10] MEDS: ASCORBIC ACID 500 MG TABLET PO SCH (09:35)
[2018-11-10] MEDS: DOCUSATE SODIUM 100 MG CAPSULE PO SCH (09:36)
[2018-11-10] MEDS: OXYCODONE HCL IR 5 MG TABLET PO PRN ×2 (09:36→21:57)
[2018-11-10] MEDS: INSULIN GLARGINE,HUM.REC.ANLOG 1,000 UNIT/10 ML VIAL SUBCUT SCH ×2 (09:38→17:35)
[2018-11-10] MEDS: APIXABAN 2.5 MG TABLET PO SCH ×2 (09:40→17:33)
[2018-11-10] MEDS: LUBIPROSTONE 24 MCG CAPSULE PO SCH ×2 (09:42→21:56)
[2018-11-10] MEDS: ONDANSETRON HCL INJ/PF 4 MG/2 ML SDV IV PRN ×2 (12:27→21:53)
--- NOTE | 2018-11-10 17:41 | PDOC PROGRESS REPORT ---
Subjective Progress Note for:: 11/10/18 Subjective:: Patient denied chest pain or difficulty with breathing. No abdominal pain, nausea, or vomiting. Tolerating oral feeding. Reported generalized weakness and postural dizziness. Reason For Visit: ANEMIA WITH NEED FOR TRANSFUSION; ACUTE ON CHRONIC Physical Exam Vital Signs: Temp Pulse Resp BP Pulse Ox 98.3 F 76 16 127/49 H 93 11/10/18 08:22 11/10/18 14:00 11/10/18 08:22 11/10/18 08:22 11/10/18 08:22 Intake & Output 11/09/18 11/10/18 11/11/18 06:59 06:59 06:59 Intake Total 740 780 Output Total 600 Balance 140 780 Weight 93.3 kg 93.5 kg Physical Exam: General appearance: PRESENT: no acute distress Head exam: PRESENT: atraumatic, normocephalic Eye exam: PRESENT: conjunctiva pink ABSENT: pallor, scleral icterus Ear exam: PRESENT: normal external ear exam Mouth exam: PRESENT: moist Teeth exam: PRESENT: poor dentition Respiratory exam: PRESENT: clear to auscultation jerrica, decreased breath sounds - at lung bases Cardiovascular exam: PRESENT: RRR. ABSENT: diastolic murmur, rubs, systolic murmur GI/Abdominal exam: PRESENT: normal bowel sounds, soft. ABSENT: distended, guarding, mass, organomegaly, rebound, tenderness Extremities exam: PRESENT: pedal edema - 2+ bilaterally improving. Neurological exam: PRESENT: alert, awake, oriented to person, oriented to place, oriented to time, oriented to situation, CN II-XII grossly intact. ABSENT: motor sensory deficit Psychiatric exam: PRESENT: appropriate affect, normal mood. ABSENT: homicidal ideation, suicidal ideation Skin exam: PRESENT: dry, warm Results Laboratory Results: 11/07/18 05:09 11/07/18 05:09 11/03/18 11/03/18 11/03/18 21:27 21:27 21:27 Creatine Kinase 42 Cancelled CK-MB (CK-2) Troponin I < 0.012 NT-Pro-B Natriuret Pep 4100 H 11/04/18 11/04/18 11/04/18 01:06 01:06 06:40 Creatine Kinase 25 L 28 L CK-MB (CK-2) < 0.22 Troponin I < 0.012 NT-Pro-B Natriuret Pep 4750 H 11/04/18 11/04/18 11/04/18 06:40 21:30 21:30 Creatine Kinase 29 L CK-MB (CK-2) < 0.22 0.27 Troponin I 0.026 < 0.012 NT-Pro-B Natriuret Pep Impressions: Chest X-Ray 11/03/18 21:41 IMPRESSION: Cardiomegaly. Lungs are clear copyright 2011 [employer]- All Rights Reserved Acute Abdomen Series 11/08/18 00:00 IMPRESSION: NO RADIOGRAPHIC EVIDENCE FOR ACUTE ABDOMINAL DISEASE. Constipation Assessment & Plan - Diagnosis (1) Anemia requiring transfusions Is this a current diagnosis for this admission?: Yes (2) Acute on chronic combined systolic and diastolic CHF, NYHA class 3 Is this a current diagnosis for this admission?: Yes (3) Anemia of chronic disease Is this a current diagnosis for this admission?: Yes (4) Chronic stable angina Is this a current diagnosis for this admission?: Yes (5) Chronic combined systolic and diastolic CHF (congestive heart failure) Is this a current diagnosis for this admission?: Yes (6) HTN (hypertension) Qualifiers: Hypertension type: essential hypertension Qualified Code(s): I10 - Essential (primary) hypertension Is this a current diagnosis for this admission?: Yes (7) S/P CABG (coronary artery bypass graft) Is this a current diagnosis for this admission?: Yes (8) Diabetes mellitus type 2 in obese Is this a current diagnosis for this admission?: Yes (9) 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 2 diabetes mellitus Qualifiers: Diabetic foot ulcer location: heel Non-pressure ulcer stage: unspecified non-pressure ulcer stage Qualified Code(s): E11.621 - Type 2 diabetes mellitus with foot ulcer; L97.429 - Non-pressure chronic ulcer of left heel and midfoot with unspecified severity Is this a current diagnosis for this admission?: Yes (10) HLD (hyperlipidemia) Qualifiers: Hyperlipidemia type: pure hypercholesterolemia Qualified Code(s): E78.00 - Pure hypercholesterolemia, unspecified Is this a current diagnosis for this admission?: Yes (11) COPD (chronic obstructive pulmonary disease) Qualifiers: COPD type: unspecified COPD Qualified Code(s): J44.9 - Chronic obstructive pulmonary disease, unspecified Is this a current diagnosis for this admission?: Yes (12) Hx of stroke without residual deficits Is this a current diagnosis for this admission?: Yes (13) Chronic use of opiate for therapeutic purpose Is this a current diagnosis for this admission?: Yes (14) Obesity (BMI 30-39.9) Is this a current diagnosis for this admission?: Yes (15) Constipation due to opioid therapy Is this a current diagnosis for this admission?: Yes - Time Time Spent with patient: 25-34 minutes Medications reviewed and adjusted accordingly: Yes Anticipated discharge: Home with Homehealth Within: Other - Inpatient Certification Based on my medical assessment, after consideration of the patient's comorbidities, presenting symptoms, or acuity I expect that the services needed warrant INPATIENT care.: Yes I certify that my determination is in accordance with my understanding of Medicare's requirements for reasonable and necessary INPATIENT services [42 CFR 412.3e].: Yes Medical Necessity: Significant Comorbidiites Make Outpatient Treatment Too Risky, Need Close Monitoring Due to Risk of Patient Decompensation, Need For Continuous Telemetry Monitoring, Risk of Complication if Not Cared For in Hospital, Risk of Diagnosis Which Will Require Inpatient Eval/Care/Monitoring Post Hospital Care: D/C General Manager Food 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, She has not getting her second dose of Lantus due to concern about hypoglycemia but her eating habit is different from home intake.
[2018-11-10] MEDS: ATORVASTATIN CALCIUM 20 MG TABLET PO SCH (21:49)
[2018-11-11] MEDS: SIMETHICONE 80 MG TAB.CHEW PO SCH ×4 (00:07→17:34)
[2018-11-11] MEDS: GABAPENTIN 100 MG CAPSULE PO SCH ×3 (05:51→21:38)
[2018-11-11] MEDS: PANTOPRAZOLE SODIUM 40 MG TABLET.DR PO SCH (05:51)
[2018-11-11] MEDS: INSULIN LISPRO 100 UNIT/ML 3 ML VIAL SUBCUT SCH ×4 (09:53→21:42)
[2018-11-11] MEDS: FUROSEMIDE 20 MG TABLET PO SCH (10:12)
[2018-11-11] MEDS: ONDANSETRON HCL INJ/PF 4 MG/2 ML SDV IV PRN (10:12)
[2018-11-11] MEDS: OXYCODONE HCL IR 5 MG TABLET PO PRN ×2 (10:13→22:06)
[2018-11-11] MEDS: RANOLAZINE 500 MG TAB.SR.12H PO SCH ×2 (10:13→21:38)
[2018-11-11] MEDS: AMLODIPINE BESYLATE 5 MG TABLET PO SCH (10:13)
[2018-11-11] MEDS: SACUBITRIL/VALSARTAN 49 MG/51 MG TABLET PO SCH ×2 (10:13→21:38)
[2018-11-11] MEDS: FAMOTIDINE 20 MG TABLET PO SCH ×2 (10:13→17:29)
[2018-11-11] MEDS: ASCORBIC ACID 500 MG TABLET PO SCH (10:14)
[2018-11-11] MEDS: FERROUS SULFATE 325 MG TABLET PO SCH (10:14)
[2018-11-11] MEDS: OXYCODONE-ACETAMINOPHEN 5-325 MG TABLET PO PRN ×2 (10:14→22:06)
[2018-11-11] MEDS: DOCUSATE SODIUM 100 MG CAPSULE PO SCH (10:14)
[2018-11-11] MEDS: INSULIN GLARGINE,HUM.REC.ANLOG 1,000 UNIT/10 ML VIAL SUBCUT SCH ×2 (10:16→17:29)
[2018-11-11] MEDS: APIXABAN 2.5 MG TABLET PO SCH ×2 (10:20→17:34)
[2018-11-11] MEDS: LUBIPROSTONE 24 MCG CAPSULE PO SCH ×2 (10:24→21:38)
--- NOTE | 2018-11-11 14:37 | PDOC PROGRESS REPORT ---
Subjective Progress Note for:: 11/11/18 Subjective:: Patient reported less dizziness. No chest pain or difficulty with breathing. No abdominal pain, nausea, or vomiting. Tolerating oral feeding. Reason For Visit: ANEMIA WITH NEED FOR TRANSFUSION; ACUTE ON CHRONIC Physical Exam Vital Signs: Temp Pulse Resp BP Pulse Ox 97.9 F 66 16 114/54 L 96 11/11/18 07:12 11/11/18 07:12 11/11/18 07:12 11/11/18 07:12 11/11/18 07:12 Intake & Output 11/10/18 11/11/18 11/12/18 06:59 06:59 06:59 Intake Total 780 510 Output Total 500 Balance 780 10 Weight 93.5 kg 93.6 kg Physical Exam: General appearance: PRESENT: no acute distress Head exam: PRESENT: atraumatic, normocephalic Eye exam: PRESENT: conjunctiva pink ABSENT: pallor, scleral icterus Ear exam: PRESENT: normal external ear exam Mouth exam: PRESENT: moist Teeth exam: PRESENT: poor dentition Respiratory exam: PRESENT: clear to auscultation jerrica, decreased breath sounds - at lung bases Cardiovascular exam: PRESENT: RRR. ABSENT: diastolic murmur, rubs, systolic murmur GI/Abdominal exam: PRESENT: normal bowel sounds, soft. ABSENT: distended, guarding, mass, organomegaly, rebound, tenderness Extremities exam: PRESENT: pedal edema - improving. Neurological exam: PRESENT: alert, awake, oriented to person, oriented to place, oriented to time, oriented to situation, CN II-XII grossly intact. ABSENT: mot or sensory deficit Psychiatric exam: PRESENT: appropriate affect, normal mood. ABSENT: homicidal ideation, suicidal ideation Skin exam: PRESENT: dry, warm Results Laboratory Results: 11/07/18 05:09 11/07/18 05:09 11/03/18 11/03/18 11/03/18 21:27 21:27 21:27 Creatine Kinase 42 Cancelled CK-MB (CK-2) Troponin I < 0.012 NT-Pro-B Natriuret Pep 4100 H 11/04/18 11/04/18 11/04/18 01:06 01:06 06:40 Creatine Kinase 25 L 28 L CK-MB (CK-2) < 0.22 Troponin I < 0.012 NT-Pro-B Natriuret Pep 4750 H 11/04/18 11/04/18 11/04/18 06:40 21:30 21:30 Creatine Kinase 29 L CK-MB (CK-2) < 0.22 0.27 Troponin I 0.026 < 0.012 NT-Pro-B Natriuret Pep Impressions: Chest X-Ray 11/03/18 21:41 IMPRESSION: Cardiomegaly. Lungs are clear copyright 2011 [employer]- All Rights Reserved Acute Abdomen Series 11/08/18 00:00 IMPRESSION: NO RADIOGRAPHIC EVIDENCE FOR ACUTE ABDOMINAL DISEASE. Constipation Assessment & Plan - Diagnosis (1) Anemia requiring transfusions Is this a current diagnosis for this admission?: Yes (2) Acute on chronic combined systolic and diastolic CHF, NYHA class 3 Is this a current diagnosis for this admission?: Yes (3) Anemia of chronic disease Is this a current diagnosis for this admission?: Yes (4) Chronic stable angina Is this a current diagnosis for this admission?: Yes (5) Chronic combined systolic and diastolic CHF (congestive heart failure) Is this a current diagnosis for this admission?: Yes (6) HTN (hypertension) Qualifiers: Hypertension type: essential hypertension Qualified Code(s): I10 - Essential (primary) hypertension Is this a current diagnosis for this admission?: Yes (7) S/P CABG (coronary artery bypass graft) Is this a current diagnosis for this admission?: Yes (8) Diabetes mellitus type 2 in obese Is this a current diagnosis for this admission?: Yes (9) 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 2 diabetes mellitus Qualifiers: Diabetic foot ulcer location: heel Non-pressure ulcer stage: unspecified non-pressure ulcer stage Qualified Code(s): E11.621 - Type 2 diabetes mellitus with foot ulcer; L97.429 - Non-pressure chronic ulcer of left heel and midfoot with unspecified severity Is this a current diagnosis for this admission?: Yes (10) HLD (hyperlipidemia) Qualifiers: Hyperlipidemia type: pure hypercholesterolemia Qualified Code(s): E78.00 - Pure hypercholesterolemia, unspecified Is this a current diagnosis for this admission?: Yes (11) COPD (chronic obstructive pulmonary disease) Qualifiers: COPD type: unspecified COPD Qualified Code(s): J44.9 - Chronic obstructive pulmonary disease, unspecified Is this a current diagnosis for this admission?: Yes (12) Hx of stroke without residual deficits Is this a current diagnosis for this admission?: Yes (13) Chronic use of opiate for therapeutic purpose Is this a current diagnosis for this admission?: Yes (14) Obesity (BMI 30-39.9) Is this a current diagnosis for this admission?: Yes (15) Constipation due to opioid therapy Is this a current diagnosis for this admission?: Yes - Time Time Spent with patient: 25-34 minutes Medications reviewed and adjusted accordingly: Yes Anticipated discharge: Home with Homehealth Within: Other - Inpatient Certification Based on my medical assessment, after consideration of the patient's comorbidities, presenting symptoms, or acuity I expect that the services needed warrant INPATIENT care.: Yes I certify that my determination is in accordance with my understanding of Medicare's requirements for reasonable and necessary INPATIENT services [42 CFR 412.3e].: Yes Medical Necessity: Significant Comorbidiites Make Outpatient Treatment Too Risky, Need Close Monitoring Due to Risk of Patient Decompensation, Need For Continuous Telemetry Monitoring, Risk of Complication if Not Cared For in Hospital, Risk of Diagnosis Which Will Require Inpatient Eval/Care/Monitoring Post Hospital Care: D/C Power Tool Repairer 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 Obtain CBC with diff and CMP.
[2018-11-11] MEDS: ATORVASTATIN CALCIUM 20 MG TABLET PO SCH (21:38)
[2018-11-12] MEDS: SIMETHICONE 80 MG TAB.CHEW PO SCH ×5 (02:03→23:27)
[2018-11-12] MEDS: PANTOPRAZOLE SODIUM 40 MG TABLET.DR PO SCH (07:25)
[2018-11-12] MEDS: GABAPENTIN 100 MG CAPSULE PO SCH ×3 (07:26→21:27)
--- NOTE | 2018-11-12 08:15 | PDOC PROGRESS REPORT ---
Subjective Progress Note for:: 11/12/18 Subjective:: Patient p.o intake is poor due to food preference and poor selection. She continue to demonstrate hypoglycemia due to poor intake with administration of scheduled Lantus Insulin. No abdominal pain, nausea, or vomiting. No chest pain or difficulty with breathing. Reason For Visit: ANEMIA WITH NEED FOR TRANSFUSION; ACUTE ON CHRONIC COMBINED CHF Physical Exam Vital Signs: Temp Pulse Resp BP Pulse Ox 97.3 F 64 18 111/50 L 89 L 11/12/18 03:49 11/12/18 07:00 11/11/18 23:37 11/12/18 03:49 11/12/18 03:49 Intake & Output 11/11/18 11/12/18 11/13/18 06:59 06:59 06:59 Intake Total 510 620 Output Total 500 1200 Balance 10 -580 Weight 93.6 kg 91.6 kg Physical Exam: General appearance: PRESENT: no acute distress Head exam: PRESENT: atraumatic, normocephalic Eye exam: PRESENT: conjunctiva pink ABSENT: pallor, scleral icterus Ear exam: PRESENT: normal external ear exam Mouth exam: PRESENT: moist Teeth exam: PRESENT: poor dentition Respiratory exam: PRESENT: clear to auscultation jerrica, decreased breath sounds - at lung bases Cardiovascular exam: PRESENT: RRR. ABSENT: diastolic murmur, rubs, systolic murmur GI/Abdominal exam: PRESENT: normal bowel sounds, soft. ABSENT: distended, guarding, mass, organomegaly, rebound, tenderness Extremities exam: PRESENT: pedal edema - improving. Neurological exam: PRESENT: alert, awake, oriented to person, oriented to place, oriented to time, oriented to situation, CN II-XII grossly intact. ABSENT: motor sensory deficit Psychiatric exam: PRESENT: appropriate affect, normal mood. ABSENT: homicidal ideation, suicidal ideation Skin exam: PRESENT: dry, warm Results Laboratory Results: 11/07/18 05:09 11/07/18 05:09 11/03/18 11/03/18 11/03/18 21:27 21:27 21:27 Creatine Kinase 42 Cancelled CK-MB (CK-2) Troponin I < 0.012 NT-Pro-B Natriuret Pep 4100 H 11/04/18 11/04/18 11/04/18 01:06 01:06 06:40 Creatine Kinase 25 L 28 L CK-MB (CK-2) < 0.22 Troponin I < 0.012 NT-Pro-B Natriuret Pep 4750 H 11/04/18 11/04/18 11/04/18 06:40 21:30 21:30 Creatine Kinase 29 L CK-MB (CK-2) < 0.22 0.27 Troponin I 0.026 < 0.012 NT-Pro-B Natriuret Pep Impressions: Chest X-Ray 11/03/18 21:41 IMPRESSION: Cardiomegaly. Lungs are clear copyright 2010 [employer]- All Rights Reserved Acute Abdomen Series 11/08/18 00:00 IMPRESSION: NO RADIOGRAPHIC EVIDENCE FOR ACUTE ABDOMINAL DISEASE. Constipation Assessment & Plan - Diagnosis (1) Anemia requiring transfusions Is this a current diagnosis for this admission?: Yes (2) Acute on chronic combined systolic and diastolic CHF, NYHA class 3 Is this a current diagnosis for this admission?: Yes (3) Anemia of chronic disease Is this a current diagnosis for this admission?: Yes (4) Chronic stable angina Is this a current diagnosis for this admission?: Yes (5) Chronic combined systolic and diastolic CHF (congestive heart failure) Is this a current diagnosis for this admission?: Yes (6) HTN (hypertension) Qualifiers: Hypertension type: essential hypertension Qualified Code(s): I10 - Essential (primary) hypertension Is this a current diagnosis for this admission?: Yes (7) S/P CABG (coronary artery bypass graft) Is this a current diagnosis for this admission?: Yes (8) Diabetes mellitus type 2 in obese Is this a current diagnosis for this admission?: Yes (9) 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 2 diabetes mellitus Qualifiers: Diabetic foot ulcer location: heel Non-pressure ulcer stage: unspecified non-pressure ulcer stage Qualified Code(s): E11.621 - Type 2 diabetes mellitus with foot ulcer; L97.429 - Non-pressure chronic ulcer of left heel and midfoot with unspecified severity Is this a current diagnosis for this admission?: Yes (10) HLD (hyperlipidemia) Qualifiers: Hyperlipidemia type: pure hypercholesterolemia Qualified Code(s): E78.00 - Pure hypercholesterolemia, unspecified Is this a current diagnosis for this admission?: Yes (11) COPD (chronic obstructive pulmonary disease) Qualifiers: COPD type: unspecified COPD Qualified Code(s): J44.9 - Chronic obstructive pulmonary disease, unspecified Is this a current diagnosis for this admission?: Yes (12) Hx of stroke without residual deficits Is this a current diagnosis for this admission?: Yes (13) Chronic use of opiate for therapeutic purpose Is this a current diagnosis for this admission?: Yes (14) Obesity (BMI 30-39.9) Is this a current diagnosis for this admission?: Yes (15) Constipation due to opioid therapy Is this a current diagnosis for this admission?: Yes - Time Time Spent with patient: 25-34 minutes Medications reviewed and adjusted accordingly: Yes Anticipated discharge: Home with Homehealth Within: Other - Inpatient Certification Based on my medical assessment, after consideration of the patient's comorbidities, presenting symptoms, or acuity I expect that the services needed warrant INPATIENT care.: Yes I certify that my determination is in accordance with my understanding of Medicare's requirements for reasonable and necessary INPATIENT services [42 CFR 412.3e].: Yes Medical Necessity: Significant Comorbidiites Make Outpatient Treatment Too Risky, Need Close Monitoring Due to Risk of Patient Decompensation, Need For Continuous Telemetry Monitoring, Risk of Complication if Not Cared For in Hospital, Risk of Diagnosis Which Will Require Inpatient Eval/Care/Monitoring Post Hospital Care: D/C Lithographic Retoucher Apprentice Documentation - Plan Summary Plan Summary: D/C Lantus Insulin. Maintain on Humalog insulin sliding scale coverage. Maintain on all other current medication management. Request PT evaluation.
[2018-11-12] MEDS: INSULIN LISPRO 100 UNIT/ML 3 ML VIAL SUBCUT SCH ×4 (08:34→21:24)
[2018-11-12] MEDS: FERROUS SULFATE 325 MG TABLET PO SCH (09:03)
[2018-11-12] MEDS: APIXABAN 2.5 MG TABLET PO SCH ×2 (09:03→17:03)
[2018-11-12] MEDS: DOCUSATE SODIUM 100 MG CAPSULE PO SCH (09:03)
[2018-11-12] MEDS: FUROSEMIDE 20 MG TABLET PO SCH (09:03)
[2018-11-12] MEDS: AMLODIPINE BESYLATE 5 MG TABLET PO SCH (09:03)
[2018-11-12] MEDS: LUBIPROSTONE 24 MCG CAPSULE PO SCH ×2 (09:03→21:28)
[2018-11-12] MEDS: SACUBITRIL/VALSARTAN 49 MG/51 MG TABLET PO SCH ×2 (09:03→21:28)
[2018-11-12] MEDS: RANOLAZINE 500 MG TAB.SR.12H PO SCH ×2 (09:04→21:28)
[2018-11-12] MEDS: ASCORBIC ACID 500 MG TABLET PO SCH (09:04)
[2018-11-12] MEDS: FAMOTIDINE 20 MG TABLET PO SCH ×2 (09:04→17:03)
[2018-11-12] MEDS: ATORVASTATIN CALCIUM 20 MG TABLET PO SCH (21:27)
[2018-11-12] MEDS: OXYCODONE-ACETAMINOPHEN 5-325 MG TABLET PO PRN (21:34)
[2018-11-12] MEDS: OXYCODONE HCL IR 5 MG TABLET PO PRN (21:34)
[2018-11-13] MEDS: GABAPENTIN 100 MG CAPSULE PO SCH ×3 (05:25→22:20)
[2018-11-13] MEDS: SIMETHICONE 80 MG TAB.CHEW PO SCH ×4 (05:25→23:40)
[2018-11-13] MEDS: PANTOPRAZOLE SODIUM 40 MG TABLET.DR PO SCH (05:25)
[2018-11-13] MEDS: OXYCODONE HCL IR 5 MG TABLET PO PRN ×2 (08:02→15:49)
[2018-11-13] MEDS: FUROSEMIDE 20 MG TABLET PO SCH (08:03)
[2018-11-13] MEDS: OXYCODONE-ACETAMINOPHEN 5-325 MG TABLET PO PRN ×2 (08:03→15:48)
[2018-11-13] MEDS: INSULIN LISPRO 100 UNIT/ML 3 ML VIAL SUBCUT SCH ×4 (08:13→22:19)
[2018-11-13] MEDS: RANOLAZINE 500 MG TAB.SR.12H PO SCH ×2 (10:27→22:20)
[2018-11-13] MEDS: DOCUSATE SODIUM 100 MG CAPSULE PO SCH (11:04)
[2018-11-13] MEDS: LUBIPROSTONE 24 MCG CAPSULE PO SCH ×2 (11:04→22:20)
[2018-11-13] MEDS: APIXABAN 2.5 MG TABLET PO SCH ×2 (11:04→17:32)
[2018-11-13] MEDS: SACUBITRIL/VALSARTAN 49 MG/51 MG TABLET PO SCH ×2 (11:05→22:20)
[2018-11-13] MEDS: FERROUS SULFATE 325 MG TABLET PO SCH (11:05)
[2018-11-13] MEDS: AMLODIPINE BESYLATE 5 MG TABLET PO SCH (11:05)
[2018-11-13] MEDS: FAMOTIDINE 20 MG TABLET PO SCH ×2 (11:06→17:33)
[2018-11-13] MEDS: ASCORBIC ACID 500 MG TABLET PO SCH (11:06)
[2018-11-13] MEDS: ONDANSETRON HCL INJ/PF 4 MG/2 ML SDV IV PRN ×2 (12:09→23:40)
--- NOTE | 2018-11-13 17:58 | PDOC PROGRESS REPORT ---
Subjective Progress Note for:: 11/13/18 Subjective:: Patient denied abdominal pain, nausea, or vomiting. No chest pain or difficulty with breathing. No fever or chills. Reason For Visit: ANEMIA WITH NEED FOR TRANSFUSION; ACUTE ON CHRONIC Physical Exam Vital Signs: Temp Pulse Resp BP Pulse Ox 98.1 F 89 20 123/56 L 95 11/13/18 06:58 11/13/18 14:00 11/13/18 06:58 11/13/18 06:58 11/13/18 06:58 Intake & Output 11/12/18 11/13/18 11/14/18 06:59 06:59 06:59 Intake Total 620 976 720 Output Total 1200 1050 300 Balance -580 -74 420 Weight 91.6 kg 91.8 kg Physical Exam: General appearance: PRESENT: no acute distress Head exam: PRESENT: atraumatic, normocephalic Eye exam: PRESENT: conjunctiva pink ABSENT: pallor, scleral icterus Ear exam: PRESENT: normal external ear exam Mouth exam: PRESENT: moist Teeth exam: PRESENT: poor dentition Respiratory exam: PRESENT: clear to auscultation jerrica, decreased breath sounds - at lung bases Cardiovascular exam: PRESENT: RRR. ABSENT: diastolic murmur, rubs, systolic murmur GI/Abdominal exam: PRESENT: normal bowel sounds, soft. ABSENT: distended, guarding, mass, organomegaly, rebound, tenderness Extremities exam: PRESENT: pedal edema - improving. Neurological exam: PRESENT: alert, awake, oriented to person, oriented to place, oriented to time, oriented to situation, CN II-XII grossly intact. ABSENT: motor sensory deficit Psychiatric exam: PRESENT: appropriate affect, normal mood. ABSENT: homicidal ideation, suicidal ideation Skin exam: PRESENT: dry, warm Results Laboratory Results: 11/07/18 05:09 11/07/18 05:09 11/03/18 11/03/18 11/03/18 21:27 21:27 21:27 Creatine Kinase 42 Cancelled CK-MB (CK-2) Troponin I < 0.012 NT-Pro-B Natriuret Pep 4100 H 11/04/18 11/04/18 11/04/18 01:06 01:06 06:40 Creatine Kinase 25 L 28 L CK-MB (CK-2) < 0.22 Troponin I < 0.012 NT-Pro-B Natriuret Pep 4750 H 11/04/18 11/04/18 11/04/18 06:40 21:30 21:30 Creatine Kinase 29 L CK-MB (CK-2) < 0.22 0.27 Troponin I 0.026 < 0.012 NT-Pro-B Natriuret Pep Impressions: Chest X-Ray 11/03/18 21:41 IMPRESSION: Cardiomegaly. Lungs are clear copyright 2011 [employer]- All Rights Reserved Acute Abdomen Series 11/08/18 00:00 IMPRESSION: NO RADIOGRAPHIC EVIDENCE FOR ACUTE ABDOMINAL DISEASE. Constipation Assessment & Plan - Diagnosis (1) Anemia requiring transfusions Is this a current diagnosis for this admission?: Yes (2) Acute on chronic combined systolic and diastolic CHF, NYHA class 3 Is this a current diagnosis for this admission?: Yes (3) Anemia of chronic disease Is this a current diagnosis for this admission?: Yes (4) Chronic stable angina Is this a current diagnosis for this admission?: Yes (5) Chronic combined systolic and diastolic CHF (congestive heart failure) Is this a current diagnosis for this admission?: Yes (6) HTN (hypertension) Qualifiers: Hypertension type: essential hypertension Qualified Code(s): I10 - Essential (primary) hypertension Is this a current diagnosis for this admission?: Yes (7) S/P CABG (coronary artery bypass graft) Is this a current diagnosis for this admission?: Yes (8) Diabetes mellitus type 2 in obese Is this a current diagnosis for this admission?: Yes (9) 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 2 diabetes mellitus Qualifiers: Diabetic foot ulcer location: heel Non-pressure ulcer stage: unspecified non-pressure ulcer stage Qualified Code(s): E11.621 - Type 2 diabetes mellitus with foot ulcer; L97.429 - Non-pressure chronic ulcer of left heel and midfoot with unspecified severity Is this a current diagnosis for this admission?: Yes (10) HLD (hyperlipidemia) Qualifiers: Hyperlipidemia type: pure hypercholesterolemia Qualified Code(s): E78.00 - Pure hypercholesterolemia, unspecified Is this a current diagnosis for this admission?: Yes (11) COPD (chronic obstructive pulmonary disease) Qualifiers: COPD type: unspecified COPD Qualified Code(s): J44.9 - Chronic obstructive pulmonary disease, unspecified Is this a current diagnosis for this admission?: Yes (12) Hx of stroke without residual deficits Is this a current diagnosis for this admission?: Yes (13) Chronic use of opiate for therapeutic purpose Is this a current diagnosis for this admission?: Yes (14) Obesity (BMI 30-39.9) Is this a current diagnosis for this admission?: Yes (15) Constipation due to opioid therapy Is this a current diagnosis for this admission?: Yes - Time Time Spent with patient: 25-34 minutes Medications reviewed and adjusted accordingly: Yes Anticipated discharge: Home with Homehealth Within: Other - Inpatient Certification Based on my medical assessment, after consideration of the patient's comorbidities, presenting symptoms, or acuity I expect that the services needed warrant INPATIENT care.: Yes I certify that my determination is in accordance with my understanding of Medicare's requirements for reasonable and necessary INPATIENT services [42 CFR 412.3e].: Yes Medical Necessity: Significant Comorbidiites Make Outpatient Treatment Too Risky, Need Close Monitoring Due to Risk of Patient Decompensation, Need For Continuous Telemetry Monitoring, Need for Pain Control, Risk of Complication if Not Cared For in Hospital, Risk of Diagnosis Which Will Require Inpatient Eval/Care/Monitoring Post Hospital Care: D/C Banking Teacher 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 Obtain CBC with diff, CMP.
[2018-11-13 18:47] LABS: ABSOLUTE EOSINOPHILS # (AUTO) 0.1 10^3/uL (0.0-0.6); ABSOLUTE LYMPHOCYTES (AUTO) 1.8 10^3/uL (0.5-4.7); ABSOLUTE MONOCYTES (AUTO) 0.9 10^3/uL (0.1-1.4); ABSOLUTE NEUT (AUTO) 6.3 10^3/uL (1.7-8.2); BASOPHILS % (AUTO) 0.5 % (0-2); EOSINOPHILS % (AUTO) 1.5 % (0-6); HEMATOCRIT 36.1 % (36.0-47.0); HEMOGLOBIN 11.7 g/dL (12.0-15.5); LYMPHOCYTES % (AUTO) 19.5 % (13-45); MEAN CORPUSCULAR HEMOGLOBIN 29.1 pg (27.0-33.4); MEAN CORPUSCULAR HGB CONC 32.3 g/dL (32.0-36.0); MEAN CORPUSCULAR VOLUME 90 fl (80-97); MONOCYTES % (AUTO) 9.6 % (3-13); PLATELET COUNT 314 10^3/uL (150-450); RED BLOOD COUNT 4.01 10^6/uL (3.72-5.28); RED CELL DISTRIBUTION WIDTH 16.8 % (11.5-14.0); SEGMENTED NEUTROPHILS % (AUTO) 68.9 % (42-78); TOTAL CELLS COUNTED % (AUTO) 100 %; WHITE BLOOD COUNT 9.2 10^3/uL (4.0-10.5)
[2018-11-13 19:05] LABS: ALANINE AMINOTRANSFERASE 13 U/L (9-52); ALBUMIN 3.7 g/dL (3.5-5.0); ALKALINE PHOSPHATASE 293 U/L (38-126); ANION GAP 9 (5-19); ASPARTATE AMINO TRANSFERASE 27 U/L (14-36); BILIRUBIN,DIRECT 0.5 mg/dL (0.0-0.4); BILIRUBIN,TOTAL 0.8 mg/dL (0.2-1.3); BLOOD UREA NITROGEN 27 mg/dL (7-20); CALCIUM 9.5 mg/dL (8.4-10.2); CARBON DIOXIDE 28 mmol/L (22-30); CHLORIDE 103 mmol/L (98-107); GLUCOSE 160 mg/dL (75-110); POTASSIUM 5.5 mmol/L (3.6-5.0); SODIUM 140.4 mmol/L (137-145); TOTAL PROTEIN 8.7 g/dL (6.3-8.2)
[2018-11-13] MEDS: ATORVASTATIN CALCIUM 20 MG TABLET PO SCH (22:20)
[2018-11-14] MEDS: GABAPENTIN 100 MG CAPSULE PO SCH ×3 (06:00→21:49)
[2018-11-14] MEDS: PANTOPRAZOLE SODIUM 40 MG TABLET.DR PO SCH (06:01)
[2018-11-14] MEDS: SIMETHICONE 80 MG TAB.CHEW PO SCH ×4 (06:01→23:43)
--- NOTE | 2018-11-14 07:59 | PDOC PROGRESS REPORT ---
Subjective Progress Note for:: 11/14/18 Subjective:: Patient denied abdominal pain, nausea, or vomiting. No chest pain or difficulty with breathing. No fever or chills. Reason For Visit: ANEMIA WITH NEED FOR TRANSFUSION; ACUTE ON CHRONIC Physical Exam Vital Signs: Temp Pulse Resp BP Pulse Ox 98.3 F 80 16 125/54 L 90 L 11/14/18 07:36 11/14/18 07:36 11/14/18 07:36 11/14/18 07:36 11/14/18 07:36 Intake & Output 11/13/18 11/14/18 11/15/18 06:59 06:59 06:59 Intake Total 976 1300 Output Total 1050 1200 Balance -74 100 Weight 91.8 kg 91.7 kg Physical Exam: General appearance: PRESENT: no acute distress Head exam: PRESENT: atraumatic, normocephalic Eye exam: PRESENT: conjunctiva pink ABSENT: pallor, scleral icterus Ear exam: PRESENT: normal external ear exam Mouth exam: PRESENT: moist Teeth exam: PRESENT: poor dentition Respiratory exam: PRESENT: clear to auscultation jerrica, decreased breath sounds - at lung bases Cardiovascular exam: PRESENT: RRR. ABSENT: diastolic murmur, rubs, systolic murmur GI/Abdominal exam: PRESENT: normal bowel sounds, soft. ABSENT: distended, guarding, mass, organomegaly, rebound, tenderness Extremities exam: PRESENT: pedal edema - improving. Neurological exam: PRESENT: alert, awake, oriented to person, oriented to place, oriented to time, oriented to situation, CN II-XII grossly intact. ABSENT: motor sensory deficit Psychiatric exam: PRESENT: appropriate affect, normal mood. ABSENT: homicidal ideation, suicidal ideation Skin exam: PRESENT: dry, warm Results Laboratory Results: 11/13/18 18:35 11/13/18 18:35 11/13/18 11/13/18 18:35 18:35 WBC 9.2 RBC 4.01 Hgb 11.7 L Hct 36.1 MCV 90 MCH 29.1 MCHC 32.3 RDW 16.8 H Plt Count 314 Seg Neutrophils % 68.9 Lymphocytes % 19.5 Monocytes % 9.6 Eosinophils % 1.5 Basophils % 0.5 Absolute Neutrophils 6.3 Absolute Lymphocytes 1.8 Absolute Monocytes 0.9 Absolute Eosinophils 0.1 Absolute Basophils 0.0 Sodium 140.4 Potassium 5.5 H Chloride 103 Carbon Dioxide 28 Anion Gap 9 BUN 27 H Creatinine 1.35 H Est GFR ( Amer) 48 L Est GFR (Non-Af Amer) 39 L Glucose 160 H Calcium 9.5 Total Bilirubin 0.8 AST 27 ALT 13 Alkaline Phosphatase 293 H Total Protein 8.7 H Albumin 3.7 11/03/18 11/03/18 11/03/18 21:27 21:27 21:27 Creatine Kinase 42 Cancelled CK-MB (CK-2) Troponin I < 0.012 NT-Pro-B Natriuret Pep 4100 H 11/04/18 11/04/18 11/04/18 01:06 01:06 06:40 Creatine Kinase 25 L 28 L CK-MB (CK-2) < 0.22 Troponin I < 0.012 NT-Pro-B Natriuret Pep 4750 H 11/04/18 11/04/18 11/04/18 06:40 21:30 21:30 Creatine Kinase 29 L CK-MB (CK-2) < 0.22 0.27 Troponin I 0.026 < 0.012 NT-Pro-B Natriuret Pep Impressions: Chest X-Ray 11/03/18 21:41 IMPRESSION: Cardiomegaly. Lungs are clear copyright 2011 [employer]- All Rights Reserved Acute Abdomen Series 11/08/18 00:00 IMPRESSION: NO RADIOGRAPHIC EVIDENCE FOR ACUTE ABDOMINAL DISEASE. Constipation Assessment & Plan - Diagnosis (1) Anemia requiring transfusions Is this a current diagnosis for this admission?: Yes (2) Acute on chronic combined systolic and diastolic CHF, NYHA class 3 Is this a current diagnosis for this admission?: Yes (3) Anemia of chronic disease Is this a current diagnosis for this admission?: Yes (4) Chronic stable angina Is this a current diagnosis for this admission?: Yes (5) Chronic combined systolic and diastolic CHF (congestive heart failure) Is this a current diagnosis for this admission?: Yes (6) HTN (hypertension) Qualifiers: Hypertension type: essential hypertension Qualified Code(s): I10 - Essential (primary) hypertension Is this a current diagnosis for this admission?: Yes (7) S/P CABG (coronary artery bypass graft) Is this a current diagnosis for this admission?: Yes (8) Diabetes mellitus type 2 in obese Is this a current diagnosis for this admission?: Yes (9) 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 2 diabetes mellitus Qualifiers: Diabetic foot ulcer location: heel Non-pressure ulcer stage: unspecified non-pressure ulcer stage Qualified Code(s): E11.621 - Type 2 diabetes mellitus with foot ulcer; L97.429 - Non-pressure chronic ulcer of left heel and midfoot with unspecified severity Is this a current diagnosis for this admission?: Yes (10) HLD (hyperlipidemia) Qualifiers: Hyperlipidemia type: pure hypercholesterolemia Qualified Code(s): E78.00 - Pure hypercholesterolemia, unspecified Is this a current diagnosis for this admission?: Yes (11) COPD (chronic obstructive pulmonary disease) Qualifiers: COPD type: unspecified COPD Qualified Code(s): J44.9 - Chronic obstructive pulmonary disease, unspecified Is this a current diagnosis for this admission?: Yes (12) Hx of stroke without residual deficits Is this a current diagnosis for this admission?: Yes (13) Chronic use of opiate for therapeutic purpose Is this a current diagnosis for this admission?: Yes (14) Obesity (BMI 30-39.9) Is this a current diagnosis for this admission?: Yes (15) Constipation due to opioid therapy Is this a current diagnosis for this admission?: Yes - Time Time Spent with patient: 25-34 minutes Medications reviewed and adjusted accordingly: Yes Anticipated discharge: Home with Homehealth - Inpatient Certification Based on my medical assessment, after consideration of the patient's comorbidities, presenting symptoms, or acuity I expect that the services needed warrant INPATIENT care.: Yes I certify that my determination is in accordance with my understanding of Medicare's requirements for reasonable and necessary INPATIENT services [42 CFR 412.3e].: Yes Medical Necessity: Significant Comorbidiites Make Outpatient Treatment Too Risky, Need Close Monitoring Due to Risk of Patient Decompensation, Need For Continuous Telemetry Monitoring, Risk of Complication if Not Cared For in Hospital, Risk of Diagnosis Which Will Require Inpatient Eval/Care/Monitoring Post Hospital Care: D/C Manager Technical Documentation - Plan Summary Plan Summary: Administer Kayexalate 30 gm po x 1 dose. Obtain complete echocardiogram to ev aluate her cardiac function and structure.
[2018-11-14] MEDS: INSULIN LISPRO 100 UNIT/ML 3 ML VIAL SUBCUT SCH ×4 (08:00→21:50)
[2018-11-14] MEDS ORDERED: SODIUM POLYSTYRENE SULFONATE 15 GM/60 ML ONE ×2 (08:02→08:12)
[2018-11-14] MEDS: FUROSEMIDE 20 MG TABLET PO SCH (08:07)
[2018-11-14] MEDS ORDERED: SODIUM POLYSTYRENE SULFONATE 15 GM/60 ML PO ONE (08:15)
[2018-11-14] MEDS: LUBIPROSTONE 24 MCG CAPSULE PO SCH ×2 (10:36→21:49)
[2018-11-14] MEDS: DOCUSATE SODIUM 100 MG CAPSULE PO SCH (10:37)
[2018-11-14] MEDS: AMLODIPINE BESYLATE 5 MG TABLET PO SCH (10:37)
[2018-11-14] MEDS: APIXABAN 2.5 MG TABLET PO SCH ×2 (10:37→17:39)
[2018-11-14] MEDS: FERROUS SULFATE 325 MG TABLET PO SCH (10:38)
[2018-11-14] MEDS: FAMOTIDINE 20 MG TABLET PO SCH ×2 (10:38→17:38)
[2018-11-14] MEDS: RANOLAZINE 500 MG TAB.SR.12H PO SCH ×2 (10:38→21:49)
[2018-11-14] MEDS: ASCORBIC ACID 500 MG TABLET PO SCH (10:39)
[2018-11-14] MEDS: SACUBITRIL/VALSARTAN 49 MG/51 MG TABLET PO SCH ×2 (10:41→21:50)
[2018-11-14] MEDS: OXYCODONE-ACETAMINOPHEN 5-325 MG TABLET PO PRN (16:11)
[2018-11-14] MEDS: OXYCODONE HCL IR 5 MG TABLET PO PRN (16:12)
[2018-11-14] MEDS: ATORVASTATIN CALCIUM 20 MG TABLET PO SCH (21:49)
[2018-11-15 05:43] LABS: ANION GAP 6 (5-19); BLOOD UREA NITROGEN 24 mg/dL (7-20); CALCIUM 8.6 mg/dL (8.4-10.2); CARBON DIOXIDE 27 mmol/L (22-30); CHLORIDE 106 mmol/L (98-107); GLUCOSE 88 mg/dL (75-110); POTASSIUM 4.7 mmol/L (3.6-5.0)
[2018-11-15] MEDS: SIMETHICONE 80 MG TAB.CHEW PO SCH ×2 (06:39→12:30)
[2018-11-15] MEDS: PANTOPRAZOLE SODIUM 40 MG TABLET.DR PO SCH (06:39)
[2018-11-15] MEDS: GABAPENTIN 100 MG CAPSULE PO SCH ×2 (06:39→13:43)
[2018-11-15] MEDS: INSULIN LISPRO 100 UNIT/ML 3 ML VIAL SUBCUT SCH ×2 (08:19→12:39)
[2018-11-15] MEDS: FUROSEMIDE 20 MG TABLET PO SCH (08:40)
[2018-11-15] MEDS: LUBIPROSTONE 24 MCG CAPSULE PO SCH (10:32)
[2018-11-15] MEDS: ASCORBIC ACID 500 MG TABLET PO SCH (10:32)
[2018-11-15] MEDS: FAMOTIDINE 20 MG TABLET PO SCH (10:33)
[2018-11-15] MEDS: FERROUS SULFATE 325 MG TABLET PO SCH (10:33)
[2018-11-15] MEDS: APIXABAN 2.5 MG TABLET PO SCH (10:33)
[2018-11-15] MEDS: RANOLAZINE 500 MG TAB.SR.12H PO SCH (10:33)
[2018-11-15] MEDS: DOCUSATE SODIUM 100 MG CAPSULE PO SCH (10:33)
[2018-11-15] MEDS: AMLODIPINE BESYLATE 5 MG TABLET PO SCH (10:38)
[2018-11-15] MEDS: SACUBITRIL/VALSARTAN 49 MG/51 MG TABLET PO SCH (10:38)
[2018-11-15] MEDS: OXYCODONE HCL IR 5 MG TABLET PO PRN (10:59)
[2018-11-15] MEDS: OXYCODONE-ACETAMINOPHEN 5-325 MG TABLET PO PRN (11:01)
--- NOTE | 2018-11-15 16:47 | PDOC DISCHARGE SUMMARY ---
General - Admit/Disc Date/PCP Admission Date/Primary Care Provider: 11/05/18 13:17 STEPHAN TAFOYA Discharge Date: 11/15/18 - Discharge Diagnosis (1) Anemia requiring transfusions Is this a current diagnosis for this admission?: Yes (2) Acute on chronic combined systolic and diastolic CHF, NYHA class 3 Is this a current diagnosis for this admission?: Yes (3) Anemia of chronic disease Is this a current diagnosis for this admission?: Yes (4) Chronic stable angina Is this a current diagnosis for this admission?: Yes (5) Chronic combined systolic and diastolic CHF (congestive heart failure) Is this a current diagnosis for this admission?: Yes (6) HTN (hypertension) Is this a current diagnosis for this admission?: Yes (7) S/P CABG (coronary artery bypass graft) Is this a current diagnosis for this admission?: Yes (8) Diabetes mellitus type 2 in obese Is this a current diagnosis for this admission?: Yes (9) 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 2 diabetes mellitus Is this a current diagnosis for this admission?: Yes (10) HLD (hyperlipidemia) Is this a current diagnosis for this admission?: Yes (11) COPD (chronic obstructive pulmonary disease) Is this a current diagnosis for this admission?: Yes (12) Hx of stroke without residual deficits Is this a current diagnosis for this admission?: Yes (13) Chronic use of opiate for therapeutic purpose Is this a current diagnosis for this admission?: Yes (14) Obesity (BMI 30-39.9) Is this a current diagnosis for this admission?: Yes (15) Constipation due to opioid therapy Is this a current diagnosis for this admission?: Yes - Additional Information Resuscitation Status: Full Code Discharge Diet: Cardiac, Diabetic Discharge Activity: Activity As Tolerated, Balance Activity w/Rest, Weigh Daily Prescriptions: Amlodipine Besylate [Norvasc 5 mg Tablet] 5 mg PO DAILY #30 tablet Apixaban [Eliquis 2.5 mg Tablet] 2.5 mg PO BID #60 tablet Ascorbic Acid 500 mg PO BIDACBS #60 tablet Atorvastatin Calcium [Lipitor 20 mg Tablet] 20 mg PO QHS #30 tablet Docusate Sodium [Colace 100 mg Capsule] 100 mg PO BIDP PRN #60 capsule PRN Reason: STOOL SOFTENER Famotidine [Pepcid] 20 mg PO BID #60 tablet Ferrous Sulfate [Feosol 325 mg Tablet] 325 mg PO BIDACBS #60 tablet Furosemide [Lasix 20 mg Tablet] 60 mg PO QAM #90 tablet Gabapentin [Neurontin 100 mg Capsule] 100 mg PO TID #90 capsule Insulin Aspart [Novolog Flexpen] 0 unit SUBCUT .SLD SCALE 90 Days #5 insuln.pen Insulin Degludec [Tresiba Flextouch U-100] 40 unit SQ DAILY #3 pkg Lubiprostone [Amitiza 24 Mcg Capsule] 24 mcg PO Q12 #60 capsule Nitroglycerin [Nitrostat 0.4 mg (1/150 Gr) Tabs 25/Bottle] 1 tab SL Q5MP PRN #1 bottle PRN Reason: For Chest Pain Ranolazine [Ranexa 500 mg Tab.sr] 500 mg PO Q12 #60 tab.sr.12h Sacubitril/Valsartan [Entresto 49 mg/51 mg Tablet] 1 tab PO Q12 #60 tablet Simethicone [Mylicon 80 mg Chewable Tablet] 80 mg PO Q6 #120 tab.chew Home Medications: Apixaban [Eliquis 2.5 mg Tablet] 2.5 mg PO BID #60 tablet 10/18/18 Aspirin [Ecotrin 81 mg EC Tablet] 81 mg PO DAILY 11/05/18 Oxycodone HCl/Acetaminophen [Percocet 7.5-325 mg Tablet] 1 each PO Q6HP PRN 11/05/18 Amlodipine Besylate [Norvasc 5 mg Tablet] 5 mg PO DAILY #30 tablet 11/15/18 Apixaban [Eliquis 2.5 mg Tablet] 2.5 mg PO BID #60 tablet 11/15/18 Ascorbic Acid 500 mg PO BIDACBS #60 tablet 11/15/18 Atorvastatin Calcium [Lipitor 20 mg Tablet] 20 mg PO QHS #30 tablet 11/15/18 Docusate Sodium [Colace 100 mg Capsule] 100 mg PO BIDP PRN #60 capsule 11/15/18 Famotidine [Pepcid] 20 mg PO BID #60 tablet 11/15/18 Ferrous Sulfate [Feosol 325 mg Tablet] 325 mg PO BIDACBS #60 tablet 11/15/18 Furosemide [Lasix 20 mg Tablet] 60 mg PO QAM #90 tablet 11/15/18 Gabapentin [Neurontin 100 mg Capsule] 100 mg PO TID #90 capsule 11/15/18 Insulin Aspart [Novolog Flexpen] 0 unit SUBCUT .SLD SCALE 90 Days #5 insuln.pen 11/15/18 Insulin Degludec [Tresiba Flextouch U-100] 40 unit SQ DAILY #3 pkg 11/15/18 Lubiprostone [Amitiza 24 Mcg Capsule] 24 mcg PO Q12 #60 capsule 11/15/18 Nitroglycerin [Nitrostat 0.4 mg (1/150 Gr) Tabs 25/Bottle] 1 tab SL Q5MP PRN #1 bottle 11/15/18 Ranolazine [Ranexa 500 mg Tab.sr] 500 mg PO Q12 #60 tab.sr.12h 11/15/18 Sacubitril/Valsartan [Entresto 49 mg/51 mg Tablet] 1 tab PO Q12 #60 tablet 11/15/18 Simethicone [Mylicon 80 mg Chewable Tablet] 80 mg PO Q6 #120 tab.chew 11/15/18 History of Present Illness Patient complains of: Heaviness feeling in chest History of Present Illness: JAVIER BURGER is a 63 year old female known to my practice who presented to the ED with complain about feeling of heaviness and pressure in her chest since waking up on the day of her presentation. She reported associated shortness of breath. She raised concern about possible development of pulmonary edema. She denied any recent unintentional weight gain or extremities swelling. She denied any radiation of pain into her left shoulder or upper extremity. No associated palpitation, diaphoresis, nausea, vomiting, or abdominal pain. No associated fever, chills, coughing, nasal or sinus congestion. She denied any flank pain, dysuria, hematuria, frequency, or difficulty with voiding. She reported compliance with her home medications. She reported multiple episodes of bleeding from her left thigh wound as well as right heel wounds after debridement and other treatment at [facility] during her recent visits. She denied headache, dizziness, or syncope. Her initial ED evaluation revealed significant drop in her hemoglobin. 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 Hospital Course Hospital Course: She was admitted for significant anemia with need for blood transfusion. Her anemia most likely due to recent preadmission bleeding events from her right thigh wound. Her hemoglobin remain within acceptable range post transfusion with two units PRBC. Her admission was further complicated with acute decompensation of her chronic combined systolic and diastolic congestive heart failure with elevated NT-Pro BNP level and associated symptoms of dyspnea and tightness in chest. She was managed with IV Lasix ad adjustment in her Entresto dosage for better blood pressure control and cardiac function. Her Amlodipine was decreased to 5 mg p.o daily due to reported dizziness with increase in her Entresto. Her symptoms did improved at the time of discharge. There was concern about hyperkalemia which was managed with Kayexalate administration and dietary restrictions. Her Lantus was decreased due to episodes of hypoglycemia related to poor p.o intake. She was discharged home on Tresiba 40 units daily due to non-formulary status of Lantus insulin at the time of her discharge. She was started on Amitiza due to opiate induced constipation. She will continue all other medication s listed and prescribed at the time of her discharge. She will be discharged home with home health agency services to include visiting nurse, persona care and physical therapy. she will follow up at [facility] as earlier schedule weekly on . she will follow up in the office as instructed upon discharge. Physical Exam Vital Signs: Temp Pulse Resp BP Pulse Ox 98.1 F 81 18 113/56 L 95 11/15/18 12:18 11/15/18 14:00 11/15/18 12:18 11/15/18 12:18 11/15/18 12:18 Intake & Output 11/14/18 11/15/18 11/16/18 06:59 06:59 06:59 Intake Total 1300 690 120 Output Total 1200 Balance 100 690 120 Weight 91.7 kg 91.5 kg Physical Exam: General appearance: PRESENT: no acute distress Head exam: PRESENT: atraumatic, normocephalic Eye exam: PRESENT: conjunctiva pink ABSENT: pallor, scleral icterus Ear exam: PRESENT: normal external ear exam Mouth exam: PRESENT: moist Teeth exam: PRESENT: poor dentition Respiratory exam: PRESENT: clear to auscultation jerrica, decreased breath sounds - at lung bases Cardiovascular exam: PRESENT: RRR. ABSENT: diastolic murmur, rubs, systolic murmur GI/Abdominal exam: PRESENT: normal bowel sounds, soft. ABSENT: distended, guarding, mass, organomegaly, rebound, tenderness Extremities exam: PRESENT: pedal edema - improving. Neurological exam: PRESENT: alert, awake, oriented to person, oriented to place, oriented to time, oriented to situation, CN II-XII grossly intact. ABSENT: motor sensory deficit Psychiatric exam: PRESENT: appropriate affect, normal mood. ABSENT: homicidal ideation, suicidal ideation Skin exam: PRESENT: dry, warm, healing left thigh medial aspect wound with in situ dressing. Results Laboratory Results: 11/13/18 18:35 11/15/18 04:27 11/15/18 04:27 Sodium 139.0 Potassium 4.7 Chloride 106 Carbon Dioxide 27 Anion Gap 6 BUN 24 H Creatinine 1.25 Est GFR ( Amer) 52 L Est GFR (Non-Af Amer) 43 L Glucose 88 Calcium 8.6 11/03/18 11/03/18 11/03/18 21:27 21:27 21:27 Creatine Kinase 42 Cancelled CK-MB (CK-2) Troponin I < 0.012 NT-Pro-B Natriuret Pep 4100 H 11/04/18 11/04/18 11/04/18 01:06 01:06 06:40 Creatine Kinase 25 L 28 L CK-MB (CK-2) < 0.22 Troponin I < 0.012 NT-Pro-B Natriuret Pep 4750 H 11/04/18 11/04/18 11/04/18 06:40 21:30 21:30 Creatine Kinase 29 L CK-MB (CK-2) < 0.22 0.27 Troponin I 0.026 < 0.012 NT-Pro-B Natriuret Pep Impressions: Chest X-Ray 11/03/18 21:41 IMPRESSION: Cardiomegaly. Lungs are clear copyright 2011 [employer]- All Rights Reserved Acute Abdomen Series 11/08/18 00:00 IMPRESSION: NO RADIOGRAPHIC EVIDENCE FOR ACUTE ABDOMINAL DISEASE. Constipation Qualifiers - * PATIENT BEING DISCHARGED WITH ANY OF THE FOLLOWING DIAGNOSIS: No Acute Heart Failure - Is this a Heart Failure Patient?: Yes Documentation of LVEF assessment?: Yes LVEF < 40%?: No- if no continue to question #3 3. Anticoagulant therapy for permanect/persistent/paraoxysmal Afib or Aflutter: Yes Follow-up Appointment scheduled within 7 days?: Yes Plan Discharge Plan: D/C home today with [facility] services. Follow up in the office as instructed upon discharge.
[2018-11-15 16:57] VITALS: BP 106/52
--- NOTE | 2018-11-16 21:32 | XCELERA REPORT ---
[address] [address] Transthoracic Echocardiogram Report Name: JAVIER BURGER Age: 63 yrs Gender: Female : 1955 Patient Status: Inpatient Patient Location: [address] [place], [place] [address]A Study Date: 11/14/2018 09:28 AM Height: 64 in Weight: 202 lb BSA: 2.0 m2 Procedure: A two-dimensional transthoracic echocardiogram with color flow and Doppler was performed. Study Quality: Fair. Reason For Study: CHF History: CHF. Ordering Physician: STEPHAN TAFOYA Performed By: Christina Knight Interpretation Summary The left ventricle is normal in size. There is mild concentric left ventricular hypertrophy. LV EF is 60% Left ventricular systolic function is normal. Doppler measurements suggest normal left ventricular diastolic function The left ventricular wall motion is normal. No ASD ,VSD , or PFO seen. The right ventricle is moderately dilated. The right ventricle is not well visualized secondary to technical limitations The left atrium is moderately dilated. The right atrium is mild to moderately dilated. There is mild to moderate mitral annular calcification. There is no evidence of mitral valve prolapse. There is no vegetation seen on the mitral valve. There is no mitral valve stenosis. There is a moderate amount of mitral regurgitation There is no aortic valvular vegetation. There is mild aortic stenosis There is a peak gradient of 20 mm of Hg. No hemodynamically significant valvular aortic stenosis. No aortic regurgitation is present. There is no tricuspid stenosis. There is a moderate to severe amount of tricuspid regurgitation There is moderate pulmonary hypertension by echo RVSP is 56 to 61 mm of Hg , with RA mean of 15 to 20 There is no pulmonic valvular stenosis. There is a mild to moderate amount of pulmonic regurgitation The aortic root is normal size. The inferior vena cava appeared dilated and decreased < 50% with respiration (RAP 15-20 mmHg) There is no pericardial effusion. MMode/2D Measurements & Calculations RVDd: 4.6 cm LVIDd: 4.5 cm FS: 29.1 % Ao root diam: 2.8 cm IVSd: 1.2 cm LVIDs: 3.2 cm EDV(Teich): Ao root area: LVPWd: 1.2 cm 94.5 ml 6.0 cm2 ESV(Teich): LA dimension: 4.9 cm 41.5 ml EF(Teich): 56.0 % LVLd ap4: 9.0 cm SV(MOD-sp4): EDV(MOD-sp4): 83.0 ml 122.0 ml LVLs ap4: 7.8 cm ESV(MOD-sp4): 39.0 ml EF(MOD-sp4): 68.0 % Doppler Measurements & Calculations MV E max mia: MV P1/2t max mia: Ao V2 max: LV V1 max P.8 cm/sec 149.7 cm/sec 224.2 cm/sec 5.2 mmHg MV A max mia: MV P1/2t: 63.7 msec Ao max PG: LV V1 max: 126.7 cm/sec MVA(P1/2t): 3.5 cm2 20.1 mmHg 114.1 cm/sec MV E/A: 1.2 MV dec slope: 688.3 cm/sec2 MV dec time: 0.21 sec PA V2 max: PI end-d mia: TR max mia: MV P1/2t-pr_phl: 82.9 cm/sec 108.6 cm/sec 317.6 cm/sec 63.7 msec PA max P.8 mmHg TR max P.4 mmHg Left Ventricle The left ventricle is normal in size. There is mild concentric left ventricular hypertrophy. LV EF is 60%. Left ventricular systolic function is normal. Doppler measurements suggest normal left ventricular diastolic function. The left ventricular wall motion is normal. No ASD ,VSD , or PFO seen. Right Ventricle The right ventricle is moderately dilated. The right ventricle is not well visualized secondary to technical limitations. Atria The right atrium is mild to moderately dilated. The left atrium is moderately dilated. Mitral Valve There is mild to moderate mitral annular calcification. There is no evidence of mitral valve prolapse. There is no vegetation seen on the mitral valve. There is no mitral valve stenosis. There is a moderate amount of mitral regurgitation. Aortic Valve There is no aortic valvular vegetation. There is mild aortic stenosis. There is a peak gradient of 20 mm of Hg. No hemodynamically significant valvular aortic stenosis. No aortic regurgitation is present. Tricuspid Valve There is no tricuspid stenosis. There is a moderate to severe amount of tricuspid regurgitation. There is moderate pulmonary hypertension by echo. RVSP is 56 to 61 mm of Hg , with RA mean of 15 to 20. Pulmonic Valve There is no pulmonic valvular stenosis. There is a mild to moderate amount of pulmonic regurgitation. Great Vessels The aortic root is normal size. The inferior vena cava appeared dilated and decreased < 50% with respiration (RAP 15-20 mmHg). Effusions There is no pericardial effusion. : STEPHAN TAFOYA > Charlette Harding
== END 2018-11-15 18:08 | disposition home or self-care (01) | DRG 811 ==
LOC: ER 20:55 → EH 11-04 00:04 → 3W 11-04 02:14 → OBSVTOIN 11-05 13:17 → 3W 11-13 18:25
PROVIDERS: ADMIT Internal Medicine; ATTEND Internal Medicine Geriatric Medicine
PROC: 30233N1 Transfusion of Nonautologous Red Blood Cells into Peripheral Vein, Percutaneous Approach (ICD-10-PCS; principal; 2018-11-04)
DX: D50.0 Iron deficiency anemia secondary to blood loss (chronic) (principal); I50.43 Acute on chronic combined systolic (congestive) and diastolic (congestive) heart failure; L97.429 Non-pressure chronic ulcer of left heel and midfoot with unspecified severity; D63.1 Anemia in chronic kidney disease; I11.0 Hypertensive heart disease with heart failure; E66.9 Obesity, unspecified; E11.621 Type 2 diabetes mellitus with foot ulcer; E78.5 Hyperlipidemia, unspecified; J44.9 Chronic obstructive pulmonary disease, unspecified; K59.03 Drug induced constipation; T40.2X5A Adverse effect of other opioids, initial encounter; I25.118 Atherosclerotic heart disease of native coronary artery with other forms of angina pectoris; E78.00 Pure hypercholesterolemia, unspecified; E11.51 Type 2 diabetes mellitus with diabetic peripheral angiopathy without gangrene; Z60.2 Problems related to living alone; I25.2 Old myocardial infarction; Z95.1 Presence of aortocoronary bypass graft; Z86.73 Personal history of transient ischemic attack (TIA), and cerebral infarction without residual deficits; Z79.891 Long term (current) use of opiate analgesic; Z79.4 Long term (current) use of insulin; Z79.899 Other long term (current) drug therapy; Z87.891 Personal history of nicotine dependence; Z88.6 Allergy status to analgesic agent; Z95.5 Presence of coronary angioplasty implant and graft; Z82.49 Family history of ischemic heart disease and other diseases of the circulatory system
CPT/HCPCS: 36415; 36430; 71045; 74022; 80048; 80053; 80061; 80076; 82140; 82150; 82550; 82553; 82607; 82728; 82746; 82962; 83036; 83540; 83550; 83690; 83735; 83880; 84100; 84439; 84443; 84484; 85025; 85045; 85610; 85730; 86850; 86900; 86901; 86920; 93005; 93010; 93306; 99285; A6266; G0378; J1650; J1815; J1940; J2405; J3490; P9016

== ENCOUNTER 2019-02-14 07:40 | Inpatient (IN) | payer MEDICARE, MEDICAID ==
[2019-02-14] MEDS ORDERED: FUROSEMIDE INJ/PF 100 MG/10 ML SDV IV ONE (08:58)
--- NOTE | 2019-02-14 09:12 | ER Document Report ---
ED Respiratory Problem - General Chief Complaint: Shortness Of Breath Stated Complaint: BREATHING PROBLEMS Time Seen by Provider: 02/14/19 08:42 Information source: Patient Notes: Patient presents complaining of difficulty breathing that started yesterday. Patient states that since 8:00 this morning she has had chest pain that she describes as someone sitting on her chest. Patient complains of headache. Patient also complains of increased swelling to the lower extremities over the past week. Patient diaphoretic, tachypneic and tachycardic at this time. Patient also complains of diabetic foot ulcer to the left foot. TRAVEL OUTSIDE OF THE [place] IN LAST 30 DAYS: No - HPI Patient complains to provider of: Chest pain, Cough, Short of breath Onset: Yesterday Duration: Worse/persistent Quality of pain: Pressure Pain Level: 2 Context: Hx CHF. denies: Smoker Short of Breath: Moderate Cough: Nonproductive Associated symptoms: Anxiety, Chest pain/discomfort, Cough, Short of breath. denies: Fever Similar symptoms previously: Yes Recently seen / treated by doctor: No - Related Data Allergies/Adverse Reactions: duloxetine Allergy (Verified 11/20/18 13:35) pregabalin [From Lyrica] Allergy (Verified 11/20/18 12:21) Swelling of hands and face Past Medical History - General Information source: Patient, Relative - Social History Smoking Status: Former Smoker Chew tobacco use (# tins/day): No Frequency of alcohol use: None Drug Abuse: None Lives with: Family Family History: CAD, Hyperlipidemia, Hypertension Patient has suicidal ideation: No Patient has homicidal ideation: No - Past Medical History Cardiac Medical History: Reports: Hx Congestive Heart Failure, Hx Coronary Artery Disease, Hx Heart Attack, Hx Hypercholesterolemia, Hx Hypertension, Hx Peripheral Vascular Disease Pulmonary Medical History: Reports: Hx Bronchitis Neurological Medical History: Reports: Hx Cerebrovascular Accident - 2007 Endocrine Medical History: Reports: Hx Diabetes Mellitus Type 1, Hx Diabetes Mellitus Type 2 Renal/ Medical History: Denies: Hx End Stage Renal Disease, Hx Peritoneal Dialysis Malignancy Medical History: GI Medical History: Reports: Hx Diverticulitis - diverticulosis Musculoskeletal Medical History: Skin Medical History: Reports Other - Diabetic foot ulcer Psychiatric Medical History: Traumatic Medical History: Infectious Medical History: Past Surgical History: Reports: Hx Cardiac Surgery - quad bypass, Hx Coronary Artery Bypass Graft - July 31 2011, Hx Tonsillectomy, Hx Vascular Surgery - Immunizations Immunizations up to date: No Hx Diphtheria, Pertussis, Tetanus Vaccination: Yes Hx Pneumococcal Vaccination: 02/04/11 Review of Systems - Review of Systems Constitutional: No symptoms reported. denies: Chills, Fever EENT: No symptoms reported Cardiovascular: Chest pain Respiratory: Cough, Short of breath Gastrointestinal: No symptoms reported. denies: Nausea Genitourinary: No symptoms reported Female Genitourinary: No symptoms reported Musculoskeletal: No symptoms reported Skin: Other - Ulcer to left foot Hematologic/Lymphatic: No symptoms reported Neurological/Psychological: No symptoms reported Physical Exam - Vital signs Vitals: Resp 18 02/14/19 07:54 - General General appearance: Alert, Anxious In distress: Moderate - HEENT Head: Normocephalic, Atraumatic Eyes: Normal Nasal: Normal Mouth/Lips: Normal Mucous membranes: Normal Neck: Supple, Other - +JVD - Respiratory Respiratory status: Labored, Tachypnea Chest status: Tender, Pain with deep breathing Breath sounds: Nonproductive cough, Rales, Rhonchi Chest palpation: Tender - Cardiovascular Rhythm: Tachycardia Heart sounds: S1 appreciated, S2 appreciated - Abdominal Inspection: Normal Distension: No distension Tenderness: Nontender - Back Back: Normal - Extremities General upper extremity: Normal inspection, Normal ROM General lower extremity: Edema - bilat LE Foot: Other - Malodorous diabetic foot wound to L foot - Neurological Neuro grossly intact: Yes Cognition: Normal Amber Coma Scale Eye Opening: Spontaneous Amber Coma Scale Verbal: Oriented Amber Coma Scale Motor: Obeys Commands Amber Coma Scale Total: 15 - Psychological Associated symptoms: Anxious - Skin Skin Temperature: Warm Skin Moisture: Dry Skin Color: Normal Course - Re-evaluation Re-evalutation: 02/14/19 10:44 Patient reports ease of breathing with use of BiPAP machine at this time. Med reconciliation obtained. Patient has not had any of her usual daily medications today. 02/14/19 11:12 Consulted with patient's primary doctor Dr. Moffett who does agree to accept patient to [facility] admission at this time. Patient's x-ray shows right upper lobe pneumonia with some pulmonary edema. Patient was diuresed with IV Lasix while here in the emergency department. 02/14/19 13:00 Patient resting comfortably, patient continues on biPap machine. Vital signs stable at this time. Pt awaiting available bed upstairs. - Vital Signs Vital signs: Temp Pulse Resp BP Pulse Ox 98.3 F 81 16 146/66 H 95 02/14/19 20:16 02/14/19 20:16 02/14/19 20:16 02/14/19 20:16 02/14/19 20:16 - Laboratory Result Diagrams: 02/14/19 08:30 02/14/19 08:30 Laboratory results interpreted by me: 02/14/19 02/14/19 02/14/19 08:30 08:30 08:30 WBC 11.2 H RBC 3.16 L Hgb 9.3 L Hct 29.1 L MCHC 31.8 L RDW 16.8 H Lymph % (Auto) 9.0 L Absolute Neuts (auto) 9.6 H Seg Neutrophils % 85.6 H ABG pO2 ABG HCO3 ABG Total CO2 ABG O2 Saturation BUN 22 H Glucose 169 H Direct Bilirubin 0.6 H Alkaline Phosphatase 458 H NT-Pro-B Natriuret Pep 5640 H Total Protein 10.0 H Urine Protein Urine Blood Urine Urobilinogen Ur Leukocyte Esterase 02/14/19 02/14/19 10:10 10:10 WBC RBC Hgb Hct MCHC RDW Lymph % (Auto) Absolute Neuts (auto) Seg Neutrophils % ABG pO2 65.4 L ABG HCO3 24.3 H ABG Total CO2 25.7 H ABG O2 Saturation 92.0 L BUN Glucose Direct Bilirubin Alkaline Phosphatase NT-Pro-B Natriuret Pep Total Protein Urine Protein >=500 H Urine Blood SMALL H Urine Urobilinogen 4.0 H Ur Leukocyte Esterase MODERATE H Labs- Entire Visit 02/14/19 02/14/19 02/14/19 08:30 08:30 08:30 WBC 11.2 H RBC 3.16 L Hgb 9.3 L Hct 29.1 L MCV 92 MCH 29.3 MCHC 31.8 L RDW 16.8 H Plt Count 421 Lymph % (Auto) 9.0 L [place] % (Auto) 4.7 Eos % (Auto) 0.3 Baso % (Auto) 0.4 Absolute Neuts (auto) 9.6 H Absolute Lymphs (auto) 1.0 Absolute Monos (auto) 0.5 Absolute Eos (auto) 0.0 Absolute Basos (auto) 0.0 Seg Neutrophils % 85.6 H Carbonic Acid HCO3/H2CO3 Ratio ABG pH ABG pCO2 ABG pO2 ABG HCO3 ABG Total CO2 ABG O2 Saturation ABG Base Excess FiO2 Sodium 141.6 Potassium 4.8 Chloride 107 Carbon Dioxide 24 Anion Gap 11 BUN 22 H Creatinine 0.71 Est GFR ( Amer) > 60 Est GFR (MDRD) Non-Af > 60 Glucose 169 H Calcium 9.9 Total Bilirubin 1.1 Direct Bilirubin 0.6 H Neonat Total Bilirubin Not Reportable Neonat Direct Bilirubin Not Reportable Neonat Indirect Bili Not Reportable AST 20 ALT 13 Alkaline Phosphatase 458 H Troponin I < 0.012 NT-Pro-B Natriuret Pep 5640 H Total Protein 10.0 H Albumin 4.1 Urine Color Urine Appearance Urine pH Ur Specific [place] Urine Protein Urine Glucose (UA) Urine Ketones Urine Blood Urine Nitrite Urine Bilirubin Urine Urobilinogen Ur Leukocyte Esterase Urine WBC (Auto) Urine RBC (Auto) U Hyaline Cast (Auto) Urine Bacteria (Auto) Squamous Epi Cells Auto Urine Ascorbic Acid 02/14/19 02/14/19 10:10 10:10 WBC RBC Hgb Hct MCV MCH MCHC RDW Plt Count Lymph % (Auto) [place] % (Auto) Eos % (Auto) Baso % (Auto) Absolute Neuts (auto) Absolute Lymphs (auto) Absolute Monos (auto) Absolute Eos (auto) Absolute Basos (auto) Seg Neutrophils % Carbonic Acid 1.33 HCO3/H2CO3 Ratio 18:1 ABG pH 7.36 ABG pCO2 44.3 ABG pO2 65.4 L ABG HCO3 24.3 H ABG Total CO2 25.7 H ABG O2 Saturation 92.0 L ABG Base Excess -1.3 FiO2 30% Sodium Potassium Chloride Carbon Dioxide Anion Gap BUN Creatinine Est GFR ( Amer) Est GFR (MDRD) Non-Af Glucose Calcium Total Bilirubin Direct Bilirubin Neonat Total Bilirubin Neonat Direct Bilirubin Neonat Indirect Bili AST ALT Alkaline Phosphatase Troponin I NT-Pro-B Natriuret Pep Total Protein Albumin Urine Color YELLOW Urine Appearance SLIGHTLY-CLOUDY Urine pH 6.0 Ur Specific [place] 1.011 Urine Protein >=500 H Urine Glucose (UA) NEGATIVE Urine Ketones NEGATIVE Urine Blood SMALL H Urine Nitrite NEGATIVE Urine Bilirubin NEGATIVE Urine Urobilinogen 4.0 H Ur Leukocyte Esterase MODERATE H Urine WBC (Auto) 36 Urine RBC (Auto) 5 U Hyaline Cast (Auto) 1 Urine Bacteria (Auto) 1+ Squamous Epi Cells Auto 12 Urine Ascorbic Acid NEGATIVE - Diagnostic Test Radiology reviewed: Image reviewed, Reports reviewed - EKG Interpretation by Me EKG shows normal: Sinus rhythm Rhythm: PVC's Additional EKG results interpreted by me: 02/14/19 11:[address] elevation, no T wave inversion, QTC 468 Discharge - Discharge Clinical Impression: Acute on chronic systolic CHF (congestive heart failure), Respiratory distress Type 2 diabetes mellitus with foot ulcer 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
[2019-02-14 09:52] LABS: ABSOLUTE MONOCYTES (AUTO) 0.5 10^3/uL (0.1-1.4); ABSOLUTE NEUT (AUTO) 9.6 10^3/uL (1.7-8.2); BASOPHILS % (AUTO) 0.4 % (0-2); EOSINOPHILS % (AUTO) 0.3 % (0-6); HEMATOCRIT 29.1 % (36.0-47.0); HEMOGLOBIN 9.3 g/dL (12.0-15.5); MEAN CORPUSCULAR HEMOGLOBIN 29.3 pg (27.0-33.4); MEAN CORPUSCULAR HGB CONC 31.8 g/dL (32.0-36.0); MEAN CORPUSCULAR VOLUME 92 fl (80-97); MONOCYTES % (AUTO) 4.7 % (3-13); PLATELET COUNT 421 10^3/uL (150-450); RED BLOOD COUNT 3.16 10^6/uL (3.72-5.28); RED CELL DISTRIBUTION WIDTH 16.8 % (11.5-14.0); SEGMENTED NEUTROPHILS % (AUTO) 85.6 % (42-78); TOTAL CELLS COUNTED % (AUTO) 100 %; WHITE BLOOD COUNT 11.2 10^3/uL (4.0-10.5)
[2019-02-14 10:14] LABS: ALBUMIN 4.1 g/dL (3.5-5.0); ALKALINE PHOSPHATASE 458 U/L (38-126); ANION GAP 11 (5-19); ASPARTATE AMINO TRANSFERASE 20 U/L (14-36); BILIRUBIN,DIRECT 0.6 mg/dL (0.0-0.4); BILIRUBIN,TOTAL 1.1 mg/dL (0.2-1.3); BLOOD UREA NITROGEN 22 mg/dL (7-20); CALCIUM 9.9 mg/dL (8.4-10.2); CARBON DIOXIDE 24 mmol/L (22-30); CHLORIDE 107 mmol/L (98-107); GLUCOSE 169 mg/dL (75-110); POTASSIUM 4.8 mmol/L (3.6-5.0)
[2019-02-14 10:25] LABS: NT PRO BNP 5640 pg/mL (5-900)
[2019-02-14 10:28] LABS: TROPONIN I < 0.012 ng/mL
[2019-02-14 10:30] LABS: APPEARANCE,URINE SLIGHTLY-CLOUDY; BILIRUBIN,URINE NEGATIVE (NEGATIVE); COLOR,URINE YELLOW; GLUCOSE, URINE NEGATIVE (NEGATIVE); KETONES,URINE NEGATIVE (NEGATIVE); LEUKOCYTE ESTERASE,URINE MODERATE (NEGATIVE); NITRITE,URINE NEGATIVE (NEGATIVE); PROTEIN,URINE >=500 mg/dL (NEGATIVE); URINE SPECIFIC GRAVITY 1.011
[2019-02-14 10:37] LABS: ARTERIAL BLOOD BASE EXCESS -1.3 mmol/L; ARTERIAL BLOOD H2CO3 1.33 mmol/L (1.05-1.35); ARTERIAL BLOOD HCO3 24.3 mmol/L (20-24); ARTERIAL BLOOD PCO2 44.3 mmHg (35-45); ARTERIAL BLOOD PH 7.36 (7.35-7.45); ARTERIAL BLOOD PO2 65.4 mmHg (80-100); ARTERIAL BLOOD TOTAL CO2 25.7 mmol/L (21-25)
[2019-02-14 10:38] LABS: ARTERIAL BLOOD FIO2 30%
[2019-02-14] MEDS ORDERED: ASPIRIN 81 MG TABLET, CHEWABLE PO ONE (10:43)
[2019-02-14] MEDS ORDERED: AMLODIPINE BESYLATE 10 MG TABLET PO ONE (10:43)
[2019-02-14] MEDS ORDERED: VALSARTAN 160 MG TABLET PO ONE (10:43)
[2019-02-14] MEDS ORDERED: CEFTRIAXONE 1 GM/D5W RTU 1 GM/50 ML RTUPB IV ONE (10:50)
--- NOTE | 2019-02-14 10:52 | RADIOLOGY REPORT (SQ) ---
EXAM DESCRIPTION: CHEST SINGLE VIEW COMPLETED DATE/TIME: 02/14/2019 10:43 am REASON FOR STUDY: cp, sob COMPARISON: None. EXAM PARAMETERS: NUMBER OF VIEWS: One view. TECHNIQUE: Single frontal radiographic view of the chest acquired. RADIATION DOSE: NA LIMITATIONS: None. FINDINGS: LUNGS AND PLEURA: Pulmonary edema. There is focal opacification in the right upper lobe a djacent to the fissure. MEDIASTINUM AND HILAR STRUCTURES: No masses. Contour normal. HEART AND VASCULAR STRUCTURES: Cardiomegaly. BONES: No acute findings. HARDWARE: Sternotomy wires. OTHER: No other significant finding. IMPRESSION: Cardiomegaly with mild pulmonary edema. Right upper lobe pneumonia. TECHNICAL DOCUMENTATION: JOB ID: [id number] [employer]- All Rights Reserved Reading location - IP/workstation name: [email or web address]
--- NOTE | 2019-02-14 10:55 | RADIOLOGY REPORT (SQ) ---
EXAM DESCRIPTION: FOOT LEFT COMPLETE COMPLETED DATE/TIME: 02/14/2019 10:43 am REASON FOR STUDY: diabetic foot wound COMPARISON: None. NUMBER OF VIEWS: Three views. TECHNIQUE: AP, lateral and oblique radiographic images acquired of the left foot. LIMITATIONS: None. FINDINGS: MINERALIZATION: Decreased BONES: No definite acute fracture dislocation. Degenerative changes around the MTP and interphalange al joints with scattered osteophytosis. Mild midfoot osteophytosis. Pes planus. No definitive griselda ical destruction. Superior calcaneal enthesophyte. JOINTS: No dislocation. SOFT TISSUES: Diffuse soft tissue swelling about the foot. Ulcer along the plantar aspect of the hin dfoot. OTHER: No other significant finding. IMPRESSION: 1. Diffuse soft tissue swelling about the foot without definitive evidence of osteomyel itis. Ulceration along the plantar aspect of the hindfoot. 2. Decreased osseous mineralization with degenerative changes as above. TECHNICAL DOCUMENTATION: JOB ID: [id number] [employer]- All Rights Reserved Reading location - IP/workstation name: [email or web address]
[2019-02-14] MEDS ORDERED: IPRATROPIUM/ALBUTEROL 0.5-2.5 MG/3 ML AMPUL NEB ONE (11:06)
[2019-02-14] MEDS ORDERED: AZITHROMYCIN INJ 500 MG VIAL IV ONE (11:14)
[2019-02-14] MEDS ORDERED: (PENDING PHARMACY ID) (Oxycodone Hcl/Acetaminophen [Percocet 7.5-325 Mg Tablet] 1 TAB) PO PRN (18:12)
[2019-02-14] MEDS ORDERED: NITROGLYCERIN 0.4 MG/TAB 25 TAB/BOTTLE SL PRN (18:12)
--- NOTE | 2019-02-14 18:12 | PDOC H&P ---
History of Present Illness Admission Date/PCP: 02/14/19 11:29 [facility] Patient complains of: Shortness of breath History of Present Illness: JAVIER BURGER is a 63 year old female known to my practice who presented to the ED with complain about worsening shortness of breath for couple of days. She admitted to excessive water intake due to perceived thirst on diuretic therapy. Patient reported that she cut back on fluid intake but her breathing difficulty persist necessitating coming to the ED. He reported associated minimally productive coughing. She denied any definite fever but claimed that she quickly get cold. She denied any nasal or sinus congestion. No headache or dizziness. No nausea or vomiting but experience right upper abdominal region pain that radiate into her back. Her initial ED evaluation was significant for respiratory distress with hypoxemia and need for BiPAP support and administration of IV Lasix due to concern for fluid overload. Her chest X ray did suggest RUL consolidation and pulmonary vascular congestion in line with fluid overload. There was associated elevated NT-Pro BNP, leukocytosis with left shift, and abnormal urinalysis. She was advised hospitalization for further evaluation and management. Her morbidities are as listed below. Past Medical History Cardiac Medical History: Reports: Congestive Heart Failure, Coronary Artery Disease, Myocardial Infarction, Hyperlipidema, Hypertension, Peripheral Vascular Disease Denies: Atrial Fibrillation Pulmonary Medical History: Reports: Bronchitis Denies: Asthma, Chronic Obstructive Pulmonary Disease (COPD), Pneumonia, Tuberculosis Neurological Medical History: Denies: Seizures Endocrine Medical History: Reports: Diabetes Mellitus Type 1, Diabetes Mellitus Type 2 Renal/ Medical History: Denies: End Stage Renal Disease Malignancy Medical History: GI Medical History: Reports: Diverticulitis - diverticulosis Denies: Gastroesophageal Reflux Disease, Hiatal Hernia Musculoskeltal Medical History: Denies: Arthritis Psychiatric Medical History: Denies: Bipolar Disorder, Depression Hematology: Denies: Anemia, Hemophilia, Sickle Cell Disease Infectious Medical History: Past Surgical History Past Surgical History: Reports: Coronary Artery Bypass Graft - July 31 2011, Tonsillectomy, Vascular Surgery Denies: Amputation, Appendectomy, Cardiac Catheterization, Section, Cholecystectomy, Hysterectomy, Mastectomy, Tubal Ligation Social History Information Source: Patient Lives with: Family - amputee son Smoking Status: Unknown if Ever Smoked Electronic Cigarette use?: No Frequency of Alcohol Use: None Hx Recreational Drug Use: No Drugs: None Hx Prescription Drug Abuse: No - Advance Directive Resuscitation Status: Full Code Family History Family History: CAD, Hyperlipidemia, Hypertension Parental Family History Reviewed: Yes Children Family History Reviewed: Yes Sibling(s) Family History Reviewed.: Yes Medication/Allergy Home Medications: Amlodipine Besylate [Norvasc 10 mg Tablet] 10 mg PO DAILY 02/14/19 Apixaban [Eliquis 2.5 mg Tablet] 2.5 mg PO BID 02/14/19 Ascorbic Acid [Vitamin C 500 mg Tablet] 500 mg PO DAILY 02/14/19 Atorvastatin Calcium [Lipitor 20 mg Tablet] 20 mg PO QHS 02/14/19 Clopidogrel Bisulfate [Plavix 75 mg Tablet] 75 mg PO DAILY 02/14/19 Docusate Sodium [Colace 100 mg Capsule] 100 mg PO BID 02/14/19 Famotidine [Pepcid 20 mg Tablet] 20 mg PO BID 02/14/19 Ferrous Sulfate [Feosol 325 mg Tablet] 325 mg PO DAILY 02/14/19 Furosemide [Lasix 20 mg Tablet] 60 mg PO DAILY 02/14/19 Gabapentin [Neurontin 100 mg Capsule] 100 mg PO Q8 02/14/19 Multivit,Calc,Mins/Iron/Folic [Thera M Plus Tablet] 1 tab PO DAILY 02/14/19 Nitroglycerin [Nitrostat 0.4 mg (1/150 Gr) Tabs 25/Bottle] 0.4 mg SL Q5MP PRN 02/14/19 Oxycodone HCl/Acetaminophen [Percocet 7.5-325 mg Tablet] 1 tab PO Q6HP PRN 02/14/19 Valsartan [Diovan 160 mg Tablet] 160 mg PO DAILY 02/14/19 Allergies/Adverse Reactions: duloxetine Allergy (Verified 11/20/18 13:35) pregabalin [From Lyrica] Allergy (Verified 11/20/18 12:21) Swelling of hands and face Review of Systems Constitutional: PRESENT: chills Eyes: ABSENT: visual disturbances Ears: ABSENT: hearing changes Nose, Mouth, and Throat: ABSENT: as per HPI, headache(s), mouth pain, sore throat, vertigo, other Cardiovascular: PRESENT: dyspnea on exertion Respiratory: PRESENT: cough, dyspnea Gastrointestinal: PRESENT: abdominal pain Genitourinary: ABSENT: dysuria, hematuria Musculoskeletal: PRESENT: back pain - right upper back region Integumentary: PRESENT: wounds - left heel chronic diabetic ulcer wound. ABSENT: rash Neurological: PRESENT: abnormal gait - ambulate with quad cane at home Psychiatric: PRESENT: anxiety, depression Endocrine: PRESENT: cold intolerance, polydipsia. ABSENT: polyphagia, polyuria Hematologic/Lymphatic: ABSENT: easy bleeding, easy bruising, lymphadenopathy Allergic/Immunologic: ABSENT: seasonal rhinorrhea Physical Exam Vital Signs: Temp Pulse Resp BP Pulse Ox 97.8 F 19 161/98 H 93 02/14/19 08:51 02/14/19 12:01 02/14/19 12:01 02/14/19 16:34 Intake & Output 02/13/19 02/14/19 02/15/19 06:59 06:59 06:59 Intake Total 50 Output Total 1103 Balance -1053 Weight 87.2 kg General appearance: PRESENT: mild distress - respiratory distress with supplemental oxygen via nasal cannula., obese Head exam: PRESENT: atraumatic, normocephalic Eye exam: PRESENT: conjunctiva pink, EOMI, PERRLA. ABSENT: scleral icterus Ear exam: PRESENT: normal external ear exam Mouth exam: PRESENT: moist Teeth exam: PRESENT: poor dentation Respiratory exam: PRESENT: crackles, decreased breath sounds Cardiovascular exam: PRESENT: RRR. ABSENT: diastolic murmur, rubs, systolic murmur Vascular exam: ABSENT: pallor GI/Abdominal exam: PRESENT: normal bowel sounds, soft, tenderness - nonspecific to deep palpation over RUQ region. ABSENT: distended, guarding, mass, organolmegaly, rebound Rectal exam: PRESENT: deferred Extremities exam: ABSENT: pedal edema Musculoskeletal exam: PRESENT: tenderness - left heel pressure ulcer region and general palpation on extremities muscle Neurological exam: PRESENT: alert, awake, oriented to person, oriented to place, oriented to time, oriented to situation, CN II-XII grossly intact. ABSENT: motor sensory deficit Psychiatric exam: PRESENT: appropriate affect, normal mood. ABSENT: homicidal ideation, suicidal ideation Skin exam: PRESENT: dry, warm. ABSENT: intact - left heel pressure/diabetic ulcer Results Laboratory Results: 02/14/19 08:30 02/14/19 08:30 02/14/19 02/14/19 02/14/19 08:30 08:30 10:10 WBC 11.2 H RBC 3.16 L Hgb 9.3 L Hct 29.1 L MCV 92 MCH 29.3 MCHC 31.8 L RDW 16.8 H Plt Count 421 Seg Neutrophils % 85.6 H Carbonic Acid HCO3/H2CO3 Ratio ABG pH ABG pCO2 ABG pO2 ABG HCO3 ABG O2 Saturation ABG Base Excess FiO2 Sodium 141.6 Potassium 4.8 Chloride 107 Carbon Dioxide 24 Anion Gap 11 BUN 22 H Creatinine 0.71 Est GFR ( Amer) > 60 Glucose 169 H Calcium 9.9 Total Bilirubin 1.1 AST 20 Alkaline Phosphatase 458 H Total Protein 10.0 H Albumin 4.1 Urine Color YELLOW Urine Appearance SLIGHTLY-CLOUDY Urine pH 6.0 Ur Specific Lowry 1.011 Urine Protein >=500 H Urine Glucose (UA) NEGATIVE Urine Ketones NEGATIVE Urine Blood SMALL H Urine Nitrite NEGATIVE Ur Leukocyte Esterase MODERATE H Urine WBC (Auto) 36 Urine RBC (Auto) 5 02/14/19 10:10 WBC RBC Hgb Hct MCV MCH MCHC RDW Plt Count Seg Neutrophils % Carbonic Acid 1.33 HCO3/H2CO3 Ratio 18:1 ABG pH 7.36 ABG pCO2 44.3 ABG pO2 65.4 L ABG HCO3 24.3 H ABG O2 Saturation 92.0 L ABG Base Excess -1.3 FiO2 30% Sodium Potassium Chloride Carbon Dioxide Anion Gap BUN Creatinine Est GFR ( Amer) Glucose Calcium Total Bilirubin AST Alkaline Phosphatase Total Protein Albumin Urine Color Urine Appearance Urine pH Ur Specific Lowry Urine Protein Urine Glucose (UA) Urine Ketones Urine Blood Urine Nitrite Ur Leukocyte Esterase Urine WBC (Auto) Urine RBC (Auto) 02/14/19 08:30 Troponin I < 0.012 NT-Pro-B Natriuret Pep 5640 H Impressions: Chest X-Ray 02/14/19 08:51 IMPRESSION: Cardiomegaly with mild pulmonary edema. Right upper lobe pneumonia. Foot X-Ray 02/14/19 08:56 IMPRESSION: 1. Diffuse soft tissue swelling about the foot without definitive evidence of osteomyelitis. Ulceration along the plantar aspect of the hindfoot. 2. Decreased osseous mineralization with degenerative changes as above. Assessment & Plan - Diagnosis (1) Lobar pneumonia Is this a current diagnosis for this admission?: Yes Plan: See admitting attending physician orders about details of care plan. (2) Chronic combined systolic and diastolic CHF (congestive heart failure) Is this a current diagnosis for this admission?: Yes Plan: See admitting attending physician orders about details of care plan. (3) Hypoxemia requiring supplemental oxygen Is this a current diagnosis for this admission?: Yes Plan: See admitting attending physician orders about details of care plan. (4) Abnormal urinalysis Is this a current diagnosis for this admission?: Yes Plan: See admitting attending physician orders about details of care plan. (5) Type 2 diabetes mellitus with foot ulcer Qualifiers: Diabetes mellitus [facility] insulin use: with emt intermediate use Qualified Code(s): E11.621 - Type 2 diabetes mellitus with foot ulcer; L97.509 - Non- pressure chronic ulcer of other part of unspecified foot with unspecified severity; Z79.4 - FDC (current) use of insulin Is this a current diagnosis for this admission?: Yes Plan: See admitting attending physician orders about details of care plan. (6) 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 2 diabetes mellitus Qualifiers: Diabetic foot ulcer location: heel Non-pressure ulcer stage: unspecified non-pressure ulcer stage Qualified Code(s): E11.621 - Type 2 diabetes mellitus with foot ulcer; L97.429 - Non-pressure chronic ulcer of left heel and midfoot with unspecified severity Is this a current diagnosis for this admission?: Yes Plan: See admitting attending physician orders about details of care plan. (7) Chronic stable angina Is this a current diagnosis for this admission?: Yes Plan: See admitting attending physician orders about details of care plan. (8) Hypertension Qualifiers: Hypertension type: essential hypertension Qualified Code(s): I10 - Essential (primary) hypertension Is this a current diagnosis for this admission?: Yes Plan: See admitting attending physician orders about details of care plan. (9) Hyperlipidemia Qualifiers: Hyperlipidemia type: unspecified Qualified Code(s): E78.5 - Hyperlipidemia, unspecified Is this a current diagnosis for this admission?: Yes Plan: See admitting attending physician orders about details of care plan. (10) Obesity (BMI 30-39.9) Is this a current diagnosis for this admission?: Yes Plan: See admitting attending physician orders about details of care plan. - Time Time Spent: 50 to 70 Minutes Medications reviewed and adjusted accordingly: Yes Anticipated discharge: Home with Homehealth Within: Other - Inpatient Certification Based on my medical assessment, after consideration of the patient's comorbidities, presenting symptoms, or acuity I expect that the services needed warrant INPATIENT care.: Yes I certify that my determination is in accordance with my understanding of Medicare's requirements for reasonable and necessary INPATIENT services [42 CFR 412.3e].: Yes Medical Necessity: Significant Comorbidiites Make Outpatient Treatment Too Risky, Need Close Monitoring Due to Risk of Patient Decompensation, Need For Continuous Telemetry Monitoring, Need for Nebulizer Therapy and Monitoring of Response, Need for IV Antibiotics, Risk of Complication if Not Cared For in Hospital, Risk of Diagnosis Which Will Require Inpatient Eval/Care/Monitoring Post Hospital Care: D/C [facility] [employer] Documentation - Plan Summary Plan Summary: See admitting attending physician orders about details of care plan.
[2019-02-14] MEDS ORDERED: DEXTROSE 50%-WATER 25 GM/50 ML DISP.SYRIN IV PRN ×2 (18:15)
[2019-02-14] MEDS ORDERED: DEXTROSE 40% GEL 15 GM TUBE PO PRN ×2 (18:15)
[2019-02-14] MEDS ORDERED: GLUCAGON,HUMAN RECOMB 1 MG INJ IM PRN (18:15)
[2019-02-14] MEDS: OXYCODONE HCL IR 5 MG TABLET PO PRN (19:07)
[2019-02-14] MEDS: OXYCODONE-ACETAMINOPHEN 5-325 MG TABLET PO PRN (19:08)
[2019-02-14] MEDS: APIXABAN 2.5 MG TABLET PO SCH (20:44)
--- NOTE | 2019-02-14 21:13 | EKG REPORT ---
SEVERITY:- ABNORMAL ECG - SINUS RHYTHM MULTIPLE VENTRICULAR PREMATURE COMPLEXES LVH WITH SECONDARY REPOLARIZATION ABNORMALITY : Confirmed by: Yobany Marino MD 14-Feb-2019 21:13:17
[2019-02-14] MEDS: ATORVASTATIN CALCIUM 20 MG TABLET PO SCH (21:35)
[2019-02-14] MEDS: INSULIN LISPRO 100 UNIT/ML 3 ML VIAL SUBCUT SCH (21:35)
[2019-02-14] MEDS: GABAPENTIN 100 MG CAPSULE PO SCH (21:35)
--- NOTE | 2019-02-14 22:26 | RADIOLOGY REPORT (SQ) ---
EXAM DESCRIPTION: CT CHEST WITHOUT IV CONTRAST COMPLETED DATE/TME: 02/14/2019 00:00 CLINICAL HISTORY: 63 years, Female, Abnormal Chest X ray for RUL Pneumonia COMPARISON: Noncontrast CT chest performed on 11/10/2017 TECHNIQUE: Noncontrast CT chest was performed. Coronal and sagittal reformations were created. Images stored on PACS. All CT scanners at this facility use dose modulation, iterative reconstruction, and/or weight based dosing when appropriate to reduce radiation dose to as low as reasonably achievable (ALARA). [facility]: Dose Right [facility]: CareDose [facility]: Dose Right [facility]: Teradose 4D [facility]: The [facility] LIMITATIONS: None. FINDINGS: Central airways are patent. Lung windows show multifocal consolidative and groundglass opacity throughout both lungs, most pronounced within the upper lobes. Elements of smooth interlobular septal thickening are noted about both lungs as well. Likewise, there are small bilateral pleural effusions with associated bibasilar atelectasis. Mediastinal windows show several mildly enlarged mediastinal and bilateral hilar lymph nodes. For example, there is an enlarged pretracheal lymph node measuring 2.0 x 2.1 cm in size in image 18 of series 3. An additional enlarged subcarinal lymph node is also evident measuring at least 2.0 x 1.5 cm in size on image 26 of series 3. The heart is enlarged. Calcifications are evident about the coronary vessels and thoracic aorta. The pulmonary artery is also enlarged, measuring 3.4 cm in short axis. Limited evaluation of the upper abdomen reveals a stable mildly prominent left periaortic lymph node on image 63 of series 3 measuring 1.7 x 1.2 cm in size, similar to the previous CT abdomen/pelvis dated 12/04/2018 and nonspecific. Otherwise, no suspicious findings are evident within the imaged upper abdomen. Bone windows show no destructive osseous lesions. IMPRESSION: Multifocal groundglass and consolidative opacity throughout both lungs, most pronounced within the upper lobes bilaterally with superimposed interlobular septal thickening and small bilateral pleural effusions/bibasilar atelectasis. Overall, findings are most likely indicative of pulmonary edema. However, a superimposed infectious process is also a possibility. Cardiomegaly with main pulmonary arterial enlargement. Correlate for pulmonary hypertension. Mediastinal lymphadenopathy, likely related to congestion. TECHNICAL DOCUMENTATION: Quality ID # 436: Final reports with documentation of one or more dose reduction techniques (e.g., Automated exposure control, adjustment of the mA and/or kV according to patient size, use of iterative reconstruction technique) copyright 2011 [employer]- All Rights Reserved
[2019-02-15] MEDS: OXYCODONE HCL IR 5 MG TABLET PO PRN ×4 (01:45→22:09)
[2019-02-15] MEDS: OXYCODONE-ACETAMINOPHEN 5-325 MG TABLET PO PRN ×4 (01:45→22:10)
[2019-02-15 05:06] LABS: ALBUMIN 3.3 g/dL (3.5-5.0); ALKALINE PHOSPHATASE 307 U/L (38-126); ANION GAP 8 (5-19); ASPARTATE AMINO TRANSFERASE 17 U/L (14-36); BILIRUBIN,DIRECT 0.3 mg/dL (0.0-0.4); BILIRUBIN,TOTAL 0.9 mg/dL (0.2-1.3); CALCIUM 9.2 mg/dL (8.4-10.2); CARBON DIOXIDE 26 mmol/L (22-30); CHLORIDE 106 mmol/L (98-107); CHOLESTEROL 151.42 mg/dL (0-200); POTASSIUM 4.4 mmol/L (3.6-5.0); TOTAL PROTEIN 8.1 g/dL (6.3-8.2); TRIGLYCERIDES 59 mg/dL (<150)
[2019-02-15 05:08] LABS: BLOOD UREA NITROGEN 23 mg/dL (7-20); GLUCOSE 139 mg/dL (75-110)
[2019-02-15 05:16] LABS: DIRECT LDL 95 mg/dL (<100)
[2019-02-15] MEDS: GABAPENTIN 100 MG CAPSULE PO SCH ×3 (05:19→22:08)
[2019-02-15 06:23] LABS: ABSOLUTE EOSINOPHILS # (AUTO) 0.1 10^3/uL (0.0-0.6); ABSOLUTE LYMPHOCYTES (AUTO) 1.6 10^3/uL (0.5-4.7); ABSOLUTE NEUT (AUTO) 5.9 10^3/uL (1.7-8.2); BASOPHILS % (AUTO) 0.5 % (0-2); EOSINOPHILS % (AUTO) 1.2 % (0-6); HEMATOCRIT 26.2 % (36.0-47.0); HEMOGLOBIN 8.4 g/dL (12.0-15.5); LYMPHOCYTES % (AUTO) 18.6 % (13-45); MEAN CORPUSCULAR VOLUME 91 fl (80-97); MONOCYTES % (AUTO) 11.2 % (3-13); PLATELET COUNT 310 10^3/uL (150-450); RED CELL DISTRIBUTION WIDTH 16.4 % (11.5-14.0); SEGMENTED NEUTROPHILS % (AUTO) 68.5 % (42-78); TOTAL CELLS COUNTED % (AUTO) 100 %; WHITE BLOOD COUNT 8.6 10^3/uL (4.0-10.5)
[2019-02-15] MEDS: INSULIN LISPRO 100 UNIT/ML 3 ML VIAL SUBCUT SCH ×4 (09:10→22:30)
[2019-02-15] MEDS: AMLODIPINE BESYLATE 10 MG TABLET PO SCH (09:38)
[2019-02-15] MEDS: FAMOTIDINE 20 MG TABLET PO SCH ×2 (09:38→20:07)
[2019-02-15] MEDS: VALSARTAN 160 MG TABLET PO SCH (09:39)
[2019-02-15] MEDS: FERROUS SULFATE 325 MG TABLET PO SCH (09:39)
[2019-02-15] MEDS: MULTIVITAMIN TABLET PO SCH (09:39)
[2019-02-15] MEDS: ASCORBIC ACID 500 MG TABLET PO SCH (09:40)
[2019-02-15] MEDS: CLOPIDOGREL BISULFATE 75 MG TABLET PO SCH (09:40)
[2019-02-15] MEDS: CEFTRIAXONE 1 GM/D5W RTU 1 GM/50 ML RTUPB IV SCH (09:41)
[2019-02-15] MEDS: DOCUSATE SODIUM 100 MG CAPSULE PO SCH ×2 (09:41→20:08)
[2019-02-15] MEDS: APIXABAN 2.5 MG TABLET PO SCH ×2 (09:44→20:08)
[2019-02-15] MEDS ORDERED: MULTIVIT CALC MINS PO SCH (10:00)
[2019-02-15] MEDS ORDERED: FUROSEMIDE 20 MG TABLET PO SCH (10:00)
[2019-02-15] MEDS ORDERED: FOLIC PO SCH (10:00)
[2019-02-15] MEDS ORDERED: IRON PO SCH (10:00)
[2019-02-15] MEDS: AZITHROMYCIN 500 MG in DEXTROSE 5%-WATER 250 ML IV SCH (12:43)
--- NOTE | 2019-02-15 13:52 | PDOC PROGRESS REPORT ---
Subjective Progress Note for:: 02/15/19 Subjective:: Patient seen by the bedside, she was admitted yesterday for the management of pneumonia CT chest was done yesterday it demonstrated multifocal groundglass and consolidative opacity throughout both lungs most pronounced within the upper lobe bilaterally with superimposed interlobular septal thickening and small bilateral pleural effusion/bibasilar atelectasis. She complain of feeling lightheaded Reason For Visit: RIGHT LOBAR PNEUMONIA, CHRONIC COMBINED CHF, Physical Exam Vital Signs: Temp Pulse Resp BP Pulse Ox 98.9 F 75 17 129/56 H 96 02/15/19 11:49 02/15/19 11:49 02/15/19 11:49 02/15/19 11:49 02/15/19 11:49 Intake & Output 02/14/19 02/15/19 02/16/19 06:59 06:59 06:59 Intake Total 290 50 Output Total 1878 Balance -1588 50 Weight 87.2 kg 87.2 kg General appearance: PRESENT: no acute distress, well-developed, well-nourished Head exam: PRESENT: atraumatic, normocephalic Eye exam: PRESENT: PERRLA Ear exam: PRESENT: normal external ear exam Mouth exam: PRESENT: moist, tongue midline Neck exam: PRESENT: full ROM Cardiovascular exam: PRESENT: RRR, +S1, +S2 Vascular exam: PRESENT: normal capillary refill GI/Abdominal exam: PRESENT: normal bowel sounds, soft Rectal exam: PRESENT: deferred Neurological exam: PRESENT: alert, CN II-XII grossly intact Psychiatric exam: PRESENT: appropriate affect, normal mood Skin exam: PRESENT: dry, intact, warm Results Laboratory Results: 02/15/19 05:51 02/15/19 04:11 02/15/19 02/15/19 02/15/19 04:11 04:11 05:51 WBC Cancelled 8.6 RBC Cancelled 2.90 L Hgb Cancelled 8.4 L Hct Cancelled 26.2 L MCV Cancelled 91 MCH Cancelled 29.0 MCHC Cancelled 32.0 RDW Cancelled 16.4 H Plt Count Cancelled 310 Seg Neutrophils % Cancelled 68.5 Sodium 139.9 Potassium 4.4 Chloride 106 Carbon Dioxide 26 Anion Gap 8 BUN 23 H Creatinine 0.74 Est GFR ( Amer) > 60 Glucose 139 H Calcium 9.2 Magnesium 1.9 Total Bilirubin 0.9 AST 17 Alkaline Phosphatase 307 H Total Protein 8.1 Albumin 3.3 L Triglycerides 59 Cholesterol 151.42 LDL Cholesterol Direct 95 VLDL Cholesterol 12.0 HDL Cholesterol 32 L 02/14/19 08:30 Troponin I < 0.012 NT-Pro-B Natriuret Pep 5640 H Impressions: Chest CT 02/14/19 00:00 IMPRESSION: Multifocal groundglass and consolidative opacity throughout both lungs, most pronounced within the upper lobes bilaterally with superimposed interlobular septal thickening and small bilateral pleural effusions/bibasilar atelectasis. Overall, findings are most likely indicative of pulmonary edema. However, a superimposed infectious process is also a possibility. Cardiomegaly with main pulmonary arterial enlargement. Correlate for pulmonary hypertension. Mediastinal lymphadenopathy, likely related to congestion. TECHNICAL DOCUMENTATION: Quality ID # 436: Final reports with documentation of one or more dose reduction techniques (e.g., Automated exposure control, adjustment of the mA and/or kV according to patient size, use of iterative reconstruction technique) copyright 2011 [employer]- All Rights Reserved Chest X-Ray 02/14/19 08:51 IMPRESSION: Cardiomegaly with mild pulmonary edema. Right upper lobe pneumonia. Foot X-Ray 02/14/19 08:56 IMPRESSION: 1. Diffuse soft tissue swelling about the foot without definitive evidence of osteomyelitis. Ulceration along the plantar aspect of the hindfoot. 2. Decreased osseous mineralization with degenerative changes as above. Assessment & Plan - Diagnosis (1) Bilateral pulmonary infiltrates on chest x-ray Is this a current diagnosis for this admission?: Yes Plan: She has a history of chronic systolic heart failure the bilateral pulmonary consolidative opacity could represent fluid, the BNP is elevated, clinically she does not look very distressed, it is probably reasonable to diurese after 24 hours with low-dose furosemide infusion (2) Lobar pneumonia Is this a current diagnosis for this admission?: Yes Plan: Continue IV antibiotic as prescribed - Time Time Spent with patient: 35 or more minutes
[2019-02-15] MEDS ORDERED: NORMAL SALINE 250 ML with FUROSEMIDE 250 MG IV PRN ×2 (13:53)
[2019-02-15] MEDS ORDERED: FUROSEMIDE INJ/PF 100 MG/10 ML SDV ONE (16:48)
[2019-02-15] MEDS: SIMETHICONE 80 MG TAB.CHEW PO SCH (20:07)
[2019-02-15] MEDS: ATORVASTATIN CALCIUM 20 MG TABLET PO SCH (22:09)
[2019-02-16] MEDS: SIMETHICONE 80 MG TAB.CHEW PO SCH ×4 (00:58→18:13)
[2019-02-16] MEDS: OXYCODONE-ACETAMINOPHEN 5-325 MG TABLET PO PRN ×3 (05:47→18:12)
[2019-02-16] MEDS: GABAPENTIN 100 MG CAPSULE PO SCH ×3 (05:48→22:10)
[2019-02-16] MEDS: OXYCODONE HCL IR 5 MG TABLET PO PRN ×3 (05:48→18:12)
[2019-02-16] MEDS: INSULIN LISPRO 100 UNIT/ML 3 ML VIAL SUBCUT SCH ×4 (08:53→22:09)
[2019-02-16] MEDS: FERROUS SULFATE 325 MG TABLET PO SCH (09:29)
[2019-02-16] MEDS: VALSARTAN 160 MG TABLET PO SCH (09:29)
[2019-02-16] MEDS: DOCUSATE SODIUM 100 MG CAPSULE PO SCH ×2 (09:29→18:13)
[2019-02-16] MEDS: FAMOTIDINE 20 MG TABLET PO SCH ×2 (09:29→18:13)
[2019-02-16] MEDS: ASCORBIC ACID 500 MG TABLET PO SCH (09:29)
[2019-02-16] MEDS: CEFTRIAXONE 1 GM/D5W RTU 1 GM/50 ML RTUPB IV SCH (09:29)
[2019-02-16] MEDS: CLOPIDOGREL BISULFATE 75 MG TABLET PO SCH (09:29)
[2019-02-16] MEDS: APIXABAN 2.5 MG TABLET PO SCH ×2 (09:29→18:13)
[2019-02-16] MEDS: MULTIVITAMIN TABLET PO SCH (09:29)
[2019-02-16] MEDS: AMLODIPINE BESYLATE 10 MG TABLET PO SCH (09:29)
--- NOTE | 2019-02-16 11:45 | RADIOLOGY REPORT (SQ) ---
EXAM DESCRIPTION: CHEST SINGLE VIEW COMPLETED DATE/TIME: 02/16/2019 11:26 am REASON FOR STUDY: pneumonia COMPARISON: 02/14/2019 NUMBER OF VIEWS: One view. TECHNIQUE: Single frontal radiographic image of the chest acquired. LIMITATIONS: None. FINDINGS: LUNGS AND PLEURA: Improved aeration in both lungs with residual diffuse interstitial patte rn. No consolidation. MEDIASTINUM AND HEART: Stable heart size and mediastinal structures. BONY STRUCTURES: No acute findings. HARDWARE: CABG. OTHER: No other significant finding. IMPRESSION: Improving pneumonia. TECHNICAL DOCUMENTATION: JOB ID: [id number] Reading location - IP/workstation name: [email or web address]
[2019-02-16] MEDS: AZITHROMYCIN 500 MG in DEXTROSE 5%-WATER 250 ML IV SCH (11:54)
--- NOTE | 2019-02-16 12:15 | PDOC PROGRESS REPORT ---
Subjective Progress Note for:: 02/16/19 Subjective:: Patient seen by the bedside, she is much better, yesterday the CAT scan of the lung that was done demonstrated diffuse opacity in both lung rangel that was more consistent with fluid, yesterday she was started on Lasix infusion, she is well diuresed the chest x-ray done today showed much improvement suggesting that this is more likely to be pulmonary edema are not pneumonia. The antibiotic will be discontinued, we will reduce Lasix infusion to 3 NG per hour. Reason For Visit: RIGHT LOBAR PNEUMONIA, CHRONIC COMBINED CHF, Physical Exam Vital Signs: Temp Pulse Resp BP Pulse Ox 97.8 F 75 17 138/59 H 95 02/16/19 07:50 02/16/19 07:50 02/16/19 07:50 02/16/19 07:50 02/16/19 08:43 Intake & Output 02/15/19 02/16/19 02/17/19 06:59 06:59 06:59 Intake Total 290 1280 50 Output Total 1878 1850 Balance -1588 -570 50 Weight 87.2 kg 82.4 kg General appearance: PRESENT: no acute distress, well-developed, well-nourished Head exam: PRESENT: atraumatic, normocephalic Eye exam: PRESENT: conjunctiva pink, EOMI, PERRLA Ear exam: PRESENT: normal external ear exam Mouth exam: PRESENT: moist, tongue midline Neck exam: PRESENT: full ROM Respiratory exam: PRESENT: clear to auscultation jerrica Cardiovascular exam: PRESENT: RRR, +S1, +S2 Pulses: PRESENT: normal dorsalis pedis pul, +2 pedal pulses bilateral Vascular exam: PRESENT: normal capillary refill GI/Abdominal exam: PRESENT: normal bowel sounds, soft Rectal exam: PRESENT: deferred Neurological exam: PRESENT: alert, awake, oriented to person, oriented to place, oriented to time, oriented to situation, CN II-XII grossly intact Psychiatric exam: PRESENT: appropriate affect, normal mood Skin exam: PRESENT: dry, intact, warm Results Laboratory Results: 02/15/19 05:51 02/15/19 04:11 02/14/19 11:00 Foot - Left Heel Gram Stain - Final 02/14/19 11:00 Foot - Left Heel Wound Culture - Final Morganella Morganii Group B Beta Streptococcus 02/14/19 10:10 Clean Catch Midstream Urine Culture - Final Mixed Urogenital Gabriella 02/14/19 08:30 Troponin I < 0.012 NT-Pro-B Natriuret Pep 5640 H Impressions: Chest CT 02/14/19 00:00 IMPRESSION: Multifocal groundglass and consolidative opacity throughout both lungs, most pronounced within the upper lobes bilaterally with superimposed interlobular septal thickening and small bilateral pleural effusions/bibasilar atelectasis. Overall, findings are most likely indicative of pulmonary edema. However, a superimposed infectious process is also a possibility. Cardiomegaly with main pulmonary arterial enlargement. Correlate for pulmonary hypertension. Mediastinal lymphadenopathy, likely related to congestion. TECHNICAL DOCUMENTATION: Quality ID # 436: Final reports with documentation of one or more dose reduction techniques (e.g., Automated exposure control, adjustment of the mA and/or kV according to patient size, use of iterative reconstruction technique) copyright 2011 [employer]- All Rights Reserved Foot X-Ray 02/14/19 08:56 IMPRESSION: 1. Diffuse soft tissue swelling about the foot without definitive evidence of osteomyelitis. Ulceration along the plantar aspect of the hindfoot. 2. Decreased osseous mineralization with degenerative changes as above. Chest X-Ray 02/16/19 10:50 IMPRESSION: Improving pneumonia. Assessment & Plan - Diagnosis (1) Acute pulmonary edema Is this a current diagnosis for this admission?: Yes Plan: She has pulmonary edema most likely from decompensated chronic systolic and diastolic heart failure. Patient was treated yesterday with IV furosemide infusion, she diuresed quite well, on admission she has crackles on auscultation of her chest, today on auscultation of the chest the lung is clear patient has no more chest symptoms. (2) Bilateral pulmonary infiltrates on chest x-ray Is this a current diagnosis for this admission?: Yes (3) Lobar pneumonia Is this a current diagnosis for this admission?: Yes - Time Time Spent with patient: 35 or more minutes - Plan Summary Plan Summary: Decrease Lasix drip to 2 mg/h Discontinue IV antibiotic Continue all other medications
[2019-02-16] MEDS: NORMAL SALINE 250 ML with FUROSEMIDE 250 MG IV PRN ×2 (18:13)
[2019-02-16] MEDS: PHARMACY COMMUNICATION ORDER MC SCH (18:14)
[2019-02-16] MEDS: ATORVASTATIN CALCIUM 20 MG TABLET PO SCH (22:10)
[2019-02-17] MEDS: OXYCODONE HCL IR 5 MG TABLET PO PRN ×4 (01:46→21:15)
[2019-02-17] MEDS: OXYCODONE-ACETAMINOPHEN 5-325 MG TABLET PO PRN ×4 (01:48→21:14)
[2019-02-17] MEDS: SIMETHICONE 80 MG TAB.CHEW PO SCH ×5 (02:57→23:32)
[2019-02-17] MEDS: GABAPENTIN 100 MG CAPSULE PO SCH ×3 (05:54→21:14)
[2019-02-17] MEDS: INSULIN LISPRO 100 UNIT/ML 3 ML VIAL SUBCUT SCH ×4 (07:59→21:45)
[2019-02-17] MEDS: FAMOTIDINE 20 MG TABLET PO SCH ×2 (09:11→17:05)
[2019-02-17] MEDS: ASCORBIC ACID 500 MG TABLET PO SCH (09:12)
[2019-02-17] MEDS: CLOPIDOGREL BISULFATE 75 MG TABLET PO SCH (09:12)
[2019-02-17] MEDS: POLYETHYLENE GLYCOL 3350 POWDER 17 GM/1 PACKET PO SCH (09:12)
[2019-02-17] MEDS: FERROUS SULFATE 325 MG TABLET PO SCH (09:12)
[2019-02-17] MEDS: DOCUSATE SODIUM 100 MG CAPSULE PO SCH ×2 (09:12→17:05)
[2019-02-17] MEDS: AMLODIPINE BESYLATE 10 MG TABLET PO SCH (09:12)
[2019-02-17] MEDS: VALSARTAN 160 MG TABLET PO SCH (09:12)
[2019-02-17] MEDS: APIXABAN 2.5 MG TABLET PO SCH ×2 (09:12→18:22)
[2019-02-17] MEDS: MULTIVITAMIN TABLET PO SCH (09:12)
[2019-02-17] MEDS: PHARMACY COMMUNICATION ORDER MC SCH (17:06)
[2019-02-17] MEDS: NORMAL SALINE 250 ML with FUROSEMIDE 250 MG IV PRN ×2 (17:09)
--- NOTE | 2019-02-17 18:00 | PDOC PROGRESS REPORT ---
Subjective Progress Note for:: 02/17/19 Subjective:: Patient denied any chest pain. Her breathing is improving. She remain on IV low dose Lasix infusion therapy. No nausea or vomiting. Still experience intermittent abdominal pain and requesting for increase in pain medication dosage. No fever or chills. Reason For Visit: RIGHT LOBAR PNEUMONIA, CHRONIC COMBINED CHF, Physical Exam Vital Signs: Temp Pulse Resp BP Pulse Ox 98.5 F 74 17 138/61 H 97 02/17/19 15:11 02/17/19 15:11 02/17/19 15:11 02/17/19 15:11 02/17/19 15:11 Intake & Output 02/16/19 02/17/19 02/18/19 06:59 06:59 06:59 Intake Total 5748 709 0027 Output Total 1850 3000 1500 Balance -570 -8408 -351 Weight 82.4 kg 86.4 kg General appearance: PRESENT: no acute distress, obese Head exam: PRESENT: atraumatic, normocephalic Eye exam: PRESENT: conjunctiva pink. ABSENT: scleral icterus Ear exam: PRESENT: normal external ear exam Mouth exam: PRESENT: moist Teeth exam: PRESENT: poor dentation Respiratory exam: PRESENT: clear to auscultation jerrica, decreased breath sounds - at lung bases Cardiovascular exam: PRESENT: RRR. ABSENT: diastolic murmur, rubs, systolic murmur Vascular exam: ABSENT: pallor GI/Abdominal exam: PRESENT: normal bowel sounds, soft, tenderness - nospecific lower suprapubic region tenderness to deep palpation. ABSENT: distended, guarding, mass, organolmegaly, rebound Extremities exam: ABSENT: pedal edema Musculoskeletal exam: PRESENT: deformity - relatred to joints involvement with arthritis Neurological exam: PRESENT: alert, awake, oriented to person, oriented to place, oriented to time, oriented to situation, CN II-XII grossly intact. ABSENT: motor sensory deficit Psychiatric exam: PRESENT: appropriate affect, normal mood. ABSENT: homicidal ideation, suicidal ideation Skin exam: PRESENT: dry, warm Results Laboratory Results: 02/15/19 05:51 02/15/19 04:11 02/14/19 08:30 Troponin I < 0.012 NT-Pro-B Natriuret Pep 5640 H Impressions: Chest CT 02/14/19 00:00 IMPRESSION: Multifocal groundglass and consolidative opacity throughout both lungs, most pronounced within the upper lobes bilaterally with superimposed interlobular septal thickening and small bilateral pleural effusions/bibasilar atelectasis. Overall, findings are most likely indicative of pulmonary edema. However, a superimposed infectious process is also a possibility. Cardiomegaly with main pulmonary arterial enlargement. Correlate for pulmonary hypertension. Mediastinal lymphadenopathy, likely related to congestion. TECHNICAL DOCUMENTATION: Quality ID # 436: Final reports with documentation of one or more dose reduction techniques (e.g., Automated exposure control, adjustment of the mA and/or kV according to patient size, use of iterative reconstruction technique) copyright 2011 [employer]- All Rights Reserved Foot X-Ray 02/14/19 08:56 IMPRESSION: 1. Diffuse soft tissue swelling about the foot without definitive evidence of osteomyelitis. Ulceration along the plantar aspect of the hindfoot. 2. Decreased osseous mineralization with degenerative changes as above. Chest X-Ray 02/16/19 10:50 IMPRESSION: Improving pneumonia. Assessment & Plan - Diagnosis (1) Lobar pneumonia Is this a current diagnosis for this admission?: Yes (2) Chronic combined systolic and diastolic CHF (congestive heart failure) Is this a current diagnosis for this admission?: Yes (3) Hypoxemia requiring supplemental oxygen Is this a current diagnosis for this admission?: Yes (4) Abnormal urinalysis Is this a current diagnosis for this admission?: Yes (5) Type 2 diabetes mellitus with foot ulcer Qualifiers: Diabetes mellitus assisted insulin use: with assisted use Qualified Code(s): E11.621 - Type 2 diabetes mellitus with foot ulcer; L97.509 - Non- pressure chronic ulcer of other part of unspecified foot with unspecified severity; Z79.4 - computer hardware developer (current) use of insulin Is this a current diagnosis for this admission?: Yes (6) 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 2 diabetes mellitus Qualifiers: Diabetic foot ulcer location: heel Non-pressure ulcer stage: unspecified non-pressure ulcer stage Qualified Code(s): E11.621 - Type 2 diabetes mellitus with foot ulcer; L97.429 - Non-pressure chronic ulcer of left heel and midfoot with unspecified severity Is this a current diagnosis for this admission?: Yes (7) Chronic stable angina Is this a current diagnosis for this admission?: Yes (8) Hypertension Qualifiers: Hypertension type: essential hypertension Qualified Code(s): I10 - Essential (primary) hypertension Is this a current diagnosis for this admission?: Yes (9) Hyperlipidemia Qualifiers: Hyperlipidemia type: unspecified Qualified Code(s): E78.5 - Hyperlipidemia, unspecified Is this a current diagnosis for this admission?: Yes (10) Obesity (BMI 30-39.9) Is this a current diagnosis for this admission?: Yes - Time Time Spent with patient: 25-34 minutes Medications reviewed and adjusted accordingly: Yes Anticipated discharge: Home with Homehealth Within: Other - Inpatient Certification Based on my medical assessment, after consideration of the patient's comorbidities, presenting symptoms, or acuity I expect that the services needed warrant INPATIENT care.: Yes I certify that my determination is in accordance with my understanding of Medicare's requirements for reasonable and necessary INPATIENT services [42 CFR 412.3e].: Yes Medical Necessity: Significant Comorbidiites Make Outpatient Treatment Too Risk y, Need Close Monitoring Due to Risk of Patient Decompensation, Need For Continuous Telemetry Monitoring, Need for IV Antibiotics, Risk of Complication if Not Cared For in Hospital, Risk of Diagnosis Which Will Require Inpatient Eval/Care/Monitoring Post Hospital Care: D/C Medical Data Analyst Documentation - Plan Summary Plan Summary: D/C IV Lasix infusion. Restart on Lasix 60 mg p.o daily from tomorrow am. Maintain on IV Zithromax ands Rocephin coverage. Follow up on blood and urine culture findings.
[2019-02-17] MEDS: CEFTRIAXONE 1 GM/D5W RTU 1 GM/50 ML RTUPB IV SCH (18:51)
[2019-02-17] MEDS: AZITHROMYCIN 500 MG in DEXTROSE 5%-WATER 250 ML IV SCH (21:13)
[2019-02-17] MEDS: ATORVASTATIN CALCIUM 20 MG TABLET PO SCH (21:14)
[2019-02-18] MEDS: OXYCODONE-ACETAMINOPHEN 5-325 MG TABLET PO PRN ×3 (03:28→19:10)
[2019-02-18] MEDS: OXYCODONE HCL IR 5 MG TABLET PO PRN ×3 (03:29→19:10)
[2019-02-18] MEDS: GABAPENTIN 100 MG CAPSULE PO SCH ×3 (05:36→23:36)
[2019-02-18] MEDS: SIMETHICONE 80 MG TAB.CHEW PO SCH ×4 (05:36→23:37)
[2019-02-18 05:48] LABS: ABSOLUTE BASOPHILS # (AUTO) 0.1 10^3/uL (0.0-0.2); ABSOLUTE EOSINOPHILS # (AUTO) 0.2 10^3/uL (0.0-0.6); ABSOLUTE LYMPHOCYTES (AUTO) 1.6 10^3/uL (0.5-4.7); ABSOLUTE MONOCYTES (AUTO) 0.6 10^3/uL (0.1-1.4); ABSOLUTE NEUT (AUTO) 4.2 10^3/uL (1.7-8.2); BASOPHILS % (AUTO) 1.1 % (0-2); EOSINOPHILS % (AUTO) 3.5 % (0-6); HEMATOCRIT 26.3 % (36.0-47.0); HEMOGLOBIN 8.6 g/dL (12.0-15.5); LYMPHOCYTES % (AUTO) 23.5 % (13-45); MEAN CORPUSCULAR HEMOGLOBIN 29.5 pg (27.0-33.4); MEAN CORPUSCULAR HGB CONC 32.7 g/dL (32.0-36.0); MEAN CORPUSCULAR VOLUME 90 fl (80-97); MONOCYTES % (AUTO) 8.8 % (3-13); PLATELET COUNT 301 10^3/uL (150-450); RED BLOOD COUNT 2.91 10^6/uL (3.72-5.28); RED CELL DISTRIBUTION WIDTH 16.5 % (11.5-14.0); SEGMENTED NEUTROPHILS % (AUTO) 63.1 % (42-78); TOTAL CELLS COUNTED % (AUTO) 100 %; WHITE BLOOD COUNT 6.7 10^3/uL (4.0-10.5)
[2019-02-18 06:03] LABS: ALBUMIN 3.6 g/dL (3.5-5.0); ALKALINE PHOSPHATASE 373 U/L (38-126); ANION GAP 7 (5-19); ASPARTATE AMINO TRANSFERASE 34 U/L (14-36); BILIRUBIN,DIRECT 0.4 mg/dL (0.0-0.4); BILIRUBIN,TOTAL 0.6 mg/dL (0.2-1.3); BLOOD UREA NITROGEN 37 mg/dL (7-20); CALCIUM 9.3 mg/dL (8.4-10.2); CARBON DIOXIDE 30 mmol/L (22-30); CHLORIDE 104 mmol/L (98-107); GLUCOSE 140 mg/dL (75-110); POTASSIUM 5.1 mmol/L (3.6-5.0); TOTAL PROTEIN 9.1 g/dL (6.3-8.2)
[2019-02-18] MEDS: INSULIN LISPRO 100 UNIT/ML 3 ML VIAL SUBCUT SCH ×4 (08:30→23:37)
[2019-02-18] MEDS: FUROSEMIDE 40 MG TABLET PO SCH (09:19)
[2019-02-18] MEDS: APIXABAN 2.5 MG TABLET PO SCH ×2 (09:19→17:16)
[2019-02-18] MEDS: CLOPIDOGREL BISULFATE 75 MG TABLET PO SCH (09:20)
[2019-02-18] MEDS: AMLODIPINE BESYLATE 10 MG TABLET PO SCH (09:20)
[2019-02-18] MEDS: POLYETHYLENE GLYCOL 3350 POWDER 17 GM/1 PACKET PO SCH (09:20)
[2019-02-18] MEDS: FERROUS SULFATE 325 MG TABLET PO SCH (09:20)
[2019-02-18] MEDS: MULTIVITAMIN TABLET PO SCH (09:20)
[2019-02-18] MEDS: FAMOTIDINE 20 MG TABLET PO SCH ×2 (09:20→17:13)
[2019-02-18] MEDS: VALSARTAN 160 MG TABLET PO SCH (09:20)
[2019-02-18] MEDS: ASCORBIC ACID 500 MG TABLET PO SCH (09:20)
[2019-02-18] MEDS: DOCUSATE SODIUM 100 MG CAPSULE PO SCH ×2 (09:20→17:14)
[2019-02-18] MEDS: PHARMACY COMMUNICATION ORDER MC SCH (17:09)
[2019-02-18] MEDS: CEFTRIAXONE 1 GM/D5W RTU 1 GM/50 ML RTUPB IV SCH (17:14)
--- NOTE | 2019-02-18 19:36 | PDOC PROGRESS REPORT ---
Subjective Progress Note for:: 02/18/19 Subjective:: Patient continue to expressed lower abdominal region chronic pain. No nausea or vomiting. Requesting Percocet administration on schedule. No fever or chills. No tarry or blood stool. She denied constipation or diarrhea. She denied any chest pain or difficulty with breathing. Reason For Visit: RIGHT LOBAR PNEUMONIA, CHRONIC COMBINED CHF, Physical Exam Vital Signs: Temp Pulse Resp BP Pulse Ox 98.4 F 73 16 167/70 H 100 02/18/19 04:31 02/18/19 06:39 02/18/19 04:31 02/18/19 04:31 02/18/19 04:31 Intake & Output 02/17/19 02/18/19 02/19/19 06:59 06:59 06:59 Intake Total 941 1406 Output Total 3000 2600 Balance -2058 Weight 86.4 kg 83.9 kg Physical Exam: General appearance: PRESENT: no acute distress, obese Head exam: PRESENT: atraumatic, normocephalic Eye exam: PRESENT: conjunctiva pink. ABSENT: pallor, scleral icterus Ear exam: PRESENT: normal external ear exam Mouth exam: PRESENT: moist Teeth exam: PRESENT: poor dentition Respiratory exam: PRESENT: clear to auscultation jerrica, decreased breath sounds - at lung bases Cardiovascular exam: PRESENT: RRR. ABSENT: diastolic murmur, rubs, systolic murmur GI/Abdominal exam: PRESENT: normal bowel sounds, soft, tenderness - nonspecific lower suprapubic region tenderness to deep palpation. ABSENT: distended, guarding, mass, organomegaly, rebound Extremities exam: ABSENT: pedal edema Musculoskeletal exam: PRESENT: deformity - related to joints involvement with arthritis Neurological exam: PRESENT: alert, awake, oriented to person, oriented to place, oriented to time, oriented to situation, CN II-XII grossly intact. ABSENT: motor sensory deficit Psychiatric exam: PRESENT: appropriate affect, normal mood. ABSENT: homicidal ideation, suicidal ideation Skin exam: PRESENT: dry, warm Results Laboratory Results: 02/18/19 05:02 02/18/19 05:02 02/18/19 02/18/19 05:02 05:02 WBC 6.7 RBC 2.91 L Hgb 8.6 L Hct 26.3 L MCV 90 MCH 29.5 MCHC 32.7 RDW 16.5 H Plt Count 301 Seg Neutrophils % 63.1 Sodium 140.9 Potassium 5.1 H Chloride 104 Carbon Dioxide 30 Anion Gap 7 BUN 37 H Creatinine 0.84 Est GFR ( Amer) > 60 Glucose 140 H Calcium 9.3 Total Bilirubin 0.6 AST 34 Alkaline Phosphatase 373 H Total Protein 9.1 H Albumin 3.6 02/14/19 08:30 Troponin I < 0.012 NT-Pro-B Natriuret Pep 5640 H Impressions: Chest CT 02/14/19 00:00 IMPRESSION: Multifocal groundglass and consolidative opacity throughout both lungs, most pronounced within the upper lobes bilaterally with superimposed interlobular septal thickening and small bilateral pleural effusions/bibasilar atelectasis. Overall, findings are most likely indicative of pulmonary edema. However, a superimposed infectious process is also a possibility. Cardiomegaly with main pulmonary arterial enlargement. Correlate for pulmonary hypertension. Mediastinal lymphadenopathy, likely related to congestion. TECHNICAL DOCUMENTATION: Quality ID # 436: Final reports with documentation of one or more dose reduction techniques (e.g., Automated exposure control, adjustment of the mA and/or kV according to patient size, use of iterative reconstruction technique) copyright 2011 [employer]- All Rights Reserved Foot X-Ray 02/14/19 08:56 IMPRESSION: 1. Diffuse soft tissue swelling about the foot without definitive evidence of osteomyelitis. Ulceration along the plantar aspect of the hindfoot. 2. Decreased osseous mineralization with degenerative changes as above. Chest X-Ray 02/16/19 10:50 IMPRESSION: Improving pneumonia. Assessment & Plan - Diagnosis (1) Lobar pneumonia Is this a current diagnosis for this admission?: Yes (2) Chronic combined systolic and diastolic CHF (congestive heart failure) Is this a current diagnosis for this admission?: Yes (3) Hypoxemia requiring supplemental oxygen Is this a current diagnosis for this admission?: Yes (4) Abnormal urinalysis Is this a current diagnosis for this admission?: Yes (5) Type 2 diabetes mellitus with foot ulcer Qualifiers: Diabetes mellitus rodent exterminator insulin use: with mcc use Qualified Code(s): E11.621 - Type 2 diabetes mellitus with foot ulcer; L97.509 - Non- pressure chronic ulcer of other part of unspecified foot with unspecified severity; Z79.4 - snf (current) use of insulin Is this a current diagnosis for this admission?: Yes (6) 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 2 diabetes mellitus Qualifiers: Diabetic foot ulcer location: heel Non-pressure ulcer stage: unspecified non-pressure ulcer stage Qualified Code(s): E11.621 - Type 2 diabetes mellitus with foot ulcer; L97.429 - Non-pressure chronic ulcer of left heel and midfoot with unspecified severity Is this a current diagnosis for this admission?: Yes (7) Chronic stable angina Is this a current diagnosis for this admission?: Yes (8) Hypertension Qualifiers: Hypertension type: essential hypertension Qualified Code(s): I10 - Essential (primary) hypertension Is this a current diagnosis for this admission?: Yes (9) Hyperlipidemia Qualifiers: Hyperlipidemia type: unspecified Qualified Code(s): E78.5 - Hyperlipidemia, unspecified Is this a current diagnosis for this admission?: Yes (10) Obesity (BMI 30-39.9) Is this a current diagnosis for this admission?: Yes (11) Abdominal pain, chronic, bilateral lower quadrant Is this a current diagnosis for this admission?: Yes Plan: This has been a longstanding issue with this patient. Her colonoscopy did revealed sigmoid diverticulosis and hemorrhoid. Her prior CTA chest/Abdomen was devoid of any significant abdominal arterial disease process. Nursing staff report of blood smear in her under pant may be related to hemorrhoid. I will obtain abdominal KUB for fecal burden assessment. If her symptom persist, I will request for GI consultation with Dr. Sosa who has consulted on this patient in the past. - Time Time Spent with patient: 25-34 minutes Medications reviewed and adjusted accordingly: Yes Anticipated discharge: Home with Homehealth Within: Other - Inpatient Certification Based on my medical assessment, after consideration of the patient's comorbidities, presenting symptoms, or acuity I expect that the services needed warrant INPATIENT care.: Yes I certify that my determination is in accordance with my understanding of Medicare's requirements for reasonable and necessary INPATIENT services [42 CFR 412.3e].: Yes Medical Necessity: Significant Comorbidiites Make Outpatient Treatment Too Risky, Need Close Monitoring Due to Risk of Patient Decompensation, Need For IV Fluids, Need For Continuous Telemetry Monitoring, Need for IV Antibiotics, Risk of Complication if Not Cared For in Hospital, Risk of Diagnosis Which Will Require Inpatient Eval/Care/Monitoring Post Hospital Care: D/C Insurance Sales Representative Documentation - Plan Summary Plan Summary: D/C Plavix administration due to unclear indication for continue use of this medication. SHe will continue low dose Eliquis for her vascular disease s/p vascular surgery intervention [facility]. Continue all other current medication management. Obtain KUB abdominal X ray evaluation. Obtain CBC with diff , CMP in AM.
[2019-02-18] MEDS: ATORVASTATIN CALCIUM 20 MG TABLET PO SCH (23:36)
[2019-02-18] MEDS: AZITHROMYCIN 500 MG in DEXTROSE 5%-WATER 250 ML IV SCH (23:37)
--- NOTE | 2019-02-19 00:52 | RADIOLOGY REPORT (SQ) ---
EXAM DESCRIPTION: X-ray abdomen 1 view CLINICAL DATA: Lower abdomen pain, rule out constipation. TECHNICAL DATA: A single AP supine x-ray of the abdomen was performed on 02/18/2019 at 9:29 PM. Comparison: CT abdomen and pelvis performed on 12/04/2018. FINDINGS: The bowel gas pattern is nonspecific and nonobstructive. There is mild to moderate fecal residue scattered throughout the colon. Arterial vascular calcifications are present along the aorta and major branch vessels. No abnormal air collections are identified on this supine image. No focal soft tissue abnormalities are seen. An intrauterine device projects over the central pelvis. No acute osseous abnormalities are identified. There are mild degenerative changes of the skeletal structures. IMPRESSION: 1. Nonspecific nonobstructive bowel gas pattern. There is mild to moderate fecal residue scattered throughout the colon 2. Arterial vascular calcifications. 3. Intrauterine device projects over the central pelvis. 4. Mild degenerative changes of the skeletal structures.
[2019-02-19] MEDS: OXYCODONE-ACETAMINOPHEN 5-325 MG TABLET PO PRN ×3 (01:40→18:24)
[2019-02-19] MEDS: OXYCODONE HCL IR 5 MG TABLET PO PRN ×3 (01:40→18:24)
[2019-02-19] MEDS: SIMETHICONE 80 MG TAB.CHEW PO SCH ×3 (05:07→18:22)
[2019-02-19] MEDS: GABAPENTIN 100 MG CAPSULE PO SCH ×3 (05:07→21:16)
--- NOTE | 2019-02-19 07:53 | PDOC PROGRESS REPORT ---
Subjective Progress Note for:: 02/19/19 Subjective:: She denied any chest pain or difficulty with breathing. No fever or chills. No nausea or vomiting. Abdominal is better with current pain medication administration. Reason For Visit: RIGHT LOBAR PNEUMONIA, CHRONIC COMBINED CHF, Physical Exam Vital Signs: Temp Pulse Resp BP Pulse Ox 99 F 67 15 121/51 L 98 02/19/19 04:00 02/19/19 07:00 02/19/19 04:00 02/19/19 04:00 02/19/19 04:00 Intake & Output 02/18/19 02/19/19 02/20/19 06:59 06:59 06:59 Intake Total 1406 1020 Output Total 2600 1825 Balance -1194 -805 Weight 83.9 kg 81.8 kg Physical Exam: General appearance: PRESENT: no acute distress, obese Head exam: PRESENT: atraumatic, normocephalic Eye exam: PRESENT: conjunctiva pink. ABSENT: pallor, scleral icterus Ear exam: PRESENT: normal external ear exam Mouth exam: PRESENT: moist Teeth exam: PRESENT: poor dentition Respiratory exam: PRESENT: clear to auscultation jerrica, decreased breath sounds - at lung bases Cardiovascular exam: PRESENT: RRR. ABSENT: diastolic murmur, rubs, systolic murmur GI/Abdominal exam: PRESENT: normal bowel sounds, soft. ABSENT: distended, tenderness, guarding, mass, organomegaly, rebound Extremities exam: ABSENT: pedal edema Musculoskeletal exam: PRESENT: deformity - related to joints involvement with arthritis Neurological exam: PRESENT: alert, awake, oriented to person, oriented to place, oriented to time, oriented to situation, CN II-XII grossly intact. ABSENT: motor sensory deficit Psychiatric exam: PRESENT: appropriate affect, normal mood. ABSENT: homicidal ideation, suicidal ideation Skin exam: PRESENT: dry, warm Results Laboratory Results: 02/18/19 05:02 02/18/19 05:02 02/14/19 08:30 Troponin I < 0.012 NT-Pro-B Natriuret Pep 5640 H Impressions: Chest CT 02/14/19 00:00 IMPRESSION: Multifocal groundglass and consolidative opacity throughout both lungs, most pronounced within the upper lobes bilaterally with superimposed interlobular septal thickening and small bilateral pleural effusions/bibasilar atelectasis. Overall, findings are most likely indicative of pulmonary edema. However, a superimposed infectious process is also a possibility. Cardiomegaly with main pulmonary arterial enlargement. Correlate for pulmonary hypertension. Mediastinal lymphadenopathy, likely related to congestion. TECHNICAL DOCUMENTATION: Quality ID # 436: Final reports with documentation of one or more dose reduction techniques (e.g., Automated exposure control, adjustment of the mA and/or kV according to patient size, use of iterative reconstruction technique) copyright 2011 [employer]- All Rights Reserved Foot X-Ray 02/14/19 08:56 IMPRESSION: 1. Diffuse soft tissue swelling about the foot without definitive evidence of osteomyelitis. Ulceration along the plantar aspect of the hindfoot. 2. Decreased osseous mineralization with degenerative changes as above. Chest X-Ray 02/16/19 10:50 IMPRESSION: Improving pneumonia. KUB X-Ray 02/18/19 00:00 IMPRESSION: 1. Nonspecific nonobstructive bowel gas pattern. There is mild to moderate fecal residue scattered throughout the colon 2. Arterial vascular calcifications. 3. Intrauterine device projects over the central pelvis. 4. Mild degenerative changes of the skeletal structures. Assessment & Plan - Diagnosis (1) Lobar pneumonia Is this a current diagnosis for this admission?: Yes (2) Chronic combined systolic and diastolic CHF (congestive heart failure) Is this a current diagnosis for this admission?: Yes (3) Hypoxemia requiring supplemental oxygen Is this a current diagnosis for this admission?: Yes (4) Abnormal urinalysis Is this a current diagnosis for this admission?: Yes (5) Type 2 diabetes mellitus with foot ulcer Qualifiers: Diabetes mellitus intermediate project manager insulin use: with prison use Qualified Code(s): E11.621 - Type 2 diabetes mellitus with foot ulcer; L97.509 - Non- pressure chronic ulcer of other part of unspecified foot with unspecified severity; Z79.4 - intermediate project manager (current) use of insulin Is this a current diagnosis for this admission?: Yes (6) 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 2 diabetes mellitus Qualifiers: Diabetic foot ulcer location: heel Non-pressure ulcer stage: unspecified non-pressure ulcer stage Qualified Code(s): E11.621 - Type 2 diabetes mellitus with foot ulcer; L97.429 - Non-pressure chronic ulcer of left heel and midfoot with unspecified severity Is this a current diagnosis for this admission?: Yes (7) Chronic stable angina Is this a current diagnosis for this admission?: Yes (8) Hypertension Qualifiers: Hypertension type: essential hypertension Qualified Code(s): I10 - Essenti al (primary) hypertension Is this a current diagnosis for this admission?: Yes (9) Hyperlipidemia Qualifiers: Hyperlipidemia type: unspecified Qualified Code(s): E78.5 - Hyperlipidemia, unspecified Is this a current diagnosis for this admission?: Yes (10) Obesity (BMI 30-39.9) Is this a current diagnosis for this admission?: Yes (11) Abdominal pain, chronic, bilateral lower quadrant Is this a current diagnosis for this admission?: Yes - Time Time Spent with patient: 25-34 minutes Medications reviewed and adjusted accordingly: Yes Anticipated discharge: Home with Homehealth Within: Other - Inpatient Certification Based on my medical assessment, after consideration of the patient's comorbidities, presenting symptoms, or acuity I expect that the services needed warrant INPATIENT care.: Yes I certify that my determination is in accordance with my understanding of Medicare's requirements for reasonable and necessary INPATIENT services [42 CFR 412.3e].: Yes Medical Necessity: Significant Comorbidiites Make Outpatient Treatment Too Risky, Need Close Monitoring Due to Risk of Patient Decompensation, Need For IV Fluids, Need For Continuous Telemetry Monitoring, Need for IV Antibiotics, Risk of Complication if Not Cared For in Hospital, Risk of Diagnosis Which Will Requi re Inpatient Eval/Care/Monitoring Post Hospital Care: D/C Sales Director 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 Administer Dulcolax 10mg SD x 1 dose.
[2019-02-19] MEDS: INSULIN LISPRO 100 UNIT/ML 3 ML VIAL SUBCUT SCH ×4 (08:34→21:16)
[2019-02-19] MEDS: MULTIVITAMIN TABLET PO SCH (09:09)
[2019-02-19] MEDS: ASCORBIC ACID 500 MG TABLET PO SCH (09:10)
[2019-02-19] MEDS: AMLODIPINE BESYLATE 10 MG TABLET PO SCH (09:10)
[2019-02-19] MEDS: FERROUS SULFATE 325 MG TABLET PO SCH (09:10)
[2019-02-19] MEDS: DOCUSATE SODIUM 100 MG CAPSULE PO SCH ×2 (09:10→18:22)
[2019-02-19] MEDS: POLYETHYLENE GLYCOL 3350 POWDER 17 GM/1 PACKET PO SCH (09:10)
[2019-02-19] MEDS: APIXABAN 2.5 MG TABLET PO SCH ×2 (09:10→18:22)
[2019-02-19] MEDS: FAMOTIDINE 20 MG TABLET PO SCH ×2 (09:10→18:22)
[2019-02-19] MEDS: FUROSEMIDE 40 MG TABLET PO SCH (09:10)
[2019-02-19] MEDS: VALSARTAN 160 MG TABLET PO SCH (09:10)
[2019-02-19] MEDS: PHARMACY COMMUNICATION ORDER MC SCH (18:21)
[2019-02-19] MEDS: CEFTRIAXONE 1 GM/D5W RTU 1 GM/50 ML RTUPB IV SCH (18:22)
[2019-02-19] MEDS: ATORVASTATIN CALCIUM 20 MG TABLET PO SCH (21:16)
[2019-02-19] MEDS: AZITHROMYCIN 500 MG in DEXTROSE 5%-WATER 250 ML IV SCH (21:17)
[2019-02-20] MEDS: OXYCODONE HCL IR 5 MG TABLET PO PRN ×4 (00:21→20:38)
[2019-02-20] MEDS: OXYCODONE-ACETAMINOPHEN 5-325 MG TABLET PO PRN ×4 (00:22→20:37)
[2019-02-20] MEDS: SIMETHICONE 80 MG TAB.CHEW PO SCH ×4 (03:32→18:04)
[2019-02-20] MEDS: GABAPENTIN 100 MG CAPSULE PO SCH ×3 (06:19→22:22)
[2019-02-20] MEDS: INSULIN LISPRO 100 UNIT/ML 3 ML VIAL SUBCUT SCH ×4 (08:13→22:22)
[2019-02-20] MEDS: POLYETHYLENE GLYCOL 3350 POWDER 17 GM/1 PACKET PO SCH (09:25)
[2019-02-20] MEDS: FERROUS SULFATE 325 MG TABLET PO SCH (09:27)
[2019-02-20] MEDS: FUROSEMIDE 40 MG TABLET PO SCH (09:27)
[2019-02-20] MEDS: ASCORBIC ACID 500 MG TABLET PO SCH (09:27)
[2019-02-20] MEDS: FAMOTIDINE 20 MG TABLET PO SCH ×2 (09:28→18:04)
[2019-02-20] MEDS: DOCUSATE SODIUM 100 MG CAPSULE PO SCH ×2 (09:28→18:04)
[2019-02-20] MEDS: MULTIVITAMIN TABLET PO SCH (09:28)
[2019-02-20] MEDS: AMLODIPINE BESYLATE 10 MG TABLET PO SCH (09:28)
[2019-02-20] MEDS: VALSARTAN 160 MG TABLET PO SCH (09:28)
[2019-02-20] MEDS: APIXABAN 2.5 MG TABLET PO SCH ×2 (09:29→18:04)
--- NOTE | 2019-02-20 17:01 | PDOC PROGRESS REPORT ---
Subjective Progress Note for:: 02/20/19 Subjective:: No chest pain or difficulty with breathing. No fever or chills. No abdominal pain, nausea or vomiting. Reason For Visit: RIGHT LOBAR PNEUMONIA, CHRONIC COMBINED CHF, Physical Exam Vital Signs: Temp Pulse Resp BP Pulse Ox 98.0 F 67 17 133/67 H 99 02/20/19 07:23 02/20/19 07:23 02/20/19 07:23 02/20/19 07:23 02/20/19 07:23 Intake & Output 02/19/19 02/20/19 02/21/19 06:59 06:59 06:59 Intake Total 1020 1257 Output Total 1825 1100 Balance -805 157 Weight 81.8 kg 83.9 kg Physical Exam: General appearance: PRESENT: no acute distress, obese Head exam: PRESENT: atraumatic, normocephalic Eye exam: PRESENT: conjunctiva pink. ABSENT: pallor, scleral icterus Ear exam: PRESENT: normal external ear exam Mouth exam: PRESENT: moist Teeth exam: PRESENT: poor dentition Respiratory exam: PRESENT: clear to auscultation jerrica, decreased breath sounds - at lung bases Cardiovascular exam: PRESENT: RRR. ABSENT: diastolic murmur, rubs, systolic murmur GI/Abdominal exam: PRESENT: normal bowel sounds, soft. ABSENT: distended, tenderness, guarding, mass, organomegaly, rebound Extremities exam: ABSENT: pedal edema Musculoskeletal exam: PRESENT: deformity - related to joints involvement with arthritis Neurological exam: PRESENT: alert, awake, oriented to person, oriented to place, oriented to time, oriented to situation, CN II-XII grossly intact. ABSENT: motor sensory deficit Psychiatric exam: PRESENT: appropriate affect, normal mood. ABSENT: homicidal ideation, suicidal ideation Skin exam: PRESENT: dry, warm Results Laboratory Results: 02/18/19 05:02 02/18/19 05:02 02/14/19 13:18 Blood Blood Culture - Final NO GROWTH IN 5 DAYS 02/14/19 08:30 Troponin I < 0.012 NT-Pro-B Natriuret Pep 5640 H Impressions: Chest CT 02/14/19 00:00 IMPRESSION: Multifocal groundglass and consolidative opacity throughout both lungs, most pronounced within the upper lobes bilaterally with superimposed interlobular septal thickening and small bilateral pleural effusions/bibasilar atelectasis. Overall, findings are most likely indicative of pulmonary edema. However, a superimposed infectious process is also a possibility. Cardiomegaly with main pulmonary arterial enlargement. Correlate for pulmonary hypertension. Mediastinal lymphadenopathy, likely related to congestion. TECHNICAL DOCUMENTATION: Quality ID # 436: Final reports with documentation of one or more dose reduction techniques (e.g., Automated exposure control, adjustment of the mA and/or kV according to patient size, use of iterative reconstruction technique) copyright 2011 [email or web address]- All Rights Reserved Foot X-Ray 02/14/19 08:56 IMPRESSION: 1. Diffuse soft tissue swelling about the foot without definitive evidence of osteomyelitis. Ulceration along the plantar aspect of the hindfoot. 2. Decreased osseous mineralization with degenerative changes as above. Chest X-Ray 02/16/19 10:50 IMPRESSION: Improving pneumonia. KUB X-Ray 02/18/19 00:00 IMPRESSION: 1. Nonspecific nonobstructive bowel gas pattern. There is mild to moderate fecal residue scattered throughout the colon 2. Arterial vascular calcifications. 3. Intrauterine device projects over the central pelvis. 4. Mild degenerative changes of the skeletal structures. Assessment & Plan - Diagnosis (1) Lobar pneumonia Is this a current diagnosis for this admission?: Yes (2) Chronic combined systolic and diastolic CHF (congestive heart failure) Is this a current diagnosis for this admission?: Yes (3) Hypoxemia requiring supplemental oxygen Is this a current diagnosis for this admission?: Yes (4) Abnormal urinalysis Is this a current diagnosis for this admission?: Yes (5) Type 2 diabetes mellitus with foot ulcer Qualifiers: Diabetes mellitus shelter insulin use: with terminal system operator use Qualified Code(s): E11.621 - Type 2 diabetes mellitus with foot ulcer; L97.509 - Non- pressure chronic ulcer of other part of unspecified foot with unspecified severity; Z79.4 - intermediate project manager (current) use of insulin Is this a current diagnosis for this admission?: Yes (6) 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 2 diabetes mellitus Qualifiers: Diabetic foot ulcer location: heel Non-pressure ulcer stage: unspecified non-pressure ulcer stage Qualified Code(s): E11.621 - Type 2 diabetes mellitus with foot ulcer; L97.429 - Non-pressure chronic ulcer of left heel and midfoot with unspecified severity Is this a current diagnosis for this admission?: Yes (7) Chronic stable angina Is this a current diagnosis for this admission?: Yes (8) Hypertension Qualifiers: Hypertension type: essential hypertension Qualified Code(s): I10 - Essential (primary) hypertension Is this a current diagnosis for this admission?: Yes (9) Hyperlipidemia Qualifiers: Hyperlipidemia type: unspecified Qualified Code(s): E78.5 - Hyperlipidemia, unspecified Is this a current diagnosis for this admission?: Yes (10) Obesity (BMI 30-39.9) Is this a current diagnosis for this admission?: Yes (11) Abdominal pain, chronic, bilateral lower quadrant Is this a current diagnosis for this admission?: Yes - Time Time Spent with patient: 25-34 minutes Medications reviewed and adjusted accordingly: Yes Anticipated discharge: Home with Homehealth Within: Other - Inpatient Certification Based on my medical assessment, after consideration of the patient's comorbidities, presenting symptoms, or acuity I expect that the services needed warrant INPATIENT care.: Yes I certify that my determination is in accordance with my understanding of Medicare's requirements for reasonable and necessary INPATIENT services [42 CFR 412.3e].: Yes Medical Necessity: Significant Comorbidiites Make Outpatient Treatment Too [place]is [place], Need Close Monitoring Due to Risk of Patient Decompensation, Need For IV Fluids, Need For Continuous Telemetry Monitoring, Need for Pain Control, Need for IV Antibiotics, Risk of Complication if Not Cared For in Hospital, Risk of Diagnosis Which Will Require Inpatient Eval/Care/Monitoring Post Hospital Care: D/C Flight Tower Dispatcher Documentation - Plan Summary Plan Summary: D/C IV Rocephin and Zithromax. Start on Levofloxacin 500 mg p.o daily from tomorrow. Obtain CBC with diff, BMP. Start on Diflucan 150 mg po x 1 dose for suspected yeast UTI. D/C Lantigua catheter. I discussed possible discharge home tomorrow on oral antibiotic and [facility] services.
[2019-02-20 18:01] LABS: ANION GAP 11 (5-19); BLOOD UREA NITROGEN 38 mg/dL (7-20); CALCIUM 9.7 mg/dL (8.4-10.2); CARBON DIOXIDE 27 mmol/L (22-30); CHLORIDE 103 mmol/L (98-107); GLUCOSE 111 mg/dL (75-110); POTASSIUM 5.6 mmol/L (3.6-5.0)
[2019-02-20 18:08] LABS: ABSOLUTE BASOPHILS # (AUTO) 0.1 10^3/uL (0.0-0.2); ABSOLUTE EOSINOPHILS # (AUTO) 0.2 10^3/uL (0.0-0.6); ABSOLUTE LYMPHOCYTES (AUTO) 1.3 10^3/uL (0.5-4.7); ABSOLUTE MONOCYTES (AUTO) 0.6 10^3/uL (0.1-1.4); ABSOLUTE NEUT (AUTO) 4.4 10^3/uL (1.7-8.2); BASOPHILS % (AUTO) 0.9 % (0-2); EOSINOPHILS % (AUTO) 3.5 % (0-6); HEMATOCRIT 25.3 % (36.0-47.0); HEMOGLOBIN 8.1 g/dL (12.0-15.5); MEAN CORPUSCULAR HEMOGLOBIN 29.2 pg (27.0-33.4); MEAN CORPUSCULAR HGB CONC 32.1 g/dL (32.0-36.0); MEAN CORPUSCULAR VOLUME 91 fl (80-97); MONOCYTES % (AUTO) 8.8 % (3-13); PLATELET COUNT 280 10^3/uL (150-450); RED BLOOD COUNT 2.79 10^6/uL (3.72-5.28); RED CELL DISTRIBUTION WIDTH 16.7 % (11.5-14.0); SEGMENTED NEUTROPHILS % (AUTO) 66.8 % (42-78); TOTAL CELLS COUNTED % (AUTO) 100 %; WHITE BLOOD COUNT 6.5 10^3/uL (4.0-10.5)
[2019-02-20] MEDS ORDERED: FLUCONAZOLE 100 MG TABLET PO ONE (18:30)
[2019-02-20] MEDS: ATORVASTATIN CALCIUM 20 MG TABLET PO SCH (22:21)
[2019-02-21] MEDS: SIMETHICONE 80 MG TAB.CHEW PO SCH ×4 (02:29→18:34)
[2019-02-21] MEDS: OXYCODONE HCL IR 5 MG TABLET PO PRN ×3 (02:53→18:33)
[2019-02-21] MEDS: OXYCODONE-ACETAMINOPHEN 5-325 MG TABLET PO PRN ×3 (02:53→18:32)
[2019-02-21] MEDS: GABAPENTIN 100 MG CAPSULE PO SCH ×3 (05:52→21:25)
[2019-02-21] MEDS: INSULIN LISPRO 100 UNIT/ML 3 ML VIAL SUBCUT SCH ×4 (09:00→21:22)
[2019-02-21 10:57] LABS: ABSOLUTE BASOPHILS # (AUTO) 0.1 10^3/uL (0.0-0.2); ABSOLUTE EOSINOPHILS # (AUTO) 0.2 10^3/uL (0.0-0.6); ABSOLUTE LYMPHOCYTES (AUTO) 1.3 10^3/uL (0.5-4.7); ABSOLUTE MONOCYTES (AUTO) 0.6 10^3/uL (0.1-1.4); ABSOLUTE NEUT (AUTO) 4.3 10^3/uL (1.7-8.2); BASOPHILS % (AUTO) 0.8 % (0-2); EOSINOPHILS % (AUTO) 3.7 % (0-6); HEMATOCRIT 25.1 % (36.0-47.0); HEMOGLOBIN 8.1 g/dL (12.0-15.5); LYMPHOCYTES % (AUTO) 19.6 % (13-45); MEAN CORPUSCULAR HEMOGLOBIN 29.4 pg (27.0-33.4); MEAN CORPUSCULAR HGB CONC 32.1 g/dL (32.0-36.0); MEAN CORPUSCULAR VOLUME 92 fl (80-97); MONOCYTES % (AUTO) 8.6 % (3-13); PLATELET COUNT 263 10^3/uL (150-450); RED BLOOD COUNT 2.74 10^6/uL (3.72-5.28); RED CELL DISTRIBUTION WIDTH 16.8 % (11.5-14.0); SEGMENTED NEUTROPHILS % (AUTO) 67.3 % (42-78); TOTAL CELLS COUNTED % (AUTO) 100 %; WHITE BLOOD COUNT 6.4 10^3/uL (4.0-10.5)
[2019-02-21] MEDS: FUROSEMIDE 40 MG TABLET PO SCH (11:16)
[2019-02-21] MEDS: DOCUSATE SODIUM 100 MG CAPSULE PO SCH ×2 (11:18→18:31)
[2019-02-21] MEDS: LEVOFLOXACIN 500 MG TABLET PO SCH (11:18)
[2019-02-21] MEDS: FAMOTIDINE 20 MG TABLET PO SCH ×2 (11:19→18:34)
[2019-02-21] MEDS: VALSARTAN 160 MG TABLET PO SCH (11:19)
[2019-02-21 11:20] LABS: ANION GAP 9 (5-19); BLOOD UREA NITROGEN 42 mg/dL (7-20); CALCIUM 9.5 mg/dL (8.4-10.2); CARBON DIOXIDE 28 mmol/L (22-30); CHLORIDE 104 mmol/L (98-107); GLUCOSE 167 mg/dL (75-110); POTASSIUM 5.3 mmol/L (3.6-5.0)
[2019-02-21] MEDS: APIXABAN 2.5 MG TABLET PO SCH ×2 (11:20→18:34)
[2019-02-21] MEDS: AMLODIPINE BESYLATE 10 MG TABLET PO SCH (11:20)
[2019-02-21] MEDS: POLYETHYLENE GLYCOL 3350 POWDER 17 GM/1 PACKET PO SCH (11:25)
[2019-02-21] MEDS: MULTIVITAMIN TABLET PO SCH (12:35)
[2019-02-21] MEDS: FERROUS SULFATE 325 MG TABLET PO SCH (12:36)
[2019-02-21] MEDS: ASCORBIC ACID 500 MG TABLET PO SCH (12:36)
[2019-02-21] MEDS ORDERED: NORMAL SALINE 250 ML IV PRN (15:19)
--- NOTE | 2019-02-21 15:19 | PDOC PROGRESS REPORT ---
Subjective Progress Note for:: 02/21/19 Subjective:: No chest pain or difficulty with breathing. No fever or chills. No abdominal pain, nausea or vomiting. Currently, she denied any blood in her stool. Reason For Visit: RIGHT LOBAR PNEUMONIA, CHRONIC COMBINED CHF, Physical Exam Vital Signs: Temp Pulse Resp BP Pulse Ox 97.9 F 75 17 132/54 H 100 02/21/19 11:04 02/21/19 11:04 02/21/19 11:04 02/21/19 11:04 02/21/19 11:04 Intake & Output 02/20/19 02/21/19 02/22/19 06:59 06:59 06:59 Intake Total 1257 960 480 Output Total 1100 1150 Balance 157 -190 480 Weight 83.9 kg 84.4 kg Physical Exam: General appearance: PRESENT: no acute distress, obese Head exam: PRESENT: atraumatic, normocephalic Eye exam: PRESENT: conjunctiva pink. ABSENT: pallor, scleral icterus Ear exam: PRESENT: normal external ear exam Mouth exam: PRESENT: moist Teeth exam: PRESENT: poor dentition Respiratory exam: PRESENT: clear to auscultation jerrica, decreased breath sounds - at lung bases Cardiovascular exam: PRESENT: RRR. ABSENT: diastolic murmur, rubs, systolic murmur GI/Abdominal exam: PRESENT: normal bowel sounds, soft. ABSENT: distended, tenderness, guarding, mass, organomegaly, rebound Extremities exam: ABSENT: pedal edema Musculoskeletal exam: PRESENT: deformity - related to joints involvement with arthritis Neurological exam: PRESENT: alert, awake, oriented to person, oriented to place, oriented to time, oriented to situation, CN II-XII grossly intact. ABSENT: motor sensory deficit Psychiatric exam: PRESENT: appropriate affect, normal mood. ABSENT: homicidal ideation, suicidal ideation Skin exam: PRESENT: dry, warm Results Laboratory Results: 02/21/19 10:27 02/21/19 10:27 02/20/19 02/20/19 02/21/19 17:25 17:25 10:27 WBC 6.5 6.4 RBC 2.79 L 2.74 L Hgb 8.1 L 8.1 L Hct 25.3 L 25.1 L MCV 91 92 MCH 29.2 29.4 MCHC 32.1 32.1 RDW 16.7 H 16.8 H Plt Count 280 263 Seg Neutrophils % 66.8 67.3 Sodium 140.8 Potassium 5.6 H Chloride 103 Carbon Dioxide 27 Anion Gap 11 BUN 38 H Creatinine 1.07 Est GFR ( Amer) > 60 Glucose 111 H Calcium 9.7 02/21/19 10:27 WBC RBC Hgb Hct MCV MCH MCHC RDW Plt Count Seg Neutrophils % Sodium 140.9 Potassium 5.3 H Chloride 104 Carbon Dioxide 28 Anion Gap 9 BUN 42 H Creatinine 1.03 Est GFR ( Amer) > 60 Glucose 167 H Calcium 9.5 02/14/19 08:30 Troponin I < 0.012 NT-Pro-B Natriuret Pep 5640 H Impressions: Chest CT 02/14/19 00:00 IMPRESSION: Multifocal groundglass and consolidative opacity throughout both lungs, most pronounced within the upper lobes bilaterally with superimposed interlobular septal thickening and small bilateral pleural effusions/bibasilar atelectasis. Overall, findings are most likely indicative of pulmonary edema. However, a superimposed infectious process is also a possibility. Cardiomegaly with main pulmonary arterial enlargement. Correlate for pulmonary hypertension. Mediastinal lymphadenopathy, likely related to congestion. TECHNICAL DOCUMENTATION: Quality ID # 436: Final reports with documentation of one or more dose reduction techniques (e.g., Automated exposure control, adjustment of the mA and/or kV according to patient size, use of iterative reconstruction technique) copyright 2011 [employer]- All Rights Reserved Foot X-Ray 02/14/19 08:56 IMPRESSION: 1. Diffuse soft tissue swelling about the foot without definitive evidence of osteomyelitis. Ulceration along the plantar aspect of the hindfoot. 2. Decreased osseous mineralization with degenerative changes as above. Chest X-Ray 02/16/19 10:50 IMPRESSION: Improving pneumonia. KUB X-Ray 02/18/19 00:00 IMPRESSION: 1. Nonspecific nonobstructive bowel gas pattern. There is mild to moderate fecal residue scattered throughout the colon 2. Arterial vascular calcifications. 3. Intrauterine device projects over the central pelvis. 4. Mild degenerative changes of the skeletal structures. Assessment & Plan - Diagnosis (1) Lobar pneumonia Is this a current diagnosis for this admission?: Yes (2) Chronic combined systolic and diastolic CHF (congestive heart failure) Is this a current diagnosis for this admission?: Yes (3) Hypoxemia requiring supplemental oxygen Is this a current diagnosis for this admission?: Yes (4) Abnormal urinalysis Is this a current diagnosis for this admission?: Yes (5) Type 2 diabetes mellitus with foot ulcer Qualifiers: Diabetes mellitus custodial insulin use: with custodial use Qualified Code(s): E11.621 - Type 2 diabetes mellitus with foot ulcer; L97.509 - Non- pressure chronic ulcer of other part of unspecified foot with unspecified severity; Z79.4 - manager intermediate (current) use of insulin Is this a current diagnosis for this admission?: Yes (6) 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 2 diabetes mellitus Qualifiers: Diabetic foot ulcer location: heel Non-pressure ulcer stage: unspecified no n-pressure ulcer stage Qualified Code(s): E11.621 - Type 2 diabetes mellitus with foot ulcer; L97.429 - Non-pressure chronic ulcer of left heel and midfoot with unspecified severity Is this a current diagnosis for this admission?: Yes (7) Chronic stable angina Is this a current diagnosis for this admission?: Yes (8) Hypertension Qualifiers: Hypertension type: essential hypertension Qualified Code(s): I10 - Essential (primary) hypertension Is this a current diagnosis for this admission?: Yes (9) Hyperlipidemia Qualifiers: Hyperlipidemia type: unspecified Qualified Code(s): E78.5 - Hyperlipidemia, unspecified Is this a current diagnosis for this admission?: Yes (10) Obesity (BMI 30-39.9) Is this a current diagnosis for this admission?: Yes (11) Abdominal pain, chronic, bilateral lower quadrant Is this a current diagnosis for this admission?: Yes (12) Anemia Qualifiers: Anemia type: unspecified type Qualified Code(s): D64.9 - Anemia, unspecified Is this a current diagnosis for this admission?: Yes Plan: Obtain anemia workup and stool occult test for further evaluation. She may need PRBC transfusion although her Hgb remain above transfusion level. - Time Time Spent with patient: 25-34 minutes Medications reviewed and adjusted accordingly: Yes Anticipated discharge: Home with Homehealth Within: Other - Inpatient Certification Based on my medical assessment, after consideration of the patient's comorbidities, presenting symptoms, or acuity I expect that the services needed warrant INPATIENT care.: Yes I certify that my determination is in accordance with my understanding of Medicare's requirements for reasonable and necessary INPATIENT services [42 CFR 412.3e].: Yes Medical Necessity: Significant Comorbidiites Make Outpatient Treatment Too Risky, Need Close Monitoring Due to Risk of Patient Decompensation, Need For IV Fluids, Need For Continuous Telemetry Monitoring, Risk of Complication if Not Cared For in Hospital, Risk of Diagnosis Which Will Require Inpatient Eval/Care/Monitoring Post Hospital Care: D/C Director Of Gift Planning Documentation - Plan Summary Plan Summary: See attending physician orders for details. I will delay d/c and transfuse 2 units PRBC today.
[2019-02-21 18:27] LABS: ABSOLUTE RETICS # 0.043 10^6/uL (0.028-0.122); RETICULOCYTE COUNT (AUTO) 1.48 % (0.66-2.85)
[2019-02-21 18:45] LABS: IRON(TIBC) 57.2 ug/dL (37-170)
[2019-02-21 19:49] LABS: FOLATE > 20.00 ng/mL (>2.76)
[2019-02-21] MEDS: ATORVASTATIN CALCIUM 20 MG TABLET PO SCH (21:25)
[2019-02-22] MEDS: OXYCODONE HCL IR 5 MG TABLET PO PRN ×3 (00:45→18:19)
[2019-02-22] MEDS: OXYCODONE-ACETAMINOPHEN 5-325 MG TABLET PO PRN ×3 (00:46→18:19)
[2019-02-22] MEDS: SIMETHICONE 80 MG TAB.CHEW PO SCH ×4 (00:47→17:06)
[2019-02-22] MEDS: GABAPENTIN 100 MG CAPSULE PO SCH ×3 (06:22→21:40)
[2019-02-22] MEDS: INSULIN LISPRO 100 UNIT/ML 3 ML VIAL SUBCUT SCH ×4 (08:49→21:40)
[2019-02-22 09:35] LABS: ABSOLUTE EOSINOPHILS # (AUTO) 0.2 10^3/uL (0.0-0.6); ABSOLUTE MONOCYTES (AUTO) 0.6 10^3/uL (0.1-1.4); ABSOLUTE NEUT (AUTO) 4.4 10^3/uL (1.7-8.2); BASOPHILS % (AUTO) 0.6 % (0-2); EOSINOPHILS % (AUTO) 3.1 % (0-6); HEMATOCRIT 28.9 % (36.0-47.0); HEMOGLOBIN 9.5 g/dL (12.0-15.5); LYMPHOCYTES % (AUTO) 16.5 % (13-45); MEAN CORPUSCULAR HEMOGLOBIN 29.7 pg (27.0-33.4); MEAN CORPUSCULAR HGB CONC 32.9 g/dL (32.0-36.0); MEAN CORPUSCULAR VOLUME 90 fl (80-97); MONOCYTES % (AUTO) 9.3 % (3-13); PLATELET COUNT 224 10^3/uL (150-450); RED BLOOD COUNT 3.19 10^6/uL (3.72-5.28); RED CELL DISTRIBUTION WIDTH 16.6 % (11.5-14.0); SEGMENTED NEUTROPHILS % (AUTO) 70.5 % (42-78); TOTAL CELLS COUNTED % (AUTO) 100 %; WHITE BLOOD COUNT 6.3 10^3/uL (4.0-10.5)
[2019-02-22] MEDS: DOCUSATE SODIUM 100 MG CAPSULE PO SCH ×2 (09:54→17:06)
[2019-02-22] MEDS: FUROSEMIDE 40 MG TABLET PO SCH (09:54)
[2019-02-22] MEDS: ASCORBIC ACID 500 MG TABLET PO SCH (09:55)
[2019-02-22] MEDS: FERROUS SULFATE 325 MG TABLET PO SCH (09:55)
[2019-02-22] MEDS: APIXABAN 2.5 MG TABLET PO SCH ×2 (09:55→17:06)
[2019-02-22] MEDS: VALSARTAN 160 MG TABLET PO SCH (09:55)
[2019-02-22] MEDS: FAMOTIDINE 20 MG TABLET PO SCH ×2 (09:55→17:06)
[2019-02-22] MEDS: AMLODIPINE BESYLATE 10 MG TABLET PO SCH (09:55)
[2019-02-22] MEDS: MULTIVITAMIN TABLET PO SCH (09:55)
[2019-02-22] MEDS: LEVOFLOXACIN 500 MG TABLET PO SCH (09:55)
[2019-02-22] MEDS: POLYETHYLENE GLYCOL 3350 POWDER 17 GM/1 PACKET PO SCH (09:56)
--- NOTE | 2019-02-22 10:28 | PDOC PROGRESS REPORT ---
Subjective Progress Note for:: 02/22/19 Subjective:: Patient was admitted for the pneumonia and chronic congestive heart failure Patient received the 2 units of the blood hemoglobin is 9.5 Patient's stool guaiac is negative Patient's denied any chest pain no short of breath Reason For Visit: RIGHT LOBAR PNEUMONIA, CHRONIC COMBINED CHF, Physical Exam Vital Signs: Temp Pulse Resp BP Pulse Ox 98.0 F 70 18 133/64 H 100 02/22/19 08:38 02/22/19 08:38 02/22/19 08:38 02/22/19 08:38 02/22/19 08:38 Intake & Output 02/21/19 02/22/19 02/23/19 06:59 06:59 06:59 Intake Total 960 2280 Output Total 1150 Balance -190 2280 Weight 84.4 kg 86.4 kg General appearance: PRESENT: no acute distress, well-developed, well-nourished Head exam: PRESENT: atraumatic, normocephalic Eye exam: PRESENT: conjunctiva pink, EOMI, PERRLA. ABSENT: scleral icterus Ear exam: PRESENT: normal external ear exam Mouth exam: PRESENT: moist, tongue midline Neck exam: PRESENT: full ROM. ABSENT: carotid bruit, JVD, lymphadenopathy, thyromegaly Respiratory exam: PRESENT: clear to auscultation jerrica Cardiovascular exam: PRESENT: RRR. ABSENT: diastolic murmur, rubs, systolic murmur Vascular exam: PRESENT: normal capillary refill GI/Abdominal exam: PRESENT: normal bowel sounds, soft. ABSENT: distended, guarding, mass, organolmegaly, rebound, tenderness Rectal exam: PRESENT: deferred Neurological exam: PRESENT: alert, awake, oriented to person, oriented to place, oriented to time, oriented to situation, CN II-XII grossly intact. ABSENT: motor sensory deficit Psychiatric exam: PRESENT: appropriate affect, normal mood. ABSENT: homicidal ideation, suicidal ideation Skin exam: PRESENT: dry, intact, warm. ABSENT: cyanosis, rash Results Laboratory Results: 02/22/19 09:28 02/21/19 10:27 02/21/19 02/21/19 02/21/19 10:27 10:27 17:54 WBC 6.4 RBC 2.74 L Hgb 8.1 L Hct 25.1 L MCV 92 MCH 29.4 MCHC 32.1 RDW 16.8 H Plt Count 263 Seg Neutrophils % 67.3 Retic Count (auto) 1.48 Sodium 140.9 Potassium 5.3 H Chloride 104 Carbon Dioxide 28 Anion Gap 9 BUN 42 H Creatinine 1.03 Est GFR ( Amer) > 60 Glucose 167 H Calcium 9.5 Iron TIBC % Saturation Ferritin Vitamin B12 Folate Stool Occult Blood Blood Type Antibody Screen 02/21/19 02/21/19 02/21/19 17:54 17:54 19:30 WBC RBC Hgb Hct MCV MCH MCHC RDW Plt Count Seg Neutrophils % Retic Count (auto) Sodium Potassium Chloride Carbon Dioxide Anion Gap BUN Creatinine Est GFR ( Amer) Glucose Calcium Iron 57.2 TIBC 308 % Saturation 19 Ferritin 155.00 Vitamin B12 597.0 Folate > 20.00 Stool Occult Blood NEGATIVE Blood Type A2subB POSITIVE Antibody Screen NEGATIVE 02/22/19 09:28 WBC 6.3 RBC 3.19 L Hgb 9.5 L Hct 28.9 L MCV 90 MCH 29.7 MCHC 32.9 RDW 16.6 H Plt Count 224 Seg Neutrophils % 70.5 Retic Count (auto) Sodium Potassium Chloride Carbon Dioxide Anion Gap BUN Creatinine Est GFR ( Amer) Glucose Calcium Iron TIBC % Saturation Ferritin Vitamin B12 Folate Stool Occult Blood Blood Type Antibody Screen 02/14/19 08:30 Troponin I < 0.012 NT-Pro-B Natriuret Pep 5640 H Impressions: Chest CT 02/14/19 00:00 IMPRESSION: Multifocal groundglass and consolidative opacity throughout both lungs, most pronounced within the upper lobes bilaterally with superimposed interlobular septal thickening and small bilateral pleural effusions/bibasilar atelectasis. Overall, findings are most likely indicative of pulmonary edema. However, a superimposed infectious process is also a possibility. Cardiomegaly with main pulmonary arterial enlargement. Correlate for pulmonary hypertension. Mediastinal lymphadenopathy, likely related to congestion. TECHNICAL DOCUMENTATION: Quality ID # [id number]: Final reports with documentation of one or more dose reduction techniques (e.g., Automated exposure control, adjustment of the mA and/or kV according to patient size, use of iterative reconstruction technique) copyright 2011 [employer]- All Rights Reserved Foot X-Ray 02/14/19 08:56 IMPRESSION: 1. Diffuse soft tissue swelling about the foot without definitive evidence of osteomyelitis. Ulceration along the plantar aspect of the hindfoot. 2. Decreased osseous mineralization with degenerative changes as above. Chest X-Ray 02/16/19 10:50 IMPRESSION: Improving pneumonia. KUB X-Ray 02/18/19 00:00 IMPRESSION: 1. Nonspecific nonobstructive bowel gas pattern. There is mild to moderate fecal residue scattered throughout the colon 2. Arterial vascular calcifications. 3. Intrauterine device projects over the central pelvis. 4. Mild degenerative changes of the skeletal structures. Assessment & Plan - Diagnosis (1) Lobar pneumonia Is this a current diagnosis for this admission?: Yes Plan: Currently on a p.o. antibiotics (2) Acute on chronic systolic CHF (congestive heart failure) Is this a current diagnosis for this admission?: Yes Plan: Currently all stable (3) Anemia Qualifiers: Anemia type: unspecified type Qualified Code(s): D64.9 - Anemia, unspecified Is this a current diagnosis for this admission?: Yes Plan: Patients have no active bleeding current hemoglobin is 9.5 after the blood transfusions (4) Type 2 diabetes mellitus with foot ulcer Qualifiers: Diabetes mellitus lead enterprise architect insulin use: with lead enterprise architect use Qualified Code(s): E11.621 - Type 2 diabetes mellitus with foot ulcer; L97.509 - Non- pressure chronic ulcer of other part of unspecified foot with unspecified se verity; Z79.4 - residential (current) use of insulin Is this a current diagnosis for this admission?: Yes (5) COPD (chronic obstructive pulmonary disease) Qualifiers: COPD type: unspecified COPD Qualified Code(s): J44.9 - Chronic obstructive pulmonary disease, unspecified Is this a current diagnosis for this admission?: Yes (6) Chronic anemia Is this a current diagnosis for this admission?: Yes (7) Coronary artery disease Qualifiers: Coronary Disease-Associated Artery/Lesion type: unspecified vessel or lesion type [place] vs. transplanted heart: [place] heart Associated angina: angina presence unspecified Qualified Code(s): I25.10 - Atherosclerotic heart disease of [place] coronary artery without angina pectoris Is this a current diagnosis for this admission?: Yes - Time Time Spent with patient: 15-24 minutes Medications reviewed and adjusted accordingly: Yes Anticipated discharge: Other Within: Other - Plan Summary Plan Summary: Continues to current medications
[2019-02-22] MEDS: ATORVASTATIN CALCIUM 20 MG TABLET PO SCH (21:40)
[2019-02-23] MEDS: SIMETHICONE 80 MG TAB.CHEW PO SCH ×5 (00:08→23:20)
[2019-02-23] MEDS: OXYCODONE-ACETAMINOPHEN 5-325 MG TABLET PO PRN ×3 (00:08→17:35)
[2019-02-23] MEDS: OXYCODONE HCL IR 5 MG TABLET PO PRN ×3 (00:09→17:34)
[2019-02-23] MEDS: GABAPENTIN 100 MG CAPSULE PO SCH ×3 (05:38→21:51)
[2019-02-23] MEDS: INSULIN LISPRO 100 UNIT/ML 3 ML VIAL SUBCUT SCH ×4 (08:16→21:51)
[2019-02-23] MEDS ORDERED: MAG HYDROX/AL HYDROX/SIMETH SUSP 30 ML UDCUP PO PRN (09:13)
[2019-02-23] MEDS: MULTIVITAMIN TABLET PO SCH (09:28)
[2019-02-23] MEDS: APIXABAN 2.5 MG TABLET PO SCH ×2 (09:28→17:30)
[2019-02-23] MEDS: DOCUSATE SODIUM 100 MG CAPSULE PO SCH ×2 (09:28→17:30)
[2019-02-23] MEDS: LEVOFLOXACIN 500 MG TABLET PO SCH (09:28)
[2019-02-23] MEDS: FAMOTIDINE 20 MG TABLET PO SCH ×2 (09:28→17:30)
[2019-02-23] MEDS: AMLODIPINE BESYLATE 10 MG TABLET PO SCH (09:28)
[2019-02-23] MEDS: ASCORBIC ACID 500 MG TABLET PO SCH (09:28)
[2019-02-23] MEDS: FERROUS SULFATE 325 MG TABLET PO SCH (09:28)
[2019-02-23] MEDS: FUROSEMIDE 40 MG TABLET PO SCH (09:28)
[2019-02-23] MEDS: VALSARTAN 160 MG TABLET PO SCH (09:28)
[2019-02-23] MEDS: POLYETHYLENE GLYCOL 3350 POWDER 17 GM/1 PACKET PO SCH (09:29)
--- NOTE | 2019-02-23 09:29 | PDOC PROGRESS REPORT ---
Subjective Progress Note for:: 02/23/19 Subjective:: Patient is complaining of some stomach upsets Patient is denied no nausea no vomiting No blood in the stools patient is currently taking the pain medications narcotics Patient is received 2 units of the blood yesterday No blood in the stools no black stools no Chest pain no short of breath Reason For Visit: RIGHT LOBAR PNEUMONIA, CHRONIC COMBINED CHF, Physical Exam Vital Signs: Temp Pulse Resp BP Pulse Ox 97.9 F 71 14 125/56 L 93 02/23/19 03:18 02/23/19 06:41 02/23/19 03:18 02/23/19 03:18 02/23/19 08:49 Intake & Output 02/22/19 02/23/19 02/24/19 06:59 06:59 06:59 Intake Total 2280 1942 Output Total 750 Balance 2280 1192 Weight 86.4 kg 84.6 kg General appearance: PRESENT: no acute distress, well-developed, well-nourished Head exam: PRESENT: atraumatic, normocephalic Eye exam: PRESENT: conjunctiva pink, EOMI, PERRLA. ABSENT: scleral icterus Ear exam: PRESENT: normal external ear exam Mouth exam: PRESENT: moist, tongue midline Neck exam: PRESENT: full ROM. ABSENT: carotid bruit, JVD, lymphadenopathy, thyromegaly Respiratory exam: PRESENT: clear to auscultation ejrrica Cardiovascular exam: PRESENT: RRR. ABSENT: diastolic murmur, rubs, systolic murmur Pulses: PRESENT: normal dorsalis pedis pul, +2 pedal pulses bilateral Vascular exam: PRESENT: normal capillary refill GI/Abdominal exam: PRESENT: normal bowel sounds, soft. ABSENT: distended, guarding, mass, organolmegaly, rebound, tenderness Rectal exam: PRESENT: deferred Neurological exam: PRESENT: alert, awake, oriented to person, oriented to place, oriented to time, oriented to situation, CN II-XII grossly intact. ABSENT: mot or sensory deficit Psychiatric exam: PRESENT: appropriate affect, normal mood. ABSENT: homicidal ideation, suicidal ideation Skin exam: PRESENT: dry, intact, warm. ABSENT: cyanosis, rash Results Laboratory Results: 02/22/19 09:28 02/21/19 10:27 02/22/19 09:28 WBC 6.3 RBC 3.19 L Hgb 9.5 L Hct 28.9 L MCV 90 MCH 29.7 MCHC 32.9 RDW 16.6 H Plt Count 224 Seg Neutrophils % 70.5 02/14/19 08:30 Troponin I < 0.012 NT-Pro-B Natriuret Pep 5640 H Impressions: Chest CT 02/14/19 00:00 IMPRESSION: Multifocal groundglass and consolidative opacity throughout both lungs, most pronounced within the upper lobes bilaterally with superimposed interlobular septal thickening and small bilateral pleural effusions/bibasilar atelectasis. Overall, findings are most likely indicative of pulmonary edema. However, a superimposed infectious process is also a possibility. Cardiomegaly with main pulmonary arterial enlargement. Correlate for pulmonary hypertension. Mediastinal lymphadenopathy, likely related to congestion. TECHNICAL DOCUMENTATION: Quality ID # 436: Final reports with documentation of one or more dose reduction techniques (e.g., Automated exposure control, adjustment of the mA and/or kV according to patient size, use of iterative reconstruction technique) copyright 2011 [employer]- All Rights Reserved Foot X-Ray 02/14/19 08:56 IMPRESSION: 1. Diffuse soft tissue swelling about the foot without definitive evidence of osteomyelitis. Ulceration along the plantar aspect of the hindfoot. 2. Decreased osseous mineralization with degenerative changes as above. Chest X-Ray 02/16/19 10:50 IMPRESSION: Improving pneumonia. KUB X-Ray 02/18/19 00:00 IMPRESSION: 1. Nonspecific nonobstructive bowel gas pattern. There is mild to moderate fecal residue scattered throughout the colon 2. Arterial vascular calcifications. 3. Intrauterine device projects over the central pelvis. 4. Mild degenerative changes of the skeletal structures. Assessment & Plan - Diagnosis (1) Lobar pneumonia Is this a current diagnosis for this admission?: Yes Plan: Currently on a p.o. antibiotics (2) Acute on chronic systolic CHF (congestive heart failure) Is this a current diagnosis for this admission?: Yes Plan: Currently all stable (3) Anemia Qualifiers: Anemia type: unspecified type Qualified Code(s): D64.9 - Anemia, unspecified Is this a current diagnosis for this admission?: Yes Plan: Patients have no active bleeding current hemoglobin is 9.5 after the blood transfusions (4) Type 2 diabetes mellitus with foot ulcer Qualifiers: Diabetes mellitus usp insulin use: with usp use Qualified Code(s): E11.621 - Type 2 diabetes mellitus with foot ulcer; L97.509 - Non- pressure chronic ulcer of other part of unspecified foot with unspecified severity; Z79.4 - care home (current) use of insulin Is this a current diagnosis for this admission?: Yes (5) COPD (chronic obstructive pulmonary disease) Qualifiers: COPD type: unspecified COPD Qualified Code(s): J44.9 - Chronic obstructive pulmonary disease, unspecified Is this a current diagnosis for this admission?: Yes (6) Chronic anemia Is this a current diagnosis for this admission?: Yes (7) Coronary artery disease Qualifiers: Coronary Disease-Associated Artery/Lesion type: unspecified vessel or lesion type [place] vs. transplanted heart: [place] heart Associated angina: angina presence unspecified Qualified Code(s): I25.10 - Atherosclerotic heart disease of [place] coronary artery without angina pectoris Is this a current diagnosis for this admission?: Yes - Time Time Spent with patient: 15-24 minutes Medications reviewed and adjusted accordingly: Yes Anticipated discharge: Other Within: Other - Plan Summary Plan Summary: We will check a CBC and Chem-7 again today Discussed with the nursing staff to do physical therapy out of the bed We will give her some Maalox as needed Patient is already on a Pepcid
[2019-02-23 10:03] LABS: ABSOLUTE EOSINOPHILS # (AUTO) 0.2 10^3/uL (0.0-0.6); ABSOLUTE MONOCYTES (AUTO) 0.6 10^3/uL (0.1-1.4); ABSOLUTE NEUT (AUTO) 4.8 10^3/uL (1.7-8.2); BASOPHILS % (AUTO) 0.5 % (0-2); EOSINOPHILS % (AUTO) 2.9 % (0-6); HEMATOCRIT 29.5 % (36.0-47.0); HEMOGLOBIN 9.5 g/dL (12.0-15.5); LYMPHOCYTES % (AUTO) 14.5 % (13-45); MEAN CORPUSCULAR HEMOGLOBIN 29.3 pg (27.0-33.4); MEAN CORPUSCULAR HGB CONC 32.2 g/dL (32.0-36.0); MEAN CORPUSCULAR VOLUME 91 fl (80-97); MONOCYTES % (AUTO) 8.7 % (3-13); PLATELET COUNT 206 10^3/uL (150-450); RED BLOOD COUNT 3.24 10^6/uL (3.72-5.28); RED CELL DISTRIBUTION WIDTH 16.5 % (11.5-14.0); SEGMENTED NEUTROPHILS % (AUTO) 73.4 % (42-78); TOTAL CELLS COUNTED % (AUTO) 100 %; WHITE BLOOD COUNT 6.6 10^3/uL (4.0-10.5)
[2019-02-23 10:21] LABS: ANION GAP 11 (5-19); BLOOD UREA NITROGEN 37 mg/dL (7-20); CALCIUM 9.7 mg/dL (8.4-10.2); CARBON DIOXIDE 26 mmol/L (22-30); CHLORIDE 105 mmol/L (98-107); GLUCOSE 162 mg/dL (75-110); POTASSIUM 5.1 mmol/L (3.6-5.0)
[2019-02-23] MEDS: ATORVASTATIN CALCIUM 20 MG TABLET PO SCH (21:51)
[2019-02-24] MEDS: OXYCODONE-ACETAMINOPHEN 5-325 MG TABLET PO PRN ×2 (02:46→17:42)
[2019-02-24] MEDS: GABAPENTIN 100 MG CAPSULE PO SCH ×3 (05:18→22:28)
[2019-02-24] MEDS: SIMETHICONE 80 MG TAB.CHEW PO SCH ×3 (05:18→17:39)
[2019-02-24] MEDS: INSULIN LISPRO 100 UNIT/ML 3 ML VIAL SUBCUT SCH ×4 (08:37→22:28)
[2019-02-24] MEDS: VALSARTAN 160 MG TABLET PO SCH (09:35)
[2019-02-24] MEDS: FUROSEMIDE 40 MG TABLET PO SCH (09:35)
[2019-02-24] MEDS: ASCORBIC ACID 500 MG TABLET PO SCH (09:35)
[2019-02-24] MEDS: DOCUSATE SODIUM 100 MG CAPSULE PO SCH ×2 (09:35→17:39)
[2019-02-24] MEDS: LEVOFLOXACIN 500 MG TABLET PO SCH (09:36)
[2019-02-24] MEDS: AMLODIPINE BESYLATE 10 MG TABLET PO SCH (09:36)
[2019-02-24] MEDS: POLYETHYLENE GLYCOL 3350 POWDER 17 GM/1 PACKET PO SCH (09:36)
[2019-02-24] MEDS: MULTIVITAMIN TABLET PO SCH (09:36)
[2019-02-24] MEDS: APIXABAN 2.5 MG TABLET PO SCH ×2 (09:36→17:39)
[2019-02-24] MEDS: FERROUS SULFATE 325 MG TABLET PO SCH (09:36)
[2019-02-24] MEDS: FAMOTIDINE 20 MG TABLET PO SCH ×2 (09:36→17:39)
[2019-02-24] MEDS: OXYCODONE HCL IR 5 MG TABLET PO PRN ×2 (17:43→23:59)
--- NOTE | 2019-02-24 20:25 | PDOC PROGRESS REPORT ---
Subjective Progress Note for:: 02/24/19 Subjective:: Patient denied chest pain or difficulty with breathing. No abdominal pain, nausea or vomiting. No fever or chills. She had 2 units of PRBC transfused since clinical evaluation by me. Reason For Visit: RIGHT LOBAR PNEUMONIA, CHRONIC COMBINED CHF, Physical Exam Vital Signs: Temp Pulse Resp BP Pulse Ox 98.1 F 73 17 150/63 H 97 02/24/19 15:52 02/24/19 19:00 02/24/19 15:52 02/24/19 15:52 02/24/19 15:52 Intake & Output 02/23/19 02/24/19 02/25/19 06:59 06:59 06:59 Intake Total 1942 1530 560 Output Total 750 1076 500 Balance 1192 454 60 Weight 84.6 kg 83.4 kg General appearance: PRESENT: no acute distress, obese Head exam: PRESENT: atraumatic, normocephalic Eye exam: PRESENT: conjunctiva pink. ABSENT: pallor, scleral icterus Ear exam: PRESENT: normal external ear exam Mouth exam: PRESENT: moist Teeth exam: PRESENT: poor dentition Respiratory exam: PRESENT: clear to auscultation jer[place], decreased breath sounds - at lung bases Cardiovascular exam: PRESENT: RRR. ABSENT: diastolic murmur, rubs, systolic murmur GI/Abdominal exam: PRESENT: normal bowel sounds, soft. ABSENT: distended, tenderness, guarding, mass, organomegaly, rebound Extremities exam: ABSENT: pedal edema Musculoskeletal exam: PRESENT: deformity - related to joints involvement with arthritis Neurological exam: PRESENT: alert, awake, oriented to person, oriented to place, oriented to time, oriented to situation, CN II-XII grossly intact. ABSENT: motor sensory deficit Psychiatric exam: PRESENT: appropriate affect, normal mood. ABSENT: homicidal ideation, suicidal ideation Skin exam: PRESENT: dry, warm Results Laboratory Results: 02/23/19 09:47 02/23/19 09:47 02/14/19 08:30 Troponin I < 0.012 NT-Pro-B Natriuret Pep 5640 H Impressions: Chest CT 02/14/19 00:00 IMPRESSION: Multifocal groundglass and consolidative opacity throughout both lungs, most pronounced within the upper lobes bilaterally with superimposed interlobular septal thickening and small bilateral pleural effusions/bibasilar atelectasis. Overall, findings are most likely indicative of pulmonary edema. However, a superimposed infectious process is also a possibility. Cardiomegaly with main pulmonary arterial enlargement. Correlate for pulmonary hypertension. Mediastinal lymphadenopathy, likely related to congestion. TECHNICAL DOCUMENTATION: Quality ID # 436: Final reports with documentation of one or more dose reduction techniques (e.g., Automated exposure control, adjustment of the mA and/or kV according to patient size, use of iterative reconstruction technique) copyright 2011 [employer]- All Rights Reserved Foot X-Ray 02/14/19 08:56 IMPRESSION: 1. Diffuse soft tissue swelling about the foot without definitive evidence of osteomyelitis. Ulceration along the plantar aspect of the hindfoot. 2. Decreased osseous mineralization with degenerative changes as above. Chest X-Ray 02/16/19 10:50 IMPRESSION: Improving pneumonia. KUB X-Ray 02/18/19 00:00 IMPRESSION: 1. Nonspecific nonobstructive bowel gas pattern. There is mild to moderate fecal residue scattered throughout the colon 2. Arterial vascular calcifications. 3. Intrauterine device projects over the central pelvis. 4. Mild degenerative changes of the skeletal structures. Assessment & Plan - Diagnosis (1) Lobar pneumonia Is this a current diagnosis for this admission?: Yes (2) Chronic combined systolic and diastolic CHF (congestive heart failure) Is this a current diagnosis for this admission?: Yes (3) Hypoxemia requiring supplemental oxygen Is this a current diagnosis for this admission?: Yes (4) Abnormal urinalysis Is this a current diagnosis for this admission?: Yes (5) Type 2 diabetes mellitus with foot ulcer Qualifiers: Diabetes mellitus s[employer]hol[employer] insulin use: with s[employer] use Qualified Code(s): E11.621 - Type 2 diabetes mellitus with foot ulcer; L97.509 - Non- pressure chronic ulcer of other part of unspecified foot with unspecified severity; Z79.4 - custodial (current) use of insulin Is this a current diagnosis for this admission?: Yes (6) 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 2 diabetes mellitus Qualifiers: Diabetic foot ulcer location: heel Non-pressure ulcer stage: unspecified non-pressure ulcer stage Qualified Code(s): E11.621 - Type 2 diabetes mellitus with foot ulcer; L97.429 - Non-pressure chronic ulcer of left heel and midfoot with unspecified severity Is this a current diagnosis for this admission?: Yes (7) Chronic stable angina Is this a current diagnosis for this admission?: Yes (8) Hypertension Qualifiers: Hypertension type: essential hypertension Qualified Code(s): I10 - Essential (primary) hypertension Is this a current diagnosis for this admission?: Yes (9) Hyperlipidemia Qualifiers: Hyperlipidemia type: unspecified Qualified Code(s): E78.5 - Hyperlipidemia, unspecified Is this a current diagnosis for this admission?: Yes (10) Obesity (BMI 30-39.9) Is this a current diagnosis for this admission?: Yes (11) Abdominal pain, chronic, bilateral lower quadrant Is this a current diagnosis for this admission?: Yes (12) Anemia Qualifiers: Anemia type: unspecified type Qualified Code(s): D64.9 - Anemia, unspecified Is this a current diagnosis for this admission?: Yes - Time Time Spent with patient: 25-34 minutes Medications reviewed and adjusted accordingly: Yes Anticipated discharge: Home with Homehealth Within: Other - Inpatient Certification Based on my medical assessment, after consideration of the patient's comorbidit ies, presenting symptoms, or acuity I expect that the services needed warrant INPATIENT care.: Yes I certify that my determination is in accordance with my understanding of [place]'s requirements for reasonable and necessary INPATIENT services [42 CFR 412.3e].: Yes Medical Necessity: Significant Comorbidiites Make Outpatient Treatment Too Risky, Need Close Monitoring Due to Risk of Patient Decompensation, Need For Continuous Telemetry Monitoring, Need for Nebulizer Therapy and Monitoring of Response, Risk of Complication if Not Cared For in Hospital, Risk of Diagnosis Which Will Require Inpatient Eval/Care/Monitoring 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 Repeat CBC with diff.
[2019-02-24 22:26] LABS: ABSOLUTE EOSINOPHILS # (AUTO) 0.1 10^3/uL (0.0-0.6); ABSOLUTE LYMPHOCYTES (AUTO) 1.3 10^3/uL (0.5-4.7); ABSOLUTE MONOCYTES (AUTO) 0.6 10^3/uL (0.1-1.4); ABSOLUTE NEUT (AUTO) 4.4 10^3/uL (1.7-8.2); BASOPHILS % (AUTO) 0.7 % (0-2); EOSINOPHILS % (AUTO) 2.2 % (0-6); HEMATOCRIT 30.6 % (36.0-47.0); LYMPHOCYTES % (AUTO) 20.4 % (13-45); MEAN CORPUSCULAR HEMOGLOBIN 29.9 pg (27.0-33.4); MEAN CORPUSCULAR HGB CONC 32.7 g/dL (32.0-36.0); MEAN CORPUSCULAR VOLUME 91 fl (80-97); MONOCYTES % (AUTO) 9.4 % (3-13); PLATELET COUNT 232 10^3/uL (150-450); RED BLOOD COUNT 3.36 10^6/uL (3.72-5.28); RED CELL DISTRIBUTION WIDTH 16.8 % (11.5-14.0); SEGMENTED NEUTROPHILS % (AUTO) 67.3 % (42-78); TOTAL CELLS COUNTED % (AUTO) 100 %; WHITE BLOOD COUNT 6.5 10^3/uL (4.0-10.5)
[2019-02-24] MEDS: ATORVASTATIN CALCIUM 20 MG TABLET PO SCH (22:28)
[2019-02-25] MEDS: GABAPENTIN 100 MG CAPSULE PO SCH (05:30)
[2019-02-25] MEDS: SIMETHICONE 80 MG TAB.CHEW PO SCH ×3 (05:30→12:27)
[2019-02-25] MEDS: INSULIN LISPRO 100 UNIT/ML 3 ML VIAL SUBCUT SCH ×2 (08:28→12:11)
[2019-02-25] MEDS: OXYCODONE HCL IR 5 MG TABLET PO PRN (10:23)
[2019-02-25] MEDS: OXYCODONE-ACETAMINOPHEN 5-325 MG TABLET PO PRN ×2 (10:26)
[2019-02-25] MEDS: FUROSEMIDE 40 MG TABLET PO SCH (10:27)
[2019-02-25] MEDS: MULTIVITAMIN TABLET PO SCH (10:27)
[2019-02-25] MEDS: AMLODIPINE BESYLATE 10 MG TABLET PO SCH (10:28)
[2019-02-25] MEDS: VALSARTAN 160 MG TABLET PO SCH (10:28)
[2019-02-25] MEDS: LEVOFLOXACIN 500 MG TABLET PO SCH (10:28)
[2019-02-25] MEDS: APIXABAN 2.5 MG TABLET PO SCH (10:28)
[2019-02-25] MEDS: ASCORBIC ACID 500 MG TABLET PO SCH (10:29)
[2019-02-25] MEDS: FERROUS SULFATE 325 MG TABLET PO SCH (10:29)
[2019-02-25] MEDS: FAMOTIDINE 20 MG TABLET PO SCH (10:29)
[2019-02-25] MEDS: DOCUSATE SODIUM 100 MG CAPSULE PO SCH (10:29)
[2019-02-25] MEDS: POLYETHYLENE GLYCOL 3350 POWDER 17 GM/1 PACKET PO SCH (10:29)
[2019-02-25 11:11] VITALS: BP 149/71
--- NOTE | 2019-02-25 20:13 | PDOC DISCHARGE SUMMARY ---
Impression - Admit/DC Date/PCP Admission Date/Primary Care Provider: 02/14/19 11:29 STEPHAN TAFOYA Discharge Date: 02/25/19 - Discharge Diagnosis (1) Lobar pneumonia Is this a current diagnosis for this admission?: Yes (2) Chronic combined systolic and diastolic CHF (congestive heart failure) Is this a current diagnosis for this admission?: Yes (3) Hypoxemia requiring supplemental oxygen Is this a current diagnosis for this admission?: Yes (4) Abnormal urinalysis Is this a current diagnosis for this admission?: Yes (5) Type 2 diabetes mellitus with foot ulcer Is this a current diagnosis for this admission?: Yes (6) 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 2 diabetes mellitus Is this a current diagnosis for this admission?: Yes (7) Chronic stable angina Is this a current diagnosis for this admission?: Yes (8) Hypertension Is this a current diagnosis for this admission?: Yes (9) Hyperlipidemia Is this a current diagnosis for this admission?: Yes (10) Obesity (BMI 30-39.9) Is this a current diagnosis for this admission?: Yes (11) Abdominal pain, chronic, bilateral lower quadrant Is this a current diagnosis for this admission?: Yes (12) Anemia Is this a current diagnosis for this admission?: Yes - Assessment Summary: She was admitted as case of RUL pneumonia with fluid overload. She responded adequately to IV Lasix and antibiotic coverage. Her stay was further complicated with anemia and excessive use of anticoagulation medicine with Eliquis and Clopidogrel. She was subsequently taken off Clopidogrel. She was transfused 2 units of PRBC due to low hemoglobin and concern about ongoing chronic bleeding. Patient continue to complain about chronic lower quadrant abdominal pain and remain on Percocet 7.5/325 mg administration for pain management while in the hospital. He did improved with her antibiotic therapy with regard to her breathing. Her associated leukocytosis did resolved. She will be discharged home today and follow up in the office as instructed upon discharge. - Additional Information Resuscitation Status: Full Code Discharge Diet: Cardiac, Diabetic Discharge Activity: Activity As Tolerated, Balance Activity w/Rest, Weigh Daily Referrals: STEPHAN TAFOYA MD [Primary Care Provider] - 03/05/19 10:15 am Prescriptions: Levofloxacin [Levaquin 500 mg Tablet] 500 mg PO DAILY #5 tablet Home Medications: Amlodipine Besylate [Norvasc 10 mg Tablet] 10 mg PO DAILY 02/14/19 Apixaban [Eliquis 2.5 mg Tablet] 2.5 mg PO BID 02/14/19 Ascorbic Acid [Vitamin C 500 mg Tablet] 500 mg PO DAILY 02/14/19 Atorvastatin Calcium [Lipitor 20 mg Tablet] 20 mg PO QHS 02/14/19 Docusate Sodium [Colace 100 mg Capsule] 100 mg PO BID 02/14/19 Famotidine [Pepcid 20 mg Tablet] 20 mg PO BID 02/14/19 Ferrous Sulfate [Feosol 325 mg Tablet] 325 mg PO DAILY 02/14/19 Furosemide [Lasix 20 mg Tablet] 60 mg PO DAILY 02/14/19 Gabapentin [Neurontin 100 mg Capsule] 100 mg PO Q8 02/14/19 Multivit,Calc,Mins/Iron/Folic [Thera M Plus Tablet] 1 tab PO DAILY 02/14/19 Nitroglycerin [Nitrostat 0.4 mg (1/150 Gr) Tabs 25/Bottle] 0.4 mg SL Q5MP PRN 02/14/19 Oxycodone HCl/Acetaminophen [Percocet 7.5-325 mg Tablet] 1 tab PO Q6HP PRN 02/14/19 Valsartan [Diovan 160 mg Tablet] 160 mg PO DAILY 02/14/19 Levofloxacin [Levaquin 500 mg Tablet] 500 mg PO DAILY #5 tablet 02/25/19 History of Present Illiness History of Present Illness: JAVIER BURGER is a 63 year old female known to my practice who presented to the ED with complain about worsening shortness of breath for couple of days. She admitted to excessive water intake due to perceived thirst on diuretic therapy. Patient reported that she cut back on fluid intake but her breathing difficulty persist necessitating coming to the ED. He reported associated minimally productive coughing. She denied any definite fever but claimed that she quickly get cold. She denied any nasal or sinus congestion. No headache or dizziness. No nausea or vomiting but experience right upper abdominal region pain that radiate into her back. Her initial ED evaluation was significant for respiratory distress with hypoxemia and need for BiPAP support and administration of IV Lasix due to concern for fluid overload. Her chest X-ray did suggest RUL consolidation and pulmonary vascular congestion in line with fluid overload. There was associated elevated NT-Pro BNP, leukocytosis with left shift, and abnormal urinalysis. She was advised hospitalization for further evaluation and management. Her morbidities are as listed below. Hospital Course Hospital Course: She was admitted as case of RUL pneumonia with fluid overload. She responded adequately to IV Lasix and antibiotic coverage. Her stay was further complicated with anemia and excessive use of anticoagulation medicine with Eliquis and Clopidogrel. She was subsequently taken off Clopidogrel. She was transfused 2 units of PRBC due to low hemoglobin and concern about ongoing chronic bleeding. Patient continue to complain about chronic lower quadrant abdominal pain and remain on Percocet 7.5/325 mg administration for pain management while in the hospital. He did improved with her antibiotic therapy with regard to her breathing. Her associated leukocytosis did resolved. She will be discharged home today and follow up in the office as instructed upon discharge. Physical Exam Vital Signs: Temp Pulse Resp BP Pulse Ox 97.3 F 69 17 128/59 H 90 L 02/25/19 03:57 02/25/19 07:00 02/24/19 23:53 02/25/19 03:57 02/25/19 03:57 Intake & Output 02/24/19 02/25/19 02/26/19 06:59 06:59 06:59 Intake Total 1530 560 Output Total 1076 500 Balance 454 60 Weight 83.4 kg 87.9 kg General appearance: PRESENT: no acute distress, obese Head exam: PRESENT: atraumatic, normocephalic Eye exam: PRESENT: conjunctiva pink. ABSENT: pallor, scleral icterus Ear exam: PRESENT: normal external ear exam Mouth exam: PRESENT: moist Teeth exam: PRESENT: poor dentition Respiratory exam: PRESENT: clear to auscultation jerrica, decreased breath sounds - at lung bases Cardiovascular exam: PRESENT: RRR. ABSENT: diastolic murmur, rubs, systolic murmur GI/Abdominal exam: PRESENT: normal bowel sounds, soft. ABSENT: distended, tenderness, guarding, mass, organomegaly, rebound Extremities exam: ABSENT: pedal edema Musculoskeletal exam: PRESENT: deformity - related to joints involvement with arthritis Neurological exam: PRESENT: alert, awake, oriented to person, oriented to place, oriented to time, oriented to situation, CN II-XII grossly intact. ABSENT: motor sensory deficit Psychiatric exam: PRESENT: appropriate affect, normal mood. ABSENT: homicidal ideation, suicidal ideation Skin exam: PRESENT: dry, warm Results Laboratory Results: WBC 6.5 10^3/uL (4.0-10.5) 02/24/19 22:05 RBC 3.36 10^6/uL (3.72-5.28) L 02/24/19 22:05 Hgb 10.0 g/dL (12.0-15.5) L 02/24/19 22:05 Hct 30.6 % (36.0-47.0) L 02/24/19 22:05 MCV 91 fl (80-97) 02/24/19 22:05 MCH 29.9 pg (27.0-33.4) 02/24/19 22:05 MCHC 32.7 g/dL (32.0-36.0) 02/24/19 22:05 RDW 16.8 % (11.5-14.0) H 02/24/19 22:05 Plt Count 232 10^3/uL (150-450) 02/24/19 22:05 Lymph % (Auto) 20.4 % (13-45) 02/24/19 22:05 Clinch % (Auto) 9.4 % (3-13) 02/24/19 22:05 Eos % (Auto) 2.2 % (0-6) 02/24/19 22:05 Baso % (Auto) 0.7 % (0-2) 02/24/19 22:05 Reticulocyte # 0.043 10^6/uL (0.028-0.122) 02/21/19 17:54 Absolute Neuts (auto) 4.4 10^3/uL (1.7-8.2) 02/24/19 22:05 Absolute Lymphs (auto) 1.3 10^3/uL (0.5-4.7) 02/24/19 22:05 Absolute Monos (auto) 0.6 10^3/uL (0.1-1.4) 02/24/19 22:05 Absolute Eos (auto) 0.1 10^3/uL (0.0-0.6) 02/24/19 22:05 Absolute Basos (auto) 0.0 10^3/uL (0.0-0.2) 02/24/19 22:05 Seg Neutrophils % 67.3 % (42-78) 02/24/19 22:05 Platelet Estimate Cancelled 02/15/19 04:11 Retic Count (auto) 1.48 % (0.66-2.85) 02/21/19 17:54 Carbonic Acid 1.33 mmol/L (1.05-1.35) 02/14/19 10:10 HCO3/H2CO3 Ratio 18:1 02/14/19 10:10 ABG pH 7.36 (7.35-7.45) 02/14/19 10:10 ABG pCO2 44.3 mmHg (35-45) 02/14/19 10:10 ABG pO2 65.4 mmHg (80-100) L 02/14/19 10:10 ABG HCO3 24.3 mmol/L (20-24) H 02/14/19 10:10 ABG Total CO2 25.7 mmol/L (21-25) H 02/14/19 10:10 ABG O2 Saturation 92.0 % (94-98) L 02/14/19 10:10 ABG Base Excess -1.3 mmol/L 02/14/19 10:10 FiO2 30% 02/14/19 10:10 Sodium 141.5 mmol/L (137-145) 02/23/19 09:47 Potassium 5.1 mmol/L (3.6-5.0) H 02/23/19 09:47 Chloride 105 mmol/L (98-107) 02/23/19 09:47 Carbon Dioxide 26 mmol/L (22-30) 02/23/19 09:47 Anion Gap 11 (5-19) 02/23/19 09:47 BUN 37 mg/dL (7-20) H 02/23/19 09:47 Creatinine 0.95 mg/dL (0.52-1.25) 02/23/19 09:47 Est GFR ( Amer) > 60 (>60) 02/23/19 09:47 Est GFR (MDRD) Non-Af 59 (>60) L 02/23/19 09:47 Glucose 162 mg/dL (75-110) H 02/23/19 09:47 POC Glucose 107 mg/dL (70-110) 02/25/19 07:59 Hemoglobin A1c % 6.8 % (4.7-6.0) H 02/15/19 04:11 Calcium 9.7 mg/dL (8.4-10.2) 02/23/19 09:47 Magnesium 1.9 mg/dL (1.6-2.3) 02/15/19 04:11 Iron 57.2 ug/dL (37-170) 02/21/19 17:54 TIBC 308 ug/dL (250-450) 02/21/19 17:54 % Saturation 19 % 02/21/19 17:54 Ferritin 155.00 ng/mL (11.1-264.0) 02/21/19 17:54 Total Bilirubin 0.6 mg/dL (0.2-1.3) 02/18/19 05:02 Direct Bilirubin 0.4 mg/dL (0.0-0.4) 02/18/19 05:02 Neonat Total Bilirubin Not Reportable 02/18/19 05:02 Neonat Direct Bilirubin Not Reportable 02/18/19 05:02 Neonat Indirect Bili Not Reportable 02/18/19 05:02 AST 34 U/L (14-36) 02/18/19 05:02 ALT 14 U/L (<35) 02/18/19 05:02 Alkaline Phosphatase 373 U/L (38-126) H 02/18/19 05:02 Troponin I < 0.012 ng/mL 02/14/19 08:30 NT-Pro-B Natriuret Pep 5640 pg/mL (5-900) H 02/14/19 08:30 Total Protein 9.1 g/dL (6.3-8.2) H 02/18/19 05:02 Albumin 3.6 g/dL (3.5-5.0) 02/18/19 05:02 Triglycerides 59 mg/dL (<150) 02/15/19 04:11 Cholesterol 151.42 mg/dL (0-200) 02/15/19 04:11 LDL Cholesterol Direct 95 mg/dL (<100) 02/15/19 04:11 VLDL Cholesterol 12.0 mg/dL (10-31) 02/15/19 04:11 HDL Cholesterol 32 mg/dL (>40) L 02/15/19 04:11 Vitamin B12 597.0 pg/mL (239-931) 02/21/19 17:54 Folate > 20.00 ng/mL (>2.76) 02/21/19 17:54 Urine Color YELLOW 02/14/19 10:10 Urine Appearance SLIGHTLY-CLOUDY 02/14/19 10:10 Urine pH 6.0 (5.0-9.0) 02/14/19 10:10 Ur Specific Hoagland 1.011 02/14/19 10:10 Urine Protein >=500 mg/dL (NEGATIVE) H 02/14/19 10:10 Urine Glucose (UA) NEGATIVE mg/dL (NEGATIVE) 02/14/19 10:10 Urine Ketones NEGATIVE mg/dL (NEGATIVE) 02/14/19 10:10 Urine Blood SMALL (NEGATIVE) H 02/14/19 10:10 Urine Nitrite NEGATIVE (NEGATIVE) 02/14/19 10:10 Urine Bilirubin NEGATIVE (NEGATIVE) 02/14/19 10:10 Urine Urobilinogen 4.0 mg/dL (<2.0) H 02/14/19 10:10 Ur Leukocyte Esterase MODERATE (NEGATIVE) H 02/14/19 10:10 Urine WBC (Auto) 36 /HPF 02/14/19 10:10 Urine RBC (Auto) 5 /HPF 02/14/19 10:10 U Hyaline Cast (Auto) 1 /LPF 02/14/19 10:10 Urine Bacteria (Auto) 1+ /HPF 02/14/19 10:10 Squamous Epi Cells Auto 12 /HPF 02/14/19 10:10 Urine Ascorbic Acid NEGATIVE (NEGATIVE) 02/14/19 10:10 Stool Occult Blood NEGATIVE (NEGATIVE) 02/21/19 19:30 Slides for Path Review Cancelled 02/15/19 04:11 Blood Type A2subB POSITIVE 02/21/19 17:54 Antibody Screen NEGATIVE 02/21/19 17:54 Crossmatch See Detail 02/21/19 17:54 02/14/19 08:30 Troponin I < 0.012 NT-Pro-B Natriuret Pep 5640 H Impressions: Chest CT 02/14/19 00:00 IMPRESSION: Multifocal groundglass and consolidative opacity throughout both lungs, most pronounced within the upper lobes bilaterally with superimposed interlobular septal thickening and small bilateral pleural effusions/bibasilar atelectasis. Overall, findings are most likely indicative of pulmonary edema. However, a superimposed infectious process is also a possibility. Cardiomegaly with main pulmonary arterial enlargement. Correlate for pulmonary hypertension. Mediastinal lymphadenopathy, likely related to congestion. TECHNICAL DOCUMENTATION: Quality ID # [id number]: Final reports with documentation of one or more dose reduction techniques (e.g., Automated exposure control, adjustment of the mA and/or kV according to patient size, use of iterative reconstruction technique) copyright 2011 [employer]- All Rights Reserved Chest X-Ray 02/14/19 08:51 IMPRESSION: Cardiomegaly with mild pulmonary edema. Right upper lobe pneumonia. Foot X-Ray 02/14/19 08:56 IMPRESSION: 1. Diffuse soft tissue swelling about the foot without definitive evidence of osteomyelitis. Ulceration along the plantar aspect of the hindfoot. 2. Decreased osseous mineralization with degenerative changes as above. Chest X-Ray 02/16/19 10:50 IMPRESSION: Improving pneumonia. KUB X-Ray 02/18/19 00:00 IMPRESSION: 1. Nonspecific nonobstructive bowel gas pattern. There is mild to moderate fecal residue scattered throughout the colon 2. Arterial vascular calcifications. 3. Intrauterine device projects over the central pelvis. 4. Mild degenerative changes of the skeletal structures. Plan Health Concerns: Recurrent readmission due to inability to maintain adequate self care and lack of community support. Patient continue to refuse SNF placement due to her son who recently became double amputee and live with her. She s the sole provide of care for the son!. Plan of Treatment: D/C home today with continuation of oral Levofloxacin coverage x 5 days. Goals: Continue efforts to optimize her outpatient management. Stroke Is this a Stroke Patient?: No Acute Heart Failure - Is this a Heart Failure Patient?: No
== END 2019-02-25 12:55 | disposition home health service (06) | DRG 193 ==
LOC: ER 07:40 → EH 11:29 → 3S 15:49
PROVIDERS: ADMIT Internal Medicine Geriatric Medicine; ATTEND Internal Medicine Geriatric Medicine
PROC: 30233N1 Transfusion of Nonautologous Red Blood Cells into Peripheral Vein, Percutaneous Approach (ICD-10-PCS; principal; 2019-02-21)
PROC: 30233N1 Transfusion of Nonautologous Red Blood Cells into Peripheral Vein, Percutaneous Approach (ICD-10-PCS; 2019-02-22)
DX: J18.1 Lobar pneumonia, unspecified organism (principal); I50.43 Acute on chronic combined systolic (congestive) and diastolic (congestive) heart failure; I13.0 Hypertensive heart and chronic kidney disease with heart failure and stage 1 through stage 4 chronic kidney disease, or unspecified chronic kidney disease; L97.429 Non-pressure chronic ulcer of left heel and midfoot with unspecified severity; E11.22 Type 2 diabetes mellitus with diabetic chronic kidney disease; N18.9 Chronic kidney disease, unspecified; E78.5 Hyperlipidemia, unspecified; E11.621 Type 2 diabetes mellitus with foot ulcer; D64.9 Anemia, unspecified; T45.525A Adverse effect of antithrombotic drugs, initial encounter; R82.90 Unspecified abnormal findings in urine; E66.9 Obesity, unspecified; E11.51 Type 2 diabetes mellitus with diabetic peripheral angiopathy without gangrene; B95.1 Streptococcus, group B, as the cause of diseases classified elsewhere; B96.89 Other specified bacterial agents as the cause of diseases classified elsewhere; K57.30 Diverticulosis of large intestine without perforation or abscess without bleeding; K64.9 Unspecified hemorrhoids; Z79.02 Long term (current) use of antithrombotics/antiplatelets; I25.119 Atherosclerotic heart disease of native coronary artery with unspecified angina pectoris; Z86.73 Personal history of transient ischemic attack (TIA), and cerebral infarction without residual deficits; Z95.1 Presence of aortocoronary bypass graft; I25.2 Old myocardial infarction; Z79.4 Long term (current) use of insulin; Z79.899 Other long term (current) drug therapy; Z82.49 Family history of ischemic heart disease and other diseases of the circulatory system; Z88.8 Allergy status to other drugs, medicaments and biological substances
CPT/HCPCS: 36415; 36430; 71045; 71250; 74018; 80048; 80053; 80061; 81001; 82272; 82607; 82728; 82746; 82803; 82962; 83036; 83540; 83550; 83735; 83880; 84484; 85025; 85045; 86850; 86900; 86901; 86920; 87040; 87070; 87077; 87086; 87186; 87205; 93005; 93010; 94640; 94660; 96365; 96375; 99285; J0456; J0696; J1815; J1940; J3490; J7050; J7060; J7620; P9016

== ENCOUNTER 2019-03-23 06:56 | Inpatient (IN) | payer MEDICARE, MEDICAID ==
[2019-03-23 07:50] LABS: ABSOLUTE EOSINOPHILS # (AUTO) 0.1 10^3/uL (0.0-0.6); ABSOLUTE MONOCYTES (AUTO) 0.6 10^3/uL (0.1-1.4); ABSOLUTE NEUT (AUTO) 6.8 10^3/uL (1.7-8.2); BASOPHILS % (AUTO) 0.3 % (0-2); EOSINOPHILS % (AUTO) 1.2 % (0-6); HEMATOCRIT 31.2 % (36.0-47.0); HEMOGLOBIN 10.2 g/dL (12.0-15.5); LYMPHOCYTES % (AUTO) 11.8 % (13-45); MEAN CORPUSCULAR HEMOGLOBIN 29.9 pg (27.0-33.4); MEAN CORPUSCULAR HGB CONC 32.8 g/dL (32.0-36.0); MEAN CORPUSCULAR VOLUME 91 fl (80-97); MONOCYTES % (AUTO) 7.1 % (3-13); PLATELET COUNT 228 10^3/uL (150-450); RED BLOOD COUNT 3.42 10^6/uL (3.72-5.28); RED CELL DISTRIBUTION WIDTH 16.7 % (11.5-14.0); SEGMENTED NEUTROPHILS % (AUTO) 79.6 % (42-78); TOTAL CELLS COUNTED % (AUTO) 100 %; WHITE BLOOD COUNT 8.6 10^3/uL (4.0-10.5)
[2019-03-23 07:55] LABS: INTERNATIONAL RATION (INR) 1.12; PROTHROMBIN TIME 14.5 SEC (11.4-15.4)
[2019-03-23 07:56] LABS: ALBUMIN 4.1 g/dL (3.5-5.0); ALKALINE PHOSPHATASE 284 U/L (38-126); ANION GAP 10 (5-19); ASPARTATE AMINO TRANSFERASE 28 U/L (14-36); BILIRUBIN,DIRECT 0.3 mg/dL (0.0-0.4); BILIRUBIN,TOTAL 1.3 mg/dL (0.2-1.3); BLOOD UREA NITROGEN 34 mg/dL (7-20); CALCIUM 10.1 mg/dL (8.4-10.2); CARBON DIOXIDE 25 mmol/L (22-30); CHLORIDE 106 mmol/L (98-107); GLUCOSE 169 mg/dL (75-110); POTASSIUM 4.9 mmol/L (3.6-5.0); TOTAL PROTEIN 9.4 g/dL (6.3-8.2)
[2019-03-23 07:59] LABS: APPEARANCE,URINE CLEAR; BILIRUBIN,URINE NEGATIVE (NEGATIVE); COLOR,URINE YELLOW; GLUCOSE, URINE NEGATIVE (NEGATIVE); KETONES,URINE NEGATIVE (NEGATIVE); LEUKOCYTE ESTERASE,URINE MODERATE (NEGATIVE); NITRITE,URINE NEGATIVE (NEGATIVE); PROTEIN,URINE 100 mg/dL (NEGATIVE); UROBILINOGEN,URINE NEGATIVE mg/dL (<2.0)
--- NOTE | 2019-03-23 08:32 | RADIOLOGY REPORT (SQ) ---
EXAM DESCRIPTION: CHEST SINGLE VIEW COMPLETED DATE/TIME: 03/23/2019 8:21 am REASON FOR STUDY: shortness of breath COMPARISON: CT chest 02/14/2019 AP chest 11/20/2018, 02/16/2019 EXAM PARAMETERS: NUMBER OF VIEWS: One view. TECHNIQUE: Single frontal radiographic view of the chest acquired. RADIATION DOSE: NA LIMITATIONS: None. FINDINGS: LUNGS AND PLEURA: There is persistent airspace disease in the right upper lobe and in the periphery of the left lower lobe, edema versus pneumonia. No pleural effusions. No pneumothorax. MEDIASTINUM AND HILAR STRUCTURES: No masses. Contour normal. HEART AND VASCULAR STRUCTURES: Moderate cardiomegaly. Old sternotomy BONES: No acute findings. HARDWARE: None in the chest. OTHER: No other significant finding. IMPRESSION: Patchy airspace disease worrisome for pulmonary edema TECHNICAL DOCUMENTATION: JOB ID: [id number] [employer] All Rights Reserved Reading location - IP/workstation name: [email or web address]
[2019-03-23] MEDS ORDERED: FUROSEMIDE INJ/PF 20 MG/2 ML SDV IV ONE (08:49)
--- NOTE | 2019-03-23 08:59 | ER Document Report ---
ED General - General Chief Complaint: Breathing Difficulty Stated Complaint: TROUBLE BREATHING Time Seen by Provider: 03/23/19 08:09 Notes: 63-year-old female with past medical history of CHF presents with difficulty breathing for the past several days and bilateral lower leg. Patient states dyspnea is worse on laying back and on exertion. Patient states she has some chest heaviness. Patient states her left leg always swells more than her righth owever this is her usual. Patient reports compliance with her Lasix. TRAVEL OUTSIDE OF THE [place] IN LAST 30 DAYS: No - Related Data Allergies/Adverse Reactions: duloxetine Allergy (Verified 11/20/18 13:35) pregabalin [From Lyrica] Allergy (Verified 11/20/18 12:21) Swelling of hands and face Past Medical History - Social History Smoking Status: Unknown if Ever Smoked Family History: CAD, Hyperlipidemia, Hypertension Patient has suicidal ideation: No Patient has homicidal ideation: No - Past Medical History Cardiac Medical History: Reports: Hx Congestive Heart Failure, Hx Coronary Artery Disease, Hx Heart Attack, Hx Hypercholesterolemia, Hx Hypertension, Hx Peripheral Vascular Disease Denies: Hx Atrial Fibrillation Pulmonary Medical History: Reports: Hx Bronchitis Denies: Hx Asthma, Hx COPD, Hx Pneumonia, Hx Tuberculosis Neurological Medical History: Reports: Hx Cerebrovascular Accident - 2007. Denies: Hx Seizures, Hx Parkinson's Disease Endocrine Medical History: Reports: Hx Diabetes Mellitus Type 1, Hx Diabetes Mellitus Type 2 Renal/ Medical History: Denies: Hx End Stage Renal Disease, Hx Peritoneal Dialysis Malignancy Medical History: GI Medical History: Reports: Hx Diverticulitis - diverticulosis. Denies: Hx Gastroesophageal Reflux Disease, Hx Hiatal Hernia Musculoskeletal Medical History: Denies Hx Arthritis, Denies Hx Systemic Lupus Erythematosus Skin Medical History: Denies Hx MRSA Psychiatric Medical History: Denies: Hx Bipolar Disorder, Hx Depression Traumatic Medical History: Infectious Medical History: Past Surgical History: Reports: Hx Cardiac Surgery - quad bypass, Hx Coronary Artery Bypass Graft - July 31 2011, Hx Tonsillectomy, Hx Vascular Surgery. Denies: Hx Appendectomy, Hx Cardiac Catheterization, Hx Section, Hx Cholecystectomy, Hx Hysterectomy, Hx Mastectomy, Hx Tubal Ligation - Immunizations Immunizations up to date: No Hx Diphtheria, Pertussis, Tetanus Vaccination: Yes Hx Pneumococcal Vaccination: 02/04/11 Review of Systems - Review of Systems Notes: Constitutional: Negative for fever. HENT: Negative for sore throat. Eyes: Negative for visual changes. Cardiovascular: Positive for chest heaviness. Respiratory: Positive for shortness of breath. Gastrointestinal: Negative for abdominal pain, vomiting or diarrhea. Genitourinary: Negative for dysuria. Musculoskeletal: Negative for back pain. Skin: Negative for rash. Neurological: Negative for headaches, weakness or numbness. 10 point ROS negative except as marked above and in HPI. Physical Exam - Vital signs Vitals: Resp Pulse Ox 13 94 03/23/19 07:08 03/23/19 07:08 - Notes Notes: GENERAL: Well-appearing, well-nourished and in no acute distress. HEAD: Atraumatic, normocephalic. EYES: Pupils equal round and reactive to light, extraocular movements intact, sclera anicteric, conjunctiva are normal. NECK: Normal range of motion, supple without lymphadenopathy or JVD. LUNGS: Decreased breath sounds in lower lung rangel. Breath sounds otherwise clear to auscultation bilaterally and equal. No wheezes rales or rhonchi. HEART: Regular rate and rhythm without murmurs, rubs or gallops. ABDOMEN: Soft, nontender, normoactive bowel sounds. No guarding, no rebound. No masses appreciated. EXTREMITIES: Bilateral lower leg edema noted with left (2+) worse than right (1+). Normal range of motion.. No clubbing or cyanosis. NEUROLOGICAL: Cranial nerves II through XII grossly intact. Normal speech, normal gait. PSYCH: Normal mood, normal affect. SKIN: Warm, Dry, normal turgor, no rashes or lesions noted. Course - Re-evaluation Re-evalutation: 03/23/19 63 y/o female with CHF presents with difficulty breathing and bilateral lower leg edema. Exam concerning for CHF exacerbation. CXR shows pulmonary edema. BNP 4750. Discussed with attending, Dr. Melo, who agrees with plan of care to give IV Lasix and admit to medicine. 03/23/19 09:[address] Duran who accepted pt for admission. States will decide on type of bed after seeing pt. - Vital Signs Vital signs: Temp Pulse Resp BP Pulse Ox 98 F 14 143/73 H 95 03/23/19 07:42 03/23/19 09:00 03/23/19 08:02 03/23/19 09:00 - Laboratory Result Diagrams: 03/23/19 07:25 03/23/19 07:25 Laboratory results interpreted by me: 03/23/19 03/23/19 03/23/19 07:25 07:25 07:25 RBC 3.42 L Hgb 10.2 L Hct 31.2 L RDW 16.7 H Lymph % (Auto) 11.8 L Seg Neutrophils % 79.6 H BUN 34 H Glucose 169 H Alkaline Phosphatase 284 H NT-Pro-B Natriuret Pep 4750 H Total Protein 9.4 H Urine Protein Ur Leukocyte Esterase 03/23/19 07:40 RBC Hgb Hct RDW Lymph % (Auto) Seg Neutrophils % BUN Glucose Alkaline Phosphatase NT-Pro-B Natriuret Pep Total Protein Urine Protein 100 H Ur Leukocyte Esterase MODERATE H Discharge - Discharge Clinical Impression: Acute CHF Qualifiers: Heart failure type: unspecified Qualified Code(s): I50.9 - Heart failure, unspecified Condition: Stable Disposition: ADMITTED INPATIENT Admitting Provider: Roger (Hospitalist)
[2019-03-23] MEDS ORDERED: ONDANSETRON HCL INJ/PF 4 MG/2 ML SDV IV PRN (09:55)
[2019-03-23] MEDS ORDERED: ACETAMINOPHEN 325 MG TABLET PO PRN (09:55)
[2019-03-23] MEDS ORDERED: TEMAZEPAM 7.5 MG CAPSULE PO PRN (09:55)
[2019-03-23] MEDS ORDERED: OXYCODONE-ACETAMINOPHEN 5-325 MG TABLET PO PRN (09:55)
[2019-03-23] MEDS ORDERED: PROMETHAZINE HCL INJ 25 MG/1 ML VIAL IV PRN (09:55)
[2019-03-23] MEDS ORDERED: IPRATROPIUM/ALBUTEROL 0.5-2.5 MG/3 ML AMPUL NEB PRN (09:55)
[2019-03-23] MEDS ORDERED: DOCUSATE SODIUM 100 MG CAPSULE PO SCH (10:00)
--- NOTE | 2019-03-23 11:14 | EKG REPORT ---
SEVERITY:- ABNORMAL ECG - SINUS RHYTHM MULTIFORM VENTRICULAR PREMATURE COMPLEXES PROBABLE LEFT VENTRICULAR HYPERTROPHY : Confirmed by: Charlette Harding MD 23-Mar-2019 11:13:23
[2019-03-23] MEDS ORDERED: NITROGLYCERIN 0.4 MG/TAB 25 TAB/BOTTLE SL PRN (12:48)
[2019-03-23] MEDS ORDERED: (PENDING PHARMACY ID) (Oxycodone Hcl/Acetaminophen [Percocet 7.5-325 Mg Tablet] 1 TAB) PO PRN (12:48)
[2019-03-23] MEDS ORDERED: DOCUSATE SODIUM 100 MG CAPSULE PO PRN (12:48)
[2019-03-23] MEDS ORDERED: FUROSEMIDE 20 MG TABLET PO SCH (13:00)
[2019-03-23] MEDS ORDERED: (PENDING PHARMACY ID) (Insulin Degludec [Tresiba Flextouch U-100] 40 UNIT) SUBCUT SCH (13:00)
[2019-03-23] MEDS ORDERED: MULTIVIT TX WITH IRON MINERALS PO SCH (13:00)
[2019-03-23 13:39] LABS: INTERNATIONAL RATION (INR) 1.17
[2019-03-23 13:52] LABS: ARTERIAL BLOOD BASE EXCESS 2.2 mmol/L; ARTERIAL BLOOD HCO3 26.5 mmol/L (20-24); ARTERIAL BLOOD PCO2 39.8 mmHg (35-45); ARTERIAL BLOOD PH 7.44 (7.35-7.45); ARTERIAL BLOOD TOTAL CO2 27.7 mmol/L (21-25)
[2019-03-23 13:53] LABS: ARTERIAL BLOOD FIO2 ROOM AIR
[2019-03-23 14:00] LABS: CREATINE KINASE MB 0.67 ng/mL (<4.55); TROPONIN I 0.013 ng/mL
[2019-03-23] MEDS ORDERED: HEPARIN SOD (PORCINE) 5,000 UNIT/ML 1 ML VIAL SUBCUT SCH (14:00)
[2019-03-23 14:04] LABS: FREE T4 (FREE THYROXINE) 1.26 ng/dL (0.78-2.19)
[2019-03-23] MEDS: VALSARTAN 160 MG TABLET PO SCH (14:17)
[2019-03-23] MEDS: AMLODIPINE BESYLATE 10 MG TABLET PO SCH (14:17)
[2019-03-23] MEDS: ASCORBIC ACID 500 MG TABLET PO SCH (14:17)
[2019-03-23] MEDS: FERROUS SULFATE 325 MG TABLET PO SCH (14:17)
[2019-03-23] MEDS: CLOPIDOGREL BISULFATE 75 MG TABLET PO SCH (14:17)
[2019-03-23 14:18] LABS: THYROID STIMULATING HORMONE 0.72 uIU/mL (0.47-4.68)
[2019-03-23] MEDS: OXYCODONE HCL IR 5 MG TABLET PO PRN ×2 (14:18→21:14)
[2019-03-23] MEDS: FUROSEMIDE INJ/PF 40 MG/4 ML SDV IV SCH (14:18)
[2019-03-23] MEDS: OXYCODONE-ACETAMINOPHEN 5-325 MG TABLET PO PRN ×2 (14:18→21:13)
--- NOTE | 2019-03-23 16:08 | PDOC H&P ---
History of Present Illness Admission Date/PCP: 03/23/19 09:17 STEPHAN TAFOYA History of Present Illness: JAVIER BURGER is a 63 year old female, She has history of chronic combined systolic and diastolic heart failure, multiple comorbid conditions, she was just recently discharged from this hospital within the last 30 days. She came to the emergency room for evaluation of shortness of breath extremity swelling in the ER she was evaluated, it was felt that she has decompensated chronic systolic heart failure. Hospital admission was advised for this patient, when I saw her on the floor and I asked why she came to the ER, she stated that is the same problem she is always had, she said the p.o. furosemide typically is effective initially after awhile it becomes refractory and not effective Past Medical History Cardiac Medical History: Reports: Congestive Heart Failure, Coronary Artery Disease, Myocardial Infarction, Hyperlipidema, Hypertension, Peripheral Vascular Disease Pulmonary Medical History: Reports: Bronchitis Endocrine Medical History: Reports: Diabetes Mellitus Type 2 Malignancy Medical History: GI Medical History: Reports: Diverticulitis - diverticulosis Musculoskeltal Medical History: Psychiatric Medical History: Infectious Medical History: Past Surgical History Past Surgical History: Reports: Coronary Artery Bypass Graft - July 31 2011, Tonsillectomy, Vascular Surgery Social History Smoking Status: Former Smoker Electronic Cigarette use?: No Frequency of Alcohol Use: None Hx Recreational Drug Use: No Drugs: None Hx Prescription Drug Abuse: No - Advance Directive Resuscitation Status: Full Code Family History Family History: CAD, Hyperlipidemia, Hypertension Parental Family History Reviewed: Yes Children Family History Reviewed: Yes Sibling(s) Family History Reviewed.: Yes Medication/Allergy Home Medications: RX: Amlodipine Besylate [Norvasc 10 mg Tablet] 10 mg PO DAILY 02/14/19 RX: Apixaban [Eliquis 2.5 mg Tablet] 2.5 mg PO BID 02/14/19 RX: Ascorbic Acid [Vitamin C 500 mg Tablet] 500 mg PO DAILY 02/14/19 RX: Atorvastatin Calcium [Lipitor 20 mg Tablet] 20 mg PO QHS 02/14/19 RX: Docusate Sodium [Colace 100 mg Capsule] 100 mg PO BIDP PRN 02/14/19 RX: Ferrous Sulfate [Feosol 325 mg Tablet] 325 mg PO DAILY 02/14/19 RX: Furosemide [Lasix 20 mg Tablet] 40 mg PO BID 02/14/19 RX: Nitroglycerin [Nitrostat 0.4 mg (1/150 Gr) Tabs 25/Bottle] 0.4 mg SL Q5MP PRN 02/14/19 RX: Oxycodone HCl/Acetaminophen [Percocet 7.5-325 mg Tablet] 1 tab PO Q6HP PRN 02/14/19 RX: Valsartan [Diovan 160 mg Tablet] 160 mg PO DAILY 02/14/19 Insulin Aspart [Novolog Flexpen] 0 unit SQ .SLIDING SCALE 03/23/19 Multivit,Tx with Iron,Minerals [Thera-M] 1 each PO DAILY 03/23/19 RX: Clopidogrel Bisulfate [Plavix 75 mg Tablet] 75 mg PO DAILY 03/23/19 RX: Gabapentin [Neurontin 300 mg Capsule] 300 mg PO Q8 03/23/19 RX: Insulin Degludec [Tresiba Flextouch U-100] 40 unit SQ DAILY 03/23/19 Allergies/Adverse Reactions: duloxetine Allergy (Verified 11/20/18 13:35) pregabalin [From Lyrica] Allergy (Verified 11/20/18 12:21) Swelling of hands and face Review of Systems Constitutional: PRESENT: as per HPI Eyes: ABSENT: visual disturbances Ears: ABSENT: hearing changes Cardiovascular: PRESENT: edema, orthropnea Respiratory: PRESENT: dyspnea Gastrointestinal: ABSENT: abdominal pain, constipation, diarrhea, hematemesis, hematochezia, nausea, vomiting Genitourinary: ABSENT: dysuria, hematuria Musculoskeletal: ABSENT: joint swelling Integumentary: ABSENT: rash, wounds Neurological: ABSENT: abnormal gait, abnormal speech, confusion, dizziness, focal weakness, syncope Psychiatric: ABSENT: anxiety, depression, homidical ideation, suicidal ideation Endocrine: ABSENT: cold intolerance, heat intolerance, menstrual abnormalities, polydipsia, polyuria Hematologic/Lymphatic: ABSENT: easy bleeding, easy bruising, lymphadenopathy Physical Exam Vital Signs: Temp Pulse Resp BP Pulse Ox 99.7 F 83 16 150/67 H 97 03/23/19 13:05 03/23/19 14:00 03/23/19 13:05 03/23/19 13:05 03/23/19 13:05 Intake & Output 03/22/19 03/23/19 03/24/19 06:59 06:59 06:59 Output Total 1400 Balance -1400 Weight 82.4 kg General appearance: PRESENT: no acute distress Head exam: PRESENT: atraumatic, normocephalic Eye exam: PRESENT: PERRLA Ear exam: PRESENT: normal external ear exam Mouth exam: PRESENT: moist, tongue midline Neck exam: PRESENT: full ROM Respiratory exam: PRESENT: crackles, rhonchi Cardiovascular exam: PRESENT: RRR, +S1, +S2 GI/Abdominal exam: PRESENT: soft Rectal exam: PRESENT: deferred Neurological exam: PRESENT: alert, CN II-XII grossly intact Skin exam: PRESENT: dry, intact, warm. ABSENT: cyanosis, rash Results Laboratory Results: 03/23/19 07:25 03/23/19 07:25 03/23/19 03/23/19 03/23/19 07:25 07:25 07:40 WBC 8.6 RBC 3.42 L Hgb 10.2 L Hct 31.2 L MCV 91 MCH 29.9 MCHC 32.8 RDW 16.7 H Plt Count 228 Seg Neutrophils % 79.6 H Carbonic Acid HCO3/H2CO3 Ratio ABG pH ABG pCO2 ABG pO2 ABG HCO3 ABG O2 Saturation ABG Base Excess FiO2 Sodium 140.6 Potassium 4.9 Chloride 106 Carbon Dioxide 25 Anion Gap 10 BUN 34 H Creatinine 0.79 Est GFR ( Amer) > 60 Glucose 169 H Calcium 10.1 Magnesium Total Bilirubin 1.3 AST 28 Alkaline Phosphatase 284 H Total Protein 9.4 H Albumin 4.1 TSH Free T4 Urine Color YELLOW Urine Appearance CLEAR Urine pH 7.0 Ur Specific [place] 1.010 Urine Protein 100 H Urine Glucose (UA) NEGATIVE Urine Ketones NEGATIVE Urine Blood NEGATIVE Urine Nitrite NEGATIVE Ur Leukocyte Esterase MODERATE H Urine WBC (Auto) 10 Urine RBC (Auto) 1 03/23/19 03/23/19 03/23/19 13:19 13:19 13:30 WBC RBC Hgb Hct MCV MCH MCHC RDW Plt Count Seg Neutrophils % Carbonic Acid 1.20 HCO3/H2CO3 Ratio 22:1 ABG pH 7.44 ABG pCO2 39.8 ABG pO2 67.0 L ABG HCO3 26.5 H ABG O2 Saturation 94.0 ABG Base Excess 2.2 FiO2 ROOM AIR Sodium Potassium Chloride Carbon Dioxide Anion Gap BUN Creatinine Est GFR ( Amer) Glucose Calcium Magnesium 1.9 Total Bilirubin AST Alkaline Phosphatase Total Protein Albumin TSH 0.72 Free T4 1.26 Urine Color Urine Appearance Urine pH Ur Specific [place] Urine Protein Urine Glucose (UA) Urine Ketones Urine Blood Urine Nitrite Ur Leukocyte Esterase Urine WBC (Auto) Urine RBC (Auto) 03/23/19 03/23/19 03/23/19 07:25 07:25 13:19 Creatine Kinase 39 CK-MB (CK-2) Troponin I 0.014 NT-Pro-B Natriuret Pep 4750 H 03/23/19 13:19 Creatine Kinase CK-MB (CK-2) 0.67 Troponin I 0.013 NT-Pro-B Natriuret Pep Impressions: Chest X-Ray 03/23/19 07:28 IMPRESSION: Patchy airspace disease worrisome for pulmonary edema Assessment & Plan - Diagnosis (1) Acute combined systolic and diastolic heart failure Is this a current diagnosis for this admission?: Yes Plan: Continue, beta-genaro, ARB, anticoagulant, change p.o. furosemide to IV
[2019-03-23] MEDS: APIXABAN 2.5 MG TABLET PO SCH (17:23)
[2019-03-23] MEDS ORDERED: GLUCAGON,HUMAN RECOMB 1 MG INJ IM PRN (17:30)
[2019-03-23] MEDS ORDERED: DEXTROSE 50%-WATER SYRINGE 12.5 GM/25 ML DOSE IV PRN (17:30)
[2019-03-23] MEDS ORDERED: DEXTROSE 40% GEL 15 GM TUBE PO PRN (17:30)
[2019-03-23] MEDS ORDERED: DEXTROSE 50%-WATER SYRINGE 25 GM/50 ML DOSE IV PRN (17:30)
[2019-03-23] MEDS ORDERED: DEXTROSE 40% GEL 15 GM TUBE X 2 PO PRN (17:30)
[2019-03-23 19:30] LABS: APPEARANCE,URINE CLEAR; BILIRUBIN,URINE NEGATIVE (NEGATIVE); COLOR,URINE STRAW; GLUCOSE, URINE NEGATIVE (NEGATIVE); KETONES,URINE NEGATIVE (NEGATIVE); LEUKOCYTE ESTERASE,URINE NEGATIVE (NEGATIVE); NITRITE,URINE NEGATIVE (NEGATIVE); PROTEIN,URINE NEGATIVE (NEGATIVE); URINE SPECIFIC GRAVITY 1.006; UROBILINOGEN,URINE NEGATIVE mg/dL (<2.0)
[2019-03-23 19:53] LABS: CREATINE KINASE MB 0.43 ng/mL (<4.55); TROPONIN I 0.014 ng/mL
[2019-03-23] MEDS: INSULIN LISPRO 100 UNIT/ML 3 ML VIAL SUBCUT SCH (21:06)
[2019-03-23] MEDS: ATORVASTATIN CALCIUM 20 MG TABLET PO SCH (21:13)
[2019-03-23] MEDS: GABAPENTIN 300 MG CAPSULE PO SCH (21:14)
--- NOTE | 2019-03-23 22:15 | EKG REPORT ---
SEVERITY:- ABNORMAL ECG - SINUS RHYTHM LEFT AXIS DEVIATION LEFT VENTRICULAR HYPERTROPHY : Confirmed by: Charlette Harding MD 23-Mar-2019 22:15:13
[2019-03-24 01:44] LABS: CREATINE KINASE MB 0.34 ng/mL (<4.55); TROPONIN I 0.013 ng/mL
[2019-03-24 05:51] LABS: ABSOLUTE EOSINOPHILS # (AUTO) 0.1 10^3/uL (0.0-0.6); ABSOLUTE LYMPHOCYTES (AUTO) 1.6 10^3/uL (0.5-4.7); ABSOLUTE MONOCYTES (AUTO) 0.6 10^3/uL (0.1-1.4); ABSOLUTE NEUT (AUTO) 3.6 10^3/uL (1.7-8.2); BASOPHILS % (AUTO) 0.3 % (0-2); EOSINOPHILS % (AUTO) 2.4 % (0-6); HEMATOCRIT 27.9 % (36.0-47.0); HEMOGLOBIN 9.3 g/dL (12.0-15.5); MEAN CORPUSCULAR HEMOGLOBIN 29.9 pg (27.0-33.4); MEAN CORPUSCULAR HGB CONC 33.2 g/dL (32.0-36.0); MEAN CORPUSCULAR VOLUME 90 fl (80-97); MONOCYTES % (AUTO) 9.8 % (3-13); PLATELET COUNT 200 10^3/uL (150-450); RED CELL DISTRIBUTION WIDTH 16.3 % (11.5-14.0); SEGMENTED NEUTROPHILS % (AUTO) 60.5 % (42-78); TOTAL CELLS COUNTED % (AUTO) 100 %
[2019-03-24] MEDS ORDERED: PANTOPRAZOLE SODIUM 40 MG TABLET.DR PO SCH (06:00)
[2019-03-24] MEDS: GABAPENTIN 300 MG CAPSULE PO SCH ×3 (06:04→21:43)
[2019-03-24 06:36] LABS: ALBUMIN 3.1 g/dL (3.5-5.0); ALKALINE PHOSPHATASE 214 U/L (38-126); ASPARTATE AMINO TRANSFERASE 23 U/L (14-36); BILIRUBIN,DIRECT 0.2 mg/dL (0.0-0.4); BILIRUBIN,TOTAL 0.9 mg/dL (0.2-1.3); CHOLESTEROL 158.57 mg/dL (0-200); TOTAL PROTEIN 7.3 g/dL (6.3-8.2); TRIGLYCERIDES 73 mg/dL (<150)
[2019-03-24 06:50] LABS: DIRECT LDL 92 mg/dL (<100)
[2019-03-24] MEDS: INSULIN LISPRO 100 UNIT/ML 3 ML VIAL SUBCUT SCH ×4 (07:56→21:43)
[2019-03-24] MEDS: APIXABAN 2.5 MG TABLET PO SCH ×2 (09:47→18:05)
[2019-03-24] MEDS: FERROUS SULFATE 325 MG TABLET PO SCH (09:47)
[2019-03-24] MEDS: AMLODIPINE BESYLATE 10 MG TABLET PO SCH (09:47)
[2019-03-24] MEDS: VALSARTAN 160 MG TABLET PO SCH (09:48)
[2019-03-24] MEDS: MULTIVITAMIN TABLET PO SCH (09:48)
[2019-03-24] MEDS: ASCORBIC ACID 500 MG TABLET PO SCH (09:48)
[2019-03-24] MEDS: CLOPIDOGREL BISULFATE 75 MG TABLET PO SCH (09:48)
[2019-03-24] MEDS: FUROSEMIDE INJ/PF 40 MG/4 ML SDV IV SCH (09:49)
[2019-03-24] MEDS: OXYCODONE HCL IR 5 MG TABLET PO PRN (09:58)
[2019-03-24] MEDS: OXYCODONE-ACETAMINOPHEN 5-325 MG TABLET PO PRN (09:59)
--- NOTE | 2019-03-24 21:40 | PDOC PROGRESS REPORT ---
Subjective Progress Note for:: 03/24/19 Subjective:: Patient denied any chest pain or difficulty with breathing. Urine output is much better on IV Lasix therapy. Patient admitted to noncompliance with fluid intake restriction for several days due to increased thirst. She denied fever or chills. No nausea, vomiting, or abdominal pain. she reported attending wound care center for her left foot heel region wound. Reason For Visit: CHF EXACERBATION Physical Exam Vital Signs: Temp Pulse Resp BP Pulse Ox 98.3 F 72 17 137/61 H 98 03/24/19 11:51 03/24/19 11:51 03/24/19 11:51 03/24/19 11:51 03/24/19 11:51 Intake & Output 03/23/19 03/24/19 03/25/19 06:59 06:59 06:59 Intake Total 1940 400 Output Total 1760 Balance 180 400 Weight 82.5 kg 82.5 kg General appearance: PRESENT: obese Head exam: PRESENT: atraumatic, normocephalic Eye exam: PRESENT: conjunctiva pink, EOMI, PERRLA. ABSENT: scleral icterus Ear exam: PRESENT: normal external ear exam Mouth exam: PRESENT: moist Teeth exam: PRESENT: poor dentation Respiratory exam: PRESENT: clear to auscultation jerrica, decreased breath sounds - at lung bases Cardiovascular exam: PRESENT: RRR. ABSENT: diastolic murmur, rubs, systolic murmur Vascular exam: PRESENT: pallor GI/Abdominal exam: PRESENT: normal bowel sounds, soft. ABSENT: distended, guarding, mass, organolmegaly, rebound, tenderness Rectal exam: PRESENT: deferred Extremities exam: PRESENT: pedal edema - 2 + bilateral piting edema Musculoskeletal exam: PRESENT: deformity - related to multiple joints involvemen with arthritis anbd left foot diabetic ulcer lesion Neurological exam: PRESENT: alert, awake, oriented to person, oriented to place, oriented to time, oriented to situation, CN II-XII grossly intact. ABSENT: motor sensory deficit Psychiatric exam: PRESENT: appropriate affect, normal mood. ABSENT: homicidal ideation, suicidal ideation Skin exam: PRESENT: dry, warm, other - Left foot heel region with serosanguinous draining open wound. Results Laboratory Results: 03/24/19 04:47 03/23/19 07:25 03/23/19 03/24/19 03/24/19 18:55 04:47 04:47 WBC 6.0 RBC 3.10 L Hgb 9.3 L Hct 27.9 L MCV 90 MCH 29.9 MCHC 33.2 RDW 16.3 H Plt Count 200 Seg Neutrophils % 60.5 Total Bilirubin 0.9 AST 23 Alkaline Phosphatase 214 H Total Protein 7.3 Albumin 3.1 L Triglycerides 73 Cholesterol 158.57 LDL Cholesterol Direct 92 VLDL Cholesterol 15.0 HDL Cholesterol 34 L Urine Color STRAW Urine Appearance CLEAR Urine pH 5.0 Ur Specific [place] 1.006 Urine Protein NEGATIVE Urine Glucose (UA) NEGATIVE Urine Ketones NEGATIVE Urine Blood NEGATIVE Urine Nitrite NEGATIVE Ur Leukocyte Esterase NEGATIVE Urine WBC (Auto) 1 Urine RBC (Auto) 1 03/23/19 03/23/19 03/23/19 07:25 07:25 13:19 Creatine Kinase 39 CK-MB (CK-2) Troponin I 0.014 NT-Pro-B Natriuret Pep 4750 H 03/23/19 03/23/19 03/23/19 13:19 18:45 18:45 Creatine Kinase 32 CK-MB (CK-2) 0.67 0.43 Troponin I 0.013 0.014 NT-Pro-B Natriuret Pep 03/24/19 03/24/19 00:58 00:58 Creatine Kinase 34 CK-MB (CK-2) 0.34 Troponin I 0.013 NT-Pro-B Natriuret Pep Impressions: Chest X-Ray 03/23/19 07:28 IMPRESSION: Patchy airspace disease worrisome for pulmonary edema Assessment & Plan - Diagnosis (1) Acute on chronic combined systolic and diastolic CHF, NYHA class 3 Is this a current diagnosis for this admission?: Yes Plan: Continue IV Lasix therapy. Maintain on other anti CHF medication management, dietary and fluid restrictions. (2) Hypertension Qualifiers: Hypertension type: essential hypertension Qualified Code(s): I10 - Essential (primary) hypertension Is this a current diagnosis for this admission?: Yes Plan: Continue all current medication management. (3) CAD (coronary artery disease) Qualifiers: Coronary Disease-Associated Artery/Lesion type: unspecified vessel or lesion type [place] vs. transplanted heart: [place] heart Associated angina: without angina Qualified Code(s): I25.10 - Atherosclerotic heart disease of [place] coronary artery without angina pectoris Is this a current diagnosis for this admission?: Yes Plan: Continue all current medication management. (4) Hyperlipidemia Qualifiers: Hyperlipidemia type: unspecified Qualified Code(s): E78.5 - Hyperlipidemia, unspecified Is this a current diagnosis for this admission?: Yes Plan: Continue all current medication management. (5) Diabetes mellitus type 2 in obese Is this a current diagnosis for this admission?: Yes Plan: Continue all current medication management. 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 Daily dry dressing. Obtain dressing material information from wound care center. (7) COPD (chronic obstructive pulmonary disease) Qualifiers: COPD type: unspecified COPD Qualified Code(s): J44.9 - Chronic obstructive pulmonary disease, unspecified Is this a current diagnosis for this admission?: Yes Plan: Continue all current medication management. (8) Chronic use of opiate for therapeutic purpose Is this a current diagnosis for this admission?: Yes Plan: Continue all current medication management. (9) Obesity (BMI 30-39.9) Is this a current diagnosis for this admission?: Yes Plan: Continue all current medication management. - Time Time Spent with patient: 25-34 minutes Level of Care: IMCU Medications reviewed and adjusted accordingly: Yes Anticipated discharge: Home with Homehealth Within: Other - Inpatient Certification Based on my medical assessment, after consideration of the patient's comorbidities, presenting symptoms, or acuity I expect that the services needed warrant INPATIENT care.: Yes I certify that my determination is in accordance with my understanding of Medicare's requirements for reasonable and necessary INPATIENT services [42 CFR 412.3e].: Yes Medical Necessity: Significant Comorbidiites Make Outpatient Treatment Too Risky, Need Close Monitoring Due to Risk of Patient Decompensation, Need For Continuous Telemetry Monitoring, Risk of Complication if Not Cared For in Hospital, Risk of Diagnosis Which Will Require Inpatient Eval/Care/Monitoring Post Hospital Care: D/C Reimbursement Coordinator Documentation - Plan Summary Plan Summary: Continue all current medication management.
[2019-03-24] MEDS: ATORVASTATIN CALCIUM 20 MG TABLET PO SCH (21:43)
[2019-03-25] MEDS: OXYCODONE HCL IR 5 MG TABLET PO PRN ×2 (00:47→19:33)
[2019-03-25] MEDS: OXYCODONE-ACETAMINOPHEN 5-325 MG TABLET PO PRN ×2 (00:48→19:33)
[2019-03-25] MEDS: PANTOPRAZOLE SODIUM 40 MG TABLET.DR PO SCH (05:13)
[2019-03-25] MEDS: GABAPENTIN 300 MG CAPSULE PO SCH ×3 (05:13→21:25)
[2019-03-25 05:18] LABS: ABSOLUTE EOSINOPHILS # (AUTO) 0.2 10^3/uL (0.0-0.6); ABSOLUTE LYMPHOCYTES (AUTO) 1.7 10^3/uL (0.5-4.7); ABSOLUTE MONOCYTES (AUTO) 0.6 10^3/uL (0.1-1.4); ABSOLUTE NEUT (AUTO) 3.7 10^3/uL (1.7-8.2); BASOPHILS % (AUTO) 0.3 % (0-2); EOSINOPHILS % (AUTO) 2.5 % (0-6); HEMATOCRIT 29.2 % (36.0-47.0); HEMOGLOBIN 9.6 g/dL (12.0-15.5); LYMPHOCYTES % (AUTO) 27.6 % (13-45); MEAN CORPUSCULAR HEMOGLOBIN 29.7 pg (27.0-33.4); MEAN CORPUSCULAR VOLUME 90 fl (80-97); MONOCYTES % (AUTO) 9.7 % (3-13); PLATELET COUNT 198 10^3/uL (150-450); RED BLOOD COUNT 3.24 10^6/uL (3.72-5.28); RED CELL DISTRIBUTION WIDTH 16.2 % (11.5-14.0); SEGMENTED NEUTROPHILS % (AUTO) 59.9 % (42-78); TOTAL CELLS COUNTED % (AUTO) 100 %; WHITE BLOOD COUNT 6.2 10^3/uL (4.0-10.5)
[2019-03-25 09:11] LABS: ANION GAP 10 (5-19); BLOOD UREA NITROGEN 38 mg/dL (7-20); CALCIUM 9.1 mg/dL (8.4-10.2); CARBON DIOXIDE 26 mmol/L (22-30); CHLORIDE 107 mmol/L (98-107); GLUCOSE 105 mg/dL (75-110); POTASSIUM 4.4 mmol/L (3.6-5.0)
[2019-03-25] MEDS: INSULIN LISPRO 100 UNIT/ML 3 ML VIAL SUBCUT SCH ×4 (09:30→21:24)
[2019-03-25] MEDS: CLOPIDOGREL BISULFATE 75 MG TABLET PO SCH (09:34)
[2019-03-25] MEDS: ASCORBIC ACID 500 MG TABLET PO SCH (09:34)
[2019-03-25] MEDS: FERROUS SULFATE 325 MG TABLET PO SCH (09:34)
[2019-03-25] MEDS: VALSARTAN 160 MG TABLET PO SCH (09:34)
[2019-03-25] MEDS: FUROSEMIDE INJ/PF 40 MG/4 ML SDV IV SCH (09:34)
[2019-03-25] MEDS: AMLODIPINE BESYLATE 10 MG TABLET PO SCH (09:34)
[2019-03-25] MEDS: MULTIVITAMIN TABLET PO SCH (09:34)
[2019-03-25] MEDS: APIXABAN 2.5 MG TABLET PO SCH ×2 (09:34→17:32)
--- NOTE | 2019-03-25 18:05 | PDOC PROGRESS REPORT ---
Subjective Progress Note for:: 03/25/19 Subjective:: Patient denied any chest pain or difficulty with breathing. No fever or chills. No nausea, vomiting, or abdominal pain. Fluid intake in excess of 1liter. Reason For Visit: DECOMPENSATED ACUTE ON CHRONIC SYSTOLIC CHF Physical Exam Vital Signs: Temp Pulse Resp BP Pulse Ox 98.3 F 71 17 140/61 H 98 03/25/19 07:33 03/25/19 07:33 03/25/19 07:33 03/25/19 07:33 03/25/19 07:33 Intake & Output 03/24/19 03/25/19 03/26/19 06:59 06:59 06:59 Intake Total 1940 1546 Output Total 1760 1875 Balance 180 -329 Weight 82.5 kg 81.8 kg Physical Exam: General appearance: PRESENT: obese Head exam: PRESENT: atraumatic, normocephalic Eye exam: PRESENT: conjunctiva pink, EOMI, PERRLA. ABSENT: pallor, scleral icterus Ear exam: PRESENT: normal external ear exam Mouth exam: PRESENT: moist Teeth exam: PRESENT: poor dentition Respiratory exam: PRESENT: clear to auscultation jerrica, decreased breath sounds - at lung bases Cardiovascular exam: PRESENT: RRR. ABSENT: diastolic murmur, rubs, systolic murmur GI/Abdominal exam: PRESENT: normal bowel sounds, soft. ABSENT: distended, guarding, mass, organomegaly, rebound, tenderness Extremities exam: PRESENT: pedal edema - improving bilateral pitting edema Musculoskeletal exam: PRESENT: deformity - related to multiple joints involvement with arthritis and left foot diabetic ulcer lesion Neurological exam: PRESENT: alert, awake, oriented to person, oriented to place, oriented to time, oriented to situation, CN II-XII grossly intact. ABSENT: motor sensory deficit Psychiatric exam: PRESENT: appropriate affect, normal mood. ABSENT: homicidal ideation, suicidal ideation Skin exam: PRESENT: dry, warm, other - Left foot heel region with serosanguineous draining open wound. Results Laboratory Results: 03/25/19 03:36 03/23/19 07:25 03/25/19 03:36 WBC 6.2 RBC 3.24 L Hgb 9.6 L Hct 29.2 L MCV 90 MCH 29.7 MCHC 33.0 RDW 16.2 H Plt Count 198 Seg Neutrophils % 59.9 03/23/19 18:55 Lantigua Catheter Urine Culture - Final 1,000 col/ml 03/23/19 03/23/19 03/23/19 07:25 07:25 13:19 Creatine Kinase 39 CK-MB (CK-2) Troponin I 0.014 NT-Pro-B Natriuret Pep 4750 H 03/23/19 03/23/19 03/23/19 13:19 18:45 18:45 Creatine Kinase 32 CK-MB (CK-2) 0.67 0.43 Troponin I 0.013 0.014 NT-Pro-B Natriuret Pep 03/24/19 03/24/19 00:58 00:58 Creatine Kinase 34 CK-MB (CK-2) 0.34 Troponin I 0.013 NT-Pro-B Natriuret Pep Impressions: Chest X-Ray 03/23/19 07:28 IMPRESSION: Patchy airspace disease worrisome for pulmonary edema Assessment & Plan - Diagnosis (1) Acute on chronic combined systolic and diastolic CHF, NYHA class 3 Is this a current diagnosis for this admission?: Yes (2) Hypertension Qualifiers: Hypertension type: essential hypertension Qualified Code(s): I10 - Essential (primary) hypertension Is this a current diagnosis for this admission?: Yes (3) CAD (coronary artery disease) Qualifiers: Coronary Disease-Associated Artery/Lesion type: unspecified vessel or lesion type [place] vs. 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 2 diabetes mellitus Qualifiers: Diabetic foot ulcer location: heel Non-pressure ulcer stage: unspecified non-pressure ulcer stage Qualified Code(s): E11.621 - Type 2 diabetes mellitus with foot ulcer; L97.429 - Non-pressure chronic ulcer of left heel and midfoot with unspecified severity Is this a current diagnosis for this admission?: Yes (7) COPD (chronic obstructive pulmonary disease) Qualifiers: COPD type: unspecified COPD Qualified Code(s): J44.9 - Chronic obstructive pulmonary disease, unspecified Is this a current diagnosis for this admission?: Yes (8) Chronic use of opiate for therapeutic purpose Is this a current diagnosis for this admission?: Yes (9) Obesity (BMI 30-39.9) Is this a current diagnosis for this admission?: Yes - Time Time Spent with patient: 25-34 minutes Level of Care: TELE Medications reviewed and adjusted accordingly: Yes Anticipated discharge: Home with Homehealth Within: Other - Inpatient Certification Based on my medical assessment, after consideration of the patient's comorbidities, presenting symptoms, or acuity I expect that the services needed warrant INPATIENT care.: Yes I certify that my determination is in accordance with my understanding of Medicare's requirements for reasonable and necessary INPATIENT services [42 CFR 412.3e].: Yes Medical Necessity: Significant Comorbidiites Make Outpatient Treatment Too Risky, Need Close Monitoring Due to Risk of Patient Decompensation, Need For Continuous Telemetry Monitoring, Risk of Complication if Not Cared For in Hospital, Risk of Diagnosis Which Will Require Inpatient Eval/Care/Monitoring Post Hospital Care: D/C Fixed Income Analyst Documentation - Plan Summary Plan Summary: Continue IV Lasix therapy.Restrict fluid intake to 1liter/day. Repeat CMP in am.
[2019-03-25] MEDS: SILVER SULFADIAZINE 1% CREAM 25 GM TP SCH (18:14)
[2019-03-25] MEDS: ATORVASTATIN CALCIUM 20 MG TABLET PO SCH (21:25)
[2019-03-26 05:58] LABS: ABSOLUTE EOSINOPHILS # (AUTO) 0.2 10^3/uL (0.0-0.6); ABSOLUTE LYMPHOCYTES (AUTO) 1.7 10^3/uL (0.5-4.7); ABSOLUTE MONOCYTES (AUTO) 0.6 10^3/uL (0.1-1.4); ABSOLUTE NEUT (AUTO) 3.2 10^3/uL (1.7-8.2); BASOPHILS % (AUTO) 0.4 % (0-2); EOSINOPHILS % (AUTO) 3.5 % (0-6); HEMOGLOBIN 10.3 g/dL (12.0-15.5); LYMPHOCYTES % (AUTO) 30.2 % (13-45); MEAN CORPUSCULAR HEMOGLOBIN 29.8 pg (27.0-33.4); MEAN CORPUSCULAR HGB CONC 33.1 g/dL (32.0-36.0); MEAN CORPUSCULAR VOLUME 90 fl (80-97); MONOCYTES % (AUTO) 9.8 % (3-13); PLATELET COUNT 210 10^3/uL (150-450); RED BLOOD COUNT 3.45 10^6/uL (3.72-5.28); RED CELL DISTRIBUTION WIDTH 16.6 % (11.5-14.0); SEGMENTED NEUTROPHILS % (AUTO) 56.1 % (42-78); TOTAL CELLS COUNTED % (AUTO) 100 %; WHITE BLOOD COUNT 5.7 10^3/uL (4.0-10.5)
[2019-03-26] MEDS: GABAPENTIN 300 MG CAPSULE PO SCH ×3 (06:07→21:16)
[2019-03-26] MEDS: PANTOPRAZOLE SODIUM 40 MG TABLET.DR PO SCH (06:07)
[2019-03-26] MEDS: OXYCODONE-ACETAMINOPHEN 5-325 MG TABLET PO PRN (06:13)
[2019-03-26] MEDS: OXYCODONE HCL IR 5 MG TABLET PO PRN (06:13)
[2019-03-26 06:20] LABS: ALBUMIN 3.5 g/dL (3.5-5.0); ALKALINE PHOSPHATASE 235 U/L (38-126); ANION GAP 8 (5-19); ASPARTATE AMINO TRANSFERASE 24 U/L (14-36); BILIRUBIN,DIRECT 0.2 mg/dL (0.0-0.4); BILIRUBIN,TOTAL 0.6 mg/dL (0.2-1.3); BLOOD UREA NITROGEN 30 mg/dL (7-20); CALCIUM 9.3 mg/dL (8.4-10.2); CARBON DIOXIDE 28 mmol/L (22-30); CHLORIDE 104 mmol/L (98-107); GLUCOSE 140 mg/dL (75-110); POTASSIUM 4.4 mmol/L (3.6-5.0); TOTAL PROTEIN 8.2 g/dL (6.3-8.2)
[2019-03-26] MEDS: INSULIN LISPRO 100 UNIT/ML 3 ML VIAL SUBCUT SCH ×4 (07:48→21:16)
[2019-03-26] MEDS: SILVER SULFADIAZINE 1% CREAM 25 GM TP SCH (09:47)
[2019-03-26] MEDS: MULTIVITAMIN TABLET PO SCH (09:48)
[2019-03-26] MEDS: AMLODIPINE BESYLATE 10 MG TABLET PO SCH (09:48)
[2019-03-26] MEDS: CLOPIDOGREL BISULFATE 75 MG TABLET PO SCH (09:48)
[2019-03-26] MEDS: FERROUS SULFATE 325 MG TABLET PO SCH (09:48)
[2019-03-26] MEDS: VALSARTAN 160 MG TABLET PO SCH (09:48)
[2019-03-26] MEDS: APIXABAN 2.5 MG TABLET PO SCH ×2 (09:48→18:03)
[2019-03-26] MEDS: FUROSEMIDE INJ/PF 40 MG/4 ML SDV IV SCH (09:48)
[2019-03-26] MEDS: ASCORBIC ACID 500 MG TABLET PO SCH (09:48)
--- NOTE | 2019-03-26 18:29 | PDOC PROGRESS REPORT ---
Subjective Progress Note for:: 03/26/19 Subjective:: Patient denied any chest pain or difficulty with breathing. She denied any significant coughing or sputum production. No fever or chills. No nausea, vomiting, or abdominal pain. Reason For Visit: DECOMPENSATED ACUTE ON CHRONIC SYSTOLIC CHF Physical Exam Vital Signs: Temp Pulse Resp BP Pulse Ox 98.3 F 78 14 139/64 H 96 03/26/19 16:00 03/26/19 16:00 03/26/19 16:00 03/26/19 16:00 03/26/19 16:00 Intake & Output 03/25/19 03/26/19 03/27/19 06:59 06:59 06:59 Intake Total 1546 1996 Output Total 1875 1100 Balance -329 896 Weight 81.8 kg 81.3 kg Physical Exam: General appearance: PRESENT: obese Head exam: PRESENT: atraumatic, normocephalic Eye exam: PRESENT: conjunctiva pink. ABSENT: pallor, scleral icterus Ear exam: PRESENT: normal external ear exam Mouth exam: PRESENT: moist Teeth exam: PRESENT: poor dentition Respiratory exam: PRESENT: clear to auscultation jerrica, decreased breath sounds - at lung bases Cardiovascular exam: PRESENT: RRR. ABSENT: diastolic murmur, rubs, systolic murmur GI/Abdominal exam: PRESENT: normal bowel sounds, soft. ABSENT: distended, guarding, mass, organomegaly, rebound, tenderness Extremities exam: PRESENT: pedal edema - improving bilateral pitting edema Musculoskeletal exam: PRESENT: deformity - related to multiple joints involvement with arthritis and left foot diabetic ulcer lesion Neurological exam: PRESENT: alert, awake, oriented to person, oriented to place, oriented to time, oriented to situation, CN II-XII grossly intact. ABSENT: motor sensory deficit Psychiatric exam: PRESENT: appropriate affect, normal mood. ABSENT: homicidal ideation, suicidal ideation Skin exam: PRESENT: dry, warm, other - Left foot heel region open wound with satisfactory dressing. Results Laboratory Results: 03/26/19 04:56 03/26/19 04:56 03/26/19 03/26/19 04:56 04:56 WBC 5.7 RBC 3.45 L Hgb 10.3 L Hct 31.0 L MCV 90 MCH 29.8 MCHC 33.1 RDW 16.6 H Plt Count 210 Seg Neutrophils % 56.1 Sodium 140.2 Potassium 4.4 Chloride 104 Carbon Dioxide 28 Anion Gap 8 BUN 30 H Creatinine 0.86 Est GFR ( Amer) > 60 Glucose 140 H Calcium 9.3 Total Bilirubin 0.6 AST 24 Alkaline Phosphatase 235 H Total Protein 8.2 Albumin 3.5 03/23/19 18:55 Sputum Gram Stain - Final 03/23/19 18:55 Sputum Sputum Culture - Final Mrsa (Meth Resis Staph Aureus) Normal Gabriella 03/23/19 03/23/19 03/23/19 07:25 07:25 13:19 Creatine Kinase 39 CK-MB (CK-2) Troponin I 0.014 NT-Pro-B Natriuret Pep 4750 H 03/23/19 03/23/19 03/23/19 13:19 18:45 18:45 Creatine Kinase 32 CK-MB (CK-2) 0.67 0.43 Troponin I 0.013 0.014 NT-Pro-B Natriuret Pep 03/24/19 03/24/19 00:58 00:58 Creatine Kinase 34 CK-MB (CK-2) 0.34 Troponin I 0.013 NT-Pro-B Natriuret Pep Impressions: Chest X-Ray 03/23/19 07:28 IMPRESSION: Patchy airspace disease worrisome for pulmonary edema Assessment & Plan - Diagnosis (1) Acute on chronic combined systolic and diastolic CHF, NYHA class 3 Is this a current diagnosis for this admission?: Yes (2) Hypertension Qualifiers: Hypertension type: essential hypertension Qualified Code(s): I10 - Essential (primary) hypertension Is this a current diagnosis for this admission?: Yes (3) CAD (coronary artery disease) Qualifiers: Coronary Disease-Associated Artery/Lesion type: unspecified vessel or lesion type [place] vs. transplanted heart: [place] heart Associated angina: without angina Qualified Code(s): I25.10 - Atherosclerotic heart disease of [place] coronary artery without angina pectoris Is this a current diagnosis for this admission?: Yes (4) Hyperlipidemia Qualifiers: Hyperlipidemia type: unspecified Qualified Code(s): E78.5 - Hyperlipidemia, unspecified Is this a current diagnosis for this admission?: Yes (5) Diabetes mellitus type 2 in obese Is this a current diagnosis for this admission?: Yes (6) 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 2 diabetes mellitus Qualifiers: Diabetic foot ulcer location: heel Non-pressure ulcer stage: unspecified non-pressure ulcer stage Qualified Code(s): E11.621 - Type 2 diabetes mellitus with foot ulcer; L97.429 - Non-pressure chronic ulcer of left heel and midfoot with unspecified severity Is this a current diagnosis for this admission?: Yes (7) COPD (chronic obstructive pulmonary disease) Qualifiers: COPD type: unspecified COPD Qualified Code(s): J44.9 - Chronic obstructive pulmonary disease, unspecified Is this a current diagnosis for this admission?: Yes (8) Chronic use of opiate for therapeutic purpose Is this a current diagnosis for this admission?: Yes (9) Obesity (BMI 30-39.9) Is this a current diagnosis for this admission?: Yes (10) MRSA (methicillin resistant staph aureus) culture positive Is this a current diagnosis for this admission?: Yes Plan: This is in her sputum culture. There is concern for possible colonization in view of other clinical circumstances. I will obtain nasal MRSA culture for further clarification. - Time Time Spent with patient: 25-34 minutes Level of Care: TELE Medications reviewed and adjusted accordingly: Yes Anticipated discharge: Home with Homehealth Within: Other - Inpatient Certification Based on my medical assessment, after consideration of the patient's comorbidities, presenting symptoms, or acuity I expect that the services needed warrant INPATIENT care.: Yes I certify that my determination is in accordance with my understanding of Medicare's requirements for reasonable and necessary INPATIENT services [42 CFR 412.3e].: Yes Medical Necessity: Significant Comorbidiites Make Outpatient Treatment Too Risky, Need Close Monitoring Due to Risk of Patient Decompensation, Need For Continuous Telemetry Monitoring, Risk of Complication if Not Cared For in Hospital, Risk of Diagnosis Which Will Require Inpatient Eval/Care/Monitoring Post Hospital Care: D/C Solar Site Assessment Specialist 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 Follow up on culture findings. Meantime continue isolation protocol.
[2019-03-26] MEDS: ATORVASTATIN CALCIUM 20 MG TABLET PO SCH (21:16)
[2019-03-27] MEDS: PANTOPRAZOLE SODIUM 40 MG TABLET.DR PO SCH (05:14)
[2019-03-27] MEDS: GABAPENTIN 300 MG CAPSULE PO SCH ×3 (05:14→22:27)
[2019-03-27] MEDS: OXYCODONE-ACETAMINOPHEN 5-325 MG TABLET PO PRN ×2 (05:14→18:21)
[2019-03-27] MEDS: OXYCODONE HCL IR 5 MG TABLET PO PRN ×2 (05:15→18:20)
[2019-03-27] MEDS: INSULIN LISPRO 100 UNIT/ML 3 ML VIAL SUBCUT SCH ×4 (07:47→22:27)
[2019-03-27] MEDS ORDERED: (PENDING PHARMACY ID) (Insulin Degludec [Tresiba Flextouch U-100] 40 UNIT) SUBCUT SCH (10:00)
[2019-03-27] MEDS: VALSARTAN 160 MG TABLET PO SCH (10:21)
[2019-03-27] MEDS: MULTIVITAMIN TABLET PO SCH (10:21)
[2019-03-27] MEDS: APIXABAN 2.5 MG TABLET PO SCH ×2 (10:22→18:14)
[2019-03-27] MEDS: CLOPIDOGREL BISULFATE 75 MG TABLET PO SCH (10:22)
[2019-03-27] MEDS: FERROUS SULFATE 325 MG TABLET PO SCH (10:22)
[2019-03-27] MEDS: FUROSEMIDE 40 MG TABLET PO SCH ×2 (10:22→18:14)
[2019-03-27] MEDS: SILVER SULFADIAZINE 1% CREAM 25 GM TP SCH (10:22)
[2019-03-27] MEDS: AMLODIPINE BESYLATE 10 MG TABLET PO SCH (10:22)
[2019-03-27] MEDS: ASCORBIC ACID 500 MG TABLET PO SCH (10:22)
--- NOTE | 2019-03-27 18:44 | PDOC PROGRESS REPORT ---
Subjective Progress Note for:: 03/27/19 Subjective:: Patient denied any chest pain or difficulty with breathing. No fever or chills. No nausea, vomiting, or abdominal pain. Nasal MRSA culture no growth to date. Reason For Visit: DECOMPENSATED ACUTE ON CHRONIC SYSTOLIC CHF Physical Exam Vital Signs: Temp Pulse Resp BP Pulse Ox 97.6 F 71 14 135/59 H 94 03/27/19 08:00 03/27/19 08:00 03/27/19 08:00 03/27/19 08:00 03/27/19 08:00 Intake & Output 03/26/19 03/27/19 03/28/19 06:59 06:59 06:59 Intake Total 1995 2847 Output Total 1100 2570 Balance 896 277 Weight 81.3 kg 80.7 kg Physical Exam: General appearance: PRESENT: obese Head exam: PRESENT: atraumatic, normocephalic Eye exam: PRESENT: conjunctiva pink. ABSENT: pallor, scleral icterus Ear exam: PRESENT: normal external ear exam Mouth exam: PRESENT: moist Teeth exam: PRESENT: poor dentition Respiratory exam: PRESENT: clear to auscultation jerrica, decreased breath sounds - at lung bases Cardiovascular exam: PRESENT: RRR. ABSENT: diastolic murmur, rubs, systolic murmur GI/Abdominal exam: PRESENT: normal bowel sounds, soft. ABSENT: distended, guarding, mass, organomegaly, rebound, tenderness Extremities exam: PRESENT: pedal edema - improving bilateral pitting edema Musculoskeletal exam: PRESENT: deformity - related to multiple joints involvement with arthritis and left foot diabetic ulcer lesion Neurological exam: PRESENT: alert, awake, oriented to person, oriented to place, oriented to time, oriented to situation, CN II-XII grossly intact. ABSENT: motor sensory deficit Psychiatric exam: PRESENT: appropriate affect, normal mood. ABSENT: homicidal ideation, suicidal ideation Skin exam: PRESENT: dry, warm, other - Left foot heel region open wound with satisfactory dressing. Results Laboratory Results: 03/26/19 04:56 03/26/19 04:56 03/23/19 18:55 Sputum Gram Stain - Final 03/23/19 18:55 Sputum Sputum Culture - Final Mrsa (Meth Resis Staph Aureus) Normal Gabriella 03/23/19 03/23/19 03/23/19 07:25 07:25 13:19 Creatine Kinase 39 CK-MB (CK-2) Troponin I 0.014 NT-Pro-B Natriuret Pep 4750 H 03/23/19 03/23/19 03/23/19 13:19 18:45 18:45 Creatine Kinase 32 CK-MB (CK-2) 0.67 0.43 Troponin I 0.013 0.014 NT-Pro-B Natriuret Pep 03/24/19 03/24/19 00:58 00:58 Creatine Kinase 34 CK-MB (CK-2) 0.34 Troponin I 0.013 NT-Pro-B Natriuret Pep Impressions: Chest X-Ray 03/23/19 07:28 IMPRESSION: Patchy airspace disease worrisome for pulmonary edema Assessment & Plan - Diagnosis (1) Acute on chronic combined systolic and diastolic CHF, NYHA class 3 Is this a current diagnosis for this admission?: Yes (2) Hypertension Qualifiers: Hypertension type: essential hypertension Qualified Code(s): I10 - Essential (primary) hypertension Is this a current diagnosis for this admission?: Yes (3) CAD (coronary artery disease) Qualifiers: Coronary Disease-Associated Artery/Lesion type: unspecified vessel or lesion type [place] vs. transplanted heart: [place] heart Associated angina: without angina Qualified Code(s): I25.10 - Atherosclerotic heart disease of [place] coronary artery without angina pectoris Is this a current diagnosis for this admission?: Yes (4) Hyperlipidemia Qualifiers: Hyperlipidemia type: unspecified Qualified Code(s): E78.5 - Hyperlipidemia, unspecified Is this a current diagnosis for this admission?: Yes (5) Diabetes mellitus type 2 in obese Is this a current diagnosis for this admission?: Yes (6) 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 2 diabetes mellitus Qualifiers: Diabetic foot ulcer location: heel Non-pressure ulcer stage: unspecified non-pressure ulcer stage Qualified Code(s): E11.621 - Type 2 diabetes mellitus with foot ulcer; L97.429 - Non-pressure chronic ulcer of left heel and midfoot with unspecified severity Is this a current diagnosis for this admission?: Yes (7) COPD (chronic obstructive pulmonary disease) Qualifiers: COPD type: unspecified COPD Qualified Code(s): J44.9 - Chronic obstructive pulmonary disease, unspecified Is this a current diagnosis for this admission?: Yes (8) Chronic use of opiate for therapeutic purpose Is this a current diagnosis for this admission?: Yes (9) Obesity (BMI 30-39.9) Is this a current diagnosis for this admission?: Yes (10) MRSA (methicillin resistant staph aureus) culture positive Is this a current diagnosis for this admission?: Yes - Time Time Spent with patient: 25-34 minutes Level of Care: IMCU Medications reviewed and adjusted accordingly: Yes Anticipated discharge: Home with Homehealth Within: Other - Inpatient Certification Based on my medical assessment, after consideration of the patient's comorbidities, presenting symptoms, or acuity I expect that the services needed warrant INPATIENT care.: Yes I certify that my determination is in accordance with my understanding of Medicare's requirements for reasonable and necessary INPATIENT services [42 CFR 412.3e].: Yes Medical Necessity: Significant Comorbidiites Make Outpatient Treatment Too Risky, Need Close Monitoring Due to Risk of Patient Decompensation, Need For Continuous Telemetry Monitoring, Risk of Complication if Not Cared For in Hospital, Risk of Diagnosis Which Will Require Inpatient Eval/Care/Monitoring Post Hospital Care: D/C Pot Lining Supervisor 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 Emphasized compliance with fluid restriction upon discharge.
[2019-03-27] MEDS: ATORVASTATIN CALCIUM 20 MG TABLET PO SCH (22:27)
[2019-03-28] MEDS: PANTOPRAZOLE SODIUM 40 MG TABLET.DR PO SCH (06:02)
[2019-03-28] MEDS: GABAPENTIN 300 MG CAPSULE PO SCH ×3 (06:02→23:07)
[2019-03-28] MEDS: INSULIN LISPRO 100 UNIT/ML 3 ML VIAL SUBCUT SCH ×4 (08:46→22:56)
[2019-03-28] MEDS: VALSARTAN 160 MG TABLET PO SCH (10:47)
[2019-03-28] MEDS: SILVER SULFADIAZINE 1% CREAM 25 GM TP SCH (10:47)
[2019-03-28] MEDS: CLOPIDOGREL BISULFATE 75 MG TABLET PO SCH (10:47)
[2019-03-28] MEDS: APIXABAN 2.5 MG TABLET PO SCH ×2 (10:47→17:32)
[2019-03-28] MEDS: ASCORBIC ACID 500 MG TABLET PO SCH (10:47)
[2019-03-28] MEDS: FUROSEMIDE 40 MG TABLET PO SCH ×2 (10:47→17:32)
[2019-03-28] MEDS: AMLODIPINE BESYLATE 10 MG TABLET PO SCH (10:47)
[2019-03-28] MEDS: MULTIVITAMIN TABLET PO SCH (10:47)
[2019-03-28] MEDS: FERROUS SULFATE 325 MG TABLET PO SCH (10:47)
[2019-03-28] MEDS: OXYCODONE HCL IR 5 MG TABLET PO PRN (10:53)
[2019-03-28] MEDS: OXYCODONE-ACETAMINOPHEN 5-325 MG TABLET PO PRN (10:54)
--- NOTE | 2019-03-28 18:34 | PDOC PROGRESS REPORT ---
Subjective Progress Note for:: 03/28/19 Subjective:: Patient denied any chest pain or difficulty with breathing. No fever or chills. No nausea, vomiting, or abdominal pain. Her nasal MRSA culture remain no growth to date. Reason For Visit: DECOMPENSATED ACUTE ON CHRONIC SYSTOLIC CHF Physical Exam Vital Signs: Temp Pulse Resp BP Pulse Ox 98.2 F 72 12 134/62 H 96 03/28/19 16:00 03/28/19 16:00 03/28/19 16:00 03/28/19 16:00 03/28/19 16:00 Intake & Output 03/27/19 03/28/19 03/29/19 06:59 06:59 06:59 Intake Total 2847 980 240 Output Total 2570 1800 600 Balance 277 -820 -360 Weight 80.7 kg 81.4 kg 81.4 kg Physical Exam: General appearance: PRESENT: obese Head exam: PRESENT: atraumatic, normocephalic Eye exam: PRESENT: conjunctiva pink. ABSENT: pallor, scleral icterus Ear exam: PRESENT: normal external ear exam Mouth exam: PRESENT: moist Teeth exam: PRESENT: poor dentition Respiratory exam: PRESENT: clear to auscultation jerrica, decreased breath sounds - at lung bases Cardiovascular exam: PRESENT: RRR. ABSENT: diastolic murmur, rubs, systolic murmur GI/Abdominal exam: PRESENT: normal bowel sounds, soft. ABSENT: distended, guarding, mass, organomegaly, rebound, tenderness Extremities exam: PRESENT: pedal edema - improving bilateral pitting edema Musculoskeletal exam: PRESENT: deformity - related to multiple joints involvement with arthritis and left foot diabetic ulcer lesion Neurological exam: PRESENT: alert, awake, oriented to person, oriented to place, oriented to time, oriented to situation, CN II-XII grossly intact. ABSENT: motor sensory deficit Psychiatric exam: PRESENT: appropriate affect, normal mood. ABSENT: homicidal ideation, suicidal ideation Skin exam: PRESENT: dry, warm, other - Left foot heel region open wound with satisfactory dressing. Results Laboratory Results: 03/26/19 04:56 03/26/19 04:56 03/23/19 03/23/19 03/23/19 07:25 07:25 13:19 Creatine Kinase 39 CK-MB (CK-2) Troponin I 0.014 NT-Pro-B Natriuret Pep 4750 H 03/23/19 03/23/19 03/23/19 13:19 18:45 18:45 Creatine Kinase 32 CK-MB (CK-2) 0.67 0.43 Troponin I 0.013 0.014 NT-Pro-B Natriuret Pep 03/24/19 03/24/19 00:58 00:58 Creatine Kinase 34 CK-MB (CK-2) 0.34 Troponin I 0.013 NT-Pro-B Natriuret Pep Impressions: Chest X-Ray 03/23/19 07:28 IMPRESSION: Patchy airspace disease worrisome for pulmonary edema Assessment & Plan - Diagnosis (1) Acute on chronic combined systolic and diastolic CHF, NYHA class 3 Is this a current diagnosis for this admission?: Yes (2) Hypertension Qualifiers: Hypertension type: essential hypertension Qualified Code(s): I10 - Essential (primary) hypertension Is this a current diagnosis for this admission?: Yes (3) CAD (coronary artery disease) Qualifiers: Coronary Disease-Associated Artery/Lesion type: unspecified vessel or lesion type [place] vs. transplanted heart: [place] heart Associated angina: without angina Qualified Code(s): I25.10 - Atherosclerotic heart disease of [place] coronary artery without angina pectoris Is this a current diagnosis for this admission?: Yes (4) Hyperlipidemia Qualifiers: Hyperlipidemia type: unspecified Qualified Code(s): E78.5 - Hyperlipidemia, unspecified Is this a current diagnosis for this admission?: Yes (5) Diabetes mellitus type 2 in obese Is this a current diagnosis for this admission?: Yes (6) 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 2 diabetes mellitus Qualifiers: Diabetic foot ulcer location: heel Non-pressure ulcer stage: unspecified non-pressure ulcer stage Qualified Code(s): E11.621 - Type 2 diabetes mellitus with foot ulcer; L97.429 - Non-pressure chronic ulcer of left heel and midfoot with unspecified severity Is this a current diagnosis for this admission?: Yes (7) COPD (chronic obstructive pulmonary disease) Qualifiers: COPD type: unspecified COPD Qualified Code(s): J44.9 - Chronic obstructive pulmonary disease, unspecified Is this a current diagnosis for this admission?: Yes (8) Chronic use of opiate for therapeutic purpose Is this a current diagnosis for this admission?: Yes (9) Obesity (BMI 30-39.9) Is this a current diagnosis for this admission?: Yes (10) MRSA (methicillin resistant staph aureus) culture positive Is this a current diagnosis for this admission?: Yes - Time Time Spent with patient: 25-34 minutes Level of Care: TELE Medications reviewed and adjusted accordingly: Yes Anticipated discharge: Home with Homehealth Within: Other - Inpatient Certification Based on my medical assessment, after consideration of the patient's comorbidities, presenting symptoms, or acuity I expect that the services needed warrant INPATIENT care.: Yes I certify that my determination is in accordance with my understanding of Medicare's requirements for reasonable and necessary INPATIENT services [42 CFR 412.3e].: Yes Medical Necessity: Significant Comorbidiites Make Outpatient Treatment Too Risky, Need Close Monitoring Due to Risk of Patient Decompensation, Need For Continuous Telemetry Monitoring, Risk of Complication if Not Cared For in Hospital, Risk of Diagnosis Which Will Require Inpatient Eval/Care/Monitoring Post Hospital Care: D/C Sterilization Specialist 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 Follow up on nasal MRSA culture findings.
[2019-03-28] MEDS: ATORVASTATIN CALCIUM 20 MG TABLET PO SCH (23:07)
[2019-03-29] MEDS: PANTOPRAZOLE SODIUM 40 MG TABLET.DR PO SCH (06:07)
[2019-03-29] MEDS: GABAPENTIN 300 MG CAPSULE PO SCH ×3 (06:07→22:35)
[2019-03-29] MEDS: INSULIN LISPRO 100 UNIT/ML 3 ML VIAL SUBCUT SCH ×4 (08:43→22:35)
[2019-03-29] MEDS: ASCORBIC ACID 500 MG TABLET PO SCH (10:17)
[2019-03-29] MEDS: FERROUS SULFATE 325 MG TABLET PO SCH (10:18)
[2019-03-29] MEDS: AMLODIPINE BESYLATE 10 MG TABLET PO SCH (10:18)
[2019-03-29] MEDS: MULTIVITAMIN TABLET PO SCH (10:18)
[2019-03-29] MEDS: APIXABAN 2.5 MG TABLET PO SCH ×2 (10:18→17:18)
[2019-03-29] MEDS: VALSARTAN 160 MG TABLET PO SCH (10:19)
[2019-03-29] MEDS: CLOPIDOGREL BISULFATE 75 MG TABLET PO SCH (10:19)
[2019-03-29] MEDS: FUROSEMIDE 40 MG TABLET PO SCH ×2 (10:19→17:18)
--- NOTE | 2019-03-29 13:23 | PDOC PROGRESS REPORT ---
Subjective Progress Note for:: 03/29/19 Subjective:: Patient denied any chest pain or difficulty with breathing. No fever or chills. No nausea, vomiting, or abdominal pain. Her nasal MRSA culture revealed colonization. Reason For Visit: DECOMPENSATED ACUTE ON CHRONIC SYSTOLIC CHF Physical Exam Vital Signs: Temp Pulse Resp BP Pulse Ox 98.1 F 73 16 114/58 L 97 03/29/19 07:49 03/29/19 10:00 03/29/19 10:00 03/29/19 10:00 03/29/19 10:00 Intake & Output 03/28/19 03/29/19 03/30/19 06:59 06:59 06:59 Intake Total 980 1040 Output Total 1800 1500 Balance -820 -460 Weight 81.4 kg 80.4 kg Physical Exam: General appearance: PRESENT: obese Head exam: PRESENT: atraumatic, normocephalic Eye exam: PRESENT: conjunctiva pink. ABSENT: pallor, scleral icterus Ear exam: PRESENT: normal external ear exam Mouth exam: PRESENT: moist Teeth exam: PRESENT: poor dentition Respiratory exam: PRESENT: clear to auscultation jerrica, decreased breath sounds - at lung bases Cardiovascular exam: PRESENT: RRR. ABSENT: diastolic murmur, rubs, systolic murmur GI/Abdominal exam: PRESENT: normal bowel sounds, soft. ABSENT: distended, guarding, mass, organomegaly, rebound, tenderness Extremities exam: PRESENT: pedal edema - improving bilateral pitting edema Musculoskeletal exam: PRESENT: deformity - related to multiple joints involvement with arthritis and left foot diabetic ulcer lesion Neurological exam: PRESENT: alert, awake, oriented to person, oriented to place, oriented to time, oriented to situation, CN II-XII grossly intact. ABSENT: motor sensory deficit Psychiatric exam: PRESENT: appropriate affect, normal mood. ABSENT: homicidal ideation, suicidal ideation Skin exam: PRESENT: dry, warm, other - Left foot heel region open wound with satisfactory dressing. Results Laboratory Results: 03/26/19 04:56 03/26/19 04:56 03/26/19 18:55 Nasophary (Mrsa Only) MRSA Culture - Final MRSA RECOVERED 03/23/19 03/23/19 03/23/19 07:25 07:25 13:19 Creatine Kinase 39 CK-MB (CK-2) Troponin I 0.014 NT-Pro-B Natriuret Pep 4750 H 03/23/19 03/23/19 03/23/19 13:19 18:45 18:45 Creatine Kinase 32 CK-MB (CK-2) 0.67 0.43 Troponin I 0.013 0.014 NT-Pro-B Natriuret Pep 03/24/19 03/24/19 00:58 00:58 Creatine Kinase 34 CK-MB (CK-2) 0.34 Troponin I 0.013 NT-Pro-B Natriuret Pep Impressions: Chest X-Ray 03/23/19 07:28 IMPRESSION: Patchy airspace disease worrisome for pulmonary edema Assessment & Plan - Diagnosis (1) Acute on chronic combined systolic and diastolic CHF, NYHA class 3 Is this a current diagnosis for this admission?: Yes (2) Hypertension Qualifiers: Hypertension type: essential hypertension Qualified Code(s): I10 - Essential (primary) hypertension Is this a current diagnosis for this admission?: Yes (3) CAD (coronary artery disease) Qualifiers: Coronary Disease-Associated Artery/Lesion type: unspecified vessel or lesion type [place] vs. transplanted heart: [place] heart Associated angina: without angina Qualified Code(s): I25.10 - Atherosclerotic heart disease of [place] coronary artery without angina pectoris Is this a current diagnosis for this admission?: Yes (4) Hyperlipidemia Qualifiers: Hyperlipidemia type: unspecified Qualified Code(s): E78.5 - Hyperlipidemia, unspecified Is this a current diagnosis for this admission?: Yes (5) Diabetes mellitus type 2 in obese Is this a current diagnosis for this admission?: Yes (6) 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 2 diabetes mellitus Qualifiers: Diabetic foot ulcer location: heel Non-pressure ulcer stage: unspecified non-pressure ulcer stage Qualified Code(s): E11.621 - Type 2 diabetes mellitus with foot ulcer; L97.429 - Non-pressure chronic ulcer of left heel and midfoot with unspecified severity Is this a current diagnosis for this admission?: Yes (7) COPD (chronic obstructive pulmonary disease) Qualifiers: COPD type: unspecified COPD Qualified Code(s): J44.9 - Chronic obstructive pulmonary disease, unspecified Is this a current diagnosis for this admission?: Yes (8) Chronic use of opiate for therapeutic purpose Is this a current diagnosis for this admission?: Yes (9) Obesity (BMI 30-39.9) Is this a current diagnosis for this admission?: Yes (10) MRSA (methicillin resistant staph aureus) culture positive Is this a current diagnosis for this admission?: Yes (11) MRSA nasal colonization Is this a current diagnosis for this admission?: Yes Plan: Start on decolonization protocol. - Time Time Spent with patient: 35 or more minutes Level of Care: TELE Medications reviewed and adjusted accordingly: Yes Anticipated discharge: Home with Homehealth Within: Other - Inpatient Certification Based on my medical assessment, after consideration of the patient's comorbidities, presenting symptoms, or acuity I expect that the services needed warrant INPATIENT care.: Yes I certify that my determination is in accordance with my understanding of Medicare's requirements for reasonable and necessary INPATIENT services [42 CFR 412.3e].: Yes Medical Necessity: Significant Comorbidiites Make Outpatient Treatment Too Risky, Need Close Monitoring Due to Risk of Patient Decompensation, Need For Continuous Telemetry Monitoring, Risk of Complication if Not Cared For in Hospital, Risk of Diagnosis Which Will Require Inpatient Eval/Care/Monitoring Post Hospital Care: D/C Bill Board Poster Documentation - Plan Summary Plan Summary: Start on MRSA decolonization protocol. Maintain on fluid restriction to 1000 mL / day. Continue all other current medication management.
[2019-03-29] MEDS: MUPIROCIN 2% OINTMENT 22 GM TP SCH ×2 (15:35→17:24)
[2019-03-29] MEDS: SULFAMETHOXAZOLE/TRIMETHOPRIM 800-160 MG TABLET PO SCH (15:35)
[2019-03-29] MEDS: SILVER SULFADIAZINE 1% CREAM 25 GM TP SCH (18:19)
[2019-03-29] MEDS: OXYCODONE HCL IR 5 MG TABLET PO PRN (19:59)
[2019-03-29] MEDS: OXYCODONE-ACETAMINOPHEN 5-325 MG TABLET PO PRN (19:59)
[2019-03-29] MEDS: ATORVASTATIN CALCIUM 20 MG TABLET PO SCH (22:35)
[2019-03-30] MEDS: PANTOPRAZOLE SODIUM 40 MG TABLET.DR PO SCH (06:25)
[2019-03-30] MEDS: GABAPENTIN 300 MG CAPSULE PO SCH ×2 (06:25→13:27)
[2019-03-30] MEDS: INSULIN LISPRO 100 UNIT/ML 3 ML VIAL SUBCUT SCH ×2 (07:57→11:32)
[2019-03-30 08:38] VITALS: BP 128/56
[2019-03-30] MEDS: MUPIROCIN 2% OINTMENT 22 GM TP SCH (10:58)
[2019-03-30] MEDS: CLOPIDOGREL BISULFATE 75 MG TABLET PO SCH (11:00)
[2019-03-30] MEDS: SULFAMETHOXAZOLE/TRIMETHOPRIM 800-160 MG TABLET PO SCH (11:00)
[2019-03-30] MEDS: SILVER SULFADIAZINE 1% CREAM 25 GM TP SCH (11:00)
[2019-03-30] MEDS: AMLODIPINE BESYLATE 10 MG TABLET PO SCH (11:00)
[2019-03-30] MEDS: APIXABAN 2.5 MG TABLET PO SCH (11:00)
[2019-03-30] MEDS: VALSARTAN 160 MG TABLET PO SCH (11:00)
[2019-03-30] MEDS: ASCORBIC ACID 500 MG TABLET PO SCH (11:00)
[2019-03-30] MEDS: FUROSEMIDE 40 MG TABLET PO SCH (11:00)
[2019-03-30] MEDS: FERROUS SULFATE 325 MG TABLET PO SCH (11:00)
[2019-03-30] MEDS: MULTIVITAMIN TABLET PO SCH (11:00)
--- NOTE | 2019-03-30 13:24 | PDOC DISCHARGE SUMMARY ---
Impression - Admit/DC Date/PCP Admission Date/Primary Care Provider: 03/23/19 17:52 STEPHAN TAFOYA Discharge Date: 03/30/19 - Discharge Diagnosis (1) Acute on chronic combined systolic and diastolic CHF, NYHA class 3 Is this a current diagnosis for this admission?: Yes (2) Hypertension Is this a current diagnosis for this admission?: Yes (3) CAD (coronary artery disease) Is this a current diagnosis for this admission?: Yes (4) Hyperlipidemia Is this a current diagnosis for this admission?: Yes (5) Diabetes mellitus type 2 in obese Is this a current diagnosis for this admission?: Yes (6) 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 2 diabetes mellitus Is this a current diagnosis for this admission?: Yes (7) COPD (chronic obstructive pulmonary disease) Is this a current diagnosis for this admission?: Yes (8) Chronic use of opiate for therapeutic purpose Is this a current diagnosis for this admission?: Yes (9) Obesity (BMI 30-39.9) Is this a current diagnosis for this admission?: Yes (10) MRSA (methicillin resistant staph aureus) culture positive Is this a current diagnosis for this admission?: Yes (11) MRSA nasal colonization Is this a current diagnosis for this admission?: Yes - Assessment Summary: Patient was admitted for acute on chronic combined systolic and diastolic CHF due to fluid overload from excessive water intake as per her admission. She was managed with IV Lasix and subsequent significant diuresis. She has been instructed on the importance of fluid restriction to 1 liter per day. Her hospitalization was further protracted due to positive culture of MRSA from her sputum. Her nasal MRSA culture confirmed colonization. she is in the process of decolonization with nasal Mupirocin application bid x 5 days; Chlorhexidine 4% body wash daily x 3 days and thereafter twice weekly x 2 weeks, and Bactrim DS 1 tablet po bid x 10 days therapy. She will continue her left foot diabetic ulcer wound management with [facility] as per her preadmission arrangement. She will be discharged home today and follow up in the office as instructed upon discharge. - Additional Information Resuscitation Status: Full Code Discharge Diet: Cardiac, Diabetic Discharge Activity: Activity As Tolerated, Balance Activity w/Rest, Weigh Daily Referrals: STEPHAN TAFOYA MD [Primary Care Provider] - 04/04/19 10:00 am (Obtain CBC with diff, BMP at follow up office visit.) Prescriptions: Mupirocin [Bactroban 2% Ointment 22 gm] 1 applic TP BID 5 Days #1 tube Chlorhexidine Gluconate [Scrub Chlorhexidine Gluconate] 118 ml TP ASDIR PRN #3 liquid PRN Reason: Sulfamethoxazole/Trimethoprim [Septra-Ds 800-160 mg Tablet] 1 tab PO BID #20 tablet Home Medications: Amlodipine Besylate [Norvasc 10 mg Tablet] 10 mg PO DAILY 02/14/19 Apixaban [Eliquis 2.5 mg Tablet] 2.5 mg PO BID 02/14/19 Ascorbic Acid [Vitamin C 500 mg Tablet] 500 mg PO DAILY 02/14/19 Atorvastatin Calcium [Lipitor 20 mg Tablet] 20 mg PO QHS 02/14/19 Docusate Sodium [Colace 100 mg Capsule] 100 mg PO BIDP PRN 02/14/19 Ferrous Sulfate [Feosol 325 mg Tablet] 325 mg PO DAILY 02/14/19 Furosemide [Lasix 20 mg Tablet] 40 mg PO BID 02/14/19 Nitroglycerin [Nitrostat 0.4 mg (1/150 Gr) Tabs 25/Bottle] 0.4 mg SL Q5MP PRN 02/14/19 Oxycodone HCl/Acetaminophen [Percocet 7.5-325 mg Tablet] 1 tab PO Q6HP PRN 02/14/19 Valsartan [Diovan 160 mg Tablet] 160 mg PO DAILY 02/14/19 Clopidogrel Bisulfate [Plavix 75 mg Tablet] 75 mg PO DAILY 03/23/19 Gabapentin [Neurontin 300 mg Capsule] 300 mg PO Q8 03/23/19 Insulin Aspart [Novolog Flexpen] 0 unit SQ .SLIDING SCALE 03/23/19 Insulin Degludec [Tresiba Flextouch U-100] 40 unit SQ DAILY 03/23/19 Multivit,Tx with Iron,Minerals [Thera-M] 1 each PO DAILY 03/23/19 Chlorhexidine Gluconate [Scrub Chlorhexidine Gluconate] 118 ml TP ASDIR PRN #3 liquid 03/30/19 Mupirocin [Bactroban 2% Ointment 22 gm] 1 applic TP BID 5 Days #1 tube 03/30/19 Sulfamethoxazole/Trimethoprim [Septra-Ds 800-160 mg Tablet] 1 tab PO BID #20 tablet 03/30/19 History of Present Illiness History of Present Illness: JAVIER BURGER is a 63 year old female, She has history of chronic combined systolic and diastolic heart failure, multiple comorbid conditions, she was just recently discharged from this hospital within the last 30 days. She came to the emergency room for evaluation of shortness of breath extremity swelling in the ER she was evaluated, it was felt that she has decompensated chronic systolic heart failure. Hospital admission was advised for this patient, when I saw her on the floor and I asked why she came to the ER, she stated that is the same problem she is always had, she said the p.o. furosemide typically is effective initially after awhile it becomes refractory and not effective. Hospital Course Hospital Course: Patient was admitted for acute on chronic combined systolic and diastolic CHF due to fluid overload from excessive water intake as per her admission. She was managed with IV Lasix and subsequent significant diuresis. She has been instructed on the importance of fluid restriction to 1 liter per day. Her hospitalization was further protracted due to positive culture of MRSA from her sputum. Her nasal MRSA culture confirmed colonization. she is in the process of decolonization with nasal Mupirocin application bid x 5 days; Chlorhexidine 4% body wash daily x 3 days and thereafter twice weekly x 2 weeks, and Bactrim DS 1 tablet po bid x 10 days therapy. She will continue her left foot diabetic ulcer wound management with [facility] as per her preadmission arrangement. She will be discharged home today and follow up in the office as instructed upon discharge. Physical Exam Vital Signs: Temp Pulse Resp BP Pulse Ox 98.0 F 72 15 128/56 H 96 03/30/19 08:00 03/30/19 08:00 03/30/19 08:00 03/30/19 08:00 03/30/19 08:00 Intake & Output 03/29/19 03/30/19 03/31/19 06:59 06:59 06:59 Intake Total 1040 730 Output Total 1500 Balance -460 730 Weight 80.4 kg General appearance: PRESENT: obese Head exam: PRESENT: atraumatic, normocephalic Eye exam: PRESENT: conjunctiva pink. ABSENT: pallor, scleral icterus Ear exam: PRESENT: normal external ear exam Mouth exam: PRESENT: moist Teeth exam: PRESENT: poor dentition Respiratory exam: PRESENT: clear to auscultation jerrica, decreased breath sounds - at lung bases Cardiovascular exam: PRESENT: RRR. ABSENT: diastolic murmur, rubs, systolic murmur GI/Abdominal exam: PRESENT: normal bowel sounds, soft. ABSENT: distended, guarding, mass, organomegaly, rebound, tenderness Extremities exam: PRESENT: resolved bilateral pedal edema Musculoskeletal exam: PRESENT: deformity - related to multiple joints involvement with arthritis and left foot diabetic ulcer lesion Neurological exam: PRESENT: alert, awake, oriented to person, oriented to place, oriented to time, oriented to situation, CN II-XII grossly intact. ABSENT: motor sensory deficit Psychiatric exam: PRESENT: appropriate affect, normal mood. ABSENT: homicidal ideation, suicidal ideation Skin exam: PRESENT: dry, warm, other - Left foot heel region open wound with satisfactory dressing. Results Laboratory Results: WBC 5.7 10^3/uL (4.0-10.5) 03/26/19 04:56 RBC 3.45 10^6/uL (3.72-5.28) L 03/26/19 04:56 Hgb 10.3 g/dL (12.0-15.5) L 03/26/19 04:56 Hct 31.0 % (36.0-47.0) L 03/26/19 04:56 MCV 90 fl (80-97) 03/26/19 04:56 MCH 29.8 pg (27.0-33.4) 03/26/19 04:56 MCHC 33.1 g/dL (32.0-36.0) 03/26/19 04:56 RDW 16.6 % (11.5-14.0) H 03/26/19 04:56 Plt Count 210 10^3/uL (150-450) 03/26/19 04:56 Lymph % (Auto) 30.2 % (13-45) 03/26/19 04:56 [place] % (Auto) 9.8 % (3-13) 03/26/19 04:56 Eos % (Auto) 3.5 % (0-6) 03/26/19 04:56 Baso % (Auto) 0.4 % (0-2) 03/26/19 04:56 Absolute Neuts (auto) 3.2 10^3/uL (1.7-8.2) 03/26/19 04:56 Absolute Lymphs (auto) 1.7 10^3/uL (0.5-4.7) 03/26/19 04:56 Absolute Monos (auto) 0.6 10^3/uL (0.1-1.4) 03/26/19 04:56 Absolute Eos (auto) 0.2 10^3/uL (0.0-0.6) 03/26/19 04:56 Absolute Basos (auto) 0.0 10^3/uL (0.0-0.2) 03/26/19 04:56 Seg Neutrophils % 56.1 % (42-78) 03/26/19 04:56 PT 15.0 SEC (11.4-15.4) 03/23/19 13:19 INR 1.17 03/23/19 13:19 APTT 32.0 SEC (23.5-35.8) 03/23/19 13:19 Carbonic Acid 1.20 mmol/L (1.05-1.35) 03/23/19 13:30 HCO3/H2CO3 Ratio 22:1 03/23/19 13:30 ABG pH 7.44 (7.35-7.45) 03/23/19 13:30 ABG pCO2 39.8 mmHg (35-45) 03/23/19 13:30 ABG pO2 67.0 mmHg (80-100) L 03/23/19 13:30 ABG HCO3 26.5 mmol/L (20-24) H 03/23/19 13:30 ABG Total CO2 27.7 mmol/L (21-25) H 03/23/19 13:30 ABG O2 Saturation 94.0 % (94-98) 03/23/19 13:30 ABG Base Excess 2.2 mmol/L 03/23/19 13:30 FiO2 ROOM AIR 03/23/19 13:30 Sodium 140.2 mmol/L (137-145) 03/26/19 04:56 Potassium 4.4 mmol/L (3.6-5.0) 03/26/19 04:56 Chloride 104 mmol/L (98-107) 03/26/19 04:56 Carbon Dioxide 28 mmol/L (22-30) 03/26/19 04:56 Anion Gap 8 (5-19) 03/26/19 04:56 BUN 30 mg/dL (7-20) H 03/26/19 04:56 Creatinine 0.86 mg/dL (0.52-1.25) 03/26/19 04:56 Est GFR ( Amer) > 60 (>60) 03/26/19 04:56 Est GFR (MDRD) Non-Af > 60 (>60) 03/26/19 04:56 Glucose 140 mg/dL (75-110) H 03/26/19 04:56 POC Glucose 174 mg/dL (70-110) H 03/30/19 11:05 Hemoglobin A1c % 6.8 % (4.7-6.0) H 03/24/19 04:47 Calcium 9.3 mg/dL (8.4-10.2) 03/26/19 04:56 Magnesium 1.9 mg/dL (1.6-2.3) 03/23/19 13:19 Total Bilirubin 0.6 mg/dL (0.2-1.3) 03/26/19 04:56 Direct Bilirubin 0.2 mg/dL (0.0-0.4) 03/26/19 04:56 Neonat Total Bilirubin Not Reportable 03/26/19 04:56 Neonat Direct Bilirubin Not Reportable 03/26/19 04:56 Neonat Indirect Bili Not Reportable 03/26/19 04:56 AST 24 U/L (14-36) 03/26/19 04:56 ALT 15 U/L (<35) 03/26/19 04:56 Alkaline Phosphatase 235 U/L (38-126) H 03/26/19 04:56 Creatine Kinase 34 U/L (30-135) 03/24/19 00:58 CK-MB (CK-2) 0.34 ng/mL (<4.55) 03/24/19 00:58 Troponin I 0.013 ng/mL 03/24/19 00:58 NT-Pro-B Natriuret Pep 4750 pg/mL (<125) H 03/23/19 07:25 Total Protein 8.2 g/dL (6.3-8.2) 03/26/19 04:56 Albumin 3.5 g/dL (3.5-5.0) 03/26/19 04:56 Triglycerides 73 mg/dL (<150) 03/24/19 04:47 Cholesterol 158.57 mg/dL (0-200) 03/24/19 04:47 LDL Cholesterol Direct 92 mg/dL (<100) 03/24/19 04:47 VLDL Cholesterol 15.0 mg/dL (10-31) 03/24/19 04:47 HDL Cholesterol 34 mg/dL (>40) L 03/24/19 04:47 TSH 0.72 uIU/mL (0.47-4.68) 03/23/19 13:19 Free T4 1.26 ng/dL (0.78-2.19) 03/23/19 13:19 Urine Color STRAW 03/23/19 18:55 Urine Appearance CLEAR 03/23/19 18:55 Urine pH 5.0 (5.0-9.0) 03/23/19 18:55 Ur Specific [place] 1.006 03/23/19 18:55 Urine Protein NEGATIVE mg/dL (NEGATIVE) 03/23/19 18:55 Urine Glucose (UA) NEGATIVE mg/dL (NEGATIVE) 03/23/19 18:55 Urine Ketones NEGATIVE mg/dL (NEGATIVE) 03/23/19 18:55 Urine Blood NEGATIVE (NEGATIVE) 03/23/19 18:55 Urine Nitrite NEGATIVE (NEGATIVE) 03/23/19 18:55 Urine Bilirubin NEGATIVE (NEGATIVE) 03/23/19 18:55 Urine Urobilinogen NEGATIVE mg/dL (<2.0) 03/23/19 18:55 Ur Leukocyte Esterase NEGATIVE (NEGATIVE) 03/23/19 18:55 Urine WBC (Auto) 1 /HPF 03/23/19 18:55 Urine RBC (Auto) 1 /HPF 03/23/19 18:55 U Hyaline Cast (Auto) 3 /LPF 03/23/19 18:55 Urine Bacteria (Auto) 1+ /HPF 03/23/19 07:40 Squamous Epi Cells Auto <1 /HPF 03/23/19 18:55 Urine Mucus (Auto) RARE /LPF 03/23/19 18:55 Urine Ascorbic Acid NEGATIVE (NEGATIVE) 03/23/19 18:55 03/23/19 03/23/19 03/23/19 07:25 07:25 13:19 CK-MB (CK-2) 0.67 Troponin I 0.014 0.013 NT-Pro-B Natriuret Pep 4750 H 03/23/19 03/24/19 18:45 00:58 CK-MB (CK-2) 0.43 0.34 Troponin I 0.014 0.013 NT-Pro-B Natriuret Pep Impressions: Chest X-Ray 03/23/19 07:28 IMPRESSION: Patchy airspace disease worrisome for pulmonary edema Plan Health Concerns: Dietary and fluid restriction compliance. Plan of Treatment: Emphasized medication, dietary, and fluid restriction compliance. Goals: Reduce readmission risk through enrollment in CHF program with home health agency. Time Spent: Greater than 30 Minutes - care cordination and counseling on care compliance. Stroke Is this a Stroke Patient?: No Acute Heart Failure - Is this a Heart Failure Patient?: Yes Documentation of LVEF assessment?: No, Document reason - complete echocardiogram on 11/14/2018 LVEF was 60%; 10/09/2017 revealed mild to moderate diastolic dysfuction; and 04/20/2017 was LVEF 35% LVEF < 40%?: No- if no continue to question #3 3. Anticoagulant therapy for permanect/persistent/paraoxysmal Afib or Aflutter: Yes Follow-up Appointment scheduled within 7 days?: Yes
[2019-03-30] MEDS: OXYCODONE-ACETAMINOPHEN 5-325 MG TABLET PO PRN (13:27)
[2019-03-30] MEDS: OXYCODONE HCL IR 5 MG TABLET PO PRN (13:28)
== END 2019-03-30 14:26 | disposition home health service (06) | DRG 292 ==
LOC: ER 06:56 → EH 09:15 → UNDOADMIN 09:15 → INTOOBSV 09:17 → EH 09:17 → UNDOADMIN 09:17 → 4N 12:59 → OBSVTOIN 17:52
PROVIDERS: ADMIT Internal Medicine Geriatric Medicine; ATTEND Internal Medicine Geriatric Medicine
DX: I11.0 Hypertensive heart disease with heart failure (principal); L97.429 Non-pressure chronic ulcer of left heel and midfoot with unspecified severity; E11.621 Type 2 diabetes mellitus with foot ulcer; E11.51 Type 2 diabetes mellitus with diabetic peripheral angiopathy without gangrene; Z95.1 Presence of aortocoronary bypass graft; Z79.01 Long term (current) use of anticoagulants; I25.10 Atherosclerotic heart disease of native coronary artery without angina pectoris; E78.5 Hyperlipidemia, unspecified; J44.9 Chronic obstructive pulmonary disease, unspecified; E66.9 Obesity, unspecified; I50.43 Acute on chronic combined systolic (congestive) and diastolic (congestive) heart failure; Z79.891 Long term (current) use of opiate analgesic; Z68.39 Body mass index [BMI] 39.0-39.9, adult; Z22.322 Carrier or suspected carrier of Methicillin resistant Staphylococcus aureus; Z79.02 Long term (current) use of antithrombotics/antiplatelets; Z79.4 Long term (current) use of insulin; I25.2 Old myocardial infarction; Z87.891 Personal history of nicotine dependence; Z88.8 Allergy status to other drugs, medicaments and biological substances; Z91.19 Patient's noncompliance with other medical treatment and regimen; Z83.42 Family history of familial hypercholesterolemia; Z82.49 Family history of ischemic heart disease and other diseases of the circulatory system
CPT/HCPCS: 36415; 36600; 51702; 71045; 80048; 80053; 80061; 80076; 81001; 82550; 82553; 82803; 82962; 83036; 83735; 83880; 84439; 84443; 84484; 85025; 85610; 85730; 87070; 87077; 87086; 87186; 87205; 93005; 93010; 96374; 99285; J1815; J1940; J3490

== ENCOUNTER 2019-04-04 22:27 | Emergency (ER) | payer MEDICARE, MEDICAID ==
[2019-04-04] MEDS ORDERED: FUROSEMIDE INJ/PF 20 MG/2 ML SDV IV ONE (23:03)
[2019-04-04 23:23] LABS: ABSOLUTE EOSINOPHILS # (AUTO) 0.1 10^3/uL (0.0-0.6); ABSOLUTE LYMPHOCYTES (AUTO) 1.4 10^3/uL (0.5-4.7); ABSOLUTE MONOCYTES (AUTO) 0.9 10^3/uL (0.1-1.4); ABSOLUTE NEUT (AUTO) 4.6 10^3/uL (1.7-8.2); BASOPHILS % (AUTO) 0.3 % (0-2); EOSINOPHILS % (AUTO) 1.2 % (0-6); HEMATOCRIT 29.2 % (36.0-47.0); HEMOGLOBIN 9.6 g/dL (12.0-15.5); LYMPHOCYTES % (AUTO) 19.6 % (13-45); MEAN CORPUSCULAR HEMOGLOBIN 30.3 pg (27.0-33.4); MEAN CORPUSCULAR VOLUME 92 fl (80-97); MONOCYTES % (AUTO) 13.3 % (3-13); PLATELET COUNT 239 10^3/uL (150-450); RED BLOOD COUNT 3.19 10^6/uL (3.72-5.28); RED CELL DISTRIBUTION WIDTH 17.3 % (11.5-14.0); SEGMENTED NEUTROPHILS % (AUTO) 65.6 % (42-78); TOTAL CELLS COUNTED % (AUTO) 100 %
[2019-04-04 23:35] LABS: ALBUMIN 4.1 g/dL (3.5-5.0); ALKALINE PHOSPHATASE 267 U/L (38-126); ANION GAP 12 (5-19); ASPARTATE AMINO TRANSFERASE 45 U/L (14-36); BILIRUBIN,DIRECT 0.4 mg/dL (0.0-0.4); BILIRUBIN,TOTAL 0.6 mg/dL (0.2-1.3); BLOOD UREA NITROGEN 86 mg/dL (7-20); CALCIUM 9.5 mg/dL (8.4-10.2); CARBON DIOXIDE 22 mmol/L (22-30); CHLORIDE 105 mmol/L (98-107); GLUCOSE 161 mg/dL (75-110); TOTAL PROTEIN 9.2 g/dL (6.3-8.2)
--- NOTE | 2019-04-04 23:38 | RADIOLOGY REPORT (SQ) ---
EXAM DESCRIPTION: XR CHEST 2 VIEWS COMPLETED DATE/TME: 04/04/2019 23:00 CLINICAL HISTORY: Short of breath COMPARISON: 03/23/2019 FINDINGS: Frontal and lateral views of the chest. Cardiomediastinal silhouette: Prior median sternotomy. Cardiomegaly. Pulmonary vascular congestion. Lungs: No pneumothorax or large effusion. Bones: Degenerative change of the spine and shoulders. Upper abdomen: No abnormality identified. IMPRESSION: 1. Cardiomegaly with pulmonary vascular congestion.
[2019-04-04 23:41] LABS: POTASSIUM 6.8 mmol/L (3.6-5.0)
[2019-04-04 23:47] LABS: TROPONIN I 0.023 ng/mL
[2019-04-05] MEDS ORDERED: NORMAL SALINE 1000 ML 1,000 ML IV ONE (00:40)
[2019-04-05] MEDS ORDERED: NORMAL SALINE 500 ML IV ONE ×2 (00:40→00:45)
--- NOTE | 2019-04-05 01:32 | ER Document Report ---
ED General - General Chief Complaint: Breathing Difficulty Stated Complaint: DIFFICULTY BREATHING Time Seen by Provider: 04/04/19 22:33 Primary Care Provider: STEPHAN TAFOYA MD [Primary Care Provider] - Follow up as needed TRAVEL OUTSIDE OF THE [place] IN LAST 30 DAYS: No - Related Data Allergies/Adverse Reactions: duloxetine Allergy (Verified 04/04/19 22:37) pregabalin [From Lyrica] Allergy (Verified 04/04/19 22:37) Swelling of hands and face Home Medications: amlodipine, atorvastatin, plavix, colace, eliquis, pepcid, iron, lasix, gabapentin, vasartan Past Medical History - Social History Smoking Status: Former Smoker Frequency of alcohol use: None Drug Abuse: None Family History: CAD, Hyperlipidemia, Hypertension Patient has suicidal ideation: No Patient has homicidal ideation: No - Past Medical History Cardiac Medical History: Reports: Hx Congestive Heart Failure, Hx Coronary Artery Disease, Hx Heart Attack, Hx Hypercholesterolemia, Hx Hypertension, Hx Peripheral Vascular Disease Denies: Hx Atrial Fibrillation Pulmonary Medical History: Reports: Hx Bronchitis Denies: Hx Asthma, Hx COPD, Hx Pneumonia, Hx Tuberculosis Neurological Medical History: Reports: Hx Cerebrovascular Accident - 2007 Denies: Hx Seizures, Hx Parkinson's Disease Endocrine Medical History: Reports: Hx Diabetes Mellitus Type 1, Hx Diabetes Me llitus Type 2 Renal/ Medical History: Denies: Hx End Stage Renal Disease, Hx Peritoneal Dialysis Malignancy Medical History: GI Medical History: Reports: Hx Diverticulitis - diverticulosis. Denies: Hx Gastroesophageal Reflux Disease, Hx Hiatal Hernia Musculoskeletal Medical History: Denies Hx Arthritis, Denies Hx Systemic Lupus Erythematosus Skin Medical History: Denies Hx MRSA Psychiatric Medical History: Denies: Hx Bipolar Disorder, Hx Depression Traumatic Medical History: Infectious Medical History: Past Surgical History: Reports: Hx Cardiac Surgery - quad bypass, Hx Coronary Artery Bypass Graft - July 31 2011, Hx Tonsillectomy, Hx Vascular Surgery. Denies: Hx Appendectomy, Hx Cardiac Catheterization, Hx Section, Hx Cholecystectomy, Hx Hysterectomy, Hx Mastectomy, Hx Tubal Ligation - Immunizations Immunizations up to date: No Hx Diphtheria, Pertussis, Tetanus Vaccination: Yes Hx Pneumococcal Vaccination: 02/04/11 Physical Exam - Vital signs Vitals: Temp Pulse Resp BP Pulse Ox 97.9 F 72 14 159/63 H 100 04/04/19 22:30 04/04/19 22:30 04/04/19 22:30 04/04/19 22:30 04/04/19 22:30 - Notes Notes: Patient presents emerge department complaining of shortness of breath that started earlier today. Hemograms and got progressively worse. Not had any fevers or cough with this. No vomiting or abdominal pain. Reports she had some substernal chest pain that is pleuritic in nature and intermittent to be worse with breathing but no relationship to moving. Says she had same type of chest pain in the past when she had her CHF. Patient was recently discharged from the hospital after prolonged course with CHF fluid restriction but she says she has not been following not like she supposed to Patient medical history is significant for for hypertension diabetes coronary artery disease CHF as well as CABG. History she smokes but quit no alcohol Review of systems pertinent positives and negatives in HPI otherwise all the systems were reviewed and acutely negative PHYSICIAN EXAM -vital signs are noted triage note and note from triage reviewed GENERAL: Well-appearing, well-nourished and in ___no acute distress___ HEAD: Atraumatic, normocephalic. EYES: Pupils equal round and reactive to light, extraocular movements intact, sclera anicteric, conjunctiva are normal. ENT: nares patent, oropharynx clear without exudates. Moist mucous membranes. NECK: supple without lymphadenopathy LUNGS: Breath sounds clear to auscultation bilaterally and equal. No wheezes rales or rhonchi. There are a few crackles in the bases but no respiratory distress HEART: Regular rate and rhythm without murmurs he does have JVD at 30 degrees ABDOMEN: Soft, nontender, normoactive bowel sounds. EXTREMITIES: No deformity, old surgical scar on the medial aspect of the left leg. She is got +4 edema to the knee which is chronic. She has no palpable cords dressing placed over the foot from a previous chronic ulcer right lower extremity she has +3 edema to the knee patient says she has asymmetric edema in her legs NEUROLOGICAL: No focal neurological deficits. Moves all extremities spontaneously and on command. PSYCH: Normal mood, normal affect. SKIN: Warm, Dry, normal turgor, no rashes or lesions noted. BACK-nontender in the midline Differential diagnosis includes CHF ivana pleurisy pneumonia acute coronary syndrome Course - Re-evaluation Re-evalutation: 04/05/19 01:31 ED patient is remained stable because of her history of CHF findings on exam and JVD and report of not following fluid restriction given a dose of Lasix here when the labs were obtained her EKG there was no peak T waves to suggest hyperkalemia and QRS was not widened she was given a bolus of normal saline and we started her on gentle hydration and have repeated the conference of metabolic we will go ahead and hydrate the patient up gently however she did have an ejection fraction of 60% during her last hospitalization her repeat BUN/creatinine still showed significant evidence of renal failure and hyperkalemia. She is not acidotic. She was given Kayexalate insulin and started on D10 drip Medical decision making patient presents with shortness of breath and evidence of acute renal failure and hyperkalemia and will need admission to the hospital discussed case with the family doctor who felt patient be transferred to higher level care and has nephrology with a history of CHF he was concerned that we would not be able to aggressively hydrate the patient. Consulted the transfer center at [facility] and arrange for transfer 04/05/19 02:40 - Vital Signs Vital signs: Temp Pulse Resp BP Pulse Ox 97.9 F 72 14 159/63 H 100 04/04/19 22:30 04/04/19 22:30 04/04/19 22:30 04/04/19 22:30 04/04/19 22:30 - Laboratory Result Diagrams: 04/04/19 23:10 04/05/19 00:56 Laboratory results interpreted by me: 04/04/19 04/04/19 04/04/19 23:10 23:10 23:10 RBC 3.19 L Hgb 9.6 L Hct 29.2 L RDW 17.3 H [place] % (Auto) 13.3 H Potassium 6.8 H* BUN 86 H Creatinine 3.04 H Est GFR ( Amer) 19 L Est GFR (MDRD) Non-Af 15 L Glucose 161 H AST 45 H Alkaline Phosphatase 267 H NT-Pro-B Natriuret Pep 4980 H Total Protein 9.2 H 04/05/19 00:56 RBC Hgb Hct RDW [place] % (Auto) Potassium 6.6 H* BUN 82 H Creatinine 2.85 H Est GFR ( Amer) 20 L Est GFR (MDRD) Non-Af 17 L Glucose 153 H AST Alkaline Phosphatase NT-Pro-B Natriuret Pep Total Protein 04/05/19 01:30 Labs were noted. Hemoglobin is about baseline. Troponin was noted. She normally runs around 0.1 he did have a slight bump in November when she was here when she went to 0.02 but the troponin earlier today and later today was 0.01 BNP is about baseline BUN and creatinine were 30 and 0.86 just a couple weeks ago when she was discharged and was noted - Diagnostic Test Radiology reviewed: Reports reviewed - LVH with strain and some nonspecific ST wave changes which are unchanged from previous Critical Care Note - Critical Care Note Total time excluding time spent on procedures (mins): 35 Discharge - Discharge Clinical Impression: Shortness of breath, Hyperkalemia, Acute renal failure Disposition: [facility] Unit Admitted: ICU Referrals: STEPHAN TAFOYA MD [Primary Care Provider] - Follow up as needed
[2019-04-05 01:33] LABS: ANION GAP 9 (5-19); BLOOD UREA NITROGEN 82 mg/dL (7-20); CALCIUM 9.2 mg/dL (8.4-10.2); CARBON DIOXIDE 23 mmol/L (22-30); CHLORIDE 107 mmol/L (98-107); GLUCOSE 153 mg/dL (75-110)
[2019-04-05 01:38] LABS: POTASSIUM 6.6 mmol/L (3.6-5.0)
[2019-04-05] MEDS ORDERED: SODIUM POLYSTYRENE SULFONATE 15 GM/60 ML PO ONE (01:51)
[2019-04-05] MEDS ORDERED: DEXTROSE 10%-WATER 1,000 ML IV ONE (01:51)
[2019-04-05] MEDS ORDERED: INSULIN REG, HUMAN 100 UNIT/ML 3 ML VIAL (PYX) IV ONE (01:51)
[2019-04-05] MEDS ORDERED: DEXTROSE 10%-1/4 NORMAL SALINE 250 ML IV ONE (02:33)
[2019-04-05 04:15] VITALS: BP 132/54
--- NOTE | 2019-04-05 12:37 | EKG REPORT ---
SEVERITY:- ABNORMAL ECG - SINUS RHYTHM PROBABLE LEFT ATRIAL ABNORMALITY LEFT AXIS DEVIATION LEFT VENTRICULAR HYPERTROPHY : Confirmed by: Irma Hitchcock 05-Apr-2019 12:37:08
== END 2019-04-05 04:55 | disposition short-term general hospital (02) ==
LOC: ER 22:27
DX: I11.0 Hypertensive heart disease with heart failure (principal); I50.9 Heart failure, unspecified; E87.5 Hyperkalemia; N17.9 Acute kidney failure, unspecified; E86.0 Dehydration; R06.02 Shortness of breath; R07.81 Pleurodynia; R60.0 Localized edema; E11.51 Type 2 diabetes mellitus with diabetic peripheral angiopathy without gangrene; E78.00 Pure hypercholesterolemia, unspecified; I25.10 Atherosclerotic heart disease of native coronary artery without angina pectoris; I25.2 Old myocardial infarction; Z79.01 Long term (current) use of anticoagulants; Z79.02 Long term (current) use of antithrombotics/antiplatelets; Z79.899 Other long term (current) drug therapy; Z87.891 Personal history of nicotine dependence; Z95.1 Presence of aortocoronary bypass graft; Z88.6 Allergy status to analgesic agent; Z88.8 Allergy status to other drugs, medicaments and biological substances
CPT/HCPCS: 93005; 99291; 96361; 51702; 96374; 36415; 85025; 80048; 80053; 84484; 83880; 71046; 93010; J3490; J1940; A9270 ×2; J7030; J7040; J1815

== ENCOUNTER 2019-04-30 05:52 | Inpatient (IN) | payer MEDICARE, MEDICAID ==
--- NOTE | 2019-04-30 07:13 | ER Document Report ---
ED Cardiac - General Chief Complaint: Chest Pressure Stated Complaint: SHORTNESS OF BREATH Time Seen by Provider: 04/30/19 06:45 Primary Care Provider: STEPHAN TAFOYA MD [Primary Care Provider] - Follow up as needed Mode of Arrival: Medic Information source: Patient TRAVEL OUTSIDE OF THE [place] IN LAST 30 DAYS: No - HPI Notes: Patient complains of chest pain and shortness of breath that started last night. She has a history of CHF. The chest pain is dull and is substernal with radiation into the left chest. No radiation to the arm. She tells me she was here for similar complaints approximately 2 weeks ago. She is brought here by EMS who gave her aspirin and nitroglycerin in route with no change in symptoms. Patient appears comfortable. She tells me she has got a history of renal insufficiency. No abdominal pain. No back pain. No urinary complaints. She lives with her son. 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 She is on Lasix and complains of increased swelling of her legs. No other complaints. No rashes. - Related Data Allergies/Adverse Reactions: duloxetine Allergy (Verified 04/04/19 22:37) pregabalin [From Lyrica] Allergy (Verified 04/04/19 22:37) Swelling of hands and face Past Medical History - Social History Smoking Status: Former Smoker Family History: CAD, Hyperlipidemia, Hypertension Patient has suicidal ideation: No Patient has homicidal ideation: No - Past Medical History Cardiac Medical History: Reports: Hx Congestive Heart Failure, Hx Coronary Artery Disease, Hx Heart Attack, Hx Hypercholesterolemia, Hx Hypertension, Hx Peripheral Vascular Disease Denies: Hx Atrial Fibrillation Pulmonary Medical History: Reports: Hx Bronchitis Denies: Hx Asthma, Hx COPD, Hx Pneumonia, Hx Tuberculosis Neurological Medical History: Reports: Hx Cerebrovascular Accident - 2007 Denies: Hx Seizures, Hx Parkinson's Disease Endocrine Medical History: Reports: Hx Diabetes Mellitus Type 1, Hx Diabetes Mellitus Type 2 Renal/ Medical History: Denies: Hx End Stage Renal Disease, Hx Peritoneal Dialysis Malignancy Medical History: GI Medical History: Reports: Hx Diverticulitis - diverticulosis. Denies: Hx Gastroesophageal Reflux Disease, Hx Hiatal Hernia Musculoskeletal Medical History: Denies Hx Arthritis, Denies Hx Systemic Lupus Erythematosus Skin Medical History: Denies Hx MRSA Psychiatric Medical History: Denies: Hx Bipolar Disorder, Hx Depression Traumatic Medical History: Infectious Medical History: Past Surgical History: Reports: Hx Cardiac Surgery - quad bypass, Hx Coronary Artery Bypass Graft - July 31 2011, Hx Tonsillectomy, Hx Vascular Surgery. Denies: Hx Appendectomy, Hx Cardiac Catheterization, Hx Section, Hx Cholecystectomy, Hx Hysterectomy, Hx Mastectomy, Hx Tubal Ligation - Immunizations Immunizations up to date: No Hx Diphtheria, Pertussis, Tetanus Vaccination: Yes Hx Pneumococcal Vaccination: 02/04/11 Review of Systems - Review of Systems Constitutional: denies: Chills, Fever Cardiovascular: Chest pain. denies: Palpitations -: Yes All other systems reviewed and negative Physical Exam - Vital signs Vitals: Resp Pulse Ox 24 H 95 04/30/19 06:29 04/30/19 06:29 - General General appearance: Appears well, Alert - HEENT Head: Normocephalic, Atraumatic Eyes: Normal Pupils: PERRL - Respiratory Respiratory status: No respiratory distress Chest status: Nontender Breath sounds: Normal Chest palpation: Normal - Cardiovascular Rhythm: Regular Heart sounds: Normal auscultation Murmur: No - Abdominal Inspection: Normal Distension: No distension Bowel sounds: Normal Tenderness: Nontender Organomegaly: No organomegaly - Back Back: Normal, Nontender - Extremities General upper extremity: Normal inspection, Nontender, Normal color, Normal ROM, Normal temperature General lower extremity: No: Mark's sign Notes: She has swelling of both lower extremities 2+ bilaterally chronic pedal. - Neurological Neuro grossly intact: Yes Cognition: Normal Orientation: AAOx4 Amber Coma Scale Eye Opening: Spontaneous Butler Coma Scale Verbal: Oriented Amber Coma Scale Motor: Obeys Commands Amber Coma Scale Total: 15 Speech: Normal Motor strength normal: LUE, RUE, LLE, RLE Sensory: Normal - Psychological Associated symptoms: Normal affect, Normal mood - Skin Skin Temperature: Warm Skin Moisture: Dry Notes: L HEEL ABSCESS DRAINING PUS 1X1 CM Course - Re-evaluation Re-evalutation: 04/30/19 07:25 EKG per ar shows normal sinus rhythm at a rate of 93 with left atrial abnormality and artifact and LVH. Compared to previous EKG from 04/04/2019 04/30/19 09:59 Rocephin ordered for left heel abscess. 04/30/19 10:29 Labs reviewed. Patient has anemia. Patient has UTI. X-rays reviewed. Cardiomegaly present on chest x-ray per radiologist. Left foot XRAY no evidence of osteomyelitis per radiologist. 04/30/19 11:17 PT WAS INITIALLY RESISTANT, BUT EVENTUALLY AGREED TO CENTRAL ACCESS. CONSULTED DR. CAMP [SURGERY] FOR IV CENTRAL ACCESS VERBALLY AND VIA COMPUTER. CALL PLACED TO HER PMD FOR ADMISSION. PT STABLE. 04/30/19 11:40 DISCUSSED CASE IN DETAIL WITH PMD DR. TAFOYA, WHO AGREES WITH ADMISSION TO [facility]. - Vital Signs Vital signs: Temp Pulse Resp BP Pulse Ox 98.4 F 32 H 163/75 H 91 L 04/30/19 06:30 04/30/19 11:00 04/30/19 10:01 04/30/19 10:01 - Laboratory Result Diagrams: 04/30/19 09:13 04/30/19 09:13 Laboratory results interpreted by me: 04/30/19 04/30/19 04/30/19 07:22 09:13 09:13 RBC 3.14 L Hgb 9.5 L Hct 28.7 L RDW 17.0 H Seg Neutrophils % 78.2 H Chloride 109 H BUN 25 H Glucose 205 H Alkaline Phosphatase 295 H Total Protein 8.7 H Urine Protein 100 H Urine Urobilinogen 4.0 H Ur Leukocyte Esterase LARGE H Urine Ascorbic Acid 40 H Discharge - Discharge Clinical Impression: Cellulitis and abscess of foot Chest pain Qualifiers: Chest pain type: unspecified Qualified Code(s): R07.9 - Chest pain, unspecified Anemia Qualifiers: Anemia type: unspecified type Qualified Code(s): D64.9 - Anemia, unspecified UTI (urinary tract infection) Qualifiers: Urinary tract infection type: site unspecified Hematuria presence: without hematuria Qualified Code(s): N39.0 - Urinary tract infection, site not specified Dyspnea Qualifiers: Dyspnea type: unspecified Qualified Code(s): R06.00 - Dyspnea, unspecified Condition: Serious Disposition: ADMITTED INPATIENT Admitting Provider: Jenn Unit Admitted: [facility] Referrals: STEPHAN TAFOYA MD [Primary Care Provider] - Follow up as needed
[2019-04-30 08:16] LABS: APPEARANCE,URINE SLIGHTLY-CLOUDY; BILIRUBIN,URINE NEGATIVE (NEGATIVE); COLOR,URINE YELLOW; GLUCOSE, URINE NEGATIVE (NEGATIVE); KETONES,URINE NEGATIVE (NEGATIVE); LEUKOCYTE ESTERASE,URINE LARGE (NEGATIVE); NITRITE,URINE NEGATIVE (NEGATIVE); PROTEIN,URINE 100 mg/dL (NEGATIVE); URINE SPECIFIC GRAVITY 1.012
--- NOTE | 2019-04-30 08:44 | RADIOLOGY REPORT (SQ) ---
EXAM DESCRIPTION: CHEST SINGLE VIEW COMPLETED DATE/TIME: 04/30/2019 8:06 am REASON FOR STUDY: chest pain COMPARISON: 03/27/2018 NUMBER OF VIEWS: One view. TECHNIQUE: Single frontal radiographic view of the chest acquired. LIMITATIONS: None. FINDINGS: LUNGS AND PLEURA: No opacities, masses or pneumothorax. No pleural effusion. MEDIASTINUM AND HILAR STRUCTURES: No masses or contour abnormality. HEART AND VASCULATURE: Cardiac enlargement. Vascular congestion. BONES: No acute findings. HARDWARE: CABG. OTHER: No other significant finding. IMPRESSION: CARDIAC ENLARGEMENT. VASCULAR CONGESTION. TECHNICAL DOCUMENTATION: JOB ID: [id number] [employer]- All Rights Reserved Reading location - IP/workstation name: [email or web address]
[2019-04-30 09:24] LABS: ABSOLUTE EOSINOPHILS # (AUTO) 0.1 10^3/uL (0.0-0.6); ABSOLUTE LYMPHOCYTES (AUTO) 1.1 10^3/uL (0.5-4.7); ABSOLUTE MONOCYTES (AUTO) 0.5 10^3/uL (0.1-1.4); BASOPHILS % (AUTO) 0.4 % (0-2); EOSINOPHILS % (AUTO) 0.9 % (0-6); HEMATOCRIT 28.7 % (36.0-47.0); HEMOGLOBIN 9.5 g/dL (12.0-15.5); LYMPHOCYTES % (AUTO) 14.1 % (13-45); MEAN CORPUSCULAR HEMOGLOBIN 30.1 pg (27.0-33.4); MEAN CORPUSCULAR HGB CONC 32.9 g/dL (32.0-36.0); MEAN CORPUSCULAR VOLUME 92 fl (80-97); MONOCYTES % (AUTO) 6.4 % (3-13); PLATELET COUNT 235 10^3/uL (150-450); RED BLOOD COUNT 3.14 10^6/uL (3.72-5.28); SEGMENTED NEUTROPHILS % (AUTO) 78.2 % (42-78); TOTAL CELLS COUNTED % (AUTO) 100 %; WHITE BLOOD COUNT 7.6 10^3/uL (4.0-10.5)
[2019-04-30 09:34] LABS: INTERNATIONAL RATION (INR) 1.19; PROTHROMBIN TIME 15.2 SEC (11.4-15.4)
[2019-04-30 09:42] LABS: ALBUMIN 3.9 g/dL (3.5-5.0); ALKALINE PHOSPHATASE 295 U/L (38-126); ANION GAP 10 (5-19); ASPARTATE AMINO TRANSFERASE 24 U/L (14-36); BILIRUBIN,DIRECT 0.3 mg/dL (0.0-0.4); BILIRUBIN,TOTAL 1.1 mg/dL (0.2-1.3); BLOOD UREA NITROGEN 25 mg/dL (7-20); CALCIUM 9.8 mg/dL (8.4-10.2); CARBON DIOXIDE 24 mmol/L (22-30); CHLORIDE 109 mmol/L (98-107); GLUCOSE 205 mg/dL (75-110); POTASSIUM 4.6 mmol/L (3.6-5.0); TOTAL PROTEIN 8.7 g/dL (6.3-8.2)
[2019-04-30] MEDS ORDERED: CEFTRIAXONE INJ 1000 MG VIAL IM ONE (09:55)
--- NOTE | 2019-04-30 10:27 | RADIOLOGY REPORT (SQ) ---
EXAM DESCRIPTION: FOOT LEFT COMPLETE COMPLETED DATE/TIME: 04/30/2019 9:47 am REASON FOR STUDY: DRAINING ABSCESS COMPARISON: 02/14/2019 NUMBER OF VIEWS: Three views. TECHNIQUE: AP, lateral and oblique radiographic images acquired of the left foot. LIMITATIONS: None. FINDINGS: MINERALIZATION: Osteopenia. BONES: No acute fracture or dislocation. No worrisome bone lesions. JOINTS: No effusions. SOFT TISSUES: Skin ulcer posterior calcaneus. OTHER: No other significant finding. IMPRESSION: No evidence of osteomyelitis. TECHNICAL DOCUMENTATION: JOB ID: [id number]- All Rights Reserved Reading location - IP/workstation name: [email or web address]
[2019-04-30] MEDS ORDERED: LIDOCAINE 1% INJ-PF (10 MG/ML) 30 ML SDV INJ ONE (10:30)
[2019-04-30] MEDS ORDERED: LIDOCAINE 1% INJ-PF (10 MG/ML) 30 ML SDV ONE (14:14)
--- NOTE | 2019-04-30 14:56 | PDOC CONSULTATION ---
Consultation Consult Date: 04/30/19 Provider Consulted: JONO CAMP Consult reason:: Need of central venous line for IV access History of Present Illness Admission Date/PCP: 04/30/19 11:55 STEPHANJEANIE TAFOYA History of Present Illness: JAVIER BURGER is a 63 year old female mated because of shortness of breath in need of IV access for administration of medication and fluids. Past Medical History Cardiac Medical History: Reports: Congestive Heart Failure, Coronary Artery Disease, Myocardial Infarction, Hyperlipidema, Hypertension, Peripheral Vascular Disease Denies: Atrial Fibrillation Pulmonary Medical History: Reports: Bronchitis Denies: Asthma, Chronic Obstructive Pulmonary Disease (COPD), Pneumonia, Tuberculosis Neurological Medical History: Denies: Seizures Endocrine Medical History: Reports: Diabetes Mellitus Type 1, Diabetes Mellitus Type 2 Renal/ Medical History: Denies: End Stage Renal Disease Malignancy Medical History: GI Medical History: Reports: Diverticulitis - diverticulosis Denies: Gastroesophageal Reflux Disease, Hiatal Hernia Musculoskeltal Medical History: Denies: Arthritis Psychiatric Medical History: Denies: Bipolar Disorder, Depression Hematology: Denies: Anemia, Hemophilia, Sickle Cell Disease Infectious Medical History: Past Surgical History Past Surgical History: Reports: Coronary Artery Bypass Graft - July 31 2011, Tonsillectomy, Vascular Surgery Denies: Amputation, Appendectomy, Cardiac Catheterization, Section, Cholecystectomy, Hysterectomy, Mastectomy, Tubal Ligation Social History Smoking Status: Former Smoker Frequency of Alcohol Use: None Hx Recreational Drug Use: No Drugs: None Hx Prescription Drug Abuse: No Family History Family History: CAD, Hyperlipidemia, Hypertension Parental Family History Reviewed: No Children Family History Reviewed: No Sibling(s) Family History Reviewed.: No Medication/Allergy Home Medications: Amlodipine Besylate [Norvasc 10 mg Tablet] 10 mg PO DAILY 02/14/19 Apixaban [Eliquis 2.5 mg Tablet] 2.5 mg PO BID 02/14/19 Ascorbic Acid [Vitamin C 500 mg Tablet] 500 mg PO DAILY 02/14/19 Atorvastatin Calcium [Lipitor 20 mg Tablet] 20 mg PO QHS 02/14/19 Docusate Sodium [Colace 100 mg Capsule] 100 mg PO BIDP PRN 02/14/19 Ferrous Sulfate [Feosol 325 mg Tablet] 325 mg PO DAILY 02/14/19 Furosemide [Lasix 20 mg Tablet] 40 mg PO BID 02/14/19 Nitroglycerin [Nitrostat 0.4 mg (1/150 Gr) Tabs 25/Bottle] 0.4 mg SL Q5MP PRN 02/14/19 Oxycodone HCl/Acetaminophen [Percocet 7.5-325 mg Tablet] 1 tab PO Q6HP PRN 02/14/19 Valsartan [Diovan 160 mg Tablet] 160 mg PO DAILY 02/14/19 Clopidogrel Bisulfate [Plavix 75 mg Tablet] 75 mg PO DAILY 03/23/19 Gabapentin [Neurontin 300 mg Capsule] 300 mg PO Q8 03/23/19 Insulin Aspart [Novolog Flexpen] 0 unit SQ .SLIDING SCALE 03/23/19 Insulin Degludec [Tresiba Flextouch U-100] 40 unit SQ DAILY 03/23/19 Multivit,Tx with Iron,Minerals [Thera-M] 1 each PO DAILY 03/23/19 Mupirocin [Bactroban 2% Ointment 22 gm] 1 applic TP BID 5 Days #1 tube 03/30/19 Allergies/Adverse Reactions: duloxetine Allergy (Verified 04/04/19 22:37) pregabalin [From Lyrica] Allergy (Verified 04/04/19 22:37) Swelling of hands and face Physical Exam Vital Signs: Temp Pulse Resp BP Pulse Ox 98.4 F 17 163/75 H 92 04/30/19 06:30 04/30/19 14:14 04/30/19 10:01 04/30/19 14:14 Intake & Output 04/29/19 04/30/19 05/01/19 06:59 06:59 06:59 Weight 96.933 kg General appearance: PRESENT: no acute distress, thin, well-developed Eye exam: PRESENT: EOMI Mouth exam: PRESENT: neck supple Teeth exam: PRESENT: poor dentation Neck exam: PRESENT: full ROM Respiratory exam: PRESENT: clear to auscultation jerrica Cardiovascular exam: PRESENT: RRR GI/Abdominal exam: PRESENT: normal bowel sounds, soft Rectal exam: PRESENT: deferred Extremities exam: PRESENT: full ROM Musculoskeletal exam: PRESENT: full ROM Neurological exam: PRESENT: alert, awake Psychiatric exam: PRESENT: appropriate affect Skin exam: PRESENT: warm Results Laboratory Results: 04/30/19 09:13 04/30/19 09:13 04/30/19 04/30/19 04/30/19 07:22 07:46 07:46 WBC Cancelled RBC Cancelled Hgb Cancelled Hct Cancelled MCV Cancelled MCH Cancelled MCHC Cancelled RDW Cancelled Plt Count Cancelled Seg Neutrophils % Cancelled Sodium Cancelled Potassium Cancelled Chloride Cancelled Carbon Dioxide Cancelled Anion Gap Cancelled BUN Cancelled Creatinine Cancelled Est GFR ( Amer) Cancelled Est GFR (Non-Af Amer) Cancelled Glucose Cancelled Calcium Cancelled Magnesium Cancelled Total Bilirubin Cancelled AST Cancelled Alkaline Phosphatase Cancelled Total Protein Cancelled Albumin Cancelled Lipase Cancelled Urine Color YELLOW Urine Appearance SLIGHTLY-CLOUDY Urine pH 6.0 Ur Specific Benson 1.012 Urine Protein 100 H Urine Glucose (UA) NEGATIVE Urine Ketones NEGATIVE Urine Blood NEGATIVE Urine Nitrite NEGATIVE Ur Leukocyte Esterase LARGE H Urine WBC (Auto) 19 Urine RBC (Auto) 2 04/30/19 04/30/19 09:13 09:13 WBC 7.6 RBC 3.14 L Hgb 9.5 L Hct 28.7 L MCV 92 MCH 30.1 MCHC 32.9 RDW 17.0 H Plt Count 235 Seg Neutrophils % 78.2 H Sodium 142.5 Potassium 4.6 Chloride 109 H Carbon Dioxide 24 Anion Gap 10 BUN 25 H Creatinine 0.76 Est GFR ( Amer) > 60 Est GFR (Non-Af Amer) Glucose 205 H Calcium 9.8 Magnesium 2.2 Total Bilirubin 1.1 AST 24 Alkaline Phosphatase 295 H Total Protein 8.7 H Albumin 3.9 Lipase 24.1 Urine Color Urine Appearance Urine pH Ur Specific Benson Urine Protein Urine Glucose (UA) Urine Ketones Urine Blood Urine Nitrite Ur Leukocyte Esterase Urine WBC (Auto) Urine RBC (Auto) 04/30/19 04/30/19 07:46 09:13 Troponin I Cancelled < 0.012 Impressions: Chest X-Ray 04/30/19 07:05 IMPRESSION: CARDIAC ENLARGEMENT. VASCULAR CONGESTION. Foot X-Ray 04/30/19 09:29 IMPRESSION: No evidence of osteomyelitis. Assessment & Plan - Diagnosis (1) Need for intravenous access Is this a current diagnosis for this admission?: Yes - Plan Summary Plan Summary: Assessment: Need of IV access for administration of medications or drugs Patient to be admitted for shortness of breath Plan: Urgent insertion of triple-lumen central venous line for administration of medic ation and drugs. Procedure, risks, benefits, complications, explained to the patient, her questions where answered, and she decided to proceed
--- NOTE | 2019-04-30 15:00 | Operative Report ---
Operative Report DATE OF SURGERY: 04/30/19 PREOPERATIVE DIAGNOSIS: Need of IV access for administration of medication and fluids POSTOPERATIVE DIAGNOSIS: Same OPERATION: Placement of right subclavian vein triple-lumen central venous catheter SURGEON: JONO CAMP ANESTHESIA: Local - 30 mL's of 1% lidocaine without epinephrine TISSUE REMOVED OR ALTERED: Applicable COMPLICATIONS: None ESTIMATED BLOOD LOSS: Less than 5 mL INTRAOPERATIVE FINDINGS: As above PROCEDURE: The procedure was done at bedside in the ED department: The patient was placed in a supine position, the patient neck and chest were prepped and draped in the usual fashion. The midportion of the right clavicle and just below it was infiltrated with lidocaine, a 16-gauge needle was then used to cannulate the right subclavian vein without difficulty with good blood return; a guidewire was inserted through the needle into the subclavian vein without difficulty, the needle was removed. The insertion point of the guidewire was enlarged with a #11 blade and a tissue dilator which was then removed. A triple-lumen catheter was inserted without difficulty over the guidewire into the right subclavian vein without difficulty up to 16 cm, the guidewire was removed. Each port was aspirated and flushed with normal saline without difficulty. The catheter was secured to the skin with 3-0 nylon sutures and sterile dressing applied. The patient tolerated the procedure well and portable chest-ray was obtained to confirm good position of the line.
--- NOTE | 2019-04-30 15:50 | RADIOLOGY REPORT (SQ) ---
EXAM DESCRIPTION: CHEST SINGLE VIEW COMPLETED DATE/TIME: 04/30/2019 3:17 pm REASON FOR STUDY: check line placement COMPARISON: Same day chest radiograph EXAM PARAMETERS: NUMBER OF VIEWS: One view. TECHNIQUE: Single frontal radiographic view of the chest acquired. RADIATION DOSE: NA LIMITATIONS: None. FINDINGS: Interval placement of right subclavian vascular catheter, tip projecting over the right at rium. Otherwise stable AP portable examination with mild diffuse interstitial pulmonary opacity, lik elvin edema, and gross cardiomegaly. Status post median sternotomy. IMPRESSION: Interval placement of right subclavian vascular catheter, tip projecting over the right atrium. Otherwise stable AP portable examination with mild diffuse interstitial pulmonary opacity, l ikely edema, and gross cardiomegaly. Status post median sternotomy. TECHNICAL DOCUMENTATION: JOB ID: [id number] [employer]- All Rights Reserved Reading location - IP/workstation name: [email or web address]
[2019-04-30] MEDS ORDERED: DOCUSATE SODIUM 100 MG CAPSULE PO PRN (16:23)
[2019-04-30] MEDS ORDERED: NITROGLYCERIN 0.4 MG/TAB 25 TAB/BOTTLE SL PRN (16:23)
[2019-04-30] MEDS ORDERED: (PENDING PHARMACY ID) (Oxycodone Hcl/Acetaminophen [Percocet 7.5-325 Mg Tablet] 1 TAB) PO PRN (16:23)
[2019-04-30] MEDS ORDERED: (PENDING PHARMACY ID) (Insulin Degludec [Tresiba Flextouch U-100] 40 UNIT) SQ SCH (16:30)
--- NOTE | 2019-04-30 16:54 | PDOC H&P ---
History of Present Illness Admission Date/PCP: 04/30/19 11:55 STEPHAN MICHELET History of Present Illness: JAVIER BURGER is a 63 year old female, she has a history of chronic combined systolic and diastolic heart failure, she is well-known to this facility with multiple hospitalization, she came to the emergency room for evaluation supposedly of chest pain. According to the emergency room physician note the chest pain was substernal with radiation to the extremities. When I saw the patient she complained of burning sensation of the epigastrium she said it feels like heartburn ,the BNP was elevated suggesting CHF. The chest x-ray that was done in the emergency room demonstrated cardiomegaly with vascular congestion. She has chronic venous hypertension of the lower extremity due to CHF the burning sensation of the epigastrium could be from portal vein gastropathy from CHF. Past Medical History Cardiac Medical History: Reports: Congestive Heart Failure, Coronary Artery Disease, Myocardial Infarction, Hyperlipidema, Hypertension, Peripheral Vascular Disease Pulmonary Medical History: Reports: Bronchitis Endocrine Medical History: Reports: Diabetes Mellitus Type 1, Diabetes Mellitus Type 2 Malignancy Medical History: GI Medical History: Reports: Diverticulitis - diverticulosis Musculoskeltal Medical History: Psychiatric Medical History: Infectious Medical History: Past Surgical History Past Surgical History: Reports: Coronary Artery Bypass Graft - July 31 2011, Tonsillectomy, Vascular Surgery Social History Smoking Status: Former Smoker Frequency of Alcohol Use: None Hx Recreational Drug Use: No Drugs: None Hx Prescription Drug Abuse: No - Advance Directive Resuscitation Status: Full Code Family History Family History: CAD, Hyperlipidemia, Hypertension Parental Family History Reviewed: Yes Children Family History Reviewed: Yes Sibling(s) Family History Reviewed.: Yes Medication/Allergy Home Medications: Amlodipine Besylate [Norvasc 10 mg Tablet] 10 mg PO DAILY 02/14/19 Apixaban [Eliquis 2.5 mg Tablet] 2.5 mg PO BID 02/14/19 Ascorbic Acid [Vitamin C 500 mg Tablet] 500 mg PO DAILY 02/14/19 Atorvastatin Calcium [Lipitor 20 mg Tablet] 20 mg PO QHS 02/14/19 Docusate Sodium [Colace 100 mg Capsule] 100 mg PO BIDP PRN 02/14/19 Ferrous Sulfate [Feosol 325 mg Tablet] 325 mg PO DAILY 02/14/19 Furosemide [Lasix 20 mg Tablet] 40 mg PO BID 02/14/19 Nitroglycerin [Nitrostat 0.4 mg (1/150 Gr) Tabs 25/Bottle] 0.4 mg SL Q5MP PRN 02/14/19 Oxycodone HCl/Acetaminophen [Percocet 7.5-325 mg Tablet] 1 tab PO Q6HP PRN 02/14/19 Valsartan [Diovan 160 mg Tablet] 160 mg PO DAILY 02/14/19 Clopidogrel Bisulfate [Plavix 75 mg Tablet] 75 mg PO DAILY 03/23/19 Gabapentin [Neurontin 300 mg Capsule] 300 mg PO Q8 03/23/19 Insulin Aspart [Novolog Flexpen] 0 unit SQ .SLIDING SCALE 03/23/19 Insulin Degludec [Tresiba Flextouch U-100] 40 unit SQ DAILY 03/23/19 Multivit,Tx with Iron,Minerals [Thera-M] 1 each PO DAILY 03/23/19 Mupirocin [Bactroban 2% Ointment 22 gm] 1 applic TP BID 5 Days #1 tube 03/30/19 Allergies/Adverse Reactions: duloxetine Allergy (Verified 04/04/19 22:37) pregabalin [From Lyrica] Allergy (Verified 04/04/19 22:37) Swelling of hands and face Review of Systems Constitutional: ABSENT: chills, fever(s), headache(s), weight gain, weight loss Eyes: ABSENT: visual disturbances Ears: ABSENT: hearing changes Cardiovascular: PRESENT: chest pain. ABSENT: dyspnea on exertion, edema, orthropnea, palpitations Respiratory: ABSENT: cough, hemoptysis Gastrointestinal: PRESENT: abdominal pain. ABSENT: constipation, diarrhea, hematemesis, hematochezia, nausea, vomiting Genitourinary: ABSENT: dysuria, hematuria Musculoskeletal: ABSENT: joint swelling Integumentary: ABSENT: rash, wounds Neurological: ABSENT: abnormal gait, abnormal speech, confusion, dizziness, focal weakness, syncope Psychiatric: ABSENT: anxiety, depression, homidical ideation, suicidal ideation Endocrine: ABSENT: cold intolerance, heat intolerance, menstrual abnormalities, polydipsia, polyuria Hematologic/Lymphatic: ABSENT: easy bleeding, easy bruising, lymphadenopathy Physical Exam Vital Signs: Temp Pulse Resp BP Pulse Ox 98.4 F 85 17 163/75 H 92 04/30/19 06:30 04/30/19 15:07 04/30/19 14:14 04/30/19 10:01 04/30/19 14:14 Intake & Output 04/29/19 04/30/19 05/01/19 06:59 06:59 06:59 Weight 96.933 kg General appearance: PRESENT: no acute distress Head exam: PRESENT: atraumatic, normocephalic Eye exam: PRESENT: conjunctiva pink, EOMI, PERRLA Ear exam: PRESENT: normal external ear exam Neck exam: PRESENT: full ROM Respiratory exam: PRESENT: clear to auscultation jerrica Cardiovascular exam: PRESENT: RRR, +S1, +S2 Pulses: PRESENT: normal dorsalis pedis pul, +2 pedal pulses bilateral Vascular exam: PRESENT: normal capillary refill GI/Abdominal exam: PRESENT: normal bowel sounds, soft Rectal exam: PRESENT: deferred Extremities exam: PRESENT: pedal edema Neurological exam: PRESENT: alert, CN II-XII grossly intact Psychiatric exam: PRESENT: appropriate affect, normal mood Skin exam: PRESENT: dry, intact, warm. ABSENT: cyanosis, rash Results Laboratory Results: 04/30/19 09:13 04/30/19 09:13 04/30/19 04/30/19 04/30/19 07:22 07:46 07:46 WBC Cancelled RBC Cancelled Hgb Cancelled Hct Cancelled MCV Cancelled MCH Cancelled MCHC Cancelled RDW Cancelled Plt Count Cancelled Seg Neutrophils % Cancelled Sodium Cancelled Potassium Cancelled Chloride Cancelled Carbon Dioxide Cancelled Anion Gap Cancelled BUN Cancelled Creatinine Cancelled Est GFR ( Amer) Cancelled Est GFR (Non-Af Amer) Cancelled Glucose Cancelled Calcium Cancelled Magnesium Cancelled Total Bilirubin Cancelled AST Cancelled Alkaline Phosphatase Cancelled Total Protein Cancelled Albumin Cancelled Lipase Cancelled Urine Color YELLOW Urine Appearance SLIGHTLY-CLOUDY Urine pH 6.0 Ur Specific [place] 1.012 Urine Protein 100 H Urine Glucose (UA) NEGATIVE Urine Ketones NEGATIVE Urine Blood NEGATIVE Urine Nitrite NEGATIVE Ur Leukocyte Esterase LARGE H Urine WBC (Auto) 19 Urine RBC (Auto) 2 04/30/19 04/30/19 09:13 09:13 WBC 7.6 RBC 3.14 L Hgb 9.5 L Hct 28.7 L MCV 92 MCH 30.1 MCHC 32.9 RDW 17.0 H Plt Count 235 Seg Neutrophils % 78.2 H Sodium 142.5 Potassium 4.6 Chloride 109 H Carbon Dioxide 24 Anion Gap 10 BUN 25 H Creatinine 0.76 Est GFR ( Amer) > 60 Est GFR (Non-Af Amer) Glucose 205 H Calcium 9.8 Magnesium 2.2 Total Bilirubin 1.1 AST 24 Alkaline Phosphatase 295 H Total Protein 8.7 H Albumin 3.9 Lipase 24.1 Urine Color Urine Appearance Urine pH Ur Specific [place] Urine Protein Urine Glucose (UA) Urine Ketones Urine Blood Urine Nitrite Ur Leukocyte Esterase Urine WBC (Auto) Urine RBC (Auto) 04/30/19 04/30/19 07:46 09:13 Troponin I Cancelled < 0.012 Impressions: Foot X-Ray 04/30/19 09:29 IMPRESSION: No evidence of osteomyelitis. Chest X-Ray 04/30/19 14:46 IMPRESSION: Interval placement of right subclavian vascular catheter, tip projecting over the right atrium. Otherwise stable AP portable examination with mild diffuse interstitial pulmonary opacity, likely edema, and gross cardiomegaly. Status post median sternotomy. Assessment & Plan - Diagnosis (1) Acute on chronic systolic (congestive) heart failure Is this a current diagnosis for this admission?: Yes Plan: There is evidence of acute on chronic systolic heart failure, presently on anti- CHF medication, she is not on Entresto probably due to insurance not paying for the medication, I do not want to initiate Entresto in the hospital only not to be paid for outpatient (2) Upper abdominal pain Is this a current diagnosis for this admission?: Yes Plan: The differential diagnoses include peptic ulcer disease, especially in this pat ient, she is on anticoagulant and also antiplatelet, the pain could also be secondary to portal vein gastropathy secondary to CHF, she may benefit from upper endoscopy at one point during hospital course (3) Anemia Qualifiers: Anemia type: unspecified type Qualified Code(s): D64.9 - Anemia, unspecified Is this a current diagnosis for this admission?: Yes Plan: Patient on anticoagulant, iron studies will be ordered
[2019-04-30 17:07] LABS: ARTERIAL BLOOD BASE EXCESS 1.5 mmol/L; ARTERIAL BLOOD FIO2 ROOM AIR; ARTERIAL BLOOD H2CO3 1.13 mmol/L (1.05-1.35); ARTERIAL BLOOD HCO3 25.5 mmol/L (20-24); ARTERIAL BLOOD O2 SATURATION 87.7 % (94-98); ARTERIAL BLOOD PCO2 37.6 mmHg (35-45); ARTERIAL BLOOD PH 7.45 (7.35-7.45); ARTERIAL BLOOD PO2 50.8 mmHg (80-100); ARTERIAL BLOOD TOTAL CO2 26.6 mmol/L (21-25)
[2019-04-30] MEDS ORDERED: CLOPIDOGREL BISULFATE 75 MG TABLET PO ONE (17:45)
[2019-04-30] MEDS ORDERED: ASCORBIC ACID 500 MG TABLET PO ONE (17:45)
[2019-04-30] MEDS ORDERED: GABAPENTIN 300 MG CAPSULE PO ONE (17:45)
[2019-04-30] MEDS ORDERED: VALSARTAN 160 MG TABLET PO ONE (17:45)
[2019-04-30] MEDS ORDERED: AMLODIPINE BESYLATE 10 MG TABLET PO ONE (18:00)
[2019-04-30] MEDS ORDERED: FERROUS SULFATE 325 MG TABLET PO ONE (18:00)
[2019-04-30 18:12] LABS: APPEARANCE,URINE CLEAR; BILIRUBIN,URINE NEGATIVE (NEGATIVE); COLOR,URINE YELLOW; GLUCOSE, URINE NEGATIVE (NEGATIVE); KETONES,URINE NEGATIVE (NEGATIVE); LEUKOCYTE ESTERASE,URINE NEGATIVE (NEGATIVE); NITRITE,URINE NEGATIVE (NEGATIVE); PROTEIN,URINE 100 mg/dL (NEGATIVE); URINE SPECIFIC GRAVITY 1.011
[2019-04-30 18:19] LABS: INTERNATIONAL RATION (INR) 1.22; PARTIAL THROMBOPLASTIN TIME 30.3 SEC (23.5-35.8); PROTHROMBIN TIME 15.5 SEC (11.4-15.4)
[2019-04-30] MEDS: APIXABAN 2.5 MG TABLET PO SCH (18:28)
[2019-04-30] MEDS: FUROSEMIDE 20 MG TABLET PO SCH (18:29)
[2019-04-30 18:37] LABS: FREE T4 (FREE THYROXINE) 1.35 ng/dL (0.78-2.19)
[2019-04-30 18:51] LABS: THYROID STIMULATING HORMONE 1.28 uIU/mL (0.47-4.68)
[2019-04-30] MEDS ORDERED: INSULIN LISPRO 100 UNIT/ML 3 ML VIAL SUBCUT ONE (19:15)
[2019-04-30] MEDS ORDERED: DEXTROSE 50%-WATER SYRINGE 25 GM/50 ML DOSE IV PRN (19:30)
[2019-04-30] MEDS ORDERED: GLUCAGON,HUMAN RECOMB 1 MG INJ IM PRN (19:30)
[2019-04-30] MEDS ORDERED: DEXTROSE 40% GEL 15 GM TUBE PO PRN (19:30)
[2019-04-30] MEDS ORDERED: DEXTROSE 40% GEL 15 GM TUBE X 2 PO PRN (19:30)
[2019-04-30] MEDS ORDERED: DEXTROSE 50%-WATER SYRINGE 12.5 GM/25 ML DOSE IV PRN (19:30)
[2019-04-30] MEDS: OXYCODONE-ACETAMINOPHEN 5-325 MG TABLET PO PRN (19:53)
[2019-04-30] MEDS: MAG HYDROX/AL HYDROX/SIMETH SUSP 30 ML UDCUP PO PRN (19:53)
--- NOTE | 2019-04-30 20:08 | EKG REPORT ---
SEVERITY:- ABNORMAL ECG - SINUS RHYTHM PAIRED VENTRICULAR PREMATURE COMPLEXES LEFT ATRIAL ABNORMALITY LVH WITH SECONDARY REPOLARIZATION ABNORMALITY BORDERLINE PROLONGED QT INTERVAL : Confirmed by: Charlette Harding MD 30-Apr-2019 20:07:23
[2019-04-30] MEDS: ATORVASTATIN CALCIUM 20 MG TABLET PO SCH (21:18)
[2019-04-30] MEDS: INSULIN LISPRO 100 UNIT/ML 3 ML VIAL SUBCUT SCH (21:18)
[2019-04-30] MEDS: GABAPENTIN 300 MG CAPSULE PO SCH (21:18)
[2019-04-30 23:40] LABS: CREATINE KINASE MB 0.53 ng/mL (<4.55)
[2019-04-30 23:47] LABS: TROPONIN I < 0.012 ng/mL
[2019-05-01] MEDS: MUPIROCIN 2% OINTMENT 22 GM TP SCH ×3 (01:57→17:33)
[2019-05-01] MEDS: OXYCODONE-ACETAMINOPHEN 5-325 MG TABLET PO PRN ×3 (03:59→21:07)
[2019-05-01] MEDS: GABAPENTIN 300 MG CAPSULE PO SCH ×3 (05:38→21:16)
[2019-05-01] MEDS: CLOPIDOGREL BISULFATE 75 MG TABLET PO SCH (09:43)
[2019-05-01] MEDS: AMLODIPINE BESYLATE 10 MG TABLET PO SCH (09:43)
[2019-05-01] MEDS: VALSARTAN 160 MG TABLET PO SCH (09:43)
[2019-05-01] MEDS: APIXABAN 2.5 MG TABLET PO SCH ×2 (09:43→17:23)
[2019-05-01] MEDS: FERROUS SULFATE 325 MG TABLET PO SCH (09:43)
[2019-05-01] MEDS: MULTIVITAMIN TABLET PO SCH (09:43)
[2019-05-01] MEDS: ASCORBIC ACID 500 MG TABLET PO SCH (09:43)
[2019-05-01] MEDS: FUROSEMIDE 20 MG TABLET PO SCH (09:44)
[2019-05-01] MEDS: INSULIN LISPRO 100 UNIT/ML 3 ML VIAL SUBCUT SCH ×4 (09:44→21:17)
[2019-05-01 12:18] LABS: ABSOLUTE EOSINOPHILS # (AUTO) 0.1 10^3/uL (0.0-0.6); ABSOLUTE LYMPHOCYTES (AUTO) 1.3 10^3/uL (0.5-4.7); ABSOLUTE MONOCYTES (AUTO) 0.7 10^3/uL (0.1-1.4); ABSOLUTE NEUT (AUTO) 5.2 10^3/uL (1.7-8.2); BASOPHILS % (AUTO) 0.4 % (0-2); EOSINOPHILS % (AUTO) 1.3 % (0-6); HEMATOCRIT 26.7 % (36.0-47.0); HEMOGLOBIN 8.8 g/dL (12.0-15.5); LYMPHOCYTES % (AUTO) 17.5 % (13-45); MEAN CORPUSCULAR HEMOGLOBIN 30.2 pg (27.0-33.4); MEAN CORPUSCULAR HGB CONC 32.9 g/dL (32.0-36.0); MEAN CORPUSCULAR VOLUME 92 fl (80-97); MONOCYTES % (AUTO) 9.6 % (3-13); PLATELET COUNT 241 10^3/uL (150-450); RED BLOOD COUNT 2.91 10^6/uL (3.72-5.28); RED CELL DISTRIBUTION WIDTH 16.8 % (11.5-14.0); SEGMENTED NEUTROPHILS % (AUTO) 71.2 % (42-78); TOTAL CELLS COUNTED % (AUTO) 100 %; WHITE BLOOD COUNT 7.2 10^3/uL (4.0-10.5)
[2019-05-01 12:34] LABS: ALBUMIN 3.5 g/dL (3.5-5.0); ALKALINE PHOSPHATASE 237 U/L (38-126); ANION GAP 11 (5-19); ASPARTATE AMINO TRANSFERASE 21 U/L (14-36); BILIRUBIN,DIRECT 0.2 mg/dL (0.0-0.4); BLOOD UREA NITROGEN 18 mg/dL (7-20); CALCIUM 9.5 mg/dL (8.4-10.2); CARBON DIOXIDE 26 mmol/L (22-30); CHLORIDE 105 mmol/L (98-107); CREATINE KINASE 34 U/L (30-135); GLUCOSE 180 mg/dL (75-110); POTASSIUM 4.6 mmol/L (3.6-5.0); TOTAL PROTEIN 8.4 g/dL (6.3-8.2)
[2019-05-01 12:44] LABS: CREATINE KINASE MB 0.36 ng/mL (<4.55)
[2019-05-01 12:50] LABS: TROPONIN I < 0.012 ng/mL
--- NOTE | 2019-05-01 13:01 | PDOC PROGRESS REPORT ---
Subjective Progress Note for:: 05/01/19 Subjective:: Patient seen by the bedside, she was admitted yesterday for the management of acute on chronic systolic heart failure, burning sensation of the upper abdomen. Reason For Visit: ACUTE SYSTOLIC HEART FAILURE,H/O CHRONIC COMBINED Physical Exam Vital Signs: Temp Pulse Resp BP Pulse Ox 98.1 F 78 17 152/68 H 90 L 05/01/19 07:25 05/01/19 07:25 05/01/19 07:25 05/01/19 07:25 05/01/19 07:25 Intake & Output 04/30/19 05/01/19 05/02/19 06:59 06:59 06:59 Intake Total 360 Output Total 1400 Balance -1040 Weight 96.933 kg 90 kg General appearance: PRESENT: no acute distress Eye exam: PRESENT: PERRLA Respiratory exam: PRESENT: rales Cardiovascular exam: PRESENT: +S1, +S2 GI/Abdominal exam: PRESENT: soft Neurological exam: PRESENT: alert Results Laboratory Results: 05/01/19 11:39 05/01/19 11:39 04/30/19 04/30/19 04/30/19 16:54 17:03 17:15 WBC RBC Hgb Hct MCV MCH MCHC RDW Plt Count Seg Neutrophils % Carbonic Acid 1.13 HCO3/H2CO3 Ratio 22:1 ABG pH 7.45 ABG pCO2 37.6 ABG pO2 50.8 L ABG HCO3 25.5 H ABG O2 Saturation 87.7 L ABG Base Excess 1.5 FiO2 ROOM AIR Sodium Potassium Chloride Carbon Dioxide Anion Gap BUN Creatinine Est GFR ( Amer) Glucose Calcium Magnesium 2.1 Total Bilirubin AST Alkaline Phosphatase Total Protein Albumin TSH Free T4 Urine Color YELLOW Urine Appearance CLEAR Urine pH 7.0 Ur Specific [place] 1.011 Urine Protein 100 H Urine Glucose (UA) NEGATIVE Urine Ketones NEGATIVE Urine Blood NEGATIVE Urine Nitrite NEGATIVE Ur Leukocyte Esterase NEGATIVE Urine WBC (Auto) 0 04/30/19 05/01/19 05/01/19 17:15 11:39 11:39 WBC 7.2 RBC 2.91 L Hgb 8.8 L Hct 26.7 L MCV 92 MCH 30.2 MCHC 32.9 RDW 16.8 H Plt Count 241 Seg Neutrophils % 71.2 Carbonic Acid HCO3/H2CO3 Ratio ABG pH ABG pCO2 ABG pO2 ABG HCO3 ABG O2 Saturation ABG Base Excess FiO2 Sodium 141.7 Potassium 4.6 Chloride 105 Carbon Dioxide 26 Anion Gap 11 BUN 18 Creatinine 0.74 Est GFR ( Amer) > 60 Glucose 180 H Calcium 9.5 Magnesium Total Bilirubin 1.0 AST 21 Alkaline Phosphatase 237 H Total Protein 8.4 H Albumin 3.5 TSH 1.28 Free T4 1.35 Urine Color Urine Appearance Urine pH Ur Specific [place] Urine Protein Urine Glucose (UA) Urine Ketones Urine Blood Urine Nitrite Ur Leukocyte Esterase Urine WBC (Auto) 04/30/19 04/30/19 04/30/19 07:46 09:13 17:15 Creatine Kinase CK-MB (CK-2) Troponin I Cancelled < 0.012 NT-Pro-B Natriuret Pep 5490 H 04/30/19 04/30/19 05/01/19 23:03 23:03 11:39 Creatine Kinase 33 34 CK-MB (CK-2) 0.53 Troponin I < 0.012 NT-Pro-B Natriuret Pep 05/01/19 11:39 Creatine Kinase CK-MB (CK-2) 0.36 Troponin I < 0.012 NT-Pro-B Natriuret Pep Impressions: Foot X-Ray 04/30/19 09:29 IMPRESSION: No evidence of osteomyelitis. Chest X-Ray 04/30/19 14:46 IMPRESSION: Interval placement of right subclavian vascular catheter, tip projecting over the right atrium. Otherwise stable AP portable examination with mild diffuse interstitial pulmonary opacity, likely edema, and gross ca rdiomegaly. Status post median sternotomy. Assessment & Plan - Diagnosis (1) Acute on chronic systolic (congestive) heart failure Is this a current diagnosis for this admission?: Yes Plan: The furosemide will be transitioned to IV infusion at 5 mg/h hopefully this strategy will mobilize enough fluid from third space for diuresis, it seems that the p.o. is no longer effective, this could be from combination of factors including decreased oral intake due to congestion of the absorptive surface of the small intestine due to CHF (2) Upper abdominal pain Is this a current diagnosis for this admission?: Yes Plan: The cardiac enzymes so far negative for any acute [place], start patient on IV Protonix (3) Anemia Qualifiers: Anemia type: unspecified type Qualified Code(s): D64.9 - Anemia, unspecified Is this a current diagnosis for this admission?: Yes Plan: Anemia work-up result pending - Time Time Spent with patient: 35 or more minutes Level of Care: IMCU
[2019-05-01 13:12] LABS: ABSOLUTE RETICS # 0.069 10^6/uL (0.028-0.122); RETICULOCYTE COUNT (AUTO) 2.36 % (0.66-2.85)
[2019-05-01 13:16] LABS: IRON(TIBC) 44.3 ug/dL (37-170)
[2019-05-01] MEDS: PANTOPRAZOLE SODIUM 40 MG VIAL IV SCH (14:20)
[2019-05-01 14:25] LABS: FOLATE > 20.00 ng/mL (>2.76)
[2019-05-01] MEDS: MAG HYDROX/AL HYDROX/SIMETH SUSP 30 ML UDCUP PO PRN (14:30)
[2019-05-01] MEDS: NORMAL SALINE 250 ML with FUROSEMIDE 250 MG IV PRN ×2 (20:04)
[2019-05-01] MEDS: ATORVASTATIN CALCIUM 20 MG TABLET PO SCH (21:16)
[2019-05-02 05:05] LABS: ABSOLUTE EOSINOPHILS # (AUTO) 0.2 10^3/uL (0.0-0.6); ABSOLUTE LYMPHOCYTES (AUTO) 1.6 10^3/uL (0.5-4.7); ABSOLUTE MONOCYTES (AUTO) 0.8 10^3/uL (0.1-1.4); BASOPHILS % (AUTO) 0.2 % (0-2); EOSINOPHILS % (AUTO) 2.6 % (0-6); HEMATOCRIT 27.1 % (36.0-47.0); HEMOGLOBIN 8.9 g/dL (12.0-15.5); LYMPHOCYTES % (AUTO) 24.4 % (13-45); MEAN CORPUSCULAR HEMOGLOBIN 30.2 pg (27.0-33.4); MEAN CORPUSCULAR HGB CONC 32.9 g/dL (32.0-36.0); MEAN CORPUSCULAR VOLUME 92 fl (80-97); MONOCYTES % (AUTO) 11.5 % (3-13); PLATELET COUNT 235 10^3/uL (150-450); RED BLOOD COUNT 2.95 10^6/uL (3.72-5.28); RED CELL DISTRIBUTION WIDTH 16.9 % (11.5-14.0); SEGMENTED NEUTROPHILS % (AUTO) 61.3 % (42-78); TOTAL CELLS COUNTED % (AUTO) 100 %; WHITE BLOOD COUNT 6.6 10^3/uL (4.0-10.5)
[2019-05-02 05:18] LABS: CHOLESTEROL 145.11 mg/dL (0-200); TRIGLYCERIDES 56 mg/dL (<150)
[2019-05-02 05:28] LABS: DIRECT LDL 87 mg/dL (<100)
[2019-05-02] MEDS: GABAPENTIN 300 MG CAPSULE PO SCH ×3 (05:34→22:10)
[2019-05-02] MEDS: INSULIN LISPRO 100 UNIT/ML 3 ML VIAL SUBCUT SCH ×3 (09:10→18:16)
[2019-05-02] MEDS: MULTIVITAMIN TABLET PO SCH (09:16)
[2019-05-02] MEDS: PANTOPRAZOLE SODIUM 40 MG VIAL IV SCH ×2 (09:16→22:10)
[2019-05-02] MEDS: CLOPIDOGREL BISULFATE 75 MG TABLET PO SCH (09:16)
[2019-05-02] MEDS: APIXABAN 2.5 MG TABLET PO SCH ×2 (09:16→18:15)
[2019-05-02] MEDS: ASCORBIC ACID 500 MG TABLET PO SCH (09:16)
[2019-05-02] MEDS: AMLODIPINE BESYLATE 10 MG TABLET PO SCH (09:16)
[2019-05-02] MEDS: FERROUS SULFATE 325 MG TABLET PO SCH (09:16)
[2019-05-02] MEDS: VALSARTAN 160 MG TABLET PO SCH (09:16)
[2019-05-02] MEDS: OXYCODONE-ACETAMINOPHEN 5-325 MG TABLET PO PRN ×2 (09:25→18:15)
[2019-05-02] MEDS: MUPIROCIN 2% OINTMENT 22 GM TP SCH ×2 (09:33→18:17)
[2019-05-02] MEDS: NORMAL SALINE 250 ML with FUROSEMIDE 250 MG IV PRN ×2 (20:19)
[2019-05-02] MEDS: ATORVASTATIN CALCIUM 20 MG TABLET PO SCH (22:10)
[2019-05-03] MEDS: OXYCODONE-ACETAMINOPHEN 5-325 MG TABLET PO PRN ×4 (00:40→21:05)
[2019-05-03] MEDS: INSULIN GLARGINE,HUM.REC.ANLOG 1,000 UNIT/10 ML VIAL SUBCUT SCH ×2 (00:45→21:06)
[2019-05-03] MEDS: INSULIN LISPRO 100 UNIT/ML 3 ML VIAL SUBCUT SCH ×5 (00:46→21:16)
[2019-05-03] MEDS: GABAPENTIN 300 MG CAPSULE PO SCH ×3 (06:41→21:05)
[2019-05-03] MEDS: VALSARTAN 160 MG TABLET PO SCH (10:22)
[2019-05-03] MEDS: FERROUS SULFATE 325 MG TABLET PO SCH (10:22)
[2019-05-03] MEDS: CLOPIDOGREL BISULFATE 75 MG TABLET PO SCH (10:23)
[2019-05-03] MEDS: AMLODIPINE BESYLATE 10 MG TABLET PO SCH (10:23)
[2019-05-03] MEDS: ASCORBIC ACID 500 MG TABLET PO SCH (10:23)
[2019-05-03] MEDS: APIXABAN 2.5 MG TABLET PO SCH ×2 (10:23→17:30)
[2019-05-03] MEDS: PANTOPRAZOLE SODIUM 40 MG VIAL IV SCH ×2 (10:23→21:05)
[2019-05-03] MEDS: MULTIVITAMIN TABLET PO SCH (10:23)
[2019-05-03] MEDS: MUPIROCIN 2% OINTMENT 22 GM TP SCH ×2 (10:27→17:31)
--- NOTE | 2019-05-03 14:06 | PDOC PROGRESS REPORT ---
Subjective Progress Note for:: 05/02/19 Subjective:: Patient continue to complain about abdominal pain. She localized pain to epigastric, LUQ and RUQ regions. She reported some relief with Maalox. No nausea or vomiting. No fever or chills. Reason For Visit: ACUTE SYSTOLIC HEART FAILURE,H/O CHRONIC COMBINED Physical Exam Vital Signs: Temp Pulse Resp BP Pulse Ox 98.6 F 66 17 116/51 L 91 L 05/02/19 15:50 05/02/19 15:50 05/02/19 15:50 05/02/19 15:50 05/02/19 15:50 Intake & Output 05/01/19 05/02/19 05/03/19 06:59 06:59 06:59 Intake Total 360 710 680 Output Total 1400 2100 1300 Balance -1040 -1390 -620 Weight 90 kg 90.3 kg 90.3 kg General appearance: PRESENT: obese Head exam: PRESENT: atraumatic, normocephalic Eye exam: PRESENT: conjunctiva pink. ABSENT: scleral icterus Ear exam: PRESENT: normal external ear exam Mouth exam: PRESENT: moist Teeth exam: PRESENT: poor dentation Respiratory exam: PRESENT: clear to auscultation jerrica, decreased breath sounds - at lung bases Cardiovascular exam: PRESENT: RRR. ABSENT: diastolic murmur, rubs, systolic murmur Vascular exam: ABSENT: pallor GI/Abdominal exam: PRESENT: normal bowel sounds, soft, tenderness - Epigastric, RUQ and LUQ regions.. ABSENT: distended, guarding, mass, organolmegaly, rebound Rectal exam: PRESENT: deferred Extremities exam: PRESENT: pedal edema - compararively improved Neurological exam: PRESENT: alert, awake, oriented to person, oriented to place, oriented to time, oriented to situation, CN II-XII grossly intact. ABSENT: motor sensory deficit Psychiatric exam: PRESENT: appropriate affect, normal mood. ABSENT: homicidal ideation, suicidal ideation Skin exam: PRESENT: dry, warm, other - left calcaneal region with devitalized tissue and mucopurulent base. Results Laboratory Results: 05/02/19 04:52 05/01/19 11:39 05/02/19 05/02/19 04:52 04:52 WBC 6.6 RBC 2.95 L Hgb 8.9 L Hct 27.1 L MCV 92 MCH 30.2 MCHC 32.9 RDW 16.9 H Plt Count 235 Seg Neutrophils % 61.3 Triglycerides 56 Cholesterol 145.11 LDL Cholesterol Direct 87 VLDL Cholesterol 11.0 HDL Cholesterol 34 L 04/30/19 17:03 Catheterized Urine Urine Culture - Final NO GROWTH 2 DAYS 04/30/19 04/30/19 04/30/19 07:46 09:13 17:15 Creatine Kinase CK-MB (CK-2) Troponin I Cancelled < 0.012 NT-Pro-B Natriuret Pep 5490 H 04/30/19 04/30/19 05/01/19 23:03 23:03 11:39 Creatine Kinase 33 34 CK-MB (CK-2) 0.53 Troponin I < 0.012 NT-Pro-B Natriuret Pep 05/01/19 11:39 Creatine Kinase CK-MB (CK-2) 0.36 Troponin I < 0.012 NT-Pro-B Natriuret Pep Impressions: Foot X-Ray 04/30/19 09:29 IMPRESSION: No evidence of osteomyelitis. Chest X-Ray 04/30/19 14:46 IMPRESSION: Interval placement of right subclavian vascular catheter, tip projecting over the right atrium. Otherwise stable AP portable examination with mild diffuse interstitial pulmonary opacity, likely edema, and gross cardiomegaly. Status post median sternotomy. Assessment & Plan - Diagnosis (1) Upper abdominal pain Is this a current diagnosis for this admission?: Yes Plan: Increase IV Protonix to q12 hours. Maintain on Maalox qid prn for abdominal pain flare. (2) Acute on chronic combined systolic and diastolic CHF, NYHA class 3 Is this a current diagnosis for this admission?: Yes Plan: Continue current CHF treatment protocol. (3) Decubitus ulcer of left heel, stage 4 Is this a current diagnosis for this admission?: Yes Plan: Start on Santyl topically ti devitalized tissue area of the left heel wound with wet to dry dressing. (4) Diabetes mellitus type 2 in obese Is this a current diagnosis for this admission?: Yes Plan: Maintain on current medication management. Continue achs accuchek monitoring. (5) Hypertension Qualifiers: Hypertension type: essential hypertension Qualified Code(s): I10 - Essential (primary) hypertension Is this a current diagnosis for this admission?: Yes Plan: Maintain on current medication management. (6) CAD (coronary artery disease) Qualifiers: Coronary Disease-Associated Artery/Lesion type: unspecified vessel or lesion type [place] vs. transplanted heart: [place] heart Associated angina: without angina Qualified Code(s): I25.10 - Atherosclerotic heart disease of [place] coronary artery without angina pectoris Is this a current diagnosis for this admission?: Yes Plan: Maintain on current medication management. (7) Hyperlipidemia Qualifiers: Hyperlipidemia type: unspecified Qualified Code(s): E78.5 - Hyperlipidemia, unspecified Is this a current diagnosis for this admission?: Yes Plan: Maintain on current medication management. (8) S/P CABG (coronary artery bypass graft) Is this a current diagnosis for this admission?: Yes Plan: Maintain on current medication management. (9) Chronic use of opiate for therapeutic purpose Is this a current diagnosis for this admission?: Yes Plan: Maintain on current medication management. - Time Time Spent with patient: 35 or more minutes Level of Care: IMCU Medications reviewed and adjusted accordingly: Yes Anticipated discharge: Home with Homehealth Within: Other - Inpatient Certification Based on my medical assessment, after consideration of the patient's comorbidities, presenting symptoms, or acuity I expect that the services needed warrant INPATIENT care.: Yes I certify that my determination is in accordance with my understanding of Medicare's requirements for reasonable and necessary INPATIENT services [42 CFR 412.3e].: Yes Medical Necessity: Significant Comorbidiites Make Outpatient Treatment Too Risky, Need Close Monitoring Due to Risk of Patient Decompensation, Need For IV Fluids, Need For Continuous Telemetry Monitoring, Risk of Complication if Not Cared For in Hospital, Risk of Diagnosis Which Will Require Inpatient Eval/Care/Monitoring Post Hospital Care: D/C Content Assistant Documentation - Plan Summary Plan Summary: See attending physician orders for details about care plan.
--- NOTE | 2019-05-03 14:13 | PDOC PROGRESS REPORT ---
Subjective Progress Note for:: 05/03/19 Subjective:: Patient continue to complain about abdominal pain in the epigastric, RUQ and LUQ regions. she is not using prn Maalox. Currently on IV Protonix 40 mg q12 hours. No nausea or vomiting. No fever or chills Reason For Visit: ACUTE SYSTOLIC HEART FAILURE,H/O CHRONIC COMBINED Physical Exam Vital Signs: Temp Pulse Resp BP Pulse Ox 98.3 F 67 17 138/62 H 94 05/03/19 07:30 05/03/19 07:30 05/03/19 07:30 05/03/19 07:30 05/03/19 07:30 Intake & Output 05/02/19 05/03/19 05/04/19 06:59 06:59 06:59 Intake Total 710 801 Output Total 2100 2300 Balance -1390 -1499 Weight 90.3 kg 90.26 kg Results Laboratory Results: 05/02/19 04:52 05/01/19 11:39 04/30/19 17:03 Catheterized Urine Urine Culture - Final NO GROWTH 2 DAYS 04/30/19 04/30/19 04/30/19 07:46 09:13 17:15 Creatine Kinase CK-MB (CK-2) Troponin I Cancelled < 0.012 NT-Pro-B Natriuret Pep 5490 H 04/30/19 04/30/19 05/01/19 23:03 23:03 11:39 Creatine Kinase 33 34 CK-MB (CK-2) 0.53 Troponin I < 0.012 NT-Pro-B Natriuret Pep 05/01/19 11:39 Creatine Kinase CK-MB (CK-2) 0.36 Troponin I < 0.012 NT-Pro-B Natriuret Pep Impressions: Foot X-Ray 04/30/19 09:29 IMPRESSION: No evidence of osteomyelitis. Chest X-Ray 04/30/19 14:46 IMPRESSION: Interval placement of right subclavian vascular catheter, tip projecting over the right atrium. Otherwise stable AP portable examination with mild diffuse interstitial pulmonary opacity, likely edema, and gross cardiomegaly. Status post median sternotomy. Assessment & Plan - Diagnosis (1) Upper abdominal pain Is this a current diagnosis for this admission?: Yes (2) Acute on chronic combined systolic and diastolic CHF, NYHA class 3 Is this a current diagnosis for this admission?: Yes (3) Decubitus ulcer of left heel, stage 4 Is this a current diagnosis for this admission?: Yes (4) Diabetes mellitus type 2 in obese Is this a current diagnosis for this admission?: Yes (5) Hypertension Qualifiers: Hypertension type: essential hypertension Qualified Code(s): I10 - Essential (primary) hypertension Is this a current diagnosis for this admission?: Yes (6) CAD (coronary artery disease) Qualifiers: Coronary Disease-Associated Artery/Lesion type: unspecified vessel or lesion type [place] vs. transplanted heart: [place] heart Associated angina: without angina Qualified Code(s): I25.10 - Atherosclerotic heart disease of [place] coronary artery without angina pectoris Is this a current diagnosis for this admission?: Yes (7) Hyperlipidemia Qualifiers: Hyperlipidemia type: unspecified Qualified Code(s): E78.5 - Hyperlipidemia, unspecified Is this a current diagnosis for this admission?: Yes (8) S/P CABG (coronary artery bypass graft) Is this a current diagnosis for this admission?: Yes (9) Chronic use of opiate for therapeutic purpose Is this a current diagnosis for this admission?: Yes - Time Time Spent with patient: 25-34 minutes Level of Care: IMCU Medications reviewed and adjusted accordingly: Yes Anticipated discharge: Home with Homehealth Within: Other - Inpatient Certification Based on my medical assessment, after consideration of the patient's comorbidities, presenting symptoms, or acuity I expect that the services needed warrant INPATIENT care.: Yes I certify that my determination is in accordance with my understanding of Medicare's requirements for reasonable and necessary INPATIENT services [42 CFR 412.3e].: Yes Medical Necessity: Significant Comorbidiites Make Outpatient Treatment Too Risky, Need Close Monitoring Due to Risk of Patient Decompensation, Need For Continuous Telemetry Monitoring, Risk of Complication if Not Cared For in Hospital, Risk of Diagnosis Which Will Require Inpatient Eval/Care/Monitoring Post Hospital Care: D/C Visual Developer Documentation - Plan Summary Plan Summary: D/C IV Lasix. Restart on Lasix 40 mg p.o bid. Maintain on all other current medication management.
[2019-05-03] MEDS: FUROSEMIDE 20 MG TABLET PO SCH (17:30)
[2019-05-03] MEDS ORDERED: INSULIN GLARGINE,HUM.REC.ANLOG 1,000 UNIT/10 ML VIAL (PYX) SUBCUT ONE (21:04)
[2019-05-03] MEDS: MAG HYDROX/AL HYDROX/SIMETH SUSP 30 ML UDCUP PO PRN (21:05)
[2019-05-03] MEDS: ATORVASTATIN CALCIUM 20 MG TABLET PO SCH (21:06)
[2019-05-04] MEDS: MAG HYDROX/AL HYDROX/SIMETH SUSP 30 ML UDCUP PO PRN (02:49)
[2019-05-04] MEDS: OXYCODONE-ACETAMINOPHEN 5-325 MG TABLET PO PRN ×3 (02:49→21:45)
[2019-05-04] MEDS: GABAPENTIN 300 MG CAPSULE PO SCH ×3 (05:39→21:45)
[2019-05-04] MEDS: INSULIN LISPRO 100 UNIT/ML 3 ML VIAL SUBCUT SCH ×4 (08:02→21:32)
[2019-05-04] MEDS: PANTOPRAZOLE SODIUM 40 MG VIAL IV SCH ×2 (09:54→21:45)
[2019-05-04] MEDS: CLOPIDOGREL BISULFATE 75 MG TABLET PO SCH (09:55)
[2019-05-04] MEDS: FERROUS SULFATE 325 MG TABLET PO SCH (09:55)
[2019-05-04] MEDS: VALSARTAN 160 MG TABLET PO SCH (09:55)
[2019-05-04] MEDS: MULTIVITAMIN TABLET PO SCH (09:55)
[2019-05-04] MEDS: FUROSEMIDE 20 MG TABLET PO SCH ×2 (09:55→17:13)
[2019-05-04] MEDS: MUPIROCIN 2% OINTMENT 22 GM TP SCH ×2 (09:55→17:13)
[2019-05-04] MEDS: APIXABAN 2.5 MG TABLET PO SCH ×2 (09:55→17:13)
[2019-05-04] MEDS: AMLODIPINE BESYLATE 10 MG TABLET PO SCH (09:55)
[2019-05-04] MEDS: ASCORBIC ACID 500 MG TABLET PO SCH (09:55)
[2019-05-04] MEDS ORDERED: INSULIN GLARGINE,HUM.REC.ANLOG 1,000 UNIT/10 ML VIAL (PYX) SUBCUT ONE (21:41)
[2019-05-04] MEDS: ATORVASTATIN CALCIUM 20 MG TABLET PO SCH (21:45)
[2019-05-04] MEDS: INSULIN GLARGINE,HUM.REC.ANLOG 1,000 UNIT/10 ML VIAL SUBCUT SCH (21:45)
--- NOTE | 2019-05-04 22:54 | PDOC PROGRESS REPORT ---
Subjective Progress Note for:: 05/04/19 Subjective:: Still, there is still concern about abdominal pain. No nausea or vomiting. No fever or chills. No chest pain or difficulty with breathing. Reason For Visit: ACUTE SYSTOLIC HEART FAILURE,H/O CHRONIC COMBINED Physical Exam Vital Signs: Temp Pulse Resp BP Pulse Ox 97.2 F 65 17 141/68 H 92 05/04/19 07:19 05/04/19 07:19 05/04/19 07:19 05/04/19 07:19 05/04/19 07:19 Intake & Output 05/03/19 05/04/19 05/05/19 06:59 06:59 06:59 Intake Total 801 1380 Output Total 2300 3500 Balance -1499 -2120 Weight 90.26 kg 90.1 kg Physical Exam: Head exam: PRESENT: atraumatic, normocephalic Eye exam: PRESENT: conjunctiva pink. ABSENT: pallor, scleral icterus Ear exam: PRESENT: normal external ear exam Mouth exam: PRESENT: moist Teeth exam: PRESENT: poor dentition Respiratory exam: PRESENT: clear to auscultation jerrica, decreased breath sounds - at lung bases Cardiovascular exam: PRESENT: RRR. ABSENT: diastolic murmur, rubs, systolic murmur GI/Abdominal exam: PRESENT: normal bowel sounds, soft, nonspecific epigastric, RUQ and LUQ regions tenderness to deep palpation ABSENT: distended, guarding, mass, organomegaly, rebound Extremities exam: PRESENT: pedal edema - comparatively improved Neurological exam: PRESENT: alert, awake, oriented to person, oriented to place, oriented to time, oriented to situation, CN II-XII grossly intact. ABSENT: motor sensory deficit Psychiatric exam: PRESENT: appropriate affect, normal mood. ABSENT: homicidal ideation, suicidal ideation Skin exam: PRESENT: dry, warm, other - improving left calcaneal region diabetic ulcer. Results Laboratory Results: 05/02/19 04:52 05/01/19 11:39 04/30/19 04/30/19 04/30/19 07:46 09:13 17:15 Creatine Kinase CK-MB (CK-2) Troponin I Cancelled < 0.012 NT-Pro-B Natriuret Pep 5490 H 04/30/19 04/30/19 05/01/19 23:03 23:03 11:39 Creatine Kinase 33 34 CK-MB (CK-2) 0.53 Troponin I < 0.012 NT-Pro-B Natriuret Pep 05/01/19 11:39 Creatine Kinase CK-MB (CK-2) 0.36 Troponin I < 0.012 NT-Pro-B Natriuret Pep Impressions: Foot X-Ray 04/30/19 09:29 IMPRESSION: No evidence of osteomyelitis. Chest X-Ray 04/30/19 14:46 IMPRESSION: Interval placement of right subclavian vascular catheter, tip projecting over the right atrium. Otherwise stable AP portable examination with mild diffuse interstitial pulmonary opacity, likely edema, and gross cardiomegaly. Status post median sternotomy. Assessment & Plan - Diagnosis (1) Upper abdominal pain Is this a current diagnosis for this admission?: Yes (2) Acute on chronic combined systolic and diastolic CHF, NYHA class 3 Is this a current diagnosis for this admission?: Yes (3) Decubitus ulcer of left heel, stage 4 Is this a current diagnosis for this admission?: Yes (4) Diabetes mellitus type 2 in obese Is this a current diagnosis for this admission?: Yes (5) Hypertension Qualifiers: Hypertension type: essential hypertension Qualified Code(s): I10 - Essential (primary) hypertension Is this a current diagnosis for this admission?: Yes (6) CAD (coronary artery disease) Qualifiers: Coronary Disease-Associated Artery/Lesion type: unspecified vessel or lesion type [place] vs. transplanted heart: [place] heart Associated angina: without angina Qualified Code(s): I25.10 - Atherosclerotic heart disease of [place] coronary artery without angina pectoris Is this a current diagnosis for this admission?: Yes (7) Hyperlipidemia Qualifiers: Hyperlipidemia type: unspecified Qualified Code(s): E78.5 - Hyperlipidemia, unspecified Is this a current diagnosis for this admission?: Yes (8) S/P CABG (coronary artery bypass graft) Is this a current diagnosis for this admission?: Yes (9) Chronic use of opiate for therapeutic purpose Is this a current diagnosis for this admission?: Yes - Time Time Spent with patient: 25-34 minutes Level of Care: IMCU Medications reviewed and adjusted accordingly: Yes Anticipated discharge: Home with Homehealth Within: Other - Inpatient Certification Based on my medical assessment, after consideration of the patient's comorbidities, presenting symptoms, or acuity I expect that the services needed warrant INPATIENT care.: Yes I certify that my determination is in accordance with my understanding of Medicare's requirements for reasonable and necessary INPATIENT services [42 CFR 412.3e].: Yes Medical Necessity: Significant Comorbidiites Make Outpatient Treatment Too Risky, Need Close Monitoring Due to Risk of Patient Decompensation, Need For Continuous Telemetry Monitoring, Need for IV Antibiotics, Risk of Complication if Not Cared For in Hospital, Risk of Diagnosis Which Will Require Inpatient Eval/Care/Monitoring Post Hospital Care: D/C Horse Identifier Documentation - Plan Summary Plan Summary: D/C IV Protonix. Maintain on Protonix 40 mg p.o bid. Continue on all other current medication management. Follow up on GI consultation with Dr. Sosa.
[2019-05-05] MEDS: GABAPENTIN 300 MG CAPSULE PO SCH ×3 (05:52→21:57)
[2019-05-05] MEDS: INSULIN LISPRO 100 UNIT/ML 3 ML VIAL SUBCUT SCH ×4 (07:43→21:37)
[2019-05-05] MEDS: PANTOPRAZOLE SODIUM 40 MG VIAL IV SCH ×2 (09:44→21:57)
[2019-05-05] MEDS: VALSARTAN 160 MG TABLET PO SCH (09:45)
[2019-05-05] MEDS: FUROSEMIDE 20 MG TABLET PO SCH ×2 (09:45→19:48)
[2019-05-05] MEDS: ASCORBIC ACID 500 MG TABLET PO SCH (09:48)
[2019-05-05] MEDS: FERROUS SULFATE 325 MG TABLET PO SCH (09:49)
[2019-05-05] MEDS: CLOPIDOGREL BISULFATE 75 MG TABLET PO SCH (09:49)
[2019-05-05] MEDS: AMLODIPINE BESYLATE 10 MG TABLET PO SCH (09:49)
[2019-05-05] MEDS: APIXABAN 2.5 MG TABLET PO SCH ×2 (09:49→19:48)
[2019-05-05] MEDS: MULTIVITAMIN TABLET PO SCH (09:50)
[2019-05-05] MEDS: MUPIROCIN 2% OINTMENT 22 GM TP SCH ×2 (09:50→19:48)
[2019-05-05] MEDS: OXYCODONE-ACETAMINOPHEN 5-325 MG TABLET PO PRN ×2 (11:50→21:57)
--- NOTE | 2019-05-05 14:39 | PDOC PROGRESS REPORT ---
Subjective Progress Note for:: 05/05/19 Subjective:: She continue to express limiting abdominal pain. P.O intake decreased due to fear of abdominal pain. No nausea or vomiting. Patient reported minimal benefit from Maalox. No fever or chills. No chest pain or difficulty with breathing. Reason For Visit: ACUTE SYSTOLIC HEART FAILURE,H/O CHRONIC COMBINED Physical Exam Vital Signs: Temp Pulse Resp BP Pulse Ox 99.0 F 71 16 129/61 H 94 05/05/19 12:20 05/05/19 13:58 05/05/19 12:20 05/05/19 12:20 05/05/19 12:20 Intake & Output 05/04/19 05/05/19 05/06/19 06:59 06:59 06:59 Intake Total 1380 1180 400 Output Total 3500 2250 400 Balance -2120 -1070 0 Weight 90.1 kg 91.1 kg Physical Exam: Head exam: PRESENT: atraumatic, normocephalic Eye exam: PRESENT: conjunctiva pink. ABSENT: pallor, scleral icterus Ear exam: PRESENT: normal external ear exam Mouth exam: PRESENT: moist Teeth exam: PRESENT: poor dentition Respiratory exam: PRESENT: clear to auscultation jerrica, decreased breath sounds - at lung bases Cardiovascular exam: PRESENT: RRR. ABSENT: diastolic murmur, rubs, systolic murmur GI/Abdominal exam: PRESENT: normal bowel sounds, soft, nonspecific epigastric, RUQ and LUQ regions tenderness to deep palpation ABSENT: distended, guarding, mass, organomegaly, rebound Extremities exam: PRESENT: pedal edema - comparatively improved Neurological exam: PRESENT: alert, awake, oriented to person, oriented to place, oriented to time, oriented to situation, CN II-XII grossly intact. ABSENT: motor sensory deficit Psychiatric exam: PRESENT: appropriate affect, normal mood. ABSENT: homicidal ideation, suicidal ideation Skin exam: PRESENT: dry, warm, other - improving left calcaneal region diabetic ulcer. Results Laboratory Results: 05/02/19 04:52 05/01/19 11:39 04/30/19 04/30/19 04/30/19 07:46 09:13 17:15 Creatine Kinase CK-MB (CK-2) Troponin I Cancelled < 0.012 NT-Pro-B Natriuret Pep 5490 H 04/30/19 04/30/19 05/01/19 23:03 23:03 11:39 Creatine Kinase 33 34 CK-MB (CK-2) 0.53 Troponin I < 0.012 NT-Pro-B Natriuret Pep 05/01/19 11:39 Creatine Kinase CK-MB (CK-2) 0.36 Troponin I < 0.012 NT-Pro-B Natriuret Pep Impressions: Foot X-Ray 04/30/19 09:29 IMPRESSION: No evidence of osteomyelitis. Chest X-Ray 04/30/19 14:46 IMPRESSION: Interval placement of right subclavian vascular catheter, tip projecting over the right atrium. Otherwise stable AP portable examination with mild diffuse interstitial pulmonary opacity, likely edema, and gross cardiomegaly. Status post median sternotomy. Assessment & Plan - Diagnosis (1) Upper abdominal pain Is this a current diagnosis for this admission?: Yes (2) Acute on chronic combined systolic and diastolic CHF, NYHA class 3 Is this a current diagnosis for this admission?: Yes (3) Decubitus ulcer of left heel, stage 4 Is this a current diagnosis for this admission?: Yes (4) Diabetes mellitus type 2 in obese Is this a current diagnosis for this admission?: Yes (5) Hypertension Qualifiers: Hypertension type: essential hypertension Qualified Code(s): I10 - Essential (primary) hypertension Is this a current diagnosis for this admission?: Yes (6) CAD (coronary artery disease) Qualifiers: Coronary Disease-Associated Artery/Lesion type: unspecified vessel or lesion type [place] vs. transplanted heart: [place] heart Associated angina: without angina Qualified Code(s): I25.10 - Atherosclerotic heart disease of [place] coronary artery without angina pectoris Is this a current diagnosis for this admission?: Yes (7) Hyperlipidemia Qualifiers: Hyperlipidemia type: unspecified Qualified Code(s): E78.5 - Hyperlipidemia, unspecified Is this a current diagnosis for this admission?: Yes (8) S/P CABG (coronary artery bypass graft) Is this a current diagnosis for this admission?: Yes (9) Chronic use of opiate for therapeutic purpose Is this a current diagnosis for this admission?: Yes - Time Time Spent with patient: 35 or more minutes Level of Care: IMCU Medications reviewed and adjusted accordingly: Yes Anticipated discharge: Home with Homehealth, SNF Within: Other - Inpatient Certification Based on my medical assessment, after consideration of the patient's comorbidities, presenting symptoms, or acuity I expect that the services needed warrant INPATIENT care.: Yes I certify that my determination is in accordance with my understanding of Medicare's requirements for reasonable and necessary INPATIENT services [42 CFR 412.3e].: Yes Medical Necessity: Significant Comorbidiites Make Outpatient Treatment Too Risky, Need Close Monitoring Due to Risk of Patient Decompensation, Need For Continuous Telemetry Monitoring, Need for Pain Control, Risk of Complication if Not Cared For in Hospital, Risk of Diagnosis Which Will Require Inpatient Eval/Care/Monitoring Post Hospital Care: D/C Dressage Judge Documentation, D/C or Transfer Summary - Plan Summary Plan Summary: Obtain CT scan abdomen and pelvis with contrast. Follow up with GI on consultation recommendation.
[2019-05-05] MEDS ORDERED: INSULIN GLARGINE,HUM.REC.ANLOG 1,000 UNIT/10 ML VIAL (PYX) SUBCUT ONE (21:52)
[2019-05-05] MEDS: INSULIN GLARGINE,HUM.REC.ANLOG 1,000 UNIT/10 ML VIAL SUBCUT SCH (21:55)
[2019-05-05] MEDS: ATORVASTATIN CALCIUM 20 MG TABLET PO SCH (21:56)
[2019-05-06] MEDS: OXYCODONE-ACETAMINOPHEN 5-325 MG TABLET PO PRN ×3 (03:06→21:24)
[2019-05-06] MEDS: GABAPENTIN 300 MG CAPSULE PO SCH ×3 (05:51→21:25)
[2019-05-06] MEDS: INSULIN LISPRO 100 UNIT/ML 3 ML VIAL SUBCUT SCH ×4 (08:51→22:41)
--- NOTE | 2019-05-06 08:52 | RADIOLOGY REPORT (SQ) ---
EXAM DESCRIPTION: CT ABD/PELVIS WITH IV ORAL COMPLETED DATE/TIME: 05/05/2019 6:53 pm REASON FOR STUDY: Persistent abdominal pain COMPARISON: 12/04/2018. TECHNIQUE: CT scan of the abdomen and pelvis performed with intravenous and oral contrast using yannick janeth scanning technique with dynamic intravenous contrast injection. Images reviewed with lung, soft t issue, and bone windows. Reconstructed coronal and sagittal MPR images reviewed. Delayed images for e valuation of the urinary system also acquired. All images stored on PACS. All CT scanners at this facility use dose modulation, iterative reconstruction, and/or weight based d osing when appropriate to reduce radiation dose to as low as reasonably achievable (ALARA). [facility]: Dose Right [facility]: CareDose [facility]: Dose Right [facility]: Teradose 4D [facility]: Shape Collage CONTRAST TYPE AND DOSE: contrast/concentration: Isovue 350.00 mg/ml; Total Contrast Delivered: 100.0 ml; Total Saline Delivered: 72.0 ml RENAL FUNCTION: GFR > 60. RADIATION DOSE: CT Rad equipment meets quality standard of care and radiation dose reduction techniq ues were employed. CTDIvol: 18.0 - 19.6 mGy. DLP: 1925 mGy-cm.. LIMITATIONS: None. FINDINGS: LOWER CHEST: Cardiomegaly. Trace left pleural fluid, clear lung bases otherwise LIVER: Heterogeneous liver on initial pre contrast scanning. This normalizes on delayed imaging. In determinate significance, no evidence of portal or hepatic venous thrombus or discrete mass. This is probably chronic and could reflect intrinsic liver disease scratch the. SPLEEN: Normal size. No focal lesions. PANCREAS: No masses. No significant calcifications. No adjacent inflammation or peripancreatic fluid collections. Pancreatic duct not dilated. GALLBLADDER: Cholelithiasis. Mildly contracted. ADRENAL GLANDS: No significant masses or asymmetry. RIGHT KIDNEY AND URETER: No solid masses. No significant calcification. No hydronephrosis or hydroure ter. LEFT KIDNEY AND URETER: No solid masses. No significant calcification. No hydronephrosis or hydrouret er. AORTA AND VESSELS: Heavily atherosclerotic without aneurysm or dissection or overt arterial occlusion . No evidence of venous clot. RETROPERITONEUM: Mild retroperitoneal adenopathy is probably stable. Upper left para-aortic nodes me asure up to 1.5 cm in short axis and look similar to perhaps slightly increased compared to November. BOWEL AND PERITONEAL CAVITY: Moderate stool. No evidence of overt mechanical bowel obstruction. No significant ascites or abnormal gas. APPENDIX: Normal. PELVIS: Bladder decompressed by a Lantigua catheter. Artifact within the endometrial cavity suggests a retained IUD or similar device. This is chronic. 3.5 cm chronic air collection in the left hemipelv is containing a small fluid level ; see series 3, image 63 and adjacent slices. Presumably this comm unicates with regional bowel and may represent a diverticulum. ABDOMINAL WALL: Minimal umbilical hernia. BONES: No significant or acute findings. OTHER: No other significant finding. IMPRESSION: 1. Similar appearance compared to prior study. 2. Cardiomegaly and mild pleural fluid, suggests mild congestive failure. 3. Mildly heterogeneous liver, transient. See above. This is nonspecific. 4. Heavy atherosclerosis. 5. Pelvic findings are nonprogressive including what may be a gas and fluid containing diverticulum i n the left hemipelvis. 6. No acute findings are suggested otherwise. TECHNICAL DOCUMENTATION: JOB ID: [id number] Quality ID # [id number]: Final reports with documentation of one or more dose reduction techniques (e.g., Au tomated exposure control, adjustment of the mA and/or kV according to patient size, use of iterative reconstruction technique) 2010 [employer]- All Rights Reserved Reading location - IP/workstation name: [email or web address]
[2019-05-06] MEDS: VALSARTAN 160 MG TABLET PO SCH (10:41)
[2019-05-06] MEDS: MUPIROCIN 2% OINTMENT 22 GM TP SCH ×2 (10:41→17:29)
[2019-05-06] MEDS: APIXABAN 2.5 MG TABLET PO SCH ×2 (10:41→17:29)
[2019-05-06] MEDS: FERROUS SULFATE 325 MG TABLET PO SCH (10:41)
[2019-05-06] MEDS: CLOPIDOGREL BISULFATE 75 MG TABLET PO SCH (10:41)
[2019-05-06] MEDS: FUROSEMIDE 20 MG TABLET PO SCH ×2 (10:41→17:29)
[2019-05-06] MEDS: AMLODIPINE BESYLATE 10 MG TABLET PO SCH (10:41)
[2019-05-06] MEDS: ASCORBIC ACID 500 MG TABLET PO SCH (10:41)
[2019-05-06] MEDS: MULTIVITAMIN TABLET PO SCH (10:42)
[2019-05-06] MEDS: PANTOPRAZOLE SODIUM 40 MG VIAL IV SCH ×2 (10:42→21:24)
--- NOTE | 2019-05-06 12:04 | PDOC PROGRESS REPORT ---
Subjective Progress Note for:: 05/06/19 Subjective:: Patient reported continued abdominal pain. No nausea or vomiting. No fever or chills. No chest pain or difficulty with breathing. Reason For Visit: ACUTE SYSTOLIC HEART FAILURE,H/O CHRONIC COMBINED Physical Exam Vital Signs: Temp Pulse Resp BP Pulse Ox 98.4 F 66 17 122/54 L 95 05/06/19 07:22 05/06/19 07:22 05/06/19 07:22 05/06/19 07:22 05/06/19 07:22 Intake & Output 05/05/19 05/06/19 05/07/19 06:59 06:59 06:59 Intake Total 1180 1090 Output Total 2250 1850 Balance -1070 -760 Weight 91.1 kg 87.7 kg Physical Exam: Head exam: PRESENT: atraumatic, normocephalic Eye exam: PRESENT: conjunctiva pink. ABSENT: pallor, scleral icterus Ear exam: PRESENT: normal external ear exam Mouth exam: PRESENT: moist Teeth exam: PRESENT: poor dentition Respiratory exam: PRESENT: clear to auscultation jerrica, decreased breath sounds - at lung bases Cardiovascular exam: PRESENT: RRR. ABSENT: diastolic murmur, rubs, systolic murmur GI/Abdominal exam: PRESENT: normal bowel sounds, soft, nonspecific diffuse tenderness to palpation ABSENT: distended, guarding, mass, organomegaly, rebound Extremities exam: PRESENT: pedal edema - comparatively improved Neurological exam: PRESENT: alert, awake, oriented to person, oriented to place, oriented to time, oriented to situation, CN II-XII grossly intact. ABSENT: motor sensory deficit Psychiatric exam: PRESENT: appropriate affect, normal mood. ABSENT: homicidal ideation, suicidal ideation Skin exam: PRESENT: dry, warm, other - improving left calcaneal region diabetic ulcer. Results Laboratory Results: 05/02/19 04:52 05/01/19 11:39 04/30/19 04/30/19 04/30/19 07:46 09:13 17:15 Creatine Kinase CK-MB (CK-2) Troponin I Cancelled < 0.012 NT-Pro-B Natriuret Pep 5490 H 04/30/19 04/30/19 05/01/19 23:03 23:03 11:39 Creatine Kinase 33 34 CK-MB (CK-2) 0.53 Troponin I < 0.012 NT-Pro-B Natriuret Pep 05/01/19 11:39 Creatine Kinase CK-MB (CK-2) 0.36 Troponin I < 0.012 NT-Pro-B Natriuret Pep Impressions: Foot X-Ray 04/30/19 09:29 IMPRESSION: No evidence of osteomyelitis. Chest X-Ray 04/30/19 14:46 IMPRESSION: Interval placement of right subclavian vascular catheter, tip projecting over the right atrium. Otherwise stable AP portable examination with mild diffuse interstitial pulmonary opacity, likely edema, and gross cardiomegaly. Status post median sternotomy. Abdomen/Pelvis CT 05/05/19 00:00 IMPRESSION: 1. Similar appearance compared to prior study. 2. Cardiomegaly and mild pleural fluid, suggests mild congestive failure. 3. Mildly heterogeneous liver, transient. See above. This is nonspecific. 4. Heavy atherosclerosis. 5. Pelvic findings are nonprogressive including what may be a gas and fluid containing diverticulum in the left hemipelvis. 6. No acute findings are suggested otherwise. Assessment & Plan - Diagnosis (1) Upper abdominal pain Is this a current diagnosis for this admission?: Yes (2) Acute on chronic combined systolic and diastolic CHF, NYHA class 3 Is this a current diagnosis for this admission?: Yes (3) Decubitus ulcer of left heel, stage 4 Is this a current diagnosis for this admission?: Yes (4) Diabetes mellitus type 2 in obese Is this a current diagnosis for this admission?: Yes (5) Hypertension Qualifiers: Hypertension type: essential hypertension Qualified Code(s): I10 - Essential (primary) hypertension Is this a current diagnosis for this admission?: Yes (6) CAD (coronary artery disease) Qualifiers: Coronary Disease-Associated Artery/Lesion type: unspecified vessel or lesion type [place] vs. transplanted heart: [place] heart Associated angina: without angina Qualified Code(s): I25.10 - Atherosclerotic heart disease of [place] coronary artery without angina pectoris Is this a current diagnosis for this admission?: Yes (7) Hyperlipidemia Qualifiers: Hyperlipidemia type: unspecified Qualified Code(s): E78.5 - Hyperlipidemia, unspecified Is this a current diagnosis for this admission?: Yes (8) S/P CABG (coronary artery bypass graft) Is this a current diagnosis for this admission?: Yes (9) Chronic use of opiate for therapeutic purpose Is this a current diagnosis for this admission?: Yes - Time Time Spent with patient: 35 or more minutes Level of Care: IMCU Medications reviewed and adjusted accordingly: Yes Anticipated discharge: Home with Homehealth Within: Other - Inpatient Certification Based on my medical assessment, after consideration of the patient's comorbidities, presenting symptoms, or acuity I expect that the services needed warrant INPATIENT care.: Yes I certify that my determination is in accordance with my understanding of Medicare's requirements for reasonable and necessary INPATIENT services [42 CFR 412.3e].: Yes Medical Necessity: Significant Comorbidiites Make Outpatient Treatment Too Risky, Need Close Monitoring Due to Risk of Patient Decompensation, Need For IV Fluids, Need For Continuous Telemetry Monitoring, Need for Pain Control, Risk of Complication if Not Cared For in Hospital, Risk of Diagnosis Which Will Require Inpatient Eval/Care/Monitoring Post Hospital Care: D/C Stained Glass Installer Documentation, D/C or Transfer Summary - Plan Summary Plan Summary: Continue current medication management. follow up with GI quality compliance consultant regarding need for any endoscopic evaluation at this time.
[2019-05-06] MEDS: ATORVASTATIN CALCIUM 20 MG TABLET PO SCH (21:25)
[2019-05-06] MEDS ORDERED: INSULIN GLARGINE,HUM.REC.ANLOG 1,000 UNIT/10 ML VIAL (PYX) SUBCUT ONE (22:21)
[2019-05-06] MEDS: INSULIN GLARGINE,HUM.REC.ANLOG 1,000 UNIT/10 ML VIAL SUBCUT SCH (22:42)
[2019-05-07] MEDS: OXYCODONE-ACETAMINOPHEN 5-325 MG TABLET PO PRN ×3 (03:24→23:22)
[2019-05-07] MEDS: GABAPENTIN 300 MG CAPSULE PO SCH ×3 (06:19→23:22)
[2019-05-07] MEDS: INSULIN LISPRO 100 UNIT/ML 3 ML VIAL SUBCUT SCH ×4 (09:34→23:24)
[2019-05-07] MEDS: VALSARTAN 160 MG TABLET PO SCH (11:14)
[2019-05-07] MEDS: FUROSEMIDE 20 MG TABLET PO SCH ×2 (11:14→17:06)
[2019-05-07] MEDS: ASCORBIC ACID 500 MG TABLET PO SCH (11:14)
[2019-05-07] MEDS: FERROUS SULFATE 325 MG TABLET PO SCH (11:14)
[2019-05-07] MEDS: APIXABAN 2.5 MG TABLET PO SCH ×2 (11:15→17:06)
[2019-05-07] MEDS: AMLODIPINE BESYLATE 10 MG TABLET PO SCH (11:15)
[2019-05-07] MEDS: PANTOPRAZOLE SODIUM 40 MG VIAL IV SCH ×2 (11:15→23:23)
[2019-05-07] MEDS: CLOPIDOGREL BISULFATE 75 MG TABLET PO SCH (11:15)
[2019-05-07] MEDS: MULTIVITAMIN TABLET PO SCH (11:15)
[2019-05-07] MEDS: MUPIROCIN 2% OINTMENT 22 GM TP SCH ×2 (11:16→17:06)
--- NOTE | 2019-05-07 15:36 | PDOC PROGRESS REPORT ---
Subjective Progress Note for:: 05/07/19 Subjective:: Patient reported abdominal pain intensity has subsided but persist. No nausea or vomiting. No fever or chills. No chest pain or difficulty with breathing. Reason For Visit: ACUTE SYSTOLIC HEART FAILURE,H/O CHRONIC COMBINED Physical Exam Vital Signs: Temp Pulse Resp BP Pulse Ox 97.8 F 69 18 126/59 H 94 05/07/19 10:51 05/07/19 14:00 05/07/19 10:51 05/07/19 10:51 05/07/19 10:51 Intake & Output 05/06/19 05/07/19 05/08/19 06:59 06:59 06:59 Intake Total 1090 1280 275 Output Total 1850 2100 50 Balance -760 -820 225 Weight 87.7 kg 96 kg Physical Exam: Head exam: PRESENT: atraumatic, normocephalic Eye exam: PRESENT: conjunctiva pink. ABSENT: pallor, scleral icterus Ear exam: PRESENT: normal external ear exam Mouth exam: PRESENT: moist Teeth exam: PRESENT: poor dentition Respiratory exam: PRESENT: clear to auscultation jerrica, decreased breath sounds - at lung bases Cardiovascular exam: PRESENT: RRR. ABSENT: diastolic murmur, rubs, systolic murmur GI/Abdominal exam: PRESENT: normal bowel sounds, soft, nonspecific diffuse tenderness to palpation ABSENT: distended, guarding, mass, organomegaly, rebou nd Extremities exam: PRESENT: pedal edema - comparatively improved Neurological exam: PRESENT: alert, awake, oriented to person, oriented to place, oriented to time, oriented to situation, CN II-XII grossly intact. ABSENT: motor sensory deficit Psychiatric exam: PRESENT: appropriate affect, normal mood. ABSENT: homicidal ideation, suicidal ideation Skin exam: PRESENT: dry, warm, other - improving left calcaneal region diabetic ulcer. Results Laboratory Results: 05/02/19 04:52 05/01/19 11:39 04/30/19 04/30/19 04/30/19 07:46 09:13 17:15 Creatine Kinase CK-MB (CK-2) Troponin I Cancelled < 0.012 NT-Pro-B Natriuret Pep 5490 H 04/30/19 04/30/19 05/01/19 23:03 23:03 11:39 Creatine Kinase 33 34 CK-MB (CK-2) 0.53 Troponin I < 0.012 NT-Pro-B Natriuret Pep 05/01/19 11:39 Creatine Kinase CK-MB (CK-2) 0.36 Troponin I < 0.012 NT-Pro-B Natriuret Pep Impressions: Foot X-Ray 04/30/19 09:29 IMPRESSION: No evidence of osteomyelitis. Chest X-Ray 04/30/19 14:46 IMPRESSION: Interval placement of right subclavian vascular catheter, tip projecting over the right atrium. Otherwise stable AP portable examination with mild diffuse interstitial pulmonary opacity, likely edema, and gross cardiomegaly. Status post median sternotomy. Abdomen/Pelvis CT 05/05/19 00:00 IMPRESSION: 1. Similar appearance compared to prior study. 2. Cardiomegaly and mild pleural fluid, suggests mild congestive failure. 3. Mildly heterogeneous liver, transient. See above. This is nonspecific. 4. Heavy atherosclerosis. 5. Pelvic findings are nonprogressive including what may be a gas and fluid containing diverticulum in the left hemipelvis. 6. No acute findings are suggested otherwise. Assessment & Plan - Diagnosis (1) Upper abdominal pain Is this a current diagnosis for this admission?: Yes (2) Acute on chronic combined systolic and diastolic CHF, NYHA class 3 Is this a current diagnosis for this admission?: Yes (3) Decubitus ulcer of left heel, stage 4 Is this a current diagnosis for this admission?: Yes (4) Diabetes mellitus type 2 in obese Is this a current diagnosis for this admission?: Yes (5) Hypertension Qualifiers: Hypertension type: essential hypertension Qualified Code(s): I10 - Essential (primary) hypertension Is this a current diagnosis for this admission?: Yes (6) CAD (coronary artery disease) Qualifiers: Coronary Disease-Associated Artery/Lesion type: unspecified vessel or lesion type [place] vs. transplanted heart: [place] heart Associated angina: without angina Qualified Code(s): I25.10 - Atherosclerotic heart disease of [place] coronary artery without angina pectoris Is this a current diagnosis for this admission?: Yes (7) Hyperlipidemia Qualifiers: Hyperlipidemia type: unspecified Qualified Code(s): E78.5 - Hyperlipidemia, unspecified Is this a current diagnosis for this admission?: Yes (8) S/P CABG (coronary artery bypass graft) Is this a current diagnosis for this admission?: Yes (9) Chronic use of opiate for therapeutic purpose Is this a current diagnosis for this admission?: Yes - Time Time Spent with patient: 35 or more minutes Level of Care: IMCU Medications reviewed and adjusted accordingly: Yes Anticipated discharge: Home with Homehealth Within: Other - Inpatient Certification Based on my medical assessment, after consideration of the patient's comorbidities, presenting symptoms, or acuity I expect that the services needed warrant INPATIENT care.: Yes I certify that my determination is in accordance with my understanding of Medicare's requirements for reasonable and necessary INPATIENT services [42 CFR 412.3e].: Yes Medical Necessity: Significant Comorbidiites Make Outpatient Treatment Too Risky, Need Close Monitoring Due to Risk of Patient Decompensation, Need For Continuous Telemetry Monitoring, Risk of Complication if Not Cared For in Hospital, Risk of Diagnosis Which Will Require Inpatient Eval/Care/Monitoring Post Hospital Care: D/C Security Associate 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 Follow up on GI consultation request. Obtain CBC with diff and CMP in AM.
[2019-05-07] MEDS ORDERED: INSULIN GLARGINE,HUM.REC.ANLOG 1,000 UNIT/10 ML VIAL (PYX) SUBCUT ONE (23:21)
[2019-05-07] MEDS: ATORVASTATIN CALCIUM 20 MG TABLET PO SCH (23:22)
[2019-05-07] MEDS: INSULIN GLARGINE,HUM.REC.ANLOG 1,000 UNIT/10 ML VIAL SUBCUT SCH (23:23)
[2019-05-08] MEDS: GABAPENTIN 300 MG CAPSULE PO SCH ×3 (05:09→21:42)
[2019-05-08 05:39] LABS: ABSOLUTE EOSINOPHILS # (AUTO) 0.1 10^3/uL (0.0-0.6); ABSOLUTE LYMPHOCYTES (AUTO) 1.9 10^3/uL (0.5-4.7); ABSOLUTE MONOCYTES (AUTO) 0.9 10^3/uL (0.1-1.4); ABSOLUTE NEUT (AUTO) 5.2 10^3/uL (1.7-8.2); BASOPHILS % (AUTO) 0.5 % (0-2); EOSINOPHILS % (AUTO) 1.8 % (0-6); HEMATOCRIT 25.4 % (36.0-47.0); HEMOGLOBIN 8.4 g/dL (12.0-15.5); MEAN CORPUSCULAR HEMOGLOBIN 30.8 pg (27.0-33.4); MEAN CORPUSCULAR VOLUME 93 fl (80-97); MONOCYTES % (AUTO) 11.4 % (3-13); PLATELET COUNT 216 10^3/uL (150-450); RED BLOOD COUNT 2.72 10^6/uL (3.72-5.28); RED CELL DISTRIBUTION WIDTH 16.9 % (11.5-14.0); SEGMENTED NEUTROPHILS % (AUTO) 63.3 % (42-78); TOTAL CELLS COUNTED % (AUTO) 100 %; WHITE BLOOD COUNT 8.2 10^3/uL (4.0-10.5)
[2019-05-08 05:57] LABS: ALBUMIN 3.4 g/dL (3.5-5.0); ALKALINE PHOSPHATASE 276 U/L (38-126); ANION GAP 9 (5-19); ASPARTATE AMINO TRANSFERASE 34 U/L (14-36); BILIRUBIN,DIRECT 0.3 mg/dL (0.0-0.4); BILIRUBIN,TOTAL 0.7 mg/dL (0.2-1.3); BLOOD UREA NITROGEN 44 mg/dL (7-20); CALCIUM 8.9 mg/dL (8.4-10.2); CARBON DIOXIDE 27 mmol/L (22-30); CHLORIDE 106 mmol/L (98-107); TOTAL PROTEIN 7.9 g/dL (6.3-8.2)
[2019-05-08 06:21] LABS: GLUCOSE 55 mg/dL (75-110)
[2019-05-08] MEDS ORDERED: SODIUM POLYSTYRENE SULFONATE 15 GM/60 ML PO ONE (07:30)
[2019-05-08] MEDS: INSULIN LISPRO 100 UNIT/ML 3 ML VIAL SUBCUT SCH ×4 (08:54→21:43)
[2019-05-08] MEDS: ASCORBIC ACID 500 MG TABLET PO SCH (09:46)
[2019-05-08] MEDS: FERROUS SULFATE 325 MG TABLET PO SCH (09:47)
[2019-05-08] MEDS: MUPIROCIN 2% OINTMENT 22 GM TP SCH ×2 (09:47→19:05)
[2019-05-08] MEDS: CLOPIDOGREL BISULFATE 75 MG TABLET PO SCH (09:47)
[2019-05-08] MEDS: FUROSEMIDE 40 MG TABLET PO SCH ×2 (09:47→17:51)
[2019-05-08] MEDS: AMLODIPINE BESYLATE 10 MG TABLET PO SCH (09:47)
[2019-05-08] MEDS: PANTOPRAZOLE SODIUM 40 MG VIAL IV SCH (09:47)
[2019-05-08] MEDS: APIXABAN 2.5 MG TABLET PO SCH ×2 (09:47→17:50)
[2019-05-08] MEDS: VALSARTAN 160 MG TABLET PO SCH (09:47)
[2019-05-08] MEDS: MULTIVITAMIN TABLET PO SCH (09:47)
[2019-05-08] MEDS: NORMAL SALINE 1000 ML 1,000 ML IV PRN ×2 (09:48→21:41)
[2019-05-08] MEDS ORDERED: MIDAZOLAM 2 MG/2 ML INJ ONE (16:38)
[2019-05-08] MEDS ORDERED: FENTANYL CITRATE INJ/PF 100 MCG/2 ML AMPUL ONE (16:38)
[2019-05-08] MEDS ORDERED: NALOXONE HCL INJ/PF 0.4 MG/1 ML SDV ONE (16:38)
[2019-05-08] MEDS ORDERED: DIPHENHYDRAMINE HCL 50 MG/ML VIAL ONE (16:38)
[2019-05-08] MEDS ORDERED: EPINEPHRINE INJ 1 MG/10 ML DISP.SYRIN ONE (16:38)
[2019-05-08] MEDS ORDERED: GLUCAGON,HUMAN RECOMB 1 MG INJ ONE (16:38)
[2019-05-08] MEDS ORDERED: ONDANSETRON HCL INJ/PF 4 MG/2 ML SDV ONE (16:38)
[2019-05-08] MEDS ORDERED: FLUMAZENIL INJ 0.5 MG/5 ML VIAL ONE (16:38)
--- NOTE | 2019-05-08 19:40 | PDOC CONSULTATION ---
Consultation Consult Date: 05/07/19 Provider Consulted: GEORGIANA NAVARRO History of Present Illness Admission Date/PCP: 04/30/19 11:55 STEPHAN TAFOYA History of Present Illness: JAVIER BURGER is a 63 year old female Who was admitted to the emergency room on 04/30/2019 with chest pain, abdominal pain and CHF. Consultation was requested for chronic abdominal pain. Patient has had pain off and on for years but more so in the last few months. She has had a constant lower abdominal pain at least for the last 2 months. The pain does not change with food or bowel movement. Her bowels were moving every day prior to being admitted. On admission her LFTs were normal except for an alkaline phosphatase of 295, her hemoglobin was 9.5. She had a CT of the abdomen on 05/05/2019 that showed no significant acute findings. She has heavy atherosclerosis. I saw her in the hospital in November when she was admitted with abdominal pain and rectal bleeding that was suggestive of ischemic colitis. Her CAT scan was not diagnostic of ischemia. She did have symptoms and CT evidence for ischemic colitis a few years ago. Her last colonoscopy was in 2017 and this showed diverticulosis and hemorrhoids. She has not had a recent EGD. She has chronic anemia and her admission hemoglobin was 9.5. Her creatinine was 0.74 on admission but this has gone up to 2.9 today with a potassium of 6. She has received Kayexalate earlier on today Past Medical History Cardiac Medical History: Reports: Congestive Heart Failure, Coronary Artery Disease, Myocardial Infarction, Hyperlipidema, Hypertension, Peripheral Vascular Disease Denies: Atrial Fibrillation Pulmonary Medical History: Reports: Bronchitis Denies: Asthma, Chronic Obstructive Pulmonary Disease (COPD), Pneumonia, Tuberculosis Neurological Medical History: Denies: Seizures Endocrine Medical History: Reports: Diabetes Mellitus Type 1, Diabetes Mellitus Type 2 Renal/ Medical History: Denies: End Stage Renal Disease Malignancy Medical History: GI Medical History: Reports: Diverticulitis - diverticulosis Denies: Gastroesophageal Reflux Disease, Hiatal Hernia Musculoskeltal Medical History: Denies: Arthritis Psychiatric Medical History: Denies: Bipolar Disorder, Depression Hematology: Denies: Anemia, Hemophilia, Sickle Cell Disease Infectious Medical History: Past Surgical History Past Surgical History: Reports: Coronary Artery Bypass Graft - July 31 2011, Tonsillectomy, Vascular Surgery Denies: Amputation, Appendectomy, Cardiac Catheterization, Section, Cholecystectomy, Hysterectomy, Mastectomy, Tubal Ligation Social History Smoking Status: Former Smoker Frequency of Alcohol Use: None Hx Recreational Drug Use: No Drugs: None Hx Prescription Drug Abuse: No - Advance Directive Resuscitation Status: Full Code Family History Family History: CAD, Hyperlipidemia, Hypertension Parental Family History Reviewed: No Children Family History Reviewed: NA Sibling(s) Family History Reviewed.: NA Medication/Allergy Home Medications: Amlodipine Besylate [Norvasc 10 mg Tablet] 10 mg PO DAILY 02/14/19 Apixaban [Eliquis 2.5 mg Tablet] 2.5 mg PO BID 02/14/19 Ascorbic Acid [Vitamin C 500 mg Tablet] 500 mg PO DAILY 02/14/19 Atorvastatin Calcium [Lipitor 20 mg Tablet] 20 mg PO QHS 02/14/19 Docusate Sodium [Colace 100 mg Capsule] 100 mg PO BIDP PRN 02/14/19 Ferrous Sulfate [Feosol 325 mg Tablet] 325 mg PO DAILY 02/14/19 Furosemide [Lasix 20 mg Tablet] 40 mg PO BID 02/14/19 Nitroglycerin [Nitrostat 0.4 mg (1/150 Gr) Tabs 25/Bottle] 0.4 mg SL Q5MP PRN 02/14/19 Oxycodone HCl/Acetaminophen [Percocet 7.5-325 mg Tablet] 1 tab PO Q6HP PRN 02/14/19 Valsartan [Diovan 160 mg Tablet] 160 mg PO DAILY 02/14/19 Clopidogrel Bisulfate [Plavix 75 mg Tablet] 75 mg PO DAILY 03/23/19 Gabapentin [Neurontin 300 mg Capsule] 300 mg PO Q8 03/23/19 Insulin Aspart [Novolog Flexpen] 0 unit SQ .SLIDING SCALE 03/23/19 Insulin Degludec [Tresiba Flextouch U-100] 40 unit SQ DAILY 03/23/19 Multivit,Tx with Iron,Minerals [Thera-M] 1 each PO DAILY 03/23/19 Mupirocin [Bactroban 2% Ointment 22 gm] 1 applic TP BID 5 Days #1 tube 03/30/19 Allergies/Adverse Reactions: duloxetine Allergy (Verified 04/04/19 22:37) pregabalin [From Lyrica] Allergy (Verified 04/04/19 22:37) Swelling of hands and face Review of Systems All systems: reviewed and no additional remarkable complaints except as stated Physical Exam Vital Signs: Temp Pulse Resp BP Pulse Ox 98.1 F 81 18 151/84 H 95 05/08/19 15:57 05/08/19 19:25 05/08/19 19:25 05/08/19 19:25 05/08/19 19:25 Intake & Output 05/07/19 05/08/19 05/09/19 06:59 06:59 06:59 Intake Total 1280 555 360 Output Total 2100 300 1200 Balance -820 255 -840 Weight 96 kg 89.5 kg Exam: General: Patient is alert and obese. HEENT: There is some pallor but no jaundice. PERRLA. Oropharynx normal Respiratory: No chest deformity. No respiratory distress. Chest wall palpitation was unremarkable. Breath sounds were normal Cardiovascular: Heart sounds 1 and 2 normal with no murmurs. Abdominal: Not distended. Soft and nontender. Liver and spleen not palpable. No ascites demonstrated. Bowel sounds active. Rectal examination was deferred. Extremities: No edema Neurological: Alert and oriented x4. Grossly nonfocal. Normal speech Skin: No significant rash Psychological: Normal affect Results Laboratory Results: 05/08/19 05:15 05/08/19 05:15 05/08/19 05/08/19 05:15 05:15 WBC 8.2 RBC 2.72 L Hgb 8.4 L Hct 25.4 L MCV 93 MCH 30.8 MCHC 33.0 RDW 16.9 H Plt Count 216 Seg Neutrophils % 63.3 Sodium 141.6 Potassium 6.0 H* Chloride 106 Carbon Dioxide 27 Anion Gap 9 BUN 44 H Creatinine 2.92 H Est GFR ( Amer) 20 L Glucose 55 L Calcium 8.9 Total Bilirubin 0.7 AST 34 Alkaline Phosphatase 276 H Total Protein 7.9 Albumin 3.4 L 04/30/19 04/30/19 04/30/19 07:46 09:13 17:15 Creatine Kinase CK-MB (CK-2) Troponin I Cancelled < 0.012 NT-Pro-B Natriuret Pep 5490 H 04/30/19 04/30/19 05/01/19 23:03 23:03 11:39 Creatine Kinase 33 34 CK-MB (CK-2) 0.53 Troponin I < 0.012 NT-Pro-B Natriuret Pep 05/01/19 11:39 Creatine Kinase CK-MB (CK-2) 0.36 Troponin I < 0.012 NT-Pro-B Natriuret Pep Impressions: Foot X-Ray 04/30/19 09:29 IMPRESSION: No evidence of osteomyelitis. Chest X-Ray 04/30/19 14:46 IMPRESSION: Interval placement of right subclavian vascular catheter, tip projecting over the right atrium. Otherwise stable AP portable examination with mild diffuse interstitial pulmonary opacity, likely edema, and gross cardiomegaly. Status post median sternotomy. Abdomen/Pelvis CT 05/05/19 00:00 IMPRESSION: 1. Similar appearance compared to prior study. 2. Cardiomegaly and mild pleural fluid, suggests mild congestive failure. 3. Mildly heterogeneous liver, transient. See above. This is nonspecific. 4. Heavy atherosclerosis. 5. Pelvic findings are nonprogressive including what may be a gas and fluid containing diverticulum in the left hemipelvis. 6. No acute findings are suggested otherwise. Assessment & Plan - Diagnosis (1) Abdominal pain, chronic, bilateral lower quadrant Is this a current diagnosis for this admission?: Yes Plan: She has chronic abdominal pain that has been more or less constant for the last 2 months. I suspect this is functional pain. She does have significant abdominal atherosclerosis but no evidence of ischemic colitis at this time. She will undergo an EGD in-house and I will do a colonoscopy as outpatient. I will suggest a low-dose antidepressant to help treat her chronic abdominal pain. We should avoid narcotics for this pain if possible. (2) Atherosclerosis of aorta Is this a current diagnosis for this admission?: Yes (3) PVD (peripheral vascular disease) Is this a current diagnosis for this admission?: Yes (4) CAD (coronary artery disease) Qualifiers: Coronary Disease-Associated Artery/Lesion type: unspecified vessel or lesion type [place] vs. transplanted heart: [place] heart Associated angina: without angina Qualified Code(s): I25.10 - Atherosclerotic heart disease of [place] coronary artery without angina pectoris Is this a current diagnosis for this admission?: Yes
--- NOTE | 2019-05-08 19:41 | Operative Report ---
Operative Report DATE OF SURGERY: 05/08/19 Operative Report: Pre-op diagnosis: Abdominal pain Post-op diagnosis: Antral gastritis Surgery: Esophagogastroduodenoscopy with biopsy Medications: Versed 2mg Fentanyl 50 Mcg IV push Tissue removed: Antral biopsy for pathology Procedure: After informed consent obtained from patient, the throat was sprayed with [place] and conscious sedation was achieved. The upper endoscope was inserted into the esophagus under direct vision and advanced into the stomach. The duodenum was entered and examined to the second part. Endoscope was then slowly pulled out of the patient as the mucosa was examined into details. Patient tolerated procedure well. Findings Esophagus: Normal Z-line at: 38 cm Antrum: Mild erythema Body: Normal Fundus: Normal Duodenum first part: Normal Duodenum second part: Normal Plan: Await pathology. Continue PPI and schedule colonoscopy as outpatient OPERATION: .
--- NOTE | 2019-05-08 19:43 | PDOC PROGRESS REPORT ---
Subjective Progress Note for:: 05/08/19 Subjective:: Patient is schedule for EGD evaluation today. She reported abdominal pain as intermittent. No nausea or vomiting. No fever or chills. No chest pain or difficulty with breathing. Reason For Visit: ACUTE SYSTOLIC HEART FAILURE,H/O CHRONIC COMBINED Physical Exam Vital Signs: Temp Pulse Resp BP Pulse Ox 98.1 F 69 18 149/97 H 93 05/08/19 15:57 05/08/19 15:57 05/08/19 15:57 05/08/19 15:57 05/08/19 15:57 Intake & Output 05/07/19 05/08/19 05/09/19 06:59 06:59 06:59 Intake Total 1280 555 360 Output Total 2100 300 700 Balance -820 255 -340 Weight 96 kg 89.5 kg Physical Exam: Head exam: PRESENT: atraumatic, normocephalic Eye exam: PRESENT: conjunctiva pink. ABSENT: pallor, scleral icterus Ear exam: PRESENT: normal external ear exam Mouth exam: PRESENT: moist Teeth exam: PRESENT: poor dentition Respiratory exam: PRESENT: clear to auscultation jerrica, decreased breath sounds - at lung bases Cardiovascular exam: PRESENT: RRR. ABSENT: diastolic murmur, rubs, systolic murmur GI/Abdominal exam: PRESENT: normal bowel sounds, soft, nonspecific tenderness to palpation over epigastric and lower quadrants regions ABSENT: distended, guarding, mass, organomegaly, rebound Extremities exam: PRESENT: pedal edema - comparatively improved Neurological exam: PRESENT: alert, awake, oriented to person, oriented to place, oriented to time, oriented to situation, CN II-XII grossly intact. ABSENT: motor sensory deficit Psychiatric exam: PRESENT: appropriate affect, normal mood. ABSENT: homicidal ideation, suicidal ideation Skin exam: PRESENT: dry, warm, other - improving left calcaneal region diabetic ulcer. Results Laboratory Results: 05/08/19 05:15 05/08/19 05:15 05/08/19 05/08/19 05:15 05:15 WBC 8.2 RBC 2.72 L Hgb 8.4 L Hct 25.4 L MCV 93 MCH 30.8 MCHC 33.0 RDW 16.9 H Plt Count 216 Seg Neutrophils % 63.3 Sodium 141.6 Potassium 6.0 H* Chloride 106 Carbon Dioxide 27 Anion Gap 9 BUN 44 H Creatinine 2.92 H Est GFR ( Amer) 20 L Glucose 55 L Calcium 8.9 Total Bilirubin 0.7 AST 34 Alkaline Phosphatase 276 H Total Protein 7.9 Albumin 3.4 L 04/30/19 04/30/19 04/30/19 07:46 09:13 17:15 Creatine Kinase CK-MB (CK-2) Troponin I Cancelled < 0.012 NT-Pro-B Natriuret Pep 5490 H 04/30/19 04/30/19 05/01/19 23:03 23:03 11:39 Creatine Kinase 33 34 CK-MB (CK-2) 0.53 Troponin I < 0.012 NT-Pro-B Natriuret Pep 05/01/19 11:39 Creatine Kinase CK-MB (CK-2) 0.36 Troponin I < 0.012 NT-Pro-B Natriuret Pep Impressions: Foot X-Ray 04/30/19 09:29 IMPRESSION: No evidence of osteomyelitis. Chest X-Ray 04/30/19 14:46 IMPRESSION: Interval placement of right subclavian vascular catheter, tip projecting over the right atrium. Otherwise stable AP portable examination with mild diffuse interstitial pulmonary opacity, likely edema, and gross cardiomegaly. Status post median sternotomy. Abdomen/Pelvis CT 05/05/19 00:00 IMPRESSION: 1. Similar appearance compared to prior study. 2. Cardiomegaly and mild pleural fluid, suggests mild congestive failure. 3. Mildly heterogeneous liver, transient. See above. This is nonspecific. 4. Heavy atherosclerosis. 5. Pelvic findings are nonprogressive including what may be a gas and fluid containing diverticulum in the left hemipelvis. 6. No acute findings are suggested otherwise. Assessment & Plan - Diagnosis (1) Upper abdominal pain Is this a current diagnosis for this admission?: Yes (2) Acute on chronic combined systolic and diastolic CHF, NYHA class 3 Is this a current diagnosis for this admission?: Yes (3) Decubitus ulcer of left heel, stage 4 Is this a current diagnosis for this admission?: Yes (4) Diabetes mellitus type 2 in obese Is this a current diagnosis for this admission?: Yes (5) Hypertension Qualifiers: Hypertension type: essential hypertension Qualified Code(s): I10 - Essential (primary) hypertension Is this a current diagnosis for this admission?: Yes (6) CAD (coronary artery disease) Qualifiers: Coronary Disease-Associated Artery/Lesion type: unspecified vessel or lesion type [place] vs. transplanted heart: [place] heart Associated angina: without angina Qualified Code(s): I25.10 - Atherosclerotic heart disease of [place] coronary artery without angina pectoris Is this a current diagnosis for this admission?: Yes (7) Hyperlipidemia Qualifiers: Hyperlipidemia type: unspecified Qualified Code(s): E78.5 - Hyperlipidemia, unspecified Is this a current diagnosis for this admission?: Yes (8) S/P CABG (coronary artery bypass graft) Is this a current diagnosis for this admission?: Yes (9) Chronic use of opiate for therapeutic purpose Is this a current diagnosis for this admission?: Yes (10) Hyperkalemia Is this a current diagnosis for this admission?: Yes Plan: Treated with Kayexalate 15 gm p.o x 1 dose. Repeat BMP to evaluate effectiveness. - Time Time Spent with patient: 35 or more minutes Level of Care: IMCU Medications reviewed and adjusted accordingly: Yes Anticipated discharge: Home with Homehealth Within: Other - Inpatient Certification Based on my medical assessment, after consideration of the patient's comorbidities, presenting symptoms, or acuity I expect that the services needed warrant INPATIENT care.: Yes I certify that my determination is in accordance with my understanding of Medicare's requirements for reasonable and necessary INPATIENT services [42 CFR 412.3e].: Yes Medical Necessity: Significant Comorbidiites Make Outpatient Treatment Too Risky, Need Close Monitoring Due to Risk of Patient Decompensation, Need For Continuous Telemetry Monitoring, Risk of Complication if Not Cared For in Hospital, Risk of Diagnosis Which Will Require Inpatient Eval/Care/Monitoring Post Hospital Care: D/C Ed Teacher Documentation - Plan Summary Plan Summary: Transition IV Pantoprazole to 40 mg p.o daily fasting. Start on Lexapro 10 mg p.o daily. Continue on all other current medication management. Follow up on EGD findings.
[2019-05-08] MEDS: OXYCODONE-ACETAMINOPHEN 5-325 MG TABLET PO PRN (21:41)
[2019-05-08] MEDS: ATORVASTATIN CALCIUM 20 MG TABLET PO SCH (21:42)
[2019-05-08] MEDS: INSULIN GLARGINE,HUM.REC.ANLOG 1,000 UNIT/10 ML VIAL SUBCUT SCH (21:43)
[2019-05-08 22:49] LABS: ANION GAP 9 (5-19); BLOOD UREA NITROGEN 44 mg/dL (7-20); CALCIUM 8.8 mg/dL (8.4-10.2); CARBON DIOXIDE 25 mmol/L (22-30); CHLORIDE 106 mmol/L (98-107); GLUCOSE 125 mg/dL (75-110)
[2019-05-09] MEDS: OXYCODONE-ACETAMINOPHEN 5-325 MG TABLET PO PRN ×3 (03:56→22:59)
[2019-05-09] MEDS: GABAPENTIN 300 MG CAPSULE PO SCH ×3 (05:42→21:45)
[2019-05-09] MEDS: PANTOPRAZOLE SODIUM 40 MG TABLET.DR PO SCH (05:42)
[2019-05-09] MEDS: INSULIN LISPRO 100 UNIT/ML 3 ML VIAL SUBCUT SCH ×4 (08:54→21:45)
[2019-05-09] MEDS: VALSARTAN 160 MG TABLET PO SCH (11:07)
[2019-05-09] MEDS: FUROSEMIDE 40 MG TABLET PO SCH ×2 (11:07→18:39)
[2019-05-09] MEDS: APIXABAN 2.5 MG TABLET PO SCH ×2 (11:07→18:39)
[2019-05-09] MEDS: MULTIVITAMIN TABLET PO SCH (11:07)
[2019-05-09] MEDS: ESCITALOPRAM OXALATE 10 MG TABLET PO SCH (11:08)
[2019-05-09] MEDS: CLOPIDOGREL BISULFATE 75 MG TABLET PO SCH (11:08)
[2019-05-09] MEDS: AMLODIPINE BESYLATE 10 MG TABLET PO SCH (11:08)
[2019-05-09] MEDS: FERROUS SULFATE 325 MG TABLET PO SCH (11:08)
[2019-05-09] MEDS: ASCORBIC ACID 500 MG TABLET PO SCH (11:08)
[2019-05-09] MEDS: MUPIROCIN 2% OINTMENT 22 GM TP SCH ×2 (11:08→18:41)
--- NOTE | 2019-05-09 12:56 | PDOC PROGRESS REPORT ---
Subjective Progress Note for:: 05/09/19 Subjective:: Patient reported nose bleed this morning. She remain on triple antiplatelet therapy. She continue to report intermittent abdominal pain. No nausea or vomiting. No fever or chills. No chest pain or difficulty with breathing. Reason For Visit: ACUTE SYSTOLIC HEART FAILURE,H/O CHRONIC COMBINED Physical Exam Vital Signs: Temp Pulse Resp BP Pulse Ox 98.5 F 66 16 127/57 H 93 05/09/19 04:27 05/09/19 07:00 05/09/19 04:27 05/09/19 04:27 05/09/19 04:27 Intake & Output 05/08/19 05/09/19 05/10/19 06:59 06:59 06:59 Intake Total 555 1860 Output Total 300 2875 Balance 255 -1015 Weight 89.5 kg 89.5 kg Physical Exam: Head exam: PRESENT: atraumatic, normocephalic Eye exam: PRESENT: conjunctiva pink. ABSENT: pallor, scleral icterus Ear exam: PRESENT: normal external ear exam Mouth exam: PRESENT: moist Nose exam: Turbinate swelling with minimal fresh blood product in anterior nares. Teeth exam: PRESENT: poor dentition Respiratory exam: PRESENT: clear to auscultation jerrica, decreased breath sounds - at lung bases Cardiovascular exam: PRESENT: RRR. ABSENT: diastolic murmur, rubs, systolic murmur GI/Abdominal exam: PRESENT: normal bowel sounds, soft, nonspecific tenderness to palpation over epigastrium and lower quadrants regions ABSENT: distended, guarding, mass, organomegaly, rebound Extremities exam: PRESENT: pedal edema - comparatively improved Neurological exam: PRESENT: alert, awake, oriented to person, oriented to place, oriented to time, oriented to situation, CN II-XII grossly intact. ABSENT: motor sensory deficit Psychiatric exam: PRESENT: appropriate affect, normal mood. ABSENT: homicidal ideation, suicidal ideation Skin exam: PRESENT: dry, warm, other - improving left calcaneal region diabetic ulcer. Results Laboratory Results: 05/08/19 05:15 05/08/19 21:52 05/08/19 21:52 Sodium 140.3 Potassium 5.0 D Chloride 106 Carbon Dioxide 25 Anion Gap 9 BUN 44 H Creatinine 2.20 H Est GFR ( Amer) 27 L Glucose 125 H Calcium 8.8 04/30/19 04/30/1919 07:46 09:13 17:15 Creatine Kinase CK-MB (CK-2) Troponin I Cancelled < 0.012 NT-Pro-B Natriuret Pep 5490 H 04/30/19 04/30/19 05/01/19 23:03 23:03 11:39 Creatine Kinase 33 34 CK-MB (CK-2) 0.53 Troponin I < 0.012 NT-Pro-B Natriuret Pep 05/01/19 11:39 Creatine Kinase CK-MB (CK-2) 0.36 Troponin I < 0.012 NT-Pro-B Natriuret Pep Impressions: Foot X-Ray 04/30/19 09:29 IMPRESSION: No evidence of osteomyelitis. Chest X-Ray 04/30/19 14:46 IMPRESSION: Interval placement of right subclavian vascular catheter, tip projecting over the right atrium. Otherwise stable AP portable examination with mild diffuse interstitial pulmonary opacity, likely edema, and gross cardiomegaly. Status post median sternotomy. Abdomen/Pelvis CT 05/05/19 00:00 IMPRESSION: 1. Similar appearance compared to prior study. 2. Cardiomegaly and mild pleural fluid, suggests mild congestive failure. 3. Mildly heterogeneous liver, transient. See above. This is nonspecific. 4. Heavy atherosclerosis. 5. Pelvic findings are nonprogressive including what may be a gas and fluid containing diverticulum in the left hemipelvis. 6. No acute findings are suggested otherwise. Assessment & Plan - Diagnosis (1) Upper abdominal pain Is this a current diagnosis for this admission?: Yes (2) Acute on chronic combined systolic and diastolic CHF, NYHA class 3 Is this a current diagnosis for this admission?: Yes (3) Decubitus ulcer of left heel, stage 4 Is this a current diagnosis for this admission?: Yes (4) Diabetes mellitus type 2 in obese Is this a current diagnosis for this admission?: Yes (5) Hypertension Qualifiers: Hypertension type: essential hypertension Qualified Code(s): I10 - Essential (primary) hypertension Is this a current diagnosis for this admission?: Yes (6) CAD (coronary artery disease) Qualifiers: Coronary Disease-Associated Artery/Lesion type: unspecified vessel or lesion type [place] vs. transplanted heart: [place] heart Associated angina: without angina Qualified Code(s): I25.10 - Atherosclerotic heart disease of [place] coronary artery without angina pectoris Is this a current diagnosis for this admission?: Yes (7) Hyperlipidemia Qualifiers: Hyperlipidemia type: unspecified Qualified Code(s): E78.5 - Hyperlipidemia, unspecified Is this a current diagnosis for this admission?: Yes (8) S/P CABG (coronary artery bypass graft) Is this a current diagnosis for this admission?: Yes (9) Chronic use of opiate for therapeutic purpose Is this a current diagnosis for this admission?: Yes (10) Hyperkalemia Is this a current diagnosis for this admission?: Yes (11) Antral gastritis Is this a current diagnosis for this admission?: Yes Plan: Continue PPI therapy. (12) Nasal bleeding Is this a current diagnosis for this admission?: Yes Plan: Continue to monitor. Start on nasal saline spray therapy. Obtain cardiology consult with Dr. Mayer to evaluate continue need for triple antiplatelet therapy in view of her significant cardiovascular disease and ongoing nasal bleeding.. - Time Time Spent with patient: 35 or more minutes Level of Care: IMCU Medications reviewed and adjusted accordingly: Yes Anticipated discharge: Home with Homehealth Within: Other - Inpatient Certification Based on my medical assessment, after consideration of the patient's comorbidit ies, presenting symptoms, or acuity I expect that the services needed warrant INPATIENT care.: Yes I certify that my determination is in accordance with my understanding of [place]'s requirements for reasonable and necessary INPATIENT services [42 CFR 412.3e].: Yes Medical Necessity: Significant Comorbidiites Make Outpatient Treatment Too Risky, Need Close Monitoring Due to Risk of Patient Decompensation, Need For IV Fluids, Need For Continuous Telemetry Monitoring, Need for Pain Control, Need for IV Antibiotics, Risk of Complication if Not Cared For in Hospital, Risk of Diagnosis Which Will Require Inpatient Eval/Care/Monitoring Post Hospital Care: D/C [facility] Documentation - Plan Summary Plan Summary: See attending physician orders for details about care plan. Her discharge today is postponed.
[2019-05-09] MEDS: SODIUM CHLORIDE NASAL SPRAY 44 ML NASL SCH ×3 (13:46→21:47)
--- NOTE | 2019-05-09 19:42 | EKG REPORT ---
SEVERITY:- ABNORMAL ECG - SINUS RHYTHM BORDERLINE LEFT AXIS DEVIATION NONSPECIFIC T ABNORMALITIES, LATERAL LEADS : Confirmed by: Yobany Marino MD 09-May-2019 19:42:06
[2019-05-09] MEDS: NORMAL SALINE 1000 ML 1,000 ML IV PRN (19:49)
[2019-05-09] MEDS: MAG HYDROX/AL HYDROX/SIMETH SUSP 30 ML UDCUP PO PRN (20:27)
[2019-05-09 21:18] LABS: CREATINE KINASE MB 0.93 ng/mL (<4.55); TROPONIN I 0.012 ng/mL
[2019-05-09] MEDS ORDERED: INSULIN GLARGINE,HUM.REC.ANLOG 1,000 UNIT/10 ML VIAL (PYX) SUBCUT ONE (21:36)
[2019-05-09] MEDS: ATORVASTATIN CALCIUM 20 MG TABLET PO SCH (21:45)
[2019-05-09] MEDS: INSULIN GLARGINE,HUM.REC.ANLOG 1,000 UNIT/10 ML VIAL SUBCUT SCH (21:46)
[2019-05-10] MEDS: SUCRALFATE 1 GM TABLET PO SCH ×4 (00:59→18:28)
[2019-05-10] MEDS ORDERED: OXYMETAZOLINE HCL 0.05% NASAL SPRAY 15 ML BOTTLE ONE (01:27)
[2019-05-10] MEDS: OXYMETAZOLINE HCL 0.05% NASAL SPRAY 15 ML BOTTLE NASL PRN (01:33)
[2019-05-10 03:54] LABS: TROPONIN I < 0.012 ng/mL
[2019-05-10] MEDS: PANTOPRAZOLE SODIUM 40 MG TABLET.DR PO SCH (05:13)
[2019-05-10] MEDS: GABAPENTIN 300 MG CAPSULE PO SCH ×3 (05:13→21:50)
--- NOTE | 2019-05-10 08:23 | EKG REPORT ---
SEVERITY:- ABNORMAL ECG - SINUS RHYTHM CONSIDER LEFT VENTRICULAR HYPERTROPHY : Confirmed by: Yobany Marino MD 10-May-2019 08:22:36
[2019-05-10] MEDS: INSULIN LISPRO 100 UNIT/ML 3 ML VIAL SUBCUT SCH ×4 (09:01→21:50)
[2019-05-10] MEDS: SODIUM CHLORIDE NASAL SPRAY 44 ML NASL SCH ×2 (09:02→14:15)
[2019-05-10] MEDS: MUPIROCIN 2% OINTMENT 22 GM TP SCH ×2 (09:02→18:29)
[2019-05-10] MEDS: APIXABAN 2.5 MG TABLET PO SCH ×2 (09:03→18:28)
[2019-05-10] MEDS: MULTIVITAMIN TABLET PO SCH (09:03)
[2019-05-10] MEDS: ASCORBIC ACID 500 MG TABLET PO SCH (09:03)
[2019-05-10] MEDS: FERROUS SULFATE 325 MG TABLET PO SCH (09:03)
[2019-05-10] MEDS: CLOPIDOGREL BISULFATE 75 MG TABLET PO SCH (09:03)
[2019-05-10] MEDS: VALSARTAN 160 MG TABLET PO SCH (09:04)
[2019-05-10] MEDS: AMLODIPINE BESYLATE 10 MG TABLET PO SCH (09:04)
[2019-05-10] MEDS: FUROSEMIDE 40 MG TABLET PO SCH ×2 (09:04→18:28)
[2019-05-10] MEDS: ESCITALOPRAM OXALATE 10 MG TABLET PO SCH (09:11)
[2019-05-10 09:47] LABS: CREATINE KINASE MB 0.73 ng/mL (<4.55); TROPONIN I 0.013 ng/mL
--- NOTE | 2019-05-10 11:13 | PDOC PROGRESS REPORT ---
Subjective Progress Note for:: 05/10/19 Subjective:: Patient is currently doing fair Patient was complaining of chest pain short of breath last night currently denied any complaints Patient EKG and cardiac enzyme was all stable seen by the Dr. Harding last night Patient having no more nosebleed Patient was giving the Carafate and according to the patient's which helps the patient all the symptoms Patient have endoscopy was done by Dr. Sosa so the antral gastritis Patient also with significant combined systolic and diastolic heart failure multiple coronary disease in the triple anticoagulations Reason For Visit: ACUTE SYSTOLIC HEART FAILURE,H/O CHRONIC COMBINED Physical Exam Vital Signs: Temp Pulse Resp BP Pulse Ox 97.5 F 65 17 139/70 H 98 05/10/19 07:22 05/10/19 07:22 05/10/19 07:22 05/10/19 07:22 05/10/19 07:22 Intake & Output 05/09/19 05/10/19 05/11/19 06:59 06:59 06:59 Intake Total 1860 2200 Output Total 2875 3100 Balance -1015 -900 Weight 89.5 kg 90.8 kg General appearance: PRESENT: no acute distress, well-developed, well-nourished Head exam: PRESENT: atraumatic, normocephalic Eye exam: PRESENT: conjunctiva pink, EOMI, PERRLA. ABSENT: scleral icterus Ear exam: PRESENT: normal external ear exam Mouth exam: PRESENT: moist, tongue midline Neck exam: PRESENT: full ROM. ABSENT: carotid bruit, JVD, lymphadenopathy, thyromegaly Respiratory exam: PRESENT: clear to auscultation jerrica Cardiovascular exam: PRESENT: RRR. ABSENT: diastolic murmur, rubs, systolic murmur Pulses: PRESENT: normal dorsalis pedis pul, +2 pedal pulses bilateral Vascular exam: PRESENT: normal capillary refill GI/Abdominal exam: PRESENT: normal bowel sounds, soft. ABSENT: distended, guarding, mass, organolmegaly, rebound, tenderness Rectal exam: PRESENT: deferred Extremities exam: ABSENT: pedal edema Neurological exam: PRESENT: alert, awake, oriented to person, oriented to place, oriented to time, oriented to situation, CN II-XII grossly intact. ABSENT: motor sensory deficit Psychiatric exam: PRESENT: appropriate affect, normal mood. ABSENT: homicidal ideation, suicidal ideation Skin exam: PRESENT: dry, intact, warm. ABSENT: cyanosis, rash Results Laboratory Results: 05/08/19 05:15 05/08/19 21:52 04/30/19 04/30/19 04/30/19 07:46 09:13 17:15 Creatine Kinase CK-MB (CK-2) Troponin I Cancelled < 0.012 NT-Pro-B Natriuret Pep 5490 H 04/30/19 04/30/19 05/01/19 23:03 23:03 11:39 Creatine Kinase 33 34 CK-MB (CK-2) 0.53 Troponin I < 0.012 NT-Pro-B Natriuret Pep 05/01/19 05/09/19 05/09/19 11:39 20:15 20:15 Creatine Kinase 118 CK-MB (CK-2) 0.36 0.93 Troponin I < 0.012 0.012 NT-Pro-B Natriuret Pep 05/10/19 05/10/19 05/10/19 02:30 02:30 09:00 Creatine Kinase 90 87 CK-MB (CK-2) 0.80 Troponin I < 0.012 NT-Pro-B Natriuret Pep 05/10/19 09:00 Creatine Kinase CK-MB (CK-2) 0.73 Troponin I 0.013 NT-Pro-B Natriuret Pep Impressions: Foot X-Ray 04/30/19 09:29 IMPRESSION: No evidence of osteomyelitis. Chest X-Ray 04/30/19 14:46 IMPRESSION: Interval placement of right subclavian vascular catheter, tip projecting over the right atrium. Otherwise stable AP portable examination with mild diffuse interstitial pulmonary opacity, likely edema, and gross cardiomegaly. Status post median sternotomy. Abdomen/Pelvis CT 05/05/19 00:00 IMPRESSION: 1. Similar appearance compared to prior study. 2. Cardiomegaly and mild pleural fluid, suggests mild congestive failure. 3. Mildly heterogeneous liver, transient. See above. This is nonspecific. 4. Heavy atherosclerosis. 5. Pelvic findings are nonprogressive including what may be a gas and fluid containing diverticulum in the left hemipelvis. 6. No acute findings are suggested otherwise. Assessment & Plan - Diagnosis (1) Acute on chronic systolic (congestive) heart failure Is this a current diagnosis for this admission?: Yes Plan: Continues to Lasix (2) Anemia Qualifiers: Anemia type: unspecified type Qualified Code(s): D64.9 - Anemia, unspecified Is this a current diagnosis for this admission?: Yes (3) Antral gastritis Is this a current diagnosis for this admission?: Yes Plan: The Protonix and continues to Carafate (4) Nasal bleeding Is this a current diagnosis for this admission?: Yes Plan: ~Not active bleedings will discuss with the Dr. ROBLERO about the anticoagulations (5) Upper abdominal pain Is this a current diagnosis for this admission?: Yes Plan: Likely from the gastritis currently all stable (6) COPD (chronic obstructive pulmonary disease) Qualifiers: COPD type: unspecified COPD Qualified Code(s): J44.9 - Chronic obstructive pulmonary disease, unspecified Is this a current diagnosis for this admission?: Yes (7) Chest pain Qualifiers: Chest pain type: unspecified Qualified Code(s): R07.9 - Chest pain, unspecified Is this a current diagnosis for this admission?: Yes Plan: Follow-up with the cardiology (8) Decubitus ulcer of left heel, stage 4 Is this a current diagnosis for this admission?: Yes (9) Diabetes mellitus type 2 in obese Is this a current diagnosis for this admission?: Yes - Time Time Spent with patient: 15-24 minutes Level of Care: IMCU Medications reviewed and adjusted accordingly: Yes Anticipated discharge: Other Within: Other - Plan Summary Plan Summary: Continues to current medications Discussed with the nursing staff and patient's no other consent
[2019-05-10] MEDS ORDERED: SODIUM CHLORIDE NASAL SPRAY 44 ML NASL PRN (15:30)
[2019-05-10] MEDS: OXYCODONE-ACETAMINOPHEN 5-325 MG TABLET PO PRN (18:32)
--- NOTE | 2019-05-10 21:07 | Progress Note ---
Provider Note Provider Note: Cardiology PROGRESS NOTE by Dr. Charlette Harding on 05/10/2019. Subjective: The patient states that she has scanty rare nasal bleeds. She denies any chest pain or discomfort. There is no PND orthopnea. There is no shortness of breath. There is no recurrence of atrial fibrillation. There is no TIA CVA symptoms. PHYSICAL EXAMINATION: The patient is moderately obese in no acute distress. Selected Entries 05/10/19 14:54 Temperature 98.0 F Temperature Oral Source Pulse Rate 66 Respiratory 17 Rate Blood Pressure 126/61 H Blood Pressure 82 Mean BP Location Right Arm BP Position Supine O2 Sat by Pulse 99 Oximetry Oxygen Delivery Room Air Method HEENT: Head is atraumatic/normocephalic. EYES: Pupils are equal round regular reactive to light accommodation external ocular movements are normal. There is no conjunctival pallor there is no scleral icterus. ENT is negative. Neck is supple there is no JVD carotids are equal there is no bruit there is no lymphadenopathy there is no goiter trachea is central.Lungs: There is diminished air entry and prolonged expiration without any rhonchi rales or wheezing. On percussion there is hyperresonance throughout. There are no rales of CHF. HEART: S1-S2 is heard there is no S3 gallop there is no S4 gallop there is a systolic murmur in the left sternal border and apex there is no rub. ABDOMEN: Abdomen is soft nontender there is no hepatosplenomegaly. Bowel sounds well heard there are no tender areas of masses. EXTREMITIES femorals are diminished. Leg pulses are difficult to palpate. There are no femoral bruits. There is dressing on the ulcers of both nonhealing ulcers of the feet which are. There i s no pedal edema. There is no DVT or cellulitis there is no calf tenderness. 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 PSYCHIATRIC: The patient's judgment and insight are intact her affect is normal. Labs- All tests 24 hr 05/09/19 05/09/19 05/09/19 20:15 20:15 21:11 POC Glucose 181 H Creatine Kinase 118 CK-MB (CK-2) 0.93 Troponin I 0.012 05/10/19 05/10/19 05/10/19 02:30 02:30 07:25 POC Glucose 97 Creatine Kinase 90 CK-MB (CK-2) 0.80 Troponin I < 0.012 05/10/19 05/10/19 05/10/19 09:00 09:00 10:55 POC Glucose 129 H Creatine Kinase 87 CK-MB (CK-2) 0.73 Troponin I 0.013 05/10/19 14:56 POC Glucose 153 H Creatine Kinase CK-MB (CK-2) Troponin I Chest X-Ray 04/30/19 07:05 IMPRESSION: CARDIAC ENLARGEMENT. VASCULAR CONGESTION. Foot X-Ray 04/30/19 09:29 IMPRESSION: No evidence of osteomyelitis. Chest X-Ray 04/30/19 14:46 IMPRESSION: Interval placement of right subclavian vascular catheter, tip projecting over the right atrium. Otherwise stable AP portable examination with mild diffuse interstitial pulmonary opacity, likely edema, and gross cardiomegaly. Status post median sternotomy. Abdomen/Pelvis CT 05/05/19 00:00 IMPRESSION: 1. Similar appearance compared to prior study. 2. Cardiomegaly and mild pleural fluid, suggests mild congestive failure. 3. Mildly heterogeneous liver, transient. See above. This is nonspecific. 4. Heavy atherosclerosis. 5. Pelvic findings are nonprogressive including what may be a gas and fluid containing diverticulum in the left hemipelvis. 6. No acute findings are suggested otherwise. IMPRESSION/RECOMMENDATION: 1. Nosebleeds. Very occasional and minimal at present with the patient being on Eliquis and Plavix, with aspirin being stopped. If nasal bleeds continue then will stop the Plavix. 2. Abdominal pain: No severe pathology by EGD. Resolved 3. CHRONIC DIASTOLIC HEART FAILURE: At present compensated. At present the patient's ejection fraction is normal. 4. Paroxysmal atrial fibrillation: At present the patient is in sinus rhythm. 5. HYPERTENSION: Well controlled. Continue her current medications. 6. CORONARY ARTERY DISEASE: Prior history of myocardial infarction and history of coronary artery bypass graft surgery. No anginal symptoms. 7ut would recommend since the patient is not a good historian to get a IV Lexiscan Cardiolite stress test which is been ordered for tomorrow. 8. NONCOMPLIANCE.: The importance of compliance with diet and medications stressed with the patient. 9. CHRONIC OBSTRUCTIVE PULMONARY DISEASE: Continue current inhalers. 10. PERIPHERAL ARTERIAL DISEASE.: Patient with nonhealing ulcers of her both feet./Heels. 11. OBSTRUCTIVE SLEEP APNEA we will continue the patient on CPAP and continue the patient's Symbicort and Advair Diskus. 12.. DIABETES MELLITUS with peripheral arterial disease. Stable Medications reviewed medical regimen and management plan discussed with Dr. Vaz covering Dr. Moffett. Medical decision making is of moderate complexity. 40 minutes spent on this patient more than 50% of time spent in direct patient care. Will follow.
[2019-05-10] MEDS ORDERED: INSULIN GLARGINE,HUM.REC.ANLOG 1,000 UNIT/10 ML VIAL (PYX) SUBCUT ONE (21:47)
[2019-05-10] MEDS: ATORVASTATIN CALCIUM 20 MG TABLET PO SCH (21:50)
[2019-05-10] MEDS: INSULIN GLARGINE,HUM.REC.ANLOG 1,000 UNIT/10 ML VIAL SUBCUT SCH (21:51)
[2019-05-10] MEDS: MAG HYDROX/AL HYDROX/SIMETH SUSP 30 ML UDCUP PO PRN (21:58)
[2019-05-11] MEDS: OXYCODONE-ACETAMINOPHEN 5-325 MG TABLET PO PRN ×3 (00:33→20:14)
[2019-05-11] MEDS: SUCRALFATE 1 GM TABLET PO SCH ×4 (00:33→17:08)
[2019-05-11] MEDS: GABAPENTIN 300 MG CAPSULE PO SCH ×3 (05:06→21:25)
[2019-05-11] MEDS: PANTOPRAZOLE SODIUM 40 MG TABLET.DR PO SCH (05:06)
[2019-05-11] MEDS: OXYMETAZOLINE HCL 0.05% NASAL SPRAY 15 ML BOTTLE NASL PRN (05:10)
[2019-05-11 06:07] LABS: ABSOLUTE EOSINOPHILS # (AUTO) 0.2 10^3/uL (0.0-0.6); ABSOLUTE LYMPHOCYTES (AUTO) 1.4 10^3/uL (0.5-4.7); ABSOLUTE MONOCYTES (AUTO) 0.6 10^3/uL (0.1-1.4); ABSOLUTE NEUT (AUTO) 3.6 10^3/uL (1.7-8.2); BASOPHILS % (AUTO) 0.4 % (0-2); EOSINOPHILS % (AUTO) 3.2 % (0-6); HEMATOCRIT 24.5 % (36.0-47.0); HEMOGLOBIN 8.1 g/dL (12.0-15.5); LYMPHOCYTES % (AUTO) 23.5 % (13-45); MEAN CORPUSCULAR VOLUME 94 fl (80-97); MONOCYTES % (AUTO) 10.7 % (3-13); PLATELET COUNT 206 10^3/uL (150-450); RED BLOOD COUNT 2.61 10^6/uL (3.72-5.28); RED CELL DISTRIBUTION WIDTH 16.7 % (11.5-14.0); SEGMENTED NEUTROPHILS % (AUTO) 62.2 % (42-78); TOTAL CELLS COUNTED % (AUTO) 100 %; WHITE BLOOD COUNT 5.8 10^3/uL (4.0-10.5)
[2019-05-11 06:12] LABS: ANION GAP 6 (5-19); BLOOD UREA NITROGEN 37 mg/dL (7-20); CALCIUM 9.3 mg/dL (8.4-10.2); CARBON DIOXIDE 28 mmol/L (22-30); CHLORIDE 109 mmol/L (98-107); GLUCOSE 78 mg/dL (75-110); POTASSIUM 5.4 mmol/L (3.6-5.0)
[2019-05-11] MEDS: INSULIN LISPRO 100 UNIT/ML 3 ML VIAL SUBCUT SCH ×4 (08:20→21:19)
[2019-05-11] MEDS: ESCITALOPRAM OXALATE 10 MG TABLET PO SCH (09:51)
[2019-05-11] MEDS: VALSARTAN 160 MG TABLET PO SCH (09:52)
[2019-05-11] MEDS: FUROSEMIDE 40 MG TABLET PO SCH ×2 (09:52→17:08)
[2019-05-11] MEDS: CLOPIDOGREL BISULFATE 75 MG TABLET PO SCH (09:52)
[2019-05-11] MEDS: ASCORBIC ACID 500 MG TABLET PO SCH (09:52)
[2019-05-11] MEDS: FERROUS SULFATE 325 MG TABLET PO SCH (09:52)
[2019-05-11] MEDS: MULTIVITAMIN TABLET PO SCH (09:52)
[2019-05-11] MEDS: AMLODIPINE BESYLATE 10 MG TABLET PO SCH (09:52)
[2019-05-11] MEDS: MUPIROCIN 2% OINTMENT 22 GM TP SCH ×2 (09:53→17:09)
[2019-05-11 10:06] LABS: RETICULOCYTE COUNT (AUTO) 1.52 % (0.66-2.85)
--- NOTE | 2019-05-11 10:43 | PDOC PROGRESS REPORT ---
Subjective Progress Note for:: 05/11/19 Reason For Visit: ACUTE SYSTOLIC HEART FAILURE,H/O CHRONIC COMBINED Patient is currently doing same Patient's hemoglobin is 8.1 Patient's still having nosebleed on and off Patient is currently hold the Eliquis last night not taking the aspirin only taking the Plavix As per discussed with the Dr. Harding suggest continues hold the aspirin but patient is already on a holding the aspirin we currently hold the Eliquis Patient's denied any chest pain no short of breath Patient's abdominal pain is all improving Physical Exam Vital Signs: Temp Pulse Resp BP Pulse Ox 97.9 F 60 17 124/58 L 97 05/11/19 07:18 05/11/19 07:18 05/11/19 07:18 05/11/19 07:18 05/11/19 07:18 Intake & Output 05/10/19 05/11/19 05/12/19 06:59 06:59 06:59 Intake Total 2200 1480 Output Total 3100 2300 Balance -900 -820 Weight 90.8 kg 92.9 kg General appearance: PRESENT: no acute distress, well-developed, well-nourished Head exam: PRESENT: atraumatic, normocephalic Eye exam: PRESENT: conjunctiva pink, EOMI, PERRLA. ABSENT: scleral icterus Ear exam: PRESENT: normal external ear exam Mouth exam: PRESENT: moist, tongue midline Neck exam: PRESENT: full ROM. ABSENT: carotid bruit, JVD, lymphadenopathy, thyromegaly Respiratory exam: PRESENT: clear to auscultation jerrica Cardiovascular exam: PRESENT: RRR. ABSENT: diastolic murmur, rubs, systolic murmur Pulses: PRESENT: normal dorsalis pedis pul, +2 pedal pulses bilateral Vascular exam: PRESENT: normal capillary refill GI/Abdominal exam: PRESENT: normal bowel sounds, soft. ABSENT: distended, guarding, mass, organolmegaly, rebound, tenderness Rectal exam: PRESENT: deferred Extremities exam: ABSENT: pedal edema Neurological exam: PRESENT: alert, awake, oriented to person, oriented to place, oriented to time, oriented to situation, CN II-XII grossly intact. ABSENT: motor sensory deficit Psychiatric exam: PRESENT: appropriate affect, normal mood. ABSENT: homicidal ideation, suicidal ideation Skin exam: PRESENT: dry, intact, warm. ABSENT: cyanosis, rash Results Laboratory Results: 05/11/19 05:50 05/11/19 05:15 05/11/19 05/11/19 05/11/19 05:15 05:50 05:50 WBC 5.8 RBC 2.61 L Hgb 8.1 L Hct 24.5 L MCV 94 MCH 31.0 MCHC 33.0 RDW 16.7 H Plt Count 206 Seg Neutrophils % 62.2 Retic Count (auto) 1.52 Sodium 143.0 Potassium 5.4 H Chloride 109 H Carbon Dioxide 28 Anion Gap 6 BUN 37 H Creatinine 1.26 H Est GFR ( Amer) 52 L Glucose 78 Calcium 9.3 04/30/19 04/30/19 04/30/19 07:46 09:13 17:15 Creatine Kinase CK-MB (CK-2) Troponin I Cancelled < 0.012 NT-Pro-B Natriuret Pep 5490 H 04/30/19 04/30/19 05/01/19 23:03 23:03 11:39 Creatine Kinase 33 34 CK-MB (CK-2) 0.53 Troponin I < 0.012 NT-Pro-B Natriuret Pep 05/01/19 05/09/19 05/09/19 11:39 20:15 20:15 Creatine Kinase 118 CK-MB (CK-2) 0.36 0.93 Troponin I < 0.012 0.012 NT-Pro-B Natriuret Pep 05/10/19 05/10/19 05/10/19 02:30 02:30 09:00 Creatine Kinase 90 87 CK-MB (CK-2) 0.80 Troponin I < 0.012 NT-Pro-B Natriuret Pep 05/10/19 09:00 Creatine Kinase CK-MB (CK-2) 0.73 Troponin I 0.013 NT-Pro-B Natriuret Pep Impressions: Foot X-Ray 04/30/19 09:29 IMPRESSION: No evidence of osteomyelitis. Chest X-Ray 04/30/19 14:46 IMPRESSION: Interval placement of right subclavian vascular catheter, tip projecting over the right atrium. Otherwise stable AP portable examination with mild diffuse interstitial pulmonary opacity, likely edema, and gross cardiomegaly. Status post median sternotomy. Abdomen/Pelvis CT 05/05/19 00:00 IMPRESSION: 1. Similar appearance compared to prior study. 2. Cardiomegaly and mild pleural fluid, suggests mild congestive failure. 3. Mildly heterogeneous liver, transient. See above. This is nonspecific. 4. Heavy atherosclerosis. 5. Pelvic findings are nonprogressive including what may be a gas and fluid containing diverticulum in the left hemipelvis. 6. No acute findings are suggested otherwise. Assessment & Plan - Diagnosis (1) Acute on chronic systolic (congestive) heart failure Is this a current diagnosis for this admission?: Yes Plan: Continues to Lasix 40 mg twice a day we hold the IV fluid (2) Anemia Qualifiers: Anemia type: unspecified type Qualified Code(s): D64.9 - Anemia, unspecified Is this a current diagnosis for this admission?: Yes Plan: The iron study Will follow guaiac (3) Antral gastritis Is this a current diagnosis for this admission?: Yes Plan: The Protonix and continues to Carafate (4) Nasal bleeding Is this a current diagnosis for this admission?: Yes Plan: With the risk and the benefit will continues to hold the aspirin we hold the Eliquis I believe will talk to the Dr. Harding (5) Upper abdominal pain Is this a current diagnosis for this admission?: Yes Plan: Likely from the gastritis currently all stable (6) COPD (chronic obstructive pulmonary disease) Qualifiers: COPD type: unspecified COPD Qualified Code(s): J44.9 - Chronic obstructive pulmonary disease, unspecified Is this a current diagnosis for this admission?: Yes (7) Chest pain Qualifiers: Chest pain type: unspecified Qualified Code(s): R07.9 - Chest pain, unspecified Is this a current diagnosis for this admission?: Yes Plan: Follow-up with the cardiology (8) Decubitus ulcer of left heel, stage 4 Is this a current diagnosis for this admission?: Yes (9) Diabetes mellitus type 2 in obese Is this a current diagnosis for this admission?: Yes - Time Time Spent with patient: 15-24 minutes Level of Care: IMCU Medications reviewed and adjusted accordingly: Yes Anticipated discharge: Other Within: Other - Plan Summary Plan Summary: We consult the ENT with ongoing problem with the nosebleed Hold the Eliquis today We will get the stool for guaiac Iron study Correct the potassiums We will check the Chem-7 magnesium in the morning We will discuss with the cardiology
[2019-05-11 11:27] LABS: FOLATE > 20.00 ng/mL (>2.76)
--- NOTE | 2019-05-11 12:52 | RADIOLOGY REPORT (SQ) ---
EXAM DESCRIPTION: CHEST SINGLE VIEW COMPLETED DATE/TIME: 05/11/2019 11:51 am REASON FOR STUDY: chf COMPARISON: CT chest 02/14/2019 Chest films 03/23/2019, 04/04/2019, 04/30/2019 EXAM PARAMETERS: NUMBER OF VIEWS: One view. TECHNIQUE: Single frontal radiographic view of the chest acquired. RADIATION DOSE: NA LIMITATIONS: None. FINDINGS: LUNGS AND PLEURA: No opacities, masses or pneumothorax. No pleural effusion. MEDIASTINUM AND HILAR STRUCTURES: No masses. Contour normal. HEART AND VASCULAR STRUCTURES: Stable marked cardiomegaly. Mild pulmonary vascular congestion withou t alveolar or interstitial edema BONES: No acute findings. HARDWARE: Right-sided triple-lumen catheter tip in the right atrium. Old sternotomy for CABG OTHER: No other significant finding. IMPRESSION: Stable cardiomegaly. TECHNICAL DOCUMENTATION: JOB ID: [id number] [employer]- All Rights Reserved Reading location - IP/workstation name: [email or web address]
--- NOTE | 2019-05-11 15:14 | Progress Note ---
Provider Note Provider Note: CARDIOLOGY PROGRESS NOTE by Dr. Charlette Harding on 05/11/2019. SUBJECTIVE: The patient has had further nosebleeds, and this now seems to be slightly significant. Agree with holding the patient's Eliquis for now. There is no recurrence of atrial fibrillation. Patient denies any chest pain discomfort. There is no shortness of breath. There is no PND orthopnea. There is no leg edema. There is no TIA CVA symptoms. There is no ventricle arrhythmia seen on the monitor. PHYSICAL EXAMINATION: The patient is moderately obese. At present in no acute distress. Selected Entries 05/11/19 10:48 Temperature 97.9 F Temperature Oral Source Pulse Rate 66 Respiratory 13 Rate Blood Pressure 86 Mean BP Location Right Arm O2 Sat by Pulse 100 Oximetry Oxygen Flow 2.00 Rate Oxygen Delivery Nasal Cannula Method HEENT: Head is atraumatic/normocephalic. EYES: Pupils are equal round regular reactive to light accommodation external ocular movements are normal. There is no conjunctival pallor there is no scleral icterus. ENT is negative. Neck is supple there is no JVD carotids are equal there is no bruit there is no lymphadenopathy there is no goiter trachea is central.Lungs: There is diminished air entry and prolonged expiration without any rhonchi rales or wheezing. On percussion there is hyperresonance throughout. There are no rales of CHF. HEART: S1-S2 is heard there is no S3 gallop there is no S4 gallop there is a systolic murmur in the left sternal border and apex there is no rub. ABDOMEN: Abdomen is soft nontender there is no hepatosplenomegaly. Bowel sounds well heard there are no tender areas of masses. EXTREMITIES femorals are diminished. Leg pulses are difficult to palpate. There are no femoral bruits. There is dressing on the ulcers of both nonhealing ulcers of the feet which are. There is no pedal edema. There is no DVT or cellulitis there is no calf tenderness. 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 PSYCHIATRIC: The patient's judgment and insight are intact her affect is normal. Labs- All tests 24 hr 05/10/19 05/11/19 05/11/19 21:35 05:15 05:50 WBC 5.8 RBC 2.61 L Hgb 8.1 L Hct 24.5 L MCV 94 MCH 31.0 MCHC 33.0 RDW 16.7 H Plt Count 206 Lymph % (Auto) 23.5 [place] % (Auto) 10.7 Eos % (Auto) 3.2 Baso % (Auto) 0.4 Reticulocyte # Absolute Neuts (auto) 3.6 Absolute Lymphs (auto) 1.4 Absolute Monos (auto) 0.6 Absolute Eos (auto) 0.2 Absolute Basos (auto) 0.0 Seg Neutrophils % 62.2 Retic Count (auto) Sodium 143.0 Potassium 5.4 H Chloride 109 H Carbon Dioxide 28 Anion Gap 6 BUN 37 H Creatinine 1.26 H Est GFR ( Amer) 52 L Est GFR (MDRD) Non-Af 43 L Glucose 78 POC Glucose 185 H Calcium 9.3 Iron TIBC % Saturation Ferritin Vitamin B12 Folate 05/11/19 05/11/19 05/11/19 05:50 05:50 07:30 WBC RBC Hgb Hct MCV MCH MCHC RDW Plt Count Lymph % (Auto) [place] % (Auto) Eos % (Auto) Baso % (Auto) Reticulocyte # 0.040 Absolute Neuts (auto) Absolute Lymphs (auto) Absolute Monos (auto) Absolute Eos (auto) Absolute Basos (auto) Seg Neutrophils % Retic Count (auto) 1.52 Sodium Potassium Chloride Carbon Dioxide Anion Gap BUN Creatinine Est GFR ( Amer) Est GFR (MDRD) Non-Af Glucose POC Glucose 68 L Calcium Iron 40.0 TIBC 249 L % Saturation 16 Ferritin 169.00 Vitamin B12 467.0 Folate > 20.00 05/11/19 05/11/19 05/11/19 08:21 09:18 10:52 WBC RBC Hgb Hct MCV MCH MCHC RDW Plt Count Lymph % (Auto) [place] % (Auto) Eos % (Auto) Baso % (Auto) Reticulocyte # Absolute Neuts (auto) Absolute Lymphs (auto) Absolute Monos (auto) Absolute Eos (auto) Absolute Basos (auto) Seg Neutrophils % Retic Count (auto) Sodium Potassium Chloride Carbon Dioxide Anion Gap BUN Creatinine Est GFR ( Amer) Est GFR (MDRD) Non-Af Glucose POC Glucose 77 89 177 H Calcium Iron TIBC % Saturation Ferritin Vitamin B12 Folate 05/11/19 15:04 WBC RBC Hgb Hct MCV MCH MCHC RDW Plt Count Lymph % (Auto) [place] % (Auto) Eos % (Auto) Baso % (Auto) Reticulocyte # Absolute Neuts (auto) Absolute Lymphs (auto) Absolute Monos (auto) Absolute Eos (auto) Absolute Basos (auto) Seg Neutrophils % Retic Count (auto) Sodium Potassium Chloride Carbon Dioxide Anion Gap BUN Creatinine Est GFR ( Amer) Est GFR (MDRD) Non-Af Glucose POC Glucose 214 H Calcium Iron TIBC % Saturation Ferritin Vitamin B12 Folate Chest X-Ray 04/30/19 07:05 IMPRESSION: CARDIAC ENLARGEMENT. VASCULAR CONGESTION. Foot X-Ray 04/30/19 09:29 IMPRESSION: No evidence of osteomyelitis. Chest X-Ray 04/30/19 14:46 IMPRESSION: Interval placement of right subclavian vascular catheter, tip projecting over the right atrium. Otherwise stable AP portable examination with mild diffuse interstitial pulmonary opacity, likely edema, and gross cardiomegaly. Status post median sternotomy. Abdomen/Pelvis CT 05/05/19 00:00 IMPRESSION: 1. Similar appearance compared to prior study. 2. Cardiomegaly and mild pleural fluid, suggests mild congestive failure. 3. Mildly heterogeneous liver, transient. See above. This is nonspecific. 4. Heavy atherosclerosis. 5. Pelvic findings are nonprogressive including what may be a gas and fluid containing diverticulum in the left hemipelvis. 6. No acute findings are suggested otherwise. Chest X-Ray 05/11/19 00:00 IMPRESSION: Stable cardiomegaly. IMPRESSION/RECOMMENDATION: 1. Nosebleeds. This is recurrent, and seems to be slightly more than before. The patient's Eliquis has been discontinued for now. Continue Plavix. 2. Abdominal pain: No severe pathology by EGD. Resolved 3. CHRONIC DIASTOLIC HEART FAILURE: At present compensated. At present the p atient's ejection fraction is normal. 4. Paroxysmal atrial fibrillation: At present the patient is in sinus rhythm. 5. HYPERTENSION: Well controlled. Continue her current medications. 6. CORONARY ARTERY DISEASE: Prior history of myocardial infarction and history of coronary artery bypass graft surgery. No anginal symptoms. 7ut would recommend since the patient is not a good historian to get a IV Lexiscan Cardiolite stress test which is been ordered for tomorrow. 8. NONCOMPLIANCE.: The importance of compliance with diet and medications stressed with the patient. 9. CHRONIC OBSTRUCTIVE PULMONARY DISEASE: Continue current inhalers. 10. PERIPHERAL ARTERIAL DISEASE.: Patient with nonhealing ulcers of her both feet./Heels. 11. OBSTRUCTIVE SLEEP APNEA we will continue the patient on CPAP and continue the patient's Symbicort and Advair Diskus. 12.. DIABETES MELLITUS with peripheral arterial disease. Stable Medications reviewed medical regimen and management plan discussed with Dr. Vaz covering Dr. Moffett. Medical decision making is of moderate complexity. 40 minutes spent on this patient more than 50% of time spent in direct patient care. Will follow.
[2019-05-11] MEDS: PATIROMER 8.4 GM SUSP PACKET PO SCH (17:14)
[2019-05-11] MEDS ORDERED: INSULIN GLARGINE,HUM.REC.ANLOG 1,000 UNIT/10 ML VIAL (PYX) SUBCUT ONE (21:22)
[2019-05-11] MEDS: INSULIN GLARGINE,HUM.REC.ANLOG 1,000 UNIT/10 ML VIAL SUBCUT SCH (21:25)
[2019-05-11] MEDS: ATORVASTATIN CALCIUM 20 MG TABLET PO SCH (21:25)
[2019-05-12] MEDS: SUCRALFATE 1 GM TABLET PO SCH ×5 (00:07→23:28)
[2019-05-12] MEDS: OXYCODONE-ACETAMINOPHEN 5-325 MG TABLET PO PRN ×3 (05:20→23:28)
[2019-05-12] MEDS: PANTOPRAZOLE SODIUM 40 MG TABLET.DR PO SCH (05:20)
[2019-05-12] MEDS: GABAPENTIN 300 MG CAPSULE PO SCH ×3 (05:20→22:17)
[2019-05-12 05:47] LABS: ABSOLUTE EOSINOPHILS # (AUTO) 0.2 10^3/uL (0.0-0.6); ABSOLUTE LYMPHOCYTES (AUTO) 1.4 10^3/uL (0.5-4.7); ABSOLUTE MONOCYTES (AUTO) 0.7 10^3/uL (0.1-1.4); ABSOLUTE NEUT (AUTO) 3.2 10^3/uL (1.7-8.2); BASOPHILS % (AUTO) 0.5 % (0-2); EOSINOPHILS % (AUTO) 3.7 % (0-6); HEMATOCRIT 24.1 % (36.0-47.0); LYMPHOCYTES % (AUTO) 25.3 % (13-45); MEAN CORPUSCULAR HEMOGLOBIN 30.3 pg (27.0-33.4); MEAN CORPUSCULAR HGB CONC 31.9 g/dL (32.0-36.0); MEAN CORPUSCULAR VOLUME 95 fl (80-97); MONOCYTES % (AUTO) 12.2 % (3-13); PLATELET COUNT 206 10^3/uL (150-450); RED BLOOD COUNT 2.53 10^6/uL (3.72-5.28); RED CELL DISTRIBUTION WIDTH 16.6 % (11.5-14.0); SEGMENTED NEUTROPHILS % (AUTO) 58.3 % (42-78); TOTAL CELLS COUNTED % (AUTO) 100 %; WHITE BLOOD COUNT 5.6 10^3/uL (4.0-10.5)
[2019-05-12 05:56] LABS: HEMOGLOBIN 7.7 g/dL (12.0-15.5)
[2019-05-12 06:01] LABS: BLOOD UREA NITROGEN 39 mg/dL (7-20); CARBON DIOXIDE 28 mmol/L (22-30); CHLORIDE 107 mmol/L (98-107); GLUCOSE 117 mg/dL (75-110); POTASSIUM 5.3 mmol/L (3.6-5.0)
[2019-05-12 06:02] LABS: ANION GAP 6 (5-19)
[2019-05-12] MEDS: INSULIN LISPRO 100 UNIT/ML 3 ML VIAL SUBCUT SCH ×4 (07:23→22:01)
[2019-05-12] MEDS: VALSARTAN 160 MG TABLET PO SCH (09:08)
[2019-05-12] MEDS: FERROUS SULFATE 325 MG TABLET PO SCH (09:08)
[2019-05-12] MEDS: ESCITALOPRAM OXALATE 10 MG TABLET PO SCH (09:08)
[2019-05-12] MEDS: FUROSEMIDE 40 MG TABLET PO SCH ×2 (09:08→17:11)
[2019-05-12] MEDS: APIXABAN 2.5 MG TABLET PO SCH ×2 (09:08→17:11)
[2019-05-12] MEDS: CLOPIDOGREL BISULFATE 75 MG TABLET PO SCH (09:09)
[2019-05-12] MEDS: AMLODIPINE BESYLATE 10 MG TABLET PO SCH (09:09)
[2019-05-12] MEDS: MULTIVITAMIN TABLET PO SCH (09:09)
[2019-05-12] MEDS: ASCORBIC ACID 500 MG TABLET PO SCH (09:09)
[2019-05-12] MEDS: MUPIROCIN 2% OINTMENT 22 GM TP SCH (13:55)
[2019-05-12] MEDS: PATIROMER 8.4 GM SUSP PACKET PO SCH (17:12)
--- NOTE | 2019-05-12 17:49 | PDOC PROGRESS REPORT ---
Subjective Progress Note for:: 05/12/19 Subjective:: Patient reported nose bleed this morning. She remain on triple anti-platelet therapy. She continue to report intermittent abdominal pain. No nausea or vomiting. No fever or chills. No chest pain or difficulty with breathing. Reason For Visit: ACUTE SYSTOLIC HEART FAILURE,H/O CHRONIC COMBINED Physical Exam Vital Signs: Temp Pulse Resp BP Pulse Ox 97.9 F 60 20 115/55 L 99 05/12/19 16:30 05/12/19 16:30 05/12/19 16:30 05/12/19 16:30 05/12/19 16:30 Intake & Output 05/11/19 05/12/19 05/13/19 06:59 06:59 06:59 Intake Total 1480 957 Output Total 2300 2400 Balance -820 -1443 Weight 92.9 kg 93.6 kg Physical Exam: Head exam: PRESENT: atraumatic, normocephalic Eye exam: PRESENT: conjunctiva pink. ABSENT: pallor, scleral icterus Ear exam: PRESENT: normal external ear exam Mouth exam: PRESENT: moist Nose exam: Turbinate swelling No evidence of fresh blooding. Teeth exam: PRESENT: poor dentition Respiratory exam: PRESENT: clear to auscultation [place], decreased breath sounds - at lung bases Cardiovascular exam: PRESENT: RRR. ABSENT: diastolic murmur, rubs, systolic murmur GI/Abdominal exam: PRESENT: normal bowel sounds, soft, nonspecific tenderness to palpation over epigastrium and lower quadrants regions ABSENT: distended, guarding, mass, organomegaly, rebound Extremities exam: PRESENT: pedal edema - comparatively improved Neurological exam: PRESENT: alert, awake, oriented to person, oriented to place, oriented to time, oriented to situation, CN II-XII grossly intact. ABSENT: motor sensory deficit Psychiatric exam: PRESENT: appropriate affect, normal mood. ABSENT: homicidal ideation, suicidal ideation Skin exam: PRESENT: dry, warm, other - improving left calcaneal region diabetic ulcer. Results Laboratory Results: 05/12/19 05:20 05/12/19 05:20 05/11/19 05/12/19 05/12/19 17:30 05:20 05:20 WBC 5.6 RBC 2.53 L Hgb 7.7 L Hct 24.1 L MCV 95 MCH 30.3 MCHC 31.9 L RDW 16.6 H Plt Count 206 Seg Neutrophils % 58.3 Sodium 141.4 Potassium 5.3 H Chloride 107 Carbon Dioxide 28 Anion Gap 6 BUN 39 H Creatinine 1.21 Est GFR ( Amer) 54 L Glucose 117 H Calcium 9.0 Magnesium 2.7 H Stool Occult Blood NEGATIVE 04/30/19 04/30/19 04/30/19 07:46 09:13 17:15 Creatine Kinase CK-MB (CK-2) Troponin I Cancelled < 0.012 NT-Pro-B Natriuret Pep 5490 H 04/30/19 04/30/19 05/01/19 23:03 23:03 11:39 Creatine Kinase 33 34 CK-MB (CK-2) 0.53 Troponin I < 0.012 NT-Pro-B Natriuret Pep 05/01/19 05/09/19 05/09/19 11:39 20:15 20:15 Creatine Kinase 118 CK-MB (CK-2) 0.36 0.93 Troponin I < 0.012 0.012 NT-Pro-B Natriuret Pep 05/10/19 05/10/19 05/10/19 02:30 02:30 09:00 Creatine Kinase 90 87 CK-MB (CK-2) 0.80 Troponin I < 0.012 NT-Pro-B Natriuret Pep 05/10/19 09:00 Creatine Kinase CK-MB (CK-2) 0.73 Troponin I 0.013 NT-Pro-B Natriuret Pep Impressions: Foot X-Ray 04/30/19 09:29 IMPRESSION: No evidence of osteomyelitis. Abdomen/Pelvis CT 05/05/19 00:00 IMPRESSION: 1. Similar appearance compared to prior study. 2. Cardiomegaly and mild pleural fluid, suggests mild congestive failure. 3. Mildly heterogeneous liver, transient. See above. This is nonspecific. 4. Heavy atherosclerosis. 5. Pelvic findings are nonprogressive including what may be a gas and fluid containing diverticulum in the left hemipelvis. 6. No acute findings are suggested otherwise. Chest X-Ray 05/11/19 00:00 IMPRESSION: Stable cardiomegaly. Assessment & Plan - Diagnosis (1) Upper abdominal pain Is this a current diagnosis for this admission?: Yes (2) Acute on chronic combined systolic and diastolic CHF, NYHA class 3 Is this a current diagnosis for this admission?: Yes (3) Decubitus ulcer of left heel, stage 4 Is this a current diagnosis for this admission?: Yes (4) Diabetes mellitus type 2 in obese Is this a current diagnosis for this admission?: Yes (5) Hypertension Qualifiers: Hypertension type: essential hypertension Qualified Code(s): I10 - Essential (primary) hypertension Is this a current diagnosis for this admission?: Yes (6) CAD (coronary artery disease) Qualifiers: Coronary Disease-Associated Artery/Lesion type: unspecified vessel or lesion type [place] vs. transplanted heart: [place] heart Associated angina: without angina Qualified Code(s): I25.10 - Atherosclerotic heart disease of [place] coronary artery without angina pectoris Is this a current diagnosis for this admission?: Yes (7) Hyperlipidemia Qualifiers: Hyperlipidemia type: unspecified Qualified Code(s): E78.5 - Hyperlipidemia, unspecified Is this a current diagnosis for this admission?: Yes (8) S/P CABG (coronary artery bypass graft) Is this a current diagnosis for this admission?: Yes (9) Chronic use of opiate for therapeutic purpose Is this a current diagnosis for this admission?: Yes (10) Hyperkalemia Is this a current diagnosis for this admission?: Yes (11) Antral gastritis Is this a current diagnosis for this admission?: Yes (12) Nasal bleeding Is this a current diagnosis for this admission?: Yes Plan: Consider effect of nasal supplemental oxygen on her nasal bleed. D/C supplemental [id number] if oxygen saturation is above 93%. Follow up on ENT consult request. - Time Time Spent with patient: 35 or more minutes Level of Care: IMCU Medications reviewed and adjusted accordingly: Yes Anticipated discharge: Home with Homehealth Within: Other - Inpatient Certification Based on my medical assessment, after consideration of the patient's comorbiditi es, presenting symptoms, or acuity I expect that the services needed warrant INPATIENT care.: Yes I certify that my determination is in accordance with my understanding of [facility]'s requirements for reasonable and necessary INPATIENT services [42 CFR 412.3e].: Yes Medical Necessity: Significant Comorbidiites Make Outpatient Treatment Too Risky, Need Close Monitoring Due to Risk of Patient Decompensation, Need For Continuous Telemetry Monitoring, Need for Nebulizer Therapy and Monitoring of Response, Risk of Complication if Not Cared For in Hospital, Risk of Diagnosis Which Will Require Inpatient Eval/Care/Monitoring Post Hospital Care: D/C Electrical & Instrumentation Supervisor Documentation - Plan Summary Plan Summary: D/C supplemental oxygen usage if Oxygen saturation is above 93%. If nose bleed persist consider d/c plavix. Follow up on ENT consultation request.
--- NOTE | 2019-05-12 18:44 | Progress Note ---
Provider Note Provider Note: Cardiology PROGRESS NOTE by Dr. Charlette Aguilera on 05/12/2019. SUBJECTIVE: The patient has occasional nosebleeds, but is not bleeding much. ENT consult is awaited. I thought the patient was off Eliquis but she is on Eliquis and Plavix. She has intermittent abdominal pain. There is no chest pain or discomfort. There is no shortness of breath. There is no PND orthopnea. There is no TIA CVA symptoms. There is no recurrence of atrial fibrillation patient remains in sinus rhythm there is no ventricular arrhythmia seen on the monitor. PHYSICAL EXAMINATION: The patient is moderately obese. In no acute distress. Selected Entries 05/12/19 08:37 Temperature 97.5 F Temperature Oral Source Pulse Rate 59 L Respiratory 16 Rate Blood Pressure 116/55 L Blood Pressure 75 Mean BP Location Left Arm BP Position Sitting O2 Sat by Pulse 98 Oximetry Oxygen Flow 2.00 Rate Oxygen Delivery Nasal Cannula Method HEENT: Head is atraumatic/normocephalic. EYES: Pupils are equal round regular reactive to light accommodation external ocular movements are normal. There is no conjunctival pallor there is no scleral icterus. ENT is negative. Neck is supple there is no JVD carotids are equal there is no bruit there is no lymphadenopathy there is no goiter trachea is central.Lungs: There is diminished air entry and prolonged expiration without any rhonchi rales or wheezing. On percussion there is hyperresonance throughout. There are no rales of CHF. HEART: S1-S2 is heard there is no S3 gallop there is no S4 gallop there is a systolic murmur in the left sternal border and apex there is no rub. ABDOMEN: Abdomen is soft nontender there is no hepatosplenomegaly. Bowel sounds well heard there are no tender areas of masses. EXTREMITIES femorals are diminished. Leg pulses are difficult to palpate. There are no femoral bruits. There is dressing on the ulcers of both nonhealing ulcers of the feet which are. There is no pedal edema. There is no DVT or cellulitis there is no calf tenderness. 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 PSYCHIATRIC: The patient's judgment and insight are intact her affect is normal. Labs- All tests 24 hr 05/11/19 05/12/19 05/12/19 21:15 05:20 05:20 WBC 5.6 RBC 2.53 L Hgb 7.7 L Hct 24.1 L MCV 95 MCH 30.3 MCHC 31.9 L RDW 16.6 H Plt Count 206 Lymph % (Auto) 25.3 [place] % (Auto) 12.2 Eos % (Auto) 3.7 Baso % (Auto) 0.5 Absolute Neuts (auto) 3.2 Absolute Lymphs (auto) 1.4 Absolute Monos (auto) 0.7 Absolute Eos (auto) 0.2 Absolute Basos (auto) 0.0 Seg Neutrophils % 58.3 Sodium 141.4 Potassium 5.3 H Chloride 107 Carbon Dioxide 28 Anion Gap 6 BUN 39 H Creatinine 1.21 Est GFR ( Amer) 54 L Est GFR (MDRD) Non-Af 45 L Glucose 117 H POC Glucose 153 H Calcium 9.0 Magnesium 2.7 H 05/12/19 05/12/19 12:04 16:30 WBC RBC Hgb Hct MCV MCH MCHC RDW Plt Count Lymph % (Auto) [place] % (Auto) Eos % (Auto) Baso % (Auto) Absolute Neuts (auto) Absolute Lymphs (auto) Absolute Monos (auto) Absolute Eos (auto) Absolute Basos (auto) Seg Neutrophils % Sodium Potassium Chloride Carbon Dioxide Anion Gap BUN Creatinine Est GFR ( Amer) Est GFR (MDRD) Non-Af Glucose POC Glucose 143 H 149 H Calcium Magnesium Chest X-Ray 04/30/19 07:05 IMPRESSION: CARDIAC ENLARGEMENT. VASCULAR CONGESTION. Foot X-Ray 04/30/19 09:29 IMPRESSION: No evidence of osteomyelitis. Chest X-Ray 04/30/19 14:46 IMPRESSION: Interval placement of right subclavian vascular catheter, tip projecting over the right atrium. Otherwise stable AP portable examination with mild diffuse interstitial pulmonary opacity, likely edema, and gross cardiomegaly. Status post median sternotomy. Abdomen/Pelvis CT 05/05/19 00:00 IMPRESSION: 1. Similar appearance compared to prior study. 2. Cardiomegaly and mild pleural fluid, suggests mild congestive failure. 3. Mildly heterogeneous liver, transient. See above. This is nonspecific. 4. Heavy atherosclerosis. 5. Pelvic findings are nonprogressive including what may be a gas and fluid containing diverticulum in the left hemipelvis. 6. No acute findings are suggested otherwise. Chest X-Ray 05/11/19 00:00 IMPRESSION: Stable cardiomegaly. IMPRESSION/RECOMMENDATION: 1. Nosebleeds. This is recurrent, and seems to be slightly more than before. The patient is back on Eliquis . Continue Plavix. 2. Abdominal pain: No severe pathology by EGD. Patient has intermittent nonspecific abdominal pain, which is mild. There is no nausea vomiting. 3. CHRONIC DIASTOLIC HEART FAILURE: At present compensated. At present the patient's ejection fraction is normal. 4. Paroxysmal atrial fibrillation: At present the patient is in sinus rhythm. 5. HYPERTENSION: Well controlled. Continue her current medications. 6. CORONARY ARTERY DISEASE: Prior history of myocardial infarction and history of coronary artery bypass graft surgery. No anginal symptoms. 7ut would recommend since the patient is not a good historian to get a IV Lexiscan Cardiolite stress test which is been ordered for tomorrow. 8. NONCOMPLIANCE.: The importance of compliance with diet and medications stressed with the patient. 9. CHRONIC OBSTRUCTIVE PULMONARY DISEASE: Continue current inhalers. 10. PERIPHERAL ARTERIAL DISEASE.: Patient with nonhealing ulcers of her both feet./Heels. 11. OBSTRUCTIVE SLEEP APNEA we will continue the patient on CPAP and continue the patient's Symbicort and Advair Diskus. 12.. DIABETES MELLITUS with peripheral arterial disease. Stable Medications reviewed medical regimen and management plan discussed with Dr. Vaz covering Dr. Moffett. Medical decision making is of moderate complexity. 40 minutes spent on this patient more than 50% of time spent in direct patient care. Will follow.
[2019-05-12] MEDS ORDERED: INSULIN GLARGINE,HUM.REC.ANLOG 1,000 UNIT/10 ML VIAL (PYX) SUBCUT ONE (22:14)
[2019-05-12] MEDS: ATORVASTATIN CALCIUM 20 MG TABLET PO SCH (22:17)
[2019-05-12] MEDS: INSULIN GLARGINE,HUM.REC.ANLOG 1,000 UNIT/10 ML VIAL SUBCUT SCH (22:17)
[2019-05-13] MEDS: GABAPENTIN 300 MG CAPSULE PO SCH ×3 (05:02→21:48)
[2019-05-13] MEDS: PANTOPRAZOLE SODIUM 40 MG TABLET.DR PO SCH (05:02)
[2019-05-13] MEDS: SUCRALFATE 1 GM TABLET PO SCH ×3 (05:02→17:26)
[2019-05-13] MEDS: OXYCODONE-ACETAMINOPHEN 5-325 MG TABLET PO PRN ×3 (05:40→21:48)
[2019-05-13 05:42] LABS: ANION GAP 7 (5-19); BLOOD UREA NITROGEN 45 mg/dL (7-20); CALCIUM 9.1 mg/dL (8.4-10.2); CARBON DIOXIDE 27 mmol/L (22-30); CHLORIDE 107 mmol/L (98-107); GLUCOSE 86 mg/dL (75-110); POTASSIUM 5.4 mmol/L (3.6-5.0)
[2019-05-13] MEDS: INSULIN LISPRO 100 UNIT/ML 3 ML VIAL SUBCUT SCH ×4 (07:08→21:50)
[2019-05-13 08:12] LABS: ABSOLUTE EOSINOPHILS # (AUTO) 0.2 10^3/uL (0.0-0.6); ABSOLUTE LYMPHOCYTES (AUTO) 1.4 10^3/uL (0.5-4.7); ABSOLUTE MONOCYTES (AUTO) 0.7 10^3/uL (0.1-1.4); ABSOLUTE NEUT (AUTO) 3.2 10^3/uL (1.7-8.2); BASOPHILS % (AUTO) 0.6 % (0-2); EOSINOPHILS % (AUTO) 3.3 % (0-6); HEMATOCRIT 25.1 % (36.0-47.0); HEMOGLOBIN 8.1 g/dL (12.0-15.5); LYMPHOCYTES % (AUTO) 25.3 % (13-45); MEAN CORPUSCULAR HEMOGLOBIN 30.4 pg (27.0-33.4); MEAN CORPUSCULAR HGB CONC 32.3 g/dL (32.0-36.0); MEAN CORPUSCULAR VOLUME 94 fl (80-97); MONOCYTES % (AUTO) 12.1 % (3-13); PLATELET COUNT 210 10^3/uL (150-450); RED BLOOD COUNT 2.67 10^6/uL (3.72-5.28); RED CELL DISTRIBUTION WIDTH 16.6 % (11.5-14.0); SEGMENTED NEUTROPHILS % (AUTO) 58.7 % (42-78); TOTAL CELLS COUNTED % (AUTO) 100 %; WHITE BLOOD COUNT 5.5 10^3/uL (4.0-10.5)
[2019-05-13] MEDS: APIXABAN 2.5 MG TABLET PO SCH ×2 (09:31→17:26)
[2019-05-13] MEDS: VALSARTAN 160 MG TABLET PO SCH (09:31)
[2019-05-13] MEDS: FERROUS SULFATE 325 MG TABLET PO SCH (09:31)
[2019-05-13] MEDS: AMLODIPINE BESYLATE 10 MG TABLET PO SCH (09:31)
[2019-05-13] MEDS: CLOPIDOGREL BISULFATE 75 MG TABLET PO SCH (09:31)
[2019-05-13] MEDS: FUROSEMIDE 40 MG TABLET PO SCH ×2 (09:31→17:26)
[2019-05-13] MEDS: ASCORBIC ACID 500 MG TABLET PO SCH (09:31)
[2019-05-13] MEDS: MULTIVITAMIN TABLET PO SCH (09:31)
[2019-05-13] MEDS: ESCITALOPRAM OXALATE 10 MG TABLET PO SCH (09:31)
[2019-05-13] MEDS: PATIROMER 8.4 GM SUSP PACKET PO SCH (17:26)
--- NOTE | 2019-05-13 19:21 | Progress Note ---
Provider Note Provider Note: CARDIOLOGY PROGRESS NOTE by Dr. Charlette Harding on 05/13/2019. SUBJECTIVE: The patient claims intermittent mild nosebleeds, but I do not see any evidence of it. She denies any chest pain discomfort. Today she has no abdominal pain. There is no PND orthopnea. There is no palpitations. There is no recurrence of atrial fibrillation. There is no ventricular arrhythmia seen on the monitor. There is no pedal edema. There is no recurrence of TIA or CVA symptoms this admission. PHYSICAL EXAMINATION: On examination the patient is moderately obese in no acute distress Selected Entries 05/13/19 16:27 Temperature 97.9 F Temperature Oral Source Pulse Rate 67 Respiratory 16 Rate Blood Pressure 128/58 H Blood Pressure 81 Mean BP Location Left Arm BP Position Supine O2 Sat by Pulse 92 Oximetry Oxygen Delivery Room Air Method HEENT: Head is atraumatic/normocephalic. EYES: Pupils are equal round regular reactive to light accommodation external ocular movements are normal. There is no conjunctival pallor there is no scleral icterus. ENT is negative. Neck is supple there is no JVD carotids are equal there is no bruit there is no lymphadenopathy there is no goiter trachea is central.Lungs: There is diminished air entry and prolonged expiration without any rhonchi rales or wheezing. On percussion there is hyperresonance throughout. There are no rales of CHF. HEART: S1-S2 is heard there is no S3 gallop there is no S4 gallop there is a systolic murmur in the left sternal border and apex there is no rub. ABDOMEN: Abdomen is soft nontender there is no hepatosplenomegaly. Bowel sounds well heard there are no tender areas of masses. EXTREMITIES femorals are diminished. Leg pulses are difficult to palpate. There are no femoral bruits. There is dressing on the ulcers of both nonhealing ulcers of the feet which are. There is no pedal edema. There is no DVT or cellulitis there is no calf tenderness. There is no cyanosis or clubbing.AQUATIC ECOLOGIST: The patient is awake alert oriented 3 with no focal deficits. PSYCHIATRIC: The patient's judgment and insight are intact her affect is normal. Labs- All tests 24 hr 05/12/19 05/13/19 05/13/19 21:30 05:00 07:36 WBC RBC Hgb Hct MCV MCH MCHC RDW Plt Count Lymph % (Auto) Scott % (Auto) Eos % (Auto) Baso % (Auto) Absolute Neuts (auto) Absolute Lymphs (auto) Absolute Monos (auto) Absolute Eos (auto) Absolute Basos (auto) Seg Neutrophils % Sodium 141.0 Potassium 5.4 H Chloride 107 Carbon Dioxide 27 Anion Gap 7 BUN 45 H Creatinine 1.24 Est GFR ( Amer) 53 L Est GFR (MDRD) Non-Af 44 L Glucose 86 POC Glucose 206 H 73 Calcium 9.1 05/13/19 05/13/19 05/13/19 08:00 12:51 16:27 WBC 5.5 RBC 2.67 L Hgb 8.1 L Hct 25.1 L MCV 94 MCH 30.4 MCHC 32.3 RDW 16.6 H Plt Count 210 Lymph % (Auto) 25.3 Scott % (Auto) 12.1 Eos % (Auto) 3.3 Baso % (Auto) 0.6 Absolute Neuts (auto) 3.2 Absolute Lymphs (auto) 1.4 Absolute Monos (auto) 0.7 Absolute Eos (auto) 0.2 Absolute Basos (auto) 0.0 Seg Neutrophils % 58.7 Sodium Potassium Chloride Carbon Dioxide Anion Gap BUN Creatinine Est GFR ( Amer) Est GFR (MDRD) Non-Af Glucose POC Glucose 102 133 H Calcium Chest X-Ray 04/30/19 07:05 IMPRESSION: CARDIAC ENLARGEMENT. VASCULAR CONGESTION. Foot X-Ray 04/30/19 09:29 IMPRESSION: No evidence of osteomyelitis. Chest X-Ray 04/30/19 14:46 IMPRESSION: Interval placement of right subclavian vascular catheter, tip projecting over the right atrium. Otherwise stable AP portable examination with mild diffuse interstitial pulmonary opacity, likely edema, and gross cardiomegaly. Status post median sternotomy. Abdomen/Pelvis CT 05/05/19 00:00 IMPRESSION: 1. Similar appearance compared to prior study. 2. Cardiomegaly and mild pleural fluid, suggests mild congestive failure. 3. Mildly heterogeneous liver, transient. See above. This is nonspecific. 4. Heavy atherosclerosis. 5. Pelvic findings are nonprogressive including what may be a gas and fluid containing diverticulum in the left hemipelvis. 6. No acute findings are suggested otherwise. Chest X-Ray 05/11/19 00:00 IMPRESSION: Stable cardiomegaly. IMPRESSION/RECOMMENDATION: 1. Nosebleeds. This is recurrent, and seems to be slightly more than before. The patient is back on Eliquis . Continue Plavix. 2. Abdominal pain: No severe pathology by EGD. Patient has intermittent nonspecific abdominal pain, which is mild. There is no nausea vomiting. 3. CHRONIC DIASTOLIC HEART FAILURE: At present compensated. At present the patient's ejection fraction is normal. 4. Paroxysmal atrial fibrillation: At present the patient is in sinus rhythm. 5. HYPERTENSION: Well controlled. Continue her current medications. 6. CORONARY ARTERY DISEASE: Prior history of myocardial infarction and history of coronary artery bypass graft surgery. No anginal symptoms. 7ut would recommend since the patient is not a good historian to get a IV Lexiscan Cardiolite stress test which is been ordered for tomorrow. 8. NONCOMPLIANCE.: The importance of compliance with diet and medications stressed with the patient. 9. CHRONIC OBSTRUCTIVE PULMONARY DISEASE: Continue current inhalers. 10. PERIPHERAL ARTERIAL DISEASE.: Patient with nonhealing ulcers of her both feet./Heels. 11. OBSTRUCTIVE SLEEP APNEA we will continue the patient on CPAP and continue the patient's Symbicort and Advair Diskus. 12.. DIABETES MELLITUS with peripheral arterial disease. Stable Medications reviewed medical regimen and management plan discussed with Dr. Vaz covering Dr. Moffett. Medical decision making is of moderate complexity. 40 minutes spent on this patient more than 50% of time spent in direct patient care. Will follow.
[2019-05-13] MEDS: ATORVASTATIN CALCIUM 20 MG TABLET PO SCH (21:48)
[2019-05-13] MEDS: INSULIN GLARGINE,HUM.REC.ANLOG 1,000 UNIT/10 ML VIAL SUBCUT SCH (21:48)
[2019-05-14] MEDS: GABAPENTIN 300 MG CAPSULE PO SCH ×3 (05:30→22:30)
[2019-05-14] MEDS: PANTOPRAZOLE SODIUM 40 MG TABLET.DR PO SCH (05:30)
[2019-05-14] MEDS: SUCRALFATE 1 GM TABLET PO SCH ×4 (05:30→17:26)
[2019-05-14] MEDS: OXYCODONE-ACETAMINOPHEN 5-325 MG TABLET PO PRN ×2 (05:30→19:58)
[2019-05-14 06:18] LABS: ABSOLUTE EOSINOPHILS # (AUTO) 0.2 10^3/uL (0.0-0.6); ABSOLUTE LYMPHOCYTES (AUTO) 1.2 10^3/uL (0.5-4.7); ABSOLUTE MONOCYTES (AUTO) 0.6 10^3/uL (0.1-1.4); ABSOLUTE NEUT (AUTO) 3.1 10^3/uL (1.7-8.2); BASOPHILS % (AUTO) 0.7 % (0-2); EOSINOPHILS % (AUTO) 3.4 % (0-6); HEMATOCRIT 25.2 % (36.0-47.0); LYMPHOCYTES % (AUTO) 22.8 % (13-45); MEAN CORPUSCULAR HEMOGLOBIN 29.9 pg (27.0-33.4); MEAN CORPUSCULAR HGB CONC 31.7 g/dL (32.0-36.0); MEAN CORPUSCULAR VOLUME 94 fl (80-97); MONOCYTES % (AUTO) 11.1 % (3-13); PLATELET COUNT 198 10^3/uL (150-450); RED BLOOD COUNT 2.67 10^6/uL (3.72-5.28); RED CELL DISTRIBUTION WIDTH 16.6 % (11.5-14.0); TOTAL CELLS COUNTED % (AUTO) 100 %
[2019-05-14 06:44] LABS: ALBUMIN 3.3 g/dL (3.5-5.0); ALKALINE PHOSPHATASE 396 U/L (38-126); ANION GAP 8 (5-19); ASPARTATE AMINO TRANSFERASE 51 U/L (14-36); BILIRUBIN,DIRECT 0.3 mg/dL (0.0-0.4); BILIRUBIN,TOTAL 0.5 mg/dL (0.2-1.3); BLOOD UREA NITROGEN 47 mg/dL (7-20); CALCIUM 9.3 mg/dL (8.4-10.2); CARBON DIOXIDE 26 mmol/L (22-30); CHLORIDE 108 mmol/L (98-107); POTASSIUM 5.4 mmol/L (3.6-5.0)
[2019-05-14 06:48] LABS: GLUCOSE 59 mg/dL (75-110)
[2019-05-14] MEDS ORDERED: NORMAL SALINE 250 ML IV PRN (08:25)
[2019-05-14] MEDS: INSULIN LISPRO 100 UNIT/ML 3 ML VIAL SUBCUT SCH ×4 (10:58→22:08)
[2019-05-14] MEDS: MULTIVITAMIN TABLET PO SCH (11:07)
[2019-05-14] MEDS: FERROUS SULFATE 325 MG TABLET PO SCH (11:07)
[2019-05-14] MEDS: CLOPIDOGREL BISULFATE 75 MG TABLET PO SCH (11:07)
[2019-05-14] MEDS: MESALAMINE 400 MG CAPSULE.DR PO SCH ×3 (11:08→17:26)
[2019-05-14] MEDS: APIXABAN 2.5 MG TABLET PO SCH ×2 (11:08→17:27)
[2019-05-14] MEDS: ASCORBIC ACID 500 MG TABLET PO SCH (11:08)
[2019-05-14] MEDS: ESCITALOPRAM OXALATE 10 MG TABLET PO SCH (11:08)
[2019-05-14] MEDS: VALSARTAN 160 MG TABLET PO SCH (11:09)
[2019-05-14] MEDS: FUROSEMIDE 40 MG TABLET PO SCH ×2 (11:09→17:27)
[2019-05-14] MEDS: AMLODIPINE BESYLATE 10 MG TABLET PO SCH (11:09)
--- NOTE | 2019-05-14 16:50 | Progress Note ---
Provider Note Provider Note: CARDIOLOGY PROGRESS NOTE by Dr. Charlette Harding on 05/14/2019. OBJECTIVE: The patient continues to have nosebleeds. As per the nurses aide the patient has had quite a lot of bleeding from the nose. She also complains of intermittent abdominal pain. The patient has been started on mesalamine for this. ENT is not available as yet to see the patient. There is no recurrence of atrial fibrillation. There is no anginal symptoms. There is no PND orthopnea. Attempts to take the patient off supplemental oxygen causes more shortness of breath and the patient hence the patient back on oxygen. There is no recurrence of atrial fibrillation. There is no ventricular arrhythmias seen. There is no TIA CVA symptoms. There is no PND orthopnea or leg edema. PHYSICAL EXAMINATION: The patient is moderately obese. In at present in no acute distress. Selected Entries 05/14/19 05/14/19 07:19 10:00 Temperature 97.9 F Temperature Oral Source Pulse Rate 62 Respiratory 16 Rate Blood Pressure 125/56 L Blood Pressure 79 Mean BP Location Right Arm BP Position Supine O2 Sat by Pulse 98 Oximetry Oxygen Delivery Nasal Cannula Method ( includes room air) Oxygen Flow 2 Rate HEENT: Head is atraumatic/normocephalic. EYES: Pupils are equal round regular reactive to light accommodation external ocular movements are normal. There is no conjunctival pallor there is no scleral icterus. ENT is negative. Neck is supple there is no JVD carotids are equal there is no bruit there is no lymphadenopathy there is no goiter trachea is central.Lungs: There is diminished air entry and prolonged expiration without any rhonchi rales or wheezing. On percussion there is hyperresonance throughout. There are no rales of CHF. HEART: S1-S2 is heard there is no S3 gallop there is no S4 gallop there is a systolic murmur in the left sternal border and apex there is no rub. ABDOMEN: Abdomen is soft nontender there is no hepatosplenomegaly. Bowel sounds well heard there are no tender areas of masses. EXTREMITIES femorals are diminished. Leg pulses are difficult to palpate. There are no femoral bruits. There is dressing on the ulcers of both nonhealing ulcers of the feet which are. There is no pedal edema. There is no DVT or cellulitis there is no calf tenderness. There is no cyanosis or clubbing.PERIODONTAL ASSISTANT: The patient is awake alert oriented 3 with no focal deficits. PSYCHIATRIC: The patient's judgment and insight are intact her affect is normal. Labs- All tests 24 hr 05/13/19 05/14/19 05/14/19 21:15 05:40 05:40 WBC 5.0 RBC 2.67 L Hgb 8.0 L Hct 25.2 L MCV 94 MCH 29.9 MCHC 31.7 L RDW 16.6 H Plt Count 198 Lymph % (Auto) 22.8 [place] % (Auto) 11.1 Eos % (Auto) 3.4 Baso % (Auto) 0.7 Absolute Neuts (auto) 3.1 Absolute Lymphs (auto) 1.2 Absolute Monos (auto) 0.6 Absolute Eos (auto) 0.2 Absolute Basos (auto) 0.0 Seg Neutrophils % 62.0 Sodium 142.1 Potassium 5.4 H Chloride 108 H Carbon Dioxide 26 Anion Gap 8 BUN 47 H Creatinine 1.21 Est GFR ( Amer) 54 L Est GFR (MDRD) Non-Af 45 L Glucose 59 L POC Glucose 139 H Calcium 9.3 Total Bilirubin 0.5 Direct Bilirubin 0.3 Neonat Total Bilirubin Not Reportable Neonat Direct Bilirubin Not Reportable Neonat Indirect Bili Not Reportable AST 51 H ALT 38 Alkaline Phosphatase 396 H Total Protein 8.0 Albumin 3.3 L Blood Type Antibody Screen Crossmatch 05/14/19 05/14/19 05/14/19 07:13 07:25 09:00 WBC RBC Hgb Hct MCV MCH MCHC RDW Plt Count Lymph % (Auto) [place] % (Auto) Eos % (Auto) Baso % (Auto) Absolute Neuts (auto) Absolute Lymphs (auto) Absolute Monos (auto) Absolute Eos (auto) Absolute Basos (auto) Seg Neutrophils % Sodium Potassium Chloride Carbon Dioxide Anion Gap BUN Creatinine Est GFR ( Amer) Est GFR (MDRD) Non-Af Glucose POC Glucose 89 113 H Calcium Total Bilirubin Direct Bilirubin Neonat Total Bilirubin Neonat Direct Bilirubin Neonat Indirect Bili AST ALT Alkaline Phosphatase Total Protein Albumin Blood Type A2subB POSITIVE Antibody Screen NEGATIVE Crossmatch See Detail 05/14/19 11:18 WBC RBC Hgb Hct MCV MCH MCHC RDW Plt Count Lymph % (Auto) [place] % (Auto) Eos % (Auto) Baso % (Auto) Absolute Neuts (auto) Absolute Lymphs (auto) Absolute Monos (auto) Absolute Eos (auto) Absolute Basos (auto) Seg Neutrophils % Sodium Potassium Chloride Carbon Dioxide Anion Gap BUN Creatinine Est GFR ( Amer) Est GFR (MDRD) Non-Af Glucose POC Glucose 103 Calcium Total Bilirubin Direct Bilirubin Neonat Total Bilirubin Neonat Direct Bilirubin Neonat Indirect Bili AST ALT Alkaline Phosphatase Total Protein Albumin Blood Type Antibody Screen Crossmatch Chest X-Ray 04/30/19 07:05 IMPRESSION: CARDIAC ENLARGEMENT. VASCULAR CONGESTION. Foot X-Ray 04/30/19 09:29 IMPRESSION: No evidence of osteomyelitis. Chest X-Ray 04/30/19 14:46 IMPRESSION: Interval placement of right subclavian vascular catheter, tip projecting over the right atrium. Otherwise stable AP portable examination with mild diffuse interstitial pulmonary opacity, likely edema, and gross car diomegaly. Status post median sternotomy. Abdomen/Pelvis CT 05/05/19 00:00 IMPRESSION: 1. Similar appearance compared to prior study. 2. Cardiomegaly and mild pleural fluid, suggests mild congestive failure. 3. Mildly heterogeneous liver, transient. See above. This is nonspecific. 4. Heavy atherosclerosis. 5. Pelvic findings are nonprogressive including what may be a gas and fluid containing diverticulum in the left hemipelvis. 6. No acute findings are suggested otherwise. Chest X-Ray 05/11/19 00:00 IMPRESSION: Stable cardiomegaly. IMPRESSION/RECOMMENDATION: 1. Nosebleeds. This is recurrent, and seems to be slightly more than before. ENT is not available for consultation. We will stop the patient's Eliquis for now.. Continue Plavix. 2. Abdominal pain: No severe pathology by EGD. Patient has intermittent nonspecific abdominal pain, which is mild. There is no nausea vomiting. The patient has been started on mesalamine. 3. CHRONIC DIASTOLIC HEART FAILURE: At present compensated. At present the patient's ejection fraction is normal. 4. ANEMIA: The patient is being transfused with blood today. 5. Paroxysmal atrial fibrillation: At present the patient is in sinus rhythm. 6. HYPERTENSION: Well controlled. Continue her current medications. 7. CORONARY ARTERY DISEASE: Prior history of myocardial infarction and history of coronary artery bypass graft surgery. No anginal symptoms. 8.but would recommend since the patient is not a good historian to get a IV Lexiscan Cardiolite stress test later.. 9. NONCOMPLIANCE.: The importance of compliance with diet and medications stressed with the patient. 10. CHRONIC OBSTRUCTIVE PULMONARY DISEASE: Continue current inhalers. 11. PERIPHERAL ARTERIAL DISEASE.: Patient with nonhealing ulcers of her both feet./Heels. 12. OBSTRUCTIVE SLEEP APNEA we will continue the patient on CPAP and continue the patient's Symbicort and Advair Diskus. 13.. DIABETES MELLITUS with peripheral arterial disease. Stable 14. Obesity. Note medications reviewed. Medications adjusted medication stopped. Case discussed with Dr. Moffett with attending physician. Medical regimen and management plan discussed with attending physician. Medical decision making is of moderate to high complexity. 40 minutes spent as patient more than 50% of time spent in direct patient care. Will follow.
[2019-05-14] MEDS: PATIROMER 8.4 GM SUSP PACKET PO SCH (17:26)
--- NOTE | 2019-05-14 18:57 | PDOC PROGRESS REPORT ---
Subjective Progress Note for:: 05/13/19 Subjective:: Patient reported less nose bleed so far today. She continue to experience abdominal pain. No nausea or vomiting. No fever or chills. No chest pain or difficulty with breathing. Reason For Visit: ACUTE SYSTOLIC HEART FAILURE,H/O CHRONIC COMBINED Physical Exam Vital Signs: Temp Pulse Resp BP Pulse Ox 98.1 F 64 12 127/57 H 97 05/13/19 19:20 05/13/19 19:20 05/13/19 19:20 05/13/19 19:20 05/13/19 19:20 Intake & Output 05/12/19 05/13/19 05/14/19 06:59 06:59 06:59 Intake Total 957 942 600 Output Total 2400 1250 320 Balance -1443 -308 280 Weight 93.6 kg 93.7 kg Physical Exam: Head exam: PRESENT: atraumatic, normocephalic Eye exam: PRESENT: conjunctiva pink. ABSENT: pallor, scleral icterus Ear exam: PRESENT: normal external ear exam Mouth exam: PRESENT: moist Nose exam: Turbinate swelling No evidence of fresh blooding. Teeth exam: PRESENT: poor dentition Respiratory exam: PRESENT: clear to auscultation jerrica, decreased breath sounds - at lung bases Cardiovascular exam: PRESENT: RRR. ABSENT: diastolic murmur, rubs, systolic murmur GI/Abdominal exam: PRESENT: normal bowel sounds, soft, nonspecific tenderness to palpation over epigastrium and lower quadrants regions ABSENT: distended, guarding, mass, organomegaly, rebound Extremities exam: PRESENT: pedal edema - comparatively improved Neurological exam: PRESENT: alert, awake, oriented to person, oriented to place, oriented to time, oriented to situation, CN II-XII grossly intact. ABSENT: motor sensory deficit Psychiatric exam: PRESENT: appropriate affect, normal mood. ABSENT: homicidal ideation, suicidal ideation Skin exam: PRESENT: dry, warm, other - improving left calcaneal region diabetic ulcer. Results Laboratory Results: 05/13/19 08:00 05/13/19 05:00 05/13/19 05/13/19 05:00 08:00 WBC 5.5 RBC 2.67 L Hgb 8.1 L Hct 25.1 L MCV 94 MCH 30.4 MCHC 32.3 RDW 16.6 H Plt Count 210 Seg Neutrophils % 58.7 Sodium 141.0 Potassium 5.4 H Chloride 107 Carbon Dioxide 27 Anion Gap 7 BUN 45 H Creatinine 1.24 Est GFR ( Amer) 53 L Glucose 86 Calcium 9.1 04/30/19 04/30/19 04/30/19 07:46 09:13 17:15 Creatine Kinase CK-MB (CK-2) Troponin I Cancelled < 0.012 NT-Pro-B Natriuret Pep 5490 H 04/30/19 04/30/19 05/01/19 23:03 23:03 11:39 Creatine Kinase 33 34 CK-MB (CK-2) 0.53 Troponin I < 0.012 NT-Pro-B Natriuret Pep 05/01/19 05/09/19 05/09/19 11:39 20:15 20:15 Creatine Kinase 118 CK-MB (CK-2) 0.36 0.93 Troponin I < 0.012 0.012 NT-Pro-B Natriuret Pep 05/10/19 05/10/19 05/10/19 02:30 02:30 09:00 Creatine Kinase 90 87 CK-MB (CK-2) 0.80 Troponin I < 0.012 NT-Pro-B Natriuret Pep 05/10/19 09:00 Creatine Kinase CK-MB (CK-2) 0.73 Troponin I 0.013 NT-Pro-B Natriuret Pep Impressions: Foot X-Ray 04/30/19 09:29 IMPRESSION: No evidence of osteomyelitis. Abdomen/Pelvis CT 05/05/19 00:00 IMPRESSION: 1. Similar appearance compared to prior study. 2. Cardiomegaly and mild pleural fluid, suggests mild congestive failure. 3. Mildly heterogeneous liver, transient. See above. This is nonspecific. 4. Heavy atherosclerosis. 5. Pelvic findings are nonprogressive including what may be a gas and fluid c ontaining diverticulum in the left hemipelvis. 6. No acute findings are suggested otherwise. Chest X-Ray 05/11/19 00:00 IMPRESSION: Stable cardiomegaly. Assessment & Plan - Diagnosis (1) Upper abdominal pain Is this a current diagnosis for this admission?: Yes (2) Acute on chronic combined systolic and diastolic CHF, NYHA class 3 Is this a current diagnosis for this admission?: Yes (3) Decubitus ulcer of left heel, stage 4 Is this a current diagnosis for this admission?: Yes (4) Diabetes mellitus type 2 in obese Is this a current diagnosis for this admission?: Yes (5) Hypertension Qualifiers: Hypertension type: essential hypertension Qualified Code(s): I10 - Essential (primary) hypertension Is this a current diagnosis for this admission?: Yes (6) CAD (coronary artery disease) Qualifiers: Coronary Disease-Associated Artery/Lesion type: unspecified vessel or lesion type [place] vs. transplanted heart: [place] heart Associated angina: without angina Qualified Code(s): I25.10 - Atherosclerotic heart disease of [place] coronary artery without angina pectoris Is this a current diagnosis for this admission?: Yes (7) Hyperlipidemia Qualifiers: Hyperlipidemia type: unspecified Qualified Code(s): E78.5 - Hyperlipidemia, unspecified Is this a current diagnosis for this admission?: Yes (8) S/P CABG (coronary artery bypass graft) Is this a current diagnosis for this admission?: Yes (9) Chronic use of opiate for therapeutic purpose Is this a current diagnosis for this admission?: Yes (10) Hyperkalemia Is this a current diagnosis for this admission?: Yes (11) Antral gastritis Is this a current diagnosis for this admission?: Yes (12) Nasal bleeding Is this a current diagnosis for this admission?: Yes - Time Time Spent with patient: 25-34 minutes Level of Care: IMCU Medications reviewed and adjusted accordingly: Yes Anticipated discharge: Home with Homehealth Within: Other - Inpatient Certification Based on my medical assessment, after consideration of the patient's comorbidities, presenting symptoms, or acuity I expect that the services needed warrant INPATIENT care.: Yes I certify that my determination is in accordance with my understanding of Medicare's requirements for reasonable and necessary INPATIENT services [42 CFR 412.3e].: Yes Medical Necessity: Significant Comorbidiites Make Outpatient Treatment Too Risky, Need Close Monitoring Due to Risk of Patient Decompensation, Need For Continuous Telemetry Monitoring, Risk of Complication if Not Cared For in Hospital, Risk of Diagnosis Which Will Require Inpatient Eval/Care/Monitoring Post Hospital Care: D/C Cashier Ticket Selling 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 Monitor nose bleed and if persistent consider discontinuation of Eliquis. Discussed case with Dr. Mayer, product safety officer. Obtain CBC with diff and CMP in AM.
--- NOTE | 2019-05-14 19:06 | PDOC PROGRESS REPORT ---
Subjective Progress Note for:: 05/14/19 Subjective:: Patient MICHAEL reported significant nose bleed today. She reported development of chest heaviness and discomfort when she was taken off supplemental oxygen as instructed to deter nose bleed. She had to get back on supplemental oxygen due to her symptoms. She continue to experience abdominal pain. No nausea or vomiting. No fever or chills. Reason For Visit: ACUTE SYSTOLIC HEART FAILURE,H/O CHRONIC COMBINED Physical Exam Vital Signs: Temp Pulse Resp BP Pulse Ox 98.4 F 74 18 128/76 H 99 05/14/19 16:30 05/14/19 16:30 05/14/19 16:30 05/14/19 16:30 05/14/19 16:30 Intake & Output 05/13/19 05/14/19 05/15/19 06:59 06:59 06:59 Intake Total 942 1280 1480 Output Total 1250 2145 1500 Balance -308 -865 -20 Weight 93.7 kg 96.4 kg Physical Exam: Head exam: PRESENT: atraumatic, normocephalic Eye exam: PRESENT: conjunctiva pink. ABSENT: pallor, scleral icterus Ear exam: PRESENT: normal external ear exam Mouth exam: PRESENT: moist Nose exam: Turbinate swelling No evidence of fresh blooding. Teeth exam: PRESENT: poor dentition Respiratory exam: PRESENT: clear to auscultation [place], decreased breath sounds - at lung bases Cardiovascular exam: PRESENT: RRR. ABSENT: diastolic murmur, rubs, systolic murmur GI/Abdominal exam: PRESENT: normal bowel sounds, soft, nonspecific tenderness to palpation over epigastrium and lower quadrants regions ABSENT: distended, guarding, mass, organomegaly, rebound Extremities exam: PRESENT: pedal edema - comparatively improved Neurological exam: PRESENT: alert, awake, oriented to person, oriented to place, oriented to time, oriented to situation, CN II-XII grossly intact. ABSENT: motor sensory deficit Psychiatric exam: PRESENT: appropriate affect, normal mood. ABSENT: homicidal ideation, suicidal ideation Skin exam: PRESENT: dry, warm, other - improving left calcaneal region diabetic ulcer. Results Laboratory Results: 05/14/19 05:40 05/14/19 05:40 05/14/19 05/14/19 05/14/19 05:40 05:40 09:00 WBC 5.0 RBC 2.67 L Hgb 8.0 L Hct 25.2 L MCV 94 MCH 29.9 MCHC 31.7 L RDW 16.6 H Plt Count 198 Seg Neutrophils % 62.0 Sodium 142.1 Potassium 5.4 H Chloride 108 H Carbon Dioxide 26 Anion Gap 8 BUN 47 H Creatinine 1.21 Est GFR ( Amer) 54 L Glucose 59 L Calcium 9.3 Total Bilirubin 0.5 AST 51 H Alkaline Phosphatase 396 H Total Protein 8.0 Albumin 3.3 L Blood Type A2subB POSITIVE Antibody Screen NEGATIVE 04/30/19 04/30/19 04/30/19 07:46 09:13 17:15 Creatine Kinase CK-MB (CK-2) Troponin I Cancelled < 0.012 NT-Pro-B Natriuret Pep 5490 H 04/30/19 04/30/19 05/01/19 23:03 23:03 11:39 Creatine Kinase 33 34 CK-MB (CK-2) 0.53 Troponin I < 0.012 NT-Pro-B Natriuret Pep 05/01/19 05/09/19 05/09/19 11:39 20:15 20:15 Creatine Kinase 118 CK-MB (CK-2) 0.36 0.93 Troponin I < 0.012 0.012 NT-Pro-B Natriuret Pep 05/10/19 05/10/19 05/10/19 02:30 02:30 09:00 Creatine Kinase 90 87 CK-MB (CK-2) 0.80 Troponin I < 0.012 NT-Pro-B Natriuret Pep 05/10/19 09:00 Creatine Kinase CK-MB (CK-2) 0.73 Troponin I 0.013 NT-Pro-B Natriuret Pep Impressions: Foot X-Ray 04/30/19 09:29 IMPRESSION: No evidence of osteomyelitis. Abdomen/Pelvis CT 05/05/19 00:00 IMPRESSION: 1. Similar appearance compared to prior study. 2. Cardiomegaly and mild pleural fluid, suggests mild congestive failure. 3. Mildly heterogeneous liver, transient. See above. This is nonspecific. 4. Heavy atherosclerosis. 5. Pelvic findings are nonprogressive including what may be a gas and fluid containing diverticulum in the left hemipelvis. 6. No acute findings are suggested otherwise. Chest X-Ray 05/11/19 00:00 IMPRESSION: Stable cardiomegaly. Assessment & Plan - Diagnosis (1) Upper abdominal pain Is this a current diagnosis for this admission?: Yes (2) Acute on chronic combined systolic and diastolic CHF, NYHA class 3 Is this a current diagnosis for this admission?: Yes (3) Decubitus ulcer of left heel, stage 4 Is this a current diagnosis for this admission?: Yes (4) Diabetes mellitus type 2 in obese Is this a current diagnosis for this admission?: Yes (5) Hypertension Qualifiers: Hypertension type: essential hypertension Qualified Code(s): I10 - Essential (primary) hypertension Is this a current diagnosis for this admission?: Yes (6) CAD (coronary artery disease) Qualifiers: Coronary Disease-Associated Artery/Lesion type: unspecified vessel or lesion type [place] vs. transplanted heart: [place] heart Associated angina: without angina Qualified Code(s): I25.10 - Atherosclerotic heart disease of [place] coronary artery without angina pectoris Is this a current diagnosis for this admission?: Yes (7) Hyperlipidemia Qualifiers: Hyperlipidemia type: unspecified Qualified Code(s): E78.5 - Hyperlipidemia, unspecified Is this a current diagnosis for this admission?: Yes (8) S/P CABG (coronary artery bypass graft) Is this a current diagnosis for this admission?: Yes (9) Chronic use of opiate for therapeutic purpose Is this a current diagnosis for this admission?: Yes (10) Hyperkalemia Is this a current diagnosis for this admission?: Yes (11) Antral gastritis Is this a current diagnosis for this admission?: Yes (12) Nasal bleeding Is this a current diagnosis for this admission?: Yes (13) Abnormal CT scan, gastrointestinal tract Is this a current diagnosis for this admission?: Yes Plan: Consider possible inflammatory bowel disease ad s possible cause of her abdominal pain. In view of the need for delayed colonoscopy, patient will be started on trial of Mesalamine therapy. - Time Time Spent with patient: 35 or more minutes Level of Care: IMCU Medications reviewed and adjusted accordingly: Yes Anticipated discharge: Home with Homehealth Within: Other - Inpatient Certification Based on my medical assessment, after consideration of the patient's comorbidities, presenting symptoms, or acuity I expect that the services needed warrant INPATIENT care.: Yes I certify that my determination is in accordance with my understanding of Medicare's requirements for reasonable and necessary INPATIENT services [42 CFR 412.3e].: Yes Medical Necessity: Significant Comorbidiites Make Outpatient Treatment Too Risky, Need Close Monitoring Due to Risk of Patient Decompensation, Need For Continuous Telemetry Monitoring, Need for Nebulizer Therapy and Monitoring of Response, Risk of Complication if Not Cared For in Hospital, Risk of Diagnosis Which Will Require Inpatient Eval/Care/Monitoring Post Hospital Care: D/C [employer] Documentation - Plan Summary Plan Summary: D/C Tracey. Transfuse 2 units PRBC. Start on trial of Mesalamine 800 mg p.o tid based on her continue abdominal pain, CT abdomen and pelvis findings, and c linical examination. Continue all other current medication management.
[2019-05-14] MEDS: INSULIN GLARGINE,HUM.REC.ANLOG 1,000 UNIT/10 ML VIAL SUBCUT SCH (22:08)
[2019-05-14] MEDS: ATORVASTATIN CALCIUM 20 MG TABLET PO SCH (22:30)
[2019-05-15 02:30] LABS: ABSOLUTE EOSINOPHILS # (AUTO) 0.2 10^3/uL (0.0-0.6); ABSOLUTE LYMPHOCYTES (AUTO) 1.2 10^3/uL (0.5-4.7); ABSOLUTE MONOCYTES (AUTO) 0.6 10^3/uL (0.1-1.4); BASOPHILS % (AUTO) 0.4 % (0-2); EOSINOPHILS % (AUTO) 2.6 % (0-6); HEMATOCRIT 29.4 % (36.0-47.0); HEMOGLOBIN 9.5 g/dL (12.0-15.5); LYMPHOCYTES % (AUTO) 20.3 % (13-45); MEAN CORPUSCULAR HGB CONC 32.4 g/dL (32.0-36.0); MEAN CORPUSCULAR VOLUME 92 fl (80-97); MONOCYTES % (AUTO) 9.7 % (3-13); PLATELET COUNT 193 10^3/uL (150-450); RED BLOOD COUNT 3.19 10^6/uL (3.72-5.28); TOTAL CELLS COUNTED % (AUTO) 100 %
[2019-05-15] MEDS: OXYCODONE-ACETAMINOPHEN 5-325 MG TABLET PO PRN ×2 (05:39→17:31)
[2019-05-15] MEDS: GABAPENTIN 300 MG CAPSULE PO SCH ×3 (05:39→22:04)
[2019-05-15] MEDS: SUCRALFATE 1 GM TABLET PO SCH ×5 (05:39→23:37)
[2019-05-15] MEDS: PANTOPRAZOLE SODIUM 40 MG TABLET.DR PO SCH (05:41)
[2019-05-15] MEDS: INSULIN LISPRO 100 UNIT/ML 3 ML VIAL SUBCUT SCH ×4 (07:38→21:57)
[2019-05-15] MEDS: FUROSEMIDE 40 MG TABLET PO SCH ×2 (09:15→17:32)
[2019-05-15] MEDS: FERROUS SULFATE 325 MG TABLET PO SCH (09:15)
[2019-05-15] MEDS: MULTIVITAMIN TABLET PO SCH (09:15)
[2019-05-15] MEDS: ESCITALOPRAM OXALATE 10 MG TABLET PO SCH (09:15)
[2019-05-15] MEDS: VALSARTAN 160 MG TABLET PO SCH (09:15)
[2019-05-15] MEDS: AMLODIPINE BESYLATE 10 MG TABLET PO SCH (09:16)
[2019-05-15] MEDS: CLOPIDOGREL BISULFATE 75 MG TABLET PO SCH (09:16)
[2019-05-15] MEDS: ASCORBIC ACID 500 MG TABLET PO SCH (09:16)
[2019-05-15] MEDS: MESALAMINE 400 MG CAPSULE.DR PO SCH ×3 (09:16→17:32)
--- NOTE | 2019-05-15 14:15 | Progress Note ---
Provider Note Provider Note: CARDIOLOGY PROGRESS NOTE by Dr. Charlette Harding on 05/15/2019. OBJECTIVE: The patient states since the stopping of the Eliquis she has had no further nosebleeds. There is no chest pain discomfort. She continues to have vague abdominal pain with nausea. There is no vomiting. There is no diarrhea. The patient denies any shortness of breath PND orthopnea. There is no arrhythmia seen on the monitor. There is no TIA CVA symptoms. There is no recurrence of atrial fibrillation. PHYSICAL EXAMINATION: The patient moderately obese. In no acute distress. She is well-groomed. Selected Entries 05/15/19 15:09 Temperature 97.9 F Temperature Oral Source Pulse Rate 64 Respiratory 16 Rate Blood Pressure 137/63 H Blood Pressure 87 Mean BP Location Right Arm BP Position Supine O2 Sat by Pulse 98 Oximetry Oxygen Delivery Room Air Method HEENT: Head is atraumatic/normocephalic. EYES: Pupils are equal round regular reactive to light accommodation external ocular movements are normal. There is no conjunctival pallor there is no scleral icterus. ENT is negative. Neck is supple there is no JVD carotids are equal there is no bruit there is no lymphadenopathy there is no goiter trachea is central.Lungs: There is diminished air entry and prolonged expiration without any rhonchi rales or wheezing. On percussion there is hyperresonance throughout. There are no rales of CHF. HEART: S1-S2 is heard there is no S3 gallop there is no S4 gallop there is a sys tolic murmur in the left sternal border and apex there is no rub. ABDOMEN: Abdomen is soft nontender there is no hepatosplenomegaly. Bowel sounds well heard there are no tender areas of masses. EXTREMITIES femorals are diminished. Leg pulses are difficult to palpate. There are no femoral bruits. There is dressing on the ulcers of both nonhealing ulcers of the feet which are. There is no pedal edema. There is no DVT or cellulitis there is no calf tenderness. 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 PSYCHIATRIC: The patient's judgment and insight are intact her affect is normal. Labs- Entire Visit 04/30/19 04/30/19 04/30/19 07:22 07:46 07:46 WBC RBC Hgb Hct MCV MCH MCHC RDW Plt Count Lymph % (Auto) Bertie % (Auto) Eos % (Auto) Baso % (Auto) Reticulocyte # Absolute Neuts (auto) Absolute Lymphs (auto) Absolute Monos (auto) Absolute Eos (auto) Absolute Basos (auto) Seg Neutrophils % Platelet Estimate Retic Count (auto) PT INR APTT Carbonic Acid HCO3/H2CO3 Ratio ABG pH ABG pCO2 ABG pO2 ABG HCO3 ABG Total CO2 ABG O2 Saturation ABG Base Excess FiO2 Sodium Cancelled Potassium Cancelled Chloride Cancelled Carbon Dioxide Cancelled Anion Gap Cancelled BUN Cancelled Creatinine Cancelled Est GFR ( Amer) Cancelled Est GFR (Non-Af Amer) Cancelled Est GFR (MDRD) Non-Af Cancelled Glucose Cancelled POC Glucose Hemoglobin A1c % Calcium Cancelled Magnesium Cancelled Iron TIBC % Saturation Ferritin Total Bilirubin Cancelled Direct Bilirubin Cancelled Neonat Total Bilirubin Cancelled Neonat Direct Bilirubin Cancelled Neonat Indirect Bili Cancelled AST Cancelled ALT Cancelled Alkaline Phosphatase Cancelled Creatine Kinase CK-MB (CK-2) Troponin I Cancelled NT-Pro-B Natriuret Pep Total Protein Cancelled Albumin Cancelled Triglycerides Cholesterol LDL Cholesterol Direct VLDL Cholesterol HDL Cholesterol Lipase Cancelled EGFR Cancelled Vitamin B12 Folate TSH Free T4 Urine Color YELLOW Urine Appearance SLIGHTLY-CLOUDY Urine pH 6.0 Ur Specific [place] 1.012 Urine Protein 100 H Urine Glucose (UA) NEGATIVE Urine Ketones NEGATIVE Urine Blood NEGATIVE Urine Nitrite NEGATIVE Urine Bilirubin NEGATIVE Urine Urobilinogen 4.0 H Ur Leukocyte Esterase LARGE H Urine WBC (Auto) 19 Urine RBC (Auto) 2 Urine Bacteria (Auto) TRACE Squamous Epi Cells Auto 3 Urine Mucus (Auto) RARE Urine Ascorbic Acid 40 H Stool Occult Blood Slides for Path Review Blood Type Antibody Screen Crossmatch 04/30/19 04/30/19 04/30/19 07:46 09:13 09:13 WBC Cancelled 7.6 RBC Cancelled 3.14 L Hgb Cancelled 9.5 L Hct Cancelled 28.7 L MCV Cancelled 92 MCH Cancelled 30.1 MCHC Cancelled 32.9 RDW Cancelled 17.0 H Plt Count Cancelled 235 Lymph % (Auto) Cancelled 14.1 Bertie % (Auto) Cancelled 6.4 Eos % (Auto) Cancelled 0.9 Baso % (Auto) Cancelled 0.4 Reticulocyte # Absolute Neuts (auto) Cancelled 6.0 Absolute Lymphs (auto) Cancelled 1.1 Absolute Monos (auto) Cancelled 0.5 Absolute Eos (auto) Cancelled 0.1 Absolute Basos (auto) Cancelled 0.0 Seg Neutrophils % Cancelled 78.2 H Platelet Estimate Cancelled Retic Count (auto) PT 15.2 INR 1.19 APTT Carbonic Acid HCO3/H2CO3 Ratio ABG pH ABG pCO2 ABG pO2 ABG HCO3 ABG Total CO2 ABG O2 Saturation ABG Base Excess FiO2 Sodium Potassium Chloride Carbon Dioxide Anion Gap BUN Creatinine Est GFR ( Amer) Est GFR (Non-Af Amer) Est GFR (MDRD) Non-Af Glucose POC Glucose Hemoglobin A1c % Calcium Magnesium Iron TIBC % Saturation Ferritin Total Bilirubin Direct Bilirubin Neonat Total Bilirubin Neonat Direct Bilirubin Neonat Indirect Bili AST ALT Alkaline Phosphatase Creatine Kinase CK-MB (CK-2) Troponin I NT-Pro-B Natriuret Pep Total Protein Albumin Triglycerides Cholesterol LDL Cholesterol Direct VLDL Cholesterol HDL Cholesterol Lipase EGFR Vitamin B12 Folate TSH Free T4 Urine Color Urine Appearance Urine pH Ur Specific [place] Urine Protein Urine Glucose (UA) Urine Ketones Urine Blood Urine Nitrite Urine Bilirubin Urine Urobilinogen Ur Leukocyte Esterase Urine WBC (Auto) Urine RBC (Auto) Urine Bacteria (Auto) Squamous Epi Cells Auto Urine Mucus (Auto) Urine Ascorbic Acid Stool Occult Blood Slides for Path Review Cancelled Blood Type Antibody Screen Crossmatch 04/30/19 04/30/19 04/30/19 09:13 09:13 16:54 WBC RBC Hgb Hct MCV MCH MCHC RDW Plt Count Lymph % (Auto) Bertie % (Auto) Eos % (Auto) Baso % (Auto) Reticulocyte # Absolute Neuts (auto) Absolute Lymphs (auto) Absolute Monos (auto) Absolute Eos (auto) Absolute Basos (auto) Seg Neutrophils % Platelet Estimate Retic Count (auto) PT INR APTT Carbonic Acid 1.13 HCO3/H2CO3 Ratio 22:1 ABG pH 7.45 ABG pCO2 37.6 ABG pO2 50.8 L ABG HCO3 25.5 H ABG Total CO2 26.6 H ABG O2 Saturation 87.7 L ABG Base Excess 1.5 FiO2 ROOM AIR Sodium 142.5 Potassium 4.6 Chloride 109 H Carbon Dioxide 24 Anion Gap 10 BUN 25 H Creatinine 0.76 Est GFR ( Amer) > 60 Est GFR (Non-Af Amer) Est GFR (MDRD) Non-Af > 60 Glucose 205 H POC Glucose Hemoglobin A1c % Calcium 9.8 Magnesium 2.2 Iron TIBC % Saturation Ferritin Total Bilirubin 1.1 Direct Bilirubin 0.3 Neonat Total Bilirubin Not Reportable Neonat Direct Bilirubin Not Reportable Neonat Indirect Bili Not Reportable AST 24 ALT 19 Alkaline Phosphatase 295 H Creatine Kinase CK-MB (CK-2) Troponin I < 0.012 NT-Pro-B Natriuret Pep Total Protein 8.7 H Albumin 3.9 Triglycerides Cholesterol LDL Cholesterol Direct VLDL Cholesterol HDL Cholesterol Lipase 24.1 EGFR Vitamin B12 Folate TSH Free T4 Urine Color Urine Appearance Urine pH Ur Specific [place] Urine Protein Urine Glucose (UA) Urine Ketones Urine Blood Urine Nitrite Urine Bilirubin Urine Urobilinogen Ur Leukocyte Esterase Urine WBC (Auto) Urine RBC (Auto) Urine Bacteria (Auto) Squamous Epi Cells Auto Urine Mucus (Auto) Urine Ascorbic Acid Stool Occult Blood Slides for Path Review Blood Type Antibody Screen Crossmatch 04/30/19 04/30/19 04/30/19 16:55 17:03 17:15 WBC RBC Hgb Hct MCV MCH MCHC RDW Plt Count Lymph % (Auto) Bertie % (Auto) Eos % (Auto) Baso % (Auto) Reticulocyte # Absolute Neuts (auto) Absolute Lymphs (auto) Absolute Monos (auto) Absolute Eos (auto) Absolute Basos (auto) Seg Neutrophils % Platelet Estimate Retic Count (auto) PT INR APTT Carbonic Acid HCO3/H2CO3 Ratio ABG pH ABG pCO2 ABG pO2 ABG HCO3 ABG Total CO2 ABG O2 Saturation ABG Base Excess FiO2 Sodium Potassium Chloride Carbon Dioxide Anion Gap BUN Creatinine Est GFR ( Amer) Est GFR (Non-Af Amer) Est GFR (MDRD) Non-Af Glucose POC Glucose 191 H Hemoglobin A1c % Calcium Magnesium Iron TIBC % Saturation Ferritin Total Bilirubin Direct Bilirubin Neonat Total Bilirubin Neonat Direct Bilirubin Neonat Indirect Bili AST ALT Alkaline Phosphatase Creatine Kinase CK-MB (CK-2) Troponin I NT-Pro-B Natriuret Pep 5490 H Total Protein Albumin Triglycerides Cholesterol LDL Cholesterol Direct VLDL Cholesterol HDL Cholesterol Lipase EGFR Vitamin B12 Folate TSH Free T4 Urine Color YELLOW Urine Appearance CLEAR Urine pH 7.0 Ur Specific [place] 1.011 Urine Protein 100 H Urine Glucose (UA) NEGATIVE Urine Ketones NEGATIVE Urine Blood NEGATIVE Urine Nitrite NEGATIVE Urine Bilirubin NEGATIVE Urine Urobilinogen 4.0 H Ur Leukocyte Esterase NEGATIVE Urine WBC (Auto) 0 Urine RBC (Auto) Urine Bacteria (Auto) Squamous Epi Cells Auto <1 Urine Mucus (Auto) RARE Urine Ascorbic Acid 20 H Stool Occult Blood Slides for Path Review Blood Type Antibody Screen Crossmatch 04/30/19 04/30/19 04/30/19 17:15 17:15 17:15 WBC RBC Hgb Hct MCV MCH MCHC RDW Plt Count Lymph % (Auto) Bertie % (Auto) Eos % (Auto) Baso % (Auto) Reticulocyte # Absolute Neuts (auto) Absolute Lymphs (auto) Absolute Monos (auto) Absolute Eos (auto) Absolute Basos (auto) Seg Neutrophils % Platelet Estimate Retic Count (auto) PT 15.5 H INR 1.22 APTT 30.3 Carbonic Acid HCO3/H2CO3 Ratio ABG pH ABG pCO2 ABG pO2 ABG HCO3 ABG Total CO2 ABG O2 Saturation ABG Base Excess FiO2 Sodium Potassium Chloride Carbon Dioxide Anion Gap BUN Creatinine Est GFR ( Amer) Est GFR (Non-Af Amer) Est GFR (MDRD) Non-Af Glucose POC Glucose Hemoglobin A1c % Calcium Magnesium 2.1 Iron TIBC % Saturation Ferritin Total Bilirubin Direct Bilirubin Neonat Total Bilirubin Neonat Direct Bilirubin Neonat Indirect Bili AST ALT Alkaline Phosphatase Creatine Kinase CK-MB (CK-2) Troponin I NT-Pro-B Natriuret Pep Total Protein Albumin Triglycerides Cholesterol LDL Cholesterol Direct VLDL Cholesterol HDL Cholesterol Lipase EGFR Vitamin B12 Folate TSH 1.28 Free T4 1.35 Urine Color Urine Appearance Urine pH Ur Specific [place] Urine Protein Urine Glucose (UA) Urine Ketones Urine Blood Urine Nitrite Urine Bilirubin Urine Urobilinogen Ur Leukocyte Esterase Urine WBC (Auto) Urine RBC (Auto) Urine Bacteria (Auto) Squamous Epi Cells Auto Urine Mucus (Auto) Urine Ascorbic Acid Stool Occult Blood Slides for Path Review Blood Type Antibody Screen Crossmatch 04/30/19 04/30/19 04/30/19 21:05 23:03 23:03 WBC RBC Hgb Hct MCV MCH MCHC RDW Plt Count Lymph % (Auto) Bertie % (Auto) Eos % (Auto) Baso % (Auto) Reticulocyte # Absolute Neuts (auto) Absolute Lymphs (auto) Absolute Monos (auto) Absolute Eos (auto) Absolute Basos (auto) Seg Neutrophils % Platelet Estimate Retic Count (auto) PT INR APTT Carbonic Acid HCO3/H2CO3 Ratio ABG pH ABG pCO2 ABG pO2 ABG HCO3 ABG Total CO2 ABG O2 Saturation ABG Base Excess FiO2 Sodium Potassium Chloride Carbon Dioxide Anion Gap BUN Creatinine Est GFR ( Amer) Est GFR (Non-Af Amer) Est GFR (MDRD) Non-Af Glucose POC Glucose 209 H Hemoglobin A1c % Calcium Magnesium Iron TIBC % Saturation Ferritin Total Bilirubin Direct Bilirubin Neonat Total Bilirubin Neonat Direct Bilirubin Neonat Indirect Bili AST ALT Alkaline Phosphatase Creatine Kinase 33 CK-MB (CK-2) 0.53 Troponin I < 0.012 NT-Pro-B Natriuret Pep Total Protein Albumin Triglycerides Cholesterol LDL Cholesterol Direct VLDL Cholesterol HDL Cholesterol Lipase EGFR Vitamin B12 Folate TSH Free T4 Urine Color Urine Appearance Urine pH Ur Specific [place] Urine Protein Urine Glucose (UA) Urine Ketones Urine Blood Urine Nitrite Urine Bilirubin Urine Urobilinogen Ur Leukocyte Esterase Urine WBC (Auto) Urine RBC (Auto) Urine Bacteria (Auto) Squamous Epi Cells Auto Urine Mucus (Auto) Urine Ascorbic Acid Stool Occult Blood Slides for Path Review Blood Type Antibody Screen Crossmatch 05/01/19 05/01/19 05/01/19 07:28 11:29 11:39 WBC RBC Hgb Hct MCV MCH MCHC RDW Plt Count Lymph % (Auto) Bertie % (Auto) Eos % (Auto) Baso % (Auto) Reticulocyte # Absolute Neuts (auto) Absolute Lymphs (auto) Absolute Monos (auto) Absolute Eos (auto) Absolute Basos (auto) Seg Neutrophils % Platelet Estimate Retic Count (auto) PT INR APTT Carbonic Acid HCO3/H2CO3 Ratio ABG pH ABG pCO2 ABG pO2 ABG HCO3 ABG Total CO2 ABG O2 Saturation ABG Base Excess FiO2 Sodium 141.7 Potassium 4.6 Chloride 105 Carbon Dioxide 26 Anion Gap 11 BUN 18 Creatinine 0.74 Est GFR ( Amer) > 60 Est GFR (Non-Af Amer) Est GFR (MDRD) Non-Af > 60 Glucose 180 H POC Glucose 161 H 185 H Hemoglobin A1c % Calcium 9.5 Magnesium Iron TIBC % Saturation Ferritin Total Bilirubin 1.0 Direct Bilirubin 0.2 Neonat Total Bilirubin Not Reportable Neonat Direct Bilirubin Not Reportable Neonat Indirect Bili Not Reportable AST 21 ALT 16 Alkaline Phosphatase 237 H Creatine Kinase 34 CK-MB (CK-2) Troponin I NT-Pro-B Natriuret Pep Total Protein 8.4 H Albumin 3.5 Triglycerides Cholesterol LDL Cholesterol Direct VLDL Cholesterol HDL Cholesterol Lipase EGFR Vitamin B12 Folate TSH Free T4 Urine Color Urine Appearance Urine pH Ur Specific [place] Urine Protein Urine Glucose (UA) Urine Ketones Urine Blood Urine Nitrite Urine Bilirubin Urine Urobilinogen Ur Leukocyte Esterase Urine WBC (Auto) Urine RBC (Auto) Urine Bacteria (Auto) Squamous Epi Cells Auto Urine Mucus (Auto) Urine Ascorbic Acid Stool Occult Blood Slides for Path Review Blood Type Antibody Screen Crossmatch 05/01/19 05/01/19 05/01/19 11:39 11:39 11:39 WBC 7.2 RBC 2.91 L Hgb 8.8 L Hct 26.7 L MCV 92 MCH 30.2 MCHC 32.9 RDW 16.8 H Plt Count 241 Lymph % (Auto) 17.5 Bertie % (Auto) 9.6 Eos % (Auto) 1.3 Baso % (Auto) 0.4 Reticulocyte # Absolute Neuts (auto) 5.2 Absolute Lymphs (auto) 1.3 Absolute Monos (auto) 0.7 Absolute Eos (auto) 0.1 Absolute Basos (auto) 0.0 Seg Neutrophils % 71.2 Platelet Estimate Retic Count (auto) PT INR APTT Carbonic Acid HCO3/H2CO3 Ratio ABG pH ABG pCO2 ABG pO2 ABG HCO3 ABG Total CO2 ABG O2 Saturation ABG Base Excess FiO2 Sodium Potassium Chloride Carbon Dioxide Anion Gap BUN Creatinine Est GFR ( Amer) Est GFR (Non-Af Amer) Est GFR (MDRD) Non-Af Glucose POC Glucose Hemoglobin A1c % 7.9 H Calcium Magnesium Iron TIBC % Saturation Ferritin Total Bilirubin Direct Bilirubin Neonat Total Bilirubin Neonat Direct Bilirubin Neonat Indirect Bili AST ALT Alkaline Phosphatase Creatine Kinase CK-MB (CK-2) 0.36 Troponin I < 0.012 NT-Pro-B Natriuret Pep Total Protein Albumin Triglycerides Cholesterol LDL Cholesterol Direct VLDL Cholesterol HDL Cholesterol Lipase EGFR Vitamin B12 Folate TSH Free T4 Urine Color Urine Appearance Urine pH Ur Specific [place] Urine Protein Urine Glucose (UA) Urine Ketones Urine Blood Urine Nitrite Urine Bilirubin Urine Urobilinogen Ur Leukocyte Esterase Urine WBC (Auto) Urine RBC (Auto) Urine Bacteria (Auto) Squamous Epi Cells Auto Urine Mucus (Auto) Urine Ascorbic Acid Stool Occult Blood Slides for Path Review Blood Type Antibody Screen Crossmatch 05/01/19 05/01/19 05/01/19 11:39 11:39 16:39 WBC RBC Hgb Hct MCV MCH MCHC RDW Plt Count Lymph % (Auto) Bertie % (Auto) Eos % (Auto) Baso % (Auto) Reticulocyte # 0.069 Absolute Neuts (auto) Absolute Lymphs (auto) Absolute Monos (auto) Absolute Eos (auto) Absolute Basos (auto) Seg Neutrophils % Platelet Estimate Retic Count (auto) 2.36 PT INR APTT Carbonic Acid HCO3/H2CO3 Ratio ABG pH ABG pCO2 ABG pO2 ABG HCO3 ABG Total CO2 ABG O2 Saturation ABG Base Excess FiO2 Sodium Potassium Chloride Carbon Dioxide Anion Gap BUN Creatinine Est GFR ( Amer) Est GFR (Non-Af Amer) Est GFR (MDRD) Non-Af Glucose POC Glucose 213 H Hemoglobin A1c % Calcium Magnesium Iron 44.3 TIBC 236 L % Saturation 19 Ferritin 195.00 Total Bilirubin Direct Bilirubin Neonat Total Bilirubin Neonat Direct Bilirubin Neonat Indirect Bili AST ALT Alkaline Phosphatase Creatine Kinase CK-MB (CK-2) Troponin I NT-Pro-B Natriuret Pep Total Protein Albumin Triglycerides Cholesterol LDL Cholesterol Direct VLDL Cholesterol HDL Cholesterol Lipase EGFR Vitamin B12 478.0 Folate > 20.00 TSH Free T4 Urine Color Urine Appearance Urine pH Ur Specific [place] Urine Protein Urine Glucose (UA) Urine Ketones Urine Blood Urine Nitrite Urine Bilirubin Urine Urobilinogen Ur Leukocyte Esterase Urine WBC (Auto) Urine RBC (Auto) Urine Bacteria (Auto) Squamous Epi Cells Auto Urine Mucus (Auto) Urine Ascorbic Acid Stool Occult Blood Slides for Path Review Blood Type Antibody Screen Crossmatch 05/01/19 05/02/19 05/02/19 21:11 04:52 04:52 WBC 6.6 RBC 2.95 L Hgb 8.9 L Hct 27.1 L MCV 92 MCH 30.2 MCHC 32.9 RDW 16.9 H Plt Count 235 Lymph % (Auto) 24.4 Bertie % (Auto) 11.5 Eos % (Auto) 2.6 Baso % (Auto) 0.2 Reticulocyte # Absolute Neuts (auto) 4.0 Absolute Lymphs (auto) 1.6 Absolute Monos (auto) 0.8 Absolute Eos (auto) 0.2 Absolute Basos (auto) 0.0 Seg Neutrophils % 61.3 Platelet Estimate Retic Count (auto) PT INR APTT Carbonic Acid HCO3/H2CO3 Ratio ABG pH ABG pCO2 ABG pO2 ABG HCO3 ABG Total CO2 ABG O2 Saturation ABG Base Excess FiO2 Sodium Potassium Chloride Carbon Dioxide Anion Gap BUN Creatinine Est GFR ( Amer) Est GFR (Non-Af Amer) Est GFR (MDRD) Non-Af Glucose POC Glucose 211 H Hemoglobin A1c % Calcium Magnesium Iron TIBC % Saturation Ferritin Total Bilirubin Direct Bilirubin Neonat Total Bilirubin Neonat Direct Bilirubin Neonat Indirect Bili AST ALT Alkaline Phosphatase Creatine Kinase CK-MB (CK-2) Troponin I NT-Pro-B Natriuret Pep Total Protein Albumin Triglycerides 56 Cholesterol 145.11 LDL Cholesterol Direct 87 VLDL Cholesterol 11.0 HDL Cholesterol 34 L Lipase EGFR Vitamin B12 Folate TSH Free T4 Urine Color Urine Appearance Urine pH Ur Specific [place] Urine Protein Urine Glucose (UA) Urine Ketones Urine Blood Urine Nitrite Urine Bilirubin Urine Urobilinogen Ur Leukocyte Esterase Urine WBC (Auto) Urine RBC (Auto) Urine Bacteria (Auto) Squamous Epi Cells Auto Urine Mucus (Auto) Urine Ascorbic Acid Stool Occult Blood Slides for Path Review Blood Type Antibody Screen Crossmatch 05/02/19 05/02/19 05/02/19 07:41 11:04 15:48 WBC RBC Hgb Hct MCV MCH MCHC RDW Plt Count Lymph % (Auto) Bertie % (Auto) Eos % (Auto) Baso % (Auto) Reticulocyte # Absolute Neuts (auto) Absolute Lymphs (auto) Absolute Monos (auto) Absolute Eos (auto) Absolute Basos (auto) Seg Neutrophils % Platelet Estimate Retic Count (auto) PT INR APTT Carbonic Acid HCO3/H2CO3 Ratio ABG pH ABG pCO2 ABG pO2 ABG HCO3 ABG Total CO2 ABG O2 Saturation ABG Base Excess FiO2 Sodium Potassium Chloride Carbon Dioxide Anion Gap BUN Creatinine Est GFR ( Amer) Est GFR (Non-Af Amer) Est GFR (MDRD) Non-Af Glucose POC Glucose 136 H 184 H 252 H Hemoglobin A1c % Calcium Magnesium Iron TIBC % Saturation Ferritin Total Bilirubin Direct Bilirubin Neonat Total Bilirubin Neonat Direct Bilirubin Neonat Indirect Bili AST ALT Alkaline Phosphatase Creatine Kinase CK-MB (CK-2) Troponin I NT-Pro-B Natriuret Pep Total Protein Albumin Triglycerides Cholesterol LDL Cholesterol Direct VLDL Cholesterol HDL Cholesterol Lipase EGFR Vitamin B12 Folate TSH Free T4 Urine Color Urine Appearance Urine pH Ur Specific [place] Urine Protein Urine Glucose (UA) Urine Ketones Urine Blood Urine Nitrite Urine Bilirubin Urine Urobilinogen Ur Leukocyte Esterase Urine WBC (Auto) Urine RBC (Auto) Urine Bacteria (Auto) Squamous Epi Cells Auto Urine Mucus (Auto) Urine Ascorbic Acid Stool Occult Blood Slides for Path Review Blood Type Antibody Screen Crossmatch 05/03/19 05/03/19 05/03/19 00:42 07:34 11:42 WBC RBC Hgb Hct MCV MCH MCHC RDW Plt Count Lymph % (Auto) Bertie % (Auto) Eos % (Auto) Baso % (Auto) Reticulocyte # Absolute Neuts (auto) Absolute Lymphs (auto) Absolute Monos (auto) Absolute Eos (auto) Absolute Basos (auto) Seg Neutrophils % Platelet Estimate Retic Count (auto) PT INR APTT Carbonic Acid HCO3/H2CO3 Ratio ABG pH ABG pCO2 ABG pO2 ABG HCO3 ABG Total CO2 ABG O2 Saturation ABG Base Excess FiO2 Sodium Potassium Chloride Carbon Dioxide Anion Gap BUN Creatinine Est GFR ( Amer) Est GFR (Non-Af Amer) Est GFR (MDRD) Non-Af Glucose POC Glucose 136 H 146 H 200 H Hemoglobin A1c % Calcium Magnesium Iron TIBC % Saturation Ferritin Total Bilirubin Direct Bilirubin Neonat Total Bilirubin Neonat Direct Bilirubin Neonat Indirect Bili AST ALT Alkaline Phosphatase Creatine Kinase CK-MB (CK-2) Troponin I NT-Pro-B Natriuret Pep Total Protein Albumin Triglycerides Cholesterol LDL Cholesterol Direct VLDL Cholesterol HDL Cholesterol Lipase EGFR Vitamin B12 Folate TSH Free T4 Urine Color Urine Appearance Urine pH Ur Specific [place] Urine Protein Urine Glucose (UA) Urine Ketones Urine Blood Urine Nitrite Urine Bilirubin Urine Urobilinogen Ur Leukocyte Esterase Urine WBC (Auto) Urine RBC (Auto) Urine Bacteria (Auto) Squamous Epi Cells Auto Urine Mucus (Auto) Urine Ascorbic Acid Stool Occult Blood Slides for Path Review Blood Type Antibody Screen Crossmatch 05/03/19 05/03/19 05/04/19 15:17 21:09 07:23 WBC RBC Hgb Hct MCV MCH MCHC RDW Plt Count Lymph % (Auto) Bertie % (Auto) Eos % (Auto) Baso % (Auto) Reticulocyte # Absolute Neuts (auto) Absolute Lymphs (auto) Absolute Monos (auto) Absolute Eos (auto) Absolute Basos (auto) Seg Neutrophils % Platelet Estimate Retic Count (auto) PT INR APTT Carbonic Acid HCO3/H2CO3 Ratio ABG pH ABG pCO2 ABG pO2 ABG HCO3 ABG Total CO2 ABG O2 Saturation ABG Base Excess FiO2 Sodium Potassium Chloride Carbon Dioxide Anion Gap BUN Creatinine Est GFR ( Amer) Est GFR (Non-Af Amer) Est GFR (MDRD) Non-Af Glucose POC Glucose 209 H 211 H 106 Hemoglobin A1c % Calcium Magnesium Iron TIBC % Saturation Ferritin Total Bilirubin Direct Bilirubin Neonat Total Bilirubin Neonat Direct Bilirubin Neonat Indirect Bili AST ALT Alkaline Phosphatase Creatine Kinase CK-MB (CK-2) Troponin I NT-Pro-B Natriuret Pep Total Protein Albumin Triglycerides Cholesterol LDL Cholesterol Direct VLDL Cholesterol HDL Cholesterol Lipase EGFR Vitamin B12 Folate TSH Free T4 Urine Color Urine Appearance Urine pH Ur Specific [place] Urine Protein Urine Glucose (UA) Urine Ketones Urine Blood Urine Nitrite Urine Bilirubin Urine Urobilinogen Ur Leukocyte Esterase Urine WBC (Auto) Urine RBC (Auto) Urine Bacteria (Auto) Squamous Epi Cells Auto Urine Mucus (Auto) Urine Ascorbic Acid Stool Occult Blood Slides for Path Review Blood Type Antibody Screen Crossmatch 05/04/19 05/04/19 05/04/19 11:12 15:12 21:08 WBC RBC Hgb Hct MCV MCH MCHC RDW Plt Count Lymph % (Auto) Bertie % (Auto) Eos % (Auto) Baso % (Auto) Reticulocyte # Absolute Neuts (auto) Absolute Lymphs (auto) Absolute Monos (auto) Absolute Eos (auto) Absolute Basos (auto) Seg Neutrophils % Platelet Estimate Retic Count (auto) PT INR APTT Carbonic Acid HCO3/H2CO3 Ratio ABG pH ABG pCO2 ABG pO2 ABG HCO3 ABG Total CO2 ABG O2 Saturation ABG Base Excess FiO2 Sodium Potassium Chloride Carbon Dioxide Anion Gap BUN Creatinine Est GFR ( Amer) Est GFR (Non-Af Amer) Est GFR (MDRD) Non-Af Glucose POC Glucose 135 H 217 H 127 H Hemoglobin A1c % Calcium Magnesium Iron TIBC % Saturation Ferritin Total Bilirubin Direct Bilirubin Neonat Total Bilirubin Neonat Direct Bilirubin Neonat Indirect Bili AST ALT Alkaline Phosphatase Creatine Kinase CK-MB (CK-2) Troponin I NT-Pro-B Natriuret Pep Total Protein Albumin Triglycerides Cholesterol LDL Cholesterol Direct VLDL Cholesterol HDL Cholesterol Lipase EGFR Vitamin B12 Folate TSH Free T4 Urine Color Urine Appearance Urine pH Ur Specific [place] Urine Protein Urine Glucose (UA) Urine Ketones Urine Blood Urine Nitrite Urine Bilirubin Urine Urobilinogen Ur Leukocyte Esterase Urine WBC (Auto) Urine RBC (Auto) Urine Bacteria (Auto) Squamous Epi Cells Auto Urine Mucus (Auto) Urine Ascorbic Acid Stool Occult Blood Slides for Path Review Blood Type Antibody Screen Crossmatch 05/05/19 05/05/19 05/05/19 07:39 08:16 12:19 WBC RBC Hgb Hct MCV MCH MCHC RDW Plt Count Lymph % (Auto) Bertie % (Auto) Eos % (Auto) Baso % (Auto) Reticulocyte # Absolute Neuts (auto) Absolute Lymphs (auto) Absolute Monos (auto) Absolute Eos (auto) Absolute Basos (auto) Seg Neutrophils % Platelet Estimate Retic Count (auto) PT INR APTT Carbonic Acid HCO3/H2CO3 Ratio ABG pH ABG pCO2 ABG pO2 ABG HCO3 ABG Total CO2 ABG O2 Saturation ABG Base Excess FiO2 Sodium Potassium Chloride Carbon Dioxide Anion Gap BUN Creatinine Est GFR ( Amer) Est GFR (Non-Af Amer) Est GFR (MDRD) Non-Af Glucose POC Glucose 66 L 76 110 Hemoglobin A1c % Calcium Magnesium Iron TIBC % Saturation Ferritin Total Bilirubin Direct Bilirubin Neonat Total Bilirubin Neonat Direct Bilirubin Neonat Indirect Bili AST ALT Alkaline Phosphatase Creatine Kinase CK-MB (CK-2) Troponin I NT-Pro-B Natriuret Pep Total Protein Albumin Triglycerides Cholesterol LDL Cholesterol Direct VLDL Cholesterol HDL Cholesterol Lipase EGFR Vitamin B12 Folate TSH Free T4 Urine Color Urine Appearance Urine pH Ur Specific [place] Urine Protein Urine Glucose (UA) Urine Ketones Urine Blood Urine Nitrite Urine Bilirubin Urine Urobilinogen Ur Leukocyte Esterase Urine WBC (Auto) Urine RBC (Auto) Urine Bacteria (Auto) Squamous Epi Cells Auto Urine Mucus (Auto) Urine Ascorbic Acid Stool Occult Blood Slides for Path Review Blood Type Antibody Screen Crossmatch 05/05/19 05/05/19 05/06/19 17:28 21:26 07:26 WBC RBC Hgb Hct MCV MCH MCHC RDW Plt Count Lymph % (Auto) Bertie % (Auto) Eos % (Auto) Baso % (Auto) Reticulocyte # Absolute Neuts (auto) Absolute Lymphs (auto) Absolute Monos (auto) Absolute Eos (auto) Absolute Basos (auto) Seg Neutrophils % Platelet Estimate Retic Count (auto) PT INR APTT Carbonic Acid HCO3/H2CO3 Ratio ABG pH ABG pCO2 ABG pO2 ABG HCO3 ABG Total CO2 ABG O2 Saturation ABG Base Excess FiO2 Sodium Potassium Chloride Carbon Dioxide Anion Gap BUN Creatinine Est GFR ( Amer) Est GFR (Non-Af Amer) Est GFR (MDRD) Non-Af Glucose POC Glucose 119 H 125 H 104 Hemoglobin A1c % Calcium Magnesium Iron TIBC % Saturation Ferritin Total Bilirubin Direct Bilirubin Neonat Total Bilirubin Neonat Direct Bilirubin Neonat Indirect Bili AST ALT Alkaline Phosphatase Creatine Kinase CK-MB (CK-2) Troponin I NT-Pro-B Natriuret Pep Total Protein Albumin Triglycerides Cholesterol LDL Cholesterol Direct VLDL Cholesterol HDL Cholesterol Lipase EGFR Vitamin B12 Folate TSH Free T4 Urine Color Urine Appearance Urine pH Ur Specific [place] Urine Protein Urine Glucose (UA) Urine Ketones Urine Blood Urine Nitrite Urine Bilirubin Urine Urobilinogen Ur Leukocyte Esterase Urine WBC (Auto) Urine RBC (Auto) Urine Bacteria (Auto) Squamous Epi Cells Auto Urine Mucus (Auto) Urine Ascorbic Acid Stool Occult Blood Slides for Path Review Blood Type Antibody Screen Crossmatch 05/06/19 05/06/19 05/06/19 10:53 15:26 21:10 WBC RBC Hgb Hct MCV MCH MCHC RDW Plt Count Lymph % (Auto) Bertie % (Auto) Eos % (Auto) Baso % (Auto) Reticulocyte # Absolute Neuts (auto) Absolute Lymphs (auto) Absolute Monos (auto) Absolute Eos (auto) Absolute Basos (auto) Seg Neutrophils % Platelet Estimate Retic Count (auto) PT INR APTT Carbonic Acid HCO3/H2CO3 Ratio ABG pH ABG pCO2 ABG pO2 ABG HCO3 ABG Total CO2 ABG O2 Saturation ABG Base Excess FiO2 Sodium Potassium Chloride Carbon Dioxide Anion Gap BUN Creatinine Est GFR ( Amer) Est GFR (Non-Af Amer) Est GFR (MDRD) Non-Af Glucose POC Glucose 125 H 172 H 205 H Hemoglobin A1c % Calcium Magnesium Iron TIBC % Saturation Ferritin Total Bilirubin Direct Bilirubin Neonat Total Bilirubin Neonat Direct Bilirubin Neonat Indirect Bili AST ALT Alkaline Phosphatase Creatine Kinase CK-MB (CK-2) Troponin I NT-Pro-B Natriuret Pep Total Protein Albumin Triglycerides Cholesterol LDL Cholesterol Direct VLDL Cholesterol HDL Cholesterol Lipase EGFR Vitamin B12 Folate TSH Free T4 Urine Color Urine Appearance Urine pH Ur Specific [place] Urine Protein Urine Glucose (UA) Urine Ketones Urine Blood Urine Nitrite Urine Bilirubin Urine Urobilinogen Ur Leukocyte Esterase Urine WBC (Auto) Urine RBC (Auto) Urine Bacteria (Auto) Squamous Epi Cells Auto Urine Mucus (Auto) Urine Ascorbic Acid Stool Occult Blood Slides for Path Review Blood Type Antibody Screen Crossmatch 05/07/19 05/07/19 05/07/19 08:36 10:49 16:55 WBC RBC Hgb Hct MCV MCH MCHC RDW Plt Count Lymph % (Auto) Bertie % (Auto) Eos % (Auto) Baso % (Auto) Reticulocyte # Absolute Neuts (auto) Absolute Lymphs (auto) Absolute Monos (auto) Absolute Eos (auto) Absolute Basos (auto) Seg Neutrophils % Platelet Estimate Retic Count (auto) PT INR APTT Carbonic Acid HCO3/H2CO3 Ratio ABG pH ABG pCO2 ABG pO2 ABG HCO3 ABG Total CO2 ABG O2 Saturation ABG Base Excess FiO2 Sodium Potassium Chloride Carbon Dioxide Anion Gap BUN Creatinine Est GFR ( Amer) Est GFR (Non-Af Amer) Est GFR (MDRD) Non-Af Glucose POC Glucose 116 H 137 H 190 H Hemoglobin A1c % Calcium Magnesium Iron TIBC % Saturation Ferritin Total Bilirubin Direct Bilirubin Neonat Total Bilirubin Neonat Direct Bilirubin Neonat Indirect Bili AST ALT Alkaline Phosphatase Creatine Kinase CK-MB (CK-2) Troponin I NT-Pro-B Natriuret Pep Total Protein Albumin Triglycerides Cholesterol LDL Cholesterol Direct VLDL Cholesterol HDL Cholesterol Lipase EGFR Vitamin B12 Folate TSH Free T4 Urine Color Urine Appearance Urine pH Ur Specific [place] Urine Protein Urine Glucose (UA) Urine Ketones Urine Blood Urine Nitrite Urine Bilirubin Urine Urobilinogen Ur Leukocyte Esterase Urine WBC (Auto) Urine RBC (Auto) Urine Bacteria (Auto) Squamous Epi Cells Auto Urine Mucus (Auto) Urine Ascorbic Acid Stool Occult Blood Slides for Path Review Blood Type Antibody Screen Crossmatch 05/07/19 05/08/19 05/08/19 21:19 05:15 05:15 WBC 8.2 RBC 2.72 L Hgb 8.4 L Hct 25.4 L MCV 93 MCH 30.8 MCHC 33.0 RDW 16.9 H Plt Count 216 Lymph % (Auto) 23.0 Bertie % (Auto) 11.4 Eos % (Auto) 1.8 Baso % (Auto) 0.5 Reticulocyte # Absolute Neuts (auto) 5.2 Absolute Lymphs (auto) 1.9 Absolute Monos (auto) 0.9 Absolute Eos (auto) 0.1 Absolute Basos (auto) 0.0 Seg Neutrophils % 63.3 Platelet Estimate Retic Count (auto) PT INR APTT Carbonic Acid HCO3/H2CO3 Ratio ABG pH ABG pCO2 ABG pO2 ABG HCO3 ABG Total CO2 ABG O2 Saturation ABG Base Excess FiO2 Sodium 141.6 Potassium 6.0 H* Chloride 106 Carbon Dioxide 27 Anion Gap 9 BUN 44 H Creatinine 2.92 H Est GFR ( Amer) 20 L Est GFR (Non-Af Amer) Est GFR (MDRD) Non-Af 16 L Glucose 55 L POC Glucose 328 H Hemoglobin A1c % Calcium 8.9 Magnesium Iron TIBC % Saturation Ferritin Total Bilirubin 0.7 Direct Bilirubin 0.3 Neonat Total Bilirubin Not Reportable Neonat Direct Bilirubin Not Reportable Neonat Indirect Bili Not Reportable AST 34 ALT 19 Alkaline Phosphatase 276 H Creatine Kinase CK-MB (CK-2) Troponin I NT-Pro-B Natriuret Pep Total Protein 7.9 Albumin 3.4 L Triglycerides Cholesterol LDL Cholesterol Direct VLDL Cholesterol HDL Cholesterol Lipase EGFR Vitamin B12 Folate TSH Free T4 Urine Color Urine Appearance Urine pH Ur Specific [place] Urine Protein Urine Glucose (UA) Urine Ketones Urine Blood Urine Nitrite Urine Bilirubin Urine Urobilinogen Ur Leukocyte Esterase Urine WBC (Auto) Urine RBC (Auto) Urine Bacteria (Auto) Squamous Epi Cells Auto Urine Mucus (Auto) Urine Ascorbic Acid Stool Occult Blood Slides for Path Review Blood Type Antibody Screen Crossmatch 05/08/19 05/08/19 05/08/19 07:34 11:15 15:00 WBC RBC Hgb Hct MCV MCH MCHC RDW Plt Count Lymph % (Auto) Bertie % (Auto) Eos % (Auto) Baso % (Auto) Reticulocyte # Absolute Neuts (auto) Absolute Lymphs (auto) Absolute Monos (auto) Absolute Eos (auto) Absolute Basos (auto) Seg Neutrophils % Platelet Estimate Retic Count (auto) PT INR APTT Carbonic Acid HCO3/H2CO3 Ratio ABG pH ABG pCO2 ABG pO2 ABG HCO3 ABG Total CO2 ABG O2 Saturation ABG Base Excess FiO2 Sodium Potassium Chloride Carbon Dioxide Anion Gap BUN Creatinine Est GFR ( Amer) Est GFR (Non-Af Amer) Est GFR (MDRD) Non-Af Glucose POC Glucose 71 105 142 H Hemoglobin A1c % Calcium Magnesium Iron TIBC % Saturation Ferritin Total Bilirubin Direct Bilirubin Neonat Total Bilirubin Neonat Direct Bilirubin Neonat Indirect Bili AST ALT Alkaline Phosphatase Creatine Kinase CK-MB (CK-2) Troponin I NT-Pro-B Natriuret Pep Total Protein Albumin Triglycerides Cholesterol LDL Cholesterol Direct VLDL Cholesterol HDL Cholesterol Lipase EGFR Vitamin B12 Folate TSH Free T4 Urine Color Urine Appearance Urine pH Ur Specific [place] Urine Protein Urine Glucose (UA) Urine Ketones Urine Blood Urine Nitrite Urine Bilirubin Urine Urobilinogen Ur Leukocyte Esterase Urine WBC (Auto) Urine RBC (Auto) Urine Bacteria (Auto) Squamous Epi Cells Auto Urine Mucus (Auto) Urine Ascorbic Acid Stool Occult Blood Slides for Path Review Blood Type Antibody Screen Crossmatch 05/08/19 05/08/19 05/09/19 21:34 21:52 07:30 WBC RBC Hgb Hct MCV MCH MCHC RDW Plt Count Lymph % (Auto) Bertie % (Auto) Eos % (Auto) Baso % (Auto) Reticulocyte # Absolute Neuts (auto) Absolute Lymphs (auto) Absolute Monos (auto) Absolute Eos (auto) Absolute Basos (auto) Seg Neutrophils % Platelet Estimate Retic Count (auto) PT INR APTT Carbonic Acid HCO3/H2CO3 Ratio ABG pH ABG pCO2 ABG pO2 ABG HCO3 ABG Total CO2 ABG O2 Saturation ABG Base Excess FiO2 Sodium 140.3 Potassium 5.0 D Chloride 106 Carbon Dioxide 25 Anion Gap 9 BUN 44 H Creatinine 2.20 H Est GFR ( Amer) 27 L Est GFR (Non-Af Amer) Est GFR (MDRD) Non-Af 22 L Glucose 125 H POC Glucose 132 H 144 H Hemoglobin A1c % Calcium 8.8 Magnesium Iron TIBC % Saturation Ferritin Total Bilirubin Direct Bilirubin Neonat Total Bilirubin Neonat Direct Bilirubin Neonat Indirect Bili AST ALT Alkaline Phosphatase Creatine Kinase CK-MB (CK-2) Troponin I NT-Pro-B Natriuret Pep Total Protein Albumin Triglycerides Cholesterol LDL Cholesterol Direct VLDL Cholesterol HDL Cholesterol Lipase EGFR Vitamin B12 Folate TSH Free T4 Urine Color Urine Appearance Urine pH Ur Specific [place] Urine Protein Urine Glucose (UA) Urine Ketones Urine Blood Urine Nitrite Urine Bilirubin Urine Urobilinogen Ur Leukocyte Esterase Urine WBC (Auto) Urine RBC (Auto) Urine Bacteria (Auto) Squamous Epi Cells Auto Urine Mucus (Auto) Urine Ascorbic Acid Stool Occult Blood Slides for Path Review Blood Type Antibody Screen Crossmatch 01/03/20 01/03/20 01/03/20 10:59 15:17 20:15 WBC RBC Hgb Hct MCV MCH MCHC RDW Plt Count Lymph % (Auto) Bertie % (Auto) Eos % (Auto) Baso % (Auto) Reticulocyte # Absolute Neuts (auto) Absolute Lymphs (auto) Absolute Monos (auto) Absolute Eos (auto) Absolute Basos (auto) Seg Neutrophils % Platelet Estimate Retic Count (auto) PT INR APTT Carbonic Acid HCO3/H2CO3 Ratio ABG pH ABG pCO2 ABG pO2 ABG HCO3 ABG Total CO2 ABG O2 Saturation ABG Base Excess FiO2 Sodium Potassium Chloride Carbon Dioxide Anion Gap BUN Creatinine Est GFR ( Amer) Est GFR (Non-Af Amer) Est GFR (MDRD) Non-Af Glucose POC Glucose 146 H 187 H Hemoglobin A1c % Calcium Magnesium Iron TIBC % Saturation Ferritin Total Bilirubin Direct Bilirubin Neonat Total Bilirubin Neonat Direct Bilirubin Neonat Indirect Bili AST ALT Alkaline Phosphatase Creatine Kinase 118 CK-MB (CK-2) Troponin I NT-Pro-B Natriuret Pep Total Protein Albumin Triglycerides Cholesterol LDL Cholesterol Direct VLDL Cholesterol HDL Cholesterol Lipase EGFR Vitamin B12 Folate TSH Free T4 Urine Color Urine Appearance Urine pH Ur Specific [place] Urine Protein Urine Glucose (UA) Urine Ketones Urine Blood Urine Nitrite Urine Bilirubin Urine Urobilinogen Ur Leukocyte Esterase Urine WBC (Auto) Urine RBC (Auto) Urine Bacteria (Auto) Squamous Epi Cells Auto Urine Mucus (Auto) Urine Ascorbic Acid Stool Occult Blood Slides for Path Review Blood Type Antibody Screen Crossmatch 05/09/19 05/09/19 05/10/19 20:15 21:11 02:30 WBC RBC Hgb Hct MCV MCH MCHC RDW Plt Count Lymph % (Auto) Bertie % (Auto) Eos % (Auto) Baso % (Auto) Reticulocyte # Absolute Neuts (auto) Absolute Lymphs (auto) Absolute Monos (auto) Absolute Eos (auto) Absolute Basos (auto) Seg Neutrophils % Platelet Estimate Retic Count (auto) PT INR APTT Carbonic Acid HCO3/H2CO3 Ratio ABG pH ABG pCO2 ABG pO2 ABG HCO3 ABG Total CO2 ABG O2 Saturation ABG Base Excess FiO2 Sodium Potassium Chloride Carbon Dioxide Anion Gap BUN Creatinine Est GFR ( Amer) Est GFR (Non-Af Amer) Est GFR (MDRD) Non-Af Glucose POC Glucose 181 H Hemoglobin A1c % Calcium Magnesium Iron TIBC % Saturation Ferritin Total Bilirubin Direct Bilirubin Neonat Total Bilirubin Neonat Direct Bilirubin Neonat Indirect Bili AST ALT Alkaline Phosphatase Creatine Kinase 90 CK-MB (CK-2) 0.93 Troponin I 0.012 NT-Pro-B Natriuret Pep Total Protein Albumin Triglycerides Cholesterol LDL Cholesterol Direct VLDL Cholesterol HDL Cholesterol Lipase EGFR Vitamin B12 Folate TSH Free T4 Urine Color Urine Appearance Urine pH Ur Specific [place] Urine Protein Urine Glucose (UA) Urine Ketones Urine Blood Urine Nitrite Urine Bilirubin Urine Urobilinogen Ur Leukocyte Esterase Urine WBC (Auto) Urine RBC (Auto) Urine Bacteria (Auto) Squamous Epi Cells Auto Urine Mucus (Auto) Urine Ascorbic Acid Stool Occult Blood Slides for Path Review Blood Type Antibody Screen Crossmatch 05/10/19 05/10/19 05/10/19 02:30 07:25 09:00 WBC RBC Hgb Hct MCV MCH MCHC RDW Plt Count Lymph % (Auto) Bertie % (Auto) Eos % (Auto) Baso % (Auto) Reticulocyte # Absolute Neuts (auto) Absolute Lymphs (auto) Absolute Monos (auto) Absolute Eos (auto) Absolute Basos (auto) Seg Neutrophils % Platelet Estimate Retic Count (auto) PT INR APTT Carbonic Acid HCO3/H2CO3 Ratio ABG pH ABG pCO2 ABG pO2 ABG HCO3 ABG Total CO2 ABG O2 Saturation ABG Base Excess FiO2 Sodium Potassium Chloride Carbon Dioxide Anion Gap BUN Creatinine Est GFR ( Amer) Est GFR (Non-Af Amer) Est GFR (MDRD) Non-Af Glucose POC Glucose 97 Hemoglobin A1c % Calcium Magnesium Iron TIBC % Saturation Ferritin Total Bilirubin Direct Bilirubin Neonat Total Bilirubin Neonat Direct Bilirubin Neonat Indirect Bili AST ALT Alkaline Phosphatase Creatine Kinase 87 CK-MB (CK-2) 0.80 Troponin I < 0.012 NT-Pro-B Natriuret Pep Total Protein Albumin Triglycerides Cholesterol LDL Cholesterol Direct VLDL Cholesterol HDL Cholesterol Lipase EGFR Vitamin B12 Folate TSH Free T4 Urine Color Urine Appearance Urine pH Ur Specific [place] Urine Protein Urine Glucose (UA) Urine Ketones Urine Blood Urine Nitrite Urine Bilirubin Urine Urobilinogen Ur Leukocyte Esterase Urine WBC (Auto) Urine RBC (Auto) Urine Bacteria (Auto) Squamous Epi Cells Auto Urine Mucus (Auto) Urine Ascorbic Acid Stool Occult Blood Slides for Path Review Blood Type Antibody Screen Crossmatch 05/10/19 05/10/19 05/10/19 09:00 10:55 14:56 WBC RBC Hgb Hct MCV MCH MCHC RDW Plt Count Lymph % (Auto) Bertie % (Auto) Eos % (Auto) Baso % (Auto) Reticulocyte # Absolute Neuts (auto) Absolute Lymphs (auto) Absolute Monos (auto) Absolute Eos (auto) Absolute Basos (auto) Seg Neutrophils % Platelet Estimate Retic Count (auto) PT INR APTT Carbonic Acid HCO3/H2CO3 Ratio ABG pH ABG pCO2 ABG pO2 ABG HCO3 ABG Total CO2 ABG O2 Saturation ABG Base Excess FiO2 Sodium Potassium Chloride Carbon Dioxide Anion Gap BUN Creatinine Est GFR ( Amer) Est GFR (Non-Af Amer) Est GFR (MDRD) Non-Af Glucose POC Glucose 129 H 153 H Hemoglobin A1c % Calcium Magnesium Iron TIBC % Saturation Ferritin Total Bilirubin Direct Bilirubin Neonat Total Bilirubin Neonat Direct Bilirubin Neonat Indirect Bili AST ALT Alkaline Phosphatase Creatine Kinase CK-MB (CK-2) 0.73 Troponin I 0.013 NT-Pro-B Natriuret Pep Total Protein Albumin Triglycerides Cholesterol LDL Cholesterol Direct VLDL Cholesterol HDL Cholesterol Lipase EGFR Vitamin B12 Folate TSH Free T4 Urine Color Urine Appearance Urine pH Ur Specific [place] Urine Protein Urine Glucose (UA) Urine Ketones Urine Blood Urine Nitrite Urine Bilirubin Urine Urobilinogen Ur Leukocyte Esterase Urine WBC (Auto) Urine RBC (Auto) Urine Bacteria (Auto) Squamous Epi Cells Auto Urine Mucus (Auto) Urine Ascorbic Acid Stool Occult Blood Slides for Path Review Blood Type Antibody Screen Crossmatch 05/10/19 05/11/19 05/11/19 21:35 05:15 05:50 WBC 5.8 RBC 2.61 L Hgb 8.1 L Hct 24.5 L MCV 94 MCH 31.0 MCHC 33.0 RDW 16.7 H Plt Count 206 Lymph % (Auto) 23.5 Bertie % (Auto) 10.7 Eos % (Auto) 3.2 Baso % (Auto) 0.4 Reticulocyte # Absolute Neuts (auto) 3.6 Absolute Lymphs (auto) 1.4 Absolute Monos (auto) 0.6 Absolute Eos (auto) 0.2 Absolute Basos (auto) 0.0 Seg Neutrophils % 62.2 Platelet Estimate Retic Count (auto) PT INR APTT Carbonic Acid HCO3/H2CO3 Ratio ABG pH ABG pCO2 ABG pO2 ABG HCO3 ABG Total CO2 ABG O2 Saturation ABG Base Excess FiO2 Sodium 143.0 Potassium 5.4 H Chloride 109 H Carbon Dioxide 28 Anion Gap 6 BUN 37 H Creatinine 1.26 H Est GFR ( Amer) 52 L Est GFR (Non-Af Amer) Est GFR (MDRD) Non-Af 43 L Glucose 78 POC Glucose 185 H Hemoglobin A1c % Calcium 9.3 Magnesium Iron TIBC % Saturation Ferritin Total Bilirubin Direct Bilirubin Neonat Total Bilirubin Neonat Direct Bilirubin Neonat Indirect Bili AST ALT Alkaline Phosphatase Creatine Kinase CK-MB (CK-2) Troponin I NT-Pro-B Natriuret Pep Total Protein Albumin Triglycerides Cholesterol LDL Cholesterol Direct VLDL Cholesterol HDL Cholesterol Lipase EGFR Vitamin B12 Folate TSH Free T4 Urine Color Urine Appearance Urine pH Ur Specific [place] Urine Protein Urine Glucose (UA) Urine Ketones Urine Blood Urine Nitrite Urine Bilirubin Urine Urobilinogen Ur Leukocyte Esterase Urine WBC (Auto) Urine RBC (Auto) Urine Bacteria (Auto) Squamous Epi Cells Auto Urine Mucus (Auto) Urine Ascorbic Acid Stool Occult Blood Slides for Path Review Blood Type Antibody Screen Crossmatch 05/11/19 05/11/19 05/11/19 05:50 05:50 07:30 WBC RBC Hgb Hct MCV MCH MCHC RDW Plt Count Lymph % (Auto) Bertie % (Auto) Eos % (Auto) Baso % (Auto) Reticulocyte # 0.040 Absolute Neuts (auto) Absolute Lymphs (auto) Absolute Monos (auto) Absolute Eos (auto) Absolute Basos (auto) Seg Neutrophils % Platelet Estimate Retic Count (auto) 1.52 PT INR APTT Carbonic Acid HCO3/H2CO3 Ratio ABG pH ABG pCO2 ABG pO2 ABG HCO3 ABG Total CO2 ABG O2 Saturation ABG Base Excess FiO2 Sodium Potassium Chloride Carbon Dioxide Anion Gap BUN Creatinine Est GFR ( Amer) Est GFR (Non-Af Amer) Est GFR (MDRD) Non-Af Glucose POC Glucose 68 L Hemoglobin A1c % Calcium Magnesium Iron 40.0 TIBC 249 L % Saturation 16 Ferritin 169.00 Total Bilirubin Direct Bilirubin Neonat Total Bilirubin Neonat Direct Bilirubin Neonat Indirect Bili AST ALT Alkaline Phosphatase Creatine Kinase CK-MB (CK-2) Troponin I NT-Pro-B Natriuret Pep Total Protein Albumin Triglycerides Cholesterol LDL Cholesterol Direct VLDL Cholesterol HDL Cholesterol Lipase EGFR Vitamin B12 467.0 Folate > 20.00 TSH Free T4 Urine Color Urine Appearance Urine pH Ur Specific [place] Urine Protein Urine Glucose (UA) Urine Ketones Urine Blood Urine Nitrite Urine Bilirubin Urine Urobilinogen Ur Leukocyte Esterase Urine WBC (Auto) Urine RBC (Auto) Urine Bacteria (Auto) Squamous Epi Cells Auto Urine Mucus (Auto) Urine Ascorbic Acid Stool Occult Blood Slides for Path Review Blood Type Antibody Screen Crossmatch 05/11/19 05/11/19 05/11/19 08:21 09:18 10:52 WBC RBC Hgb Hct MCV MCH MCHC RDW Plt Count Lymph % (Auto) Bertie % (Auto) Eos % (Auto) Baso % (Auto) Reticulocyte # Absolute Neuts (auto) Absolute Lymphs (auto) Absolute Monos (auto) Absolute Eos (auto) Absolute Basos (auto) Seg Neutrophils % Platelet Estimate Retic Count (auto) PT INR APTT Carbonic Acid HCO3/H2CO3 Ratio ABG pH ABG pCO2 ABG pO2 ABG HCO3 ABG Total CO2 ABG O2 Saturation ABG Base Excess FiO2 Sodium Potassium Chloride Carbon Dioxide Anion Gap BUN Creatinine Est GFR ( Amer) Est GFR (Non-Af Amer) Est GFR (MDRD) Non-Af Glucose POC Glucose 77 89 177 H Hemoglobin A1c % Calcium Magnesium Iron TIBC % Saturation Ferritin Total Bilirubin Direct Bilirubin Neonat Total Bilirubin Neonat Direct Bilirubin Neonat Indirect Bili AST ALT Alkaline Phosphatase Creatine Kinase CK-MB (CK-2) Troponin I NT-Pro-B Natriuret Pep Total Protein Albumin Triglycerides Cholesterol LDL Cholesterol Direct VLDL Cholesterol HDL Cholesterol Lipase EGFR Vitamin B12 Folate TSH Free T4 Urine Color Urine Appearance Urine pH Ur Specific [place] Urine Protein Urine Glucose (UA) Urine Ketones Urine Blood Urine Nitrite Urine Bilirubin Urine Urobilinogen Ur Leukocyte Esterase Urine WBC (Auto) Urine RBC (Auto) Urine Bacteria (Auto) Squamous Epi Cells Auto Urine Mucus (Auto) Urine Ascorbic Acid Stool Occult Blood Slides for Path Review Blood Type Antibody Screen Crossmatch 05/11/19 05/11/19 05/11/19 15:04 17:30 21:15 WBC RBC Hgb Hct MCV MCH MCHC RDW Plt Count Lymph % (Auto) Bertie % (Auto) Eos % (Auto) Baso % (Auto) Reticulocyte # Absolute Neuts (auto) Absolute Lymphs (auto) Absolute Monos (auto) Absolute Eos (auto) Absolute Basos (auto) Seg Neutrophils % Platelet Estimate Retic Count (auto) PT INR APTT Carbonic Acid HCO3/H2CO3 Ratio ABG pH ABG pCO2 ABG pO2 ABG HCO3 ABG Total CO2 ABG O2 Saturation ABG Base Excess FiO2 Sodium Potassium Chloride Carbon Dioxide Anion Gap BUN Creatinine Est GFR ( Amer) Est GFR (Non-Af Amer) Est GFR (MDRD) Non-Af Glucose POC Glucose 214 H 153 H Hemoglobin A1c % Calcium Magnesium Iron TIBC % Saturation Ferritin Total Bilirubin Direct Bilirubin Neonat Total Bilirubin Neonat Direct Bilirubin Neonat Indirect Bili AST ALT Alkaline Phosphatase Creatine Kinase CK-MB (CK-2) Troponin I NT-Pro-B Natriuret Pep Total Protein Albumin Triglycerides Cholesterol LDL Cholesterol Direct VLDL Cholesterol HDL Cholesterol Lipase EGFR Vitamin B12 Folate TSH Free T4 Urine Color Urine Appearance Urine pH Ur Specific [place] Urine Protein Urine Glucose (UA) Urine Ketones Urine Blood Urine Nitrite Urine Bilirubin Urine Urobilinogen Ur Leukocyte Esterase Urine WBC (Auto) Urine RBC (Auto) Urine Bacteria (Auto) Squamous Epi Cells Auto Urine Mucus (Auto) Urine Ascorbic Acid Stool Occult Blood NEGATIVE Slides for Path Review Blood Type Antibody Screen Crossmatch 05/12/19 05/12/19 05/12/19 05:20 05:20 12:04 WBC 5.6 RBC 2.53 L Hgb 7.7 L Hct 24.1 L MCV 95 MCH 30.3 MCHC 31.9 L RDW 16.6 H Plt Count 206 Lymph % (Auto) 25.3 Bertie % (Auto) 12.2 Eos % (Auto) 3.7 Baso % (Auto) 0.5 Reticulocyte # Absolute Neuts (auto) 3.2 Absolute Lymphs (auto) 1.4 Absolute Monos (auto) 0.7 Absolute Eos (auto) 0.2 Absolute Basos (auto) 0.0 Seg Neutrophils % 58.3 Platelet Estimate Retic Count (auto) PT INR APTT Carbonic Acid HCO3/H2CO3 Ratio ABG pH ABG pCO2 ABG pO2 ABG HCO3 ABG Total CO2 ABG O2 Saturation ABG Base Excess FiO2 Sodium 141.4 Potassium 5.3 H Chloride 107 Carbon Dioxide 28 Anion Gap 6 BUN 39 H Creatinine 1.21 Est GFR ( Amer) 54 L Est GFR (Non-Af Amer) Est GFR (MDRD) Non-Af 45 L Glucose 117 H POC Glucose 143 H Hemoglobin A1c % Calcium 9.0 Magnesium 2.7 H Iron TIBC % Saturation Ferritin Total Bilirubin Direct Bilirubin Neonat Total Bilirubin Neonat Direct Bilirubin Neonat Indirect Bili AST ALT Alkaline Phosphatase Creatine Kinase CK-MB (CK-2) Troponin I NT-Pro-B Natriuret Pep Total Protein Albumin Triglycerides Cholesterol LDL Cholesterol Direct VLDL Cholesterol HDL Cholesterol Lipase EGFR Vitamin B12 Folate TSH Free T4 Urine Color Urine Appearance Urine pH Ur Specific [place] Urine Protein Urine Glucose (UA) Urine Ketones Urine Blood Urine Nitrite Urine Bilirubin Urine Urobilinogen Ur Leukocyte Esterase Urine WBC (Auto) Urine RBC (Auto) Urine Bacteria (Auto) Squamous Epi Cells Auto Urine Mucus (Auto) Urine Ascorbic Acid Stool Occult Blood Slides for Path Review Blood Type Antibody Screen Crossmatch 05/12/19 05/12/19 05/13/19 16:30 21:30 05:00 WBC RBC Hgb Hct MCV MCH MCHC RDW Plt Count Lymph % (Auto) Bertie % (Auto) Eos % (Auto) Baso % (Auto) Reticulocyte # Absolute Neuts (auto) Absolute Lymphs (auto) Absolute Monos (auto) Absolute Eos (auto) Absolute Basos (auto) Seg Neutrophils % Platelet Estimate Retic Count (auto) PT INR APTT Carbonic Acid HCO3/H2CO3 Ratio ABG pH ABG pCO2 ABG pO2 ABG HCO3 ABG Total CO2 ABG O2 Saturation ABG Base Excess FiO2 Sodium 141.0 Potassium 5.4 H Chloride 107 Carbon Dioxide 27 Anion Gap 7 BUN 45 H Creatinine 1.24 Est GFR ( Amer) 53 L Est GFR (Non-Af Amer) Est GFR (MDRD) Non-Af 44 L Glucose 86 POC Glucose 149 H 206 H Hemoglobin A1c % Calcium 9.1 Magnesium Iron TIBC % Saturation Ferritin Total Bilirubin Direct Bilirubin Neonat Total Bilirubin Neonat Direct Bilirubin Neonat Indirect Bili AST ALT Alkaline Phosphatase Creatine Kinase CK-MB (CK-2) Troponin I NT-Pro-B Natriuret Pep Total Protein Albumin Triglycerides Cholesterol LDL Cholesterol Direct VLDL Cholesterol HDL Cholesterol Lipase EGFR Vitamin B12 Folate TSH Free T4 Urine Color Urine Appearance Urine pH Ur Specific [place] Urine Protein Urine Glucose (UA) Urine Ketones Urine Blood Urine Nitrite Urine Bilirubin Urine Urobilinogen Ur Leukocyte Esterase Urine WBC (Auto) Urine RBC (Auto) Urine Bacteria (Auto) Squamous Epi Cells Auto Urine Mucus (Auto) Urine Ascorbic Acid Stool Occult Blood Slides for Path Review Blood Type Antibody Screen Crossmatch 05/13/19 05/13/19 05/13/19 07:36 08:00 12:51 WBC 5.5 RBC 2.67 L Hgb 8.1 L Hct 25.1 L MCV 94 MCH 30.4 MCHC 32.3 RDW 16.6 H Plt Count 210 Lymph % (Auto) 25.3 Bertie % (Auto) 12.1 Eos % (Auto) 3.3 Baso % (Auto) 0.6 Reticulocyte # Absolute Neuts (auto) 3.2 Absolute Lymphs (auto) 1.4 Absolute Monos (auto) 0.7 Absolute Eos (auto) 0.2 Absolute Basos (auto) 0.0 Seg Neutrophils % 58.7 Platelet Estimate Retic Count (auto) PT INR APTT Carbonic Acid HCO3/H2CO3 Ratio ABG pH ABG pCO2 ABG pO2 ABG HCO3 ABG Total CO2 ABG O2 Saturation ABG Base Excess FiO2 Sodium Potassium Chloride Carbon Dioxide Anion Gap BUN Creatinine Est GFR ( Amer) Est GFR (Non-Af Amer) Est GFR (MDRD) Non-Af Glucose POC Glucose 73 102 Hemoglobin A1c % Calcium Magnesium Iron TIBC % Saturation Ferritin Total Bilirubin Direct Bilirubin Neonat Total Bilirubin Neonat Direct Bilirubin Neonat Indirect Bili AST ALT Alkaline Phosphatase Creatine Kinase CK-MB (CK-2) Troponin I NT-Pro-B Natriuret Pep Total Protein Albumin Triglycerides Cholesterol LDL Cholesterol Direct VLDL Cholesterol HDL Cholesterol Lipase EGFR Vitamin B12 Folate TSH Free T4 Urine Color Urine Appearance Urine pH Ur Specific [place] Urine Protein Urine Glucose (UA) Urine Ketones Urine Blood Urine Nitrite Urine Bilirubin Urine Urobilinogen Ur Leukocyte Esterase Urine WBC (Auto) Urine RBC (Auto) Urine Bacteria (Auto) Squamous Epi Cells Auto Urine Mucus (Auto) Urine Ascorbic Acid Stool Occult Blood Slides for Path Review Blood Type Antibody Screen Crossmatch 05/13/19 05/13/19 05/14/19 16:27 21:15 05:40 WBC 5.0 RBC 2.67 L Hgb 8.0 L Hct 25.2 L MCV 94 MCH 29.9 MCHC 31.7 L RDW 16.6 H Plt Count 198 Lymph % (Auto) 22.8 Bertie % (Auto) 11.1 Eos % (Auto) 3.4 Baso % (Auto) 0.7 Reticulocyte # Absolute Neuts (auto) 3.1 Absolute Lymphs (auto) 1.2 Absolute Monos (auto) 0.6 Absolute Eos (auto) 0.2 Absolute Basos (auto) 0.0 Seg Neutrophils % 62.0 Platelet Estimate Retic Count (auto) PT INR APTT Carbonic Acid HCO3/H2CO3 Ratio ABG pH ABG pCO2 ABG pO2 ABG HCO3 ABG Total CO2 ABG O2 Saturation ABG Base Excess FiO2 Sodium Potassium Chloride Carbon Dioxide Anion Gap BUN Creatinine Est GFR ( Amer) Est GFR (Non-Af Amer) Est GFR (MDRD) Non-Af Glucose POC Glucose 133 H 139 H Hemoglobin A1c % Calcium Magnesium Iron TIBC % Saturation Ferritin Total Bilirubin Direct Bilirubin Neonat Total Bilirubin Neonat Direct Bilirubin Neonat Indirect Bili AST ALT Alkaline Phosphatase Creatine Kinase CK-MB (CK-2) Troponin I NT-Pro-B Natriuret Pep Total Protein Albumin Triglycerides Cholesterol LDL Cholesterol Direct VLDL Cholesterol HDL Cholesterol Lipase EGFR Vitamin B12 Folate TSH Free T4 Urine Color Urine Appearance Urine pH Ur Specific [place] Urine Protein Urine Glucose (UA) Urine Ketones Urine Blood Urine Nitrite Urine Bilirubin Urine Urobilinogen Ur Leukocyte Esterase Urine WBC (Auto) Urine RBC (Auto) Urine Bacteria (Auto) Squamous Epi Cells Auto Urine Mucus (Auto) Urine Ascorbic Acid Stool Occult Blood Slides for Path Review Blood Type Antibody Screen Crossmatch 05/14/19 05/14/19 05/14/19 05:40 07:13 07:25 WBC RBC Hgb Hct MCV MCH MCHC RDW Plt Count Lymph % (Auto) Bertie % (Auto) Eos % (Auto) Baso % (Auto) Reticulocyte # Absolute Neuts (auto) Absolute Lymphs (auto) Absolute Monos (auto) Absolute Eos (auto) Absolute Basos (auto) Seg Neutrophils % Platelet Estimate Retic Count (auto) PT INR APTT Carbonic Acid HCO3/H2CO3 Ratio ABG pH ABG pCO2 ABG pO2 ABG HCO3 ABG Total CO2 ABG O2 Saturation ABG Base Excess FiO2 Sodium 142.1 Potassium 5.4 H Chloride 108 H Carbon Dioxide 26 Anion Gap 8 BUN 47 H Creatinine 1.21 Est GFR ( Amer) 54 L Est GFR (Non-Af Amer) Est GFR (MDRD) Non-Af 45 L Glucose 59 L POC Glucose 89 113 H Hemoglobin A1c % Calcium 9.3 Magnesium Iron TIBC % Saturation Ferritin Total Bilirubin 0.5 Direct Bilirubin 0.3 Neonat Total Bilirubin Not Reportable Neonat Direct Bilirubin Not Reportable Neonat Indirect Bili Not Reportable AST 51 H ALT 38 Alkaline Phosphatase 396 H Creatine Kinase CK-MB (CK-2) Troponin I NT-Pro-B Natriuret Pep Total Protein 8.0 Albumin 3.3 L Triglycerides Cholesterol LDL Cholesterol Direct VLDL Cholesterol HDL Cholesterol Lipase EGFR Vitamin B12 Folate TSH Free T4 Urine Color Urine Appearance Urine pH Ur Specific [place] Urine Protein Urine Glucose (UA) Urine Ketones Urine Blood Urine Nitrite Urine Bilirubin Urine Urobilinogen Ur Leukocyte Esterase Urine WBC (Auto) Urine RBC (Auto) Urine Bacteria (Auto) Squamous Epi Cells Auto Urine Mucus (Auto) Urine Ascorbic Acid Stool Occult Blood Slides for Path Review Blood Type Antibody Screen Crossmatch 05/14/19 05/14/19 05/14/19 09:00 11:18 21:55 WBC RBC Hgb Hct MCV MCH MCHC RDW Plt Count Lymph % (Auto) Bertie % (Auto) Eos % (Auto) Baso % (Auto) Reticulocyte # Absolute Neuts (auto) Absolute Lymphs (auto) Absolute Monos (auto) Absolute Eos (auto) Absolute Basos (auto) Seg Neutrophils % Platelet Estimate Retic Count (auto) PT INR APTT Carbonic Acid HCO3/H2CO3 Ratio ABG pH ABG pCO2 ABG pO2 ABG HCO3 ABG Total CO2 ABG O2 Saturation ABG Base Excess FiO2 Sodium Potassium Chloride Carbon Dioxide Anion Gap BUN Creatinine Est GFR ( Amer) Est GFR (Non-Af Amer) Est GFR (MDRD) Non-Af Glucose POC Glucose 103 141 H Hemoglobin A1c % Calcium Magnesium Iron TIBC % Saturation Ferritin Total Bilirubin Direct Bilirubin Neonat Total Bilirubin Neonat Direct Bilirubin Neonat Indirect Bili AST ALT Alkaline Phosphatase Creatine Kinase CK-MB (CK-2) Troponin I NT-Pro-B Natriuret Pep Total Protein Albumin Triglycerides Cholesterol LDL Cholesterol Direct VLDL Cholesterol HDL Cholesterol Lipase EGFR Vitamin B12 Folate TSH Free T4 Urine Color Urine Appearance Urine pH Ur Specific [place] Urine Protein Urine Glucose (UA) Urine Ketones Urine Blood Urine Nitrite Urine Bilirubin Urine Urobilinogen Ur Leukocyte Esterase Urine WBC (Auto) Urine RBC (Auto) Urine Bacteria (Auto) Squamous Epi Cells Auto Urine Mucus (Auto) Urine Ascorbic Acid Stool Occult Blood Slides for Path Review Blood Type A2subB POSITIVE Antibody Screen NEGATIVE Crossmatch See Detail 05/15/19 05/15/19 05/15/19 02:00 07:28 11:04 WBC 6.0 RBC 3.19 L Hgb 9.5 L Hct 29.4 L MCV 92 MCH 30.0 MCHC 32.4 RDW 17.0 H Plt Count 193 Lymph % (Auto) 20.3 Bertie % (Auto) 9.7 Eos % (Auto) 2.6 Baso % (Auto) 0.4 Reticulocyte # Absolute Neuts (auto) 4.0 Absolute Lymphs (auto) 1.2 Absolute Monos (auto) 0.6 Absolute Eos (auto) 0.2 Absolute Basos (auto) 0.0 Seg Neutrophils % 67.0 Platelet Estimate Retic Count (auto) PT INR APTT Carbonic Acid HCO3/H2CO3 Ratio ABG pH ABG pCO2 ABG pO2 ABG HCO3 ABG Total CO2 ABG O2 Saturation ABG Base Excess FiO2 Sodium Potassium Chloride Carbon Dioxide Anion Gap BUN Creatinine Est GFR ( Amer) Est GFR (Non-Af Amer) Est GFR (MDRD) Non-Af Glucose POC Glucose 124 H 169 H Hemoglobin A1c % Calcium Magnesium Iron TIBC % Saturation Ferritin Total Bilirubin Direct Bilirubin Neonat Total Bilirubin Neonat Direct Bilirubin Neonat Indirect Bili AST ALT Alkaline Phosphatase Creatine Kinase CK-MB (CK-2) Troponin I NT-Pro-B Natriuret Pep Total Protein Albumin Triglycerides Cholesterol LDL Cholesterol Direct VLDL Cholesterol HDL Cholesterol Lipase EGFR Vitamin B12 Folate TSH Free T4 Urine Color Urine Appearance Urine pH Ur Specific [place] Urine Protein Urine Glucose (UA) Urine Ketones Urine Blood Urine Nitrite Urine Bilirubin Urine Urobilinogen Ur Leukocyte Esterase Urine WBC (Auto) Urine RBC (Auto) Urine Bacteria (Auto) Squamous Epi Cells Auto Urine Mucus (Auto) Urine Ascorbic Acid Stool Occult Blood Slides for Path Review Blood Type Antibody Screen Crossmatch 05/15/19 15:12 WBC RBC Hgb Hct MCV MCH MCHC RDW Plt Count Lymph % (Auto) Bertie % (Auto) Eos % (Auto) Baso % (Auto) Reticulocyte # Absolute Neuts (auto) Absolute Lymphs (auto) Absolute Monos (auto) Absolute Eos (auto) Absolute Basos (auto) Seg Neutrophils % Platelet Estimate Retic Count (auto) PT INR APTT Carbonic Acid HCO3/H2CO3 Ratio ABG pH ABG pCO2 ABG pO2 ABG HCO3 ABG Total CO2 ABG O2 Saturation ABG Base Excess FiO2 Sodium Potassium Chloride Carbon Dioxide Anion Gap BUN Creatinine Est GFR ( Amer) Est GFR (Non-Af Amer) Est GFR (MDRD) Non-Af Glucose POC Glucose 134 H Hemoglobin A1c % Calcium Magnesium Iron TIBC % Saturation Ferritin Total Bilirubin Direct Bilirubin Neonat Total Bilirubin Neonat Direct Bilirubin Neonat Indirect Bili AST ALT Alkaline Phosphatase Creatine Kinase CK-MB (CK-2) Troponin I NT-Pro-B Natriuret Pep Total Protein Albumin Triglycerides Cholesterol LDL Cholesterol Direct VLDL Cholesterol HDL Cholesterol Lipase EGFR Vitamin B12 Folate TSH Free T4 Urine Color Urine Appearance Urine pH Ur Specific [place] Urine Protein Urine Glucose (UA) Urine Ketones Urine Blood Urine Nitrite Urine Bilirubin Urine Urobilinogen Ur Leukocyte Esterase Urine WBC (Auto) Urine RBC (Auto) Urine Bacteria (Auto) Squamous Epi Cells Auto Urine Mucus (Auto) Urine Ascorbic Acid Stool Occult Blood Slides for Path Review Blood Type Antibody Screen Crossmatch Chest X-Ray 04/30/19 07:05 IMPRESSION: CARDIAC ENLARGEMENT. VASCULAR CONGESTION. Foot X-Ray 04/30/19 09:29 IMPRESSION: No evidence of osteomyelitis. Chest X-Ray 04/30/19 14:46 IMPRESSION: Interval placement of right subclavian vascular catheter, tip projecting over the right atrium. Otherwise stable AP portable examination with mild diffuse interstitial pulmonary opacity, likely edema, and gross cardiomegaly. Status post median sternotomy. Abdomen/Pelvis CT 05/05/19 00:00 IMPRESSION: 1. Similar appearance compared to prior study. 2. Cardiomegaly and mild pleural fluid, suggests mild congestive failure. 3. Mildly heterogeneous liver, transient. See above. This is nonspecific. 4. Heavy atherosclerosis. 5. Pelvic findings are nonprogressive including what may be a gas and fluid containing diverticulum in the left hemipelvis. 6. No acute findings are suggested otherwise. Chest X-Ray 05/11/19 00:00 IMPRESSION: Stable cardiomegaly. IMPRESSION/RECOMMENDATION: 1. Nosebleeds. This has resolved with stopping of the Eliquis. The patient would definitely need a ENT evaluation prior to restarting the patient's Eliquis.. Continue Plavix. 2. Abdominal pain: No severe pathology by EGD. Patient has intermittent nonspecific abdominal pain, which is mild. There is no nausea vomiting. The patient has been started on mesalamine. 3. CHRONIC DIASTOLIC HEART FAILURE: At present compensated. At present the patient's ejection fraction is normal. 4. ANEMIA: The patient is being transfused with blood today. 5. Paroxysmal atrial fibrillation: At present the patient is in sinus rhythm. 6. HYPERTENSION: Well controlled. Continue her current medications. 7. CORONARY ARTERY DISEASE: Prior history of myocardial infarction and history of coronary artery bypass graft surgery. No anginal symptoms. 8.but would recommend since the patient is not a good historian to get a IV Lexiscan Cardiolite stress test later.. 9. NONCOMPLIANCE.: The importance of compliance with diet and medications stressed with the patient. 10. CHRONIC OBSTRUCTIVE PULMONARY DISEASE: Continue current inhalers. 11. PERIPHERAL ARTERIAL DISEASE.: Patient with nonhealing ulcers of her both feet./Heels. 12. OBSTRUCTIVE SLEEP APNEA we will continue the patient on CPAP and continue the patient's Symbicort and Advair Diskus. 13.. DIABETES MELLITUS with peripheral arterial disease. Stable 14. Obesity. Medications reviewed. Medical regimen and management plan discussed with Dr. Dixon. Medical decision making is of moderate complexity. 40 minutes spent on this patient with more than 50% of time spent in direct patient care. Will follow.
[2019-05-15] MEDS: PATIROMER 8.4 GM SUSP PACKET PO SCH (17:33)
[2019-05-15] MEDS: MAG HYDROX/AL HYDROX/SIMETH SUSP 30 ML UDCUP PO PRN (18:48)
--- NOTE | 2019-05-15 19:26 | PDOC PROGRESS REPORT ---
Subjective Progress Note for:: 05/15/19 Subjective:: Patient denied any nose bleed so far today. She continue to experience abdominal pain. No nausea or vomiting. No fever or chills. Reason For Visit: ACUTE SYSTOLIC HEART FAILURE,H/O CHRONIC COMBINED Physical Exam Vital Signs: Temp Pulse Resp BP Pulse Ox 97.9 F 64 16 137/63 H 98 05/15/19 15:09 05/15/19 15:09 05/15/19 15:09 05/15/19 15:09 05/15/19 15:09 Intake & Output 05/14/19 05/15/19 05/16/19 06:59 06:59 06:59 Intake Total 1280 2230 960 Output Total 2145 2575 900 Balance -865 -345 60 Weight 96.4 kg 94.5 kg Physical Exam: Head exam: PRESENT: atraumatic, normocephalic Eye exam: PRESENT: conjunctiva pink. ABSENT: pallor, scleral icterus Ear exam: PRESENT: normal external ear exam Mouth exam: PRESENT: moist Nose exam: No evidence of fresh blooding. Teeth exam: PRESENT: poor dentition Respiratory exam: PRESENT: clear to auscultation [place], decreased breath sounds - at lung bases Cardiovascular exam: PRESENT: RRR. ABSENT: diastolic murmur, rubs, systolic murmur GI/Abdominal exam: PRESENT: normal bowel sounds, soft, nonspecific tenderness to palpation over epigastrium and lower quadrants regions ABSENT: distended, guarding, mass, organomegaly, rebound Extremities exam: PRESENT: pedal edema - comparatively improved Neurological exam: PRESENT: alert, awake, oriented to person, oriented to place, oriented to time, oriented to situation, CN II-XII grossly intact. ABSENT: motor sensory deficit Psychiatric exam: PRESENT: appropriate affect, normal mood. ABSENT: homicidal ideation, suicidal ideation Skin exam: PRESENT: dry, warm, other - improving left calcaneal region diabetic ulcer. Results Laboratory Results: 05/15/19 02:00 05/14/19 05:40 05/14/19 05/15/19 09:00 02:00 WBC 6.0 RBC 3.19 L Hgb 9.5 L Hct 29.4 L MCV 92 MCH 30.0 MCHC 32.4 RDW 17.0 H Plt Count 193 Seg Neutrophils % 67.0 Blood Type A2subB POSITIVE Antibody Screen NEGATIVE 04/30/19 04/30/19 04/30/19 07:46 09:13 17:15 Creatine Kinase CK-MB (CK-2) Troponin I Cancelled < 0.012 NT-Pro-B Natriuret Pep 5490 H 04/30/19 04/30/19 05/01/19 23:03 23:03 11:39 Creatine Kinase 33 34 CK-MB (CK-2) 0.53 Troponin I < 0.012 NT-Pro-B Natriuret Pep 05/01/19 05/09/19 05/09/19 11:39 20:15 20:15 Creatine Kinase 118 CK-MB (CK-2) 0.36 0.93 Troponin I < 0.012 0.012 NT-Pro-B Natriuret Pep 05/10/19 05/10/19 05/10/19 02:30 02:30 09:00 Creatine Kinase 90 87 CK-MB (CK-2) 0.80 Troponin I < 0.012 NT-Pro-B Natriuret Pep 05/10/19 09:00 Creatine Kinase CK-MB (CK-2) 0.73 Troponin I 0.013 NT-Pro-B Natriuret Pep Impressions: Foot X-Ray 04/30/19 09:29 IMPRESSION: No evidence of osteomyelitis. Abdomen/Pelvis CT 05/05/19 00:00 IMPRESSION: 1. Similar appearance compared to prior study. 2. Cardiomegaly and mild pleural fluid, suggests mild congestive failure. 3. Mildly heterogeneous liver, transient. See above. This is nonspecific. 4. Heavy atherosclerosis. 5. Pelvic findings are nonprogressive including what may be a gas and fluid containing diverticulum in the left hemipelvis. 6. No acute findings are suggested otherwise. Chest X-Ray 05/11/19 00:00 IMPRESSION: Stable cardiomegaly. Assessment & Plan - Diagnosis (1) Upper abdominal pain Is this a current diagnosis for this admission?: Yes (2) Acute on chronic combined systolic and diastolic CHF, NYHA class 3 Is this a current diagnosis for this admission?: Yes (3) Decubitus ulcer of left heel, stage 4 Is this a current diagnosis for this admission?: Yes (4) Diabetes mellitus type 2 in obese Is this a current diagnosis for this admission?: Yes (5) Hypertension Qualifiers: Hypertension type: essential hypertension Qualified Code(s): I10 - Essential (primary) hypertension Is this a current diagnosis for this admission?: Yes (6) CAD (coronary artery disease) Qualifiers: Coronary Disease-Associated Artery/Lesion type: unspecified vessel or lesion type [place] vs. transplanted heart: [place] heart Associated angina: without angina Qualified Code(s): I25.10 - Atherosclerotic heart disease of [place] coronary artery without angina pectoris Is this a current diagnosis for this admission?: Yes (7) Hyperlipidemia Qualifiers: Hyperlipidemia type: unspecified Qualified Code(s): E78.5 - Hyperlipidemia, unspecified Is this a current diagnosis for this admission?: Yes (8) S/P CABG (coronary artery bypass graft) Is this a current diagnosis for this admission?: Yes (9) Chronic use of opiate for therapeutic purpose Is this a current diagnosis for this admission?: Yes (10) Hyperkalemia Is this a current diagnosis for this admission?: Yes (11) Antral gastritis Is this a current diagnosis for this admission?: Yes (12) Nasal bleeding Is this a current diagnosis for this admission?: Yes (13) Abnormal CT scan, gastrointestinal tract Is this a current diagnosis for this admission?: Yes - Time Time Spent with patient: 25-34 minutes Level of Care: IMCU Medications reviewed and adjusted accordingly: Yes Anticipated discharge: Home with Homehealth Within: Other - Inpatient Certification Based on my medical assessment, after consideration of the patient's comorbidities, presenting symptoms, or acuity I expect that the services needed warrant INPATIENT care.: Yes I certify that my determination is in accordance with my understanding of Medicare's requirements for reasonable and necessary INPATIENT services [42 CFR 412.3e].: Yes Medical Necessity: Significant Comorbidiites Make Outpatient Treatment Too Risky, Need Close Monitoring Due to Risk of Patient Decompensation, Need For Con tinuous Telemetry Monitoring, Need for Pain Control, Risk of Complication if Not Cared For in Hospital, Risk of Diagnosis Which Will Require Inpatient Eval/Care/Monitoring Post Hospital Care: D/C Regional Environmental Manager Documentation - Plan Summary Plan Summary: Continue to hold Eliquis. ENT consult did not show so far. Continue all other current medication management. Possible discharge home tomorrow was discussed with patient during this bedside visit and she is in agreement.
[2019-05-15] MEDS: INSULIN GLARGINE,HUM.REC.ANLOG 1,000 UNIT/10 ML VIAL SUBCUT SCH (21:58)
[2019-05-15] MEDS: ATORVASTATIN CALCIUM 20 MG TABLET PO SCH (22:04)
[2019-05-16] MEDS: SUCRALFATE 1 GM TABLET PO SCH ×4 (05:37→23:07)
[2019-05-16] MEDS: GABAPENTIN 300 MG CAPSULE PO SCH ×3 (05:37→22:20)
[2019-05-16] MEDS: PANTOPRAZOLE SODIUM 40 MG TABLET.DR PO SCH (05:37)
[2019-05-16] MEDS: INSULIN LISPRO 100 UNIT/ML 3 ML VIAL SUBCUT SCH ×4 (09:00→22:16)
[2019-05-16] MEDS: MESALAMINE 400 MG CAPSULE.DR PO SCH ×3 (10:51→17:45)
[2019-05-16] MEDS: ASCORBIC ACID 500 MG TABLET PO SCH (10:52)
[2019-05-16] MEDS: VALSARTAN 160 MG TABLET PO SCH (10:52)
[2019-05-16] MEDS: CLOPIDOGREL BISULFATE 75 MG TABLET PO SCH (10:52)
[2019-05-16] MEDS: ESCITALOPRAM OXALATE 10 MG TABLET PO SCH (10:52)
[2019-05-16] MEDS: AMLODIPINE BESYLATE 10 MG TABLET PO SCH (10:52)
[2019-05-16] MEDS: FERROUS SULFATE 325 MG TABLET PO SCH (10:52)
[2019-05-16] MEDS: MULTIVITAMIN TABLET PO SCH (10:52)
[2019-05-16] MEDS: FUROSEMIDE 40 MG TABLET PO SCH ×2 (10:53→17:45)
[2019-05-16] MEDS: PATIROMER 8.4 GM SUSP PACKET PO SCH (17:45)
--- NOTE | 2019-05-16 19:24 | PDOC DISCHARGE SUMMARY ---
Impression - Admit/DC Date/PCP Admission Date/Primary Care Provider: 04/30/19 11:55 STEPHAN MICHELET Discharge Date: 05/16/19 - Discharge Diagnosis (1) Acute on chronic combined systolic and diastolic CHF, NYHA class 3 Is this a current diagnosis for this admission?: Yes (2) Upper abdominal pain Is this a current diagnosis for this admission?: Yes (3) Antral gastritis Is this a current diagnosis for this admission?: Yes (4) Decubitus ulcer of left heel, stage 4 Is this a current diagnosis for this admission?: Yes (5) Diabetes mellitus type 2 in obese Is this a current diagnosis for this admission?: Yes (6) Hypertension Is this a current diagnosis for this admission?: Yes (7) CAD (coronary artery disease) Is this a current diagnosis for this admission?: Yes (8) Hyperlipidemia Is this a current diagnosis for this admission?: Yes (9) S/P CABG (coronary artery bypass graft) Is this a current diagnosis for this admission?: Yes (10) Chronic use of opiate for therapeutic purpose Is this a current diagnosis for this admission?: Yes (11) Hyperkalemia Is this a current diagnosis for this admission?: Yes (12) Nasal bleeding Is this a current diagnosis for this admission?: Yes (13) Abnormal CT scan, gastrointestinal tract Is this a current diagnosis for this admission?: Yes - Assessment Summary: She was admitted for decompensated combined CHF and epigastric pain. She was managed with IV diuretic for fluid overload and other anti failure medication. She was seen in consultation by Dr. Navarro and eventually had EGD that revealed antral gastritis. Her hospital stay was prolonged due to persistent lower abdominal pain and her CAT scan of abdomen and pelvis did suggest right sided inflammatory changes. She was not deemed candidate for colonoscopy at this time due to her triple antiplatelet therapy. Her Ecotrin and Eliquis were discontinued due to recurrent episodes of nasal bleeding. Request for ENT consultation was unsuccessful. She was seen in consultation by Dr. Mayer, medical administrative, with recommendation to stop Eliquis therapy. Her hemoglobin did drop to level in need for blood transfusion. Her abdominal pain has improved after she was started empirically on Mesalamine therapy. She will be discharged home today with post acute care consultation with Dr Navarro for outpatient colonoscopy and Dr Mayer for further cardiac management. She will follow up with me in the office as instructed upon discharge. - Additional Information Resuscitation Status: Full Code Discharge Diet: Cardiac, Diabetic Discharge Activity: Activity As Tolerated, Balance Activity w/Rest, Weigh Daily Referrals: GEORGIANA NAVARRO MD [ACTIVE STAFF] - STEPHAN TAFOYA MD [Primary Care Provider] - 05/21/19 10:00 am (Dr. Tafoya will schedule) RICHIE LARIOS MD [ACTIVE STAFF] - Prescriptions: Sucralfate [Carafate 1 gm Tablet] 1 gm PO Q6 #120 tablet Escitalopram Oxalate [Lexapro 10 mg Tablet] 10 mg PO QHS #30 tablet Mesalamine [Mesalamine Dr] 800 mg PO TID 30 Days #180 cap.drtab. Sodium Chloride [Giles Nasal [place] 44 ml Bottle] 1 spray NASL PRN PRN #1 bottle PRN Reason: Home Medications: Amlodipine Besylate [Norvasc 10 mg Tablet] 10 mg PO DAILY 02/14/19 Ascorbic Acid [Vitamin C 500 mg Tablet] 500 mg PO DAILY 02/14/19 Atorvastatin Calcium [Lipitor 20 mg Tablet] 20 mg PO QHS 02/14/19 Docusate Sodium [Colace 100 mg Capsule] 100 mg PO BIDP PRN 02/14/19 Ferrous Sulfate [Feosol 325 mg Tablet] 325 mg PO DAILY 02/14/19 Furosemide [Lasix 20 mg Tablet] 40 mg PO BID 02/14/19 Nitroglycerin [Nitrostat 0.4 mg (1/150 Gr) Tabs 25/Bottle] 0.4 mg SL Q5MP PRN 02/14/19 Oxycodone HCl/Acetaminophen [Percocet 7.5-325 mg Tablet] 1 tab PO Q6HP PRN 02/14/19 Valsartan [Diovan 160 mg Tablet] 160 mg PO DAILY 02/14/19 Clopidogrel Bisulfate [Plavix 75 mg Tablet] 75 mg PO DAILY 03/23/19 Gabapentin [Neurontin 300 mg Capsule] 300 mg PO Q8 03/23/19 Insulin Aspart [Novolog Flexpen] 0 unit SQ .SLIDING SCALE 03/23/19 Insulin Degludec [Tresiba Flextouch U-100] 40 unit SQ DAILY 03/23/19 Multivit,Tx with Iron,Minerals [Thera-M] 1 each PO DAILY 03/23/19 Mupirocin [Bactroban 2% Ointment 22 gm] 1 applic TP BID 5 Days #1 tube 03/30/19 Escitalopram Oxalate [Lexapro 10 mg Tablet] 10 mg PO QHS #30 tablet 05/16/19 Mesalamine [Mesalamine Dr] 800 mg PO TID 30 Days #180 cap.drtab. 05/16/19 Sodium Chloride [Giles Nasal [place] 44 ml Bottle] 1 spray NASL PRN PRN #1 bottle 05/16/19 Sucralfate [Carafate 1 gm Tablet] 1 gm PO Q6 #120 tablet 05/16/19 History of Present Illiness History of Present Illness: JAVIER BURGER is a 63 year old female, she has a history of chronic combined systolic and diastolic heart failure, she is well-known to this facility with [facility], she came to the emergency room for evaluation supposedly of chest pain. According to the emergency room physician note the chest pain was substernal with radiation to the extremities. When I saw the patient she complained of burning sensation of the epigastrium she said it feels like heartburn ,the BNP was elevated suggesting CHF. The chest x-ray that was done in the emergency room demonstrated cardiomegaly with vascular congestion. She has chronic venous hypertension of the lower extremity due to CHF the burning sensation of the epigastrium could be from portal vein gastropathy from CHF. Hospital Course Hospital Course: She was admitted for decompensated combined CHF and epigastric pain. She was managed with IV diuretic for fluid overload and other anti failure medication. She was seen in consultation by Dr. Navarro and eventually had EGD that revealed antral gastritis. Her hospital stay was prolonged due to persistent lower abdominal pain and her CAT scan of abdomen and pelvis did suggest right sided inflammatory changes. She was not deemed candidate for colonoscopy at this time due to her triple antiplatelet therapy. Her Ecotrin and Eliquis were discontinued due to recurrent episodes of nasal bleeding. Request for ENT consultation was unsuccessful. She was seen in consultation by Dr. Mayer, medical administrative, with recommendation to stop Eliquis therapy. Her hemoglobin did drop to level in need for blood transfusion. Her abdominal pain has improved after she was started empirically on Mesalamine therapy. She will be discharged home today with post acute care consultation with Dr Navarro for outpatient colonoscopy and Dr Mayer for further cardiac management. She will follow up with me in the office as instructed upon discharge. Physical Exam Vital Signs: Temp Pulse Resp BP Pulse Ox 98.5 F 71 18 137/58 H 95 05/16/19 16:10 05/16/19 16:10 05/16/19 16:10 05/16/19 16:10 05/16/19 16:10 Intake & Output 05/15/19 05/16/19 05/17/19 06:59 06:59 06:59 Intake Total 2230 960 610 Output Total 2575 3500 1975 Balance -345 -2430 -1365 Weight 94.5 kg 95.5 kg Head exam: PRESENT: atraumatic, normocephalic Eye exam: PRESENT: conjunctiva pink. ABSENT: pallor, scleral icterus Ear exam: PRESENT: normal external ear exam Mouth exam: PRESENT: moist Nose exam: No evidence of fresh blooding. Teeth exam: PRESENT: poor dentition Respiratory exam: PRESENT: clear to auscultation jerrica, decreased breath sounds - at lung bases Cardiovascular exam: PRESENT: RRR. ABSENT: diastolic murmur, rubs, systolic murmur GI/Abdominal exam: PRESENT: normal bowel sounds, soft, nonspecific tenderness to palpation over epigastrium and lower quadrants regions ABSENT: distended, guarding, mass, organomegaly, rebound Extremities exam: PRESENT: pedal edema - comparatively improved Neurological exam: PRESENT: alert, awake, oriented to person, oriented to place, oriented to time, oriented to situation, CN II-XII grossly intact. ABSENT: motor sensory deficit Psychiatric exam: PRESENT: appropriate affect, normal mood. ABSENT: homicidal ideation, suicidal ideation Skin exam: PRESENT: dry, warm, other - improved left calcaneal region diabetic ulcer. Results Laboratory Results: WBC 6.0 10^3/uL (4.0-10.5) 05/15/19 02:00 RBC 3.19 10^6/uL (3.72-5.28) L 05/15/19 02:00 Hgb 9.5 g/dL (12.0-15.5) L 05/15/19 02:00 Hct 29.4 % (36.0-47.0) L 05/15/19 02:00 MCV 92 fl (80-97) 05/15/19 02:00 MCH 30.0 pg (27.0-33.4) 05/15/19 02:00 MCHC 32.4 g/dL (32.0-36.0) 05/15/19 02:00 RDW 17.0 % (11.5-14.0) H 05/15/19 02:00 Plt Count 193 10^3/uL (150-450) 05/15/19 02:00 Lymph % (Auto) 20.3 % (13-45) 05/15/19 02:00 [place] % (Auto) 9.7 % (3-13) 05/15/19 02:00 Eos % (Auto) 2.6 % (0-6) 05/15/19 02:00 Baso % (Auto) 0.4 % (0-2) 05/15/19 02:00 Reticulocyte # 0.040 10^6/uL (0.028-0.122) 05/11/19 05:50 Absolute Neuts (auto) 4.0 10^3/uL (1.7-8.2) 05/15/19 02:00 Absolute Lymphs (auto) 1.2 10^3/uL (0.5-4.7) 05/15/19 02:00 Absolute Monos (auto) 0.6 10^3/uL (0.1-1.4) 05/15/19 02:00 Absolute Eos (auto) 0.2 10^3/uL (0.0-0.6) 05/15/19 02:00 Absolute Basos (auto) 0.0 10^3/uL (0.0-0.2) 05/15/19 02:00 Seg Neutrophils % 67.0 % (42-78) 05/15/19 02:00 Platelet Estimate Cancelled 04/30/19 07:46 Retic Count (auto) 1.52 % (0.66-2.85) 05/11/19 05:50 PT 15.5 SEC (11.4-15.4) H 04/30/19 17:15 INR 1.22 04/30/19 17:15 APTT 30.3 SEC (23.5-35.8) 04/30/19 17:15 Carbonic Acid 1.13 mmol/L (1.05-1.35) 04/30/19 16:54 HCO3/H2CO3 Ratio 22:1 12/25/19 16:54 ABG pH 7.45 (7.35-7.45) 04/30/19 16:54 ABG pCO2 37.6 mmHg (35-45) 04/30/19 16:54 ABG pO2 50.8 mmHg (80-100) L 04/30/19 16:54 ABG HCO3 25.5 mmol/L (20-24) H 04/30/19 16:54 ABG Total CO2 26.6 mmol/L (21-25) H 04/30/19 16:54 ABG O2 Saturation 87.7 % (94-98) L 04/30/19 16:54 ABG Base Excess 1.5 mmol/L 04/30/19 16:54 FiO2 ROOM AIR 04/30/19 16:54 Sodium 142.1 mmol/L (137-145) 05/14/19 05:40 Potassium 5.4 mmol/L (3.6-5.0) H 05/14/19 05:40 Chloride 108 mmol/L (98-107) H 05/14/19 05:40 Carbon Dioxide 26 mmol/L (22-30) 05/14/19 05:40 Anion Gap 8 (5-19) 05/14/19 05:40 BUN 47 mg/dL (7-20) H 05/14/19 05:40 Creatinine 1.21 mg/dL (0.52-1.25) 05/14/19 05:40 Est GFR ( Amer) 54 (>60) L 05/14/19 05:40 Est GFR (Non-Af Amer) Cancelled 04/30/19 07:46 Est GFR (MDRD) Non-Af 45 (>60) L 05/14/19 05:40 Glucose 59 mg/dL (75-110) L 05/14/19 05:40 POC Glucose 184 mg/dL (70-110) H 05/16/19 16:11 Hemoglobin A1c % 7.9 % (4.7-6.0) H 05/01/19 11:39 Calcium 9.3 mg/dL (8.4-10.2) 05/14/19 05:40 Magnesium 2.7 mg/dL (1.6-2.3) H 05/12/19 05:20 Iron 40.0 ug/dL (37-170) 05/11/19 05:50 TIBC 249 ug/dL (250-450) L 05/11/19 05:50 % Saturation 16 % 05/11/19 05:50 Ferritin 169.00 ng/mL (11.1-264.0) 05/11/19 05:50 Total Bilirubin 0.5 mg/dL (0.2-1.3) 05/14/19 05:40 Direct Bilirubin 0.3 mg/dL (0.0-0.4) 05/14/19 05:40 Neonat Total Bilirubin Not Reportable 05/14/19 05:40 Neonat Direct Bilirubin Not Reportable 05/14/19 05:40 Neonat Indirect Bili Not Reportable 05/14/19 05:40 AST 51 U/L (14-36) H 05/14/19 05:40 ALT 38 U/L (<35) 05/14/19 05:40 Alkaline Phosphatase 396 U/L (38-126) H 05/14/19 05:40 Creatine Kinase 87 U/L (30-135) 05/10/19 09:00 CK-MB (CK-2) 0.73 ng/mL (<4.55) 05/10/19 09:00 Troponin I 0.013 ng/mL 05/10/19 09:00 NT-Pro-B Natriuret Pep 5490 pg/mL (<125) H 04/30/19 17:15 Total Protein 8.0 g/dL (6.3-8.2) 05/14/19 05:40 Albumin 3.3 g/dL (3.5-5.0) L 05/14/19 05:40 Triglycerides 56 mg/dL (<150) 05/02/19 04:52 Cholesterol 145.11 mg/dL (0-200) 05/02/19 04:52 LDL Cholesterol Direct 87 mg/dL (<100) 05/02/19 04:52 VLDL Cholesterol 11.0 mg/dL (10-31) 05/02/19 04:52 HDL Cholesterol 34 mg/dL (>40) L 05/02/19 04:52 Lipase 24.1 U/L (23-300) 04/30/19 09:13 EGFR Cancelled 04/30/19 07:46 Vitamin B12 467.0 pg/mL (239-931) 05/11/19 05:50 Folate > 20.00 ng/mL (>2.76) 05/11/19 05:50 TSH 1.28 uIU/mL (0.47-4.68) 04/30/19 17:15 Free T4 1.35 ng/dL (0.78-2.19) 04/30/19 17:15 Urine Color YELLOW 04/30/19 17:03 Urine Appearance CLEAR 04/30/19 17:03 Urine pH 7.0 (5.0-9.0) 04/30/19 17:03 Ur Specific [place] 1.011 04/30/19 17:03 Urine Protein 100 mg/dL (NEGATIVE) H 04/30/19 17:03 Urine Glucose (UA) NEGATIVE mg/dL (NEGATIVE) 04/30/19 17:03 Urine Ketones NEGATIVE mg/dL (NEGATIVE) 04/30/19 17:03 Urine Blood NEGATIVE (NEGATIVE) 04/30/19 17:03 Urine Nitrite NEGATIVE (NEGATIVE) 04/30/19 17:03 Urine Bilirubin NEGATIVE (NEGATIVE) 04/30/19 17:03 Urine Urobilinogen 4.0 mg/dL (<2.0) H 04/30/19 17:03 Ur Leukocyte Esterase NEGATIVE (NEGATIVE) 04/30/19 17:03 Urine WBC (Auto) 0 /HPF 04/30/19 17:03 Urine RBC (Auto) 2 /HPF 04/30/19 07:22 Urine Bacteria (Auto) TRACE /HPF 04/30/19 07:22 Squamous Epi Cells Auto <1 /HPF 04/30/19 17:03 Urine Mucus (Auto) RARE /LPF 04/30/19 17:03 Urine Ascorbic Acid 20 (NEGATIVE) H 04/30/19 17:03 Stool Occult Blood NEGATIVE (NEGATIVE) 05/11/19 17:30 Slides for Path Review Cancelled 04/30/19 07:46 Blood Type A2subB POSITIVE 05/14/19 09:00 Antibody Screen NEGATIVE 05/14/19 09:00 Crossmatch See Detail 05/14/19 09:00 04/30/19 04/30/19 04/30/19 07:46 09:13 17:15 CK-MB (CK-2) Troponin I Cancelled < 0.012 NT-Pro-B Natriuret Pep 5490 H 04/30/19 05/01/19 05/09/19 23:03 11:39 20:15 CK-MB (CK-2) 0.53 0.36 0.93 Troponin I < 0.012 < 0.012 0.012 NT-Pro-B Natriuret Pep 05/10/19 05/10/19 02:30 09:00 CK-MB (CK-2) 0.80 0.73 Troponin I < 0.012 0.013 NT-Pro-B Natriuret Pep Impressions: Chest X-Ray 04/30/19 07:05 IMPRESSION: CARDIAC ENLARGEMENT. VASCULAR CONGESTION. Foot X-Ray 04/30/19 09:29 IMPRESSION: No evidence of osteomyelitis. Chest X-Ray 04/30/19 14:46 IMPRESSION: Interval placement of right subclavian vascular catheter, tip projecting over the right atrium. Otherwise stable AP portable examination with mild diffuse interstitial pulmonary opacity, likely edema, and gross cardiomegaly. Status post median sternotomy. Abdomen/Pelvis CT 05/05/19 00:00 IMPRESSION: 1. Similar appearance compared to prior study. 2. Cardiomegaly and mild pleural fluid, suggests mild congestive failure. 3. Mildly heterogeneous liver, transient. See above. This is nonspecific. 4. Heavy atherosclerosis. 5. Pelvic findings are nonprogressive including what may be a gas and fluid containing diverticulum in the left hemipelvis. 6. No acute findings are suggested otherwise. Chest X-Ray 05/11/19 00:00 IMPRESSION: Stable cardiomegaly. Plan Health Concerns: High risk of readmission due to medication and dietary restriction noncompliance. Plan of Treatment: Enrollment in Home health agency CHF monitoring program to enhance medication and dietary restriction compliance. Goals: Reduce readmission risk with close outpatient follow up. Arrange for outpatient follow up with nurse case manager and medical administrative. Time Spent: Greater than 30 Minutes - post acute care coordination and counselling at bedside. Stroke Is this a Stroke Patient?: No Acute Heart Failure - Is this a Heart Failure Patient?: Yes Documentation of LVEF assessment?: Planned for after discharge - LVEF 60% on 11/14/2018. LVEF < 40%?: No- if no continue to question #3 3. Anticoagulant therapy for permanect/persistent/paraoxysmal Afib or Aflutter: N/A Follow-up Appointment scheduled within 7 days?: Yes
[2019-05-16] MEDS: MAG HYDROX/AL HYDROX/SIMETH SUSP 30 ML UDCUP PO PRN (19:37)
[2019-05-16] MEDS: OXYCODONE-ACETAMINOPHEN 5-325 MG TABLET PO PRN (19:40)
[2019-05-16] MEDS: INSULIN GLARGINE,HUM.REC.ANLOG 1,000 UNIT/10 ML VIAL SUBCUT SCH (22:17)
[2019-05-16] MEDS: ATORVASTATIN CALCIUM 20 MG TABLET PO SCH (22:20)
--- NOTE | 2019-05-16 23:27 | Progress Note ---
Provider Note Provider Note: CARDIOLOGY PROGRESS NOTE by Dr. Charlette Harding on 05/16/2019. OBJECTIVE: There is no further nosebleeds with the patient's Eliquis being stopped. She denies any chest pain or discomfort. Today there is no abdominal pain. There is no shortness of breath. There is no PND orthopnea. There is no arrhythmia seen on the monitor. There is no TIA CVA symptoms. There is no recurrence of atrial fibrillation. The patient remains in sinus rhythm. There is no ventricular arrhythmia seen on the monitor. PHYSICAL EXAMINATION: The patient is moderately obese. At present in no acute distress. Selected Entries 05/16/19 11:55 Temperature 98.3 F Temperature Oral Source Pulse Rate 71 Respiratory 18 Rate Blood Pressure 141/64 H Blood Pressure 89 Mean BP Location Right Arm BP Position Supine O2 Sat by Pulse 99 Oximetry Oxygen Delivery Room Air Method HEENT: Head is atraumatic/normocephalic. EYES: Pupils are equal round regular reactive to light accommodation external ocular movements are normal. There is no conjunctival pallor there is no scleral icterus. ENT is negative. Neck is supple there is no JVD carotids are equal there is no bruit there is no lymphadenopathy there is no goiter trachea is central.Lungs: There is diminished air entry and prolonged expiration without any rhonchi rales or wheezing. On percussion there is hyperresonance throughout. There are no rales of CHF. HEART: S1-S2 is heard there is no S3 gallop there is no S4 gallop there is a systolic murmur in the left sternal border and apex there is no rub. ABDOMEN: Abdomen is soft nontender there is no hepatosplenomegaly. Bowel sounds well heard there are no tender areas of masses. EXTREMITIES femorals are diminished. Leg pulses are difficult to palpate. There are no femoral bruits. There is dressing on the ulcers of both nonhealing ulcers of the feet which are. There is no pedal edema. There is no DVT or cellulitis there is no calf tenderness. 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 PSYCHIATRIC: The patient's judgment and insight are intact her affect is normal. Labs- All tests 24 hr 05/16/19 05/16/19 05/16/19 10:09 11:52 16:11 POC Glucose 121 H 139 H 184 H 05/16/19 21:09 POC Glucose 162 H Chest X-Ray 04/30/19 07:05 IMPRESSION: CARDIAC ENLARGEMENT. VASCULAR CONGESTION. Foot X-Ray 04/30/19 09:29 IMPRESSION: No evidence of osteomyelitis. Chest X-Ray 04/30/19 14:46 IMPRESSION: Interval placement of right subclavian vascular catheter, tip projecting over the right atrium. Otherwise stable AP portable examination with mild diffuse interstitial pulmonary opacity, likely edema, and gross cardiomegaly. Status post median sternotomy. Abdomen/Pelvis CT 05/05/19 00:00 IMPRESSION: 1. Similar appearance compared to prior study. 2. Cardiomegaly and mild pleural fluid, suggests mild congestive failure. 3. Mildly heterogeneous liver, transient. See above. This is nonspecific. 4. Heavy atherosclerosis. 5. Pelvic findings are nonprogressive including what may be a gas and fluid containing diverticulum in the left hemipelvis. 6. No acute findings are suggested otherwise. Chest X-Ray 05/11/19 00:00 IMPRESSION: Stable cardiomegaly. IMPRESSION/RECOMMENDATION: 1. Nosebleeds. This has resolved with stopping of the Eliquis. The patient would definitely need a ENT evaluation prior to restarting the patient's Eliquis.. Continue Plavix. 2. Abdominal pain: No severe pathology by EGD. Patient has intermittent nonspecific abdominal pain, which is mild. There is no nausea vomiting. The patient has been started on mesalamine. 3. CHRONIC DIASTOLIC HEART FAILURE: At present compensated. At present the patient's ejection fraction is normal. 4. ANEMIA: The patient is being transfused with blood today. 5. Paroxysmal atrial fibrillation: At present the patient is in sinus rhythm. 6. HYPERTENSION: Well controlled. Continue her current medications. 7. CORONARY ARTERY DISEASE: Prior history of myocardial infarction and history of coronary artery bypass graft surgery. No anginal symptoms. 8.but would recommend since the patient is not a good historian to get a IV Lexiscan Cardiolite stress test later.. 9. NONCOMPLIANCE.: The importance of compliance with diet and medications stressed with the patient. 10. CHRONIC OBSTRUCTIVE PULMONARY DISEASE: Continue current inhalers. 11. PERIPHERAL ARTERIAL DISEASE.: Patient with nonhealing ulcers of her both feet./Heels. 12. OBSTRUCTIVE SLEEP APNEA we will continue the patient on CPAP and continue the patient's Symbicort and Advair Diskus. 13.. DIABETES MELLITUS with peripheral arterial disease. Stable. . 14. Obesity. Medications reviewed. Medical regimen and management plan discussed with Dr. Dixon. Medical decision making is of moderate complexity. 40 minutes spent on this patient with more than 50% of time spent in direct patient care. Will sign off and have the patient follow-up with me in the office. The patient given my contact numbers.. Discussed with Dr. Moffett
[2019-05-17] MEDS: PANTOPRAZOLE SODIUM 40 MG TABLET.DR PO SCH (05:15)
[2019-05-17] MEDS: SUCRALFATE 1 GM TABLET PO SCH (05:16)
[2019-05-17] MEDS: GABAPENTIN 300 MG CAPSULE PO SCH (05:16)
[2019-05-17] MEDS: INSULIN LISPRO 100 UNIT/ML 3 ML VIAL SUBCUT SCH (08:42)
[2019-05-17] MEDS: ASCORBIC ACID 500 MG TABLET PO SCH (10:03)
[2019-05-17] MEDS: FUROSEMIDE 40 MG TABLET PO SCH (10:03)
[2019-05-17] MEDS: AMLODIPINE BESYLATE 10 MG TABLET PO SCH (10:03)
[2019-05-17] MEDS: MESALAMINE 400 MG CAPSULE.DR PO SCH (10:03)
[2019-05-17] MEDS: FERROUS SULFATE 325 MG TABLET PO SCH (10:03)
[2019-05-17] MEDS: MULTIVITAMIN TABLET PO SCH (10:04)
[2019-05-17] MEDS: ESCITALOPRAM OXALATE 10 MG TABLET PO SCH (10:04)
[2019-05-17] MEDS: CLOPIDOGREL BISULFATE 75 MG TABLET PO SCH (10:04)
[2019-05-17] MEDS: VALSARTAN 160 MG TABLET PO SCH (10:04)
[2019-05-17 10:31] VITALS: BP 128/76
== END 2019-05-17 11:45 | disposition home health service (06) | DRG 291 ==
LOC: ER 05:52 → EH 11:55 → 3W 15:28
PROVIDERS: ADMIT Internal Medicine Geriatric Medicine; ATTEND Internal Medicine Geriatric Medicine
PROC: 02H633Z Insertion of Infusion Device into Right Atrium, Percutaneous Approach (ICD-10-PCS; principal; 2019-04-30)
PROC: 0DB78ZX Excision of Stomach, Pylorus, Via Natural or Artificial Opening Endoscopic, Diagnostic (ICD-10-PCS; 2019-05-08)
PROC: 30233N1 Transfusion of Nonautologous Red Blood Cells into Peripheral Vein, Percutaneous Approach (ICD-10-PCS; 2019-05-14)
DX: I11.0 Hypertensive heart disease with heart failure (principal); L89.624 Pressure ulcer of left heel, stage 4; L02.612 Cutaneous abscess of left foot; N39.0 Urinary tract infection, site not specified; I50.43 Acute on chronic combined systolic (congestive) and diastolic (congestive) heart failure; K29.70 Gastritis, unspecified, without bleeding; D64.9 Anemia, unspecified; I25.10 Atherosclerotic heart disease of native coronary artery without angina pectoris; E87.5 Hyperkalemia; R04.0 Epistaxis; E11.65 Type 2 diabetes mellitus with hyperglycemia; I48.0 Paroxysmal atrial fibrillation; G47.33 Obstructive sleep apnea (adult) (pediatric); J44.9 Chronic obstructive pulmonary disease, unspecified; E78.00 Pure hypercholesterolemia, unspecified; I73.9 Peripheral vascular disease, unspecified; I25.2 Old myocardial infarction; Z86.73 Personal history of transient ischemic attack (TIA), and cerebral infarction without residual deficits; Z95.1 Presence of aortocoronary bypass graft; Z95.5 Presence of coronary angioplasty implant and graft; Z79.01 Long term (current) use of anticoagulants; Z79.4 Long term (current) use of insulin; Z79.899 Other long term (current) drug therapy; Z79.891 Long term (current) use of opiate analgesic; Z91.19 Patient's noncompliance with other medical treatment and regimen
CPT/HCPCS: 36415; 36430; 43239; 51702; 71045; 74177; 80048; 80053; 80061; 80076; 81001; 82272; 82550; 82553; 82607; 82728; 82746; 82803; 82962; 83036; 83540; 83550; 83690; 83735; 83880; 84439; 84443; 84484; 85025; 85045; 85610; 85730; 86850; 86900; 86901; 86920; 87086; 88305; 88342; 93005; 93010; 96374; 99285; C1751; C9113; J0171; J0696; J1200; J1610; J1642; J1815; J1940; J2250; J2310; J2405; J3010; J3490; J7030; J7050; P9016